=== PATIENT | female | born 1995 | race Caucasian/White ===

== ENCOUNTER 2025-01-20 12:05 | Outpatient (REF) | payer BC, SELFPAY ==
[2025-01-24 11:08] LABS: Age Gdln ACOG Testing Note (.); HPV Aptima Negative (Negative); IGP, Aptima HPV, rfx 16/18,45 Note (.)
== END 2025-01-20 12:06 | disposition home or self-care (01) ==
LOC: LAB 12:05
PROVIDERS: Visit Provider Physician Assistant
DX: Z01.419 Encounter for gynecological examination (general) (routine) without abnormal findings (principal)
CPT/HCPCS: 87624; 88175

== ENCOUNTER 2025-04-05 16:43 | Outpatient (OUT) | payer BC, SELFPAY ==
--- OUTSIDE RECORDS SUMMARY | 2025-01-21 11:10 | XMS_ITS | Continuity of Care Document ---
Author Organization [facility] Address [address] [place] [address] Phone Care Team Providers Care Hat Model Name Role Phone Miguel Rios Unavailable Unavailable [...] Diagnoses Date Provider Providers Copied on Encounter [facility], [address] [place] [address], [id number] , [place] tel: [phone] [facility] No Information 5 Visci DO Rivera. [address] [place] [address], [id number] , [place]. tel: [phone] [facility], [address] [place] [address], [id number] , [place] tel: [phone] [facility] Encounter for screening for respiratory tuberculosis 5 Visci DO Miguel. [address] [place] [address], [id number] , [place]. tel:+ [phone] [facility], [address] [place] [address], [id number] , [place] tel: [phone] [facility] No Information 4 Visci DO Miguel. [address] [place] [address], [id number] , [place]. tel: [phone] [facility], [address] [place] [address], [id number] , [place] tel:+ [phone] [facility] Lab Draw (chief complaint) Other specified disorders of pancreatic internal secretionSubclinical iodine-deficiency hypothyroidismEncount er for screening for other viral diseasesEncounter for screening for other infectious disease 4 Cynthia White. [address] [place], [place], [id number] , [place]. tel: [phone] [facility], [address] [place] [address], [place], [id number] , [place] tel: [phone] [facility] lab draw (chief complaint) Encounter for screening for other viral diseases 4 Cynthia White. [address] [place], [place], [id number] , [place]. tel: [phone] [facility], [address] [place] [address], [place], [id number] , [place] tel: [phone] [facility] No Information 4 Cynthia White. [address] [place] [address], [place], [id number] , [place]. tel: [phone] [facility], [address] [place] [address], [place], [id number] , [place] tel: [phone] [facility] Encounter for screening for respiratory tuberculosis 4 Cynthia White. [address] [place], [place], [id number] , [place]. tel: [phone] [facility], [address] [place] [address], [place], [id number] , [place] tel: [phone] [facility] Lab draw (chief complaint) Blood test prior to procedure 4 Cynthia White. [address] [place], [place], [id number] , [place]. tel: [phone] Referring Provider: Tenisha Leon [place]. [facility], [address] [place] [address], [place], [id number] , [place] tel: [phone] [facility] No Information 3 Cynthia White. [address] [place] [address], [place], [id number] , [place]. tel: [phone] [facility], [address] [place] [address], [place], [id number] , [place] tel: [phone] [facility] COVID Test (chief complaint) Encounter for screening for COVID-19 3 Cynthia White. [address] [place], [place], [id number] , [place]. tel: [phone] [facility], [address] [place] [address], [place], [id number] , [place] tel: [phone] [facility] Lab Draw (chief complaint) Encounter for antibody response examination 3 Cynthia White. [address] [place] [address], [place], [id number] , [place]. tel: [phone] [facility], [address] [place] [address], [id number] , [place] tel: [phone] [facility] lab (chief complaint) Other specified disorders of pancreatic internal secretion 3 Cynthia White. [address] [place], [place], [id number] , [place]. tel: [phone] [facility], [address] [place] [address], [id number] , [place] tel: [phone] [facility] Lab draw (chief complaint) Blood test prior to procedure 3 Cynthia White. [address] [place], [place], [id number] , [place]. tel: [phone] [facility], [address] [place] [address], [id number] , [place] tel: [phone] [facility] lab draw (chief complaint) Endocrine disorder 3 Cynthia White. [address] [place], [place], [id number] , [place]. tel: [phone] [facility], [address] [place] [address], [id number] , [place] tel: [phone] [facility] Encounter for screening for COVID-19 3 Visci DO Miguel. [address] [place] [address], [place], [id number] , [place]. tel: [phone] [facility], [address] [place] [address], [place], [id number] , [place] tel: [phone] [facility] Lab draw (chief complaint) Blood test prior to procedureEncounter for screening for COVID-19 3 Visci DO Miguel. [address] [place], [place], [id number] , [place]. tel: [phone] [facility], [address] [place] [address], [place], [id number] , [place] tel: [phone] [facility] No Information 3 Visci DO Miguel. [address] [place], [place], [id number] , [place]. tel: [phone] [facility], [address] [place] [address], [place], [id number] , [place] tel: [phone] [facility] No Information 3 Visci DO Miguel. [address] [place], [place], [id number] , [place]. tel: [phone] [facility], [address] [place] [address], [place], [id number] , [place] tel: [phone] [facility] No Information 2 Visci DO Miguel. [address] [place], [place], [id number] , [place]. tel: [phone] [facility], [address] [place], [place], [id number] , [place] tel: [phone] [facility] No Information 2 Visci DO Miguel. [address] [place], [place], [id number] , [place]. tel: [phone] [facility], [address] [place] [address], [place], [id number] , [place] tel: [phone] [facility] No Information 2 Visci DO Miguel. [address] [place], [place], [id number] , [place]. tel: [phone] [facility], [address] [place] [address], [place], 185153230 , [place] tel: [phone] [facility] Encounter for screening for respiratory tuberculosis 2 Visci DO Miguel. [address] [place], [place], [id number] , [place]. tel: [phone] [facility], [address] [place] [address], [place], 238808845 , [place] tel: [phone] [facility] Encounter for screening for respiratory tuberculosis 2 Visci DO Miguel. [address] [place], [place], 727342417 , [place]. tel: [phone] [facility], [address] [place] [address], [place], 349008380 , [place] tel: [phone] [facility] Encounter for screening for respiratory tuberculosis 2 Visci DO Miguel. [address] [place], [place], [id number] , [place]. tel: [phone] [facility], [address] [place], [place], 442322803 , [place] tel: [phone] [facility] No Information 1 Visci DO Miguel. [address] [place], [place], [id number] , [place]. tel: [phone] [facility], [address] [place] [address], [place], 323661321 , [place] tel: [phone] [facility] No Information 1 Visci DO Miguel. [address] [place], [place], [id number] , [place]. tel: [phone] [facility], [address] [place], [place], 245593058 , [place] tel: [phone] [facility] No Information 1 Visci DO Miguel. [address] [place], [place], [id number] , [place]. tel:[phone] Family History Family Member Type Diagnosis Age [...] Record Payers Payer name Insurance type Covered republican ID Authoriza tion(s) [place] [employer] [id number] [place] [employer] [id number] [place] [employer] [id number] [place] [employer] [id number] [place] [employer] [id number] [place] [employer] [id number] [place] [employer] [id number] Social History Type Description Quantity Date Captured [...] on due Goal PRAPARE ASSESSMENT. Due on J due Goal Tdap due Goal Hepatitis C [...] 2031 due Goal Influenza vaccine. Due on Ne due Goal Hepatitis C screening. Due o [...] PRAPARE ASSESSMENT. Due on N due Goal Depression screening. Due on due Goal Tdap due Goal Influenza vaccine. Due on Se due Goal Hep A. Due on du e Goal RLP. Due on due Goal Tdap Vaccine. Due on 2031 due Goal PRAPARE ASSESSMENT. Due on S due Goal PRAPARE ASSESSMENT. Due on S [...] du e Goal Tdap due Goal Tdap Vaccine. Due [...] Goal Tdap due Goal Tdap due Goal PAP. Due on due Goal PRAPARE ASSESSMENT. Due on due Goal Depression screening. Due on due Goal Hep A. Due on du e Goal Influenza vaccine. Due on Ne y due Goal RLP. Due on due [...] on du e Goal Tdap due Goal PRAPARE ASSESSMENT. Due on due Goal PAP. Due on due Goal Influenza vaccine. Due on Ne due Goal RLP. Due on due Goal PAP. Due on due Goal Tdap due Goal Depression screening. Due on due Goal Influenza vaccine. Due on [place] due Goal RLP. Due on due Goal [...]
--- OUTSIDE RECORDS SUMMARY | 2025-01-21 11:10 | XMS_ITS | Continuity of Care Document ---
Author Organization [facility] Address [address] [place] [address] Phone Care Team Providers Care Diversity Intern Name Role Phone Miguel Rios Unavailable Unavailable [...] Diagnoses Date Provider Providers Copied on Encounter [facility], [address] [place] [address], [id number] , [place] tel: [phone] [facility] No Information 5 Visci DO Rivera. [address] [place] [address], [id number] , [place]. tel: [phone] [facility], [address] [place] [address], [id number] , [place] tel: [phone] [facility] Encounter for screening for respiratory tuberculosis 5 Visci DO Miguel. [address] [place] [address], [id number] , [place]. tel:[phone] [facility], [address] [place] [address], [id number] , [place] tel: [phone] [facility] No Information 4 Visci DO Miguel. [address] [place] [address], [id number] , [place]. tel: [phone] [facility], [address] [place] [address], [id number] , [place] tel:[phone] [facility] Lab Draw (chief complaint) Other specified disorders of pancreatic internal secretionSubclinical iodine-deficiency hypothyroidismEncount er for screening for other viral diseasesEncounter for screening for other infectious disease 4 Cynthia White. [address] [place], [place], 924344060 , [place]. tel: [phone] [facility], [address] [place], [place], 496862772 , [place] tel: [phone] [facility] lab draw (chief complaint) Encounter for screening for other viral diseases 4 Cynthia White. [address] [place], [place], 793173382 , [place]. tel: [phone] [facility], [address] [place], [place], 531591823 , [place] tel: [phone] [facility] No Information 4 Cynthia White. [address] [place], [place], 725586852 , [place]. tel: [phone] [facility], [address] [place], 895804866 , [place] tel: [phone] [facility] Encounter for screening for respiratory tuberculosis 4 Cynthia White. [address] [place], [place], 718688754 , [place]. tel: [phone] [facility], [address] [place], [place], 466957578 , [place] tel: [phone] [facility] Lab draw (chief complaint) Blood test prior to procedure 4 Cynthia White. [address] [place], [place], 612717811 , [place]. tel: [phone] Referring Provider: Tenisha Leon SC. [facility], [address] [place], [place], 211239906 , [place] tel: [phone] [facility] No Information 3 Cynthia White. [address] [place], [place], 061649008 , [place]. tel: [phone] [facility], [address] [place], [place], 210802641 , [place] tel: [phone] [facility] COVID Test (chief complaint) Encounter for screening for COVID-19 3 Cynthia White. [address] [place], [place], 406197976 , [place]. tel: [phone] [facility], [address] [place], [place], 633390523 , [place] tel: [phone] [facility] Lab Draw (chief complaint) Encounter for antibody response examination 3 Cynthia White. [address] [place], [place], 216314383 , [place]. tel: [phone] [facility], [address] [place] [address], [id number] , [place] tel: [phone] [facility] lab (chief complaint) Other specified disorders of pancreatic internal secretion 3 Cynthia White. [address] [place], [place], 576709539 , [place]. tel: [phone] [facility], [address] [place] [address], [id number] , [place] tel: [phone] [facility] Lab draw (chief complaint) Blood test prior to procedure 3 Cynthia White. [address] [place], [place], 192727730 , [place]. tel: [phone] [facility], [address] [place] [address], [id number] , [place] tel: [phone] [facility] lab draw (chief complaint) Endocrine disorder 3 Cynthia White. [address] [place], [place], 209146482 , [place]. tel: [phone] [facility], [address] [place] [address], [id number] , [place] tel: [phone] [facility] Encounter for screening for COVID-19 3 Visci DO Miguel. [address] [place], [place], 679160281 , [place]. tel: [phone] [facility], [address] [place], [place], 722112866 , [place] tel: [phone] [facility] Lab draw (chief complaint) Blood test prior to procedureEncounter for screening for COVID-19 3 Visci DO Miguel. [address] [place], [place], 843816647 , [place]. tel: [phone] [facility], [address] [place], 774334966 , [place] tel: [phone] [facility] No Information 3 Visci DO Miguel. [address] [place], [place], 697328475 , [place]. tel: [phone] [facility], [address] [place], [place], 286540499 , [place] tel: [phone] [facility] No Information 3 Visci DO Miguel. [address] [place], [place], 011240886 , [place]. tel: [phone] [facility], [address] [place], [place], 368686486 , [place] tel: [phone] [facility] No Information 2 Visci DO Miguel. [address] [place], 935662333 , [place]. tel: [phone] [facility], [address] [place], [place], 018784270 , [place] tel: [phone] [facility] No Information 2 Visci DO Miguel. [address] [place], [place], 388967455 , [place]. tel: [phone] [facility], [address] [place], [place], 142141561 , [place] tel: [phone] [facility] No Information 2 Visci DO Miguel. [address] [place], [place], 679092795 , [place]. tel: [phone] [facility], [address] [place], [place], 763792522 , [place] tel: [phone] [facility] Encounter for screening for respiratory tuberculosis 2 Visci DO Miguel. [address] [place], [place], 709813526 , [place]. tel: [phone] [facility], [address] [place], [place], 020613532 , [place] tel: [phone] [facility] Encounter for screening for respiratory tuberculosis 2 Visci DO Miguel. [address] [place], [place], 941817310 , [place]. tel: [phone] [facility], [address] [place], [place], 066222551 , [place] tel: [phone] [facility] Encounter for screening for respiratory tuberculosis 2 Visci DO Miguel. [address] [place], [place], 535855559 , [place]. tel: [phone] [facility], [address] [place], [place], 127124955 , [place] tel: [phone] [facility] No Information 1 Visci DO Miguel. [address] [place], [place], 251539379 , [place]. tel: [phone] [facility], [address] [place], 770178493 , [place] tel: [phone] [facility] No Information 1 Visci DO Miguel. [address] [place], [place], 040298884 , [place]. tel: [phone] [facility], [address] [place], [place], 924961258 , [place] tel: [phone] [facility] No Information 1 Visci DO Miguel. [address] [place], [place], 115794375 , [place]. tel:[phone] Family History Family Member Type Diagnosis Age [...] Record Payers Payer name Insurance type Covered constitution party ID Authoriza tion(s) [place] [id number] [place] [employer] [id number] [place] [employer] [id number] [place] [employer] [id number] [place] [id number] [place] [id number] [place] [employer] [id number] Social History Type Description Quantity Date Captured [...] du e Goal Influenza vaccine. Due on [place] due Goal Unhealthy drug use screening . [...] du e Goal Influenza vaccine. Due on Id y due Goal RLP. Due on due Goal Tdap Vaccine. Due on 2031 due Goal PAP. Due on due Goal Influenza vaccine. Due on Id r due Goal Depression screening. Due on due Goal Tdap due Goal PRAPARE ASSESSMENT. Due on due Goal Hep A. Due on du e Goal RLP. Due on due Goal Tdap Vaccine. Due on 2031 due Goal Influenza vaccine. Due on Id due Goal Tdap due Goal PRAPARE ASSESSMENT. [...] on due Goal Influenza vaccine. Due on Md due Goal RLP. Due on due Goal [...]
--- OUTSIDE RECORDS SUMMARY | 2025-01-21 11:10 | XMS_ITS | Continuity of Care Document ---
Author Organization [facility] Address [address] [place] [address] Phone Care Team Providers Care Flooring Salesperson Name Role Phone Miguel Rios Unavailable Unavailable [...] Diagnoses Date Provider Providers Copied on Encounter [facility], [address] [place] [address], [id number] , [place] tel: [phone] [facility] No Information 5 Visci DO Rivera. [address] [place] [address], [id number] , [place]. tel: [phone] [facility], [address] [place] [address], [id number] , [place] tel: [phone] [facility] Encounter for screening for respiratory tuberculosis 5 Visci DO Miguel. [address] [place] [address], [id number] , [place]. tel:[phone] [facility], [address] [place] [address], [id number] , [place] tel: [phone] [facility] No Information 4 Visci DO Miguel. [address] [place] [address], [id number] , [place]. tel: [phone] [facility], [address] [place] [address], [id number] , [place] tel:+ [phone] [facility] Lab Draw (chief complaint) Other specified disorders of pancreatic internal secretionSubclinical iodine-deficiency hypothyroidismEncount er for screening for other viral diseasesEncounter for screening for other infectious disease 4 Cynthia White. [address] [place], [place], 605362631 , [place]. tel: [phone] [facility], [address] [place], [place], 331331946 , [place] tel: [phone] [facility] lab draw (chief complaint) Encounter for screening for other viral diseases 4 Cynthia White. [address] [place], [place], 600143237 , [place]. tel: [phone] [facility], [address] [place], [place], 628941169 , [place] tel: [phone] [facility] No Information 4 Cynthia White. [address] [place], [place], 757389497 , [place]. tel: [phone] [facility], [address] [place], [place], 531535189 , [place] tel: [phone] [facility] Encounter for screening for respiratory tuberculosis 4 Cynthia White. [address] [place], [place], 065528589 , [place]. tel: [phone] [facility], [address] [place], [place], [id number] , [place] tel: [phone] [facility] Lab draw (chief complaint) Blood test prior to procedure 4 Cynthia White. [address] [place], [place], [id number] , [place]. tel: [phone] Referring Provider: Tenisha Leon PA. [facility], [address] [place], [place], [id number] , [place] tel: [phone] [facility] No Information 3 Cynthia White. [address] [place], [place], [id number] , [place]. tel: [phone] [facility], [address] [place], [place], 869146491 , [place] tel: [phone] [facility] COVID Test (chief complaint) Encounter for screening for COVID-19 3 Cynthia White. [address] [place], [place], 772092238 , [place]. tel: [phone] [facility], [address] [place], [place], [id number] , [place] tel: [phone] [facility] Lab Draw (chief complaint) Encounter for antibody response examination 3 Cynthia White. [address] [place], [place], [id number] , [place]. tel: [phone] [facility], [address] [place] [address], [id number] , [place] tel: [phone] [facility] lab (chief complaint) Other specified disorders of pancreatic internal secretion 3 Cynthia White. [address] [place], [place], [id number] , [place]. tel: [phone] [facility], [address] [place] [address], [id number] , [place] tel: [phone] [facility] Lab draw (chief complaint) Blood test prior to procedure 3 Cynthia White. [address] [place], [place], 616832752 , [place]. tel: [phone] [facility], [address] [place] [address], [id number] , [place] tel: [phone] [facility] lab draw (chief complaint) Endocrine disorder 3 Cynthia White. [address] [place], [place], 763333203 , [place]. tel: [phone] [facility], [address] [place] [address], [id number] , [place] tel: [phone] [facility] Encounter for screening for COVID-19 3 Visci DO Miguel. [address] [place], [place], [id number] , [place]. tel: [phone] [facility], [address] [place], [place], 798827490 , [place] tel: [phone] [facility] Lab draw (chief complaint) Blood test prior to procedureEncounter for screening for COVID-19 3 Visci DO Miguel. [address] [place], [place], 737995926 , [place]. tel: [phone] [facility], [address] [place], [place], [id number] , [place] tel: [phone] [facility] No Information 3 Visci DO Miguel. [address] [place], [place], 219332205 , [place]. tel: [phone] [facility], [address] [place], [place], 000224806 , [place] tel: [phone] [facility] No Information 3 Visci DO Miguel. [address] [place], [place], 492338505 , [place]. tel: [phone] [facility], [address], [place], 838425815 , [place] tel: [phone] [facility] No Information 2 Visci DO Miguel. [address] [place], [place], [id number] , [place]. tel: [phone] [facility], [address] [place], [place], 913302540 , [place] tel: [phone] [facility] No Information 2 Visci DO Miguel. [address] [place], [place], 418948639 , [place]. tel: [phone] [facility], [address] [place], [place], 732525772 , [place] tel: [phone] [facility] No Information 2 Visci DO Miguel. [address] [place], [place], [id number] , [place]. tel: [phone] [facility], [address] [place], [place], 463305119 , [place] tel: [phone] [facility] Encounter for screening for respiratory tuberculosis 2 Visci DO Miguel. [address] [place], [place], [id number] , [place]. tel: [phone] [facility], [address] [place], [place], 782687248 , [place] tel: [phone] [facility] Encounter for screening for respiratory tuberculosis 2 Visci DO Miguel. [address] [place], [place], [id number] , [place]. tel: [phone] [facility], [address] [place], [place], 168484157 , [place] tel: [phone] [facility] Encounter for screening for respiratory tuberculosis 2 Visci DO Miguel. [address] [place], [place], [id number] , [place]. tel: [phone] [facility], [address] [place], [place], 995971917 , [place] tel: [phone] [facility] No Information 1 Visci DO Miguel. [address] [place], [place], [id number] , [place]. tel: [phone] [facility], [address] [place], [place], 354074558 , [place] tel: [phone] [facility] No Information 1 Visci DO Miguel. [address] [place], [place], 623405442 , [place]. tel: [phone] [facility], [address] [place], [place], 940042754 , [place] tel: [phone] [facility] No Information 1 Visci DO Miguel. [address] [place], [place], [id number] , [place]. tel:[phone] Family History Family Member Type Diagnosis Age [...] Insurance type Covered libertarian ID Authoriza tion(s) Mila Doce BL [id number] Mila Doce BL [id number] Mila Doce BL [id number] Mila Doce BL [id number] Mila Doce BL [id number] Mila Doce BL [id number] Mila Doce BL [id number] Social History Type Description Quantity Date Captured [...] du e Goal Influenza vaccine. Due on Mt due Goal Unhealthy drug use screening . [...] du e Goal Influenza vaccine. Due on Mt y due Goal RLP. Due on due Goal Tdap Vaccine. Due on 2031 due Goal PAP. Due on due Goal Influenza vaccine. Due on Mt r due Goal Depression screening. Due on due Goal Tdap due Goal PRAPARE ASSESSMENT. Due on due Goal Hep A. Due on du e Goal RLP. Due on due Goal Tdap Vaccine. Due on 2031 due Goal Influenza vaccine. Due on Mt due Goal Tdap due Goal PRAPARE ASSESSMENT. [...]
--- OUTSIDE RECORDS SUMMARY | 2025-03-30 08:50 | XMS_ITS | Encounter Summary ---
Author Organization [facility] Address [address] [facility] [place] [address] Care Team Providers Care Intelligence Director Name Role Phone Unavailable Primary Care Provider Unavailabl e Reason for Visit * Reason Comments Routine Visit Encounter Details Date Type Department Care Team (Latest Contact Info) Description 03/30/2025 8:50 AM EDT Routine [facility] [address] [facility] [place] [phone] Christy Schwartz PA [address] [facility] [address] [place], [place] [address] Second trimester ; 27 weeks gestation of [...] this encounter Progress Notes * Belgica Scherer INTERNET MARKETING SPECIALIST - 03/30/2025 8:50 AM EDT Reason for Appointment: Patient ID: Kevin Conley is a 29 y.o. female who presents for Routine Visit Patient presents today for Return OB appointment. MEDICATIONS Current Outpatient Medications Medication Instructions Alcohol Swabs (Alcohol Prep Pad) 70 % pads 1 Pad, Topical, Daily, Use four times daily to check FSBS. Blood Glucose Monitoring Suppl ([employer] Glucometer) w/Device kit 1 kit, Does not [...] EDT Routine [facility] [address] [place] [address] Cain Donaldson, DO [address] [place] [address] Scheduled Orders Name Type Priority Associated Diagnoses [...]
--- OUTSIDE RECORDS SUMMARY | 2025-03-30 13:30 | XMS_ITS | Encounter Summary ---
Author Organization [facility] [employer] [facility] Address [id number] [address] [place] [address] Care Team Providers Care Theater Projectionist Name Role Phone Unavailable Primary Care Provider Unavailabl e Reason for Referral * Medication Prior Authorization - Closed Specialty Diagnoses / Procedures Referred By Contgonzalez t Referred To Contact Diagnoses Insulin controlled gestational diabetes mellitus (GDM) in second trimester Prediabetes in mother during Sintia Martinez APRN-CNP [address] [place] [address] Phone: tel: fax: Referral ID Status Reason Start Date Expiration Date Visits Re quested Visits Authorized [id number] Closed 1 1 Encounter Details Date Type Department Care Team (Late st Contact Info) Description 03/30/2025 1:30 PM EDT Telemedicine Maternal- Medicine at [facility] [address] [place] [address] Sintia Martinez APRN-CNP [address] [place] [address] Insulin controlled gestational diabetes mellitus (GDM) in [...] this encounter Progress Notes * Sintia Martinez, UMM-GLAZE MIXER - 03/30/2025 1:30 PM EDT REASON FOR OFFICE VISIT: Video Visit via Real-time Synchronous Audiovisual Provider Location: [facility]- MEDICINE AT [address] [phone] Patient Location: Patient's home Video Visit Consent [...] that there are some limitations compared to tpxs-qi-kpab evaluations. The patient consented to the presence [...] each meal., Disp: , Rfl: blood-glucose meter [facility], 4 (four) times a day. Use to [...] route., Disp: , Rfl: lancets (LANCETS,ULTRA THIN) [facility], Use to check blood sugar 4 times daily. Fasting in the morning, and 1 hour after each meal., Disp: , Rfl: PNV no.153/FA/om3/dha/epa/fish ( GUMMIES ORAL), Take 2 tablets by mouth in the morning., Disp: , Rfl: LABS: Lab Results Component Value Date CREATININE 0.73 01/06/2016 Lab Results Component Value Date TSH 3.31 11/24/2020 No results found for: [id number] Lab Results Component Value Date CREATININE 0.73 [...] [email or web address] or by fax to: [phone] TIME OF CONSULTATION: 15 minutes with the patient, >50% in discussion and counseling, coordination of care which was [id number], review of records and communication back to referring provider. HOWARD Whitman 03/30/25 1344 documented in this encounter Plan of Treatment Upcoming Encounters Date Type Department Care Team (Late st Contact Info) Description 04/14/2025 8:00 AM EDT Appointment Maternal Medicine [place] [address] [facility] 4 [place] [address] 04/25/2025 11:30 AM EDT Telemedicine Maternal- Medicine at [facility] [place] [address] [place] [address] Devika Pulido PA-C [address] [address] documented as of this encounter Visit Diagnoses Diagnosis Insulin controlled gestational diabetes mellitus (GDM) in second trimester- Primary Recurrent major depressive disorder, in partial remission Prediabetes in mother during documented in this encounter Additional Health Concerns Assessment Noted Time PHQ-9 Depression Total Score: 2 07/03/20 16 9:00 AM EDT documented as of this encounter
--- OUTSIDE RECORDS SUMMARY | 2025-04-05 16:49 | XMS_ITS | Encounter Summary ---
Author Organization [employer] [facility] tem Address [id number] [address] [place] [address] Care Team Providers Care Field Sales Trainer Name Role Phone Unavailable Primary Care Provider Unavailabl e Encounter Details Date Type Department Care Team (Latest Contact Info) Description 03/30/2025 Travel Social History Tobacco Use Types Packs/Day Years [...] on file documented as of this encounter Plan of Treatment Upcoming Encounters Date Type Department Care Team (Late st Contact Info) Description 04/14/2025 8:00 AM EDT Appointment Maternal Medicine [place] [address] [facility] [address] [place] [address] 04/25/2025 11:30 AM EDT Telemedicine Maternal- Medicine at [facility] [address] [place] [phone] Devika Pulido, JASON [address] [address] documented as of this encounter Visit Diagnoses Not on filedocumented in this encounter Additional Health Concerns Assessment Noted Time PHQ-9 Depression Total Score: 2 07/03/20 16 9:00 AM EDT documented as of this encounter
--- OUTSIDE RECORDS SUMMARY | 2025-04-05 16:49 | XMS_ITS | Encounter Summary ---
Author Organization [facility] Address [address] [place] [address] Care Team Providers Care Molding Machine Setter Name Role Phone Unavailable Primary Care Provider Unavailabl e Encounter Details Date Type Department Care Team (Late st Contact Info) Description 11/12/2024 Abstract [facility] [address] [facility] [place] [phone] Cain Donaldson DO [address] [place] [address] Karin rPieto, [facility]11 Social History Tobacco Use Types Packs/Day Years Used Date Smoking Tobacco: Never Assessed Comments Unknown Sex and Gender Information Value Date Recorded Sex Assigned at Female 11/24/2024 3:01 PM EST Legal Sex Female 10:22 AM EST Gender Identity Female 11/24/2024 3:01 PM EST Sexual Orientation Not on file documented as of this encounter Plan of Treatment Upcoming Encounters Date Type Department Care Team (Late st Contact Info) Description 04/18/2025 10:10 AM EDT Routine [facility] [address] [facility] [place] [phone] Cain Donaldson, [address] [place] [address] documented as of this encounter Visit Diagnoses Not on filedocumented in this encounter
--- OUTSIDE RECORDS SUMMARY | 2025-04-05 16:49 | XMS_ITS | Encounter Summary ---
Author Organization [facility] Address [address] [facility] [place] [address] Care Team Providers Care Senior Electronics Design Engineer Name Role Phone Unavailable Primary Care Provider Unavailabl e Encounter Details Date Type Department Care Team (Late Contact Info) Description 03/30/2025 Bamboo flowsheet [facility] [address] [place] [address] [place] [phone] Christy Schwartz PA [address] [place] [address] Dr [place], [facility] Social History Tobacco Use Types Packs/Day Years [...] Encounters Date Type Department Care Team (Late Contact Info) Description 04/18/2025 10:10 AM EDT Routine [facility] [address] [facility] [address] Cain Donaldson DO [address] [place] [address] Dr [place], [place] [id number] documented as of this encounter Goals Goal Patient Goal Type Associated Problems Recent Progress Patient-Stated? Author Reminders Care Plan OB Reminders No Open Scheduling, Background documented as of this encounter Visit Diagnoses Not on filedocumented in this encounter Additional Health Concerns Active Problems Noted Date Diagnosed Date OB Reminders 11/26/2024 documented as of this encounter
--- OUTSIDE RECORDS SUMMARY | 2025-04-05 16:49 | XMS_ITS | Encounter Summary ---
Author Organization [facility] Address [address] [place] [address] Care Team Providers Care Copy Lathe Tender Name Role Phone Unavailable Primary Care Provider Unavailabl e Encounter Details Date Type Department Care Team (Late Contact Info) Description 01/10/2025 Abstract [facility] [address] [facility] [place] [phone] Cain Donaldson DO [address] [place] [address] Karin [place], [place] [id number] Social History Tobacco Use Types Packs/Day Years [...] AM EDT Routine [facility] [address] [facility] [place] [phone] Cain Donaldson DO [facility] [address] [place], [place] [id number] documented as of this encounter Goals Goal Patient Goal Type Associated Problems Recent Progress Patient-Stated? Author Reminders Care Plan OB Reminders No Open Scheduling, Background documented as of this encounter Visit Diagnoses Not on filedocumented in this encounter Additional Health Concerns Active Problems Noted Date Diagnosed Date OB Reminders 11/26/2024 documented as of this encounter
--- OUTSIDE RECORDS SUMMARY | 2025-04-05 16:49 | XMS_ITS | Clinical Summary ---
Author Organization [facility] Address [address] [place] [address] Care Team Providers Care Kickboxing Instructor Name Role Phone Unavailable Primary Care Provider Unavailabl e Encounters Date Type Department Care Team Description 02/08/2025 6:04 PM EDT - 02/08/2025 11:59 PM EDT Hospital Encounter [facility] [address] [place] [address] Discharge Disposition: Home or Self Care from Last 3 Months Social History Tobacco Use Types Packs/Day Years Used Date Smoking Tobacco: Never Assessed Comments Unknown Sex and Gender Information Value Date Recorded Sex Assigned at Not on file Legal Sex Female 6:18 PM EST Gender Identity Not on file Sexual Orientation Not on file Plan of Treatment Health Maintenance Due Date Last Done Comments Depression Screen 2005 Varicella vaccine (1 of 2 - 13+ 2-dose series) 2006 DTaP/Tdap/Td vaccine (1 - Tdap) 2012 Hepatitis B vaccine (1 of 3 - 19+ 3-dose series) 2012 Pap smear 2014 Cervical cancer screen 2023 HPV (without or with Pap) 2023 COVID-19 Vaccine ( - 2023-2 5 season) 2024 Flu vaccine (Season Ended) 2025 09/08/2023 HIV screen Completed 12/23/2024, 01/11/2021 Hepatitis C screen Completed 12/23/2024, 01/11/2021 HPV vaccine Aged Out No longer eligi ble based on patient's age to complete this topic Hepatitis A vaccine Aged Out No longe r eligible based on patient's age to complete this topic Hib vaccine Aged Out No longer eligi ble based on patient's age to complete this topic Meningococcal (ACWY) vaccine Aged Out No longer eligible based on patient's age to complete this topic Meningococcal B vaccine Aged Out No l onger eligible based on patient's age to complete this topic Pneumococcal 0-49 years Vaccine Aged Out No longer eligible b ased on patient's age to complete this topic Polio vaccine Aged Out No longer elig ible based on patient's age to complete this topic Procedures Procedure Name Priority Date/Time Associated Diagnosis Comments ALPHA FETOPROTEIN, MATERNAL Routine 02/08/2025 6:07 PM EDT HIV SCREEN Routine 12/23/2024 6:10 PM EST HEPATITIS C ANTIBODY Routine 12/23/2024 6:10 PM EST from Last 3 Months or Most Recently Relevant to Health Maintenance Results * Alpha Fetoprotein, Maternal (02/08/2025 6:07 PM EDT) Due Date SEE NOTE 02/08/2025 6:07 PM EDT [facility] Comment: Results for Estimated Due Date: 06 24 25 Determined by Other 02/08/2025 6:07 PM EDT [facility] AFP (Alpha Fetoprotein) 41 ng/mL 02/08/2025 6:07 PM EDT [facility] AFP Mom 0.85 02/08/2025 6:07 PM EDT [facility] AFP Interp Screen Neg 02/08/2025 6:07 PM EDT [facility] Comment: (NOTE) INTERPRETATION: SCREEN NEGATIVE for open spina bifida Neural Tube Defects (NTD) Negative Pre-Test Post-Test Cutoff Neural Tube Defects Risks 1:1030 < 1:24442 1:250 Comments: The risk of an open neural tube defect is less than the screening cut-off. This test was developed and its performance characteristics determined by [facility]. It has not been cleared or approved by the [place] Food and Drug Administration. This test was performed in a CLIA certified laboratory and is intended for clinical purposes. [age] 02/08/2025 6:07 PM EDT [facility] Patient Weight 231.0 lbs. 02/08/2025 6:07 PM EDT [facility] Gestational Age 20 wks, 4 days 02/08/2025 6:07 PM EDT [facility] Number of Fetuses Hernandes 025 6:07 PM EDT [facility] Race Nonblack 02/08/2025 6:07 PM EDT [facility] Insulin Req Diabetes No 02/08/2025 6:07 PM EDT [facility] Smoking No 02/08/2025 6:07 PM EDT [facility] History No 02/08/2025 6:07 PM EDT [facility] AFP Specimen See Note 02/08/2025 6:07 PM EDT [facility] Comment: (NOTE) Initial sample Performed By: [facility] [address] [place] [address] Letter Of Credit Document Examiner: Jose Joseph MD, PhD CLIA Number: [id number] 02/08/2025 6:07 PM EDT 02/08/2025 6:09 PM EDT Christy Schwartz PA-C CHEMISTRY ORDERABLES Final Resu lt [facility] [address] [place], [place] [id number] [place] [address] [facility] [address] [phone] * Hepatitis C Antibody (12/23/2024 6:10 PM EST) Hepatitis C Ab NONREACTIVE NONREACTIVE 12/23/19 6:10 PM EST [facility] Comment: The hepatitis C procedure used in our laboratory is a Chemiluminescent test specific for three recombinant HCV antigens. A negative anti-HCV result indicates that the antibodies to hepatitis C virus are not present at this time. Individuals with reactive anti-HCV should be considered infected and infectious until proven otherwise. Confirmation of all equivocal or reactive results is recommended by ordering HCV RNA by PCR. 12/23/2024 6:10 PM EST 12/23/2024 6:12 PM EST Cain Donaldson MD IMMUNOLOGY ORDERABLES Fin al Result Performing Organization Address City/[facility]/ZIP Co de Phone Number [facility] [address] [place] [address], [facility] [phone] [employer] [address] [place] [address], [facility] [phone] * HIV Screen (12/23/2024 6:10 PM EST) HIV Ag/Ab NONREACTIVE NONREACTIVE 12/23/2024 6:10 PM EST [employer] Comment: No laboratory evidence of HIV infection. If acute HIV infection is suspected, consider testing for HIV-1 RNA. 12/23/2024 6:10 PM EST 12/23/2024 6:12 PM EST Cain Donaldson MD IMMUNOLOGY ORDERABLES Fin al Result Performing Organization Address [facility] Co de Phone Number [facility] [address] [place] [address], [facility] [phone] [employer] [address] [place] [address], [facility] [phone] from Last 3 Months or Most Recently Relevant to Health Maintenance Insurance
--- OUTSIDE RECORDS SUMMARY | 2025-04-05 16:49 | XMS_ITS | Encounter Summary ---
Author Organization [facility] Address [address] [place] [address] Care Team Providers Care Arboreal Scientist Name Role Phone Unavailable Primary Care Provider [...] AM EDT Routine [facility] [address] [facility] [place] [phone] Cain Donaldson, DO [address] [facility] [place] [address] documented as of this encounter Goals Goal Patient Goal Type Associated Problems Recent Progress Patient-Stated? Author Reminders Care Plan OB Reminders No Open Scheduling, Background documented as of this encounter Visit Diagnoses Not on filedocumented in this encounter Additional Health Concerns Active Problems Noted Date Diagnosed Date OB Reminders 11/26/2024 documented as of this encounter
--- OUTSIDE RECORDS SUMMARY | 2025-04-05 16:49 | XMS_ITS | Encounter Summary ---
Author Organization [facility] Address [address] [place] [address] Care Team Providers Care Metal Washing Machine Operator Name Role Phone Unavailable Primary Care Provider Unavailabl e Encounter Details Date Type Department Care Team (Late Contact Info) Description 01/27/2025 Orders Only [facility] [address] [place] [phone] Damaris Lopez LPN [address] [employer] [facility] [place] [address] Social History Tobacco Use Types Packs/Day Years [...] AM EDT Routine [facility] [address] [place] [place] [phone] Cain Donaldson DO [address] [facility] [address] [place], [place] [phone] documented as of this encounter Goals Goal Patient Goal Type Associated Problems Recent Progress Patient-Stated? Author Reminders Care Plan OB Reminders No Open Scheduling, Background documented as of this encounter Procedures Procedure Name Priority Date/Time Associated Diagnosis Comments PAP SMEAR Routine 01/20/2025 12:00 AM EDT documented in this encounter Results * Pap Smear (01/20/2025 12:00 AM EDT) Swab Cervical swab / Unknown us [facility] Nurse LAB CYTOLOGY ORDERABLES Final Result [facility] documented in this encounter Visit Diagnoses Not on filedocumented in this encounter Additional Health Concerns Active Problems Noted Date Diagnosed Date OB Reminders 11/26/2024 documented as of this encounter
--- OUTSIDE RECORDS SUMMARY | 2025-04-05 16:49 | XMS_ITS | Encounter Summary ---
Author Organization [facility] tem Address [id number] [address] [place] [address] Care Team Providers Care Channeling Machine Runner Name Role Phone Unavailable Primary Care Provider Unavailabl e Encounter Details Date Type Department Care Team (Late st Contact Info) Description 02/17/2025 Orders Only Maternal- Medicine at [facility] [address] [place] [phone] Christy Prado LPN Insulin controlled gestational diabetes mellitus (GDM) in second trimester; Prediabetes in mother during ; 20 weeks gestation of ; Choroid plexus cyst of fetus affecting care of mother, antepartum, single or unspecified fetus; Heterozygous factor V Leiden affecting in second trimester, antepartum; Severe obesity due to excess calories affecting , antepartum ([facility]); Bipolar disorder, in full remission, most recent episode depressed Social History Tobacco Use Types Packs/Day Years [...] 04/14/2025 8:00 AM EDT Appointment Maternal Medicine [place] [address] [facility] [address] [place] [phone] 04/25/2025 11:30 AM EDT Telemedicine Maternal- Medicine at [facility] [address] [place] [phone] Devika Pulido PA-C [address] [address] documented as of this encounter Procedures Procedure Name Priority Date/Time Associated Diagnosis Comments UNLISTED LAB TEST Routine 02/08/2025 Insulin controlled gestational diabetes mellitus (GDM) in second trimester Prediabetes in mother during 20 weeks gestation of Choroid plexus cyst of fetus affecting care of mother, antepartum, single or unspecified fetus Heterozygous factor V Leiden affecting in second trimester, antepartum Severe obesity due to excess calories affecting , antepartum ([facility]) Bipolar disorder, in full remission, most recent episode depressed documented in this encounter Results * Unlisted Lab Test (02/08/2025) 02/08/2025 us Gricelda Chadwick MD LAB BLOOD ORDERABLES Final Resul t [facility] documented in this encounter Visit Diagnoses Diagnosis Insulin controlled gestational diabetes mellitus (GDM) in second trimester Prediabetes in mother during 20 weeks gestation of Choroid plexus cyst of fetus affecting care of mother, antepartum, single or unspecified fetus Heterozygous factor V Leiden affecting in second trimester, antepartum Severe obesity due to excess calories affecting , antepartum ([facility]) Bipolar disorder, in full remission, most recent episode depressed documented in this encounter Additional Health Concerns Assessment Noted Time PHQ-9 Depression Total Score: 2 07/03/20 16 9:00 AM EDT documented as of this encounter
--- OUTSIDE RECORDS SUMMARY | 2025-04-05 16:49 | XMS_ITS | Encounter Summary ---
Author Organization [facility] tem Address [id number] [address] [place] [address] Care Team Providers Care Systems Trainer Name Role Phone Unavailable Primary Care Provider Unavailabl e Encounter Details Date Type Department Care Team (Late Contact Info) Description 12/30/2024 Orders Only Maternal- Medicine at [facility] [address] [place] [address] Ref Prov, [place] [address] Social History Tobacco Use Types Packs/Day Years Used Date Smoking Tobacco: Former Cigarettes Smokeless Tobacco: Never Alcohol Use Standard Drinks/Week Comments Not Currently 0 (1 standard drink = 0.6 oz pur e alcohol) Socially Childcare Answer Date Recorded Childcare Unknown 04/13/2019 Employment Answer Date Recorded Employment Unknown 04/13/2019 Purpose - Life Answer Date Recorded Purpose [...] 04/14/2025 8:00 AM EDT Appointment Maternal Medicine [place] [address] [facility] [address] [place] [phone] 04/25/2025 11:30 AM EDT Telemedicine Maternal- Medicine at [facility] [address] [place] [phone] Devika Pulido, JASON [address] [address] documented as of this encounter Visit Diagnoses Not on filedocumented in this encounter Additional Health Concerns Assessment Noted Time PHQ-9 Depression Total Score: 2 07/03/20 16 9:00 AM EDT documented as of this encounter
--- OUTSIDE RECORDS SUMMARY | 2025-04-05 16:49 | XMS_ITS | Encounter Summary ---
Author Organization [facility] Address [address] [place] [address] Care Team Providers Care American Indian Policy Specialist Name Role Phone Unavailable Primary Care Provider Unavailabl e Encounter Details Date Type Department Care Team (Late st Contact Info) Description 03/18/2025 Abstract [facility] OB [address] [facility] [place] [phone] Yue Dumont MA Social History Tobacco Use Types Packs/Day Years [...] Description 04/18/2025 10:10 AM EDT Routine [facility] OB [address] [place] [address] [place] [phone] Cain Donaldson DO [address] [facility] [place] [address] documented as of this encounter Goals Goal Patient Goal Type Associated Problems Recent Progress Patient-Stated? Author Reminders Care Plan OB Reminders No Open Scheduling, Background documented as of this encounter Visit Diagnoses Not on filedocumented in this encounter Additional Health Concerns Active Problems Noted Date Diagnosed Date OB Reminders 11/26/2024 documented as of this encounter
--- OUTSIDE RECORDS SUMMARY | 2025-04-05 16:49 | XMS_ITS | Encounter Summary ---
Author Organization [facility] tem Address [id number] [address] [place] [address] Care Team Providers Care Finance Controller Name Role Phone Unavailable Primary Care Provider Unavailabl e Encounter Details Date Type Department Care Team (Late st Contact Info) Description 01/27/2025 Orders Only Maternal- Medicine at [facility] [address] [place] [phone] Sintia Martinez, CURAM DEVELOPER-ORNAMENT STITCHER [address] [place] [address] Social History Tobacco Use Types Packs/Day Years [...] got money to buy more. Never True 01/26/2025 Within the past 12 months th e food we bought just didn't last and we didn't have money to get more. Never True 01/26/2025 Purpose - Life Answer Date Recorded Purpose [...] 04/14/2025 8:00 AM EDT Appointment Maternal Medicine [place] [address] [facility] [address] [place] [address] 04/25/2025 11:30 AM EDT Telemedicine Maternal- Medicine at [facility] [address] [place] [address] Devika Pulido, PA-C [address] [address] documented as of this encounter Visit Diagnoses Not on filedocumented in this encounter Additional Health Concerns Assessment Noted Time PHQ-9 Depression Total Score: 2 07/03/20 16 9:00 AM EDT documented as of this encounter
--- OUTSIDE RECORDS SUMMARY | 2025-04-05 16:49 | XMS_ITS | Encounter Summary ---
Author Organization [facility] Address [address] [place] [address] Care Team Providers Care Grab Jack Worker Name Role Phone Unavailable Primary Care Provider Unavailabl e Encounter Details Date Type Department Care Team (Late Contact Info) Description 11/26/2024 Abstract [facility] [address] [facility] [place] [phone] Cain Donaldson DO [address] [place] [address] [place], [place] [phone] Social History Tobacco Use Types Packs/Day Years [...] AM EDT Routine [facility] [address] [facility] [place] [phone] Cain Donaldson DO [facility] [address], [place] [phone] documented as of this encounter Goals Goal Patient Goal Type Associated Problems Recent Progress Patient-Stated? Author Reminders Care Plan OB Reminders No Open Scheduling, Background documented as of this encounter Visit Diagnoses Not on filedocumented in this encounter Additional Health Concerns Active Problems Noted Date Diagnosed Date OB Reminders 11/26/2024 documented as of this encounter
--- OUTSIDE RECORDS SUMMARY | 2025-04-05 16:49 | XMS_ITS | Encounter Summary ---
Author Organization [facility] Address [address] [place] [address] Care Team Providers Care Service And Repair Supervisor Name Role Phone Unavailable Primary Care Provider Unavailabl e Encounter Details Date Type Department Care Team (Late Contact Info) Description 12/24/2024 Abstract [facility] [address] [facility] [place] [phone] Cain Donaldson DO [address] [place] [address] [place], [place] [phone] Social History Tobacco Use Types Packs/Day Years [...] EDT Routine [facility] [address] [facility] [place] [phone] Cain Donaldson DO [facility] [address] [place], [place] [phone] documented as of this encounter Goals Goal Patient Goal Type Associated Problems Recent Progress Patient-Stated? Author Reminders Care Plan OB Reminders No Open Scheduling, Background documented as of this encounter Visit Diagnoses Not on filedocumented in this encounter Additional Health Concerns Active Problems Noted Date Diagnosed Date OB Reminders 11/26/2024 documented as of this encounter
--- OUTSIDE RECORDS SUMMARY | 2025-04-05 16:49 | XMS_ITS | Encounter Summary ---
Author Organization [facility] tem Address [facility]-[id number] [address] [place] [address] Care Team Providers Care Sales Office Assistant Name Role Phone Unavailable Primary Care Provider Unavailabl e Encounter Details Date Type Department Care Team (Late st Contact Info) Description 03/22/2025 Telephone Maternal- Medicine at [facility] [address] [place] [phone] Sonya Lomax, RN Social History Tobacco Use Types Packs/Day Years [...] on file documented as of this encounter Miscellaneous Notes * Telephone Encounter - Sonya Lomax RN - 03/22/2025 5:45 PM EDT Called pt and left a message with her that we reviewed her blood sugars and although she had some elevations there was no pattern to her elevations and some may have been food related. No changes forthis week and she is to stay on her current insulin dosage for this week and send in new blood sugars next week. documented in this encounter Plan of Treatment Upcoming Encounters Date Type Department Care Team (Late st Contact Info) Description 04/14/2025 8:00 AM EDT Appointment Maternal Medicine [place] [address] [facility] [address] [place] [address] 04/25/2025 11:30 AM EDT Telemedicine Maternal- Medicine at [facility] [address] [place] [address] Devika Pulido PA-C [address] [address] documented as of this encounter Visit Diagnoses Not on filedocumented in this encounter Additional Health Concerns Assessment Noted Time PHQ-9 Depression Total Score: 2 07/03/20 16 9:00 AM EDT documented as of this encounter
--- OUTSIDE RECORDS SUMMARY | 2025-04-05 16:49 | XMS_ITS | Clinical Summary ---
Author Organization [facility] Address [address] [place] [address] Care Team Providers Care Automotive Engineer Name Role Phone Unavailable Primary Care Provider Unavailabl e Allergies No known active allergies Medications Alcohol Swabs (Alcohol Prep Pad) 70 % padsIndications :Elevated glucose tolerance test, resulting from in vitro fertilization, antepartum Apply 1 Pad topically Daily Use four times daily to check FSBS. 150 each 3 5 Active Blood Glucose Monitoring Suppl (D-Care Glucometer) w/Device kitIndications: Elevated glucose tolerance test, resulting from in vitro fertilization, antepartum 1 kit Daily Use four times daily to check FSBS. In the morning prior to breakfast & 1 hour after each meal for a total of 4times daily. 1 kit 5 12/23/19 26 Active insulin syringe 29G X 1/2 0.5 mL miscIndications :Gestational diabetes mellitus (GDM), antepartum, gestational diabetes method of control unspecified Use 2 syringes in the morning for insulin dosage and 2 syringes in the Evening for insulin dosage. Total of 4 syringes daily needed. 120 each 5 5 Active insulin glargine (Lantus SoloStar) 100 UNIT/ML pen Inject under the skin Active Lantus SoloStar 100 UNIT/ML pen Inject 17 Units under the skin at bedtime 5 03/30/20 25 Discontinu ed(Other) Encounters Date Type Department Care Team Description 03/30/2025 8:50 AM EDT Routine [facility] [address] [place] [address] [place] [address] Christy Schwartz PA Second trimester ; 27 weeks gestation of ; Gestational diabetes mellitus (GDM), antepartum, gestational diabetes method of control unspecified; Factor 5 Leiden mutation, heterozygous (CMS/HCC); Conceived by in vitro fertilization 03/30/2025 Bamboo flowsheet [facility] [address] [place] [address] Christy Schwartz PA 03/30/2025 Travel 03/18/2025 Abstract [facility] [address] [place] [address] Yue Dumont MA 03/03/2025 8:40 AM EDT Routine [facility] [address] [place] [address] [place] [address] Alfredo Donaldson, 23 weeks gestation of ; Second trimester ; induced hypertension, antepartum; Insulin controlled gestational diabetes mellitus (GDM) during , antepartum 03/03/2025 Bamboo flowsheet [facility] [address] [place] [address] Alfredo Donaldson, 03/02/2025 Travel 01/27/2025 Orders Only [facility] [address] [place] [address] Damaris Lopez LPN 01/20/2025 8:30 AM EDT Routine [facility] [address] [place] [address] Christy Schwartz PA Well woman exam with routine gynecological exam; 17 weeks gestation of ; Second trimester ; Exposure to STD; Vaginal discharge 01/20/2025 Clinisync Result Encounter [facility] External Department Unsolicited Christy Schwartz PA 01/20/2025 External Result Encounter [facility] External Department Unsolicited Christy Schwartz PA 01/20/2025 Bamboo flowsheet [facility] [address] [place] [address] Christy Schwartz PA 01/19/2025 Travel 01/10/[address] [address] [place] [phone] Alfredo Donaldson DO 01/07/[address] [address] [place] [phone] Bee Parkinson LPN from Last 3 Months Social History Tobacco Use Types Packs/Day Years Used Date Smoking Tobacco: Never Assessed Estimated Date of Delivery Comme nts Yes 06/24/2025 Based on Ultraso und Sex and Gender Information Value Date Recorded Sex Assigned at Female 11/24/2024 3:01 PM EST Legal Sex Female 10:22 AM EST Gender Identity Female 11/24/2024 3:01 PM EST Sexual Orientation Not on file Last Filed Vital Signs Vital Sign Reading Time Taken Comments Blood Pressure 122/80 03/30/2025 9:26 AM EDT Pulse - - Temperature - - Respiratory Rate - - Oxygen Saturation - - Inhaled Oxygen Concentration - - Weight 104 kg (229 lb) 03/30/2025 9:26 AM EDT Height - - Body Mass Index - - Plan of Treatment Upcoming Encounters Date Type Department Care Team (Late st Contact Info) Description 04/18/2025 10:10 AM EDT Routine [facility] [address] [place] [phone] Alfredo Donaldson, [address] [place] [address] Health Maintenance Due Date Last Done Comments HPV/Cotest 2023 Cervical Cancer Screening 01/21/2028 Pap Smear 01/21/2028 01/20/2025 Influenza Vaccine Completed 08/03/2024, 09/08/2023, 10/07/2022 Goals Goal Patient Goal Type Associated Problems Recent Progress Patient-Stated? Author Reminders Care Plan OB Reminders No Open Scheduling, Background Procedures Procedure Name Priority Date/Time Associated Diagnosis Comments POCT URINALYSIS DIPSTICK Routine 03/03/2025 9:08 AM EDT 23 weeks gestation of Second trimester US OB 14+ WEEKS ANATOMY SCAN 02/09/2025 4:57 PM EDT RECURRENT VAGINITIS (HTRX) Routine 01/20/2025 9:56 AM EDT POCT URINALYSIS DIPSTICK Routine 01/20/2025 8:47 AM EDT 17 weeks gestation of Second trimester IGP,APTIMA HPV,AGE GDLN Routine 01/20/2025 8:29 AM EDT PAP SMEAR Routine 01/20/2025 12:00 AM EDT from Last 3 Months Results * (ABNORMAL) POCT urinalysis dipstick manually resulted (03/03/2025 9:08 AM EDT) Only the most recent of2 resultswithin the time period is included. Color, UA Yellow Clarity, UA Clear Glucose, UA Negative Negative - 2000(110) ++++ mg/dL Bilirubin, UA Negative Negative - 4(70) +++ mg/dL Ketones, UA Negative Negative - 160(16) ++++ mg/dL Spec Grav, UA 1.015 1 - 1.03 Blood, UA Negative Negative - 50 Warren/mcL pH, UA 7.0 5 - 9 Protein, UA Negative Negative - 2000(20) ++++ mg/dL Urobilinogen, UA 0.2 0.2 - 12 mg/dL Leukocytes, UA Trace Negative - 500+++ Malick/mcL Nitrite, UA Negative Negative - Positive Urine 03/03/2025 9:08 AM EDT us Alfredo Mendoza DO POINT OF CARE TEST ENTER/EDIT OR DERABLES Final Result * US OB 14+ weeks anatomy scan (02/09/2025 4:57 PM EDT) Anatomical Region Laterality Modality Body Ultrasound 02/09/2025 4:57 PM EDT Narrative 02/09/2025 4:57 PM EDT THIS EXAM WAS PERFORMED AT [facility] NAME: KEVINCINDY ANGUS : 1995 SEX: F Accession Number: [id number] ORDERING PHYSICIAN: JAIDA RITTER REFERRING PHYSICIAN: ALFREDO DONALDSON Coding ----- --------- Procedures [id number]: Ultrasound, uterus, real time with image documentation, and maternal evaluation plus detailed anatomic examination, transabdominal approach;single or first gestation [id number]: Transvaginal Ultrasound (OB) 57996: Echocardiography, , cardiovascular system, real time with image documentation (2D), with or without M-mode recording Indication ----- --------- Screening for Anatomic Survey, Screening for cervical length, Screening for congenital cardiac abnormality, resulting from assisted reproductive technology, Gestational diabetes, Obesity in , Depression, Supervision of high risk (LT Choroid plexus cyst) History ----- --------- OB History 2. Para 0 [id number] Maternal Assessment ----- --------- Physical Exam Height 157 cm, 5 ft 2 in. Weight 105 kg, 231 lb. Initial weight 107 kg, 235 lb. BMI 42.25 kg/m???. Initial BMI 42.98 kg/m???. Weight gain -2 kg, -4 lb Method ----- --------- Transabdominal and transvaginal ultrasound examination. View: Suboptimal view: limited by maternal body habitus. Suboptimal view: limited by position ----- --------- Hernandes . Number of fetuses: 1 Dating ----- --------- Conception: IVF Embryo transfer on: 10/07/2024 IVF / ET 5 d GA by IVF / ET 20 w + 3 d JANIYA by IVF / ET: 06/25/2025 Previous Ultrasound on: 11/10/2024 Type of prior assessment: GA GA at prior assessment date 7 w + 5 d GA by previous U/S 20 w + 4 d JANIYA by previous Ultrasound: 06/24/2025 Ultrasound examination on: 02/08/2025 GA by U/S based upon: AC, BPD, Femur, HC GA by U/S 20 w + 4 d JANIYA by U/S: 06/24/2025 Assigned: based on the IVF / ET date, selected on 02/08/2025 Assigned GA 20 w + 3 d Assigned JANIYA: 06/25/2025 General Evaluation ----- --------- Cardiac activity Present. FHR 137 bpm. Presentation: breech Placenta: Placental site: posterior, away from cervical os Umbilical cord: Cord vessels: 3 vessel cord. Insertion site: normal insertion Amniotic fluid: Amount of AF: normal amount Biometry ----- --------- BPD 45.1 mm 19w 4d 19% Hadlock OFD 65.6 mm 22w 1d 95% Padmini HC 177.5 mm 20w 2d 32% Hadlock Cerebellum tr 21.1 mm 20w 0d 56% Hill Nuchal fold 4.1 mm AC 169.5 mm 22w 0d 87% Hadlock Femur 33.4 mm 20w 3d 43% Hadlock Humerus 36.2 mm 22w 4d 98% Padmini HC / AC 1.05 3% Hadlock Weight Calculation: EFW 399 g 79% Hadlock EFW (lb,oz) 0 lb 14 oz EFW by Hadlock ([id number]) Head / Face / Neck Biometry: Cephalic index 0.69 <1% Nicolaides Well Reactivator Operator 6.4 mm CM 6.2 mm 82% Nicolaides Inner IOD 14.0 mm Outer IOD 32.7 mm Nasal bone 5.2 mm Extremities / Bony Struc Biometry: FL / BPD 0.74 78% Hadlock FL / HC 0.19 55% Hadlock FL / AC 0.20 4% Hadlock Tibia 27.9 mm 20w 1d 44% Padmini Anatomy ----- --------- The following structures appear abnormal: Head/Neck: Left choroid plexus: cyst. The following structures appear normal: Head / Neck Cranium. Lateral ventricles. Right choroid plexus. Midline falx. Cavum septi pellucidi. Cerebellum. Cisterna magna. Parenchyma. Vermis. Neck. Nuchal fold. Face: Lips. Profile. Nose. Nasal bone. Maxilla. Mandible. Orbits. Heart/Thorax: 3-vessel view. Right lung. Left lung. Abdomen: Abdom. wall. Stomach. Kidneys. Bladder. Small bowel. Large bowel. Right renal artery. Left renal artery. Genitals. Extremities/Skeleton: Right upper arm. Right forearm. Right hand. Left upper arm. Left forearm. Right upper leg. Right lower leg. Left upper leg. Left lower leg. Left foot. The following structures could not be adequately visualized: Heart / Thorax 4-chamber view. RVOT view. LVOT view. 3-dtudyf-cgoaxyf view. Diaphragm. Abdomen Cord insertion. Spine: Cervical spine. Thoracic spine. Lumbar spine. Sacral spine. Extremities / Left hand. Skeleton The following structures could not be examined: Heart / Thorax Great vessels. Extremities / Right foot. Skeleton Echocardiogram ----- --------- Situs situs solitus (normal) Cardiac position normal Cardiac axis normal Cardiac size normal (approx. 1/3 of thoracic area) Cardiac rhythm regular (normal) 4-chamber view suboptimal LVOT view suboptimal RVOT view suboptimal 3-vessel view normal 9-iihcnf-rkrgsxz view suboptimal Aortic arch view normal Ductal arch view suboptimal Bicaval view not examined Interventricular septum not examined Venous-atrial connections not examined AV connections suboptimal VA connections not examined Pulmonary veins not examined Right atrium suboptimal Left atrium suboptimal Atrial septum suboptimal Foramen ovale not examined Right ventricle suboptimal Left ventricle suboptimal Ventricular septum suboptimal Cross-over gr. arteries not examined Main PA suboptimal Pulmonary arteries suboptimal Maternal Structures ----- --------- Uterus Visualized Cervix Visualized Approach - Transvaginal: Cervical length 4.97 cm Right Ovary Visualized Size 31 mm x 22 mm x 17 mm. Vol 5.9 cm??? Left Ovary Visualized Size 30 mm x 24 mm x 18 mm. Vol 6.9 cm??? Cul de Sac Visualized. No free fluid visualized Impression ----- --------- Single viable intrauterine consistent with 20w 3d with an JANIYA of 06/25/2025. Transvaginal cervical length measures 4.97 cm. Left choroid plexus cyst is identified on today's exam. Recommendations ----- --------- Please see [facility] documentation from today. The patient is scheduled in four week(s) to complete anatomic survey and echocardiogram. Subsequent follow up or other follow up as clinically determined by primary OB provider unless otherwise specified by [facility]. Results forwarded to ordering provider so they can follow up with the patient as necessary. The copy-to physician of this order is ALFREDO Palacios The ordering physician of this order is JAIDA Vicente Procedure Note Radiology, Radiologist, MD - 02/09/2025 THIS EXAM WAS PERFORMED AT [facility] NAME: CINDY GRECO : 1995 SEX: F Accession Number: [id number] ORDERING PHYSICIAN: JAIDA RITTER REFERRING PHYSICIAN: ALFREDO DONALDSON Coding ----- --------- Procedures [id number]: Ultrasound, uterus, real time with imagedocumentation, and maternal evaluation plus detailed anatomic examination, transabdominalapproach;single or first gestation [id number]: Transvaginal Ultrasound (OB) 55637: Echocardiography, , cardiovascular system, real timewith image documentation (2D), with or without M-mode recording Indication ----- --------- Screening for Anatomic Survey, Screening for cervical length, Screeningfor congenital cardiac abnormality, resulting from assisted reproductive technology, Gestational diabetes, Obesity inpregnancy, Depression, Supervision of high risk (LT Choroid plexus cyst) History ----- --------- OB History 2. Para 0 [id number] Maternal Assessment ----- --------- Physical Exam Height 157 cm, 5 ft 2 in. Weight 105 kg, 231 lb. Initialweight 107 kg, 235 lb. BMI 42.25 kg/m???. Initial BMI 42.98 kg/m???. Weight gain -2 kg, -4 lb Method ----- --------- Transabdominal and transvaginal ultrasound examination. View: Suboptimalview: limited by maternal body habitus. Suboptimal view: limited by position ----- --------- Hernandes . Number of fetuses: 1 Dating ----- --------- Conception: IVF Embryo transfer on: 10/07/2024 IVF / ET 5 d GA by IVF / ET 20 w + 3 d JANIYA by IVF / ET: 06/25/2025 Previous Ultrasound on: 11/10/2024 Type of prior assessment: GA GA at prior assessment date 7 w + 5 d GA by previous U/S 20 w + 4 d JANIYA by previous Ultrasound: 06/24/2025 Ultrasound examination on: 02/08/2025 GA by U/S based upon: AC, BPD, Femur, HC GA by U/S 20 w + 4 d JANIYA by U/S: 06/24/2025 Assigned: based on the IVF / ET date, selected on 02/08/2025 Assigned GA 20 w + 3 d Assigned JANIYA: 06/25/2025 General Evaluation ----- --------- Cardiac activity Present. FHR 137 bpm. Presentation: breech Placenta: Placental site: posterior, away from cervical os Umbilical cord: Cord vessels: 3 vessel cord. Insertion site: normalinsertion Amniotic fluid: Amount of AF: normal amount Biometry ----- --------- BPD 45.1 mm 19w 4d 19% Hadlock OFD 65.6 mm 22w 1d 95% Padmini HC 177.5 mm 20w 2d 32% Hadlock Cerebellum tr 21.1 mm 20w 0d 56% Hill Nuchal fold 4.1 mm AC 169.5 mm 22w 0d 87% Hadlock Femur 33.4 mm 20w 3d 43% Hadlock Humerus 36.2 mm 22w 4d 98% Padmini HC / AC 1.05 3% Hadlock Weight Calculation: EFW 399 g 79% Hadlock EFW (lb,oz) 0 lb 14 oz EFW by Hadlock ([id number]) Head / Face / Neck Biometry: Cephalic index 0.69 <1% Nicolaides Well Reactivator Operator 6.4 mm CM 6.2 mm 82% Nicolaides Inner IOD 14.0 mm Outer IOD 32.7 mm Nasal bone 5.2 mm Extremities / Bony Struc Biometry: FL / BPD 0.74 78% Hadlock FL / HC 0.19 55% Hadlock FL / AC 0.20 4% Hadlock Tibia 27.9 mm 20w 1d 44% Padmini Anatomy ----- --------- The following structures appear abnormal: Head/Neck: Left choroid plexus: cyst. The following structures appear normal: Head / Neck Cranium. Lateral ventricles. Right choroid plexus. Midlinefalx. Cavum septi pellucidi. Cerebellum. Cisterna magna. Parenchyma. Vermis. Neck. Nuchal fold. Face: Lips. Profile. Nose. Nasal bone. Maxilla. Mandible. Orbits. Heart/Thorax: 3-vessel view. Right lung. Left lung. Abdomen: Abdom. wall. Stomach. Kidneys. Bladder. Small bowel. Large bowel.Right renal artery. Left renal artery. Genitals. Extremities/Skeleton: Right upper arm. Right forearm. Right hand. Leftupper arm. Left forearm. Right upper leg. Right lower leg. Left upper leg. Left lower leg. Left foot. The following structures could not be adequately visualized: Heart / Thorax 4-chamber view. RVOT view. LVOT view. 8-enlaax-eerndxswozy. Diaphragm. Abdomen Cord insertion. Spine: Cervical spine. Thoracic spine. Lumbar spine. Sacral spine. Extremities / Left hand. Skeleton The following structures could not be examined: Heart / Thorax Great vessels. Extremities / Right foot. Skeleton Echocardiogram ----- --------- Situs situs solitus (normal) Cardiac position normal Cardiac axis normal Cardiac size normal (approx. 1/3 of thoracic area) Cardiac rhythm regular (normal) 4-chamber view suboptimal LVOT view suboptimal RVOT view suboptimal 3-vessel view normal 3-qvucro-oozdbsn view suboptimal Aortic arch view normal Ductal arch view suboptimal Bicaval view not examined Interventricular septum not examined Venous-atrial connections not examined AV connections suboptimal VA connections not examined Pulmonary veins not examined Right atrium suboptimal Left atrium suboptimal Atrial septum suboptimal Foramen ovale not examined Right ventricle suboptimal Left ventricle suboptimal Ventricular septum suboptimal Cross-over gr. arteries not examined Main PA suboptimal Pulmonary arteries suboptimal Maternal Structures ----- --------- Uterus Visualized Cervix Visualized Approach - Transvaginal: Cervical length 4.97 cm Right Ovary Visualized Size 31 mm x 22 mm x 17 mm. Vol 5.9 cm??? Left Ovary Visualized Size 30 mm x 24 mm x 18 mm. Vol 6.9 cm??? Cul de Sac Visualized. No free fluid visualized Impression ----- --------- Single viable intrauterine consistent with 20w 3d with an JANIYA of06/25/2025. Transvaginal cervical length measures 4.97 cm. Left choroid plexus cyst is identified on today's exam. Recommendations ----- --------- Please see [facility] documentation from today. The patient is scheduled in four week(s) to complete anatomic survey andfetal echocardiogram. Subsequent follow up or other follow up as clinically determined byprimary OB provider unless otherwise specified by M. Results forwarded to ordering provider so they can follow up with thepatient as necessary. The copy-to physician of this order is ALFREDO Palacios The ordering physician of this order is JAIDA Vicente us Alfredo Donaldson DO IMG OB US PROCEDURES Final Resul t * RECURRENT VAGINITIS (HTRX) (01/20/2025 9:56 AM EDT) [facility] ATOPOBIUM VAGINAE 0.000 19.961 - 24.689 ppm 01/21/2025 6:29 AM EDT [facility] ATOPOBIUM VAGINAE Not Detected 19.961 - 24.689 ppm 01/21/2025 6:29 AM EDT [facility] BVAB 2,3 (BACTERIAL VAGINOSIS ASSOCIATED BACTERIA 2, 3); MOBILUNCUS SPP 0.000 19.961 - 24.689 ppm 01/21/2025 6:29 AM EDT [facility] BVAB 2,3 (BACTERIAL VAGINOSIS ASSOCIATED BACTERIA 2, 3); MOBILUNCUS SPP Not Detected 19.961 - 24.689 ppm 01/21/2025 6:29 AM EDT [facility] DEAN ALBICANS, PARAPSILOSIS, TROPICALIS 0.000 19.961 - 30.770 ppm 01/21/2025 6:29 AM EDT [facility] DEAN ALBICANS, PARAPSILOSIS, TROPICALIS Not Detected 19.961 - 30.770 ppm 01/21/2025 6:29 AM EDT [facility] DEAN GLABRATA 0.000 23.000 - 32.138 ppm 01/21/2025 6:29 AM EDT [facility] DEAN GLABRATA Not Detected 23.000 - 32.138 ppm 01/21/2025 6:29 AM EDT [facility] DEAN KRUSEI 0.000 23.000 - 32.271 ppm 01/21/2025 6:29 AM EDT [facility] DEAN KRUSEI Not Detected 23.000 - 32.271 ppm 01/21/2025 6:29 AM EDT [facility] CHLAMYDIA TRACHOMATIS 0.000 23.000 - 31.467 ppm 01/21/2025 6:29 AM EDT [facility] CHLAMYDIA TRACHOMATIS Not Detected 23.000 - 31.467 ppm 01/21/2025 6:29 AM EDT [facility] GARDNERELLA VAGINALIS 0.000 19.961 - 24.689 ppm 01/21/2025 6:29 AM EDT [facility] GARDNERELLA VAGINALIS Not Detected 19.961 - 24.689 ppm 01/21/2025 6:29 AM EDT [facility] MEGASPHAERA (TYPES 1, 2) 0.000 19.961 - 24.689 ppm 01/21/2025 6:29 AM EDT [facility] MEGASPHAERA (TYPES 1, 2) Not Detected 19.961 - 24.689 ppm 01/21/2025 6:29 AM EDT [facility] NEISSERIA GONORRHOEAE 0.000 23.000 - 32.117 ppm 01/21/2025 6:29 AM EDT [facility] NEISSERIA GONORRHOEAE Not Detected 23.000 - 32.117 ppm 01/21/2025 6:29 AM EDT [facility] TRICHOMONAS VAGINALIS 0.000 23.000 - 32.119 ppm 01/21/2025 6:29 AM EDT [facility] TRICHOMONAS VAGINALIS Not Detected 23.000 - 32.119 ppm 01/21/2025 6:29 AM EDT [facility] MYCOPLASMA GENITALIUM 0.000 19.961 - 24.689 ppm 01/21/2025 6:29 AM EDT [facility] MYCOPLASMA GENITALIUM Not Detected 19.961 - 24.689 ppm 01/21/2025 6:29 AM EDT [facility] Tissue 01/20/2025 9:56 AM EDT 01/21/2025 1:43 AM EDT us Christy CMKOY LAB BLOOD ORDERABLES Final Resul t [facility] [address] [place] [address] * IGP,APTIMA HPV,AGE GDLN (01/20/2025 8:29 AM EDT) Pathologist [facility] AGE [address] AC TESTING Note . [facility] Comment: TESTS RESULT FLAG UNITS REF RANGE LAB Clinician Provided Cytology Information Source.............Cervix Other.............. No. of containers..01 ThinPrep Vial Age [facility] Joann... FLAG LEGEND: L-Low Normal,H-High Normal,LL-Alert Low,HH-Alert High <-Panic Low,>-Panic High,A-Abnormal,AA-Critical Abnormal Performed at: 01 =G [address] [address] Tessy Corea MD, IGP, APTIMA HPV, RFX 16/18,45 Note . [facility] Comment: TESTS RESULT FLAG UNITS REF RANGE LAB DIAGNOSIS: 02 NEGATIVE FOR INTRAEPITHELIAL LESION OR MALIGNANCY. Specimen adequacy: 02 Satisfactory for evaluation. No endocervical component is identified. Performed by: 02 Hannah Ambrose [employer] Central Office (ASCP) . 02 Note: Note 02 The Pap smear is a screening test designed to aid in the detection of premalignant and malignant conditions of the uterine cervix. It is not a diagnostic procedure and should not be used as the sole means of detecting cervical cancer. Both false-positive and false-negative reports do occur. Test Methodology: Note 02 This liquid based ThinPrep(R) pap test was screened with the use of an image guided system. HPV Genotype Reflex Note 02 Criteria not met, HPV Genotype not performed. FLAG LEGEND: L-Low Normal,H-High Normal,LL-Alert Low,HH-Alert High <-Panic Low,>-Panic High,A-Abnormal,AA-Critical Abnormal Performed at: [address] [address] Tessy Corea MD, HPV APTIMA Negative Negative [facility] Comment: This nucleic acid amplification test detects fourteen high- risk HPV types (16,18,31,33,35,39,45,51,52,56,58,59,66,68) without differentiation. Performed at: =[address] [id number] Electric Meter Tester: Tessy Corea MD, Phone: [phone] Performed at: [address] [id number] Electric Meter Tester: Tessy Corea MD, Phone: [phone] 01/20/2025 8:29 AM EDT 01/20/2025 12:46 PM EDT Narrative [facility] - 01/24/2025 11:08 AM EDT SPATULA-ALONE CERVIX us Christy MCKOY LAB BLOOD ORDERABLES Final Resul t [facility] * Pap Smear (01/20/2025 12:00 AM EDT) Swab Cervical swab / Unknown us [facility] Nurse LAB CYTOLOGY ORDERABLES Final Result EXTERNAL LAB from Last 3 Months Additional Health Concerns Active Problems Noted Date Diagnosed Date OB Reminders 11/26/2024 Insurance [facility]
--- OUTSIDE RECORDS SUMMARY | 2025-04-05 16:49 | XMS_ITS | Encounter Summary ---
Author Organization [facility] Address [address] [place] [address] Care Team Providers Care Bulk Plant Supervisor Name Role Phone Unavailable Primary Care Provider Unavailabl e Encounter Details Date Type Department Care Team (Late Contact Info) Description 12/27/2024 Abstract [facility] [address] [place] [id number] Cain Donaldson DO [address] [place] [address] [place], [place] [id number] Social History Tobacco Use Types Packs/Day Years [...] AM EDT Routine [facility] [address] [place] [phone] Cain Donaldson DO [facility] [place], [place] [id number] documented as of this encounter Goals Goal Patient Goal Type Associated Problems Recent Progress Patient-Stated? Author Reminders Care Plan OB Reminders No Open Scheduling, Background documented as of this encounter Visit Diagnoses Not on filedocumented in this encounter Additional Health Concerns Active Problems Noted Date Diagnosed Date OB Reminders 11/26/2024 documented as of this encounter
--- OUTSIDE RECORDS SUMMARY | 2025-04-05 17:02 | XMS_ITS | Clinical Summary ---
Author Organization [employer] tem Address [id number] [address] [place] [address] Care Team Providers Care Aircraft Cleaner Name Role Phone Unavailable Primary Care Provider Unavailabl e Allergies No known active allergies Medications alcohol swabs (ALCOHOL PREP PADS) pads, medicated Apply 1 Pad topically as needed (Use to check blood sugar). Active blood-glucose meter misc 4 (four) times a day. Use to check blood sugar 4 times daily. Fasting in the morning, and 1 hour after each meal. Active blood sugar diagnostic (glucose blood) strip 1 strip as needed. Use to check blood sugar 4 times daily. Fasting in the morning, and 1 hour after each meal. Active lancets (LANCETS,ULTRA THIN) misc Use to check blood sugar 4 times daily. Fasting in the morning, and 1 hour after each meal. Active insulin syringe-needle U-100 (INSULIN SYRINGE) 0.5 mL 29 gauge x 1/2 syringe by miscellaneous route. Active PNV no.153/FA/om3/ dha/epa/fish ( GUMMIES ORAL) Take 2 tablets by mouth in the morning. Active cholecalcifero l 1,000 units tablet Take 1 tablet (1,000 Units total) by mouth in the morning. Active aspirin 81 mg chewable tablet Chew 1 tablet (81 mg total) and swallow in the morning. Active insulin glargine (LANTUS SOLOSTAR U-100 INSULIN) 100 unit/mL (3 mL) insulin penIndications :Insulin controlled gestational diabetes mellitus (GDM) in second trimester,Pred iabetes in mother during Inject 22 units subcutaneously in abdomen every evening 15 mL 3 025 Active insulin glargine (LANTUS SOLOSTAR U-100 INSULIN) 100 unit/mL (3 mL) insulin penIndications :Insulin controlled gestational diabetes mellitus (GDM) in second trimester,Pred iabetes in mother during Inject 17 units subcutaneously in abdomen every evening 15 mL 3 025 2024 Discontinued insulin glargine (LANTUS SOLOSTAR U-100 INSULIN) 100 unit/mL (3 mL) insulin penIndications :Insulin controlled gestational diabetes mellitus (GDM) in second trimester,Pred iabetes in mother during Inject 19 units subcutaneously in abdomen every evening 15 mL 3 025 2024 Discontinued(R eomax) Active Problems Problem Noted Date Diagnosed Date Insulin controlled gestation al diabetes mellitus (GDM) in second trimester 01/13/2025 Viral upper respiratory illness 09/25/2016 Bipolar 1 disorder 07/03/2016 Non morbid obesity 07/03/2016 Major depressive disorder 05/29/2016 Estimated Date of Delivery Comme nts Yes 06/25/2025 Based on Other B asis, 5 day Embryo, transfer date 10/07/24, due date should be 06/25/25 Encounters Date Type Department Care Team Description 03/30/2025 1:30 PM EDT Telemedicine Maternal- Medicine at [facility] [address] [place] [phone] Sintia Martinez, PROTECTIVE SIGNAL INSTALLER-COAL SAMPLE TESTER Insulin controlled gestational diabetes mellitus (GDM) in second trimester (Primary Dx); Recurrent major depressive disorder, in partial remission; Prediabetes in mother during 03/30/2025 Travel 03/22/2025 Telephone Maternal- Medicine at [facility] [address] [place] [phone] Sonya Lomax, NARESH 03/16/2025 7:48 AM EDT - 03/16/2025 11:59 PM EDT Hospital Encounter [facility] - [facility] US Imaging [address] [place] [phone] Insulin controlled gestational diabetes mellitus (GDM) in second trimester; Choroid plexus cyst of fetus affecting care of mother, antepartum, single or unspecified fetus; Heterozygous factor V Leiden affecting in second trimester, antepartum; Severe obesity due to excess calories affecting , antepartum ([facility]) Discharge Disposition: Home 03/16/2025 Telephone Maternal- Medicine at [facility] [address] [place] [address] Sonya Lomax, NARESH 03/15/2025 Travel 03/11/2025 Telephone Maternal- Medicine at [facility] [address] [place] [address] Naomy Thompson RN 03/07/2025 Telephone Maternal- Medicine at [facility] [address] [place] [address] Sonya Lomax, NARESH 03/07/2025 Orders Only Maternal- Medicine at [facility] [address] [place] [address] Cole Wade MD Insulin controlled gestational diabetes mellitus (GDM) in second trimester; Prediabetes in mother during 03/01/2025 Telephone Maternal- Medicine at [facility] [address] [place] [address] Valerie Le RN 02/28/2025 Orders Only Maternal- Medicine at [facility] [address] [place] [address] Devika Pulido PA-C Insulin controlled gestational diabetes mellitus (GDM) in second trimester; Prediabetes in mother during 02/24/2025 1:00 PM EDT Telemedicine Maternal- Medicine at [facility] [address] [place] [address] Sintia Martinez, UMM-RHONDA Insulin controlled gestational diabetes mellitus (GDM) in second trimester (Primary Dx); Recurrent major depressive disorder, in partial remission; Bipolar 1 disorder ([facility]); Prediabetes in mother during 02/24/2025 Travel 02/23/2025 Travel 02/17/2025 Orders Only Maternal- Medicine at [facility] [address] [place] [address] Christy Prado LPN Insulin controlled gestational diabetes mellitus (GDM) in second trimester; Prediabetes in mother during ; 20 weeks gestation of ; Choroid plexus cyst of fetus affecting care of mother, antepartum, single or unspecified fetus; Heterozygous factor V Leiden affecting in second trimester, antepartum; Severe obesity due to excess calories affecting , antepartum ([facility]); Bipolar disorder, in full remission, most recent episode depressed 02/17/2025 Telephone Maternal- Medicine at [facility] [address] [place] [address] Christy Prado LPN 02/15/2025 Telephone Maternal- Medicine at [facility] [address] [place] [address] Valerie Le RN 02/08/2025 10:00 AM EDT Office Visit Maternal- Medicine at [facility] [address] [place] [phone] Jaida Chadwick MD Insulin controlled gestational diabetes mellitus (GDM) in second trimester (Primary Dx); Prediabetes in mother during ; 20 weeks gestation of ; Choroid plexus cyst of fetus affecting care of mother, antepartum, single or unspecified fetus; Heterozygous factor V Leiden affecting in second trimester, antepartum; Severe obesity due to excess calories affecting , antepartum ([facility]); Bipolar disorder, in full remission, most recent episode depressed 02/08/2025 8:35 AM EDT - 02/08/2025 11:59 PM EDT Hospital Encounter [facility] - [facility] US Imaging [address] [place] [address] Encounter for anatomic survey; Screening, , for anatomic survey Discharge Disposition: Home 02/08/2025 Orders Only Maternal- Medicine at [facility] [address] [place] [address] Christy Prado LPN Insulin controlled gestational diabetes mellitus (GDM) in second trimester (Primary Dx); Choroid plexus cyst of fetus affecting care of mother, antepartum, single or unspecified fetus; Heterozygous factor V Leiden affecting in second trimester, antepartum; Severe obesity due to excess calories affecting , antepartum ([facility]) 02/08/2025 Travel 02/03/2025 Telephone Maternal- Medicine at [facility] [address] [place] [address] Christy Prado LPN 02/03/2025 Telephone Maternal- Medicine at [facility] [address] [place] [address] Christy Prado LPN 01/27/2025 Orders Only Maternal- Medicine at [facility] [place] [address] [place] [address] Sintia Martinez, PROTECTIVE SIGNAL INSTALLER-COAL SAMPLE TESTER 01/27/2025 Orders Only Maternal- Medicine at [facility] [address] [place] [address] Sintia Martinez, PROTECTIVE SIGNAL INSTALLER-COAL SAMPLE TESTER 01/26/2025 3:30 PM EDT Office Visit Maternal- Medicine at [facility] [address] [place] [address] Sintia Martinez, PROTECTIVE SIGNAL INSTALLER-COAL SAMPLE TESTER Insulin controlled gestational diabetes mellitus (GDM) in second trimester (Primary Dx) 01/26/2025 1:30 PM EDT Support Visit Maternal- Medicine at [facility] [address] [place] [address] Insulin controlled gestational diabetes mellitus (GDM) in second trimester 01/26/2025 Refill Maternal- Medicine at [facility] [address] [place] [address] AmistadSintia APRN-CNP 01/26/2025 Travel 01/13/2025 Abstract Maternal- Medicine at [facility] [address] [place] [address] External, Scanning Provider from Last 3 Months Family History Medical History Relation Name Comments Hearing loss Maternal Grandmother Depression Mother Autism Neg Hx Bleeding Disorder Neg Hx Developmental delay Neg Hx Down syndrome Neg Hx Heart defect Neg Hx Sudden Neg Hx Relation Name Status Comments Maternal Grandmother Mother Social History Tobacco Use Types Packs/Day Years Used Date Smoking Tobacco: Former Cigarettes 2 - 2010 Smokeless Tobacco: Never Tobacco Cessation:Counseling Given: Not Answered Alcohol Use Standard Drinks/Week Comments Not Currently [...] on file Sexual Orientation Not on file Last Filed Vital Signs Vital Sign Reading Time Taken Comments Blood Pressure 125/80 02/08/2025 9:34 AM EDT Pulse 95 02/08/2025 9:34 AM EDT Temperature 36.6 C (97.9 F) 11/24/2020 8:09 AM EST Respiratory Rate 20 11/26/2016 7:08 PM EST Oxygen Saturation 100% 11/26/2016 7:08 PM EST Inhaled Oxygen Concentration - - Weight 104.8 kg (231 lb) 02/08/2025 9:34 AM EDT Height 157.5 cm (5' 2.01 ) 02/08/2025 9:34 AM ED T Body Mass Index 42.24 02/08/2025 9:34 AM EDT Plan of Treatment Upcoming Encounters Date Type Department Care Team (Late st Contact Info) Description 04/14/2025 8:00 AM EDT Appointment Maternal Medicine [facility] [address] [place] [address] 04/25/2025 11:30 AM EDT Telemedicine Maternal- Medicine at [facility] [address] [place] [address] Devika Pulido PA-C [address] [facility] [address] [place] [address] Health Maintenance Due Date Last Done Comments Depression Screening 2005 Adult BMI Follow Up Plan 2011 Influenza Vaccine 07/04/2025 08/03/2024, , 10/07/2022 Adult BMI Screening 02/08/2026 02/08/2025 Tobacco Screening 02/08/2026 02/08/2025 Pap Smear 01/21/2028 01/20/2025, 11/24/2020 DTaP,Tdap and Td Vaccines (2 - Td or Tdap) 05/16/2032 05/16/2022 COVID-19 Vaccine Completed 08/03/2024, 04/2023, 10/31/2021, Additional history exists Medical Devices Not on file Procedures Procedure Name Priority Date/Time Associated Diagnosis Comments [facility] OB FOLLOW-UP, 1 FETUS Routine 03/16/2025 9:20 AM EDT Insulin controlled gestational diabetes mellitus (GDM) in second trimester Choroid plexus cyst of fetus affecting care of mother, antepartum, single or unspecified fetus Heterozygous factor V Leiden affecting in second trimester, antepartum Severe obesity due to excess calories affecting , antepartum ([facility]) [facility] COMPREHENSIVE ANATOMIC SURVEY Routine 02/08/2025 11:16 AM EDT Screening, , for anatomic survey UNLISTED LAB TEST Routine 02/08/2025 Insulin controlled gestational diabetes mellitus (GDM) in second trimester Prediabetes in mother during 20 weeks gestation of Choroid plexus cyst of fetus affecting care of mother, antepartum, single or unspecified fetus Heterozygous factor V Leiden affecting in second trimester, antepartum Severe obesity due to excess calories affecting , antepartum ([facility]) Bipolar disorder, in full remission, most recent episode depressed PAP SMEAR Routine 11/24/2020 6:26 AM EST Encounter for gynecological examination without abnormal finding from Last 3 Months or Most Recently Relevant to Health Maintenance Results * US [facility] OB FOLLOW-UP, 1 FETUS (03/16/2025 9:20 AM EDT) Only the most recent of2 resultswithin the time period is included. Anatomical Region Laterality Modality OB-MATERIAL CONTROL SUPERVISOR Ultrasound 03/16/2025 8:03 AM EDT Narrative 03/16/2025 4:59 PM EDT NAME: CINDY GRECO : 1995 SEX: F Accession Number: [id number] ORDERING PHYSICIAN: JAIDA CHADWICK REFERRING PHYSICIAN: ALFREDO PROCTOR Coding ----- --------- Procedures [id number]: Follow-up Ultrasound, per fetus [address]: Echocardiography, , cardiovascular system, real time with image documentation (2D), with or without M-mode recording; follow-up or repeat study Indication ----- --------- Screening for follow-up survey, Screening for congenital cardiac abnormality, resulting from assisted reproductive technology, Gestational diabetes, Obesity in , Depression, Supervision of high risk (LT Choroid plexus cyst) History ----- --------- OB History 2. Para 0 [id number] Maternal Assessment ----- --------- Physical Exam Height 157 cm, 5 ft 2 in. Weight 105 kg, 231 lb. Initial weight 107 kg, 235 lb. BMI 42.25 kg/m . Initial BMI 42.98 kg/m . Weight gain -2 kg, -4 lb Method ----- --------- Transabdominal ultrasound examination. View: Suboptimal view: limited by maternal body habitus. Suboptimal view: limited by position ----- --------- Hernandes . Number of fetuses: 1 Dating ----- --------- Conception: IVF Embryo transfer on: 10/07/2024 IVF / ET 5 d GA by IVF / ET 25 w + 4 d JANIYA by IVF / ET: 06/25/2025 Previous Ultrasound on: 11/10/2024 Type of prior assessment: GA GA at prior assessment date 7 w + 5 d GA by previous U/S 25 w + 5 d JANIYA by previous Ultrasound: 06/24/2025 Ultrasound examination on: 03/16/2025 GA by U/S based upon: AC, BPD, Femur, HC GA by U/S 25 w + 4 d JANIYA by U/S: 06/25/2025 Assigned: based on the IVF / ET date, selected on 02/08/2025 Assigned GA 25 w + 4 d Assigned JANIYA: 06/25/2025 General Evaluation ----- --------- Cardiac activity Present. FHR 134 bpm. Presentation: jf breech Placenta: Placental site: posterior, away from cervical os Umbilical cord: Cord vessels: 3 vessel cord. Insertion site: documented previously Amniotic fluid: Amount of AF: normal amount. MVP 4.1 cm Biometry ----- --------- Standard BPD 60.4 mm 24w 4d 13% Hadlock OFD 90.4 mm 29w 1d >99% Padmini HC 243.1 mm 26w 3d 56% Hadlock Cerebellum tr 30.2 mm 26w 1d 70% Hill AC 210.6 mm 25w 4d 42% Hadlock Femur 46.3 mm 25w 3d 30% Hadlock Humerus 41.7 mm 25w 1d 28% Padmini HC / AC 1.15 EFW 822 g 38% Hadlock EFW (lb) 1 lb EFW (oz) 13 oz EFW by: Hadlock ([id number]) Extended Tibia 40.4 mm 25w 3d 40% Padmini Aircraft Cleaner 3.5 mm CM 9.2 mm 98% Nicolaides Head / Face / Neck Cephalic index 0.67 <1% Nicolaides Nasal bone: documented previously Extremities / Bony Struc FL / BPD 0.77 FL / HC 0.19 FL / AC 0.22 Other Structures FHR 134 bpm Anatomy ----- --------- The following structures appear normal: Head/Neck: Cranium. Lateral ventricles. Choroid plexus. Cavum septi pellucidi. Cerebellum. Cisterna magna. Parenchyma. Heart/Thorax: RVOT view. LVOT view. 5-uusrlc-xdqujdg view. Abdomen: Abdom. wall. Stomach. Kidneys. Bladder. Small bowel. Large bowel. Spine: Cervical spine. Thoracic spine. Lumbar spine. Sacral spine. Extremities/Skeleton: Right foot. Skeleton The following structures could not be adequately visualized: Heart / Thorax 4-chamber view. Great vessels. Diaphragm. Abdomen Cord insertion. Extremities / Left hand. Skeleton The following structures were documented previously: Head / Neck Midline falx. Vermis. Neck. Face: Lips. Profile. Nose. Nasal bone. Maxilla. Mandible. Orbits. Heart / Thorax 3-vessel view. Right lung. Left lung. Abdomen Right renal artery. Left renal artery. Genitals. Extremities / Right upper arm. Right forearm. Right hand. Left upper arm. Left forearm. Right upper leg. Right lower leg. Left upper leg. Left lower leg. Left foot. Echocardiogram ----- --------- Situs situs solitus (normal) Cardiac position normal Cardiac axis normal Cardiac size normal (approx. 1/3 of thoracic area) Cardiac rhythm regular (normal) 4-chamber view suboptimal LVOT view normal RVOT view normal 3-vessel view documented previously 0-hyihni-citikjq view normal Aortic arch view documented previously Ductal arch view normal Bicaval view normal Interventricular septum suboptimal Venous-atrial connections normal AV connections normal VA connections normal Pulmonary veins normal Right atrium suboptimal Left atrium suboptimal Atrial septum suboptimal Foramen ovale suboptimal Right ventricle suboptimal Left ventricle suboptimal Ventricular septum suboptimal Cross-over gr. arteries suboptimal Main PA the main pulmonary artery can be seen bifurcating into the ductus arteriosus and the right pulmonary artery Pulmonary arteries normal Maternal Structures ----- --------- Uterus Visualized Cervix Not visualized Approach - Transabdominal Right Ovary Not visualized Left Ovary Not visualized Cul de Sac Suboptimal Impression ----- --------- Single viable intrauterine with appropriate interval growth. EFW measures at the 38%, AC measures at the 42%. Amniotic fluid MVP measures 4.1 cm. Previously identified left choroid plexus cyst appears to be resolved on today's exam. Recommendations ----- --------- The patient is scheduled in four week(s) to complete anatomic survey and echocardiogram. Subsequent follow up or other follow up as clinically determined by primary OB provider unless otherwise specified by M. Results forwarded to ordering provider so they can follow up with the patient as necessary. Procedure Note Cole Wade MD - 03/16/2025 NAME: CINDY GRECO : 1995 SEX: F Accession Number: [id number] ORDERING PHYSICIAN: JAIDA CHADWICK REFERRING PHYSICIAN: ALFREDO PROCTOR Coding ----- --------- Procedures [id number]: Follow-up Ultrasound, per fetus [address]: Echocardiography, , cardiovascular system, real timewith image documentation (2D), with or without M-mode recording; follow-up or repeat study Indication ----- --------- Screening for follow-up survey, Screening for congenital cardiacabnormality, resulting from assisted reproductive technology, Gestational diabetes, Obesity in , Depression,Supervision of high risk (LT Choroid plexus cyst) History ----- --------- OB History 2. Para 0 [id number] Maternal Assessment ----- --------- Physical Exam Height 157 cm, 5 ft 2 in. Weight 105 kg, 231 lb. Initialweight 107 kg, 235 lb. BMI 42.25 kg/m . Initial BMI 42.98 kg/m . Weight gain -2 kg, -4 lb Method ----- --------- Transabdominal ultrasound examination. View: Suboptimal view: limited bymaternal body habitus. Suboptimal view: limited by position ----- --------- Hernandes . Number of fetuses: 1 Dating ----- --------- Conception: IVF Embryo transfer on: 10/07/2024 IVF / ET 5 d GA by IVF / ET 25 w + 4 d JANIYA by IVF / ET: 06/25/2025 Previous Ultrasound on: 11/10/2024 Type of prior assessment: GA GA at prior assessment date 7 w + 5 d GA by previous U/S 25 w + 5 d JANIYA by previous Ultrasound: 06/24/2025 Ultrasound examination on: 03/16/2025 GA by U/S based upon: AC, BPD, Femur, HC GA by U/S 25 w + 4 d JANIYA by U/S: 06/25/2025 Assigned: based on the IVF / ET date, selected on 02/08/2025 Assigned GA 25 w + 4 d Assigned JANIYA: 06/25/2025 General Evaluation ----- --------- Cardiac activity Present. FHR 134 bpm. Presentation: jf breech Placenta: Placental site: posterior, away from cervical os Umbilical cord: Cord vessels: 3 vessel cord. Insertion site: documentedpreviously Amniotic fluid: Amount of AF: normal amount. MVP 4.1 cm Biometry ----- --------- Standard BPD 60.4 mm 24w 4d 13% Hadlock OFD 90.4 mm 29w 1d >99% Padmini HC 243.1 mm 26w 3d 56% Hadlock Cerebellum tr 30.2 mm 26w 1d 70% Hill AC 210.6 mm 25w 4d 42% Hadlock Femur 46.3 mm 25w 3d 30% Hadlock Humerus 41.7 mm 25w 1d 28% Padmini HC / AC 1.15 EFW 822 g 38% Hadlock EFW (lb) 1 lb EFW (oz) 13 oz EFW by: Hadlock ([id number]) Extended Tibia 40.4 mm 25w 3d 40% Padmini Aircraft Cleaner 3.5 mm CM 9.2 mm 98% Nicolaides Head / Face / Neck Cephalic index 0.67 <1% Nicolaides Nasal bone: documented previously Extremities / Bony Struc FL / BPD 0.77 FL / HC 0.19 FL / AC 0.22 Other Structures FHR 134 bpm Anatomy ----- --------- The following structures appear normal: Head/Neck: Cranium. Lateral ventricles. Choroid plexus. Cavum septipellucidi. Cerebellum. Cisterna magna. Parenchyma. Heart/Thorax: RVOT view. LVOT view. 1-pigwkt-vtsqkyd view. Abdomen: Abdom. wall. Stomach. Kidneys. Bladder. Small bowel. Largebowel. Spine: Cervical spine. Thoracic spine. Lumbar spine. Sacral spine. Extremities/Skeleton: Right foot. Skeleton The following structures could not be adequately visualized: Heart / Thorax 4-chamber view. Great vessels. Diaphragm. Abdomen Cord insertion. Extremities / Left hand. Skeleton The following structures were documented previously: Head / Neck Midline falx. Vermis. Neck. Face: Lips. Profile. Nose. Nasal bone. Maxilla. Mandible. Orbits. Heart / Thorax 3-vessel view. Right lung. Left lung. Abdomen Right renal artery. Left renal artery. Genitals. Extremities / Right upper arm. Right forearm. Right hand. Left upper arm.Left forearm. Right upper leg. Right lower leg. Left upper leg. Left lower leg. Left foot. Echocardiogram ----- --------- Situs situs solitus (normal) Cardiac position normal Cardiac axis normal Cardiac size normal (approx. 1/3 of thoracic area) Cardiac rhythm regular (normal) 4-chamber view suboptimal LVOT view normal RVOT view normal 3-vessel view documented previously 5-ggmtls-xyalwdm view normal Aortic arch view documented previously Ductal arch view normal Bicaval view normal Interventricular septum suboptimal Venous-atrial connections normal AV connections normal VA connections normal Pulmonary veins normal Right atrium suboptimal Left atrium suboptimal Atrial septum suboptimal Foramen ovale suboptimal Right ventricle suboptimal Left ventricle suboptimal Ventricular septum suboptimal Cross-over gr. arteries suboptimal Main PA the main pulmonary artery can be seen bifurcatinginto the ductus arteriosus and the right pulmonary artery Pulmonary arteries normal Maternal Structures ----- --------- Uterus Visualized Cervix Not visualized Approach - Transabdominal Right Ovary Not visualized Left Ovary Not visualized Cul de Sac Suboptimal Impression ----- --------- Single viable intrauterine with appropriate interval growth. EFWmeasures at the 38%, AC measures at the 42%. Amniotic fluid MVP measures 4.1 cm. Previously identified left choroid plexus cyst appears to be resolved ontoday's exam. Recommendations ----- --------- The patient is scheduled in four week(s) to complete anatomic survey andfetal echocardiogram. Subsequent follow up or other follow up as clinically determined byprimary OB provider unless otherwise specified by [facility]. Results forwarded to ordering provider so they can follow up with thepatient as necessary. Jaida Chadwick MD [facility] [place] ORDERABLES Final Result * Unlisted Lab Test (02/08/2025) 02/08/2025 us Jaida Chadwick MD LAB BLOOD ORDERABLES Final Resul t SUNQUEST * Pap Smear (11/24/2020 6:26 AM EST) 11/24/2020 6:26 AM EST 11/24/2020 6:35 AM EST Narrative COPATH - 11/28/2020 11:50 AM EST [facility] in Laboratory Medicine [address] [place] [address] Gynecologic Cytology Consultation Patient Name: KEVIN MOORE : 1995 (Age: 25) Gender: F Taken: 11/24/2020 Reported: 11/28/2020 Physician(s): Al Orr M.D. ( ) Copy To: [facility]. Rec. #: [id number] Acct: # [id number] Final Cytologic Interpretation ThinPrep Pap Test (Cervical): Satisfactory for evaluation. A transformation zone component was not noted. NEGATIVE FOR INTRAEPITHELIAL LESION OR MALIGNANCY. [facility] [place] Interpretation performed at [facility], [address] [place] [address], License number: [id number]. Electronically Signed Out By PAUL Lopez(ASCP) Date of Last Menstrual Period: 09/12/2020 Other Clinical Conditions: Z01.419 Custom Dressmaker exam wo/abn findings Source of Specimen ThinPrep Pap Test (Cervical) Thin Prep Pap (MATERIAL CONTROL SUPERVISOR) Fee Code(s): G0145 The Pap test is a screening test with an inherent, but low, probability of error. The Pap test is primarily effective for the diagnosis and prevention of squamous cell carcinoma. Regular screening is critical for prevention. ThinPrep liquid-based slides, which meet the Email Deployment Specialist criteria for automated screening, have been screened by the [employer] (as of 07/20/07) along with an additional manual rescreening by a blending line attendant and, if indicated, by a pathologist. Al Orr MD PATHOLOGY/CYTOLOGY ORDERABLE S Final Result COPATH from Last 3 Months or Most Recently Relevant to Health Maintenance Insurance ANTHEM ANTHEM
--- OUTSIDE RECORDS SUMMARY | 2025-04-05 17:26 | XMS_ITS | CCD ---
Author Organization [facility] Care Team Providers Care Commodity Management Specialist Name Role Phone Unavailable Primary Care Provider Unavailabl e NO FAMILY, PHYSICIAN Primary Care Provider Unava LINDSYA Duckworth Attending Provider Renita Fu Attending Unavailable Renita Fu Admitting Unavailable NO FAMILY, PHYSICIAN Primary Care Unavailable Unavailable Primary Care Provider Unavailabl e Unavailable Primary Care Provider Unavailabl e Unavailable Primary Care Provider Unavailabl e Unavailable Primary Care Provider Unavailabl e ZOLJOSE FALLON Referring Unavailable ZOLTON, JOSE Peterson Referring Unavailable MENDOZA, CAIN DAVE Referring Unavailable LEXCHRISTY Referring Unavailable MENDOZA, CAIN Attending Unavailable LEX, CHRISTY Attending Unavailable MENDOZA, CAIN Attending Unavailable LEX, CHRISTY Attending Unavailable KENZIE RHODES Attending Unavailable MENDOZA, CAIN R Referring Unavailable MICHELLE, APOLLO Attending Unavailable MENDOZA, CAIN R Referring Unavailable MENDOZA, CAIN R Referring Unavailable JAIDA CHADWICK Attending Unavailable MENDOZA, CAIN R Referring Unavailable MICHELLE, APOLLO Attending Unavailable MENDOZA, CAIN R Referring Unavailable MENDOZA, CAIN R Referring Unavailable MICHELLE, APOLLO Attending Unavailable MENDOZA, CAIN R Referring Unavailable Medications Current Medications Medication Drug Class(es) Dates Sig (Normalized) Sig (Original) aspirin 81 mg chewable tablet (13 sources) Platelet Aggregation Inhibitor, Nonsteroidal Anti-inflammatory Drug aspirin 81 mg chewable tablet Chew 1 tablet (81 mg total) and swallow in the morning. Active Blood Glucose Monitoring Suppl (D-Care Glucometer) w/Device kit (12 sources) Start: 12-23-2024 End: 12-23-2025 Blood Glucose Monitoring Suppl (D-Care Glucometer) w/Device kit Indications: Elevated glucose tolerance test , resulting from in vitro fertilization, antepartum 1 kit Daily Use four times daily to check FSBS. In the morning prior to breakfast & 1 hour after each meal for a total of 4times daily. 1 kit 12/23/2024 12/23/2025 Active blood-glucose meter misc (20 sources) blood-glucose me ter misc 4 (four) times a day. Use to check blood sugar 4 times daily. Fasting in the morning, and 1 hour after each meal. Active cholecalciferol 0.025 mg oral tablet (18 sources) Vitamin D take 1 tablet by mouth in the morning cholecalciferol 1,000 units tablet Take 1 tablet (1,000 Units total) by mouth in the morning. Active 3 ml insulin glargine 100 unt/ml pen injector (20 sources) Insulin Analog Start: 03-30-2025 insulin glargine (LANTUS SOLOSTAR U-100 INSULIN) 100 unit/mL (3 mL) insulin pen Indications: Insulin controlled gestational diabetes mellitus (GDM) in second trimester , Prediabetes in mother during Inject 22 units subcutaneously in abdomen every evening 15 mL 3 03/30/2025 Active Start: 03-07-2025 End: 03-30-2025 insulin glargine (LANTUS CHUY OSTAR U-100 INSULIN) 100 unit/mL (3 mL) insulin pen Indications: Insulin controlled gestational diabetes mellitus (GDM) in second trimester , Prediabetes in mother during Inject 19 units subcutaneously in abdomen every evening 15 mL 3 03/07/2025 03/30/2025 Discontinued (Reorder) Start: 02-28-2025 End: 03-07-2025 insulin glargine (LANTUS CHUY OSTAR U-100 INSULIN) 100 unit/mL (3 mL) insulin pen Indications: Insulin controlled gestational diabetes mellitus (GDM) in second trimester , Prediabetes in mother during Inject 17 units subcutaneously in abdomen every evening 15 mL 3 02/28/2025 03/07/2025 Discontinued Start: 02-24-2025 End: 02-28-2025 insulin glargine (LANTUS CHUY OSTAR U-100 INSULIN) 100 unit/mL (3 mL) insulin pen Indications: Insulin controlled gestational diabetes mellitus (GDM) in second trimester , Prediabetes in mother during Inject 14 units subcutaneously in abdomen every evening 15 mL 3 02/24/2025 02/28/2025 Discontinued Start: 02-10-2025 End: 03-30-2025 Lantus SoloStar 100 UNIT/ML pen Inject 17 Units under the skin at bedtime 02/10/2025 03/30/2025 Discontinued (Other) Start: 02-08-2025 End: 02-24-2025 inject 10 [IU] by subcutaneous injection once daily in the evening insulin glargine (LANTUS SOLOSTAR U-100 INSULIN) 100 unit/mL (3 mL) insulin pen Indications: Insulin controlled gestational diabetes mellitus (GDM) in second trimester , Prediabetes in mother during Inject 10 units subcutaneously in abdomen every evening 15 mL 3 02/08/2025 02/24/2025 Discontinued (Reorder) insulin glargine (Lantus SoloStar) 100 UNIT/ML pen Inject under the skin Active insulin, regular, human 100 unt/ml injectable solution (6 sources) Insulin Start: 01-07-2025 End: 01-07-2026 inject 0.05 mL by subcutaneous injection in the morning insulin regular (NovoLIN R) 100 UNIT/ML injection Indications: Gestational diabetes mellitus (GDM), antepartum, gestational diabetes method of control unspecified Inject 0.05 mL (5 Units) under the skin in the morning and 0.05 mL (5 Units) before bedtime. 30 mL 3 01/07/2025 03/03/2025 Discontinued isopropyl alcohol 0.7 ml/ml medicated pad (20 sources) Start: 12-23-2024 Alcohol Swabs (Alcohol Prep Pad) 70 % pads Indications: Elevated glucose tolerance test , resulting from in vitro fertilization, antepartum Apply 1 Pad topically Daily Use four times daily to check FSBS. 150 each 3 12/23/2024 Active 24 hr metFORMIN hydrochloride 500 mg extended release oral tablet (15 sources) Biguanide Start: 12-20-2024 End: 03-03-2025 metFORMIN XR (Glucophage-XR) 500 MG 24 hr tablet 12/20/2024 03/03/2025 Discontinued Start: 04-06-2024 take 500 mg by mouth twice daily at mealtime Metformin Active 500 MG PO Twice daily with meals April 06, 2024 12:00am End: 01-26-2025 take 1 tablet by mouth once daily at breakfast metFORMIN (FORTAMET) 500 MG (OSM) 24 hr tablet Take 1 tablet (500 mg total) by mouth daily with breakfast. 01/26/2025 Discontinued (Alternate therapy) metFORMIN (Glucophage) 250 MG split tablet (2 sources) End: 12-23-2024 metFORMIN (Glucophage) 250 MG split tablet 12/23/2024 Discontinued PNV no.153/FA/om3/dha/epa/fi sh ( GUMMIES ORAL) (18 sources) take 2 tablets by mouth in the morning PNV no.153/FA/om3/dha/epa/f josh ( GUMMIES ORAL) Take 2 tablets by mouth in the morning. Active Completed/Discontinued Medications Medication Drug Class(es) Dates Sig (Normalized) Sig (Original) insulin isophane, human 100 unt/ml injectable suspension (16 sources) Start: 01-27-2025 End: 02-08-2025 insulin NPH (NovoLIN N NPH U-100 Insulin) 100 unit/mL injection Inject 5 units in the am and 5 units in the pm 10 mL 6 01/27/2025 02/08/2025 Discontinued Start: 01-26-2025 End: 01-27-2025 inject 0.05 mL by subcutaneous injection at bedtime insulin NPH (HumuLIN N,NovoLIN N) 100 unit/mL injection Inject 0.05 mL (5 Units total) under the skin in the morning and at bedtime. Take 5 units in the morning and 5 units in the evening 10 mL 3 01/26/2025 01/27/2025 Discontinued Start: 01-07-2025 End: 01-07-2026 inject 5 [IU] by subcutaneous injection in the morning insulin NPH, Isophane, (NovoLIN N) 100 UNIT/ML injection Indications: Gestational diabetes mellitus (GDM), antepartum, gestational diabetes method of control unspecified Inject 5 Units under the skin in the morning and 5 Units before bedtime. 30 mL 3 01/07/2025 03/03/2025 Discontinued insulin NPH (Hum uLIN N,NovoLIN N) 100 unit/mL injection Inject under the skin. Active Problems Active Problems Problem Classification Problem Date Documented Date Episodic/Chronic Coagulation and hemorrhagic disorders (5 sources) Heterozygous Factor V Leiden mutation; Translations: [Activated protein C resistance] Onset: 02-08-2025 02-08-2025 Chronic Diabetes mellitus without complication (2 sources) Abnormal glucose tolerance test; Translations: [Other abnormal glucose] 12-23-2024 Episodic Diabetes or abnormal glucose tolerance complicating ; childbirth; or the puerperium (20 sources) Gestational diabetes mellitus; Translations: [Gestational diabetes mellitus in , unspecified control] Onset: 01-13-2025 12-23-2024 Episodic Hypertension complicating ; childbirth and the puerperium (2 sources) -induced hypertension; Translations: [Gestational [-induced] hypertension without significant proteinuria, unspecified trimester] 03-03-2025 Episodic Immunizations and screening for infectious disease (2 sources) Exposure to sexually transmissible disorder; Translations: [Contact with and (suspected) exposure to infections with a predominantly sexual mode of transmission] 01-20-2025 Episodic Menstrual disorders (3 sources) Missed period; Translations: [Irregular menstruation, unspecified] Onset: 12-23-2024 11-25-2024 Chronic Mood disorders (20 sources) Major depressive disorder; Translations: [Major depressive disorder, single episode, unspecified] Onset: 05-29-2016 05-29-2016 Chronic Other complications of ; puerperium affecting management of mother (3 sources) Central nervous system malformation in fetus affecting obstetrical care; Translations: [Choroid plexus cyst of fetus affecting care of mother, antepartum, single or unspecified fetus] 02-08-2025 Episodic Other complications of (3 sources) Maternal obesity complicating , childbirth and the puerperium, antepartum; Translations: [Obesity complicating , unspecified trimester] 02-08-2025 Chronic Other complications of (1 source) Obesity complicating , unspecified trimester; Translations: [Obesity complicating , unspecified trimester] Onset: 02-08-2025 Chronic Other complications of (2 sources) Decreased fertility; Translations: [Supervision of resulting from assisted reproductive technology, unspecified trimester] 12-23-2024 Episodic Other complications of (2 sources) Heterozygous Factor V Leiden mutation; Translations: [Other diseases of the blood and blood-forming organs and certain disorders involving the immune mechanism complicating , second trimester] 02-08-2025 Episodic Other complications of (1 source) Other diseases of the blood and blood-forming organs and certain disorders involving the immune mechanism complicating , second trimester; Translations: [Other diseases of the blood and blood-forming organs and certain disorders involving the immune mechanism complicating , second trimester] Onset: 02-08-2025 Episodic Other female genital disorders (2 sources) Vaginal discharge; Translations: [Other specified noninflammatory disorders of vagina] 01-20-2025 Episodic Other nutritional; endocrine; and metabolic disorders (20 sources) Obesity; Translations: [Obesity, unspecified] Onset: 07-03-2016 07-03-2016 Chronic Other nutritional; endocrine; and metabolic disorders (1 source) Morbid (severe) obesity due to excess calories; Translations: [Morbid (severe) obesity due to excess calories] Onset: 02-08-2025 Chronic Other and delivery including normal (18 sources) ; Translations: [Encounter for supervision of normal , unspecified, unspecified trimester] Onset: 10-20-2024 11-25-2024 Episodic Other screening for suspected conditions (not mental disorders or infectious disease) (3 sources) Encounter for test, result unknown; Translations: [Encounter for other specified screening] Onset: 10-18-2024 Episodic Residual codes; unclassified (1 source) Gestation period, 9 weeks; Translations: [9 weeks gestation of ] 11-25-2024 Episodic Residual codes; unclassified (2 sources) Gestation period, 13 weeks; Translations: [13 weeks gestation of ] 12-23-2024 Episodic Residual codes; unclassified (2 sources) Gestation period, 17 weeks; Translations: [17 weeks gestation of ] 01-20-2025 Episodic Residual codes; unclassified (1 source) Gestation period, 20 weeks; Translations: [20 weeks gestation of ] 02-08-2025 Episodic Residual codes; unclassified (2 sources) Gestation period, 23 weeks; Translations: [23 weeks gestation of ] 03-03-2025 Episodic Residual codes; unclassified (2 sources) Gestation period, 27 weeks; Translations: [27 weeks gestation of ] 03-30-2025 Episodic Residual codes; unclassified (2 sources) Conceived by in vitro fertilization; Translations: [Other specified health status] 03-30-2025 Episodic Residual codes; unclassified (1 source) 20 weeks gestation of ; Translations: [20 weeks gestation of ] Onset: 02-08-2025 Episodic Superficial injury; contusion (1 source) Contusion of right knee, initial encounter; Translations: [Contusion of right knee, initial encounter] Onset: 04-06-2024 Episodic Unclassified (13 sources) OB Reminders Onset: 11-26-2024 11-26-2024 Unclassified (1 source) Maternal care for (suspected) central nervous system malformation or damage in fetus, choroid plexus cysts, not applicable or unspecified; Translations: [Maternal care for (suspected) central nervous system malformation or damage in fetus, choroid plexus cysts, not applicable or unspecified] Onset: 02-08-2025 Unclassified (1 source) GDMA2 Onset: 02-08-2025 Unclassified (1 source) Fertility Preservation Onset: 02-08-2025 Unclassified (1 source) Gestational Diabetes Onset: 01-26-2025 Past or Other Problems Problem Classification Problem Date Documented Da te Episodic/Chronic Mood disorders (20 sources) Mood disorders Onset: 07-03-2016 07-03-2016 Other upper respiratory infections (20 sources) Viral upper respiratory tract infection; Translations: [Acute upper respiratory infection, unspecified] Onset: 09-25-2016 09-25-2016 Episodic Unclassified (1 source) Prediabetes in mother during 03-30-2025 Results Test Name Value Interpretation Reference Range Facil ity Urinalysis macro (dipstick) panel (U)on 03-03-2025 Bilirubin, UA Negative Negative - 4(70) +++ mg/dL [facility] Blood, UA Negative Negative - 50 Warren/mcL [facility] Clarity, UA Clear [facility] Color, UA Yellow [facility] Glucose, UA Negative Negative - 2000(110) ++++ mg/dL [facility] Interpretation and review of laboratory results Abnormal [facility] Ketones, UA Negative Negative - 160(16) ++++ mg/dL [facility] Leukocytes, UA Trace Negative - 500+++ Malick/mcL [facility] Nitrite, UA Negative Negative - Positive [facility] pH, UA 7 5 - 9 [facility] Protein, UA Negative Negative - 2000(20) ++++ mg/dL [facility] Spec Grav, UA 1.015 1 - 1.03 [facility] Urobilinogen, UA 0.2 0.2 - 12 mg/dL [facility] AFP, Maternalon 02-11-2025 Determined by Other [facility] Comment on above: Performed By: #### A AFPM #### [facility] [address] [place] [address] Case Supervisor: Kenneth Krishna MD Due Date SEE NOTE [facility] Comment on above: Result Comment: Resu lts for Estimated Due Date: 06 24 25 Performed By: #### A AFPM #### [facility] [address] [place] [address] Case Supervisor: Kenneth Krishna MD Family History No [facility] Comment on above: Performed By: #### A AFPM #### [facility] [address] [place] [address] Case Supervisor: Kenneth Krishna MD Gestat Age (exact) 20 wks, 4 days Normal [facility] Comment on above: Performed By: #### A AFPM #### [facility] [address] [place] [address] Case Supervisor: Kenneth Krishna MD Ins Req Matern Diab No [facility] Comment on above: Performed By: #### A AFPM #### [facility] [address] [place] [address] Case Supervisor: Kenneth Krishna MD Interpretation Screen Neg [facility] Comment on above: Result Comment: (NOT E) INTERPRETATION: SCREEN NEGATIVE for open spina bifida Neural Tube Defects (NTD) Negative Pre-Test Post-Test Cutoff Neural Tube Defects Risks 1:1030 < 1:06235 1:250 Comments: The risk of an open neural tube defect is less than the screening cut-off. This test was developed and its performance characteristics determined by [facility]. It has not been cleared or approved by the [place] Food and Drug Administration. This test was performed in a CLIA certified laboratory and is intended for clinical purposes. Performed By: #### A AFPM #### [facility] [address] [place] [address] Case Supervisor: Kenneth Krishna MD [age] [facility] Comment on above: Performed By: #### A AFPM #### [facility] [address] [place], [place] [id number] Case Supervisor: Kenneth Krishna MD Maternal Race Nonblack [facility] Comment on above: Performed By: #### A AFPM #### [facility] [address] [place], [place] [id number] Case Supervisor: Kenneth Krishna MD Maternal Weight 231.0 lbs. [facility] Comment on above: Performed By: #### A AFPM #### [facility] [address] [place], [place] [id number] Case Supervisor: Kenneth Krishna MD MoM for AFP 0.85 [facility] Comment on above: Performed By: #### A AFPM #### [facility] [address] [place], [place] [id number] Case Supervisor: Kenneth Krishna MD Number of Fetuses [facility] Comment on above: Performed By: #### A AFPM #### [facility] [address] [place], [place] [id number] Case Supervisor: Kenneth Krishna MD Patient's AFP 41 ng/mL [facility] Comment on above: Performed By: #### A AFPM #### [facility] [address] [place], [place] [id number] Case Supervisor: Kenneth Krishna MD Smoking No [facility] Comment on above: Performed By: #### A AFPM #### [facility] [address] [place], [place] [id number] Case Supervisor: Kenneth Krishna MD Specimen See Note [facility] Comment on above: Result Comment: (NOT E) Initial sample Performed By: [facility] [address] [facility] [place] [address] Manager Retention: Jose Joseph MD, PhD CLIA Number: [id number] Performed By: #### A AFPM #### [facility] [address] [place] [address] Case Supervisor: Kenneth Krishna MD Urinalysis macro (dipstick) panel (U)on 01-20-2025 Bilirubin, UA Negative Negative - 4(70) +++ mg/dL [facility] Blood, UA Negative Negative - 50 Warren/mcL [facility] Comment on above: trace Clarity, UA Clear [facility] Color, UA Renita [facility] Glucose, UA Negative Negative - 2000(110) ++++ mg/dL [facility] Interpretation and review of laboratory results Abnormal [facility] Ketones, UA Positive Negative - 160(16) ++++ mg/dL [facility] Leukocytes, UA Trace Negative - 500+++ Malick/mcL [facility] Nitrite, UA Negative Negative - Positive [facility] pH, UA 7 5 - 9 [facility] Protein, UA Trace Negative - 2000(20) ++++ mg/dL [facility] Spec Grav, UA 1.02 1 - 1.03 [facility] Urobilinogen, UA 1.0 0.2 - 12 mg/dL [facility],Urineon 12-24-2024 Cult,Urine Specimen Description .URINE Culture NO GROWTH Report Status FINAL 12/24/2024 Normal [facility] Comment on above: Performed By: #### U RC #### [facility] [address] [place] [id number] Case Supervisor: Jason Rodriguez MD [facility] [address] [place] [address] Case Supervisor: Sherwin Elam MD HIV Ag/Abon 12-24-2024 HIV Ag/Ab Non-Reactive Normal NR [facility] Comment on above: Result Comment: No l aboratory evidence of HIV infection. If acute HIV infection is suspected, consider testing for HIV-1 RNA. Performed By: #### R UBI, HBS, TREP, AHCV, HIVCMB, GLYHGB #### [facility] [place] [address] Case Supervisor: Jason Rodriguez MD #### CDP, SIDNEY #### [facility] [address] [place], [place] [phone] Case Supervisor: Sherwin Elam MD Hemoglobin A1Con 12-24-2024 Glucose [Mass/Vol] 94 mg/dL Normal [facility] Comment on above: Result Comment: The ADA and AACC recommend providing the estimated average glucose result to permit better patient understanding of their HBA1c result. Performed By: #### R UBI, HBS, TREP, AHCV, HIVCMB, GLYHGB #### [address] [id number] Case Supervisor: Jason Rodriguez MD #### KARRI, SIDNEY #### [facility] [address] [place], [place] [id number] Case Supervisor: Sherwin Elam MD HbA1c (Bld) [Mass fraction] 4.9 % Normal 4.0-6.0 [facility] Comment on above: Performed By: #### R UBI, HBS, TREP, AHCV, HIVCMB, GLYHGB #### [address] [id number] Case Supervisor: Jason Rodriguez MD #### KARRI, SIDNEY #### [facility] [address] [place], [place] [id number] Case Supervisor: Sherwin Elam MD Hep B Surf Agon 12-24-2024 Hep B Surf Ag Non-Reactive Normal NR [facility] Comment on above: Performed By: #### R UBI, HBS, TREP, AHCV, HIVCMB, GLYHGB #### [address] [id number] Case Supervisor: Jason Rodriguez MD #### KARRI, SIDNEY #### [facility] [address] [place], [place] [id number] Case Supervisor: Sherwin Elam MD Hep C Abon 12-24-2024 Hep C Ab Non-Reactive Normal NR [facility] Comment on above: Result Comment: The hepatitis C procedure used in [...] recommended by ordering HCV RNA by PCR. Performed By: #### R UBI, HBS, TREP, AHCV, HIVCMB, GLYHGB #### [address] [id number] Case Supervisor: Jason Rodriguez MD #### MARICHUY ZENGU #### [facility] [address] [place] [address] Case Supervisor: Sherwin Elam MD Rubella Ab, IgGon 12-24-2024 Rubella Ab, IgG 78.0 IU/mL Normal [facility] Comment on above: Result Comment: <10 NON REACTIVE Negative for Anti-Rubella IgG >=10 REACTIVE Positive for Anti Rubella IgG The presence of IgG antibody to Rubella virus is an indication of previous exposure either by prior infection or vaccination. Performed By: #### R UBI, HBS, TREP, AHCV, HIVCMB, GLYHGB #### [address] [id number] Case Supervisor: Jason Rodriguez MD #### KARRI, SIDNEY #### [facility] [address] [place] [address] Case Supervisor: Sherwin Elam MD T.pallidum Ab Screenon 12-24 T.pallidum Ab Screen Non-Reactive Normal [facility] Comment on above: Result Comment: T. pallidum antibodies are not detected. There is no serological evidence of infection with T. pallidum (early primary syphilis cannot be excluded). Retest in 2-4 weeks if syphilis is clinically suspect. Performed By: #### R UBI, HBS, TREP, AHCV, HIVCMB, GLYHGB #### [address] [place] [address] Case Supervisor: Jason Rodriguez MD #### CDPSIDNEY #### [facility] [address] [place] [address] Case Supervisor: Sherwin Elam MD CBC with Auto Differentialon 12-23-2024 Basophils (Bld) [#/Vol] 0.02 10*3/uL [facility] Basophils/100 WBC (Bld) 0 % 0 - 2 % [facility] Eosinophils (Bld) [#/Vol] 0.13 10*3/uL [facility] Eosinophils/100 WBC (Bld) 2 % 0 - 5 % [facility] Erythrocyte distribution width (RBC) [Ratio] 12.5 % 12.1 - 15.2 % [facility] Hematocrit (Bld) [Volume fraction] 35.9 % Low 36.0 - 46.0 % [facility] Hemoglobin (Bld) [Mass/Vol] 12.5 g/dL 12.0 - 16.0 g/dL [facility] Immature granulocytes (Bld) [#/Vol] 0.02 10*3/uL [facility] Immature granulocytes/100 WBC (Bld) 0 % 0 - 5 % [facility] Interpretation and review of laboratory results Abnormal [facility] Lymphocytes/100 WBC (Bld) 21 % 15 - 40 % [facility] Lymphocytes/100 WBC (Bld) 1.55 % [facility] MCH (RBC) [Entitic mass] 29.6 pg 26.0 - 34.0 pg [facility] MCHC (RBC) [Mass/Vol] 34.8 g/dL 31.0 - 37.0 g/dL [facility] [facility] M[facility] (RBC) [Entitic vol] 84.9 fL 80.0 - 100.0 fL [facility] Monocytes/100 WBC (Bld) 9 % High 4 - 8 % [facility] Monocytes/100 WBC (Bld) 0.65 % [facility] Neutrophils/100 WBC (Bld) 68 % 47 - 75 % [facility] Platelet mean volume (Bld) [Entitic vol] 9.9 fL 6.0 - 12.0 fL [facility] Platelets (Bld) [#/Vol] 238 10*3/uL [facility] RBC (Bld) [#/Vol] 4.23 10*6/uL 4.00 - 5.2 0 m/uL [facility] Segmented neutrophils/100 WBC (Bld) 4.87 % [facility] WBC other (Bld) [#/Vol] 7.[address] [facility] CBC with Diffon 12-23-2024 Abs. Basophil 0.02 k/uL Normal 0.00-0.20 [facility] Comment on above: Performed By: #### R UBI, HBS, TREP, AHCV, HIVCMB, GLYHGB #### [place] [id number] Case Supervisor: Jason Rodriguez MD #### SIDNEY ZENG #### [facility] [address] [place] [address] Case Supervisor: Sherwin Elam MD Abs.Imm.Granulocyte 0.02 k/uL Normal 0.00-0.30 [facility] Comment on above: Performed By: #### R UBI, HBS, TREP, AHCV, HIVCMB, GLYHGB #### [place] [id number] Case Supervisor: Jason Rodriguez MD #### SIDNEY ZENG #### [facility] [address] [place] [phone] Case Supervisor: Sherwin Elam MD Abs.Neutrophil (Seg) 4.87 k/uL Normal 2.5-7.0 [facility] Comment on above: Performed By: #### R UBI, HBS, TREP, AHCV, HIVCMB, GLYHGB #### [place] [id number] Case Supervisor: Jason Rodriguez MD #### CDP, SIDNEY #### [facility] [address] [place] [address] Case Supervisor: Sherwin Elam MD Basophils/100 WBC (Bld) 0 % Normal 0-2 [facility] Comment on above: Performed By: #### R UBI, HBS, TREP, AHCV, HIVCMB, GLYHGB #### [address] [phone] Case Supervisor: Jason Rodriguez MD #### CDP, SIDNEY #### [facility] [address] [place] [address] Case Supervisor: Sherwin Elam MD Eosinophils (Bld) [#/Vol] 0.13 10*3/uL Normal 0.00-0.40 [facility] Comment on above: Performed By: #### R UBI, HBS, TREP, AHCV, HIVCMB, GLYHGB #### [address] [phone] Case Supervisor: Jason Rodriguez MD #### KARRI, SIDNEY #### [facility] [address] [place] [address] Case Supervisor: Sherwin Elam MD Eosinophils/100 WBC (Bld) 2 % Normal 0-5 [facility] Comment on above: Performed By: #### R UBI, HBS, TREP, AHCV, HIVCMB, GLYHGB #### [address] [phone] Case Supervisor: Jason Rodriguez MD #### CDP, SIDNEY #### [facility] [address] [place] [address] Case Supervisor: Sherwin Elam MD Erythrocyte distribution width (RBC) [Ratio] 12.5 % Normal 12.1-15.2 [facility] Comment on above: Performed By: #### R UBI, HBS, TREP, AHCV, HIVCMB, GLYHGB #### [address] [phone] Case Supervisor: Jason Rodriguez MD #### KARRI, SIDNEY #### [facility] [address] [place], [place] [phone] Case Supervisor: Sherwin Elam MD Hematocrit (Bld) [Volume fraction] 35.9 % Low 36.0-46.0 [facility] Comment on above: Performed By: #### R UBI, HBS, TREP, AHCV, HIVCMB, GLYHGB #### [address] [phone] Case Supervisor: Jason Rodriguez MD #### KARRI, SIDNEY #### [facility] [address] [place] [address] Case Supervisor: Sherwin Elam MD Hemoglobin (Bld) [Mass/Vol] 12.5 g/dL Normal 12.0-16.0 [facility] Comment on above: Performed By: #### R UBI, HBS, TREP, AHCV, HIVCMB, GLYHGB #### [address] [phone] Case Supervisor: Jason Rodriguez MD #### KARRI, SIDNEY #### [facility] [address] [place], [place] [phone] Case Supervisor: Sherwin Elam MD Immature granulocytes/100 WBC (Bld) 0 % Normal 0-5 [facility] Comment on above: Performed By: #### R UBI, HBS, TREP, AHCV, HIVCMB, GLYHGB #### [address] [phone] Case Supervisor: Jason Rodriguez MD #### CDP, SIDNEY #### [facility] [address] [place] [address] Case Supervisor: Sherwin Elam MD Lymphocytes (Bld) [#/Vol] 1.55 10*3/uL Normal 1.00-4.80 [facility] Comment on above: Performed By: #### R UBI, HBS, TREP, AHCV, HIVCMB, GLYHGB #### [address] [phone] Case Supervisor: Jason Rodriguez MD #### CDP, SIDNEY #### [facility] [address] [place] [address] Case Supervisor: Sherwin Elam MD Lymphocytes/100 WBC (Bld) 21 % Normal 15-40 [facility] Comment on above: Performed By: #### R UBI, HBS, TREP, AHCV, HIVCMB, GLYHGB #### [address] [phone] Case Supervisor: Jason Rodriguez MD #### KARRI, SIDNEY #### [facility] [address] [place] [address] Case Supervisor: Sherwin Elam MD MCH (RBC) [Entitic mass] 29.6 pg Normal 26.0-34.0 [facility] Comment on above: Performed By: #### R UBI, HBS, TREP, AHCV, HIVCMB, GLYHGB #### [address] [phone] Case Supervisor: Jason Rodriguez MD #### CDP, SIDNEY #### [facility] [address] [place] [address] Case Supervisor: Sherwin Elam MD MCHC (RBC) [Mass/Vol] 34.8 g/dL Normal 31.0-37.0 [facility] Comment on above: Performed By: #### R UBI, HBS, TREP, AHCV, HIVCMB, GLYHGB #### [address] [place] [phone] Case Supervisor: Jason Rodriguez MD #### CDP, SIDNEY #### [facility] [address] [place], [place] [phone] Case Supervisor: Sherwin Elam MD MCV (RBC) [Entitic vol] 84.9 fL Normal 80.0-100.0 [facility] Comment on above: Performed By: #### R UBI, HBS, TREP, AHCV, HIVCMB, GLYHGB #### [address] [phone] Case Supervisor: Jason Rodriguez MD #### CDP, SIDNEY #### [facility] [address] [place], [place] [phone] Case Supervisor: Sherwin Elam MD Monocytes (Bld) [#/Vol] 0.65 10*3/uL Normal 0.00-1.00 [facility] Comment on above: Performed By: #### R UBI, HBS, TREP, AHCV, HIVCMB, GLYHGB #### [address] [phone] Case Supervisor: Jason Rodriguez MD #### CDP, SIDNEY #### [facility] [address] [place], [place] [phone] Case Supervisor: Sherwin Elam MD Monocytes/100 WBC (Bld) 9 % High 4-8 [facility] Comment on above: Performed By: #### R UBI, HBS, TREP, AHCV, HIVCMB, GLYHGB #### [address] [phone] Case Supervisor: Jason Rodriguez MD #### CDP, SIDNEY #### [facility] [address] [place], [place] [phone] Case Supervisor: Sherwin Elam MD Neutrophil (Seg) 68 % Normal 47-75 [facility] Comment on above: Performed By: #### R UBI, HBS, TREP, AHCV, HIVCMB, GLYHGB #### [address] [phone] Case Supervisor: Jason Rodriguez MD #### CDP, SDINEY #### [facility] [address] [place] [address] Case Supervisor: Sherwin Elam MD Platelet mean volume (Bld) [Entitic vol] 9.9 fL Normal 6.0-12.0 [facility] Comment on above: Performed By: #### R UBI, HBS, TREP, AHCV, HIVCMB, GLYHGB #### [address] [phone] Case Supervisor: Jason Rodriguez MD #### KARRI, SIDNEY #### [facility] [address] [place] [phone] ( Case Supervisor: Sherwin Elam MD Platelets (Bld) [#/Vol] 238 10*3/uL Normal 140-450 [facility] Comment on above: Performed By: #### R UBI, HBS, TREP, AHCV, HIVCMB, GLYHGB #### [address] [phone] Case Supervisor: Jason Rodriguez MD #### CDP, SIDNEY #### [facility] [address] [place] [phone] ( Case Supervisor: Sherwin Elam MD RBC (Bld) [#/Vol] 4.23 10*6/uL Normal 4.00-5.20 [facility] Comment on above: Performed By: #### R UBI, HBS, TREP, AHCV, HIVCMB, GLYHGB #### [address] [phone] Case Supervisor: Jason Rodriguez MD #### CDP, SIDNEY #### [facility] [address] [place], [place] [phone] Case Supervisor: Sherwin Elam MD WBC (Bld) [#/Vol] 7.2 10*3/uL Normal 3.5-11.0 [facility] Comment on above: Performed By: #### R UBI, HBS, TREP, AHCV, HIVCMB, GLYHGB #### [address] [phone] Case Supervisor: Jason Rodriguez MD #### CDP, SIDNEY #### [facility] [address] [place], [place] [phone] Case Supervisor: Sherwin Elam MD Drug Scr, Abuse, Uron 2024 Amphetamine(s),Ur Negative Normal NEG [facility] Comment on above: Result Comment: Cuto ff: 1000 ng/mL Performed By: #### R UBI, HBS, TREP, AHCV, HIVCMB, GLYHGB #### [address] [address] Case Supervisor: Jason Rodriguez MD #### CDP, SIDNEY #### [facility] [address] [place], [place] [phone] Case Supervisor: Sherwin Elam MD Barbiturate(s),Ur Negative Normal NEG [facility] Comment on above: Result Comment: Cuto ff: 200 ng/ml Performed By: #### R UBI, HBS, TREP, AHCV, HIVCMB, GLYHGB #### [facility] [address] [place], [place] [phone] Case Supervisor: Jason Rodriguez MD #### CDP, SIDNEY #### [facility] [address] [place], [place] [phone] Case Supervisor: Sherwin Elam MD Benzodiazepine(s) Negative Normal NEG [facility] Comment on above: Result Comment: Cuto ff: 200 ng/ml Performed By: #### R UBI, HBS, TREP, AHCV, HIVCMB, GLYHGB #### [address] [address] Case Supervisor: Jason Rodriguez MD #### CDP, SIDNEY #### [facility] [address] [place], [place] [phone] Case Supervisor: Sherwin Elam MD Cannabinoid(s),Ur Negative Normal NEG [facility] Comment on above: Result Comment: Cuto ff: 50 ng/ml Performed By: #### R UBI, HBS, TREP, AHCV, HIVCMB, GLYHGB #### [address] [phone] Case Supervisor: Jason Rodriguez MD #### CDP, SIDNEY #### [facility] [address] [place], [place] [phone] Case Supervisor: Sherwin Elam MD Fentanyl, Urine Negative Normal NEG [facility] Comment on above: Result Comment: Cuto ff: 5 ng/ml Performed By: #### R UBI, HBS, TREP, AHCV, HIVCMB, GLYHGB #### [address] [address] Case Supervisor: Jason Rodriguez MD #### CDP, SIDNEY #### [facility] [address] [place] [address] Case Supervisor: Sherwin Elam MD Methadone Ql (U) Negative Normal NEG [facility] Comment on above: Result Comment: Cuto ff: 300 ng/ml Performed By: #### R UBI, HBS, TREP, AHCV, HIVCMB, GLYHGB #### [address] [address] Case Supervisor: Jason Rodriguez MD #### CDP, SIDNEY #### [facility] [address] [place], [place] [phone] Case Supervisor: Sherwin Elam MD Opiate(s), Ur Negative Normal NEG [facility] Comment on above: Result Comment: Cuto ff: 300 ng/ml Performed By: #### R UBI, HBS, TREP, AHCV, HIVCMB, GLYHGB #### [address] [phone] Case Supervisor: Jason Rodriguez MD #### CDP, SIDNEY #### [facility] [address] [place], [place] [phone] Case Supervisor: Sherwin Elam MD Oxycodone, Urine Negative Normal NEG [facility] Comment on above: Result Comment: Cuto ff: 100 ng/ml Performed By: #### R UBI, HBS, TREP, AHCV, HIVCMB, GLYHGB #### [address] [address] Case Supervisor: Jason Rodriguez MD #### CDP, SIDNEY #### [facility] [address] [place], [place] [phone] Case Supervisor: Sherwin Elam MD Phencyclidine, Ur Negative Normal NEG [facility] Comment on above: Result Comment: Cuto ff: 25 ng/ml Performed By: #### R UBI, HBS, TREP, AHCV, HIVCMB, GLYHGB #### [address] [address] Case Supervisor: Jason Rodriguez MD #### CDP, SIDNEY #### [facility] [address] [place], [place] [phone] Case Supervisor: Sherwin Elam MD Interpretive Info This method is a screening test to detect only these drug classes as part of a Normal [facility] Comment on above: Result Comment: medi luis workup. Confirmatory testing by another method should be ordered if clinically indicated. Performed By: #### R UBI, HBS, TREP, AHCV, HIVCMB, GLYHGB #### [facility] [address] [place], [place] [phone] Case Supervisor: Jason Rodriguez MD #### CDP, SIDNEY #### [facility] [address] [place], [place] [phone] Case Supervisor: Sherwin Elam MD Drug Scr, Abuse, UrOrdered B y: Janay Vázquez on 12-23-2024 Cocaine Metabolite Negative Normal NEG [facility] Comment on above: Result Comment: Cuto ff: 300 ng/ml Performed By: #### R UBI, HBS, TREP, AHCV, HIVCMB, GLYHGB #### [facility] [address] [place], [place] [phone] Case Supervisor: Jason Rodriguez MD #### CDP, SIDNEY #### [facility] [address] [place] [address] Case Supervisor: Sherwin Elam MD Drug Screen, UrineOrdered By : Janay Vázquez on 12-23-2024 Amphetamine/Methamph etamine Negative [facility] Barbiturates Negative [facility] Benzodiazepines Negative [facility] Ecstasy Negative [facility] Methadone Negative [facility] Opiates Negative [facility] Oxycodone Negative [facility] Phencyclidine Negative [facility] Thc Marijuana, Urine Negative [facility] HIV 1&2 AB/AG Screen (P24 AG )on 12-23-2024 HIV 1&2 AB/AG Non-Reactive [facility] Hemoglobin A1con 12-23-2024 HbA1c (Bld) [Mass fraction] 4.9 % 4.0 - 6.0 % [facility] Hepatitis B surface antigeno n 12-23-2024 Hepatitis B Surface Antigen Non-Reactive [facility] Hepatitis C(HCV) Ab w/ Refle x to PCRon 12-23-2024 HCV Ab Ql (S) Non-Reactive [facility] MHPT CBC WITH DIFFon 02-20-2 025 Basophils/100 WBC (Bld) 0 % 0 - 2 % [facility] Eosinophils/100 WBC (Bld) 2 % 0 - 5 % [facility] Erythrocyte distribution width (RBC) [Ratio] 12.5 % 12.1 - 15.2 % [facility] Hematocrit (Bld) [Volume fraction] 35.9 % Low 36.0 - 46.0 % [facility] Hemoglobin (Bld) [Mass/Vol] 12.5 g/dL 12.0 - 16.0 g/dL [facility] Immature granulocytes/100 WBC (Bld) 0 % 0 - 5 % [facility] Interpretation and review of laboratory results Abnormal [facility] Lymphocytes/100 WBC (Bld) 21 % 15 - 40 % [facility] MCH (RBC) [Entitic mass] 29.6 pg 26.0 - 34.0 pg [facility] MCHC (RBC) [Mass/Vol] 34.8 g/dL 31.0 - 37.0 g/dL [facility] MCV (RBC) [Entitic vol] 84.9 fL 80.0 - 100.[address] [facility] [address]IL [facility].[address] [facility] [address] [facility]. EOSINOPHIL 0.[address] [facility] ABS. LYMPH 1.[address] [facility] ABS. MONOCYTE 0.[address] [facility] ABS.IMM.GRANULOCYTE 0.[address] [facility] ABS.NEUTROPHIL (SEG) 4.[address] [facility] PLATELET COUNT [address] [facility] WBC COUNT 7.2 [facility] Monocytes/100 WBC (Bld) 9 % High 4 - 8 % [facility] Platelet mean volume (Bld) [Entitic vol] 9.9 fL 6.0 - 12.0 fL [facility] RBC (Bld) [#/Vol] 4.23 10*6/uL 4.00 - 5.2 0 m/uL [facility] Segmented neutrophils/100 WBC (Bld) 68 % 47 - 75 % [facility] Original Ordering Provider: CAIN LIPSCOMBISYVANESSA [facility], ABUSE, URon 0 12-23-2024 PT AMPHETAMINE(S),UR Negative NEG [facility] Comment on above: Cutoff: 1000 ng/mL [facility] BARBITURATE(S),UR Negative NEG [facility] Comment on above: Cutoff: 200 ng/ml [facility] BENZODIAZEPINE(S) Negative NEG [facility] Comment on above: Cutoff: 200 ng/ml [facility] CANNABINOID(S),UR Negative NEG [facility] Comment on above: Cutoff: 50 ng/ml [facility] COCAINE METABOLITE Negative NEG [facility] Comment on above: Cutoff: 300 ng/ml [facility] FENTANYL, URINE Negative NEG [facility] Comment on above: Cutoff: 5 ng/ml [facility] INTERPRETIVE INFO This method is a screening test to detect only these drug classes as part of a [facility] Comment on above: medical workup. Conf irmatory testing by another method should be ordered if clinically indicated. [facility] METHADONE Negative NEG [facility] Comment on above: Cutoff: 300 ng/ml [facility] OPIATE(S), UR Negative NEG [facility] Comment on above: Cutoff: 300 ng/ml [facility] OXYCODONE, URINE Negative NEG [facility] Comment on above: Cutoff: 100 ng/ml [facility] PHENCYCLIDINE, UR Negative NEG [facility] Comment on above: Cutoff: 25 ng/ml Original Ordering Provider: CAIN ADAN [facility] No Panel Informationon 12-23 [facility] TYPE AND SCREENon 0 12-23-2024 ABO and Rh group Nom (Bld) Blood group B Rh(D) positive [facility] Blood group antibodies identified Nom Negative [facility] Type + Scrnon 12-23 Type + Scrn Negative Normal [facility] Comment on above: Performed By: #### R UBI, HBS, TREP, AHCV, HIVCMB, GLYHGB #### [facility] [address] [place] [address] Case Supervisor: Jason Rodriguez MD #### CDP, SIDNEY #### [facility] [address] [place] [address] Case Supervisor: Sherwin Elam MD Type and screenon 12-23-2024 Abo/Rh(D) Positive [facility] Urinalysis macro (dipstick) panel (U)on 12-23-2024 Bilirubin, UA Negative Negative - 4(70) +++ mg/dL [facility] Blood, UA Negative Negative - 50 Warren/mcL [facility] Clarity, UA Clear [facility] Color, UA Yellow [facility] Glucose, UA Negative Negative - 1999(110) ++++ mg/dL [facility] Interpretation and review of laboratory results Normal [facility] Ketones, UA Negative Negative - 160(16) ++++ mg/dL [facility] Leukocytes, UA Negative Negative - 500+++ Malick/mcL [facility] Nitrite, UA Negative Negative - Positive [facility] pH, UA 7 5 - 9 [facility] Protein, UA Negative Negative - 1999(20) ++++ mg/dL [facility] Spec Grav, UA 1.02 1 - 1.03 [facility] Urobilinogen, UA 1.0 0.2 - 12 mg/dL [facility] Urine Drug Screenon 12-23-19 25 Amphetamines Ql (U) Negative NEGATIVE [facility] Comment on above: Cutoff: 1000 ng/mL Barbiturates Screen Ql (U) Negative NEGATIVE [facility] Comment on above: Cutoff: 200 ng/ml Benzodiazepines Ql (U) Negative NEGATIVE [facility] Comment on above: Cutoff: 200 ng/ml Cannabinoids Screen Ql (U) Negative NEGATIVE [facility] Comment on above: Cutoff: 50 ng/ml Cocaine Ql (U) Negative NEGATIVE [employer] [facility] Comment on above: Cutoff: 300 ng/ml fentaNYL Ql (U) Negative NEGATIVE [facility] Comment on above: Cutoff: 5 ng/ml Methadone Ql (U) Negative NEGATIVE [facility] Comment on above: Cutoff: 300 ng/ml Opiates Screen Ql (U) Negative NEGATIVE [facility] Comment on above: Cutoff: 300 ng/ml oxyCODONE Ql (U) Negative NEGATIVE [facility] Comment on above: Cutoff: 100 ng/ml Phencyclidine Ql (U) Negative NEGATIVE [facility] Comment on above: Cutoff: 25 ng/ml Test Information This method is a screening test to detect only these drug classes as part of a medical workup. Confirmatory testing by another method should be ordered if clinically indicated. [facility]ver HCG ( test) Ql (U)o n 11-25-2024 Interpretation and review of laboratory results Abnormal [facility] Preg Test, Ur Positive Negative [facility] US OB TRANSVAGINALon 025 US OB TRANSVAGINAL TITLE OF EXAM: OB Ultrasound: REASON FOR EXAM: Dating COMPARISON: None TECHNIQUE: Grayscale and M-mode Doppler imaging is performed. FINDINGS: Measurements: heart rate: 174 bpm Sac: 4.6 cm CRL: 3.2 cm GA for sonogram: 10.1 wk (09.3-10.9) Cervix Length: 4.6 cm JANIYA: 06/22/2025 Anatomy Observed: Gestational Sac: Visualized Yolk Sac: Visualized Pole: Visualized Cardiac Activity: Visualized 174 bpm Uterus: Normal Uterine Position: Anteverted, anteflexed Right Ovary: 3.2 x 2.8 x 2.3 cm Volume: 10.6 cc Left Ovary: Not visualized Cervical Length: 4.6 cm IMPRESSION: Single viable intrauterine gestation with an estimated ultrasound age of 10 weeks 0 days. Dictated and transcribed 11/26/24/dpd This report has been electronically signed and approved by the interpreting radiologist. Normal Not Available Comment on above: Order Comment: US OB TRANSVAGINAL No LMP recorded. Urinalysis macro (dipstick) panel (U)on 11-25-2024 Bilirubin, UA Negative Negative - 4(70) +++ mg/dL [facility] Blood, UA Negative Negative - 50 Warren/mcL [facility] Clarity, UA Clear [facility] Color, UA Yellow [facility] Glucose, UA Negative Negative - 1999(110) ++++ mg/dL [facility] Interpretation and review of laboratory results Normal [facility] Ketones, UA Negative Negative - 160(16) ++++ mg/dL [facility] Leukocytes, UA Negative Negative - 500+++ Malick/mcL [facility] Nitrite, UA Negative Negative - Positive [facility] pH, UA 6 5 - 9 [facility] Protein, UA Negative Negative - 2000(20) ++++ mg/dL [facility] Spec Grav, UA 1.02 1 - 1.03 [facility] Urobilinogen, UA 0.2 0.2 - 12 mg/dL [facility] HCG, Quanton 10-20-2024 HCG, Quant 812.4 mIU/mL High <5 [facility] Comment on above: Result Comment: Non-preg premeno <=5 Postmeno <=8 Male <=3 If HCG results do not concur with clinical observations, additional testing to confirm results is recommended. Performed By: #### R UBI, HBS, TREP, AHCV, HIVCMB, GLYHGB #### [facility] [address] [place], [place] [phone] Case Supervisor: Jason Rodriguez MD #### KARRI, SIDNEY #### [facility] [address] [place] [address] Case Supervisor: Sherwin Elam MD HCG, Quantitative, on 10-20-2024 HCG.beta subunit Qn 812.4 m[IU]/mL High NINF B on [facility] Comment on above: Non-preg premeno <=5 Postmeno <=8 Male <=3 If HCG results do not concur with clinical observations, additional testing to confirm results is recommended. Interpretation and review of laboratory results Abnormal [facility] HCG, Quanton 10-18-2024 HCG, Quant 293.1 mIU/mL High <5 [facility] Comment on above: Result Comment: Non-preg premeno <=5 Postmeno <=8 Male <=3 If HCG results do not concur with clinical observations, additional testing to confirm results is recommended. Performed By: #### R UBI, HBS, TREP, AHCV, HIVCMB, GLYHGB #### [place] [id number] [place], [place] [phone] Case Supervisor: Jason Rodriguez MD #### KARRI, SIDNEY #### [facility] [address] [place] [address] Case Supervisor: Sherwin Elam MD HCG, Quantitative, on 10-18-2024 HCG.beta subunit Qn 293.1 m[IU]/mL High NINF B on [facility] Comment on above: Non-preg premeno <=5 Postmeno <=8 Male <=3 If HCG results do not concur with clinical observations, additional testing to confirm results is recommended. Interpretation and review of laboratory results Abnormal [facility] XR knee RT 4V*on 04-06-2024 XR knee RT 4V* [facility] [place] [address] [place] [address] XRay Report Signed Patient: Kevin Mckeon MR#: [id number] : 1995 Acct:[id number] Age/Sex: 28 / F ADM Date: 04/06/24 Loc: [id number] Room: Type: [facility] Attending Dr: Renita MONTOYA Copies to: UMM Soliz FNP-BC Ordering Provider: Renita Fu APRN Date of Service: 04/06/24 XR/XR knee RT 4V*: [id number] - Injury, unspecified, initial encounter RIGHT KNEE - 4 views COMPARISON: None CLINICAL DATA: Patient tripped this morning and landed on right knee. Anterior and medial pain. AP, lateral and both oblique views were obtained. No acute fracture or dislocation is identified. There is no significant knee effusion or focal soft tissue swelling. XR/XR knee RT 4V* IMPRESSION: NO ACUTE BONY INJURY. Impression dictated by: Justina Munson M.D.04/06/2024 12:42 PM Dictation Location: [place] [address] Transcribed By: [facility] 04/06/24 1242 Dictated By: Justina Munson MD 04/06/24 1240 Signed By: 04/06/24 1242 Normal [facility] Estradiolon 04-15-2022 Estradiol 257.1 pg/mL 27 - 314 pg/mL [employer] Comment on above: FEMALES: Normally menstruating Luteal phase 33-298 Follicular phase 27-156 Midcycle phase 48-314 Postmenopausal (untreated) 5-50 Fulvestrant treatment will show an increased estradiol concentration with this methodology. Alternate methodologies are available upon request. No Panel Informationon 04-15 [employer] Progesteroneon 04-15-2022 Progesterone 39.8 ng/mL [employer] Comment on above: FEMALE (healthy): Follicular phase 0.06-0.89 Ovulation phase 0.12-12.00 Luteal phase 1.83-23.90 Postmenopausal <0.13 HCG, Quantitative, on 02-08-2022 hCG Quant <1 <5 mIU/mL [employer] Comment on above: Non-preg premeno <=5 Postmeno <=8 Male <=3 If HCG results do not concur with clinical observations, additional testing to confirm results is recommended. Elevated results not associated with may be found in patients with other diseases such as tumors of the germ cells (testis, ovaries, etc.), bladder, pancreas, stomach, lungs, and liver. [employer] TSHon 02-08-2022 TSH Qn 1.05 m[IU]/L [facility] [employer] [facility] [employer] Estradiolon 01-14-2022 Estradiol 326 pg/mL High 27 - 314 pg/mL [facility] Comment on above: FEMALES: Normally menstruating Luteal phase 33-298 Follicular phase 27-156 Midcycle phase 48-314 Postmenopausal (untreated) 5-50 Fulvestrant treatment will show an increased estradiol concentration with this methodology. Alternate methodologies are available upon request. Interpretation and review of laboratory results Abnormal [employer] HCG, Quantitative, on 01-14-2022 hCG Quant <1 <5 IU/L [employer] Comment on above: Non-preg premeno <=5 Postmeno <=8 Male <=3 If HCG results do not concur with clinical observations, additional testing to confirm results is recommended. Elevated results not associated with may be found in patients with other diseases such as tumors of the germ cells (testis, ovaries, etc.), bladder, pancreas, stomach, lungs, and liver. [employer] No Panel Informationon 01-14 [employer] Progesteroneon 01-14-2022 Progesterone 47.49 ng/mL [facility] Comment on above: FEMALE (healthy): Follicular phase 0.06-0.89 Ovulation phase 0.12-12.00 Luteal phase 1.83-23.90 Postmenopausal <0.13 Estradiolon 01-08-2022 Estradiol 251 pg/mL 27 - 314 pg/mL [facility] Comment on above: FEMALES: Normally menstruating Luteal phase 33-298 Follicular phase 27-156 Midcycle phase 48-314 Postmenopausal (untreated) 5-50 Fulvestrant treatment will show an increased estradiol concentration with this methodology. Alternate methodologies are available upon request. No Panel Informationon 01-08 [employer] Progesteroneon 01-08-2022 Progesterone 50.58 ng/mL [facility] Comment on above: FEMALE (healthy): Follicular phase 0.06-0.89 Ovulation phase 0.12-12.00 Luteal phase 1.83-23.90 Postmenopausal <0.13 HCG, Quantitative, on 12-10-2021 hCG Quant <1 <5 IU/L [employer] Comment on above: Non-preg premeno <=5 Postmeno <=8 Male <=3 If HCG results do not concur with clinical observations, additional testing to confirm results is recommended. Elevated results not associated with may be found in patients with other diseases such as tumors of the germ cells (testis, ovaries, etc.), bladder, pancreas, stomach, lungs, and liver. [employer] Estradiolon 09-26-2021 Estradiol 434 pg/mL High 27 - 314 pg/mL [facility] Comment on above: FEMALES: Normally menstruating Luteal phase 33-298 Follicular phase 27-156 Midcycle phase 48-314 Postmenopausal (untreated) 5-50 Fulvestrant treatment will show an increased estradiol concentration with this methodology. Alternate methodologies are available upon request. Interpretation and review of laboratory results Abnormal [facility] HCG, Quantitative, on 09-26-2021 hCG Quant 652 High <5 IU/L [employer] Comment on above: Non-preg premeno <=5 Postmeno <=8 Male <=3 If HCG results do not concur with clinical observations, additional testing to confirm results is recommended. Elevated results not associated with may be found in patients with other diseases such as tumors of the germ cells (testis, ovaries, etc.), bladder, pancreas, stomach, lungs, and liver. Interpretation and review of laboratory results Abnormal [email or web address] No Panel Informationon 09-26 [place] Progesteroneon 09-26-2021 Progesterone 45.63 ng/mL [facility] Comment on above: FEMALE (healthy): Follicular phase 0.06-0.89 Ovulation phase 0.12-12.00 Luteal phase 1.83-23.90 Postmenopausal <0.13 Estradiolon 09-17-2021 Estradiol 389 pg/mL High 27 - 314 pg/mL [facility] Comment on above: FEMALES: Normally menstruating Luteal phase 33-298 Follicular phase 27-156 Midcycle phase 48-314 Postmenopausal (untreated) 5-50 Fulvestrant treatment will show an increased estradiol concentration with this methodology. Alternate methodologies are available upon request. Interpretation and review of laboratory results Abnormal [place] No Panel Informationon 09-17 [place] Progesteroneon 09-17-2021 Progesterone 15.02 ng/mL [employer] Comment on above: FEMALE (healthy): Follicular phase 0.06-0.89 Ovulation phase 0.12-12.00 Luteal phase 1.83-23.90 Postmenopausal <0.13 TSH without ReflexOrdered By : Pedro Luis Dorantes on 06-25-2021 TSH Qn 1.08 m[IU]/L [employer] Phone: [employer] Phone: HCG, Quantitative, on 02-15-2021 hCG Quant <1 <5 IU/L [employer] Phone: Comment on above: Non-preg premeno <=5 Postmeno <=8 Male <=3 If HCG results do not concur with clinical observations, additional testing to confirm results is recommended. Elevated results not associated with may be found in patients with other diseases such as tumors of the germ cells (testis, ovaries, etc.), bladder, pancreas, stomach, lungs, and liver. Estradiolon 01-12-2021 Estradiol 66 pg/mL 27 - 314 pg/mL [employer] Phone: Comment on above: FEMALES: Normally menstruating Luteal phase 33-298 Follicular phase 27-156 Midcycle phase 48-314 Postmenopausal (untreated) 5-50 Fulvestrant treatment will show an increased estradiol concentration with this methodology. Alternate methodologies are available upon request. Follicle Stimulating Hormone on 01-12-2021 FSH 5.3 U/L 1.7 - 21.5 U/L [employer] Phone: Comment on above: Reference Range: Male: 1.5-12.4 Ovulating Female: Follicular Phase 3.5-12.5 Ovulation Phase 4.7-21.5 Luteal Phase 1.7-7.7 Postmenopausal Female: 25.8-134.8 HIV Screenon 01-12-2021 HIV Ag/Ab NONREACTIVE NONREACTIVE [employer] Work Phone: Comment on above: No laboratory eviden ce of HIV infection. If acute HIV infection is suspected, consider testing for HIV-1 RNA. Hepatitis B Core Antibody, T otalon 01-12-2021 Hep B Core Total Ab NONREACTIVE NONREACTIVE [facility] [employer] Work Phone: Hepatitis B Surface Antigeno n 01-12-2021 Hepatitis B Surface Ag NONREACTIVE NONREACTIVE [employer] Work Phone: Hepatitis C Antibodyon 01-12 Hepatitis C Ab NONREACTIVE NONREACTIVE [facility] Work Phone: Comment on above: The hepatitis C procedure used in our [...] recommended by ordering HCV RNA by PCR. Luteinizing Hormoneon 2020 LH 10.8 U/L 1.0 - 95.6 U/L [employer] Work Phone: Comment on above: Reference Range: Male: 1.7-8.6 Ovulating Female: Follicular Phase 2.4-12.6 Ovulation Phase 14.0-95.6 Luteal Phase 1.0-11.4 Postmenopausal Female: 7.7-58.5 Progesteroneon 01-12-2021 Progesterone 0.13 ng/mL [employer] Phone: Comment on above: FEMALE (healthy): Follicular phase 0.06-0.89 Ovulation phase 0.12-12.00 Luteal phase 1.83-23.90 Postmenopausal <0.13 Prolactinon 01-12-2021 Prolactin 7.58 ug/L 4.79 - 23.30 ug/L [employer] Phone: Comment on above: The presence of macr oprolactin may cause interference in female patients with various endocrinological diseases or during . Rubella antibody, IgGon 01-01 Rubella virus IgG Ql (S) 52.4 IU/mL [employer] Phone: Comment on above: REFERENCE RANGE: <5.0 NON-REACTIVE (non-immune) 5.0 TO 9.9 EQUIVOCAL >=10.0 REACTIVE (immune) HCG, Quantitative, on 01-11-2021 hCG Quant <1 <5 IU/L [employer] Phone: Comment on above: Non-preg premeno <=5 Postmeno <=8 Male <=3 If HCG results do not concur with clinical observations, additional testing to confirm results is recommended. Elevated results not associated with may be found in patients with other diseases such as tumors of the germ cells (testis, ovaries, etc.), bladder, pancreas, stomach, lungs, and liver. TSH without Reflexon 021 TSH Qn 1.08 m[IU]/L [employer] Phone: TYPE AND SCREENon 01-11-2021 ABO/Rh Positive [employer] Phone: Arm Band Number NOT REPORTED [employer] Work Phone: Expiration Date 01/14/2021,2359 [employer] Phone: Vital Signs Date Time Vital Sign Value Performing Clinician Facility 03-30-2025 09:26-0400 Body weight 103.87 kg Christy MCKOY Work Phone: [facility] 03-30-2025 09:26-0400 Diastolic blood pressure 80 mm[Hg] Christy MCKOY Work Phone: [facility] 03-30-2025 09:26-0400 Systolic blood pressure 122 mm[Hg] Christy MCKOY Work Phone: [facility] 03-03-2025 09:00-0400 Body weight 105.14 kg [employer] Work Phone: [facility] [employer] 03-03-2025 09:00-0400 Diastolic blood pressure 80 mm[Hg] Cain Mendoza [employer] Work Phone: [facility] 03-03-2025 09:00-0400 Systolic blood pressure 120 mm[Hg] Cain Donaldson DO Work Phone: [facility] 02-08-2025 09:34-0400 Body height 157.5 cm Jaida Chadwick MD Work Phone: [facility] 02-08-2025 09:34-0400 Body mass index (BMI) [Ratio] 42.24 kg/m2 Jaida Chadwick MD Work Phone: [facility] 02-08-2025 09:34-0400 Body weight 104.78 kg Jaida Chadwick MD Work Phone: [facility] 02-08-2025 09:34-0400 Diastolic blood pressure 80 mm[Hg] Jaida Chadwick MD Work Phone: [facility] 02-08-2025 09:34-0400 Heart rate 95 /min Jaida Chadwick MD Work Phone: [facility] 02-08-2025 09:34-0400 Systolic blood pressure 125 mm[Hg] Jaida Chadwick MD Work Phone: [facility] 01-26-2025 14:44-0400 Body height 157.5 cm Apollo Sandoval [employer] ASSISTANT MANAGER-GROUND SUPPORT EQUIPMENT ASSEMBLER Work Phone: [facility] 01-26-2025 14:44-0400 Body mass index (BMI) [Ratio] 41.88 kg/m2 Apollo Sandoval CASINO ASSISTANT MANAGER-GROUND SUPPORT EQUIPMENT ASSEMBLER Work Phone: [facility] 01-26-2025 14:44-0400 Body weight 103.87 kg Apollo Sandoval CASINO ASSISTANT MANAGER-GROUND SUPPORT EQUIPMENT ASSEMBLER Work Phone: [facility] 01-26-2025 14:44-0400 Diastolic blood pressure 60 mm[Hg] Apollo Sandoval CASINO ASSISTANT MANAGER-GROUND SUPPORT EQUIPMENT ASSEMBLER Work Phone: [facility] 01-26-2025 14:44-0400 Heart rate 87 /min Apollo Sandoval CASINO ASSISTANT MANAGER-GROUND SUPPORT EQUIPMENT ASSEMBLER Work Phone: [facility] 01-26-2025 14:44-0400 Systolic blood pressure 115 mm[Hg] Apollo Michelle GIRALDOGROUND SUPPORT EQUIPMENT ASSEMBLER Work Phone: [facility] 01-26-2025 14:25-0400 Body mass index (BMI) [Ratio] 41.87 kg/m2 [facility] 01-26-2025 14:25-0400 Body weight 103.87 kg [facility] 01-20-2025 08:42-0400 Body weight 103.87 kg Christy MCKOY Work Phone: [facility] 01-20-2025 08:42-0400 Diastolic blood pressure 70 mm[Hg] Christy MCKOY Work Phone: [facility] 01-20-2025 08:42-0400 Systolic blood pressure 120 mm[Hg] Christy MCKOY Work Phone: [facility] 12-30-2024 10:57-0500 Body height 157.5 cm Jaida Chadwcik MD Work Phone: [facility] 11-25-2024 15:25-0500 Body weight 105.23 kg Noms Nurse [facility] 11-25-2024 15:25-0500 Diastolic blood pressure 72 mm[Hg] Noms Nurse [facility] 11-25-2024 15:25-0500 Systolic blood pressure 124 mm[Hg] Noms Nurse [facility] 04-06-2024 12:06-0400 Body height 157.48 cm PHYSICIAN NO [facility] 04-06-2024 12:06-0400 Body mass index (BMI) [Ratio] 42 kg/m2 PHYSICIAN NO [facility] 04-06-2024 12:06-0400 Body weight 104.32 kg PHYSICIAN NO [facility] 04-06-2024 12:06-0400 Diastolic blood pressure 80 mm[Hg] PHYSICIAN NO [facility] 04-06-2024 12:06-0400 Heart rate 80 /min PHYSICIAN NO [facility] 04-06-2024 12:06-0400 Respiratory rate 20 /min PHYSICIAN NO [facility] 04-06-2024 12:06-0400 SaO2% (BldA) [Mass fraction] 99 % PHYSICIAN NO [facility] 04-06-2024 12:06-0400 Systolic blood pressure 124 mm[Hg] PHYSICIAN NO [facility] Encounters Encounter Date Encounter Type Care Provider Facility Start: 03-30-2025 End: 03-30-2025 Bamboo flowsheet Christy MCKOY Work Phone: [facility] Start: 03-30-2025 End: 03-30-2025 Bamboo flowsheet Christy MCKOY Work Phone: [facility] Start: 03-30-2025 End: 03-30-2025 Office outpatient visit 25 minutes [facility] Phone: [facility] Comment on above: Insulin controlled g estational diabetes mellitus (GDM) in second trimester (Primary Dx); Recurrent major depressive disorder, in partial remission; Prediabetes in mother during Start: 03-30-2025 End: 03-30-2025 ambulatory [facility] Start: 03-30-2025 End: 03-30-2025 flow sheet Christy MCKOY Work Phone: [facility] Comment on above: Second trimester pre gnancy; 27 weeks gestation of ; Gestational diabetes mellitus (GDM), antepartum, gestational diabetes method of control unspecified; Factor 5 Leiden mutation, heterozygous (CMS/HCC); Conceived by in vitro fertilization Start: 03-30-2025 End: 03-30-2025 ambulatory CHRISTY BURNETT Not Available Start: 03-22-2025 End: 03-22-2025 Telephone encounter Sonya Lomax RN [facility] Start: 03-16-2025 End: 03-16-2025 Telephone encounter Sonya Lomax RN [facility] Start: 03-16-2025 End: 03-16-2025 ambulatory CAIN DONALDSON [facility] Start: 03-11-2025 End: 03-11-2025 Telephone encounter Naomy Thompson RN Work Phone: [facility] Start: 03-07-2025 End: 03-07-2025 Orders Only Cole Wade MD Work Phone: [facility] Comment on above: Insulin controlled g estational diabetes mellitus (GDM) in second trimester; Prediabetes in mother during Start: 03-03-2025 End: 03-03-2025 Bamboo flowsheet Cain Mendoza DO Work Phone: [facility] Start: 03-03-2025 End: 03-03-2025 Bamboo flowsheet Cain Mendoza DO Work Phone: [facility] Start: 03-03-2025 End: 03-03-2025 flow sheet Cain Mendoza DO Work Phone: [facility] Comment on above: 23 weeks gestation o f ; Second trimester ; induced hypertension, antepartum; Insulin controlled gestational diabetes mellitus (GDM) during , antepartum Start: 03-03-2025 End: 03-03-2025 ambulatory CAIN MENDOZA Not Available Start: 03-01-2025 End: 03-01-2025 Telephone encounter Valerie Le RN [facility] Start: 02-28-2025 End: 02-28-2025 Orders Only Devika Pulido PA-C Work Phone: [facility] Comment on above: Insulin controlled g estational diabetes mellitus (GDM) in second trimester; Prediabetes in mother during Start: 02-24-2025 End: 02-24-2025 Office outpatient visit 25 minutes Apollo LAWRENCE Work Phone: [facility] Comment on above: Insulin controlled g estational diabetes mellitus (GDM) in second trimester (Primary Dx); Recurrent major depressive disorder, in partial remission; Bipolar 1 disorder (CMS-HCC); Prediabetes in mother during Start: 02-24-2025 End: 02-24-2025 ambulatory APOLLO SANDOVAL [facility] Start: 02-17-2025 End: 02-17-2025 Telephone encounter Christy Prado LPN [facility] Start: 02-15-2025 End: 02-15-2025 Telephone encounter Valerie Le RN [facility] Start: 02-08-2025 End: 02-08-2025 Office consultation new/estab patient 60 min Jaida Chadwick MD Work Phone: [facility] Comment on above: Insulin controlled g estational diabetes mellitus (GDM) in second trimester (Primary Dx); Prediabetes in mother during ; 20 weeks gestation of ; Choroid plexus cyst of fetus affecting care of mother, antepartum, single or unspecified fetus; Heterozygous factor V Leiden affecting in second trimester, antepartum; Severe obesity due to excess calories affecting , antepartum ([facility]-HCC); Bipolar disorder, in full remission, most recent episode depressed Start: 02-08-2025 End: 02-08-2025 Orders Only Christy Prado LPN [facility] Comment on above: Insulin controlled g estational diabetes mellitus (GDM) in second trimester (Primary Dx); Choroid plexus cyst of fetus affecting care of mother, antepartum, single or unspecified fetus; Heterozygous factor V Leiden affecting in second trimester, antepartum; Severe obesity due to excess calories affecting , antepartum ([facility]-HCC) Start: 02-03-2025 End: 02-03-2025 Telephone encounter Christy Prado LPN [facility] Start: 01-27-2025 End: 01-27-2025 Orders Only Apollo LAWRENCE Work Phone: [facility] Start: 01-26-2025 End: 01-26-2025 Office outpatient new 45 minutes Apollo LAWRENCE Work Phone: [facility] Comment on above: Insulin controlled g estational diabetes mellitus (GDM) in second trimester (Primary Dx) Start: 01-26-2025 End: 01-27-2025 Refill Apollo Guptaleatha LAWRENCE Work Phone: [facility] Start: 01-26-2025 End: 01-26-[address] Work Phone: [facility] Comment on above: Insulin controlled g estational diabetes mellitus (GDM) in second trimester Start: 01-20-2025 End: 01-20-2025 Bamboo flowsheet Christy MCKOY Work Phone: [facility] Start: 01-20-2025 End: 01-20-2025 Bamboo flowsheet Christy MCKOY Work Phone: [facility] Start: 01-20-2025 End: 01-20-2025 Patient encounter procedure Christy MCKOY Work Phone: [facility] Work Phone: Start: 01-20-2025 End: 01-20-2025 flow sheet Christy MCKOY Work Phone: [facility] Comment on above: Well woman exam with routine gynecological exam; 17 weeks gestation of ; Second trimester ; Exposure to STD; Vaginal discharge Start: 01-20-2025 End: 01-20-2025 ambulatory CHRISTY BURNETT Not Available Start: 01-13-2025 End: 01-13-2025 Chart abstracting Scanning Provider External [facility] Start: 12-30-2024 End: 12-30-2024 Chart abstracting Jaida Chadwick MD Work Phone: [facility] Start: 12-29-2024 End: 12-29-2024 Telephone encounter Claudine Hawthorne [facility] Start: 12-23-2024 End: 12-23-2024 [facility] Start: 12-23-2024 End: 12-23-2024 Subsequent hospital visit by physician [facility] Start: 12-23-2024 End: 12-23-2024 Bamboo flowsheet Cain Mendoza DO Work Phone: [facility] Start: 12-23-2024 End: 12-24-2024 Bamboo flowsheet Cain Mendoza DO Work Phone: [facility] Start: 12-23-2024 End: 12-24-2024 Clinisync Result Encounter Cain Mendoza DO Work Phone: [facility] External Department Unsolicited Start: 12-23-2024 End: 12-23-2024 flow sheet Cain Mendoza DO Work Phone: [facility] Comment on above: Second trimester pre gnancy; 13 weeks gestation of ; Gestational diabetes mellitus (GDM), antepartum, gestational diabetes method of control unspecified; Elevated glucose tolerance test; resulting from in vitro fertilization, antepartum Start: 12-23-2024 End: 12-23-2024 ambulatory CAIN MENDOZA Not Available Start: 11-25-2024 End: 11-25-2024 ambulatory [facility] Mendoza Nurse [facility] Comment on above: GA: 9w6d Start: 10-20-2024 End: 10-20-2024 ambulatory [facility] Start: 10-20-2024 End: 10-20-2024 Subsequent hospital visit by physician [facility] Start: 10-18-2024 End: 10-18-2024 ambulatory [facility] Start: 10-18-2024 End: 10-18-2024 Subsequent hospital visit by physician [facility] Start: 04-06-2024 End: 04-06-2024 ambulatory PHYSICIAN TWIN Nunez [facility] Work Phone: Start: 04-06-2024 End: 04-06-2024 Patient encounter procedure PHYSICIAN TWIN [facility] [place] Work Phone: Start: 04-15-2022 End: 04-15-2022 Subsequent hospital visit by physician [facility] Start: 02-08-2022 End: 02-08-2022 Subsequent hospital visit by physician [facility] Start: 01-14-2022 End: 01-14-2022 Subsequent hospital visit by physician [facility] Start: 01-07-2022 End: 01-07-2022 Subsequent hospital visit by physician [facility] Start: 12-10-2021 End: 12-10-2021 Subsequent hospital visit by physician [facility] Start: 09-26-2021 End: 09-26-2021 Subsequent hospital visit by physician [facility] Start: 09-17-2021 End: 09-17-2021 Subsequent hospital visit by physician [facility] Start: 06-25-2021 End: 06-25-2021 Subsequent hospital visit by physician [facility] Start: 02-15-2021 End: 02-15-2021 Subsequent hospital visit by physician [facility] Covid19 Pat Screening Schedule [facility] Comment on above: Arrived Start: 01-11-2021 End: 01-11-2021 Subsequent hospital visit by physician [facility] Procedures Date Procedure Procedure Detail Performing Clinician Start: 03-03-2025 Urnls dip stick/tabl et rgnt non-auto w/o micrscp Cain Donaldson DO Work Phone: Start: 01-20-2025 Urnls dip stick/tabl et rgnt non-auto w/o micrscp Christy MCKOY Work Phone: Start: 01-20-2025 Microscopic observat ion [Identifier] in Cervix by Cyto stain Jaida Chadwick MD Work Phone: Start: 12-23-2024 End: 12-23-2024 Blood count complete auto&auto difrntl wbc Cain Donaldson MD Work Phone: Start: 12-23-2024 End: 12-23-2024 Drug tst prsmv instrmnt chem analyzers pr date Cain Donaldson MD Work Phone: Start: 12-23-2024 MHPT CBC WITH DIFF Shakira Donaldson DO Work Phone: Start: 12-23-2024 MHPT DRUG SCR, ABUSE, UR Cain Mendoza DO Work Phone: Start: 12-23-2024 Antibody screen Jaida quintana MD Work Phone: Start: 12-23-2024 Drug scrn 1+ class nonchromo Not In System Ref Prov Start: 12-23-2024 HIV 1&2 AB/AG SCREEN (P24 AG) Not In System Ref Prov Start: 12-23-2024 Iaad ia hepatitis b surface antigen Not In System Ref Prov Start: 12-23-2024 TYPE AND SCREEN Not In System Ref Prov Start: 12-23-2024 Urnls dip stick/tabl et rgnt non-auto w/o micrscp Cain Mendoza DO Work Phone: Start: 11-25-2024 Urnls dip stick/tabl et rgnt non-auto w/o micrscp Cain Mendoza DO Work Phone: Start: 10-20-2024 Gonadotropin chorion ic quantitative Unknown Provider Result Start: 10-18-2024 Gonadotropin chorion ic quantitative Unknown Provider Result Start: 04-06-2024 X-ray of right knee PHY SICIAN NO FAMILY Start: 04-15-2022 Assay of estradiol Summer Dorantes MD Work Phone: Start: 02-08-2022 Assay of thyroid stimulating hormone tsh Pedro Luis Dorantes MD Work Phone: Start: 01-14-2022 Gonadotropin chorion ic quantitative Pedro Luis Dorantes MD Work Phone: Start: 01-07-2022 Assay of estradiol Summer Dorantes MD Work Phone: Start: 12-10-2021 Gonadotropin chorion ic quantitative Pedro Luis Dorantes MD Work Phone: Start: 09-26-2021 Gonadotropin chorion ic quantitative Pedro Luis Dorantes MD Work Phone: Start: 09-17-2021 Assay of estradiol Summer Dorantes MD Work Phone: Start: 06-25-2021 Assay of thyroid stimulating hormone tsh Pedro Luis Chanjuan GORE Work Phone: Start: 02-15-2021 Gonadotropin chorion ic quantitative Pedro Luis Dorantes Work Phone: Start: 01-11-2021 Antibody screen Start: 01-11-2021 Antibody hiv-1&hiv-2 single result Pedro Luis Dorantes Work Phone: Start: 01-11-2021 Antibody rubella Pedro Luis Dorantes Work Phone: Start: 01-11-2021 Assay of estradiol Summer Dorantes Work Phone: Start: 01-11-2021 Assay of progesterone Jovana Dorantes Work Phone: Start: 01-11-2021 Assay of prolactin Summer Dorantes Work Phone: Start: 01-11-2021 Assay of thyroid stimulating hormone tsh Pedro Luis Dorantes Work Phone: Start: 01-11-2021 Blood typing serologic abo Pedr oLuis Dorantes Work Phone: Start: 01-11-2021 Gonadotropin chorion ic quantitative Pedro Luis Dorantes Work Phone: Start: 01-11-2021 Gonadotropin follicl e stimulating hormone Pedro Luis Dorantes Work Phone: Start: 01-11-2021 Gonadotropin luteini zing hormone Pedro Luis Dorantes Work Phone: Start: 01-11-2021 Hepatitis b core ant ibody hbcab total Pedro Luis Dorantes Work Phone: Start: 01-11-2021 Hepatitis c antibody Jeevan Dorantes Work Phone: Start: 01-11-2021 Iaad ia hepatitis b surface antigen Pedro Luis Dorantes Work Phone: Start: 11-24-2020 Microscopic observat ion [Identifier] in Cervix by Cyto stain Jaida Chadwick MD Work Phone: Plan of Treatment Date Care Activity Detail Author Start: 05-16-2032 DTaP,Tdap and Td Vac cines (2 - Td or Tdap) DTaP,Tdap and Td Vaccines (2 - Td or Tdap) [facility] Start: 01-21-2028 Screening for malign ant neoplasm of cervix [facility] Start: 02-08-2026 Adult BMI Screening Adult BMI Screen ing [facility] Start: 02-08-2026 Tobacco Screening Tobacco Screening [facility] Start: 01-26-2026 Adult BMI Screening Adult BMI Screen ing [facility] Start: 01-26-2026 Tobacco Screening Tobacco Screening [facility] Start: 07-04-2025 Influenza vaccination Influenza Vacc ine [facility] Start: 06-03-2025 Influenza vaccination Flu vacc ine (Season Ended) [facility] Start: 04-25-2025 End: 04-25-2025 Telemedicine consultation with patient 04/25/2025 11:30 AM EDT Telemedicine [facility]- [facility] at [facility] [address] [place] [address] Devika Pulido, PAMoniqueC [address] [address] [facility] Start: 04-18-2025 End: 04-18-2025 Patient encounter procedure 04/18/2025 10:10 AM EDT Routine [facility] [address] [place] [id number] Cain Donaldson DO [address] [place] [address] [facility] Start: 04-14-2025 End: 04-14-2025 Patient encounter procedure 04/14/2025 8:00 AM EDT Appointment [facility] [address] [place] [address] [facility] Start: 03-30-2025 End: 09-30-2025 US biophysical profile w non stress test US biophysical profile w non stress test Imaging Routine Gestational diabetes mellitus (GDM), antepartum, gestational diabetes method of control unspecified Factor 5 Leiden mutation, heterozygous (CMS/HCC) Conceived by in vitro fertilization Expected: 03/30/2025 (Approximate), Expires: 09/30/2025 [facility] Comment on above: Expected: 03/30/2025 (Approximate), Expires: 09/30/2025 Start: 03-30-2025 End: 07-31-2025 US for US OB follow up transabdominal approach Imaging Routine Gestational diabetes mellitus (GDM), antepartum, gestational diabetes method of control unspecified Factor 5 Leiden mutation, heterozygous (CMS/HCC) Conceived by in vitro fertilization Expected: 03/30/2025, Expires: 07/31/2025 [facility] Work Phone: Comment on above: Expected: 03/30/2025 , Expires: 07/31/2025 Start: 03-30-2025 End: 03-30-2025 Telemedicine consultation with patient 03/30/2025 1:30 PM EDT Telemedicine [facility] at [facility] [address] [place] [phone] Apollo Sandoval, CASINO ASSISTANT MANAGER-GROUND SUPPORT EQUIPMENT ASSEMBLER [address] [place] [address] [facility] Start: 03-30-2025 End: 03-30-2025 Patient encounter procedure [facility] Comment on above: Arrived Start: 03-16-2025 End: 03-16-2025 Patient encounter procedure 03/16/2025 8:00 AM EDT Appointment [facility] [address] [place] [phone] [facility] Start: 03-03-2025 End: 03-03-2026 Alanine aminotransferase [Enzymatic activity/volume] in Serum or Plasma ALT Lab Routine 23 weeks gestation of induced hypertension, antepartum Expected: 03/03/2025 (Approximate), Expires: 03/03/2026 [facility] Comment on above: Expected: 03/03/2025 (Approximate), Expires: 03/03/2026 Start: 03-03-2025 End: 03-03-2026 Aspartate aminotransferase [Enzymatic activity/volume] in Serum or Plasma AST Lab Routine 23 weeks gestation of induced hypertension, antepartum Expected: 03/03/2025 (Approximate), Expires: 03/03/2026 [facility] Comment on above: Expected: 03/03/2025 (Approximate), Expires: 03/03/2026 Start: 03-03-2025 End: 03-03-2026 CBC W Auto Differential panel - Blood CBC and differential Lab Routine 23 weeks gestation of induced hypertension, antepartum Expected: 03/03/2025 (Approximate), Expires: 03/03/2026 [facility] Comment on above: Expected: 03/03/2025 (Approximate), Expires: 03/03/2026 Start: 03-03-2025 End: 03-03-2026 Creatinine [Mass/volume] in Serum or Plasma Creatinine Lab Routine 23 weeks gestation of induced hypertension, antepartum Expected: 03/03/2025 (Approximate), Expires: 03/03/2026 [facility] Work Phone: Comment on above: Expected: 03/03/2025 (Approximate), Expires: 03/03/2026 Start: 03-03-2025 End: 03-03-2026 Lactate dehydrogenase [Enzymatic activity/volume] in Serum or Plasma by Lactate to pyruvate reaction Lactate dehydrogenase Lab Routine 23 weeks gestation of induced hypertension, antepartum Expected: 03/03/2025, Expires: 03/03/2026 [facility] Comment on above: Expected: 03/03/2025 , Expires: 03/03/2026 Start: 03-03-2025 End: 03-03-2026 Protein, urine, 24 hour Protein, urine, 24 hour Lab Routine 23 weeks gestation of induced hypertension, antepartum Expected: 03/03/2025 (Approximate), Expires: 03/03/2026 [facility] Comment on above: Expected: 03/03/2025 (Approximate), Expires: 03/03/2026 Start: 03-03-2025 End: 03-03-2026 Pt and ptt Pt and ptt Lab Routine 23 weeks gestation of induced hypertension, antepartum Expected: 03/03/2025, Expires: 03/03/2026 [facility] Comment on above: Expected: 03/03/2025 , Expires: 03/03/2026 Start: 03-03-2025 End: 03-03-2026 Urate [Mass/volume] in Serum or Plasma Uric acid Lab Routine 23 weeks gestation of induced hypertension, antepartum Expected: 03/03/2025 (Approximate), Expires: 03/03/2026 [facility] Comment on above: Expected: 03/03/2025 (Approximate), Expires: 03/03/2026 Start: 03-03-2025 End: 03-03-2026 Urea nitrogen [Mass/volume] in Serum or Plasma BUN Lab Routine 23 weeks gestation of induced hypertension, antepartum Expected: 03/03/2025, Expires: 03/03/2026 [facility] Comment on above: Expected: 03/03/2025 , Expires: 03/03/2026 Start: 03-03-2025 End: 03-03-2025 Patient encounter procedure 03/03/2025 8:40 AM EDT Routine [facility] [address] [facility] [place] [address] Cain Donaldson DO [address] [place] [address] Arrived [facility] Comment on above: Arrived Start: 02-24-2025 End: 02-24-2025 Patient encounter procedure 02/24/2025 1:00 PM EDT Office Visit [facility]- Medicine at [facility] [address] [place] [phone] Apollo Sandoval, CASINO ASSISTANT MANAGER-GROUND SUPPORT EQUIPMENT ASSEMBLER [address] [facility] [place] [address] [facility] Start: 02-08-2025 End: 02-08-2026 US MFM with or without consult US MFM with or without consult Imaging Routine Insulin controlled gestational diabetes mellitus (GDM) in second trimester Choroid plexus cyst of fetus affecting care of mother, antepartum, single or unspecified fetus Heterozygous factor V Leiden affecting in second trimester, antepartum Severe obesity due to excess calories affecting , antepartum ([facility]) Expected: 02/08/2025, Expires: 02/08/2026 [employer] Work Phone: Comment on above: Expected: 02/08/2025 , Expires: 02/08/2026 Start: 02-08-2025 End: 02-08-2025 Patient encounter procedure [facility] - [facility] Start: 01-26-2025 End: 01-26-2025 Patient encounter procedure 01/26/2025 3:30 PM EDT Office Visit [facility]- [facility] at [facility] [address] [place] [phone] Apollo Sandoval, UMM-GROUND SUPPORT EQUIPMENT ASSEMBLER [address] [place] [address] [facility] Start: 01-26-2025 End: 01-26-2025 ambulatory 01/26/2025 1:30 PM EDT Support Visit [facility]- [facility] at [facility] [address] [place] [address] Kenzie Rhodes, RD [address], [address] [place] [address] [facility] Start: 01-20-2025 End: 02-20-2025 Alpha fetoprotein, maternal Alpha fetoprotein, maternal Lab Routine Second trimester Expected: 01/20/2025 (Approximate), Expires: 02/20/2025 [facility] Work Phone: Comment on above: Expected: 01/20/2025 (Approximate), Expires: 02/20/2025 Start: 01-20-2025 End: 01-20-2025 Patient encounter procedure [facility] Comment on above: Arrived Start: 12-23-2024 End: 12-23-2024 Patient encounter procedure [facility] Comment on above: Arrived Start: 11-25-2024 End: 11-25-2025 ABO/Rh ABO/Rh Lab Routine Missed menses , unspecified gestational age Expected: 11/25/2024 (Approximate), Expires: 11/25/2025 [facility] Comment on above: Expected: 11/25/2024 (Approximate), Expires: 11/25/2025 Start: 11-25-2024 End: 11-25-2025 Blood type and Indirect antibody screen panel - Blood Type and screen Lab Routine Missed menses , unspecified gestational age Expected: 11/25/2024 (Approximate), Expires: 11/25/2025 [facility] Work Phone: Comment on above: Expected: 11/25/2024 (Approximate), Expires: 11/25/2025 Start: 11-25-2024 End: 11-25-2025 Drugs of abuse panel - Urine by Screen method Rapid drug screen, urine Lab Routine , unspecified gestational age Encounter for supervision of normal first in first trimester Expected: 11/25/2024 (Approximate), Expires: 11/25/2025 [facility] Comment on above: Expected: 11/25/2024 (Approximate), Expires: 11/25/2025 Start: 07-04-2024 COVID-19 Vaccine ( season) COVID-19 Vaccine ( season) [facility] Start: 07-04-2024 COVID-19 Vaccine ( season) COVID-19 Vaccine ( season) [facility] Start: 07-04-2024 Influenza vaccination Influenza Vacc [facility] Start: 06-03-2024 Influenza vaccination Flu vaccine (# 1) [facility] Start: 11-24-2023 Screening for malign ant neoplasm of cervix Pap Smear [facility] Start: 2023 Screening for malign ant neoplasm of cervix [facility] Start: 07-04-2022 Influenza vaccination Flu vacc ine (Season Ended) [facility] Start: 07-04-2021 Influenza vaccination [facility] Start: 07-04-2020 Influenza vaccination Flu vaccine (# 1) [facility] Work Phone: Start: 07-03-2015 DTaP,Tdap and Td Vac cines (2 - Tdap) DTaP,Tdap and Td Vaccines (2 - Tdap) [facility] Start: 2014 Screening for malign ant neoplasm of cervix [facility] Start: 2012 DTaP/Tdap/Td vaccine (1 - Tdap) DTaP/Tdap/Td vaccine (1 - Tdap) [facility] Start: 2012 Hepatitis B vaccine (1 of 3 - 19+ 3-dose series) Hepatitis B vaccine (1 of 3 - 19+ 3-dose series) [facility] Start: 2011 Adult BMI Follow Up Plan Adult BMI Follow Up Plan [facility] Start: 2011 Adult BMI Screening Adult BMI Screen ing [facility] Start: 2009 COVID-19 Vaccine (1) COVID-19 Vaccin e (1) [facility] [employer] Phone: Start: 2006 Varicella vaccine (1 of 2 - 13+ 2-dose series) Varicella vaccine (1 of 2 - 13+ 2-dose series) [facility] Start: 2005 COVID-19 Vaccine (1) COVID-19 Vaccin e (1) [facility] Start: 2005 Depression Screen Depression Screen [facility] Start: 2005 Depression Screening Depression Scre ening [facility] Start: 2005 Tobacco Screening Tobacco Screening [facility] Start: 1998 COVID-19 Vaccine (1) COVID-19 Vaccin e (1) [facility] Start: 1994 Varicella vaccine (1 of 2 - 2-dose childhood series) Varicella vaccine (1 of 2 - 2-dose childhood series) [employer] End: 02-08-2025 Alpha Fetoprotein, Maternal [facility] [employer] Phone: Comment on above: Once for 1 Occurrenc es starting 02/08/2025 until 02/08/2025 End: 01-11-2021 Anti Mullerian Hormone Anti Mullerian Hormone Lab Routine Once for 1 Occurrences starting 01/11/2021 until 01/11/2021 [employer] Phone: Comment on above: Once for 1 Occurrenc es starting 01/11/2021 until 01/11/2021 Anti Mullerian Hormone Anti Keeley erian Hormone Lab Routine 01/11/2021 1:58 PM [employer] Phone: Bacteria identified in Urine by Culture Urine culture Microbiology Routine Missed menses [facility]: [facility] Comment on above: Ordered: 11/25/2024 End: 01-11-2021 C.trachomatis N.gonorrhoeae DNA, Urine C.trachomatis N.gonorrhoeae DNA, Urine Microbiology Routine Once for 1 Occurrences starting 01/11/2021 until 01/11/2021 [employer] Phone: Comment on above: Once for 1 Occurrenc es starting 01/11/2021 until 01/11/2021 C.trachomatis N.gonorrhoeae DNA, Urine C.trachomatis N.gonorrhoeae DNA, Urine Microbiology Routine 01/11/2021 2:29 PM [employer] Phone: CBC W Auto Different ial panel - Blood CBC and differential Lab Routine Missed menses , unspecified gestational age Ordered: 11/25/2024 [facility] [employer] Comment on above: Ordered: 11/25/2024 CHLAMYDIA TRACHOMATI S (GENITO/STI) CHLAMYDIA TRACHOMATIS (GENITO/STI) Lab Routine Exposure to STD Ordered: 01/20/2025 [facility] Comment on above: Ordered: 01/20/2025 End: 02-15-2021 COVID-19 COVID-19 Lab Routine Once for 1 Occurrences starting 02/15/2021 until 02/15/2021 [facility] Phone: Comment on above: Once for 1 Occurrenc es starting 02/15/2021 until 02/15/2021 COVID-19 COVID-19 Lab Rou linda 02/15/2021 3:10 PM EDT [facility] Phone: End: 12-23-2024 Culture, Urine [facility] [employer] Comment on above: Once for 1 Occurrenc es starting 12/23/2024 until 12/23/2024 Cytology Cervical or vaginal smear or scraping study Pap Smear Pathology and Cytology Routine Well woman exam with routine gynecological exam Ordered: 01/20/2025 [facility] [employer] Comment on above: Ordered: 01/20/2025 End: 01-11-2021 Factor 5 Leiden Factor 5 Leiden Lab Routine Once for 1 Occurrences starting 01/11/2021 until 01/11/2021 [employer] Phone: Comment on above: Once for 1 Occurrenc es starting 01/11/2021 until 01/11/2021 Factor 5 Leiden Factor 5 Leiden Lab Routine 01/11/2021 1:58 PM [employer] Phone: End: 01-11-2021 HbA1c (Bld) [Mass fraction] Hemoglobin A1C Lab Routine Once for 1 Occurrences starting 01/11/2021 until 01/11/2021 [facility] Phone: Comment on above: Once for 1 Occurrenc es starting 01/11/2021 until 01/11/2021 HbA1c (Bld) [Mass fraction] Hemoglobin A1C Lab Routine 01/11/2021 1:58 PM [employer] Phone: Hemoglobin A1c/Hemoglobin.total in Blood Hemoglobin A1c Lab Routine Missed menses , unspecified gestational age Ordered: 11/25/2024 [facility] [employer] Comment on above: Ordered: 11/25/2024 End: 12-23-2024 Hemoglobin A1c/Hemoglobin.total in Blood [employer] Comment on above: Once for 1 Occurrenc es starting 12/23/2024 until 12/23/2024 End: 12-23-2024 Hepatitis B Surface Antigen [employer] Comment on above: Once for 1 Occurrenc es starting 12/23/2024 until 12/23/2024 Hepatitis B virus urbano rface Ag [Presence] in Serum or Plasma by Immunoassay Hepatitis B surface antigen Lab Routine Missed menses , unspecified gestational age Ordered: 11/25/2024 [facility] Comment on above: Ordered: 11/25/2024 End: 12-23-2024 Hepatitis C Antibody [facility] [employer] Phone: Comment on above: Once for 1 Occurrenc es starting 12/23/2024 until 12/23/2024 Hepatitis C virus Ab [Presence] in Serum or Plasma by Immunoassay Hepatitis C antibody Lab Routine Missed menses , unspecified gestational age Ordered: 11/25/2024 [facility] Comment on above: Ordered: 11/25/2024 End: 12-23-2024 HIV Screen [facility] [employer] Comment on above: Once for 1 Occurrenc es starting 12/23/2024 until 12/23/2024 HIV-1/HIV-2 antigen/antibody combination immunoassay HIV-1 and HIV-2 antibodies Lab Routine Missed menses , unspecified gestational age Ordered: 11/25/2024 [facility] Comment on above: Ordered: 11/25/2024 Human papilloma viru s DNA [Presence] in Unspecified specimen by Probe with amplification HPV DNA probe, amplified Microbiology Routine Well woman exam with routine gynecological exam Ordered: 01/20/2025 [facility] Comment on above: Ordered: 01/20/2025 Neisseria gonorrhoea e DNA [Presence] in Unspecified specimen by JOSELYN with probe detection Neisseria gonorrhea DNA probe, direct Lab Routine Exposure to STD Ordered: 01/20/2025 [facility] Comment on above: Ordered: 01/20/2025 End: 01-11-2021 Prothrombin Gene Mutation Prothrombin Gene Mutation Lab Routine Once for 1 Occurrences starting 01/11/2021 until 01/11/2021 [employer] Phone: Comment on above: Once for 1 Occurrenc es starting 01/11/2021 until 01/11/2021 Prothrombin Gene Mutation Prothr ombin Gene Mutation Lab Routine 01/11/2021 1:58 PM EST [employer] Phone: Reagin Ab [Presence] in Serum by RPR RPR Lab Routine Missed menses , unspecified gestational age Ordered: 11/25/2024 [facility] Comment on above: Ordered: 11/25/2024 Rubella antibody, IgG Rubella an tibody, IgG Lab Routine Missed menses , unspecified gestational age Ordered: 11/25/2024 [facility] Comment on above: Ordered: 11/25/2024 End: 12-23-2024 Rubella antibody, IgG [facility] [employer] Comment on above: Once for 1 Occurrenc es starting 12/23/2024 until 12/23/2024 SURESWAB(R) ADVANCED VAGINITIS PLUS, TMA SURESWAB(R) ADVANCED VAGINITIS PLUS, TMA Pathology and Cytology Routine Vaginal discharge Ordered: 01/20/2025 [facility] Comment on above: Ordered: 01/20/2025 End: 01-11-2021 T. pallidum Ab T. pallidum Ab Lab Routine Once for 1 Occurrences starting 01/11/2021 until 01/11/2021 [employer] Phone: Comment on above: Once for 1 Occurrenc es starting 01/11/2021 until 01/11/2021 T. pallidum Ab T. pallidum Ab L ab Routine 01/11/2021 1:58 PM EST [employer] Phone: End: 12-23-2024 T. pallidum Ab [facility] [employer] Comment on above: Once for 1 Occurrenc es starting 12/23/2024 until 12/23/2024 End: 02-08-2026 Unlisted Lab Test Unlisted Lab Test Lab Routine Insulin controlled gestational diabetes mellitus (GDM) in second trimester Prediabetes in mother during 20 weeks gestation of Choroid plexus cyst of fetus affecting care of mother, antepartum, single or unspecified fetus Heterozygous factor V Leiden affecting in second trimester, antepartum Severe obesity due to excess calories affecting , antepartum ([facility]) Bipolar disorder, in full remission, most recent episode depressed 1 Occurrences starting 02/08/2025 until 02/08/2026 [employer] Work Phone: Comment on above: 1 Occurrences starti ng 02/08/2025 until 02/08/2026 End: 01-11-2021 Varicella Zoster Antibody, IgG Varicella Zoster Antibody, IgG Lab Routine Once for 1 Occurrences starting 01/11/2021 until 01/11/2021 [employer] Phone: Comment on above: Once for 1 Occurrenc es starting 01/11/2021 until 01/11/2021 Varicella Zoster Ant ibody, IgG Varicella Zoster Antibody, IgG Lab Routine 01/11/2021 1:58 PM EST [employer] Work Phone: End: 01-11-2021 Vitamin D 25 Hydroxy Vitamin D 25 Hydroxy Lab Routine Once for 1 Occurrences starting 01/11/2021 until 01/11/2021 [employer] Phone: Comment on above: Once for 1 Occurrenc es starting 01/11/2021 until 01/11/2021 Vitamin D 25 Hydroxy [facility] Work Phone: End: 06-25-2021 Vitamin D 25 Hydroxy Vitamin D 25 Hydroxy Lab Routine Once for 1 Occurrences starting 06/25/2021 until 06/25/2021 [employer] Phone: Comment on above: Once for 1 Occurrenc es starting 06/25/2021 until 06/25/2021 Immunizations Immunization Date Immunization Notes Care Provider Fa [facility] 08-03-2024 influenza virus vaccine, unspecified formulation Christy Prado LPN [employer] 09-08-2023 influenza virus vaccine, unspecified formulation Jaida Chadwick MD Work Phone: [employer] Payers Date Payer Category Payer [facility] [id number] 2024 Self-pay 2020 [employer] - Other [id number] 2014 Unknown [id number]. [id number] 1993 Unknown [id number] 2.16.840.1.969075.3.579. 2.174 1993 Unknown [id number] 2.16.840.1.554648.3.579. 2.174 1993 Unknown [id number] 2.16.840.1.012657.3.579. 2.174 1993 Unknown [id number] 2.16.840.1.156772.3.579. 2.174 1993 Unknown [id number] 2.16.840.1.713552.3.579. 2.9 1993 Unknown [id number] 2.16.840.1.125315.3.579. 2.1258 1993 Unknown [id number] 2.16.840.1.415938.3.579. 2.9 1993 Unknown [id number] 2.16.840.1.361398.3.579. 2.9 1993 Unknown [id number] 2.16.840.1.684864.3.579. 2.9 1993 Unknown [id number] 2.16.840.1.436633.3.579. 2.9 1993 Unknown [id number] 2.16.840.1.314997.3.579. 2.1286 1993 Unknown [id number] 2.16.840.1.478717.3.579. 2.1286 1993 Unknown [id number] 2.16.840.1.076613.3.579. 2.1286 1993 Unknown [id number] 2.16.840.1.539028.3.579. 2.1286 1993 Unknown [id number] 2.16.840.1.297363.3.579. 2.1286 1993 Unknown [id number] 2.16.840.1.711700.3.579. 2.1286 1993 Unknown [id number] 2.16.840.1.759543.3.579. 2.1286 Unknown [id number] 2.16.840.1.030246.3.579. 2.531 Social History Date Type Detail Facility Tobacco smoking stat [facility] Unknown if ever smoked [employer] Phone: Start: 1993 Sex Assigned At Not on file [employer] Phone: Tobacco smoking stat [facility] Tobacco smoking consumption unknown [facility] Start: 1993 Sex Assigned At Female F [facility] Start: 02-20-2013 End: 11-15-2020 History of Social function [employer] Start: 02-20-2013 End: 11-15-2020 [facility] Start: 10-01-2024 [facility] Start: 11-24-2024 Gender identity Identifies as female gender (finding) [facility] Start: 06-06-2015 End: 12-29-2024 Sex Female (finding) [facility] Start: 11-24-2020 End: 02-08-2025 Tobacco smoking status [facility] Ex-smoker [facility] Start: 11-03-2020 End: 11-03-2010 History of tobacco use Current smoker [facility] Start: 11-03-2020 End: 11-03-2010 History of tobacco use Cigarette Smoker [facility] Start: 11-24-2020 End: 02-08-2025 Tobacco use and exposure Smokeless tobacco non-user [facility] Start: 12-30-2024 End: 02-08-2025 Alcoholic beverage intake Ex-drinker (finding) [facility] Childcare Unknown [facility] Medical Equipment Procedure Code Equipment Code Equipment Origin al Text Equipment Identifier Dates [id number] Start: 12-23-2024 End: 01-22-2025 1 each by In Vit ro route Daily Use to check FSBS four times daily [id number] Start: 12-23-2024 End: 01-22-2025 Use 2 syringes i n the morning for insulin dosage and 2 syringes in the Evening for insulin dosage. Total of 4 syringes daily needed. [id number] Start: 01-07-2025 Goals Date Patient Goal Desired Activity /State Personal health goal Clinical Notes 11-25-2024 to 03-30-2025 Apollo Sandoval APRN-RHONDA - 03/30/2025 1:30 PM EDTBelgica Scherer NP - 03/30/2025 8:50 AM EDTTelephone Encounter - Soyna Lomax RN - 03/22/2025 5:45 PM Diego Parkinson LPN - 03/03/2025 8:40 AM EDT Note Date & Type Note Facility 03-30-2025 History of Present illness Narrative REASON FOR OFFICE VISIT: Video Visit via Real-time Synchronous Audiovisual Provider Location: [facility] AT [address] [phone] Patient Location: Patient's home Video Visit Consent Statement: I discussed risks, benefits, and alternatives of a real-time synchronous audiovisual consultation with the patient (and any accompanying persons) including the risks that the patient's personal health details and medical records will be discussed over real-time, synchronous, interactive video/audio/telecommunication technology, the visit will not be recorded without the express consent of both the provider and the patient, and that there are some limitations compared to [id number] evaluations. The patient consented to the presence [...] before transfer HISTORY OF PRESENT ILLNESS: Kevin White is a pleasant 29 y.o. at 27w4d due on Estimated Date of Delivery: 06/25/25. Currently the patient has no complaints. The patient denies MATA, nausea, vomiting, abdominal pain, vaginal bleeding, contractions, leaking fluid or chest pain. +FM. She is being followed at [facility] due to GDMA2. States she [...] meal., Disp: , Rfl: blood-glucose meter [facility], 4 (four) times a day. Use to [...] Disp: , Rfl: lancets (LANCETS,ULTRA THIN) [facility], Use to check blood sugar 4 times daily. Fasting in the morning, and 1 hour after each meal., Disp: , Rfl: PNV no.153/FA/om3/dha/epa/fish ( GUMMIES ORAL), Take 2 tablets by mouth in the morning., Disp: , Rfl: LABS: Lab Results Component Value Date CREATININE 0.73 01/06/2016 Lab Results Component Value Date TSH 3.31 11/24/2020 No results found for: [id number] Lab Results Component Value Date CREATININE 0.73 [...] values to us weekly by e-mail to: [email or web address] or by fax to: [phone] TIME OF CONSULTATION: 15 minutes with the patient, >50% in discussion and counseling, coordination of care which was [id number], review of records and communication back to referring provider. HOWARD Whitman 03/30/25 1344 documented in this encounter [facility]T 03-30-2025 History of Present illness Narrative Reason for Appointment: Patient ID: Kevin White is a 29 y.o. female who presents for Routine Visit Patient presents today for Return OB appointment. MEDICATIONS Current Outpatient Medications Medication Instructions Alcohol Swabs (Alcohol Prep Pad) 70 % pads 1 Pad, Topical, Daily, Use four times daily to check FSBS. Blood Glucose Monitoring Suppl (D-Care Glucometer) w/Device kit 1 kit, Does not [...] appointment. Patient continues to follow closely with [facility] and has telehealth visit today to review glucose logs. She continues on Lantus and doing well. No complaints today. Given orders for NST/BPP and has scheduled growth ultrasound with [facility]. Will obtain Hgb / hematocrit and platelets today. Documented by Belgica Scherer NP on behalf of: Belgica Scherer NP documented in this encounter [facility] 03-22-2025 Miscellaneous Notes Called pt and left a message with her that we reviewed her blood sugars and although she had some elevations there was no pattern to her elevations and some may have been food related. No changes for this week and she is to stay on her current insulin dosage for this week and send in new blood sugars next week. documented in this encounter [facility] 03-22-2025 Telephone encounter Note Called pt and left a message with her that we reviewed her blood sugars and although she had some elevations there was no pattern to her elevations and some may have been food related. No changes for this week and she is to stay on her current insulin dosage for this week and send in new blood sugars next week. [facility] 03-16-2025 Miscellaneous Notes Received BG results and all but 4 are in target range. No pattern noted. Called and left message of praise for all efforts and to call if questions. To send next week again. No changes. Continue your current insulin dose for this week. documented in this encounter [facility] 03-16-2025 Telephone encounter Note Received BG results and all but 4 are in target range. No pattern noted. Called and left message of praise for all efforts and to call if questions. To send next week again. No changes. Continue your current insulin dose for this week. [facility] 03-11-2025 Miscellaneous Notes Summary: [facility] Blood Glucose Log & Insulin Dose Change Called and spoke with Merna who did receive message from early this week about BG log reviewed and increased Lantus evening dose to 19 Units daily. Apologized for not returning call noting life has been busy, hectic with foster infant placement. Denied any questions. documented in this encounter [facility] 03-11-2025 Telephone encounter Note Summary: [facility] Blood Glucose Log & Insulin Dose Change Called and spoke with Merna who did receive message from early this week about BG log reviewed and increased Lantus evening dose to 19 Units daily. Apologized for not returning call noting life has been busy, hectic with foster infant placement. Denied any questions. [facility] Phone: 03-07-2025 Miscellaneous Notes Called pt to discuss her insulin change for this week and received voicemail. Left her a message that Dr Wade reviewed her blood sugars and would like her to increase her lantus in the evening to 19 units. Asked her to please call back to verify she got this new insulin change for this week. documented in this encounter [facility] 03-07-2025 Telephone encounter Note Called pt to discuss her insulin change for this week and received voicemail. Left her a message that Dr Wade reviewed her blood sugars and would like her to increase her lantus in the evening to 19 units. Asked her to please call back to verify she got this new insulin change for this week. [facility]-03[facility] History of Present illness Narrative Reason for Appointment: Patient ID: Kevin White is a 29 y.o. female who presents for Routine Visit Patient presents today for Return OB appointment. MEDICATIONS Current Outpatient Medications Medication Instructions Alcohol Swabs (Alcohol Prep Pad) 70 % pads 1 Pad, Topical, Daily, Use four times daily to check FSBS. Blood Glucose Monitoring Suppl (D-Care Glucometer) w/Device kit 1 kit, Does not apply, Daily, Use four times daily to check FSBS. In the morning prior to breakfast & 1 hour after each meal for a total of 4times daily. insulin syringe 29G X 1/2 0.5 mL misc Use 2 syringes in the morning for insulin dosage and 2 syringes in the Evening for insulin dosage. Total of 4 syringes daily needed. Lantus SoloStar 17 Units, Nightly ALLERGIES No Known Allergies PROBLEMS Active Ambulatory Problems Diagnosis Date Noted No Active Ambulatory Problems Resolved Ambulatory Problems Diagnosis Date Noted No Resolved Ambulatory Problems No Additional Past Medical History HISTORY PAST MEDICAL HISTORY SOCIAL HISTORY History reviewed. No pertinent past medical history. Social History Tobacco Use Smoking status: Not on file Smokeless tobacco: Not on file Substance Use Topics Alcohol use: Not on file Drug use: Not on file FAMILY HISTORY No family history on file. SURGICAL HISTORY History reviewed. No pertinent surgical history. REVIEW OF SYSTEMS Review of Systems: Review of Systems Constitutional: Negative. HENT: Negative. Eyes: Negative. Respiratory: Negative. Cardiovascular: Negative. Gastrointestinal: Negative. Genitourinary: Negative. Musculoskeletal: Negative. Skin: Negative. Neurological: Negative. All other systems reviewed and are negative. Hematological: Negative. Endocrine: Negative. Allergic/Immunologic: Negative. OBJECTIVE Objective: OBGyn Exam Vitals: There is no height or weight on file to calculate BMI. BP: 120/80 No LMP recorded. Patient is . ASSESSMENT & PLAN ICD-10-CM 1. 23 weeks gestation of Z3A.23 POCT urinalysis dipstick manually resulted 2. Second trimester Z34.92 POCT urinalysis dipstick manually resulted 3. Diabetes mellitus screening Z13.1 CBC Glucose tolerance, 1 hour CBC Glucose tolerance, 1 hour Patient presents today for a routine obstetrics appointment. Patient is currently 23w6d with a Estimated Date of Delivery: 06/24/25. Patient given PIH workup along with baseline 24 hour urine order. Patient is currently also seeing [facility], which are also managing Gestational Diabetes. Patient voiced that insulin was just increased to 17 units at HS yesterday. Patient to return to clinic 4 weeks for routine OB. Documented by Bee Parkinson LPN on behalf of: Cain Donaldson DO documented in this encounter [facility] 03-01-2025 Miscellaneous Notes Called and notified patient that Pat MCKOY reviewed her blood sugar log and would like her to increase her Lantus to 17 units in the evening. Encouraged patient to write down what she is eating when having elevations greater than 140. Patient verbalized understanding. documented in this encounter [facility] 03-01-2025 Telephone encounter Note Called and notified patient that Pat MCKOY reviewed her blood sugar log and would like her to increase her Lantus to 17 units in the evening. Encouraged patient to write down what she is eating when having elevations greater than 140. Patient verbalized understanding. [facility] 02-24-2025 History of Present illness Narrative REASON FOR OFFICE VISIT: Video Visit via Real-time Synchronous Audiovisual Provider Location: [facility] AT [address] [phone] Patient Location: Patient's home Video Visit Consent Statement: I discussed risks, benefits, and alternatives of a real-time synchronous audiovisual consultation with the patient (and any accompanying persons) including the risks that the patient's personal health details and medical records will be discussed over real-time, synchronous, interactive video/audio/telecommunication technology, the visit will not be recorded without the express consent of both the provider and the patient, and that there are some limitations compared to [id number]-cv-hveu evaluations. The patient consented to the presence of additional virtual and/or in-person participants. We elected to proceed. 1. GDMA2; A1c 5.9% in 06/2024, random 115, hg A1c 4.9 2. PCOS - was on metformin 3. Factor V leiden 4. Hx of MDD, Bipolar - stable without medication for 10 years 5. BMI 42.24 6. IVF donor sperm (s/o female eggs) - genetically tested before transfer HISTORY OF PRESENT ILLNESS: Kevin White is a pleasant 29 y.o. at 22w5d due on Estimated Date of Delivery: 06/25/25. Currently the patient has no complaints. The patient denies MATA, nausea, vomiting, abdominal pain, vaginal bleeding, contractions, leaking fluid or chest pain. She is being followed at [facility] due to GDMA2. States she is following meal plan as much as possible and eating evening snack. FBS - 83-105 1 HR Postprandial - 98-179 Past Medical History PAST OBSTETRICAL HISTORY: OB [...] meal., Disp: , Rfl: blood-glucose meter [facility], 4 (four) times a day. Use to check blood sugar 4 times daily. Fasting in the morning, and 1 hour after each meal., Disp: , Rfl: cholecalciferol 1,000 units tablet, Take 1 tablet (1,000 Units total) by mouth in the morning., Disp: , Rfl: insulin glargine (LANTUS SOLOSTAR U-100 INSULIN) 100 unit/mL (3 mL) insulin pen, Inject 10 units subcutaneously in abdomen every evening, Disp: 15 mL, Rfl: 3 insulin syringe-needle U-100 (INSULIN SYRINGE) 0.5 mL 29 gauge x 1/2 syringe, by miscellaneous route., Disp: , Rfl: lancets (LANCETS,ULTRA THIN) [facility], Use to check blood sugar 4 times daily. Fasting in the morning, and 1 hour after each meal., Disp: , Rfl: PNV no.153/FA/om3/dha/epa/fish ( GUMMIES ORAL), Take 2 tablets by mouth in the morning., Disp: , Rfl: LABS: Lab Results Component Value Date CREATININE 0.73 01/06/2016 Lab Results Component Value Date TSH 3.31 11/24/2020 No results found for: [id number] Lab Results Component Value Date CREATININE 0.73 [...] were no vitals taken for this visit. Gravid abdomen, Alert & Oriented. Respirations not labored. DISCUSSION: Long acting insulin increased as she is having some PP elevations and 1 fasting elevation after switching from NPH to Long acting Lantus nightly Lantus increased today as seen below Insulin-dependent diabetes mellitus and its effect on was reviewed. This means there is an insulin deficiency requiring exogenous insulin to keep a euglycemic state. causes hyperglycemia in various ways. Placental hormones: human placental lactogen and TNF alpha can eventually hasten insulin resistance and hyperglycemia. Achieving a euglycemic state is the best preventative strategy. This can be done through close contact with M diabetic: via weekly glucose review either by Logs or CGM. Baseline urine protein creatinine ratio along with preeclampsia labs are recommended in early in (ideally 1st trimester) to help detect a diagnosis of pre-eclampsia. Pre-existing diabetic patients are at increased risk for developing hypertensive disorders of including preeclampsia. testing is also initiated around 32 wks due to the increased risk of still . Generally after 39 weeks gestation, we prefer to have a planned delivery in view of increased risk of demise. Earlier delivery may be necessitated due to a diagnosis of maternal preeclampsia, for which the risk of which is elevated in diabetic pregnancies. Also, if the infant is large, which can still happen despite good glycemic control, there is an increased risk of maternal and trauma. This is defined as EFW greater than 4500 gm. An elective delivery can be offered when the EFW is > 4500 gm at term to reduce the risk of shoulder dystocia. Long-term risk to offspring from poor maternal glycemic control include: obesity, cardiovascular disease, impaired glucose tolerance and Type 2 diabetes were reviewed. Recommended carbohydrate allocation ranges: 30-45 g for breakfast, 45-60 g for lunch and dinner, and 15-g snacks roughly 2-3 hours after each meal. A1c less than 6% has the lowest risk for LGA infant SUMMARY/RECOMMENDATION: The following is a summary of our recommendations: 1. Blood work: reminded of baseline lab work A1c baseline reviewed CMP, CBC, urine protein creatine ratio baselines through primary OB office 2. Medication: Lantus increased to 14 units subcutaneous at bedtime Other medications as above 3. testing: F/u 20 wk anatomy scan with anatomy scan in 2 weeks Twice weekly NST w/ weekly DVP at 32 weeks growth ultrasounds every 4 weeks starting at 28 weeks 4. Delivery timing: Consider planned delivery btw 39/0 - 39/6 weeks or before if indicated Use 1/2 dose of insulin the night before her planned delivery. GDMA2:may monitor patient's BG every 4hrs during latent labor, every 1 hr during active labor with goal BG to be less than 140mg/dl. Can use insulin sliding scale prn hyperglycemia. No anticipated need for insulin use the day of her delivery With concern for pre-gestational diabetes post glucose measuring (fasting and 1 hr PP after each meal) is recommended for 2 weeks with f/u to PCP- less than 180 ideal goal for wound healing 5. Post : Please obtain a 2-hour GTT directly while still hospitalized after delivery or 4-12 weeks out patient and then A1c yearly as the patient has a 20% risk of having or developing diabetes later on. 6. Follow-up appointment: In 4 weeks to Maternal- Medicine. I asked her to keep sending values to us weekly by e-mail to: or by fax to: [phone] TIME OF CONSULTATION: 25 minutes with the patient, >50% in discussion and counseling, coordination of care which was [id number], review of records and communication back to referring provider. HOWARD [facility] 02/24/25 1333 documented in this encounter [facility] 02-17-2025 Miscellaneous Notes Notified patient by phone of low risk CFDNA results. My direct phone number was given in case any questions arise. documented in this encounter [facility] 02-17-2025 Telephone encounter Note Notified patient by phone of low risk CFDNA results. My direct phone number was given in case any questions arise. [facility] 02-15-2025 Miscellaneous Notes Called and spoke with patient regarding blood sugar log. Noted 6 elevations after insulin change to Lantus last week- 3 fastings and 3 PP (1 was 140). Patient reports last 2 days fasting was 85 and 93. Continues to try dietary changes. Encouraged patient to send in another log next week. documented in this encounter [facility] 02-15-2025 Telephone encounter Note Called and spoke with patient regarding blood sugar log. Noted 6 elevations after insulin change to Lantus last week- 3 fastings and 3 PP (1 was 140). Patient reports last 2 days fasting was 85 and 93. Continues to try dietary changes. Encouraged patient to send in another log next week. [facility] 02-08-2025 History of Present illness Narrative Headache/epigastric pain/blurry vision/swelling? No Cramping/contractions? No Abnormal vaginal discharge? No Spotting/vaginal bleeding? No Loss or gush of fluid like your water may have broken? No Do you have cats at home? Yes Do you change the litter box (reason: risk of toxoplasmosis)? N/A Genetic testing done this here or other office? Yes, through IVF clinic Have you been seen here at [facility] in a previous ? No Recent ER visits or hospitalizations? No Bring blood sugar log or meter with you today? (Please bring them with you for every visit at [facility]) N/A Flu vaccine (Sep-January)? Any concerns that you would like me to mention to the provider today? Does not want to know gender REASON FOR CONSULTATION: GDM A2, IVF factor 5 heterozygote HISTORY OF PRESENT ILLNESS: Kevin White is a pleasant 29 y.o. at 20w4d due on Estimated Date of Delivery: 06/24/25. complicated by: IVF with partner egg and donor sperm, dated by 5day embryo transfer on 10/07/2024, JANIYA 06/25/2025. [employer] , no genetic testing Prediabetes (A1c 5.9% 06/2024), complicated by early onset GDMA2, early onset. Repeat A1c 4.9% 12/23/24. Factor V Leiden Heterozygous. No family history of VTE. No personal history of VTE. Prothrombin gene mutation negative. Obesity affecting , prepregnancy BMI 43 Bipolar disorder type 1 with history of MDD Today, the patient is doing well. She denies contractions, vaginal bleeding, leaking of fluid. She reports good movement. Review of blood glucose logs with intermittent fasting hyperglycemia. Currently patient was in NPH 5 units in the morning and 5 units in the evening. Aneuploidy screening: no genetic testing during this other than embryo testing prior to transfer Carrier screening: Gender is a surprise I have reviewed the pertinent available patient records including but not limited to notes, labs and images. PAST OBSTETRICAL HISTORY: OB History Para Term AB Living 2 0 0 0 1 0 SAB IAB Ectopic Multiple Live Births 1 0 0 0 0 # Outcome Date GA Lbr Marvin/2nd Weight Sex Type Anes PTL Lv 2 Current 1 SAB 10/2021 6w0d SAB Comments: via IVF MEDICAL HISTORY: Past Medical History: Diagnosis Date Depression Gestational diabetes product of in vitro fertilization (IVF) 2024 Su[facility] attempt ([facility] SURGICAL HISTORY: Past Surgical History: Procedure Laterality Date WISDOM TOOTH EXTRACTION FAMILY/GENETIC HISTORY: Family History Problem Relation Age of Onset Hearing loss Maternal Grandmother Depression Mother Autism Neg Hx Developmental delay Neg Hx Down syndrome Neg Hx Bleeding Disorder Neg Hx Heart defect Neg Hx Sudden Neg Hx SOCIAL HISTORY: Social History Tobacco Use Smoking status: Former Types: Cigarettes Start date: 2020 Quit date: 2010 Years since quittin.2 Smokeless tobacco: Never Vaping Use Vaping status: Never Used Substance Use Topics Alcohol use: Not Currently Comment: Socially Drug use: No ALLERGIES: No Known Allergies CURRENT MEDICATIONS: Current [...] meal., Disp: , Rfl: blood-glucose meter [facility], 4 (four) times a day. Use to check blood sugar 4 times daily. Fasting in the morning, and 1 hour after each meal., Disp: , Rfl: cholecalciferol 1,000 units tablet, Take 1 tablet (1,000 Units total) by mouth in the morning., Disp: , Rfl: insulin NPH (NovoLIN N NPH U-100 Insulin) 100 unit/mL injection, Inject 5 units in the am and 5 units in the pm, Disp: 10 mL, Rfl: 6 insulin syringe-needle U-100 (INSULIN SYRINGE) 0.5 mL 29 gauge x 1/2 syringe, by miscellaneous route., Disp: , Rfl: lancets (LANCETS,ULTRA THIN) [facility], Use to check blood sugar 4 times daily. Fasting in the morning, and 1 hour after each meal., Disp: , Rfl: PNV no.153/FA/om3/dha/epa/fish ( GUMMIES ORAL), Take 2 tablets by mouth in the morning., Disp: , Rfl: RECENT HOSPITALIZATION: None HABITS: Patient activity no restrictions, diet no restrictions REVIEW OF SYSTEMS: Head and Neck: Negative for any dizziness and headaches. Cardiovascular and Respiratory System: Denies any chest pain, shortness of breath, and coughing. Abdominal and System: Denies any abdominal pain, nausea, vomiting, vaginal bleeding, and vaginal discharge REVIEW OF TESTS AND ULTRASOUND REPORTS: Referral records and [facility] chart were reviewed Pertinent Ultrasound findings are see formal ultrasound report. PHYSICAL EXAMINATION: BP 125/80 (BP Site: Right Arm, BP Postition: Sitting) Pulse 95 Ht 157.5 cm (5' 2.01 ) Wt 104.8 kg (231 lb) BMI 42.24 kg/m Well-appearing in no distress. Respirations not labored, speaking comfortably in full sentences Gravid abdomen OVERALL ASSESSMENT -Kevin White is a pleasant 29 y.o. at 20w4d -IVF -choroid plexus cyst -GDM A2 with prediabetes prior to -factor 5 Leiden heterozygous -Obesity in COUNSELING IVF In a systematic review, pregnancies achieved with IVF or ICSI are associated with higher rates of total congenital heart disease that in those pregnancies occurring naturally (1.3% vs 0.7%). [facility] suggest that echocardiogram be offered to patients with pregnancies achieved with either IVF or ICSI. In addition, assessment of growth should be performed in the 3rd trimester for pregnancies with IVF. Low-dose aspirin for patients with pregnancies with IVF for attempted preeclampsia prophylaxis is not recommended unless there are additional risk factors. Choroid Plexus Cyst In general, the patient was counseled about the limitations of ultrasound, with up to two-thirds of all anomalies failed to be identified using this modality. Today's US is reassuring overall, although a single choroid plexus cyst (POWERHOUSE ENGINEER) is visualized. We discussed this finding. CPCs are seen in approximately 1-2% of mid second trimester ultrasounds performed in otherwise healthy fetuses. This is not considered to be a structural defect and is not associated with intellectual disability, autism, cancer or any other neurocognitive processes. The number, size, bilaterality and persistent nature of CPCs does not impart any clinical significance. There is, however, an association with aneuploidy, particularly trisomy 18, and CPCs. Per [facility], CPCs are considered to be a normal variant in the setting of reassuring cfDNA screening. Options for further testing were discussed in detail during today's visit including expectant management, aneuploidy screening via cell free DNA and definitive screening with amniocentesis. Although cell-free DNA is not a diagnostic test , it has high sensitivity and specificity for the most common aneuploidies. A negative cell free DNA does not ensure an unaffected . A patient with a positive screen should be referred for genetic counseling and offered invasive diagnosis for confirmation of screen results. Limitations of cell free DNA screening were reviewed with the patient. Cell free DNA does not replace the accuracy and diagnostic precision of amniocentesis which remains an option for all women. Patient interested in cell free DNA screening, declined amniocentesis. GDMA2 Prediabetes prior to We reviewed the implications and risks of diabetes in . Diabetes in is associated with poorer outcomes if blood glucose levels are not well controlled. Potential effects of uncontrolled diabetes , or hyperglycemia, include: maternal risks (abnormal labors, prolonged labors, delivery, hemorrhage), risks (LGA profile, shoulder dystocia, stillbirth, delayed lung maturation) and subsequent risks ( hypoglycemia, polycythemia, hyperbilirubinemia with jaundice, seizures) In addition, women with diabetes in are at increased risk of developing hypertension diseases in ,such as gestational hypertension, or preeclampsia. Patient was explained that the high risk of shoulder dystocia in fetuses with EFW 4500 gm or higher. Long-term risk to offspring from poor maternal glycemic control include: obesity, cardiovascular disease, impaired glucose tolerance and Type 2 diabetes. Glucose goals in : Fasting 60 - 95: Mean fasting glucose values are important in managing diabetes in women because they provide overall glycemic estimate, and are predictive of increased fat mass in the women s offspring. Increased fat mass has been shown to be associated with the development of childhood obesity, and diabetes. One hour postprandial 90 - 140: Postprandial measurements are important in management of diabetes in because they are associated with incidence of large for gestational age infants, and lower rates of delivery for cephalopelvic disproportion when well controlled. Discussed monitoring for hypogylcemia, and treatment of hypoglycemia. Discussed her current diet and her awareness of grams of carbohydrate per meal. Encouraged her to be aware of carbohydrate intake and note which foods causing values above goal. Encouraged her on diet modifications. Factor 5 Leiden, heterozygous Inherited thrombophilias are associated with an increased risk of venous thromboembolism and have been linked to adverse outcomes in . Women who are or in the period have a fourfold to fivefold increased risk of thromboembolism compared with non women. Inherited thrombophilias, which are associated independently with increased risk of VTE, can thus further exacerbate the increased risk of VTE in in the period. Regarding anticoagulation therapy, in low risk thrombophilias without a previous VTE, such as factor 5 Leiden heterozygote, anticoagulation is not recommended during antepartum. Regarding the period, recommendation is to monitor without anticoagulation or or to initiate anticoagulation if there is additional risk factors, such as first-degree relative with a history of a thrombotic episode or personal thrombotic risk factors like obesity, prolonged immobility, or delivery. SUMMARY/RECOMMENDATION: Cell free DNA ordered, declined amniocentesis Continue baby aspirin for attempted preeclampsia prevention Discontinue NPH and transitioned to Lantus 10 units q.h.s. Continue to monitoring blood glucose 4 times daily and send in blood glucose logs weekly to [facility] Recommend baseline HELLP labs including CBC, CMP, urine protein creatinine ratio, through primary OB Incomplete level 2 anatomy ultrasound echocardiogram, attempt completion in 4 weeks with [facility] Recommend growth ultrasounds every 4 weeks following completion of level 2 anatomy ultrasound, through primary OB Recommend twice weekly testing starting at 32 weeks gestation, through primary OB Delivery recommendations : Recommend delivery at [id number] Discuss delivery if estimated weight is >4500g Use 1/2 dose of insulin the night before her planned delivery. Will discuss at later gestation Monitor patient's BG every 4hrs during latent labor, every 1 hr during active labor with goal BG to be less than 140mg/dl. Can use insulin sliding scale prn hyperglycemia. Once delivered, check blood glucose fasting and 1hr post prandial, with goal of 100-130mg/dl for fasting and <180mg/dl for random or post prandial blood glucose levels Recommend anticoagulation starting during hospitalization with Lovenox 40 mg daily, to be continued for 6 weeks Please monitor fingersticks during hospitalization as patient likely has prediabetes and is at increased risk of poor wound healing if FSBG >180 Obtain a 2-hour GTT 6-8 weeks . Also recommend yearly evaluation of blood glucose as patient is at an increased risk of developing diabetes later on. Monitor for depression [facility] office follow up already scheduled in 3 weeks DISPOSITION: At this point the patient is in complete care of her dry boss. Patient does have ultrasound and office visit scheduled with us. Thank you for allowing me to participate in the care of Kevin White. If there any questions please do not hesitate to contact us. Total time spent was 42 minutes: Preparing to see the patient (e.g., review of tests) Obtaining and/or reviewing separately obtained history Performing a medically appropriate examination and/or evaluation Counseling and educating the patient/family/caregiver Ordering medications, tests, or procedures Referring and communicating with other health home care physical therapist (not separately reported) Documenting clinical information in the electronic or other health record Jaida Chadwick MD Maternal- Medicine [facility] [address] [place] [address] [facility], the CDC, and other organizations representing maternal and public health professionals recommend that , , and lactating people and those considering receive the COVID-19 vaccination. Vaccination is the best method to reduce maternal and complications of SARS-CoV-2 infection. This document was created with [employer] technology. Though I make every effort to review the dictation as it is transcribed, on occasion the spoken word can be misinterpreted by the technology leading to inappropriate words, phrases, or sentences. This note is addressed to the requesting provider as a consultation for clinical guidance. Specific medical abbreviations are occasionally used and those are generally approved by the [place]?Board of?Obstetrics and?Gynecology?as well as?Shaji s abbreviations. The above plan of care was based solely on the diagnoses for which a consultation was requested. ?More frequent testing may be indicated based on her other medical/obstetrical conditions. The management of other or medical conditions is beyond the scope of requested consultation and will continue to be followed by the primary dry boss or primary care provider. Note to patient: The Century Cures Act makes medical notes like these available to patients in the interest of transparency. However, be advised this is a medical document. It is intended as peer to peer communication. It is written in medical language and may contain abbreviations or verbiage that are unfamiliar. It may appear blunt or direct. Medical documents are intended to carry relevant information, facts as evident, and the clinical opinion of the practitioner. Blood drawn for cell-free DNA testing. Patient tolerated well. documented in this encounter [facility] 02-03-2025 Miscellaneous Notes Received call from Nurse at Dr Donaldson's office who states they do not have any records of genetic testing. Waiter/Waitress Formal places call to Dr Pena's office at [facility] to inquire if they have any records of genetic testing for this - they also do not have any record of genetic testing. documented in this encounter [facility] 02-03-2025 Telephone encounter Note Received call from Nurse at Dr Donaldson's office who states they do not have any records of genetic testing. Waiter/Waitress Formal places call to Dr Pena's office at [facility] to inquire if they have any records of genetic testing for this - they also do not have any record of genetic testing. [facility] 02-03-2025 Miscellaneous Notes Left voicemail for BELA Gamboa at Dr Donaldson's office requesting genetic testing that was completed prior to IVF be faxed over to my attention. documented in this encounter [facility] 02-03-2025 Telephone encounter Note Left voicemail for BELA Gamboa at Dr Donaldson's office requesting genetic testing that was completed prior to IVF be faxed over to my attention. [facility] 01-26-2025 History of Present illness Narrative Headache/epigastric pain/blurry vision/swelling? NO Cramping/contractions? NO Abnormal vaginal discharge? NO Spotting/vaginal bleeding? NO Loss or gush of fluid like your water may have broken? NO Do you have cats at home? YES Do you change the litter box (reason: risk of toxoplasmosis)? DOES NOT CHANGE LITTER BOX. Genetic testing done this here or other office? YES Have you been seen here at [facility] in a previous ? NO Recent ER visits or hospitalizations? NO Bring blood sugar log or meter with you today? (Please bring them with you for every visit at [facility]) YES, SEE LOGS. Flu vaccine (Sep-January)? YES Any concerns that you would like me to mention to the provider today? NO REASON FOR OFFICE VISIT: New consult 1. GDMA2; A1c 5.9% in 06/2024, random 115, hg A1c 4.9 today 2. PCOS - was on metformin - stopped today 3. + MTHFR heterozygous 4. Hx of MDD, Bipolar - stable without medication for 10 years 5. BMI 41.88 6. IVF donor sperm (s/o female eggs) - genetically tested before transfer HISTORY OF PRESENT ILLNESS: Kevin White is a pleasant 29 y.o. at 18w5d due on Estimated Date of Delivery: 06/24/25. Currently the patient has no complaints. The patient denies MATA, nausea, vomiting, abdominal pain, vaginal bleeding, contractions, leaking fluid or chest pain. +FM. She is being followed at [facility] due to GDMA2. States she is following meal plan as much as possible and eating evening snack. FBS - 97-159 1 HR Postprandial - 90-144 Past Medical History PAST OBSTETRICAL HISTORY: OB History 1 Para 0 Term 0 0 AB 0 Living 0 SAB 0 IAB 0 Ectopic 0 Multiple 0 Live Births 0 SURGICAL HISTORY: Past Surgical History: Procedure Laterality Date WISDOM TOOTH EXTRACTION ALLERGIES: No Known Allergies CURRENT MEDICATIONS: Current Outpatient Medications: alcohol swabs (ALCOHOL PREP PADS) pads, medicated, Apply 1 Pad topically as needed (Use to check blood sugar)., Disp: , Rfl: blood sugar diagnostic (glucose blood) strip, 1 strip as needed. Use to check blood sugar 4 times daily. Fasting in the morning, and 1 hour after each meal., Disp: , Rfl: blood-glucose meter [facility], 4 (four) times a day. Use to check blood sugar 4 times daily. Fasting in the morning, and 1 hour after each meal., Disp: , Rfl: insulin NPH (HumuLIN N,NovoLIN N) 100 unit/mL injection, Inject 0.05 mL (5 Units total) under the skin. Take 5 units in the morning and 5 units in the evening, Disp: , Rfl: insulin syringe-needle U-100 (INSULIN SYRINGE) 0.5 mL 29 gauge x 1/2 syringe, by miscellaneous route., Disp: , Rfl: lancets (LANCETS,ULTRA THIN) mis, Use to check blood sugar 4 times daily. Fasting in the morning, and 1 hour after each meal., Disp: , Rfl: metFORMIN (FORTAMET) 500 MG (OSM) 24 hr tablet, Take 1 tablet (500 mg total) by mouth daily with breakfast., Disp: , Rfl: PNV no.153/FA/om3/dha/epa/fish ( GUMMIES ORAL), Take 2 tablets by mouth in the morning., Disp: , Rfl: LABS: Lab Results Component Value Date CREATININE 0.73 01/06/2016 Lab Results Component Value Date TSH 3.31 11/24/2020 No results found for: [id number] Lab Results Component Value Date CREATININE 0.73 [...] vaginal bleeding, and vaginal discharge PHYSICAL EXAMINATION: BP 115/60 (BP Site: Left Arm, BP Postition: Sitting, BP CUFF SIZE: L (13-17 inches)) Pulse 87 Ht 157.5 cm (5' 2 ) Wt 103.9 kg (229 lb) BMI 41.88 kg/m and heart rate present. Gravid abdomen, Alert & Oriented. Respirations not labored. DISCUSSION: Hyperglycemia Importance of good blood sugar control was emphasized. The potential effects of uncontrolled diabetes before and during on herself were discussed including: preeclampsia, induced hypertension, labor, , and polyhydramnios. Potential effects on baby were explained: stillbirth, miscarriage, macrosomia, jaundice, trauma, hypoglycemia, respiratory distress and hypocalcemia. Medication initiation Initiation of medication: When diet and exercise fail to maintain normal blood glucose level, medication therapy is indicated. Medication is initiated when > 20% of the blood glucose values in one week are out of range, or BG values are repeatedly elevated a specific time of day; and meal plan or activity cannot be modified to correct elevated blood glucose. Oral vs. SQ treatment Discussed oral hyperglycemic agent Metformin. Explained this medication does cross the placenta and reach the baby. Little research has been done on consultant intern effects of Metformin exposure to the fetus. We do use in with every effort to minimize exposure. Also discussed possible GI side effects from this medication. Discussed insulin which does not cross the placenta, nor have the GI side effects like Metformin. Insulin is the recommended first line of treatment for diabetes in . Insulin administration Patient was instructed on: action of prescribed insulin, when to take prescribed doses in relation to daily schedule/meals, use of an insulin pen, how to given an injection into the sub-Q tissues with recommendation on use of abdomen, rotation of injections within designated site, proper disposal of sharps, and hypoglycemia. Recommended carbohydrate allocation ranges: 30-45 g for breakfast, 45-60 g for lunch and dinner, and 15-g snacks roughly 2-3 hours after each meal. A1c less than 6% has the lowest risk for LGA infant ACOG ASA 81 mg PO daily recommendation reviewed for pre-eclampsia prevention Metformin plans to be stopped. SUMMARY/RECOMMENDATION: The following is a summary of our recommendations: 1. Blood work: Not at time for baseline 2. Medication: ASA 81 mg po daily Stop Metformin NPH 5 units in am and 5 units in pm Other medications as above 3. testin wk anatomy scan scheduled 02/08 NST/DVP weekly at 32 weeks Twice weekly NST w/ weekly DVP at 36 weeks growth ultrasounds every 4 weeks starting at 28 weeks 4. Delivery timing: Consider planned delivery btw 39/0-39/6 weeks or before if indicated GDMA2:may monitor patient's BG every 4hrs during latent labor, every 1 hr during active labor with goal BG to be less than 140mg/dl. Can use insulin sliding scale prn hyperglycemia. No need for insulin use the day of her delivery 5. Post : As she has only [...] values to us weekly by e-mail to: [email or web address] or by fax to: [phone] TIME OF CONSULTATION: 35 minutes with the patient, >50% in discussion and counseling, coordination of care which was [id number], review of records and communication back to referring provider. HOWARD Wihtman 01/26/25 1606 documented in this encounter [facility] 01-26-2025 History of Present illness Narrative Nutritional Assessment Form Date: 01/26/2025 JANIYA: Estimated Date of Delivery: 06/24/25 EGA: 18w5d Past Medical History: Diagnosis Date Depression [place] product of in vitro fertilization (IVF) 2024 Suicide attempt ([facility]) OB History 1 Para 0 Term 0 0 AB 0 Living 0 SAB 0 IAB 0 Ectopic 0 Multiple 0 Live Births 0 Current Outpatient Medications Medication Sig Dispense Refill alcohol swabs (ALCOHOL PREP PADS) pads, medicated Apply 1 Pad topically as needed (Use to check blood sugar). blood sugar diagnostic (glucose blood) strip 1 strip as needed. Use to check blood sugar 4 times daily. Fasting in the morning, and 1 hour after each meal. blood-glucose meter misc 4 (four) times a day. Use to check blood sugar 4 times daily. Fasting in the morning, and 1 hour after each meal. insulin NPH (HumuLIN N,NovoLIN N) 100 unit/mL injection Inject 0.05 mL (5 Units total) under the skin. Take 5 units in the morning and 5 units in the evening insulin syringe-needle U-100 (INSULIN SYRINGE) 0.5 mL 29 gauge x 1/2 syringe by miscellaneous route. lancets (LANCETS,ULTRA THIN) misc Use to check blood sugar 4 times daily. Fasting in the morning, and 1 hour after each meal. metFORMIN (FORTAMET) 500 MG (OSM) 24 hr tablet Take 1 tablet (500 mg total) by mouth daily with breakfast. No current facility-administered medications for this visit. Present MNT Therapy: regular Insulin Therapy: NPH Date started: Anthropometric Data: Height: Ht Readings from Last 1 Encounters: 12/30/24 157.5 cm (5' 2.01 ) Pre- Wt: 106.6 kg (235 lb) Pre- BMI: 42.97 Current BMI: Body mass index is 41.87 kg/m . Pre Wt. Category: obese Current Weight: Wt Readings from Last 1 Encounters: 01/26/25 103.9 kg (229 lb) Weight Gain Goals: 11-20# Lab Data: BP BP Readings from Last 1 Encounters: 11/24/20 128/90 Hgb Hct OGCT OGTT HgA1C SMBG: Frequency : Testing Times: Glucose meter: Records Kept? 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 Current Exercise program walking Who prepares the meal pt Who purchase food at your home? pt Equipment use for cooking/food storage has all Food Assistance(Ex.WIC, Food [place]) knows about Dining out Yes 1-2 times per month Appetite/Appetite changes slightly increasing Weight History stable Do you have cats at home? Feeding Plans Breast Feeding If you have cats, who cleans the litter box? Cravings/Aversions/Pica none Nutrition Assessment Worksheet: Week/Weekend Food Recall Breakfast Oat milk Cereal Banana Snack Lunch Chicken Rice Beans cheese Snack Dinner Jamey Fried rice Chicken Snack Snack Time Kevin White presents for diet instruction per doctor order secondary to diagnosis of gestational diabetes. Food recall suggests patient typically consumes a diet of mainly healthy choices. Pt has lost 6# to date. Based on patient's stated pre- weight, weight gain goal is 11-20#. Nutrition diagnosis: inconsistent and excessive carbohydrate intake related to lack of nutrition knowledge as evidenced by patient's food recall. Instructed patient in 2000 kcal meal plan of 3 meals and 3 snacks, carbohydrate counting, label reading, dining out, and portion control. Discussed foods rich in iron and calcium. Encouraged patient to limit dining out and measure food for 2 days. Reviewed exercise guidelines with patient given provider approval. Pt expressed understanding with counting carbohydrates and agreed to send RD a 2 day food log. Please refer to health habits for other goals. Patient understands that we will follow up weekly with a phone call to review progress. Face to face time 35 minutes. DIABETES AND ASSESSMENT Type of diabetes: GDM Age at onset: current Duration: current Still : OB History Para Term AB Living 1 0 0 0 0 0 SAB IAB Ectopic Multiple Live Births 0 0 0 0 0 No LMP recorded. Patient is . Estimated Date of Delivery: 06/24/25 No of wks at 1st visit:18w5d Results of glucose testing: Date of one hour testing: Results did not do a 1 hour or 3 hour did testing. Date of 3 hour Testing: Results A1C results and date: HGBA1C was 4.9 12/23/24 Pre- BMI: Could not be calculated Calorie Prescription: Assessed Barriers to Education and Self Care [] Financial [] Anger [] Low Literacy [] Transportation [] Anxiety [] Cogenitive deficit [] Lack of support [] Denial [x] Other Other comments:noneAssessment DIABETES AND ASSESSMENT Mother of fetus Father of fetus Occupation and work hours Healthcare providers that care for you: OB Provider Family Doctor Minister Assistant Name: Mendoza Name: No primary care provider on file. Name: City: City: City: Last time seen: Last time seen: Last time seen: Eye Doctor Dentist Other Doctors Name: Name: Name: City: City: City: Last time seen: Last time seen: Last time seen: OB History Para Term AB Living 1 0 0 0 0 0 SAB IAB Ectopic Multiple Live Births 0 0 0 0 0 # Outcome Date GA Lbr Marvin/2nd Weight Sex Type Anes PTL Lv 1 Current No Known Allergies Current Outpatient Medications Medication Sig Dispense Refill alcohol swabs (ALCOHOL PREP PADS) pads, medicated Apply 1 Pad topically as needed (Use to check blood sugar). blood sugar diagnostic (glucose blood) strip 1 strip as needed. Use to check blood sugar 4 times daily. Fasting in the morning, and 1 hour after each meal. blood-glucose meter misc 4 (four) times a day. Use to check blood sugar 4 times daily. Fasting in the morning, and 1 hour after each meal. insulin NPH (HumuLIN N,NovoLIN N) 100 unit/mL injection Inject 0.05 mL (5 Units total) under the skin. Take 5 units in the morning and 5 units in the evening insulin syringe-needle U-100 (INSULIN SYRINGE) 0.5 mL 29 gauge x 1/2 syringe by miscellaneous route. lancets (LANCETS,ULTRA THIN) misc Use to check blood sugar 4 times daily. Fasting in the morning, and 1 hour after each meal. metFORMIN (FORTAMET) 500 MG (OSM) 24 hr tablet Take 1 tablet (500 mg total) by mouth daily with breakfast. No current facility-administered medications for this visit. Previous Hospitalizations none Past Surgical History: Procedure Laterality Date WISDOM TOOTH EXTRACTION Personal diabetes history: Gestational Diabetes Unanswered Diabetes mellitus Unanswered Family History of diabetes: pertinent family history is not on file. ROS: Constitutional: No problems Head and Neck: Wears glasses or contact lens Lungs and breathing: No problems Heart:: No problems Blood disorders and other conditions: MTHFR hetero Mental health: Depression/anxiety Kidney, Bladder, and Sexual History: Fertility issues PCOS Circulation and Nerves: No problems Endocrine and Diabetes Conditions: Pre-diabetes, Insulin resistance, and Polycystic ovarian syndrome (PCOS) Stomach and Intestines: No problems, Nausea/vomiting, GERD (heartburn), and Constipation Educational Level: 4 years college Preferred Methods for Learning: Listening/Verbal directions, Reading, Watching someome do it first, and Hands on demonstration Is there anything about your culture, mormonism, or personal beliefs we need to know about to care for you: none Primary Language spoken: Luxembourger [22] Primary Language for learning: Luxembourger Are you currently in a relationship where you are physically hurt, threatened or made to fee afraid? 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 [] Yes [x] No Marital status/Living arrangements [x] [] Single [] Partner [] Father of baby [] Friend [] Parent(s) [x] Other family member [] Self Social History Social History Socioeconomic History Marital status: Spouse name: Not on file Number of children: Not on file Years of education: Not on file Highest education level: Not on file Occupational History Not on file Tobacco Use Smoking status: Former Types: Cigarettes Smokeless tobacco: Never Substance and Sexual Activity Alcohol use: Not Currently Comment: Socially Drug use: No Sexual activity: Yes Partners: Female, Male Other Topics Concern Not on file Social History Narrative Not on file Social Drivers of Health Financial Resource Strain: Not on file Food Insecurity: Not on file Transportation Needs: Not on file Physical Activity: Not on file Stress: Not on file Social Connections: Not on file Interpersonal Safety: Not on file Housing Instability: Not on file Everyday Stress Level Stress Scale [] 1 Low [x] 2 [] 3 [] 4 [] 5 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 [] Yes [x]No If yes, where: On thge following scale, chinik the number, which describes your current level of pain. [x] 0 [] 1 [] 2 [] 3 [] 4 [] 5 [] 6 [] 7 [] 8 [] 9 [] 10 No Pain Worst Pain Possible How long does the pain last?: What do you do to help the pain go away? PLEASE COMPLETE THE FOLLOWING QUESTIONS - IF YOU HAVE DIABETES NOW OR HAVE HAD WITH A PREVIOUS HAVE YOU HAD ANY OF THE FOLLOWING SYMPTOMS OF LOW BLOOD SUGARS Shaky [] Yes [x] No Irritability [] Yes [x] No Heart Palpitations [] Yes [x] No Nervousness [] Yes [x] No Cold sweats [] Yes [x] No Headache [] Yes [x] No Passed out [] Yes [x] No Dizzy [] Yes [x] No Confusion [] Yes [x] No Seizures [] Yes [x] No What do you use to treat your low blood sugars? Xuan Jade was seen today and diabetes education was provided. She was given a meal and snack schedule and a meter to monitor BGs. She was advised to monitor BGs FBS and 1 hr after meals and show to you and send to CDE weekly for review. Pt did the 2 weeks of testing anf she had fastings in the 97-159 range. She was placed on insulin 01/09 per her OB. She was placed on NPH 5 units in the morning and 5 units in the evening. She is also taking metformin 500 mg but she is taking it in the evening. She has a hx of PCOS and infertility, also to a female. She did IVF with a doner sperm, and she stated she does have frozen embryos in storage. She had a hgba1c in June of 5.9 and she had a repeat hgba1c 12/23/24 and it was 4.9. random today was 115. She brought her mother with her today. We discussed complications of diabetes on Mom and baby. She is doing her insulin injections in her abd. She is disposing of her needles appropriately. She will send in her blood sugars on Mondays. She had an appt with Apollo Sandoval today, see her letter for details on her appt with Apollo and any medication changes and or lab work she may have ordered. Her blood sugars look really good since she started the insulin. only1-2 above target. Face to face time was 60min. . documented in this encounter [facility] 01-26-2025 Instructions Sonya Lomax RN - 01/26/2025 1:30 PM EDT Daily Schedule - Diet [] GET UP 6am [] Check sugar and record 6am [] EAT BREAKFAST 7-8am [] Check sugar 1 hour after start of meal and record 8-9am [] Eat morning snack 10am [] EAT LUNCH 1130am-1230pm [] Check sugar 1 hour after start of meal and record 1230-130pm [] Eat afternoon snack 3pm [] EAT DINNER 6-630pm [] Check sugar 1 hour after start of meal and record 7-730pm [] Eat bedtime snack (HS) 930-10pm BLOOD SUGAR GOALS: Before breakfast: 60-95 1 hours after meals 60-130 PLEASE REPORT BLOOD SUGARS: Over 100 before breakfast Over 130 after meals REMEMBER: EAT EVERY 3- 4 HOURS WHILE AWAKE documented in this encounter [facility] 01-20-2025 History of Present illness Narrative Reason for Appointment: Patient ID: Kevin White is a 29 y.o. female who presents for Routine Visit Patient presents today for Return OB appointment. MEDICATIONS Current Outpatient Medications Medication Instructions Alcohol Swabs (Alcohol Prep Pad) 70 % pads 1 Pad, Topical, Daily, Use four times daily to check FSBS. Blood Glucose Monitoring Suppl (AdiCyte Glucometer) w/Device kit 1 kit, Does not apply, Daily, Use four times daily to check FSBS. In the morning prior to breakfast & 1 hour after each meal for a total of 4times daily. Glucose Blood (Blood Glucose Test) strip 1 strip, In Vitro, Daily, Use in the morning prior to breakfast, 1 hour after each meal for a total of 4times daily. insulin syringe 29G X 1/2 0.5 mL misc Use 2 syringes in the morning for insulin dosage and 2 syringes in the Evening for insulin dosage. Total of 4 syringes daily needed. Lancets Ultra Thin misc 1 each, In Vitro, Daily, Use to check FSBS four times daily metFORMIN XR (Glucophage-XR) 500 MG 24 hr tablet NovoLIN N 5 Units, Subcutaneous, 2 times daily NovoLIN R 5 Units, Subcutaneous, 2 times daily ALLERGIES No Known Allergies PROBLEMS Active Ambulatory Problems Diagnosis Date Noted No Active Ambulatory Problems Resolved Ambulatory Problems Diagnosis Date Noted No Resolved Ambulatory Problems No Additional Past Medical History HISTORY PAST MEDICAL HISTORY SOCIAL HISTORY History reviewed. No pertinent past medical history. Social History Tobacco Use Smoking status: Not on file Smokeless tobacco: Not on file Substance Use Topics Alcohol use: Not on file Drug use: Not on file FAMILY HISTORY No family history on file. SURGICAL HISTORY History reviewed. No pertinent surgical history. REVIEW OF SYSTEMS Review of Systems: Review of Systems Constitutional: Negative. HENT: Negative. Eyes: Negative. Respiratory: Negative. Cardiovascular: Negative. Gastrointestinal: Negative. Genitourinary: Negative. Musculoskeletal: Negative. Skin: Negative. Neurological: Negative. All other systems reviewed and are negative. Hematological: Negative. Endocrine: Negative. Allergic/Immunologic: Negative. OBJECTIVE Objective: Physical Exam Constitutional: Appearance: Normal appearance. Genitourinary: Right Adnexa: not tender and no mass present. Left Adnexa: not tender and no mass present. No cervical discharge. Breasts: Breasts are soft. Right: Normal. Left: Normal. HENT: Head: Normocephalic. Nose: Nose normal. Mouth/Throat: Mouth: Mucous membranes are moist. Cardiovascular: Rate and Rhythm: Normal rate. Pulmonary: Effort: Pulmonary effort is normal. Abdominal: General: Bowel sounds are normal. Palpations: Abdomen is soft. Musculoskeletal: General: Normal range of motion. Cervical back: Normal range of motion. Neurological: General: No focal deficit present. Mental Status: She is alert. Skin: General: Skin is warm and dry. Psychiatric: Mood and Affect: Mood normal. Vitals and nursing note reviewed. Exam conducted with a laminator preforms present. Vitals: There is no height or weight on file to calculate BMI. BP: 120/70 No LMP recorded. Patient is . ASSESSMENT & PLAN ICD-10-CM 1. Well woman exam with routine gynecological exam Z01.419 Pap Smear HPV DNA probe, amplified 2. 17 weeks gestation of Z3A.17 POCT urinalysis dipstick manually resulted 3. Second trimester Z34.92 POCT urinalysis dipstick manually resulted Alpha fetoprotein, maternal Alpha fetoprotein, maternal 4. Exposure to STD Z20.2 CHLAMYDIA TRACHOMATIS (GENITO/STI) Neisseria gonorrhea DNA probe, direct 5. Vaginal discharge N89.8 SURESWAB(R) ADVANCED VAGINITIS PLUS, TMA Return OB: Patient presents today for a routine obstetrics appointment. Patient is currently 17w6d . Patient states she is doing well but has complaints of being tired due to current . Patient has verbalizes frequent movement. Orders Placed This Encounter Procedures HPV DNA probe, amplified Alpha fetoprotein, maternal CHLAMYDIA TRACHOMATIS (GENITO/STI) Neisseria gonorrhea DNA probe, direct POCT urinalysis dipstick manually resulted Follow Up: Patient is to return to office in 4 week for routine OB appointment. Documented by LEELEE Keita on behalf of: LEELEE Keita documented in this encounter [facility] 12-29-2024 Miscellaneous Notes I left a message for pt to call to schedule her us/ and consult, I will call her again documented in this encounter [facility] 12-29-2024 Telephone encounter Note I left a message for pt to call to schedule her us/ and consult, I will call her again [facility] [employer] 12-23-2024 History of Present illness Narrative Reason for Appointment: Patient ID: Kevin White is a 29 y.o. female who presents for Routine Visit Patient presents today for Return OB appointment. MEDICATIONS Current Outpatient Medications Medication Instructions metFORMIN (Glucophage) 250 MG split tablet metFORMIN XR (Glucophage-XR) 500 MG 24 hr tablet ALLERGIES No Known Allergies PROBLEMS Active Ambulatory [...] SYSTEMS Review of Systems: Review of Systems All other systems reviewed and are negative. OBJECTIVE Objective: Physical Exam Constitutional: Appearance: Normal appearance. She is well-developed. Cardiovascular: Rate and Rhythm: Normal rate and regular rhythm. Pulmonary: Effort: Pulmonary effort is normal. Breath sounds: Normal breath sounds. Abdominal: General: Bowel sounds are normal. There is no distension. Palpations: Abdomen is soft. Tenderness: There is no abdominal tenderness. There is no guarding or rebound. Musculoskeletal: General: No swelling. Normal range of motion. Right lower leg: No edema. Left lower leg: No edema. Neurological: Mental Status: She is alert and oriented to person, place, and time. Skin: General: Skin is warm and dry. Psychiatric: Mood and Affect: Mood normal. Behavior: Behavior normal. Vitals and nursing note reviewed. Exam conducted with a laminator preforms present. Vitals: There is no height or weight on file to calculate BMI. BP: No LMP recorded. Patient is . ASSESSMENT & PLAN ICD-10-CM 1. Second trimester Z34.92 POCT urinalysis dipstick manually resulted 2. 13 weeks gestation of Z3A.13 New OB: Patient presents today for 1st time obstetrics appointment with provider. Patient is currently 13w6d . Patients history has been reviewed in great detail including any potential risks. Patient stated she currently has no complaints. Expectations throughout regarding labs, ultrasounds, and appointments have been discussed with the patient in detail. It was reiterated that the patient is to drink 6-8 glasses of water a day, eat 6 small meals a day, do not consume raw or undercooked meat, and stay away from [facility]. Patient has been consulted regarding any further do's and don'ts of . Patient voiced understanding and all questions and concerns were answered. Patient has done 4 rounds of invitro to conceive this . 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 Patient will be referred to [facility] and can discuss medication at that time with High Risk providers. Patient to obtain Level II ultrasound with Maternal Medicine as well. Recommended Early 1hr gtt at 16 weeks gestation. Patient is currently taking Metformin & discussed possibly checking FSBS for 2 weeks then defer 1 hour gtt until routine check throughout . Genetic testing was done through [facility] prior to IVF. Orders Placed This Encounter Procedures POCT urinalysis dipstick manually resulted Follow Up: Patient is to return in 4 weeks for routine OB appointment. Documented by Bee Parkinson LPN on behalf of: Cain Donaldson DO documented in this encounter [facility] 11-25-2024 History of Present illness Narrative Reason for Appointment: Patient ID: Kevin White is a 29 y.o. female who presents for Amenorrhea Patient presents today for a Nurse OB Intake appointment. Patient is 9w6d with a Estimated Date of Delivery: 06/24/25 OB History Para Term AB Living 1 SAB IAB Ectopic Multiple Live Births # Outcome Date GA Lbr Marvin/2nd Weight Sex Type Anes PTL Lv 1 Current Current Medications: currently has no medications in their medication list. Medical History: Active Ambulatory Problems Diagnosis Date Noted No Active Ambulatory Problems Resolved Ambulatory Problems Diagnosis Date Noted No Resolved Ambulatory Problems No Additional Past Medical History No family history on file. Social History Tobacco Use Smoking status: Not on file Smokeless tobacco: Not on file Substance Use Topics Alcohol use: Not on file Drug use: Not on file History reviewed. No pertinent surgical history. No Known Allergies Vitals: There is no height or weight on file to calculate BMI. BP: No LMP recorded. Patient is . Assessment/Plan Diagnoses and all orders for this visit: Missed menses - Type and screen; Future - ABO/Rh; Future - CBC and differential - Hemoglobin A1c - RPR - Rubella antibody, IgG - Hepatitis B surface antigen - Hepatitis C antibody - HIV-1 and HIV-2 antibodies - Urine culture - POCT , urine manually resulted - POCT urinalysis dipstick manually resulted 9 weeks gestation of , unspecified gestational age - Type and screen; Future - ABO/Rh; Future - CBC and differential - Hemoglobin A1c - RPR - Rubella antibody, IgG - Hepatitis B surface antigen - Hepatitis C antibody - HIV-1 and HIV-2 antibodies - Rapid drug screen, urine; Future Encounter for supervision of normal first in first trimester - Rapid drug screen, urine; Future Nurse Note: OB Intake: Patient presents today for first OB visit. Patients history has been reviewed in great detail including any potential risks. Patient signed consent forms and patient desires testing in both trimesters. Patient currently has no complaints and has been advised to drink 6-8 glasses of water a day, eat no raw or undercooked meat, and stay away from [facility]. Patient has also been advised to not change litter boxes and eat 6 small meals a day. Patient has been consulted regarding the do's and don'ts of . Patient was given labs and all questions and concerns were answered. Pt declined the [employer] gender/genetics form. Pt did state she is Factor V. Follow Up: Patient is to return in 4 weeks for routine OB appointment. Follow Up: Patient is to have labs drawn at directed and return to office for initial OB appointment with provider. Patient may call office as needed with any concerns or questions. Nurse Visit Completed by: Colette Zamarripa MA documented in this encounter [facility] Evaluation note No assessment inform ation available [facility] Work Phone: Evaluation note Diagnosis Missed menses 9 weeks gestation of , unspecified gestational age Encounter for supervision of normal first in first trimester documented in [facility] encounter [facility]* Diagnosis Second trimester state, incidental 13 weeks gestation of Gestational diabetes mellitus (GDM), antepartum, gestational diabetes method of control unspecified Elevated glucose tolerance test Impaired glucose tolerance test resulting from in vitro fertilization, antepartum documented in this encounter [facility]* Diagnosis Well woman exam with routine gynecological exam Routine gynecological examination 17 weeks gestation of Second trimester state, incidental Exposure to STD Vaginal discharge Leukorrhea, not specified as infective documented in this encounter [facility] note* Diagnosis Insulin controlled gestational diabetes mellitus (GDM) in second trimester- Primary [facility] Diagnosis Insulin controlled gestational diabetes mellitus (GDM) in second trimester documented [facility]* Diagnosis Insulin controlled gestational diabetes mellitus (GDM) in second trimester- Primary Prediabetes in mother during 20 weeks gestation of Choroid plexus cyst of fetus affecting care of mother, antepartum, single or unspecified fetus Heterozygous factor V Leiden affecting in second trimester, antepartum Severe obesity due to excess calories affecting , antepartum (CMS-HCC) Bipolar disorder, in full remission, most recent episode depressed documented [facility]* Diagnosis Insulin controlled gestational diabetes mellitus (GDM) in second trimester- Primary Choroid plexus cyst of fetus affecting care of mother, antepartum, single or unspecified fetus Heterozygous factor V Leiden affecting in second trimester, antepartum Severe obesity due to excess calories affecting , antepartum (CMS-HCC) documented [facility]* Diagnosis Insulin controlled gestational diabetes mellitus (GDM) in second trimester- Primary Recurrent major depressive disorder, in partial remission Bipolar 1 disorder (CMS-HCC) Prediabetes in mother during documented [facility]* Diagnosis Insulin controlled gestational diabetes mellitus (GDM) in second trimester Prediabetes in mother during documented [facility]* Diagnosis 23 weeks gestation of Second trimester state, incidental induced hypertension, antepartum Transient hypertension of , antepartum Insulin controlled gestational diabetes mellitus (GDM) during , antepartum documented in this encounter [facility]* Diagnosis Second trimester state, incidental 27 weeks gestation of Gestational diabetes mellitus (GDM), antepartum, gestational diabetes method of control unspecified Factor 5 Leiden mutation, heterozygous (CMS/HCC) Conceived by in vitro fertilization documented [facility]* Diagnosis Insulin controlled gestational diabetes mellitus (GDM) in second trimester- Primary Recurrent major depressive disorder, in partial remission Prediabetes in mother during [facility] filedocumented in [facility] filedocumented in [facility] filedocument[facility] in [facility] filedocumented in [facility] filedocumented in [facility] on filedocumented in this [facility] on filedocumented in [facility] filedocumented in [facility] filedocumented in [facility] filedocumented in this [facility] Chief Complaint and Reason for Visit Chief Complaint right knee injury Advance Directives No Advanced Directives Records Found Advance Directive Response Recorded Date/ Time Advance Directives No April 06 12:03pm Summary Purpose Family History No Family History Records FoundNo Family History Records FoundNo Family History Records FoundNo Family History Records Found Additional Source Comments Care Teams (unrecognized sec tion and content) Team Status: Active Member Role Status Dates PHYSICIAN NO FAMILY Primary Care Provider Active Team Status: Inactive Member Role Status Dates PHYSICIAN NO FAMILY Primary Care Provider Active Start: April 06, 2024 End: April 06, 2024 Renita Fu APRN Attending Provider Active Start: April 06, 2024 End: April 06, 2024 Team Status: Active Member Role Status Dates PHYSICIAN NO FAMILY Primary Care Provider Active Start: April 06, 2024 LINDSAY Soliz Attending Provider Active Start: April 06, 2024 Team Status: Inactive Member Role Status Dates PHYSICIAN NO FAMILY Primary Care Provider Active Start: April 06, 2024 End: April 06, 2024 LINDSAY Soliz Attending Provider Active Start: April 06, 2024 End: April 06, 2024 Goals (unrecognized section and content) Goals may be documented in a n alternate sectionGoals may be documented in an alternate sectionNot on filedocumented as of this encounterNot on filedocumented as of this encounterNot on filedocumented as of this encounterNot on filedocumented as of this encounterNot on filedocumented as of this encounterNot on filedocumented as of this encounterNot on filedocumented as of this encounterNot on filedocumented as of this encounterNot on filedocumented as of this encounterNot on filedocumented as of this encounterNot on filedocumented as of this encounterNot on filedocumented as of this encounterNot on filedocumented as of this encounterNot on filedocumented as of this encounterNot on filedocumented as of this encounterNot on filedocumented as of this encounterNot on filedocumented as of this encounterNot on filedocumented as of this encounterNot on filedocumented as of this encounterNot on filedocumented as of this encounterNot on filedocumented as of this encounterNot on filedocumented as of this encounter INFORMATION SOURCE (unrecogn ized section and content) DATE CREATED AUTHOR 04/18/2024 [facility] DATE CREATED AUTHOR AUTHOR'S ORGANIZ ATION 03/11/2025 [facility] DATE CREATED AUTHOR AUTHOR'S ORGANIZ ATION 04/02/2025 [facility] DATE CREATED AUTHOR AUTHOR'S ORGANIZ ATION 04/02/2025 [facility] Reason for Visit (unrecogniz ed section and content) Reason Comments Amenorrhea Reason Comments Routine Visit Reason Comments Gestational Diabetes Specialty Diagnoses / Procedures Referred By Otis may Referred To Contact Maternal and Medicine Diagnoses Insulin controlled gestational diabetes mellitus (GDM) in second trimester Cain Donaldson DO Phone: tel: fax: Maternal- Medicine at [facility] [address] [place] [address] Phone: tel: fax: Referral ID Status Reason Start Date Expiration Date Visits Requested Visits Authorized [id number] Pending Review Specialty Services Required 01/11/2025 01/11/2026 1 1 Reason Comments Med Change Request Reason Comments GDMA2 Fertility Preservation Factor V Leiden Mutation FOR RECORDS PERTAINING TO PATIENTS WHO ARE OR HAVE BEEN ENROLLED IN A CHEMICAL DEPENDENCY/SUBSTANCEABUSE PROGRAM, SOME INFORMATION MAY BE OMITTED. This clinical summary was aggregated from multiple sources. Caution should be exercised in using it in the provision of clinical care. This summary normalizes information from multiple sources, and as a consequence, information in this document may materially change the coding, format and clinical context of patient data. In addition, data may be omitted in some cases. CLINICAL DECISIONS SHOULD BE BASED ON THE PRIMARY CLINICAL RECORDS. [facility]. provides no warranty or guarantee of the accuracy or completeness of information in this document.
--- NOTE | 2025-04-05 17:27 | US_ITS ---
[place] [id number] Patient Name: FANNIE WHITE MRN: [id number] date: 1995 Sex: F Assigned Patient Location: [facility] Current Patient Location: [facility] Accession/Order Number: [id number] Exam Date: 04/05/2025 17:57 Report Date: 04/05/2025 17:58 At the request of: ALFREDO PROCTOR DO Procedure: US OB BPP w non-stress Ultrasound biophysical profile HISTORY: Gestational diabetes Adequate breathing movement, gross body movement, tone and amniotic fluid volume for total score of 8 out of 8. The amniotic fluid index is 13.7cm within normal limits. The heart rate 125 bpm. US/US OB BPP w non-stress IMPRESSION: Adequate ultrasound biophysical profile Impression dictated by: Zion Steen M.D. 04/05/2025 5:58 PM Dictation [facility] Electronically authenticated by: [id number] Y Date: 04/05/2025 17:58
[2025-04-05 17:50] VITALS: BP 115/57; PULSE 85
== END 2025-04-05 18:16 | disposition home or self-care (01) ==
LOC: US 16:50 → FBCO 17:00 → FBC 17:06
PROVIDERS: PCP Obstetrics & Gynecology; Visit Provider Nurse Practitioner Family
DX: O24.419 Gestational diabetes mellitus in pregnancy, unspecified control (principal); D68.51 Activated protein C resistance; Z78.9 Other specified health status
CPT/HCPCS: 76818

== ENCOUNTER 2025-04-08 17:07 | Outpatient (OUT) | payer BC, SELFPAY ==
--- OUTSIDE RECORDS SUMMARY | 2025-01-21 11:10 | XMS_ITS | Continuity of Care Document ---
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 [address] [place] [address], [id number] , [place]. tel: [phone] [facility], [address] [place] [address], [id number] , [place] tel: [phone] [facility] Encounter for screening for respiratory tuberculosis 5 Visci DO Miguel. [address] [place] [address], [id number] , [place]. tel:[phone] [facility], [address] [place] [address], [id number] , [place] tel: [phone] [facility] No Information 4 Visci DO Miguel. [address] [place] [address], [id number] , [place]. tel: [phone] [facility], [address] [place] [address], [id number] , [place] tel:+ [phone] [facility] Lab Draw (chief complaint) Other specified disorders of pancreatic internal secretionSubclinical iodine-deficiency hypothyroidismEncount er for screening for other viral diseasesEncounter for screening for other infectious disease 4 Cynthia White. [address] [place], [place], 873359882 , [place]. tel: [phone] [facility], [address] [place], [place], 308711990 , [place] tel: [phone] [facility] lab draw (chief complaint) Encounter for screening for other viral diseases 4 Cynthia White. [address] [place], [place], 842541094 , [place]. tel: [phone] [facility], [address] [place], [place], 081146056 , [place] tel: [phone] [facility] No Information 4 Cynthia White. [address] [place], [place], 540980696 , [place]. tel: [phone] [facility], [address] [place], [place], 912493298 , [place] tel: [phone] [facility] Encounter for screening for respiratory tuberculosis 4 Cynthia White. [address] [place], [place], 696698682 , [place]. tel: [phone] [facility], [address] [place], [place], 092499152 , [place] tel: [phone] [facility] Lab draw (chief complaint) Blood test prior to procedure 4 Cynthia White. [address] [place], [place], 706645734 , [place]. tel: [phone] Referring Provider: Tenisha Leon IA. [facility], [address] [place], [place], 632438865 , [place] tel: [phone] [facility] No Information 3 Cynthia White. [address] [place], [place], 124969280 , [place]. tel: [phone] [facility], [address] [place], [place], 213045123 , [place] tel: [phone] [facility] COVID Test (chief complaint) Encounter for screening for COVID-19 3 Cynthia White. [address] [place], [place], 329891275 , [place]. tel: [phone] [facility], [address] [place], [place], 291540036 , [place] tel: [phone] [facility] Lab Draw (chief complaint) Encounter for antibody response examination 3 Cynthia White. [address] [place], [place], 516777001 , [place]. tel: [phone] [facility], [address] [place] [address], [id number] , [place] tel: [phone] [facility] lab (chief complaint) Other specified disorders of pancreatic internal secretion 3 Cynthia White. [address] [place], [place], 260954297 , [place]. tel: [phone] [facility], [address] [place] [address], 466973294 , [place] tel: [phone] [facility] Lab draw (chief complaint) Blood test prior to procedure 3 Cynthia White. [address] [place], [place], 279385525 , [place]. tel: [phone] [facility], [address] [place] [address], 285012759 , [place] tel: [phone] [facility] lab draw (chief complaint) Endocrine disorder 3 Cynthia White. [address] [place], [place], 503948607 , [place]. tel: [phone] [facility], [address] [place] [address], 837561531 , [place] tel: [phone] [facility] Encounter for screening for COVID-19 3 Visci DO Miguel. [address] [place], [place], 465719908 , [place]. tel: [phone] [facility], [address] [place], [place], 480214401 , [place] tel: [phone] [facility] Lab draw (chief complaint) Blood test prior to procedureEncounter for screening for COVID-19 3 Visci DO Miguel. [address] [place], [place], 308688955 , [place]. tel: [phone] [facility], [address] [place], [place], 902955342 , [place] tel: [phone] [facility] No Information 3 Visci DO Miguel. [address] [place], [place], 555387720 , [place]. tel: [phone] [facility], [address] [place], [place], 809670354 , [place] tel: [phone] [facility] No Information 3 Visci DO Miguel. [address] [place], [place], 664090477 , [place]. tel: [phone] [facility], [address] [place], [place], 022956601 , [place] tel: [phone] [facility] No Information 2 Visci DO Miguel. [address] [place], [place], 536229003 , [place]. tel: [phone] [facility], [address] [place], [place], 566931178 , [place] tel: [phone] [facility] No Information 2 Visci DO Miguel. [address] [place], [place], 586060937 , [place]. tel: [phone] [facility], [address] [place], [place], 205247699 , [place] tel: [phone] [facility] No Information 2 Visci DO Miguel. [address] [place], [place], 089072846 , [place]. tel: [phone] [facility], [address] [place], [place], 242332536 , [place] tel: [phone] [facility] Encounter for screening for respiratory tuberculosis 2 Visci DO Miguel. [address] [place], [place], 053036719 , [place]. tel: [phone] [facility], [address] [place], [place], 544628573 , [place] tel: [phone] [facility] Encounter for screening for respiratory tuberculosis 2 Visci DO Miguel. [address] [place], [place], 607976498 , [place]. tel: [phone] [facility], [address] [place], [place], 532117880 , [place] tel: [phone] [facility] Encounter for screening for respiratory tuberculosis 2 Visci DO Miguel. [address] [place], [place], 088532343 , [place]. tel: [phone] [facility], [address] [place], [place], 080886513 , [place] tel: [phone] [facility] No Information 1 Visci DO Miguel. [address] [place], [place], 871809143 , [place]. tel: [phone] [facility], [address] [place], [place], 828894383 , [place] tel: [phone] [facility] No Information 1 Visci DO Miguel. [address] [place], [place], 536268872 , [place]. tel: [phone] [facility], [address] [place], [place], 040181386 , [place] tel: [phone] [facility] No Information 1 Visci DO Miguel. [address] [place], [place], 599229402 , [place]. tel:[phone] Family History Family Member Type Diagnosis Age [...] type Covered green party ID Authoriza tion(s) [employer] BL [id number] [employer] BL [id number] [employer] BL [id number] [employer] BL [id number] [employer] BL [id number] [employer] BL [id number] [employer] BL [id number] Social History Type Description Quantity Date Captured [...] 2031 due Goal Influenza vaccine. Due on Nd due Goal Hepatitis C screening. Due o n due Goal Tdap due Goal RLP. Due on due Goal Hep A. Due on du e Goal Influenza vaccine. Due on Nd due Goal Unhealthy drug use screening . [...] on due Goal Influenza vaccine. Due on Nd due Goal PRAPARE ASSESSMENT. Due on due [...] Goal Influenza vaccine. Due on due Goal Influenza vaccine. Due on due Goal RLP. Due on due Goal Tdap Vaccine. Due on 2031 due Goal Tdap due Goal PAP. Due on due Goal PRAPARE ASSESSMENT. Due on M due Goal Depression screening. Due on due Goal Hep A. Due on du e Goal PAP. Due on due Goal Influenza [...] Goal PRAPARE ASSESSMENT. Due on due Goal Tdap. Due on [...]
--- OUTSIDE RECORDS SUMMARY | 2025-03-30 08:50 | XMS_ITS | Encounter Summary ---
Author Organization [facility] Address [address] [facility] [place] [address] Care Team Providers Care Post Commander Name Role Phone Unavailable Primary Care Provider Unavailabl e Reason for Visit * Reason Comments Routine Visit Encounter Details Date Type Department Care Team (Latest Contact Info) Description 03/30/2025 8:50 AM EDT Routine [facility] [address] [place] [phone] Christy Schwartz PA [address] [facility] [address] [place], [place] [address] Second trimester ; 27 weeks gestation of [...] this encounter Progress Notes * Belgica Scherer AMBULANCE OFFICER - 03/30/2025 8:50 AM EDT Reason for Appointment: Patient ID: Kevin Conley is a 29 y.o. female who presents for Routine Visit Patient presents today for Return OB appointment. MEDICATIONS Current Outpatient Medications Medication Instructions Alcohol Swabs (Alcohol Prep Pad) 70 % pads 1 Pad, Topical, Daily, Use four times daily to check FSBS. Blood Glucose Monitoring Suppl ([employer] Glucometer) w/Device kit 1 kit, Does not [...] EDT Routine [facility] [address] [place] [address] Cain Donaldson, DO [address] [place] [address] Scheduled Orders Name Type Priority Associated Diagnoses [...]
--- OUTSIDE RECORDS SUMMARY | 2025-03-30 13:30 | XMS_ITS | Encounter Summary ---
Author Organization [facility], [place] [facility] Address [id number] [address] [place] [address] Care Team Providers Care Package Dye Stand Loader Name Role Phone Unavailable Primary Care Provider Unavailabl e Reason for Referral * Medication Prior Authorization - Closed Specialty Diagnoses / Procedures Referred By Contgonzalez t Referred To Contact Diagnoses Insulin controlled gestational diabetes mellitus (GDM) in second trimester Prediabetes in mother during Sintia Martinez APRN-CNP [address] [place] [address] Phone: tel: fax: Referral ID Status Reason Start Date Expiration Date Visits Re quested Visits Authorized [id number] Closed 1 1 Encounter Details Date Type Department Care Team (Late st Contact Info) Description 03/30/2025 1:30 PM EDT Telemedicine Maternal- Medicine at [facility] [address] [place] [address] Sintia Martinez APRN-CNP [address] [place] [address] Insulin controlled gestational diabetes mellitus (GDM) in second trimester (Primary Dx); Recurrent major depressive disorder, in partial remission; Prediabetes in mother during Social History Tobacco Use Types Packs/Day Years Used Date Smoking Tobacco: Former Cigarettes 2010 Smokeless Tobacco: Never Alcohol Use Standard Drinks/Week Comments Not Currently 0 (1 standard drink = 0.6 oz pur e alcohol) Socially Childcare Answer Date Recorded Childcare Unknown 04/13/2019 Employment Answer Date Recorded Employment Unknown 04/13/2019 Hunger Screening Answer Date Recorded Within the past 12 months we worried whether our food would run out before we got money to buy more. Never True 02/08/2025 Within the past 12 months th e food we bought just didn't last and we didn't have money to get more. Never True 02/08/2025 Purpose - Life Answer Date Recorded Purpose and direction in life Unknown Estimated Date of Delivery Comme nts Yes 06/25/2025 Based on Other B asis, 5 day Embryo, transfer date 10/07/24, due date should be 06/25/25 Sex and Gender Information Value Date Recorded Sex Assigned at Not on file Legal Sex Female 5:30 PM EDT Gender Identity Not on file Sexual Orientation Not on file documented as of this encounter Progress Notes * Sintia Martinez, UMM-TANKAGE GRINDER - 03/30/2025 1:30 PM EDT REASON FOR OFFICE VISIT: Video Visit via Real-time Synchronous Audiovisual Provider Location: [facility]- MEDICINE AT [address] [phone] Patient Location: Patient's home Video Visit Consent Statement: I discussed risks, benefits, and alternatives of a real-time synchronous audiovisual consultation with the patient (and any accompanying persons) including the risks that the patient's personal health details and medical records will be discussed over real-time, synchronous, interactive video/audio/telecommunication technology, the visit will not be recorded withoutthe express consent of both the provider and the patient, and that there are some limitations compared to zptz-pd-heur evaluations. The patient consented to the presence of additional virtual and/or in-person participants. We elected to proceed. 1. GDMA2; A1c 5.9% in 06/2024, random 115, hg A1c 4.9 2. PCOS - was on metformin 3. Factor V leiden 4. Hx of MDD, Bipolar - stable without SI/HI 5. BMI 42.24 6. IVF donor sperm (s/o female eggs) - genetically tested before transfer HISTORY OF PRESENT ILLNESS: Kevin Conley is a pleasant 29 y.o. at 27w4d due on Estimated Date of Delivery: 06/25/25. Currently the patient has no complaints. The patient denies MATA, nausea, vomiting, abdominal pain, vaginal bleeding, contractions, leaking fluid or chest pain. +FM. She is being followed at [facility] due to GDMA2. States she is following meal plan as much as possible and eating evening snack. FBS - 77-95 1 HR Postprandial - 86 -148 Past Medical History PAST OBSTETRICAL HISTORY: OB History 2 Para 0 Term 0 0 AB 1 Living 0 SAB 1 IAB 0 Ectopic 0 Multiple 0 Live Births 0 SURGICAL HISTORY: Past Surgical History: Procedure Laterality Date WISDOM TOOTH EXTRACTION ALLERGIES: No Known Allergies CURRENT MEDICATIONS: Current Outpatient Medications: alcohol swabs (ALCOHOL PREP PADS) pads, medicated, Apply 1 Pad topically as needed (Use to check blood sugar)., Disp: , Rfl: aspirin 81 mg chewable tablet, Chew 1 tablet (81 mg total) and swallow in the morning., Disp: , Rfl: blood sugar diagnostic (glucose blood) strip, 1 strip as needed. Use to check blood sugar 4 times daily. Fasting in the morning, and 1 hour after each meal., Disp: , Rfl: blood-glucose meter [facility] [place], 4 (four) times a day. Use to check blood sugar 4 times daily. Fasting in the morning, and 1 hour after each meal., Disp: , Rfl: cholecalciferol 1,000 units tablet, Take 1 tablet (1,000 Units total) by mouth in the morning., Disp: , Rfl: insulin glargine (LANTUS SOLOSTAR U-100 INSULIN) 100 unit/mL (3 mL) insulin pen, Inject 19 units subcutaneously in abdomen every evening, Disp: 15 mL, Rfl: 3 insulin syringe-needle U-100 (INSULIN SYRINGE) 0.5 mL 29 gauge x 1/2 syringe, by miscellaneous route., Disp: , Rfl: lancets (LANCETS,ULTRA THIN) [facility], Use to check blood sugar 4 times daily. Fasting in the morning, and 1 hour after each meal., Disp: , Rfl: PNV no.153/FA/om3/dha/epa/fish ( GUMMIES ORAL), Take 2 tablets by mouth in the morning., Disp: , Rfl: LABS: Lab Results Component Value Date CREATININE 0.73 01/06/2016 Lab Results Component Value Date TSH 3.31 11/24/2020 No results found for: [id number] Lab Results Component Value Date CREATININE 0.73 01/06/2016 BUN 12 01/06/2016 K 3.5 01/06/2016 CL 102 01/06/2016 CO2 28 01/06/2016 Lab Results Component Value Date ALT 19 11/12/2012 AST 17 11/12/2012 ALKPHOS 43 11/12/2012 Lab Results Component Value Date HGBA1C 4.9 12/23/2024 REVIEW OF SYSTEMS: Head and Neck: Negative for any dizziness and headaches. Cardiovascular and Respiratory System: Denies any chest pain, shortness of breath, and coughing. Abdominal and System: Denies any abdominal pain, nausea, vomiting, vaginal bleeding, and vaginal discharge PHYSICAL EXAMINATION: There were no vitals taken for this visit. and heart rate present. Gravid abdomen, Alert & Oriented. Respirations not labored. DISCUSSION: Fasting levels slightly elevated Has a 1 month old at home through kinship care - baby does sleep through the night some nights but undergoing more stress at home. Recommended carbohydrate allocation ranges: 30-45 g for breakfast, 45-60 g for lunch and dinner, and 15-g snacks roughly 2-3 hours after each meal. A1c less than 6% has the lowest risk for LGA SUMMARY/RECOMMENDATION: The following is a summary of our recommendations: 1. Blood work: Per primary Ob provider in the presence of concerning s/s 2. Medication: Lantus increased to 22 units each evening Other medications as above 3. testing: Twice weekly NSTw/ weekly DVP at 32 weeks growth ultrasounds every 4 weeks starting at 28 weeks 4. Delivery timing: Consider planned delivery btw 39/0-39/6 weeks or before if indicated Use 1/2 dose of insulin the night before her planned delivery - to be determined closer to delivery. GDMA2:may monitor patient's BG every 4hrs during latent labor, every 1 hr during active labor with goal BG to be less than 140mg/dl. Can use insulin sliding scale prn hyperglycemia. 5. Post : As she has only gestational diabetes, there is no need for glucose testing or medication after her delivery. Please obtain a 2-hour GTT directly while still hospitalized after delivery or 4-12 weeks out patient and then A1c yearly as the patient has a 20% risk of having or developing diabetes later on. 6. Follow-up appointment: In 4 weeks to Maternal- Medicine. I asked her to keep sending values to us weekly by e-mail to: [email or web address] or by fax to: [phone] TIME OF CONSULTATION: 15 minutes with the patient, >50% in discussion and counseling, coordination of care which was [id number], review of records and communication back to referring provider. HOWARD Whitman 03/30/25 1344 documented in this encounter Plan of Treatment Upcoming Encounters Date Type Department Care Team (Late st Contact Info) Description 04/14/2025 8:00 AM EDT Appointment Maternal Medicine [place] [address] [facility] [address] [place] [address] 04/25/2025 11:30 AM EDT Telemedicine Maternal- Medicine at [facility] [address] [place] [address] Devika Pulido PA-C [address] [address] documented as of this encounter Visit Diagnoses Diagnosis Insulin controlled gestational diabetes mellitus (GDM) in second trimester- Primary Recurrent major depressive disorder, in partial remission Prediabetes in mother during documented in this encounter Additional Health Concerns Assessment Noted Time PHQ-9 Depression Total Score: 2 07/03/20 16 9:00 AM EDT documented as of this encounter
--- OUTSIDE RECORDS SUMMARY | 2025-04-08 17:09 | XMS_ITS | Clinical Summary ---
Author Organization [facility] Address [address] [place] [address] Care Team Providers Care Medical Consultant Name Role Phone Unavailable Primary Care Provider Unavailabl e Encounters Date Type Department Care Team Description 02/08/2025 6:04 PM EDT - 02/08/2025 11:59 PM EDT Hospital Encounter [facility] [address] [place] [address] Discharge Disposition: Home or Self Care from [...] Cutoff Neural Tube Defects Risks 1:1030 < 1:28557 1:250 Comments: The risk of an open neural tube defect is less than the screening cut-off. This test was developed and its performance characteristics determined by [facility]. It has not been cleared or approved [...] LABORATORY Comment: (NOTE) Initial sample Performed By: [facility] [address] [place] [address] Front Office Help: Jose Joseph MD, PhD CLIA Number: [id number] 02/08/2025 6:07 PM EDT 02/08/2025 6:09 PM EDT Christy Schwartz PA-C CHEMISTRY ORDERABLES Final Resu lt [facility] [address] [place], [place] [address] [place] [address] [facility] [address] [phone] * Hepatitis C Antibody (12/23/2024 6:10 PM EST) Hepatitis C Ab NONREACTIVE NONREACTIVE 12/23/19 6:10 PM EST [facility] Comment: The hepatitis C procedure used in [...] ORDERABLES Fin al Result Performing Organization Address City/[facility]/ZIP Co de Phone Number [facility] [address] [place] [address], [facility] [phone] [facility] [address] [place] [address], [facility] [phone] * HIV Screen (12/23/2024 6:10 PM EST) HIV Ag/Ab NONREACTIVE NONREACTIVE 12/23/2024 6:10 PM EST [facility] Comment: No laboratory evidence of HIV infection. If acute HIV infection is suspected, consider testing for HIV-1 RNA. 12/23/2024 6:10 PM EST 12/23/2024 6:12 PM EST Cain Donaldson MD IMMUNOLOGY ORDERABLES Fin al Result Performing Organization Address [facility] Co de Phone Number [facility] [address] [place] [address], [facility] [phone] [facility] [address] [place] [address], [facility] [phone] from Last 3 Months or Most Recently Relevant to Health Maintenance Insurance
--- OUTSIDE RECORDS SUMMARY | 2025-04-08 17:10 | XMS_ITS | Encounter Summary ---
Author Organization [facility] Address [address] [place] [address] Care Team Providers Care Transit Mixer Operator Name Role Phone Unavailable Primary Care Provider Unavailabl e Encounter Details Date Type Department Care Team (Late Contact Info) Description 03/30/2025 Bamboo flowsheet [facility] [address] [place] [address] [place] [phone] Christy Schwartz PA [address] [place] [address] Dr [place], [id number] Social History Tobacco Use Types Packs/Day Years [...] AM EDT Routine [facility] [address] [facility] [place] [address] Cain Donaldson DO [address] [place] [address] [address] [place], [place] [phone] documented as of this encounter Goals Goal Patient Goal Type Associated Problems Recent Progress Patient-Stated? Author Reminders Care Plan OB Reminders No Open Scheduling, Background documented as of this encounter Visit Diagnoses Not on filedocumented in this encounter Additional Health Concerns Active Problems Noted Date Diagnosed Date OB Reminders 11/26/2024 documented as of this encounter
--- OUTSIDE RECORDS SUMMARY | 2025-04-08 17:10 | XMS_ITS | Encounter Summary ---
Author Organization [facility] Address [address] [place] [address] Care Team Providers Care Skidder Lever Operator Name Role Phone Unavailable Primary Care Provider Unavailabl e Encounter Details Date Type Department Care Team (Late Contact Info) Description 04/05/2025 Clinisync Result Encounter [facility] External Department Unsolicited Alfredo Donaldson, DO [address] [place] [address] Social History Tobacco Use Types Packs/Day Years [...] Routine [facility] [address] [place] [phone] Alfredo Donaldson DO [address] [place] [address] documented as of this encounter Goals Goal Patient Goal Type Associated Problems Recent Progress Patient-Stated? Author Reminders Care Plan OB Reminders No Open Scheduling, Background documented as of this encounter Procedures Procedure Name Priority Date/Time Associated Diagnosis Comments US OB BPP W NON-STRESS 04/05/2025 5:58 PM EDT documented in this encounter Results * US OB BPP W NON-STRESS (04/05/2025 5:58 PM EDT) Anatomical Region Laterality Modality Other 04/05/2025 5:58 PM EDT Narrative 04/05/2025 6:01 [place] [address] Ultrasound Report Signed Patient: FANNIE WHITE MR#: [id number] : 1995 Acct:[id number] Age/Sex: 29 / F ADM Date: 04/05/25 Loc: [facility] [address]: Belgica Scherer Ordering Physician: Alfredo Donaldson D.O. Date of Service: 04/05/25 Procedure(s): US OB BPP w non-stress Accession Number(s): [id number] cc: Alfredo Donaldson D.O. [place] [address] Patient Name: FANNIE WHITE MRN: [id number] date: 1995 Sex: F Assigned Patient Location: [facility] Current Patient Location: [facility] Accession/Order Number: [id number] Exam Date: 04/05/2025 17:57 Report Date: 04/05/2025 17:58 At the request of: ALFREDO DONALDSON DO Procedure: US OB BPP w non-stress Ultrasound biophysical profile HISTORY: Gestational diabetes Adequate breathing movement, gross body movement, tone and amniotic fluid volume for total score of 8 out of 8. The amniotic fluid index is 13.7cm within normal limits. The heart rate 125 bpm. US/US OB BPP w non-stress IMPRESSION: Adequate ultrasound biophysical profile Impression dictated by: Zion Steen M.D. 04/05/2025 5:58 PM Dictation Location: [place] [address] Electronically authenticated by: [id number] Y Date: 04/05/2025 17:58 Dictated By: Zion Steen D.O. Signed By: 04/05/251800 DD/ 57 TD/TT: Sas Programmer Remote: Procedure Note Radiology, Radiologist, - 04/05/2025 [place] [address] Ultrasound Report Signed Patient: FANNIE WHITEMR#: [id number] : 1995Acct:[id number] Age/Sex: 29 / FADM Date: 04/05/25 Loc: [facility] 250-[address]: Belgica Scherer Ordering Physician: Alfredo Donaldson D.O. Date of Service: 04/05/25 Procedure(s): US OB BPP w non-stress Accession Number(s): [id number] cc: Alfredo Donaldson D.O. The [place] [address] Patient Name: FANNIE WHITE MRN: [facility]:[id number] date: 1995 Sex: F Assigned Patient Location: [facility] Current Patient Location: [facility] Accession/Order Number: [id number] Exam Date: 04/05/2025 17:57 Report Date: 04/05/2025 17:58 At the request of: ALFREDO DONALDSON DO Procedure: US OB BPP w non-stress Ultrasound biophysical profile HISTORY: Gestational diabetes Adequate breathing movement, gross body movement, tone and amniotic fluid volume for total score of 8 out of 8. The amniotic fluidindex is 13.7cm within normal limits. The heart rate 125 bpm. US/US OB BPP w non-stress IMPRESSION: Adequate ultrasound biophysical profile Impression dictated by: Zion Steen M.D. 04/05/2025 5:58 PM Dictation Location[facility] Electronically authenticated by: [id number] Y Date: 7:58 Dictated By: Zion Steen D.O. Signed By:04/05/251800 DD/ 57 TD/TT: Sas Programmer Remote: us Alfredo Mendoza DO [facility] Final Result documented in this encounter Visit Diagnoses Not on filedocumented in this encounter Additional Health Concerns Active Problems Noted Date Diagnosed Date OB Reminders 11/26/2024 documented as of this encounter
--- OUTSIDE RECORDS SUMMARY | 2025-04-08 17:10 | XMS_ITS | Encounter Summary ---
Author Organization [facility] Address [address] [place] [address] Care Team Providers Care Mechanical Inspector Name Role Phone Unavailable Primary Care Provider Unavailabl e Encounter Details Date Type Department Care Team (Late Contact Info) Description 01/10/2025 Abstract [facility] [address] [facility] [place] [phone] Cain Donaldson DO [address] [place] [address] [address] [place], [place] [phone] Social History Tobacco Use Types Packs/Day Years [...] AM EDT Routine [facility] [address] [facility] [place] [phone] Cain Donaldson DO [facility] [address] [place], [place] [address] documented as of this encounter Goals Goal Patient Goal Type Associated Problems Recent Progress Patient-Stated? Author Reminders Care Plan OB Reminders No Open Scheduling, Background documented as of this encounter Visit Diagnoses Not on filedocumented in this encounter Additional Health Concerns Active Problems Noted Date Diagnosed Date OB Reminders 11/26/2024 documented as of this encounter
--- OUTSIDE RECORDS SUMMARY | 2025-04-08 17:10 | XMS_ITS | Encounter Summary ---
Author Organization [facility] Address [address] [place] [address] Care Team Providers Care Clinical Project Manager Name Role Phone Unavailable Primary Care Provider Unavailabl e Encounter Details Date Type Department Care Team (Late Contact Info) Description 12/27/2024 Abstract [facility] [address] [facility] [place] [phone] Cain Donaldson DO [address] [place] [address] Kar[place], [place] [phone] Social History Tobacco Use Types Packs/Day Years [...] AM EDT Routine [facility] OB [address] [facility] [place] [phone] Cain Donaldson DO [facility] [address] [place], [place] [phone] documented as of this encounter Goals Goal Patient Goal Type Associated Problems Recent Progress Patient-Stated? Author Reminders Care Plan OB Reminders No Open Scheduling, Background documented as of this encounter Visit Diagnoses Not on filedocumented in this encounter Additional Health Concerns Active Problems Noted Date Diagnosed Date OB Reminders 11/26/2024 documented as of this encounter
--- OUTSIDE RECORDS SUMMARY | 2025-04-08 17:10 | XMS_ITS | Encounter Summary ---
Author Organization [facility] Address [address] [place] [address] Care Team Providers Care Office Clin Asst Name Role Phone Unavailable Primary Care Provider Unavailabl e Encounter Details Date Type Department Care Team (Late st Contact Info) Description 03/18/[address] [facility] [address] [place] [phone] Yue Dumont MA Social History Tobacco Use [...] Description 04/18/2025 10:10 AM EDT [facility] OB [address] [place] [address] [place] [phone] Cain Donaldson DO [address] [facility] [place] [address] documented as of this encounter Goals Goal Patient Goal Type Associated Problems Recent Progress Patient-Stated? Author Reminders Care Plan OB Reminders No Open Scheduling, Background documented as of this encounter Visit Diagnoses Not on filedocumented in this encounter Additional Health Concerns Active Problems Noted Date Diagnosed Date OB Reminders 11/26/2024 documented as of this encounter
--- OUTSIDE RECORDS SUMMARY | 2025-04-08 17:10 | XMS_ITS | Encounter Summary ---
Author Organization [facility] tem Address [id number] [address] [place] [address] Care Team Providers Care Tax Advisor Name Role Phone Unavailable Primary Care Provider [...] 04/14/2025 8:00 AM EDT Appointment Maternal Medicine [place] [address] [facility] [address] [place] [address] 04/25/2025 11:30 AM EDT Telemedicine Maternal- Medicine at [facility] [address] [place] [phone] Devika Pulido, JASON [address] [address] documented as of this encounter Visit Diagnoses Not on filedocumented in this encounter Additional Health Concerns Assessment Noted Time PHQ-9 Depression Total Score: 2 07/03/20 16 9:00 AM EDT documented as of this encounter
--- OUTSIDE RECORDS SUMMARY | 2025-04-08 17:10 | XMS_ITS | Encounter Summary ---
Author Organization [facility] tem Address [id number] [address] [place] [address] Care Team Providers Care Cheese Production Supervisor Name Role Phone Unavailable Primary Care Provider Unavailabl e Encounter Details Date Type Department Care Team (Late Contact Info) Description 12/30/2024 Orders Only Maternal- Medicine at [facility] [address] [place] [address] Ref Prov, [place] [address] Social History Tobacco Use Types Packs/Day Years [...] 04/14/2025 8:00 AM EDT Appointment Maternal Medicine [place] [address] [facility] 4 [place] [phone] 04/25/2025 11:30 AM EDT Telemedicine Maternal- Medicine at [facility] [address] [place] [phone] Devika Pulido, JASON [address] [address] documented as of this encounter Visit Diagnoses Not on filedocumented in this encounter Additional Health Concerns Assessment Noted Time PHQ-9 Depression Total Score: 2 07/03/20 16 9:00 AM EDT documented as of this encounter
--- OUTSIDE RECORDS SUMMARY | 2025-04-08 17:10 | XMS_ITS | Encounter Summary ---
Author Organization [facility] Address [address] [place] [address] Care Team Providers Care Still Operator Name Role Phone Unavailable Primary Care Provider Unavailabl e Encounter Details Date Type Department Care Team (Late Contact Info) Description 11/26/2024 Abstract [facility] [address] [facility] [place] [phone] Cain Donaldson DO [address] [place] [address] [place], [place] [phone] Social History Tobacco Use Types Packs/Day Years [...] Routine [facility] B[facility] OB [address] [facility] [place] [phone] Cain Donaldson DO [facility] [address] [place], [place] [phone] documented as of this encounter Goals Goal Patient Goal Type Associated Problems Recent Progress Patient-Stated? Author Reminders Care Plan OB Reminders No Open Scheduling, Background documented as of this encounter Visit Diagnoses Not on filedocumented in this encounter Additional Health Concerns Active Problems Noted Date Diagnosed Date OB Reminders 11/26/2024 documented as of this encounter
--- OUTSIDE RECORDS SUMMARY | 2025-04-08 17:10 | XMS_ITS | Encounter Summary ---
Author Organization [facility] tem Address [facility][id number] [address] [place] [address] Care Team Providers Care International Guest Coordinator Name Role Phone Unavailable Primary Care Provider Unavailabl e Encounter Details Date Type Department Care Team (Late st Contact Info) Description 01/27/2025 Orders Only [facility] [address] [place] [phone] Sintia Martinez, SURVEILLANCE INSPECTOR-COMPUTER ARCHITECT [address] [place] [address] Social History Tobacco Use Types Packs/Day Years [...] 04/14/2025 8:00 AM EDT Appointment Maternal Medicine [place] [address] [facility] [address] [place] [address] 04/25/2025 11:30 AM EDT Telemedicine Maternal- [facility] at [facility] [address] [place] [address] Devika Pulido, PA-C [address] [address] documented as of this encounter Visit Diagnoses Not on filedocumented in this encounter Additional Health Concerns Assessment Noted Time PHQ-9 Depression Total Score: 2 07/03/20 16 9:00 AM EDT documented as of this encounter
--- OUTSIDE RECORDS SUMMARY | 2025-04-08 17:10 | XMS_ITS | Encounter Summary ---
Author Organization [facility] Address [address] [place] [address] Care Team Providers Care Financial Planning Analyst Name Role Phone Unavailable Primary Care Provider Unavailabl e Encounter Details Date Type Department Care Team (Late Contact Info) Description 01/27/2025 Orders Only [facility] [address] [facility] [place] [place] [phone] Damaris Lopez LPN [address] [facility] [place] [address] Social History Tobacco Use Types Packs/Day Years [...] AM EDT Routine [facility] OB [address] [place] [phone] Cain Donaldson DO [address] [facility] [address] [place], [place] [phone] documented as of this encounter Goals Goal [...]
--- OUTSIDE RECORDS SUMMARY | 2025-04-08 17:10 | XMS_ITS | Encounter Summary ---
Author Organization [facility] Address [address] [place] [address] Care Team Providers Care Space Operations Name Role Phone Unavailable Primary Care Provider [...] AM EDT Routine [facility] OB [address] [facility] [place] [phone] Cain Donaldson, DO [address] [facility] [place] [address] documented as of this encounter Goals Goal Patient Goal Type Associated Problems Recent Progress Patient-Stated? Author Reminders Care Plan OB Reminders No Open Scheduling, Background documented as of this encounter Visit Diagnoses Not on filedocumented in this encounter Additional Health Concerns Active Problems Noted Date Diagnosed Date OB Reminders 11/26/2024 documented as of this encounter
--- OUTSIDE RECORDS SUMMARY | 2025-04-08 17:10 | XMS_ITS | Clinical Summary ---
Author Organization [facility] Address [address] [place] [place] [address] Care Team Providers Care Supply Chain Director Name Role Phone Unavailable Primary Care [...] Encounters Date Type Department Care Team Description 04/05/2025 Clinisync Result Encounter N[facility] External Department Unsolicited Alfredo Donaldson DO 03/30/2025 8:50 AM EDT Routine [facility] [address] [facility] [place] [address] Christy Schwartz PA Second trimester ; 27 weeks gestation of ; Gestational diabetes mellitus (GDM), antepartum, gestational diabetes method of control unspecified; Factor 5 Leiden mutation, heterozygous (CMS/HCC); Conceived by in vitro fertilization 03/30/2025 Bamboo flowsheet [facility] [address] [facility] [facility] [place] [address] Christy Schwartz PA 03/30/2025 Travel 03/18/2025 Abstract [facility] [address] [facility] [facility] [place] [address] Yue Dumont MA 03/03/2025 8:40 AM EDT Routine [facility] [address] [facility] [facility] [place] [address] Alfredo Donaldson DO 23 weeks gestation of ; Second trimester ; induced hypertension, antepartum; Insulin controlled gestational diabetes mellitus (GDM) during , antepartum 03/03/2025 Bamboo flowsheet [facility] [address] [place] [address] [place] [address] Alfredo Donaldson DO 03/02/2025 Travel 01/27/2025 Orders Only [facility] [address] [facility] [place] [address] Damaris Lopez LPN 01/20/2025 8:30 AM EDT Routine [facility] [address] [facility] [facility] [place] [address] Christy Schwartz PA Well woman exam with routine gynecological exam; 17 weeks gestation of ; Second trimester ; Exposure to STD; Vaginal discharge 01/20/2025 Clinisync Result Encounter [facility] External Department Unsolicited Christy Schwartz PA 01/20/2025 External Result Encounter NOMS External Department Unsolicited Christy Schwartz PA 01/20/2025 Bamboo flowsheet [facility] [address] [place] [phone] Christy Schwartz PA 01/19/2025 Travel 01/10/2025 Abstract [facility] [address] [place] [address] Alfredo Donaldson DO 01/07/2025 Telephone [facility] [address] [place] [address] Bee Parkinson LPN from Last 3 Months [...] Description 04/18/2025 10:10 AM EDT Routine [facility] [address] [place] [phone] Alfredo Donaldson, [address] [place], [place] [id number] Health Maintenance Due Date Last Done Comments HPV/Cotest 2023 Cervical Cancer Screening 01/21/2028 Pap Smear 01/21/2028 01/20/2025 Influenza Vaccine Completed 08/03/2024, 09/08/2023, 10/07/2022 Goals Goal Patient Goal Type Associated Problems Recent Progress Patient-Stated? Author Reminders Care Plan OB Reminders No Open Scheduling, Background Procedures Procedure Name Priority Date/Time Associated Diagnosis Comments US OB BPP W NON-STRESS 04/05/2025 5:58 PM EDT POCT URINALYSIS DIPSTICK Routine 03/03/2025 9:08 AM [...] EDT from Last 3 Months Results * US OB BPP W NON-STRESS (04/05/2025 5:58 PM EDT) Anatomical Region Laterality Modality Other 04/05/2025 5:58 PM EDT Narrative 04/05/2025 6:01 [place] [address] Ultrasound Report Signed Patient: KEVIN WHITE MR#: [id number] : 1995 Acct:[id number] Age/Sex: 29 / F ADM Date: 04/05/25 Loc: [place] [address]- Attending Dr: Belgica Scherer Ordering Physician: Alfredo Donaldson D.O. Date of Service: 04/05/25 Procedure(s): US OB BPP w non-stress Accession Number(s): [id number] cc: Alfredo Donaldson D.O. [address] [address] Patient Name: KEVIN WHITE MRN: [id number] date: 1995 Sex: F Assigned Patient Location: [facility] Current Patient Location: [facility] Accession/Order Number: [id number] Exam Date: 04/05/2025 17:57 Report Date: 04/05/2025 [...] Steen M.D. 04/05/2025 5:58 PM [facility] Electron[facility] authenticated by: [id number] Y Date: 04/05/2025 17:58 Dictated By: Zion Steen D.O. Signed By: 04/05/25 180 DD/ 1758 TD/TT: Shipping Assistant: Procedure Note Radiology, Radiologist, MD - 04/05/2025 [place] [address] Ultrasound Report Signed Patient: KEVIN WHITEMR#: [id number] : 1995Acct:[id number] Age/Sex: Date: 04/05/25 Loc: [place] [address]: Belgica Scherer Ordering Physician: Alfredo Donaldson D.O. Date of Service: 04/05/25 Procedure(s): US OB BPP w non-stress Accession Number(s): [id number] cc: Alfredo Donaldson D.O. [place] [address] Patient Name: KEVIN WHITE MRN: [id number] date: 1995 Sex: F Assigned Patient Location: [facility] Current Patient Location: [facility] Accession/Order Number: [id number] Exam Date: 04/05/2025 17:57 Report Date: 04/05/2025 [...] Steen M.D. 04/05/2025 5:58 PM Dictation Location: [facility] Electronically authenticated by: [id number] Y Date: 7:58 Dictated By: Zion Steen D.O. Signed By:04/05/25 1809 DD/ 175 TD/TT: Shipping Assistant: us Alferdo Mendoza DO [facility] Final Result * (ABNORMAL) POCT urinalysis dipstick manually resulted [...] PM EDT THIS EXAM WAS PERFORMED AT [facility] NAME: CINDY GRECO : 1995 SEX: F Accession Number: [id number] ORDERING PHYSICIAN: JAIAD RITTER REFERRING PHYSICIAN: ALFREDO DONALDSON Coding ----- --------- Procedures 73500: Ultrasound, uterus, real time with image documentation, and maternal evaluation plus detailed anatomic examination, transabdominal approach;single or first gestation 92558: Transvaginal Ultrasound (OB) 11221: Echocardiography, , cardiovascular system, real time with image documentation (2D), with or without M-mode recording Indication ----- --------- Screening for Anatomic Survey, Screening for cervical length, Screening for congenital cardiac abnormality, resulting from assisted reproductive technology, Gestational diabetes, Obesity in , Depression, Supervision of high risk (LT Choroid plexus cyst) History ----- --------- OB History 2. Para 0 [id number] Maternal Assessment ----- --------- Physical Exam Height [...] 0 lb 14 oz EFW by Hadlock ([id number]) Head / Face / Neck Biometry: Cephalic index 0.69 <1% Nicolaides Fisher Eel Spear 6.4 mm CM 6.2 mm 82% Nicolaides [...] Thorax 4-chamber view. RVOT view. LVOT view. 6-vplffg-mwbcvnv view. Diaphragm. Abdomen Cord insertion. Spine: Cervical [...] suboptimal RVOT view suboptimal 3-vessel view normal 4-umqspk-zpieimd view suboptimal Aortic arch view normal Ductal [...] today's exam. Recommendations ----- --------- Please see [facility] documentation from today. The patient is scheduled [...] - 02/09/2025 THIS EXAM WAS PERFORMED AT [facility] NAME: CINDY GRECO : 1995 SEX: F Accession Number: [id number] ORDERING PHYSICIAN: JAIDA RITTER REFERRING PHYSICIAN: ALFREDO DONALDSON Coding ----- --------- Procedures 51484: Ultrasound, uterus, real time with imagedocumentation, and maternal evaluation plus detailed anatomic examination, transabdominalapproach;single or first gestation 46537: Transvaginal Ultrasound (OB) 06486: Echocardiography, , cardiovascular system, real timewith image documentation (2D), with or without M-mode recording Indication ----- --------- Screening for Anatomic Survey, Screening for cervical length, Screeningfor congenital cardiac abnormality, resulting from assisted reproductive technology, Gestational diabetes, Obesity inpregnancy, Depression, Supervision of high risk (LT Choroid plexus cyst) History ----- --------- OB History 2. Para 0 [id number] Maternal Assessment ----- --------- Physical Exam Height [...] 0 lb 14 oz EFW by Hadlock ([id number]) Head / Face / Neck Biometry: Cephalic index 0.69 <1% Nicolaides Fisher Eel Spear 6.4 mm CM 6.2 mm 82% Nicolaides [...] Thorax 4-chamber view. RVOT view. LVOT view. 0-wcylrw-orcwhdbmcfg. Diaphragm. Abdomen Cord insertion. Spine: Cervical spine. [...] suboptimal RVOT view suboptimal 3-vessel view normal 8-hjxheg-dopjonl view suboptimal Aortic arch view normal Ductal [...] today's exam. Recommendations ----- --------- Please see [facility] documentation from today. The patient is scheduled in four week(s) to complete anatomic survey andfetal echocardiogram. Subsequent follow up or other follow up as clinically determined byprimary OB provider unless otherwise specified by [facility]. Results forwarded to ordering provider so they can follow up with thepatient as necessary. The copy-to physician of this order is ALFREDO Palacios The ordering physician of this order is JAIDA Vicente us Alfredo Donaldson DO IMG OB US PROCEDURES Final Resul t * RECURRENT VAGINITIS (HTRX) (01/20/2025 9:56 AM EDT) [facility] ATOPOBIUM VAGINAE 0.000 19.961 - 24.689 ppm 01/21/2025 6:29 AM EDT [facility] ATOPOBIUM VAGINAE Not Detected 19.961 - 24.689 ppm 01/21/2025 6:29 AM EDT [facility] BVAB 2,3 (BACTERIAL VAGINOSIS ASSOCIATED BACTERIA 2, 3); MOBILUNCUS SPP 0.000 19.961 - 24.689 ppm 01/21/2025 6:29 AM EDT [facility] BVAB 2,3 (BACTERIAL VAGINOSIS ASSOCIATED BACTERIA 2, 3); MOBILUNCUS SPP Not Detected 19.961 - 24.689 ppm 01/21/2025 6:29 AM EDT [facility] DEAN ALBICANS, PARAPSILOSIS, TROPICALIS 0.000 19.961 - 30.770 ppm 01/21/2025 6:29 AM EDT [facility] DEAN ALBICANS, PARAPSILOSIS, TROPICALIS Not Detected 19.961 - 30.770 ppm 01/21/2025 6:29 AM EDT [facility] DEAN GLABRATA 0.000 23.000 - 32.138 ppm 01/21/2025 6:29 AM EDT [facility] [place] DEAN GLABRATA Not Detected 23.000 - 32.138 ppm 01/21/2025 6:29 AM EDT [facility] DEAN KRUSEI 0.000 23.000 - 32.271 ppm 01/21/2025 6:29 AM EDT [facility] DEAN KRUSEI Not Detected 23.000 - 32.271 ppm 01/21/2025 6:29 AM EDT [facility] CHLAMYDIA TRACHOMATIS 0.000 23.000 - 31.467 ppm 01/21/2025 6:29 AM EDT [facility] [place] [facility] CHLAMYDIA TRACHOMATIS Not Detected 23.000 - 31.467 ppm 01/21/2025 6:29 AM EDT [facility] GARDNERELLA VAGINALIS 0.000 19.961 - 24.689 ppm 01/21/2025 6:29 AM EDT [facility] [place] [facility] GARDNERELLA VAGINALIS Not Detected 19.961 - 24.689 ppm 01/21/2025 6:29 AM EDT [facility] MEGASPHAERA (TYPES 1, 2) 0.000 19.961 - 24.689 ppm 01/21/2025 6:29 AM EDT [facility] MEGASPHAERA (TYPES 1, 2) Not Detected 19.961 - 24.689 ppm 01/21/2025 6:29 AM EDT [facility] NEISSERIA GONORRHOEAE 0.000 23.000 - 32.117 ppm 01/21/2025 6:29 AM EDT [facility] NEISSERIA GONORRHOEAE Not Detected 23.000 - 32.117 ppm 01/21/2025 6:29 AM EDT [facility] TRICHOMONAS VAGINALIS 0.000 23.000 - 32.119 ppm 01/21/2025 6:29 AM EDT [facility] TRICHOMONAS VAGINALIS Not Detected 23.000 - 32.119 ppm 01/21/2025 6:29 AM EDT [facility] MYCOPLASMA GENITALIUM 0.000 19.961 - 24.689 ppm 01/21/2025 6:29 AM EDT [facility] MYCOPLASMA GENITALIUM Not Detected 19.961 - 24.689 ppm 01/21/2025 6:29 AM EDT [facility] Tissue 01/20/2025 9:56 AM EDT 01/21/2025 1:43 AM EDT us Christy Crescent PA LAB BLOOD ORDERABLES Final Resul t [facility] [employer] [facility] [address] [place] [place] [address] * IGP,APTIMA HPV,AGE GDLN (01/20/2025 8:29 AM EDT) AGE GDLN ACOG TESTING Note . [facility] Comment: TESTS RESULT FLAG UNITS REF RANGE LAB Clinician Provided Cytology Information Source.............Cervix Other.............. No. of containers..01 ThinPrep Vial Age Algo ACOG Joann... 30-65 01 FLAG LEGEND: L-Low Normal,H-High Normal,LL-Alert Low,HH-Alert High <-Panic Low,>-Panic High,A-Abnormal,AA-Critical Abnormal Performed at: 01 [address] [facility] [place] [address] Tessy Corea MD, IGP, APTIMA HPV, RFX 16/18,45 Note . [facility] Comment: TESTS RESULT FLAG UNITS REF RANGE LAB DIAGNOSIS: 02 NEGATIVE FOR INTRAEPITHELIAL LESION OR MALIGNANCY. Specimen adequacy: 02 Satisfactory for evaluation. No endocervical component is identified. Performed by: 02 Hannah Ambrose Gericare Aide Teacher ([facility]) . 02 Note: Note 02 The Pap [...] High <-Panic Low,>-Panic High,A-Abnormal,AA-Critical Abnormal Performed at: [address] [place] [address], [place] [address] Tessy Corea MD, HPV APTIMA Negative Negative [facility] Comment: This nucleic acid amplification test detects fourteen high- risk HPV types (16,18,31,33,35,39,45,51,52,56,58,59,66,68) without differentiation. Performed at: =[address], [place] [id number] Survey Researcher: Tessy Corea MD, Phone: [phone] Performed at: [address] [id number] Survey Researcher: Tessy Corea MD, Phone: [phone] 01/20/2025 8:29 AM EDT 01/20/2025 12:46 PM EDT Narrative [facility] - 01/24/2025 11:08 AM EDT SPATULA-ALONE CERVIX us Christy Schwartz PA LAB BLOOD ORDERABLES Final Resul t [facility] * Pap Smear (01/20/2025 12:00 AM EDT) Swab Cervical swab / Unknown us [facility] Mendoza Nurse LAB CYTOLOGY ORDERABLES Final Result EXTERNAL LAB from Last 3 Months Additional Health Concerns Active Problems Noted Date Diagnosed Date OB Reminders 11/26/2024 Insurance [facility]
--- OUTSIDE RECORDS SUMMARY | 2025-04-08 17:10 | XMS_ITS | Encounter Summary ---
Author Organization [facility] Address [address] [place] [place] [address] Care Team Providers Care Senior Net Application Developer Name Role Phone Unavailable Primary Care Provider Unavailabl e Encounter Details Date Type Department Care Team (Late Contact Info) Description 12/24/2024 Abstract [facility] [address] [facility] [place] [address] Cain Donaldson DO [address] [place] [address] [place], [place] [id number] Social History Tobacco Use Types Packs/Day Years [...] Routine [facility] [address] [facility] [place] [address] Cain Donaldson DO [facility] [address] [place], [place] [phone] documented as of this encounter Goals Goal Patient Goal Type Associated Problems Recent Progress Patient-Stated? Author Reminders Care Plan OB Reminders No Open Scheduling, Background documented as of this encounter Visit Diagnoses Not on filedocumented in this encounter Additional Health Concerns Active Problems Noted Date Diagnosed Date OB Reminders 11/26/2024 documented as of this encounter
--- OUTSIDE RECORDS SUMMARY | 2025-04-08 17:10 | XMS_ITS | Encounter Summary ---
Author Organization [facility] tem Address [id number] [address] [place] [address] Care Team Providers Care Financial Administrator Name Role Phone Unavailable Primary Care Provider Unavailabl e Encounter Details Date Type Department Care Team (Late st Contact Info) Description 02/17/2025 Orders Only Maternal- Medicine at [facility] [address] [place] [phone] Christy Prado LPN Insulin controlled gestational diabetes mellitus (GDM) in second trimester; Prediabetes in mother during ; 20 weeks gestation of ; Choroid plexus cyst of fetus affecting care of mother, antepartum, single or unspecified fetus; Heterozygous factor V Leiden affecting in second trimester, antepartum; Severe obesity due to excess calories affecting , antepartum ([facility]); Bipolar disorder, in full remission, most recent [...] 04/14/2025 8:00 AM EDT Appointment Maternal Medicine [place] [address] [facility] [address] [place] [phone] 04/25/2025 11:30 AM EDT Telemedicine Maternal- Medicine at [facility] [address] [place] [phone] Devika Pulido PA-C [address] [address] documented as of this encounter Procedures Procedure [...] due to excess calories affecting , antepartum ([facility]) Bipolar disorder, in full remission, most [...] due to excess calories affecting , antepartum ([facility]) Bipolar disorder, in full remission, most recent episode depressed documented in this encounter Additional Health Concerns Assessment Noted Time PHQ-9 Depression Total Score: 2 07/03/20 16 9:00 AM EDT documented as of this encounter
--- OUTSIDE RECORDS SUMMARY | 2025-04-08 17:10 | XMS_ITS | Encounter Summary ---
Author Organization [facility] Address [address] [place] [address] Care Team Providers Care Advanced Manufacturing Vice President Name Role Phone Unavailable Primary Care Provider Unavailabl e Encounter Details Date Type Department Care Team (Late st Contact Info) Description 11/12/2024 Abstract [facility] OB [address] [facility] [phone] Cain Donaldson DO [address] [place] [address] Karin [place], [facility] Social History Tobacco Use Types Packs/Day [...] AM EDT Routine [facility] [address] [facility] [place] [phone] Cain Donaldson, [facility] [place] [address] documented as of this encounter Visit Diagnoses Not on filedocumented in this encounter
--- OUTSIDE RECORDS SUMMARY | 2025-04-08 17:16 | XMS_ITS | CCD ---
Author Organization [facility] Care Team Providers Care Propeller Inspector Name Role Phone Unavailable Primary Care Provider Unavailabl e NO FAMILY, PHYSICIAN Primary Care Provider Unava LINDSAY Duckworth Attending Provider Renita Fu Attending Unavailable Renita Fu Admitting Unavailable NO FAMILY, PHYSICIAN Primary Care Unavailable Unavailable Primary Care Provider Unavailabl e Unavailable Primary Care Provider Unavailabl e Unavailable Primary Care Provider Unavailabl e Unavailable Primary Care Provider Unavailabl e JOSE PENA Referring Unavailable ZOLTON, JOSE Peterson Referring Unavailable [...] UA Negative Negative - 4(70) +++ mg/dL [facility] Blood, UA Negative Negative - 50 Warren/mcL [facility] Clarity, UA Clear [facility] Color, UA Yellow [facility] Glucose, UA Negative Negative - 2000(110) ++++ mg/dL [facility] Interpretation and review of laboratory results Abnormal [facility] Ketones, UA Negative Negative - 160(16) ++++ mg/dL [facility] Leukocytes, UA Trace Negative - 500+++ Malick/mcL [facility] Nitrite, UA Negative Negative - Positive [facility] pH, UA 7 5 - 9 [facility] Protein, UA Negative Negative - 2000(20) ++++ mg/dL [facility] Spec Grav, UA 1.015 1 - 1.03 [facility] Urobilinogen, UA 0.2 0.2 - 12 mg/dL [facility] AFP, Maternalon 02-11-2025 Determined by Other [facility] Comment on above: Performed By: #### A AFPM #### [facility] [address] [place] [address] Life Coach: Kenneth Krishna MD Due Date SEE NOTE [facility] Comment on above: Result Comment: Resu lts for Estimated Due Date: 06 24 25 Performed By: #### A AFPM #### [facility] [address] [place] [address] Life Coach: Kneneth Krishna MD Family History No [facility] Comment on above: Performed By: #### A AFPM #### [facility] [address] [place] [address] Life Coach: Kenneth Krishna MD Gestat Age (exact) 20 wks, 4 days Normal [facility] Comment on above: Performed By: #### A AFPM #### [facility] [address] [place] [address] Life Coach: Kenneth Krishna MD Ins Req Matern Diab No [facility] Comment on above: Performed By: #### A AFPM #### [facility] [address] [place] [address] Life Coach: Kenneth Krishna MD Interpretation Screen Neg [facility] Comment on above: Result Comment: (NOT E) INTERPRETATION: SCREEN NEGATIVE for open spina bifida Neural Tube Defects (NTD) Negative Pre-Test Post-Test Cutoff Neural Tube Defects Risks 1:1030 < 1:02668 1:250 Comments: The risk of an open neural tube defect is less than the screening cut-off. This test was developed and its performance characteristics determined by [facility]. It has not been cleared or approved by the [place] Food and Drug Administration. This test was performed in a CLIA certified laboratory and is intended for clinical purposes. Performed By: #### A AFPM #### [facility] [address] [place] [address] Life Coach: Kenneth Krishna MD [age] [facility] Comment on above: Performed By: #### A AFPM #### [facility] [address] [place], [place] [id number] Life Coach: Kenneth Krishna MD Maternal Race Nonblack [facility] Comment on above: Performed By: #### A AFPM #### [facility] [address] [place], [place] [id number] Life Coach: Kenneth Krishna MD Maternal Weight 231.0 lbs. [facility] Comment on above: Performed By: #### A AFPM #### [facility] [address] [place], [place] [id number] Life Coach: Kenneth Krishna MD MoM for AFP 0.85 [facility] Comment on above: Performed By: #### A AFPM #### [facility] [address] [place], [place] [id number] Life Coach: Kenneth Krishna MD Number of Fetuses [place] [facility] Comment on above: Performed By: #### A AFPM #### [facility] [address] [place], [place] [id number] Life Coach: Kenneth Krishna MD Patient's AFP 41 ng/mL [facility] Comment on above: Performed By: #### A AFPM #### [facility] [address] [place], [place] [id number] Life Coach: Kenneth Krishna MD Smoking No [facility] Comment on above: Performed By: #### A AFPM #### [facility] [address] [place], [place] [id number] Life Coach: Kenneth Krishna MD Specimen See Note [facility] Comment on above: Result Comment: (NOT E) Initial sample Performed By: [facility] [address] [place] [address] School Lunch Monitor: Jose Joseph MD, PhD CLIA Number: [id number] Performed By: #### A AFPM #### [facility] [address] [place] [address] Life Coach: Kenneth Krishna MD Urinalysis macro (dipstick) panel (U)on 01-20-2025 Bilirubin, UA Negative Negative - 4(70) +++ mg/dL [facility] Blood, UA Negative Negative - 50 Warren/mcL [facility] Comment on above: trace Clarity, UA Clear [facility] Color, UA Renita [facility] Glucose, UA Negative Negative - 2000(110) ++++ mg/dL [facility] Interpretation and review of laboratory results Abnormal [facility] Ketones, UA Positive Negative - 160(16) ++++ mg/dL [facility] Leukocytes, UA Trace Negative - 500+++ Malick/mcL [facility] Nitrite, UA Negative Negative - Positive [facility] pH, UA 7 5 - 9 [facility] Protein, UA Trace Negative - 2000(20) ++++ mg/dL [facility] Spec Grav, UA 1.02 1 - 1.03 [facility] Urobilinogen, UA 1.0 0.2 - 12 mg/dL [facility] Cult,Urineon 12-24-2024 Cult,Urine Specimen Description .URINE Culture NO GROWTH Report Status FINAL 12/24/2024 Normal [facility] Comment on above: Performed By: #### U RC #### [facility] [address] [place] [address] [id number] Life Coach: Jason Rodriguez MD [facility] [address] [place] [address] Life Coach: Sherwin Elam MD HIV Ag/Abon 12-24-2024 HIV Ag/Ab Non-Reactive Normal NR [facility] Comment on above: Result Comment: No l aboratory evidence of HIV infection. If acute HIV infection is suspected, consider testing for HIV-1 RNA. Performed By: #### R UBI, HBS, TREP, AHCV, HIVCMB, GLYHGB #### [facility] [place] [address] Life Coach: Jason Rodriguez MD #### CDP, SIDNEY #### [facility] [address] [place], [place] [id number] Life Coach: Sherwin Elam MD Hemoglobin A1Con 12-24-2024 Glucose [Mass/Vol] 94 mg/dL Normal [facility] Comment on above: Result Comment: The ADA and AACC recommend providing the estimated average glucose result to permit better patient understanding of their HBA1c result. Performed By: #### R UBI, HBS, TREP, AHCV, HIVCMB, GLYHGB #### [address] [id number] Life Coach: Jason Rodriguez MD #### KARRI, SIDNEY #### [facility] [address] [place], [place] [id number] Life Coach: Sherwin Elam MD HbA1c (Bld) [Mass fraction] 4.9 % Normal 4.0-6.0 [facility] Comment on above: Performed By: #### R UBI, HBS, TREP, AHCV, HIVCMB, GLYHGB #### [address] [id number] Life Coach: Jason Rodriguez MD #### KARRI, SIDNEY #### [facility] [address] [place], [place] [id number] Life Coach: Sherwin Elam MD Hep B Surf Agon 12-24-2024 Hep B Surf Ag Non-Reactive Normal NR [facility] Comment on above: Performed By: #### R UBI, HBS, TREP, AHCV, HIVCMB, GLYHGB #### [address] [id number] Life Coach: Jason Rodriguez MD #### KARRI, SIDNEY #### [facility] [address] [place], [place] [id number] Life Coach: Sherwin Elam MD Hep C Abon 12-24-2024 Hep C Ab Non-Reactive Normal NR [facility] Comment on above: Result Comment: The hepatitis [...] UBI, HBS, TREP, AHCV, HIVCMB, GLYHGB #### [address] [id number] Life Coach: Jason Rodriguez MD #### MARICHUY ZENGU #### [facility] [address] [place] [address] Life Coach: Sherwin Elam MD Rubella Ab, IgGon 12-24-2024 Rubella Ab, IgG 78.0 IU/mL Normal [facility] Comment on above: Result Comment: <10 NON REACTIVE Negative for Anti-Rubella IgG >=10 REACTIVE Positive for Anti Rubella IgG The presence of IgG antibody to Rubella virus is an indication of previous exposure either by prior infection or vaccination. Performed By: #### R UBI, HBS, TREP, AHCV, HIVCMB, GLYHGB #### [address] [id number] Life Coach: Jason Rodriguez MD #### KARRI, SIDNEY #### [facility] [address] [place] [address] Life Coach: Sherwin Elam MD T.pallidum Ab Screenon 12-24 T.pallidum Ab Screen Non-Reactive Normal [facility] Comment on above: Result Comment: T. pallidum antibodies are not detected. There is no serological evidence of infection with T. pallidum (early primary syphilis cannot be excluded). Retest in 2-4 weeks if syphilis is clinically suspect. Performed By: #### R UBI, HBS, TREP, AHCV, HIVCMB, GLYHGB #### [address] [place] [address] Life Coach: Jason Rodriguez MD #### CDPSIDNEY #### [facility] [address] [place] [address] Life Coach: Sherwin Elam MD CBC with Auto Differentialon 12-23-2024 Basophils (Bld) [#/Vol] 0.02 10*3/uL [facility] Basophils/100 WBC (Bld) 0 % 0 - 2 % [facility] Eosinophils (Bld) [#/Vol] 0.13 10*3/uL [facility] Eosinophils/100 WBC (Bld) 2 % 0 - 5 % [facility] Erythrocyte distribution width (RBC) [Ratio] 12.5 % 12.1 - 15.2 % [facility] Hematocrit (Bld) [Volume fraction] 35.9 % Low 36.0 - 46.0 % [facility] Hemoglobin (Bld) [Mass/Vol] 12.5 g/dL 12.0 - 16.0 g/dL [facility] Immature granulocytes (Bld) [#/Vol] 0.02 10*3/uL [facility] Immature granulocytes/100 WBC (Bld) 0 % 0 - 5 % [facility] Interpretation and review of laboratory results Abnormal [facility] Lymphocytes/100 WBC (Bld) 21 % 15 - 40 % [facility] Lymphocytes/100 WBC (Bld) 1.55 % [facility] MCH (RBC) [Entitic mass] 29.6 pg 26.0 - 34.0 pg [facility] MCHC (RBC) [Mass/Vol] 34.8 g/dL 31.0 - 37.0 g/dL [facility] MCV (RBC) [Entitic vol] 84.9 fL 80.0 - 100.0 fL [facility] Monocytes/100 WBC (Bld) 9 % High 4 - 8 % [facility] Monocytes/100 WBC (Bld) 0.65 % [facility] Neutrophils/100 WBC (Bld) 68 % 47 - 75 % [facility] Platelet mean volume (Bld) [Entitic vol] 9.9 fL 6.0 - 12.0 fL [facility] Platelets (Bld) [#/Vol] 238 10*3/uL [facility] RBC (Bld) [#/Vol] 4.23 10*6/uL 4.00 - 5.2 0 m/uL [facility] Segmented neutrophils/100 WBC (Bld) 4.87 % [facility] WBC other (Bld) [#/Vol] 7.2 [facility] CBC with Diffon 12-23-2024 Abs. Basophil 0.02 k/uL Normal 0.00-0.20 [facility] Comment on above: Performed By: #### R UBI, HBS, TREP, AHCV, HIVCMB, GLYHGB #### [place] [id number] Life Coach: Jason Rodriguez MD #### SIDNEY ZENG #### [facility] [address] [place] [address] Life Coach: Sherwin Elam MD Abs.Imm.Granulocyte 0.02 k/uL Normal 0.00-0.30 [facility] Comment on above: Performed By: #### R UBI, HBS, TREP, AHCV, HIVCMB, GLYHGB #### [place] [id number] Life Coach: Jason Rodriguez MD #### SIDNEY ZENG #### [facility] [address] [place] [id number] Life Coach: Sherwin Elam MD Abs.Neutrophil (Seg) 4.87 k/uL Normal 2.5-7.0 [facility] Comment on above: Performed By: #### R UBI, HBS, TREP, AHCV, HIVCMB, GLYHGB #### [place] [id number] Life Coach: Jason Rodriguez MD #### CDP, SIDNEY #### [facility] [address] [place] [address] Life Coach: Sherwin Elam MD Basophils/100 WBC (Bld) 0 % Normal 0-2 [facility] Comment on above: Performed By: #### R UBI, HBS, TREP, AHCV, HIVCMB, GLYHGB #### [address] [id number] Life Coach: Jason Rodriguez MD #### CDP, SIDNEY #### [facility] [address] [place] [address] Life Coach: Sherwin Elam MD Eosinophils (Bld) [#/Vol] 0.13 10*3/uL Normal 0.00-0.40 [facility] Comment on above: Performed By: #### R UBI, HBS, TREP, AHCV, HIVCMB, GLYHGB #### [address] [id number] Life Coach: Jason Rodriguez MD #### KARRI, SIDNEY #### [facility] [address] [place] [address] Life Coach: Sherwin Elam MD Eosinophils/100 WBC (Bld) 2 % Normal 0-5 [facility] Comment on above: Performed By: #### R UBI, HBS, TREP, AHCV, HIVCMB, GLYHGB #### [address] [id number] Life Coach: Jason Rodriguez MD #### CDP, SIDNEY #### [facility] [address] [place] [address] Life Coach: Sherwin Elam MD Erythrocyte distribution width (RBC) [Ratio] 12.5 % Normal 12.1-15.2 [facility] Comment on above: Performed By: #### R UBI, HBS, TREP, AHCV, HIVCMB, GLYHGB #### [address] [id number] Life Coach: Jason Rodriguez MD #### KARRI, SIDNEY #### [facility] [address] [place], [place] [id number] Life Coach: Sherwin Elam MD Hematocrit (Bld) [Volume fraction] 35.9 % Low 36.0-46.0 [facility] Comment on above: Performed By: #### R UBI, HBS, TREP, AHCV, HIVCMB, GLYHGB #### [address] [id number] Life Coach: Jason Rodriguez MD #### KARRI, SIDNEY #### [facility] [address] [place] [address] Life Coach: Shrewin Elam MD Hemoglobin (Bld) [Mass/Vol] 12.5 g/dL Normal 12.0-16.0 [facility] Comment on above: Performed By: #### R UBI, HBS, TREP, AHCV, HIVCMB, GLYHGB #### [address] [id number] Life Coach: Jason Rodriguez MD #### KARRI, SIDNEY #### [facility] [address] [place], [place] [id number] Life Coach: Sherwin Elam MD Immature granulocytes/100 WBC (Bld) 0 % Normal 0-5 [facility] Comment on above: Performed By: #### R UBI, HBS, TREP, AHCV, HIVCMB, GLYHGB #### [address] [id number] Life Coach: Jason Rodriguez MD #### CDP, SIDNEY #### [facility] [address] [place] [address] Life Coach: Sherwin Elam MD Lymphocytes (Bld) [#/Vol] 1.55 10*3/uL Normal 1.00-4.80 [facility] Comment on above: Performed By: #### R UBI, HBS, TREP, AHCV, HIVCMB, GLYHGB #### [address] [id number] Life Coach: Jason Rodriguez MD #### CDP, SIDNEY #### [facility] [address] [place] [address] Life Coach: Sherwin Elam MD Lymphocytes/100 WBC (Bld) 21 % Normal 15-40 [facility] Comment on above: Performed By: #### R UBI, HBS, TREP, AHCV, HIVCMB, GLYHGB #### [address] [id number] Life Coach: Jason Rodriguez MD #### KARRI, SIDNEY #### [facility] [address] [place] [address] Life Coach: Sherwin Elam MD MCH (RBC) [Entitic mass] 29.6 pg Normal 26.0-34.0 [facility] Comment on above: Performed By: #### R UBI, HBS, TREP, AHCV, HIVCMB, GLYHGB #### [address] [id number] Life Coach: Jason Rodriguez MD #### CDP, SIDNEY #### [facility] [address] [place] [address] Life Coach: Sherwin Elam MD MCHC (RBC) [Mass/Vol] 34.8 g/dL Normal 31.0-37.0 [facility] Comment on above: Performed By: #### R UBI, HBS, TREP, AHCV, HIVCMB, GLYHGB #### [address] [place] [id number] Life Coach: Jason Rodriguez MD #### CDP, SIDNEY #### [facility] [address] [place], [place] [id number] Life Coach: Sherwin Elam MD MCV (RBC) [Entitic vol] 84.9 fL Normal 80.0-100.0 [facility] Comment on above: Performed By: #### R UBI, HBS, TREP, AHCV, HIVCMB, GLYHGB #### [address] [id number] Life Coach: Jason Rodriguez MD #### CDP, SIDNEY #### [facility] [address] [place], [place] [id number] Life Coach: Sherwin Elam MD Monocytes (Bld) [#/Vol] 0.65 10*3/uL Normal 0.00-1.00 [facility] Comment on above: Performed By: #### R UBI, HBS, TREP, AHCV, HIVCMB, GLYHGB #### [address] [id number] Life Coach: Jason Rodriguez MD #### CDP, SDINEY #### [facility] [address] [place], [place] [id number] Life Coach: Sherwin Elam MD Monocytes/100 WBC (Bld) 9 % High 4-8 [facility] Comment on above: Performed By: #### R UBI, HBS, TREP, AHCV, HIVCMB, GLYHGB #### [address] [id number] Life Coach: Jason Rodriguez MD #### CDP, SIDNEY #### [facility] [address] [place], [place] [id number] Life Coach: Sherwin Elam MD Neutrophil (Seg) 68 % Normal 47-75 [facility] Comment on above: Performed By: #### R UBI, HBS, TREP, AHCV, HIVCMB, GLYHGB #### [address] [id number] Life Coach: Jason Rodriguez MD #### CDP, SIDNEY #### [facility] [address] [place] [address] Life Coach: Sherwin Elam MD Platelet mean volume (Bld) [Entitic vol] 9.9 fL Normal 6.0-12.0 [facility] Comment on above: Performed By: #### R UBI, HBS, TREP, AHCV, HIVCMB, GLYHGB #### [address] [id number] Life Coach: Jason Rodriguez MD #### KARRI, SIDNEY #### [facility] [address] [place] [id number] ( Life Coach: Sherwin Elam MD Platelets (Bld) [#/Vol] 238 10*3/uL Normal 140-450 [facility] Comment on above: Performed By: #### R UBI, HBS, TREP, AHCV, HIVCMB, GLYHGB #### [address] [id number] Life Coach: Jason Rodriguez MD #### CDP, SIDNEY #### [facility] [address] [place] [id number] ( Life Coach: Sherwin Elam MD RBC (Bld) [#/Vol] 4.23 10*6/uL Normal 4.00-5.20 [facility] Comment on above: Performed By: #### R UBI, HBS, TREP, AHCV, HIVCMB, GLYHGB #### [address] [id number] Life Coach: Jason Rodriguez MD #### CDP, SIDNEY #### [facility] [address] [place], [place] [id number] Life Coach: Sherwin Elam MD WBC (Bld) [#/Vol] 7.2 10*3/uL Normal 3.5-11.0 [facility] Comment on above: Performed By: #### R UBI, HBS, TREP, AHCV, HIVCMB, GLYHGB #### [address] [id number] Life Coach: Jason Rodriguez MD #### CDP, SIDNEY #### [facility] [address] [place], [place] [id number] Life Coach: Sherwin Elam MD Drug Scr, Abuse, Uron 2024 Amphetamine(s),Ur Negative Normal NEG [facility] Comment on above: Result Comment: Cuto ff: 1000 ng/mL Performed By: #### R UBI, HBS, TREP, AHCV, HIVCMB, GLYHGB #### [address] [id number] Life Coach: Jason Rodriguez MD #### CDP, SIDNEY #### [facility] [address] [place], [place] [id number] Life Coach: Sherwin Elam MD Barbiturate(s),Ur Negative Normal NEG [facility] Comment on above: Result Comment: Cuto ff: 200 ng/ml Performed By: #### R UBI, HBS, TREP, AHCV, HIVCMB, GLYHGB #### [facility] [address] [place], [place] [id number] Life Coach: Jason Rodriguez MD #### CDP, SIDNEY #### [facility] [address] [place], [place] [id number] Life Coach: Sherwin Elam MD Benzodiazepine(s) Negative Normal NEG [facility] Comment on above: Result Comment: Cuto ff: 200 ng/ml Performed By: #### R UBI, HBS, TREP, AHCV, HIVCMB, GLYHGB #### [address] [address] Life Coach: Jason Rodriguez MD #### CDP, SIDNEY #### [facility] [address] [place], [place] [id number] Life Coach: Sherwin Elam MD Cannabinoid(s),Ur Negative Normal NEG [facility] Comment on above: Result Comment: Cuto ff: 50 ng/ml Performed By: #### R UBI, HBS, TREP, AHCV, HIVCMB, GLYHGB #### [address] [address] Life Coach: Jason Rodriguez MD #### CDP, SIDNEY #### [facility] [address] [place], [place] [id number] Life Coach: Sherwin Elam MD Fentanyl, Urine Negative Normal NEG [facility] Comment on above: Result Comment: Cuto ff: 5 ng/ml Performed By: #### R UBI, HBS, TREP, AHCV, HIVCMB, GLYHGB #### [address] [address] Life Coach: Jason Rodriguez MD #### CDP, SIDNEY #### [facility] [address] [place] [address] Life Coach: Sherwin Elam MD Methadone Ql (U) Negative Normal NEG [facility] Comment on above: Result Comment: Cuto ff: 300 ng/ml Performed By: #### R UBI, HBS, TREP, AHCV, HIVCMB, GLYHGB #### [address] [address] Life Coach: Jason Rodriguez MD #### CDP, SIDNEY #### [facility] [address] [place], [place] [id number] Life Coach: Sherwin Elam MD Opiate(s), Ur Negative Normal NEG [facility] Comment on above: Result Comment: Cuto ff: 300 ng/ml Performed By: #### R UBI, HBS, TREP, AHCV, HIVCMB, GLYHGB #### [address] [id number] Life Coach: Jason Rodriguez MD #### CDP, SIDNEY #### [facility] [address] [place], [place] [id number] Life Coach: Sherwin Elam MD Oxycodone, Urine Negative Normal NEG [facility] Comment on above: Result Comment: Cuto ff: 100 ng/ml Performed By: #### R UBI, HBS, TREP, AHCV, HIVCMB, GLYHGB #### [address] [address] Life Coach: Jason Rodriguez MD #### CDP, SIDNEY #### [facility] [address] [place], [place] [id number] Life Coach: Sherwin Elam MD Phencyclidine, Ur Negative Normal NEG [facility] Comment on above: Result Comment: Cuto ff: 25 ng/ml Performed By: #### R UBI, HBS, TREP, AHCV, HIVCMB, GLYHGB #### [address] [address] Life Coach: Jason Rodriguez MD #### CDP, SIDNEY #### [facility] [address] [place], [place] [id number] Life Coach: Sherwin Elam MD Interpretive Info This method is a screening test to detect only these drug classes as part of a Normal [facility] Comment on above: Result Comment: medi luis workup. Confirmatory testing by another method should be ordered if clinically indicated. Performed By: #### R UBI, HBS, TREP, AHCV, HIVCMB, GLYHGB #### [facility] [address] [place], [place] [id number] Life Coach: Jason Rodriguez MD #### CDP, SIDNEY #### [facility] [address] [place], [place] [id number] Life Coach: Sherwin Elam MD Drug Scr, Abuse, UrOrdered B y: Janay Vázquez on 12-23-2024 Cocaine Metabolite Negative Normal NEG [facility] Comment on above: Result Comment: Cuto ff: 300 ng/ml Performed By: #### R UBI, HBS, TREP, AHCV, HIVCMB, GLYHGB #### [facility] [address] [place], [place] [id number] Life Coach: Jason Rodriguez MD #### CDP, SIDNEY #### [facility] [address] [place] [address] Life Coach: Sherwin Elam MD Drug Screen, UrineOrdered By : Janay Vázquez on 12-23-2024 Amphetamine/Methamph etamine Negative [facility] Barbiturates Negative [facility] Benzodiazepines Negative [facility] Ecstasy Negative [facility] Methadone Negative [facility] Opiates Negative [facility] Oxycodone Negative [facility] Phencyclidine Negative [facility] Thc Marijuana, Urine Negative [facility] HIV 1&2 AB/AG Screen (P24 AG )on 12-23-2024 HIV 1&2 AB/AG Non-Reactive [facility] Hemoglobin A1con 12-23-2024 HbA1c (Bld) [Mass fraction] 4.9 % 4.0 - 6.0 % [facility] Hepatitis B surface antigeno n 12-23-2024 Hepatitis B Surface Antigen Non-Reactive [facility] Hepatitis C(HCV) Ab w/ Refle x to PCRon 12-23-2024 HCV Ab Ql (S) Non-Reactive [facility] MHPT CBC WITH DIFFon 02-20-2 025 Basophils/100 WBC (Bld) 0 % 0 - 2 % [facility] Eosinophils/100 WBC (Bld) 2 % 0 - 5 % [facility] Erythrocyte distribution width (RBC) [Ratio] 12.5 % 12.1 - 15.2 % [facility] Hematocrit (Bld) [Volume fraction] 35.9 % Low 36.0 - 46.0 % [facility] Hemoglobin (Bld) [Mass/Vol] 12.5 g/dL 12.0 - 16.0 g/dL [facility] Immature granulocytes/100 WBC (Bld) 0 % 0 - 5 % [facility] Interpretation and review of laboratory results Abnormal [facility] Lymphocytes/100 WBC (Bld) 21 % 15 - 40 % [facility] MCH (RBC) [Entitic mass] 29.6 pg 26.0 - 34.0 pg [facility] MCHC (RBC) [Mass/Vol] 34.8 g/dL 31.0 - 37.0 g/dL [facility] MCV (RBC) [Entitic vol] 84.9 fL 80.0 - 100.0 [facility] 0.02 [facility] EOSINOPHIL 0.13 [facility] LYMPH 1.55 [facility] MONOCYTE 0.65 [facility].IMM.GRANULOCYTE 0.02 [facility].NEUTROPHIL (SEG) 4.87 [facility] [facility] Monocytes/100 WBC (Bld) 9 % High 4 - 8 % [facility] Platelet mean volume (Bld) [Entitic vol] 9.9 fL 6.0 - 12.0 fL [facility] RBC (Bld) [#/Vol] 4.23 10*6/uL 4.00 - 5.2 0 m/uL [facility] Segmented neutrophils/100 WBC (Bld) 68 % 47 - 75 % [facility] Original Ordering Provider: CAIN LIPSCOMBISYVANESSA [facility], [facility] URon 0 12-23-2024 PT AMPHETAMINE(S),UR Negative NEG [facility] Comment on above: Cutoff: 1000 ng/mL [facility]PT BARBITURATE(S),UR Negative NEG [facility] Comment on above: Cutoff: 200 ng/ml MHPT BENZODIAZEPINE(S) Negative NEG [facility] Comment on above: Cutoff: 200 ng/ml [facility] CANNABINOID(S),UR Negative NEG [facility] Comment on above: Cutoff: 50 ng/ml [facility] COCAINE METABOLITE Negative NEG [facility] Comment on above: Cutoff: 300 ng/ml [facility] FENTANYL, URINE Negative NEG [facility] Comment on above: Cutoff: 5 ng/ml [facility] INTERPRETIVE INFO This method is a screening test to detect only these drug classes as part of a [facility] Healthcare Comment on above: medical workup. Conf irmatory testing by another method should be ordered if clinically indicated. [facility] METHADONE Negative NEG [facility] Comment on above: Cutoff: 300 ng/ml [facility]PT OPIATE(S), UR Negative NEG [facility] Comment on above: Cutoff: 300 ng/ml [facility] OXYCODONE, URINE Negative NEG [facility] Healthcare Comment on above: Cutoff: 100 ng/ml [facility]PT PHENCYCLIDINE, UR Negative NEG [facility] Comment on above: Cutoff: 25 ng/ml Original Ordering Provider: CAIN ADAN [facility] No Panel Informationon 12-23 [facility] TYPE AND SCREENon 0 12-23-2024 ABO and Rh group Nom (Bld) Blood group B Rh(D) positive [facility] Blood group antibodies identified Nom Negative [facility] Type + Scrnon 12-23 Type + Scrn Negative [facility] Comment on above: Performed By: #### R UBI, HBS, TREP, AHCV, HIVCMB, GLYHGB #### [facility] [employer] [address] [place] [address] Life Coach: Jason Rodriguez MD #### CDP, SIDNEY #### [facility] [address] [place] [address] Life Coach: Sherwin Elam MD Type and screenon 12-23-2024 Abo/Rh(D) Positive [facility] Urinalysis macro (dipstick) panel (U)on 12-23-2024 Bilirubin, UA Negative Negative - 4(70) +++ mg/dL [facility] Blood, UA Negative Negative - 50 Warren/mcL [facility] Clarity, UA Clear [facility] Color, UA Yellow [facility] Glucose, UA Negative Negative - 1999(110) ++++ mg/dL [facility] Interpretation and review of laboratory results Normal [facility] Ketones, UA Negative Negative - 160(16) ++++ mg/dL [facility] Leukocytes, UA Negative Negative - 500+++ Malick/mcL [facility] Nitrite, UA Negative Negative - Positive [facility] pH, UA 7 5 - 9 [facility] Protein, UA Negative Negative - 1999(20) ++++ mg/dL [facility] Spec Grav, UA 1.02 1 - 1.03 [facility] Urobilinogen, UA 1.0 0.2 - 12 mg/dL [facility] Urine Drug Screenon 12-23-19 25 Amphetamines Ql (U) Negative NEGATIVE [employer] [facility] Comment on above: Cutoff: 1000 ng/mL Barbiturates Screen Ql (U) Negative NEGATIVE [employer] [facility] Comment on above: Cutoff: 200 ng/ml Benzodiazepines Ql (U) Negative NEGATIVE [employer] [facility] Comment on above: Cutoff: 200 ng/ml Cannabinoids Screen Ql (U) Negative NEGATIVE [employer] [facility] Comment on above: Cutoff: 50 ng/ml Cocaine Ql (U) Negative NEGATIVE [facility] Comment on above: Cutoff: 300 ng/ml fentaNYL Ql (U) Negative NEGATIVE [facility] Comment on above: Cutoff: 5 ng/ml Methadone Ql (U) Negative NEGATIVE [facility] Comment on above: Cutoff: 300 ng/ml Opiates Screen Ql (U) Negative NEGATIVE [facility] Comment on above: Cutoff: 300 ng/ml oxyCODONE Ql (U) Negative NEGATIVE [employer] [facility] Comment on above: Cutoff: 100 ng/ml Phencyclidine Ql (U) Negative NEGATIVE [facility] Comment on above: Cutoff: 25 ng/ml Test Information This method is a screening test to detect only these drug classes as part of a medical workup. Confirmatory testing by another method should be ordered if clinically indicated. WO [employer] HCG ( test) Ql (U)o n 11-25-2024 Interpretation and review of laboratory results Abnormal [facility] Preg Test, Ur Positive Negative [facility] US OB TRANSVAGINALon 025 US OB TRANSVAGINAL [...] UA Negative Negative - 4(70) +++ mg/dL [facility] Blood, UA Negative Negative - 50 Warren/mcL [facility] Clarity, UA Clear [facility] Color, UA Yellow [facility] Glucose, UA Negative Negative - 1999(110) ++++ mg/dL [facility] Interpretation and review of laboratory results Normal [facility] Ketones, UA Negative Negative - 160(16) ++++ mg/dL [facility] Leukocytes, UA Negative Negative - 500+++ Malick/mcL [facility] Nitrite, UA Negative Negative - Positive [facility] pH, UA 6 5 - 9 [facility] Protein, UA Negative Negative - 2000(20) ++++ mg/dL [facility] Spec Grav, UA 1.02 1 - 1.03 [facility] Urobilinogen, UA 0.2 0.2 - 12 mg/dL [facility] HCG, Quanton 10-20-2024 HCG, Quant 812.4 mIU/mL High <5 [facility] Comment on above: Result Comment: Non-preg premeno <=5 Postmeno <=8 Male <=3 If HCG results do not concur with clinical observations, additional testing to confirm results is recommended. Performed By: #### R UBI, HBS, TREP, AHCV, HIVCMB, GLYHGB #### [facility] [employer] [address], [place] [id number] Life Coach: Jason Rodriguez MD #### KARRI, SIDNEY #### [facility] [address] [place] [address] Life Coach: Sherwin Elam MD HCG, Quantitative, on 10-20-2024 HCG.beta subunit Qn 812.4 m[IU]/mL High NINF B on [facility] Comment on above: Non-preg premeno <=5 Postmeno <=8 Male <=3 If HCG results do not concur with clinical observations, additional testing to confirm results is recommended. Interpretation and review of laboratory results Abnormal [facility] HCG, Quanton 10-18-2024 HCG, Quant 293.1 mIU/mL High <5 [facility] Comment on above: Result Comment: Non-preg premeno <=5 Postmeno <=8 Male <=3 If HCG results do not concur with clinical observations, additional testing to confirm results is recommended. Performed By: #### R UBI, HBS, TREP, AHCV, HIVCMB, GLYHGB #### [place] [id number] [place], [place] [id number] Life Coach: Jason Rodriguez MD #### KARRI, SIDNEY #### [facility] [address] [place] [address] Life Coach: Sherwin Elam MD HCG, Quantitative, on 10-18-2024 HCG.beta subunit Qn 293.1 m[IU]/mL High NINF B on [facility] Comment on above: Non-preg premeno <=5 Postmeno <=8 Male <=3 If HCG results do not concur with clinical observations, additional testing to confirm results is recommended. Interpretation and review of laboratory results Abnormal [facility] XR knee RT 4V*on 04-06-2024 XR knee RT 4V* [facility] [place] [address] [place] [address] XRay Report Signed Patient: Kevin Mckeon MR#: [id number] : 1995 Acct:[id number] Age/Sex: 28 / F ADM Date: 04/06/24 Loc: [id number] Room: Type: [facility] Attending Dr: Renita MONTOYA Copies to: UMM [...] Justina Munson M.D.04/06/2024 12:42 PM Dictation Location: [place] [address] Transcribed By: [facility] 04/06/24 1242 Dictated By: Justina Munson MD 04/06/24 1240 Signed By: 04/06/24 1242 Normal [facility] Estradiolon 04-15-2022 Estradiol 257.1 pg/mL 27 - 314 pg/mL [employer] Comment on above: FEMALES: Normally menstruating Luteal phase 33-298 Follicular phase 27-156 Midcycle phase 48-314 Postmenopausal (untreated) 5-50 Fulvestrant treatment will show an increased estradiol concentration with this methodology. Alternate methodologies are available upon request. No Panel Informationon 04-15 [facility] Progesteroneon 04-15-2022 Progesterone 39.8 ng/mL [facility] Comment on above: FEMALE (healthy): Follicular phase 0.06-0.89 Ovulation phase 0.12-12.00 Luteal phase 1.83-23.90 Postmenopausal <0.13 HCG, Quantitative, on 02-08-2022 hCG Quant <1 <5 mIU/mL [facility] Comment on above: Non-preg premeno <=5 Postmeno <=8 Male <=3 If HCG results do not concur with clinical observations, additional testing to confirm results is recommended. Elevated results not associated with may be found in patients with other diseases such as tumors of the germ cells (testis, ovaries, etc.), bladder, pancreas, stomach, lungs, and liver. [facility] TSHon 02-08-2022 TSH Qn 1.05 m[IU]/L [facility] Patient [employer] [facility] [employer] Estradiolon 01-14-2022 Estradiol 326 pg/mL High 27 - 314 pg/mL [facility] Comment on above: FEMALES: Normally menstruating Luteal phase 33-298 Follicular phase 27-156 Midcycle phase 48-314 Postmenopausal (untreated) 5-50 Fulvestrant treatment will show an increased estradiol concentration with this methodology. Alternate methodologies are available upon request. Interpretation and review of laboratory results Abnormal [facility] HCG, Quantitative, on 01-14-2022 hCG Quant <1 <5 IU/L [employer] Comment on above: Non-preg premeno <=5 Postmeno <=8 Male <=3 If HCG results do not concur with clinical observations, additional testing to confirm results is recommended. Elevated results not associated with may be found in patients with other diseases such as tumors of the germ cells (testis, ovaries, etc.), bladder, pancreas, stomach, lungs, and liver. [facility] No Panel Informationon 01-14 [facility] Progesteroneon 01-14-2022 Progesterone 47.49 ng/mL [facility] Comment on above: FEMALE (healthy): Follicular phase 0.06-0.89 Ovulation phase 0.12-12.00 Luteal phase 1.83-23.90 Postmenopausal <0.13 Estradiolon 01-08-2022 Estradiol 251 pg/mL 27 - 314 pg/mL [facility] Comment on above: FEMALES: Normally menstruating Luteal phase 33-298 Follicular phase 27-156 Midcycle phase 48-314 Postmenopausal (untreated) 5-50 Fulvestrant treatment will show an increased estradiol concentration with this methodology. Alternate methodologies are available upon request. No Panel Informationon 01-08 [facility] Progesteroneon 01-08-2022 Progesterone 50.58 ng/mL [facility] Comment on above: FEMALE (healthy): Follicular phase 0.06-0.89 Ovulation phase 0.12-12.00 Luteal phase 1.83-23.90 Postmenopausal <0.13 HCG, Quantitative, on 12-10-2021 hCG Quant <1 <5 IU/L [facility] Comment on above: Non-preg premeno <=5 Postmeno <=8 Male <=3 If HCG results do not concur with clinical observations, additional testing to confirm results is recommended. Elevated results not associated with may be found in patients with other diseases such as tumors of the germ cells (testis, ovaries, etc.), bladder, pancreas, stomach, lungs, and liver. [employer] Estradiolon 09-26-2021 Estradiol 434 pg/mL High 27 - 314 pg/mL [facility] Comment on above: FEMALES: Normally menstruating Luteal phase 33-298 Follicular phase 27-156 Midcycle phase 48-314 Postmenopausal (untreated) 5-50 Fulvestrant treatment will show an increased estradiol concentration with this methodology. Alternate methodologies are available upon request. Interpretation and review of laboratory results Abnormal [employer] HCG, Quantitative, on 09-26-2021 hCG Quant 652 High <5 IU/L [employer] Comment on above: Non-preg premeno <=5 Postmeno <=8 Male <=3 If HCG results do not concur with clinical observations, additional testing to confirm results is recommended. Elevated results not associated with may be found in patients with other diseases such as tumors of the germ cells (testis, ovaries, etc.), bladder, pancreas, stomach, lungs, and liver. Interpretation and review of laboratory results Abnormal [employer] No Panel Informationon 09-26 [facility] Progesteroneon 09-26-2021 Progesterone 45.63 ng/mL [facility] Comment on above: FEMALE (healthy): Follicular phase 0.06-0.89 Ovulation phase 0.12-12.00 Luteal phase 1.83-23.90 Postmenopausal <0.13 Estradiolon 09-17-2021 Estradiol 389 pg/mL High 27 - 314 pg/mL [facility] Comment on above: FEMALES: Normally menstruating Luteal phase 33-298 Follicular phase 27-156 Midcycle phase 48-314 Postmenopausal (untreated) 5-50 Fulvestrant treatment will show an increased estradiol concentration with this methodology. Alternate methodologies are available upon request. Interpretation and review of laboratory results Abnormal [employer] No Panel Informationon 09-17 [facility] Progesteroneon 09-17-2021 Progesterone 15.02 ng/mL [employer] Comment on above: FEMALE (healthy): Follicular phase 0.06-0.89 Ovulation phase 0.12-12.00 Luteal phase 1.83-23.90 Postmenopausal <0.13 TSH without ReflexOrdered By : Pedro Luis Dorantes on 06-25-2021 TSH Qn 1.08 m[IU]/L [employer] Phone: [employer] Phone: HCG, Quantitative, on 02-15-2021 hCG Quant <1 <5 IU/L [employer] Phone: Comment on above: Non-preg premeno <=5 [...] Estradiol 66 pg/mL 27 - 314 pg/mL [employer] Phone: Comment on above: FEMALES: Normally menstruating Luteal phase 33-298 Follicular phase 27-156 Midcycle phase 48-314 Postmenopausal (untreated) 5-50 Fulvestrant treatment will show an increased estradiol concentration with this methodology. Alternate methodologies are available upon request. Follicle Stimulating Hormone on 01-12-2021 FSH 5.3 U/L 1.7 - 21.5 U/L [employer] Phone: Comment on above: Reference Range: Male: 1.5-12.4 Ovulating Female: Follicular Phase 3.5-12.5 Ovulation Phase 4.7-21.5 Luteal Phase 1.7-7.7 Postmenopausal Female: 25.8-134.8 HIV Screenon 01-12-2021 HIV Ag/Ab NONREACTIVE NONREACTIVE [employer] Work Phone: Comment on above: No laboratory eviden ce of HIV infection. If acute HIV infection is suspected, consider testing for HIV-1 RNA. Hepatitis B Core Antibody, T otalon 01-12-2021 Hep B Core Total Ab NONREACTIVE NONREACTIVE [facility] [employer] Work Phone: Hepatitis B Surface Antigeno n 01-12-2021 Hepatitis B Surface Ag NONREACTIVE NONREACTIVE [employer] Work Phone: Hepatitis C Antibodyon 01-12 Hepatitis C Ab NONREACTIVE NONREACTIVE [facility] Work Phone: Comment on above: The hepatitis [...] LH 10.8 U/L 1.0 - 95.6 U/L Amanda Huff DBA [employer] Work Phone: Comment on above: Reference Range: Male: 1.7-8.6 Ovulating Female: Follicular Phase 2.4-12.6 Ovulation Phase 14.0-95.6 Luteal Phase 1.0-11.4 Postmenopausal Female: 7.7-58.5 Progesteroneon 01-12-2021 Progesterone 0.13 ng/mL [employer] Phone: Comment on above: FEMALE (healthy): Follicular phase 0.06-0.89 Ovulation phase 0.12-12.00 Luteal phase 1.83-23.90 Postmenopausal <0.13 Prolactinon 01-12-2021 Prolactin 7.58 ug/L 4.79 - 23.30 ug/L [employer] Phone: Comment on above: The presence of macr oprolactin may cause interference in female patients with various endocrinological diseases or during . Rubella antibody, IgGon 01-01 Rubella virus IgG Ql (S) 52.4 IU/mL [employer] Phone: Comment on above: REFERENCE RANGE: <5.0 NON-REACTIVE (non-immune) 5.0 TO 9.9 EQUIVOCAL >=10.0 REACTIVE (immune) HCG, Quantitative, on 01-11-2021 hCG Quant <1 <5 IU/L [employer] Phone: Comment on above: Non-preg premeno <=5 [...] without Reflexon 021 TSH Qn 1.08 m[IU]/L [employer] Phone: TYPE AND SCREENon 01-11-2021 ABO/Rh Positive [facility] Phone: Arm Band Number NOT REPORTED [employer] Work Phone: Expiration Date 01/14/2021,2359 [employer] Phone: Vital Signs Date Time Vital Sign Value Performing Clinician Facility 03-30-2025 09:26-0400 Body weight 103.87 kg Christy MCKOY Work Phone: [facility] 03-30-2025 09:26-0400 Diastolic blood pressure 80 mm[Hg] Christy MCKOY Work Phone: [facility] 03-30-2025 09:26-0400 Systolic blood pressure 122 mm[Hg] Christy MCKOY Work Phone: [facility] 03-03-2025 09:00-0400 Body weight 105.14 kg [employer] Work Phone: [facility] [employer] 03-03-2025 09:00-0400 Diastolic blood pressure 80 mm[Hg] Cain Mendoza [employer] Work Phone: [facility] 03-03-2025 09:00-0400 Systolic blood pressure 120 mm[Hg] Cain Donaldson DO Work Phone: [facility] 02-08-2025 09:34-0400 Body height 157.5 cm Jaida Chadwick MD Work Phone: [facility] 02-08-2025 09:34-0400 Body mass index (BMI) [Ratio] 42.24 kg/m2 Jaida Chadwick MD Work Phone: [facility] 02-08-2025 09:34-0400 Body weight 104.78 kg Jaida Chadwick MD Work Phone: [facility] 02-08-2025 09:34-0400 Diastolic blood pressure 80 mm[Hg] Jaida Chadwick MD Work Phone: [facility] 02-08-2025 09:34-0400 Heart rate 95 /min Jaida Chadwick MD Work Phone: [facility] 02-08-2025 09:34-0400 Systolic blood pressure 125 mm[Hg] Jaida Chadwick MD Work Phone: [facility] 01-26-2025 14:44-0400 Body height 157.5 cm Apollo Sandoval MANAGER LOCAL-MAINTENANCE AIDE Work Phone: [facility] 01-26-2025 14:44-0400 Body mass index (BMI) [Ratio] 41.88 kg/m2 Apollo Sandoval MANAGER LOCAL-MAINTENANCE AIDE Work Phone: [facility] 01-26-2025 14:44-0400 Body weight 103.87 kg Apollo Sandoval MANAGER LOCAL-MAINTENANCE AIDE Work Phone: [facility] 01-26-2025 14:44-0400 Diastolic blood pressure 60 mm[Hg] Apollo Sandoval MANAGER LOCAL-MAINTENANCE AIDE Work Phone: [facility] 01-26-2025 14:44-0400 Heart rate 87 /min Apollo Sandoval MANAGER LOCAL-MAINTENANCE AIDE Work Phone: [facility] 01-26-2025 14:44-0400 Systolic blood pressure 115 mm[Hg] Apollo Michelle GIRALDOMAINTENANCE AIDE Work Phone: [facility] 01-26-2025 14:25-0400 Body mass index (BMI) [Ratio] 41.87 kg/m2 [facility] 01-26-2025 14:25-0400 Body weight 103.87 kg [facility] 01-20-2025 08:42-0400 Body weight 103.87 kg Christy MCKOY Work Phone: [facility] 01-20-2025 08:42-0400 Diastolic blood pressure 70 mm[Hg] Christy MCKOY Work Phone: [facility] 01-20-2025 08:42-0400 Systolic blood pressure 120 mm[Hg] Christy MCKOY Work Phone: [facility] 12-30-2024 10:57-0500 Body height 157.5 cm Jaida Chadwick MD Work Phone: [facility] 11-25-2024 15:25-0500 Body weight 105.23 kg Noms Nurse [facility] 11-25-2024 15:25-0500 Diastolic blood pressure 72 mm[Hg] Noms Nurse [facility] 11-25-2024 15:25-0500 Systolic blood pressure 124 mm[Hg] Noms Nurse [facility] 04-06-2024 12:06-0400 Body height 157.48 cm PHYSICIAN NO [facility] 04-06-2024 12:06-0400 Body mass index (BMI) [Ratio] 42 kg/m2 PHYSICIAN NO [facility] 04-06-2024 12:06-0400 Body weight 104.32 kg PHYSICIAN NO [facility] 04-06-2024 12:06-0400 Diastolic blood pressure 80 mm[Hg] PHYSICIAN NO [facility] 04-06-2024 12:06-0400 Heart rate 80 /min PHYSICIAN NO [facility] 04-06-2024 12:06-0400 Respiratory rate 20 /min PHYSICIAN NO [facility] 04-06-2024 12:06-0400 SaO2% (BldA) [Mass fraction] 99 % PHYSICIAN NO [facility] 04-06-2024 12:06-0400 Systolic blood pressure 124 mm[Hg] PHYSICIAN NO [facility] Encounters Encounter Date Encounter Type Care Provider Facility Start: 03-30-2025 End: 03-30-2025 Bamboo flowsheet Christy MCKOY Work Phone: [facility] Start: 03-30-2025 End: 03-30-2025 Bamboo flowsheet Christy MCKOY Work Phone: [facility] Start: 03-30-2025 End: 03-30-2025 Office outpatient visit 25 minutes [facility]: [facility] Comment on above: Insulin controlled g estational diabetes mellitus (GDM) in second trimester (Primary Dx); Recurrent major depressive disorder, in partial remission; Prediabetes in mother during Start: 03-30-2025 End: 03-30-2025 ambulatory [facility] Start: 03-30-2025 End: 03-30-2025 flow sheet Christy MCKOY Work Phone: [facility] Comment on above: Second trimester pre gnancy; 27 weeks gestation of ; Gestational diabetes mellitus (GDM), antepartum, gestational diabetes method of control unspecified; Factor 5 Leiden mutation, heterozygous (CMS/HCC); Conceived by in vitro fertilization Start: 03-30-2025 End: 03-30-2025 ambulatory CHRISTY BURNETT Not Available Start: 03-22-2025 End: 03-22-2025 Telephone encounter Sonya Lomax RN [facility] Start: 03-16-2025 End: 03-16-2025 Telephone encounter Sonya Lomax RN [facility] Start: 03-16-2025 End: 03-16-2025 ambulatory CAIN DONALDSON [facility] Start: 03-11-2025 End: 03-11-2025 Telephone encounter Naomy Thompson RN Work Phone: [facility] Start: 03-07-2025 End: 03-07-2025 Orders Only Cole Wade MD Work Phone: [facility] Comment on above: Insulin controlled g estational [...] encounter Valerie Le RN [facility] Start: 02-28-2025 End: 02-28-2025 Orders Only Devika Pulido PA-C Work Phone: [facility] Comment on above: Insulin controlled g estational diabetes mellitus (GDM) in second trimester; Prediabetes in mother during Start: 02-24-2025 End: 02-24-2025 Office outpatient visit 25 minutes Apollo LAWRENCE Work Phone: [facility] Comment on above: Insulin controlled g estational diabetes mellitus (GDM) in second trimester (Primary Dx); Recurrent major depressive disorder, in partial remission; Bipolar 1 disorder (CMS-HCC); Prediabetes in mother during Start: 02-24-2025 End: 02-24-2025 ambulatory APOLLO SANDOVAL [facility] Start: 02-17-2025 End: 02-17-2025 Telephone encounter Christy Prado LPN [facility] Start: 02-15-2025 End: 02-15-2025 Telephone encounter Valerie Le RN [facility] Start: 02-08-2025 End: 02-08-2025 Office consultation new/estab patient 60 min Jaida Chadwick MD Work Phone: [facility] Comment on above: Insulin controlled g estational diabetes mellitus (GDM) in second trimester (Primary Dx); Prediabetes in mother during ; 20 weeks gestation of ; Choroid plexus cyst of fetus affecting care of mother, antepartum, single or unspecified fetus; Heterozygous factor V Leiden affecting in second trimester, antepartum; Severe obesity due to excess calories affecting , antepartum ([facility]-HCC); Bipolar disorder, in full remission, most recent episode depressed Start: 02-08-2025 End: 02-08-2025 Orders Only Christy Prado LPN [facility] Comment on above: Insulin controlled g estational diabetes mellitus (GDM) in second trimester (Primary Dx); Choroid plexus cyst of fetus affecting care of mother, antepartum, single or unspecified fetus; Heterozygous factor V Leiden affecting in second trimester, antepartum; Severe obesity due to excess calories affecting , antepartum ([facility]) Start: 02-03-2025 End: 02-03-2025 Telephone encounter Christy Prado LPN [facility] Start: 01-27-2025 End: 01-27-2025 Orders Only Apollo LAWRENCE Work Phone: [facility] Start: 01-26-2025 End: 01-26-2025 Office outpatient new 45 minutes Apollo LAWRENCE Work Phone: [facility] Comment on above: Insulin controlled g estational diabetes mellitus (GDM) in second trimester (Primary Dx) Start: 01-26-2025 End: 01-27-2025 Refill Apollo Guptaleatha LAWRENCE Work Phone: [facility] Start: 01-26-2025 End: 01-26-[address] Work Phone: [facility] Comment on above: Insulin controlled g estational [...] abstracting Scanning Provider External [facility] Start: 12-30-2024 End: 12-30-2024 Chart abstracting Jaida Chadwick MD Work Phone: [facility] Start: 12-29-2024 End: 12-29-2024 Telephone encounter Claudine Hawthorne [facility] Start: 12-23-2024 End: 12-23-2024 [facility] Start: 12-23-2024 End: 12-23-2024 Subsequent hospital [...] 04-06-2024 End: 04-06-2024 ambulatory PHYSICIAN TWIN Nune[facility] Work Phone: Start: 04-06-2024 End: 04-06-2024 Patient encounter procedure PHYSICIAN TWIN [facility] [place] Work Phone: Start: 04-15-2022 End: 04-15-2022 Subsequent hospital visit by physician [facility] Start: 02-08-2022 End: 02-08-2022 Subsequent hospital visit by physician [facility] Start: 01-14-2022 End: 01-14-2022 Subsequent hospital visit by physician [facility] Start: 01-07-2022 End: 01-07-2022 Subsequent hospital visit by physician [facility] Start: 12-10-2021 End: 12-10-2021 Subsequent hospital visit by physician [facility] Start: 09-26-2021 End: 09-26-2021 Subsequent hospital visit by physician [facility] Start: 09-17-2021 End: 09-17-2021 Subsequent hospital visit by physician [facility] Start: 06-25-2021 End: 06-25-2021 Subsequent hospital visit by physician [facility] Start: 02-15-2021 End: 02-15-2021 Subsequent hospital visit by physician [facility] Covid19 Pat Screening Schedule [facility] Comment on above: Arrived Start: 01-11-2021 End: 01-11-2021 Subsequent hospital visit by physician [facility] Procedures Date Procedure Procedure Detail [...] Phone: Start: 01-11-2021 Blood typing serologic abo Pedro Luis Dorantes Work Phone: Start: 01-11-2021 Gonadotropin chorion [...] Td Vaccines (2 - Td or Tdap) [facility] Start: 01-21-2028 Screening for malign ant neoplasm of cervix [facility] Start: 02-08-2026 Adult BMI Screening Adult BMI Screen ing [facility] Start: 02-08-2026 Tobacco Screening Tobacco Screening [facility] Start: 01-26-2026 Adult BMI Screening Adult BMI Screen ing [facility] Start: 01-26-2026 Tobacco Screening Tobacco Screening [facility] Start: 07-04-2025 Influenza vaccination Influenza Vacc ine [facility] Start: 06-03-2025 Influenza vaccination Flu vacc ine (Season Ended) [facility] Start: 04-25-2025 End: 04-25-2025 Telemedicine consultation with patient 04/25/2025 11:30 AM EDT Telemedicine [facility] [address] [place] [address] Devika Pulido, PAMoniqueC [address] [address] [facility] Start: 04-18-2025 End: 04-18-2025 Patient encounter procedure 04/18/2025 10:10 AM EDT Routine [facility] [address] [place] [phone] Cain Donaldson DO [address] [place] [address] [facility] Start: 04-14-2025 End: 04-14-2025 Patient encounter procedure 04/14/2025 8:00 AM EDT Appointment [facility] [place] [address] [place] [address] [facility] [place] Start: 03-30-2025 End: 09-30-2025 US biophysical profile w non stress test US biophysical profile w non stress test Imaging Routine Gestational diabetes mellitus (GDM), antepartum, gestational diabetes method of control unspecified Factor 5 Leiden mutation, heterozygous (CMS/HCC) Conceived by in vitro fertilization Expected: 03/30/2025 (Approximate), Expires: 09/30/2025 [facility] Comment on above: Expected: 03/30/2025 (Approximate), Expires: 09/30/2025 Start: 03-30-2025 End: 07-31-2025 US for US OB follow up transabdominal approach Imaging Routine Gestational diabetes mellitus (GDM), antepartum, gestational diabetes method of control unspecified Factor 5 Leiden mutation, heterozygous (CMS/HCC) Conceived by in vitro fertilization Expected: 03/30/2025, Expires: 07/31/2025 [facility] Work Phone: Comment on above: Expected: 03/30/2025 , Expires: 07/31/2025 Start: 03-30-2025 End: 03-30-2025 Telemedicine consultation with patient 03/30/2025 1:30 PM EDT Telemedicine [facility] [address] [place] [phone] Apollo Sandoval, MANAGER LOCAL-MAINTENANCE AIDE [address] [place] [address] [facility] Start: 03-30-2025 End: 03-30-2025 Patient encounter procedure [facility] Comment on above: Arrived Start: 03-16-2025 End: 03-16-2025 Patient encounter procedure 03/16/2025 8:00 AM EDT Appointment [facility] [address] [place] [phone] [facility] Start: 03-03-2025 End: 03-03-2026 Alanine aminotransferase [Enzymatic activity/volume] in Serum or Plasma ALT Lab Routine 23 weeks gestation of induced hypertension, antepartum Expected: 03/03/2025 (Approximate), Expires: 03/03/2026 [facility] Comment on above: Expected: 03/03/2025 (Approximate), Expires: 03/03/2026 Start: 03-03-2025 End: 03-03-2026 Aspartate aminotransferase [Enzymatic activity/volume] in Serum or Plasma AST Lab Routine 23 weeks gestation of induced hypertension, antepartum Expected: 03/03/2025 (Approximate), Expires: 03/03/2026 [facility] Comment on above: Expected: 03/03/2025 (Approximate), Expires: 03/03/2026 Start: 03-03-2025 End: 03-03-2026 CBC W Auto Differential panel - Blood CBC and differential Lab Routine 23 weeks gestation of induced hypertension, antepartum Expected: 03/03/2025 (Approximate), Expires: 03/03/2026 [facility] Comment on above: Expected: 03/03/2025 (Approximate), Expires: 03/03/2026 Start: 03-03-2025 End: 03-03-2026 Creatinine [Mass/volume] in Serum or Plasma Creatinine Lab Routine 23 weeks gestation of induced hypertension, antepartum Expected: 03/03/2025 (Approximate), Expires: 03/03/2026 [facility] Work Phone: Comment on above: Expected: 03/03/2025 (Approximate), Expires: 03/03/2026 Start: 03-03-2025 End: 03-03-2026 Lactate dehydrogenase [Enzymatic activity/volume] in Serum or Plasma by Lactate to pyruvate reaction Lactate dehydrogenase Lab Routine 23 weeks gestation of induced hypertension, antepartum Expected: 03/03/2025, Expires: 03/03/2026 [facility] Comment on above: Expected: 03/03/2025 , Expires: [...] Routine [facility] [address] [place] [address] Cain Donaldson DO [address] [facility] [place] [address] Arrived [facility] Comment on above: Arrived Start: 02-24-2025 End: 02-24-2025 Patient encounter procedure 02/24/2025 1:00 PM EDT Office Visit [facility] at [facility] [address] [place] [phone] Apollo Sandoval, MANAGER LOCAL-MAINTENANCE AIDE [address] [place] [address] [facility] Start: 02-08-2025 End: 02-08-2026 US MFM with or without consult US MFM with or without consult Imaging Routine Insulin controlled gestational diabetes mellitus (GDM) in second trimester Choroid plexus cyst of fetus affecting care of mother, antepartum, single or unspecified fetus Heterozygous factor V Leiden affecting in second trimester, antepartum Severe obesity due to excess calories affecting , antepartum ([facility]) Expected: 02/08/2025, Expires: 02/08/2026 [employer] Work Phone: Comment on above: Expected: 02/08/2025 , Expires: 02/08/2026 Start: 02-08-2025 End: 02-08-2025 Patient encounter procedure [facility] Start: 01-26-2025 End: 01-26-2025 Patient encounter procedure 01/26/2025 3:30 PM EDT Office Visit [facility] [address] [place] [phone] Apollo Sandoval, UMM-MAINTENANCE AIDE [address] [place] [address] [facility] Start: 01-26-2025 End: 01-26-2025 ambulatory 01/26/2025 1:30 PM EDT Support Visit [facility] at [facility] [address] [place] [address] Kenzie Rhodes, RD [address], [address] [place] [id number] [facility] Start: 01-20-2025 End: 02-20-2025 Alpha fetoprotein, maternal [...] first trimester Expected: 11/25/2024 (Approximate), Expires: 11/25/2025 [facility] Comment on above: Expected: 11/25/2024 (Approximate), Expires: 11/25/2025 Start: 07-04-2024 COVID-19 Vaccine ( season) COVID-19 Vaccine ( season) [facility] Start: 07-04-2024 COVID-19 Vaccine ( season) COVID-19 Vaccine ( season) [facility] Start: 07-04-2024 Influenza vaccination Influenza Vacc [facility] Start: 06-03-2024 Influenza vaccination Flu vaccine (# 1) [facility] Start: 11-24-2023 Screening for malign ant neoplasm of cervix Pap Smear [facility] Start: 2023 Screening for malign ant neoplasm of cervix [facility] Start: 07-04-2022 Influenza vaccination Flu vacc ine (Season Ended) [facility] Start: 07-04-2021 Influenza vaccination [facility] Start: 07-04-2020 Influenza vaccination Flu vaccine (# 1) [facility] Work Phone: Start: 07-03-2015 DTaP,Tdap and Td Vac cines (2 - Tdap) DTaP,Tdap and Td Vaccines (2 - Tdap) [facility] Start: 2014 Screening for malign ant neoplasm of cervix [facility] Start: 2012 DTaP/Tdap/Td vaccine (1 - Tdap) DTaP/Tdap/Td vaccine (1 - Tdap) [facility] Start: 2012 Hepatitis B vaccine (1 of 3 - 19+ 3-dose series) Hepatitis B vaccine (1 of 3 - 19+ 3-dose series) [facility] Start: 2011 Adult BMI Follow Up Plan Adult BMI Follow Up Plan [facility] Start: 2011 Adult BMI Screening Adult BMI Screen ing [facility] Start: 2009 COVID-19 Vaccine (1) COVID-19 Vaccin e (1) [facility] [employer] Phone: Start: 2006 Varicella vaccine (1 of 2 - 13+ 2-dose series) Varicella vaccine (1 of 2 - 13+ 2-dose series) [facility] Start: 2005 COVID-19 Vaccine (1) COVID-19 Vaccin e (1) [facility] Start: 2005 Depression Screen Depression Screen [facility] Start: 2005 Depression Screening Depression Scre ening [facility] Start: 2005 Tobacco Screening Tobacco Screening [facility] Start: 1998 COVID-19 Vaccine (1) COVID-19 Vaccin e (1) [facility] Start: 1994 Varicella vaccine (1 of 2 - 2-dose childhood series) Varicella vaccine (1 of 2 - 2-dose childhood series) [employer] End: 02-08-2025 Alpha Fetoprotein, Maternal [facility] [employer] Phone: Comment on above: Once for 1 Occurrenc es starting 02/08/2025 until 02/08/2025 End: 01-11-2021 Anti Mullerian Hormone Anti Mullerian Hormone Lab Routine Once for 1 Occurrences starting 01/11/2021 until 01/11/2021 [employer] Phone: Comment on above: Once for 1 Occurrenc es starting 01/11/2021 until 01/11/2021 Anti Mullerian Hormone Anti Keeley erian Hormone Lab Routine 01/11/2021 1:58 PM [employer] Phone: Bacteria identified in Urine by Culture Urine culture Microbiology Routine Missed menses [facility]2024 [facility] above: Ordered: 11/25/2024 End: 01-11-2021 C.trachomatis N.gonorrhoeae DNA, Urine C.trachomatis N.gonorrhoeae DNA, Urine Microbiology Routine Once for 1 Occurrences starting 01/11/2021 until 01/11/2021 [employer] Phone: Comment on above: Once for 1 Occurrenc es starting 01/11/2021 until 01/11/2021 C.trachomatis N.gonorrhoeae DNA, Urine C.trachomatis N.gonorrhoeae DNA, Urine Microbiology Routine 01/11/2021 2:29 PM [employer] Phone: CBC W Auto Different ial panel - Blood CBC and differential Lab Routine Missed menses , unspecified gestational age Ordered: 11/25/2024 [facility] [employer] Comment on above: Ordered: 11/25/2024 CHLAMYDIA TRACHOMATI S (GENITO/STI) CHLAMYDIA TRACHOMATIS (GENITO/STI) Lab Routine Exposure to STD Ordered: 01/20/2025 [facility] on above: Ordered: 01/20/2025 End: 02-15-2021 COVID-19 COVID-19 Lab Routine Once for 1 Occurrences starting 02/15/2021 until 02/15/2021 [employer] Phone: Comment on above: Once for 1 Occurrenc es starting 02/15/2021 until 02/15/2021 COVID-19 COVID-19 Lab Rou linda 02/15/2021 3:10 PM EDT Entrec Phone: End: 12-23-2024 Culture, Urine Bon [employer] Comment on above: Once for 1 Occurrenc es starting 12/23/2024 until 12/23/2024 Cytology Cervical or vaginal smear or scraping study Pap Smear Pathology and Cytology Routine Well woman exam with routine gynecological exam Ordered: 01/20/2025 [facility] [employer] Comment on above: Ordered: 01/20/2025 End: 01-11-2021 Factor 5 Leiden Factor 5 Leiden Lab Routine Once for 1 Occurrences starting 01/11/2021 until 01/11/2021 [employer] Phone: Comment on above: Once for 1 Occurrenc es starting 01/11/2021 until 01/11/2021 Factor 5 Leiden Factor 5 Leiden Lab Routine 01/11/2021 1:58 PM [employer] Phone: End: 01-11-2021 HbA1c (Bld) [Mass fraction] Hemoglobin A1C Lab Routine Once for 1 Occurrences starting 01/11/2021 until 01/11/2021 [employer] Phone: Comment on above: Once for 1 Occurrenc es starting 01/11/2021 until 01/11/2021 HbA1c (Bld) [Mass fraction] Hemoglobin A1C Lab Routine 01/11/2021 1:58 PM [employer] Phone: Hemoglobin A1c/Hemoglobin.total in Blood Hemoglobin A1c Lab Routine Missed menses , unspecified gestational age Ordered: 11/25/2024 [facility] [employer] Comment on above: Ordered: 11/25/2024 End: 12-23-2024 Hemoglobin A1c/Hemoglobin.total in Blood [employer] Comment on above: Once for 1 Occurrenc es starting 12/23/2024 until 12/23/2024 End: 12-23-2024 Hepatitis B Surface Antigen [employer] Comment on above: Once for 1 Occurrenc es starting 12/23/2024 until 12/23/2024 Hepatitis B virus urbano rface Ag [Presence] in Serum or Plasma by Immunoassay Hepatitis B surface antigen Lab Routine Missed menses , unspecified gestational age Ordered: 11/25/2024 [facility] Comment on above: Ordered: 11/25/2024 End: 12-23-2024 Hepatitis C Antibody [facility] [employer] Phone: Comment on above: Once for 1 Occurrenc es starting 12/23/2024 until 12/23/2024 Hepatitis C virus Ab [Presence] in Serum or Plasma by Immunoassay Hepatitis C antibody Lab Routine Missed menses , unspecified gestational age Ordered: 11/25/2024 [facility] Comment on above: Ordered: 11/25/2024 End: 12-23-2024 HIV Screen [facility] [employer] Comment on above: Once for 1 Occurrenc es starting 12/23/2024 until 12/23/2024 HIV-1/HIV-2 antigen/antibody combination immunoassay HIV-1 and HIV-2 antibodies Lab Routine Missed menses , unspecified gestational age Ordered: 11/25/2024 [facility] Comment on above: Ordered: 11/25/2024 Human papilloma viru s DNA [Presence] in Unspecified specimen by Probe with amplification HPV DNA probe, amplified Microbiology Routine Well woman exam with routine gynecological exam Ordered: 01/20/2025 [facility] Comment on above: Ordered: 01/20/2025 Neisseria gonorrhoea e DNA [Presence] in Unspecified specimen by JOSELYN with probe detection Neisseria gonorrhea DNA probe, direct Lab Routine Exposure to STD Ordered: 01/20/2025 [facility] Comment on above: Ordered: 01/20/2025 End: 01-11-2021 Prothrombin Gene Mutation Prothrombin Gene Mutation Lab Routine Once for 1 Occurrences starting 01/11/2021 until 01/11/2021 [employer] Phone: Comment on above: Once for 1 Occurrenc es starting 01/11/2021 until 01/11/2021 Prothrombin Gene Mutation Prothr ombin Gene Mutation Lab Routine 01/11/2021 1:58 PM EST [employer] Phone: Reagin Ab [Presence] in Serum by RPR RPR Lab Routine Missed menses , unspecified gestational age Ordered: 11/25/2024 [facility] Comment on above: Ordered: 11/25/2024 Rubella antibody, IgG Rubella an tibody, IgG Lab Routine Missed menses , unspecified gestational age Ordered: 11/25/2024 [facility] Comment on above: Ordered: 11/25/2024 End: 12-23-2024 Rubella antibody, IgG [facility] [employer] Comment on above: Once for 1 Occurrenc es starting 12/23/2024 until 12/23/2024 SURESWAB(R) ADVANCED VAGINITIS PLUS, TMA SURESWAB(R) ADVANCED VAGINITIS PLUS, TMA Pathology and Cytology Routine Vaginal discharge Ordered: 01/20/2025 [facility] Comment on above: Ordered: 01/20/2025 End: 01-11-2021 T. pallidum Ab T. pallidum Ab Lab Routine Once for 1 Occurrences starting 01/11/2021 until 01/11/2021 [employer] Phone: Comment on above: Once for 1 Occurrenc es starting 01/11/2021 until 01/11/2021 T. pallidum Ab T. pallidum Ab L ab Routine 01/11/2021 1:58 PM EST [employer] Phone: End: 12-23-2024 T. pallidum Ab [facility] [employer] Comment on above: Once for 1 Occurrenc [...] due to excess calories affecting , antepartum ([facility]) Bipolar disorder, in full remission, most recent episode depressed 1 Occurrences starting 02/08/2025 until 02/08/2026 [employer] Work Phone: Comment on above: 1 Occurrences starti ng 02/08/2025 until 02/08/2026 End: 01-11-2021 Varicella Zoster Antibody, IgG Varicella Zoster Antibody, IgG Lab Routine Once for 1 Occurrences starting 01/11/2021 until 01/11/2021 [employer] Phone: Comment on above: Once for 1 Occurrenc es starting 01/11/2021 until 01/11/2021 Varicella Zoster Ant ibody, IgG Varicella Zoster Antibody, IgG Lab Routine 01/11/2021 1:58 PM EST [employer] Work Phone: End: 01-11-2021 Vitamin D 25 Hydroxy Vitamin D 25 Hydroxy Lab Routine Once for 1 Occurrences starting 01/11/2021 until 01/11/2021 [employer] Phone: Comment on above: Once for 1 Occurrenc es starting 01/11/2021 until 01/11/2021 [facility] D 25 [facility]xy [facility] Work Phone: End: 06-25-2021 Vitamin D 25 Hydroxy Vitamin D 25 Hydroxy Lab Routine Once for 1 Occurrences starting 06/25/2021 until 06/25/2021 [employer] Phone: Comment on above: Once for 1 Occurrenc es starting 06/25/2021 until 06/25/2021 Immunizations Immunization Date Immunization Notes Care Provider Fa [facility] 08-03-2024 influenza virus vaccine, unspecified formulation Christy Prado LPN 2d2c 09-08-2023 influenza virus vaccine, unspecified formulation Jaida Chadwick MD Work Phone: 2d2c Payers Date Payer Category Payer [facility] [id number] 2024 Self-pay 2020 [employer] - Other [id number] 2014 Unknown [id number] 1993 Unknown [id number] 2.16.840.1.007895.3.579. 2.174 1993 Unknown [id number] 2.16.840.1.288426.3.579. 2.174 1993 Unknown [id number] 2.16.840.1.243965.3.579. 2.174 1993 Unknown [id number] 2.16.840.1.915480.3.579. 2.174 1993 Unknown [id number] 2.16.840.1.481993.3.579. 2.9 1993 Unknown [id number] 2.16.840.1.583070.3.579. 2.1258 1993 Unknown [id number] 2.16.840.1.952449.3.579. 2.9 1993 Unknown [id number] 2.16.840.1.667738.3.579. 2.9 1993 Unknown [id number] 2.16.840.1.320164.3.579. 2.9 1993 Unknown [id number] 2.16.840.1.513743.3.579. 2.9 1993 Unknown [id number] 2.16.840.1.092468.3.579. 2.1286 1993 Unknown [id number] 2.16.840.1.204976.3.579. 2.1286 1993 Unknown [id number] 2.16.840.1.335978.3.579. 2.1286 1993 Unknown [id number] 2.16.840.1.059890.3.579. 2.1286 1993 Unknown [id number] 2.16.840.1.074764.3.579. 2.1286 1993 Unknown [id number] 2.16.840.1.294577.3.579. 2.1286 1993 Unknown [id number] 2.16.840.1.479144.3.579. 2.1286 Unknown [id number] 2.16.840.1.837408.3.579. 2.531 Social History Date Type Detail Facility Tobacco smoking stat [facility] Unknown if ever smoked [employer] Phone: Start: 1995 Sex Assigned At Not on file M [employer] Phone: Tobacco smoking stat [facility] Tobacco smoking consumption unknown [facility] Start: 1993 Sex Assigned At Female F [facility] Start: 02-20-2013 End: 11-15-2020 History of Social function [employer] Start: 02-20-2013 End: 11-15-2020 [email or web address] Start: 10-01-2024 [facility] Start: 11-24-2024 Gender identity Identifies as female gender (finding) [facility] Start: 06-06-2015 End: 12-29-2024 Sex Female (finding) [facility] Start: 11-24-2020 End: 02-08-2025 Tobacco smoking status NHIS Ex-smoker [facility] Start: 11-03-2020 End: 11-03-2010 History of tobacco use Current smoker [facility] Start: 11-03-2020 End: 11-03-2010 History of tobacco use Cigarette Smoker [facility] Start: 11-24-2020 End: 02-08-2025 Tobacco use and exposure Smokeless tobacco non-user [facility] Start: 12-30-2024 End: 02-08-2025 Alcoholic beverage intake Ex-drinker (finding) [facility] Childcare Unknown [facility] Medical Equipment Procedure Code Equipment Code Equipment Origin al Text Equipment Identifier Dates [id number] Start: 12-23-2024 End: 01-22-2025 1 each by In Vit ro route Daily Use to check FSBS four times daily [id number] Start: 12-23-2024 End: 01-22-2025 Use 2 syringes i n the morning for insulin dosage and 2 syringes in the Evening for insulin dosage. Total of 4 syringes daily needed. [id number] Start: 01-07-2025 Goals Date Patient Goal Desired Activity /State Personal health goal Clinical Notes 11-25-2024 to 03-30-2025 Apollo Sandoval APRN-RHONDA - 03/30/2025 1:30 PM EDTBelgica Scherer NP - 03/30/2025 8:50 AM EDTTelephone Encounter - Sonya Lomax RN - 03/22/2025 5:45 PM Diego Parkinson LPN - 03/03/2025 8:40 AM EDT Note Date & Type Note Facility 03-30-2025 History of Present illness Narrative REASON FOR OFFICE VISIT: Video Visit via Real-time Synchronous Audiovisual Provider Location: [facility] AT [address] [id number] Patient Location: Patient's home Video Visit Consent [...] that there are some limitations compared to ypmg-ex-azwi evaluations. The patient consented to the presence [...] pain. +FM. She is being followed at [facility] due to GDMA2. States she is [...] each meal., Disp: , Rfl: blood-glucose meter [facility], 4 (four) times a day. Use to [...] route., Disp: , Rfl: lancets (LANCETS,ULTRA THIN) [facility], Use to check blood sugar 4 times daily. Fasting in the morning, and 1 hour after each meal., Disp: , Rfl: PNV no.153/FA/om3/dha/epa/fish ( GUMMIES ORAL), Take 2 tablets by mouth in the morning., Disp: , Rfl: LABS: Lab Results Component Value Date CREATININE 0.73 01/06/2016 Lab Results Component Value Date TSH 3.31 11/24/2020 No results found for: [id number] Lab Results Component Value Date CREATININE 0.73 [...] values to us weekly by e-mail to: .[employer] or by fax to: [phone] TIME OF CONSULTATION: 15 minutes with the patient, >50% in discussion and counseling, coordination of care which was [id number], review of records and communication back to referring provider. HOWARD Whitman 03/30/25 1344 documented in this encounter [facility] [employer] 03-30-2025 History of Present illness Narrative Reason [...] appointment. Patient continues to follow closely with [facility] and has telehealth visit today to review glucose logs. She continues on Lantus and doing well. No complaints today. Given orders for NST/BPP and has scheduled growth ultrasound with [facility]. Will obtain Hgb / hematocrit and platelets today. Documented by Belgica Scherer NP on behalf of: Belgica Scherer NP documented in this encounter [facility] 03-22-2025 Miscellaneous Notes Called pt and left [...] sugars next week. documented in this encounter [facility] 03-22-2025 Telephone encounter Note Called pt [...] send in new blood sugars next week. [facility] 03-16-2025 Miscellaneous Notes Received BG results and all but 4 are in target range. No pattern noted. Called and left message of praise for all efforts and to call if questions. To send next week again. No changes. Continue your current insulin dose for this week. documented in this encounter [facility] 03-16-2025 Telephone encounter Note Received BG results and all but 4 are in target range. No pattern noted. Called and left message of praise for all efforts and to call if questions. To send next week again. No changes. Continue your current insulin dose for this week. [facility] 03-11-2025 Miscellaneous Notes Summary: [facility] Blood Glucose Log & Insulin Dose Change Called and spoke with Merna who did receive message from early this week about BG log reviewed and increased Lantus evening dose to 19 Units daily. Apologized for not returning call noting life has been busy, hectic with foster infant placement. Denied any questions. documented in this encounter [facility] 03-11-2025 Telephone encounter Note Summary: [facility] Blood Glucose Log & Insulin Dose Change Called and spoke with Merna who did receive message from early this week about BG log reviewed and increased Lantus evening dose to 19 Units daily. Apologized for not returning call noting life has been busy, hectic with foster infant placement. Denied any questions. [email or web address] Phone: 03-07-2025 Miscellaneous Notes Called pt [...] for this week. documented in this encounter [facility] 03-07-2025 Telephone encounter Note Called pt to discuss her insulin change for this week and received voicemail. Left her a message that Dr Wade reviewed her blood sugars and would like her to increase her lantus in the evening to 19 units. Asked her to please call back to verify she got this new insulin change for this week. [facility] 03-03-2025 History of Present illness Narrative Reason [...] Cain Donaldson DO documented in this encounter [facility] 03-01-2025 Miscellaneous Notes Called and notified patient that Pat MCKOY reviewed her blood sugar log and would like her to increase her Lantus to 17 units in the evening. Encouraged patient to write down what she is eating when having elevations greater than 140. Patient verbalized understanding. documented in this encounter [facility] 03-01-2025 Telephone encounter Note Called and notified patient that Pat MCKOY reviewed her blood sugar log and would like her to increase her Lantus to 17 units in the evening. Encouraged patient to write down what she is eating when having elevations greater than 140. Patient verbalized understanding. [facility] 02-24-2025 History of Present illness Narrative REASON FOR OFFICE VISIT: Video Visit via Real-time Synchronous Audiov[employer]ual Provider Location: [facility]- MEDICINE AT [address] [address] Patient Location: Patient's home Video [...] that there are some limitations compared to [id number] evaluations. The patient consented to the presence [...] chest pain. She is being followed at [facility] due to GDMA2. States she is [...] each meal., Disp: , Rfl: blood-glucose meter [facility], 4 (four) times a day. Use to [...] route., Disp: , Rfl: lancets (LANCETS,ULTRA THIN) [facility], Use to check blood sugar 4 times daily. Fasting in the morning, and 1 hour after each meal., Disp: , Rfl: PNV no.153/FA/om3/dha/epa/fish ( GUMMIES ORAL), Take 2 tablets by mouth in the morning., Disp: , Rfl: LABS: Lab Results Component Value Date CREATININE 0.73 01/06/2016 Lab Results Component Value Date TSH 3.31 11/24/2020 No results found for: [id number] Lab Results Component Value Date CREATININE 0.73 [...] by e-mail to: or by fax to: [phone] TIME OF CONSULTATION: 25 minutes with the patient, >50% in discussion and counseling, coordination of care which was [id number], review of records and communication back to referring provider. HOWARD Whitman 02/24/25 1333 documented in this encounter [facility] 02-17-2025 Miscellaneous Notes Notified patient by phone of low risk CFDNA results. My direct phone number was given in case any questions arise. documented in this encounter [facility] 02-17-2025 Telephone encounter Note Notified patient by phone of low risk CFDNA results. My direct phone number was given in case any questions arise. [facility] 02-15-2025 Miscellaneous Notes Called and spoke with patient regarding blood sugar log. Noted 6 elevations after insulin change to Lantus last week- 3 fastings and 3 PP (1 was 140). Patient reports last 2 days fasting was 85 and 93. Continues to try dietary changes. Encouraged patient to send in another log next week. documented in this encounter [facility] 02-15-2025 Telephone encounter Note Called and spoke with patient regarding blood sugar log. Noted 6 elevations after insulin change to Lantus last week- 3 fastings and 3 PP (1 was 140). Patient reports last 2 days fasting was 85 and 93. Continues to try dietary changes. Encouraged patient to send in another log next week. [facility] 02-08-2025 History of Present illness Narrative [...] clinic Have you been seen here at [facility] in a previous ? No Recent ER visits or hospitalizations? No Bring blood sugar log or meter with you today? (Please bring them with you for every visit at [facility]) N/A Flu vaccine (Sep-January)? Any concerns that [...] 5day embryo transfer on 10/07/2024, JANIYA 06/25/2025. 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 Use to [...] route., Disp: , Rfl: lancets (LANCETS,ULTRA THIN) [facility], Use to check blood sugar 4 times [...] TESTS AND ULTRASOUND REPORTS: Referral records and 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 We discussed this finding. CPCs [...] send in blood glucose logs weekly to [facility] Recommend baseline HELLP labs including CBC, CMP, urine protein creatinine ratio, through primary OB Incomplete level 2 anatomy ultrasound echocardiogram, attempt completion in 4 weeks with [facility] Recommend growth ultrasounds every 4 weeks following completion of level 2 anatomy ultrasound, through primary OB Recommend twice weekly testing starting at 32 weeks gestation, through primary OB Delivery recommendations : Recommend delivery at [id number] Discuss delivery if estimated weight is >4500g [...] developing diabetes later on. 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 Patient does have ultrasound and office visit [...] procedures Referring and communicating with other health managed care director (not separately reported) Documenting clinical information in the electronic or other health record Jaida Chadwick MD Maternal- Medicine [facility] [address] [place] [address] [facility], the CDC, and other organizations representing maternal and public health professionals recommend that , , and lactating people and those considering receive the COVID-19 vaccination. Vaccination is the best method to reduce maternal and complications of SARS-CoV-2 infection. This document was created with Photos to Photos technology. Though I make every effort to review the dictation as it is transcribed, on occasion the spoken word can be misinterpreted by the technology leading to inappropriate words, phrases, or sentences. This note is addressed to the requesting provider as a consultation for clinical guidance. Specific medical abbreviations are occasionally used and those are generally approved by the [place]?Board of?Obstetrics and?Gynecology?as well as?Shaji s abbreviations. The above plan of care was based solely on the diagnoses for which a consultation was requested. ?More frequent testing may be indicated based on her other medical/obstetrical conditions. The management of other or medical conditions is beyond the scope of requested consultation and will continue to be followed by the primary legal writing professor or primary care provider. Note to patient: [...] Patient tolerated well. documented in this encounter [facility] 02-03-2025 Miscellaneous Notes Received call from Nurse at Dr Donaldson's office who states they do not have any records of genetic testing. Teacher Dancing places call to Dr Pena's office at [facility] to inquire if they have any records of genetic testing for this - they also do not have any record of genetic testing. documented in this encounter [facility] 02-03-2025 Telephone encounter Note Received call from Nurse at Dr Donaldson's office who states they do not have any records of genetic testing. Teacher Dancing places call to Dr Pena's office at [facility] to inquire if they have any records of genetic testing for this - they also do not have any record of genetic testing. [facility] 02-03-2025 Miscellaneous Notes Left voicemail for BELA Gamboa at Dr Donaldson's office requesting genetic testing that was completed prior to IVF be faxed over to my attention. documented in this encounter [facility] 02-03-2025 Telephone encounter Note Left voicemail for BELA Gamboa at Dr Donaldson's office requesting genetic testing that was completed prior to IVF be faxed over to my attention. [facility] 01-26-2025 History of Present illness Narrative [...] YES Have you been seen here at [facility] in a previous ? NO Recent ER visits or hospitalizations? NO Bring blood sugar log or meter with you today? (Please bring them with you for every visit at [facility]) YES, SEE LOGS. Flu vaccine (Sep-January)? YES [...] pain. +FM. She is being followed at [facility] due to GDMA2. States she is [...] each meal., Disp: , Rfl: blood-glucose meter [facility], 4 (four) times a day. Use to [...] TSH 3.31 11/24/2020 No results found for: [id number] Lab Results Component Value Date CREATININE 0.73 [...] baby. 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 [...] values to us weekly by e-mail to: [email or web address] or by fax to: [phone] TIME OF CONSULTATION: 35 minutes with the patient, >50% in discussion and counseling, coordination of care which was [id number], review of records and communication back to referring provider. HOWARD Whitman 01/26/25 1606 documented in this encounter [facility] 01-26-2025 History of Present illness Narrative Nutritional Assessment Form Date: 01/26/2025 JANIYA: Estimated Date of Delivery: 06/24/25 EGA: 18w5d Past Medical History: Diagnosis Date Depression [place] product of in vitro fertilization (IVF) 2024 Suicide attempt (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 Current Exercise program walking Who prepares the meal pt Who purchase food at your home? pt Equipment use for cooking/food storage has all Food Assistance(Ex.WIC, Food [place]) knows about Dining out Yes 1-2 times [...] care for you: OB Provider Family Doctor Deckhand Maintenance Name: Mendoza Name: No primary care provider [...] demonstration Is there anything about your culture, buddhism, or personal beliefs we need to know about to care for you: none Primary Language spoken: Malaysian [22] Primary Language for learning: Malaysian Are you currently in a relationship where you are physically hurt, threatened or made to fee afraid? [] Yes [x] No Sports Announcer needed? [] Yes [x] No Marital status/Living [...] If yes, where: On thge following scale, chickaloon the number, which describes your current level [...] was 60min. . documented in this encounter [facility] 01-26-2025 Instructions Sonya Lomax RN - [...] HOURS WHILE AWAKE documented in this encounter [facility] 01-20-2025 History of Present illness Narrative Reason for Appointment: Patient ID: Kevin White is a 29 y.o. female who presents for Routine Visit Patient presents today for Return OB appointment. MEDICATIONS Current Outpatient Medications Medication Instructions Alcohol Swabs (Alcohol Prep Pad) 70 % pads 1 Pad, Topical, Daily, Use four times daily to check FSBS. Blood Glucose Monitoring Suppl (Biologics Modular Glucometer) w/Device kit 1 kit, Does not [...] nursing note reviewed. Exam conducted with a subsea engineer present. Vitals: There is no height or [...] of: LEELEE Keita documented in this encounter [facility] 12-29-2024 Miscellaneous Notes I left a message for pt to call to schedule her us/ and consult, I will call her again documented in this encounter [facility] 12-29-2024 Telephone encounter Note I left a message for pt to call to schedule her us/ and consult, I will call her again [facility] 12-23-2024 History of Present illness Narrative Reason [...] nursing note reviewed. Exam conducted with a subsea engineer present. Vitals: There is no height or [...] or undercooked meat, and [facility] Patient has been consulted regarding any further do's and don'ts of . Patient voiced understanding and all questions and concerns were answered. Patient has done 4 rounds of invitro to conceive this . 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 Patient will be referred to [facility] and can discuss medication at that time [...] Cain Donaldson DO documented in this encounter [facility] 11-25-2024 History of Present illness Narrative Reason [...] or undercooked meat, and [facility] away [facility]. Patient has also been advised to not change litter boxes and eat 6 small meals a day. Patient has been consulted regarding the do's and don'ts of . Patient was given labs and all questions and concerns were answered. Pt declined the [employer] gender/genetics form. Pt did state she is [...] Colette Zamarripa MA documented in this encounter [facility] Evaluation note No assessment inform ation available [facility] Work Phone: Evaluation note Diagnosis Missed menses [...] vitro fertilization, antepartum documented in this encounter [facility] HealthcareEvaluation note* Diagnosis Well woman exam with routine gynecological exam Routine gynecological examination 17 weeks gestation of Second trimester state, incidental Exposure to STD Vaginal discharge Leukorrhea, not specified as infective documented in this encounter [facility] HealthcareEvaluation note* Diagnosis Insulin controlled gestational diabetes mellitus (GDM) in second trimester- Primary documented [facility] Diagnosis Insulin controlled gestational diabetes mellitus (GDM) in second trimester documented in this encounter [facility]* Diagnosis Insulin controlled gestational diabetes [...] recent episode depressed documented in this encounter [facility]* Diagnosis Insulin controlled gestational diabetes mellitus (GDM) in second trimester- Primary Choroid plexus cyst of fetus affecting care of mother, antepartum, single or unspecified fetus Heterozygous factor V Leiden affecting in second trimester, antepartum Severe obesity due to excess calories affecting , antepartum (CMS-HCC) documented in this encounter [facility]* Diagnosis Insulin controlled gestational diabetes mellitus (GDM) in second trimester- Primary Recurrent major depressive disorder, in partial remission Bipolar 1 disorder (CMS-HCC) Prediabetes in mother during documented in this encounter [facility]* Diagnosis Insulin controlled gestational diabetes mellitus (GDM) in second trimester Prediabetes in mother during documented in this encounter [facility]* Diagnosis 23 weeks gestation of Second trimester state, incidental induced hypertension, antepartum Transient hypertension of , antepartum Insulin controlled gestational diabetes mellitus (GDM) during , antepartum documented in this encounter [facility] HealthcareEvaluation note* Diagnosis Second trimester state, incidental [...] and content) DATE CREATED AUTHOR 04/18/2024 [facility] DATE CREATED AUTHOR AUTHOR'S ORGANIZ ATION 03/11/2025 [facility] Garrido [facility] DATE CREATED AUTHOR AUTHOR'S ORGANIZ ATION 04/02/2025 [facility] EPIC DATE CREATED AUTHOR AUTHOR'S ORGANIZ ATION 04/02/2025 [facility] Reason for Visit (unrecogniz ed section and content) Reason Comments Amenorrhea Reason Comments Routine Visit Reason Comments Gestational Diabetes Specialty Diagnoses / Procedures Referred By Otis may Referred To Contact Maternal and Medicine Diagnoses Insulin controlled gestational diabetes mellitus (GDM) in second trimester Cain Donaldson DO Phone: tel: fax: Maternal- Medicine at [facility] [address] [place] [address] Phone: tel: fax: Referral ID Status Reason Start Date Expiration Date Visits Requested Visits Authorized [id number] Pending Review Specialty Services Required 01/11/2025 01/11/2026 [...] BE BASED ON THE PRIMARY CLINICAL RECORDS. [facility]. provides no warranty or guarantee of the accuracy or completeness of information in this document.
[2025-04-08 17:17] VITALS: BP 131/70; PULSE 82
== END 2025-04-08 17:52 | disposition home or self-care (01) ==
LOC: FBCO 17:08 → FBC 17:11
PROVIDERS: PCP Obstetrics & Gynecology; Visit Provider Obstetrics & Gynecology
DX: O24.419 Gestational diabetes mellitus in pregnancy, unspecified control (principal); Z3A.29 29 weeks gestation of pregnancy
CPT/HCPCS: 59025

== ENCOUNTER 2025-04-11 16:41 | Outpatient (OUT) | payer BC, SELFPAY ==
--- OUTSIDE RECORDS SUMMARY | 2025-01-21 11:10 | XMS_ITS | Continuity of Care Document ---
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 [address] [place] [address], [id number] , [place]. tel: [phone] [facility], [address] [place] [address], [id number] , [place] tel: [phone] [facility] Encounter for screening for respiratory tuberculosis 5 Visci DO Miguel. [address] [place] [address], [id number] , [place]. tel:[phone] [facility], [address] [place] [address], [id number] , [place] tel: [phone] [facility] No Information 4 Visci DO Miguel. [address] [place] [address], [id number] , [place]. tel: [phone] [facility], [address] [place] [address], [id number] , [place] tel:+ [phone] [facility] Lab Draw (chief complaint) Other specified disorders of pancreatic internal secretionSubclinical iodine-deficiency hypothyroidismEncount er for screening for other viral diseasesEncounter for screening for other infectious disease 4 Cynthia White. [address] [place], [place], 729957148 , [place]. tel: [phone] [facility], [address], [place], 686041546 , [place] tel: [phone] [facility] lab draw (chief complaint) Encounter for screening for other viral diseases 4 Cynthia White. [address], [place], 313767933 , [place]. tel: [phone] [facility], [address], [place], 774326373 , [place] tel: [phone] [facility] No Information 4 Cynthia White. [address], [place], 456612118 , [place]. tel: [phone] [facility], [address], 571776571 , [place] tel: [phone] [facility] Encounter for screening for respiratory tuberculosis 4 Cynthia White. [address], [place], 370593727 , [place]. tel: [phone] [facility], [address], [place], 487001321 , [place] tel: [phone] [facility] Lab draw (chief complaint) Blood test prior to procedure 4 Cynthia White. [address], [place], 933329931 , [place]. tel: [phone] Referring Provider: Tenisha Leon AL. [facility], [address], [place], 547027199 , [place] tel: [phone] [facility] No Information 3 Cynthia White. [address], [place], 344859072 , [place]. tel: [phone] [facility], [address], [place], 600875368 , [place] tel: [phone] [facility] COVID Test (chief complaint) Encounter for screening for COVID-19 3 Cynthia White. [address], [place], 054746924 , [place]. tel: [phone] [facility], [address], [place], 674463053 , [place] tel: [phone] [facility] Lab Draw (chief complaint) Encounter for antibody response examination 3 Cynthia White. [address], [place], 490690578 , [place]. tel: [phone] [facility], [address] [place] [address], [id number] , [place] tel: [phone] [facility] lab (chief complaint) Other specified disorders of pancreatic internal secretion 3 Cynthia White. [address], [place], 830747553 , [place]. tel: [phone] [facility], [address] [place] [address], [id number] , [place] tel: [phone] [facility] Lab draw (chief complaint) Blood test prior to procedure 3 Cynthia White. [address], [place], 482823993 , [place]. tel: [phone] [facility], [address] [place] [address], [id number] , [place] tel: [phone] [facility] lab draw (chief complaint) Endocrine disorder 3 Cynthia White. [address], [place], 807412494 , [place]. tel: [phone] [facility], [address] [place] [address], [id number] , [place] tel: [phone] [facility] Encounter for screening for COVID-19 3 Visci DO Miguel. [address], [place], 607021209 , [place]. tel: [phone] [facility], [address], 911957080 , [place] tel: [phone] [facility] Lab draw (chief complaint) Blood test prior to procedureEncounter for screening for COVID-19 3 Visci DO Miguel. [address], 863468199 , [place]. tel: [phone] [facility], [address], 571450032 , [place] tel: [phone] [facility] No Information 3 Visci DO Miguel. [address], [place], 038381680 , [place]. tel: [phone] [facility], [address], [place], 506431702 , [place] tel: [phone] [facility] No Information 3 Visci DO Miguel. [address], [place], 715497813 , [place]. tel: [phone] [facility], [address], [place], 378256819 , [place] tel: [phone] [facility] No Information 2 Visci DO Miguel. [address], [place], 110474830 , [place]. tel: [phone] [facility], [address], [place], 339430130 , [place] tel: [phone] [facility] No Information 2 Visci DO Miguel. [address], [place], 725244471 , [place]. tel: [phone] [facility], [address], 783717972 , [place] tel: [phone] [facility] No Information 2 Visci DO Miguel. [address], [place], 604543073 , [place]. tel: [phone] [facility], [address], [place], 360318137 , [place] tel: [phone] [facility] Encounter for screening for respiratory tuberculosis 2 Visci DO Miguel. [address], [place], 340753351 , [place]. tel: [phone] [facility], [address], 548773642 , [place] tel: [phone] [facility] Encounter for screening for respiratory tuberculosis 2 Visci DO Miguel. [address], [place], 429071315 , [place]. tel: [phone] [facility], [address], 544514042 , [place] tel: [phone] [facility] Encounter for screening for respiratory tuberculosis 2 Visci DO Miguel. [address], [place], 722692067 , [place]. tel: [phone] [facility], [address], [place], 411533574 , [place] tel: [phone] [facility] No Information 1 Visci DO Miguel. [address], [place], 307358077 , [place]. tel: [phone] [facility], [address], [place], 406179527 , [place] tel: [phone] [facility] No Information 1 Visci DO Miguel. [address], [place], 068755338 , [place]. tel: [phone] [facility], [address], [place], 149714007 , [place] tel: [phone] [facility] No Information 1 Visci DO Miguel. [address], [place], 621443439 , [place]. tel:[phone] Family History Family Member Type Diagnosis Age [...] type Covered green party ID Authoriza tion(s) [place] [id number] [place] [id number] [place] [id number] [place] [id number] [place] [id number] [place] [id number] [place] [id number] Social History Type Description Quantity Date Captured [...] PRAPARE ASSESSMENT. Due on O due Goal HPV. Due on due Goal Influenza vaccine. Due on Oc [...] Hep A. Due on du e Goal Hepatitis C screening. Due o n [...] 2031 due Goal Influenza vaccine. Due on Wi due Goal Unhealthy drug use screening . Due on due Goal Hep A. Due on du e Goal RLP. Due on due Goal Hep A. Due on du e Goal Influenza vaccine. Due on Wi due Goal Unhealthy drug use screening . Due on due Goal Depression screening. Due on due Goal PRAPARE ASSESSMENT. Due on due Goal Tdap Vaccine. Due on 2031 due Goal HPV. Due on due Goal Hepatitis C screening. Due o n due Goal Tdap due Goal Hep A. Due on du e Goal Depression screening. Due on due Goal Tdap due Goal Unhealthy drug use screening . Due on due Goal Influenza vaccine. Due on Wi due Goal PRAPARE ASSESSMENT. Due on due [...] due Goal HPV. Due on due Goal Depression [...] PRAPARE ASSESSMENT. Due on S due Goal Tdap Vaccine. Due on 2031 [...] Hep A. Due on du e Goal PAP. Due on due Goal Depression [...] due Goal Depression screening. Due on due History Of Present Illness [...]
--- OUTSIDE RECORDS SUMMARY | 2025-03-30 08:50 | XMS_ITS | Encounter Summary ---
Author Organization [facility] Address [address] [facility] [place] [address] Care Team Providers Care Senior Bi Architect Name Role Phone Unavailable Primary Care Provider Unavailabl e Reason for Visit * Reason Comments Routine Visit Encounter Details Date Type Department Care Team (Latest Contact Info) Description 03/30/2025 8:50 AM EDT Routine [facility] [address] [facility] [place] [id number] Christy Schwartz PA [address] [facility] [address] [place], [place] [address] Second trimester ; 27 weeks gestation of ; Gestational diabetes mellitus (GDM), antepartum, gestational diabetes method of control unspecified; Factor 5 Leiden mutation, heterozygous (CMS/HCC); Conceived by in vitro fertilization Social History Tobacco Use Types Packs/Day Years Used Date Smoking Tobacco: Never Assessed Estimated Date of Delivery Comme nts Yes 06/24/2025 Based on Ultraso und Sex and Gender Information Value Date Recorded Sex Assigned at Female 11/24/2024 3:01 PM EST Legal Sex Female 10:22 AM EST Gender Identity Female 11/24/2024 3:01 PM EST Sexual Orientation Not on file documented as of this encounter Last Filed Vital Signs Vital Sign Reading Time Taken Comments Blood Pressure 122/80 03/30/2025 9:26 AM EDT Pulse - - Temperature - - Respiratory Rate - - Oxygen Saturation - - Inhaled Oxygen Concentration - - Weight 104 kg (229 lb) 03/30/2025 9:26 AM EDT Height - - Body Mass Index - - documented in this encounter Progress Notes * Belgica Scherer BOX LINING MACHINE OPERATOR - 03/30/2025 8:50 AM EDT Reason for Appointment: Patient ID: Kevin Conley is a 29 y.o. female who presents for Routine Visit Patient presents today for Return OB appointment. MEDICATIONS Current Outpatient Medications Medication Instructions Alcohol Swabs (Alcohol Prep Pad) 70 % pads 1 Pad, Topical, Daily, Use four times daily to check FSBS. Blood Glucose Monitoring Suppl ([employer] Glucometer) w/Device kit 1 kit, Does not apply, Daily, Use four times daily to check FSBS. In the morning prior to breakfast & 1 hour after each meal for a total of 4times daily. insulin glargine (Lantus SoloStar) 100 UNIT/ML pen Subcutaneous insulin syringe 29G X 1/2 0.5 mL misc Use 2 syringes in the morning for insulin dosage and 2 syringes in the Evening for insulin dosage. Total of 4 syringes daily needed. ALLERGIES No Known Allergies PROBLEMS Active Ambulatory Problems Diagnosis Date Noted No Active Ambulatory Problems Resolved Ambulatory Problems Diagnosis Date Noted No Resolved Ambulatory Problems No Additional Past Medical History HISTORY PAST MEDICAL HISTORY SOCIAL HISTORY No past medical history on file. Social History Tobacco Use Smoking status: Not on file Smokeless tobacco: Not on file Substance Use Topics Alcohol use: Not on file Drug use: Not on file FAMILY HISTORY No family history on file. SURGICAL HISTORY No past surgical history on file. REVIEW OF SYSTEMS Review of Systems: Review of Systems OBJECTIVE Objective: OBGyn Exam Vitals: There is no height or weight on file to calculate BMI. BP: 122/80 No LMP recorded. Patient is . ASSESSMENT & PLAN ICD-10-CM 1. Second trimester Z34.92 2. 27 weeks gestation of Z3A.27 3. Gestational diabetes mellitus (GDM), antepartum, gestational diabetes method of control unspecified O24.419 US OB follow up transabdominal approach US biophysical profile w non stress test 4. Factor 5 Leiden mutation, heterozygous (CMS/HCC) D68.51 US OB follow up transabdominal approach US biophysical profile w non stress test 5. Conceived by in vitro fertilization Z78.9 US OB follow up transabdominal approach US biophysical profile w non stress test Return OB: Patient presents today for a routine obstetrics appointment. Patient is currently 27w5d . Patient states she is doing well but has complaints of being tired due to current . Patient has verbalizes frequent movement. labor precautions was discussed/given and patient was instructed to perform kick counts three times a day. Orders Placed This Encounter Procedures US OB follow up transabdominal approach US biophysical profile w non stress test Follow Up: Patient is to return to office in 2 week for routine OB appointment. Patient continues to follow closely with MFM and has telehealth visit today to review glucose logs. She continues on Lantus and doing well. No complaints today. Given orders for NST/BPP and has scheduled growth ultrasound with MFM. Will obtain Hgb / hematocrit and platelets today. Documented by Belgica Scherer NP on behalf of: Belgica Scherer NP documented in this encounter Plan of Treatment Upcoming Encounters Date Type Department Care Team (Late st Contact Info) Description 04/18/2025 10:10 AM EDT Routine [facility] [address] [place] [address] Cain Donaldson, DO [address] [place] [address] Scheduled Orders Name Type Priority Associated Diagnoses Orde r Schedule US OB follow up transabdominal approach Imaging Routine Gestational diabetes mellitus (GDM), antepartum, gestational diabetes method of control unspecified Factor 5 Leiden mutation, heterozygous (CMS/HCC) Conceived by in vitro fertilization Expected: 03/30/2025, Expires: 07/31/2025 US biophysical profile w non stress test Imaging Routine Gestational diabetes mellitus (GDM), antepartum, gestational diabetes method of control unspecified Factor 5 Leiden mutation, heterozygous (CMS/HCC) Conceived by in vitro fertilization Expected: 03/30/2025 (Approximate), Expires: 09/30/2025 documented as of this encounter Goals Goal Patient Goal Type Associated Problems Recent Progress Patient-Stated? Author Reminders Care Plan OB Reminders No Open Scheduling, Background documented as of this encounter Visit Diagnoses Diagnosis Second trimester state, incidental 27 weeks gestation of Gestational diabetes mellitus (GDM), antepartum, gestational diabetes method of control unspecified Factor 5 Leiden mutation, heterozygous (CMS/HCC) Conceived by in vitro fertilization documented in this encounter Additional Health Concerns Active Problems Noted Date Diagnosed Date OB Reminders 11/26/2024 documented as of this encounter
--- OUTSIDE RECORDS SUMMARY | 2025-03-30 13:30 | XMS_ITS | Encounter Summary ---
Author Organization [facility] Address [id number] [address] [place] [address] Care Team Providers Care Rhia Name Role Phone Unavailable Primary Care Provider Unavailabl e Encounter Details Date Type Department Care Team (Late st Contact Info) Description 03/30/2025 1:30 PM EDT Telemedicine Maternal- Medicine at [facility] [address] [place] [phone] Sintia Martinez, MANAGER INCOME TAX-AUDIO EXPERIENCE EXPERT [address] [place] [address] Insulin controlled gestational diabetes mellitus (GDM) in [...] of this encounter Progress Notes * Sintia Michelle, MANAGER INCOME TAX-AUDIO EXPERIENCE EXPERT - 03/30/2025 1:30 PM EDT REASON FOR OFFICE VISIT: Video Visit via Real-time Synchronous Audiovisual Provider Location: [facility]- MEDICINE AT [address] [address] Patient Location: Patient's home Video Visit Consent [...] that there are some limitations compared to vlzr-za-vdds evaluations. The patient consented to the presence [...] pain. +FM. She is being followed at [facility] due to GDMA2. States she is following [...] each meal., Disp: , Rfl: blood-glucose meter misc, 4 (four) times a day. Use to [...] route., Disp: , Rfl: lancets (LANCETS,ULTRA THIN) misc, Use to check blood sugar 4 times daily. Fasting in the morning, and 1 hour after each meal., Disp: , Rfl: PNV no.153/FA/om3/dha/epa/fish ( GUMMIES ORAL), Take 2 tablets by mouth in the morning., Disp: , Rfl: LABS: Lab Results Component Value Date CREATININE 0.73 01/06/2016 Lab Results Component Value Date TSH 3.31 11/24/2020 No results found for: [id number] Lab Results Component Value Date CREATININE 0.73 [...] 6% has the lowest risk for LGA infant SUMMARY/RECOMMENDATION: The following is a summary of [...] values to us weekly by e-mail to: or by fax to: [phone] TIME OF CONSULTATION: 15 minutes with the patient, >50% in discussion and counseling, coordination of care which was [id number], review of records and communication back to referring provider. HOWARD Whitman 03/30/25 1344 documented in this encounter Plan of Treatment Upcoming Encounters Date Type Department Care Team (Late st Contact Info) Description 04/14/2025 8:00 AM EDT Appointment Maternal Medicine [place] [address] [facility] 4 [place] [address] 04/25/2025 11:30 AM EDT Telemedicine Maternal- Medicine at [facility] [address] [place] [address] Devika Pulido, PAGian [address] [address] documented as of this encounter Visit Diagnoses Diagnosis Insulin controlled gestational diabetes mellitus (GDM) in second trimester- Primary Recurrent major depressive disorder, in partial remission Prediabetes in mother during documented in this encounter Additional Health Concerns Assessment Noted Time PHQ-9 Depression Total Score: 2 07/03/20 16 9:00 AM EDT documented as of this encounter
--- OUTSIDE RECORDS SUMMARY | 2025-04-11 16:44 | XMS_ITS | Encounter Summary ---
Author Organization [employer] [facility] tem Address [id number] [address] [place] [address] Care Team Providers Care Barker Operator Name Role Phone Unavailable Primary Care [...] 04/14/2025 8:00 AM EDT Appointment Maternal Medicine [place] [address] [place] [address] 04/25/2025 11:30 AM EDT Telemedicine Maternal- Medicine at [facility] [address] [place] [id number] Devika Pulido, JASON [address] [address] documented as of this encounter Visit Diagnoses Not on filedocumented in this encounter Additional Health Concerns Assessment Noted Time PHQ-9 Depression Total Score: 2 07/03/20 16 9:00 AM EDT documented as of this encounter
--- OUTSIDE RECORDS SUMMARY | 2025-04-11 16:44 | XMS_ITS | Clinical Summary ---
Author Organization [facility] Address [address] [place] [address] Care Team Providers Care Offal Roller Name Role Phone Unavailable Primary Care Provider Unavailabl e Encounters Date Type Department Care Team Description 02/08/2025 6:04 PM EDT - 02/08/2025 11:59 PM EDT Hospital Encounter [facility] [address] [place] [address] Discharge Disposition: Home or Self Care from [...] Cutoff Neural Tube Defects Risks 1:1030 < 1:04114 1:250 Comments: The risk of an open neural tube defect is less than the screening cut-off. This test was developed and its performance characteristics determined by [facility]. It has not been cleared or approved [...] LABORATORY Comment: (NOTE) Initial sample Performed By: [facility] [address] [place] [address] Probation Manager: Jose Joseph MD, PhD CLIA Number: [id number] 02/08/2025 6:07 PM EDT 02/08/2025 6:09 PM EDT Christy Schwartz PA-C CHEMISTRY ORDERABLES Final Resu lt [facility] [address] [place], [place] [id number] [place] [address] [facility] [address] [phone] * Hepatitis C Antibody (12/23/2024 6:10 PM EST) Hepatitis C Ab NONREACTIVE NONREACTIVE 12/23/19 6:10 PM EST [facility] Comment: The hepatitis C procedure used in [...] ORDERABLES Fin al Result Performing Organization Address City/[facility]/ZIP Co de Phone Number [facility] [address] [place] [address], [facility] [phone] [employer] [address] [place] [address], [facility] [phone] * HIV Screen (12/23/2024 6:10 PM EST) HIV Ag/Ab NONREACTIVE NONREACTIVE 12/23/2024 6:10 PM EST [employer] Comment: No laboratory evidence of HIV infection. If acute HIV infection is suspected, consider testing for HIV-1 RNA. 12/23/2024 6:10 PM EST 12/23/2024 6:12 PM EST Cain Donaldson MD IMMUNOLOGY ORDERABLES Fin al Result Performing Organization Address [facility] Co de Phone Number [facility] [address] [place] [address], [facility] [phone] [employer] [address] [place] [address], [facility] [phone] from Last 3 Months or Most Recently Relevant to Health Maintenance Insurance
--- OUTSIDE RECORDS SUMMARY | 2025-04-11 16:44 | XMS_ITS | Encounter Summary ---
Author Organization [facility] Address [address] [place] [address] Care Team Providers Care Gallery Or Museum Guide Name Role Phone Unavailable Primary Care Provider Unavailabl e Encounter Details Date Type Department Care Team (Late Contact Info) Description 11/26/2024 Abstract [facility] OB [address] [place] [place] [phone] Cain Donaldson DO [address] [place] [address] Karin [place], [place] [phone] Social History Tobacco Use Types Packs/Day Years [...] AM EDT Routine [facility] OB [address] [place] [place] [address] Cain Donaldson DO [facility] In[place], [place] [phone] documented as of this encounter Goals Goal Patient Goal Type Associated Problems Recent Progress Patient-Stated? Author Reminders Care Plan OB Reminders No Open Scheduling, Background documented as of this encounter Visit Diagnoses Not on filedocumented in this encounter Additional Health Concerns Active Problems Noted Date Diagnosed Date OB Reminders 11/26/2024 documented as of this encounter
--- OUTSIDE RECORDS SUMMARY | 2025-04-11 16:44 | XMS_ITS | Encounter Summary ---
Author Organization [facility] Address [address] [place] [address] Care Team Providers Care Anchor Operator Name Role Phone Unavailable Primary Care Provider Unavailabl e Encounter Details Date Type Department Care Team (Late Contact Info) Description 12/27/2024 Abstract [facility] BCP OB [address] [facility] [phone] Cain Donaldson DO [address] [place] [address] Karin [place], [place] [phone] Social History Tobacco Use Types Packs/Day Years [...] AM EDT Routine [facility] BCP OB [address] [facility] [address] Cain Donaldson DO [facility] In[place], [place] [phone] documented as of this encounter Goals Goal Patient Goal Type Associated Problems Recent Progress Patient-Stated? Author Reminders Care Plan OB Reminders No Open Scheduling, Background documented as of this encounter Visit Diagnoses Not on filedocumented in this encounter Additional Health Concerns Active Problems Noted Date Diagnosed Date OB Reminders 11/26/2024 documented as of this encounter
--- OUTSIDE RECORDS SUMMARY | 2025-04-11 16:44 | XMS_ITS | Encounter Summary ---
Author Organization [facility] Address [address] [place] [address] Care Team Providers Care Accounting Machine Servicer Name Role Phone Unavailable Primary Care Provider Unavailabl e Encounter Details Date Type Department Care Team (Late st Contact Info) Description 11/12/2024 Abstract [facility] OB [address] [facility] [place] [phone] Cain Donaldson DO [address] [place] [address] Karin [place], [facility] Social History Tobacco Use Types [...] AM EDT Routine [facility] BCP OB [address] [facility] [place] [address] Cain Donaldson, [facility] [place] [address] documented as of this encounter Visit Diagnoses Not on filedocumented in this encounter
--- OUTSIDE RECORDS SUMMARY | 2025-04-11 16:44 | XMS_ITS | Encounter Summary ---
Author Organization [facility] tem Address [id number] [address] [place] [address] Care Team Providers Care Single Resource Boss Name Role Phone Unavailable Primary Care Provider Unavailabl e Encounter Details Date Type Department Care Team (Late st Contact Info) Description 02/17/2025 Orders Only Maternal- Medicine at [facility] [address] [place] [phone] Christy Prado LPN Insulin controlled gestational diabetes mellitus (GDM) in second trimester; Prediabetes in mother during ; 20 weeks gestation of ; Choroid plexus cyst of fetus affecting care of mother, antepartum, single or unspecified fetus; Heterozygous factor V Leiden affecting in second trimester, antepartum; Severe obesity due to excess calories affecting , antepartum ([facility]); Bipolar disorder, in full remission, most recent [...] 04/14/2025 8:00 AM EDT Appointment Maternal Medicine [place] [address] [facility] [address] [place] [phone] 04/25/2025 11:30 AM EDT Telemedicine Maternal- Medicine at [facility] [address] [place] [address] Devika Pulido PA-C [address] [address] documented as of this encounter Procedures Procedure [...] due to excess calories affecting , antepartum ([facility]) Bipolar disorder, in full remission, most recent [...] due to excess calories affecting , antepartum ([facility]) Bipolar disorder, in full remission, most recent episode depressed documented in this encounter Additional Health Concerns Assessment Noted Time PHQ-9 Depression Total Score: 2 07/03/20 16 9:00 AM EDT documented as of this encounter
--- OUTSIDE RECORDS SUMMARY | 2025-04-11 16:45 | XMS_ITS | Clinical Summary ---
Author Organization [facility] Address [address] [place] [address] Care Team Providers Care Firer Powerhouse Name Role Phone Unavailable Primary Care Provider [...] AM EDT Routine [facility] BCP OB [address] [facility] [place] [address] Christy Schwartz PA Second trimester ; 27 weeks gestation of ; Gestational diabetes mellitus (GDM), antepartum, gestational diabetes method of control unspecified; Factor 5 Leiden mutation, heterozygous (CMS/HCC); Conceived by in vitro fertilization 03/30/2025 Bamboo flowsheet [facility] OB [address] [facility] [place] [address] Christy Schwartz PA 03/30/2025 Travel 03/18/2025 Abstract [facility] OB [address] [facility] [place] [address] Yue Dumont MA 03/03/2025 8:40 AM EDT Routine [facility] OB [address] [facility] [place] [address] Alfredo Donaldson DO 23 weeks gestation of ; Second trimester ; induced hypertension, antepartum; Insulin controlled gestational diabetes mellitus (GDM) during , antepartum 03/03/2025 Bamboo flowsheet [facility] OB [address] [place] [address] [place] [address] Alfredo Donaldson DO 03/02/2025 Travel 01/27/2025 Orders Only [facility] OB [address] [facility] [place] [address] Damaris Lopez LPN 01/20/2025 8:30 AM EDT Routine [facility] OB [address] [facility] [place] [address] Christy Schwartz PA Well woman exam with routine gynecological exam; 17 weeks gestation of ; Second trimester ; Exposure to STD; Vaginal discharge 01/20/2025 Clinisync Result Encounter NOMS External Department Unsolicited Christy Schwartz PA 01/20/2025 External Result Encounter NOMS External Department Unsolicited Christy Schwartz PA 01/20/2025 Bamboo flowsheet [facility] OB [address] [place] [address] Christy Schwartz PA 01/19/2025 Travel 01/10/2025 Abstract [facility] B[facility] OB [address] [facility] [place] [address] Alfredo Donaldson DO from Last 3 Months Social History Tobacco [...] 10:10 AM EDT Routine [facility] BCP OB [address] [place], [place] [address] [place] [phone] Alfredo Donaldson DO [address] [place] [address] [place] [address] Health Maintenance Due Date Last Done Comments [...] PM EDT Narrative 04/05/2025 6:01 [place] [address] Ultrasound Report Signed Patient: KEVIN WHITE MR#: [id number] : 1995 Acct:[id number] Age/Sex: 29 / F ADM Date: 04/05/25 Loc: [place] [address]: Belgica Scherer Ordering Physician: Alfredo Donaldson D.O. Date of Service: 04/05/25 Procedure(s): US OB BPP w non-stress Accession Number(s): [id number] cc: Alfredo Donaldson D.O. [place] [address] Patient Name: KEVIN WHITE MRN: [id number] date: 1995 Sex: F Assigned Patient Location: [facility] Current Patient Location: [facility] Accession/Order Number: [id number] Exam Date: 04/05/2025 17:57 Report Date: 04/05/2025 [...] Steen M.D. 04/05/2025 5:58 PM Dictation Location: [place] [address] Electronically authenticated by: [id number] Y Date: 04/05/2025 17:58 Dictated By: Zion Steen D.O. Signed By: 04/05/25 1804 DD/ 1750 TD/TT: Helper Coordinator: Procedure Note Radiology, Radiologist, - 04/05/2025 [place] [address] Ultrasound Report Signed Patient: KEVIN WHITEMR#: [id number] : 1995Acct:[id number] Age/Sex: 29 / FADM Date: 04/05/25 Loc: [facility] 250-[address]: Belgica Scherer Ordering Physician: Alfredo Donaldson D.O. Date of Service: 04/05/25 Procedure(s): US OB BPP w non-stress Accession Number(s): [id number] cc: Alfredo Donaldson D.O. [place] [address] Patient Name: KEVIN WHITE MRN: [id number] date: 1995 Sex: F Assigned Patient Location: [facility] Current Patient Location: [facility] Accession/Order Number: [id number] Exam Date: 04/05/2025 17:57 Report Date: 04/05/2025 [...] Steen M.D. 04/05/2025 5:58 PM Dictation Location: [place] [address] Electronically authenticated by: [id number] Y Date: 7:58 Dictated By: Zion Steen D.O. Signed By:04/05/25 180 DD/ 57 TD/TT: Helper Coordinator: us Alfredo Mendoza DO [facility] Final Result * [...] PM EDT THIS EXAM WAS PERFORMED AT [facility] NAME: CINDY GRECO : 1995 SEX: F Accession Number: [id number] ORDERING PHYSICIAN: JAIDA RITTER REFERRING PHYSICIAN: ALFREDO DONALDSON Coding ----- --------- Procedures 34459: Ultrasound, uterus, real time with image documentation, and maternal evaluation plus detailed anatomic examination, transabdominal approach;single or first gestation 21916: Transvaginal Ultrasound (OB) 84462: Echocardiography, , cardiovascular system, real time with image documentation (2D), with or without M-mode recording Indication ----- --------- Screening for Anatomic Survey, Screening for cervical length, Screening for congenital cardiac abnormality, resulting from assisted reproductive technology, Gestational diabetes, Obesity in , Depression, Supervision of high risk (LT Choroid plexus cyst) History ----- --------- OB History 2. Para 0 [id number] Maternal Assessment ----- --------- Physical Exam Height [...] 0 lb 14 oz EFW by Hadlock ([id number]) Head / Face / Neck Biometry: Cephalic index 0.69 <1% Nicolaides Allied Health Instructor 6.4 mm CM 6.2 mm 82% Nicolaides [...] Thorax 4-chamber view. RVOT view. LVOT view. 9-yliakt-odrvlsb view. Diaphragm. Abdomen Cord insertion. Spine: Cervical [...] suboptimal RVOT view suboptimal 3-vessel view normal 4-pzrfvo-mklriux view suboptimal Aortic arch view normal Ductal [...] today's exam. Recommendations ----- --------- Please see [facility] documentation from today. The patient is scheduled in four week(s) to complete anatomic survey and echocardiogram. Subsequent follow up or other follow up as clinically determined by primary OB provider unless otherwise specified by [facility]. Results forwarded to ordering provider so they can follow up with the patient as necessary. The copy-to physician of this order is ALFREDO Palacios The ordering physician of this order is JAIDA Vicente Procedure Note Radiology, Radiologist, MD - 02/09/2025 THIS EXAM WAS PERFORMED AT [facility] NAME: CINDY GRECO : 1995 SEX: F Accession Number: [id number] ORDERING PHYSICIAN: JAIDA RITTER REFERRING PHYSICIAN: ALFREDO DONALDSON Coding ----- --------- Procedures 04189: Ultrasound, uterus, real time with imagedocumentation, and maternal evaluation plus detailed anatomic examination, transabdominalapproach;single or first gestation 24922: Transvaginal Ultrasound (OB) 94773: Echocardiography, , cardiovascular system, real timewith image documentation (2D), with or without M-mode recording Indication ----- --------- Screening for Anatomic Survey, Screening for cervical length, Screeningfor congenital cardiac abnormality, resulting from assisted reproductive technology, Gestational diabetes, Obesity inpregnancy, Depression, Supervision of high risk (LT Choroid plexus cyst) History ----- --------- OB History 2. Para 0 [id number] Maternal Assessment ----- --------- Physical Exam Height [...] 0 lb 14 oz EFW by Hadlock ([id number]) Head / Face / Neck Biometry: Cephalic index 0.69 <1% Nicolaides Allied Health Instructor 6.4 mm CM 6.2 mm 82% Nicolaides [...] Thorax 4-chamber view. RVOT view. LVOT view. 5-jioyux-siwxtxyuvby. Diaphragm. Abdomen Cord insertion. Spine: Cervical spine. [...] suboptimal RVOT view suboptimal 3-vessel view normal 2-xqreqa-ybfoiuf view suboptimal Aortic arch view normal Ductal [...] today's exam. Recommendations ----- --------- Please see [facility] documentation from today. The patient is scheduled in four week(s) to complete anatomic survey andfetal echocardiogram. Subsequent follow up or other follow up as clinically determined byprimary OB provider unless otherwise specified by M. Results forwarded to ordering provider so they can follow up with thepatient as necessary. The copy-to physician of this order is Dr. MENDOZA,ALFREDO R The ordering physician of this order is JAIDA Vicente us Alfredo Donaldson DO IMG OB US PROCEDURES Final Resul t * RECURRENT VAGINITIS (HTRX) (01/20/2025 9:56 AM EDT) [facility] ATOPOBIUM VAGINAE 0.000 19.961 - 24.689 ppm 01/21/2025 6:29 AM EDT [facility] ATOPOBIUM VAGINAE Not Detected 19.961 - 24.689 ppm 01/21/2025 6:29 AM EDT [facility] BVAB 2,3 (BACTERIAL VAGINOSIS ASSOCIATED BACTERIA 2, 3); MOBILUNCUS SPP 0.000 19.961 - 24.689 ppm 01/21/2025 6:29 AM EDT [facility] BVAB 2,3 (BACTERIAL VAGINOSIS ASSOCIATED BACTERIA 2, 3); MOBILUNCUS SPP Not Detected 19.961 - 24.689 ppm 01/21/2025 6:29 AM EDT [facility] DEAN ALBICANS, PARAPSILOSIS, TROPICALIS 0.000 19.961 - 30.770 ppm 01/21/2025 6:29 AM EDT [facility] DEAN ALBICANS, PARAPSILOSIS, TROPICALIS Not Detected 19.961 - 30.770 ppm 01/21/2025 6:29 AM EDT [facility] DEAN GLABRATA 0.000 23.000 - 32.138 ppm 01/21/2025 6:29 AM EDT [facility] DEAN GLABRATA Not Detected 23.000 - 32.138 ppm 01/21/2025 6:29 AM EDT [facility] DEAN KRUSEI 0.000 23.000 - 32.271 ppm 01/21/2025 6:29 AM EDT [facility] DEAN KRUSEI Not Detected 23.000 - 32.271 ppm 01/21/2025 6:29 AM EDT [facility] CHLAMYDIA TRACHOMATIS 0.000 23.000 - 31.467 ppm 01/21/2025 6:29 AM EDT [facility] CHLAMYDIA TRACHOMATIS Not Detected 23.000 - 31.467 ppm 01/21/2025 6:29 AM EDT [facility] GARDNERELLA VAGINALIS 0.000 19.961 - 24.689 ppm 01/21/2025 6:29 AM EDT [facility] GARDNERELLA VAGINALIS Not Detected 19.961 - 24.689 ppm 01/21/2025 6:29 AM EDT [facility] MEGASPHAERA (TYPES 1, 2) 0.000 19.961 - 24.689 ppm 01/21/2025 6:29 AM EDT [facility] MEGASPHAERA (TYPES 1, 2) Not Detected 19.961 - 24.689 ppm 01/21/2025 6:29 AM EDT [facility] NEISSERIA GONORRHOEAE 0.000 23.000 - 32.117 ppm 01/21/2025 6:29 AM EDT [facility] NEISSERIA GONORRHOEAE Not Detected 23.000 - 32.117 ppm 01/21/2025 6:29 AM EDT [facility] TRICHOMONAS VAGINALIS 0.000 23.000 - 32.119 ppm 01/21/2025 6:29 AM EDT [facility] TRICHOMONAS VAGINALIS Not Detected 23.000 - 32.119 ppm 01/21/2025 6:29 AM EDT [facility] MYCOPLASMA GENITALIUM 0.000 19.961 - 24.689 ppm 01/21/2025 6:29 AM EDT [facility] MYCOPLASMA GENITALIUM Not Detected 19.961 - 24.689 ppm 01/21/2025 6:29 AM EDT [facility] Tissue 01/20/2025 9:56 AM EDT 01/21/2025 1:43 AM EDT us Christy MCKOY LAB BLOOD ORDERABLES Final Resul t [facility] [address] [place] [address] * IGP,APTIMA HPV,AGE GDLN (01/20/2025 8:29 AM EDT) Pathologist [facility] AGE GDLN AC TESTING Note . [facility] Comment: TESTS RESULT FLAG UNITS REF RANGE LAB Clinician Provided Cytology Information Source.............Cervix Other.............. No. of containers..01 ThinPrep Vial Age Algo AC Joann... 30 FLAG LEGEND: L-Low Normal,H-High Normal,LL-Alert Low,HH-Alert High <-Panic Low,>-Panic High,A-Abnormal,AA-Critical Abnormal Performed at: 01 =G [address] [address] Tessy Corea MD, IGP, APTIMA HPV, RFX 16/18,45 Note . [facility] Comment: TESTS RESULT FLAG UNITS REF RANGE LAB DIAGNOSIS: 02 NEGATIVE FOR INTRAEPITHELIAL LESION OR MALIGNANCY. Specimen adequacy: 02 Satisfactory for evaluation. No endocervical component is identified. Performed by: 02 Hannah Ambrose End Finder Twisting Department (ASCP) . 02 Note: Note 02 The [...] <-Panic Low,>-Panic High,A-Abnormal,AA-Critical Abnormal Performed at: [address] [address] Tessy Corea MD, HPV APTIMA Negative Negative [facility] Comment: This nucleic acid amplification test detects fourteen high- risk HPV types (16,18,31,33,35,39,45,51,52,56,58,59,66,68) without differentiation. Performed at: =[address] [id number] Business Performance Analyst: Tessy Corea MD, Phone: [phone] Performed at: [address] [id number] Business Performance Analyst: Tessy Corea MD, Phone: [phone] 01/20/2025 8:29 AM EDT 01/20/2025 12:46 PM [...] Date Diagnosed Date OB Reminders 11/26/2024 Insurance [facility]
--- OUTSIDE RECORDS SUMMARY | 2025-04-11 16:45 | XMS_ITS | Encounter Summary ---
Author Organization [facility] Address [address] [place] [address] Care Team Providers Care Senior Product Consultant Name Role Phone Unavailable Primary Care Provider Unavailabl e Encounter Details Date Type Department Care Team (Late Contact Info) Description 01/27/2025 Orders Only [facility] BCP OB [address] [place] [address] Damaris Lopez LPN [address] [facility] [place] [address] Social History Tobacco Use Types Packs/Day Years [...] AM EDT Routine [facility] BCP OB [address] [place] [address] Cain Donaldson DO [address] [facility] [address] [place], [place] [address] documented as of this encounter Goals Goal [...]
--- OUTSIDE RECORDS SUMMARY | 2025-04-11 16:45 | XMS_ITS | Encounter Summary ---
Author Organization [facility] Address [address] [place] [address] Care Team Providers Care Aviation Medicine Specialist Name Role Phone Unavailable Primary Care Provider Unavailabl e Encounter Details Date Type Department Care Team (Late st Contact Info) Description 03/18/2025 Abstract N[facility] OB [address] [facility] [place] [phone] Yue Dumont MA Social History Tobacco Use [...] Description 04/18/2025 10:10 AM EDT Routine NOMS [facility] OB [address] [place] [address] [place] [phone] Cain Donaldson DO [address] [facility] [place] [address] documented as of this encounter Goals Goal Patient Goal Type Associated Problems Recent Progress Patient-Stated? Author Reminders Care Plan OB Reminders No Open Scheduling, Background documented as of this encounter Visit Diagnoses Not on filedocumented in this encounter Additional Health Concerns Active Problems Noted Date Diagnosed Date OB Reminders 11/26/2024 documented as of this encounter
--- OUTSIDE RECORDS SUMMARY | 2025-04-11 16:45 | XMS_ITS | Encounter Summary ---
Author Organization [facility] tem Address [id number] [address] [place] [address] Care Team Providers Care Differential Specialist Name Role Phone Unavailable Primary Care Provider Unavailabl e Encounter Details Date Type Department Care Team (Late Contact Info) Description 12/30/2024 Orders Only Maternal- Medicine at [facility] [address] [place] [address] Ref Prov, [place] [address] Social History Tobacco Use Types Packs/Day Years [...] 04/14/2025 8:00 AM EDT Appointment Maternal Medicine [place] [address] [facility] [address] [place] [phone] 04/25/2025 11:30 AM EDT Telemedicine Maternal- Medicine at [facility] [address] [place] [address] Devika Pulido, JASON [address] [address] documented as of this encounter Visit Diagnoses Not on filedocumented in this encounter Additional Health Concerns Assessment Noted Time PHQ-9 Depression Total Score: 2 07/03/20 16 9:00 AM EDT documented as of this encounter
--- OUTSIDE RECORDS SUMMARY | 2025-04-11 16:45 | XMS_ITS | Encounter Summary ---
Author Organization [facility] tem Address [id number] [address] [place] [address] Care Team Providers Care Certified Legal Investigator Name Role Phone Unavailable Primary Care Provider Unavailabl e Encounter Details Date Type Department Care Team (Late st Contact Info) Description 01/27/2025 Orders Only Maternal- Medicine at [facility] [address] [place] [phone] Sintia Martinez, WOODWORKING MACHINE OPERATOR-BILLING CLERK [address] [place] [address] Social History Tobacco Use Types Packs/Day Years [...] 04/14/2025 8:00 AM EDT Appointment Maternal Medicine [place] [address] [facility] [address] [place] [address] 04/25/2025 11:30 AM EDT Telemedicine Maternal- Medicine at [facility] [address] [place] [address] Devika Pulido, PA-C [address] [address] documented as of this encounter Visit Diagnoses Not on filedocumented in this encounter Additional Health Concerns Assessment Noted Time PHQ-9 Depression Total Score: 2 07/03/20 16 9:00 AM EDT documented as of this encounter
--- OUTSIDE RECORDS SUMMARY | 2025-04-11 16:45 | XMS_ITS | Encounter Summary ---
Author Organization [facility] Address [address] [place] [address] Care Team Providers Care Cattle Brander Name Role Phone Unavailable Primary Care Provider Unavailabl e Encounter Details Date Type Department Care Team (Late Contact Info) Description 01/10/2025 Abstract [facility] BCP OB [address] [facility] [place] [phone] Cain Donaldson DO [address] [place] [address] Karin [place], [place] [phone] Social History Tobacco Use Types Packs/Day Years [...] AM EDT Routine NOMS BCP OB [address] [facility] [place] [phone] Cain Donaldson DO [facility] In[place], [place] [address] documented as of this encounter Goals Goal Patient Goal Type Associated Problems Recent Progress Patient-Stated? Author Reminders Care Plan OB Reminders No Open Scheduling, Background documented as of this encounter Visit Diagnoses Not on filedocumented in this encounter Additional Health Concerns Active Problems Noted Date Diagnosed Date OB Reminders 11/26/2024 documented as of this encounter
--- OUTSIDE RECORDS SUMMARY | 2025-04-11 16:45 | XMS_ITS | Encounter Summary ---
Author Organization [facility] Address [address] [place] [address] Care Team Providers Care Road Monkey Name Role Phone Unavailable Primary Care Provider [...] [address] [facility] [place] [phone] Cain Donaldson, DO [address] [facility] [place] [address] documented as of this encounter Goals Goal Patient Goal Type Associated Problems Recent Progress Patient-Stated? Author Reminders Care Plan OB Reminders No Open Scheduling, Background documented as of this encounter Visit Diagnoses Not on filedocumented in this encounter Additional Health Concerns Active Problems Noted Date Diagnosed Date OB Reminders 11/26/2024 documented as of this encounter
--- OUTSIDE RECORDS SUMMARY | 2025-04-11 16:45 | XMS_ITS | Encounter Summary ---
Author Organization [facility] Address [address] [facility] [address] [place] [address] Care Team Providers Care Truck Sales Representative Name Role Phone Unavailable Primary Care Provider Unavailabl e Encounter Details Date Type Department Care Team (Late Contact Info) Description 03/30/2025 Bamboo flowsheet [facility] B[facility] OB [address] [place] [address] [place] [phone] Christy Schwartz PA [address] [place] [address] Dr [place], [facility]11 Social History Tobacco Use Types [...] AM EDT Routine [facility] BCP OB [address] [facility] [place] [address] Cain Donaldson DO [address] [place] [address] Dr [place], [place] [phone] documented as of this encounter Goals Goal Patient Goal Type Associated Problems Recent Progress Patient-Stated? Author Reminders Care Plan OB Reminders No Open Scheduling, Background documented as of this encounter Visit Diagnoses Not on filedocumented in this encounter Additional Health Concerns Active Problems Noted Date Diagnosed Date OB Reminders 11/26/2024 documented as of this encounter
--- OUTSIDE RECORDS SUMMARY | 2025-04-11 16:45 | XMS_ITS | Encounter Summary ---
Author Organization [facility] tem Address [id number] [address] [place] [address] Care Team Providers Care Design Eng Name Role Phone Unavailable Primary Care Provider Unavailabl e Encounter Details Date Type Department Care Team (Late st Contact Info) Description 04/11/2025 Orders Only Maternal- Medicine at [facility] [address] [place] [phone] Devika Pulido PA-C [address] [address] Social History Tobacco Use Types Packs/Day Years [...] 04/14/2025 8:00 AM EDT Appointment Maternal Medicine [place] [address] [facility] 4 [place] [address] 04/25/2025 11:30 AM EDT Telemedicine Maternal- Medicine at [facility] [address] [place] [phone] Devika Pulido, PAMoniqueC [address] [address] documented as of this encounter Visit Diagnoses Not on filedocumented in this encounter Additional Health Concerns Assessment Noted Time PHQ-9 Depression Total Score: 2 07/03/20 16 9:00 AM EDT documented as of this encounter
--- OUTSIDE RECORDS SUMMARY | 2025-04-11 16:45 | XMS_ITS | Encounter Summary ---
Author Organization [facility] [employer] [facility] Address [facility] [id number] [address] [place] [address] Care Team Providers Care Client Resolution Specialist Name Role Phone Unavailable Primary Care Provider Unavailabl e Reason for Referral * Medication Prior Authorization - Closed Specialty Diagnoses / Procedures Referred By Contgonzalez t Referred To Contact Diagnoses Insulin controlled gestational diabetes mellitus (GDM) in second trimester Prediabetes in mother during Devika Pulido PA-C [address] [email or web address] [address] [address] Phone: tel: fax: Referral ID Status Reason Start Date Expiration Date Visits Re quested Visits Authorized [id number] Closed 1 1 Encounter Details Date Type Department Care Team (Latest Contact Info) Description 04/11/2025 Remote Patient Monitoring Maternal- Medicine at [facility] [address] [place] [phone] Devika Pulido PA-C [address] [phone] Insulin controlled gestational diabetes mellitus (GDM) in second trimester; Prediabetes in mother during Social History Tobacco [...] as of this encounter Progress Notes * Devika Pulido PA-C - 04/11/2025 12:33 PM EDT BG levels evaluated - insulin adjusted Devika Pulido PA-C 04/11/25 1234 documented in this encounter Plan of Treatment Upcoming Encounters Date Type Department Care Team (Late st Contact Info) Description 04/14/2025 8:00 AM EDT Appointment Maternal Medicine [place] [address] [facility] 4 [place] [address] 04/25/2025 11:30 AM EDT Telemedicine Maternal- Medicine at [facility] [address] [place] [address] Devika Pulido PA-C [address] [address] documented as of this encounter Visit Diagnoses Diagnosis Insulin controlled gestational diabetes mellitus (GDM) in second trimester Prediabetes in mother during documented in this encounter Additional Health Concerns Assessment Noted Time PHQ-9 Depression Total Score: 2 07/03/20 16 9:00 AM EDT documented as of this encounter
--- OUTSIDE RECORDS SUMMARY | 2025-04-11 16:45 | XMS_ITS | Encounter Summary ---
Author Organization [facility] Address [address] [place] [address] Care Team Providers Care Laboratory Animal Caretaker Name Role Phone Unavailable Primary Care Provider Unavailabl e Encounter Details Date Type Department Care Team (Late Contact Info) Description 04/05/2025 Clinisync Result Encounter NOMS External Department Unsolicited Alfredo Donaldson, DO [address] [place] [address] Social History Tobacco Use Types Packs/Day Years [...] Routine [facility] BCP OB [address] [place] [phone] Alfredo Donaldson DO [address] [place] [address] documented as of this encounter Goals Goal [...] PM EDT Narrative 04/05/2025 6:01 [place] [address] Ultrasound Report Signed Patient: FANNIE WHITE MR#: [id number] : 1995 Acct:[id number] Age/Sex: 29 / F ADM Date: 04/05/25 Loc: [facility] [address]: Belgica Scherer Ordering Physician: Alfredo Donaldson D.O. Date of Service: 04/05/25 Procedure(s): US OB BPP w non-stress Accession Number(s): [id number] cc: Alfredo Donaldson D.O. [place] [address] Patient Name: FANNIE WHITE MRN: [id number] date: 1995 Sex: F Assigned Patient Location: [facility] Current Patient Location: [facility] Accession/Order Number: [id number] Exam Date: 04/05/2025 17:57 Report Date: 04/05/2025 [...] Steen M.D. 04/05/2025 5:58 PM Dictation Location: [place] [address] Electronically authenticated by: [id number] Y Date: 04/05/2025 17:58 Dictated By: Zion Steen D.O. Signed By: 04/05/251800 DD/ 57 TD/TT: Firestopper Installer: Procedure Note Radiology, Radiologist, - 04/05/2025 [place] [address] Ultrasound Report Signed Patient: FANNIE WHITEMR#: [id number] : 1995Acct:[id number] Age/Sex: 29 / FADM Date: 04/05/25 Loc: [facility] 250-[address]: Belgica Scherer Ordering Physician: Alfredo Donaldson D.O. Date of Service: 04/05/25 Procedure(s): US OB BPP w non-stress Accession Number(s): [id number] cc: Alfredo Donaldson D.O. [place] [address] Patient Name: FANNIE WHITE MRN: [facility]:[id number] date: 1995 Sex: F Assigned Patient Location: [facility] Current Patient Location: [facility] Accession/Order Number: [id number] Exam Date: 04/05/2025 17:57 Report Date: 04/05/2025 [...] Steen M.D. 04/05/2025 5:58 PM Dictation [facility] Electronically authenticated by: [id number] Y Date: 7:58 Dictated By: Zion Steen D.O. Signed By:04/05/251800 DD/ 57 TD/TT: Firestopper Installer: us Alfredo Mendoza DO [facility] Final Result documented in this encounter Visit Diagnoses Not on filedocumented in this encounter Additional Health Concerns Active Problems Noted Date Diagnosed Date OB Reminders 11/26/2024 documented as of this encounter
--- OUTSIDE RECORDS SUMMARY | 2025-04-11 16:45 | XMS_ITS | Encounter Summary ---
Author Organization [facility] Address [address] [place] [address] Care Team Providers Care Dry Ice Machine Operator Name Role Phone Unavailable Primary Care Provider Unavailabl e Encounter Details Date Type Department Care Team (Late Contact Info) Description 12/24/2024 Abstract [facility] BCP OB [address] [place] [phone] Cain Donaldson DO [address] [place] [address] Karin [place], [place] [phone] Social History Tobacco Use Types Packs/Day Years [...] AM EDT Routine [facility] BCP OB [address] [place] [phone] Cain Donaldson DO [facility] [place] [place], [place] [address] documented as of this encounter Goals Goal Patient Goal Type Associated Problems Recent Progress Patient-Stated? Author Reminders Care Plan OB Reminders No Open Scheduling, Background documented as of this encounter Visit Diagnoses Not on filedocumented in this encounter Additional Health Concerns Active Problems Noted Date Diagnosed Date OB Reminders 11/26/2024 documented as of this encounter
[2025-04-11 17:35] LABS: Basophils Percent Auto 0.3 % (0.2-2.0); Eosinophils Absolute Auto 0.1 10^3/uL (0.0-0.7); Eosinophils Percent Auto 1.5 % (0.9-7.0); Hematocrit 31.7 % (36.0-48.0); Immature Granulocytes Abs Auto 0.06 10^3/uL (0.00-0.03); Immature Granulocytes Pct Auto 0.8 % (0.0-0.5); Lymphocytes Absolute Auto 1.5 10^3/uL (1.2-3.8); Lymphocytes Percent Auto 20.5 % (20.5-60.0); Mean Corpuscular HGB Conc 34.7 g/dL (29.9-35.2); Mean Corpuscular Hemoglobin 30.2 pg (26.7-34.0); Mean Corpuscular Volume 87.1 fL (81.0-99.0); Mean Platelet Volume 10.6 fL (9.5-13.5); Monocytes Absolute Auto 0.6 10^3/uL (0.3-0.8); Monocytes Percent Auto 7.8 % (1.7-12.0); Neutrophils Absolute Auto 5.1 10^3/uL (1.4-6.5); Neutrophils Percent Auto 69.1 % (43.0-75.0); Platelet Count 193 10^3/uL (150-450); Red Blood Count 3.64 10^6/uL (4.20-5.40); Red Cell Distribution Width 13.4 % (11.0-15.0); White Blood Count 7.3 10^3/uL (4.0-11.0)
[2025-04-11 17:48] LABS: Aspartate Amino Transferase 11 U/L (15-37); Estimated GFR (African America >60 (>=60 mL/min/1.73m^2); Estimated GFR (Non-African Ame >60 (>=60 mL/min/1.73m^2); Lactate Dehydrogenase 153 U/L (81-234); Uric Acid 2.8 mg/dL (2.6-6.0)
[2025-04-11 17:52] LABS: INR 0.93; Partial Thromboplastin Time 27.3 sec (22.3-36.2); Prothrombin Time 9.9 sec (9.0-11.6)
== END 2025-04-11 16:42 | disposition home or self-care (01) ==
LOC: LAB 16:42
PROVIDERS: PCP Obstetrics & Gynecology; Visit Provider Obstetrics & Gynecology
DX: Z13.1 Encounter for screening for diabetes mellitus (principal); O13.2 Gestational [pregnancy-induced] hypertension without significant proteinuria, second trimester; Z3A.23 23 weeks gestation of pregnancy
CPT/HCPCS: 36415; 82565; 83615; 84450; 84520; 84550; 85025; 85610; 85730

== ENCOUNTER 2025-04-11 17:02 | Outpatient (OUT) | payer BC, SELFPAY ==
[2025-04-11 17:23] VITALS: BP 129/72; PULSE 78
--- NOTE | 2025-04-11 17:27 | US_ITS ---
[place] [id number] Patient Name: FANNIE WHITE MRN: [id number] date: 1995 Sex: F Assigned Patient Location: [facility] Current Patient Location: Accession/Order Number: [id number] Exam Date: 04/11/2025 19:33 Report Date: 04/11/2025 19:34 At the request of: ALFREDO PROCTOR DO Procedure: US OB BPP w non-stress Ultrasound biophysical profile HISTORY: Gestational diabetes Adequate breathing movement, gross body movement, tone and amniotic fluid volume for total score of 8 out of 8. The amniotic fluid index is 10.5cm within normal limits. The heart rate 150 bpm. US/US OB BPP w non-stress IMPRESSION: Adequate ultrasound biophysical profile Impression dictated by: Zion Steen M.D. 04/11/2025 7:34 PM Dictation [facility] Electronically authenticated by: [id number] Y Date: 04/11/2025 19:34
== END 2025-04-11 18:15 | disposition home or self-care (01) ==
LOC: US 17:02 → FBC 17:04
PROVIDERS: PCP Obstetrics & Gynecology; Visit Provider Nurse Practitioner Family
DX: Z13.1 Encounter for screening for diabetes mellitus (principal); O13.2 Gestational [pregnancy-induced] hypertension without significant proteinuria, second trimester; Z3A.23 23 weeks gestation of pregnancy; O24.419 Gestational diabetes mellitus in pregnancy, unspecified control
CPT/HCPCS: 36415; 76818; 82565; 83615; 84450; 84520; 84550; 85025; 85610; 85730

== ENCOUNTER 2025-04-14 16:54 | Outpatient (OUT) | payer BC, SELFPAY ==
--- OUTSIDE RECORDS SUMMARY | 2025-01-21 11:10 | XMS_ITS | Continuity of Care Document ---
Author Organization [facility] Address [address] [place] [address] Phone Care Team Providers Care Stave Cutting Supervisor Name Role Phone Miguel Rios Unavailable Unavailable [...] Diagnoses Date Provider Providers Copied on Encounter [facility], [address] [place] [address], [id number] , [place] tel: [phone] [facility] No Information 5 Visci DO Rivera. [address] [place] [address], [id number] , [place]. tel: [phone] [facility], [address] [place] [address], [id number] , [place] tel: [phone] [facility] Encounter for screening for respiratory tuberculosis 5 Visci DO Imguel. [address] [place] [address], [id number] , [place]. tel:[phone] [facility], [address] [place] [address], [id number] , [place] tel: [phone] [facility] No Information 4 Visci DO Miguel. [address] [place] [address], [id number] , [place]. tel: [phone] [facility], [address] [place] [address], [id number] , [place] tel:[phone] [facility] Lab Draw (chief complaint) Other specified disorders of pancreatic internal secretionSubclinical iodine-deficiency hypothyroidismEncount er for screening for other viral diseasesEncounter for screening for other infectious disease 4 Cynthia White. [address], [place], [id number] , [place]. tel: [phone] [facility], [address], [place], [id number] , [place] tel: [phone] [facility] lab draw (chief complaint) Encounter for screening for other viral diseases 4 Cynthia White. [address], [place], 280753291 , [place]. tel: [phone] [facility], [address], [place], [id number] , [place] tel: [phone] [facility] No Information 4 Cynthia White. [address], [place], 514043401 , [place]. tel: [phone] [facility], [address], [place], 261894519 , [place] tel: [phone] [facility] Encounter for screening for respiratory tuberculosis 4 Cynthia White. [address], [place], 877683113 , [place]. tel: [phone] [facility], [address], [place], 661569512 , [place] tel: [phone] [facility] Lab draw (chief complaint) Blood test prior to procedure 4 Cynthia White. [address], [place], [id number] , [place]. tel: [phone] Referring Provider: Tenisha Leon [place]. [facility], [address], [place], [id number] , [place] tel: [phone] [facility] No Information 3 Cynthia White. [address], [place], [id number] , [place]. tel: [phone] [facility], [address], [place], 945161377 , [place] tel: [phone] [facility] COVID Test (chief complaint) Encounter for screening for COVID-19 3 Cynthia White. [address], [place], [id number] , [place]. tel: [phone] [facility], [address], [place], 459634555 , [place] tel: [phone] [facility] Lab Draw (chief complaint) Encounter for antibody response examination 3 Cynthia White. [address], [place], [id number] , [place]. tel: [phone] [facility], [address] [place] [address], [id number] , [place] tel: [phone] [facility] lab (chief complaint) Other specified disorders of pancreatic internal secretion 3 Cynthia White. [address], [place], 864446079 , [place]. tel: [phone] [facility], [address] [place] [address], [id number] , [place] tel: [phone] [facility] Lab draw (chief complaint) Blood test prior to procedure 3 Cynthia White. [address], [place], 045943368 , [place]. tel: [phone] [facility], [address] [place] [address], [id number] , [place] tel: [phone] [facility] lab draw (chief complaint) Endocrine disorder 3 Cynthia White. [address], [place], 704525806 , [place]. tel: [phone] [facility], [address] [place] [address], [id number] , [place] tel: [phone] [facility] Encounter for screening for COVID-19 3 Visci DO Miguel. [address], [place], 219725758 , [place]. tel: [phone] [facility], [address], [place], 963709150 , [place] tel: [phone] [facility] Lab draw (chief complaint) Blood test prior to procedureEncounter for screening for COVID-19 3 Visci DO Miguel. [address], [place], 652155082 , [place]. tel: [phone] [facility], [address], [place], 158265641 , [place] tel: [phone] [facility] No Information 3 Visci DO Miguel. [address], [place], [id number] , [place]. tel: [phone] [facility], [address], [place], 946896341 , [place] tel: [phone] [facility] No Information 3 Visci DO Miguel. [address], [place], 074187577 , [place]. tel: [phone] [facility], [address], [place], 173549450 , [place] tel: [phone] [facility] No Information 2 Visci DO Miguel. [address], [place], [id number] , [place]. tel: [phone] [facility], [address], [place], 729429065 , [place] tel: [phone] [facility] No Information 2 Visci DO Miguel. [address], [place], 576597817 , [place]. tel: [phone] [facility], [address], [place], 106211806 , [place] tel: [phone] [facility] No Information 2 Visci DO Miguel. [address], [place], 651350594 , [place]. tel: [phone] [facility], [address], [place], 995395587 , [place] tel: [phone] [facility] Encounter for screening for respiratory tuberculosis 2 Visci DO Miguel. [address], [place], 802427066 , [place]. tel: [phone] [facility], [address], [place], 481852437 , [place] tel: [phone] [facility] Encounter for screening for respiratory tuberculosis 2 Visci DO Miguel. [address], [place], 858004323 , [place]. tel: [phone] [facility], [address], [place], 838807750 , [place] tel: [phone] [facility] Encounter for screening for respiratory tuberculosis 2 Visci DO Miguel. [address], [place], 594295048 , [place]. tel: [phone] [facility], [address], [place], 996873248 , [place] tel: [phone] [facility] No Information 1 Visci DO Miguel. [address], [place], 366066660 , [place]. tel: [phone] [facility], [address], [place], 346634884 , [place] tel: [phone] [facility] No Information 1 Visci DO Miguel. [address], [place], 602786774 , [place]. tel: [phone] [facility], [address], [place], 011403208 , [place] tel: [phone] [facility] No Information 1 Visci DO Miguel. [address], [place], 926992730 , [place]. tel:[phone] Family History Family Member Type Diagnosis Age At Onset No Information Immunizations Vaccine Date Status Comments Influenza, injectable, trivalent, split virus, 0.5 mL dosage, preservative free, Afluria Triv administered Source: New Immun ization Record Spikevax y+ administered Source: New Im munization Record Flulaval/ [...] Record Payers Payer name Insurance type Covered libertarian ID Authoriza tion(s) [place] [employer] [id number] [employer] [place] [employer] [id number] [employer] [place] [employer] [id number] [place] [employer] [id number] [employer] [place] [employer] [id number] [place] [employer] [id number] [place] [employer] [id number] Social History Type Description Quantity Date Captured Comments Alcohol Use Details Unknown Caffeine Use Details Unknown Tobacco Use Status No Information Smoking Status No Information Sex Female Sexual Orientation Lesbian, lopez or homosexual Gender Identity Female Chief Complaint And Reason For Visit No Information Reason For Referral Reason For Referral No Information Plan Of Treatment Date Type Action Status Goal Unhealthy drug use screening . Due on due Goal RLP. Due on due Goal Tdap Vaccine. Due on 2031 due Goal Hep A. Due on du e Goal Depression screening. Due on due Goal Hepatitis C screening. Due o n due Goal Influenza vaccine. Due on Oc [...] PRAPARE ASSESSMENT. Due on N due Goal Tdap due Goal Influenza vaccine. Due on Se due Goal Hep A. Due on du e Goal RLP. Due on due Goal Tdap Vaccine. Due on 2031 due Goal PRAPARE ASSESSMENT. Due on S ep due Goal Depression screening. Due on due [...] Influenza vaccine. Due on Au due Goal Tdap due Goal PRAPARE ASSESSMENT. [...] on du e Goal Tdap due Goal Hep A. Due on du e Goal Influenza vaccine. Due on due Goal RLP. Due on due Goal Tdap Vaccine. Due on 2031 due Goal PAP. Due on due Goal PRAPARE ASSESSMENT. Due on M due Goal Depression screening. Due on due Goal PAP. Due on due Goal Influenza vaccine. Due on Hi due Goal Depression screening. Due on due [...] Goal Depression screening. Due on due Goal Tdap. Due on due Goal Depression screening. Due on due Goal Influenza vaccine. Due on due Goal RLP. Due on due Goal PAP. Due on due History Of Present Illness [...]
--- OUTSIDE RECORDS SUMMARY | 2025-04-14 16:56 | XMS_ITS | Encounter Summary ---
Author Organization [facility] tem Address [facility][id number] [address] [place] [address] Care Team Providers Care Deckhand Fishing Vessel Name Role Phone Unavailable Primary Care Provider Unavailabl e Encounter Details Date Type Department Care Team (Late st Contact Info) Description 01/27/2025 Orders Only Maternal- Medicine at [facility] [address] [place] [phone] Sintia Martinez, TRAFFIC REPORTER-SUPERVISOR [employer] [address] [place] [address] Social History Tobacco Use Types Packs/Day Years [...] Care Team (Late st Contact Info) Description 04/25/2025 11:30 AM EDT Telemedicine Maternal- Medicine at [facility] [address] [place] [address] Devika Pulido, PAMoniqueC [address] [address] 05/12/2025 8:00 AM EDT Appointment Maternal Medicine [place] [address] [facility] [address] [place] [phone] documented as of this encounter Visit Diagnoses Not on filedocumented in this encounter Additional Health Concerns Assessment Noted Time PHQ-9 Depression Total Score: 2 07/03/20 16 9:00 AM EDT documented as of this encounter
--- OUTSIDE RECORDS SUMMARY | 2025-04-14 16:56 | XMS_ITS | Encounter Summary ---
Author Organization [facility] Address [address] [place] [address] Care Team Providers Care Inspector Conveyor Line Name Role Phone Unavailable Primary Care Provider Unavailabl e Encounter Details Date Type Department Care Team (Late Contact Info) Description 11/26/2024 Abstract [facility] BCP OB [address] [facility] [place] [phone] Cain Donaldson DO [address] [place] [address] [place]in [place], [place] [phone] Social History Tobacco Use Types Packs/Day Years [...] AM EDT Routine [facility] BCP OB [address] [facility] [place] [phone] Cain Donaldson DO [facility] [address] [place], [place] [phone] documented as of this encounter Goals Goal Patient Goal Type Associated Problems Recent Progress Patient-Stated? Author Reminders Care Plan OB Reminders No Open Scheduling, Background documented as of this encounter Visit Diagnoses Not on filedocumented in this encounter Additional Health Concerns Active Problems Noted Date Diagnosed Date OB Reminders 11/26/2024 documented as of this encounter
--- OUTSIDE RECORDS SUMMARY | 2025-04-14 16:56 | XMS_ITS | Encounter Summary ---
Author Organization [facility] tem Address [facility]-[id number] [address] [place] [address] Care Team Providers Care Professional Tutor Name Role Phone Unavailable Primary Care Provider Unavailabl e Encounter Details Date Type Department Care Team (Latest Contact Info) Description 04/14/2025 Travel Social History Tobacco Use Types Packs/Day [...] 11:30 AM EDT Telemedicine Maternal- Medicine at [facility] [address] [facility] [place] [address] Devika Pulido, JASON [address] [address] 05/12/2025 8:00 AM EDT Appointment Maternal Medicine [place] [address] [facility] 4 [place] [address] documented as of this encounter Visit Diagnoses Not on filedocumented in this encounter Additional Health Concerns Assessment Noted Time PHQ-9 Depression Total Score: 2 07/03/20 16 9:00 AM EDT documented as of this encounter
--- OUTSIDE RECORDS SUMMARY | 2025-04-14 16:56 | XMS_ITS | Clinical Summary ---
Author Organization [facility] Address [address] [place] [address] Care Team Providers Care Dispute Resolution Analyst Name Role Phone Unavailable Primary Care Provider Unavailabl e Encounters Date Type Department Care Team Description 02/08/2025 6:04 PM EDT - 02/08/2025 11:59 PM EDT Hospital Encounter [facility] [address] [place] [address] Discharge Disposition: Home or Self Care from [...] Cutoff Neural Tube Defects Risks 1:1030 < 1:79247 1:250 Comments: The risk of an open neural tube defect is less than the screening cut-off. This test was developed and its performance characteristics determined by [facility]. It has not been cleared or approved [...] LABORATORY Comment: (NOTE) Initial sample Performed By: [facility] [address] [place] [address] Sql Dba: Jose Joseph MD, PhD CLIA Number: [id number] 02/08/2025 6:07 PM EDT 02/08/2025 6:09 PM EDT Christy Schwartz PA-C CHEMISTRY ORDERABLES Final Resu lt [facility] [address] [place], [place] [address] [place] [address] [facility] [address] [phone] * Hepatitis C Antibody (12/23/2024 6:10 PM EST) Hepatitis C Ab NONREACTIVE NONREACTIVE 12/23/19 6:10 PM EST [facility] Comment: The hepatitis C procedure used in [...] ORDERABLES Fin al Result Performing Organization Address City/[facility]/ZIP Co de Phone Number [facility] [address] [place] [address], [facility] [phone] [facility] [address] [place] [address], [facility] [phone] * HIV Screen (12/23/2024 6:10 PM EST) HIV Ag/Ab NONREACTIVE NONREACTIVE 12/23/2024 6:10 PM EST [facility] Comment: No laboratory evidence of HIV infection. If acute HIV infection is suspected, consider testing for HIV-1 RNA. 12/23/2024 6:10 PM EST 12/23/2024 6:12 PM EST Cain Donaldson MD IMMUNOLOGY ORDERABLES Fin al Result Performing Organization Address [facility] Co de Phone Number [facility] [address] [place] [address], [facility] [phone] [facility] [address] [place] [address], [facility] [phone] from Last 3 Months or Most Recently Relevant to Health Maintenance Insurance
--- OUTSIDE RECORDS SUMMARY | 2025-04-14 16:56 | XMS_ITS | Encounter Summary ---
Author Organization [facility] Address [facility][id number] [address] [place] [address] Care Team Providers Care Product Safety Officer Name Role Phone Unavailable Primary Care Provider Unavailabl e Encounter Details Date Type Department Care Team (Late Contact Info) Description 12/30/2024 Orders Only Maternal- Medicine at [address] [phone] Ref Prov, [place] [address] Social History Tobacco Use Types Packs/Day Years [...] Department Care Team (Late Contact Info) Description 04/25/2025 11:30 AM EDT Telemedicine Maternal- Medicine at [facility] 2 [place] [phone] Devika Pulido, PAMoniqueC [address] [address] 05/12/2025 8:00 AM EDT Appointment Maternal Medicine [place] [address] [facility] 4 [place] [address] documented as of this encounter Visit Diagnoses Not on filedocumented in this encounter Additional Health Concerns Assessment Noted Time PHQ-9 Depression Total Score: 2 07/03/20 16 9:00 AM EDT documented as of this encounter
--- OUTSIDE RECORDS SUMMARY | 2025-04-14 16:56 | XMS_ITS | Encounter Summary ---
Author Organization [facility] tem Address [facility] [id number] [address] [place] [address] Care Team Providers Care Conditioner Tumbler Operator Name Role Phone Unavailable Primary Care Provider Unavailabl e Encounter Details Date Type Department Care Team (Late st Contact Info) Description 04/12/2025 Telephone Maternal- Medicine at [facility] [address] [place] [phone] Sonya Lomax, RN Social History Tobacco Use [...] Telephone Encounter - Sonya Lomax RN - 04/12/2025 4:16 PM EDT Called pt to discuss her insulin change. Devika Pulido reviewed her blood sugars and would like herto increase her lantus in the evening to 25 units. Pt verbalized understanding and will start tonight. She will send in new blood sugars next week. documented in this encounter Plan of Treatment Upcoming Encounters Date Type Department Care Team (Late st Contact Info) Description 04/25/2025 11:30 AM EDT Telemedicine Maternal- Medicine at [facility] [address] [place] [phone] Devika Pulido, JASON [address] [address] 05/12/2025 8:00 AM EDT Appointment Maternal Medicine [place] [address] [facility] [address] 4 [place] [address] documented as of this encounter Visit Diagnoses Not on filedocumented in this encounter Additional Health Concerns Assessment Noted Time PHQ-9 Depression Total Score: 2 07/03/20 16 9:00 AM EDT documented as of this encounter
--- OUTSIDE RECORDS SUMMARY | 2025-04-14 16:56 | XMS_ITS | Encounter Summary ---
Author Organization [facility] Address [address] [place] [address] Care Team Providers Care Proposal Director Name Role Phone Unavailable Primary Care Provider Unavailabl e Encounter Details Date Type Department Care Team (Late Contact Info) Description 01/10/2025 Abstract [facility] BCP OB [address] [facility] [place] [phone] Cain Donaldson DO [address] [place] [address] [place]in [place], [place] [phone] Social History Tobacco Use Types Packs/Day Years [...] AM EDT Routine [facility] BCP OB [address] [facility] [place] [phone] Cain Donaldson DO [facility] [address] [place], [place] [phone] documented as of this encounter Goals Goal Patient Goal Type Associated Problems Recent Progress Patient-Stated? Author Reminders Care Plan OB Reminders No Open Scheduling, Background documented as of this encounter Visit Diagnoses Not on filedocumented in this encounter Additional Health Concerns Active Problems Noted Date Diagnosed Date OB Reminders 11/26/2024 documented as of this encounter
--- OUTSIDE RECORDS SUMMARY | 2025-04-14 16:56 | XMS_ITS | Encounter Summary ---
Author Organization [facility] Address [address] [place] [address] Care Team Providers Care Senior Network Security Architect Name Role Phone Unavailable Primary Care Provider Unavailabl e Encounter Details Date Type Department Care Team (Late Contact Info) Description 01/27/2025 Orders Only [facility] BCP OB [address] [facility] [facility] [place] [phone] Damaris Lopez LPN [address] [facility] [place] [address] Social History Tobacco Use Types Packs/Day Years [...] AM EDT Routine [facility]OM[facility] BCP OB [address] [facility] [place] [phone] Cain Donaldson DO [address] [facility] [address] [place], [place] [phone] documented as of this encounter Goals Goal [...]
--- OUTSIDE RECORDS SUMMARY | 2025-04-14 16:56 | XMS_ITS | Encounter Summary ---
Author Organization [facility] Address [address] [place] [address] Care Team Providers Care Routing Clerk Name Role Phone Unavailable Primary Care Provider Unavailabl e Encounter Details Date Type Department Care Team (Late st Contact Info) Description 03/18/2025 Abstract [facility] OB [address] [facility] [place] [phone] Yue Dumont [place] Social History Tobacco Use [...] Description 04/18/2025 10:10 AM EDT Routine [facility] OB [address] [place] [address] [place] [phone] Cain Donaldson DO [address] [facility] [place] [address] documented as of this encounter Goals Goal Patient Goal Type Associated Problems Recent Progress Patient-Stated? Author Reminders Care Plan OB Reminders No Open Scheduling, Background documented as of this encounter Visit Diagnoses Not on filedocumented in this encounter Additional Health Concerns Active Problems Noted Date Diagnosed Date OB Reminders 11/26/2024 documented as of this encounter
--- OUTSIDE RECORDS SUMMARY | 2025-04-14 16:56 | XMS_ITS | Encounter Summary ---
Author Organization [facility] tem Address [facility]-[id number] [address] 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, antepartum; Severe obesity due to excess calories affecting , antepartum ([facility]); Bipolar disorder, in full remission, most recent [...] 11:30 AM EDT Telemedicine Maternal- Medicine at [facility] [address] [place] [phone] Devika Pulido PA-C [address] [address] 05/12/2025 8:00 AM EDT Appointment Maternal Medicine [place] [address] [facility] 4 [place] [address] documented as of this encounter Procedures Procedure [...] due to excess calories affecting , antepartum ([facility]) Bipolar disorder, in full remission, most recent [...] due to excess calories affecting , antepartum ([facility]) Bipolar disorder, in full remission, most recent episode depressed documented in this encounter Additional Health Concerns Assessment Noted Time PHQ-9 Depression Total Score: 2 07/03/20 16 9:00 AM EDT documented as of this encounter
--- OUTSIDE RECORDS SUMMARY | 2025-04-14 16:56 | XMS_ITS | Encounter Summary ---
Author Organization [facility] Address [address] [place] [place] [address] Care Team Providers Care Core Maker Helper Name Role Phone Unavailable Primary Care Provider Unavailabl e Encounter Details Date Type Department Care Team (Late Contact Info) Description 04/05/2025 Clinisync Result Encounter [facility] External Department Unsolicited Alfredo Donaldson, DO [address] [place] [address] Social History Tobacco Use Types Packs/Day Years [...] Routine [facility] BCP OB [address] [place] [phone] Alfredo Donaldson DO [address] [place] [address] documented as of this encounter Goals Goal [...] PM EDT Narrative 04/05/2025 6:01 [place] [address] Ultrasound Report Signed Patient: FANNIE WHITE MR#: [id number] : 1995 Acct:[id number] Age/Sex: 29 / F ADM Date: 04/05/25 Loc: [facility] [address]: Belgica Scherer Ordering Physician: Alfredo Donaldson D.O. Date of Service: 04/05/25 Procedure(s): US OB BPP w non-stress Accession Number(s): [id number] cc: Alfredo Donaldson D.O. [place] [address] Patient Name: FANNIE WHITE MRN: [id number] date: 1995 Sex: F Assigned Patient Location: [facility] Current Patient Location: [facility] Accession/Order Number: [id number] Exam Date: 04/05/2025 17:57 Report Date: 04/05/2025 [...] Steen M.D. 04/05/2025 5:58 PM Dictation Location: [place] [address] Electronically authenticated by: [id number] Y Date: 04/05/2025 17:58 Dictated By: Zion Steen D.O. Signed By: 04/05/251800 DD/ 57 TD/TT: High Density Press Laborer: Procedure Note Radiology, Radiologist, - 04/05/2025 [place] [address] Ultrasound Report Signed Patient: FANNIE WHITEMR#: [id number] : 1995Acct:[id number] Age/Sex: 29 / FADM Date: 04/05/25 Loc: [facility] 250-[address]: Belgica Scherer Ordering Physician: Alfredo Donaldson D.O. Date of Service: 04/05/25 Procedure(s): US OB BPP w non-stress Accession Number(s): [id number] cc: Alfredo Donaldson D.O. [place] [address] Patient Name: FANNIE WHITE MRN: [facility]:[id number] date: 1995 Sex: F Assigned Patient Location: [facility] Current Patient Location: [facility] Accession/Order Number: [id number] Exam Date: 04/05/2025 17:57 Report Date: 04/05/2025 [...] Steen M.D. 04/05/2025 5:58 PM Dictation [facility] Electronically authenticated by: [id number] Y Date: 7:58 Dictated By: Zion Steen D.O. Signed By:04/05/251800 DD/ 57 TD/TT: High Density Press Laborer: us Alfredo Mendoza DO [facility] Final Result documented in this encounter Visit Diagnoses Not on filedocumented in this encounter Additional Health Concerns Active Problems Noted Date Diagnosed Date OB Reminders 11/26/2024 documented as of this encounter
--- OUTSIDE RECORDS SUMMARY | 2025-04-14 16:56 | XMS_ITS | Encounter Summary ---
Author Organization [facility] Address [address] [place] [address] Care Team Providers Care Business Services Sales Agent Name Role Phone Unavailable Primary Care Provider Unavailabl e Encounter Details Date Type Department Care Team (Late Contact Info) Description 12/24/2024 Abstract [facility] BCP OB [address] [facility] [place] [phone] Cain Donaldson DO [address] [place] [address] Karin [place], [place] [phone] Social History Tobacco Use Types Packs/Day Years [...] AM EDT Routine [facility] BCP OB [address] [facility] [place] [phone] aCin Donaldson DO [facility] [address] [place], [place] [phone] documented as of this encounter Goals Goal Patient Goal Type Associated Problems Recent Progress Patient-Stated? Author Reminders Care Plan OB Reminders No Open Scheduling, Background documented as of this encounter Visit Diagnoses Not on filedocumented in this encounter Additional Health Concerns Active Problems Noted Date Diagnosed Date OB Reminders 11/26/2024 documented as of this encounter
--- OUTSIDE RECORDS SUMMARY | 2025-04-14 16:56 | XMS_ITS | Clinical Summary ---
Author Organization [facility] Address [address] [place] [address] Care Team Providers Care Glass Ribbon Machine Operator Name Role Phone Unavailable Primary Care Provider Unavailabl e Allergies No known active allergies Medications Alcohol Swabs (Alcohol Prep Pad) 70 % padsIndications :Elevated glucose tolerance test, resulting from in vitro fertilization, antepartum ([facility]) Apply 1 Pad topically Daily Use four times daily to check FSBS. 150 each 3 5 Active Blood Glucose Monitoring Suppl (D-Care Glucometer) w/Device kitIndications: Elevated glucose tolerance test, resulting from in vitro fertilization, antepartum ([facility]) 1 kit Daily Use four times daily to check FSBS. In the morning prior to breakfast & 1 hour after each meal for a total of 4times daily. 1 kit 5 12/23/19 26 Active insulin syringe 29G X 1/2 0.5 mL miscIndications :Gestational diabetes mellitus (GDM), antepartum, gestational diabetes method of control unspecified ([facility]) Use 2 syringes in the morning for [...] Encounters Date Type Department Care Team Description 04/14/2025 Abstract [facility] OB [address] [place] [address] [place] [address] Yue Dumont MA 04/11/2025 Clinisync Result Encounter [facility] External Department Unsolicited Alfredo Donaldson, DO 04/11/2025 Clinisync Result Encounter [facility] External Department Unsolicited Alfredo Donaldson, DO 04/05/2025 Clinisync Result Encounter [facility] External Department Unsolicited Alfredo Donaldson, DO 03/30/2025 8:50 AM EDT Routine NOM[facility] [address] [place] [address] Christy Schwartz PA Second trimester ([facility]); 27 weeks gestation of ([facility]); Gestational diabetes mellitus (GDM), antepartum, gestational diabetes method of control unspecified ([facility]); Factor 5 Leiden mutation, heterozygous ([facility]); Conceived by in vitro fertilization 03/30/2025 Bamboo flowsheet NOM[facility] [address] [place] [address] Christy Schwartz PA 03/30/2025 Travel 03/18/2025 Abstract [facility] [address] [place] [address] Yue Dumont MA 03/03/2025 8:40 AM EDT Routine [facility] [address] [place] [address] Alfredo Donaldson, DO 23 weeks gestation of ([facility]); Second trimester ([facility]); induced hypertension, antepartum ([facility]); Insulin controlled gestational diabetes mellitus (GDM) during , antepartum ([facility]) 03/03/2025 Bamboo flowsheet [facility] [address] [place] [address] Alfredo Donaldson, 03/02/2025 Travel 01/27/2025 Orders Only [facility]OM[facility] [address] [place] [address] Damaris Lopez LPN 01/20/2025 8:30 AM EDT Routine [facility] BCP OB [address] [facility] [address] Christy Schwartz PA Well woman exam with routine gynecological exam; 17 weeks gestation of ([facility]); Second trimester ([facility]); Exposure to STD; Vaginal discharge 01/20/2025 Clinisync Result Encounter [facility] External Department Unsolicited Christy Schwartz PA 01/20/2025 External Result Encounter [facility] External Department Unsolicited Christy Schwartz PA 01/20/2025 Bamboo flowsheet [facility] BCP OB [address] [facility] [address] Christy Schwartz PA 01/19/2025 Travel from Last 3 Months Social History Tobacco [...] AM EDT Routine [facility] [address] [facility] [place] [phone] Alfredo Donaldson, DO [address] [place] [address] Dr [address] [place], [place] [phone] Health Maintenance Due Date Last Done Comments HPV/Cotest 2023 Cervical Cancer Screening 01/21/2028 Pap Smear 01/21/2028 01/20/2025 Influenza Vaccine Completed 08/03/2024, 09/08/2023, 10/07/2022 Goals Goal Patient Goal Type Associated Problems Recent Progress Patient-Stated? Author Reminders Care Plan OB Reminders No Open Scheduling, Background Procedures Procedure Name Priority Date/Time Associated Diagnosis Comments US OB BPP W NON-STRESS 04/11/2025 7:34 PM EDT [facility] APTT Routine 04/11/2025 4:52 PM EDT [facility] PROTHROMBIN TIME INR W/O COUM Routine 04/11/2025 4:52 PM EDT ALL CBC WITH AUTO DIFF Routine 04/11/2025 4:52 PM EDT ALL LDH Routine 04/11/2025 4:52 PM EDT CCF AST Routine 04/11/2025 4:52 PM EDT ALL URIC ACID Routine 04/11/2025 4:52 PM EDT TBH CREATININE Routine 04/11/2025 4:52 PM EDT ALL BUN Routine 04/11/2025 4:52 PM EDT US OB BPP W NON-STRESS 04/05/2025 5:58 PM EDT POCT URINALYSIS DIPSTICK Routine 03/03/2025 9:08 AM EDT 23 weeks gestation of ([facility]) Second trimester ([facility]) US OB 14+ WEEKS ANATOMY SCAN 02/09/2025 4:57 PM EDT RECURRENT VAGINITIS (HTRX) Routine 01/20/2025 9:56 AM EDT POCT URINALYSIS DIPSTICK Routine 01/20/2025 8:47 AM EDT 17 weeks gestation of ([facility]) Second trimester ([facility]) IGP,APTIMA HPV,AGE GDLN Routine 01/20/2025 8:29 AM EDT PAP SMEAR Routine 01/20/2025 12:00 AM EDT from Last 3 Months Results * US OB BPP W NON-STRESS (04/11/2025 7:34 PM EDT) Only the most recent of2 resultswithin the time period is included. Anatomical Region Laterality Modality Other 04/11/2025 7:34 PM EDT Narrative 04/11/2025 7:36 [place] [address] Ultrasound Report Signed Patient: KEVIN WHITE MR#: [id number] : 1995 Acct:[id number] Age/Sex: 29 / F ADM Date: 04/11/25 Loc: US Attending Dr: Belgica Scherer Ordering Physician: Alfredo Donaldson D.O. Date of Service: 04/11/25 Procedure(s): US OB BPP w non-stress Accession Number(s): [id number] cc: Alfredo Donaldson D.O. [place] [id number] Patient Name: KEVIN WHITE MRN: [id number] date: 1995 Sex: F Assigned Patient Location: [facility] Current Patient Location: Accession/Order Number: [id number] Exam Date: 04/11/2025 19:33 Report Date: 04/11/2025 19:34 At the request of: ALFREDO DONALDSON DO Procedure: US OB BPP w non-stress Ultrasound biophysical profile HISTORY: Gestational diabetes Adequate breathing movement, gross body movement, tone and amniotic fluid volume for total score of 8 out of 8. The amniotic fluid index is 10.5cm within normal limits. The heart rate 150 bpm. US/US OB BPP w non-stress IMPRESSION: Adequate ultrasound biophysical profile Impression dictated by: Zion Steen M.D. 04/11/2025 7:34 PM Dictation Location: [employer] Electronically authenticated by: [id number] Y Date: 04/11/2025 19:34 Dictated By: Zion Steen D.O. Signed By: 04/11/251935 DD/ 33 TD/TT: Soil Scientist: Procedure Note Radiology, Radiologist, MD - 04/11/2025 [place] [address] Ultrasound Report Signed Patient: KEVIN WHITEMR#: [id number] : 1995Acct:[id number] Age/Sex: 29 FADM Date: 04/11/25 Loc: US Attending Dr: Belgica Scherer Ordering Physician: Alfredo Donaldson D.O. Date of Service: 04/11/25 Procedure(s): US OB BPP w non-stress Accession Number(s): [id number] cc: Alfredo Donaldson D.O. [place] [address] Patient Name: KEVIN WHITE MRN: [id number] date: 1995 Sex: F Assigned Patient Location: [facility] Current Patient Location: Accession/Order Number: [id number] Exam Date: 04/11/2025 19:33 Report Date: 04/11/2025 19:34 At the request of: ALFREDO DONALDSON DO Procedure: US OB BPP w non-stress Ultrasound biophysical profile HISTORY: Gestational diabetes Adequate breathing movement, gross body movement, tone and amniotic fluid volume for total score of 8 out of 8. The amniotic fluidindex is 10.5cm within normal limits. The heart rate 150 bpm. US/US OB BPP w non-stress IMPRESSION: Adequate ultrasound biophysical profile Impression dictated by: Zion Steen M.D. 04/11/2025 7:34 PM Dictation Location: [employer] Electronically authenticated by: [id number] Y Date: 9:34 Dictated By: Zion Steen D.O. Signed By:04/11/251935 DD/ 33 TD/TT: Soil Scientist: [facility] Final Result * (ABNORMAL) TBH CREATININE (04/11/2025 4:52 PM EDT) CREATININE 0.36(L) 0.55 - 1.02 mg/dL TBH TBH EGFR-AF [place] >60 >=60 mL/min/1.7 3m 2 TBH TBH EGFR-NON AF [place] >60 >=60 mL/min/1.7 3m 2 TBH 04/11/2025 4:52 PM EDT 04/11/2025 4:56 PM EDT Narrative [facility] - 04/11/2025 5:52 PM EDT [facility] Final Result Performing Organization Address City/[facility]/ZIP Co de Phone Number [facility] * [facility] PROTHROMBIN TIME INR W/O COUM (04/11/2025 4:52 PM EDT) PROTHROMBIN TIME 9.9 9.0 - 11.6 sec TBH TBH INR 0.93 TBH Comment: DESIRED INR: 2.0-3.0 CONDITIONS NOT LISTED BELOW 2.5-3.5 FOR PROSTHETIC HEART VALVE REPLACEMENT 2.5-3.5 RECURRENT THROMBOSIS 04/11/2025 4:52 PM EDT 04/11/2025 4:56 PM EDT Narrative [facility] - 04/11/2025 5:57 PM EDT [facility] Final Result [facility] * (ABNORMAL) [facility]CF AST (04/11/2025 4:52 PM EDT) ASPARTATE AMINO TRANSFERASE 11(L) 15 - 37 U/L TBH 04/11/2025 4:52 PM EDT 04/11/2025 4:56 PM EDT Narrative [facility] - 04/11/2025 5:52 PM EDT Alfredo Mendoza DO [facility] Final Result [facility] * CCF APTT (04/11/2025 4:52 PM EDT) PARTIAL THROMBOPLASTIN TIME 27.3 22.3 - 36.2 sec TB 04/11/2025 4:52 PM EDT 04/11/2025 4:56 PM EDT Narrative [facility] - 04/11/2025 5:57 PM EDT Alfredo Mendoza DO [facility] Final Result Performing Organization Address [facility] Co de Phone Number [facility] TB * ALL URIC ACID (04/11/2025 4:52 PM EDT) URIC ACID 2.8 2.6 - 6.0 mg/dL TB 04/11/2025 4:52 PM EDT 04/11/2025 4:56 PM EDT Narrative [facility] - 04/11/2025 5:52 PM EDT Alfredo Mendoza DO [facility] Final Result Performing Organization Address [facility]/ZIP Co de Phone Number [facility] TB * ALL LDH (04/11/2025 4:52 PM EDT) LACTATE DEHYDROGENASE 153 81 - 234 U/L TB 04/11/2025 4:52 PM EDT 04/11/2025 4:56 PM EDT Narrative [facility] - 04/11/2025 5:52 PM EDT Alfredo Mendoza DO [facility] Final Result [facility] TB * (ABNORMAL) ALL CBC WITH AUTO DIFF (04/11/2025 4:52 PM EDT) [facility] TB WBC 7.3 4.0 - 11.0 10 3/uL TBH TBH RBC 3.64(L) 4.20 - 5.40 10 6/uL TBH TBH HGB 11.0(L) 12.0 - 16.0 g/dL TBH TBH HCT 31.7(L) 36.0 - 48.0 % TBH TBH MCV 87.1 81.0 - 99.0 fL TBH TBH MCH 30.2 26.7 - 34.0 pg TBH TBH MCHC 34.7 29.9 - 35.2 g/dL TBH TBH RDW 13.4 11.0 - 15.0 % TBH TBH PLT 193 150 - 450 10 3/uL TBH TBH MPV 10.6 9.5 - 13.5 fL TBH NEUTROPHILS PERCENT AUTO 69.1 43.0 - 75.0 % TBH LYMPHOCYTES PERCENT AUTO 20.5 20.5 - 60.0 % TBH MONOCYTES PERCENT AUTO 7.8 1.7 - 12.0 % TBH TBH EO % 1.5 0.9 - 7.0 % TBH BASOPHILS PERCENT AUTO 0.3 0.2 - 2.0 % TBH IMMATURE GRANULOCYTES PCT AUTO 0.8(H) 0.0 - 0.5 % TBH NEUTROPHILS ABSOLUTE AUTO 5.1 1.4 - 6.5 10 3/uL TBH LYMPHOCYTES ABSOLUTE AUTO 1.5 1.2 - 3.8 10 3/uL TBH MONOCYTES ABSOLUTE AUTO 0.6 0.3 - 0.8 10 3/uL TBH TBH EO # 0.1 0.0 - 0.7 10 3/uL TBH BASOPHILS ABSOLUTE AUTO 0.0 0.0 - 0.1 10 3/uL TBH IMMATURE GRANULOCYTES ABS AUTO 0.06(H) 0.00 - 0.03 10 3/uL TBH 04/11/2025 4:52 PM EDT 04/11/2025 4:56 PM EDT Narrative [facility] - 04/11/2025 5:53 PM EDT us Alfredo Donaldson DO [facility] * ALL BUN (04/11/2025 4:52 PM EDT) BLOOD UREA NITROGEN 11.0 7.0 - 18.0 mg/dL [facility] 04/11/2025 4:52 PM EDT 04/11/2025 4:56 PM EDT Narrative [facility] - 04/11/2025 5:52 PM EDT us Alfredo Mendoza DO [facility] Final Result Performing Organization Address City/[facility]/ZIP Co de Phone Number [facility] TB * (ABNORMAL) POCT urinalysis dipstick manually resulted [...] EDT THIS EXAM WAS PERFORMED AT [facility] ([place], [place]) NAME: DARLEENCINDY ORTEGA ANGUS : 1995 SEX: F Accession Number: [id number] ORDERING PHYSICIAN: JAIDA RITTER REFERRING PHYSICIAN: ALFREDO DONALDSON Coding ----- --------- Procedures 57131: Ultrasound, uterus, real time with image documentation, and maternal evaluation plus detailed anatomic examination, transabdominal approach;single or first gestation 87457: Transvaginal Ultrasound (OB) 02886: Echocardiography, , cardiovascular system, real time with image documentation (2D), with or without M-mode recording Indication ----- --------- Screening for Anatomic Survey, Screening for cervical length, Screening for congenital cardiac abnormality, resulting from assisted reproductive technology, Gestational diabetes, Obesity in , Depression, Supervision of high risk (LT Choroid plexus cyst) History ----- --------- OB History 2. Para 0 [id number] Maternal Assessment ----- --------- Physical Exam Height [...] 0 lb 14 oz EFW by Hadlock (AQV-NN-BL-FL) Head / Face / Neck Biometry: Cephalic index 0.69 <1% Nicolaides Dog Daycare Provider 6.4 mm CM 6.2 mm 82% Nicolaides [...] Thorax 4-chamber view. RVOT view. LVOT view. 2-rplbzo-ndodtuz view. Diaphragm. Abdomen Cord insertion. Spine: Cervical [...] suboptimal RVOT view suboptimal 3-vessel view normal 2-tqaxmk-mvnirus view suboptimal Aortic arch view normal Ductal [...] today's exam. Recommendations ----- --------- Please see [facility] documentation from today. The patient is scheduled in four week(s) to complete anatomic survey and echocardiogram. Subsequent follow up or other follow up as clinically determined by primary OB provider unless otherwise specified by [facility]. Results forwarded to ordering provider so they can follow up with the patient as necessary. The copy-to physician of this order is ALFREDO Palacios The ordering physician of this order is JAIDA Vicente Procedure Note Radiology, Radiologist, MD - 02/09/2025 THIS EXAM WAS PERFORMED AT [facility] ([place], [place]) NAME: CINDY GRECO : 1995 SEX: F Accession Number: [id number] ORDERING PHYSICIAN: JAIDA RITTER REFERRING PHYSICIAN: ALFREDO DONALDSON Coding ----- --------- Procedures 75152: Ultrasound, uterus, real time with imagedocumentation, and maternal evaluation plus detailed anatomic examination, transabdominalapproach;single or first gestation 03469: Transvaginal Ultrasound (OB) 89755: Echocardiography, , cardiovascular system, real timewith image documentation (2D), with or without M-mode recording Indication ----- --------- Screening for Anatomic Survey, Screening for cervical length, Screeningfor congenital cardiac abnormality, resulting from assisted reproductive technology, Gestational diabetes, Obesity inpregnancy, Depression, Supervision of high risk (LT Choroid plexus cyst) History ----- --------- OB History 2. Para 0 [id number] Maternal Assessment ----- --------- Physical Exam Height [...] 0 lb 14 oz EFW by Hadlock (EIS-AM-CL-FL) Head / Face / Neck Biometry: Cephalic index 0.69 <1% Nicolaides Dog Daycare Provider 6.4 mm CM 6.2 mm 82% Nicolaides [...] Thorax 4-chamber view. RVOT view. LVOT view. 6-gfgqbu-ogmsugmsjnu. Diaphragm. Abdomen Cord insertion. Spine: Cervical spine. [...] suboptimal RVOT view suboptimal 3-vessel view normal 6-mnkpqh-zzqnmmr view suboptimal Aortic arch view normal Ductal [...] today's exam. Recommendations ----- --------- Please see M documentation from today. The patient is scheduled [...] RECURRENT VAGINITIS (HTRX) (01/20/2025 9:56 AM EDT) [facility] ATOPOBIUM VAGINAE 0.000 19.961 - 24.689 ppm 01/21/2025 6:29 AM EDT [facility] ATOPOBIUM VAGINAE Not Detected 19.961 - 24.689 ppm 01/21/2025 6:29 AM EDT [facility] BVAB 2,3 (BACTERIAL VAGINOSIS ASSOCIATED BACTERIA 2, 3); MOBILUNCUS SPP 0.000 19.961 - 24.689 ppm 01/21/2025 6:29 AM EDT [facility] BVAB 2,3 (BACTERIAL VAGINOSIS ASSOCIATED BACTERIA 2, 3); MOBILUNCUS SPP Not Detected 19.961 - 24.689 ppm 01/21/2025 6:29 AM EDT [facility] DEAN ALBICANS, PARAPSILOSIS, TROPICALIS 0.000 19.961 - 30.770 ppm 01/21/2025 6:29 AM EDT [facility] DEAN ALBICANS, PARAPSILOSIS, TROPICALIS Not Detected 19.961 - 30.770 ppm 01/21/2025 6:29 AM EDT [facility] DEAN GLABRATA 0.000 23.000 - 32.138 ppm 01/21/2025 6:29 AM EDT [facility] DEAN GLABRATA Not Detected 23.000 - 32.138 ppm 01/21/2025 6:29 AM EDT [facility] DEAN KRUSEI 0.000 23.000 - 32.271 ppm 01/21/2025 6:29 AM EDT [facility] DEAN KRUSEI Not Detected 23.000 - 32.271 ppm 01/21/2025 6:29 AM EDT [facility] CHLAMYDIA TRACHOMATIS 0.000 23.000 - 31.467 ppm 01/21/2025 6:29 AM EDT [facility] CHLAMYDIA TRACHOMATIS Not Detected 23.000 - 31.467 ppm 01/21/2025 6:29 AM EDT [facility] GARDNERELLA VAGINALIS 0.000 19.961 - 24.689 ppm 01/21/2025 6:29 AM EDT [facility] GARDNERELLA VAGINALIS Not Detected 19.961 - 24.689 ppm 01/21/2025 6:29 AM EDT [facility] MEGASPHAERA (TYPES 1, 2) 0.000 19.961 - 24.689 ppm 01/21/2025 6:29 AM EDT [facility] MEGASPHAERA (TYPES 1, 2) Not Detected 19.961 - 24.689 ppm 01/21/2025 6:29 AM EDT [facility] NEISSERIA GONORRHOEAE 0.000 23.000 - 32.117 ppm 01/21/2025 6:29 AM EDT [facility] NEISSERIA GONORRHOEAE Not Detected 23.000 - 32.117 ppm 01/21/2025 6:29 AM EDT [facility] TRICHOMONAS VAGINALIS 0.000 23.000 - 32.119 ppm 01/21/2025 6:29 AM EDT [facility] TRICHOMONAS VAGINALIS Not Detected 23.000 - 32.119 ppm 01/21/2025 6:29 AM EDT [facility] MYCOPLASMA GENITALIUM 0.000 19.961 - 24.689 ppm 01/21/2025 6:29 AM EDT [facility] MYCOPLASMA GENITALIUM Not Detected 19.961 - 24.689 ppm 01/21/2025 6:29 AM EDT [facility] Tissue 01/20/2025 9:56 AM EDT 01/21/2025 1:43 AM EDT us Christy MCKOY LAB BLOOD ORDERABLES Final Resul t [facility] [address] [place] [address] * IGP,APTIMA HPV,AGE GDLN (01/20/2025 8:29 AM EDT) AGE GDLN ACOG TESTING Note . [facility] Comment: TESTS RESULT FLAG UNITS REF RANGE LAB Clinician Provided Cytology Information Source.............Cervix Other.............. No. of containers..01 ThinPrep Vial Age Algo ACOG Joann... 30 FLAG LEGEND: L-Low Normal,H-High Normal,LL-Alert Low,HH-Alert High <-Panic Low,>-Panic High,A-Abnormal,AA-Critical Abnormal Performed at: 01 =[facility] [address] [place] [address] Tessy Corea MD, IGP, APTIMA HPV, RFX 16/18,45 Note . [facility] Comment: TESTS RESULT FLAG UNITS REF RANGE LAB DIAGNOSIS: 02 NEGATIVE FOR INTRAEPITHELIAL LESION OR MALIGNANCY. Specimen adequacy: 02 Satisfactory for evaluation. No endocervical component is identified. Performed by: 02 Hnanah Ambrose Sales And Retail Management Recruiter (ASCP) . 02 Note: Note 02 The [...] <-Panic Low,>-Panic High,A-Abnormal,AA-Critical Abnormal Performed at: [address] [address] Tessy Corea MD, HPV APTIMA Negative Negative TB Comment: This nucleic acid amplification test detects fourteen high- risk HPV types (16,18,31,33,35,39,45,51,52,56,58,59,66,68) without differentiation. Performed at: =[address] [id number] Radio Dispatcher: Tessy Corea MD, Phone: [phone] Performed at: [address] [id number] Radio Dispatcher: Tessy Corea MD, Phone: [phone] 01/20/2025 8:29 AM EDT 01/20/2025 12:46 PM [...]
--- OUTSIDE RECORDS SUMMARY | 2025-04-14 16:56 | XMS_ITS | Encounter Summary ---
Author Organization [facility] Address [address] [place] [address] Care Team Providers Care Community Nurse Name Role Phone Unavailable Primary Care Provider Unavailabl e Encounter Details Date Type Department Care Team (Late st Contact Info) Description 04/14/2025 Abstract [facility] OB [address] [phone] Yue Dumont MA Social History Tobacco Use [...] Description 04/18/2025 10:10 AM EDT Routine [facility] OB [address] [place] [address] [place] [phone] Cain Donaldson DO [address] [facility] [place] [address] documented as of this encounter Goals Goal Patient Goal Type Associated Problems Recent Progress Patient-Stated? Author Reminders Care Plan OB Reminders No Open Scheduling, Background documented as of this encounter Visit Diagnoses Not on filedocumented in this encounter Additional Health Concerns Active Problems Noted Date Diagnosed Date OB Reminders 11/26/2024 documented as of this encounter
--- OUTSIDE RECORDS SUMMARY | 2025-04-14 16:56 | XMS_ITS | Encounter Summary ---
Author Organization [facility] Address [address] [place] [address] Care Team Providers Care Insurance Claims Assistant Name Role Phone Unavailable Primary Care Provider Unavailabl e Encounter Details Date Type Department Care Team (Late Contact Info) Description 12/27/2024 Abstract [facility] [address] [facility] [place] [phone] Cain Donaldson DO [address] [place] [address] [place]in [place], [place] [id number] Social History Tobacco Use Types Packs/Day Years [...] AM EDT Routine [facility] [address] [facility] [place] [phone] Cain Donaldson DO [facility] [place], [place] [phone] documented as of this encounter Goals Goal Patient Goal Type Associated Problems Recent Progress Patient-Stated? Author Reminders Care Plan OB Reminders No Open Scheduling, Background documented as of this encounter Visit Diagnoses Not on filedocumented in this encounter Additional Health Concerns Active Problems Noted Date Diagnosed Date OB Reminders 11/26/2024 documented as of this encounter
--- OUTSIDE RECORDS SUMMARY | 2025-04-14 16:56 | XMS_ITS | Encounter Summary ---
Author Organization [facility] Address [address] [place] [address] Care Team Providers Care Wage And Salary Specialist Name Role Phone Unavailable Primary Care Provider Unavailabl e Encounter Details Date Type Department Care Team (Late Contact Info) Description 04/11/2025 Clinisync Result Encounter [facility] External Department Unsolicited Cain Donaldson, DO [address] [place] [address] Social History Tobacco Use Types Packs/Day Years [...] Routine [facility] OB [address] [place] [phone] Cain Donaldson DO [address] [place] [address] documented as of this encounter Goals Goal Patient Goal Type Associated Problems Recent Progress Patient-Stated? Author Reminders Care Plan OB Reminders No Open Scheduling, Background documented as of this encounter Procedures Procedure Name Priority Date/Time Associated Diagnosis Comments TBH CREATININE Routine 04/11/2025 4:52 PM EDT SRM[facility] PROTHROMBIN TIME INR W/O COUM Routine 04/11/2025 4:52 PM EDT [facility] AST Routine 04/11/2025 4:52 PM EDT [facility] APTT Routine 04/11/2025 4:52 PM EDT ALL URIC ACID Routine 04/11/2025 4:52 PM EDT ALL LDH Routine 04/11/2025 4:52 PM EDT ALL CBC WITH AUTO DIFF Routine 04/11/2025 4:52 PM EDT ALL BUN Routine 04/11/2025 4:52 PM EDT documented in this encounter Results * [facility] APTT (04/11/2025 4:52 PM EDT) PARTIAL THROMBOPLASTIN TIME 27.3 22.3 - 36.2 sec TBH 04/11/2025 4:52 PM EDT 04/11/2025 4:56 PM EDT Narrative CLINISYNC - 04/11/2025 5:57 PM EDT us Cain Veeo DO CLINISYNC Final Result CLINISYNC TB * SRMCOH PROTHROMBIN TIME INR W/O COUM (04/11/2025 4:52 PM EDT) PROTHROMBIN TIME 9.9 9.0 - 11.6 sec TBH TBH INR 0.93 TBH Comment: DESIRED INR: 2.0-3.0 CONDITIONS NOT LISTED BELOW 2.5-3.5 FOR PROSTHETIC HEART VALVE REPLACEMENT 2.5-3.5 RECURRENT THROMBOSIS 04/11/2025 4:52 PM EDT 04/11/2025 4:56 PM EDT Narrative CLINISYNC - 04/11/2025 5:57 PM EDT Cain Veeo DO CLINISYNC Final Result CLINISYVANESSA TB * (ABNORMAL) ALL CBC WITH AUTO DIFF (04/11/2025 4:52 PM EDT) TB WBC 7.3 4.0 - 11.0 10 [...] CLINISYNC - 04/11/2025 5:53 PM EDT us Cain Mendoza DO CLINISYNC Final Result CLINISYNC TBH * ALL LDH (04/11/2025 4:52 PM EDT) LACTATE DEHYDROGENASE 153 81 - 234 U/L TBH 04/11/2025 4:52 PM EDT 04/11/2025 4:56 PM EDT Narrative CLINISYNC - 04/11/2025 5:52 PM EDT us Cain Mendoza DO CLINISYNC Final Result Performing Organization Address [facility]/ZIP Co de Phone Number CLINISYNC TBH * (ABNORMAL) [facility]CF AST (04/11/2025 4:52 PM EDT) ASPARTATE AMINO TRANSFERASE 11(L) 15 - 37 U/L TBH 04/11/2025 4:52 PM EDT 04/11/2025 4:56 PM EDT Narrative CLINISYNC - 04/11/2025 5:52 PM EDT us Cain Mendoza DO CLINISYNC Final Result CLINISYNC TBH * ALL URIC ACID (04/11/2025 4:52 PM EDT) URIC ACID 2.8 2.6 - 6.0 mg/dL TBH 04/11/2025 4:52 PM EDT 04/11/2025 4:56 PM EDT Narrative CLINISYNC - 04/11/2025 5:52 PM EDT us Cain Mendoza DO CLINISYNC Final Result CLINISYNC TBH * (ABNORMAL) TBH CREATININE (04/11/2025 4:52 PM EDT) CREATININE 0.36(L) 0.55 - 1.02 mg/dL TBH TBH EGFR-AF YEMENI >60 >=60 mL/min/1.7 3m 2 TBH TBH EGFR-NON AF YEMENI >60 >=60 mL/min/1.7 3m 2 TBH 04/11/2025 4:52 PM EDT 04/11/2025 4:56 PM EDT Narrative CLINISYNC - 04/11/2025 5:52 PM EDT us Cain Mendoza DO CLINISYNC Final Result CLINISYNC TB * ALL BUN (04/11/2025 4:52 PM EDT) BLOOD UREA NITROGEN 11.0 7.0 - 18.0 mg/dL TB 04/11/2025 4:52 PM EDT 04/11/2025 4:56 PM EDT Narrative CLINISYNC - 04/11/2025 5:52 PM EDT Cain Mendoza DO CLINISYNC Final Result CLINISYNC TB documented in this encounter Visit Diagnoses Not on filedocumented in this encounter Additional Health Concerns Active Problems Noted Date Diagnosed Date OB Reminders 11/26/2024 documented as of this encounter
--- OUTSIDE RECORDS SUMMARY | 2025-04-14 16:56 | XMS_ITS | Encounter Summary ---
Author Organization [facility] Address [address] [place] [address] Care Team Providers Care Metal Mockup Maker Name Role Phone Unavailable Primary Care Provider Unavailabl e Encounter Details Date Type Department Care Team (Late st Contact Info) Description 11/12/[address] [facility] OB [address] [facility] [place] [phone] Cain Donaldson DO [address] [place] [address] Karin [place], [facility] Social History Tobacco Use Types Packs/Day [...] AM EDT Routine [facility] [address] [facility] [place] [phone] Cain Donaldson, [facility] [place] [address] documented as of this encounter Visit Diagnoses Not on filedocumented in this encounter
--- OUTSIDE RECORDS SUMMARY | 2025-04-14 16:56 | XMS_ITS | Encounter Summary ---
Author Organization [facility] Address [address] [place] [address] Care Team Providers Care Insurance Administrative Assistant Name Role Phone Unavailable Primary Care Provider Unavailabl e Encounter Details Date Type Department Care Team (Late Contact Info) Description 04/11/2025 Clinisync Result Encounter NOMS External Department Unsolicited Alfredo Donaldson, DO [address] [place] [address] Social History Tobacco Use Types Packs/Day Years [...] Routine [facility] B[facility] OB [address] [place] [phone] Alfredo Donaldson DO [address] [place] [address] documented as of this encounter Goals Goal Patient Goal Type Associated Problems Recent Progress Patient-Stated? Author Reminders Care Plan OB Reminders No Open Scheduling, Background documented as of this encounter Procedures Procedure Name Priority Date/Time Associated Diagnosis Comments US OB BPP W NON-STRESS 04/11/2025 7:34 PM EDT documented in this encounter Results * US OB BPP W NON-STRESS (04/11/2025 7:34 PM EDT) Anatomical Region Laterality Modality Other 04/11/2025 7:34 PM EDT Narrative 04/11/2025 7:36 [place] [address] Ultrasound Report Signed Patient: FANNIE WHITE MR#: [id number] : 1995 Acct:[id number] Age/Sex: 29 / F ADM Date: 04/11/25 Loc: US Attending Dr: Belgica Scherer Ordering Physician: Alfredo Donaldson D.O. Date of Service: 04/11/25 Procedure(s): US OB BPP w non-stress Accession Number(s): [id number] cc: Alfredo Donaldson D.O. [place] [address] Patient Name: FANNIE WHITE MRN: [id number] date: 1995 Sex: F Assigned Patient Location: [facility] Current Patient Location: Accession/Order Number: [id number] Exam Date: 04/11/2025 19:33 Report Date: 04/11/2025 [...] Steen M.D. 04/11/2025 7:34 PM Dictation Location: [place] [address] Electronically authenticated by: [id number] Y Date: 04/11/2025 19:34 Dictated By: Zion Steen D.O. Signed By: 04/11/251935 DD/ 33 TD/TT: Packer Operator Automatic: Procedure Note Radiology, Radiologist, - 04/11/2025 [place] [id number] Ultrasound Report Signed Patient: FANNIE WHITEMR#: [id number] : 1995Acct:[id number] Age/Sex: 29 / FADM Date: 04/11/25 Loc: US Attending Dr: Belgica Scherer Ordering Physician: Alfredo Donaldson D.O. Date of Service: 04/11/25 Procedure(s): US OB BPP w non-stress Accession Number(s): [id number] cc: Alfredo Donaldson D.O. [place] [id number] Patient Name: FANNIE WHITE MRN: [id number] date: 1995 Sex: F Assigned Patient Location: [facility] Current Patient Location: Accession/Order Number: [id number] Exam Date: 04/11/2025 19:33 Report Date: 04/11/2025 [...] Steen M.D. 04/11/2025 7:34 PM Dictation Location: [place] [address] Electronically authenticated by: [id number] Y Date: 9:34 Dictated By: Zion Steen D.O. Signed By:04/11/251935 DD/ 33 TD/TT: Packer Operator Automatic: us Alfredo Donaldson DO [facility] IMAGING Final Result documented in this encounter Visit Diagnoses Not on filedocumented in this encounter Additional Health Concerns Active Problems Noted Date Diagnosed Date OB Reminders 11/26/2024 documented as of this encounter
--- OUTSIDE RECORDS SUMMARY | 2025-04-14 16:57 | XMS_ITS | Encounter Summary ---
Author Organization [facility] Address [id number] [address] [place] [address] Care Team Providers Care Air Defence Officer Name Role Phone Unavailable Primary Care Provider Unavailabl e Reason for Referral * Medication Prior Authorization - Closed Specialty Diagnoses / Procedures Referred By Contgonzalez t Referred To Contact Diagnoses Insulin controlled gestational diabetes mellitus (GDM) in second trimester Prediabetes in mother during Devika Pulido PA-C [address] [facility] [address] [address] Phone: tel: fax: Referral ID Status Reason Start Date Expiration Date Visits Re quested Visits Authorized [id number] Closed 1 1 Encounter Details Date Type Department Care Team (Latest Contact Info) Description 04/11/2025 Remote Patient Monitoring Maternal- Medicine at [facility] [address] [place] [phone] Devika Pulido PA-C [address] [id number] Insulin controlled gestational diabetes mellitus (GDM) in [...] 11:30 AM EDT Telemedicine Maternal- Medicine at [facility] [address] [place] [phone] Devika Pulido PA-C [address] [address] 05/12/2025 8:00 AM EDT Appointment Maternal Medicine [place] [address] [facility] [address] [place] [address] documented as of this encounter Visit Diagnoses Diagnosis Insulin controlled gestational diabetes mellitus (GDM) in second trimester Prediabetes in mother during documented in this encounter Additional Health Concerns Assessment Noted Time PHQ-9 Depression Total Score: 2 07/03/20 16 9:00 AM EDT documented as of this encounter
--- OUTSIDE RECORDS SUMMARY | 2025-04-14 16:57 | XMS_ITS | Encounter Summary ---
Author Organization [facility] tem Address [id number] [address] [place] [address] Care Team Providers Care Medical File Clerk Name Role Phone Unavailable Primary Care Provider Unavailabl e Encounter Details Date Type Department Care Team (Late st Contact Info) Description 04/11/2025 Orders Only Maternal- Medicine at [facility] [address] [place] [phone] Devika Pulido PA-C [address] [address] Social History Tobacco Use Types Packs/Day Years [...] 11:30 AM EDT Telemedicine Maternal- Medicine at [facility] [address] [place] [address] Devika Pulido, PAMoniqueC [address] [address] 05/12/2025 8:00 AM EDT Appointment Maternal Medicine [place] [address] [facility] [address] [place] [phone] documented as of this encounter Visit Diagnoses Not on filedocumented in this encounter Additional Health Concerns Assessment Noted Time PHQ-9 Depression Total Score: 2 07/03/20 16 9:00 AM EDT documented as of this encounter
[2025-04-14 17:00] VITALS: BP 124/65; PULSE 77
== END 2025-04-14 17:30 | disposition home or self-care (01) ==
LOC: FBCO 16:54 → FBC 16:56
PROVIDERS: PCP Obstetrics & Gynecology; Visit Provider Obstetrics & Gynecology
DX: O24.419 Gestational diabetes mellitus in pregnancy, unspecified control (principal); Z3A.29 29 weeks gestation of pregnancy
CPT/HCPCS: 59025

== ENCOUNTER 2025-04-17 10:30 | Outpatient (REF) | payer BC, SELFPAY ==
--- OUTSIDE RECORDS SUMMARY | 2025-01-21 11:10 | XMS_ITS | Continuity of Care Document ---
Author Organization [facility] Address [address] [place] [address] Phone Care Team Providers Care Bowling Or Skating Front Desk Clerk Name Role Phone Miguel Rios Unavailable Unavailable [...] Diagnoses Date Provider Providers Copied on Encounter [facility], [address] [place] [address], [id number] , [place] tel: [phone] [facility] No Information 5 Visci DO Rivera. [address] [place] [address], [id number] , [place]. tel: [phone] [facility], [address] [place] [address], [id number] , [place] tel: [phone] [facility] Encounter for screening for respiratory tuberculosis 5 Visci DO Miguel. [address] [place] [address], [id number] , [place]. tel:[phone] [facility], [address] [place] [address], [id number] , [place] tel: [phone] [facility] No Information 4 Visci DO Miguel. [address] [place] [address], [id number] , [place]. tel: [phone] [facility], [address] [place] [address], [id number] , [place] tel:+ [phone] [facility] Lab Draw (chief complaint) Other specified disorders of pancreatic internal secretionSubclinical iodine-deficiency hypothyroidismEncount er for screening for other viral diseasesEncounter for screening for other infectious disease 4 Cynthia White. [address], [place], 4450632[address] , [place]. tel: [phone] [facility], [address], [place], [id number] , [place] tel: [phone] [facility] lab draw (chief complaint) Encounter for screening for other viral diseases 4 Cynthia White. [address], [place], 846396636 , [place]. tel: [phone] [facility], [address], [place], 858909890 , [place] tel: [phone] [facility] No Information 4 Cynthia White. [address], [place], [id number] , [place]. tel: [phone] [facility], [address], [place], 586948345 , [place] tel: [phone] [facility] Encounter for screening for respiratory tuberculosis 4 Cynthia White. [address], [place], [id number] , [place]. tel: [phone] [facility], [address], [place], [id number] , [place] tel: [phone] [facility] Lab draw (chief complaint) Blood test prior to procedure 4 Cynthia White. [address], [place], [id number] , [place]. tel: [phone] Referring Provider: Tenisha Leon [place]. [facility], [address], [place], [id number] , [place] tel: [phone] [facility] No Information 3 Cynthia White. [address], [place], 510432553 , [place]. tel: [phone] [facility], [address], [place], [id number] , [place] tel: [phone] [facility] COVID Test (chief complaint) Encounter for screening for COVID-19 3 Cynthia White. [address], [place], 044271096 , [place]. tel: [phone] [facility], [address], [place], 678422383 , [place] tel: [phone] [facility] Lab Draw (chief complaint) Encounter for antibody response examination 3 Cynthia White. [address], [place], 286239956 , [place]. tel: [phone] [facility], [address] [place] [address], [id number] , [place] tel: [phone] [facility] lab (chief complaint) Other specified disorders of pancreatic internal secretion 3 Cynthia White. [address], [place], 651934949 , [place]. tel: [phone] [facility], [address] [place] [address], [id number] , [place] tel: [phone] [facility] Lab draw (chief complaint) Blood test prior to procedure 3 Cynthia White. [address], [place], 525655412 , [place]. tel: [phone] [facility], [address] [place] [address], [id number] , [place] tel: [phone] [facility] lab draw (chief complaint) Endocrine disorder 3 Cynthia White. [address], [place], 395375311 , [place]. tel: [phone] [facility], [address] [place] [address], [id number] , [place] tel: [phone] [facility] Encounter for screening for COVID-19 3 Visci DO Miguel. [address], [place], 085924445 , [place]. tel: [phone] [facility], [address], [place], 659854120 , [place] tel: [phone] [facility] Lab draw (chief complaint) Blood test prior to procedureEncounter for screening for COVID-19 3 Visci DO Miguel. [address], [place], 171992882 , [place]. tel: [phone] [facility], [address], [place], [id number] , [place] tel: [phone] [facility] No Information 3 Visci DO Miguel. [address], [place], [id number] , [place]. tel: [phone] [facility], [address], [place], 353984788 , [place] tel: [phone] [facility] No Information 3 Visci DO Miguel. [address], [place], [id number] , [place]. tel: [phone] [facility], [address], [place], 646158174 , [place] tel: [phone] [facility] No Information 2 Visci DO Miguel. [address], [place], [id number] , [place]. tel: [phone] [facility], [address], [place], 917042936 , [place] tel: [phone] [facility] No Information 2 Visci DO Miguel. [address], [place], 477441188 , [place]. tel: [phone] [facility], [address], [place], 823461122 , [place] tel: [phone] [facility] No Information 2 Visci DO Miguel. [address], [place], 480773042 , [place]. tel: [phone] [facility], [address], [place], 548218079 , [place] tel: [phone] [facility] Encounter for screening for respiratory tuberculosis 2 Visci DO Miguel. [address], [place], 876269247 , [place]. tel: [phone] [facility], [address], [place], 753874176 , [place] tel: [phone] [facility] Encounter for screening for respiratory tuberculosis 2 Visci DO Miguel. [address], [place], 437805884 , [place]. tel: [phone] [facility], [address], [place], 842221835 , [place] tel: [phone] [facility] Encounter for screening for respiratory tuberculosis 2 Visci DO Miguel. [address], [place], 168811631 , [place]. tel: [phone] [facility], [address], [place], 710881287 , [place] tel: [phone] [facility] No Information 1 Visci DO Miguel. [address], [place], 453759129 , [place]. tel: [phone] [facility], [address], [place], 094080729 , [place] tel: [phone] [facility] No Information 1 Visci DO Miguel. [address], [place], [id number] , [place]. tel: [phone] [facility], [address], [place], 170207120 , [place] tel: [phone] [facility] No Information 1 Visci DO Miguel. [address], [place], 156558810 , [place]. tel:[phone] Family History Family Member Type Diagnosis Age [...] Record Payers Payer name Insurance type Covered democrat ID Authoriza tion(s) [place] [employer] [id number] [place] [employer] [id number] [place] [employer] [id number] [place] [employer] [id number] [place] [employer] [id number] [place] [employer] [id number] [place] [employer] [id number] Social History Type Description Quantity Date Captured [...] use screening . Due on due Goal HPV. Due on due Goal PRAPARE ASSESSMENT. Due on M due Goal Tdap Vaccine. Due on 2031 due Goal Influenza vaccine. Due on due Goal Hep A. Due on du e Goal Unhealthy drug use screening . Due on due Goal Depression screening. Due on due Goal RLP. Due on due Goal Tdap due Goal Hepatitis C screening. Due o n due Goal Tdap due Goal Tdap Vaccine. [...] Due on due Goal Tdap due Goal Tdap Vaccine. [...] n due Goal PRAPARE ASSESSMENT. Due on N due Goal Hepatitis C screening. Due o n due Goal Tdap due Goal HPV. Due on due Goal Hep A. Due on du e Goal Depression screening. Due on due Goal RLP. Due on due Goal Unhealthy drug use screening . Due on due Goal Influenza vaccine. Due on due Goal Tdap Vaccine. Due on 2031 due Goal Depression screening. Due on due Goal Tdap Vaccine. Due on 2031 due Goal Tdap due Goal Hep A. Due on du e Goal PRAPARE ASSESSMENT. Due on S due Goal Influenza vaccine. Due on due Goal RLP. Due on due Goal Influenza vaccine. Due on due Goal Tdap due Goal Depression screening. Due on due Goal PRAPARE ASSESSMENT. Due on due Goal Tdap Vaccine. Due on 2031 due Goal PAP. Due on due Goal RLP. Due on due Goal Hep A. Due on du e Goal Depression screening. Due on due Goal Tdap due Goal PAP. Due on due Goal Tdap Vaccine. Due on 2031 due Goal RLP. Due on due Goal Influenza vaccine. Due on Au due Goal PRAPARE ASSESSMENT. Due on A due Goal PRAPARE ASSESSMENT. Due on due Goal Tdap due Goal RLP. Due on due Goal Depression screening. Due on due Goal PAP. Due on due Goal Influenza vaccine. Due on due Goal Tdap Vaccine. Due on 2031 due Goal Hep A. Due on du e Goal Influenza vaccine. Due on due Goal Depression screening. Due on due Goal PRAPARE ASSESSMENT. Due on due Goal PAP. Due on due Goal Tdap due Goal RLP. Due on due Goal Tdap Vaccine. Due on 2031 due Goal PAP. Due on due Goal Tdap Vaccine. Due on 2031 due Goal Tdap due Goal Influenza vaccine. Due on due Goal PRAPARE ASSESSMENT. Due on M due Goal RLP. Due on due Goal Hep A. Due on du e Goal Depression screening. Due on due Goal Influenza vaccine. Due on due Goal RLP. Due on due Goal PAP. Due on due Goal PRAPARE ASSESSMENT. Due on M due Goal Hep A. Due on du e Goal Depression screening. Due on due Goal Tdap due Goal Tdap Vaccine. Due on 2031 due Goal Tdap due Goal PAP. Due on due Goal PRAPARE ASSESSMENT. Due on M due Goal Depression screening. Due on due Goal Hep A. Due on du e Goal Influenza vaccine. Due on due Goal RLP. Due on due Goal Tdap Vaccine. Due on 2031 due Goal PAP. Due on due Goal Depression screening. Due on due Goal Influenza vaccine. Due on Or due Goal PRAPARE ASSESSMENT. Due on M due Goal Hep A. Due on du e Goal Tdap due Goal RLP. Due on due Goal Tdap Vaccine. Due on 2031 due Goal Hep A. Due on du e Goal Influenza vaccine. Due on due Goal PRAPARE ASSESSMENT. Due on due Goal Tdap due Goal PAP. Due on due Dec-05-2022 Goal RLP. Due on due Goal Depression [...]
--- OUTSIDE RECORDS SUMMARY | 2025-01-21 11:10 | XMS_ITS | Continuity of Care Document ---
Author Organization [facility] Address [address] [place] [address] Phone Care Team Providers Care Treasury Assistant Name Role Phone Miguel Rios Unavailable Unavailable [...] Date Provider Providers Copied on Encounter [facility], [address] [place] [address], [id number] , [place] tel: [phone] [facility] No Information 5 Visci DO Rivera. [address] [place] [address], [id number] , [place]. tel: [phone] [facility], [address] [place] [address], [id number] , [place] tel: [phone] [facility] Encounter for screening for respiratory tuberculosis 5 Visci DO Miguel. [address] [place] [address], [id number] , [place]. tel:[phone] [facility], [address] [place] [address], [id number] , [place] tel: [phone] [facility] No Information 4 Visci DO Miguel. [address] [place] [address], [id number] , [place]. tel: [phone] [facility], [address] [place] [address], [id number] , [place] tel:[phone] [facility] Lab Draw (chief complaint) Other specified disorders of pancreatic internal secretionSubclinical iodine-deficiency hypothyroidismEncount er for screening for other viral diseasesEncounter for screening for other infectious disease 4 Cynthia White. [address], [place], 909940786 , [place]. tel: [phone] [facility], [address], [place], 461166803 , [place] tel: [phone] [facility] lab draw (chief complaint) Encounter for screening for other viral diseases 4 Cynthia White. [address], [place], 514019000 , [place]. tel: [phone] [facility], [address], [place], 219108663 , [place] tel: [phone] [facility] No Information 4 Cynthia White. [address], [place], 576501307 , [place]. tel: [phone] [facility], [address], [place], 591530153 , [place] tel: [phone] [facility] Encounter for screening for respiratory tuberculosis 4 Cynthia White. [address], [place], 721103273 , [place]. tel: [phone] [facility], [address], [place], 160724834 , [place] tel: [phone] [facility] Lab draw (chief complaint) Blood test prior to procedure 4 Cynthia White. [address], [place], [id number] , [place]. tel: [phone] Referring Provider: Tenisha Leon [place]. [facility], [address], [place], [id number] , [place] tel: [phone] [facility] No Information 3 Cynthia White. [address], [place], 168735802 , [place]. tel: [phone] [facility], [address], [place], 606532358 , [place] tel: [phone] [facility] COVID Test (chief complaint) Encounter for screening for COVID-19 3 Cynthia White. [address], [place], 481526182 , [place]. tel: [phone] [facility], [address], [place], 467672929 , [place] tel: [phone] [facility] Lab Draw (chief complaint) Encounter for antibody response examination 3 Cynthia White. [address], [place], 762670184 , [place]. tel: [phone] [facility], [address] [place] [address], [id number] , [place] tel: [phone] [facility] lab (chief complaint) Other specified disorders of pancreatic internal secretion 3 Cynthia White. [address], [place], 255683486 , [place]. tel: [phone] [facility], [address] [place] [address], [id number] , [place] tel: [phone] [facility] Lab draw (chief complaint) Blood test prior to procedure 3 Cynthia White. [address], [place], 806706194 , [place]. tel: [phone] [facility], [address] [place] [address], [id number] , [place] tel: [phone] [facility] lab draw (chief complaint) Endocrine disorder 3 Cynthia White. [address], [place], 663117812 , [place]. tel: [phone] [facility], [address] [place] [address], [id number] , [place] tel: [phone] [facility] Encounter for screening for COVID-19 3 Visci DO Miguel. [address], [place], 983467912 , [place]. tel: [phone] [facility], [address], [place], 592131037 , [place] tel: [phone] [facility] Lab draw (chief complaint) Blood test prior to procedureEncounter for screening for COVID-19 3 Visci DO Miguel. [address], [place], 119858256 , [place]. tel: [phone] [facility], [address], [place], 614519452 , [place] tel: [phone] [facility] No Information 3 Visci DO Miguel. [address], [place], 803207655 , [place]. tel: [phone] [facility], [address], [place], 375948927 , [place] tel: [phone] [facility] No Information 3 Visci DO Miguel. [address], [place], 990340966 , [place]. tel: [phone] [facility], [address], [place], 461072988 , [place] tel: [phone] [facility] No Information 2 Visci DO Miguel. [address], [place], 691741591 , [place]. tel: [phone] [facility], [address], [place], 714032508 , [place] tel: [phone] [facility] No Information 2 Visci DO Miguel. [address], [place], 635937355 , [place]. tel: [phone] [facility], [address], [place], 082062364 , [place] tel: [phone] [facility] No Information 2 Visci DO Miguel. [address], [place], 157830008 , [place]. tel: [phone] [facility], [address], [place], 794987403 , [place] tel: [phone] [facility] Encounter for screening for respiratory tuberculosis 2 Visci DO Miguel. [address], [place], 136626813 , [place]. tel: [phone] [facility], [address], [place], 350787746 , [place] tel: [phone] [facility] Encounter for screening for respiratory tuberculosis 2 Visci DO Miguel. [address], [place], 455330501 , [place]. tel: [phone] [facility], [address], [place], 246799080 , [place] tel: [phone] [facility] Encounter for screening for respiratory tuberculosis 2 Visci DO Miguel. [address], [place], 966834257 , [place]. tel: [phone] [facility], [address], [place], 447701684 , [place] tel: [phone] [facility] No Information 1 Visci DO Miguel. [address], [place], 978509920 , [place]. tel: [phone] [facility], [address], [place], 060191150 , [place] tel: [phone] [facility] No Information 1 Visci DO Miguel. [address], [place], 383034319 , [place]. tel: [phone] [facility], [address], [place], 040863100 , [place] tel: [phone] [facility] No Information 1 Visci DO Miguel. [address], [place], 212574539 , [place]. tel:[phone] Family History Family Member Type Diagnosis Age [...] Insurance type Covered democrat ID Authoriza tion(s) [place] [employer] [id number] [employer] [id number] [employer] [id number] [employer] [id number] [employer] [id number] [employer] [id number] [place] [employer] [id number] Social History Type Description Quantity Date Captured [...] on 2031 due Goal Tdap due Goal Tdap due Goal Tdap Vaccine. Due on 2031 due Goal Hepatitis C screening. Due o n due Goal PRAPARE ASSESSMENT. Due on A due Goal Hep A. Due on du e Goal RLP. Due on due Goal Influenza [...] du e Goal Influenza vaccine. Due on [place] due Goal Unhealthy drug use screening . [...] on due Goal Influenza vaccine. Due on [place] due Goal PRAPARE ASSESSMENT. Due on due [...]
--- OUTSIDE RECORDS SUMMARY | 2025-04-18 10:27 | XMS_ITS | Encounter Summary ---
Author Organization [facility] Address [address] [place] [address] Care Team Providers Care Biology Laboratory Assistant Name Role Phone Unavailable Primary Care Provider Unavailabl e Encounter Details Date Type Department Care Team (Late st Contact Info) Description 01/10/2025 Abstract [facility] BCP OB [address] [place] [phone] Cain Donaldson, DO [address] [facility] [place] [address] Social History Tobacco Use Types Packs/Day Years [...] as of this encounter Plan of Treatment Not on file documented as of this encounter Goals Goal Patient Goal Type Associated Problems Recent Progress Patient-Stated? Author Reminders Care Plan OB Reminders No Open Scheduling, Background documented as of this encounter Visit Diagnoses Not on filedocumented in this encounter Additional Health Concerns Active Problems Noted Date Diagnosed Date OB Reminders 11/26/2024 documented as of this encounter
--- OUTSIDE RECORDS SUMMARY | 2025-04-18 10:27 | XMS_ITS | Encounter Summary ---
Author Organization [facility] Address [address] [place] [address] Care Team Providers Care Beam Dyer Operator Name Role Phone Unavailable Primary Care Provider Unavailabl e Encounter Details Date Type Department Care Team (Late st Contact Info) Description 01/27/2025 Orders Only [facility] [address] [place] [phone] Damaris Lopez LPN [address] [place] [address] Social History Tobacco Use Types Packs/Day Years [...]
--- OUTSIDE RECORDS SUMMARY | 2025-04-18 10:27 | XMS_ITS | Encounter Summary ---
Author Organization [facility] tem Address [facility]-[id number] [address] [place] [address] Care Team Providers Care Peanut Grader Name Role Phone Unavailable Primary Care Provider Unavailabl e Encounter Details Date Type Department Care Team (Late st Contact Info) Description 04/12/2025 Telephone Maternal- Medicine at [facility] [address] [place] [phone] Sonya Lomax, RN Social History Tobacco Use [...] Telemedicine Maternal- Medicine at [facility] [address] [place] [phone] Devika Pulido, JASON [address] [address] 05/12/2025 8:00 AM EDT Appointment Maternal Medicine [place] [address] [facility] [address] [place] [address] documented as of this encounter Visit Diagnoses Not on filedocumented in this encounter Additional Health Concerns Assessment Noted Time PHQ-9 Depression Total Score: 2 07/03/20 16 9:00 AM EDT documented as of this encounter
--- OUTSIDE RECORDS SUMMARY | 2025-04-18 10:27 | XMS_ITS | Clinical Summary ---
Author Organization [facility] Address [address] [place] [address] Care Team Providers Care Dialysis Nurse Name Role Phone Unavailable Primary Care Provider Unavailabl e Encounters Date Type Department Care Team Description 02/08/2025 6:04 PM EDT - 02/08/2025 11:59 PM EDT Hospital Encounter [facility] [address] [place] [address] Discharge Disposition: Home or Self Care from [...] Cutoff Neural Tube Defects Risks 1:1030 < 1:52707 1:250 Comments: The risk of an open neural tube defect is less than the screening cut-off. This test was developed and its performance characteristics determined by [facility]. It has not been cleared or approved [...] LABORATORY Comment: (NOTE) Initial sample Performed By: [facility] [address] [place] [address] Calender Inspector: Jose Joseph MD, PhD CLIA Number: [id number] 02/08/2025 6:07 PM EDT 02/08/2025 6:09 PM EDT Christy Schwartz PA-C CHEMISTRY ORDERABLES Final Resu lt [facility] [address] [place], [place] [id number] [place] [address] [facility] [address] [phone] * Hepatitis C Antibody (12/23/2024 6:10 PM EST) Hepatitis C Ab NONREACTIVE NONREACTIVE 12/23/19 6:10 PM EST [facility] Comment: The hepatitis C procedure used in [...] ORDERABLES Fin al Result Performing Organization Address City/[facility]/ZIP Co de Phone Number [facility] [address] [place] [address], [facility] [phone] [facility] [address] [place] [address], [facility] [phone] * HIV Screen (12/23/2024 6:10 PM EST) HIV Ag/Ab NONREACTIVE NONREACTIVE 12/23/2024 6:10 PM EST [facility] Comment: No laboratory evidence of HIV infection. If acute HIV infection is suspected, consider testing for HIV-1 RNA. 12/23/2024 6:10 PM EST 12/23/2024 6:12 PM EST Cain Donaldson MD IMMUNOLOGY ORDERABLES Fin al Result Performing Organization Address [facility] Co de Phone Number [facility] [address] [place] [place] [address], [facility] [phone] [facility] [address] [place] [address], [facility] [phone] from Last 3 Months or Most Recently Relevant to Health Maintenance Insurance
--- OUTSIDE RECORDS SUMMARY | 2025-04-18 10:27 | XMS_ITS | Encounter Summary ---
Author Organization [facility] Address [address] [place] [address] Care Team Providers Care Banking Analyst Name Role Phone Unavailable Primary Care Provider Unavailabl e Encounter Details Date Type Department Care Team (Late st Contact Info) Description 11/26/2024 Abstract [facility] [address] [facility] [place] [address] Cain Donaldson, DO [address] [facility] [place] [address] Social History Tobacco Use Types Packs/Day Years [...]
--- OUTSIDE RECORDS SUMMARY | 2025-04-18 10:27 | XMS_ITS | Encounter Summary ---
Author Organization [facility] Address [address] [facility] [place] [address] Care Team Providers Care Telemetry Rn Name Role Phone Unavailable Primary Care Provider Unavailabl e Encounter Details Date Type Department Care Team (Late st Contact Info) Description 11/12/2024 Abstract [facility] [address] [facility] [place] [phone] Cain Donaldson, DO [address] [facility] [place] [address] Social History Tobacco Use Types Packs/Day Years [...] on file documented as of this encounter Visit Diagnoses Not on filedocumented in this encounter
--- OUTSIDE RECORDS SUMMARY | 2025-04-18 10:27 | XMS_ITS | Encounter Summary ---
Author Organization [facility] tem Address [id number] [address] 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, antepartum; Severe obesity due to excess calories affecting , antepartum ([facility]); Bipolar disorder, in full remission, most [...] 11:30 AM EDT Telemedicine Maternal- Medicine at [facility] [address] [place] [phone] Devika Pulido PA-C [address] [address] 05/12/2025 8:00 AM EDT Appointment Maternal Medicine Organ [address] [facility] [address] [place] [address] documented as of this encounter [...] due to excess calories affecting , antepartum ([facility]) Bipolar disorder, in full remission, most recent [...] due to excess calories affecting , antepartum ([facility]) Bipolar disorder, in full remission, most recent episode depressed documented in this encounter Additional Health Concerns Assessment Noted Time PHQ-9 Depression Total Score: 2 07/03/20 16 9:00 AM EDT documented as of this encounter
--- OUTSIDE RECORDS SUMMARY | 2025-04-18 10:27 | XMS_ITS | Encounter Summary ---
[facility] Address [id number] [address] [place] [address] Care Team Providers Care Hat Presser Name Role Phone Unavailable Primary Care Provider Unavailabl e Encounter Details Date Type Department Care Team (Late Contact Info) Description 12/30/2024 Orders Only Maternal- Medicine at [address] [phone] Ref Prov, [place] [address] Social History Tobacco Use Types Packs/Day Years [...] Medicine at [facility] [address] [place] [phone] Devika Pulido, PAMoniqueC [address] [address] 05/12/2025 8:00 AM EDT Appointment Maternal Medicine [place] [address] [facility] [address] [place] [address] documented as of this encounter Visit Diagnoses Not on filedocumented in this encounter Additional Health Concerns Assessment Noted Time PHQ-9 Depression Total Score: 2 07/03/20 16 9:00 AM EDT documented as of this encounter
--- OUTSIDE RECORDS SUMMARY | 2025-04-18 10:27 | XMS_ITS | Encounter Summary ---
Author Organization [facility] Address [address] [place] [address] Care Team Providers Care Flue Lining Dipper Name Role Phone Unavailable Primary Care Provider Unavailabl e Encounter Details Date Type Department Care Team (Late st Contact Info) Description 12/24/2024 Abstract [facility] [address] [facility] [place] [phone] Cain Donaldson, DO [address] [facility] [place] [address] Social History Tobacco Use Types Packs/Day Years [...]
--- OUTSIDE RECORDS SUMMARY | 2025-04-18 10:27 | XMS_ITS | Encounter Summary ---
Author Organization [facility] tem Address [facility][id number] [address] [place] [address] Care Team Providers Care Hand Hide Stretcher Name Role Phone Unavailable Primary Care Provider [...] 11:30 AM EDT Telemedicine Maternal- Medicine at [facility] [address] [facility] [place] [address] Devika Pulido, JASON [address] [address] 05/12/2025 8:00 AM EDT Appointment Maternal Medicine [place] [address] [facility] [address] [place] [address] documented as of this encounter Visit Diagnoses Not on filedocumented in this encounter Additional Health Concerns Assessment Noted Time PHQ-9 Depression Total Score: 2 07/03/20 16 9:00 AM EDT documented as of this encounter
--- OUTSIDE RECORDS SUMMARY | 2025-04-18 10:27 | XMS_ITS | Encounter Summary ---
Author Organization [facility] Address [address] [place] [address] Care Team Providers Care Sharepoint Manager Name Role Phone Unavailable Primary Care Provider Unavailabl e Encounter Details Date Type Department Care Team (Late st Contact Info) Description 12/27/2024 Abstract [facility] OB [address] [facility] [place] [phone] Cain Donaldson, DO [address] [facility] [place] [address] Social History Tobacco Use Types Packs/Day Years [...]
--- OUTSIDE RECORDS SUMMARY | 2025-04-18 10:27 | XMS_ITS | Clinical Summary ---
Author Organization [employer] tem Address [id number] [address] [place] [address] Care Team Providers Care Gage Maker Name Role Phone Unavailable Primary Care [...] second trimester,Pred iabetes in mother during Inject 25 units subcutaneously in abdomen every evening 15 mL 3 025 Active insulin glargine (LANTUS SOLOSTAR U-100 INSULIN) 100 unit/mL (3 mL) insulin penIndications :Insulin controlled gestational diabetes mellitus (GDM) in second trimester,Pred iabetes in mother during Inject 19 units subcutaneously in abdomen every evening 15 mL 3 025 2024 Discontinued(R eorder) insulin glargine (LANTUS SOLOSTAR U-100 INSULIN) 100 unit/mL (3 mL) insulin penIndications :Insulin controlled gestational diabetes mellitus (GDM) in second trimester,Pred iabetes in mother during Inject 22 units subcutaneously in abdomen every evening 15 mL 3 025 2024 Discontinued Active Problems Problem Noted Date Diagnosed Date [...] Date Type Department Care Team Description 04/14/2025 Travel 04/12/2025 Telephone Maternal- Medicine at [facility] [address] [place] [address] Sonya Lomax RN 04/11/2025 Orders Only Maternal- Medicine at [facility] [address] [place] [address] Devika Pulido PA-C 04/11/2025 Remote Patient Monitoring Maternal- Medicine at [facility] [address] [place] [address] Devika Pulido, PA-C Insulin controlled gestational diabetes mellitus (GDM) in second trimester; Prediabetes in mother during 03/30/2025 1:30 PM EDT Telemedicine Maternal- Medicine at [facility] [address] [place] [address] Sintia Martinez, 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-[employer] ATTENDANT Insulin controlled gestational diabetes mellitus (GDM) in second trimester (Primary Dx); Recurrent major depressive disorder, in partial remission; Prediabetes in mother during 03/30/2025 Travel 03/22/2025 Telephone Maternal- Medicine at [facility] [address] [facility] [place] [address] Sonya Lomax RN 03/16/2025 7:48 AM EDT - 03/16/2025 11:59 PM EDT Hospital Encounter [facility] - [facility] US Imaging [address] [place] [address] Insulin controlled gestational diabetes mellitus (GDM) in second trimester; Choroid plexus cyst of fetus affecting care of mother, antepartum, single or unspecified fetus; Heterozygous factor V Leiden affecting in second trimester, antepartum; Severe obesity due to excess calories affecting , antepartum ([facility]) Discharge Disposition: Home 03/16/2025 Telephone Maternal- Medicine at [facility] [address] [place] [address] Sonya Lomax, NARESH 03/15/2025 Travel 03/11/2025 Telephone Maternal- Medicine at [facility] [address] [place] [address] Naomy Thompson RN 03/07/2025 Telephone Maternal- Medicine at [facility] [address] [place] [address] Sonya Lomax RN 03/07/2025 Orders Only Maternal- Medicine at [facility] [address] [place] [address] Cole Wade MD Insulin controlled gestational diabetes mellitus (GDM) in second trimester; Prediabetes in mother during 03/01/2025 Telephone Maternal- Medicine at [facility] [address] [place] [address] Valerie Le, NARESH 02/28/2025 Orders Only Maternal- Medicine at [facility] [address] [place] [address] Devika Pulido PA-C Insulin controlled gestational diabetes mellitus (GDM) in second trimester; Prediabetes in mother during 02/24/2025 1:00 PM EDT Telemedicine Maternal- Medicine at [facility] [address] [place] [address] Sintia Martinez, UMM-RHONDA Insulin controlled gestational diabetes mellitus (GDM) in second trimester (Primary Dx); Recurrent major depressive disorder, in partial remission; Bipolar 1 disorder ([facility]); Prediabetes in mother during 02/24/2025 Travel 02/23/2025 Travel 02/17/2025 Orders Only Maternal- Medicine at [facility] [address] [place] [address] Christy Prado LPN Insulin controlled gestational diabetes mellitus (GDM) in second trimester; Prediabetes in mother during ; 20 weeks gestation of ; Choroid plexus cyst of fetus affecting care of mother, antepartum, single or unspecified fetus; Heterozygous factor V Leiden affecting in second trimester, antepartum; Severe obesity due to excess calories affecting , antepartum ([facility]); Bipolar disorder, in full remission, most recent episode depressed 02/17/2025 Telephone Maternal- Medicine at [facility] [address] [place] [address] Christy Prado LPN 02/15/2025 Telephone Maternal- Medicine at [facility] [address] [place] [address] Valerie Le, NARESH 02/08/2025 10:00 AM EDT Office Visit Maternal- Medicine at [facility] [address] [place] [address] Jaida Chadwick MD Insulin controlled gestational diabetes mellitus (GDM) in second trimester (Primary Dx); Prediabetes in mother during ; 20 weeks gestation of ; Choroid plexus cyst of fetus affecting care of mother, antepartum, single or unspecified fetus; Heterozygous factor V Leiden affecting in second trimester, antepartum; Severe obesity due to excess calories affecting , antepartum ([facility]); Bipolar disorder, in full remission, most recent episode depressed 02/08/2025 8:35 AM EDT - 02/08/2025 11:59 PM EDT Hospital Encounter [facility] US Imaging [address] [place] [address] Encounter for anatomic survey; Screening, , for anatomic survey Discharge Disposition: Home 02/08/2025 Orders Only Maternal- Medicine at [facility] [address] [place] [address] Christy Prado LPN Insulin controlled gestational diabetes mellitus (GDM) in second trimester (Primary Dx); Choroid plexus cyst of fetus affecting care of mother, antepartum, single or unspecified fetus; Heterozygous factor V Leiden affecting in second trimester, antepartum; Severe obesity due to excess calories affecting , antepartum ([facility]) 02/08/2025 Travel 02/03/2025 Telephone Maternal- Medicine at [facility] [address] [place] [address] Christy Prado LPN 02/03/2025 Telephone Maternal- Medicine at [facility] [address] [place] [address] Christy Prado LPN 01/27/2025 Orders Only Maternal- Medicine at [facility] [address] [place] [address] Sintia Martinez APRN-CNP 01/27/2025 Orders Only Maternal- Medicine at [facility] [address] [place] [address] Sintia Martinez APRN-CNP 01/26/2025 3:30 PM EDT Office Visit Maternal- Medicine at [facility] [address] [place] [address] Sintia Martinez APRN-CNP Insulin controlled gestational diabetes mellitus (GDM) in second trimester (Primary Dx) 01/26/2025 1:30 PM EDT Support Visit Maternal- Medicine at [facility] [address] [place] [address] Insulin controlled gestational diabetes mellitus (GDM) in second trimester 01/26/2025 Refill Maternal- Medicine at [facility] [address] [place] [address] Sintia Martinez APRN-CNP 01/26/2025 Travel from Last 3 Months Family History Medical [...] AM EDT Telemedicine Maternal- Medicine at [facility] [address] [place] [address] Devika Pulido, PA-C [address] [address] 05/12/2025 8:00 AM EDT Appointment Maternal Medicine [place] [address] [facility] [address] [place] [address] Health Maintenance Due Date Last Done Comments [...] Name Priority Date/Time Associated Diagnosis Comments US MFM OB FOLLOW-UP, 1 FETUS Routine 04/14/2025 9:05 AM EDT Encounter for other screening follow-up US [facility] OB FOLLOW-UP, 1 FETUS Routine 03/16/2025 9:20 AM EDT Insulin controlled gestational diabetes mellitus (GDM) in second trimester Choroid plexus cyst of fetus affecting care of mother, antepartum, single or unspecified fetus Heterozygous factor V Leiden affecting in second trimester, antepartum Severe obesity due to excess calories affecting , antepartum ([facility]) [facility] COMPREHENSIVE ANATOMIC SURVEY Routine 02/08/2025 11:16 AM [...] due to excess calories affecting , antepartum ([facility]) Bipolar disorder, in full remission, most recent episode depressed PAP SMEAR Routine 11/24/2020 6:26 AM EST Encounter for gynecological examination without abnormal finding from Last 3 Months or Most Recently Relevant to Health Maintenance Results * [facility] OB FOLLOW-UP, 1 FETUS (04/14/2025 9:05 AM EDT) Only the most recent of3 resultswithin the time period is included. Anatomical Region Laterality Modality OB-LECTURER OF PORTUGUESE Ultrasound 04/14/2025 8:07 AM EDT Narrative 04/14/2025 1:39 PM EDT NAME: CINDY GRECO : 1995 SEX: F Accession Number: [id number] ORDERING PHYSICIAN: JAIDA CHADWICK REFERRING PHYSICIAN: ALFREDO PROCTOR Coding ----- --------- Procedures 01849: Follow-up Ultrasound, per fetus Indication ----- --------- Screening for follow-up survey, Screening for congenital cardiac abnormality, resulting from assisted reproductive technology, Gestational diabetes, Obesity in , Depression, Supervision of high risk (LT Choroid plexus cyst)-resolved History ----- --------- OB History 2. Para 0 [id number] Maternal Assessment ----- --------- Physical Exam Height 157 cm, 5 ft 2 in. Weight 105 kg, 232 lb. Initial weight 107 kg, 235 lb. BMI 42.43 kg/m . Initial BMI 42.98 kg/m . Weight gain -1 kg, -3 lb Method ----- --------- Transabdominal ultrasound examination. View: Suboptimal view: limited by position ----- --------- Hernandes . Number of fetuses: 1 Dating ----- --------- Conception: IVF Embryo transfer on: 10/07/2024 IVF / ET 5 d GA by IVF / ET 29 w + 5 d JANIYA by IVF / ET: 06/25/2025 Previous Ultrasound on: 11/10/2024 Type of prior assessment: GA GA at prior assessment date 7 w + 5 d GA by previous U/S 29 w + 6 d JANIYA by previous Ultrasound: 06/24/2025 Ultrasound examination on: 04/14/2025 GA by U/S based upon: AC, BPD, Femur, HC GA by U/S 30 w + 5 d JANIYA by U/S: 06/18/2025 Assigned: based on the IVF / ET date, selected on 02/08/2025 Assigned GA 29 w + 5 d Assigned JANIYA: 06/25/2025 General Evaluation ----- --------- Cardiac activity Present. FHR 125 bpm. Presentation: cephalic Placenta: Placental site: posterior, away from cervical os Umbilical cord: Cord vessels: 3 vessel cord. Insertion site: documented previously Amniotic fluid: Amount of AF: normal amount. MVP 6.5 cm Biometry ----- --------- Standard BPD 78.1 mm 31w 2d 85% Hadlock OFD 104.8 mm 34w 3d >99% Padmini HC 293.5 mm 32w 3d 88% Hadlock Cerebellum tr 36.1 mm 29w 6d 49% Hill AC 264.0 mm 30w 4d 69% Hadlock Femur 54.3 mm 28w 5d 12% Hadlock Humerus 49.8 mm 29w 1d 35% Padmini HC / AC 1.11 EFW 1,528 g 54% Hadlock EFW (lb) 3 lb EFW (oz) 6 oz EFW by: Hadlock ([id number]) Extended Tibia 47.6 mm 28w 6d 23% Padmini Wildlife Ecologist 3.1 mm CM 10.2 mm 99% Nicolaides Head / Face / Neck Cephalic index 0.75 9% Nicolaides Nasal bone: documented previously Extremities / Bony Struc FL / BPD 0.70 FL / HC 0.19 FL / AC 0.21 Other Structures FHR 125 bpm Anatomy ----- --------- The following structures appear normal: Head/Neck: Cranium. Lateral ventricles. Cavum septi pellucidi. Cerebellum. Cisterna magna. Parenchyma. Abdomen: Stomach. Kidneys. Bladder. Small bowel. Large bowel. Spine: Thoracic spine. The following structures could not be adequately visualized: Heart/Thorax: 4-chamber view. Great vessels. The following structures could not be examined: Heart / Thorax Diaphragm. Abdomen Abdom. wall. Cord insertion. Extremities/Skeleton: Left hand. Skeleton The following structures were documented previously: Head / Neck Choroid plexus. Midline falx. Vermis. Neck. Nuchal fold. Face: Lips. Profile. Nose. Nasal bone. Maxilla. Mandible. Orbits. Heart / Thorax RVOT view. LVOT view. 3-vessel view. 1-wdslma-riiuywe view. Right lung. Left lung. Abdomen Right renal artery. Left renal artery. Genitals. Spine Cervical spine. Lumbar spine. Sacral spine. Extremities / Right upper arm. Right forearm. Right hand. Left upper arm. Left forearm. Right upper leg. Right lower leg. Right foot. Left upper leg. Left lower leg. Left foot. Echocardiogram ----- --------- Situs situs solitus (normal) Cardiac position normal Cardiac axis normal Cardiac size normal (approx. 1/3 of thoracic area) Cardiac rhythm regular (normal) 4-chamber view suboptimal LVOT view documented previously RVOT view documented previously 3-vessel view documented previously 0-bqffqg-kmosyos view documented previously Aortic arch view documented previously Ductal arch view documented previously Bicaval view documented previously Interventricular septum suboptimal Venous-atrial connections normal AV connections normal VA connections normal Pulmonary veins documented previously Right atrium suboptimal Left atrium suboptimal Atrial septum suboptimal Foramen ovale suboptimal Right ventricle suboptimal Left ventricle suboptimal Ventricular septum suboptimal Cross-over gr. arteries not examined Main PA not examined Pulmonary arteries not examined Linear insertion of AV valves no Pericardial effusion no Maternal Structures ----- --------- Uterus Visualized Cervix Not visualized Approach - Transabdominal Right Ovary Visualized Size 17 mm x 19 mm x 30 mm. Vol 5.2 cm Left Ovary Visualized Size 32 mm x 31 mm x 17 mm. Vol 8.9 cm Cul de Sac Suboptimal Impression ----- --------- Single viable intrauterine with normal growth. EFW measures at the 54%, AC measures at the 69%. Amniotic fluid MVP measures 6.5 cm. Recommendations ----- --------- Please see [facility] recommendations from prior clinical and/or ultrasound report documentation. The patient is scheduled in four weeks to complete anatomic survey and echocardiogram. Continue testing as previously recommended. Subsequent follow up or other follow up as clinically determined by primary OB provider unless otherwise specified by [facility]. Results forwarded to ordering provider so they can follow up with the patient as necessary. Procedure Note Jaida Chadwick MD - 04/14/2025 NAME: CINDY GRECO : 1995 SEX: F Accession Number: [id number] ORDERING PHYSICIAN: JAIDA CHADWICK REFERRING PHYSICIAN: ALFREDO PROCTOR Coding ----- --------- Procedures [id number]: Follow-up Ultrasound, per fetus Indication ----- --------- Screening for follow-up survey, Screening for congenital cardiacabnormality, resulting from assisted reproductive technology, Gestational diabetes, Obesity in , Depression,Supervision of high risk (LT Choroid plexus cyst)-resolved History ----- --------- OB History 2. Para 0 [id number] Maternal Assessment ----- --------- Physical Exam Height 157 cm, 5 ft 2 in. Weight 105 kg, 232 lb. Initialweight 107 kg, 235 lb. BMI 42.43 kg/m . Initial BMI 42.98 kg/m . Weight gain -1 kg, -3 lb Method ----- --------- Transabdominal ultrasound examination. View: Suboptimal view: limited byfetal position ----- --------- Hernandes . Number of fetuses: 1 Dating ----- --------- Conception: IVF Embryo transfer on: 10/07/2024 IVF / ET 5 d GA by IVF / ET 29 w + 5 d JANIYA by IVF / ET: 06/25/2025 Previous Ultrasound on: 11/10/2024 Type of prior assessment: GA GA at prior assessment date 7 w + 5 d GA by previous U/S 29 w + 6 d JANIYA by previous Ultrasound: 06/24/2025 Ultrasound examination on: 04/14/2025 GA by U/S based upon: AC, BPD, Femur, HC GA by U/S 30 w + 5 d JANIYA by U/S: 06/18/2025 Assigned: based on the IVF / ET date, selected on 02/08/2025 Assigned GA 29 w + 5 d Assigned JANIYA: 06/25/2025 General Evaluation ----- --------- Cardiac activity Present. FHR 125 bpm. Presentation: cephalic Placenta: Placental site: posterior, away from cervical os Umbilical cord: Cord vessels: 3 vessel cord. Insertion site: documentedpreviously Amniotic fluid: Amount of AF: normal amount. MVP 6.5 cm Biometry ----- --------- Standard BPD 78.1 mm 31w 2d 85% Hadlock OFD 104.8 mm 34w 3d >99% Padmini HC 293.5 mm 32w 3d 88% Hadlock Cerebellum tr 36.1 mm 29w 6d 49% Hill AC 264.0 mm 30w 4d 69% Hadlock Femur 54.3 mm 28w 5d 12% Hadlock Humerus 49.8 mm 29w 1d 35% Padmini HC / AC 1.11 EFW 1,528 g 54% Hadlock EFW (lb) 3 lb EFW (oz) 6 oz EFW by: Hadlock ([id number]) Extended Tibia 47.6 mm 28w 6d 23% Padmini Wildlife Ecologist 3.1 mm CM 10.2 mm 99% Nicolaides Head / Face / Neck Cephalic index 0.75 9% Nicolaides Nasal bone: documented previously Extremities / Bony Struc FL / BPD 0.70 FL / HC 0.19 FL / AC 0.21 Other Structures FHR 125 bpm Anatomy ----- --------- The following structures appear normal: Head/Neck: Cranium. Lateral ventricles. Cavum septi pellucidi. Cerebellum.Cisterna magna. Parenchyma. Abdomen: Stomach. Kidneys. Bladder. Small bowel. Large bowel. Spine: Thoracic spine. The following structures could not be adequately visualized: Heart/Thorax: 4-chamber view. Great vessels. The following structures could not be examined: Heart / Thorax Diaphragm. Abdomen Abdom. wall. Cord insertion. Extremities/Skeleton: Left hand. Skeleton The following structures were documented previously: Head / Neck Choroid plexus. Midline falx. Vermis. Neck. Nuchal fold. Face: Lips. Profile. Nose. Nasal bone. Maxilla. Mandible. Orbits. Heart / Thorax RVOT view. LVOT view. 3-vessel view. 3-imwzbp-ezjlhznagdn. Right lung. Left lung. Abdomen Right renal artery. Left renal artery. Genitals. Spine Cervical spine. Lumbar spine. Sacral spine. Extremities / Right upper arm. Right forearm. Right hand. Left upper arm.Left forearm. Right upper leg. Right lower leg. Right foot. Left upper leg. Left lower leg. Left foot. Echocardiogram ----- --------- Situs situs solitus (normal) Cardiac position normal Cardiac axis normal Cardiac size normal (approx. 1/3 of thoracic area) Cardiac rhythm regular (normal) 4-chamber view suboptimal LVOT view documented previously RVOT view documented previously 3-vessel view documented previously 9-rrguqd-ubisokp view documented previously Aortic arch view documented previously Ductal arch view documented previously Bicaval view documented previously Interventricular septum suboptimal Venous-atrial connections normal AV connections normal VA connections normal Pulmonary veins documented previously Right atrium suboptimal Left atrium suboptimal Atrial septum suboptimal Foramen ovale suboptimal Right ventricle suboptimal Left ventricle suboptimal Ventricular septum suboptimal Cross-over gr. arteries not examined Main PA not examined Pulmonary arteries not examined Linear insertion of AV valves no Pericardial effusion no Maternal Structures ----- --------- Uterus Visualized Cervix Not visualized Approach - Transabdominal Right Ovary Visualized Size 17 mm x 19 mm x 30 mm. Vol 5.2 cm Left Ovary Visualized Size 32 mm x 31 mm x 17 mm. Vol 8.9 cm Cul de Sac Suboptimal Impression ----- --------- Single viable intrauterine with normal growth. EFWmeasures at the 54%, AC measures at the 69%. Amniotic fluid MVP measures 6.5 cm. Recommendations ----- --------- Please see MFM recommendations from prior clinical and/or ultrasoundreport documentation. The patient is scheduled in four weeks to complete anatomic survey andfetal echocardiogram. Continue testing as previously recommended. Subsequent follow up or other follow up as clinically determined byprimary OB provider unless otherwise specified by MFM. Results forwarded to ordering provider so they can follow up with thepatient as necessary. Jaida Chadwick MD [facility] ORDERABLES Final Result * Unlisted Lab Test (02/08/2025) 02/08/2025 Jaida Chadwick MD LAB BLOOD ORDERABLES Final Resul t SUNQUEST * Pap Smear (11/24/2020 6:26 AM EST) 11/24/2020 6:26 AM EST 11/24/2020 6:35 AM EST Narrative COPATH - 11/28/2020 11:[address] [facility] [address] [place] [address] Gynecologic Cytology Consultation Patient Name: KEVIN MOORE : 1995 (Age: 25) Gender: F Taken: 11/24/2020 Reported: 11/28/2020 Physician(s): Al Orr M.D. ( ) Copy To: Med. Rec. #: [id number] Acct: # [id number] Final Cytologic Interpretation ThinPrep Pap Test (Cervical): Satisfactory for evaluation. A transformation zone component was not noted. NEGATIVE FOR INTRAEPITHELIAL LESION OR MALIGNANCY. [facility]/11/28/2020 Interpret[place] [address], License number: [id number]. Electronically Signed Out By PAUL Lopez(ASCP) Date of Last Menstrual Period: 09/12/2020 Other Clinical Conditions: Z01.419 Barrel Coater exam wo/abn findings Source of Specimen ThinPrep Pap Test (Cervical) Thin Prep Pap ([employer]UR[employer] PORTUGUESE) Fee Code(s): G0145 The Pap test is a screening test with an inherent, but low, probability of error. The Pap test is primarily effective for the diagnosis and prevention of squamous cell carcinoma. Regular screening is critical for prevention. ThinPrep liquid-based slides, which meet the Direct Care Counselor criteria for automated screening, have been screened by the ThinPrep Imaging System (as of 07/20/07) along with an additional manual rescreening by a curb hop and, if indicated, by a pathologist. Al Orr MD PATHOLOGY/CYTOLOGY ORDERABLE S Final Result COPATH from Last 3 Months or Most Recently Relevant to Health Maintenance Insurance ANTHEM ANTHEM
--- OUTSIDE RECORDS SUMMARY | 2025-04-18 10:27 | XMS_ITS | Encounter Summary ---
Author Organization [facility] Address [address] [place] [address] Care Team Providers Care Gold Leaf Printer Name Role Phone Unavailable Primary Care Provider Unavailabl e Encounter Details Date Type Department Care Team (Late st Contact Info) Description 03/18/2025 Abstract [facility] [address] [place] [id number] Yue Dumont [place] Social History Tobacco Use [...]
--- OUTSIDE RECORDS SUMMARY | 2025-04-18 10:28 | XMS_ITS | Encounter Summary ---
Author Organization [facility] Address [address] [place] [address] Care Team Providers Care Corporate Compliance Director Name Role Phone Unavailable Primary Care Provider Unavailabl e Encounter Details Date Type Department Care Team (Late st Contact Info) Description 04/05/2025 Clinisync Result Encounter [facility] External Department Unsolicited Alfredo Donaldson, DO [address] [facility] [address] [place] [address] Social History Tobacco Use Types Packs/Day Years [...] PM EDT Narrative 04/05/2025 6:01 PM EDT [facility] [place] [id number] Ultrasound Report Signed Patient: KEVIN WHITE MR#: [id number] : 1995 Acct:[id number] Age/Sex: 29 / F ADM Date: 04/05/25 Loc: [facility] 250-[address]: Belgica Scherer Ordering Physician: Alfredo Donaldson D.O. Date of Service: 04/05/25 Procedure(s): US OB BPP w non-stress Accession Number(s): [id number] cc: Alfredo Donaldson D.O. [facility] [place] [address] Patient Name: KEVIN WHITE MRN: [id number] date: 1995 Sex: F Assigned Patient Location: [facility] Current Patient Location: [facility] Accession/Order Number: [id number] Exam Date: 04/05/2025 17:57 Report Date: 04/05/2025 [...] Steen M.D. 04/05/2025 5:58 PM Dictation Location: [place] [address] Electronically authenticated by: [id number] Y Date: 04/05/2025 17:58 Dictated By: Zion Steen D.O. Signed By: 04/05/25 180 DD/ 175 TD/TT: Diesel Engine Erector: Procedure Note Radiology, Radiologist, MD - 04/05/2025 [facility] [place] [id number] Ultrasound Report Signed Patient: KEVIN WHITEMR#: [id number] : 1995Acct:[id number] Age/Sex: 29 / FADM Date: 04/05/25 Loc: [facility] 250-[address]: Belgica Scherer Ordering Physician: Alfredo Donaldson D.O. Date of Service: 04/05/25 Procedure(s): US OB BPP w non-stress Accession Number(s): [id number] cc: Alfredo Donaldson D.O. [place] [address] Patient Name: KEVIN WHITE MRN: [id number] date: 1995 Sex: F Assigned Patient Location: [facility] Current Patient Location: [facility] Accession/Order Number: [id number] Exam Date: 04/05/2025 17:57 Report Date: 04/05/2025 [...] Steen M.D. 04/05/2025 5:58 PM Dictation Location: [place] [address] Electronically authenticated by: [id number] Y Date: 7:58 Dictated By: Zion Steen D.O. Signed By:04/05/25 1801 DD/ 1758 TD/TT: Diesel Engine Erector: us Alfredo Donaldson DO [facility] Final Result documented in this encounter Visit Diagnoses Not on filedocumented in this encounter Additional Health Concerns Active Problems Noted Date Diagnosed Date OB Reminders 11/26/2024 documented as of this encounter
--- OUTSIDE RECORDS SUMMARY | 2025-04-18 10:28 | XMS_ITS | Encounter Summary ---
Author Organization [facility] tem Address [id number] [address] [place] [address] Care Team Providers Care Janitorial Cleaner Name Role Phone Unavailable Primary Care Provider Unavailabl e Encounter Details Date Type Department Care Team (Late st Contact Info) Description 01/27/2025 Orders Only Maternal- Medicine at [facility] [address] [place] [phone] Sintia Martinez, SENIOR CONSULTING MANAGER-STAFF COMMAND AND CONTROL OFFICER [address] [place] [address] Social History Tobacco Use Types Packs/Day Years [...] Medicine at [facility] [address] [place] [address] Devika Pulido, PAMoniqueC [address] [address] 05/12/2025 8:00 AM EDT Appointment Maternal Medicine [place] [address] [facility] [address] [place] [phone] documented as of this encounter Visit Diagnoses Not on filedocumented in this encounter Additional Health Concerns Assessment Noted Time PHQ-9 Depression Total Score: 2 07/03/20 16 9:00 AM EDT documented as of this encounter
--- OUTSIDE RECORDS SUMMARY | 2025-04-18 10:28 | XMS_ITS | Encounter Summary ---
Author Organization [facility] Address [address] [place] [address] Care Team Providers Care Glue Jointer Operator Name Role Phone Unavailable Primary Care Provider Unavailabl e Encounter Details Date Type Department Care Team (Late st Contact Info) Description 04/18/2025 Bamboo flowsheet [facility] [address] [place] [address] Cain Donaldson DO [address] [place] [address] Social History Tobacco Use Types Packs/Day Years [...]
--- OUTSIDE RECORDS SUMMARY | 2025-04-18 10:28 | XMS_ITS | Encounter Summary ---
Author Organization [facility] Address [address] [place] [address] Care Team Providers Care Heater Planer Operator Name Role Phone Unavailable Primary Care Provider Unavailabl e Encounter Details Date Type Department Care Team (Late st Contact Info) Description 04/11/2025 Clinisync Result Encounter [facility] External Department Unsolicited Cain Donaldson, DO [address] [facility] [place] [address] Social History Tobacco Use Types Packs/Day Years [...] Narrative [facility] - 04/11/2025 5:57 PM EDT Anokion SA Mendoza DO [facility] Final Result [facility] * SRMCOH PROTHROMBIN TIME INR W/O COUM (04/11/2025 4:52 PM EDT) PROTHROMBIN TIME 9.9 9.0 - 11.6 sec TBH TBH INR 0.93 TBH Comment: DESIRED INR: 2.0-3.0 CONDITIONS NOT LISTED BELOW 2.5-3.5 FOR PROSTHETIC HEART VALVE REPLACEMENT 2.5-3.5 RECURRENT THROMBOSIS 04/11/2025 4:52 PM EDT 04/11/2025 4:56 PM EDT Narrative [facility] - 04/11/2025 5:57 PM EDT Cain Mendoza DO [facility] Final Result [facility] * (ABNORMAL) ALL CBC WITH AUTO DIFF (04/11/2025 4:52 PM EDT) TBH WBC 7.3 4.0 - 11.0 10 3/uL [...] us Cain Mendoza DO [facility] LDH (04/11/2025 4:52 PM EDT) LACTATE DEHYDROGENASE 153 81 - 234 U/L TBH 04/11/2025 4:52 PM EDT 04/11/2025 4:56 PM EDT Narrative [facility] - 04/11/2025 5:52 PM EDT Cain Mendoza DO [facility] Final Result [facility] TB * (ABNORMAL) [facility] AST (04/11/2025 4:52 PM EDT) ASPARTATE AMINO TRANSFERASE 11(L) 15 - 37 U/L TBH 04/11/2025 4:52 PM EDT 04/11/2025 4:56 PM EDT Narrative [facility] - 04/11/2025 5:52 PM EDT Cain Mendoza DO [facility] Final Result Performing Organization Address [facility]/ZIP Co de Phone Number [facility] TB * ALL URIC ACID (04/11/2025 4:52 PM EDT) URIC ACID 2.8 2.6 - 6.0 mg/dL TB 04/11/2025 4:52 PM EDT 04/11/2025 4:56 PM EDT Narrative [facility] - 04/11/2025 5:52 PM EDT [facility] Mendoza DO [facility] Final Result [facility] TB * (ABNORMAL) TBH CREATININE (04/11/2025 4:52 PM EDT) CREATININE 0.36(L) 0.55 - 1.02 mg/dL TBH TBH EGFR-AF CAMEROONIAN >60 >=60 mL/min/1.7 3m 2 TBH TBH EGFR-NON AF CAMEROONIAN >60 >=60 mL/min/1.7 3m 2 TBH 04/11/2025 4:52 PM EDT 04/11/2025 4:56 PM EDT Narrative [facility] - 04/11/2025 5:52 PM EDT us Cain Mendoza DO [facility] Final Result [facility] TBH * ALL BUN (04/11/2025 4:52 PM EDT) BLOOD UREA NITROGEN 11.0 7.0 - 18.0 mg/dL TBH 04/11/2025 4:52 PM EDT 04/11/2025 4:56 PM EDT Narrative [facility] - 04/11/2025 5:52 PM EDT us Cain Mendoza DO [facility] Final Result [facility] TB documented in this encounter Visit Diagnoses Not on filedocumented in this encounter Additional Health Concerns Active Problems Noted Date Diagnosed Date OB Reminders 11/26/2024 documented as of this encounter
--- OUTSIDE RECORDS SUMMARY | 2025-04-18 10:28 | XMS_ITS | Encounter Summary ---
Author Organization [facility] Address [address] [place] [address] Care Team Providers Care Campus Recruiter Name Role Phone Unavailable Primary Care Provider Unavailabl e Encounter Details Date Type Department Care Team (Late st Contact Info) Description 04/14/2025 Abstract [facility] [address] [facility] [place] [phone] Yue Dumont MA Social History Tobacco Use [...]
--- OUTSIDE RECORDS SUMMARY | 2025-04-18 10:28 | XMS_ITS | Encounter Summary ---
Author Organization [facility] Address [facility]-[id number] [address] [place] [address] Care Team Providers Care Specialty Finishing Utility Person Name Role Phone Unavailable Primary Care Provider Unavailabl e Reason for Referral * Medication Prior Authorization - Closed Specialty Diagnoses / Procedures Referred By Contgonzalez t Referred To Contact Diagnoses Insulin controlled gestational diabetes mellitus (GDM) in second trimester Prediabetes in mother during Devika Pulido PA-C [address] [facility] [address] [address] Phone: tel: fax: Referral ID Status Reason Start Date Expiration Date Visits Re quested Visits Authorized [id number] Closed 1 1 Encounter Details Date Type Department Care Team (Latest Contact Info) Description 04/11/2025 Remote Patient Monitoring Maternal- Medicine at [facility] [address] [place] [phone] Devika Pulido PA-C [address] [phone] Insulin controlled gestational diabetes mellitus (GDM) in [...] 11:30 AM EDT Telemedicine Maternal- Medicine at [facility] [address] [place] [phone] Devika Pulido PA-C [address] [address] 05/12/2025 8:00 AM EDT Appointment Maternal Medicine [place] [address] [facility] [address] [place] [address] documented as of this encounter Visit Diagnoses Diagnosis Insulin controlled gestational diabetes mellitus (GDM) in second trimester Prediabetes in mother during documented in this encounter Additional Health Concerns Assessment Noted Time PHQ-9 Depression Total Score: 2 07/03/20 16 9:00 AM EDT documented as of this encounter
--- OUTSIDE RECORDS SUMMARY | 2025-04-18 10:28 | XMS_ITS | Encounter Summary ---
Author Organization [facility] tem Address [id number] [address] [place] [address] Care Team Providers Care Nut Blanker Operator Name Role Phone Unavailable Primary Care Provider Unavailabl e Encounter Details Date Type Department Care Team (Late st Contact Info) Description 04/11/2025 Orders Only Maternal- Medicine at [facility] [address] [place] [phone] Devika Pulido PA-C [address] [address] Social History Tobacco Use Types Packs/Day Years [...] AM EDT Telemedicine Maternal- Medicine at [facility] [address] [place] [address] Devika Pulido, PAMoniqueC [address] [address] 05/12/2025 8:00 AM EDT Appointment Maternal Medicine [place] [address] [facility] [address] [place] [phone] documented as of this encounter Visit Diagnoses Not on filedocumented in this encounter Additional Health Concerns Assessment Noted Time PHQ-9 Depression Total Score: 2 07/03/20 16 9:00 AM EDT documented as of this encounter
--- OUTSIDE RECORDS SUMMARY | 2025-04-18 10:28 | XMS_ITS | Clinical Summary ---
Author Organization [facility] Address [address] [place] [address] Care Team Providers Care Underwriter Solicitation Director Name Role Phone Unavailable Primary Care Provider Unavailabl e Allergies No known active allergies Medications Alcohol Swabs (Alcohol Prep Pad) 70 % padsIndications :Elevated glucose tolerance test, resulting from in vitro fertilization, antepartum ([facility]) Apply 1 Pad topically Daily Use four times daily to check FSBS. 150 each 3 5 Active Blood Glucose Monitoring Suppl (D-Care Glucometer) w/Device kitIndications: Elevated glucose tolerance test, resulting from in vitro fertilization, antepartum ([facility]) 1 kit Daily Use four times daily to check FSBS. In the morning prior to breakfast & 1 hour after each meal for a total of 4times daily. 1 kit 5 12/23/19 26 Active insulin syringe 29G X 1/2 0.5 mL miscIndications :Gestational diabetes mellitus (GDM), antepartum, gestational diabetes method of control unspecified ([facility]) Use 2 syringes in the morning [...] Encounters Date Type Department Care Team Description 04/18/2025 Bamboo flowsheet [facility] [address] [place] [address] Alfredo Donaldson, DO 04/14/20[address] Abstract [address] [address] [place] [address] Yue [place], [place] 04/11/2025 Clinisync Result Encounter [facility]OMS External Department Unsolicited Alfredo Donaldson, DO 04/11/2025 Clinisync Result Encounter [facility]OM[facility] External Department Unsolicited Alfredo Donaldson, DO 04/05/2025 Clinisync Result Encounter NOMS External Department Unsolicited Alfredo Donaldson, DO 03/30/2025 8:50 AM EDT Routine [facility] [address] [place] [address] Christy Schwartz PA Second trimester ([facility]); 27 weeks gestation of ([facility]); Gestational diabetes mellitus (GDM), antepartum, gestational diabetes method of control unspecified ([facility]); Factor 5 Leiden mutation, heterozygous ([facility]); Conceived by in vitro fertilization 03/30/2025 Bamboo flowsheet [facility]OM[facility] [address] [place] [address] Christy Schwartz PA 03/30/2025 Travel 03/18/20[address] Abstract [address] [address] [place] [address] Yue [place], [place] 03/03/2025 8:40 AM EDT Routine [facility] OB [address] [place] [address] [place] [address] Alfredo Donaldson, DO 23 weeks gestation of ([facility]); Second trimester ([facility]); induced hypertension, antepartum ([facility]); Insulin controlled gestational diabetes mellitus (GDM) during , antepartum ([facility]) 03/03/2025 Bamboo flowsheet [facility] OB [address] [place] [address] Alfredo Donaldson, DO 03/02/2025 Travel 01/27/2025 Orders Only [facility] [address] [place] [address] Damaris Lopez LPN 01/20/2025 8:30 AM EDT Routine [facility]OM[facility] [address] [place] [address] Christy Schwartz PA Well woman exam with routine gynecological exam; 17 weeks gestation of ([facility]); Second trimester ([facility]); Exposure to STD; Vaginal discharge 01/20/2025 Clinisync Result Encounter NOMS External Department Unsolicited Christy Schwartz PA 01/20/2025 External Result Encounter NOMS External Department Unsolicited Christy Schwartz PA 01/20/2025 Bamboo flowsheet [facility] [address] [place] [address] Christy Schwartz PA 01/19/2025 Travel from Last [...] Mass Index - - Plan of Treatment Health Maintenance Due Date [...] 9:08 AM EDT 23 weeks gestation of ([facility]) Second trimester ([facility]) US OB 14+ WEEKS ANATOMY SCAN 02/09/2025 4:57 PM EDT RECURRENT VAGINITIS (HTRX) Routine 01/20/2025 9:56 AM EDT POCT URINALYSIS DIPSTICK Routine 01/20/2025 8:47 AM EDT 17 weeks gestation of ([facility]) Second trimester ([facility]) IGP,APTIMA HPV,AGE GDLN Routine 01/20/2025 8:29 AM EDT PAP SMEAR Routine 01/20/2025 12:00 AM EDT from Last 3 Months Results * US OB BPP W NON-STRESS (04/11/2025 7:34 PM EDT) Only the most recent of2 resultswithin the time period is included. Anatomical Region Laterality Modality Other 04/11/2025 7:34 PM EDT Narrative 04/11/2025 7:36 [place] [address] Ultrasound Report Signed Patient: KEVIN WHITE MR#: [id number] : 1995 Acct:[id number] Age/Sex: 29 / F ADM Date: 04/11/25 Loc: US Attending Dr: Belgica Scherer Ordering Physician: Alfredo Donaldson D.O. Date of Service: 04/11/25 Procedure(s): US OB BPP w non-stress Accession Number(s): [id number] cc: Alfredo Donaldson D.O. [place] [address] Patient Name: KEVIN WHITE MRN: [id number] date: 1995 Sex: F Assigned Patient Location: [facility] Current Patient Location: Accession/Order Number: [id number] Exam Date: 04/11/2025 19:33 Report Date: 04/11/2025 [...] Steen M.D. 04/11/2025 7:34 PM Dictation Location: [place] [address] Electronically authenticated by: [id number] Y Date: 04/11/2025 19:34 Dictated By: Zion Steen D.O. Signed By: 04/11/251935 DD/ 33 TD/TT: Project Management Professor: Procedure Note Radiology, Radiologist, - 04/11/2025 [place] [address] Ultrasound Report Signed Patient: KEVIN WHITEMR#: [id number] : 1995Acct:[id number] Age/Sex: 29 / FADM Date: 04/11/25 Loc: US Attending Dr: Belgica Scherer Ordering Physician: Alfredo Donaldson D.O. Date of Service: 04/11/25 Procedure(s): US OB BPP w non-stress Accession Number(s): [id number] cc: Alfredo Donaldson D.O. The [place] [id number] Patient Name: KEVIN WHITE MRN: [id number] date: 1995 Sex: F Assigned Patient Location: [facility] Current Patient Location: Accession/Order Number: [id number] Exam Date: 04/11/2025 19:33 Report Date: 04/11/2025 [...] Steen M.D. 04/11/2025 7:34 PM Dictation Location: [place] [address] Electronically authenticated by: [id number] Y Date: 9:34 Dictated By: Zion Steen D.O. Signed By:04/11/251935 DD/ 33 TD/TT: Project Management Professor: us Alfredo Donaldson DO [facility] Final Result * (ABNORMAL) TB CREATININE (04/11/2025 4:52 PM EDT) CREATININE 0.36(L) 0.55 - 1.02 mg/dL TBH TBH EGFR-AF VENEZUELAN >60 >=60 mL/min/1.7 3m 2 TBH TBH EGFR-NON AF VENEZUELAN >60 >=60 mL/min/1.7 3m 2 TBH 04/11/2025 4:52 PM EDT 04/11/2025 4:56 PM EDT Narrative [facility] - 04/11/2025 5:52 PM EDT Alfredo Mendoza DO [facility] Final Result Performing Organization Address [facility] Co de Phone Number [facility] * SRMCOH PROTHROMBIN TIME INR W/O COUM (04/11/2025 4:52 PM EDT) PROTHROMBIN TIME 9.9 9.0 - 11.6 sec TB TB INR 0.93 TB Comment: DESIRED INR: 2.0-3.0 CONDITIONS NOT LISTED BELOW 2.5-3.5 FOR PROSTHETIC HEART VALVE REPLACEMENT 2.5-3.5 RECURRENT THROMBOSIS 04/11/2025 4:52 PM EDT 04/11/2025 4:56 PM EDT Narrative [facility] - 04/11/2025 5:57 PM EDT Alfredo Mendoza DO [facility] Final Result [facility] * (ABNORMAL) [facility] AST (04/11/2025 4:52 PM EDT) ASPARTATE AMINO TRANSFERASE 11(L) 15 - 37 U/L TB 04/11/2025 4:52 PM EDT 04/11/2025 4:56 PM EDT Narrative [facility] - 04/11/2025 5:52 PM EDT Alfredo Mendoza DO [facility] Final Result [facility] * [facility] APTT (04/11/2025 4:52 PM EDT) Pathologist [facility] PARTIAL THROMBOPLASTIN TIME 27.3 22.3 - 36.2 sec [facility] 04/11/2025 4:52 PM EDT 04/11/2025 4:56 PM EDT Narrative [facility] - 04/11/2025 5:57 PM EDT us Alfredo Mendoza DO [facility] Final Result [facility] * ALL URIC ACID (04/11/2025 4:52 PM EDT) [facility] URIC ACID 2.8 2.6 - 6.0 mg/dL [facility] 04/11/2025 4:52 PM EDT 04/11/2025 4:56 PM EDT Narrative [facility] - 04/11/2025 5:52 PM EDT Alfredo Mendoza DO CLIN[facility] Final Result Performing Organization Address [facility]/ZIP Co de Phone Number [facility] * ALL LDH (04/11/2025 4:52 PM EDT) [facility] LACTATE DEHYDROGENASE [phone] U/L [facility] 04/11/2025 4:52 PM EDT 04/11/2025 4:56 PM EDT Narrative [facility] - 04/11/2025 5:52 PM EDT Alfredo Mendoza DO [facility] Final Result [facility] * (ABNORMAL) ALL CBC WITH AUTO DIFF (04/11/2025 4:52 PM EDT) Pathologist [facility] WBC 7.3 4.0 - 11.0 10 3/uL TB TB RBC 3.64(L) 4.20 - 5.40 10 6/uL [...] us Alfredo Donaldson DO [facility] Final Result [facility] * ALL BUN (04/11/2025 4:52 PM EDT) BLOOD UREA NITROGEN 11.0 7.0 - 18.0 mg/dL TBH 04/11/2025 4:52 PM EDT 04/11/2025 4:56 PM EDT Narrative [facility] - 04/11/2025 5:52 PM EDT us Alfredo Donaldson DO [facility] Final Result [facility] * (ABNORMAL) POCT urinalysis dipstick manually resulted [...] Urine 03/03/2025 9:08 AM EDT us Alfredo Donaldson DO POINT OF CARE TEST ENTER/EDIT OR DERABLES Final Result * US OB 14+ weeks anatomy scan (02/09/2025 4:57 PM EDT) Anatomical Region Laterality Modality Body Ultrasound 02/09/2025 4:57 PM EDT Narrative 02/09/2025 4:57 PM EDT THIS EXAM WAS PERFORMED AT [facility] NAME: CINDY GRECO : 1995 SEX: F Accession Number: [id number] ORDERING PHYSICIAN: JAIDA RITTER REFERRING PHYSICIAN: ALFREDO DONALDSON Coding ----- --------- Procedures 49388: Ultrasound, uterus, real time with image documentation, and maternal evaluation plus detailed anatomic examination, transabdominal approach;single or first gestation 82344: Transvaginal Ultrasound (OB) 72523: Echocardiography, , cardiovascular system, real time with image documentation (2D), with or without M-mode recording Indication ----- --------- Screening for Anatomic Survey, Screening for cervical length, Screening for congenital cardiac abnormality, resulting from assisted reproductive technology, Gestational diabetes, Obesity in , Depression, Supervision of high risk (LT Choroid plexus cyst) History ----- --------- OB History 2. Para 0 [id number] Maternal Assessment ----- --------- Physical Exam Height [...] 0 lb 14 oz EFW by Hadlock ([id number]) Head / Face / Neck Biometry: Cephalic index 0.69 <1% Nicolaides Medical Record Coder 6.4 mm CM 6.2 mm 82% Nicolaides [...] Thorax 4-chamber view. RVOT view. LVOT view. 4-kpfpuz-eamtwqb view. Diaphragm. Abdomen Cord insertion. Spine: Cervical [...] suboptimal RVOT view suboptimal 3-vessel view normal 4-wzfety-rgycbtk view suboptimal Aortic arch view normal Ductal [...] today's exam. Recommendations ----- --------- Please see [facility] documentation from today. The patient is scheduled in four week(s) to complete anatomic survey and echocardiogram. Subsequent follow up or other follow up as clinically determined by primary OB provider unless otherwise specified by [facility]. Results forwarded to ordering provider so they can follow up with the patient as necessary. The copy-to physician of this order is ALFREDO Palacios The ordering physician of this order is JAIDA Vicente Procedure Note Radiology, Radiologist, MD - 02/09/2025 THIS EXAM WAS PERFORMED AT [facility] NAME: CINDY GRECO : 1995 SEX: F Accession Number: [id number] ORDERING PHYSICIAN: JAIDA RITTER REFERRING PHYSICIAN: ALFREDO DONALDSON Coding ----- --------- Procedures 55752: Ultrasound, uterus, real time with imagedocumentation, and maternal evaluation plus detailed anatomic examination, transabdominalapproach;single or first gestation 93082: Transvaginal Ultrasound (OB) 03168: Echocardiography, , cardiovascular system, real timewith image documentation (2D), with or without M-mode recording Indication ----- --------- Screening for Anatomic Survey, Screening for cervical length, Screeningfor congenital cardiac abnormality, resulting from assisted reproductive technology, Gestational diabetes, Obesity inpregnancy, Depression, Supervision of high risk (LT Choroid plexus cyst) History ----- --------- OB History 2. Para 0 [id number] Maternal Assessment ----- --------- Physical Exam Height [...] 0 lb 14 oz EFW by Hadlock ([id number]-FL) Head / Face / Neck Biometry: Cephalic index 0.69 <1% Nicolaides Medical Record Coder 6.4 mm CM 6.2 mm 82% Nicolaides [...] Thorax 4-chamber view. RVOT view. LVOT view. 9-wbflyx-qahhxqxodob. Diaphragm. Abdomen Cord insertion. Spine: Cervical spine. [...] suboptimal RVOT view suboptimal 3-vessel view normal 8-yoihey-pxjuasv view suboptimal Aortic arch view normal Ductal [...] today's exam. Recommendations ----- --------- Please see [facility] documentation from today. The patient is scheduled in four week(s) to complete anatomic survey andfetal echocardiogram. Subsequent follow up or other follow up as clinically determined byprimary OB provider unless otherwise specified by [facility]. Results forwarded to ordering provider so they can follow up with thepatient as necessary. The copy-to physician of this order is ALFREDO Palacios The ordering physician of this order is JAIDA Vicente us Alfredo Donaldson DO IMG OB US PROCEDURES Final Resul t * RECURRENT VAGINITIS (HTRX) (01/20/2025 9:56 AM EDT) [facility] ATOPOBIUM VAGINAE 0.000 19.961 - 24.689 ppm 01/21/2025 6:29 AM EDT [facility] ATOPOBIUM VAGINAE Not Detected 19.961 - 24.689 ppm 01/21/2025 6:29 AM EDT [facility] BVAB 2,3 (BACTERIAL VAGINOSIS ASSOCIATED BACTERIA 2, 3); MOBILUNCUS SPP 0.000 19.961 - 24.689 ppm 01/21/2025 6:29 AM EDT [facility] BVAB 2,3 (BACTERIAL VAGINOSIS ASSOCIATED BACTERIA 2, 3); MOBILUNCUS SPP Not Detected 19.961 - 24.689 ppm 01/21/2025 6:29 AM EDT [facility] DEAN ALBICANS, PARAPSILOSIS, TROPICALIS 0.000 19.961 - 30.770 ppm 01/21/2025 6:29 AM EDT [facility] DEAN ALBICANS, PARAPSILOSIS, TROPICALIS Not Detected 19.961 - 30.770 ppm 01/21/2025 6:29 AM EDT [facility] DEAN GLABRATA 0.000 23.000 - 32.138 ppm 01/21/2025 6:29 AM EDT [facility] DEAN GLABRATA Not Detected 23.000 - 32.138 ppm 01/21/2025 6:29 AM EDT [facility] DEAN KRUSEI 0.000 23.000 - 32.271 ppm 01/21/2025 6:29 AM EDT [facility] DEAN KRUSEI Not Detected 23.000 - 32.271 ppm 01/21/2025 6:29 AM EDT [facility] CHLAMYDIA TRACHOMATIS 0.000 23.000 - 31.467 ppm 01/21/2025 6:29 AM EDT [facility] CHLAMYDIA TRACHOMATIS Not Detected 23.000 - 31.467 ppm 01/21/2025 6:29 AM EDT [facility] GARDNERELLA VAGINALIS 0.000 19.961 - 24.689 ppm 01/21/2025 6:29 AM EDT [facility] GARDNERELLA VAGINALIS Not Detected 19.961 - 24.689 ppm 01/21/2025 6:29 AM EDT [facility] MEGASPHAERA (TYPES 1, 2) 0.000 19.961 - 24.689 ppm 01/21/2025 6:29 AM EDT [facility] MEGASPHAERA (TYPES 1, 2) Not Detected 19.961 - 24.689 ppm 01/21/2025 6:29 AM EDT [facility] NEISSERIA GONORRHOEAE 0.000 23.000 - 32.117 ppm 01/21/2025 6:29 AM EDT [facility] NEISSERIA GONORRHOEAE Not Detected 23.000 - 32.117 ppm 01/21/2025 6:29 AM EDT [facility] TRICHOMONAS VAGINALIS 0.000 23.000 - 32.119 ppm 01/21/2025 6:29 AM EDT [facility] TRICHOMONAS VAGINALIS Not Detected 23.000 - 32.119 ppm 01/21/2025 6:29 AM EDT [facility] MYCOPLASMA GENITALIUM 0.000 19.961 - 24.689 ppm 01/21/2025 6:29 AM EDT [facility] MYCOPLASMA GENITALIUM Not Detected 19.961 - 24.689 ppm 01/21/2025 6:29 AM EDT [facility] Tissue 01/20/2025 9:56 AM EDT 01/21/2025 1:43 AM EDT us Christy MCKOY LAB BLOOD ORDERABLES Final Resul t [facility] [address] [place] [place] [address] * IGP,APTIMA HPV,AGE GDLN (01/20/2025 8:29 AM EDT) AGE GDLN AC TESTING Note . [facility] Comment: TESTS RESULT FLAG UNITS REF RANGE LAB Clinician Provided Cytology Information Source.............Cervix Other.............. No. of containers..01 ThinPrep Vial Age Algo AC Joann... 30 01 FLAG LEGEND: L-Low Normal,H-High Normal,LL-Alert Low,HH-Alert High <-Panic Low,>-Panic High,A-Abnormal,AA-Critical Abnormal Performed at: 01 =[facility] [address] Tessy Corea MD, IGP, APTIMA HPV, RFX 16/18,45 Note . [facility] Comment: TESTS RESULT FLAG UNITS REF RANGE LAB DIAGNOSIS: 02 NEGATIVE FOR INTRAEPITHELIAL LESION OR MALIGNANCY. Specimen adequacy: 02 Satisfactory for evaluation. No endocervical component is identified. Performed by: 02 Hannah Ambrose Hedis Specialist (ASCP) . 02 Note: Note 02 The [...] <-Panic Low,>-Panic High,A-Abnormal,AA-Critical Abnormal Performed at: [address] [address] Tessy Corea MD, HPV APTIMA Negative Negative [facility] Comment: This nucleic acid amplification test detects fourteen high- risk HPV types (16,18,31,33,35,39,45,51,52,56,58,59,66,68) without differentiation. Performed at: [facility] [id number] It Security Analyst: Tessy Corea MD, Phone: [phone] Performed at: [address] [id number] It Security Analyst: Tessy Corea MD, Phone: [phone] 01/20/2025 8:29 AM EDT 01/20/2025 12:46 PM EDT Narrative [facility] - 01/24/2025 11:08 AM EDT SPATULA-ALONE CERVIX Christy MCKOY LAB BLOOD ORDERABLES Final Resul t [facility] * Pap Smear (01/20/2025 12:00 AM EDT) Swab Cervical swab / Unknown us [facility] Mendoza Nurse LAB CYTOLOGY ORDERABLES Final Result EXTERNAL LAB from Last 3 Months Additional Health Concerns Active Problems Noted Date Diagnosed Date OB Reminders 11/26/2024 Insurance [facility]
--- OUTSIDE RECORDS SUMMARY | 2025-04-18 10:28 | XMS_ITS | Encounter Summary ---
Author Organization [facility] Address [address] [place] [address] Care Team Providers Care Communications Equipment Installer Name Role Phone Unavailable Primary Care Provider Unavailabl e Encounter Details Date Type Department Care Team (Late st Contact Info) Description 04/11/2025 Clinisync Result Encounter [facility] External Department Unsolicited Alfredo Donaldson, DO [address] [place] [address] Social History Tobacco Use Types Packs/Day Years [...] PM EDT Narrative 04/11/2025 7:36 PM EDT [facility] [place] [id number] Ultrasound Report Signed Patient: KEVIN WHITE MR#: [id number] : 1995 Acct:[id number] Age/Sex: 29 / F ADM Date: 04/11/25 Loc: US Attending Dr: Belgica Scherer Ordering Physician: Alfredo Donaldson D.O. Date of Service: 04/11/25 Procedure(s): US OB BPP w non-stress Accession Number(s): [id number] cc: Alfredo Donaldson D.O. The [place] [address] Patient Name: KEVIN WHITE MRN: [id number] date: 1995 Sex: F Assigned Patient Location: [facility] Current Patient Location: Accession/Order Number: [id number] Exam Date: 04/11/2025 19:33 Report Date: 04/11/2025 [...] Steen M.D. 04/11/2025 7:34 PM Dictation Location: [place] [address] Electronically authenticated by: [id number] Y Date: 04/11/2025 19:34 Dictated By: Zion Steen D.O. Signed By: 04/11/251935 DD/ 33 TD/TT: Nursing Informatics Specialist: Procedure Note Radiology, Radiologist, MD - 04/11/2025 [facility] [place] [id number] Ultrasound Report Signed Patient: KEVIN WHITEMR#: [id number] : 1995Acct:[id number] Age/Sex: 29 / FADM Date: 04/11/25 Loc: US Attending Dr: Belgica Scherer Ordering Physician: Alfredo Donaldson D.O. Date of Service: 04/11/25 Procedure(s): US OB BPP w non-stress Accession Number(s): [id number] cc: Alfredo Donaldson D.O. [place] [address] Patient Name: KEVIN WHITE MRN: [facility]:[id number] date: 1995 Sex: F Assigned Patient Location: [facility] Current Patient Location: Accession/Order Number: [id number] Exam Date: 04/11/2025 19:33 Report Date: 04/11/2025 [...] Steen M.D. 04/11/2025 7:34 PM Dictation Location: [place] [address] Electronically authenticated by: [id number] Y Date: 9:34 Dictated By: Zion Steen D.O. Signed By:04/11/251935 DD/ 33 TD/TT: Nursing Informatics Specialist: us Alfredo Donaldson DO [facility] Final Result documented in this encounter Visit Diagnoses Not on filedocumented in this encounter Additional Health Concerns Active Problems Noted Date Diagnosed Date OB Reminders 11/26/2024 documented as of this encounter
[2025-04-18 10:44] LABS: Total Protein Urine Random 9.5 mg/dL (<=11.9)
[2025-04-18 10:45] LABS: Total Volume 24 Hour Urine 3000 mL/24hr
== END 2025-04-17 10:31 | disposition home or self-care (01) ==
LOC: LAB 10:30
PROVIDERS: PCP Obstetrics & Gynecology; Visit Provider Obstetrics & Gynecology
DX: O13.2 Gestational [pregnancy-induced] hypertension without significant proteinuria, second trimester (principal); Z3A.23 23 weeks gestation of pregnancy
CPT/HCPCS: 84156

== ENCOUNTER 2025-04-18 20:59 | Observation (INO) | payer BC, SELFPAY ==
--- OUTSIDE RECORDS SUMMARY | 2025-01-21 11:10 | XMS_ITS | Continuity of Care Document ---
Author Organization [facility] Address [address] [place] [address] Phone Care Team Providers Care Time Signal Wirer Name Role Phone Miguel Rios Unavailable Unavailable Procedures Procedure Date TB Read TB INTRADERMAL TEST IMMUNIZATION ADMIN FLU VACCINE NO PRESERV 3 & > Covid-19 Vaccine Administration 024 Covid-19 Vaccine, 50 Mcg Moderna 12y Plu s ROUTINE VENIPUNCTURE ROUTINE VENIPUNCTURE ROUTINE VENIPUNCTURE ROUTINE VENIPUNCTURE TB Read TB INTRADERMAL TEST ROUTINE VENIPUNCTURE IMMUNIZATION ADMIN, EACH ADD FLU VAC NO PRSV 4 DOUG 3 YRS+ Covid-19 Vaccine Administration 023 Covid-19 Vaccine, 50 Mcg Moderna 12y Plu s COVID-19 Antigen Test COVID-19 Antigen Test ROUTINE VENIPUNCTURE ROUTINE VENIPUNCTURE ROUTINE VENIPUNCTURE ROUTINE VENIPUNCTURE COVID-19 Antigen Test COVID-19 Antigen Test ROUTINE VENIPUNCTURE COVID-19 Antigen Test TB Read TB INTRADERMAL TEST IMMUNIZATION ADMIN FLU VAC NO PRSV 4 DOUG 3 YRS+ IMMUNIZATION ADMIN TDAP VACCINE >7 IM TB Read TB INTRADERMAL TEST TB Read TB INTRADERMAL TEST Moderna Booster Moderna Booster Pfizer COVID Vaccine Admin Dose 2 COVID-19 Pfizer Pfizer COVID Vaccine Admin Dose 1 COVID-19 Pfizer Advance Directives Directive Yes / No Effective Date File Name No Information Encounters Encounter Description Practice Location Reason(s) For Visit Diagnoses Date Provider Providers Copied on Encounter [facility], [address] [place] [address], [id number] , [place] tel: [phone] [facility] No Information 5 Visci DO Rivera. [address] [place] [address], [id number] , [place]. tel: [phone] [facility], [address] [place] [address], [id number] , [place] tel: [phone] [facility] Encounter for screening for respiratory tuberculosis 5 Visci DO Miguel. [address] [place] [address], [id number] , [place]. tel:[phone] [facility], [address] [place] [address], [id number] , [place] tel: [phone] [facility] No Information 4 Visci DO Miguel. [address] [place] [address], [id number] , [place]. tel: [phone] [facility], [address] [place] [address], [id number] , [place] tel:[phone] [facility] Lab Draw (chief complaint) Other specified disorders of pancreatic internal secretionSubclinical iodine-deficiency hypothyroidismEncount er for screening for other viral diseasesEncounter for screening for other infectious disease 4 Cynthia White. [address], [place], [id number] , [place]. tel: [phone] [facility], [address], [place], [id number] , [place] tel: [phone] [facility] lab draw (chief complaint) Encounter for screening for other viral diseases 4 Cynthia White. [address], [place], [id number] , [place]. tel: [phone] [facility], [address], [place], [id number] , [place] tel: [phone] [facility] No Information 4 Cynthia White. [address], [place], [id number] , [place]. tel: [phone] [facility], [address], [place], [id number] , [place] tel: [phone] [facility] Encounter for screening for respiratory tuberculosis 4 Cynthia White. [address], [place], [id number] , [place]. tel: [phone] [facility], [address], [place], [id number] , [place] tel: [phone] [facility] Lab draw (chief complaint) Blood test prior to procedure 4 Cynthia White. [address], [place], [id number] , [place]. tel: [phone] Referring Provider: Tenisha Leon LA. [facility], [address], [place], [id number] , [place] tel: [phone] [facility] No Information 3 Cynthia White. [address], [place], [id number] , [place]. tel: [phone] [facility], [address], [place], [id number] , [place] tel: [phone] [facility] COVID Test (chief complaint) Encounter for screening for COVID-19 3 Cynthia White. [address], [place], [id number] , [place]. tel: [phone] [facility], [address], [place], [id number] , [place] tel: [phone] [facility] Lab Draw (chief complaint) Encounter for antibody response examination 3 Cynthia White. [address], [place], [id number] , [place]. tel: [phone] [facility], [address] [place] [address], [id number] , [place] tel: [phone] [facility] lab (chief complaint) Other specified disorders of pancreatic internal secretion 3 Cynthia White. [address], [place], [id number] , [place]. tel: [phone] [facility], [address] [place] [address], [id number] , [place] tel: [phone] [facility] Lab draw (chief complaint) Blood test prior to procedure 3 Cynthia White. [address], [place], [id number] , [place]. tel: [phone] [facility], [address] [place] [address], [id number] , [place] tel: [phone] [facility] lab draw (chief complaint) Endocrine disorder 3 Cynthia White. [address], [place], [id number] , [place]. tel: [phone] [facility], [address] [place] [address], [id number] , [place] tel: [phone] [facility] Encounter for screening for COVID-19 3 Visci DO Miguel. [address], [place], [id number] , [place]. tel: [phone] [facility], [address], [place], [id number] , [place] tel: [phone] [facility] Lab draw (chief complaint) Blood test prior to procedureEncounter for screening for COVID-19 3 Visci DO Miguel. [address], [place], [id number] , [place]. tel: [phone] [facility], [address], [place], [id number] , [place] tel: [phone] [facility] No Information 3 Visci DO Miguel. [address], [place], [id number] , [place]. tel: [phone] [facility], [address], [place], [id number] , [place] tel: [phone] [facility] No Information 3 Visci DO Miguel. [address], [place], [id number] , [place]. tel: [phone] [facility], [address], [place], [id number] , [place] tel: [phone] [facility] No Information 2 Visci DO Miguel. [address], [place], [id number] , [place]. tel: [phone] [facility], [address], [place], [id number] , [place] tel: [phone] [facility] No Information 2 Visci DO Miguel. [address], [place], [id number] , [place]. tel: [phone] [facility], [address], [place], [id number] , [place] tel: [phone] [facility] No Information 2 Visci DO Miguel. [address], [place], [id number] , [place]. tel: [phone] [facility], [address], [place], [id number] , [place] tel: [phone] [facility] Encounter for screening for respiratory tuberculosis 2 Visci DO Miguel. [address], [place], [address] , [place]. tel: [phone] [facility], [address], [place], [id number] , [place] tel: [phone] [facility] Encounter for screening for respiratory tuberculosis 2 Visci DO Miguel. [address], [place], [id number] , [place]. tel: [phone] [facility], [address], [place], [address] , [place] tel: [phone] [facility] Encounter for screening for respiratory tuberculosis 2 Visci DO Miguel. [address], [place], [id number] , [place]. tel: [phone] [facility], [address], [place], 1559[address] , [place] tel: [phone] [facility] No Information 1 Visci DO Miguel. [address], [place], [id number] , [place]. tel: [phone] [facility], [address], [place], [id number] , [place] tel: [phone] [facility] No Information 1 Visci DO Miguel. [address], [place], [id number] , [place]. tel: [phone] [facility], [address], [place], [id number] , [place] tel: [phone] [facility] No Information 1 Visci DO Miguel. [address], [place], [id number] , [place]. tel:[phone] Family History Family Member Type Diagnosis Age At Onset No Information Immunizations Vaccine Date Status Comments Influenza, injectable, trivalent, split virus, 0.5 mL dosage, preservative free, Afluria Triv administered Source: New Immun ization Record Spikevax 12y+ administered Source: New Im munization Record Flulaval/ Fluarix administered Source: Ne w Immunization Record Spikevax 12y+ administered Source: New Im munization Record Flulaval/ Fluarix administered Source: Ne w Immunization Record Tdap (Boostrix) administered Source: New Immunization Record Moderna Booster administered Source: New Immunization Record Pfizer COVID administered Source: New Imm unization Record Pfizer COVID administered Source: New Imm unization Record Payers Payer name Insurance type Covered alliance party ID Authoriza tion(s) Sebastian BL [id number] Sebastian BL [id number] Sebastian BL [id number] Sebastian BL [id number] Sebastian BL [id number] Sebastian BL [id number] Sebastian BL [id number] Social History Type Description Quantity Date Captured Comments Alcohol Use Details Unknown Caffeine Use Details Unknown Tobacco Use Status No Information Smoking Status No Information Sex Female Sexual Orientation Lesbian, lopez or homosexual Gender Identity Female Chief Complaint And Reason For Visit No Information Reason For Referral Reason For Referral No Information Plan Of Treatment Date Type Action Status Goal HPV. Due on due Goal PRAPARE ASSESSMENT. Due on M due Goal Tdap due Goal Influenza vaccine. Due on Oc due Goal Hepatitis C screening. Due o n due Goal Depression screening. Due on due Goal Hep A. Due on du e Goal Tdap Vaccine. Due on 2031 due Goal RLP. Due on due Goal Unhealthy drug use screening . Due on due Goal Tdap Vaccine. Due on 2031 due Goal Influenza vaccine. Due on Oc due Goal Hep A. Due on du e Goal Unhealthy drug use screening . Due on due Goal Depression screening. Due on due Goal RLP. Due on due Goal Tdap due Goal Hepatitis C screening. Due o n due Goal HPV. Due on due Goal PRAPARE ASSESSMENT. Due on M due Goal Tdap due Goal Tdap Vaccine. Due on 2031 due Goal Hep A. Due on du e Goal Influenza vaccine. Due on Oc due Goal HPV. Due on due Goal PRAPARE ASSESSMENT. Due on O due Goal RLP. Due on due Goal Unhealthy drug use screening . Due on due Goal Depression screening. Due on due Goal Hepatitis C screening. Due o n due Goal RLP. Due on due Goal Influenza vaccine. Due on due Goal HPV. Due on due Goal Unhealthy drug use screening . Due on due Goal Depression screening. Due on due Goal Tdap Vaccine. Due on 2031 due Goal Hepatitis C screening. Due o n due Goal PRAPARE ASSESSMENT. Due on A due Goal Hep A. Due on du e Goal Tdap due Goal Depression screening. Due on due Goal Tdap Vaccine. Due on 2031 due Goal RLP. Due on due Goal Tdap due Goal Hepatitis C screening. Due o n due Goal Hep A. Due on du e Goal Influenza vaccine. Due on due Goal HPV. Due on due Goal Unhealthy drug use screening . Due on due Goal PRAPARE ASSESSMENT. Due on due Goal Depression screening. Due on due Goal Tdap due Goal HPV. Due on due Goal RLP. Due on due Goal Tdap Vaccine. Due on 2031 due Goal Influenza vaccine. Due on due Goal Unhealthy drug use screening . Due on due Goal Hep A. Due on du e Goal PRAPARE ASSESSMENT. Due on M due Goal Hepatitis C screening. Due o n due Goal Tdap due Goal RLP. Due on due Goal Hep A. Due on du e Goal Influenza vaccine. Due on Hi due Goal Unhealthy drug use screening . Due on due Goal Depression screening. Due on due Goal PRAPARE ASSESSMENT. Due on M due Goal Tdap Vaccine. Due on 2031 due Goal HPV. Due on due Goal Hepatitis C screening. Due o n due Goal Hep A. Due on du e Goal HPV. Due on due Goal Tdap Vaccine. Due on 2031 due Goal RLP. Due on due Goal Depression screening. Due on due Goal Tdap due Goal Unhealthy drug use screening . Due on due Goal Influenza vaccine. Due on due Goal PRAPARE ASSESSMENT. Due on M due Goal Hepatitis C screening. Due o n due Goal Hepatitis C screening. Due o n due Goal Tdap due Goal HPV. Due on due Goal Hep A. Due on du e Goal Depression screening. Due on due Goal RLP. Due on due Goal Unhealthy drug use screening . Due on due Goal Influenza vaccine. Due on No due Goal Tdap Vaccine. Due on 2031 due Goal PRAPARE ASSESSMENT. Due on N due Goal Hep A. Due on du e Goal RLP. Due on due Goal Tdap Vaccine. Due on 2031 due Goal PRAPARE ASSESSMENT. Due on S due Goal Depression screening. Due on due Goal Tdap due Goal Influenza vaccine. Due on Se due Goal PRAPARE ASSESSMENT. Due on S due Goal Influenza vaccine. Due on Se due Goal RLP. Due on due Goal Tdap Vaccine. Due on 2031 due Goal Depression screening. Due on due Goal PAP. Due on due Goal Tdap due Goal Hep A. Due on du e Goal Tdap Vaccine. Due on 2031 due Goal Influenza vaccine. Due on Au due Goal RLP. Due on due Goal Tdap due Goal PRAPARE ASSESSMENT. Due on A due Goal PAP. Due on due Goal Depression screening. Due on due Goal Tdap Vaccine. Due on 2031 due Goal RLP. Due on due Goal PAP. Due on due Goal Tdap due Goal PRAPARE ASSESSMENT. Due on due Goal Depression screening. Due on due Goal Influenza vaccine. Due on due Goal PAP. Due on due Goal Tdap Vaccine. Due on 2031 due Goal Tdap due Goal Hep A. Due on du e Goal Depression screening. Due on due Goal Influenza vaccine. Due on due Goal PRAPARE ASSESSMENT. Due on due Goal RLP. Due on due Goal Tdap due Goal Depression screening. Due on due Goal Tdap Vaccine. Due on 2031 due Goal Hep A. Due on du e Goal PRAPARE ASSESSMENT. Due on due Goal PAP. Due on due Goal RLP. Due on due Goal Influenza vaccine. Due on due Goal Tdap due Goal PAP. Due on due Goal PRAPARE ASSESSMENT. Due on due Goal Depression screening. Due on due Goal Hep A. Due on du e Goal Influenza vaccine. Due on Hi y due Goal RLP. Due on due Goal Tdap Vaccine. Due on 2031 due Goal PAP. Due on due Goal Influenza vaccine. Due on Hi r due Goal Depression screening. Due on due Goal Tdap due Goal PRAPARE ASSESSMENT. Due on due Goal Hep A. Due on du e Goal RLP. Due on due Goal Tdap Vaccine. Due on 2031 due Goal Influenza vaccine. Due on Hi due Goal Tdap due Goal PRAPARE ASSESSMENT. Due on due Goal PAP. Due on due Goal RLP. Due on due Goal Depression screening. Due on due Goal Hep A. Due on du e Goal Hep A. Due on du e Goal Tdap Vaccine. Due on 2031 due Goal PAP. Due on due Goal Tdap due Goal Depression screening. Due on due Goal Influenza vaccine. Due on Ak due Goal RLP. Due on due Goal PRAPARE ASSESSMENT. Due on due Goal PAP. Due on due Goal Tdap. Due on due Goal Depression screening. Due on due Goal Influenza vaccine. Due on due Goal RLP. Due on due History Of Present Illness Encounter Date Complaint History Of Prese nt Illness Lab Draw lab draw Patient here for lab draw. Labs obtained from right anticub after one attempt.Radha Garcia. Lab draw Labs obtained RA C x1 attempt. 2x2 and bandage applied. Patient tolerated well.//NARESH Aburto COVID Test Bilateral nares swabbed for rapid COVID-19 antigen test. Aneta Mendieta RN Lab Draw Labs obtained urbano ccessfully x1 attempt from right AC. Pt tolerated well. Pressure dressing applied. [facility] First draw of 2- hr glucose tolerance test series. Lab draw obtained successfully from right AC. Pt tolerated well.second draw for 2-hr glucose test series completed. Pt tolerated well. final draw for 2-hr glucose test series completed. Pt tolerated well. NARESH Frye Lab draw Labs drawn succe ssfully //NARESH Kwan lab draw Pt here for lab draw. Venipuncture successful on first attempt in R AC, pt tolerated well. NARESH Huffman Lab draw Pt here for lab draw and covid swab for presurgical clearance. Labs drawn x1 RAC. 2x2 and bandage applied. //NARESH Kwan Functional Status Date Functional Assessmen t No Information Instructions Date Instruction Additional Infor mation No Information Assessments Type Assessment Date No Information Patient Care Teams Name Effective Dates (start - stop) Status Members No Information
--- OUTSIDE RECORDS SUMMARY | 2025-04-18 10:10 | XMS_ITS | Encounter Summary ---
Author Organization [facility] Address [address] [place] [address] Care Team Providers Care Alining Inspector Name Role Phone Unavailable Primary Care Provider Unavailabl e Reason for Visit * Reason Comments Routine Visit Encounter Details Date Type Department Care Team (Late st Contact Info) Description 04/18/2025 10:10 AM EDT Routine [facility] OB [address] [place] [address] Cain Donaldson, DO [address] [facility] [place] [address] Third trimester ([facility]); 30 weeks gestation of ([facility]) Social History Tobacco Use Types Packs/Day Years [...] to check FSBS. Blood Glucose Monitoring Suppl ([employer] Glucometer) w/Device kit 1 kit, Does not [...] Medical History: Diagnosis Date SAB (spontaneous ) ([facility]) 10/2021 HISTORY PAST MEDICAL HISTORY SOCIAL HISTORY Past Medical History: Diagnosis Date SAB (spontaneous ) ([facility]) 10/2021 Social History Tobacco Use Smoking status: [...] nursing note reviewed. Exam conducted with a spa manager/esthetician present. Vitals: There is no height or weight on file to calculate BMI. BP: No LMP recorded. Patient is . ASSESSMENT & PLAN ICD-10-CM 1. Third trimester ([facility]) Z34.93 2. 30 weeks gestation of ([facility]) Z3A.30 Return OB: Patient presents today for [...] AM EDT Routine [facility] OB [address] [place] [address] Christy Schwartz PA [address] [place] [address] [place] [address] documented as of this encounter Goals Goal Patient Goal Type Associated Problems Recent Progress Patient-Stated? Author Reminders Care Plan OB Reminders No Open Scheduling, Background documented as of this encounter Procedures Procedure Name Priority Date/Time Associated Diagnosis Comments POCT URINALYSIS DIPSTICK Routine 04/18/2025 10:40 AM EDT Third trimester ([facility]) documented in this encounter Results * POCT [...] Urine 04/18/2025 10:4 0 AM EDT Cain Donaldson DO POINT OF CARE TEST ENTER/EDIT OR DERABLES Final Result documented in this encounter Visit Diagnoses Diagnosis Third trimester ([facility]) state, incidental 30 weeks gestation of ([facility]) documented in this encounter Additional Health Concerns Active Problems Noted Date Diagnosed Date OB Reminders 11/26/2024 documented as of this encounter
--- OUTSIDE RECORDS SUMMARY | 2025-04-18 21:02 | XMS_ITS | Encounter Summary ---
Author Organization [facility] tem Address [id number] [address] [place] [address] Care Team Providers Care Hand Or Machine Paster Name Role Phone Unavailable Primary Care Provider Unavailabl e Encounter Details Date Type Department Care Team (Late st Contact Info) Description 01/27/2025 Orders Only Maternal- Medicine at [facility] [address] [place] [phone] Sintia Martinez, TYRE BUILDER-WAREHOUSE COORDINATOR [address] [place] [address] Social History Tobacco Use Types Packs/Day Years [...] at [facility] [address] [place] [address] Devika Pulido, PAMoniqueC [address] [address] 05/12/2025 8:00 AM EDT Appointment Maternal Medicine [place] [address] [facility] [address] [place] [phone] documented as of this encounter Visit Diagnoses Not on filedocumented in this encounter Additional Health Concerns Assessment Noted Time PHQ-9 Depression Total Score: 2 07/03/20 16 9:00 AM EDT documented as of this encounter
--- OUTSIDE RECORDS SUMMARY | 2025-04-18 21:02 | XMS_ITS | Encounter Summary ---
Author Organization [facility] tem Address [id number] [address] [place] [address] Care Team Providers Care Natural Developer Name Role Phone Unavailable Primary Care Provider Unavailabl e Encounter Details Date Type Department Care Team (Late st Contact Info) Description 02/17/2025 Orders Only Maternal- Medicine at [facility] [address] [place] [phone] Christy Prado LPN Insulin controlled gestational diabetes mellitus (GDM) in second trimester; Prediabetes in mother during ; 20 weeks gestation of ; Choroid plexus cyst of fetus affecting care of mother, antepartum, single or unspecified fetus; Heterozygous factor V Leiden affecting in second trimester, antepartum; Severe obesity due to excess calories affecting , antepartum ([facility]); Bipolar disorder, in full remission, most recent [...] EDT Telemedicine Maternal- Medicine at [facility] [address] [place] [address] Devika Pulido PA-C [address] [address] 05/12/2025 8:00 AM EDT Appointment Maternal Medicine [place] [address] [facility] [address] [place] [address] documented as of this encounter [...] due to excess calories affecting , antepartum ([facility]) Bipolar disorder, in full remission, most recent [...] due to excess calories affecting , antepartum ([facility]) Bipolar disorder, in full remission, most recent episode depressed documented in this encounter Additional Health Concerns Assessment Noted Time PHQ-9 Depression Total Score: 2 07/03/20 16 9:00 AM EDT documented as of this encounter
--- OUTSIDE RECORDS SUMMARY | 2025-04-18 21:02 | XMS_ITS | Encounter Summary ---
Author Organization [facility] Address [address] [facility] [place] [address] Care Team Providers Care Manager Sales And Marketing Name Role Phone Unavailable Primary Care Provider Unavailabl e Encounter Details Date Type Department Care Team (Late Contact Info) Description 04/18/2025 Bamboo flowsheet [facility] [address] [facility] [place] [address] Cain Donaldson DO [address] [place] [address] Dr Kelsey Prieto, [place] [address] Social History Tobacco Use Types Packs/Day Years [...] Department Care Team (Late Contact Info) Description 05/03/2025 8:50 AM EDT Routine [facility] [address] [facility] [place] [address] Christy Schwartz PA [address] [facility] [address] [place], [place] [phone] documented as of this encounter Goals Goal Patient Goal Type Associated Problems Recent Progress Patient-Stated? Author Reminders Care Plan OB Reminders No Open Scheduling, Background documented as of this encounter Visit Diagnoses Not on filedocumented in this encounter Additional Health Concerns Active Problems Noted Date Diagnosed Date OB Reminders 11/26/2024 documented as of this encounter
--- OUTSIDE RECORDS SUMMARY | 2025-04-18 21:02 | XMS_ITS | Encounter Summary ---
Author Organization [facility] Address [address] [facility] [place] [address] Care Team Providers Care Senior Data Warehouse Architect Name Role Phone Unavailable Primary Care Provider Unavailabl e Encounter Details Date Type Department Care Team (Late st Contact Info) Description 04/14/2025 Abstract [facility] OB [address] [facility] [place] [phone] Yue Dumont MA Social History Tobacco Use [...] Description 05/03/2025 8:50 AM EDT Routine [facility] OB [address] [place] [address] [place] [phone] Christy Schwartz PA [address] [place] [address] [place] [address] documented as of this encounter Goals Goal Patient Goal Type Associated Problems Recent Progress Patient-Stated? Author Reminders Care Plan OB Reminders No Open Scheduling, Background documented as of this encounter Visit Diagnoses Not on filedocumented in this encounter Additional Health Concerns Active Problems Noted Date Diagnosed Date OB Reminders 11/26/2024 documented as of this encounter
--- OUTSIDE RECORDS SUMMARY | 2025-04-18 21:02 | XMS_ITS | Encounter Summary ---
Author Organization [facility] Address [address] [facility] [place] [address] Care Team Providers Care Water Quality Assistant Name Role Phone Unavailable Primary Care Provider Unavailabl e Encounter Details Date Type Department Care Team (Late st Contact Info) Description 03/18/2025 Abstract [facility] OB [address] [facility] [place] [phone] Yue Dumont MA Social History Tobacco Use [...] Description 05/03/2025 8:50 AM EDT Routine [facility] OB [address] [place] [address] [place] [phone] Christy Schwartz PA [address] [place] [address] [place] [address] documented as of this encounter Goals Goal Patient Goal Type Associated Problems Recent Progress Patient-Stated? Author Reminders Care Plan OB Reminders No Open Scheduling, Background documented as of this encounter Visit Diagnoses Not on filedocumented in this encounter Additional Health Concerns Active Problems Noted Date Diagnosed Date OB Reminders 11/26/2024 documented as of this encounter
--- OUTSIDE RECORDS SUMMARY | 2025-04-18 21:02 | XMS_ITS | Clinical Summary ---
Author Organization [facility] Address [address] [place] [address] Care Team Providers Care Fisheries Director Name Role Phone Unavailable Primary Care Provider Unavailabl e Allergies No known active allergies Medications Alcohol Swabs (Alcohol Prep Pad) 70 % padsIndications :Elevated glucose tolerance test, resulting from in vitro fertilization, antepartum ([facility]) Apply 1 Pad topically Daily Use four times daily to check FSBS. 150 each 3 5 Active Blood Glucose Monitoring Suppl (D-Care Glucometer) w/Device kitIndications: Elevated glucose tolerance test, resulting from in vitro fertilization, antepartum ([facility]) 1 kit Daily Use four times daily to check FSBS. In the morning prior to breakfast & 1 hour after each meal for a total of 4times daily. 1 kit 5 12/23/19 26 Active insulin syringe 29G X 1/2 0.5 mL miscIndications :Gestational diabetes mellitus (GDM), antepartum, gestational diabetes method of control unspecified ([facility]) Use 2 syringes in the morning for [...] Date Type Department Care Team Description 04/18/2025 10:10 AM EDT Routine [facility] OB [address] [place] [address] Alfredo Donaldson, DO Third trimester ([facility]); 30 weeks gestation of ([facility]) 04/18/[address] [facility] OB [address] [facility] [place] [place] [address] Alfredo Donaldson, DO 04/17/2025 Clinisync Result Encounter NOMS External Department Unsolicited Alfredo Donaldson, DO 04/14/[address] [facility] OB [address] [place] [address] [place] [address] Yue Dumont MA 04/11/2025 Clinisync Result Encounter NOMS External Department Unsolicited Alfredo Donaldson, DO 04/11/2025 Clinisync Result Encounter NOMS External Department Unsolicited Alfredo Donaldson, DO 04/05/2025 Clinisync Result Encounter NOMS External Department Unsolicited Alfredo Donaldson, DO 03/30/2025 8:50 AM EDT [facility]ine [facility] OB [address] [facility] [place] [address] Christy Schwartz PA Second trimester ([facility]); 27 weeks gestation of ([facility]); Gestational diabetes mellitus (GDM), antepartum, gestational diabetes method of control unspecified ([facility]); Factor 5 Leiden mutation, heterozygous ([facility]); Conceived by in vitro fertilization 03/30/[address] [facility] OB [address] [place] [address] [place] [address] Christy Schwartz PA 03/30/2025 Travel 03/18/[address] [facility] OB [address] [place] [address] Yue Dumont MA 03/03/2025 8:40 AM EDT [facility] OB [address] [place] [address] Alfredo Donaldson, 23 weeks gestation of ([facility]); Second trimester ([facility]); induced hypertension, antepartum ([facility]); Insulin controlled gestational diabetes mellitus (GDM) during , antepartum ([facility]) 03/03/2025 Bamboo flowsheet NOM[facility] [address] [place] [address] Alfredo Donaldson, 03/02/2025 Travel 01/27/2025 Orders Only NOM[facility] [address] [place] [phone] Damaris Lopez LPN 01/20/2025 8:30 AM EDT Routine NOM[facility] [address] [place] [phone] Christy Schwartz PA Well woman exam with routine gynecological exam; 17 weeks gestation of ([facility]); Second trimester ([facility]); Exposure to STD; Vaginal discharge 01/20/2025 Clinisync Result Encounter NOMS External Department Unsolicited Christy Schwartz PA 01/20/2025 External Result Encounter NOMS External Department Unsolicited Christy Schwartz PA 01/20/2025 Bamboo flowsheet NOM[facility] [address] [place] [phone] Christy Schwartz PA 01/19/2025 Travel from Last [...] Mass Index 43.16 04/18/2025 10:34 AM EDT Plan of Treatment Upcoming Encounters Date Type Department Care Team (Late st Contact Info) Description 05/03/2025 8:50 AM EDT Routine [facility] OB [address] [facility] [address] Christy Schwartz PA [address] [place] [address] Health Maintenance Due Date Last Done Comments HPV/Cotest 2023 Cervical Cancer Screening 01/21/2028 Pap Smear 01/21/2028 01/20/2025 Influenza Vaccine Completed 08/03/2024, 09/08/2023, 10/07/2022 Goals Goal Patient Goal Type Associated Problems Recent Progress Patient-Stated? Author Reminders Care Plan OB Reminders No Open Scheduling, Background Procedures Procedure Name Priority Date/Time Associated Diagnosis Comments POCT URINALYSIS DIPSTICK Routine 04/18/2025 10:40 AM EDT Third trimester ([facility]) TBH TOTAL PROTEIN 24 HOUR URINE Routine 04/17/2025 10:30 AM EDT US OB BPP W NON-STRESS 04/11/2025 7:34 [...] 9:08 AM EDT 23 weeks gestation of ([facility]) Second trimester ([facility]) US OB 14+ WEEKS ANATOMY SCAN 02/09/2025 4:57 PM EDT RECURRENT VAGINITIS (HTRX) Routine 01/20/2025 9:56 AM EDT POCT URINALYSIS DIPSTICK Routine 01/20/2025 8:47 AM EDT 17 weeks gestation of ([facility]) Second trimester ([facility]) IGP,APTIMA HPV,AGE GDLN Routine 01/20/2025 8:29 AM EDT PAP SMEAR Routine 01/20/2025 12:00 AM EDT from Last 3 Months Results * POCT urinalysis dipstick manually resulted (04/18/2025 10:40 AM EDT) Only the most recent of3 resultswithin the time period is included. Color, UA Yellow Clarity, UA Clear Glucose, UA Negative Negative - 1999(110) ++++ mg/dL Bilirubin, UA Negative Negative - 4(70) +++ mg/dL Ketones, UA Negative Negative - 160(16) ++++ mg/dL Spec Grav, UA 1.010 1 - 1.03 Blood, UA Negative Negative - 50 Warren/mcL pH, UA 7.0 5 - 9 Protein, UA Negative Negative - 1999(20) ++++ mg/dL Urobilinogen, UA 0.2 0.2 - 12 mg/dL Leukocytes, UA Positive Negative - 500+++ Malick/mcL Comment:small Nitrite, UA Negative Negative - Positive Urine 04/18/2025 10:4 0 AM EDT Alfredo Donaldson DO POINT OF CARE TEST ENTER/EDIT OR DERABLES Final Result * (ABNORMAL) TBH TOTAL PROTEIN 24 HOUR URINE (04/17/2025 10:30 AM EDT) TOTAL PROTEIN URINE RANDOM 9.5 <=11.9 mg/dL TBH TOTAL VOLUME 24 HOUR URINE 3,000 mL/24hr TBH TBH TOTAL PROTEIN 24 HOUR URINE 285.0(H) <=149.1 mg/24hr TBH 04/17/2025 10:3 0 AM EDT 04/18/2025 10:26 AM EDT Narrative CLINISYNC - 04/18/2025 10:45 AM EDT Alfredo Donaldson DO CLINIS[facility]NC Final Result [facility] US OB BPP W NON-STRESS (04/11/2025 7:34 PM EDT) Only the most recent of2 resultswithin the time period is included. Anatomical Region Laterality Modality Other 04/11/2025 7:34 PM EDT Narrative 04/11/2025 7:36 PM EDT [address] [address] Ultrasound Report Signed Patient: KEVIN WHITE MR#: [id number] : 1995 Acct:[id number] Age/Sex: 29 / F ADM Date: 04/11/25 Loc: US Attending Dr: Belgica Scherer Ordering Physician: Alfredo Donaldson D.O. Date of Service: 04/11/25 Procedure(s): US OB BPP w non-stress Accession Number(s): [id number] cc: Alfredo Donaldson D.O. [address] [address] Patient Name: KEVIN WHITE MRN: [id number] date: 1995 Sex: F Assigned Patient Location: [facility] Current Patient Location: Accession/Order Number: [id number] Exam Date: 04/11/2025 19:33 Report Date: 04/11/2025 [...] Steen M.D. 04/11/2025 7:34 PM Dictation Location: [place] [address] Electronically authenticated by: [id number] Y Date: 04/11/2025 19:34 Dictated By: Zion Steen D.O. Signed By: 04/11/251935 DD/ 33 TD/TT: Bog Worker: Procedure Note Radiology, Radiologist, MD - 04/11/[address] [address] Ultrasound Report Signed Patient: KEVIN WHITEMR#: [id number] : 1995Acct:[id number] Age/Sex: 29 / FADM Date: 04/11/25 Loc: US Attending Dr: Belgica Scherer Ordering Physician: Alfredo Donaldson D.O. Date of Service: 04/11/25 Procedure(s): US OB BPP w non-stress Accession Number(s): [id number] cc: Alfredo Donaldson D.O. The [address] [address] Patient Name: KEVIN WHITE MRN: [id number] date: 1995 Sex: F Assigned Patient Location: [facility] Current Patient Location: Accession/Order Number: [id number] Exam Date: 04/11/2025 19:33 Report Date: 04/11/2025 [...] Steen M.D. 04/11/2025 7:34 PM Dictation Location: [place] Electronically authenticated by: [id number] Y Date: 9:34 Dictated By: Zion Steen D.O. Signed By:04/11/251935 DD/ 33 TD/TT: Bog Worker: Alfredo Donaldson DO CLINISYNC IMAGING Final Result * (ABNORMAL) TBH CREATININE (04/11/2025 4:52 PM EDT) CREATININE 0.36(L) 0.55 - 1.02 mg/dL TBH TBH EGFR-AF EGYPTIAN >60 >=60 mL/min/1.7 3m 2 TBH TBH EGFR-NON AF EGYPTIAN >60 >=60 mL/min/1.7 3m 2 TBH 04/11/2025 4:52 PM EDT 04/11/2025 4:56 PM EDT Narrative CLINISYNC - 04/11/2025 5:52 PM EDT [facility] M[place]za DO [facility]IS[facility] Final Result [facility] * SRMCOH PROTHROMBIN TIME INR W/O COUM [...] DO CLINISYNC Final Result Performing Organization Address [facility]/ZIP Co de Phone Number [facility] * (ABNORMAL) [facility] AST (04/11/2025 4:52 PM EDT) ASPARTATE AMINO TRANSFERASE 11(L) 15 - 37 U/L TB 04/11/2025 4:52 PM EDT 04/11/2025 4:56 PM EDT Narrative CLINISYNC - 04/11/2025 5:52 PM EDT Alfredo Mendoza DO CLINISYNC Final Result Performing Organization Address [facility] Co de Phone Number [facility] * [facility] APTT (04/11/2025 4:52 PM EDT) PARTIAL THROMBOPLASTIN TIME 27.3 22.3 - 36.2 sec [facility] 04/11/2025 4:52 PM EDT 04/11/2025 4:56 PM EDT Narrative CLINISYNC - 04/11/2025 5:57 PM EDT [facility] [place] Final Result Performing Organization Address [facility] Co de Phone Number [facility] * ALL URIC ACID (04/11/2025 4:52 PM EDT) URIC ACID 2.8 2.6 - 6.0 mg/dL TB 04/11/2025 4:52 PM EDT 04/11/2025 4:56 PM EDT Narrative CLINISYNC - 04/11/2025 5:52 PM EDT Alfredo Mendoza DO CLINISYNC Final Result CLINISYNC TB * ALL LDH (04/11/2025 4:52 PM EDT) Pathologist [facility] LACTATE DEHYDROGENASE 153 81 - 234 U/L TBH 04/11/2025 4:52 PM EDT 04/11/2025 4:56 PM EDT Narrative CLINISYNC - 04/11/2025 5:52 PM EDT Alfredo Mendoza DO CLINISYNC Final Result CLINISYNC TB * (ABNORMAL) ALL CBC WITH AUTO DIFF (04/11/2025 4:52 PM EDT) Pathologist [facility] TB WBC 7.3 4.0 - 11.0 10 3/uL TBH TBH RBC 3.64(L) 4.20 - 5.40 10 6/uL TBH TBH HGB 11.0(L) 12.0 - 16.0 g/dL TB TB HCT 31.7(L) 36.0 - 48.0 % TBH TBH MCV 87.1 81.0 - 99.0 fL TBH TBH MCH 30.2 26.7 - 34.0 pg TBH TBH MCHC 34.7 29.9 - 35.2 g/dL TB TBH RDW 13.4 11.0 - 15.0 % [...] - 04/11/2025 5:53 PM EDT us Alfredo Mendoza DO CLINISYNC Final Result [facility] * ALL BUN (04/11/2025 4:52 PM EDT) Pathologist [facility] BLOOD UREA NITROGEN 11.0 7.0 - 18.0 mg/dL TBH 04/11/2025 4:52 PM EDT 04/11/2025 4:56 PM EDT Narrative CLINISYNC - 04/11/2025 5:52 PM EDT us Alfredo Mendoza DO CLINISYNC Final Result [facility] * US OB 14+ weeks anatomy scan (02/09/2025 4:57 PM EDT) Anatomical Region Laterality Modality Body Ultrasound 02/09/2025 4:57 PM EDT Narrative 02/09/2025 4:57 PM EDT THIS EXAM WAS PERFORMED AT [facility] NAME: CINDY GRECO : 1995 SEX: F Accession Number: [id number] ORDERING PHYSICIAN: JAIDA RITTER REFERRING PHYSICIAN: ALFREDO DONALDSON Coding ----- --------- Procedures 39397: Ultrasound, uterus, real time with image documentation, and maternal evaluation plus detailed anatomic examination, transabdominal approach;single or first gestation 75784: Transvaginal Ultrasound (OB) 47894: Echocardiography, , cardiovascular system, real time with image documentation (2D), with or without M-mode recording Indication ----- --------- Screening for Anatomic Survey, Screening for cervical length, Screening for congenital cardiac abnormality, resulting from assisted reproductive technology, Gestational diabetes, Obesity in , Depression, Supervision of high risk (LT Choroid plexus cyst) History ----- --------- OB History 2. Para 0 [id number] Maternal Assessment ----- --------- Physical Exam Height [...] 0 lb 14 oz EFW by Hadlock ([id number]) Head / Face / Neck Biometry: Cephalic index 0.69 <1% Nicolaides Excellence Manager 6.4 mm CM 6.2 mm 82% Nicolaides [...] Thorax 4-chamber view. RVOT view. LVOT view. 3-hupsjf-pwfcaeo view. Diaphragm. Abdomen Cord insertion. Spine: Cervical [...] suboptimal RVOT view suboptimal 3-vessel view normal 7-rggyvf-jknxwcr view suboptimal Aortic arch view normal Ductal [...] today's exam. Recommendations ----- --------- Please see [facility] documentation from today. The patient is [...] - 02/09/2025 THIS EXAM WAS PERFORMED AT [facility] NAME: CINDY GRECO : 1995 SEX: F Accession Number: [id number] ORDERING PHYSICIAN: JAIDA RITTER REFERRING PHYSICIAN: ALFREDO DONALDSON Coding ----- --------- Procedures [id number]: Ultrasound, uterus, real time with imagedocumentation, and maternal evaluation plus detailed anatomic examination, transabdominalapproach;single or first gestation 43909: Transvaginal Ultrasound (OB) 84334: Echocardiography, , cardiovascular system, real timewith image documentation (2D), with or without M-mode recording Indication ----- --------- Screening for Anatomic Survey, Screening for cervical length, Screeningfor congenital cardiac abnormality, resulting from assisted reproductive technology, Gestational diabetes, Obesity inpregnancy, Depression, Supervision of high risk (LT Choroid plexus cyst) History ----- --------- OB History 2. Para 0 [id number] Maternal Assessment ----- --------- Physical Exam Height [...] 0 lb 14 oz EFW by Hadlock ([id number]) Head / Face / Neck Biometry: Cephalic index 0.69 <1% Nicolaides Excellence Manager 6.4 mm CM 6.2 mm 82% Nicolaides [...] Thorax 4-chamber view. RVOT view. LVOT view. 2-xbpfsf-pefodnrjswg. Diaphragm. Abdomen Cord insertion. Spine: Cervical spine. [...] suboptimal RVOT view suboptimal 3-vessel view normal 5-nsukvi-nhrxwie view suboptimal Aortic arch view normal Ductal [...] today's exam. Recommendations ----- --------- Please see [facility] documentation from today. The patient is scheduled in four week(s) to complete anatomic survey andfetal echocardiogram. Subsequent follow up or other follow up as clinically determined byprimary OB provider unless otherwise specified by [facility]. Results forwarded to ordering provider so they can follow up with thepatient as necessary. The copy-to physician of this order is ALFREDO Palacios The ordering physician of this order is JAIDA Vicente us Alfredo Donaldson DO IMG OB US PROCEDURES Final Resul t * RECURRENT VAGINITIS (HTRX) (01/20/2025 9:56 AM EDT) [facility] ATOPOBIUM VAGINAE 0.000 19.961 - 24.689 ppm 01/21/2025 6:29 AM EDT [facility] [place] ATOPOBIUM VAGINAE Not Detected 19.961 - 24.689 ppm 01/21/2025 6:29 AM EDT [facility] [place] BVAB 2,3 (BACTERIAL VAGINOSIS ASSOCIATED BACTERIA 2, 3); MOBILUNCUS SPP 0.000 19.961 - 24.689 ppm 01/21/2025 6:29 AM EDT [facility] [place] BVAB 2,3 (BACTERIAL VAGINOSIS ASSOCIATED BACTERIA 2, 3); MOBILUNCUS SPP Not Detected 19.961 - 24.689 ppm 01/21/2025 6:29 AM EDT [facility] DEAN ALBICANS, PARAPSILOSIS, TROPICALIS 0.000 19.961 - 30.770 ppm 01/21/2025 6:29 AM EDT [facility] DEAN ALBICANS, PARAPSILOSIS, TROPICALIS Not Detected 19.961 - 30.770 ppm 01/21/2025 6:29 AM EDT [facility] DEAN GLABRATA 0.000 23.000 - 32.138 ppm 01/21/2025 6:29 AM EDT [facility] DEAN GLABRATA Not Detected 23.000 - 32.138 ppm 01/21/2025 6:29 AM EDT [facility] DEAN KRUSEI 0.000 23.000 - 32.271 ppm 01/21/2025 6:29 AM EDT [facility] DEAN KRUSEI Not Detected 23.000 - 32.271 ppm 01/21/2025 6:29 AM EDT [facility] CHLAMYDIA TRACHOMATIS 0.000 23.000 - 31.467 ppm 01/21/2025 6:29 AM EDT [facility] CHLAMYDIA TRACHOMATIS Not Detected 23.000 - 31.467 ppm 01/21/2025 6:29 AM EDT [facility] GARDNERELLA VAGINALIS 0.000 19.961 - 24.689 ppm 01/21/2025 6:29 AM EDT [facility] GARDNERELLA VAGINALIS Not Detected 19.961 - 24.689 ppm 01/21/2025 6:29 AM EDT [facility] [place] MEGASPHAERA (TYPES 1, 2) 0.000 19.961 - 24.689 ppm 01/21/2025 6:29 AM EDT [facility] MEGASPHAERA (TYPES 1, 2) Not Detected 19.961 - 24.689 ppm 01/21/2025 6:29 AM EDT [facility] NEISSERIA GONORRHOEAE 0.000 23.000 - 32.117 ppm 01/21/2025 6:29 AM EDT [facility] [place] NEISSERIA GONORRHOEAE Not Detected 23.000 - 32.117 ppm 01/21/2025 6:29 AM EDT [facility] TRICHOMONAS VAGINALIS 0.000 23.000 - 32.119 ppm 01/21/2025 6:29 AM EDT [facility] TRICHOMONAS VAGINALIS Not Detected 23.000 - 32.119 ppm 01/21/2025 6:29 AM EDT [facility] [place] MYCOPLASMA GENITALIUM 0.000 19.961 - 24.689 ppm 01/21/2025 6:29 AM EDT [facility] [place] [facility] MYCOPLASMA GENITALIUM Not Detected 19.961 - 24.689 ppm 01/21/2025 6:29 AM EDT [facility] Tissue 01/20/2025 9:56 AM EDT 01/21/2025 1:43 AM EDT us Christy MCKOY LAB BLOOD ORDERABLES Final Resul t [facility] [address] [place] [address] * IGP,APTIMA HPV,AGE GDLN (01/20/2025 8:29 AM EDT) AGE GDLN ACOG TESTING Note . [facility] Comment: TESTS RESULT FLAG UNITS REF RANGE LAB Clinician Provided Cytology Information Source.............Cervix Other.............. No. of containers..01 ThinPrep Vial Age Algo ACOG Joann... 28 FLAG LEGEND: L-Low Normal,H-High Normal,LL-Alert Low,HH-Alert High <-Panic Low,>-Panic High,A-Abnormal,AA-Critical Abnormal Performed at: 01 =[address] [address] Tessy Corea MD, IGP, APTIMA HPV, RFX 16/18,45 Note . [facility] Comment: TESTS RESULT FLAG UNITS REF RANGE LAB DIAGNOSIS: 02 NEGATIVE FOR INTRAEPITHELIAL LESION OR MALIGNANCY. Specimen adequacy: 02 Satisfactory for evaluation. No endocervical component is identified. Performed by: Bailey Ambrose Servicer [employer] Trailers (ASCP) . 02 Note: Note 02 The [...] <-Panic Low,>-Panic High,A-Abnormal,AA-Critical Abnormal Performed at: [address] [address] Tessy Corea MD, HPV APTIMA Negative Negative [facility] Comment: This nucleic acid amplification test detects fourteen high- risk HPV types (16,18,31,33,35,39,45,51,52,56,58,59,66,68) without differentiation. Performed at: =[address] [id number] Glass Blower Helper: Tessy Corea MD, Phone: [phone] Performed at: [address] [id number] Glass Blower Helper: Tessy Corea MD, Phone: [phone] 01/20/2025 8:29 AM EDT 01/20/2025 12:46 PM EDT Narrative DELVINISYNC - 01/24/2025 11:08 AM EDT SPATULA-ALONE CERVIX us Christy MCKOY LAB BLOOD ORDERABLES Final Resul t [facility] * Pap Smear (01/20/2025 12:00 AM EDT) Swab Cervical swab / Unknown us [facility] Mendoza Nurse LAB CYTOLOGY ORDERABLES Final Result EXTERNAL LAB from Last 3 Months Additional Health Concerns Active Problems Noted Date Diagnosed Date OB Reminders 11/26/2024 Insurance [facility] Member Subscriber Plan / Payer (Ef fective 2024-Present) Name:Kevin White Relation to Subscriber:Spouse Name:CRISTINA WHITE Date of :1990 Address: [address] [place] [address] Payer ID:Not on file Type:Not on file Address: [facility] [id number] [place] [address]
--- OUTSIDE RECORDS SUMMARY | 2025-04-18 21:02 | XMS_ITS | Encounter Summary ---
Author Organization [facility] tem Address [facility]-[id number] [address] [place] [address] Care Team Providers Care Elementary Art Teacher Name Role Phone Unavailable Primary Care Provider Unavailabl e Encounter Details Date Type Department Care Team (Late st Contact Info) Description 04/12/2025 Telephone Maternal- Medicine at [facility] [address] [place] [phone] Sonya Lomax, RN Social History Tobacco Use [...] 11:30 AM EDT Telemedicine Maternal- Medicine at [facility] [address] [place] [phone] Devika Pulido, JASON [address] [address] 05/12/2025 8:00 AM EDT Appointment Maternal Medicine [place] [address] [facility] [address] [place] [address] documented as of this encounter Visit Diagnoses Not on filedocumented in this encounter Additional Health Concerns Assessment Noted Time PHQ-9 Depression Total Score: 2 07/03/20 16 9:00 AM EDT documented as of this encounter
--- OUTSIDE RECORDS SUMMARY | 2025-04-18 21:02 | XMS_ITS | Encounter Summary ---
Author Organization [facility] Address [address] [place] [address] Care Team Providers Care Head Cleaning Porter Name Role Phone Unavailable Primary Care Provider Unavailabl e Encounter Details Date Type Department Care Team (Late Contact Info) Description 04/11/2025 Clinisync Result Encounter NOMS External Department Unsolicited Cain Donaldson, DO [address] [facility] [address] Kelsey Prieto, [facility]11 Social History Tobacco Use Types Packs/Day Years [...] AM EDT Routine [facility]S BCP OB [address] [facility] [place] [phone] Christy Schwartz PA [address] [facility] [address] [place], [place] [phone] documented as of this encounter Goals Goal [...] - 04/11/2025 5:57 PM EDT us Cain Mendoza DO [facility] Final Result [facility] * SRMCOH PROTHROMBIN TIME INR [...] us Cain Veeo DO CL[facility] Final Result [facility] * (ABNORMAL) ALL CBC WITH AUTO DIFF [...] DO CLINISYNC Final Result Performing Organization Address [facility]/ZIP Co de Phone Number CLINISYNC [facility] [...] 0.55 - 1.02 mg/dL TBH [facility] EGFR-AF MAURITANIAN >60 >=60 mL/min/1.7 3m 2 TBH [facility] EGFR-NON AF MAURITANIAN >60 >=60 mL/min/1.7 3m 2 TBH 04/11/2025 [...]
--- OUTSIDE RECORDS SUMMARY | 2025-04-18 21:02 | XMS_ITS | Encounter Summary ---
Author Organization [facility] Address [address] [place] [address] Care Team Providers Care Microelectronics Technician Name Role Phone Unavailable Primary Care Provider Unavailabl e Encounter Details Date Type Department Care Team (Late st Contact Info) Description 11/12/2024 Abstract N[facility] OB [address] [facility] [place] [phone] Cain Donaldson DO [address] [facility] [address] Kelsey Prieto, [facility]11 Social History Tobacco Use Types Packs/Day [...] AM EDT Routine NOMS BCP OB [address] [facility] [place] [phone] Christy Schwartz PA [address] [facility] [address] [place], [place] [phone] documented as of this encounter Visit Diagnoses Not on filedocumented in this encounter
--- OUTSIDE RECORDS SUMMARY | 2025-04-18 21:02 | XMS_ITS | Encounter Summary ---
Author Organization [facility] Address [address] [place] [address] Care Team Providers Care Hospital Liaison Name Role Phone Unavailable Primary Care Provider Unavailabl e Encounter Details Date Type Department Care Team (Late Contact Info) Description 04/17/2025 Clinisync Result Encounter NOMS External Department Unsolicited Cain Donaldson, DO [address] [facility] [address] Kelsey Prieto, [facility]11 Social History Tobacco Use Types Packs/Day [...] [address] [facility] [place] [address] Christy Schwartz PA [address] [facility] [address] [place], [place] [phone] documented as of this encounter Goals Goal Patient Goal Type Associated Problems Recent Progress Patient-Stated? Author Reminders Care Plan OB Reminders No Open Scheduling, Background documented as of this encounter Procedures Procedure Name Priority Date/Time Associated Diagnosis Comments TBH TOTAL PROTEIN 24 HOUR URINE Routine 04/17/2025 10:30 AM EDT documented in this encounter Results * (ABNORMAL) TBH TOTAL PROTEIN 24 HOUR URINE (04/17/2025 10:30 AM EDT) TOTAL PROTEIN URINE RANDOM 9.5 <=11.9 mg/dL TBH TOTAL VOLUME 24 HOUR URINE 3,000 mL/24hr TBH TBH TOTAL PROTEIN 24 HOUR URINE 285.0(H) <=149.1 mg/24hr TBH 04/17/2025 10:3 0 AM EDT 04/18/2025 10:26 AM EDT Narrative CLINISYNC - 04/18/2025 10:45 AM EDT us Cain Mendoza DO [facility] documented in this encounter Visit Diagnoses Not on filedocumented in this encounter Additional Health Concerns Active Problems Noted Date Diagnosed Date OB Reminders 11/26/2024 documented as of this encounter
--- OUTSIDE RECORDS SUMMARY | 2025-04-18 21:02 | XMS_ITS | Encounter Summary ---
Author Organization [facility] Address [address] [place] [address] Care Team Providers Care Superannuation Funds Manager Name Role Phone Unavailable Primary Care Provider Unavailabl e Encounter Details Date Type Department Care Team (Late Contact Info) Description 12/27/2024 Abstract [facility] BCP OB [address] [facility] [place] [phone] Cain Donaldson DO [address] [place] [address] Dr Kelsey Prieto, [facility]11 Social History Tobacco Use Types Packs/Day [...] EDT Routine NOMS BCP OB [address] [facility] [place] [address] Christy Schwartz PA [address] [facility] [address] [place], [place] [phone] documented as of this encounter Goals Goal Patient Goal Type Associated Problems Recent Progress Patient-Stated? Author Reminders Care Plan OB Reminders No Open Scheduling, Background documented as of this encounter Visit Diagnoses Not on filedocumented in this encounter Additional Health Concerns Active Problems Noted Date Diagnosed Date OB Reminders 11/26/2024 documented as of this encounter
--- OUTSIDE RECORDS SUMMARY | 2025-04-18 21:02 | XMS_ITS | Encounter Summary ---
Author Organization [facility] Address [address] [place] [address] Care Team Providers Care Senior Pharmacy Technician Name Role Phone Unavailable Primary Care Provider Unavailabl e Encounter Details Date Type Department Care Team (Late Contact Info) Description 12/24/2024 Abstract [facility] BCP OB [address] [facility] [place] [phone] Cain Donaldson DO [address] [place] [address] Dr Kelsey Prieto, [facility]11 Social History Tobacco Use Types Packs/Day Years [...] AM EDT Routine NOMS BCP OB [address] [facility] [place] [address] Christy Schwartz PA [address] [facility] [address] [place], [place] [phone] documented as of this encounter Goals Goal Patient Goal Type Associated Problems Recent Progress Patient-Stated? Author Reminders Care Plan OB Reminders No Open Scheduling, Background documented as of this encounter Visit Diagnoses Not on filedocumented in this encounter Additional Health Concerns Active Problems Noted Date Diagnosed Date OB Reminders 11/26/2024 documented as of this encounter
--- OUTSIDE RECORDS SUMMARY | 2025-04-18 21:02 | XMS_ITS | Encounter Summary ---
Author Organization [facility] Address [address] [place] [address] Care Team Providers Care Jewelry Coater Name Role Phone Unavailable Primary Care Provider Unavailabl e Encounter Details Date Type Department Care Team (Late Contact Info) Description 04/11/2025 Clinisync Result Encounter NOMS External Department Unsolicited Alfredo Donaldson, DO [address] [facility] [address] Kelsey Prieto, [place] [address] Social History Tobacco Use Types Packs/Day Years [...] [address] [facility] [place] [address] Christy Schwartz PA [address] [facility] [address] [place], [place] [phone] documented as of this encounter Goals Goal [...] PM EDT Narrative 04/11/2025 7:36 [place] [address] Ultrasound Report Signed Patient: KEVIN WHITE MR#: [id number] : 1995 Acct:[id number] Age/Sex: 29 / F ADM Date: 04/11/25 Loc: US Attending Dr: Belgica Scherer Ordering Physician: Alfredo Donaldson D.O. Date of Service: 04/11/25 Procedure(s): US OB BPP w non-stress Accession Number(s): [id number] cc: Alfredo Donaldson D.O. [place] [address] Patient Name: KEVIN WHITE MRN: [id number] date: 1995 Sex: F Assigned Patient Location: [facility] Current Patient Location: Accession/Order Number: [id number] Exam Date: 04/11/2025 19:33 Report Date: 04/11/2025 [...] Steen M.D. 04/11/2025 7:34 PM Dictation Location: [place] [address] Electronically authenticated by: [id number] Y Date: 04/11/2025 19:34 Dictated By: Zion Steen D.O. Signed By: 04/11/251935 DD/ 33 TD/TT: Fruit And Vegetable Parer: Procedure Note Radiology, Radiologist, - 04/11/2025 The [place] [id number] Ultrasound Report Signed Patient: KEVIN WHITEMR#: [id number] : 1995Acct:[id number] Age/Sex: 29 / FADM Date: 04/11/25 Loc: US Attending Dr: Belgica Scherer Ordering Physician: Alfredo Donaldson D.O. Date of Service: 04/11/25 Procedure(s): US OB BPP w non-stress Accession Number(s): [id number] cc: Alfredo Donaldson D.O. The [place] [id number] Patient Name: KEVIN WHITE MRN: [id number] date: 1995 Sex: F Assigned Patient Location: [facility] Current Patient Location: Accession/Order Number: [id number] Exam Date: 04/11/2025 19:33 Report Date: 04/11/2025 [...] Steen M.D. 04/11/2025 7:34 PM Dictation [facility] Electronically authenticated by: [id number] Y Date: 9:34 Dictated By: Zion Steen D.O. Signed By:04/11/251935 DD/ 33 TD/TT: Fruit And Vegetable Parer: us Alfredo Donaldson DO [facility] Final Result documented in this encounter Visit Diagnoses Not on filedocumented in this encounter Additional Health Concerns Active Problems Noted Date Diagnosed Date OB Reminders 11/26/2024 documented as of this encounter
--- OUTSIDE RECORDS SUMMARY | 2025-04-18 21:02 | XMS_ITS | Encounter Summary ---
Author Organization [facility] Address [id number] [address] [place] [address] Care Team Providers Care Hospital Admissions Officer Name Role Phone Unavailable Primary Care Provider Unavailabl e Encounter Details Date Type Department Care Team (Late Contact Info) Description 12/30/2024 Orders Only Maternal- Medicine at [address] [phone] Ref Prov, [place] [address] Social History Tobacco Use Types Packs/Day Years [...] 11:30 AM EDT Telemedicine Maternal- Medicine at [facility] 2 [place] [phone] Devika Pulido, PAMoniqueC [address] [address] 05/12/2025 8:00 AM EDT Appointment Maternal Medicine [place] [address] [facility] 4 [place] [address] documented as of this encounter Visit Diagnoses Not on filedocumented in this encounter Additional Health Concerns Assessment Noted Time PHQ-9 Depression Total Score: 2 07/03/20 16 9:00 AM EDT documented as of this encounter
--- OUTSIDE RECORDS SUMMARY | 2025-04-18 21:02 | XMS_ITS | Encounter Summary ---
Author Organization [facility] Address [address] [place] [address] Care Team Providers Care Ethologist Name Role Phone Unavailable Primary Care Provider Unavailabl e Encounter Details Date Type Department Care Team (Late Contact Info) Description 11/26/2024 Abstract [facility] BCP OB [address] [facility] [phone] Cain Donaldson DO [address] [place] [address] Dr Kelsey Prieto, [facility]11 Social History Tobacco Use Types [...] AM EDT Routine NOMS BCP OB [address] [facility] [place] [address] Christy Schwartz PA [address] [facility] [address] [place], [place] [phone] documented as of this encounter Goals Goal Patient Goal Type Associated Problems Recent Progress Patient-Stated? Author Reminders Care Plan OB Reminders No Open Scheduling, Background documented as of this encounter Visit Diagnoses Not on filedocumented in this encounter Additional Health Concerns Active Problems Noted Date Diagnosed Date OB Reminders 11/26/2024 documented as of this encounter
--- OUTSIDE RECORDS SUMMARY | 2025-04-18 21:03 | XMS_ITS | Encounter Summary ---
Author Organization [facility] tem Address [facility]-[id number] [address] [place] [address] Care Team Providers Care Finishing Range Supervisor Name Role Phone Unavailable Primary Care Provider Unavailabl e Encounter Details Date Type Department Care Team (Late st Contact Info) Description 04/11/2025 Orders Only Maternal- Medicine at [facility] [address] [place] [phone] Devika Pulido PA-C [address] [address] Social History Tobacco Use Types Packs/Day Years [...] 11:30 AM EDT Telemedicine Maternal- Medicine at [facility] [address] [place] [address] Devika Pulido, PAMoniqueC [address] [address] 05/12/2025 8:00 AM EDT Appointment Maternal Medicine [place] [address] [facility] [address] [place] [phone] documented as of this encounter Visit Diagnoses Not on filedocumented in this encounter Additional Health Concerns Assessment Noted Time PHQ-9 Depression Total Score: 2 07/03/20 16 9:00 AM EDT documented as of this encounter
--- OUTSIDE RECORDS SUMMARY | 2025-04-18 21:03 | XMS_ITS | Encounter Summary ---
Author Organization [facility] [employer] [facility] Address [facility]-[id number] [address] [place] [address] Care Team Providers Care Test Engineer Name Role Phone Unavailable Primary Care Provider Unavailabl e Reason for Referral * Medication Prior Authorization - Closed Specialty Diagnoses / Procedures Referred By Contgonzalez t Referred To Contact Diagnoses Insulin controlled gestational diabetes mellitus (GDM) in second trimester Prediabetes in mother during Devika Pulido PA-C [address] [facility] [address] [address] Phone: tel: fax: Referral ID Status Reason Start Date Expiration Date Visits Re quested Visits Authorized [id number] Closed 1 1 Encounter Details Date Type Department Care Team (Latest Contact Info) Description 04/11/2025 Remote Patient Monitoring Maternal- Medicine at [facility] [address] [place] [phone] Devika Pulido PA-C [address] [id number] Insulin controlled gestational diabetes mellitus (GDM) in [...] AM EDT Telemedicine Maternal- Medicine at [facility] [address] [place] [phone] Devika Pulido PA-C [address] [address] 05/12/2025 8:00 AM EDT Appointment Maternal Medicine [place] [address] [facility] 4 [place] [address] documented as of this encounter Visit Diagnoses Diagnosis Insulin controlled gestational diabetes mellitus (GDM) in second trimester Prediabetes in mother during documented in this encounter Additional Health Concerns Assessment Noted Time PHQ-9 Depression Total Score: 2 07/03/20 16 9:00 AM EDT documented as of this encounter
--- OUTSIDE RECORDS SUMMARY | 2025-04-18 21:03 | XMS_ITS | Encounter Summary ---
Author Organization [facility] Address [address] [place] [address] Care Team Providers Care Cartography Professor Name Role Phone Unavailable Primary Care Provider Unavailabl e Encounter Details Date Type Department Care Team (Late Contact Info) Description 04/05/2025 Clinisync Result Encounter NOMS External Department Unsolicited Alfredo Donaldson, DO [address] [facility] [address] Kelsey Prieto, [place] [address] Social History Tobacco Use Types Packs/Day Years [...] OB [address] [facility] [address] Christy Schwartz PA [address] [facility] [address] [place], [place] [phone] documented as of this encounter Goals Goal [...] PM EDT Narrative 04/05/2025 6:01 [place] [address] Ultrasound Report Signed Patient: KEVIN WHITE MR#: [id number] : 1995 Acct:[id number] Age/Sex: 29 / F ADM Date: 04/05/25 Loc: [facility] 250-[address]: Belgica Scherer Ordering Physician: Alfredo Donaldson D.O. Date of Service: 04/05/25 Procedure(s): US OB BPP w non-stress Accession Number(s): [id number] cc: Alfredo Donaldson D.O. [place] [address] Patient Name: KEVIN WHITE MRN: [id number] date: 1995 Sex: F Assigned Patient Location: [facility] Current Patient Location: [facility] Accession/Order Number: [id number] Exam Date: 04/05/2025 17:57 Report Date: 04/05/2025 [...] Steen M.D. 04/05/2025 5:58 PM Dictation Location: [place] [address] Electronically authenticated by: [id number] Y Date: 04/05/2025 17:58 Dictated By: Zion Steen D.O. Signed By: 04/05/251800 DD/ 57 TD/TT: Lei Maker: Procedure Note Radiology, Radiologist, - 04/05/2025 [place] [address] Ultrasound Report Signed Patient: KEVIN WHITEMR#: [id number] : 1995Acct:[id number] Age/Sex: 29 / FADM Date: 04/05/25 Loc: [facility] 250-[address]: Belgica Scherer Ordering Physician: Alfredo Donaldson D.O. Date of Service: 04/05/25 Procedure(s): US OB BPP w non-stress Accession Number(s): [id number] cc: Alfredo Donaldson D.O. [place] [address] Patient Name: KEVIN WHITE MRN: [facility]:[id number] date: 1995 Sex: F Assigned Patient Location: [facility] Current Patient Location: [facility] Accession/Order Number: [id number] Exam Date: 04/05/2025 17:57 Report Date: 04/05/2025 [...] Steen M.D. 04/05/2025 5:58 PM Dictation Location: [place] [address] Electronically authenticated by: [id number] Y Date: 7:58 Dictated By: Zion Steen D.O. Signed By:04/05/251800 DD/ 57 TD/TT: Lei Maker: us Alfredo Mendoza DO [facility] Final Result documented in this encounter Visit Diagnoses Not on filedocumented in this encounter Additional Health Concerns Active Problems Noted Date Diagnosed Date OB Reminders 11/26/2024 documented as of this encounter
--- OUTSIDE RECORDS SUMMARY | 2025-04-18 21:03 | XMS_ITS | Encounter Summary ---
Author Organization [facility] Address [address] [facility] [place] [address] Care Team Providers Care Lumber Straightener Name Role Phone Unavailable Primary Care Provider Unavailabl e Encounter Details Date Type Department Care Team (Late Contact Info) Description 01/27/2025 Orders Only NOMS BCP OB [address] [facility] [phone] Damaris Lopez LPN [address] [facility] [address] [place] [phone] Social History Tobacco Use Types Packs/Day Years [...] AM EDT Routine NOMS BCP OB [address] [facility] [address] Christy Schwartz PA [address] [facility] [address] [place], [place] [address] documented as of this encounter Goals Goal [...]
--- OUTSIDE RECORDS SUMMARY | 2025-04-18 21:03 | XMS_ITS | Encounter Summary ---
Author Organization [facility] Address [address] [place] [address] Care Team Providers Care Merchant Seaman Name Role Phone Unavailable Primary Care Provider Unavailabl e Encounter Details Date Type Department Care Team (Late Contact Info) Description 01/10/2025 Abstract [facility] BCP OB [address] [facility] [place] [phone] Cain Donaldson DO [address] [place] [address] Dr Kelsey Prieto, [facility]11 Social History Tobacco Use Types Packs/Day Years [...] [facility] [place] [address] Christy Schwartz PA [address] [facility] [address] [place], [place] [address] documented as of this encounter Goals Goal Patient Goal Type Associated Problems Recent Progress Patient-Stated? Author Reminders Care Plan OB Reminders No Open Scheduling, Background documented as of this encounter Visit Diagnoses Not on filedocumented in this encounter Additional Health Concerns Active Problems Noted Date Diagnosed Date OB Reminders 11/26/2024 documented as of this encounter
--- OUTSIDE RECORDS SUMMARY | 2025-04-18 21:03 | XMS_ITS | Encounter Summary ---
Author Organization [facility] [employer] [facility] tem Address [id number] [address] [place] [address] Care Team Providers Care Valve Maker Name Role Phone Unavailable Primary Care [...] AM EDT Telemedicine Maternal- Medicine at [facility] [address] [facility] [place] [address] Devika Pulido, JASON [address] [address] 05/12/2025 8:00 AM EDT Appointment Maternal Medicine [place] [address] [facility] 4 [place] [address] documented as of this encounter Visit Diagnoses Not on filedocumented in this encounter Additional Health Concerns Assessment Noted Time PHQ-9 Depression Total Score: 2 07/03/20 16 9:00 AM EDT documented as of this encounter
--- OUTSIDE RECORDS SUMMARY | 2025-04-18 21:09 | XMS_ITS | CCD ---
Author Organization [facility] Care Team Providers Care Balancer Scale Name Role Phone Unavailable Primary Care Provider Unavailabl e NO FAMILY, PHYSICIAN Primary Care Provider Unava LINDSAY Duckworth Attending Provider Renita Fu Attending Unavailable Renita Fu Admitting Unavailable NO FAMILY, PHYSICIAN Primary Care Unavailable Unavailable Primary Care Provider Unavailabl e Unavailable Primary Care Provider Unavailabl e Unavailable Primary Care Provider Unavailabl e Unavailable Primary Care Provider Unavailabl e ZOLTONTAYLORJOSE Nicholas Referring Unavailable ZOLTON, JOSE R Referring Unavailable MENDOZA, CAIN DAVE Referring Unavailable [...] Referring Unavailable MENDOZA, CAIN R Referring Unavailable Medications Current Medications Medication Drug Class(es) Dates Sig (Normalized) Sig (Original) aspirin 81 mg chewable tablet (16 sources) Platelet Aggregation Inhibitor, Nonsteroidal Anti-inflammatory Drug aspirin 81 mg chewable tablet Chew 1 tablet (81 mg total) and swallow in the morning. Active Blood Glucose Monitoring Suppl (D-Care Glucometer) w/Device kit (18 sources) Start: 12-23-2024 End: 12-23-2025 Blood Glucose Monitoring Suppl (D-Care Glucometer) w/Device kit Indications: Elevated glucose tolerance test , resulting from in vitro fertilization, antepartum ([facility]) 1 kit Daily Use four times daily to check FSBS. In the morning prior to breakfast & 1 hour after each meal for a total of 4times daily. 1 kit 12/23/2024 12/23/2025 Active Start: 12-23-2024 End: 12-23-[address] Monitoring [address] (D-Care Glucometer) w/Device kit Indications: Elevated glucose [...] meal. Active cholecalciferol 0.025 mg oral tablet (20 sources) Vitamin D take 1 tablet by mouth in the morning cholecalciferol 1,000 units tablet Take 1 tablet (1,000 Units total) by mouth in the morning. Active 3 ml insulin glargine 100 unt/ml pen injector (20 sources) Insulin Analog Start: 04-11-20 insulin glargine (LANTUS SOLOSTAR U-100 INSULIN) 100 unit/mL (3 mL) insulin pen Indications: Insulin controlled gestational diabetes mellitus (GDM) in second trimester , Prediabetes in mother during Inject 25 units subcutaneously in abdomen every evening 15 mL 3 04/11/2025 Active Start: 03-30-2025 End: 04-11-2025 insulin glargine (LANTUS CHUY OSTAR U-100 INSULIN) 100 unit/mL (3 mL) insulin pen Indications: Insulin controlled gestational diabetes mellitus (GDM) in second trimester , Prediabetes in mother during Inject 22 units subcutaneously in abdomen every evening 15 mL 3 03/30/2025 04/11/2025 Discontinued Start: 03-07-2025 End: 03-30-2025 insulin glargine (LANTUS [...] , resulting from in vitro fertilization, antepartum ([facility]) Apply 1 Pad topically Daily Use [...] Discontinued PNV no.153/FA/om3/dha/epa/fi sh ( GUMMIES ORAL) (20 sources) take 2 tablets by mouth in [...] 02-08-2025 Chronic Other and delivery including normal (20 sources) ; Translations: [Encounter for supervision of normal , unspecified, unspecified trimester] Onset: 10-20-2024 11-25-2024 Episodic Other screening for suspected conditions (not mental disorders or infectious disease) (4 sources) Encounter for test, result unknown; Translations: [...] weeks gestation of ] Onset: 02-08-2025 Episodic Residual codes; unclassified (2 sources) Gestation period, 30 weeks; Translations: [30 weeks gestation of ] 04-18-2025 Episodic Superficial injury; contusion (1 source) Contusion of right knee, initial encounter; Translations: [Contusion of right knee, initial encounter] Onset: 04-06-2024 Episodic Unclassified (19 sources) OB Reminders Onset: 11-26-2024 11-26-2024 Unclassified [...] infection, unspecified] Onset: 09-25-2016 09-25-2016 Episodic Unclassified (2 sources) Prediabetes in mother during 03-30-2025 Results Test Name Value Interpretation Reference Range Facil ity [facility] TOTAL PROTEIN 24 HOUR UR INEon 04-18-2025 Interpretation and review of laboratory results Abnormal [facility] Protein (U) [Mass/Vol] 9.5 mg/dL NINF - 11.9 mg/dL [facility] TOTAL PROTEIN 24 HOUR URINE 285 High [facility] TOTAL VOLUME 24 HOUR URINE 3000 mL/24hr [facility] Urinalysis macro (dipstick) panel (U)on 04-18-2025 Bilirubin, UA Negative Negative - 4(70) +++ mg/dL [facility] Blood, UA Negative Negative - 50 Warren/mcL [facility] Clarity, UA Clear [facility] Color, UA Yellow [facility] Glucose, UA Negative Negative - 1999(110) ++++ mg/dL [facility] Interpretation and review of laboratory results Normal [facility] Ketones, UA Negative Negative - 160(16) ++++ mg/dL [facility] Leukocytes, UA Positive Negative - 500+++ Malick/mcL [facility] Comment on above: small Nitrite, UA Negative Negative - Positive [facility] pH, UA 7 5 - 9 [facility] Protein, UA Negative Negative - 1999(20) ++++ mg/dL [facility] Spec Grav, UA 1.01 1 - 1.03 [facility] Urobilinogen, UA 0.2 0.2 - 12 mg/dL [facility] ALL BUNon 04-11-2025 Urea nitrogen [Mass/Vol] 11 mg/dL 7.0 - 18.0 mg/dL [facility] ALL CBC WITH AUTO DIFFon BASOPHILS ABSOLUTE AUTO 0 [facility] Basophils/100 WBC (Bld) 0.3 % 0.2 - 2.0 % [facility] Eosinophils/100 WBC (Bld) 1.5 % 0.9 - 7.0 % [facility] Erythrocyte distribution width (RBC) [Ratio] 13.4 % 11.0 - 15.0 % [facility] Hematocrit (Bld) [Volume fraction] 31.7 % Low 36.0 - 48.0 % [facility] Hemoglobin (Bld) [Mass/Vol] 11 g/dL Low 12.0 - 16.0 g/dL [facility] IMMATURE GRANULOCYTES ABS AUTO 0.06 High [facility] Immature granulocytes/100 WBC (Bld) 0.8 % High 0.0 - 0.5 % [facility] Interpretation and review of laboratory results Abnormal [facility] LYMPHOCYTES ABSOLUTE AUTO 1.5 [facility] Lymphocytes/100 WBC (Bld) 20.5 % 20.5 - 60.0 % [facility] MCH (RBC) [Entitic mass] 30.2 pg 26.7 - 34.0 pg [facility] MCHC (RBC) [Mass/Vol] 34.7 g/dL 29.9 - 35.2 g/dL [facility] MCV (RBC) [Entitic vol] 87.1 fL 81.0 - 99.0 fL [facility] MONOCYTES ABSOLUTE AUTO 0.6 [facility] Monocytes/100 WBC (Bld) 7.8 % 1.7 - 12.0 % [facility] NEUTROPHILS ABSOLUTE AUTO 5.1 [facility] Neutrophils/100 WBC (Bld) 69.1 % 43.0 - 75.0 % [facility] Platelet mean volume (Bld) [Entitic vol] 10.6 fL 9.5 - 13.5 fL [facility] EO # 0.1 [facility] PLT 193 [facility] RBC 3.64 Low [facility] WBC 7.3 [facility] ALL LDHon 04-11-2025 LDH [Catalytic activity/Vol] 153 U/L 81 - 234 U/L [facility] ALL URIC ACIDon 04-11-2025 Urate [Mass/Vol] 2.8 mg/dL 2.6 - 6.0 mg/dL [facility] 04-11-2025 AST [Catalytic activity/Vol] 11 U/L Low 15 - 37 U/L [facility] No Panel Informationon 04-11 Interpretation and review of laboratory results Abnormal [facility] CREATININEon 04-11-2025 Creatinine [Mass/Vol] 0.36 mg/dL Low 0.55 - 1.02 mg/dL [facility] GFR/1.73 sq M.predicted CKD-EPI (S/P/Bld) [Vol rate/Area] >60 >=60 mL/min/1.73m 2 [facility] EGFR-NON AF WELSH >60 >=60 mL/min/1.73m 2 [facility] US OB BPP W NON-STRESS on 04-11-2025 [facility] [place] [id number] Ultrasound Report Signed Patient: FANNIE WHITE MR#: [id number] : 1995 Acct:[id number] Age/Sex: 29 / F ADM Date: 04/11/25 Loc: US Attending Dr: Belgica Scherer Ordering Physician: Cain Donaldson D.O. Date of Service: 04/11/25 Procedure(s): US OB BPP w non-stress Accession Number(s): [id number] cc: Cain Donaldson D.O. [facility] [place] [id number] Patient Name: FANNIE WHITE MRN: [facility]:[id number] date: 1995 Sex: F Assigned Patient Location: [facility] Current Patient Location: Accession/Order Number: [id number] Exam Date: 04/11/2025 19:33 Report Date: 04/11/2025 19:34 At the request of: CAIN DONALDSON DO Procedure: US OB BPP w [...] Steen M.D. 04/11/2025 7:34 PM Dictation Location: [place] [address] Electronically authenticated by: [id number] Y Date: 04/11/2025 19:34 Dictated By: Zion Steen D.O. Signed By: 04/11/251935 DD/ 33 TD/TT: Finishing [employer] Operator: [facility] Radiology, Radiologist, MD - 04/11/2025 [facility] [place] [id number] Ultrasound Report Signed Patient: FANNIE WHITE MR#: [id number] : 1995 Acct:[id number] Age/Sex: 29 / F ADM Date: 04/11/25 Loc: US Attending Dr: Belgica Scherer Ordering Physician: Cain Donaldson D.O. Date of Service: 04/11/25 Procedure(s): US OB BPP w non-stress Accession Number(s): [id number] cc: Cain Donaldson D.O. [place] [address] Patient Name: FANNIE WHITE MRN: [id number] date: 1995 Sex: F Assigned Patient Location: [facility] Current Patient Location: Accession/Order Number: [id number] Exam Date: 04/11/2025 19:33 Report Date: 04/11/2025 19:34 At the request of: CAIN DONALDSON DO Procedure: US OB BPP w [...] Steen M.D. 04/11/2025 7:34 PM Dictation Location: [place] [address] Electronically authenticated by: [id number] Y Date: 04/11/2025 19:34 Dictated By: Zion Steen D.O. Signed By: 04/11/251935 DD/ 33 TD/TT: [employer]ishing [employer] Operator: [facility] Radiology Study observation (narrative) [facility] US OB BPP W NON-STRESS Ordered By: Radiologist Radiology on 04-11-2025 [facility] Work Phone: Urinalysis macro (dipstick) panel (U)on 03-03-2025 Bilirubin, UA Negative Negative - 4(70) +++ mg/dL [facility] Blood, UA Negative Negative - 50 Warren/mcL [facility] Clarity, UA Clear [facility] Color, UA Yellow [facility] Glucose, UA Negative Negative - 2000(110) ++++ mg/dL [facility] Interpretation and review of laboratory results Abnormal [facility] Ketones, UA Negative Negative - 160(16) ++++ mg/dL [facility] Leukocytes, UA Trace Negative - 500+++ Malick/mcL [facility] Nitrite, UA Negative Negative - Positive [facility] pH, UA 7 5 - 9 [facility] Protein, UA Negative Negative - 2000(20) ++++ mg/dL [facility] Spec Grav, UA 1.015 1 - 1.03 [facility] Urobilinogen, UA 0.2 0.2 - 12 mg/dL [facility] AFP, Maternalon 02-11-2025 Determined by Other [facility] Comment on above: Performed By: #### A AFPM #### [facility] [address] [place], [place] [id number] City Superintendent: Kenneth Krishna MD Due Date SEE NOTE [facility] Comment on above: Result Comment: Resu lts for Estimated Due Date: 06 24 25 Performed By: #### A AFPM #### [facility] [address] [place], [place] [id number] City Superintendent: Kenneth Krishna MD Family History No [facility] Comment on above: Performed By: #### A AFPM #### [facility] [address] [place], [place] [id number] City Superintendent: Kenneth Krishna MD Gestat Age (exact) 20 wks, [address] [facility] Comment on above: Performed By: #### A AFPM #### [facility] [address] [place], [place] [id number] City Superintendent: Kenneth Krishna MD Ins Req Matern Diab [facility] Comment on above: Performed By: #### A AFPM #### [facility] [address] [place], [place] [id number] City Superintendent: Kenneth Krishna MD Interpretation Screen Neg [facility] Comment on above: Result Comment: (NOT E) INTERPRETATION: SCREEN NEGATIVE for open spina bifida Neural Tube Defects (NTD) Negative Pre-Test Post-Test Cutoff Neural Tube Defects Risks 1:1030 < 1:70479 1:250 Comments: The risk of an open neural tube defect is less than the screening cut-off. This test was developed and its performance characteristics determined by [facility]. It has not been cleared or approved by the [place] Food and Drug Administration. This test was performed in a CLIA certified laboratory and is intended for clinical purposes. Performed By: #### A AFPM #### [facility] [address] [place], [place] [id number] City Superintendent: Kenneth Krishna MD [age] [facility] Comment on above: Performed By: #### A AFPM #### [facility] [address] [place], [place] [id number] City Superintendent: Kenneth Krishna MD Maternal Race Nonblack [facility] Comment on above: Performed By: #### A AFPM #### [facility] [address] [place] [address] City Superintendent: Kenneth Krishna MD Maternal Weight 231.0 lbs. [facility] Comment on above: Performed By: #### A AFPM #### [facility] [address] [place] [address] City Superintendent: Kenneth Krishna MD MoM for AFP 0.85 [facility] Comment on above: Performed By: #### A AFPM #### [facility] [address] [place] [address] City Superintendent: Kenneth Krishna MD Number of Fetuses [place] Comment on above: Performed By: #### A AFPM #### [facility] [address] [place], [place] [id number] City Superintendent: Kenneth Krishna MD Patient's AFP 41 ng/mL [facility] Comment on above: Performed By: #### A AFPM #### [facility] [address] [place] [address] City Superintendent: Kenneth Krishna MD Smoking No [facility] Comment on above: Performed By: #### A AFPM #### [facility] [address] [place] [address] City Superintendent: Kenneth Krishna MD Specimen See Note [facility] Comment on above: Result Comment: (NOT E) Initial sample Performed By: [facility] [address] [place] [address] Rn Nursery: Jose Joseph MD, PhD CLIA Number: [id number] Performed By: #### A AFPM #### [facility] [address] [place] [address] City Superintendent: Kenneth Krishna MD Urinalysis macro (dipstick) panel (U)on 01-20-2025 Bilirubin, UA Negative Negative - 4(70) +++ mg/dL [facility] Blood, UA Negative Negative - 50 Warren/mcL [facility] Comment on above: trace Clarity, UA Clear [facility] Color, UA Renita [facility] Glucose, UA Negative Negative - 2000(110) ++++ mg/dL [facility] Interpretation and review of laboratory results Abnormal [facility] Ketones, UA Positive Negative - 160(16) ++++ mg/dL [facility] Leukocytes, UA Trace Negative - 500+++ Malick/mcL [facility] Nitrite, UA Negative Negative - Positive [facility] pH, UA 7 5 - 9 [facility] Protein, UA Trace Negative - 2000(20) ++++ mg/dL [facility] Spec Grav, UA 1.02 1 - 1.03 [facility] Urobilinogen, UA 1.0 0.2 - 12 mg/dL [facility] Cult,Urineon 12-24-2024 Cult,Urine Specimen Description .URINE Culture NO GROWTH Report Status FINAL 12/24/2024 [facility] Comment on above: Performed By: #### U RC #### [place] [address] [place] [address] City Superintendent: Jason Rodriguez MD [facility] [address] [place], [place] [id number] City Superintendent: Sherwin Elam MD HIV Ag/Abon 12-24-2024 HIV Ag/Ab Non-Reactive Normal NR [facility] Comment on above: Result Comment: No l aboratory evidence of HIV infection. If acute HIV infection is suspected, consider testing for HIV-1 RNA. Performed By: #### R UBI, HBS, TREP, AHCV, HIVCMB, GLYHGB #### [facility] [address] [place] [id number] City Superintendent: Jason Rodriguez MD #### CDP, SIDNEY #### [facility] [address] [place], [place] [id number] City Superintendent: Sherwin Elam MD Hemoglobin A1Con 12-24-2024 Glucose [Mass/Vol] 94 mg/dL Normal [facility] Comment on above: Result Comment: The ADA and AACC recommend providing the estimated average glucose result to permit better patient understanding of their HBA1c result. Performed By: #### R UBI, HBS, TREP, AHCV, HIVCMB, GLYHGB #### [address] [address] City Superintendent: Jason Rodriguez MD #### CDP, SIDNEY #### [facility] [address] [place], [place] [id number] City Superintendent: Sherwin Elam MD HbA1c (Bld) [Mass fraction] 4.9 % Normal 4.0-6.0 [facility] Comment on above: Performed By: #### R UBI, HBS, TREP, AHCV, HIVCMB, GLYHGB #### [address] [id number] City Superintendent: Jason Rodriguez MD #### CDP, SIDNEY #### [facility] [address] [place], [place] [id number] City Superintendent: Sherwin Elam MD Hep B Surf Agon 12-24-2024 Hep B Surf Ag Non-Reactive Normal NR [facility] Comment on above: Performed By: #### R UBI, HBS, TREP, AHCV, HIVCMB, GLYHGB #### [address] [id number] City Superintendent: Jason Rodriguez MD #### KARRI, SIDNEY #### [facility] [address] [place] [address] City Superintendent: Sherwin Elam MD Hep C Abon 12-24-2024 Hep C Ab Non-Reactive Normal NR [facility] Comment on above: Result Comment: [...] UBI, HBS, TREP, AHCV, HIVCMB, GLYHGB #### [address] [id number] City Superintendent: Jason Rodriguez MD #### KARRI, SIDNEY #### [facility] [address] [place] [address] City Superintendent: Sherwin Elam MD Rubella Ab, IgGon 12-24-2024 Rubella Ab, IgG 78.0 IU/mL Normal [facility] Comment on above: Result Comment: <10 NON REACTIVE Negative for Anti-Rubella IgG >=10 REACTIVE Positive for Anti Rubella IgG The presence of IgG antibody to Rubella virus is an indication of previous exposure either by prior infection or vaccination. Performed By: #### R UBI, HBS, TREP, AHCV, HIVCMB, GLYHGB #### [address] [id number] City Superintendent: Jason Rodriguez MD #### CDP, SIDNEY #### [facility] [address] [place] [address] City Superintendent: Sherwin Elam MD T.pallidum Ab Screenon 12-24 T.pallidum Ab Screen Non-Reactive Normal NR [facility] Comment on above: Result Comment: T. pallidum antibodies are not detected. There is no serological evidence of infection with T. pallidum (early primary syphilis cannot be excluded). Retest in 2-4 weeks if syphilis is clinically suspect. Performed By: #### R UBI, HBS, TREP, AHCV, HIVCMB, GLYHGB #### [facility] [address] [place] [address] City Superintendent: Jason Rodriguez MD #### KARRI, SIDNEY #### [facility] [address] [place] [address] City Superintendent: Sherwin Elam MD CBC with Auto Differentialon 12-23-2024 Basophils (Bld) [#/Vol] 0.02 10*3/uL [facility] Basophils/100 WBC (Bld) 0 % 0 - 2 % [facility] Eosinophils (Bld) [#/Vol] 0.13 10*3/uL [facility] Eosinophils/100 WBC (Bld) 2 % 0 - 5 % [facility] Erythrocyte distribution width (RBC) [Ratio] 12.5 % 12.1 - 15.2 % [facility] Hematocrit (Bld) [Volume fraction] 35.9 % Low 36.0 - 46.0 % [facility] Hemoglobin (Bld) [Mass/Vol] 12.5 g/dL 12.0 - 16.0 g/dL [facility] Immature granulocytes (Bld) [#/Vol] 0.02 10*3/uL [facility] Immature granulocytes/100 WBC (Bld) 0 % 0 - 5 % [facility] Interpretation and review of laboratory results Abnormal [facility] Lymphocytes/100 WBC (Bld) 21 % 15 - 40 % [facility] Lymphocytes/100 WBC (Bld) 1.55 % [facility] MCH (RBC) [Entitic mass] 29.6 pg 26.0 - 34.0 pg [facility] MCHC (RBC) [Mass/Vol] 34.8 g/dL 31.0 - 37.0 g/dL [facility] MCV (RBC) [Entitic vol] 84.9 fL 80.0 - 100.0 fL [facility] Monocytes/100 WBC (Bld) 9 % High 4 - 8 % [facility] Monocytes/100 WBC (Bld) 0.65 % [facility] Neutrophils/100 WBC (Bld) 68 % 47 - 75 % [facility] Platelet mean volume (Bld) [Entitic vol] 9.9 fL 6.0 - 12.0 fL [facility] Platelets (Bld) [#/Vol] 238 10*3/uL [facility] RBC (Bld) [#/Vol] 4.23 10*6/uL 4.00 - 5.2 0 m/uL [facility] Segmented neutrophils/100 WBC (Bld) 4.87 % [facility] WBC other (Bld) [#/Vol] 7.2 [facility] CBC with Diffon 12-23-2024 Abs. Basophil 0.02 k/uL Normal 0.00-0.20 [facility] Comment on above: Performed By: #### R UBI, HBS, TREP, AHCV, HIVCMB, GLYHGB #### [facility] [address] [place] [address] City Superintendent: Jason Rodriguez MD #### SIDNEY ZENG #### [facility] [address] [place] [address] City Superintendent: Sherwin Elam MD Abs.Imm.Granulocyte 0.02 k/uL Normal 0.00-0.30 [facility] Comment on above: Performed By: #### R UBI, HBS, TREP, AHCV, HIVCMB, GLYHGB #### [address] [id number] City Superintendent: Jason Rodriguez MD #### CDP, SIDNEY #### [facility] [address] [place], [place] [id number] City Superintendent: Sherwin Elam MD Abs.Neutrophil (Seg) 4.87 k/uL Normal 2.5-7.[address] [facility] Comment on above: Performed By: #### R UBI, HBS, TREP, AHCV, HIVCMB, GLYHGB #### [address] [id number] City Superintendent: Jason Rodriguez MD #### CDP, SIDNEY #### [facility] [address] [place] [address] City Superintendent: Sherwin Elam MD Basophils/100 WBC (Bld) 0 % Normal 0-2 [facility] Comment on above: Performed By: #### R UBI, HBS, TREP, AHCV, HIVCMB, GLYHGB #### [address] [id number] City Superintendent: Jason Rodriguez MD #### CDP, SIDNEY #### [facility] [address] [place], [place] [id number] City Superintendent: Sherwin Elam MD Eosinophils (Bld) [#/Vol] 0.13 10*3/uL Normal 0.00-0.40 [facility] Comment on above: Performed By: #### R UBI, HBS, TREP, AHCV, HIVCMB, GLYHGB #### [address] [id number] City Superintendent: Jason Rodriguez MD #### CDP, SIDNEY #### [facility] [address] [place], [place] [phone] City Superintendent: Sherwin Elam MD Eosinophils/100 WBC (Bld) 2 % Normal 0-5 [facility] Comment on above: Performed By: #### R UBI, HBS, TREP, AHCV, HIVCMB, GLYHGB #### [address] [id number] City Superintendent: Jason Rodriguez MD #### CDP, SIDNEY #### [facility] [address] [place], [place] [phone] City Superintendent: Sherwin Elam MD Erythrocyte distribution width (RBC) [Ratio] 12.5 % Normal 12.1-15.2 [facility] Comment on above: Performed By: #### R UBI, HBS, TREP, AHCV, HIVCMB, GLYHGB #### [address] [id number] City Superintendent: Jason Rodriguez MD #### KARRI, SIDNEY #### [facility] [address] [place] [id number] City Superintendent: Sherwin Elam MD Hematocrit (Bld) [Volume fraction] 35.9 % Low 36.0-46.0 [facility] Comment on above: Performed By: #### R UBI, HBS, TREP, AHCV, HIVCMB, GLYHGB #### [address] [id number] City Superintendent: Jason Rodriguez MD #### KARRI, SIDNEY #### [facility] [address] [place], [place] [phone] City Superintendent: Sherwin Elam MD Hemoglobin (Bld) [Mass/Vol] 12.5 g/dL Normal 12.0-16.0 [facility] Comment on above: Performed By: #### R UBI, HBS, TREP, AHCV, HIVCMB, GLYHGB #### [address] [id number] City Superintendent: Jason Rodriguez MD #### CDP, SIDNEY #### [facility] [address] [place] [address] City Superintendent: Sherwin Elam MD Immature granulocytes/100 WBC (Bld) 0 % Normal 0-5 [facility] Comment on above: Performed By: #### R UBI, HBS, TREP, AHCV, HIVCMB, GLYHGB #### [address] [id number] City Superintendent: Jason Rodriguez MD #### CDP, SIDNEY #### [facility] [address] [place] [address] ( City Superintendent: Sherwin Elam MD Lymphocytes (Bld) [#/Vol] 1.55 10*3/uL Normal 1.00-4.80 [facility] Comment on above: Performed By: #### R UBI, HBS, TREP, AHCV, HIVCMB, GLYHGB #### [address] [phone] City Superintendent: Jason Rodriguez MD #### KARRI, SIDNEY #### [facility] [address] [place] [address] City Superintendent: Sherwin Elam MD Lymphocytes/100 WBC (Bld) 21 % Normal 15-40 [facility] Comment on above: Performed By: #### R UBI, HBS, TREP, AHCV, HIVCMB, GLYHGB #### [address] [id number] City Superintendent: Jason Rodriguez MD #### CDP, SIDNEY #### [facility] [address] [place] [address] City Superintendent: Sherwin Elam MD MCH (RBC) [Entitic mass] 29.6 pg Normal 26.0-34.0 [facility] Comment on above: Performed By: #### R UBI, HBS, TREP, AHCV, HIVCMB, GLYHGB #### [address] [id number] City Superintendent: Jason Rodriguez MD #### KARRI, SIDNEY #### [facility] [address] [place] [address] City Superintendent: Sherwin Elam MD MCHC (RBC) [Mass/Vol] 34.8 g/dL Normal 31.0-37.0 [facility] Comment on above: Performed By: #### R UBI, HBS, TREP, AHCV, HIVCMB, GLYHGB #### [place] [id number] City Superintendent: Jason Rodriguez MD #### KARRI, SIDNEY #### [facility] [address] [place] [phone] City Superintendent: Sherwin Elam MD MCV (RBC) [Entitic vol] 84.9 fL Normal 80.0-100.0 [facility] Comment on above: Performed By: #### R UBI, HBS, TREP, AHCV, HIVCMB, GLYHGB #### [place] [id number] City Superintendent: Jason Rodriguez MD #### KARRI, SIDNEY #### [facility] [address] [place] [phone] City Superintendent: Sherwin Elam MD Monocytes (Bld) [#/Vol] 0.65 10*3/uL Normal 0.00-1.00 [facility] Comment on above: Performed By: #### R UBI, HBS, TREP, AHCV, HIVCMB, GLYHGB #### [address] [phone] City Superintendent: Jason Rodriguez MD #### KARRI, SIDNEY #### [facility] [address] [place], [place] [id number] City Superintendent: Sherwin Elam MD Monocytes/100 WBC (Bld) 9 % High 4-8 [facility] Comment on above: Performed By: #### R UBI, HBS, TREP, AHCV, HIVCMB, GLYHGB #### [address] [address] City Superintendent: Jason Rodriguez MD #### KARRI, SIDNEY #### [facility] [address] [place], [place] [id number] City Superintendent: Sherwin Elam MD Neutrophil (Seg) 68 % Normal 47-75 [facility] Comment on above: Performed By: #### R UBI, HBS, TREP, AHCV, HIVCMB, GLYHGB #### [address] [phone] City Superintendent: Jason Rodriguez MD #### KARRI, SIDNEY #### [facility] [address] [place], [place] [phone] City Superintendent: Sherwin Elam MD Platelet mean volume (Bld) [Entitic vol] 9.9 fL Normal 6.0-12.0 [facility] Comment on above: Performed By: #### R UBI, HBS, TREP, AHCV, HIVCMB, GLYHGB #### [address] [address] City Superintendent: Jason Rodriguez MD #### KARRI, SIDNEY #### [facility] [address] [place], [place] [phone] City Superintendent: Sherwin Elam MD Platelets (Bld) [#/Vol] 238 10*3/uL Normal 140-450 [facility] Comment on above: Performed By: #### R UBI, HBS, TREP, AHCV, HIVCMB, GLYHGB #### [address] [phone] City Superintendent: Jason Rodriguez MD #### CDP, SIDNEY #### [facility] [address] [place], [place] [phone] City Superintendent: Sherwin Elam MD RBC (Bld) [#/Vol] 4.23 10*6/uL Normal 4.00-5.20 [facility] Comment on above: Performed By: #### R UBI, HBS, TREP, AHCV, HIVCMB, GLYHGB #### [address] [phone] City Superintendent: Jason Rodriguez MD #### CDP, SIDNEY #### [facility] [address] [place], [place] [phone] City Superintendent: Sherwin Elam MD WBC (Bld) [#/Vol] 7.2 10*3/uL Normal 3.5-11.0 [facility] Comment on above: Performed By: #### R UBI, HBS, TREP, AHCV, HIVCMB, GLYHGB #### [address] [phone] City Superintendent: Jason Rodriguez MD #### CDP, SIDNEY #### [facility] [address] [place], [place] [phone] City Superintendent: Sherwin Elam MD Drug Scr, Abuse, Uron 2024 Amphetamine(s),Ur Negative Normal NEG [facility] Comment on above: Result Comment: Cuto ff: 1000 ng/mL Performed By: #### R UBI, HBS, TREP, AHCV, HIVCMB, GLYHGB #### [address] [phone] City Superintendent: Jason Rodriguez MD #### CDP, SIDNEY #### [facility] [address] [place], [place] [phone] City Superintendent: Sherwin Elam MD Barbiturate(s),Ur Negative Normal NEG [facility] Comment on above: Result Comment: Cuto ff: 200 ng/ml Performed By: #### R UBI, HBS, TREP, AHCV, HIVCMB, GLYHGB #### [address] [address] City Superintendent: Jason Rodriguez MD #### CDP, SIDNEY #### [facility] [address] [place] [address] City Superintendent: Sherwin Elam MD Benzodiazepine(s) Negative Normal NEG [facility] Comment on above: Result Comment: Cuto ff: 200 ng/ml Performed By: #### R UBI, HBS, TREP, AHCV, HIVCMB, GLYHGB #### [address] [address] City Superintendent: Jason Rodriguez MD #### CDP, SIDNEY #### [facility] [address] [place] [address] City Superintendent: Sherwin Elam MD Cannabinoid(s),Ur Negative Normal NEG [facility] Comment on above: Result Comment: Cuto ff: 50 ng/ml Performed By: #### R UBI, HBS, TREP, AHCV, HIVCMB, GLYHGB #### [address] [address] City Superintendent: Jason Rodriguez MD #### CDP, SIDNEY #### [facility] [address] [place] [address] City Superintendent: Sherwin Elam MD Fentanyl, Urine Negative Normal NEG [facility] Comment on above: Result Comment: Cuto ff: 5 ng/ml Performed By: #### R UBI, HBS, TREP, AHCV, HIVCMB, GLYHGB #### [address] [address] City Superintendent: Jason Rodriguez MD #### CDP, SIDNEY #### [facility] [address] [place] [address] City Superintendent: Sherwin Elam MD Methadone Ql (U) Negative Normal NEG [facility] Comment on above: Result Comment: Cuto ff: 300 ng/ml Performed By: #### R UBI, HBS, TREP, AHCV, HIVCMB, GLYHGB #### [address] [address] City Superintendent: Jason Rodriguez MD #### CDP, SIDNEY #### [facility] [address] [place] [address] City Superintendent: Sherwin Elam MD Opiate(s), Ur Negative Normal NEG [facility] Comment on above: Result Comment: Cuto ff: 300 ng/ml Performed By: #### R UBI, HBS, TREP, AHCV, HIVCMB, GLYHGB #### [address] [address] City Superintendent: Jason Rodriguez MD #### CDP, SIDNEY #### [facility] [address] [place] [address] City Superintendent: Sherwin Elam MD Oxycodone, Urine Negative Normal NEG [facility] Comment on above: Result Comment: Cuto ff: 100 ng/ml Performed By: #### R UBI, HBS, TREP, AHCV, HIVCMB, GLYHGB #### [address] [address] City Superintendent: Jason Rodriguez MD #### CDP, SIDNEY #### [facility] [address] [place] [address] City Superintendent: Sherwin Elam MD Phencyclidine, Ur Negative Normal NEG [facility] Comment on above: Result Comment: Cuto ff: 25 ng/ml Performed By: #### R UBI, HBS, TREP, AHCV, HIVCMB, GLYHGB #### [address] [phone] City Superintendent: Jason Rodriguez MD #### CDP, SIDNEY #### [facility] [address] [place], [place] [phone] City Superintendent: Sherwin Elam MD Interpretive Info This method is a screening test to detect only these drug classes as part of a Normal [facility] Comment on above: Result Comment: medi luis workup. Confirmatory testing by another method should be ordered if clinically indicated. Performed By: #### R UBI, HBS, TREP, AHCV, HIVCMB, GLYHGB #### [address] [phone] City Superintendent: Jason Rodriguez MD #### CDP, SIDNEY #### [facility] [address] [place] [address] City Superintendent: Sherwin Elam MD Drug Scr, Abuse, UrOrdered B y: Janay Vázquez on 12-23-2024 Cocaine Metabolite Negative Normal NEG [facility] Comment on above: Result Comment: Cuto ff: 300 ng/ml Performed By: #### R UBI, HBS, TREP, AHCV, HIVCMB, GLYHGB #### [address] [phone] City Superintendent: Jason Rodriguez MD #### CDP, SIDNEY #### [facility] [address] [place] [address] City Superintendent: Sherwin Elam MD Drug Screen, UrineOrdered By : Janay Vázquez on 12-23-2024 Amphetamine/Methamph etamine Negative [facility] Barbiturates Negative [facility] Benzodiazepines Negative [facility] Ecstasy Negative [facility] Methadone Negative [facility] Opiates Negative [facility] Oxycodone Negative [facility] Phencyclidine Negative [facility] Thc Marijuana, Urine Negative [facility] HIV 1&2 AB/AG Screen (P24 AG )on 12-23-2024 HIV 1&2 AB/AG Non-Reactive [facility] Hemoglobin A1con 12-23-2024 HbA1c (Bld) [Mass fraction] 4.9 % 4.0 - 6.0 % [facility] Hepatitis B surface antigeno n 12-23-2024 Hepatitis B Surface Antigen Non-Reactive [facility] Hepatitis C(HCV) Ab w/ Refle x to PCRon 12-23-2024 HCV Ab Ql (S) Non-Reactive [facility] MHPT CBC WITH DIFFon 025 Basophils/100 WBC (Bld) 0 % 0 - 2 % [facility] Eosinophils/100 WBC (Bld) 2 % 0 - 5 % [facility] Erythrocyte distribution width (RBC) [Ratio] 12.5 % 12.1 - 15.2 % [facility] Hematocrit (Bld) [Volume fraction] 35.9 % Low 36.0 - 46.0 % [facility] Hemoglobin (Bld) [Mass/Vol] 12.5 g/dL 12.0 - 16.0 g/dL [facility] Immature granulocytes/100 WBC (Bld) 0 % 0 - 5 % [facility] Interpretation and review of laboratory results Abnormal [facility] Lymphocytes/100 WBC (Bld) 21 % 15 - 40 % [facility] MCH (RBC) [Entitic mass] 29.6 pg 26.0 - 34.0 pg [facility] MCHC (RBC) [Mass/Vol] 34.8 g/dL 31.0 - 37.0 g/dL [facility] MCV (RBC) [Entitic vol] 84.9 fL 80.0 - 100.0 [facility]L [facility]02 [facility] EOSINOPHIL 0.13 [facility] LYMPH 1.55 [facility] MONOCYTE 0.65 [facility].IMM.GRANULOCYTE 0.02 [facility].NEUTROPHIL (SEG) 4.87 [facility] 238 [facility] 7.2 [facility] Monocytes/100 WBC (Bld) 9 % High 4 - 8 % [facility] Platelet mean volume (Bld) [Entitic vol] 9.9 fL 6.0 - 12.0 fL [facility] RBC (Bld) [#/Vol] 4.23 10*6/uL 4.00 - 5.2 0 m/uL [facility] Segmented neutrophils/100 WBC (Bld) 68 % 47 - 75 % [facility] Original Ordering Provider: CAIN ACOSTA [facility] MHPT DRUG SCR, ABUSE, URon 0 12-23-2024 MHPT AMPHETAMINE(S),UR Negative NEG [facility] Comment on above: Cutoff: 1000 ng/mL MHPT BARBITURATE(S),UR Negative NEG [facility] Comment on above: Cutoff: 200 ng/ml MHPT BENZODIAZEPINE(S) Negative NEG [facility] Comment on above: Cutoff: 200 ng/ml MHPT CANNABINOID(S),UR Negative NEG [facility] Comment on above: Cutoff: 50 ng/ml MHPT COCAINE METABOLITE Negative NEG [facility] Comment on above: Cutoff: 300 ng/ml MHPT FENTANYL, URINE Negative NEG [facility] Comment on above: Cutoff: 5 ng/ml MHPT INTERPRETIVE INFO This method is a screening test to detect only these drug classes as part of a [facility] Comment on above: medical workup. Conf irmatory testing by another method should be ordered if clinically indicated. MHPT METHADONE Negative NEG [facility] Comment on above: Cutoff: 300 ng/ml MHPT OPIATE(S), UR Negative NEG [facility] Comment on above: Cutoff: 300 ng/ml MHPT OXYCODONE, URINE Negative NEG [facility] Healthcare Comment on above: Cutoff: 100 ng/ml MHPT PHENCYCLIDINE, UR Negative NEG [facility] Comment on above: Cutoff: 25 ng/ml Original Ordering Provider: CAIN ACOSTA [facility] No Panel Informationon 12-23 [facility] TYPE AND SCREENon 0 12-23-2024 ABO and Rh group Nom (Bld) Blood group B Rh(D) positive [facility] Blood group antibodies identified Nom Negative [facility] Type + Scrnon 12-23 Type + Scrn Negative [facility] Comment on above: Performed By: #### R UBI, HBS, TREP, AHCV, HIVCMB, GLYHGB #### [facility] [address] [place], [place] [phone] City Superintendent: Jason Rodriguez MD #### CDP, SIDNEY #### [facility] [address] [place] [address] City Superintendent: Sherwin Elam MD Type and screenon 12-23-2024 Abo/Rh(D) Positive [facility] Urinalysis macro (dipstick) panel (U)on 12-23-2024 Bilirubin, UA Negative Negative - 4(70) +++ mg/dL [facility] Blood, UA Negative Negative - 50 Warren/mcL [facility] Clarity, UA Clear [facility] Color, UA Yellow [facility] Glucose, UA Negative Negative - 2000(110) ++++ mg/dL [facility] Interpretation and review of laboratory results Normal [facility] Ketones, UA Negative Negative - 160(16) ++++ mg/dL [facility] Leukocytes, UA Negative Negative - 500+++ Malick/mcL [facility] Nitrite, UA Negative Negative - Positive [facility] pH, UA 7 5 - 9 [facility] Protein, UA Negative Negative - 2000(20) ++++ mg/dL [facility] Spec Grav, UA 1.02 1 - 1.03 [facility] Urobilinogen, UA 1.0 0.2 - 12 mg/dL [facility] Urine Drug Screenon 12-23-19 25 Amphetamines Ql (U) Negative NEGATIVE [facility] Comment on above: Cutoff: 1000 ng/mL Barbiturates Screen Ql (U) Negative NEGATIVE [facility] Comment on above: Cutoff: 200 ng/ml Benzodiazepines Ql (U) Negative NEGATIVE [facility] Comment on above: Cutoff: 200 ng/ml Cannabinoids Screen Ql (U) Negative NEGATIVE [facility] Comment on above: Cutoff: 50 ng/ml Cocaine Ql (U) Negative NEGATIVE [facility] Comment on above: Cutoff: 300 ng/ml fentaNYL Ql (U) Negative NEGATIVE [facility] Comment on above: Cutoff: 5 ng/ml Methadone Ql (U) Negative NEGATIVE [facility] Comment on above: Cutoff: 300 ng/ml Opiates Screen Ql (U) Negative [facility]GATIVE [facility] Comment on above: Cutoff: 300 ng/ml oxyCODONE Ql (U) Negative NEGATIVE [facility] Comment on above: Cutoff: 100 ng/ml Phencyclidine Ql (U) Negative NEGATIVE [facility] Comment on above: Cutoff: 25 ng/ml Test Information This method is a screening test to detect only these drug classes as part of a medical workup. Confirmatory testing by another method should be ordered if clinically indicated. [facility] ( test) Ql (U)o n 11-25-2024 Interpretation and review of laboratory results Abnormal [facility] Preg Test, Ur Positive Negative [facility] US OB TRANSVAGINALon 025 US OB TRANSVAGINAL [...] UA Negative Negative - 4(70) +++ mg/dL [facility] Blood, UA Negative Negative - 50 Warren/mcL [facility] Clarity, UA Clear [facility] Color, UA Yellow [facility] Glucose, UA Negative Negative - 2000(110) ++++ mg/dL [facility] Interpretation and review of laboratory results Normal [facility] Ketones, UA Negative Negative - 160(16) ++++ mg/dL [facility] Leukocytes, UA Negative Negative - 500+++ Malick/mcL [facility] Nitrite, UA Negative Negative - Positive [facility] pH, UA 6 5 - 9 [facility] Protein, UA Negative Negative - 2000(20) ++++ mg/dL [facility] Spec Grav, UA 1.02 1 - 1.03 [facility] Urobilinogen, UA 0.2 0.2 - 12 mg/dL [facility] HCG, Quanton 10-20-2024 HCG, Quant 812.4 mIU/mL High <5 [facility] Comment on above: Result Comment: Non-preg premeno <=5 Postmeno <=8 Male <=3 If HCG results do not concur with clinical observations, additional testing to confirm results is recommended. Performed By: #### R UBI, HBS, TREP, AHCV, HIVCMB, GLYHGB #### [facility] [address] [place] [address] City Superintendent: Jason Rodriguez MD #### KARRI, SIDNEY #### [facility] [address] [place] [address] City Superintendent: Sherwin Elam MD HCG, Quantitative, on 10-20-2024 HCG.beta subunit Qn 812.4 m[IU]/mL High NINF B on [facility] Comment on above: Non-preg premeno <=5 Postmeno <=8 Male <=3 If HCG results do not concur with clinical observations, additional testing to confirm results is recommended. Interpretation and review of laboratory results Abnormal Bon [facility] Bon [facility] HCG, Quanton 10-18-2024 HCG, Quant 293.1 mIU/mL High <5 [facility] Comment on above: Result Comment: Non-preg premeno <=5 Postmeno <=8 Male <=3 If HCG results do not concur with clinical observations, additional testing to confirm results is recommended. Performed By: #### R UBI, HBS, TREP, AHCV, HIVCMB, GLYHGB #### [employer] [address] [place] [address] City Superintendent: Jason Rodriguez MD #### CDP, SIDNEY #### [facility] [address] [place] [address] City Superintendent: Sherwin Elam MD HCG, Quantitative, on 10-18-2024 HCG.beta subunit Qn 293.1 m[IU]/mL High NINF B on [facility] Comment on above: Non-preg premeno <=5 Postmeno <=8 Male <=3 If HCG results do not concur with clinical observations, additional testing to confirm results is recommended. Interpretation and review of laboratory results Abnormal [facility] XR knee RT 4V*on 04-06-2024 XR knee RT 4V* [facility] [place] [address] [place] [address] XRay Report Signed Patient: Fannie Mckeon MR#: [id number] : 1995 Acct:[id number] Age/Sex: 28 / F ADM Date: 04/06/24 Loc: [id number] Room: Type: [facility] Attending Dr: Renita MONTOYA Copies to: [facility] [...] Justina Munson M.D.04/06/2024 12:42 PM Dictation Location: [place] [address] Transcribed By: [facility] 04/06/24 1242 Dictated By: Justina Munson MD 04/06/24 1240 Signed By: 04/06/24 1242 Normal [facility] Estradiolon 04-15-2022 Estradiol 257.1 pg/mL 27 - 314 pg/mL [facility] Comment on above: FEMALES: Normally menstruating Luteal phase 33-298 Follicular phase 27-156 Midcycle phase 48-314 Postmenopausal (untreated) 5-50 Fulvestrant treatment will show an increased estradiol concentration with this methodology. Alternate methodologies are available upon request. No Panel Informationon 04-15 [facility] [place] Progesteroneon 04-15-2022 Progesterone 39.8 ng/mL [facility] [place] Comment on above: FEMALE (healthy): Follicular phase 0.06-0.89 Ovulation phase 0.12-12.00 Luteal phase 1.83-23.90 Postmenopausal <0.13 HCG, Quantitative, on 02-08-2022 hCG Quant <1 <5 mIU/mL [facility] Comment on above: Non-preg premeno <=5 Postmeno <=8 Male <=3 If HCG results do not concur with clinical observations, additional testing to confirm results is recommended. Elevated results not associated with may be found in patients with other diseases such as tumors of the germ cells (testis, ovaries, etc.), bladder, pancreas, stomach, lungs, and liver. [facility] TSHon 02-08-2022 TSH Qn 1.05 m[IU]/L [facility] Estradiolon 01-14-2022 Estradiol 326 pg/mL High 27 - 314 pg/mL [facility] Comment on above: FEMALES: Normally menstruating Luteal phase 33-298 Follicular phase 27-156 Midcycle phase 48-314 Postmenopausal (untreated) 5-50 Fulvestrant treatment will show an increased estradiol concentration with this methodology. Alternate methodologies are available upon request. Interpretation and review of laboratory results Abnormal [facility] HCG, Quantitative, on 01-14-2022 hCG Quant <1 <5 IU/L [facility] Comment on above: Non-preg premeno <=5 Postmeno <=8 Male <=3 If HCG results do not concur with clinical observations, additional testing to confirm results is recommended. Elevated results not associated with may be found in patients with other diseases such as tumors of the germ cells (testis, ovaries, etc.), bladder, pancreas, stomach, lungs, and liver. [facility] No Panel Informationon 01-14 [facility] Progesteroneon 01-14-2022 Progesterone 47.49 ng/mL [facility] Comment on above: FEMALE (healthy): Follicular phase 0.06-0.89 Ovulation phase 0.12-12.00 Luteal phase 1.83-23.90 Postmenopausal <0.13 Estradiolon 01-08-2022 Estradiol 251 pg/mL 27 - 314 pg/mL [facility] Comment on above: FEMALES: Normally menstruating Luteal phase 33-298 Follicular phase 27-156 Midcycle phase 48-314 Postmenopausal (untreated) 5-50 Fulvestrant treatment will show an increased estradiol concentration with this methodology. Alternate methodologies are available upon request. No Panel Informationon 01-08 [facility] Progesterone[facility] 01-08-2022 Progesterone 50.58 ng/mL [facility] Comment on above: FEMALE (healthy): Follicular phase 0.06-0.89 Ovulation phase 0.12-12.00 Luteal phase 1.83-23.90 Postmenopausal <0.13 HCG, Quantitative, on 12-10-2021 hCG Quant <1 <5 IU/L [facility] Comment on above: Non-preg premeno <=5 Postmeno <=8 Male <=3 If HCG results do not concur with clinical observations, additional testing to confirm results is recommended. Elevated results not associated with may be found in patients with other diseases such as tumors of the germ cells (testis, ovaries, etc.), bladder, pancreas, stomach, lungs, and liver. [facility] Estradiolon 09-26-2021 Estradiol 434 pg/mL High 27 - 314 pg/mL [facility] Comment on above: FEMALES: Normally menstruating Luteal phase 33-298 Follicular phase 27-156 Midcycle phase 48-314 Postmenopausal (untreated) 5-50 Fulvestrant treatment will show an increased estradiol concentration with this methodology. Alternate methodologies are available upon request. Interpretation and review of laboratory results Abnormal [facility] HCG, Quantitative, on 09-26-2021 hCG Quant 652 High <5 IU/L [facility] Comment on above: Non-preg premeno <=5 Postmeno <=8 Male <=3 If HCG results do not concur with clinical observations, additional testing to confirm results is recommended. Elevated results not associated with may be found in patients with other diseases such as tumors of the germ cells (testis, ovaries, etc.), bladder, pancreas, stomach, lungs, and liver. Interpretation and review of laboratory results Abnormal [facility] No Panel Informationon 09-26 [facility] Progesteroneon 09-26-2021 Progesterone 45.63 ng/mL [facility] Comment on above: FEMALE (healthy): Follicular phase 0.06-0.89 Ovulation phase 0.12-12.00 Luteal phase 1.83-23.90 Postmenopausal <0.13 Estradiolon 09-17-2021 Estradiol 389 pg/mL High 27 - 314 pg/mL [facility] Comment on above: FEMALES: Normally menstruating Luteal phase 33-298 Follicular phase 27-156 Midcycle phase 48-314 Postmenopausal (untreated) 5-50 Fulvestrant treatment will show an increased estradiol concentration with this methodology. Alternate methodologies are available upon request. Interpretation and review of laboratory results Abnormal [facility] No Panel Informationon 09-17 [facility] Progesteroneon 09-17-2021 Progesterone 15.02 ng/mL [facility] Comment on above: FEMALE (healthy): Follicular phase 0.06-0.89 Ovulation phase 0.12-12.00 Luteal phase 1.83-23.90 Postmenopausal <0.13 TSH without ReflexOrdered By : Pedro Luis Dorantes on 06-25-2021 TSH Qn 1.08 m[IU]/L [employer] Phone: [employer] Phone: HCG, Quantitative, on 02-15-2021 hCG Quant <1 <5 IU/L [employer] Phone: Comment on above: Non-preg premeno <=5 [...] Estradiol 66 pg/mL 27 - 314 pg/mL [employer] Work Phone: Comment on above: FEMALES: Normally menstruating Luteal phase 33-298 Follicular phase 27-156 Midcycle phase 48-314 Postmenopausal (untreated) 5-50 Fulvestrant treatment will show an increased estradiol concentration with this methodology. Alternate methodologies are available upon request. Follicle Stimulating Hormone on 01-12-2021 FSH 5.3 U/L 1.7 - 21.5 U/L [employer] Work Phone: Comment on above: Reference Range: Male: 1.5-12.4 Ovulating Female: Follicular Phase 3.5-12.5 Ovulation Phase 4.7-21.5 Luteal Phase 1.7-7.7 Postmenopausal Female: 25.8-134.8 HIV Screenon 01-12-2021 HIV Ag/Ab NONREACTIVE NONREACTIVE [employer] Work Phone: Comment on above: No laboratory eviden ce of HIV infection. If acute HIV infection is suspected, consider testing for HIV-1 RNA. Hepatitis B Core Antibody, T otalon 01-12-2021 Hep B Core Total Ab NONREACTIVE NONREACTIVE [employer] Work Phone: Hepatitis B Surface Antigeno n 01-12-2021 Hepatitis B Surface Ag NONREACTIVE NONREACTIVE [employer] Work Phone: Hepatitis C Antibodyon 01-12 Hepatitis C Ab NONREACTIVE NONREACTIVE [employer] [facility] Work Phone: Comment on above: The hepatitis [...] LH 10.8 U/L 1.0 - 95.6 U/L [employer] Work Phone: Comment on above: Reference Range: Male: 1.7-8.6 Ovulating Female: Follicular Phase 2.4-12.6 Ovulation Phase 14.0-95.6 Luteal Phase 1.0-11.4 Postmenopausal Female: 7.7-58.5 Progesteroneon 01-12-2021 Progesterone 0.13 ng/mL [employer] Phone: Comment on above: FEMALE (healthy): Follicular phase 0.06-0.89 Ovulation phase 0.12-12.00 Luteal phase 1.83-23.90 Postmenopausal <0.13 Prolactinon 01-12-2021 Prolactin 7.58 ug/L 4.79 - 23.30 ug/L [employer] Phone: Comment on above: The presence of macr oprolactin may cause interference in female patients with various endocrinological diseases or during . Rubella antibody, IgGon 01-01 Rubella virus IgG Ql (S) 52.4 IU/mL [employer] Phone: Comment on above: REFERENCE RANGE: <5.0 NON-REACTIVE (non-immune) 5.0 TO 9.9 EQUIVOCAL >=10.0 REACTIVE (immune) HCG, Quantitative, on 01-11-2021 hCG Quant <1 <5 IU/L [employer] Phone: Comment on above: Non-preg premeno <=5 [...] without Reflexon 021 TSH Qn 1.08 m[IU]/L [employer] Phone: TYPE AND SCREENon 01-11-2021 ABO/Rh Positive [employer] Phone: Arm Band Number NOT REPORTED [employer] Work Phone: Expiration Date 01/14/2021,2359 [employer] Phone: Vital Signs Date Time Vital Sign Value Performing Clinician Facility 04-18-2025 10:40-0400 Body mass index (BMI) [Ratio] 43.16 kg/m2 Cain Mendoza DO Work Phone: [facility] 04-18-2025 10:40-0400 Body weight 107.05 kg Cain Mendoza DO Work Phone: [facility] 04-18-2025 10:40-0400 Diastolic blood pressure 72 mm[Hg] Cain Mendoza DO Work Phone: [facility] 04-18-2025 10:40-0400 Systolic blood pressure 120 mm[Hg] Cain Mendoza DO Work Phone: [facility] 04-18-2025 10:34-0400 Body height 157.5 cm Cain Mendoza DO Work Phone: [facility] 03-30-2025 09:26-0400 Body weight 103.87 kg Christy MCKOY Work Phone: [facility] 03-30-2025 09:26-0400 Diastolic blood pressure 80 mm[Hg] Christy MCKOY Work Phone: [facility] 03-30-2025 09:26-0400 Systolic blood pressure 122 mm[Hg] Christy MCKOY Work Phone: [facility] 03-03-2025 09:00-0400 Body weight 105.14 kg Cain Mendoza DO Work Phone: [facility] 03-03-2025 09:00-0400 Diastolic blood pressure 80 mm[Hg] Cain Mendoza DO Work Phone: [facility] 03-03-2025 09:00-0400 Systolic blood pressure 120 mm[Hg] Cain Mendoza DO Work Phone: [facility] 02-08-2025 09:34-0400 Body height 157.5 cm Jaida Chadwick MD Work Phone: [facility] 02-08-2025 09:34-0400 Body mass index (BMI) [Ratio] 42.24 kg/m2 Jaida Chadwick MD Work Phone: [facility] 02-08-2025 09:34-0400 Body weight 104.78 kg Jaida Chadwick MD Work Phone: [facility] 02-08-2025 09:34-0400 Diastolic blood pressure 80 mm[Hg] Jaida Chadwick MD Work Phone: [facility] 02-08-2025 09:34-0400 Heart rate 95 /min Jaida Chadwick MD Work Phone: [facility] 02-08-2025 09:34-0400 Systolic blood pressure 125 mm[Hg] Jaida Chadwick MD Work Phone: [facility] 01-26-2025 14:44-0400 Body height 157.5 cm Apollo Martinez [employer] Work Phone: [facility] 01-26-2025 14:44-0400 Body mass index (BMI) [Ratio] 41.88 kg/m2 Apollo Martinez [employer]ILY [employer] Work Phone: [facility] 01-26-2025 14:44-0400 Body weight 103.87 kg Apollo Martinez [employer]ILY [employer]BER [employer] Work Phone: [facility] 01-26-2025 14:44-0400 Diastolic blood pressure 60 mm[Hg] Apollo Martinez FAMILY [employer]BER [employer] Work Phone: [facility] 01-26-2025 14:44-0400 Heart rate 87 /min Apollo Martinez [employer]ILY [employer]BER [employer] Work Phone: [facility] 01-26-2025 14:44-0400 Systolic blood pressure 115 mm[Hg] Apollo Martinez FAMILY [employer]BER [employer] Work Phone: [facility] 01-26-2025 14:25-0400 Body mass index (BMI) [Ratio] 41.87 kg/m2 [facility] Ed [facility] 01-26-2025 14:25-0400 Body weight 103.87 kg [facility] 01-20-2025 08:42-0400 Body weight 103.87 kg Christy MCKOY Work Phone: [facility] 01-20-2025 08:42-0400 Diastolic blood pressure 70 mm[Hg] Christy MCKOY Work Phone: [facility] 01-20-2025 08:42-0400 Systolic blood pressure 120 mm[Hg] Christy MCKOY Work Phone: [facility] 12-30-2024 10:57-0500 Body height 157.5 cm Jaida Chadwick MD Work Phone: [facility] 11-25-2024 15:25-0500 Body weight 105.23 kg Noms Nurse [facility] 11-25-2024 15:25-0500 Diastolic blood pressure 72 mm[Hg] [facility] Nurse [facility] 11-25-2024 15:25-0500 Systolic blood pressure 124 mm[Hg] Nom Nurse [facility] 04-06-2024 12:06-0400 Body height 157.48 cm PHYSICIAN NO [facility] 04-06-2024 12:06-0400 Body mass index (BMI) [Ratio] 42 kg/m2 PHYSICIAN NO [facility] 04-06-2024 12:06-0400 Body weight 104.32 kg PHYSICIAN NO [facility] 04-06-2024 12:06-0400 Diastolic blood pressure 80 mm[Hg] PHYSICIAN NO [facility] 04-06-2024 12:06-0400 Heart rate 80 /min PHYSICIAN NO [facility] 04-06-2024 12:06-0400 Respiratory rate 20 /min PHYSICIAN NO [facility] 04-06-2024 12:06-0400 SaO2% (BldA) [Mass fraction] 99 % PHYSICIAN NO [facility] 04-06-2024 12:06-0400 Systolic blood pressure 124 mm[Hg] PHYSICIAN NO [facility] Encounters Encounter Date Encounter Type Care Provider Facility Start: 04-18-2025 End: 04-18-2025 Bamboo flowsheet Cain Donaldson DO Work Phone: [facility] Start: 04-18-2025 End: 04-18-2025 Bamboo flowsheet Cain Mendoza DO Work Phone: [facility] Start: 04-18-2025 End: 04-18-2025 flow sheet Cain Mendoza DO Work Phone: [facility] Comment on above: Third trimester preg selene ([facility]); 30 weeks gestation of ([facility]) Start: 04-17-2025 End: 04-18-2025 Clinisync Result Encounter Cain Mendoza DO Work Phone: [facility] Unsolicited Start: 04-17-2025 End: 04-18-2025 Clinisync Result Encounter Cain Mendoza DO Work Phone: [facility] Unsolicited Start: 04-14-2025 End: 04-14-2025 ambulatory [facility] Start: 04-12-2025 End: 04-12-2025 Telephone encounter Sonya Lomax RN [facility] Start: 04-11-2025 End: 04-11-2025 ambulatory Devika Pulido PA-C Work Phone: [facility] Comment on above: Insulin controlled g estational diabetes mellitus (GDM) in second trimester; Prediabetes in mother during Start: 04-11-2025 End: 04-11-2025 Clinisync Result Encounter Cain Mendoza DO Work Phone: [facility] Unsolicited Start: 04-11-2025 End: 04-11-2025 Clinisync Result Encounter Cain Mendoza DO Work Phone: [facility] Unsolicited Start: 04-11-2025 End: 04-11-2025 Orders Only Devika Pulido PA-C Work Phone: [facility] Start: 03-30-2025 End: 03-30-2025 Bamboo flowsheet Christy MCKOY Work Phone: [facility] Start: 03-30-2025 End: 03-30-2025 Bamboo flowsheet Christy MCKOY Work Phone: [facility] Start: 03-30-2025 End: 03-30-2025 Office outpatient visit 25 minutes Apollo Martinez FAMILY [employer]BER [employer] Work Phone: [facility] Comment on above: Insulin controlled g estational diabetes mellitus (GDM) in second trimester (Primary Dx); Recurrent major depressive disorder, in partial remission; Prediabetes in mother during Start: 03-30-2025 End: 03-30-2025 ambulatory APOLLO MICHELLE [facility] Start: 03-30-2025 End: 03-30-2025 flow sheet Christy MCKOY Work Phone: [facility] Comment on above: Second trimester pre gnancy; 27 weeks gestation of ; Gestational diabetes mellitus (GDM), antepartum, gestational diabetes method of control unspecified; Factor 5 Leiden mutation, heterozygous (CMS/HCC); Conceived by in vitro fertilization Start: 03-30-2025 End: 03-30-2025 ambulatory CHRISTY BURNETT Not Available Start: 03-22-2025 End: 03-22-2025 Telephone encounter Sonya Lomax RN [facility] Start: 03-16-2025 End: 03-16-2025 Telephone encounter Sonya Lomax RN [facility] Start: 03-16-2025 End: 03-16-2025 ambulatory CAIN Peterson MENDOZA [facility] Start: 03-11-2025 End: 03-11-2025 Telephone encounter Naomy Thompson RN Work Phone: [facility] Start: 03-07-2025 End: 03-07-2025 Orders Only Cole Wade MD Work Phone: [facility] Comment on above: Insulin controlled g estational [...] encounter Valerie Le RN [facility] Start: 02-28-2025 End: 02-28-2025 Orders Only Devika Pulido PA-C Work Phone: [facility] Comment on above: Insulin controlled g estational diabetes mellitus (GDM) in second trimester; Prediabetes in mother during Start: 02-24-2025 End: 02-24-2025 Office outpatient visit 25 minutes Apollo LAWRENCE Work Phone: [facility] Comment on above: Insulin controlled g estational diabetes mellitus (GDM) in second trimester (Primary Dx); Recurrent major depressive disorder, in partial remission; Bipolar 1 disorder ([facility]-HCC); Prediabetes in mother during Start: 02-24-2025 End: 02-24-2025 ambulatory APOLLO MICHELLE [facility] Start: 02-17-2025 End: 02-17-2025 Telephone encounter Christy Prado LPN [facility] Start: 02-15-2025 End: 02-15-2025 Telephone encounter Valerie Le RN [facility] Start: 02-08-2025 End: 02-08-2025 Office consultation new/estab patient 60 min Jaida Chadwick MD Work Phone: [facility] Comment on above: Insulin controlled g estational diabetes mellitus (GDM) in second trimester (Primary Dx); Prediabetes in mother during ; 20 weeks gestation of ; Choroid plexus cyst of fetus affecting care of mother, antepartum, single or unspecified fetus; Heterozygous factor V Leiden affecting in second trimester, antepartum; Severe obesity due to excess calories affecting , antepartum ([facility]-HCC); Bipolar disorder, in full remission, most recent episode depressed Start: 02-08-2025 End: 02-08-2025 Orders Only Christy Prado LPN [facility] Comment on above: Insulin controlled g estational diabetes mellitus (GDM) in second trimester (Primary Dx); Choroid plexus cyst of fetus affecting care of mother, antepartum, single or unspecified fetus; Heterozygous factor V Leiden affecting in second trimester, antepartum; Severe obesity due to excess calories affecting , antepartum ([facility]) Start: 02-03-2025 End: 02-03-2025 Telephone encounter Christy Prado LPN [facility] Start: 01-27-2025 End: 01-27-2025 Orders Only Apollo LAWRENCE Work Phone: [facility] Start: 01-26-2025 End: 01-26-2025 Office outpatient new 45 minutes Apollo LAWRENCE Work Phone: [facility] Comment on above: Insulin controlled g estational diabetes mellitus (GDM) in second trimester (Primary Dx) Start: 01-26-2025 End: 01-27-2025 Refill Apollo LAWRENCE Work Phone: [facility] Start: 01-26-2025 End: 01-26-[address] Work Phone: [facility] Comment on above: Insulin controlled g estational [...] abstracting Scanning Provider External [facility] Start: 12-30-2024 End: 12-30-2024 Chart abstracting Jaida Chadwick MD Work Phone: [facility] Start: 12-29-2024 End: 12-29-2024 Telephone encounter Claudine Hawthorne [facility] Start: 12-23-2024 End: 12-23-2024 ambulatory [facility] Start: 12-23-2024 End: 12-23-2024 Subsequent hospital visit by physician [facility] Start: 12-23-2024 End: 12-23-2024 Bamboo flowsheet Cain Donaldson DO Work Phone: [facility] Start: 12-23-2024 End: 12-24-2024 Bamboo flowsheet Cain Donaldson DO Work Phone: [facility] Start: 12-23-2024 End: 12-24-2024 Clinisync Result Encounter Cain Mendoza DO Work Phone: [facility] Unsolicited Start: 12-23-2024 End: 12-23-2024 flow sheet Cain Yateso DO Work Phone: [facility] Comment on above: Second trimester pre gnancy; 13 weeks gestation of ; Gestational diabetes mellitus (GDM), antepartum, gestational diabetes method of control unspecified; Elevated glucose tolerance test; resulting from in vitro fertilization, antepartum Start: 12-23-2024 End: 12-23-2024 ambulatory CAIN YATESO Not Available Start: 11-25-2024 End: 11-25-2024 ambulatory [facility] Mendoza Nurse [facility] Comment on above: GA: 9w6d Start: 10-20-2024 End: 10-20-2024 ambulatory [facility] Start: 10-20-2024 End: 10-20-2024 Subsequent hospital visit by physician [facility] Start: 10-18-2024 End: 10-18-2024 ambulatory [facility] PENA [facility] Start: 10-18-2024 End: 10-18-2024 Subsequent hospital visit by physician [facility] Start: 04-06-2024 End: 04-06-2024 ambulatory PHYSICIAN TWIN [facility] Work Phone: Start: 04-06-2024 End: 04-06-2024 Patient encounter procedure PHYSICIAN TWIN [facility] [place] Work Phone: Start: 04-15-2022 End: 04-15-2022 Subsequent hospital visit by physician [facility] Start: 02-08-2022 End: 02-08-2022 Subsequent hospital visit by physician [facility] Start: 01-14-2022 End: 01-14-2022 Subsequent hospital visit by physician [facility] Start: 01-07-2022 End: 01-07-2022 Subsequent hospital visit by physician [facility] Start: 12-10-2021 End: 12-10-2021 Subsequent hospital visit by physician [facility] Start: 09-26-2021 End: 09-26-2021 Subsequent hospital visit by physician [facility] Start: 09-17-2021 End: 09-17-2021 Subsequent hospital visit by physician [facility] Start: 06-25-2021 End: 06-25-2021 Subsequent hospital visit by physician [facility] Start: 02-15-2021 End: 02-15-2021 Subsequent hospital visit by physician [facility] Covid19 Pat Screening Schedule [facility] Comment on above: Arrived Start: 01-11-2021 End: 01-11-2021 Subsequent hospital visit by physician [facility] Procedures Date Procedure Procedure Detail Performing Clinician Start: 04-18-2025 Urnls dip stick/tabl et rgnt non-auto w/o micrscp Cain Mendoza DO Work Phone: Start: 04-17-2025 [facility] TOTAL PROTEIN 24 HOUR URINE Cain Mendoza DO Work Phone: Start: 04-11-2025 US OB BPP W NON-STRESS Cain Mendoza DO Work Phone: Start: 04-11-2025 ALL BUN Cain Fazi o DO Work Phone: Start: 04-11-2025 ALL CBC WITH AUTO DIFF Cain Mendoza DO Work Phone: Start: 04-11-2025 ALL LDH Cain Fazi o DO Work Phone: Start: 04-11-2025 ALL URIC ACID Cain Tere io DO Work Phone: Start: 04-11-2025 [facility] AST Cain Fazi o DO Work Phone: Start: 04-11-2025 [facility] CREATININE Cain Fa zio DO Work Phone: Start: 03-03-2025 Urnls dip stick/tabl et rgnt non-auto w/o micrscp Cain Mendoza DO Work Phone: Start: 01-20-2025 Urnls dip stick/tabl et rgnt non-auto w/o micrscp Christy Burnett PA Work Phone: Start: 03-20-2025 Microscopic observat ion [Identifier] in Cervix by Cyto stain Jaida Chadwick MD Work Phone: Start: 12-23-2024 End: 12-23-2024 Blood count complete auto&auto difrntl wbc Cain Donaldson MD Work Phone: Start: 12-23-2024 End: 12-23-2024 Drug tst prsmv instrmnt chem analyzers pr date Cain Donaldson MD Work Phone: Start: 12-23-2024 MHPT CBC WITH DIFF Core y Mendoza DO Work Phone: Start: 12-23-2024 [facility] DRUG [...] Pedro Luis Dorantes MD Work Phone: Start: 02-15-2021 Gonadotropin chorion ic quantitative Pedro Luis Dorantes Work Phone: Start: 01-11-2021 Antibody screen Start: 01-11-2021 Antibody hiv-1&hiv-2 single result Jeevannatacha Dorantes Work Phone: Start: 01-11-2021 Antibody rubella Jeevannatacha Dorantes Work Phone: Start: 01-11-2021 Assay of estradiol Summer rojas Cecilio Dorantes Work Phone: Start: 01-11-2021 Assay of progesterone F ayloren Cecilio Dorantes Work Phone: Start: 01-11-2021 Assay of prolactin Summer rojas Cecilio Jayna Work Phone: Start: 01-11-2021 Assay of thyroid stimulating hormone tsh Pedro Luis Dorantes Work Phone: Start: 01-11-2021 Blood typing serologic abo Summercrystal Dorantes Work Phone: Start: 01-11-2021 Gonadotropin chorion ic quantitative Pedro Luis Dorantes Work Phone: Start: 01-11-2021 Gonadotropin follicl e stimulating hormone Pedro Luis Dorantes Work Phone: Start: 01-11-2021 Gonadotropin luteini zing hormone Pedro Luis Dorantes Work Phone: Start: 01-11-2021 Hepatitis b core ant ibody hbcab total Pedro Luis Dorantes Work Phone: Start: 01-11-2021 Hepatitis c antibody Fa natacha Dorantes Work Phone: Start: 01-11-2021 Iaad ia hepatitis b surface antigen Pedro Luis Dorantes Work Phone: Start: 11-24-2020 Microscopic observat ion [Identifier] in Cervix by Cyto stain Jaida Chadwick MD Work Phone: Plan of Treatment Date Care Activity Detail Author Start: 05-16-2032 DTaP,Tdap and Td Vac cines (2 - Td or Tdap) DTaP,Tdap and Td Vaccines (2 - Td or Tdap) [facility] Start: 01-21-2028 Screening for malign ant neoplasm of cervix [facility] Start: 02-08-2026 Adult BMI Screening Adult BMI Screen ing [facility] Start: 02-08-2026 Tobacco Screening Tobacco Screening [facility] Start: 01-26-2026 Adult BMI Screening Adult BMI Screen ing [facility] Start: 01-26-2026 Tobacco Screening Tobacco Screening [facility] Start: 07-04-2025 Influenza vaccination Influenza Vacc ine [facility] Start: 06-03-2025 Influenza vaccination Flu vacc ine (Season Ended) [facility] Start: 05-03-2025 End: 05-03-2025 Patient encounter procedure 05/03/2025 8:50 AM EDT Routine [facility] [address] [place] [id number] Christy Burnett PA [address] [place] [address] [facility] Start: 04-25-2025 End: 04-25-2025 Telemedicine consultation with patient 04/25/2025 11:30 AM EDT Telemedicine [facility] [address] [place] [facility] [place] [address] Devika Pulido PA-C [address] [facility] [address] [place] [address] [facility] Start: 04-18-2025 End: 04-18-2025 Patient encounter procedure 04/18/2025 10:10 AM EDT Routine [facility] [address] [place] [id number] Cain Donaldson DO [address] [place] [address] [facility] Start: 04-14-2025 End: 04-14-2025 Patient encounter procedure 04/14/2025 8:00 AM EDT Appointment [facility] [address] [place] [phone] [facility] Start: 03-30-2025 End: 09-30-2025 US biophysical profile w non stress test US biophysical profile w non stress test Imaging Routine Gestational diabetes mellitus (GDM), antepartum, gestational diabetes method of control unspecified Factor 5 Leiden mutation, heterozygous (CMS/HCC) Conceived by in vitro fertilization Expected: 03/30/2025 (Approximate), Expires: 09/30/2025 [facility] Comment on above: Expected: 03/30/2025 (Approximate), Expires: 09/30/2025 Start: 03-30-2025 End: 07-31-2025 US for US OB follow up transabdominal approach Imaging Routine Gestational diabetes mellitus (GDM), antepartum, gestational diabetes method of control unspecified Factor 5 Leiden mutation, heterozygous (CMS/HCC) Conceived by in vitro fertilization Expected: 03/30/2025, Expires: 07/31/2025 [facility] Work Phone: Comment on above: Expected: 03/30/2025 , Expires: 07/31/2025 Start: 03-30-2025 End: 03-30-2025 Telemedicine consultation with patient 03/30/2025 1:30 PM EDT Telemedicine [facility] [address] [place] [phone] Apollo Martinez, FAMILY MEMBER [employer]INE [employer]CH[employer]IC [address] [place] [address] [facility] Start: 03-30-2025 End: 03-30-2025 Patient encounter procedure [facility] Comment on above: Arrived Start: 03-16-2025 End: 03-16-2025 Patient encounter procedure 03/16/2025 8:00 AM EDT Appointment [facility] [address] [place] [phone] [facility] Start: 03-03-2025 End: 03-03-2026 Alanine aminotransferase [Enzymatic activity/volume] in Serum or Plasma ALT Lab Routine 23 weeks gestation of induced hypertension, antepartum Expected: 03/03/2025 (Approximate), Expires: 03/03/2026 [facility] Comment on above: Expected: 03/03/2025 (Approximate), Expires: 03/03/2026 Start: 03-03-2025 End: 03-03-2026 Aspartate aminotransferase [Enzymatic activity/volume] in Serum or Plasma AST Lab Routine 23 weeks gestation of induced hypertension, antepartum Expected: 03/03/2025 (Approximate), Expires: 03/03/2026 [facility] Comment on above: Expected: 03/03/2025 (Approximate), Expires: 03/03/2026 Start: 03-03-2025 End: 03-03-2026 CBC W Auto Differential panel - Blood CBC and differential Lab Routine 23 weeks gestation of induced hypertension, antepartum Expected: 03/03/2025 (Approximate), Expires: 03/03/2026 [facility] Comment on above: Expected: 03/03/2025 (Approximate), Expires: 03/03/2026 Start: 03-03-2025 End: 03-03-2026 Creatinine [Mass/volume] in Serum or Plasma Creatinine Lab Routine 23 weeks gestation of induced hypertension, antepartum Expected: 03/03/2025 (Approximate), Expires: 03/03/2026 [facility] Work Phone: Comment on above: Expected: 03/03/2025 (Approximate), Expires: 03/03/2026 Start: 03-03-2025 End: 03-03-2026 Lactate dehydrogenase [Enzymatic activity/volume] in Serum or Plasma by Lactate to pyruvate reaction Lactate dehydrogenase Lab Routine 23 weeks gestation of induced hypertension, antepartum Expected: 03/03/2025, Expires: 03/03/2026 [facility] Comment on above: Expected: 03/03/2025 , Expires: 03/03/2026 Start: 03-03-2025 End: 03-03-2026 Protein, urine, 24 hour Protein, urine, 24 hour Lab Routine 23 weeks gestation of induced hypertension, antepartum Expected: 03/03/2025 (Approximate), Expires: 03/03/2026 [facility] Comment on above: Expected: 03/03/2025 (Approximate), Expires: 03/03/2026 Start: 03-03-2025 End: 03-03-2026 Pt and ptt Pt and ptt Lab Routine 23 weeks gestation of induced hypertension, antepartum Expected: 03/03/2025, Expires: 03/03/2026 [facility] Comment on above: Expected: 03/03/2025 , Expires: 03/03/2026 Start: 03-03-2025 End: 03-03-2026 Urate [Mass/volume] in Serum or Plasma Uric acid Lab Routine 23 weeks gestation of induced hypertension, antepartum Expected: 03/03/2025 (Approximate), Expires: 03/03/2026 [facility] Comment on above: Expected: 03/03/2025 (Approximate), Expires: 03/03/2026 Start: 03-03-2025 End: 03-03-2026 Urea nitrogen [Mass/volume] in Serum or Plasma BUN Lab Routine 23 weeks gestation of induced hypertension, antepartum Expected: 03/03/2025, Expires: 03/03/2026 [facility] Comment on above: Expected: 03/03/2025 , Expires: 03/03/2026 Start: 03-03-2025 End: 03-03-2025 Patient encounter procedure 03/03/2025 8:40 AM EDT Routine [facility] [address] [place] [address] Cain Donaldson DO [address] [place] [address] Arrived [facility] Comment on above: Arrived Start: 02-24-2025 End: 02-24-2025 Patient encounter procedure 02/24/2025 1:00 PM EDT Office Visit Maternal- Medicine at [facility] [address] [place] [address] Apollo Martinez, FAMILY MEMBER [employer] [address] [place] [address] Maternal- Medicine at [facility] Start: 02-08-2025 End: 02-08-2026 US MFM with or without consult US MFM with or without consult Imaging Routine Insulin controlled gestational diabetes mellitus (GDM) in second trimester Choroid plexus cyst of fetus affecting care of mother, antepartum, single or unspecified fetus Heterozygous factor V Leiden affecting in second trimester, antepartum Severe obesity due to excess calories affecting , antepartum ([facility] Expected: 02/08/2025, Expires: 02/08/2026 [facility] Work Phone: Comment on above: Expected: 02/08/2025 , Expires: 02/08/2026 Start: 02-08-2025 End: 02-08-2025 Patient encounter procedure [facility] - MFM US Imaging Start: 01-26-2025 End: 01-26-2025 Patient encounter procedure 01/26/2025 3:30 PM EDT Office Visit Maternal- Medicine at [facility] [address] [facility] [place] [address] Apollo Martinez, FAMILY MEMBER [employer]CH[employer] [address] [place] [facility] [place] [address] Maternal- Medicine at [facility] Start: 01-26-2025 End: 01-26-2025 ambulatory 01/26/2025 1:30 PM EDT Support Visit Maternal- Medicine at [facility] [address] [place] [id number] Kenzie Rhodes, RD [address] [facility] [address] [place] [address] Maternal- Medicine at [facility] Start: 01-20-2025 End: 02-20-2025 Alpha fetoprotein, maternal [...] gestational age Expected: 11/25/2024 (Approximate), Expires: 11/25/2025 [facility] Work Phone: Comment on above: Expected: 11/25/2024 (Approximate), Expires: 11/25/2025 Start: 11-25-2024 End: 11-25-2025 Drugs of abuse panel - Urine by Screen method Rapid drug screen, urine Lab Routine , unspecified gestational age Encounter for supervision of normal first in first trimester Expected: 11/25/2024 (Approximate), Expires: 11/25/2025 [facility] Comment on above: Expected: 11/25/2024 (Approximate), Expires: 11/25/2025 Start: 07-04-2024 COVID-19 Vaccine ( season) COVID-19 Vaccine ( season) [facility] Start: 07-04-2024 COVID-19 Vaccine ( season) COVID-19 Vaccine ( season) [facility] Start: 07-04-2024 Influenza vaccination Influenza Vacc ine [facility] Start: 06-03-2024 Influenza vaccination Flu vaccine (# 1) [facility] Start: 11-24-2023 Screening for malign ant neoplasm of cervix Pap Smear [facility] Start: 2023 Screening for malign ant neoplasm of cervix [facility] Start: 07-04-2022 Influenza vaccination Flu vacc ine (Season Ended) [facility] Start: 07-04-2021 Influenza vaccination [facility] Start: 07-04-2020 Influenza vaccination Flu vaccine (# 1) [facility] Work Phone: Start: 07-03-2015 DTaP,Tdap and Td Vac cines (2 - Tdap) DTaP,Tdap and Td Vaccines (2 - Tdap) [facility] Start: 2014 Screening for malign ant neoplasm of cervix [facility] Start: 2012 DTaP/Tdap/Td vaccine (1 - Tdap) DTaP/Tdap/Td vaccine (1 - Tdap) [facility] Start: 2012 Hepatitis B vaccine (1 of 3 - 19+ 3-dose series) Hepatitis B vaccine (1 of 3 - 19+ 3-dose series) [facility] Start: 2011 Adult BMI Follow Up Plan [facility] Start: 2011 Adult BMI Screening Adult BMI Screen ing [facility] Start: 2009 COVID-19 Vaccine (1) COVID-19 Vaccin e (1) [facility] Phone: Start: 2006 Varicella vaccine (1 of 2 - 13+ 2-dose series) Varicella vaccine (1 of 2 - 13+ 2-dose series) [facility] Start: 2005 COVID-19 Vaccine (1) COVID-19 Vaccin e (1) [facility] Start: 2005 Depression Screen [facility] Screen [facility] Start: 2005 Depression Screening Depression Scre ening [facility] Start: 2005 Tobacco Screening Tobacco Screening [facility] Start: 1998 COVID-19 Vaccine (1) COVID-19 Vaccin e (1) [facility] Start: 1994 Varicella vaccine (1 of 2 - 2-dose childhood series) Varicella vaccine (1 of 2 - 2-dose childhood series) [facility] End: 02-08-2025 Alpha Fetoprotein, [facility]aternal [facility] Phone: Comment on above: Once for 1 Occurrenc es starting 02/08/2025 until 02/08/2025 End: 01-11-2021 Anti Mullerian Hormone Anti Mullerian Hormone Lab Routine Once for 1 Occurrences starting 01/11/2021 until 01/11/2021 [facility] Phone: Comment on above: Once for 1 Occurrenc es starting 01/11/2021 until 01/11/2021 Anti Mullerian Hormone Anti Keeley erian Hormone Lab Routine 01/11/2021 1:58 PM EST [facility] Phone: Bacteria identified in Urine by Culture Urine culture Microbiology Routine Missed menses Ordered: 11/25/2024 [facility] Comment on above: Ordered: 11/25/2024 End: 01-11-2021 C.trachomatis N.gonorrhoeae DNA, Urine C.trachomatis N.gonorrhoeae DNA, Urine Microbiology Routine Once for 1 Occurrences starting 01/11/2021 until 01/11/2021 [facility] Phone: Comment on above: Once for 1 Occurrenc es starting 01/11/2021 until 01/11/2021 C.trachomatis N.gonorrhoeae DNA, Urine C.trachomatis N.gonorrhoeae DNA, Urine Microbiology Routine 01/11/2021 2:29 PM EST [facility] Phone: CBC W Auto Different ial panel - Blood CBC and differential Lab Routine Missed menses , unspecified gestational age Ordered: 11/25/2024 [facility] Comment on above: Ordered: 11/25/2024 CHLAMYDIA TRACHOMATI S (GENITO/STI) CHLAMYDIA TRACHOMATIS (GENITO/STI) Lab Routine Exposure to STD Ordered: 01/20/2025 [facility] Comment on above: Ordered: 01/20/2025 End: 02-15-2021 COVID-19 COVID-19 Lab Routine Once for 1 Occurrences starting 02/15/2021 until 02/15/2021 [facility] Phone: Comment on above: Once for 1 Occurrenc es starting 02/15/2021 until 02/15/2021 COVID-19 COVID-19 Lab Rou linda 02/15/2021 3:10 PM EDT [facility] Phone: End: 12-23-2024 Culture, Urine [facility] Comment on above: Once for 1 Occurrenc es starting 12/23/2024 until 12/23/2024 Cytology Cervical or vaginal smear or scraping study Pap Smear Pathology and Cytology Routine Well woman exam with routine gynecological exam Ordered: 01/20/2025 [facility] Comment on above: Ordered: 01/20/2025 End: 01-11-2021 Factor 5 Leiden Factor 5 Leiden Lab Routine Once for 1 Occurrences starting 01/11/2021 until 01/11/2021 [facility] Phone: Comment on above: Once for 1 Occurrenc es starting 01/11/2021 until 01/11/2021 Factor 5 Leiden Factor 5 Leiden Lab Routine 01/11/2021 1:58 PM [facility] Phone: End: 01-11-2021 HbA1c (Bld) [Mass fraction] Hemoglobin A1C Lab Routine Once for 1 Occurrences starting 01/11/2021 until 01/11/2021 [facility] Phone: Comment on above: Once for 1 Occurrenc es starting 01/11/2021 until 01/11/2021 HbA1c (Bld) [Mass fraction] Hemoglobin A1C Lab Routine 01/11/2021 1:58 PM [facility] Phone: Hemoglobin A1c/Hemoglobin.total in Blood Hemoglobin A1c Lab Routine Missed menses , unspecified gestational age Ordered: 11/25/2024 [facility] Comment on above: Ordered: 11/25/2024 End: 12-23-2024 Hemoglobin A1c/Hemoglobin.total in Blood [facility] Comment on above: Once for 1 Occurrenc es starting 12/23/2024 until 12/23/2024 End: 12-23-2024 Hepatitis B Surface Antigen [facility] Comment on above: Once for 1 Occurrenc es starting 12/23/2024 until 12/23/2024 Hepatitis B virus urbano rface Ag [Presence] in Serum or Plasma by Immunoassay Hepatitis B surface antigen Lab Routine Missed menses , unspecified gestational age Ordered: 11/25/2024 [facility] Comment on above: Ordered: 11/25/2024 End: 12-23-2024 Hepatitis C Antibody [facility] Work Phone: Comment on above: Once for 1 Occurrenc es starting 12/23/2024 until 12/23/2024 Hepatitis C virus Ab [Presence] in Serum or Plasma by Immunoassay Hepatitis C antibody Lab Routine Missed menses , unspecified gestational age Ordered: 11/25/2024 [facility] Comment on above: Ordered: 11/25/2024 End: 12-23-2024 HIV Screen [facility] Comment on above: Once for 1 Occurrenc es starting 12/23/2024 until 12/23/2024 HIV-1/HIV-2 antigen/antibody combination immunoassay HIV-1 and HIV-2 antibodies Lab Routine Missed menses , unspecified gestational age Ordered: 11/25/2024 [facility] Comment on above: Ordered: 11/25/2024 Human papilloma viru s DNA [Presence] in Unspecified specimen by Probe with amplification HPV DNA probe, amplified Microbiology Routine Well woman exam with routine gynecological exam Ordered: 01/20/2025 [facility] Comment on above: Ordered: 01/20/2025 Neisseria gonorrhoea e DNA [Presence] in Unspecified specimen by JOSELYN with probe detection Neisseria gonorrhea DNA probe, direct Lab Routine Exposure to STD Ordered: 01/20/2025 [facility] Comment on above: Ordered: 01/20/2025 End: 01-11-2021 Prothrombin Gene Mutation Prothrombin Gene Mutation Lab Routine Once for 1 Occurrences starting 01/11/2021 until 01/11/2021 [facility] Phone: Comment on above: Once for 1 Occurrenc es starting 01/11/2021 until 01/11/2021 Prothrombin Gene Mutation Prothr ombin Gene Mutation Lab Routine 01/11/2021 1:58 PM EST [facility] Phone: Reagin Ab [Presence] in Serum by RPR RPR Lab Routine Missed menses , unspecified gestational age Ordered: 11/25/2024 [facility] Comment on above: Ordered: 11/25/2024 Rubella antibody, IgG Rubella an tibody, IgG Lab Routine Missed menses , unspecified gestational age Ordered: 11/25/2024 [facility] Comment on above: Ordered: 11/25/2024 End: 12-23-2024 Rubella antibody, IgG [facility] Comment on above: Once for 1 Occurrenc es starting 12/23/2024 until 12/23/2024 SURESWAB(R) ADVANCED VAGINITIS PLUS, TMA SURESWAB(R) ADVANCED VAGINITIS PLUS, TMA Pathology and Cytology Routine Vaginal discharge Ordered: 01/20/2025 [facility] Comment on above: Ordered: 01/20/2025 End: 01-11-2021 T. pallidum Ab T. pallidum Ab Lab Routine Once for 1 Occurrences starting 01/11/2021 until 01/11/2021 [facility] Phone: Comment on above: Once for 1 Occurrenc es starting 01/11/2021 until 01/11/2021 T. pallidum Ab T. pallidum Ab L ab Routine 01/11/2021 1:58 PM [employer] Work Phone: End: 12-23-2024 T. pallidum Ab [facility] Comment on above: Once for 1 Occurrenc [...] due to excess calories affecting , antepartum ([facility]) Bipolar disorder, in full remission, most recent episode depressed 1 Occurrences starting 02/08/2025 until 02/08/2026 [facility] Work Phone: Comment on above: 1 Occurrences starti ng 02/08/2025 until 02/08/2026 End: 01-11-2021 Varicella Zoster Antibody, IgG Varicella Zoster Antibody, IgG Lab Routine Once for 1 Occurrences starting 01/11/2021 until 01/11/2021 [facility] Phone: Comment on above: Once for 1 Occurrenc es starting 01/11/2021 until 01/11/2021 Varicella Zoster Ant ibody, IgG Varicella Zoster Antibody, IgG Lab Routine 01/11/2021 1:58 PM [employer] Work Phone: End: 01-11-2021 Vitamin D 25 Hydroxy Vitamin D 25 Hydroxy Lab Routine Once for 1 Occurrences starting 01/11/2021 until 01/11/2021 [facility] Work Phone: Comment on above: Once for 1 Occurrenc es starting 01/11/2021 until 01/11/2021 Vitamin D 25 Hydroxy [facility] Work Phone: End: 06-25-2021 Vitamin D 25 Hydroxy Vitamin D 25 Hydroxy Lab Routine Once for 1 Occurrences starting 06/25/2021 until 06/25/2021 [facility] Work Phone: Comment on above: Once for 1 Occurrenc es starting 06/25/2021 until 06/25/2021 Immunizations Immunization Date Immunization Notes Care Provider Fa [facility] 08-03-2024 influenza virus vaccine, unspecified formulation Christy Prado LPN [id number] 09-08-2023 influenza virus vaccine, unspecified formulation Jaida Chadwick MD Work Phone: [id number] Payers Date Payer Category Payer [facility] [id number] 2024 Self-pay [address] [facility] Managed Care - Other [id number] 2014 Unknown [id number]. [id number] 1993 Unknown [id number] 2.16.840.1.034650.3.579. 2.174 1993 Unknown [id number] 2.16.840.1.791578.3.579. 2.174 1993 Unknown [id number] 2.16.840.1.289231.3.579. 2.174 1993 Unknown [id number] 2.16.840.1.256126.3.579. 2.174 1993 Unknown [id number] 2.16.840.1.376484.3.579. 2.9 1993 Unknown [id number] 2.16.840.1.543423.3.579. 2.1258 1993 Unknown [id number] 2.16.840.1.813148.3.579. 2.1258 1993 Unknown [id number] 2.16.840.1.271998.3.579. 2.1258 1993 Unknown [id number] 2.16.840.1.091276.3.579. 2.1258 1993 Unknown [id number] 2.16840.1.000406.3.579. 2.1258 1993 Unknown [id number] 2.16.840.1.695541.3.579. 2.1285 1993 Unknown [id number] 2.16.840.1.719102.3.579. 2.1285 1993 Unknown [id number] 2.16.840.1.413456.3.579. 2.1285 1993 Unknown [id number] 2.16840.1.592062.3.579. 2.1285 1993 Unknown [id number] 2.16.840.1.902567.3.579. 2.1285 1993 Unknown [id number] 2.16.840.1.807749.3.579. 2.1285 1993 Unknown [id number] 2.16.840.1.997431.3.579. 2.1285 1993 Unknown [id number] 2.16.840.1.640544.3.579. 2.128 Unknown [id number] 2.16.840.1.973181.3.579. 2.531 Social History Date Type Detail Facility Tobacco smoking stat [facility] Unknown if ever smoked [facility] Work Phone: Start: 1993 Sex Assigned At Not on file [facility] Work Phone: Tobacco smoking stat [facility] Tobacco smoking consumption unknown [facility] Start: 1993 Sex Assigned At Female F [facility] Start: 02-20-2013 End: 11-15-2020 [facility] of [facility] function [facility] Start: 02-20-2013 End: 11-15-2020 [facility] Start: 10-01-2024 [facility] Start: 11-24-2024 Gender identity Identifies as female gender (finding) [facility] Start: 06-06-2015 End: 12-29-2024 Sex Female (finding) [facility] Start: 11-24-2020 End: 02-08-2025 Tobacco smoking status NHIS Ex-smoker [facility] Start: 11-03-2020 End: 11-03-2010 History of tobacco use Current smoker [facility] Start: 11-03-2020 End: 11-03-2010 History of tobacco use Cigarette Smoker [facility] Start: 11-24-2020 End: 02-08-2025 Tobacco use and exposure Smokeless tobacco non-user [facility] Start: 12-30-2024 End: 02-08-2025 Alcoholic beverage intake Ex-drinker (finding) [facility] Childcare Unknown [facility] Medical Equipment Procedure Code Equipment Code Equipment Origin al Text Equipment Identifier Dates [id number] Start: 12-23-2024 End: 01-22-2025 1 each by In Vit ro route Daily Use to check FSBS four times daily [id number] Start: 12-23-2024 End: 01-22-2025 Use 2 syringes i n the morning for insulin dosage and 2 syringes in the Evening for insulin dosage. Total of 4 syringes daily needed. [id number] Start: 01-07-2025 Goals Date Patient Goal Desired Activity /State Personal health goal Clinical Notes 11-25-2024 to 04-18-2025 Colette Zamarripa MA - 04/18/2025 10:10 AM EDTTelephone Encounter - Sonya Lomax RN - 04/12/2025 4:16 PM EDTTelephone Encounter - Sonya Lomax RN - 04/12/2025 4:16 PM EDTPatient Instructions Note Date & Type Note Facility 04-18-2025 History of Present illness Narrative Reason for Appointment: Patient ID: Fannie White is a 29 y.o. female who presents for Routine Visit Patient presents today for Return OB appointment. MEDICATIONS Current Outpatient Medications Medication Instructions Alcohol Swabs (Alcohol Prep Pad) 70 % pads 1 Pad, Topical, Daily, Use four times daily to check FSBS. Blood Glucose Monitoring Suppl (Questetra Glucometer) w/Device kit 1 kit, Does not [...] Medical History: Diagnosis Date SAB (spontaneous ) ([facility]) 10/2021 HISTORY PAST MEDICAL HISTORY SOCIAL HISTORY Past Medical History: Diagnosis Date SAB (spontaneous ) ([facility]) 10/2021 Social History Tobacco Use Smoking status: [...] nursing note reviewed. Exam conducted with a imaging clerk present. Vitals: There is no height or weight on file to calculate BMI. BP: No LMP recorded. Patient is . ASSESSMENT & PLAN ICD-10-CM 1. Third trimester ([facility]) Z34.93 2. 30 weeks gestation of ([facility]) Z3A.30 Return OB: Patient presents today for [...] Cain Donaldson DO documented in this encounter [facility] 04-12-2025 Miscellaneous Notes Called pt to discuss her insulin change. Devika Pulido reviewed her blood sugars and would like her to increase her lantus in the evening to 25 units. Pt verbalized understanding and will start tonight. She will send in new blood sugars next week. [facility] Telephone encounter Note Called pt to discuss her insulin change. Devika Pulido reviewed her blood sugars and would like her to increase her lantus in the evening to 25 units. Pt verbalized understanding and will start tonight. She will send in new blood sugars next week. [facility] 04-11-2025 History of Present illness Narrative BG levels evaluated - insulin adjusted Devika Pulido PA-C 04/11/25 1234 documented in this encounter [facility] 03-30-2025 History of Present illness Narrative REASON FOR OFFICE VISIT: Video Visit via Real-time Synchronous Audiovisual Provider Location: [facility] AT [address] [id number] Patient Location: Patient's home Video Visit Consent [...] that there are some limitations compared to [id number] evaluations. The patient consented to the presence [...] tested before transfer HISTORY OF PRESENT ILLNESS: Fannie White is a pleasant 29 y.o. at 27w4d due on Estimated Date of Delivery: 06/25/25. Currently the patient has no complaints. The patient denies MATA, nausea, vomiting, abdominal pain, vaginal bleeding, contractions, leaking fluid or chest pain. +FM. She is being followed at [facility] due to GDMA2. States she is following [...] each meal., Disp: , Rfl: blood-glucose meter [facility], 4 (four) times a day. [...] route., Disp: , Rfl: lancets (LANCETS,ULTRA THIN) [facility], Use to check blood sugar 4 times daily. Fasting in the morning, and 1 hour after each meal., Disp: , Rfl: PNV no.153/FA/om3/dha/epa/fish ( [employer] ORAL), Take 2 tablets by mouth in the morning., Disp: , Rfl: LABS: Lab Results Component Value Date CREATININE 0.73 01/06/2016 Lab Results Component Value Date TSH 3.31 11/24/2020 No results found for: [id number] Lab Results Component Value Date CREATININE 0.73 [...] values to us weekly by e-mail to: [email or web address] or by fax to: [phone] TIME OF CONSULTATION: 15 minutes with the patient, >50% in discussion and counseling, coordination of care which was [id number], review of records and communication back to referring provider. HOWARD Whitman 03/30/25 1344 documented in this encounter [facility] 03-30-2025 History of Present illness Narrative Reason for Appointment: Patient ID: Fannie White is a 29 y.o. female who [...] appointment. Patient continues to follow closely with [facility] and has telehealth visit today to review glucose logs. She continues on Lantus and doing well. No complaints today. Given orders for NST/BPP and has scheduled growth ultrasound with [facility]. Will obtain Hgb / hematocrit and platelets today. Documented by Belgica Scherer NP on behalf of: Belgica Scherer NP documented in this encounter [facility] 03-22-2025 Miscellaneous Notes Called pt and left [...] sugars next week. [facility] Telephone encounter Note Called pt and [...] send in new blood sugars next week. [facility] 03-16-2025 Miscellaneous Notes Received BG results and all but 4 are in target range. No pattern noted. Called and left message of praise for all efforts and to call if questions. To send next week again. No changes. Continue your current insulin dose for this week. documented in this encounter [facility] 03-16-2025 Telephone encounter Note Received BG results and all but 4 are in target range. No pattern noted. Called and left message of praise for all efforts and to call if questions. To send next week again. No changes. Continue your current insulin dose for this week. [facility] 03-11-2025 Miscellaneous Notes Summary: MFM Blood Glucose Log & Insulin Dose Change Called and spoke with Merna who did receive message from early this week about BG log reviewed and increased Lantus evening dose to 19 Units daily. Apologized for not returning call noting life has been busy, hectic with foster placement. Denied any questions. documented in this encounter [facility] 03-11-2025 Telephone encounter Note Summary: MFM Blood Glucose Log & Insulin Dose Change Called and spoke with Merna who did receive message from early this week about BG log reviewed and increased Lantus evening dose to 19 Units daily. Apologized for not returning call noting life has been busy, hectic with foster placement. Denied any questions. [facility] Work Phone: 03-07-2025 Miscellaneous Notes Called pt [...] for this week. documented in this encounter [facility] 03-07-2025 Telephone encounter Note Called pt to discuss her insulin change for this week and received voicemail. Left her a message that Dr Wade reviewed her blood sugars and would like her to increase her lantus in the evening to 19 units. Asked her to please call back to verify she got this new insulin change for this week. [facility] 03-03-2025 History of Present illness Narrative Reason for Appointment: Patient ID: Fannie White is a 29 y.o. female who [...] urine order. Patient is currently also seeing [facility], which are also managing Gestational Diabetes. Patient voiced that insulin was just increased to 17 units at HS yesterday. Patient to return to clinic 4 weeks for routine OB. Documented by Bee Parkinson LPN on behalf of: Cain Donaldson DO documented in this encounter [facility] 03-01-2025 Miscellaneous Notes Called and notified patient that Pat MCKOY reviewed her blood sugar log and would like her to increase her Lantus to 17 units in the evening. Encouraged patient to write down what she is eating when having elevations greater than 140. Patient verbalized understanding. documented in this encounter [facility] 03-01-2025 Telephone encounter Note Called and notified patient that Pat MCKOY reviewed her blood sugar log and would like her to increase her Lantus to 17 units in the evening. Encouraged patient to write down what she is eating when having elevations greater than 140. Patient verbalized understanding. [facility] 02-24-2025 History of Present illness Narrative REASON FOR OFFICE VISIT: Video Visit via Real-time Synchronous Audiovisual Provider Location: [facility] AT [address] [id number] Patient Location: Patient's home Video Visit Consent [...] that there are some limitations compared to [id number]-[id number] evaluations. The patient consented to the presence [...] tested before transfer HISTORY OF PRESENT ILLNESS: Fannie White is a pleasant 29 y.o. at 22w5d due on Estimated Date of Delivery: 06/25/25. Currently the patient has no complaints. The patient denies MATA, nausea, vomiting, abdominal pain, vaginal bleeding, contractions, leaking fluid or chest pain. She is being followed at [facility] due to GDMA2. States she is following [...] each meal., Disp: , Rfl: blood-glucose meter [facility], 4 (four) times a day. [...] route., Disp: , Rfl: lancets (LANCETS,ULTRA THIN) [facility], Use to check blood sugar 4 times daily. Fasting in the morning, and 1 hour after each meal., Disp: , Rfl: PNV no.153/FA/om3/dha/epa/fish ( GUMMIES ORAL), Take 2 tablets by mouth in the morning., Disp: , Rfl: LABS: Lab Results Component Value Date CREATININE 0.73 01/06/2016 Lab Results Component Value Date TSH 3.31 11/24/2020 No results found for: [id number] Lab Results Component Value Date CREATININE 0.73 [...] can be done through close contact with MFM diabetic: via weekly glucose review either by [...] values to us weekly by e-mail to: [email or web address] or by fax to: [phone] TIME OF CONSULTATION: 25 minutes with the patient, >50% in discussion and counseling, coordination of care which was [id number], review of records and communication back to referring provider. HOWARD Whitman 02/24/25 1333 documented in this encounter [facility] 02-17-2025 Miscellaneous Notes Notified patient by phone of low risk CFDNA results. My direct phone number was given in case any questions arise. documented in this encounter [facility] 02-17-2025 Telephone encounter Note Notified patient by phone of low risk CFDNA results. My direct phone number was given in case any questions arise. [facility] 02-15-2025 Miscellaneous Notes Called and spoke with patient regarding blood sugar log. Noted 6 elevations after insulin change to Lantus last week- 3 fastings and 3 PP (1 was 140). Patient reports last 2 days fasting was 85 and 93. Continues to try dietary changes. Encouraged patient to send in another log next week. documented in this encounter [facility] 02-15-2025 Telephone encounter Note Called and spoke with patient regarding blood sugar log. Noted 6 elevations after insulin change to Lantus last week- 3 fastings and 3 PP (1 was 140). Patient reports last 2 days fasting was 85 and 93. Continues to try dietary changes. Encouraged patient to send in another log next week. [facility] 02-08-2025 History of Present illness Narrative Headache/epigastric [...] clinic Have you been seen here at [facility] in a previous ? No Recent ER visits or hospitalizations? No Bring blood sugar log or meter with you today? (Please bring them with you for every visit at [facility]) N/A Flu vaccine (Sep-January)? Any concerns that you would like me to mention to the provider today? Does not want to know gender REASON FOR CONSULTATION: GDM A2, IVF factor 5 heterozygote HISTORY OF PRESENT ILLNESS: Ashlynd Briana [place] is a pleasant 29 y.o. at 20w4d due on Estimated Date of Delivery: 06/24/25. complicated by: IVF with partner egg and donor sperm, dated by 5day embryo transfer on 10/07/2024, JANIYA 06/25/2025. BOTTOM CAGER , no genetic testing Prediabetes (A1c 5.9% [...] Medical History: Diagnosis Date Depression Gestational diabetes [place] product of in vitro fertilization (IVF) 2024 Suicide attempt ([facility]) SURGICAL HISTORY: Past Surgical History: Procedure Laterality [...] each meal., Disp: , Rfl: blood-glucose meter [facility], 4 (four) times a day. [...] route., Disp: , Rfl: lancets (LANCETS,ULTRA THIN) [facility], Use to check blood sugar [...] TESTS AND ULTRASOUND REPORTS: Referral records and epic chart were reviewed Pertinent Ultrasound findings are see formal ultrasound report. PHYSICAL EXAMINATION: BP 125/80 (BP Site: Right Arm, BP Postition: Sitting) Pulse 95 Ht 157.5 cm (5' 2.01 ) Wt 104.8 kg (231 lb) BMI 42.24 kg/m Well-appearing in no distress. Respirations not labored, speaking comfortably in full sentences Gravid abdomen OVERALL ASSESSMENT -Fannie White is a pleasant 29 y.o. at [...] overall, although a single choroid plexus cyst (BOTTOM CAGER) is visualized. We discussed this finding. CPCs [...] send in blood glucose logs weekly to MFM Recommend baseline HELLP labs including CBC, CMP, urine protein creatinine ratio, through primary OB Incomplete level 2 anatomy ultrasound echocardiogram, attempt completion in 4 weeks with MFM Recommend growth ultrasounds every 4 weeks following completion of level 2 anatomy ultrasound, through primary OB Recommend twice weekly testing starting at 32 weeks gestation, through primary OB Delivery recommendations : Recommend delivery at [id number] Discuss delivery if estimated weight is >4500g [...] developing diabetes later on. Monitor for depression [facility] office follow up already scheduled in 3 weeks DISPOSITION: At this point the patient is in complete care of her forestry consultant. Patient does have ultrasound and office visit scheduled with us. Thank you for allowing me to participate in the care of Fannie White. If there any questions please do not hesitate to contact us. Total time spent was 42 minutes: Preparing to see the patient (e.g., review of tests) Obtaining and/or reviewing separately obtained history Performing a medically appropriate examination and/or evaluation Counseling and educating the patient/family/caregiver Ordering medications, tests, or procedures Referring and communicating with other health healthcare or medical (not separately reported) Documenting clinical information in the electronic or other health record Jaida Chadwick MD Maternal- Medicine [facility] [address] [place] [address] [facility], the CDC, and other organizations representing maternal and public health professionals recommend that , , and lactating people and those considering receive the COVID-19 vaccination. Vaccination is the best method to reduce maternal and complications of SARS-CoV-2 infection. This document was created with [employer] technology. Though I make every effort to review the dictation as it is transcribed, on occasion the spoken word can be misinterpreted by the technology leading to inappropriate words, phrases, or sentences. This note is addressed to the requesting provider as a consultation for clinical guidance. Specific medical abbreviations are occasionally used and those are generally approved by the [place]?Board of?Obstetrics and?Gynecology?as well as?Shaji s abbreviations. The above plan of care was based solely on the diagnoses for which a consultation was requested. ?More frequent testing may be indicated based on her other medical/obstetrical conditions. The management of other or medical conditions is beyond the scope of requested consultation and will continue to be followed by the primary forestry consultant or primary care provider. Note to patient: [...] Patient tolerated well. documented in this encounter [facility] 02-03-2025 Miscellaneous Notes Received call from Nurse at Dr Donaldson's office who states they do not have any records of genetic testing. Afloat Cryptologic Manager places call to Dr Pena's office at [facility] to inquire if they have any records of genetic testing for this - they also do not have any record of genetic testing. documented in this encounter [facility] 02-03-2025 Telephone encounter Note Received call from Nurse at Dr Donaldson's office who states they do not have any records of genetic testing. Afloat Cryptologic Manager places call to Dr Pena's office at [facility] to inquire if they have any records of genetic testing for this - they also do not have any record of genetic testing. [facility] 02-03-2025 Miscellaneous Notes Left voicemail for BELA Gamboa at Dr Donaldson's office requesting genetic testing that was completed prior to IVF be faxed over to my attention. documented in this encounter [facility] 02-03-2025 Telephone encounter Note Left voicemail for BELA Gamboa at Dr Donaldson's office requesting genetic testing that was completed prior to IVF be faxed over to my attention. [facility] 01-26-2025 History of Present illness Narrative Headache/epigastric [...] YES Have you been seen here at [facility] in a previous ? NO Recent ER visits or hospitalizations? NO Bring blood sugar log or meter with you today? (Please bring them with you for every visit at [facility]) YES, SEE LOGS. Flu vaccine (Sep-January)? [...] tested before transfer HISTORY OF PRESENT ILLNESS: Fannie White is a pleasant 29 y.o. at 18w5d due on Estimated Date of Delivery: 06/24/25. Currently the patient has no complaints. The patient denies MATA, nausea, vomiting, abdominal pain, vaginal bleeding, contractions, leaking fluid or chest pain. +FM. She is being followed at [facility] due to GDMA2. States she [...] each meal., Disp: , Rfl: blood-glucose meter [facility], 4 (four) times a day. [...] route., Disp: , Rfl: lancets (LANCETS,ULTRA THIN) [facility], Use to check blood sugar [...] TSH 3.31 11/24/2020 No results found for: [id number] Lab Results Component Value Date CREATININE 0.73 [...] baby. 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 Current Exercise program walking Who prepares the meal pt Who purchase food at your home? pt Equipment use for cooking/food storage has all Food Assistance(Ex.WIC, Food [place]) knows about Dining out Yes 1-2 times per month Appetite/Appetite changes slightly increasing Weight History stable Do you have cats at home? Feeding Plans Breast Feeding If you have cats, who cleans the litter box? Cravings/Aversions/Pica none Nutrition Assessment Worksheet: Week/Weekend Food Recall Breakfast Oat milk Cereal Banana Snack Lunch Chicken Rice Beans cheese Snack Dinner Jamey Fried rice Chicken Snack Snack Time Fannie White presents for diet instruction per doctor [...] care for you: OB Provider Family Doctor Shoe Designer Name: Mendoza Name: No primary care provider [...] demonstration Is there anything about your culture, buddhist, or personal beliefs we need to know about to care for you: none Primary Language spoken: Kiswahili [22] Primary Language for learning: Kiswahili Are you currently in a relationship where you are physically hurt, threatened or made to fee afraid? [] Yes [x] No Software Engineer Sales needed? [] Yes [x] No Marital status/Living [...] If yes, where: On thge following scale, [place] the number, which describes your current level [...] Mondays. She had an appt with Apollo Michelle today, see her letter for details on her appt with Apollo and any medication changes and or lab work she may have ordered. Her blood sugars look really good since she started the insulin. only1-2 above target. Face to face time was 60min. . documented in this encounter [facility] 01-26-2025 Instructions Sonya Lomax RN - 01/26/2025 [...] HOURS WHILE AWAKE documented in this encounter [facility] 01-20-2025 History of Present illness Narrative Reason for Appointment: Patient ID: Fannie White is a 29 y.o. female who [...] nursing note reviewed. Exam conducted with a imaging clerk present. Vitals: There is no height or [...] of: LEELEE Keita documented in this encounter [facility] 12-29-2024 Miscellaneous Notes I left a message for pt to call to schedule her us/ and consult, I will call her again documented in this encounter [facility] 12-29-2024 Telephone encounter Note I left a message for pt to call to schedule her us/ and consult, I will call her again [facility] 12-23-2024 History of Present illness Narrative Reason for Appointment: Patient ID: Fannie White is a 29 y.o. female who [...] nursing note reviewed. Exam conducted with a imaging clerk present. Vitals: There is no height or [...] weeks gestation. Patient will be referred to M and can discuss medication at that time [...] Cain Donaldson DO documented in this encounter [facility] 11-25-2024 History of Present illness Narrative Reason for Appointment: Patient ID: Fannie White is a 29 y.o. female who [...] and concerns were answered. Pt declined the [employer] gender/genetics form. Pt did state she is [...] Colette Zamarripa MA documented in this encounter [facility] Evaluation note No assessment inform ation available [facility] Work Phone: Evaluation note Diagnosis Missed menses 9 weeks gestation of , unspecified gestational age Encounter for supervision of normal first in first trimester documented in this encounter [facility] HealthcareEvaluation note* Diagnosis Second trimester state, incidental 13 weeks gestation of Gestational diabetes mellitus (GDM), antepartum, gestational diabetes method of control unspecified Elevated glucose tolerance test Impaired glucose tolerance test resulting from in vitro fertilization, antepartum [facility]* Diagnosis Well woman exam with routine gynecological exam Routine gynecological examination 17 weeks gestation of Second trimester state, incidental Exposure to STD Vaginal discharge Leukorrhea, not specified as infective documented [facility] encounter [facility]* Diagnosis Insulin controlled gestational diabetes mellitus (GDM) in second trimester- Primary [facility]* Diagnosis Insulin controlled gestational diabetes mellitus (GDM) in second trimester documented [facility]* Diagnosis Insulin controlled gestational [...] recent episode depressed [facility]* Diagnosis Insulin controlled gestational diabetes mellitus (GDM) in second trimester- Primary Choroid plexus cyst of fetus affecting care of mother, antepartum, single or unspecified fetus Heterozygous factor V Leiden affecting in second trimester, antepartum Severe obesity due to excess calories affecting , antepartum (CMS-HCC) [facility]* Diagnosis Insulin controlled gestational diabetes mellitus (GDM) in second trimester- Primary Recurrent major depressive disorder, in partial remission Bipolar 1 disorder (CMS-HCC) Prediabetes in mother during documented [facility]* Diagnosis Insulin controlled gestational diabetes mellitus (GDM) in second trimester Prediabetes in mother during [facility]* Diagnosis 23 weeks gestation of Second trimester state, incidental induced hypertension, antepartum Transient hypertension of , antepartum Insulin controlled gestational diabetes mellitus (GDM) during , antepartum documented in this encounter [facility] HealthcareEvaluation note* Diagnosis Second trimester state, incidental 27 weeks gestation of Gestational diabetes mellitus (GDM), antepartum, gestational diabetes method of control unspecified Factor 5 Leiden mutation, heterozygous (CMS/HCC) Conceived by in vitro fertilization documented in this encounter [facility] HealthcareEvaluation note* Diagnosis Insulin controlled gestational diabetes mellitus (GDM) in second trimester- Primary Recurrent major depressive disorder, in partial remission Prediabetes in mother during documented [facility] encounter [facility]* Diagnosis Insulin controlled gestational diabetes mellitus (GDM) in second trimester Prediabetes in mother during documented [facility] encounter [facility]* Diagnosis Third trimester (HHS-HCC) state, incidental 30 weeks gestation of (HHS-HCC) documented in this encounter [facility] HealthcareInstructionsNot on filedocumented in this encounter[facility] SystemInstructionsNot on filedocumented in this encounterGood [facility] SystemInstructionsNot on filedocumented in this encounterGood [facility]itan [facility] SystemInstructionsNot on filedocumented in this encounterGood [facility]aritan [facility] InstructionsNot on filedocumented in this encounterGood [facility]aritan [facility] InstructionsNot on filedocumented in this encounterGood [facility]aritan [facility] InstructionsNot on filedocumented in this encounterGood [facility]aritan [facility] System InstructionsNot on filedocumented in this encounterGood [facility]aritan [facility] System InstructionsNot on filedocumented in this encounterGood [facility]aritan [facility] InstructionsNot on filedocumented in this encounterGood [facility]aritan [facility] InstructionsNot on filedocumented in this encounterGood [facility]aritan [facility] InstructionsNot on filedocumented in this encounterGood Samaritan Hospital System Chief Complaint and Reason for Visit Chief Complaint right knee injury Advance Directives Advance Directive Response Recorded Date/ Time Advance [...] and content) DATE CREATED AUTHOR 04/18/2024 [facility] DATE CREATED AUTHOR AUTHOR'S ORGANIZ ATION 03/11/2025 [facility] DATE CREATED AUTHOR AUTHOR'S ORGANIZ ATION 04/02/2025 [facility] EPIC DATE CREATED AUTHOR AUTHOR'S ORGANIZ ATION 04/02/2025 [facility] DATE CREATED AUTHOR AUTHOR'S ORGANIZ ATION 04/16/[address] [facility] Reason for Visit (unrecogniz ed section and content) Reason Comments Amenorrhea Reason Comments Routine Visit Reason Comments Gestational Diabetes Specialty Diagnoses / Procedures Referred By Otis t Referred To Contact Maternal and Medicine Diagnoses Insulin controlled gestational diabetes mellitus (GDM) in second trimester Cain Donaldson DO Phone: tel: fax: Maternal- Medicine at [facility] [address] [place] [address] Phone: tel: fax: Referral ID Status Reason Start Date Expiration Date Visits Requested Visits Authorized [id number] Pending Review Specialty Services Required 01/11/2025 01/11/2026 [...] BE BASED ON THE PRIMARY CLINICAL RECORDS. [facility]. provides no warranty or guarantee of the accuracy or completeness of information in this document.
[2025-04-18 21:20] VITALS: BP 130/71; PULSE 78
[2025-04-18 21:57] LABS: Bilirubin Urine NEGATIVE (NEGATIVE); Blood Urine MODERATE (NEGATIVE); Clarity Urine CLEAR (CLEAR); Color Urine LT. YELLOW (YELLOW); Glucose Urine UA NEGATIVE (NEGATIVE); Ketones Urine NEGATIVE (NEGATIVE); Leukocyte Esterase Urine SMALL (NEGATIVE); Nitrite Urine NEGATIVE (NEGATIVE); Protein Urine NEGATIVE (NEG/TRACE); Urobilinogen Urine 0.2 EU/dL (0.2-1.0)
[2025-04-18 22:02] LABS: Urine Microscopic Indicated YES
[2025-04-18 22:08] LABS: Bacteria Urine MODERATE #/HPF (NONE SEEN); Calcium Oxalate Crystals Urine FEW; Crystals Seen? Seen #/HPF (None Seen); Mucus Urine NONE SEEN (NONE SEEN); Squamous Epithelial Cell Urine FEW #/LPF (NONE/RARE)
[2025-04-18 22:09] LABS: Amorphous Sediment Urine MODERATE; Cast Seen? NONE SEEN #/LPF (NONE SEEN); Urine Culture Indicated YES-LC
[2025-04-18 22:50] LABS: Creatinine Urine Random 84.16 mg/dL (20.00-300.00)
[2025-04-18 23:55] LABS: Basophils Percent Auto 0.1 % (0.2-2.0); Eosinophils Absolute Auto 0.1 10^3/uL (0.0-0.7); Eosinophils Percent Auto 1.4 % (0.9-7.0); Hematocrit 31.1 % (36.0-48.0); Hemoglobin 10.8 g/dL (12.0-16.0); Immature Granulocytes Abs Auto 0.08 10^3/uL (0.00-0.03); Lymphocytes Absolute Auto 1.3 10^3/uL (1.2-3.8); Lymphocytes Percent Auto 15.7 % (20.5-60.0); Mean Corpuscular HGB Conc 34.7 g/dL (29.9-35.2); Mean Corpuscular Hemoglobin 29.9 pg (26.7-34.0); Mean Corpuscular Volume 86.1 fL (81.0-99.0); Mean Platelet Volume 10.4 fL (9.5-13.5); Monocytes Absolute Auto 0.7 10^3/uL (0.3-0.8); Monocytes Percent Auto 8.7 % (1.7-12.0); Neutrophils Absolute Auto 5.9 10^3/uL (1.4-6.5); Neutrophils Percent Auto 73.1 % (43.0-75.0); Platelet Count 178 10^3/uL (150-450); Red Blood Count 3.61 10^6/uL (4.20-5.40); Red Cell Distribution Width 13.3 % (11.0-15.0)
[2025-04-18] MEDS: 0.9 % SODIUM CHLORIDE 1,000 ML 999 ML IV (23:59)
[2025-04-19] MEDS: INSULIN GLARGINE 300 UNIT/3 ML INSULN.PEN 25 UNIT SQ (00:11)
[2025-04-19 00:13] LABS: Glucose 108 mg/dL (74-106)
[2025-04-19] MEDS: CEFAZOLIN SODIUM/DEXTROSE,ISO 2 GM/50 ML PIGGYBACK IV (00:15)
[2025-04-19 00:54] LABS: Estimated GFR (African America >60 (>=60 mL/min/1.73m^2); Estimated GFR (Non-African Ame >60 (>=60 mL/min/1.73m^2)
[2025-04-19 00:57] VITALS: BP 122/59; PULSE 73
[2025-04-19] MEDS: 0.9 % SODIUM CHLORIDE 1,000 ML 150 ML IV (03:55)
[2025-04-19 04:05] VITALS: BP 135/64; PULSE 77
--- NOTE | 2025-04-19 08:00 | US_ITS ---
The [place] [id number] Patient Name: FANNIE WHITE MRN: [id number] date: 1995 Sex: F Assigned Patient Location: LAB Current Patient Location: Accession/Order Number: [id number] Exam Date: 04/19/2025 09:00 Report Date: 04/19/2025 09:04 At the request of: ALFREDO PROCTOR DO Procedure: US OB BPP w non-stress BIOPHYSICAL PROFILE: CLINICAL INFORMATION: . Right flank pain and microscopic hematuria. COMPARISON: 04/11/2025 There is a single live intrauterine gestation in cephalic presentation. The reported gestational age is 30 weeks 4 days. The heart rate measures 127 beats per minute. FINDINGS: TONE: 1 or more episodes of activity extension and flexion of extremity or opening and closing of the hand [Y] 2/2 GROSS BODY MOVEMENTS: 3 or more discrete body or limb movements [Y] 2/2 BREATHING MOVEMENTS: 1 or more episodes of breathing lasting at least 30 seconds [Y] 2/2 ZITA: A single deepest vertical pocket of amniotic fluid greater than 2 cm [Y] 2/2 ZITA: 14.2 cm. This is normal. Total score: 8/8 US/US OB BPP w non-stress IMPRESSION: NORMAL BIOPHYSICAL PROFILE. Impression dictated by: Justina Munson M.D. 04/19/2025 9:04 AM Dictation Location: [place] [address] Electronically authenticated by: [id number] Y Date: 04/19/2025 09:04
--- NOTE | 2025-04-19 08:00 | US_ITS ---
The [address] [address] Patient Name: FANNIE WHITE MRN: [id number] date: 1995 Sex: F Assigned Patient Location: LAB Current Patient Location: Accession/Order Number: [id number] Exam Date: 04/19/2025 08:46 Report Date: 04/19/2025 08:49 At the request of: ALFREDO PROCTOR DO Procedure: US renal BI BILATERAL RENAL AND BLADDER ULTRASOUND CLINICAL HISTORY: patient with right flank pain and microscopic hematuria. COMPARISON: None Estimation of renal size is approximately 10.2 cm on the right and 13.3 cm on the left. There is an almost 1 cm echogenic focus at the inferior pole of the right kidney where a stone is suspected. There are also suspected stones on the left measuring up to 6 mm. No hydronephrosis is visualized on the left however there is minor pelviectasis on the right. No renal mass lesions were imaged. There is no perinephric fluid. The urinary bladder is partially distended with a volume of 780 ml. No contour or intraluminal abnormalities are seen. A gravid uterus is seen. US/US renal BI IMPRESSION: BILATERAL NEPHROLITHIASIS. MINOR RIGHT PELVIECTASIS. Impression dictated by: Justina Munson M.D. 04/19/2025 8:49 AM Dictation Location: [place] [address] Electronically authenticated by: [id number] Y Date: 04/19/2025 08:49
[2025-04-19 09:00] VITALS: TEMP 37.1
[2025-04-19] MEDS: CEFAZOLIN SODIUM/DEXTROSE,ISO 1 GM/50 ML PREMIX IV (09:07)
[2025-04-19 09:12] VITALS: BP 139/75; PULSE 86
--- NOTE | 2025-04-19 09:41 | PC.NURSE ---
US completed, showed 3 stones of various sizes, pt up to void states pain level is a 2 after voiding, 5 prior, no increase in pain to flank areas with palpation, Dr Donaldson calls in and report given and talks with pt regarding plan of care, FBS 90 and orders breakfast
== END 2025-04-19 10:50 | disposition home or self-care (01) ==
PROVIDERS: Admitting Provider Obstetrics & Gynecology; PCP Obstetrics & Gynecology; Visit Provider Obstetrics & Gynecology
DX: O99.891 Other specified diseases and conditions complicating pregnancy (principal); N20.0 Calculus of kidney; M54.9 Dorsalgia, unspecified; Z3A.30 30 weeks gestation of pregnancy
CPT/HCPCS: 36415; 59025; 76775; 76818; 81001; 82565; 82570; 82947; 84520; 85025; 87086; 96365; 96376; G0378; G0379; J0690

== ENCOUNTER 2025-04-26 17:13 | Outpatient (OUT) | payer BC, SELFPAY ==
--- OUTSIDE RECORDS SUMMARY | 2025-01-21 11:10 | XMS_ITS | Continuity of Care Document ---
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 [address] [place] [address], [id number] , [place]. tel: [phone] [facility], [address] [place] [address], [id number] , [place] tel: [phone] [facility] Encounter for screening for respiratory tuberculosis 5 Visci DO Miguel. [address] [place] [address], [id number] , [place]. tel:[phone] [facility], [address] [place] [address], [id number] , [place] tel: [phone] [facility] No Information 4 Visci DO Miguel. [address] [place] [address], [id number] , [place]. tel: [phone] [facility], [address] [place] [address], [id number] , [place] tel:+ [phone] [facility] Lab Draw (chief complaint) Other specified disorders of pancreatic internal secretionSubclinical iodine-deficiency hypothyroidismEncount er for screening for other viral diseasesEncounter for screening for other infectious disease 4 Cynthia White. [address] [place], [place], 646986199 , [place]. tel: [phone] [facility], [address] [place], [place], 222891654 , [place] tel: [phone] [facility] lab draw (chief complaint) Encounter for screening for other viral diseases 4 Cynthia White. [address] [place], [place], 640678654 , [place]. tel: [phone] [facility], [address] [place], [place], 424117491 , [place] tel: [phone] [facility] No Information 4 Cynthia White. [address] [place], [place], 945628090 , [place]. tel: [phone] [facility], [address] [place], [place], 885148618 , [place] tel: [phone] [facility] Encounter for screening for respiratory tuberculosis 4 Cynthia White. [address] [place], [place], 730331413 , [place]. tel: [phone] [facility], [address] [place], [place], 027506904 , [place] tel: [phone] [facility] Lab draw (chief complaint) Blood test prior to procedure 4 Cynthia White. [address] [place], [place], 406049433 , [place]. tel: [phone] Referring Provider: Tenisha Leon AL. [facility], [address] [place], [place], 321122511 , [place] tel: [phone] [facility] No Information 3 Cynthia White. [address] [place], [place], 468720081 , [place]. tel: [phone] [facility], [address] [place], 763483137 , [place] tel: [phone] [facility] COVID Test (chief complaint) Encounter for screening for COVID-19 3 Cynthia White. [address] [place], [place], 105482125 , [place]. tel: [phone] [facility], [address] [place], [place], 843531464 , [place] tel: [phone] [facility] Lab Draw (chief complaint) Encounter for antibody response examination 3 Cynthia White. [address] [place], [place], 637621945 , [place]. tel: [phone] [facility], [address] [place] [address], [id number] , [place] tel: [phone] [facility] lab (chief complaint) Other specified disorders of pancreatic internal secretion 3 Cynthia White. [address] [place], [place], 776701895 , [place]. tel: [phone] [facility], [address] [place] [address], [id number] , [place] tel: [phone] [facility] Lab draw (chief complaint) Blood test prior to procedure 3 Cynthia White. [address] [place], [place], 451719208 , [place]. tel: [phone] [facility], [address] [place] [address], [id number] , [place] tel: [phone] [facility] lab draw (chief complaint) Endocrine disorder 3 Cynthia White. [address] [place], [place], 301612198 , [place]. tel: [phone] [facility], [address] [place] [address], [id number] , [place] tel: [phone] [facility] Encounter for screening for COVID-19 3 Visci DO Miguel. [address] [place], [place], 101580797 , [place]. tel: [phone] [facility], [address] [place], [place], 909256734 , [place] tel: [phone] [facility] Lab draw (chief complaint) Blood test prior to procedureEncounter for screening for COVID-19 3 Visci DO Miguel. [address] [place], [place], 204518540 , [place]. tel: [phone] [facility], [address] [place], [place], 297192810 , [place] tel: [phone] [facility] No Information 3 Visci DO Miguel. [address] [place], [place], 323473726 , [place]. tel: [phone] [facility], [address] [place], [place], 334911737 , [place] tel: [phone] [facility] No Information 3 Visci DO Miguel. [address] [place], [place], 132323119 , [place]. tel: [phone] [facility], [address] [place], [place], 560335077 , [place] tel: [phone] [facility] No Information 2 Visci DO Miguel. [address] [place], [place], 608910788 , [place]. tel: [phone] [facility], [address] [place], [place], 904888838 , [place] tel: [phone] [facility] No Information 2 Visci DO Miguel. [address] [place], [place], 910365283 , [place]. tel: [phone] [facility], [address] [place], [place], 797507078 , [place] tel: [phone] [facility] No Information 2 Visci DO Miguel. [address] [place], [place], 611529202 , [place]. tel: [phone] [facility], [address] [place], [place], 793134465 , [place] tel: [phone] [facility] Encounter for screening for respiratory tuberculosis 2 Visci DO Miguel. [address] [place], [place], 716822087 , [place]. tel: [phone] [facility], [address] [place], [place], 156267591 , [place] tel: [phone] [facility] Encounter for screening for respiratory tuberculosis 2 Visci DO Miguel. [address] [place], [place], 274883625 , [place]. tel: [phone] [facility], [address] [place], [place], 749379181 , [place] tel: [phone] [facility] Encounter for screening for respiratory tuberculosis 2 Visci DO Miguel. [address] [place], [place], 438352446 , [place]. tel: [phone] [facility], [address] [place], [place], 755300425 , [place] tel: [phone] [facility] No Information 1 Visci DO Miguel. [address] [place], [place], 958875029 , [place]. tel: [phone] [facility], [address] [place], [place], 461449934 , [place] tel: [phone] [facility] No Information 1 Visci DO Miguel. [address] [place], [place], 453439687 , [place]. tel: [phone] [facility], [address] [place], 466788887 , [place] tel: [phone] [facility] No Information 1 Visci DO Miguel. [address] [place], [place], 571726525 , [place]. tel:[phone] Family History Family Member Type Diagnosis Age [...] Insurance type Covered democrat ID Authoriza tion(s) [employer] [id number] [employer] [id number] [employer] [id number] [employer] BL [id number] [employer] BL [id number] [employer] BL [id number] [employer] BL [id number] Social History Type Description Quantity Date Captured [...] du e Goal Influenza vaccine. Due on In due Goal Unhealthy drug use screening . [...] du e Goal Influenza vaccine. Due on In due Goal PAP. Due on due Goal Influenza vaccine. Due on In r due Goal Depression screening. Due on due Goal Tdap due Goal PRAPARE ASSESSMENT. Due on due Goal Hep A. Due on du e Goal RLP. Due on due Goal Tdap Vaccine. Due on 2031 due Goal Hep A. Due on du e Goal Tdap Vaccine. Due on 2031 due Goal Influenza vaccine. Due on In due Goal Tdap due Goal PRAPARE ASSESSMENT. Due on due Goal PAP. Due on due Goal RLP. Due on due Goal Depression screening. Due on due Goal Hep A. Due on du e Goal PAP. Due on due Goal Tdap due Goal Depression screening. Due on due Goal Influenza vaccine. Due on Ar due Goal RLP. Due on due Goal [...]
--- OUTSIDE RECORDS SUMMARY | 2025-04-18 10:10 | XMS_ITS | Encounter Summary ---
Author Organization [facility] Address [address] [place] [address] Care Team Providers Care Technical Proposal Writer Name Role Phone Unavailable Primary Care Provider Unavailabl e Reason for Visit * Reason Comments Routine Visit Encounter Details Date Type Department Care Team (Late st Contact Info) Description 04/18/2025 10:10 AM EDT Routine [facility] OB [address] [facility] [place] [phone] Cain Donaldson, DO [address] [facility] [place] [address] Third trimester ([facility]); 30 weeks gestation of ([facility]) Social History Tobacco Use Types Packs/Day Years [...] Sign Reading Time Taken Comments Blood Pressure 120/72 04/18/2025 10:40 AM EDT Pulse - - Temperature - - Respiratory Rate - - Oxygen Saturation - - Inhaled Oxygen Concentration - - Weight 107 kg (236 lb) 04/18/2025 10:40 AM EDT Height 157.5 cm (5' 2 ) 04/18/2025 10:34 AM EDT Body Mass Index 43.16 04/18/2025 10:34 AM EDT documented in this encounter Progress Notes * Colette Zamarripa MA - 04/18/2025 10:10 AM EDT Reason for Appointment: Patient ID: Kevin Conley is a 29 y.o. female who presents for Routine Visit Patient presents today for Return OB appointment. MEDICATIONS Current Outpatient Medications Medication Instructions Alcohol Swabs (Alcohol Prep Pad) 70 % pads 1 Pad, Topical, Daily, Use four times daily to check FSBS. Blood Glucose Monitoring Suppl ([employer] Glucometer) w/Device kit 1 kit, Does not [...] Diagnosis Date Noted No Resolved Ambulatory Problems Past Medical History: Diagnosis Date SAB (spontaneous ) ([facility]) 10/2021 HISTORY PAST MEDICAL HISTORY SOCIAL HISTORY Past Medical History: Diagnosis Date SAB (spontaneous ) ([facility]) 10/2021 Social History Tobacco Use Smoking status: Not [...] nursing note reviewed. Exam conducted with a goat herder present. Vitals: There is no height or weight on file to calculate BMI. BP: No LMP recorded. Patient is . ASSESSMENT & PLAN ICD-10-CM 1. Third trimester ([facility]) Z34.93 2. 30 weeks gestation of ([facility]) Z3A.30 Return OB: Patient presents today for a routine obstetrics appointment. Patient is currently 30w3d . Patient states she is doing well but has complaints of being tired due to current . Patient has verbalizes frequent movement. labor precautions was discussed/given and patient was instructed to perform kick counts three times a day. Continues with NST / BPP and feeling well. She has continued to call in her glucose to MFM and Lantus at 25 untis. No orders of the defined types were placed in this encounter. Follow Up: Patient is to return to office in 2 week for routine OB appointment. Documented by Colette Zamarripa MA on behalf of: Cain Donaldson DO documented in this encounter Plan of Treatment Upcoming Encounters Date Type Department Care Team (Late st Contact Info) Description 05/03/2025 8:50 AM EDT Routine [facility] OB [address] [facility] [address] Christy Schwartz PA [address] [place] [address] [place] [address] documented as of this encounter Goals Goal Patient Goal Type Associated Problems Recent Progress Patient-Stated? Author Reminders Care Plan OB Reminders No Open Scheduling, Background documented as of this encounter Procedures Procedure Name Priority Date/Time Associated Diagnosis Comments POCT URINALYSIS DIPSTICK Routine 04/18/2025 10:40 AM EDT Third trimester ([facility]) documented in this encounter Results * POCT urinalysis dipstick manually resulted (04/18/2025 10:40 AM EDT) Color, UA Yellow Clarity, UA Clear Glucose, UA Negative Negative - 2000(110) ++++ mg/dL Bilirubin, UA Negative Negative - 4(70) +++ mg/dL Ketones, UA Negative Negative - 160(16) ++++ mg/dL Spec Grav, UA 1.010 1 - 1.03 Blood, UA Negative Negative - 50 Warren/mcL pH, UA 7.0 5 - 9 Protein, UA Negative Negative - 2000(20) ++++ mg/dL Urobilinogen, UA 0.2 0.2 - 12 mg/dL Leukocytes, UA Positive Negative - 500+++ Malick/mcL Comment:small Nitrite, UA Negative Negative - Positive Urine 04/18/2025 10:4 0 AM EDT Cain Donladson DO POINT OF CARE TEST ENTER/EDIT OR DERABLES Final Result documented in this encounter Visit Diagnoses Diagnosis Third trimester ([facility]) state, incidental 30 weeks gestation of ([facility]) documented in this encounter Additional Health Concerns Active Problems Noted Date Diagnosed Date OB Reminders 11/26/2024 documented as of this encounter
--- OUTSIDE RECORDS SUMMARY | 2025-04-25 11:30 | XMS_ITS | Encounter Summary ---
Author Organization [facility] tem Address [facility] [place] [address] [place] [address] Care Team Providers Care Cable Installer Name Role Phone Unavailable Primary Care Provider Unavailabl e Encounter Details Date Type Department Care Team (Late st Contact Info) Description 04/25/2025 11:30 AM EDT Telemedicine Maternal- Medicine at [facility] [address] [place] [phone] Devika Pulido, PAMoniqueC [address] [address] Insulin controlled gestational diabetes mellitus (GDM) in [...] is present at home, provider present at [facility] HISTORY OF PRESENT ILLNESS: Kevin Conley [...] on right. She is following urology through [place]. Her pain and symptoms have improved, are [...] each meal., Disp: , Rfl: blood-glucose meter [facility], 4 (four) times a day. [...] route., Disp: , Rfl: lancets (LANCETS,ULTRA THIN) [facility], Use to check blood sugar [...] Delivery recommendations : - Recommend delivery at [id number] - Discuss delivery if estimated weight is [...] values to us weekly by e-mail to: [email or web address] or by fax to: [phone] Devika Pulido PA-C Maternal- Medicine Office phone: [phone] Devika Pulido PA-C 04/25/25 1145 documented in this encounter Plan of Treatment Upcoming Encounters Date Type Department Care Team (Late st Contact Info) Description 05/12/2025 8:00 AM EDT Appointment Maternal Medicine [place] [address] [facility] [address] [place] [address] 05/23/2025 1:30 PM EDT Telemedicine Maternal- Medicine at [facility] [address] [place] [address] Devika Pulido PA-C [address] [address] documented as of this encounter Visit Diagnoses Diagnosis Insulin controlled gestational diabetes mellitus (GDM) in third trimester- Primary documented in this encounter Additional Health Concerns Assessment Noted Time PHQ-9 Depression Total Score: 2 07/03/20 16 9:00 AM EDT documented as of this encounter
--- NOTE | 2025-04-26 17:17 | US_ITS ---
The [address] [address] Patient Name: FANNIE WHITE MRN: [facility]:[id number] date: 1995 Sex: F Assigned Patient Location: [facility] Current Patient Location: Accession/Order Number: [id number] Exam Date: 04/27/2025 08:06 Report Date: 04/27/2025 08:07 At the request of: GEORGE HALE Procedure: US OB BPP w non-stress BIOPHYSICAL PROFILE: CLINICAL INFORMATION: GESTATIONAL DIABETES MELLITUS O24.419 COMPARISON: 04/19/2025 There is a single live intrauterine gestation in cephalic presentation. The reported gestational age is 31 weeks 4 days. The heart rate measures 121 beats per minute. FINDINGS: TONE: 1 or more episodes of activity extension and flexion of extremity or opening and closing of the hand [Y] 2/2 GROSS BODY MOVEMENTS: 3 or more discrete body or limb movements [Y] 2/2 BREATHING MOVEMENTS: 1 or more episodes of breathing lasting at least 30 seconds [Y] 2/2 ZITA: A single deepest vertical pocket of amniotic fluid greater than 2 cm [Y] 2/2 ZITA: 12.3 cm. This is in low-normal range. Total score: 8/8 US/US OB BPP w non-stress IMPRESSION: NORMAL BIOPHYSICAL PROFILE. Impression dictated by: Justina Munson M.D. 04/27/2025 8:07 AM Dictation Location: [place] [address] Electronically authenticated by: [id number] Y Date: 04/27/2025 08:07
--- OUTSIDE RECORDS SUMMARY | 2025-04-26 17:17 | XMS_ITS | Clinical Summary ---
Author Organization [facility] Address [address] [place] [address] Care Team Providers Care Packing And Shipping Clerk Name Role Phone Unavailable Primary Care Provider Unavailabl e Encounters Date Type Department Care Team Description 02/08/2025 6:04 PM EDT - 02/08/2025 11:59 PM EDT Hospital Encounter [facility] [address] [place] [address] Discharge Disposition: Home or Self Care from [...] Cutoff Neural Tube Defects Risks 1:1030 < 1:73759 1:250 Comments: The risk of an open neural tube defect is less than the screening cut-off. This test was developed and its performance characteristics determined by [facility]. It has not been cleared or approved [...] LABORATORY Comment: (NOTE) Initial sample Performed By: [facility] [address] [place] [address] Human Resources Recruiter: Jose Joseph MD, PhD CLIA Number: [id number] 02/08/2025 6:07 PM EDT 02/08/2025 6:09 PM EDT Christy Schwartz PA-C CHEMISTRY ORDERABLES Final Resu lt [facility] [address] [place], [place] [id number] [place] [address] [facility] [address] [phone] * Hepatitis C Antibody (12/23/2024 6:10 PM EST) Hepatitis C Ab NONREACTIVE NONREACTIVE 12/23/19 6:10 PM EST [facility] Comment: The hepatitis C procedure used in [...] ORDERABLES Fin al Result Performing Organization Address City/[facility]/ZIP Co de Phone Number [facility] [address] [place] [address], [facility] [phone] [employer] [address] [place] [address], [facility] [phone] * HIV Screen (12/23/2024 6:10 PM EST) HIV Ag/Ab NONREACTIVE NONREACTIVE 12/23/2024 6:10 PM EST [employer] Comment: No laboratory evidence of HIV infection. If acute HIV infection is suspected, consider testing for HIV-1 RNA. 12/23/2024 6:10 PM EST 12/23/2024 6:12 PM EST Cain Donaldson MD IMMUNOLOGY ORDERABLES Fin al Result Performing Organization Address [facility] Co de Phone Number [facility] [address] [place] [address], [facility] [phone] [employer] [address] [place] [address], [facility] [phone] from Last 3 Months or Most Recently Relevant to Health Maintenance Insurance
--- OUTSIDE RECORDS SUMMARY | 2025-04-26 17:17 | XMS_ITS | Encounter Summary ---
Author Organization [facility] Address [address] [place] [address] Care Team Providers Care Hearing Aid Specialist Name Role Phone Unavailable Primary Care Provider Unavailabl e Encounter Details Date Type Department Care Team (Late st Contact Info) Description 04/19/2025 Results Follow-Up [facility] [address] [place] [address] Mary Thorpe LPN [address] [place] [address] Social History Tobacco Use Types Packs/Day Years [...] as of this encounter Miscellaneous Notes * Result Encounter Note - Mary Thorpe LPN - 04/21/2025 2:40 PM EDT Referral sent * Result Encounter Note - Mary Thorpe LPN - 04/20/2025 2:43 PM EDT Left another voicemail for pt to call office back * Result Encounter Note - Mary Thorpe LPN - 04/19/2025 2:19 PM EDT Left voicemail for pt to call office back documented in this encounter Plan of Treatment Upcoming Encounters Date Type Department Care Team (Late st Contact Info) Description 05/03/2025 8:50 AM EDT Routine [facility] [address] [place] [address] Christy Schwartz PA [address] [facility] [place], [place] [phone] documented as of this encounter Goals Goal Patient Goal Type Associated Problems Recent Progress Patient-Stated? Author Reminders Care Plan OB Reminders No Open Scheduling, Background documented as of this encounter Visit Diagnoses Not on filedocumented in this encounter Additional Health Concerns Active Problems Noted Date Diagnosed Date OB Reminders 11/26/2024 documented as of this encounter
--- OUTSIDE RECORDS SUMMARY | 2025-04-26 17:17 | XMS_ITS | Encounter Summary ---
Author Organization [facility] tem Address [facility] [id number] [address] [place] [address] Care Team Providers Care Maritime Guard Name Role Phone Unavailable Primary Care Provider Unavailabl e Encounter Details Date Type Department Care Team (Late Contact Info) Description 12/30/2024 Orders Only Maternal- Medicine at [facility] [address] [place] [address] Ref Prov, [place] [address] Social History Tobacco Use Types Packs/Day Years [...] 05/12/2025 8:00 AM EDT Appointment Maternal Medicine [place] [address] [facility] [address] [place] [address] 05/23/2025 1:30 PM EDT Telemedicine Maternal- Medicine at [facility] [address] [place] [address] Devika Pulido, JASON [address] [address] documented as of this encounter Visit Diagnoses Not on filedocumented in this encounter Additional Health Concerns Assessment Noted Time PHQ-9 Depression Total Score: 2 07/03/20 16 9:00 AM EDT documented as of this encounter
--- OUTSIDE RECORDS SUMMARY | 2025-04-26 17:17 | XMS_ITS | Encounter Summary ---
Author Organization [facility] Address [address] [place] [address] Care Team Providers Care Clinical Microbiologist Name Role Phone Unavailable Primary Care Provider Unavailabl e Encounter Details Date Type Department Care Team (Late Contact Info) Description 12/27/2024 Abstract [facility] [address] [facility] [phone] Cain Donaldson DO [address] [place] [address] Dr Kelsey Prieto, [id number] Social History Tobacco Use Types Packs/Day Years [...] OB [address] [facility] [address] Christy Schwartz PA [address] [facility] [address] [place], [place] [phone] documented as of this encounter Goals Goal Patient Goal Type Associated Problems Recent Progress Patient-Stated? Author Reminders Care Plan OB Reminders No Open Scheduling, Background documented as of this encounter Visit Diagnoses Not on filedocumented in this encounter Additional Health Concerns Active Problems Noted Date Diagnosed Date OB Reminders 11/26/2024 documented as of this encounter
--- OUTSIDE RECORDS SUMMARY | 2025-04-26 17:17 | XMS_ITS | Encounter Summary ---
Author Organization [facility] Address [address] [place] [address] Care Team Providers Care Packaging Associate Name Role Phone Unavailable Primary Care Provider Unavailabl e Encounter Details Date Type Department Care Team (Latest Contact Info) Description 04/26/2025 Travel Social History Tobacco Use Types Packs/Day [...] OB [address] [facility] [place] [phone] Christy Schwartz PA [address] [facility] [facility] [place] [address] documented as of this encounter Goals Goal Patient Goal Type Associated Problems Recent Progress Patient-Stated? Author Reminders Care Plan OB Reminders No Open Scheduling, Background documented as of this encounter Visit Diagnoses Not on filedocumented in this encounter Additional Health Concerns Active Problems Noted Date Diagnosed Date OB Reminders 11/26/2024 documented as of this encounter
--- OUTSIDE RECORDS SUMMARY | 2025-04-26 17:17 | XMS_ITS | Encounter Summary ---
Author Organization [facility] Address [address] [place] [address] Care Team Providers Care Director Clinical Operations Name Role Phone Unavailable Primary Care Provider Unavailabl e Encounter Details Date Type Department Care Team (Late Contact Info) Description 04/19/2025 Clinisync Result Encounter [facility] External Department Unsolicited Alfredo Donaldson, DO [address] Prieto, [place] [address] Social History Tobacco Use Types Packs/Day Years [...] [address] [facility] [place] [address] Christy Schwartz PA [address] [place], [place] [address] documented as of this encounter Goals Goal Patient Goal Type Associated Problems Recent Progress Patient-Stated? Author Reminders Care Plan OB Reminders No Open Scheduling, Background documented as of this encounter Procedures Procedure Name Priority Date/Time Associated Diagnosis Comments US OB BPP W NON-STRESS 04/19/2025 9:04 AM EDT documented in this encounter Results * US OB BPP W NON-STRESS (04/19/2025 9:04 AM EDT) Anatomical Region Laterality Modality Other 04/19/2025 9:04 AM EDT Narrative 04/19/2025 9:06 [place] [address] Ultrasound Report Signed Patient: KEVIN WHITE MR#: [id number] : 1995 Acct:[id number] Age/Sex: 29 / F ADM Date: Loc: [facility] 254-[address]: Alfredo Donaldson D.O. Ordering Physician: Alfredo Donaldson D.O. Date of Service: 04/19/25 Procedure(s): US OB BPP w non-stress Accession Number(s): [id number] cc: Alfredo Donaldson D.O. [place] [address] Patient Name: KEVIN WHITE MRN: [id number] date: 1995 Sex: F Assigned Patient Location: LAB Current Patient Location: Accession/Order Number: [id number] Exam Date: 04/19/2025 09:00 Report Date: 04/19/2025 09:04 At the request of: ALFREDO DONALDSON DO Procedure: US OB BPP w non-stress BIOPHYSICAL PROFILE: CLINICAL INFORMATION: . Right flank pain and microscopic hematuria. COMPARISON: 04/11/2025 There is a single live intrauterine gestation in cephalic presentation. The reported gestational age is 30 weeks 4 days. The heart rate measures 127 beats per minute. FINDINGS: TONE: 1 or more episodes of activity extension and flexion of extremity or opening and closing of the hand [Y] 2/2 GROSS BODY MOVEMENTS: 3 or more discrete body or limb movements [Y] 2/2 BREATHING MOVEMENTS: 1 or more episodes of breathing lasting at least 30 seconds [Y] 2/2 ZITA: A single deepest vertical pocket of amniotic fluid greater than 2 cm [Y] 2/2 ZITA: 14.2 cm. This is normal. Total score: 8/8 US/US OB BPP w non-stress IMPRESSION: NORMAL BIOPHYSICAL PROFILE. Impression dictated by: Justina Munson M.D. 04/19/2025 9:04 AM Dictation Location: [place] [address] Electronically authenticated by: [id number] Y Date: 04/19/2025 09:04 Dictated By: Justina Munson M.D. Signed By: 04/19/25905 DD/ 3 TD/TT: Chart Snatcher: Procedure Note Radiology, Radiologist, MD - 04/19/2025 [place] [address] Ultrasound Report Signed Patient: KEVIN WHITEMR#: [id number] : 1995Acct:[id number] Age/Sex: Date: Loc: [facility] 254- Attending Dr: Alfredo Donaldson D.O. Ordering Physician: Alfredo Donaldson D.O. Date of Service: 04/19/25 Procedure(s): US OB BPP w non-stress Accession Number(s): [id number] cc: Alfredo Donaldson D.O. The [place] [address] Patient Name: KEVIN WHITE MRN: [facility]:[id number] date: 1995 Sex: F Assigned Patient Location: LAB Current Patient Location: Accession/Order Number: [id number] Exam Date: 04/19/2025 09:00 Report Date: 04/19/2025 09:04 At the request of: ALFREDO DONALDSON DO Procedure: US OB BPP w non-stress BIOPHYSICAL PROFILE: CLINICAL INFORMATION: . Right flank pain and microscopichematuria. COMPARISON: 04/11/2025 There is a single live intrauterine gestation in cephalic presentation.The reported gestational age is 30 weeks 4 days. The heart ratemeasures 127 beats per minute. FINDINGS: TONE: 1 or more episodes of activity extension and flexion of extremity or opening and closing of the hand [Y] 2/2 GROSS BODY MOVEMENTS: 3 or more discrete body or limb movements [Y] 2/2 BREATHING MOVEMENTS: 1 or more episodes of breathing lastingat least 30 seconds [Y] 2/2 ZITA: A single deepest vertical pocket of amniotic fluid greater than 2 cm [Y] 2/2 ZITA: 14.2 cm. This is normal. Total score: 8/8 US/US OB BPP w non-stress IMPRESSION: NORMAL BIOPHYSICAL PROFILE. Impression dictated by: Justina Munson M.D. 04/19/2025 9:04 AM Dictation Location: [place] [address] Electronically authenticated by: [id number] Y Date: 509:04 Dictated By: Justina Munson M.D. Signed By:04/19/25905 DD/ 3 TD/TT: Chart Snatcher: us Alfredo Mendoza DO [facility] Final Result documented in this encounter Visit Diagnoses Not on filedocumented in this encounter Additional Health Concerns Active Problems Noted Date Diagnosed Date OB Reminders 11/26/2024 documented as of this encounter
--- OUTSIDE RECORDS SUMMARY | 2025-04-26 17:17 | XMS_ITS | Encounter Summary ---
Author Organization [facility] Address [address] [place] [address] Care Team Providers Care Patient Placement Coordinator Name Role Phone Unavailable Primary Care Provider Unavailabl e Encounter Details Date Type Department Care Team (Late Contact Info) Description 12/24/2024 Abstract [facility] [address] [facility] [place] [phone] Cain Donaldson DO [address] [place] [address] Dr Kelsey Prieto, [facility] Social History Tobacco Use Types Packs/Day [...] EDT Routine [facility] [address] [facility] [place] [address] Christy Schwartz PA [address] [facility] [address] [place], [place] [address] documented as of this encounter Goals Goal Patient Goal Type Associated Problems Recent Progress Patient-Stated? Author Reminders Care Plan OB Reminders No Open Scheduling, Background documented as of this encounter Visit Diagnoses Not on filedocumented in this encounter Additional Health Concerns Active Problems Noted Date Diagnosed Date OB Reminders 11/26/2024 documented as of this encounter
--- OUTSIDE RECORDS SUMMARY | 2025-04-26 17:17 | XMS_ITS | Encounter Summary ---
Author Organization [employer] [facility] tem Address [id number] [address] [place] [address] Care Team Providers Care Dispatcher Clerk Name Role Phone Unavailable Primary Care [...] 05/12/2025 8:00 AM EDT Appointment Maternal Medicine [place] [address] [facility] [address] [place] [address] 05/23/2025 1:30 PM EDT Telemedicine Maternal- Medicine at [facility] [address] [place] [phone] Devika Pulido, [place] [address] [address] documented as of this encounter Visit Diagnoses Not on filedocumented in this encounter Additional Health Concerns Assessment Noted Time PHQ-9 Depression Total Score: 2 07/03/20 16 9:00 AM EDT documented as of this encounter
--- OUTSIDE RECORDS SUMMARY | 2025-04-26 17:17 | XMS_ITS | Encounter Summary ---
Author Organization [facility] Address [address] [place] [address] Care Team Providers Care Classification Officer Name Role Phone Unavailable Primary Care Provider Unavailabl e Encounter Details Date Type Department Care Team (Late Contact Info) Description 04/17/2025 Clinisync Result Encounter [facility] External Department Unsolicited Cain Donaldson, DO [address] [facility] [address] Kelsey Prieto, [place] [address] Social History Tobacco Use Types Packs/Day Years [...] OB [address] [place] [phone] Christy Schwartz PA [address] [facility] [address] [place], [place] [phone] documented as of this encounter Goals Goal [...] us Cain Mendoza DO [facility]IN[facility] Final [facility] documented in this encounter Visit Diagnoses Not on filedocumented in this encounter Additional Health Concerns Active Problems Noted Date Diagnosed Date OB Reminders 11/26/2024 documented as of this encounter
--- OUTSIDE RECORDS SUMMARY | 2025-04-26 17:17 | XMS_ITS | Encounter Summary ---
Author Organization [facility] tem Address [id number] [address] [place] [address] Care Team Providers Care Leather Belt Loop Cutter Name Role Phone Unavailable Primary Care Provider Unavailabl e Encounter Details Date Type Department Care Team (Late st Contact Info) Description 04/12/2025 Telephone Maternal- Medicine at [facility] [address] [place] [phone] Sonya Lomax, RN Social History Tobacco Use [...] 05/12/2025 8:00 AM EDT Appointment Maternal Medicine [place] [address] [facility] 4 [place] [address] 05/23/2025 1:30 PM EDT Telemedicine Maternal- Medicine at [facility] [address] [place] [phone] Devika Pulido, PAMoniqueC [address] [address] documented as of this encounter Visit Diagnoses Not on filedocumented in this encounter Additional Health Concerns Assessment Noted Time PHQ-9 Depression Total Score: 2 07/03/20 16 9:00 AM EDT documented as of this encounter
--- OUTSIDE RECORDS SUMMARY | 2025-04-26 17:17 | XMS_ITS | Encounter Summary ---
Author Organization [facility] Address [address] [place] [address] Care Team Providers Care Office Professional Name Role Phone Unavailable Primary Care Provider Unavailabl e Encounter Details Date Type Department Care Team (Late st Contact Info) Description 11/12/2024 Abstract [facility] OB [address] [facility] [phone] Cain Donaldson DO [address] [facility] [address] Kelsey Prieto, [facility] Social History Tobacco Use Types Packs/Day Years [...] AM EDT Routine NOMS BCP OB [address] [facility] [phone] Christy Schwartz PA [address] [facility] [address] [place], [place] [phone] documented as of this encounter Visit Diagnoses Not on filedocumented in this encounter
--- OUTSIDE RECORDS SUMMARY | 2025-04-26 17:17 | XMS_ITS | Encounter Summary ---
Author Organization [facility] Address [address] [facility] [place] [address] Care Team Providers Care Channel Partners Name Role Phone Unavailable Primary Care Provider Unavailabl e Encounter Details Date Type Department Care Team (Late st Contact Info) Description 03/18/2025 Abstract [facility] OB [address] [facility] [place] [phone] Yue Dumont MA Social History Tobacco Use [...] Description 05/03/2025 8:50 AM EDT Routine [facility] OB [address] [place] [address] [place] [phone] Christy Schwartz PA [address] [place] [address] [place] [address] documented as of this encounter Goals Goal Patient Goal Type Associated Problems Recent Progress Patient-Stated? Author Reminders Care Plan OB Reminders No Open Scheduling, Background documented as of this encounter Visit Diagnoses Not on filedocumented in this encounter Additional Health Concerns Active Problems Noted Date Diagnosed Date OB Reminders 11/26/2024 documented as of this encounter
--- OUTSIDE RECORDS SUMMARY | 2025-04-26 17:17 | XMS_ITS | Encounter Summary ---
Author Organization [facility] Address [address] [place] [address] Care Team Providers Care Pharmacy Care Coordinator Name Role Phone Unavailable Primary Care Provider Unavailabl e Encounter Details Date Type Department Care Team (Late Contact Info) Description 01/10/2025 Abstract [facility] BCP OB [address] [facility] [place] [phone] Cain Donaldson DO [address] [place] [address] Dr Kelsey Prieto, [facility]11 Social History Tobacco Use Types [...] AM EDT Routine [facility] BCP OB [address] [facility] [place] [address] Christy Schwartz PA [address] [facility] [address] [place], [place] [phone] documented as of this encounter Goals Goal Patient Goal Type Associated Problems Recent Progress Patient-Stated? Author Reminders Care Plan OB Reminders No Open Scheduling, Background documented as of this encounter Visit Diagnoses Not on filedocumented in this encounter Additional Health Concerns Active Problems Noted Date Diagnosed Date OB Reminders 11/26/2024 documented as of this encounter
--- OUTSIDE RECORDS SUMMARY | 2025-04-26 17:17 | XMS_ITS | Encounter Summary ---
Author Organization [facility] Address [address] [place] [address] Care Team Providers Care Dye House Vat Worker Name Role Phone Unavailable Primary Care Provider Unavailabl e Encounter Details Date Type Department Care Team (Late Contact Info) Description 11/26/2024 Abstract [facility] BCP OB [address] [facility] [place] [phone] Cain Donaldson DO [address] [place] [address] Dr Kelsey Prieto, [facility] [address] [address] [address] Social History Tobacco Use Types Packs/Day Years [...] AM EDT Routine [facility] BCP OB [address] [facility] [place] [address] Christy Schwartz PA [address] [facility] [address] [place], [place] [phone] documented as of this encounter Goals Goal Patient Goal Type Associated Problems Recent Progress Patient-Stated? Author Reminders Care Plan OB Reminders No Open Scheduling, Background documented as of this encounter Visit Diagnoses Not on filedocumented in this encounter Additional Health Concerns Active Problems Noted Date Diagnosed Date OB Reminders 11/26/2024 documented as of this encounter
--- OUTSIDE RECORDS SUMMARY | 2025-04-26 17:17 | XMS_ITS | Encounter Summary ---
Author Organization [facility] Address [address] [facility] [place] [address] Care Team Providers Care Tire Center Manager Name Role Phone Unavailable Primary Care Provider Unavailabl e Encounter Details Date Type Department Care Team (Late Contact Info) Description 01/27/2025 Orders Only [facility] BCP OB [address] [facility] [place] [phone] Damaris Lopez LPN [address] [facility] [facility] [address] [place] [phone] Social History Tobacco Use Types Packs/Day Years [...] EDT Routine [facility]OM[facility] BCP OB [address] [facility] [place] [address] Christy Schwartz PA [address] [facility] [address] [place], [place] [phone] documented as of this encounter Goals Goal Patient Goal Type Associated Problems Recent Progress Patient-Stated? Author Reminders Care Plan OB Reminders No Open Scheduling, Background documented as of this encounter Procedures Procedure Name Priority Date/Time Associated Diagnosis Comments PAP SMEAR Routine 01/20/2025 12:00 AM EDT documented in this encounter Results * Pap Smear (01/20/2025 12:00 AM EDT) Swab Cervical swab / Unknown us Mendoza Nurse [facility] Bcp Ob LAB CYTOLOGY ORDERABLES Final Result EXTERNAL LAB documented in this encounter Visit Diagnoses Not on filedocumented in this encounter Additional Health Concerns Active Problems Noted Date Diagnosed Date OB Reminders 11/26/2024 documented as of this encounter
--- OUTSIDE RECORDS SUMMARY | 2025-04-26 17:17 | XMS_ITS | Encounter Summary ---
Author Organization [facility] Address [address] [place] [address] Care Team Providers Care Brush Trimming Machine Setter Name Role Phone Unavailable Primary Care Provider Unavailabl e Encounter Details Date Type Department Care Team (Late Contact Info) Description 04/18/2025 Clinisync Result Encounter NOMS External Department Unsolicited Cain Donaldson, DO [address] [facility] [address] Kelsey Prieto, [facility]11 Social History Tobacco Use Types Packs/Day [...] AM EDT Routine [facility] BCP OB [address] [facility] [phone] Christy Schwartz PA [address] [facility] [address] [place], [place] [phone] documented as of this encounter Goals Goal Patient Goal Type Associated Problems Recent Progress Patient-Stated? Author Reminders Care Plan OB Reminders No Open Scheduling, Background documented as of this encounter Procedures Procedure Name Priority Date/Time Associated Diagnosis Comments [facility] GLUCOSE BLOOD Routine 04/18/2025 11: 43 PM EDT TBH CREATININE Routine 04/18/2025 11:43 PM EDT ALL CBC WITH AUTO DIFF Routine 04/18/2025 11:43 PM EDT ALL BUN Routine 04/18/2025 11:43 PM EDT TBH URINE MICROSCOPIC ONLY Routine 04/18/2025 9:05 PM EDT TBH UA (CLEAN/CATCH) COMMUNITY MARKETING COORDINATOR/MICRO IF IND. Routine 04/18/2025 9:05 PM EDT TBH CREATININE URINE Routine 04/18/2025 9:05 PM EDT documented in this encounter Results * (ABNORMAL) TBH CREATININE (04/18/2025 11:43 PM EDT) CREATININE 0.44(L) 0.55 - 1.02 mg/dL TBH TBH EGFR-AF NIGERIAN >60 >=60 mL/min/1.7 3m 2 TBH TBH EGFR-NON AF NIGERIAN >60 >=60 mL/min/1.7 3m 2 TBH 04/18/2025 11:4 3 PM EDT 04/19/2025 12:48 AM EDT Narrative CLINISYNC - 04/19/2025 12:56 AM EDT us Cain Donaldson DO CLINISYNC Final Result CLINISYNC TB * (ABNORMAL) [facility] GLUCOSE BLOOD (04/18/2025 11:43 PM EDT) GLUCOSE 108(H) 74 - 106 mg/dL TBH 04/18/2025 11:4 3 PM EDT 04/19/2025 12:07 AM EDT Narrative CLINISYNC - 04/19/2025 12:15 AM EDT us Cain Mendoza DO CLINISYNC Final Result CLINISYNC TB * ALL BUN (04/18/2025 11:43 PM EDT) Pathologist [facility] BLOOD UREA NITROGEN 13.0 7.0 - 18.0 mg/dL TB 04/18/2025 11:4 3 PM EDT 04/18/2025 11:53 PM EDT Narrative CLINISYNC - 04/19/2025 12:04 AM EDT [facility] Mendoza DO CLINISYNC Final Result CLINISYNC [facility] * (ABNORMAL) ALL CBC WITH AUTO DIFF (04/18/2025 11:43 PM EDT) [facility] TB WBC 8.0 4.0 - 11.0 10 3/uL TBH TB RBC 3.61(L) 4.20 - 5.40 10 6/uL TBH TBH HGB 10.8(L) 12.0 - 16.0 g/dL TB TB HCT 31.1(L) 36.0 - 48.0 % TBH TB MCV 86.1 81.0 - 99.0 fL TBH TB MCH 29.9 26.7 - 34.0 pg TBH TB MCHC 34.7 29.9 - 35.2 g/dL TB TB RDW 13.3 11.0 - 15.0 % TBH TBH PLT 178 150 - 450 10 3/uL TBH TBH MPV 10.4 9.5 - 13.5 fL TBH NEUTROPHILS PERCENT AUTO 73.1 43.0 - 75.0 % TBH LYMPHOCYTES PERCENT AUTO 15.7(L) 20.5 - 60.0 % TBH MONOCYTES PERCENT AUTO 8.7 1.7 - 12.0 % TBH TBH EO % 1.4 0.9 - 7.0 % TBH BASOPHILS PERCENT AUTO 0.1(L) 0.2 - 2.0 % TBH IMMATURE GRANULOCYTES PCT AUTO 1.0(H) 0.0 - 0.5 % TBH NEUTROPHILS ABSOLUTE AUTO 5.9 1.4 - 6.5 10 3/uL TBH LYMPHOCYTES ABSOLUTE AUTO 1.3 1.2 - 3.8 10 3/uL TBH MONOCYTES ABSOLUTE AUTO 0.7 0.3 - 0.8 10 3/uL TBH TBH EO # 0.1 0.0 - 0.7 10 3/uL TBH BASOPHILS ABSOLUTE AUTO 0.0 0.0 - 0.1 10 3/uL TBH IMMATURE GRANULOCYTES ABS AUTO 0.08(H) 0.00 - 0.03 10 3/uL TBH 04/18/2025 11:4 3 PM EDT 04/18/2025 11:53 PM EDT Narrative CLINISYNC - 04/18/2025 11:57 PM EDT Cain Mendoza DO CLINISYNC Final Result CLINISYDC TB * TBH CREATININE URINE (04/18/2025 9:05 PM EDT) CREATININE URINE RANDOM 84.16 20.00 - 300.00 mg/dL TB 04/18/2025 9:05 PM EDT 04/18/2025 10:44 PM EDT Narrative CLINISYNC - 04/18/2025 10:51 PM EDT [facility] Mendoza DO CLINISYNC Final Result CLINISYDC TB * (ABNORMAL) TBH URINE MICROSCOPIC ONLY (04/18/2025 9:05 PM EDT) TBH WBC 5-10(A) NONE SEEN #/HPF TBH TBH RBC 5-10(A) 0 - 2 #/HPF TBH BACTERIA URINE MODERATE(A) NONE SEEN #/HPF TBH MUCUS URINE NONE SEEN NONE SEEN TBH SQUAMOUS EPITHELIAL CELL URINE FEW(A) NONE/RARE #/LPF TBH CRYSTALS SEEN? Seen(A) None Seen #/HPF TBH TBH CALCIUM OXALATE CRYSTALS URINE FEW TBH AMORPHOUS SEDIMENT URINE MODERATE TBH CAST SEEN? NONE SEEN NONE SEEN #/LPF TBH URINE CULTURE INDICATED YES-LC TBH 04/18/2025 9:05 PM EDT 04/18/2025 9:52 PM EDT Narrative CLINISYNC - 04/18/2025 10:09 PM EDT us Cain Mendoza DO CLINISYNC Final Result CLINISYNC TBH * (ABNORMAL) TBH UA (CLEAN/CATCH) COMMUNITY MARKETING COORDINATOR/MICRO IF IND. (04/18/2025 9:05 PM EDT) COLOR URINE LT. YELLOW YELLOW TBH CLARITY URINE CLEAR CLEAR TBH SPECIFIC GRAVITY URINE 1.020 1.005 - 1.025 TBH PH URINE 6.0 5.0 - 9.0 TBH PROTEIN URINE NEGATIVE NEG/TRACE mg/dL TBH GLUCOSE URINE UA NEGATIVE NEGATIVE mg/dL TBH BILIRUBIN URINE NEGATIVE NEGATIVE TBH KETONES URINE NEGATIVE NEGATIVE mg/dL TBH BLOOD URINE MODERATE(A) NEGATIVE TBH NITRITE URINE NEGATIVE NEGATIVE TBH UROBILINOGEN URINE 0.2 0.2 - 1.0 EU/dL TBH LEUKOCYTE ESTERASE URINE SMALL(A) NEGATIVE TBH URINE MICROSCOPIC INDICATED YES TBH 04/18/2025 9:05 PM EDT 04/18/2025 9:52 PM EDT Narrative CLINISYNC - 04/18/2025 10:09 PM EDT us Cain Mendoza DO CLINISYNC Final Result CLINISYNC TBH documented in this encounter Visit Diagnoses Not on filedocumented in this encounter Additional Health Concerns Active Problems Noted Date Diagnosed Date OB Reminders 11/26/2024 documented as of this encounter
--- OUTSIDE RECORDS SUMMARY | 2025-04-26 17:17 | XMS_ITS | Encounter Summary ---
Author Organization [facility] Address [address] [place] [address] Care Team Providers Care Retail Associate Manager Bilingual Name Role Phone Unavailable Primary Care Provider Unavailabl e Encounter Details Date Type Department Care Team (Late Contact Info) Description 04/22/2025 Abstract [facility] BCP OB [address] [facility] [place] [phone] Cain Donaldson DO [address] [place] [address] Dr Kelsey Prieto, [facility]11 Social History Tobacco Use Types [...] [address] [facility] [place] [address] Christy Schwartz PA [address] [facility] [address] [place], [place] [phone] documented as of this encounter Goals Goal Patient Goal Type Associated Problems Recent Progress Patient-Stated? Author Reminders Care Plan OB Reminders No Open Scheduling, Background documented as of this encounter Visit Diagnoses Not on filedocumented in this encounter Additional Health Concerns Active Problems Noted Date Diagnosed Date OB Reminders 11/26/2024 documented as of this encounter
--- OUTSIDE RECORDS SUMMARY | 2025-04-26 17:17 | XMS_ITS | Encounter Summary ---
Author Organization [facility] tem Address [facility] [address] [place] [address] Care Team Providers Care Office Auditor Name Role Phone Unavailable Primary Care Provider Unavailabl e Encounter Details Date Type Department Care Team (Late st Contact Info) Description 02/17/2025 Orders Only Maternal- Medicine at [facility] [address] [place] [phone] Christy Prado LPN Insulin controlled gestational diabetes mellitus (GDM) in second trimester; Prediabetes in mother during ; 20 weeks gestation of ; Choroid plexus cyst of fetus affecting care of mother, antepartum, single or unspecified fetus; Heterozygous factor V Leiden affecting in second trimester, antepartum; Severe obesity due to excess calories affecting , antepartum ([facility]); Bipolar disorder, in full remission, [...] 05/12/2025 8:00 AM EDT Appointment Maternal Medicine [place] [address] [facility] [address] [place] [phone] 05/23/2025 1:30 PM EDT Telemedicine Maternal- Medicine at [facility] [address] [place] [phone] Devika Pulido PA-C [address] [address] documented as of this encounter Procedures Procedure [...] due to excess calories affecting , antepartum ([facility]) Bipolar disorder, in full remission, [...] due to excess calories affecting , antepartum ([facility]) Bipolar disorder, in full remission, most recent episode depressed documented in this encounter Additional Health Concerns Assessment Noted Time PHQ-9 Depression Total Score: 2 07/03/20 16 9:00 AM EDT documented as of this encounter
--- OUTSIDE RECORDS SUMMARY | 2025-04-26 17:17 | XMS_ITS | Encounter Summary ---
Author Organization [facility] Address [address] [place] [address] Care Team Providers Care Building Pressure Washer Name Role Phone Unavailable Primary Care Provider Unavailabl e Encounter Details Date Type Department Care Team (Late Contact Info) Description 04/19/2025 Clinisync Result Encounter NOMS External Department Unsolicited Alfredo Donaldson, DO [address] [facility] [address] Kelsey Prieto, [place] [address] Social History Tobacco Use Types Packs/Day Years [...] AM EDT Routine [facility] BCP OB [address] [facility] [place] [phone] Christy Schwartz PA [address] [facility] [address] [place], [place] [phone] documented as of this encounter Goals Goal Patient Goal Type Associated Problems Recent Progress Patient-Stated? Author Reminders Care Plan OB Reminders No Open Scheduling, Background documented as of this encounter Procedures Procedure Name Priority Date/Time Associated Diagnosis Comments US RENAL BI 04/19/2025 8:49 AM EDT documented in this encounter Results * US RENAL BI (04/19/2025 8:49 AM EDT) Anatomical Region Laterality Modality Other 04/19/2025 8:49 AM EDT Narrative 04/19/2025 8:52 AM EDT [address] [address] Ultrasound Report Signed Patient: KEVIN WHITE MR#: [id number] : 1995 Acct:[id number] Age/Sex: 29 / F ADM Date: Loc: [facility] 254-[address]: Alfredo Donaldson D.O. Ordering Physician: Alfredo Donaldson D.O. Date of Service: 04/19/25 Procedure(s): US renal BI Accession Number(s): [id number] cc: Alfredo Donaldson D.O. [address] [address] Patient Name: KEVIN WHITE MRN: [id number] date: 1995 Sex: F Assigned Patient Location: LAB Current Patient Location: Accession/Order Number: [id number] Exam Date: 04/19/2025 08:46 Report Date: 04/19/2025 08:49 At the request of: ALFREDO DONALDSON DO Procedure: US renal BI BILATERAL RENAL AND BLADDER ULTRASOUND CLINICAL HISTORY: patient with right flank pain and microscopic hematuria. COMPARISON: None Estimation of renal size is approximately 10.2 cm on the right and 13.3 cm on the left. There is an almost 1 cm echogenic focus at the inferior pole of the right kidney where a stone is suspected. There are also suspected stones on the left measuring up to 6 mm. No hydronephrosis is visualized on the left however there is minor pelviectasis on the right. No renal mass lesions were imaged. There is no perinephric fluid. The urinary bladder is partially distended with a volume of 780 ml. No contour or intraluminal abnormalities are seen. A gravid uterus is seen. US/US renal BI IMPRESSION: BILATERAL NEPHROLITHIASIS. MINOR RIGHT PELVIECTASIS. Impression dictated by: Justina Munson M.D. 04/19/2025 8:49 AM Dictation Location: [place] [address] Electronically authenticated by: [id number] Y Date: 04/19/2025 08:49 Dictated By: Justina Munson M.D. Signed By: 04/19/25 0852 DD/ 0849 TD/TT: Electronic Tester: Procedure Note Radiology, Radiologist, MD - 04/19/2025 [place] [address] Ultrasound Report Signed Patient: KEVIN WHITEMR#: [id number] : 1995Acct:[id number] Age/Sex: Date: Loc: [facility] 254-[address]: Alfredo Dnoaldson D.O. Ordering Physician: Alfredo Donaldson D.O. Date of Service: 04/19/25 Procedure(s): US renal BI Accession Number(s): [id number] cc: Alfredo Donaldson D.O. [place] [address] Patient Name: KEVIN WHITE MRN: [id number] date: 1995 Sex: F Assigned Patient Location: LAB Current Patient Location: Accession/Order Number: [id number] Exam Date: 04/19/2025 08:46 Report Date: 04/19/2025 08:49 At the request of: ALFREDO DONALDSON DO Procedure: US renal BI BILATERAL RENAL AND BLADDER ULTRASOUND CLINICAL HISTORY: patient with right flank pain and microscopic hematuria. COMPARISON: None Estimation of renal size is approximately 10.2 cm on the right and 13.3cm on the left. There is an almost 1 cm echogenic focus at the inferior pole ofthe right kidney where a stone is suspected. There are also suspected stoneson the left measuring up to 6 mm. No hydronephrosis is visualized on theleft however there is minor pelviectasis on the right. No renal mass lesionswere imaged. There is no perinephric fluid. The urinary bladder is partially distended with a volume of 780 ml. No contour or intraluminal abnormalities are seen. A gravid uterus is seen. US/US renal BI IMPRESSION: BILATERAL NEPHROLITHIASIS. MINOR RIGHT PELVIECTASIS. Impression dictated by: Justina Munson M.D. 04/19/2025 8:49 AM Dictation Location: [place] [address] Electronically authenticated by: [id number] Y Date: 508:49 Dictated By: Justina Munson M.D. Signed By:04/19/25 0852 DD/ 0849 TD/TT: Electronic Tester: us Alfredo Mendoza DO [facility]IN[facility] IMAGING Final Result documented in this encounter Visit Diagnoses Not on filedocumented in this encounter Additional Health Concerns Active Problems Noted Date Diagnosed Date OB Reminders 11/26/2024 documented as of this encounter
--- OUTSIDE RECORDS SUMMARY | 2025-04-26 17:18 | XMS_ITS | Clinical Summary ---
Author Organization [facility] Address [address] [place] [address] Care Team Providers Care Medical Transcription Editor Name Role Phone Unavailable Primary Care Provider Unavailabl e Allergies No known active allergies Medications Alcohol Swabs (Alcohol Prep Pad) 70 % padsIndications :Elevated glucose tolerance test, resulting from in vitro fertilization, antepartum ([facility]) Apply 1 Pad topically Daily Use four times daily to check FSBS. 150 each 3 5 Active Blood Glucose Monitoring Suppl (D-Care Glucometer) w/Device kitIndications: Elevated glucose tolerance test, resulting from in vitro fertilization, antepartum ([facility]) 1 kit Daily Use four times daily to check FSBS. In the morning prior to breakfast & 1 hour after each meal for a total of 4times daily. 1 kit 5 12/23/19 26 Active insulin syringe 29G X 1/2 0.5 mL miscIndications :Gestational diabetes mellitus (GDM), antepartum, gestational diabetes method of control unspecified ([facility]) Use 2 syringes in the morning for [...] Encounters Date Type Department Care Team Description 04/26/2025 Travel 04/22/2025 Abstract [facility] [address] [place] [address] Alfredo Donaldson, DO 04/19/2025 Results Follow-Up [facility] OB [facility] [place] [address] Mary ThorpeBELA 04/19/2025 Clinisync Result Encounter NOMS External Department Unsolicited Mendoza, Alfredo, DO 04/19/2025 Clinisync Result Encounter NOMS External Department Unsolicited Mendoza, Alfredo, DO 04/18/2025 10:10 AM EDT Routine [facility] OB [facility] [place] [address] Alfredo Donaldson, DO Third trimester ([facility]); 30 weeks gestation of ([facility]) 04/18/2025 Clinisync Result Encounter NOMS External Department Unsolicited Mendoza, Alfredo, DO 04/18/2025 Bamboo flowsheet [facility] OB [facility] [place] [address] Alfredo Donaldson, DO 04/17/2025 Clinisync Result Encounter NOMS External Department Unsolicited Mendoza, Alfredo, DO 04/14/2025 Abstract [facility] OB [facility] [place] [address] Yue Dumont [place] 04/11/2025 Clinisync Result Encounter NOMS External Department Unsolicited Mendoza, Alfredo, DO 04/11/2025 Clinisync Result Encounter NOMS External Department Unsolicited Mendoza, Alfredo, DO 04/05/2025 Clinisync Result Encounter NOMS External Department Unsolicited Mendoza, Alfredo, DO 03/30/2025 8:50 AM EDT Routine [facility] OB [facility] [place] [address] Christy Schwartz PA Second trimester ([facility]); 27 weeks gestation of ([facility]); Gestational diabetes mellitus (GDM), antepartum, gestational diabetes method of control unspecified ([facility]); Factor 5 Leiden mutation, heterozygous ([facility]); Conceived by in vitro fertilization 03/30/2025 Bamboo flowsheet [facility] [address] [place] [address] Christy Schwartz PA 03/30/2025 Travel 03/18/2025 Abstract [facility] [address] [place] [address] Yue Dumont [place] 03/03/2025 8:40 AM EDT Routine [facility]OM[facility] [address] [place] [address] Alfredo Donaldson, DO 23 weeks gestation of ([facility]); Second trimester ([facility]); induced hypertension, antepartum ([facility]); Insulin controlled gestational diabetes mellitus (GDM) during , antepartum ([facility]) 03/03/2025 Bamboo flowsheet NOM[facility] [address] [place] [address] Alfredo Donaldson DO 03/02/2025 Travel 01/27/2025 Orders Only [facility] [address] [place] [address] Damaris Lopez LPN from Last 3 Months Social History [...] [address] [facility] [place] [address] Christy Schwartz PA [address] [facility] [place] [address] Health Maintenance Due Date Last Done Comments HPV/Cotest 2023 Cervical Cancer Screening 01/21/2028 Pap Smear 01/21/2028 01/20/2025 Influenza Vaccine Completed 08/03/2024, 09/08/2023, 10/07/2022 Goals Goal Patient Goal Type Associated Problems Recent Progress Patient-Stated? Author Reminders Care Plan OB Reminders No Open Scheduling, Background Procedures Procedure Name Priority Date/Time Associated Diagnosis Comments US OB BPP W NON-STRESS 04/19/2025 9:04 AM EDT US RENAL BI 04/19/2025 8:49 AM EDT TBH CREATININE Routine 04/18/2025 11:43 PM EDT TBH GLUCOSE BLOOD Routine 04/18/2025 11: 43 PM EDT ALL BUN Routine 04/18/2025 11:43 PM EDT ALL CBC WITH AUTO DIFF Routine 04/18/2025 11:43 PM EDT TBH CREATININE URINE Routine 04/18/2025 9:05 PM EDT TBH URINE MICROSCOPIC ONLY Routine 04/18/2025 9:05 PM EDT TBH UA (CLEAN/CATCH) ALARM FIELD TECHNICIAN/MICRO IF IND. Routine 04/18/2025 9:05 PM EDT POCT URINALYSIS DIPSTICK Routine 04/18/2025 10:40 AM EDT Third trimester ([facility]) TBH TOTAL PROTEIN 24 HOUR URINE Routine [...] 9:08 AM EDT 23 weeks gestation of ([facility]) Second trimester ([facility]) US OB 14+ WEEKS ANATOMY SCAN 02/09/2025 4:57 PM EDT PAP SMEAR Routine 01/20/2025 12:00 AM EDT from Last 3 Months or Most Recently Relevant to Health Maintenance Results * US OB BPP W NON-STRESS (04/19/2025 9:04 AM EDT) Only the most recent of3 resultswithin the time period is included. Anatomical Region Laterality Modality Other 04/19/2025 9:04 AM EDT Narrative 04/19/2025 9:06 AM EDT [address] [address] Ultrasound Report Signed Patient: KEVIN WHITE MR#: [id number] : 1995 Acct:[id number] Age/Sex: 29 / F ADM Date: Loc: [facility] 254-[address]: Alfredo Donaldson D.O. Ordering Physician: Alfredo Dnoaldson D.O. Date of Service: 04/19/25 Procedure(s): US OB BPP w non-stress Accession Number(s): [id number] cc: Alfredo Donaldson D.O. [address] [address] Patient Name: KEVIN WHITE MRN: [id number] date: 1995 Sex: F Assigned Patient Location: LAB Current Patient Location: Accession/Order Number: [id number] Exam Date: 04/19/2025 09:00 Report Date: 04/19/2025 [...] Munson M.D. 04/19/2025 9:04 AM Dictation Location: [place] [address] Electronically authenticated by: [id number] Y Date: 04/19/2025 09:04 Dictated By: Justina Munson M.D. Signed By: 04/19/25905 DD/ 3 TD/TT: Shipping Clerk/Admin: Procedure Note Radiology, Radiologist, MD - 04/19/2025 [place] [address] Ultrasound Report Signed Patient: KEVIN WHITEMR#: [id number] : 1995Acct:[id number] Age/Sex: Date: Loc: [facility] 254-[address]: Alfredo Donaldson D.O. Ordering Physician: Alfredo Donaldson D.O. Date of Service: 04/19/25 Procedure(s): US OB BPP w non-stress Accession Number(s): [id number] cc: Alfredo Donaldson D.O. The [place] [address] Patient Name: KEVIN WHITE MRN: [facility]:[id number] date: 1995 Sex: F Assigned Patient Location: LAB Current Patient Location: Accession/Order Number: [id number] Exam Date: 04/19/2025 09:00 Report Date: 04/19/2025 [...] Munson M.D. 04/19/2025 9:04 AM Dictation Location: [place] [address] Electronically authenticated by: [id number] Y Date: 9:04 Dictated By: Justina Munson M.D. Signed By:04/19/25905 DD/ 3 TD/TT: Shipping Clerk/Admin: us Alfredo Donaldson DO [facility]AG[facility] Final Result * US RENAL BI (04/19/2025 8:49 AM EDT) Anatomical Region Laterality Modality Other 04/19/2025 8:49 AM EDT Narrative 04/19/2025 8:52 [place] [address] Ultrasound Report Signed Patient: KEVIN WHITE MR#: [id number] : 1995 Acct:[id number] Age/Sex: 29 / F ADM Date: Loc: [facility] 254- Attending Dr: Alfredo Donaldson D.O. Ordering Physician: Alfredo Donaldson D.O. Date of Service: 04/19/25 Procedure(s): US renal BI Accession Number(s): [id number] cc: Alfredo Donaldson D.O. [address] [address] Patient Name: KEVIN WHITE MRN: [id number] date: 1995 Sex: F Assigned Patient Location: LAB Current Patient Location: Accession/Order Number: [id number] Exam Date: 04/19/2025 08:46 Report Date: 04/19/2025 [...] Munson M.D. 04/19/2025 8:49 AM Dictation Location: [place] [address] Electronically authenticated by: [id number] Y Date: 04/19/2025 08:49 Dictated By: Justina Munson M.D. Signed By: 04/19/25 0852 DD/ 0849 TD/TT: Shipping Clerk/Admin: Procedure Note Radiology, Radiologist, MD - 04/19/[address] [address] Ultrasound Report Signed Patient: KEVIN WHITEMR#: [id number] : 1995Acct:[id number] Age/Sex: Date: Loc: [facility] 254-[address]: Alfredo Donaldson D.O. Ordering Physician: Alfredo Donaldson D.O. Date of Service: 04/19/25 Procedure(s): US renal BI Accession Number(s): [id number] cc: Alfredo Donaldson D.O. The [address] [address] Patient Name: KEVIN WHITE MRN: [id number] date: 1995 Sex: F Assigned Patient Location: LAB Current Patient Location: Accession/Order Number: [id number] Exam Date: 04/19/2025 08:46 Report Date: 04/19/2025 [...] Munson M.D. 04/19/2025 8:49 AM Dictation Location: [place] [address] Electronically authenticated by: [id number] Y Date: 508:49 Dictated By: Justina Munson M.D. Signed By:04/19/25 0852 DD/ 0849 TD/TT: Shipping Clerk/Admin: Alfredo Donaldson [facility] Final Result * (ABNORMAL) TBH GLUCOSE BLOOD (04/18/2025 11:43 PM EDT) GLUCOSE 108(H) 74 - 106 mg/dL TBH 04/18/2025 11:4 3 PM EDT 04/19/2025 12:07 AM EDT Narrative CLINISYNC - 04/19/2025 12:15 AM EDT [facility] * (ABNORMAL) TBH CREATININE (04/18/2025 11:43 PM EDT) Only the most recent of2 resultswithin the time period is included. CREATININE 0.44(L) 0.55 - 1.02 mg/dL TBH TBH EGFR-AF NIGERIEN >60 >=60 mL/min/1.7 3m 2 TBH TB EGFR-NON AF NIGERIEN >60 >=60 mL/min/1.7 3m 2 TBH 04/18/2025 11:4 3 PM EDT 04/19/2025 12:48 AM EDT Narrative CLINISYNC - 04/19/2025 12:56 AM EDT us Alfredo Mendoza DO CLINIS[facility]NC Final Result [facility] * (ABNORMAL) ALL CBC WITH AUTO DIFF (04/18/2025 11:43 PM EDT) Only the most recent of2 resultswithin the time period is included. Pathologist [facility] TB WBC 8.0 4.0 - 11.0 10 3/uL TBH TB RBC 3.61(L) 4.20 - 5.40 10 6/uL TBH TB HGB 10.8(L) 12.0 - 16.0 g/dL TB TB HCT 31.1(L) 36.0 - 48.0 % TBH TB MCV 86.1 81.0 - 99.0 fL TBH TB MCH 29.9 26.7 - 34.0 pg TBH TB MCHC 34.7 29.9 - 35.2 g/dL TB TB RDW 13.3 11.0 - 15.0 % TBH TB PLT 178 150 - 450 10 3/uL TBH TB MPV 10.4 9.5 - 13.5 fL TBH [...] Narrative CLINISYNC - 04/18/2025 11:57 PM EDT Alfredo Mendoza DO CLINISYNC Final Result Performing Organization Address [facility]/ZIP Co de Phone Number [facility] * ALL BUN (04/18/2025 11:43 PM EDT) Only the most recent of2 resultswithin the time period is included. BLOOD UREA NITROGEN 13.0 7.0 - 18.0 mg/dL TBH 04/18/2025 11:4 3 PM EDT 04/18/2025 11:53 PM EDT Narrative CLINISYNC - 04/19/2025 12:04 AM EDT Alfredo Mendoza DO CLINISYNC Final Result [facility] TB * (ABNORMAL) TBH URINE MICROSCOPIC ONLY [...] CLINISYNC - 04/18/2025 10:09 PM EDT us Alfredo Mendoza DO CLINISYNC Final Result Performing Organization Address [facility]/ZIP Co de Phone Number [facility] * (ABNORMAL) TBH UA (CLEAN/CATCH) ALARM FIELD TECHNICIAN/MICRO IF IND. (04/18/2025 9:05 PM EDT) COLOR [...] CLINISYNC - 04/18/2025 10:09 PM EDT us Alfredo Mendoza DO CLINISYNC Final Result Performing Organization Address [facility]/ZIP Co de Phone Number [facility] * TBH CREATININE URINE (04/18/2025 9:05 PM EDT) CREATININE URINE RANDOM 84.16 20.00 - 300.00 mg/dL TBH 04/18/2025 9:05 PM EDT 04/18/2025 10:44 PM EDT Narrative CLINISYNC - 04/18/2025 10:51 PM EDT us Alfredo Mendoza DO CLINISYNC Final Result [facility]MN TB * POCT urinalysis dipstick manually resulted (04/18/2025 10:40 AM EDT) Only the most recent of2 [...] Urine 04/18/2025 10:4 0 AM EDT Alfredo Mendoza DO POINT OF CARE TEST [...] CLINISYNC - 04/18/2025 10:45 AM EDT us Alfredo Mendoza DO CLINISYNC Final Result [facility] TB * SRMCOH PROTHROMBIN TIME INR W/O COUM (04/11/2025 4:52 PM EDT) PROTHROMBIN TIME 9.9 9.0 - 11.6 sec TB TB INR 0.93 TBH Comment: DESIRED INR: 2.0-3.0 CONDITIONS NOT LISTED BELOW 2.5-3.5 FOR PROSTHETIC HEART VALVE REPLACEMENT 2.5-3.5 RECURRENT THROMBOSIS 04/11/2025 4:52 PM EDT 04/11/2025 4:56 PM EDT Narrative CLINISYNC - 04/11/2025 5:57 PM EDT WineSimple Mendoza DO CLINISYNC Final Result [facility] * (ABNORMAL) C[facility] AST (04/11/2025 4:52 PM EDT) ASPARTATE AMINO TRANSFERASE 11(L) 15 - 37 U/L TB 04/11/2025 4:52 PM EDT 04/11/2025 4:56 PM EDT Narrative CLINISYNC - 04/11/2025 5:52 PM EDT [employer] DO CLINISYNC Final Result Performing Organization Address [facility]/ZIP Co de Phone Number [facility] * CCF APTT (04/11/2025 4:52 PM EDT) PARTIAL THROMBOPLASTIN TIME 27.3 22.3 - 36.2 sec TB 04/11/2025 4:52 PM EDT 04/11/2025 4:56 PM EDT Narrative CLINISYNC - 04/11/2025 5:57 PM EDT Alfredo Mendoza DO CLINISYNC Final Result Performing Organization Address [facility] Co de Phone Number [facility] * ALL URIC ACID (04/11/2025 4:52 PM EDT) URIC ACID 2.8 2.6 - 6.0 mg/dL TB 04/11/2025 4:52 PM EDT 04/11/2025 4:56 PM EDT Narrative CLINISYNC - 04/11/2025 5:52 PM EDT us Alfredo Mendoza DO CLINISYNC Final Result [facility] * ALL LDH (04/11/2025 4:52 PM EDT) LACTATE DEHYDROGENASE 153 81 - 234 U/L TBH 04/11/2025 4:52 PM EDT 04/11/2025 4:56 PM EDT Narrative CLINISYNC - 04/11/2025 5:52 PM EDT us Alfredo Veeo DO CLINISYNC Final Result Performing Organization Address [facility] Co de Phone Number CLINISYMN TB * US OB 14+ weeks anatomy scan (02/09/2025 4:57 PM EDT) Anatomical Region Laterality Modality Body Ultrasound 02/09/2025 4:57 PM EDT Narrative 02/09/2025 4:57 PM EDT THIS EXAM WAS PERFORMED AT [facility] NAME: CINDY GRECO : 1995 SEX: F Accession Number: [id number] ORDERING PHYSICIAN: JAIDA RITTER REFERRING PHYSICIAN: ALFREDO DONALDSON Coding ----- --------- Procedures [id number]: Ultrasound, uterus, real time with image documentation, and maternal evaluation plus detailed anatomic examination, transabdominal approach;single or first gestation 42856: Transvaginal Ultrasound (OB) 65434: Echocardiography, , cardiovascular system, real time with image documentation (2D), with or without M-mode recording Indication ----- --------- Screening for Anatomic Survey, Screening for cervical length, Screening for congenital cardiac abnormality, resulting from assisted reproductive technology, Gestational diabetes, Obesity in , Depression, Supervision of high risk (LT Choroid plexus cyst) History ----- --------- OB History 2. Para 0 [id number] Maternal Assessment ----- --------- Physical Exam Height [...] 0 lb 14 oz EFW by [place] ([id number]) Head / Face / Neck Biometry: Cephalic index 0.69 <1% [employer]olaides Diesel Powerplant Supervisor 6.4 mm CM 6.2 mm 82% Nicolaides [...] Thorax 4-chamber view. RVOT view. LVOT view. 3-uouyhl-tseplad view. Diaphragm. Abdomen Cord insertion. Spine: Cervical [...] suboptimal RVOT view suboptimal 3-vessel view normal 1-xdwuwl-tdzgazu view suboptimal Aortic arch view normal Ductal [...] today's exam. Recommendations ----- --------- Please see [facility] documentation from today. The patient is [...] - 02/09/2025 THIS EXAM WAS PERFORMED AT [facility] NAME: CINDY GRECO : 1995 SEX: F Accession Number: [id number] ORDERING PHYSICIAN: JAIDA RITTER REFERRING PHYSICIAN: ALFREDO DONALDSON Coding ----- --------- Procedures 63358: Ultrasound, uterus, real time with imagedocumentation, and maternal evaluation plus detailed anatomic examination, transabdominalapproach;single or first gestation 12498: Transvaginal Ultrasound (OB) 99022: Echocardiography, , cardiovascular system, real timewith image documentation (2D), with or without M-mode recording Indication ----- --------- Screening for Anatomic Survey, Screening for cervical length, Screeningfor congenital cardiac abnormality, resulting from assisted reproductive technology, Gestational diabetes, Obesity inpregnancy, Depression, Supervision of high risk (LT Choroid plexus cyst) History ----- --------- OB History 2. Para 0 [id number] Maternal Assessment ----- --------- Physical Exam Height [...] 0 lb 14 oz EFW by [place] ([id number]) Head / Face / Neck Biometry: Cephalic index 0.69 <1% Nicolaides [employer] Powerplant Supervisor 6.4 mm CM 6.2 mm 82% Nicolaides [...] Thorax 4-chamber view. RVOT view. LVOT view. 9-mzlfpd-nnfvwvufuuv. Diaphragm. Abdomen Cord insertion. Spine: Cervical spine. [...] suboptimal RVOT view suboptimal 3-vessel view normal 6-xmmiua-kvohwnv view suboptimal Aortic arch view normal Ductal [...] byprimary OB provider unless otherwise specified by [facility]. Results forwarded to ordering provider so they can follow up with thepatient as necessary. The copy-to physician of this order is ALFREDO Palacios The ordering physician of this order is JAIDA Vicente us Alfredo Donaldson DO [facility] US PROCEDURES Final Resul t * Pap Smear (01/20/2025 12:00 AM EDT) Swab Cervical swab / Unknown us Mendoza Nurse [facility] LAB CYTOLOGY ORDERABLES Final Result EXTERNAL LAB from Last 3 Months or Most Recently Relevant to Health Maintenance Additional Health Concerns Active Problems Noted Date Diagnosed Date OB Reminders 11/26/2024 Insurance [facility]
--- OUTSIDE RECORDS SUMMARY | 2025-04-26 17:18 | XMS_ITS | Encounter Summary ---
Author Organization [facility] tem Address [facility]P43025 [address] [place] [address] Care Team Providers Care Spirits Model Name Role Phone Unavailable Primary Care Provider Unavailabl e Encounter Details Date Type Department Care Team (Late st Contact Info) Description 01/27/2025 Orders Only Maternal- Medicine at [facility] [address] [place] [phone] Sintia Martinez, GENERATOR WORKER-NEWBORN PHOTOGRAPHER [address] [place] [address] Social History Tobacco Use Types Packs/Day Years [...] 05/12/2025 8:00 AM EDT Appointment Maternal Medicine [place] [address] [facility] [address] [place] [address] 05/23/2025 1:30 PM EDT Telemedicine Maternal- Medicine at [facility] [address] [place] [address] Devika Pulido, PAMoniqueC [address] [address] documented as of this encounter Visit Diagnoses Not on filedocumented in this encounter Additional Health Concerns Assessment Noted Time PHQ-9 Depression Total Score: 2 07/03/20 16 9:00 AM EDT documented as of this encounter
--- OUTSIDE RECORDS SUMMARY | 2025-04-26 17:18 | XMS_ITS | Encounter Summary ---
Author Organization [facility] tem Address [id number] [address] [place] [address] Care Team Providers Care Ocean Import Representative Name Role Phone Unavailable Primary Care Provider Unavailabl e Encounter Details Date Type Department Care Team (Late st Contact Info) Description 04/20/2025 Telephone Maternal- Medicine at [facility] [address] [place] [phone] Aissatou Stoner, RN Social History Tobacco Use Types Packs/Day Years Used Date Smoking Tobacco: Former Cigarettes 2 - 2010 Smokeless Tobacco: Never Alcohol Use Standard [...] encounter Miscellaneous Notes * Telephone Encounter - Aissatou Stoner RN - 04/20/2025 3:03 PM EDT Left message for patient that M provider reviewed blood sugar logs and no changes are needed at this time. Call back number provided. documented in this encounter Plan of Treatment Upcoming Encounters Date Type Department Care Team (Late st Contact Info) Description 05/12/2025 8:00 AM EDT Appointment Maternal Medicine [place] [address] [facility] [address] [place] [phone] 05/23/2025 1:30 PM EDT Telemedicine Maternal- Medicine at [facility] [address] [place] [phone] Devika Pulido, PAMoniqueC [address] [address] documented as of this encounter Visit Diagnoses Not on filedocumented in this encounter Additional Health Concerns Assessment Noted Time PHQ-9 Depression Total Score: 2 07/03/20 16 9:00 AM EDT documented as of this encounter
--- OUTSIDE RECORDS SUMMARY | 2025-04-26 17:18 | XMS_ITS | Encounter Summary ---
Author Organization [facility] tem Address [facility][id number] [address] [place] [address] Care Team Providers Care Dewatering Filtering Supervisor Name Role Phone Unavailable Primary Care Provider Unavailabl e Encounter Details Date Type Department Care Team (Latest Contact Info) Description 04/25/2025 Travel Social History Tobacco Use Types Packs/Day [...] 05/12/2025 8:00 AM EDT Appointment Maternal Medicine [place] [address] [facility] [address] [place] [address] 05/23/2025 1:30 PM EDT Telemedicine Maternal- Medicine at [facility] [address] [place] [phone] Devika Pulido, JASON [address] [address] documented as of this encounter Visit Diagnoses Not on filedocumented in this encounter Additional Health Concerns Assessment Noted Time PHQ-9 Depression Total Score: 2 07/03/20 16 9:00 AM EDT documented as of this encounter
--- OUTSIDE RECORDS SUMMARY | 2025-04-26 17:18 | XMS_ITS | Encounter Summary ---
Author Organization [facility] Address [address] [facility] [place] [address] Care Team Providers Care Laundry Machine Mechanic Name Role Phone Unavailable Primary Care Provider Unavailabl e Encounter Details Date Type Department Care Team (Late Contact Info) Description 04/18/2025 Bamboo flowsheet [facility] [address] [facility] [place] [address] Cain Donaldson DO [address] [place] [address] Dr Kelsey Prieto, [place] [address] Social History Tobacco Use Types Packs/Day Years [...] [facility] OB [address] [facility] [place] [address] Christy Schwartz PA [address] [facility] [address] [place], [place] [phone] documented as of this encounter Goals Goal Patient Goal Type Associated Problems Recent Progress Patient-Stated? Author Reminders Care Plan OB Reminders No Open Scheduling, Background documented as of this encounter Visit Diagnoses Not on filedocumented in this encounter Additional Health Concerns Active Problems Noted Date Diagnosed Date OB Reminders 11/26/2024 documented as of this encounter
--- OUTSIDE RECORDS SUMMARY | 2025-04-26 17:18 | XMS_ITS | Encounter Summary ---
Author Organization [facility] Address [address] [facility] [place] [address] Care Team Providers Care Counter Former Name Role Phone Unavailable Primary Care Provider Unavailabl e Encounter Details Date Type Department Care Team (Late st Contact Info) Description 04/14/2025 Abstract [facility] OB [address] [facility] [phone] Yue Dumont MA Social History Tobacco Use [...] Description 05/03/2025 8:50 AM EDT Routine [facility] OB [address] [place] [address] [place] [phone] Christy Schwartz PA [address] [place] [address] [place] [address] documented as of this encounter Goals Goal Patient Goal Type Associated Problems Recent Progress Patient-Stated? Author Reminders Care Plan OB Reminders No Open Scheduling, Background documented as of this encounter Visit Diagnoses Not on filedocumented in this encounter Additional Health Concerns Active Problems Noted Date Diagnosed Date OB Reminders 11/26/2024 documented as of this encounter
--- OUTSIDE RECORDS SUMMARY | 2025-04-26 17:18 | XMS_ITS | Encounter Summary ---
Author Organization [facility] tem Address [id number] [address] [place] [address] Care Team Providers Care Stitcher Special Machine Name Role Phone Unavailable Primary Care Provider Unavailabl e Encounter Details Date Type Department Care Team (Late st Contact Info) Description 04/25/2025 Telephone Maternal- Medicine at [facility] [address] [place] [phone] Giselle Cheng, ERI Social History Tobacco Use Types Packs/Day Years [...] encounter Miscellaneous Notes * Telephone Encounter - Giselle Cheng CMA - 04/25/2025 8:35 AM EDT CONDENSER TUBE TENDER CALLED PATIENT. NO ANSWER. LEFT VM ASKING THE PATIENT TO EMAIL US HER BLOOD GLUCOSE LOGS FORHER UPCOMING APPOINTMENT WITH DEVIKA MARTINEZ. documented in this encounter Plan of Treatment Upcoming Encounters Date Type Department Care Team (Late st Contact Info) Description 05/12/2025 8:00 AM EDT Appointment Maternal Medicine [place] [address] [facility] 4 [place] [address] 05/23/2025 1:30 PM EDT Telemedicine Maternal- Medicine at [facility] [address] [place] [phone] Devika Pulido, PAMoniqueC [address] [address] documented as of this encounter Visit Diagnoses Not on filedocumented in this encounter Additional Health Concerns Assessment Noted Time PHQ-9 Depression Total Score: 2 07/03/20 16 9:00 AM EDT documented as of this encounter
[2025-04-26 17:50] VITALS: BP 123/73; PULSE 83
== END 2025-04-26 18:12 | disposition home or self-care (01) ==
LOC: US 17:14 → FBC 17:15
PROVIDERS: PCP Obstetrics & Gynecology; Visit Provider Nurse Practitioner Family
DX: O24.419 Gestational diabetes mellitus in pregnancy, unspecified control (principal); Z3A.31 31 weeks gestation of pregnancy
CPT/HCPCS: 76818

== ENCOUNTER 2025-04-29 17:05 | Outpatient (OUT) | payer BC, SELFPAY ==
--- OUTSIDE RECORDS SUMMARY | 2025-01-21 11:10 | XMS_ITS | Continuity of Care Document ---
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 [address] [place] [address], [id number] , [place]. tel: [phone] [facility], [address] [place] [address], [id number] , [place] tel: [phone] [facility] Encounter for screening for respiratory tuberculosis 5 Visci DO Miguel. [address] [place] [address], [id number] , [place]. tel:[phone] [facility], [address] [place] [address], [id number] , [place] tel: [phone] [facility] No Information 4 Visci DO Miguel. [address] [place] [address], [id number] , [place]. tel: [phone] [facility], [address] [place] [address], [id number] , [place] tel:[phone] [facility] Lab Draw (chief complaint) Other specified disorders of pancreatic internal secretionSubclinical iodine-deficiency hypothyroidismEncount er for screening for other viral diseasesEncounter for screening for other infectious disease 4 Cynthia White. [address] [place], [place], 772843268 , [place]. tel: [phone] [facility], [address] [place], [place], 987070490 , [place] tel: [phone] [facility] lab draw (chief complaint) Encounter for screening for other viral diseases 4 Cynthia White. [address] [place], [place], 227598073 , [place]. tel: [phone] [facility], [address] [place], [place], 966304423 , [place] tel: [phone] [facility] No Information 4 Cynthia White. [address] [place], [place], 332021506 , [place]. tel: [phone] [facility], [address] [place], [place], 024339745 , [place] tel: [phone] [facility] Encounter for screening for respiratory tuberculosis 4 Cynthia White. [address] [place], [place], 353807152 , [place]. tel: [phone] [facility], [address] [place], [place], 191120648 , [place] tel: [phone] [facility] Lab draw (chief complaint) Blood test prior to procedure 4 Cynthia White. [address] [place], [place], 396185865 , [place]. tel: [phone] Referring Provider: Tenisha Leon [place]. [facility], [address] [place], [place], 619005494 , [place] tel: [phone] [facility] No Information 3 Cynthia White. [address] [place], [place], 742205779 , [place]. tel: [phone] [facility], [address] [place], [place], 749623786 , [place] tel: [phone] [facility] COVID Test (chief complaint) Encounter for screening for COVID-19 3 Cynthia White. [address] [place], [place], 125685404 , [place]. tel: [phone] [facility], [address] [place], [place], 455794977 , [place] tel: [phone] [facility] Lab Draw (chief complaint) Encounter for antibody response examination 3 Cynthia White. [address] [place], [place], 870087807 , [place]. tel: [phone] [facility], [address] [place] [address], [id number] , [place] tel: [phone] [facility] lab (chief complaint) Other specified disorders of pancreatic internal secretion 3 Cynthia White. [address] [place], [place], 554810300 , [place]. tel: [phone] [facility], [address] [place] [address], [id number] , [place] tel: [phone] [facility] Lab draw (chief complaint) Blood test prior to procedure 3 Cynthia White. [address] [place], [place], 878033025 , [place]. tel: [phone] [facility], [address] [place] [address], [id number] , [place] tel: [phone] [facility] lab draw (chief complaint) Endocrine disorder 3 Cynthia White. [address] [place], [place], 954636832 , [place]. tel: [phone] [facility], [address] [place] [address], [id number] , [place] tel: [phone] [facility] Encounter for screening for COVID-19 3 Visci DO Miguel. [address] [place], [place], 590685632 , [place]. tel: [phone] [facility], [address] [place], [place], 394373172 , [place] tel: [phone] [facility] Lab draw (chief complaint) Blood test prior to procedureEncounter for screening for COVID-19 3 Visci DO Miguel. [address] [place], [place], 763010059 , [place]. tel: [phone] [facility], [address] [place], [place], 450107358 , [place] tel: [phone] [facility] No Information 3 Visci DO Miguel. [address] [place], [place], 025278919 , [place]. tel: [phone] [facility], [address] [place], 058795887 , [place] tel: [phone] [facility] No Information 3 Visci DO Miguel. [address] [place], [place], 852660681 , [place]. tel: [phone] [facility], [address] [place], [place], 574839132 , [place] tel: [phone] [facility] No Information 2 Visci DO Miguel. [address] [place], [place], 663958196 , [place]. tel: [phone] [facility], [address] [place], [place], 119750534 , [place] tel: [phone] [facility] No Information 2 Visci DO Miguel. [address] [place], [place], 491244603 , [place]. tel: [phone] [facility], [address] [place], [place], 425655444 , [place] tel: [phone] [facility] No Information 2 Visci DO Miguel. [address] [place], [place], 728634757 , [place]. tel: [phone] [facility], [address] [place], [place], 823261843 , [place] tel: [phone] [facility] Encounter for screening for respiratory tuberculosis 2 Visci DO Miguel. [address] [place], [place], 778917965 , [place]. tel: [phone] [facility], [address] [place], [place], 821521724 , [place] tel: [phone] [facility] Encounter for screening for respiratory tuberculosis 2 Visci DO Miguel. [address] [place], [place], 971176896 , [place]. tel: [phone] [facility], [address] [place], [place], 327060002 , [place] tel: [phone] [facility] Encounter for screening for respiratory tuberculosis 2 Visci DO Miguel. [address] [place], [place], 881367073 , [place]. tel: [phone] [facility], [address] [place], [place], 888432088 , [place] tel: [phone] [facility] No Information 1 Visci DO Miguel. [address] [place], [place], 578189349 , [place]. tel: [phone] [facility], [address] [place], [place], 228925404 , [place] tel: [phone] [facility] No Information 1 Visci DO Miguel. [address] [place], [place], 437103575 , [place]. tel: [phone] [facility], [address] [place], [place], 994874084 , [place] tel: [phone] [facility] No Information 1 Visci DO Miguel. [address] [place], [place], 590533071 , [place]. tel:[phone] Family History Family Member Type Diagnosis Age [...] Record Payers Payer name Insurance type Covered green party ID Authoriza tion(s) [place] [employer] [id number] [employer] [employer] [id number] [place] [employer] [id number] [place] [employer] [id number] [place] [employer] [id number] [place] [employer] [id number] [place] [employer] [id number] Social History Type Description Quantity Date Captured Comments Alcohol Use Details Unknown Caffeine Use Details Unknown Tobacco Use Status No Information Smoking Status No Information Sex Female Sexual Orientation Lesbian, lopez or homosexual Gender Identity Female Chief Complaint And Reason For Visit No Information Reason For Referral Reason For Referral No Information Plan Of Treatment Date Type Action Status Goal Influenza vaccine. Due on Oc due Goal Tdap due Goal PRAPARE ASSESSMENT. Due on M due Goal HPV. Due on due Goal Unhealthy drug use screening . Due on due Goal RLP. Due on due Goal Tdap Vaccine. Due on 2031 due Goal Hep A. Due on du e Goal Depression screening. Due on due Goal Hepatitis C screening. Due o n due Goal Depression screening. Due on due Goal RLP. Due on due Goal Tdap due Goal Hepatitis C screening. Due o n due Goal Unhealthy drug use screening . Due on due Goal Hep A. Due on du e Goal Influenza vaccine. Due on Oc due Goal Tdap Vaccine. Due on 2031 [...] Goal PRAPARE ASSESSMENT. Due on due Goal Unhealthy drug use screening . Due on due Goal Hep A. Due on du e Goal PRAPARE ASSESSMENT. Due on due Goal Hepatitis C screening. Due o n due Goal Influenza vaccine. Due on due Goal Depression screening. Due on due Goal Tdap due Goal HPV. Due on due Goal RLP. Due on due Goal Tdap Vaccine. Due on 2031 due Goal Tdap due Goal RLP. Due [...] 2031 due Goal PRAPARE ASSESSMENT. Due on due Goal Depression screening. Due on due Goal PRAPARE ASSESSMENT. Due on S due Goal Influenza vaccine. Due on due Goal RLP. Due on due Goal Tdap Vaccine. Due on 2031 due Goal Depression screening. Due on due Goal PAP. Due on due Goal Tdap due Goal Hep A. Due on du e Goal PRAPARE ASSESSMENT. Due on A due [...] Goal PRAPARE ASSESSMENT. Due on due Goal Influenza vaccine. Due on due Goal Depression screening. Due on due Goal Hep A. Due on du e Goal Tdap due Goal Tdap due Goal Depression screening. Due on due Goal Tdap Vaccine. Due on 2031 due Goal Hep A. Due on du e Goal PRAPARE ASSESSMENT. Due on due Goal PAP. Due on due Goal RLP. Due on due Goal Influenza vaccine. Due on due Goal Hep A. Due on du e Goal Influenza vaccine. Due on Ma due Goal RLP. Due on due Goal Tdap Vaccine. Due on 2031 due Goal Tdap due Goal PAP. Due on due Goal PRAPARE ASSESSMENT. Due on M due Goal Depression screening. Due on due Goal PAP. Due on due Goal Influenza vaccine. Due on due Goal Depression screening. Due on due Goal Tdap due Goal PRAPARE ASSESSMENT. Due on M due Goal Hep A. Due on du e Goal RLP. Due on due Goal Tdap Vaccine. Due on 2031 due Goal Influenza vaccine. Due on due Goal Tdap due Goal PRAPARE ASSESSMENT. Due on M due Goal PAP. Due on due Goal [...] on due Goal Tdap. Due on due History Of Present Illness [...]
--- OUTSIDE RECORDS SUMMARY | 2025-04-18 10:10 | XMS_ITS | Encounter Summary ---
Author Organization [facility] Address [address] [place] [address] Care Team Providers Care Real Estate Operations Manager Name Role Phone Unavailable Primary Care Provider Unavailabl e Reason for Visit * Reason Comments Routine Visit Encounter Details Date Type Department Care Team (Late st Contact Info) Description 04/18/2025 10:10 AM EDT Routine [facility] OB [address] [facility] [place] [address] Cain Donaldson, DO [address] [facility] [place] [address] Third trimester ([facility]); 30 weeks gestation of ([facility]) Social History Tobacco Use Types Packs/Day Years [...] to check FSBS. Blood Glucose Monitoring Suppl ([employer] Glucometer) w/Device kit 1 kit, Does not [...] Medical History: Diagnosis Date SAB (spontaneous ) ([facility]) 10/2021 HISTORY PAST MEDICAL HISTORY SOCIAL HISTORY Past Medical History: Diagnosis Date SAB (spontaneous ) ([facility]) 10/2021 Social History Tobacco Use Smoking status: [...] nursing note reviewed. Exam conducted with a charter boat operator present. Vitals: There is no height or weight on file to calculate BMI. BP: No LMP recorded. Patient is . ASSESSMENT & PLAN ICD-10-CM 1. Third trimester ([facility]) Z34.93 2. 30 weeks gestation of ([facility]) Z3A.30 Return OB: Patient presents today for [...] AM EDT Routine [facility] BCP OB [address] [facility] [place] [address] Christy Schwartz PA [address] [place] [address] [place] [address] documented as of this encounter Goals Goal Patient Goal Type Associated Problems Recent Progress Patient-Stated? Author Reminders Care Plan OB Reminders No Open Scheduling, Background documented as of this encounter Procedures Procedure Name Priority Date/Time Associated Diagnosis Comments POCT URINALYSIS DIPSTICK Routine 04/18/2025 10:40 AM EDT Third trimester ([facility]) documented in this encounter Results * POCT [...] this encounter Visit Diagnoses Diagnosis Third trimester ([facility]) state, incidental 30 weeks gestation of ([facility]) documented in this encounter Additional Health Concerns Active Problems Noted Date Diagnosed Date OB Reminders 11/26/2024 documented as of this encounter
--- OUTSIDE RECORDS SUMMARY | 2025-04-25 11:30 | XMS_ITS | Encounter Summary ---
Author Organization [facility] tem Address [id number] [address] [place] [address] Care Team Providers Care Medical Record Librarians Teacher Name Role Phone Unavailable Primary Care Provider Unavailabl e Encounter Details Date Type Department Care Team (Late st Contact Info) Description 04/25/2025 11:30 AM EDT Telemedicine Maternal- Medicine at [facility] [address] [place] [phone] Devika Pulido, PAMoniqueC [address] [address] Insulin controlled gestational diabetes mellitus (GDM) in third trimester (Primary Dx) Social History Tobacco Use Types Packs/Day Years Used Date Smoking Tobacco: Former Cigarettes 2 2010 Smokeless Tobacco: Never Alcohol Use Standard [...] Progress Notes * Devika Pulido PA-C - 04/25/2025 11:30 AM EDT Maternal- Medicine Consultation VIDEO Patient is present at home, provider present at [facility] HISTORY OF PRESENT ILLNESS: Kevin Conley is a 29 y.o. female at 31w2d due on Estimated Date of Delivery: 06/25/25 complicated by prediabetes with early onset GDM, PCOS, Heterozygous Factor V Leiden, h/o bipolar, IVF . Patient is feeling well today. She denies contractions, vaginal bleeding, leaking fluid. She appreciates movement. Patient denies headache, visual symptoms, right upper abdominal pain, increasein edema, SOB, chest pain. Last week had right lower back pain start - presented to hospital and found to have have #2 kidney stones on left, #1 on right. She is following urology through [place]. Her pain and symptoms have improved, are essentially resolved currently. BG log review: F: 71-103, #2 >95 All post prandials under 140 except #1 at 156 when had [employer] Hi[employer]c when was having kidney stone flare up Denies any values <60 day or night There were no vitals taken for this visit. PAST OBSTETRICAL HISTORY: OB History 2 Para [...] each meal., Disp: , Rfl: blood-glucose meter [facility], 4 (four) times a day. Use to check blood sugar 4 times daily. Fasting in the morning, and 1 hour after each meal., Disp: , Rfl: cholecalciferol 1,000 units tablet, Take 1 tablet (1,000 Units total) by mouth in the morning., Disp: , Rfl: insulin glargine (LANTUS SOLOSTAR U-100 INSULIN) 100 unit/mL (3 mL) insulin pen, Inject 25 units subcutaneously in abdomen every evening, Disp: 15 mL, Rfl: 3 insulin syringe-needle U-100 (INSULIN SYRINGE) 0.5 mL 29 gauge x 1/2 syringe, by miscellaneous route., Disp: , Rfl: lancets (LANCETS,ULTRA THIN) [facility], Use to check blood sugar 4 times daily. Fasting in the morning, and 1 hour after each meal., Disp: , Rfl: PNV no.153/FA/om3/dha/epa/fish ( GUMMIES ORAL), Take 2 tablets by mouth in the morning., Disp: , Rfl: LABS: Lab Results Component Value Date TSH 3.31 11/24/2020 No components found for: UPRC Lab Results Component Value Date CREATININE 0.73 01/06/2016 BUN 12 01/06/2016 K 3.5 01/06/2016 CL 102 01/06/2016 CO2 28 01/06/2016 Lab Results Component Value Date ALT 19 11/12/2012 AST 17 11/12/2012 ALKPHOS 43 11/12/2012 Lab Results Component Value Date HGBA1C 4.9 12/23/2024 No components found for: POCA1C REVIEW OF SYSTEMS: Head and Neck: Negative for any dizziness and headaches. Cardiovascular and Respiratory System: Denies any chest pain, shortness of breath, and coughing. Abdominal and System: Denies any abdominal pain, nausea, vomiting, vaginal bleeding, and vaginaldischarge PHYSICAL EXAMINATION: Gen: NAD DISCUSSION Glucose goals in : Fasting 60 - 95: Mean fasting glucose values are important in managing diabetes in women because they provide overall glycemic estimate, and are predictive of increased fat mass in the women???s offspring. Increased fat mass has been shown to be associated with the development of childhood obesity, and diabetes. One hour postprandial 90 - 140: Postprandial measurements are important in management of diabetes in because they are associated with incidence of large for gestational age infants, and lower rates of delivery for cephalopelvic disproportion when well controlled. Discussed monitoring for hypogylcemia, signs/symptoms of hypoglycemia, and examples of treatment ofhypoglycemia ( rule). Discussed her current diet and her awareness of grams of carbohydrate per meal. Reviewed recommendations - 30g carbohydrate for breakfast, 45-60g carbohydrate for lunch and dinner, 15g carbohydrate for snacks, incorporating sufficient protein with each meal and ideally having half of plate be fruits and vegetables (with awareness of which fruits typically spike blood glucose). Encouraged her to be aware of carbohydrate intake and note which foods causing values above goal. Encouraged her on diet modifications. PLAN - Current blood glucose control: well controlled - Medication: - Lantus 25 units qhs - continue - Continue aspirin 81mg once daily - Labs - A1c: 4.9 on 12/23/24 - Baseline preeclampsia labs: CMP, Plts, urine P/C ratio - Anatomy survey with MFM - views remain incomplete - growth ultrasounds every 4 weeks after 28 weeks - Last growth done 04/14: EFW 1,528 g 54% , AC 69th, cephalic, placent posterior, mvp 6.5 - Recommend the following for testing, which can be done with primary OB: - NST twice weekly and ZITA once weekly at 32 weeks - Delivery recommendations : - Recommend delivery at [id number] - Discuss delivery if estimated weight is >4500g - Use 1/2 dose of insulin the night before her planned delivery - discussed with patient - Given GDMA2, can monitor patient's BG every 4hrs during latent labor, every 1 hr during active labor with goal BG to be less than 140mg/dl. Can use insulin sliding scale prn hyperglycemia. Once delivered, checked blood glucose fasting and 1hr post prandial, with goal of 100-130mg/dl for fasting and <180mg/dl for random or post prandial blood glucose levels - Obtain a 2-hour GTT 6-8 weeks . Also recommend yearly evaluation of blood glucose as patient is at an increased risk of developing diabetes later on - discussed with patient , particularly given her h/o prediabetes and early onset GDM - Recommend anticoagulation starting during hospitalization with Lovenox 40 mg daily, davi continued for 6 weeks Labor symptoms, preeclampsia sign/symptoms, and movement precautions reviewed. Follow up in 4 weeks with Maternal- Medicine. I asked her to keep sending values to us weekly by e-mail to: [email or web address] or by fax to: [phone] Devika Pulido PA-C Maternal- Medicine Office phone: [phone] Devika Pulido PA-C 04/25/25 1145 documented in this encounter Plan of Treatment Upcoming Encounters Date Type Department Care Team (Late st Contact Info) Description 05/12/2025 8:00 AM EDT Appointment Maternal Medicine [place] [address] [facility] [address] [place] [address] 05/23/2025 1:30 PM EDT Telemedicine Maternal- Medicine at [facility] [address] [place] [address] Devika Pulido PA-C [address] [address] documented as of this encounter Visit Diagnoses Diagnosis Insulin controlled gestational diabetes mellitus (GDM) in third trimester- Primary documented in this encounter Additional Health Concerns Assessment Noted Time PHQ-9 Depression Total Score: 2 07/03/20 16 9:00 AM EDT documented as of this encounter
--- OUTSIDE RECORDS SUMMARY | 2025-04-29 17:07 | XMS_ITS | Clinical Summary ---
Author Organization [facility] Address [address] [place] [address] Care Team Providers Care Pulp Screen Operator Name Role Phone Unavailable Primary Care Provider Unavailabl e Encounters Date Type Department Care Team Description 02/08/2025 6:04 PM EDT - 02/08/2025 11:59 PM EDT Hospital Encounter [facility] [address] [place] [address] Discharge Disposition: Home or Self Care from [...] Cutoff Neural Tube Defects Risks 1:1030 < 1:71887 1:250 Comments: The risk of an open neural tube defect is less than the screening cut-off. This test was developed and its performance characteristics determined by [facility]. It has not been cleared or approved [...] LABORATORY Comment: (NOTE) Initial sample Performed By: [facility] [address] [place] [address] Cardiac Surgeon: Jose Joseph MD, PhD CLIA Number: [id number] 02/08/2025 6:07 PM EDT 02/08/2025 6:09 PM EDT Christy Schwartz PA-C CHEMISTRY ORDERABLES Final Resu lt [facility] [address] [place], [place] [address] [place] [address] [facility] [address] [phone] * Hepatitis C Antibody (12/23/2024 6:10 PM EST) Hepatitis C Ab NONREACTIVE NONREACTIVE 12/23/19 6:10 PM EST [facility] Comment: The hepatitis C procedure used in [...] ORDERABLES Fin al Result Performing Organization Address City/[facility]/ZIP Co de Phone Number [facility] [address] [place] [address], [facility] [phone] [employer] [address] [place] [address], [facility] [phone] * HIV Screen (12/23/2024 6:10 PM EST) HIV Ag/Ab NONREACTIVE NONREACTIVE 12/23/2024 6:10 PM EST [employer] Comment: No laboratory evidence of HIV infection. If acute HIV infection is suspected, consider testing for HIV-1 RNA. 12/23/2024 6:10 PM EST 12/23/2024 6:12 PM EST Cain Donaldson MD IMMUNOLOGY ORDERABLES Fin al Result Performing Organization Address [facility] Co de Phone Number [facility] [address] [place] [address], [facility] [phone] [employer] [address] [place] [address], [facility] [phone] from Last 3 Months or Most Recently Relevant to Health Maintenance Insurance
--- OUTSIDE RECORDS SUMMARY | 2025-04-29 17:07 | XMS_ITS | Encounter Summary ---
Author Organization [facility] Address [address] [place] [address] Care Team Providers Care Wood And Hardware Outfitter Name Role Phone Unavailable Primary Care Provider Unavailabl e Encounter Details Date Type Department Care Team (Late Contact Info) Description 04/19/2025 Clinisync Result Encounter [facility] External Department Unsolicited Alfredo Donaldson, DO [address] [facility] [address]eto, [place] [address] Social History Tobacco Use Types Packs/Day Years [...] AM EDT Routine [facility] BCP OB [address] [facility] [place] [phone] Christy Schwartz PA [address] [facility] [address] [place], [place] [address] documented as of this encounter Goals Goal [...] AM EDT Narrative 04/19/2025 9:06 [place] [address] Ultrasound Report Signed Patient: KEVIN WHITE MR#: [id number] : 1995 Acct:[id number] Age/Sex: 29 / F ADM Date: Loc: [facility] 254-[address]: Alfredo Donaldson D.O. Ordering Physician: Alfredo Donaldson D.O. Date of Service: 04/19/25 Procedure(s): US OB BPP w non-stress Accession Number(s): [id number] cc: Alfredo Donaldson D.O. [place] [address] Patient Name: KEVIN WHITE MRN: [id number] date: 1995 Sex: F Assigned Patient Location: LAB Current Patient Location: Accession/Order Number: [id number] Exam Date: 04/19/2025 09:00 Report Date: 04/19/2025 [...] Munson M.D. 04/19/2025 9:04 AM Dictation Location: [place] [address] Electronically authenticated by: [id number] Y Date: 04/19/2025 09:04 Dictated By: Justina Munson M.D. Signed By: 04/19/25905 DD/ 3 TD/TT: Supervisor Garage: Procedure Note Radiology, Radiologist, MD - 04/19/2025 [place] [address] Ultrasound Report Signed Patient: KEVIN WHITEMR#: [id number] : 1995Acct:[id number] Age/Sex: Date: Loc: [facility] 254- Attending Dr: Alfredo Donaldson D.O. Ordering Physician: Alfredo Donaldson D.O. Date of Service: 04/19/25 Procedure(s): US OB BPP w non-stress Accession Number(s): [id number] cc: Alfredo Donaldson D.O. [address] [place] [address] Patient Name: KEVIN WHITE MRN: [facility]:[id number] date: 1995 Sex: F Assigned Patient Location: LAB Current Patient Location: Accession/Order Number: [id number] Exam Date: 04/19/2025 09:00 Report Date: 04/19/2025 [...] Munson M.D. 04/19/2025 9:04 AM Dictation Location: [place] [address] Electronically authenticated by: [id number] Y Date: 509:04 Dictated By: Justina Munson M.D. Signed By:04/19/25905 DD/ 3 TD/TT: Supervisor Garage: us Alfredo Mendoza DO [facility] Final Result documented in this encounter Visit Diagnoses Not on filedocumented in this encounter Additional Health Concerns Active Problems Noted Date Diagnosed Date OB Reminders 11/26/2024 documented as of this encounter
--- OUTSIDE RECORDS SUMMARY | 2025-04-29 17:07 | XMS_ITS | Encounter Summary ---
Author Organization [facility] Address [address] [place] [address] Care Team Providers Care Laundry Superintendent Name Role Phone Unavailable Primary Care Provider Unavailabl e Encounter Details Date Type Department Care Team (Late st Contact Info) Description 04/19/2025 Results Follow-Up [facility] BCP OB [address] [facility] [place] [address] Mary Thorpe LPN [address] [place] [address] Social History Tobacco Use Types [...] OB [address] [facility] [address] Christy Schwartz PA [address] [facility] [address] [place], [place] [address] documented as of this encounter Goals Goal Patient Goal Type Associated Problems Recent Progress Patient-Stated? Author Reminders Care Plan OB Reminders No Open Scheduling, Background documented as of this encounter Visit Diagnoses Not on filedocumented in this encounter Additional Health Concerns Active Problems Noted Date Diagnosed Date OB Reminders 11/26/2024 documented as of this encounter
--- OUTSIDE RECORDS SUMMARY | 2025-04-29 17:07 | XMS_ITS | Encounter Summary ---
Author Organization [facility] Address [address] [place] [address] Care Team Providers Care Rubber Roller Grinder Name Role Phone Unavailable Primary Care Provider Unavailabl e Encounter Details Date Type Department Care Team (Late Contact Info) Description 04/19/2025 Clinisync Result Encounter NOMS External Department Unsolicited Alfredo Donaldson, DO [address] [facility] [address], [place] [address] Social History Tobacco Use Types Packs/Day Years [...] Routine [facility] BCP OB [address] [facility] [address] Christy Schwartz PA [address] [facility] [address] [place], [place] [address] documented as of this encounter Goals Goal [...] AM EDT Narrative 04/19/2025 8:52 AM EDT [address] [address] Ultrasound Report Signed Patient: KEVIN WHITE MR#: [id number] : 1995 Acct:[id number] Age/Sex: 29 / F ADM Date: Loc: [facility] 254-[address]: Alfredo Donaldson D.O. Ordering Physician: Alfredo Donaldson D.O. Date of Service: 04/19/25 Procedure(s): US renal BI Accession Number(s): [id number] cc: Alfredo Donaldson D.O. [address] [address] Patient Name: KEVIN WHITE MRN: [id number] date: 1995 Sex: F Assigned Patient Location: LAB Current Patient Location: Accession/Order Number: [id number] Exam Date: 04/19/2025 08:46 Report Date: 04/19/2025 [...] Munson M.D. 04/19/2025 8:49 AM Dictation Location: [place] [address] Electronically authenticated by: [id number] Y Date: 04/19/2025 08:49 Dictated By: Justina Munson M.D. Signed By: 04/19/25 0852 DD/ 0849 TD/TT: Vacuum Frame Operator: Procedure Note Radiology, Radiologist, MD - 04/19/2025 [place] [address] Ultrasound Report Signed Patient: KEVIN WHITEMR#: [id number] : 1995Acct:[id number] Age/Sex: Date: Loc: [facility] 254-[address]: Alfredo Donaldson D.O. Ordering Physician: Alfredo Donaldson D.O. Date of Service: 04/19/25 Procedure(s): US renal BI Accession Number(s): [id number] cc: Alfredo Donaldson D.O. The [place] [address] Patient Name: KEVIN WHITE MRN: [id number] date: 1995 Sex: F Assigned Patient Location: LAB Current Patient Location: Accession/Order Number: [id number] Exam Date: 04/19/2025 08:46 Report Date: 04/19/2025 [...] Munson M.D. 04/19/2025 8:49 AM Dictation Location: [place] [address] Electronically authenticated by: [id number] Y Date: 508:49 Dictated By: Justina Munson M.D. Signed By:04/19/25 0852 DD/ 0849 TD/TT: Vacuum Frame Operator: us Alfredo Mendoza DO [facility] Final Result documented in this encounter Visit Diagnoses Not on filedocumented in this encounter Additional Health Concerns Active Problems Noted Date Diagnosed Date OB Reminders 11/26/2024 documented as of this encounter
--- OUTSIDE RECORDS SUMMARY | 2025-04-29 17:07 | XMS_ITS | Encounter Summary ---
Author Organization [facility] Address [address] [place] [address] Care Team Providers Care Glue Bone Crusher Name Role Phone Unavailable Primary Care Provider [...] OB [address] [facility] [phone] Christy Schwartz PA [address] [facility] [place] [address] documented as of this encounter Goals Goal Patient Goal Type Associated Problems Recent Progress Patient-Stated? Author Reminders Care Plan OB Reminders No Open Scheduling, Background documented as of this encounter Visit Diagnoses Not on filedocumented in this encounter Additional Health Concerns Active Problems Noted Date Diagnosed Date OB Reminders 11/26/2024 documented as of this encounter
--- OUTSIDE RECORDS SUMMARY | 2025-04-29 17:07 | XMS_ITS | Encounter Summary ---
Author Organization [facility] Address [address] [place] [address] Care Team Providers Care C Unix Developer Name Role Phone Unavailable Primary Care Provider Unavailabl e Encounter Details Date Type Department Care Team (Late Contact Info) Description 04/22/2025 Abstract [facility] BCP OB [address] [facility] [place] [phone] Cain Donaldson DO [address] [place] [address] Dr [address] Prieto, [facility] [...] AM EDT Routine [facility] BCP OB [address] [facility] [place] [address] Christy Schwartz PA [address] [facility] [address] [place], [place] [address] documented as of this encounter Goals Goal Patient Goal Type Associated Problems Recent Progress Patient-Stated? Author Reminders Care Plan OB Reminders No Open Scheduling, Background documented as of this encounter Visit Diagnoses Not on filedocumented in this encounter Additional Health Concerns Active Problems Noted Date Diagnosed Date OB Reminders 11/26/2024 documented as of this encounter
--- OUTSIDE RECORDS SUMMARY | 2025-04-29 17:08 | XMS_ITS | Encounter Summary ---
Author Organization [facility] Address [address] [place] [address] Care Team Providers Care Creative Art Director Name Role Phone Unavailable Primary Care Provider Unavailabl e Encounter Details Date Type Department Care Team (Late Contact Info) Description 11/26/2024 Abstract [facility] BCP OB [address] [facility] [place] [phone] Cain Donaldson DO [address] [place] [address] Dr Kel[address] Prieto, [facility] Social History Tobacco Use Types Packs/Day [...] [facility] [place] [address] Christy Schwartz PA [address] [facility] [address] [place], [place] [address] documented as of this encounter Goals Goal Patient Goal Type Associated Problems Recent Progress Patient-Stated? Author Reminders Care Plan OB Reminders No Open Scheduling, Background documented as of this encounter Visit Diagnoses Not on filedocumented in this encounter Additional Health Concerns Active Problems Noted Date Diagnosed Date OB Reminders 11/26/2024 documented as of this encounter
--- OUTSIDE RECORDS SUMMARY | 2025-04-29 17:08 | XMS_ITS | Encounter Summary ---
Author Organization [facility] tem Address [id number] [address] [place] [address] Care Team Providers Care Spray Booth Operator Name Role Phone Unavailable Primary Care Provider Unavailabl e Encounter Details Date Type Department Care Team (Late st Contact Info) Description 01/27/2025 Orders Only Maternal- Medicine at [facility] [address] [place] [phone] Sintia Martinez, INSTALLATION COORDINATOR-SALES ORDER COORDINATOR [address] [place] [address] Social History Tobacco Use Types Packs/Day Years [...] 05/12/2025 8:00 AM EDT Appointment Maternal Medicine [place] [address] [facility] 4 [place] [address] 05/23/2025 1:30 PM EDT Telemedicine Maternal- Medicine at [facility] [address] [place] [address] Devika Pulido, PAMoniqueC [address] [address] documented as of this encounter Visit Diagnoses Not on filedocumented in this encounter Additional Health Concerns Assessment Noted Time PHQ-9 Depression Total Score: 2 07/03/20 16 9:00 AM EDT documented as of this encounter
--- OUTSIDE RECORDS SUMMARY | 2025-04-29 17:08 | XMS_ITS | Encounter Summary ---
Author Organization [facility] Address [address] [place] [address] Care Team Providers Care Golf Caddie Name Role Phone Unavailable Primary Care Provider Unavailabl e Encounter Details Date Type Department Care Team (Late Contact Info) Description 01/10/2025 Abstract [facility] BCP OB [address] [facility] [place] [address] Cain Donaldson DO [address] [place] [address] Dr Kelsey Prieto, [facility]11 Social History Tobacco Use Types Packs/Day Years [...] [address] [facility] [place] [address] Christy Schwartz PA [address] [facility] [address] [place], [place] [address] documented as of this encounter Goals Goal Patient Goal Type Associated Problems Recent Progress Patient-Stated? Author Reminders Care Plan OB Reminders No Open Scheduling, Background documented as of this encounter Visit Diagnoses Not on filedocumented in this encounter Additional Health Concerns Active Problems Noted Date Diagnosed Date OB Reminders 11/26/2024 documented as of this encounter
--- OUTSIDE RECORDS SUMMARY | 2025-04-29 17:08 | XMS_ITS | Encounter Summary ---
Author Organization [facility] Address [address] [place] [address] Care Team Providers Care Pharmacy Delivery Driver Name Role Phone Unavailable Primary Care Provider Unavailabl e Encounter Details Date Type Department Care Team (Late Contact Info) Description 12/24/2024 Abstract [facility] BCP OB [address] [facility] [place] [phone] Cain Donaldson DO [address] [place] [address] Dr Kel[address] Prieto, [facility]11 Social History Tobacco Use Types Packs/Day [...] AM EDT Routine [facility] BCP OB [address] [facility] [place] [address] Christy Schwartz PA [address] [facility] [address] [place], [place] [address] documented as of this encounter Goals Goal Patient Goal Type Associated Problems Recent Progress Patient-Stated? Author Reminders Care Plan OB Reminders No Open Scheduling, Background documented as of this encounter Visit Diagnoses Not on filedocumented in this encounter Additional Health Concerns Active Problems Noted Date Diagnosed Date OB Reminders 11/26/2024 documented as of this encounter
--- OUTSIDE RECORDS SUMMARY | 2025-04-29 17:08 | XMS_ITS | Encounter Summary ---
Author Organization [facility] tem Address [id number] [address] [place] [address] Care Team Providers Care Rn Pediatric Icu Name Role Phone Unavailable Primary Care Provider Unavailabl e Encounter Details Date Type Department Care Team (Late st Contact Info) Description 04/25/2025 Telephone Maternal- Medicine at [facility] [address] [place] [phone] Giselle Cheng, ERI Social History Tobacco Use [...] Cheng CMA - 04/25/2025 8:35 AM EDT PHONOGRAPH NEEDLE TIP MAKER CALLED PATIENT. NO ANSWER. LEFT VM ASKING THE PATIENT TO EMAIL US HER BLOOD GLUCOSE LOGS FORHER UPCOMING APPOINTMENT WITH DEVIKA MARTINEZ. documented in this encounter Plan of Treatment Upcoming Encounters Date Type Department Care Team (Late st Contact Info) Description 05/12/2025 8:00 AM EDT Appointment Maternal Medicine [place] [address] [facility] 4 [place] [address] 05/23/2025 1:30 PM EDT Telemedicine Maternal- Medicine at [facility] [address] [place] [phone] Devika Pulido, PAMoniqueC [address] [address] documented as of this encounter Visit Diagnoses Not on filedocumented in this encounter Additional Health Concerns Assessment Noted Time PHQ-9 Depression Total Score: 2 07/03/20 16 9:00 AM EDT documented as of this encounter
--- OUTSIDE RECORDS SUMMARY | 2025-04-29 17:08 | XMS_ITS | Encounter Summary ---
Author Organization [employer] [facility] tem Address [id number] [address] [place] [address] Care Team Providers Care Grill Attendant Name Role Phone Unavailable Primary Care Provider [...] 05/12/2025 8:00 AM EDT Appointment Maternal Medicine [place] [address] [facility] 4 [place] [address] 05/23/2025 1:30 PM EDT Telemedicine Maternal- Medicine at [facility] [address] [place] [phone] Devika Pulido, JASON [address] [address] documented as of this encounter Visit Diagnoses Not on filedocumented in this encounter Additional Health Concerns Assessment Noted Time PHQ-9 Depression Total Score: 2 07/03/20 16 9:00 AM EDT documented as of this encounter
--- OUTSIDE RECORDS SUMMARY | 2025-04-29 17:08 | XMS_ITS | Encounter Summary ---
Author Organization [facility] Address [address] [facility] [place] [address] Care Team Providers Care Business And Financial Counsel Name Role Phone Unavailable Primary Care Provider Unavailabl e Encounter Details Date Type Department Care Team (Late Contact Info) Description 04/18/2025 Bamboo flowsheet [facility] BCP OB [address] [facility] [place] [address] Cain Donaldson DO [address] [place] [address] Dr Kelsey Prieto, [place] [address] Social History Tobacco Use Types Packs/Day Years [...] [address] [facility] [place] [address] Christy Schwartz PA [address] [facility] [address] [place], [place] [address] documented as of this encounter Goals Goal Patient Goal Type Associated Problems Recent Progress Patient-Stated? Author Reminders Care Plan OB Reminders No Open Scheduling, Background documented as of this encounter Visit Diagnoses Not on filedocumented in this encounter Additional Health Concerns Active Problems Noted Date Diagnosed Date OB Reminders 11/26/2024 documented as of this encounter
--- OUTSIDE RECORDS SUMMARY | 2025-04-29 17:08 | XMS_ITS | Encounter Summary ---
Author Organization [facility] Address [address] [facility] [place] [address] Care Team Providers Care Branch Service Representative Name Role Phone Unavailable Primary Care Provider Unavailabl e Encounter Details Date Type Department Care Team (Late st Contact Info) Description 03/18/2025 Abstract N[facility] OB [address] [place] [phone] Yue Dumont MA Social History Tobacco Use [...] 8:50 AM EDT Routine NOMS [facility] OB [address] [place] [address] [place] [phone] Christy Schwartz PA [address] [place] [address] [place] [address] documented as of this encounter Goals Goal Patient Goal Type Associated Problems Recent Progress Patient-Stated? Author Reminders Care Plan OB Reminders No Open Scheduling, Background documented as of this encounter Visit Diagnoses Not on filedocumented in this encounter Additional Health Concerns Active Problems Noted Date Diagnosed Date OB Reminders 11/26/2024 documented as of this encounter
--- OUTSIDE RECORDS SUMMARY | 2025-04-29 17:08 | XMS_ITS | Encounter Summary ---
Author Organization [facility] Address [address] [place] [address] Care Team Providers Care Rolling Up Machine Operator Name Role Phone Unavailable Primary Care Provider Unavailabl e Encounter Details Date Type Department Care Team (Late Contact Info) Description 12/27/2024 Abstract [facility] BCP OB [address] [facility] [place] [phone] Cain Donaldson DO [address] [place] [address] Dr Kelsey Prieto, [facility] - [...] [address] [facility] [place] [address] Christy Schwartz PA [address] [facility] [address] [place], [place] [phone] documented as of this encounter Goals Goal Patient Goal Type Associated Problems Recent Progress Patient-Stated? Author Reminders Care Plan OB Reminders No Open Scheduling, Background documented as of this encounter Visit Diagnoses Not on filedocumented in this encounter Additional Health Concerns Active Problems Noted Date Diagnosed Date OB Reminders 11/26/2024 documented as of this encounter
--- OUTSIDE RECORDS SUMMARY | 2025-04-29 17:08 | XMS_ITS | Encounter Summary ---
Author Organization [facility] Address [address] [facility] [place] [address] Care Team Providers Care Customer Support Analyst Name Role Phone Unavailable Primary Care Provider Unavailabl e Encounter Details Date Type Department Care Team (Late st Contact Info) Description 04/14/2025 Abstract [facility] [address] [place] [phone] Yue Dumont MA Social History Tobacco Use [...] Description 05/03/2025 8:50 AM EDT Routine [facility] [address] [place] [address] [place] [phone] Christy Schwartz PA [address] [place] [address] [place] [address] documented as of this encounter Goals Goal Patient Goal Type Associated Problems Recent Progress Patient-Stated? Author Reminders Care Plan OB Reminders No Open Scheduling, Background documented as of this encounter Visit Diagnoses Not on filedocumented in this encounter Additional Health Concerns Active Problems Noted Date Diagnosed Date OB Reminders 11/26/2024 documented as of this encounter
--- OUTSIDE RECORDS SUMMARY | 2025-04-29 17:08 | XMS_ITS | Encounter Summary ---
Author Organization [facility] Address [address] [place] [place] [address] Care Team Providers Care Guide Delegate Name Role Phone Unavailable Primary Care Provider Unavailabl e Encounter Details Date Type Department Care Team (Late st Contact Info) Description 11/12/2024 Abstract [facility] [address] [facility] [place] [phone] Cain Donaldson DO [address] [facility] [address] Kelsey Prieto, [facility] Social History Tobacco Use Types Packs/Day [...] [facility] [phone] Christy Schwartz PA [address] [place], [place] [id number] documented as of this encounter Visit Diagnoses Not on filedocumented in this encounter
--- OUTSIDE RECORDS SUMMARY | 2025-04-29 17:08 | XMS_ITS | Encounter Summary ---
Author Organization [facility] Address [address] [place] [address] Care Team Providers Care Shank Skinner Name Role Phone Unavailable Primary Care Provider Unavailabl e Encounter Details Date Type Department Care Team (Late Contact Info) Description 04/18/2025 Clinisync Result Encounter [facility] External Department Unsolicited Cain Donaldson, DO [address] [facility] [address] Kelsey Prieto, [facility]11 Social History Tobacco Use Types [...] Routine [facility] [address] [place] [phone] Christy Schwartz PA [address] [facility] [address] [place], [place] [phone] documented as of this encounter Goals Goal Patient Goal Type Associated Problems Recent Progress Patient-Stated? Author Reminders Care Plan OB Reminders No Open Scheduling, Background documented as of this encounter Procedures Procedure Name Priority Date/Time Associated Diagnosis Comments [facility] GLUCOSE BLOOD Routine 04/18/2025 11: 43 PM EDT [facility] CREATININE Routine 04/18/2025 11:43 PM EDT ALL CBC WITH AUTO DIFF Routine 04/18/2025 11:43 PM EDT ALL BUN Routine 04/18/2025 11:43 PM EDT [facility] URINE MICROSCOPIC ONLY Routine 04/18/2025 9:05 PM EDT [facility] UA (CLEAN/CATCH) CASTABLES WORKER/MICRO IF IND. Routine 04/18/2025 9:05 PM EDT [facility] CREATININE URINE Routine 04/18/2025 9:05 PM EDT documented in this encounter Results * (ABNORMAL) [facility] CREATININE (04/18/2025 11:43 PM EDT) CREATININE 0.44(L) 0.55 - 1.02 mg/dL [facility]H EGFR-AF GAMBIAN >60 >=60 mL/min/1.7 3m 2 TBH TBH EGFR-NON AF GAMBIAN >60 >=60 mL/min/1.7 3m 2 [facility] 04/18/2025 [...] ALL BUN (04/18/2025 11:43 PM EDT) Pathologist [facility] BLOOD UREA NITROGEN 13.0 7.0 - 18.0 mg/dL TB 04/18/2025 11:4 3 PM EDT 04/18/2025 11:53 PM EDT Narrative [facility] - 04/19/2025 12:04 AM EDT [facility] Mendoza DO [facility] Final Result [facility] * (ABNORMAL) ALL CBC WITH AUTO DIFF (04/18/2025 11:43 PM EDT) [facility] TB WBC 8.0 4.0 - 11.0 10 [...] Narrative CLINISYNC - 04/18/2025 10:51 PM EDT [facility] Mendoza DO CLINISYNC Final Result [facility]DC TB [...] CLINISYNC [facility] * (ABNORMAL) [facility] UA (CLEAN/CATCH) CASTABLES WORKER/MICRO IF IND. (04/18/2025 9:05 PM EDT) COLOR [...]
--- OUTSIDE RECORDS SUMMARY | 2025-04-29 17:08 | XMS_ITS | Encounter Summary ---
Author Organization [facility] Address [address] [place] [address] Care Team Providers Care Over The Road Driver Name Role Phone Unavailable Primary Care Provider Unavailabl e Encounter Details Date Type Department Care Team (Late Contact Info) Description 04/17/2025 Clinisync Result Encounter [facility] External Department Unsolicited Cain Donaldson, DO [address] [facility] [address] Kelsey Prieto, [place] [address] Social History Tobacco Use Types Packs/Day Years [...] AM EDT Routine [facility] [address] [place] [phone] Christy Schwartz PA [address] [facility] [address] [place], [place] [phone] documented as of this encounter Goals Goal [...] us Cain Mendoza DO [facility] documented in this encounter Visit Diagnoses Not on filedocumented in this encounter Additional Health Concerns Active Problems Noted Date Diagnosed Date OB Reminders 11/26/2024 documented as of this encounter
--- OUTSIDE RECORDS SUMMARY | 2025-04-29 17:08 | XMS_ITS | Clinical Summary ---
Author Organization [facility] Address [address] [place] [address] Care Team Providers Care General Passenger Agent Name Role Phone Unavailable Primary Care Provider Unavailabl e Allergies No known active allergies Medications Alcohol Swabs (Alcohol Prep Pad) 70 % padsIndications: Elevated glucose tolerance test, resulting from in vitro fertilization, antepartum ([facility]) Apply 1 Pad topically Daily Use four times daily to check FSBS. 150 each 3 5 Active Blood Glucose Monitoring Suppl (D-Care Glucometer) w/Device kitIndications:E levated glucose tolerance test, resulting from in vitro fertilization, antepartum ([facility]) 1 kit Daily Use four times daily to check FSBS. In the morning prior to breakfast & 1 hour after each meal for a total of 4times daily. 1 kit 5 12/23/19 26 Active insulin syringe 29G X 1/2 0.5 mL miscIndications: Gestational diabetes mellitus (GDM), antepartum, gestational diabetes method of control unspecified ([facility]) Use 2 syringes in the morning for insulin dosage and 2 syringes in the Evening for insulin dosage. Total of 4 syringes daily needed. 120 each 5 5 Active insulin glargine (Lantus SoloStar) 100 UNIT/ML pen Inject under the skin Active Encounters Date Type Department Care Team Description 04/27/2025 Clinisync Result Encounter NOMS External Department Unsolicited Belgica Scherer NP 04/26/2025 Travel 04/22/2025 Abstract [facility] [address] [place] [address] Mendoza, Alfredo, DO 04/19/2025 Results Follow-Up [facility] OB [address] [place], [place] [address] [place] [place] [address] Maurilio MaryBELA 04/19/2025 Clinisync Result Encounter NOMS External Department Unsolicited Mendoza, Alfredo, DO 04/19/2025 Clinisync Result Encounter NOMS External Department Unsolicited Mendoza, Alfredo, DO 04/18/2025 10:10 AM EDT Routine [facility] [place] [facility] [place] [address] Mendoza, Alfredo, DO Third trimester ([facility]); 30 weeks gestation of ([facility]) 04/18/2025 Clinisync Result Encounter NOMS External Department Unsolicited Mendoza, Alfredo, DO 04/18/2025 Bamboo flowsheet [facility] [address] [place] [address] Mendoza, Alfredo, DO 04/17/2025 Clinisync Result Encounter NOMS External Department Unsolicited Mendoza, Alfredo, DO 04/14/2025 Abstract [facility] [address] [place] [address] Yue Dumont, SCOTTIE 04/11/2025 Clinisync Result Encounter NOMS External Department Unsolicited Mendoza, Alfredo, DO 04/11/2025 Clinisync Result Encounter NOMS External Department Unsolicited Mendoza, Alfredo, DO 04/05/2025 Clinisync Result Encounter NOMS External Department Unsolicited Mendoza, Alfredo, DO 03/30/2025 8:50 AM EDT Routine [facility] [address] [place] [address] Christy Schwartz PA Second trimester ([facility]); 27 weeks gestation of ([facility]); Gestational diabetes mellitus (GDM), antepartum, gestational diabetes method of control unspecified ([facility]); Factor 5 Leiden mutation, heterozygous ([facility]); Conceived by in vitro fertilization 03/30/2025 Bamboo flowsheet [facility] [address] [place] [address] Christy Schwartz PA 03/30/2025 Travel 03/18/2025 Abstract [facility] [address] [place] [address] Yue Dumont MA 03/03/2025 8:40 AM EDT Routine [facility] [address] [place] [address] Alfredo Donaldson, 23 weeks gestation of ([facility]); Second trimester ([facility]); induced hypertension, antepartum ([facility]); Insulin controlled gestational diabetes mellitus (GDM) during , antepartum ([facility]) 03/03/2025 Bamboo flowsheet [facility] [address] [place] [address] Alfredo Donaldson DO 03/02/2025 Travel 01/27/2025 Orders Only [facility] [address] [place] [address] Damaris Lopez LPN from Last 3 Months [...] Routine [facility] [address] [place] [address] Christy Schwartz PA [address] [address] Health Maintenance Due Date Last Done Comments HPV/Cotest 2023 Cervical Cancer Screening 01/21/2028 Pap Smear 01/21/2028 01/20/2025 Influenza Vaccine Completed 08/03/2024, 09/08/2023, 10/07/2022 Goals Goal Patient Goal Type Associated Problems Recent Progress Patient-Stated? Author Reminders Care Plan OB Reminders No Open Scheduling, Background Procedures Procedure Name Priority Date/Time Associated Diagnosis Comments US OB BPP W NON-STRESS 04/27/2025 8:07 AM EDT US OB BPP W NON-STRESS 04/19/2025 9:04 [...] 04/18/2025 9:05 PM EDT TBH UA (CLEAN/CATCH) CARBON SEQUESTRATION PLANT OPERATOR/MICRO IF IND. Routine 04/18/2025 9:05 PM EDT POCT URINALYSIS DIPSTICK Routine 04/18/2025 10:40 AM EDT Third trimester ([facility]) TBH TOTAL PROTEIN 24 HOUR URINE Routine [...] 9:08 AM EDT 23 weeks gestation of ([facility]) Second trimester ([facility]) US OB 14+ WEEKS ANATOMY SCAN 02/09/2025 4:57 PM EDT PAP SMEAR Routine 01/20/2025 12:00 AM EDT from Last 3 Months or Most Recently Relevant to Health Maintenance Results * US OB BPP W NON-STRESS (04/27/2025 8:07 AM EDT) Only the most recent of4 resultswithin the time period is included. Anatomical Region Laterality Modality Other 04/27/2025 8:07 AM EDT Narrative 04/27/2025 8:10 [place] [address] Ultrasound Report Signed Patient: KEVIN WHITE MR#: [id number] : 1995 Acct:[id number] Age/Sex: 29 / F ADM Date: 04/26/25 Loc: US Attending Dr: Belgica Scherer Ordering Physician: Belgica Scherer Date of Service: 04/26/25 Procedure(s): US OB BPP w non-stress Accession Number(s): [id number] cc: Belgica Scherer; Alfredo Donaldson D.O. [address] [address] Patient Name: KEVIN WHITE MRN: [id number] date: 1995 Sex: F Assigned Patient Location: [facility] Current Patient Location: Accession/Order Number: [id number] Exam Date: 04/27/2025 08:06 Report Date: 04/27/2025 08:07 At the request of: BELGICA SCHERER Procedure: US OB BPP w non-stress BIOPHYSICAL PROFILE: CLINICAL INFORMATION: GESTATIONAL DIABETES MELLITUS O24.419 COMPARISON: 04/19/2025 There is a single live intrauterine gestation in cephalic presentation. The reported gestational age is 31 weeks 4 days. The heart rate measures 121 beats per minute. FINDINGS: TONE: 1 or [...] greater than 2 cm [Y] 2/2 ZITA: 12.3 cm. This is in low-normal range. Total score: 8/8 US/US OB BPP w non-stress IMPRESSION: NORMAL BIOPHYSICAL PROFILE. Impression dictated by: Justina Munson M.D. 04/27/2025 8:07 AM Dictation Location: [place] [address] Electronically authenticated by: [id number] Y Date: 04/27/2025 08:07 Dictated By: Justina Munson M.D. Signed By: 04/27/25 0810 DD/ 08 TD/TT: Program Director [employer]: Procedure Note Radiology, Radiologist, MD - 04/27/2025 [place] [address] Ultrasound Report Signed Patient: KEVIN WHITEMR#: [id number] : 1995Acct:[id number] Age/Sex: 29 / FADM Date: 04/26/25 Loc: US Attending Dr: Belgica Scherer Ordering Physician: Belgica Scherer Date of Service: 04/26/25 Procedure(s): US OB BPP w non-stress Accession Number(s): [id number] cc: Belgica Scherer; Alfredo Donaldson D.O. The [address] [address] Patient Name: KEVIN WHITE MRN: [id number] date: 1995 Sex: F Assigned Patient Location: [facility] Current Patient Location: Accession/Order Number: [id number] Exam Date: 04/27/2025 08:06 Report Date: 04/27/2025 08:07 At the request of: BELGICA SCHERER Procedure: US OB BPP w non-stress BIOPHYSICAL PROFILE: CLINICAL INFORMATION: GESTATIONAL DIABETES MELLITUS O24.419 COMPARISON: 04/19/2025 There is a single live intrauterine gestation in cephalic presentation.The reported gestational age is 31 weeks 4 days. The heart ratemeasures 121 beats per minute. FINDINGS: TONE: 1 or [...] greater than 2 cm [Y] 2/2 ZITA: 12.3 cm. This is in low-normal range. Total score: 8/8 US/US OB BPP w non-stress IMPRESSION: NORMAL BIOPHYSICAL PROFILE. Impression dictated by: Justina Munson M.D. 04/27/2025 8:07 AM Dictation Location: [place] [address] Electronically authenticated by: [id number] Y Date: 508:07 Dictated By: Justina Munson M.D. Signed By:04/27/25809 DD/ 6 TD/TT: Program Director [employer]: us Belgica Scherer NP [facility] Final Resul t * US RENAL BI (04/19/2025 8:49 AM EDT) Anatomical Region Laterality Modality Other 04/19/2025 8:49 AM EDT Narrative 04/19/2025 8:52 AM EDT [address] [address] Ultrasound Report Signed Patient: KEVIN WHITE MR#: [id number] : 1995 Acct:[id number] Age/Sex: 29 / F ADM Date: Loc: [facility] [address]: Alfredo Donaldson D.O. Ordering Physician: Alfredo Donaldson D.O. Date of Service: 04/19/25 Procedure(s): US renal BI Accession Number(s): [id number] cc: Alfredo Donaldson D.O. [address] [address] Patient Name: KEVIN WHITE MRN: [id number] date: 1995 Sex: F Assigned Patient Location: LAB Current Patient Location: Accession/Order Number: [id number] Exam Date: 04/19/2025 08:46 Report Date: 04/19/2025 [...] Munson M.D. 04/19/2025 8:49 AM Dictation Location: [place] [address] Electronically authenticated by: [id number] Y Date: 04/19/2025 08:49 Dictated By: Justina Munson M.D. Signed By: 04/19/25 0852 DD/ 0849 TD/TT: Program Director [employer]: Procedure Note Radiology, Radiologist, - 04/19/2025 [place] [address] Ultrasound Report Signed Patient: KEVIN WHITEMR#: [id number] : 1995Acct:[id number] Age/Sex: Date: Loc: [facility] [address]: Alfredo Donaldson D.O. Ordering Physician: Alfredo Donaldson D.O. Date of Service: 04/19/25 Procedure(s): US renal BI Accession Number(s): [id number] cc: Alfredo Donaldson D.O. The [address] [address] Patient Name: KEVIN WHITE MRN: [facility]:[id number] date: 1995 Sex: F Assigned Patient Location: LAB Current Patient Location: Accession/Order Number: [id number] Exam Date: 04/19/2025 08:46 Report Date: 04/19/2025 [...] Munson M.D. 04/19/2025 8:49 AM Dictation Location: [place] [address] Electronically authenticated by: [id number] Y Date: 508:49 Dictated By: Justina Munson M.D. Signed By:04/19/25 0852 DD/ 0849 TD/TT: Program Director [employer]: us Alfredo Mendoza DO [facility] Final Result * (ABNORMAL) TBH GLUCOSE BLOOD (04/18/2025 11:43 PM EDT) GLUCOSE 108(H) 74 - 106 mg/dL TBH 04/18/2025 11:4 3 PM EDT 04/19/2025 12:07 AM EDT Narrative CLINISYNC - 04/19/2025 12:15 AM EDT us Alfredo Mendoza DO CLINIS[facility]NC Final Result [facility] TB * (ABNORMAL) TBH CREATININE (04/18/2025 11:43 PM EDT) Only the most recent of2 resultswithin the time period is included. Pathologist [facility] [place] CREATININE 0.44(L) 0.55 - 1.02 mg/dL TBH TB EGFR-AF [place] >60 >=60 mL/min/1.7 3m 2 TBH TB EGFR-NON AF [place] >60 >=60 mL/min/1.7 3m 2 TBH 04/18/2025 11:4 3 PM EDT 04/19/2025 12:48 AM EDT Narrative CLINISYNC - 04/19/2025 12:56 AM EDT us Alfredo Mendoza DO CLINIS[facility]NC Final Result [facility] * (ABNORMAL) ALL CBC WITH AUTO DIFF (04/18/2025 11:43 PM EDT) Only the most recent of2 resultswithin the time period is included. Pathologist [facility] [place] TB WBC 8.0 4.0 - 11.0 10 3/uL TBH TB RBC 3.61(L) 4.20 - 5.40 10 6/uL TBH TB HGB 10.8(L) 12.0 - 16.0 g/dL TB TB HCT 31.1(L) 36.0 - 48.0 % TB TB MCV 86.1 81.0 - 99.0 fL TB TB MCH 29.9 26.7 - 34.0 pg TBH TB MCHC 34.7 29.9 - 35.2 g/dL TB TB RDW 13.3 11.0 - 15.0 % TBH TBH PLT 178 150 - 450 10 3/uL TB TB MPV 10.4 9.5 - 13.5 fL [...] DO CLINISYNC Final Result Performing Organization Address City/[facility]/ZIP Co de Phone Number [facility] * ALL BUN (04/18/2025 11:43 PM EDT) Only the most recent of2 resultswithin the time period is included. Pathologist [facility] [place] BLOOD UREA NITROGEN 13.0 7.0 - 18.0 mg/dL TB 04/18/2025 11:4 3 PM EDT 04/18/2025 11:53 PM EDT Narrative CLINISYNC - 04/19/2025 12:04 AM EDT Alfredo Mendoza DO CLINIS[facility]NC Final Result [facility] * (ABNORMAL) TBH URINE MICROSCOPIC ONLY (04/18/2025 9:05 PM EDT) Pathologist [facility] [place] TB WBC 5-10(A) NONE SEEN #/HPF TBH TBH [...] us Alfredo Mendoza DO CLINISYNC Final Result [facility] TBH * (ABNORMAL) TBH UA (CLEAN/CATCH) CARBON SEQUESTRATION PLANT OPERATOR/MICRO IF IND. (04/18/2025 9:05 PM EDT) COLOR [...] Narrative CLINISYNC - 04/18/2025 10:09 PM EDT [employer] DO CLINISYNC Final Result [facility] TBH * TBH CREATININE URINE (04/18/2025 9:05 PM EDT) CREATININE URINE RANDOM 84.16 20.00 - 300.00 mg/dL TBH 04/18/2025 9:05 PM EDT 04/18/2025 10:44 PM EDT Narrative CLINISYNC - 04/18/2025 10:51 PM EDT [facility] DO CLINISYNC Final Result [facility] * POCT urinalysis dipstick manually resulted [...] Positive Urine 04/18/2025 10:4 0 AM EDT Alfredoreyes Donaldson DO POINT OF CARE TEST ENTER/EDIT [...] CLINISYNC - 04/18/2025 10:45 AM EDT Alfredo Mendoza DO CLINISYNC Final Result [facility] * SRMCOH PROTHROMBIN TIME INR W/O [...] Organization Address [facility]/ZIP Co de Phone Number [facility] * (ABNORMAL) [facility] AST (04/11/2025 4:52 PM EDT) ASPARTATE AMINO TRANSFERASE 11(L) 15 - 37 U/L TB 04/11/2025 4:52 PM EDT 04/11/2025 4:56 PM EDT Narrative CLINISYNC - 04/11/2025 5:52 PM EDT Alfredo Mendoza DO CLINISYNC Final Result Performing Organization Address City/[facility]/ZIP Co de Phone Number [facility] * [facility] APTT (04/11/2025 4:52 PM EDT) PARTIAL THROMBOPLASTIN TIME 27.3 22.3 - 36.2 sec TB 04/11/2025 4:52 PM EDT 04/11/2025 4:56 PM EDT Narrative CLINISYNC - 04/11/2025 5:57 PM EDT Alfredo Mendoza DO CLINISYNC Final Result [facility] * ALL URIC ACID (04/11/2025 4:52 PM EDT) URIC ACID 2.8 2.6 - 6.0 mg/dL TBH 04/11/2025 4:52 PM EDT 04/11/2025 4:56 PM EDT Narrative CLINISYNC - 04/11/2025 5:52 PM EDT us Alfredo Mendoza DO CLINISYNC Final Result CLINISYMD TB * ALL LDH (04/11/2025 4:52 PM EDT) LACTATE DEHYDROGENASE 153 81 - 234 U/L TBH 04/11/2025 4:52 PM EDT 04/11/2025 4:56 PM EDT Narrative CLINISYNC - 04/11/2025 5:52 PM EDT us Alfredo Donaldson DO BROCK Final Result Performing Organization Address [facility] Co de Phone Number [facility] * US OB 14+ weeks anatomy scan (02/09/2025 4:57 PM EDT) Anatomical Region Laterality Modality Body Ultrasound 02/09/2025 4:57 PM EDT Narrative 02/09/2025 4:57 PM EDT THIS EXAM WAS PERFORMED AT [facility] NAME: CINDY GRECO : 1995 SEX: F Accession Number: [id number] ORDERING PHYSICIAN: JAIDA RITTER REFERRING PHYSICIAN: ALFREDO DONALDSON Coding ----- --------- Procedures 48158: Ultrasound, uterus, real time with image documentation, and maternal evaluation plus detailed anatomic examination, transabdominal approach;single or first gestation 53157: Transvaginal Ultrasound (OB) 57397: Echocardiography, , cardiovascular system, real time with image documentation (2D), with or without M-mode recording Indication ----- --------- Screening for Anatomic Survey, Screening for cervical length, Screening for congenital cardiac abnormality, resulting from assisted reproductive technology, Gestational diabetes, Obesity in , Depression, Supervision of high risk (LT Choroid plexus cyst) History ----- --------- OB History 2. Para 0 [id number] Maternal Assessment ----- --------- Physical Exam Height [...] Hadlock OFD 65.6 mm 22w 1d 95% Padimni HC 177.5 mm 20w 2d 32% Hadlock Cerebellum tr 21.1 mm 20w 0d 56% Hill Nuchal fold 4.1 mm AC 169.5 mm 22w 0d 87% Hadlock Femur 33.4 mm 20w 3d 43% Hadlock Humerus 36.2 mm 22w 4d 98% Padmini HC / AC 1.05 3% Hadlock Weight Calculation: EFW 399 g 79% Hadlock EFW (lb,oz) 0 lb 14 oz EFW by Hadlock ([id number]) Head / Face / Neck Biometry: Cephalic index 0.69 <1% Nicolaides Production Engineer Track 6.4 mm CM 6.2 mm 82% Nicolaides [...] Thorax 4-chamber view. RVOT view. LVOT view. 7-vvootd-aypnpzw view. Diaphragm. Abdomen Cord insertion. Spine: Cervical [...] suboptimal RVOT view suboptimal 3-vessel view normal 4-abxidz-ncukgbv view suboptimal Aortic arch view normal Ductal [...] primary OB provider unless otherwise specified by MFM. Results forwarded to ordering provider so they can follow up with the patient as necessary. The copy-to physician of this order is ALFREDO Palacios The ordering physician of this order is JAIDA Vicente Procedure Note Radiology, Radiologist, MD - 02/09/2025 THIS EXAM WAS PERFORMED AT [facility] NAME: CINDY GRECO : 1995 SEX: F Accession Number: [id number] ORDERING PHYSICIAN: JAIDA RITTER REFERRING PHYSICIAN: ALFREDO DONALDSON Coding ----- --------- Procedures 92915: Ultrasound, uterus, real time with imagedocumentation, and maternal evaluation plus detailed anatomic examination, transabdominalapproach;single or first gestation 92478: Transvaginal Ultrasound (OB) 51299: Echocardiography, , cardiovascular system, real timewith image documentation (2D), with or without M-mode recording Indication ----- --------- Screening for Anatomic Survey, Screening for cervical length, Screeningfor congenital cardiac abnormality, resulting from assisted reproductive technology, Gestational diabetes, Obesity inpregnancy, Depression, Supervision of high risk (LT Choroid plexus cyst) History ----- --------- OB History 2. Para 0 [id number] Maternal Assessment ----- --------- Physical Exam Height [...] 0 lb 14 oz EFW by Hadlock ([id number]) Head / Face / Neck Biometry: Cephalic index 0.69 <1% Nicolaides Production Engineer Track 6.4 mm CM 6.2 mm 82% Nicolaides [...] Thorax 4-chamber view. RVOT view. LVOT view. 2-qwllxz-gsynkvdluey. Diaphragm. Abdomen Cord insertion. Spine: Cervical spine. [...] suboptimal RVOT view suboptimal 3-vessel view normal 8-zrxaxx-fteirxq view suboptimal Aortic arch view normal Ductal [...] today's exam. Recommendations ----- --------- Please see [facility] documentation from today. The patient is scheduled in four week(s) to complete anatomic survey andfetal echocardiogram. Subsequent follow up or other follow up as clinically determined byprimary OB provider unless otherwise specified by [facility]. Results forwarded to ordering provider so they [...] Date Diagnosed Date OB Reminders 11/26/2024 Insurance [facility]
--- OUTSIDE RECORDS SUMMARY | 2025-04-29 17:08 | XMS_ITS | Encounter Summary ---
Author Organization [facility] tem Address [id number] [address] [place] [address] Care Team Providers Care Innersole Fitter Name Role Phone Unavailable Primary Care Provider Unavailabl e Encounter Details Date Type Department Care Team (Late Contact Info) Description 12/30/2024 Orders Only Maternal- Medicine at [facility] [address] [place] [address] Ref Prov, [place] [address] Social History Tobacco Use Types Packs/Day Years [...] 05/12/2025 8:00 AM EDT Appointment Maternal Medicine [place] [address] [facility] [address] [place] [phone] 05/23/2025 1:30 PM EDT Telemedicine Maternal- Medicine at [facility] [address] [place] [address] Devika Pulido, JASON [address] [address] documented as of this encounter Visit Diagnoses Not on filedocumented in this encounter Additional Health Concerns Assessment Noted Time PHQ-9 Depression Total Score: 2 07/03/20 16 9:00 AM EDT documented as of this encounter
--- OUTSIDE RECORDS SUMMARY | 2025-04-29 17:08 | XMS_ITS | Encounter Summary ---
Author Organization [facility] tem Address [id number] [address] [place] [address] Care Team Providers Care Forestry Engineer Name Role Phone Unavailable Primary Care Provider Unavailabl e Encounter Details Date Type Department Care Team (Late st Contact Info) Description 02/17/2025 Orders Only Maternal- Medicine at [facility] [address] [place] [phone] Christy Prado LPN Insulin controlled gestational diabetes mellitus (GDM) in second trimester; Prediabetes in mother during ; 20 weeks gestation of ; Choroid plexus cyst of fetus affecting care of mother, antepartum, single or unspecified fetus; Heterozygous factor V Leiden affecting in second trimester, antepartum; Severe obesity due to excess calories affecting , antepartum ([facility]); Bipolar disorder, in full remission, most recent [...] 05/12/2025 8:00 AM EDT Appointment Maternal Medicine [place] [address] [facility] [address] [place] [phone] 05/23/2025 1:30 PM EDT Telemedicine Maternal- Medicine at [facility] [address] [place] [phone] Devika Pulido PA-C [address] [address] documented as of this encounter Procedures Procedure [...] due to excess calories affecting , antepartum ([facility]) Bipolar disorder, in full remission, most recent [...] due to excess calories affecting , antepartum ([facility]) Bipolar disorder, in full remission, most recent episode depressed documented in this encounter Additional Health Concerns Assessment Noted Time PHQ-9 Depression Total Score: 2 07/03/20 16 9:00 AM EDT documented as of this encounter
--- OUTSIDE RECORDS SUMMARY | 2025-04-29 17:08 | XMS_ITS | Encounter Summary ---
Author Organization [facility] Address [address] [place] [address] Care Team Providers Care Manuscripts Curator Name Role Phone Unavailable Primary Care Provider Unavailabl e Encounter Details Date Type Department Care Team (Late Contact Info) Description 01/27/2025 Orders Only [facility] BCP OB [address] [place] [phone] Damaris Lopez LPN [address] [place] [id number] Social History Tobacco Use Types Packs/Day Years [...] AM EDT Routine [facility] BCP OB [address] [place] [address] Christy Schwartz PA [address] [place], [place] [phone] documented as of this encounter Goals Goal [...]
--- OUTSIDE RECORDS SUMMARY | 2025-04-29 17:08 | XMS_ITS | Encounter Summary ---
Author Organization [facility] tem Address [id number] [address] [place] [address] Care Team Providers Care Pacs Specialist Name Role Phone Unavailable Primary Care Provider Unavailabl e Encounter Details Date Type Department Care Team (Late st Contact Info) Description 04/20/2025 Telephone Maternal- Medicine at [facility] [address] [place] [phone] Aissatou Stoner, RN Social History Tobacco Use [...] 05/12/2025 8:00 AM EDT Appointment Maternal Medicine [place] [address] [facility] [address] [place] [address] 05/23/2025 1:30 PM EDT Telemedicine Maternal- Medicine at [facility] [address] [place] [phone] Devika Pulido, PAMoniqueC [address] [address] documented as of this encounter Visit Diagnoses Not on filedocumented in this encounter Additional Health Concerns Assessment Noted Time PHQ-9 Depression Total Score: 2 07/03/20 16 9:00 AM EDT documented as of this encounter
--- OUTSIDE RECORDS SUMMARY | 2025-04-29 17:08 | XMS_ITS | Encounter Summary ---
Author Organization [facility] Address [address] [place] [address] Care Team Providers Care Beam Worker Name Role Phone Unavailable Primary Care Provider Unavailabl e Encounter Details Date Type Department Care Team (Late Contact Info) Description 04/27/2025 Clinisync Result Encounter [facility] External Department Unsolicited George Scherer, LEEANN [address] [place] [address] Social History Tobacco Use Types Packs/Day Years [...] OB [address] [place] [address] Christy Schwartz PA [address] [place] [address] Dr [place], [facility] documented as of this encounter Goals Goal Patient Goal Type Associated Problems Recent Progress Patient-Stated? Author Reminders Care Plan OB Reminders No Open Scheduling, Background documented as of this encounter Procedures Procedure Name Priority Date/Time Associated Diagnosis Comments US OB BPP W NON-STRESS 04/27/2025 8:07 AM EDT documented in this encounter Results * US OB BPP W NON-STRESS (04/27/2025 8:07 AM EDT) Anatomical Region Laterality Modality Other 04/27/2025 8:07 AM EDT Narrative 04/27/2025 8:10 [place] [address] Ultrasound Report Signed Patient: KEVIN WHITE MR#: [id number] : 1995 Acct:[id number] Age/Sex: 29 / F ADM Date: 04/26/25 Loc: US Attending Dr: George Scherer Ordering Physician: George Scherer Date of Service: 04/26/25 Procedure(s): US OB BPP w non-stress Accession Number(s): [id number] cc: George Scherer; Cain Donaldson D.O. The [place] [address] Patient Name: KEVIN WHITE MRN: [id number] date: 1995 Sex: F Assigned Patient Location: [facility] Current Patient Location: Accession/Order Number: [id number] Exam Date: 04/27/2025 08:06 Report Date: 04/27/2025 08:07 At the request of: GEORGE SCHERER Procedure: US OB BPP w non-stress [...] This is in low-normal range. Total score: 8 US/US OB BPP w non-stress IMPRESSION: NORMAL BIOPHYSICAL PROFILE. Impression dictated by: Justina Munson M.D. 04/27/2025 8:07 AM Dictation Location: [place] [address] Electronically authenticated by: [id number] Y Date: 04/27/2025 08:07 Dictated By: Justina Munson M.D. Signed By: 04/27/25 0810 DD/ 08 TD/TT: [place] Worker: Procedure Note Radiology, Radiologist, - 04/27/2025 [place] [address] Ultrasound Report Signed Patient: KEVIN WHITEMR#: [id number] : 1995Acct:[id number] Age/Sex: FADM Date: 04/26/25 Loc: US Attending Dr: George Scherer Ordering Physician: George Scherer Date of Service: 04/26/25 Procedure(s): US OB BPP w non-stress Accession Number(s): [id number] cc: George Scherer; Cain Donaldson D.O. The [address] [id number] Patient Name: KEVIN WHITE MRN: [facility]:[id number] date: 1995 Sex: F Assigned Patient Location: [facility] Current Patient Location: Accession/Order Number: [id number] Exam Date: 04/27/2025 08:06 Report Date: 04/27/2025 08:07 At the request of: GEORGE SCHERER Procedure: US OB BPP w non-stress [...] Munson M.D. 04/27/2025 8:07 AM Dictation Location: [place] [address] Electronically authenticated by: [id number] Y Date: 508:07 Dictated By: Justina Munson M.D. Signed By:04/27/25 0810 DD/ 0807 TD/TT: [place] Worker: us George Scherer [facility] Final Resul t documented in this encounter Visit Diagnoses Not on filedocumented in this encounter Additional Health Concerns Active Problems Noted Date Diagnosed Date OB Reminders 11/26/2024 documented as of this encounter
--- OUTSIDE RECORDS SUMMARY | 2025-04-29 17:19 | XMS_ITS | CCD ---
Author Organization [facility] Care Team Providers Care Clamshell Operator Name Role Phone Unavailable Primary Care Provider Unavailabl e NO FAMILY, PHYSICIAN Primary Care Provider Unava LINDSAY Duckworth Attending Provider Renita Fu Attending Unavailable Renita Fu Admitting Unavailable NO FAMILY, PHYSICIAN Primary Care Unavailable Unavailable Primary Care Provider Unavailabl e Unavailable Primary Care Provider Unavailabl e Unavailable Primary Care Provider Unavailabl e Unavailable Primary Care Provider Unavailabl e TAYLOR PENASSICA Nicholas Referring Unavailable ZOLTON JOSE R Referring Unavailable MENDOZA, CAIN DAVE Referring Unavailable LEXCHRISTY Referring Unavailable MENDOZA, CAIN R Referring Unavailable MENDOZA, CAIN Attending Unavailable CHRISTY BURNETT Attending Unavailable MENDOZA, CAIN Attending Unavailable LEXCHRISTY Attending Unavailable MENDOZA, CAIN Attending Unavailable KENZIE RHODES Attending Unavailable MENDOZA, CAIN R Referring Unavailable MICHELLEAPOLLO Attending Unavailable MENDOZA, CAIN R Referring Unavailable MENDOZA, CAIN R Referring Unavailable JAIDA CHADWICK Attending Unavailable MENDOZA, CAIN R Referring Unavailable MICHELLEAPOLLO Attending Unavailable MENDOZA, CAIN R Referring Unavailable MENDOZA, CAIN R Referring Unavailable MICHELLE, APOLLO Attending Unavailable MENDOZA, CAIN R Referring Unavailable DEVIKA PULIDO Attending Unavailable MENDOZA, CAIN R Referring Unavailable MENDOZA, Cain R Referring Unavailable MD MESSI MCKNIGHT Attending Unav ailable Medications Current Medications Medication Drug Class(es) Dates Sig (Normalized) Sig (Original) aspirin 81 mg chewable tablet (19 sources) Platelet Aggregation Inhibitor, Nonsteroidal Anti-inflammatory Drug aspirin 81 mg chewable tablet Chew 1 tablet (81 mg total) and swallow in the morning. Active Blood Glucose Monitoring Suppl (D-Care Glucometer) w/Device kit (20 sources) Start: 12-23-2024 End: 12-23-2025 Blood Glucose Monitoring Suppl (D-Care Glucometer) w/Device kit Indications: Elevated glucose tolerance test , resulting from in vitro fertilization, antepartum ([facility]) 1 kit Daily Use four times [...] injector (20 sources) Insulin Analog Start: 04-11-20 25 insulin glargine (LANTUS SOLOSTAR U-100 INSULIN) 100 [...] , resulting from in vitro fertilization, antepartum ([facility]) Apply 1 Pad topically Daily Use [...] test, result unknown; Translations: [Encounter for other screening follow-up] Onset: 10-18-2024 Episodic Residual codes; unclassified (1 [...] health status] 03-30-2025 Episodic Residual codes; unclassified (2 sources) Gestation period, 30 weeks; Translations: [30 weeks gestation of ] 04-18-2025 Episodic Residual codes; unclassified (1 source) 20 weeks gestation of ; Translations: [20 weeks gestation of ] Onset: 02-08-2025 Episodic Superficial injury; contusion (1 source) Contusion of right knee, initial encounter; Translations: [Contusion of right knee, initial encounter] Onset: 04-06-2024 Episodic Unclassified (20 sources) OB Reminders Onset: 11-26-2024 11-26-2024 Unclassified [...] Name Value Interpretation Reference Range Facil ity US OB BPP W NON-STRESS on 04-27-2025 [place] [address] Ultrasound Report Signed Patient: FANNIE WHITE MR#: [id number] : 1995 Acct:[id number] Age/Sex: 29 / F ADM Date: 04/26/25 Loc: US Attending Dr: George Scherer Ordering Physician: George Scherer Date of Service: 04/26/25 Procedure(s): US OB BPP w non-stress Accession Number(s): [id number] cc: George Scherer; Cain Donaldson D.O. [place] [id number] Patient Name: FANNIE WHITE MRN: [facility]:[id number] date: 1995 Sex: F Assigned Patient Location: [facility] Current Patient Location: Accession/Order Number: [id number] Exam Date: 04/27/2025 08:06 Report Date: 04/27/2025 [...] Munson M.D. 04/27/2025 8:07 AM Dictation Location: [place] [address] Electronically authenticated by: [id number] Y Date: 04/27/2025 08:07 Dictated By: Justina Munson M.D. Signed By: 04/27/25 0810 DD/ 08 TD/TT: Chemical Compounder: [facility] Radiology, Radiologist, MD - 04/27/2025 [place] [address] Ultrasound Report Signed Patient: FANNIE WHITE MR#: [id number] : 1995 Acct:[id number] Age/Sex: 29 / F ADM Date: 04/26/25 Loc: US Attending Dr: George Scherer Ordering Physician: George Scherer Date of Service: 04/26/25 Procedure(s): US OB BPP w non-stress Accession Number(s): [id number] cc: George Scherer; Cain Donaldson D.O. [place] [address] Patient Name: FANNIE WHITE MRN: [facility]:[id number] date: 1995 Sex: F Assigned Patient Location: [facility] Current Patient Location: Accession/Order Number: [id number] Exam Date: 04/27/2025 08:06 Report Date: 04/27/2025 [...] Munson M.D. 04/27/2025 8:07 AM Dictation Location: [place] [address] Electronically authenticated by: [id number] Y Date: 04/27/2025 08:07 Dictated By: Justina Munson M.D. Signed By: 04/27/2510 DD/ 6 TD/TT: Chemical Compounder: [facility] Radiology Study observation (narrative) [facility] US OB BPP W NON-STRESS Ordered By: Radiologist Radiology on 04-27-2025 [facility] Work Phone: US OB BPP W NON-STRESS on 04-19-2025 [place] [address] Ultrasound Report Signed Patient: FANNIE WHITE MR#: [id number] : 1995 Acct:[id number] Age/Sex: 29 / F ADM Date: Loc: [facility] 254- Attending Dr: Cain Donaldson D.O. Ordering Physician: Cain Donaldson D.O. Date of Service: 04/19/25 Procedure(s): US OB BPP w non-stress Accession Number(s): [id number] cc: Cain Donaldson D.O. [place] [id number] Patient Name: FANNEI WHITE MRN: [id number]:[id number] date: 1995 Sex: F Assigned Patient Location: LAB Current Patient Location: Accession/Order Number: [id number] Exam Date: 04/19/2025 09:00 Report Date: 04/19/2025 09:04 At the request of: CAIN DONALDSON DO [...] Munson M.D. 04/19/2025 9:04 AM Dictation Location: [place] [address] Electronically authenticated by: [id number] Y Date: 04/19/2025 09:04 Dictated By: Justina Munson M.D. Signed By: 04/19/25905 DD/ 3 TD/TT: Chemical Compounder: [facility] Radiology, Radiologist, - 04/19/2025 [place] [address] Ultrasound Report Signed Patient: FANNIE WHITE MR#: [id number] : 1995 Acct:[id number] Age/Sex: 29 / F ADM Date: Loc: [facility] 254-[address]: Cain Donaldson D.O. Ordering Physician: Cain Donaldson D.O. Date of Service: 04/19/25 Procedure(s): US OB BPP w non-stress Accession Number(s): [id number] cc: Cain Donaldson D.O. The [place] [address] Patient Name: FANNIE WHITE MRN: [facility]:[id number] date: 1995 Sex: F Assigned Patient Location: LAB Current Patient Location: Accession/Order Number: [id number] Exam Date: 04/19/2025 09:00 Report Date: 04/19/2025 09:04 At the request of: CAIN DONALDSON DO [...] NORMAL BIOPHYSICAL PROFILE. Impression dictated by: Justina Munosn M.D. 04/19/2025 9:04 AM Dictation Location: [place] [address] Electronically authenticated by: [id number] Y Date: 04/19/2025 09:04 Dictated By: Justina Munson M.D. Signed By: 04/19/25905 DD/ 3 TD/TT: Chemical Compounder: [facility] Radiology Study observation (narrative) [facility] US OB BPP W NON-STRESS Ordered By: Radiologist Radiology on 04-19-2025 [facility] Work Phone: US RENAL BIon 04-19-[address] [address] Ultrasound Report Signed Patient: FANNIE WHITE MR#: [id number] : 1995 Acct:[id number] Age/Sex: 29 / F ADM Date: Loc: [facility] 254-[address]: Cain Donaldson D.O. Ordering Physician: Cain Donaldson D.O. Date of Service: 04/19/25 Procedure(s): US renal BI Accession Number(s): [id number] cc: Cain Donaldson D.O. The [place] [id number] Patient Name: FANNIE WHITE MRN: [facility]:[id number] date: 1995 Sex: F Assigned Patient Location: LAB Current Patient Location: Accession/Order Number: [id number] Exam Date: 04/19/2025 08:46 Report Date: 04/19/2025 08:49 At the request of: CAIN DONALDSON DO Procedure: US renal BI BILATERAL [...] Munson M.D. 04/19/2025 8:49 AM Dictation Location: [place] [address] Electronically authenticated by: [id number] Y Date: 04/19/2025 08:49 Dictated By: Justina Munson M.D. Signed By: 04/19/25 0852 DD/ 0849 TD/TT: Chemical Compounder: [facility] Radiology, Radiologist, - 04/19/[address] [address] Ultrasound Report Signed Patient: FANNIE WHITE MR#: [id number] : 1995 Acct:[id number] Age/Sex: 29 / F ADM Date: Loc: [facility] 254-[address]: Cain Donaldson D.O. Ordering Physician: Cain Donaldson D.O. Date of Service: 04/19/25 Procedure(s): US renal BI Accession Number(s): [id number] cc: Cain Donaldson D.O. [place] [address] Patient Name: FANNIE HWITE MRN: [facility]:[id number] date: 1995 Sex: F Assigned Patient Location: LAB Current Patient Location: Accession/Order Number: [id number] Exam Date: 04/19/2025 08:46 Report Date: 04/19/2025 08:49 At the request of: CAIN DONALDSON DO Procedure: US renal BI BILATERAL [...] Munson M.D. 04/19/2025 8:49 AM Dictation Location: [place] [address] Electronically authenticated by: [id number] Y Date: 04/19/2025 08:49 Dictated By: Justina Munson M.D. Signed By: 04/19/25 0852 DD/ TD/TT: Chemical Compounder: [facility] Radiology Study observation (narrative) [facility] US RENAL BIOrdered By: Radio logist Radiology on 04-19-2025 [facility] Work Phone: TB TOTAL PROTEIN 24 HOUR UR INEon 04-18-2025 Interpretation and review of laboratory results Abnormal [facility] Protein (U) [Mass/Vol] 9.5 mg/dL NINF - 11.9 mg/dL [facility] TB TOTAL PROTEIN 24 HOUR URINE 285 High NINF [facility] TOTAL VOLUME 24 HOUR URINE 3000 mL/24hr [facility] TB UA (CLEAN/CATCH) EMBROIDERY SPECIALIST/BHAVIN RO IF IND.on 04-18-2025 BILIRUBIN URINE Negative NEGATIVE [facility] BLOOD URINE MODERATE Abnormal NEGATIVE [facility] Clarity (U) CLEAR CLEAR [facility] Color (U) LT. YELLOW YELLOW [facility] GLUCOSE URINE UA Negative NEGATIVE mg/dL [facility] Interpretation and review of laboratory results Abnormal [facility] Ketones Ql (U) Negative NEGATIVE mg/dL [facility] Leukocyte esterase Test strip Ql (U) SMALL Abnormal NEGATIVE [facility] NITRITE URINE Negative NEGATIVE [facility] pH (U) 6.0 [pH] 5.0 - 9.0 [facility] PROTEIN URINE Negative NEG/TRACE mg/dL [facility] SPECIFIC GRAVITY URINE 1.020 1.005 - 1.025 [facility] URINE MICROSCOPIC INDICATED YES [facility] UROBILINOGEN URINE 0.2 EU/dL 0.2 - 1.0 EU/dL N [facility] Urinalysis macro (dipstick) panel (U)on 04-18-2025 Bilirubin, UA Negative Negative - 4(70) +++ mg/dL [facility] Blood, UA Negative Negative - 50 Warren/mcL [facility] Clarity, UA Clear [facility] Color, UA Yellow [facility] Glucose, UA Negative Negative - 1999(110) ++++ mg/dL [facility] Interpretation and review of laboratory results Normal [facility] Ketones, UA Negative Negative - 160(16) ++++ mg/dL [facility] Leukocytes, UA Positive Negative - 500+++ Malick/mcL [facility] Comment on above: small Nitrite, UA Negative Negative - Positive [facility] pH, UA 7 5 - 9 [facility] Protein, UA Negative Negative - 1999(20) ++++ mg/dL [facility] Spec Grav, UA 1.01 1 - 1.03 [facility] Urobilinogen, UA 0.2 0.2 - 12 mg/dL [facility] ALL BUNon 04-11-2025 Urea nitrogen [Mass/Vol] 11 mg/dL 7.0 - 18.0 mg/dL [facility] ALL CBC WITH AUTO DIFFon BASOPHILS ABSOLUTE AUTO 0 [facility] Basophils/100 WBC (Bld) 0.3 % 0.2 - 2.0 % [facility] Eosinophils/100 WBC (Bld) 1.5 % 0.9 - 7.0 % [facility] Erythrocyte distribution width (RBC) [Ratio] 13.4 % 11.0 - 15.0 % [facility] Hematocrit (Bld) [Volume fraction] 31.7 % Low 36.0 - 48.0 % [facility] Hemoglobin (Bld) [Mass/Vol] 11 g/dL Low 12.0 - 16.0 g/dL [facility] IMMATURE GRANULOCYTES ABS AUTO 0.06 High [facility] Immature granulocytes/100 WBC (Bld) 0.8 % High 0.0 - 0.5 % [facility] Interpretation and review of laboratory results Abnormal [facility] LYMPHOCYTES ABSOLUTE AUTO 1.5 [facility] Lymphocytes/100 WBC (Bld) 20.5 % 20.5 - 60.0 % [facility] MCH (RBC) [Entitic mass] 30.2 pg 26.7 - 34.0 pg [facility] MCHC (RBC) [Mass/Vol] 34.7 g/dL 29.9 - 35.2 g/dL [facility] MCV (RBC) [Entitic vol] 87.1 fL 81.0 - 99.0 fL [facility] MONOCYTES ABSOLUTE AUTO 0.6 [facility] Monocytes/100 WBC (Bld) 7.8 % 1.7 - 12.0 % [facility] NEUTROPHILS ABSOLUTE AUTO 5.1 [facility] Neutrophils/100 WBC (Bld) 69.1 % 43.0 - 75.0 % [facility] Platelet mean volume (Bld) [Entitic vol] 10.6 fL 9.5 - 13.5 fL [facility] TBH EO # 0.1 [facility] TB PLT 193 [facility] RBC 3.64 Low [facility] WBC 7.3 [facility] 04-11-2025 LDH [Catalytic activity/Vol] 153 U/L 81 - 234 U/L [facility] ALL URIC ACIDon 04-11-2025 Urate [Mass/Vol] 2.8 mg/dL 2.6 - 6.0 mg/dL [facility] 04-11-2025 AST [Catalytic activity/Vol] 11 U/L Low 15 - 37 U/L [facility] No Panel Informationon 04-11 Interpretation and review of laboratory results Abnormal [facility] 04-11-2025 Creatinine [Mass/Vol] 0.36 mg/dL Low 0.55 - 1.02 mg/dL [facility] GFR/1.73 sq M.predicted CKD-EPI (S/P/Bld) [Vol rate/Area] >60 >=60 mL/min/1.73m 2 [facility] EGFR-NON AF ZAMBIAN >60 >=60 mL/min/1.73m 2 [facility] US OB BPP W NON-STRESS on 04-11-2025 [place] [address] Ultrasound Report Signed Patient: FANNIE WHITE MR#: [id number] : 1995 Acct:[id number] Age/Sex: 29 / F ADM Date: 04/11/25 Loc: Attending Dr: George Scherer Ordering Physician: Cain Donaldson D.O. Date of Service: 04/11/25 Procedure(s): US OB BPP w non-stress Accession Number(s): [id number] cc: Cain Donaldson D.O. The [address] [address] Patient Name: FANNIE WHITE MRN: [facility]:[id number] date: 1995 Sex: F Assigned Patient Location: [facility] Current Patient Location: Accession/Order Number: [id number] Exam Date: 04/11/2025 19:33 Report Date: 04/11/2025 [...] Steen M.D. 04/11/2025 7:34 PM Dictation Location: [place] Electronically authenticated by: [id number] Y Date: 04/11/2025 19:34 Dictated By: Zion Steen D.O. Signed By: 04/11/251935 DD/ 33 TD/TT: Chemical Compounder: [facility] Radiology, Radiologist, - 04/11/2025 [place] [address] Ultrasound Report Signed Patient: FANNIE WHITE MR#: [id number] : 1995 Acct:[id number] Age/Sex: 29 / F ADM Date: 04/11/25 Loc: US Attending Dr: George Scherer Ordering Physician: Cain Donaldson D.O. Date of Service: 04/11/25 Procedure(s): US OB BPP w non-stress Accession Number(s): [id number] cc: Cain Donaldson D.O. The [place] [id number] Patient Name: FANNIE WHITE MRN: [facility]:[id number] date: 1995 Sex: F Assigned Patient Location: [facility] Current Patient Location: Accession/Order Number: [id number] Exam Date: 04/11/2025 19:33 Report Date: 04/11/2025 [...] Steen M.D. 04/11/2025 7:34 PM [facility] Electronically authenticated by: [id number] Y Date: 04/11/2025 19:34 Dictated By: Zion Steen D.O. Signed By: 04/11/251935 DD/ 33 TD/TT: Chemical Compounder: [facility] Radiology Study observation (narrative) [facility] US OB BPP W NON-STRESS Ordered By: Radiologist Radiology on 04-11-2025 [facility] Work Phone: US OB BPP W NON-STRESS on 04-05-2025 [place] [address] Ultrasound Report Signed Patient: FANNIE WHITE MR#: [id number] : 1995 Acct:[id number] Age/Sex: 29 / F ADM Date: 04/05/25 Loc: [facility] 250- Attending Dr: George Scherer Ordering Physician: Cain Donaldson D.O. Date of Service: 04/05/25 Procedure(s): US OB BPP w non-stress Accession Number(s): [id number] cc: Cain Donaldson D.O. The [place] [address] Patient Name: FANNIE WHITE MRN: [facility]:[id number] date: 1995 Sex: F Assigned Patient Location: [facility] Current Patient Location: [facility] Accession/Order Number: [id number] Exam Date: 04/05/2025 17:57 Report Date: 04/05/2025 17:58 At the request of: CAIN DONALDSON DO [...] Steen M.D. 04/05/2025 5:58 PM Dictation Location: [place] [address] Electronically authenticated by: [id number] Y Date: 04/05/2025 17:58 Dictated By: Zion Steen D.O. Signed By: 04/05/25 180 DD/ 175 TD/TT: Chemical Compounder: [facility] Radiology, Radiologist, MD - 04/05/2025 [place] [address] Ultrasound Report Signed Patient: FANNIE WHITE MR#: [id number] : 1995 Acct:[id number] Age/Sex: 29 / F ADM Date: 04/05/25 Loc: [place] [address]: George Scherer Ordering Physician: Cain Donaldson D.O. Date of Service: 04/05/25 Procedure(s): US OB BPP w non-stress Accession Number(s): [id number] cc: Cain Donaldson D.O. The [place] [address] Patient Name: FANNIE WHITE MRN: [facility]:[id number] date: 1995 Sex: F Assigned Patient Location: [facility] Current Patient Location: [facility] Accession/Order Number: [id number] Exam Date: 04/05/2025 17:57 Report Date: 04/05/2025 17:58 At the request of: CAIN DONALDSON DO [...] Steen M.D. 04/05/2025 5:58 PM Dictation Location: [place] [address] Electronically authenticated by: [id number] Y Date: 04/05/2025 17:58 Dictated By: Zion Steen D.O. Signed By: 04/05/254 DD/ 57 TD/TT: Chemical Compounder: [facility] Radiology Study observation (narrative) [facility] US OB BPP W NON-STRESS Ordered By: Radiologist Radiology on 04-05-2025 [facility] Work Phone: Urinalysis macro (dipstick) panel (U)on 03-03-2025 Bilirubin, UA Negative Negative - 4(70) +++ mg/dL [facility] Blood, UA Negative Negative - 50 Warren/mcL [facility] Clarity, UA Clear [facility] Color, UA Yellow [facility] Glucose, UA Negative Negative - 2000(110) ++++ mg/dL [facility] Interpretation and review of laboratory results Abnormal [facility] Ketones, UA Negative Negative - 160(16) ++++ mg/dL [facility] Leukocytes, UA Trace Negative - 500+++ Malick/mcL [facility] Nitrite, UA Negative Negative - Positive [facility] pH, UA 7 5 - 9 [facility] Protein, UA Negative Negative - 2000(20) ++++ mg/dL [facility] Spec Grav, UA 1.015 1 - 1.03 [facility] Urobilinogen, UA 0.2 0.2 - 12 mg/dL [facility] AFP, Maternalon 02-11-2025 Determined by Other [facility] Comment on above: Performed By: #### A AFPM #### [facility] [address], [place] [id number] Saw Operator: Kenneth Krishna MD Due Date SEE NOTE [facility] Comment on above: Result Comment: Resu lts for Estimated Due Date: 06 24 25 Performed By: #### A AFPM #### [facility] [address] [place] [address] Saw Operator: Kenneth Krishna MD Family History No [facility] Comment on above: Performed By: #### A AFPM #### [facility] [address] [place] [address] Saw Operator: Kenneth Krishna MD Gestat Age (exact) 20 wks, 4 days Normal [facility] Comment on above: Performed By: #### A AFPM #### [facility] [address], [place] [id number] Saw Operator: Kenneth Krishna MD Ins Req Matern Diab No [facility] Comment on above: Performed By: #### A AFPM #### [facility] [address] [place] [address] Saw Operator: Kenneth Krishna MD Interpretation Screen Neg [facility] Comment on above: Result Comment: (NOT E) INTERPRETATION: SCREEN NEGATIVE for open spina bifida Neural Tube Defects (NTD) Negative Pre-Test Post-Test Cutoff Neural Tube Defects Risks 1:1030 < 1:37625 1:250 Comments: The risk of an open neural tube defect is less than the screening cut-off. This test was developed and its performance characteristics determined by [facility]. It has not been cleared or approved by the [place] Food and Drug Administration. This test was performed in a CLIA certified laboratory and is intended for clinical purposes. Performed By: #### A AFPM #### [facility] [address] [place] [address] Saw Operator: Kenneth Krishna MD [age] [facility] Comment on above: Performed By: #### A AFPM #### [facility] [address] [place] [address] Saw Operator: Kenneth Krishna MD Maternal Race Nonblack [facility] Comment on above: Performed By: #### A AFPM #### [facility] [address] [place] [address] Saw Operator: Kenneth Krishna MD Maternal Weight 231.0 lbs. [facility] Comment on above: Performed By: #### A AFPM #### [facility] [address] [place] [address] Saw Operator: Kenneth Krishna MD MoM for AFP 0.85 [facility] Comment on above: Performed By: #### A AFPM #### [facility] [address] [place] [address] Saw Operator: Kenneth Krishna MD Number of Fetuses [place] Normal [facility] Comment on above: Performed By: #### A AFPM #### [facility] [address] [place] [address] Saw Operator: Kenneth Krishna MD Patient's AFP 41 ng/mL [facility] Comment on above: Performed By: #### A AFPM #### [facility] [address] [place] [address] Saw Operator: Kenneth Krishna MD Smoking No [facility] Comment on above: Performed By: #### A AFPM #### [facility] [address] [place] [address] Saw Operator: Kenneth Krishna MD Specimen See Note [facility] Comment on above: Result Comment: (NOT E) Initial sample Performed By: [facility] [address] [place] [address] Mastic Sprayer: Jose Joseph MD, PhD CLIA Number: [id number] Performed By: #### A AFPM #### [facility] [address] [place] [address] Saw Operator: Kenneth Krishna MD Urinalysis macro (dipstick) panel (U)on 01-20-2025 Bilirubin, UA Negative Negative - 4(70) +++ mg/dL [facility] Blood, UA Negative Negative - 50 Warren/mcL [facility] Comment on above: trace Clarity, UA Clear [facility] Healthcare Color, UA Renita [facility] Glucose, UA Negative Negative - 2000(110) ++++ mg/dL [facility] Interpretation and review of laboratory results Abnormal [facility] Ketones, UA Positive Negative - 160(16) ++++ mg/dL [facility] Leukocytes, UA Trace Negative - 500+++ Malick/mcL [facility] Nitrite, UA Negative Negative - Positive [facility] pH, UA 7 5 - 9 [facility] Protein, UA Trace Negative - 2000(20) ++++ mg/dL [facility] Spec Grav, UA 1.02 1 - 1.03 [facility] Urobilinogen, UA 1.0 0.2 - 12 mg/dL [facility] Cult,Urineon 12-24-2024 Cult,Urine Specimen Description .URINE Culture NO GROWTH Report Status FINAL 12/24/[address] [facility] Comment on above: Performed By: #### U RC #### [address] [id number] Saw Operator: Jason Rodriguez MD [facility] [address] [place] [address] Saw Operator: Sherwin Elam MD HIV Ag/Abon 12-24-2024 HIV Ag/Ab Non-Reactive Normal NR [facility] Comment on above: Result Comment: No l aboratory evidence of HIV infection. If acute HIV infection is suspected, consider testing for HIV-1 RNA. Performed By: #### R UBI, HBS, TREP, AHCV, HIVCMB, GLYHGB #### [facility] [address] [place] [address] [phone] Saw Operator: Jason Rodriguez MD #### CDP, SIDNEY #### [facility] [address] [place] [address] Saw Operator: Sherwin Elam MD Hemoglobin A1Con 12-24-2024 Glucose [Mass/Vol] 94 mg/dL [facility] Comment on above: Result Comment: The ADA and AACC recommend providing the estimated average glucose result to permit better patient understanding of their HBA1c result. Performed By: #### R UBI, HBS, TREP, AHCV, HIVCMB, GLYHGB #### [address] [id number] Saw Operator: Jason Rodriguez MD #### CDP, SIDNEY #### [facility] [address] [place] [address] Saw Operator: Sherwin Elam MD HbA1c (Bld) [Mass fraction] 4.9 % Normal 4.0-6.[address] [facility] Comment on above: Performed By: #### R UBI, HBS, TREP, AHCV, HIVCMB, GLYHGB #### [id number] [place], [place] [phone] Saw Operator: Jason Rodriguez MD #### CDP, SIDNEY #### [facility] [address] [place] [address] Saw Operator: Sherwin Elam MD Hep B Surf Agon 12-242024 Hep B Surf Ag Non-Reactive Normal NR [facility] Comment on above: Performed By: #### R UBI, HBS, TREP, AHCV, HIVCMB, GLYHGB #### [address] [phone] Saw Operator: Jason Rodriguez MD #### CDP, SIDNEY #### [facility] [address] [place], [place] [phone] Saw Operator: Sherwin Elam MD Hep C Abon 12-24-2024 Hep C Ab Non-Reactive Normal NR [facility] Comment on above: Result Comment: The [...] UBI, HBS, TREP, AHCV, HIVCMB, GLYHGB #### [address] [address] Saw Operator: Jason Rodriguez MD #### KARRI, SIDNEY #### [facility] [address] [place] [address] Saw Operator: Sherwin Elam MD Rubella Ab, IgGon 12-24-2024 Rubella Ab, IgG 78.0 IU/mL Normal [facility] Comment on above: Result Comment: <10 NON REACTIVE Negative for Anti-Rubella IgG >=10 REACTIVE Positive for Anti Rubella IgG The presence of IgG antibody to Rubella virus is an indication of previous exposure either by prior infection or vaccination. Performed By: #### R UBI, HBS, TREP, AHCV, HIVCMB, GLYHGB #### [address] [address] Saw Operator: Jason Rodriguez MD #### KARRI, SIDNEY #### [facility] [address] [place] [address] ( Saw Operator: Sherwin Elam MD T.pallidum Ab Screenon 12-24 T.pallidum Ab Screen Non-Reactive Normal [facility] Comment on above: Result Comment: T. pallidum antibodies are not detected. There is no serological evidence of infection with T. pallidum (early primary syphilis cannot be excluded). Retest in 2-4 weeks if syphilis is clinically suspect. Performed By: #### R UBI, HBS, TREP, AHCV, HIVCMB, GLYHGB #### [address] [phone] Saw Operator: Jason Rodriguez MD #### KARRI, SIDNEY #### [facility] [address] [place] [address] Saw Operator: Sherwin Elam MD CBC with Auto Differentialon 12-23-2024 Basophils (Bld) [#/Vol] 0.02 10*3/uL [facility] Basophils/100 WBC (Bld) 0 % 0 - 2 % [facility] Eosinophils (Bld) [#/Vol] 0.13 10*3/uL [facility] Eosinophils/100 WBC (Bld) 2 % 0 - 5 % [facility] Erythrocyte distribution width (RBC) [Ratio] 12.5 % 12.1 - 15.2 % [facility] Hematocrit (Bld) [Volume fraction] 35.9 % Low 36.0 - 46.0 % [facility] Hemoglobin (Bld) [Mass/Vol] 12.5 g/dL 12.0 - 16.0 g/dL [facility] Immature granulocytes (Bld) [#/Vol] 0.02 10*3/uL [facility] Immature granulocytes/100 WBC (Bld) 0 % 0 - 5 % [facility] Interpretation and review of laboratory results Abnormal [facility] Lymphocytes/100 WBC (Bld) 21 % 15 - 40 % [facility] Lymphocytes/100 WBC (Bld) 1.55 % [facility] MCH (RBC) [Entitic mass] 29.6 pg 26.0 - 34.0 pg [facility] MCHC (RBC) [Mass/Vol] 34.8 g/dL 31.0 - 37.0 g/dL [facility] MCV (RBC) [Entitic vol] 84.9 fL 80.0 - 100.0 fL [facility] Monocytes/100 WBC (Bld) 9 % High 4 - 8 % [facility] Monocytes/100 WBC (Bld) 0.65 % [facility] Neutrophils/100 WBC (Bld) 68 % 47 - 75 % [facility] Platelet mean volume (Bld) [Entitic vol] 9.9 fL 6.0 - 12.0 fL [facility] Platelets (Bld) [#/Vol] 238 10*3/uL [facility] RBC (Bld) [#/Vol] 4.23 10*6/uL 4.00 - 5.2 0 m/uL [facility] Segmented neutrophils/100 WBC (Bld) 4.87 % [facility] WBC other (Bld) [#/Vol] 7.2 [facility] CBC with Diffon 12-23-2024 Abs. Basophil 0.02 k/uL Normal 0.00-0.20 [facility] Comment on above: Performed By: #### R UBI, HBS, TREP, AHCV, HIVCMB, GLYHGB #### [address] [phone] Saw Operator: Jason Rodriguez MD #### SIDNEY ZENG #### [facility] [address] [place] [phone] ( Saw Operator: Sherwin Elam MD Abs.Imm.Granulocyte 0.02 k/uL Normal 0.00-0.[address] [facility] Comment on above: Performed By: #### R UBI, HBS, TREP, AHCV, HIVCMB, GLYHGB #### [place] [address] Saw Operator: Jason Rodriguez MD #### SIDNEY ZENG #### [facility] [address] [place] [phone] ( Saw Operator: Sherwin Elam MD Abs.Neutrophil (Seg) 4.87 k/uL Normal 2.5-7.0 [facility] Comment on above: Performed By: #### R UBI, HBS, TREP, AHCV, HIVCMB, GLYHGB #### [place] [address] Saw Operator: Jason Rodriguez MD #### SIDNEY ZENG #### [facility] [address] [place] [phone] ( Saw Operator: Sherwin Elam MD Basophils/100 WBC (Bld) 0 % Normal 0-[address] [facility] Comment on above: Performed By: #### R UBI, HBS, TREP, AHCV, HIVCMB, GLYHGB #### [place] [id number] Saw Operator: Jason Rodriguez MD #### CDP, SIDNEY #### [facility] [address] [place] [address] Saw Operator: Sherwin Elam MD Eosinophils (Bld) [#/Vol] 0.13 10*3/uL Normal 0.00-0.[address] [facility] Comment on above: Performed By: #### R UBI, HBS, TREP, AHCV, HIVCMB, GLYHGB #### [address] [phone] Saw Operator: Jason Rodriguez MD #### CDP, SIDNEY #### [facility] [address] [place] [address] Saw Operator: Sherwin Elam MD Eosinophils/100 WBC (Bld) 2 % Normal 0-[address] [facility] Comment on above: Performed By: #### R UBI, HBS, TREP, AHCV, HIVCMB, GLYHGB #### [place] [address] Saw Operator: Jason Rodriguez MD #### KARRI, SIDNEY #### [facility] [address] [place] [address] Saw Operator: Sherwin Elam MD Erythrocyte distribution width (RBC) [Ratio] 12.5 % Normal 12.1-15.[address] [facility] Comment on above: Performed By: #### R UBI, HBS, TREP, AHCV, HIVCMB, GLYHGB #### [place] [id number] Saw Operator: Jason Rodriguez MD #### CDP, SIDNEY #### [facility] [address] [place] [address] Saw Operator: Sherwin Elam MD Hematocrit (Bld) [Volume fraction] 35.9 % Low 36.0-46.[address] [facility] Comment on above: Performed By: #### R UBI, HBS, TREP, AHCV, HIVCMB, GLYHGB #### [address] [id number] Saw Operator: Jason Rodriguez MD #### CDP, SIDNEY #### [facility] [address] [place], [place] [phone] Saw Operator: Sherwin Elam MD Hemoglobin (Bld) [Mass/Vol] 12.5 g/dL Normal 12.0-16.[address] [facility] Comment on above: Performed By: #### R UBI, HBS, TREP, AHCV, HIVCMB, GLYHGB #### [address] [address] Saw Operator: Jason Rodriguez MD #### KARRI, SIDNEY #### [facility] [address] [place] [address] Saw Operator: Sherwin Elam MD Immature granulocytes/100 WBC (Bld) 0 % Normal 0-[address] [facility] Comment on above: Performed By: #### R UBI, HBS, TREP, AHCV, HIVCMB, GLYHGB #### [address] [address] Saw Operator: Jason Rodriguez MD #### KARRI, SIDNEY #### [facility] [address] [place] [address] Saw Operator: Sherwin Elam MD Lymphocytes (Bld) [#/Vol] 1.55 10*3/uL Normal 1.00-4.[address] [facility] Comment on above: Performed By: #### R UBI, HBS, TREP, AHCV, HIVCMB, GLYHGB #### [address] [phone] Saw Operator: Jason Rodriguez MD #### CDP, SIDNEY #### [facility] [address] [place] [phone] Saw Operator: Sherwin Elam MD Lymphocytes/100 WBC (Bld) 21 % Normal 15-[address] [facility] Comment on above: Performed By: #### R UBI, HBS, TREP, AHCV, HIVCMB, GLYHGB #### [address] [phone] Saw Operator: Jason Rodriguez MD #### CDP, SIDNEY #### [facility] [address] [place] [address] Saw Operator: Sherwin Elam MD MCH (RBC) [Entitic mass] 29.6 pg Normal 26.0-34.[address] [facility] Comment on above: Performed By: #### R UBI, HBS, TREP, AHCV, HIVCMB, GLYHGB #### [address] [phone] Saw Operator: Jason Rodriguez MD #### CDP, SIDNEY #### [facility] [address] [place] [address] Saw Operator: Sherwin Elam MD MCHC (RBC) [Mass/Vol] 34.8 g/dL Normal 31.0-37.[address] [facility] Comment on above: Performed By: #### R UBI, HBS, TREP, AHCV, HIVCMB, GLYHGB #### [address] [phone] Saw Operator: Jason Rodriguez MD #### CDP, SIDNEY #### [facility] [address] [place] [address] Saw Operator: Sherwin Elam MD MCV (RBC) [Entitic vol] 84.9 fL Normal 80.0-100.[address] [facility] Comment on above: Performed By: #### R UBI, HBS, TREP, AHCV, HIVCMB, GLYHGB #### [address] [place] [phone] Saw Operator: Jason Rodriguez MD #### CDP, SIDNEY #### [facility] [address] [place], [place] [phone] Saw Operator: Sherwin Elam MD Monocytes (Bld) [#/Vol] 0.65 10*3/uL Normal 0.00-1.[address] [facility] Comment on above: Performed By: #### R UBI, HBS, TREP, AHCV, HIVCMB, GLYHGB #### [address] [address] Saw Operator: Jason Rodriguez MD #### KARRI, SIDNEY #### [facility] [address] [place], [place] [phone] Saw Operator: Sherwin Elam MD Monocytes/100 WBC (Bld) 9 % High 4-[address] [facility] Comment on above: Performed By: #### R UBI, HBS, TREP, AHCV, HIVCMB, GLYHGB #### [address] [phone] Saw Operator: Jason Rodriguez MD #### KARRI, SIDNEY #### [facility] [address] [place], [place] [phone] Saw Operator: Sherwin Elam MD Neutrophil (Seg) 68 % Normal 47-75 [facility] Comment on above: Performed By: #### R UBI, HBS, TREP, AHCV, HIVCMB, GLYHGB #### [address] [phone] Saw Operator: Jason Rodriguez MD #### CDP, SIDNEY #### [facility] [address] [place], [place] [phone] Saw Operator: Sherwin Elam MD Platelet mean volume (Bld) [Entitic vol] 9.9 fL Normal 6.0-12.0 [facility] Comment on above: Performed By: #### R UBI, HBS, TREP, AHCV, HIVCMB, GLYHGB #### [address] [address] Saw Operator: Jason Rodriguez MD #### KARRI, SIDNEY #### [facility] [address] [place], [place] [phone] Saw Operator: Sherwin Elam MD Platelets (Bld) [#/Vol] 238 10*3/uL Normal 140-[address] [facility] Comment on above: Performed By: #### R UBI, HBS, TREP, AHCV, HIVCMB, GLYHGB #### [address] [address] Saw Operator: Jason Rodriguez MD #### KARRI, SIDNEY #### [facility] [address] [place] [address] Saw Operator: Sherwin Elam MD RBC (Bld) [#/Vol] 4.23 10*6/uL Normal 4.00-5.[address] [facility] Comment on above: Performed By: #### R UBI, HBS, TREP, AHCV, HIVCMB, GLYHGB #### [address] [address] Saw Operator: Jason Rodriguez MD #### KARRI, SIDNEY #### [facility] [address] [place] [phone] ( Saw Operator: Sherwin Elam MD WBC (Bld) [#/Vol] 7.2 10*3/uL Normal 3.5-11.[address] [facility] Comment on above: Performed By: #### R UBI, HBS, TREP, AHCV, HIVCMB, GLYHGB #### [address] [address] Saw Operator: Jason Rodriguez MD #### CDP, SIDNEY #### [facility] [address] [place] [address] Saw Operator: Sherwin Elam MD Drug Scr, Abuse, Uron 2024 Amphetamine(s),Ur Negative Normal NEG [facility] Comment on above: Result Comment: Cuto ff: 1000 ng/mL Performed By: #### R UBI, HBS, TREP, AHCV, HIVCMB, GLYHGB #### [address] [address] Saw Operator: Jason Rodriguez MD #### CDP, SIDNEY #### [facility] [address] [place], [place] [phone] Saw Operator: Sherwin Elam MD Barbiturate(s),Ur Negative Normal NEG [facility] Comment on above: Result Comment: Cuto ff: 200 ng/ml Performed By: #### R UBI, HBS, TREP, AHCV, HIVCMB, GLYHGB #### [address] [address] Saw Operator: Jason Rodriguez MD #### CDP, SIDNEY #### [facility] [address] [place], [place] [phone] Saw Operator: Sherwin Elam MD Benzodiazepine(s) Negative Normal NEG [facility] Comment on above: Result Comment: Cuto ff: 200 ng/ml Performed By: #### R UBI, HBS, TREP, AHCV, HIVCMB, GLYHGB #### [address] [address] Saw Operator: Jason Rodriguez MD #### CDP, SIDNEY #### [facility] [address] [place], [place] [phone] Saw Operator: Sherwin Elam MD Cannabinoid(s),Ur Negative Normal NEG [facility] Comment on above: Result Comment: Cuto ff: 50 ng/ml Performed By: #### R UBI, HBS, TREP, AHCV, HIVCMB, GLYHGB #### [address] [address] Saw Operator: Jason Rodriguez MD #### CDP, SIDNEY #### [facility] [address] [place], [place] [phone] Saw Operator: Sherwin Elam MD Fentanyl, Urine Negative Normal NEG [facility] Comment on above: Result Comment: Cuto ff: 5 ng/ml Performed By: #### R UBI, HBS, TREP, AHCV, HIVCMB, GLYHGB #### [address] [address] Saw Operator: Jason Rodriguez MD #### CDP, SIDNEY #### [facility] [address] [place], [place] [phone] Saw Operator: Sherwin Elam MD Methadone Ql (U) Negative Normal NEG [facility] Comment on above: Result Comment: Cuto ff: 300 ng/ml Performed By: #### R UBI, HBS, TREP, AHCV, HIVCMB, GLYHGB #### [address] [address] Saw Operator: Jason Rodriguez MD #### CDP, SIDNEY #### [facility] [address] [place], [place] 1895690 Saw Operator: Sherwin Elam MD Opiate(s), Ur Negative Normal NEG [facility] Comment on above: Result Comment: Cuto ff: 300 ng/ml Performed By: #### R UBI, HBS, TREP, AHCV, HIVCMB, GLYHGB #### [address] [address] Saw Operator: Jason Rodriguez MD #### CDP, SIDNEY #### [facility] [address] [place] [address] Saw Operator: Sherwin Elam MD Oxycodone, Urine Negative Normal NEG [facility] Comment on above: Result Comment: Cuto ff: 100 ng/ml Performed By: #### R UBI, HBS, TREP, AHCV, HIVCMB, GLYHGB #### [address] [place] [address] Saw Operator: Jason Rodriguez MD #### CDP, SIDNEY #### [facility] [address] [place], [place] 0008990 Saw Operator: Sherwin Elam MD Phencyclidine, Ur Negative Normal NEG [facility] Comment on above: Result Comment: Cuto ff: 25 ng/ml Performed By: #### R UBI, HBS, TREP, AHCV, HIVCMB, GLYHGB #### [address] [address] Saw Operator: Jason Rodriguez MD #### CDP, SIDNEY #### [facility] [address] [place], [place] [phone] Saw Operator: Sherwin Elam MD Interpretive Info This method is a screening test to detect only these drug classes as part of a Normal [facility] Comment on above: Result Comment: medi luis workup. Confirmatory testing by another method should be ordered if clinically indicated. Performed By: #### R UBI, HBS, TREP, AHCV, HIVCMB, GLYHGB #### [facility] [address] [place] [address] Saw Operator: Jason Rodriguez MD #### CDP, SIDNEY #### [facility] [address] [place] [address] Saw Operator: Sherwin Elam MD Drug Scr, Abuse, UrOrdered B y: Janay Vázquez on 12-23-2024 Cocaine Metabolite Negative Normal NEG [facility] Comment on above: Result Comment: Cuto ff: 300 ng/ml Performed By: #### R UBI, HBS, TREP, AHCV, HIVCMB, GLYHGB #### [facility] [address] [place] [address] Saw Operator: Jason Rodriguez MD #### CDP, SIDNEY #### [facility] [address] [place] [address] Saw Operator: Sherwin Elam MD Drug Screen, UrineOrdered By : Janay Vázquez on 12-23-2024 Amphetamine/Methamph etamine Negative [facility] Barbiturates Negative [facility] Benzodiazepines Negative [facility] Ecstasy Negative [facility] Methadone Negative [facility] Opiates Negative [facility] Oxycodone Negative [facility] Phencyclidine Negative [facility] Thc Marijuana, Urine Negative [facility] HIV 1&2 AB/AG Screen (P24 AG )on 12-23-2024 HIV 1&2 AB/AG Non-Reactive [facility] Hemoglobin A1con 12-23-2024 HbA1c (Bld) [Mass fraction] 4.9 % 4.0 - 6.0 % [facility] Hepatitis B surface antigeno n 12-23-2024 Hepatitis B Surface Antigen Non-Reactive [facility] Hepatitis C(HCV) Ab w/ Refle x to PCRon 12-23-2024 HCV Ab Ql (S) Non-Reactive [facility] MHPT CBC WITH DIFFon 025 Basophils/100 WBC (Bld) 0 % 0 - 2 % [facility] Eosinophils/100 WBC (Bld) 2 % 0 - 5 % [facility] Erythrocyte distribution width (RBC) [Ratio] 12.5 % 12.1 - 15.2 % [facility] Hematocrit (Bld) [Volume fraction] 35.9 % Low 36.0 - 46.0 % [facility] Hemoglobin (Bld) [Mass/Vol] 12.5 g/dL 12.0 - 16.0 g/dL [facility] Immature granulocytes/100 WBC (Bld) 0 % 0 - 5 % [facility] Interpretation and review of laboratory results Abnormal [facility] Lymphocytes/100 WBC (Bld) 21 % 15 - 40 % [facility] MCH (RBC) [Entitic mass] 29.6 pg 26.0 - 34.0 pg [facility] MCHC (RBC) [Mass/Vol] 34.8 g/dL 31.0 - 37.0 g/dL [facility] MCV (RBC) [Entitic vol] 84.9 fL 80.0 - 100.0 fL [facility] ABS. [facility] 0.02 [facility] EOSIN[facility] 0.13 [facility] ABS. LYMPH 1.55 [facility] MONOCYTE 0.65 [facility] ABS.IMM.GRANULOCYTE 0.02 [facility].NEUTROPHIL (SEG) 4.87 [facility] MHPT PLATELET COUNT 238 [facility]PT WBC COUNT 7.2 [facility] Monocytes/100 WBC (Bld) 9 % High 4 - 8 % [facility] Platelet mean volume (Bld) [Entitic vol] 9.9 fL 6.0 - 12.0 fL [facility] RBC (Bld) [#/Vol] 4.23 10*6/uL 4.00 - 5.2 0 m/uL [facility] Segmented neutrophils/100 WBC (Bld) 68 % 47 - 75 % [facility] Original Ordering Provider: CAIN ADAN [facility], [facility]BUSE, URon 0 12-23-2024 PT AMPHETAMINE(S),UR Negative NEG [facility] Comment on above: Cutoff: 1000 ng/mL MHPT BARBITURATE(S),UR Negative NEG [facility] Comment on above: Cutoff: 200 ng/ml MHPT BENZODIAZEPINE(S) Negative NEG [facility] Comment on above: Cutoff: 200 ng/ml MH[facility] CANNABINOID(S),UR Negative NEG [facility] Comment on above: Cutoff: 50 ng/ml MH[facility] COCAINE METABOLITE Negative NEG [facility] Comment on above: Cutoff: 300 ng/ml MHPT FENTANYL, URINE Negative NEG [facility] Comment on above: Cutoff: 5 ng/ml MHPT INTERPRETIVE INFO This method is a screening test to detect only these drug classes as part of a [facility] Comment on above: medical workup. Conf irmatory testing by another method should be ordered if clinically indicated. MHPT METHADONE Negative NEG [facility] Comment on above: Cutoff: 300 ng/ml MHPT OPIATE(S), UR Negative NEG [facility] Comment on above: Cutoff: 300 ng/ml MHPT OXYCODONE, URINE Negative NEG [facility] Comment on above: Cutoff: 100 ng/ml MHPT PHENCYCLIDINE, UR Negative NEG [facility] Comment on above: Cutoff: 25 ng/ml Original Ordering Provider: CAIN ADAN [facility] No Panel Informationon 12-23 [facility] TYPE AND SCREENon 0 12-23-2024 ABO and Rh group Nom (Bld) Blood group B Rh(D) positive [facility] Blood group antibodies identified Nom Negative [facility] Type + Scrnon 12-23 Type + Scrn Negative Normal [facility] Comment on above: Performed By: #### R UBI, HBS, TREP, AHCV, HIVCMB, GLYHGB #### [facility] [address] [place] [address] Saw Operator: Jason Rodriguez MD #### CDP, SIDNEY #### [facility] [address] [place] [address] Saw Operator: Sherwin Elam MD Type and screenon 12-23-2024 Abo/Rh(D) Positive [facility] Urinalysis macro (dipstick) panel (U)on 12-23-2024 Bilirubin, UA Negative Negative - 4(70) +++ mg/dL [facility] Blood, UA Negative Negative - 50 Warren/mcL [facility] Clarity, UA Clear [facility] Color, UA Yellow [facility] Glucose, UA Negative Negative - 1999(110) ++++ mg/dL [facility] Interpretation and review of laboratory results Normal [facility] Ketones, UA Negative Negative - 160(16) ++++ mg/dL [facility] Leukocytes, UA Negative Negative - 500+++ Malick/mcL [facility] Nitrite, UA Negative Negative - Positive [facility] pH, UA 7 5 - 9 [facility] Protein, UA Negative Negative - 1999(20) ++++ mg/dL [facility] Spec Grav, UA 1.02 1 - 1.03 [facility] Urobilinogen, UA 1.0 0.2 - 12 mg/dL [facility] Urine Drug Screenon 12-23-19 25 Amphetamines Ql (U) Negative NEGATIVE [facility] [employer] Comment on above: Cutoff: 1000 ng/mL Barbiturates Screen Ql (U) Negative NEGATIVE [facility] Comment on above: Cutoff: 200 ng/ml Benzodiazepines Ql (U) Negative NEGATIVE [facility] Comment on above: Cutoff: 200 ng/ml Cannabinoids Screen Ql (U) Negative NEGATIVE [facility] Comment on above: Cutoff: 50 ng/ml Cocaine Ql (U) Negative NEGATIVE [facility] Comment on above: Cutoff: 300 ng/ml fentaNYL Ql (U) Negative NEGATIVE [facility] Comment on above: Cutoff: 5 ng/ml Methadone Ql (U) Negative NEGATIVE [facility] Comment on above: Cutoff: 300 ng/ml Opiates Screen Ql (U) Negative NEGATIVE [employer] [facility] [employer] Comment on above: Cutoff: 300 ng/ml oxyCODONE Ql (U) Negative NEGATIVE [facility] Comment on above: Cutoff: 100 ng/ml Phencyclidine Ql (U) Negative NEGATIVE [facility] Comment on above: Cutoff: 25 ng/ml Test Information This method is a screening test to detect only these drug classes as part of a medical workup. Confirmatory testing by another method should be ordered if clinically indicated. Musistic HCG ( test) Ql (U)o n 11-25-2024 Interpretation and review of laboratory results Abnormal [facility] Preg Test, Ur Positive Negative [facility] OB TRANSVAGINALon 025 OB TRANSVAGINAL TITLE OF EXAM: OB Ultrasound: [...] 10 weeks 0 days. Dictated and transcribed 11/26/24/dpandreina This report has been electronically signed and approved by the interpreting radiologist. Normal Not Available Comment on above: Order Comment: US OB TRANSVAGINAL No LMP recorded. Urinalysis macro (dipstick) panel (U)on 11-25-2024 Bilirubin, UA Negative Negative - 4(70) +++ mg/dL [facility] Blood, UA Negative Negative - 50 Warren/mcL [facility] Clarity, UA Clear [facility] Color, UA [facility] Glucose, UA Negative Negative - 2000(110) ++++ mg/dL [facility] Interpretation and review of laboratory results Normal [facility] Ketones, UA Negative Negative - 160(16) ++++ mg/dL [facility] Leukocytes, UA Negative Negative - 500+++ Malick/mcL [facility] Nitrite, UA Negative Negative - Positive [facility] pH, UA 6 5 - 9 [facility] Protein, UA Negative Negative - 2000(20) ++++ mg/dL [facility] Spec Grav, UA 1.02 1 - 1.03 [facility] Urobilinogen, UA 0.2 0.2 - 12 mg/dL [facility] HCG, Quanton 10-20-2024 HCG, Quant 812.4 mIU/mL High <5 [facility] Comment on above: Result Comment: Non-preg premeno <=5 Postmeno <=8 Male <=3 If HCG results do not concur with clinical observations, additional testing to confirm results is recommended. Performed By: #### R UBI, HBS, TREP, AHCV, HIVCMB, GLYHGB #### [employer] [address] [place] [address] Saw Operator: Jason Rodriguez MD #### CDP, SIDNEY #### [facility] [address] [place] [address] Saw Operator: Sherwin Elam MD HCG, Quantitative, on 10-20-2024 HCG.beta subunit Qn 812.4 m[IU]/mL High [facility] Comment on above: Non-preg premeno <=5 Postmeno <=8 Male <=3 If HCG results do not concur with clinical observations, additional testing to confirm results is recommended. Interpretation and review of laboratory results Abnormal [facility] HCG, Quanton 10-18-2024 HCG, Quant 293.1 mIU/mL High <5 [facility] Comment on above: Result Comment: Non-preg premeno <=5 Postmeno <=8 Male <=3 If HCG results do not concur with clinical observations, additional testing to confirm results is recommended. Performed By: #### R UBI, HBS, TREP, AHCV, HIVCMB, GLYHGB #### [facility] [address] [place], [place] [address] Saw Operator: Jason Rodriguez MD #### CDP, SIDNEY #### [facility] [address] [place] [address] Saw Operator: Sherwin Elam MD HCG, Quantitative, on 10-18-2024 HCG.beta subunit Qn 293.1 m[IU]/mL High NINF B on [facility] Comment on above: Non-preg premeno <=5 Postmeno <=8 Male <=3 If HCG results do not concur with clinical observations, additional testing to confirm results is recommended. Interpretation and review of laboratory results Abnormal [facility] XR knee RT 4V*on 04-06-2024 XR knee RT 4V* [facility] [address] [place] [id number] XRay Report Signed Patient: Fannie Mckeon MR#: [id number] : 1995 Acct:[id number] Age/Sex: 28 / F ADM Date: 04/06/24 Loc: [id number] Room: Type: [facility] Attending Dr: Renita MONTOYA Copies to: [facility] [...] Justina Munson M.D.04/06/2024 12:42 PM Dictation Location: [place] [address] Transcribed By: [facility] 04/06/24 1242 Dictated By: Justina Munson MD 04/06/24 1240 Signed By: 04/06/24 1242 Normal [facility] Estradiolon 04-15-2022 Estradiol 257.1 pg/mL 27 - 314 pg/mL [facility] Back[facility] Comment on above: FEMALES: Normally menstruating Luteal phase 33-298 Follicular phase 27-156 Midcycle phase 48-314 Postmenopausal (untreated) 5-50 Fulvestrant treatment will show an increased estradiol concentration with this methodology. Alternate methodologies are available upon request. No Panel Informationon 04-15 [facility] [employer] Progesteroneon 04-15-2022 Progesterone 39.8 ng/mL [facility] Comment on above: FEMALE (healthy): Follicular phase 0.06-0.89 Ovulation phase 0.12-12.00 Luteal phase 1.83-23.90 Postmenopausal <0.13 HCG, Quantitative, on 02-08-2022 hCG Quant <1 <5 mIU/mL [employer] Comment on above: Non-preg premeno <=5 Postmeno <=8 Male <=3 If HCG results do not concur with clinical observations, additional testing to confirm results is recommended. Elevated results not associated with may be found in patients with other diseases such as tumors of the germ cells (testis, ovaries, etc.), bladder, pancreas, stomach, lungs, and liver. [employer] TSHon 02-08-2022 TSH Qn 1.05 m[IU]/L [employer] Estradiolon 01-14-2022 Estradiol 326 pg/mL High 27 - 314 pg/mL [employer] [facility] Comment on above: FEMALES: Normally menstruating Luteal phase 33-298 Follicular phase 27-156 Midcycle phase 48-314 Postmenopausal (untreated) 5-50 Fulvestrant treatment will show an increased estradiol concentration with this methodology. Alternate methodologies are available upon request. Interpretation and review of laboratory results Abnormal [employer] HCG, Quantitative, on 01-14-2022 hCG Quant <1 <5 IU/L [employer] Comment on above: Non-preg premeno <=5 Postmeno <=8 Male <=3 If HCG results do not concur with clinical observations, additional testing to confirm results is recommended. Elevated results not associated with may be found in patients with other diseases such as tumors of the germ cells (testis, ovaries, etc.), bladder, pancreas, stomach, lungs, and liver. [employer] No Panel Informationon 01-14 [employer] Progesteroneon 01-14-2022 Progesterone 47.49 ng/mL [employer] [facility] Comment on above: FEMALE (healthy): Follicular phase 0.06-0.89 Ovulation phase 0.12-12.00 Luteal phase 1.83-23.90 Postmenopausal <0.13 Estradiolon 01-08-2022 Estradiol 251 pg/mL 27 - 314 pg/mL [employer] [facility] Comment on above: FEMALES: Normally menstruating Luteal phase 33-298 Follicular phase 27-156 Midcycle phase 48-314 Postmenopausal (untreated) 5-50 Fulvestrant treatment will show an increased estradiol concentration with this methodology. Alternate methodologies are available upon request. No Panel Informationon 01-08 [employer] Progesteroneon 01-08-2022 Progesterone 50.58 ng/mL [employer] [facility] Comment on above: FEMALE (healthy): Follicular phase 0.06-0.89 Ovulation phase 0.12-12.00 Luteal phase 1.83-23.90 Postmenopausal <0.13 HCG, Quantitative, on 12-10-2021 hCG Quant <1 <5 IU/L [employer] Comment on above: Non-preg premeno <=5 Postmeno <=8 Male <=3 If HCG results do not concur with clinical observations, additional testing to confirm results is recommended. Elevated results not associated with may be found in patients with other diseases such as tumors of the germ cells (testis, ovaries, etc.), bladder, pancreas, stomach, lungs, and liver. [employer] Estradiolon 09-26-2021 Estradiol 434 pg/mL High 27 - 314 pg/mL [facility] Comment on above: FEMALES: Normally menstruating Luteal phase 33-298 Follicular phase 27-156 Midcycle phase 48-314 Postmenopausal (untreated) 5-50 Fulvestrant treatment will show an increased estradiol concentration with this methodology. Alternate methodologies are available upon request. Interpretation and review of laboratory results Abnormal [employer] HCG, Quantitative, on 09-26-2021 hCG Quant 652 High <5 IU/L [employer] Comment on above: Non-preg premeno <=5 Postmeno <=8 Male <=3 If HCG results do not concur with clinical observations, additional testing to confirm results is recommended. Elevated results not associated with may be found in patients with other diseases such as tumors of the germ cells (testis, ovaries, etc.), bladder, pancreas, stomach, lungs, and liver. Interpretation and review of laboratory results Abnormal [employer] No Panel Informationon 09-26 [employer] Progesteroneon 09-26-2021 Progesterone 45.63 ng/mL [employer] [facility] Comment on above: FEMALE (healthy): Follicular phase 0.06-0.89 Ovulation phase 0.12-12.00 Luteal phase 1.83-23.90 Postmenopausal <0.13 Estradiolon 09-17-2021 Estradiol 389 pg/mL High 27 - 314 pg/mL [employer] [facility] Comment on above: FEMALES: Normally menstruating Luteal phase 33-298 Follicular phase 27-156 Midcycle phase 48-314 Postmenopausal (untreated) 5-50 Fulvestrant treatment will show an increased estradiol concentration with this methodology. Alternate methodologies are available upon request. Interpretation and review of laboratory results Abnormal [employer] No Panel Informationon 09-17 [employer] Progesteroneon 09-17-2021 Pro[facility] 15.02 ng/mL [facility] Comment on above: FEMALE (healthy): Follicular phase 0.06-0.89 Ovulation phase 0.12-12.00 Luteal phase 1.83-23.90 Postmenopausal <0.13 TSH without ReflexOrdered By : Pedro Luis Dorantes on 06-25-2021 TSH Qn 1.08 m[IU]/L [employer] Phone: [employer] Phone: HCG, Quantitative, on 02-15-2021 hCG Quant <1 <5 IU/L [employer] Phone: Comment on above: Non-preg premeno <=5 [...] Estradiol 66 pg/mL 27 - 314 pg/mL [employer] Phone: Comment on above: FEMALES: Normally menstruating Luteal phase 33-298 Follicular phase 27-156 Midcycle phase 48-314 Postmenopausal (untreated) 5-50 Fulvestrant treatment will show an increased estradiol concentration with this methodology. Alternate methodologies are available upon request. Follicle Stimulating Hormone on 01-12-2021 FSH 5.3 U/L 1.7 - 21.5 U/L [employer] Phone: Comment on above: Reference Range: Male: 1.5-12.4 Ovulating Female: Follicular Phase 3.5-12.5 Ovulation Phase 4.7-21.5 Luteal Phase 1.7-7.7 Postmenopausal Female: 25.8-134.8 HIV Screenon 01-12-2021 HIV Ag/Ab NONREACTIVE NONREACTIVE [employer] Phone: Comment on above: No laboratory eviden ce of HIV infection. If acute HIV infection is suspected, consider testing for HIV-1 RNA. Hepatitis B Core Antibody, T otalon 01-12-2021 Hep B Core Total Ab NONREACTIVE NONREACTIVE [employer] Phone: Hepatitis B Surface Antigeno n 01-12-2021 Hepatitis B Surface Ag NONREACTIVE NONREACTIVE [employer] Phone: Hepatitis C Antibodyon 01-12 Hepatitis C Ab NONREACTIVE NONREACTIVE [employer] [facility] [employer] Phone: Comment on above: The hepatitis C [...] LH 10.8 U/L 1.0 - 95.6 U/L [employer] Phone: Comment on above: Reference Range: Male: 1.7-8.6 Ovulating Female: Follicular Phase 2.4-12.6 Ovulation Phase 14.0-95.6 Luteal Phase 1.0-11.4 Postmenopausal Female: 7.7-58.5 Progesteroneon 01-12-2021 Progesterone 0.13 ng/mL [employer] Phone: Comment on above: FEMALE (healthy): Follicular phase 0.06-0.89 Ovulation phase 0.12-12.00 Luteal phase 1.83-23.90 Postmenopausal <0.13 Prolactinon 01-12-2021 Prolactin 7.58 ug/L 4.79 - 23.30 ug/L [employer] Phone: Comment on above: The presence of macr oprolactin may cause interference in female patients with various endocrinological diseases or during . Rubella antibody, IgGon 01-01 Rubella virus IgG Ql (S) 52.4 IU/mL [employer] Phone: Comment on above: REFERENCE RANGE: <5.0 NON-REACTIVE (non-immune) 5.0 TO 9.9 EQUIVOCAL >=10.0 REACTIVE (immune) HCG, Quantitative, on 01-11-2021 hCG Quant <1 <5 IU/L [employer] Phone: Comment on above: Non-preg premeno <=5 [...] without Reflexon 021 TSH Qn 1.08 m[IU]/L [employer] Work Phone: TYPE AND SCREENon 01-11-2021 ABO/Rh Positive [employer] Work Phone: Arm Band Number NOT REPORTED [employer] Work Phone: Expiration Date 01/14/2021,2359 [employer] Work Phone: Vital Signs Date Time Vital Sign Value Performing Clinician Facility 04-18-2025 10:40-0400 Body mass index (BMI) [Ratio] 43.16 kg/m2 [employer] Work Phone: [facility] 04-18-2025 10:40-0400 Body weight 107.05 kg [employer] Work Phone: [facility] 04-18-2025 10:40-0400 Diastolic blood pressure 72 mm[Hg] [employer] Work Phone: [facility] 04-18-2025 10:40-0400 Systolic blood pressure 120 mm[Hg] [employer] Work Phone: [facility] 04-18-2025 10:34-0400 Body height 157.5 cm [employer] Work Phone: [facility] 03-30-2025 09:26-0400 Body weight 103.87 kg Christy MCKOY Work Phone: [facility] 03-30-2025 09:26-0400 Diastolic blood pressure 80 mm[Hg] Christy MCKOY Work Phone: [facility] 03-30-2025 09:26-0400 Systolic blood pressure 122 mm[Hg] Christy MCKOY Work Phone: [facility] 03-03-2025 09:00-0400 Body weight 105.14 kg Cain Mendoza DO Work Phone: [facility] 03-03-2025 09:00-0400 Diastolic blood pressure 80 mm[Hg] Cain Mendoza DO Work Phone: [facility] 03-03-2025 09:00-0400 Systolic blood pressure 120 mm[Hg] Cain Mendoza DO Work Phone: [facility] 02-08-2025 09:34-0400 Body height 157.5 cm Jaida Chadwick MD Work Phone: [facility] 02-08-2025 09:34-0400 Body mass index (BMI) [Ratio] 42.24 kg/m2 Jaida Chadwick MD Work Phone: [facility] 02-08-2025 09:34-0400 Body weight 104.78 kg Jaida Chadwick MD Work Phone: [facility] 02-08-2025 09:34-0400 Diastolic blood pressure 80 mm[Hg] Jaida Chadwick MD Work Phone: [facility] 02-08-2025 09:34-0400 Heart rate 95 /min Jaida Chadwick MD Work Phone: [facility] 02-08-2025 09:34-0400 Systolic blood pressure 125 mm[Hg] Jaida Chadwick MD Work Phone: [facility] 01-26-2025 14:44-0400 Body height 157.5 cm Apollo Martinez APRN-EXPERIMENTAL PSYCHOLOGIST Work Phone: [facility] 01-26-2025 14:44-0400 Body mass index (BMI) [Ratio] 41.88 kg/m2 Apollo Martinez APRN-EXPERIMENTAL PSYCHOLOGIST Work Phone: [facility] 01-26-2025 14:44-0400 Body weight 103.87 kg Apollo Martinez BENEFITS TECHNICIAN-EXPERIMENTAL PSYCHOLOGIST Work Phone: [facility] 01-26-2025 14:44-0400 Diastolic blood pressure 60 mm[Hg] Apollo Martinez BENEFITS TECHNICIAN-EXPERIMENTAL PSYCHOLOGIST Work Phone: [facility] 01-26-2025 14:44-0400 Heart rate 87 /min Apollo Martinez BENEFITS TECHNICIAN-EXPERIMENTAL PSYCHOLOGIST Work Phone: [facility] 01-26-2025 14:44-0400 Systolic blood pressure 115 mm[Hg] Apollo Martinez BENEFITS TECHNICIAN-EXPERIMENTAL PSYCHOLOGIST Work Phone: [facility] 01-26-2025 14:25-0400 Body mass index (BMI) [Ratio] 41.87 kg/m2 [facility] 01-26-2025 14:25-0400 Body weight 103.87 kg [facility] 01-20-2025 08:42-0400 Body weight 103.87 kg Christy MCKOY Work Phone: [facility] 01-20-2025 08:42-0400 Diastolic blood pressure 70 mm[Hg] Christy MCKOY Work Phone: [facility] 01-20-2025 08:42-0400 Systolic blood pressure 120 mm[Hg] Christy MCKOY Work Phone: [facility] 12-30-2024 10:57-0500 Body height 157.5 cm Jaida Chadwick MD Work Phone: [facility] 11-25-2024 15:25-0500 Body weight 105.23 kg [facility] 11-25-2024 15:25-0500 Diastolic blood pressure 72 mm[Hg] [facility] 11-25-2024 15:25-0500 Systolic blood pressure 124 mm[Hg] [facility] 04-06-2024 12:06-0400 Body height 157.48 cm PHYSICIAN NO [facility] 04-06-2024 12:06-0400 Body mass index (BMI) [Ratio] 42 kg/m2 PHYSICIAN NO [facility] 04-06-2024 12:06-0400 Body weight 104.32 kg PHYSICIAN NO [facility] 04-06-2024 12:06-0400 Diastolic blood pressure 80 mm[Hg] PHYSICIAN NO [facility] 04-06-2024 12:06-0400 Heart rate 80 /min PHYSICIAN NO [facility] 04-06-2024 12:06-0400 Respiratory rate 20 /min PHYSICIAN NO [facility] 04-06-2024 12:06-0400 SaO2% (BldA) [Mass fraction] 99 % PHYSICIAN NO [facility] 04-06-2024 12:06-0400 Systolic blood pressure 124 mm[Hg] PHYSICIAN NO [facility] Encounters Encounter Date Encounter Type Care Provider Facility Start: 05-19-2025 ambulatory Cain R MENDOZA Facility: [facility] Start: 04-27-2025 ambulatory Cain MENDOZA Facility:[facility] Start: 04-27-2025 End: 04-27-2025 Clinisync Result Encounter George Scherer NP Work Phone: [facility] External [facility] Unsolicited Start: 04-27-2025 End: 04-27-2025 Clinisync Result Encounter George Scheerr NP Work Phone: [facility] External [facility] Unsolicited Start: 04-25-2025 End: 04-25-2025 Telephone encounter Giselle Cheng CMA [facility] Start: 04-25-2025 End: 04-25-2025 ambulatory [facility] Start: 04-25-2025 End: 04-25-2025 Office outpatient visit 25 minutes Devika Pulido PA-C Work Phone: [facility] Comment on above: Insulin controlled g estational diabetes mellitus (GDM) in third trimester (Primary Dx) Start: 04-20-2025 End: 04-20-2025 Telephone encounter Aissatou Stoner RN [facility] Start: 04-19-2025 End: 04-19-2025 Clinisync Result Encounter Cain Donaldson DO Work Phone: [facility] External [facility] Unsolicited Start: 04-19-2025 End: 04-19-2025 Clinisync Result Encounter Cain Mendoza DO Work Phone: [facility] External [facility] Unsolicited Start: 04-18-2025 End: 04-18-2025 Bamboo flowsheet Cain Mendoza DO Work Phone: [facility] Start: 04-18-2025 End: 04-18-2025 Bamboo flowsheet Cain Mendoza DO Work Phone: [facility] Start: 04-18-2025 End: 04-18-2025 Clinisync Result Encounter Cain Mendoza DO Work Phone: [facility] External [facility] Unsolicited Start: 04-18-2025 End: 04-18-2025 ambulatory CAIN MENDOZA Not Available Start: 04-18-2025 End: 04-18-2025 flow sheet Cain Mendoza DO Work Phone: [facility] Comment on above: Third trimester preg selene ([facility]); 30 weeks gestation of ([facility]) Start: 04-17-2025 End: 04-18-2025 Clinisync Result Encounter Cain Mendoza DO Work Phone: [facility] External [facility] Unsolicited Start: 04-17-2025 End: 04-18-2025 Clinisync Result Encounter Cain Mendoza DO Work Phone: [facility] External [facility] Unsolicited Start: 04-14-2025 End: 04-14-2025 ambulatory CAIN R [facility] Start: 04-12-2025 End: 04-12-2025 Telephone encounter Sonya Lomax RN [facility] Start: 04-11-2025 End: 04-11-2025 ambulatory Devika Pulido PA-C Work Phone: [facility] Comment on above: Insulin controlled g [...] Pulido PA-C Work Phone: [facility] Start: 04-05-2025 End: 04-05-2025 Clinisync Result Encounter Cain Mendoza DO Work Phone: [facility] External [facility] Unsolicited Start: 04-05-2025 End: 04-05-2025 Clinisync Result Encounter Cain Mendoza DO Work Phone: [facility] External [facility] Unsolicited Start: 03-30-2025 End: 03-30-2025 Bamboo flowsheet Christy MCKOY Work Phone: [facility] Start: 03-30-2025 End: 03-30-2025 Bamboo flowsheet Christy MCKOY Work Phone: [facility] Start: 03-30-2025 End: 03-30-2025 Office outpatient visit 25 minutes Apollo Martinez HOWARD Work Phone: [facility] Comment on above: Insulin controlled g estational diabetes mellitus (GDM) in second trimester (Primary Dx); Recurrent major depressive disorder, in partial remission; Prediabetes in mother during Start: 03-30-2025 End: 03-30-2025 ambulatory [facility] Start: 03-30-2025 End: 03-30-2025 flow sheet Christy MCKOY Work Phone: [facility] [...] encounter Sonya Lomax RN [facility] Start: 03-16-2025 End: 03-16-2025 Telephone encounter Sonya Lomax RN [facility] Start: 03-16-2025 End: 03-16-2025 ambulatory CAIN R MENDOZA [facility] Start: 03-11-2025 End: 03-11-2025 Telephone encounter Naomy Thompson RN Work Phone: [facility] Start: 03-07-2025 End: 03-07-2025 Orders Only Cole Wade MD Work Phone: [facility] Comment on above: Insulin controlled g [...] encounter Valerie Le RN [facility] Start: 02-28-2025 End: 02-28-2025 Orders Only Devika Pulido PA-C Work Phone: [facility] Comment on above: Insulin controlled g estational diabetes mellitus (GDM) in second trimester; Prediabetes in mother during Start: 02-24-2025 End: 02-24-2025 Office outpatient visit 25 minutes Apollo Michelle LAWRENCE Work Phone: [facility] Comment on above: Insulin controlled g estational diabetes mellitus (GDM) in second trimester (Primary Dx); Recurrent major depressive disorder, in partial remission; Bipolar 1 disorder ([facility]); Prediabetes in mother during Start: 02-24-2025 End: 02-24-2025 ambulatory APOLLO MICHELLE [facility] Start: 02-17-2025 End: 02-17-2025 Telephone encounter Christy Prado LPN [facility] Start: 02-15-2025 End: 02-15-2025 Telephone encounter Valerie Le RN [facility] Start: 02-08-2025 End: 02-08-2025 Office consultation new/estab patient 60 min Jaida Chadwick MD Work Phone: [facility] Comment on above: Insulin controlled g estational diabetes mellitus (GDM) in second trimester (Primary Dx); Prediabetes in mother during ; 20 weeks gestation of ; Choroid plexus cyst of fetus affecting care of mother, antepartum, single or unspecified fetus; Heterozygous factor V Leiden affecting in second trimester, antepartum; Severe obesity due to excess calories affecting , antepartum (CMS-HCC); Bipolar disorder, in full remission, most recent episode depressed Start: 02-08-2025 End: 02-08-2025 Orders Only Christy Prado LPN [facility] Comment on above: Insulin controlled g estational diabetes mellitus (GDM) in second trimester (Primary Dx); Choroid plexus cyst of fetus affecting care of mother, antepartum, single or unspecified fetus; Heterozygous factor V Leiden affecting in second trimester, antepartum; Severe obesity due to excess calories affecting , antepartum (CMS-HCC) Start: 02-03-2025 End: 02-03-2025 Telephone encounter Christy Prado LPN [facility] Start: 01-27-2025 End: 01-27-2025 Orders Only Apollo Michelle BENEFITS TECHNICIAN-EXPERIMENTAL PSYCHOLOGIST Work Phone: [facility] Start: 01-26-2025 End: 01-26-2025 Office outpatient new 45 minutes Apollo Martinez BENEFITS TECHNICIAN-EXPERIMENTAL PSYCHOLOGIST Work Phone: [facility] Comment on above: Insulin controlled g estational diabetes mellitus (GDM) in second trimester (Primary Dx) Start: 01-26-2025 End: 01-27-2025 Refill Apollo Martinez BENEFITS TECHNICIAN-EXPERIMENTAL PSYCHOLOGIST Work Phone: [facility] Start: 01-26-2025 End: 01-26-[address] Work Phone: [facility] Comment on above: Insulin controlled g [...] abstracting Scanning Provider External [facility] Start: 12-30-2024 End: 12-30-2024 Chart abstracting Jaida Chadwick MD Work Phone: [facility] Start: 12-29-2024 End: 12-29-2024 Telephone encounter Claudine Hawthorne [facility] Start: 12-23-2024 End: 12-23-2024 ambulatory [facility] Start: 12-23-2024 End: 12-23-2024 Subsequent hospital visit by physician [facility] Start: 12-23-2024 End: 12-23-2024 Bamboo flowsheet Cain Mendoza DO Work Phone: [facility] Start: 12-23-2024 End: 12-24-2024 Bamboo flowsheet Cain Mendoza DO Work Phone: [facility] Start: 12-23-2024 End: 12-24-2024 Clinisync Result Encounter Cain Yateso DO Work Phone: [facility] External Department Unsolicited [...] 9w6d Start: 10-20-2024 End: 10-20-2024 ambulatory [facility] Start: 10-20-2024 End: 10-20-2024 Subsequent hospital visit by physician [facility] Start: 10-18-2024 End: 10-18-2024 ambulatory [facility] Start: 10-18-2024 End: 10-18-2024 Subsequent hospital visit by physician [facility] Start: 04-06-2024 End: 04-06-2024 ambulatory PHYSICIAN TWIN [place] Work Phone: Start: 04-06-2024 End: 04-06-2024 Patient encounter procedure PHYSICIAN TWIN [facility] Work Phone: Start: 04-15-2022 End: 04-15-2022 Subsequent hospital visit by physician [facility] Start: 02-08-2022 End: 02-08-2022 Subsequent hospital visit by physician [facility] Start: 01-14-2022 End: 01-14-2022 Subsequent hospital visit by physician [facility] Start: 01-07-2022 End: 01-07-2022 Subsequent hospital visit by physician [facility] Start: 12-10-2021 End: 12-10-2021 Subsequent hospital visit by physician [facility] Start: 09-26-2021 End: 09-26-2021 Subsequent hospital visit by physician [facility] Start: 09-17-2021 End: 09-17-2021 Subsequent hospital visit by physician [facility] Start: 06-25-2021 End: 06-25-2021 Subsequent hospital visit by physician [facility] Start: 02-15-2021 End: 02-15-2021 Subsequent hospital visit by physician [facility] Covid19 Pat Screening Schedule [facility] Comment on above: Arrived Start: 01-11-2021 End: 01-11-2021 Subsequent hospital visit by physician [facility] Procedures Date Procedure Procedure Detail Performing Clinician Start: 04-27-2025 US OB BPP W NON-STRESS George Scherer [employer] Work Phone: Start: 04-19-2025 US OB BPP W NON-STRESS Cain Mendoza DO Work Phone: Start: 04-19-2025 US RENAL BI Cain Fazi o DO Work Phone: Start: 04-18-2025 [facility] UA (CLEAN/CATCH) EMBROIDERY SPECIALIST/MICRO IF IND. Cain Mendoza DO Work Phone: Start: 04-18-2025 Urnls dip stick/tabl et rgnt [...] Cain Fa zio DO Work Phone: Start: 04-05-2025 US OB BPP W NON-STRESS Cain Mendoza DO Work Phone: Start: 03-03-2025 Urnls dip [...] prsmv instrmnt chem analyzers pr date Cain Dave Donaldson MD Work Phone: Start: 12-23-2024 MHPT CBC WITH DIFF Shakira y Mendoza DO Work Phone: Start: 12-23-2024 [...] Phone: Start: 01-11-2021 Assay of estradiol Summer k Cecilio Dorantes Work Phone: Start: 01-11-2021 Assay of progesterone Jovana hickman Cecilio Dorantes Work Phone: Start: 01-11-2021 Assay of prolactin Summer rojas Cecilio Dorantes Work Phone: Start: 01-11-2021 Assay of thyroid stimulating hormone tsh Pedro Luis Dorantes Work Phone: Start: 01-11-2021 Blood typing serologic abo Pedro Luis Cecilio Dorantes Work Phone: Start: 01-11-2021 Gonadotropin chorion ic quantitative Pedro Luis Dorantes Work Phone: Start: 01-11-2021 Gonadotropin follicl e stimulating hormone Jeevannatacha Dorantes Work Phone: Start: 01-11-2021 Gonadotropin luteini zing hormone Jeevannatacha Dorantes Work Phone: Start: 01-11-2021 Hepatitis b [...] Td Vaccines (2 - Td or Tdap) [facility] Start: 01-21-2028 Screening for malign ant neoplasm of cervix [facility] Start: 02-08-2026 Adult BMI Screening Adult BMI Screen ing [facility] Start: 02-08-2026 Tobacco Screening Tobacco Screening [facility] Start: 01-26-2026 Adult BMI Screening Adult BMI Screen ing [facility] Start: 01-26-2026 Tobacco Screening Tobacco Screening [facility] Start: 07-04-2025 Influenza vaccination Influenza Vacc ine [facility] Start: 06-03-2025 Influenza vaccination Flu vacc ine (Season Ended) [facility] Start: 05-23-2025 End: 05-23-2025 Telemedicine consultation with patient 05/23/2025 1:30 PM EDT Telemedicine Maternal- Medicine at [facility] [address] [place] [phone] Devika Pulido, PA-C [address] [facility] [address] [address] Maternal- Medicine at [facility] Start: 05-12-2025 End: 05-12-2025 Patient encounter procedure 05/12/2025 8:00 AM EDT Appointment [facility] [address] [address] [facility] Start: 05-03-2025 End: 05-03-2025 Patient encounter procedure 05/03/2025 8:50 AM EDT Routine [facility] [address] [place] [address] Christy Burnett PA [address] [place] [address] [facility] Start: 04-25-2025 End: 04-25-2025 Telemedicine consultation with patient 04/25/2025 11:30 AM EDT Telemedicine Maternal- Medicine at [facility] [address] [facility] [place] [phone] Devika Pulido PA-C [address] [place] [address] Maternal- Medicine at [facility] Start: 04-18-2025 End: 04-18-2025 Patient encounter procedure 04/18/2025 10:10 AM EDT Routine [facility] [address] [place] [address] Cain Donaldson DO [address] [place] [address] [facility] Start: 04-14-2025 End: 04-14-2025 Patient encounter procedure 04/14/2025 8:00 AM EDT Appointment [facility] [place] [address] [facility] [address] [place] [address] [facility] [place] Start: 03-30-2025 End: 09-30-2025 US biophysical profile w non stress test US biophysical profile w non stress test Imaging Routine Gestational diabetes mellitus (GDM), antepartum, gestational diabetes method of control unspecified Factor 5 Leiden mutation, heterozygous (CMS/HCC) Conceived by in vitro fertilization Expected: 03/30/2025 (Approximate), Expires: 09/30/2025 [facility] Comment on above: Expected: 03/30/2025 (Approximate), Expires: 09/30/2025 Start: 03-30-2025 End: 07-31-2025 US for US OB follow up transabdominal approach Imaging Routine Gestational diabetes mellitus (GDM), antepartum, gestational diabetes method of control unspecified Factor 5 Leiden mutation, heterozygous (CMS/HCC) Conceived by in vitro fertilization Expected: 03/30/2025, Expires: 07/31/2025 [facility] Work Phone: Comment on above: Expected: 03/30/2025 , Expires: 07/31/2025 Start: 03-30-2025 End: 03-30-2025 Telemedicine consultation with patient 03/30/2025 1:30 PM EDT Telemedicine Maternal- Medicine at [facility] [address] [place] [phone] Apollo Martinez, BENEFITS TECHNICIAN-EXPERIMENTAL PSYCHOLOGIST [address] [place] [address] Maternal- Medicine at [facility] Start: 03-30-2025 End: 03-30-2025 Patient encounter procedure [facility] Comment on above: Arrived Start: 03-16-2025 End: 03-16-2025 Patient encounter procedure 03/16/2025 8:00 AM EDT Appointment [facility] Imaging [address] [place] [phone] [facility] Start: 03-03-2025 End: 03-03-2026 Alanine aminotransferase [Enzymatic activity/volume] in Serum or Plasma ALT Lab Routine 23 weeks gestation of induced hypertension, antepartum Expected: 03/03/2025 (Approximate), Expires: 03/03/2026 [facility] Comment on above: Expected: 03/03/2025 (Approximate), Expires: 03/03/2026 Start: 03-03-2025 End: 03-03-2026 Aspartate aminotransferase [Enzymatic activity/volume] in Serum or Plasma AST Lab Routine 23 weeks gestation of induced hypertension, antepartum Expected: 03/03/2025 (Approximate), Expires: 03/03/2026 [facility] Comment on above: Expected: 03/03/2025 (Approximate), Expires: 03/03/2026 Start: 03-03-2025 End: 03-03-2026 CBC W Auto Differential panel - Blood CBC and differential Lab Routine 23 weeks gestation of induced hypertension, antepartum Expected: 03/03/2025 (Approximate), Expires: 03/03/2026 [facility] Comment on above: Expected: 03/03/2025 (Approximate), Expires: 03/03/2026 Start: 03-03-2025 End: 03-03-2026 Creatinine [Mass/volume] in Serum or Plasma Creatinine Lab Routine 23 weeks gestation of induced hypertension, antepartum Expected: 03/03/2025 (Approximate), Expires: 03/03/2026 [facility] Work Phone: Comment on above: Expected: 03/03/2025 (Approximate), Expires: 03/03/2026 Start: 03-03-2025 End: 03-03-2026 Lactate dehydrogenase [Enzymatic activity/volume] in Serum or Plasma by Lactate to pyruvate reaction Lactate dehydrogenase Lab Routine 23 weeks gestation of induced hypertension, antepartum Expected: 03/03/2025, Expires: 03/03/2026 [facility] Comment on above: Expected: 03/03/2025 , Expires: 03/03/2026 Start: 03-03-2025 End: 03-03-2026 Protein, urine, 24 hour Protein, urine, 24 hour Lab Routine 23 weeks gestation of induced hypertension, antepartum Expected: 03/03/2025 (Approximate), Expires: 03/03/2026 [facility] Comment on above: Expected: 03/03/2025 (Approximate), Expires: 03/03/2026 Start: 03-03-2025 End: 03-03-2026 Pt and ptt Pt and ptt Lab Routine 23 weeks gestation of induced hypertension, antepartum Expected: 03/03/2025, Expires: 03/03/2026 [facility] Comment on above: Expected: 03/03/2025 , Expires: 03/03/2026 Start: 03-03-2025 End: 03-03-2026 Urate [Mass/volume] in Serum or Plasma Uric acid Lab Routine 23 weeks gestation of induced hypertension, antepartum Expected: 03/03/2025 (Approximate), Expires: 03/03/2026 [facility] Comment on above: Expected: 03/03/2025 (Approximate), Expires: 03/03/2026 Start: 03-03-2025 End: 03-03-2026 Urea nitrogen [Mass/volume] in Serum or Plasma BUN Lab Routine 23 weeks gestation of induced hypertension, antepartum Expected: 03/03/2025, Expires: 03/03/2026 [facility] Comment on above: Expected: 03/03/2025 , Expires: 03/03/2026 Start: 03-03-2025 End: 03-03-2025 Patient encounter procedure 03/03/2025 8:40 AM EDT Routine [facility] [address] [place] [address] Cain Donaldson DO [address] [facility] [place] [address] Arrived [facility] Comment on above: Arrived Start: 02-24-2025 End: 02-24-2025 Patient encounter procedure 02/24/2025 1:00 PM EDT Office Visit Maternal- Medicine at [facility] [address] [place] [phone] Apollo Martinez, BENEFITS TECHNICIAN-EXPERIMENTAL PSYCHOLOGIST [address] [place] [address] Maternal- Medicine at [facility] Start: 02-08-2025 End: 02-08-2026 US MFM with or without consult US MFM with or without consult Imaging Routine Insulin controlled gestational diabetes mellitus (GDM) in second trimester Choroid plexus cyst of fetus affecting care of mother, antepartum, single or unspecified fetus Heterozygous factor V Leiden affecting in second trimester, antepartum Severe obesity due to excess calories affecting , antepartum ([facility]) Expected: 02/08/2025, Expires: 02/08/2026 [facility] Work Phone: Comment on above: Expected: 02/08/2025 , Expires: 02/08/2026 Start: 02-08-2025 End: 02-08-2025 Patient encounter procedure [facility] US Imaging Start: 01-26-2025 End: 01-26-2025 Patient encounter procedure 01/26/2025 3:30 PM EDT Office Visit Maternal- Medicine at [facility] [address] [facility] [place] [address] Apollo Martinez, UMM-EXPERIMENTAL PSYCHOLOGIST [address] [facility] [place] [address] Maternal- Medicine at [facility] Start: 01-26-2025 End: 01-26-2025 ambulatory 01/26/2025 1:30 PM EDT Support Visit Maternal- Medicine at [facility] [address] [facility] [place] [address] Kenzie Rhodes, RD [address] [facility] [address] [place] [address] Maternal- Medicine at [facility] Start: 01-20-2025 End: 02-20-2025 Alpha fetoprotein, [...] gestational age Expected: 11/25/2024 (Approximate), Expires: 11/25/2025 [facility] Comment on above: Expected: 11/25/2024 (Approximate), Expires: 11/25/2025 Start: 11-25-2024 End: 11-25-2025 Blood type and Indirect antibody screen panel - Blood Type and screen Lab Routine Missed menses , unspecified gestational age Expected: 11/25/2024 (Approximate), Expires: 11/25/2025 [facility] Work Phone: Comment on above: Expected: 11/25/2024 (Approximate), Expires: 11/25/2025 Start: 11-25-2024 End: 11-25-2025 Drugs of abuse panel - Urine by Screen method Rapid drug screen, urine Lab Routine , unspecified gestational age Encounter for supervision of normal first in first trimester Expected: 11/25/2024 (Approximate), Expires: 11/25/2025 [facility] Comment on above: Expected: 11/25/2024 (Approximate), Expires: 11/25/2025 Start: 07-04-2024 COVID-19 Vaccine ( season) COVID-19 Vaccine ( season) [facility] Start: 07-04-2024 COVID-19 Vaccine ( season) COVID-19 Vaccine ( season) [facility] Start: 07-04-2024 Influenza vaccination Influenza Vacc ine [facility] Start: 06-03-2024 Influenza vaccination Flu vaccine (# 1) [facility] Start: 11-24-2023 Screening for malign ant neoplasm of cervix Pap Smear [facility] Start: 2023 Screening for malign ant neoplasm of cervix [facility] Start: 07-04-2022 Influenza vaccination Flu vacc ine (Season Ended) [facility] Start: 07-04-2021 Influenza vaccination [facility] Start: 07-04-2020 Influenza vaccination Flu vaccine (# 1) [facility] Work Phone: Start: 07-03-2015 DTaP,Tdap and Td Vac cines (2 - Tdap) DTaP,Tdap and Td Vaccines (2 - Tdap) [facility] [employer] [facility] Start: 2014 Screening for malign ant neoplasm of cervix [facility] [employer] Start: 2012 DTaP/Tdap/Td vaccine (1 - Tdap) DTaP/Tdap/Td vaccine (1 - Tdap) [facility] [employer] Start: 2012 Hepatitis B vaccine (1 of 3 - 19+ 3-dose series) Hepatitis B vaccine (1 of 3 - 19+ 3-dose series) [facility] Start: 2011 Adult BMI Follow Up Plan Adult BMI Follow Up Plan [facility] Start: 2011 Adult BMI Screening Adult BMI Screen ing [facility] Start: 2009 COVID-19 Vaccine (1) COVID-19 Vaccin e (1) [facility] Phone[facility] Start: 2006 Varicella vaccine (1 of 2 - 13+ 2-dose series) Varicella vaccine (1 of 2 - 13+ 2-dose series) [facility] [employer] Start: 2005 COVID-19 Vaccine (1) COVID-19 Vaccin e (1) [facility] [employer] Start: 2005 Depression Screen Depression Screen [facility] Start: 2005 Depression Screening Depression Scre ening [facility] Start: 2005 Tobacco Screening Tobacco Screening [facility] Start: 1998 COVID-19 Vaccine (1) COVID-19 Vaccin e (1) [facility] Start: 1994 Varicella vaccine (1 of 2 - 2-dose childhood series) Varicella vaccine (1 of 2 - 2-dose childhood series) [facility] [employer] End: 02-08-2025 Alpha Fetoprotein, Maternal [facility] [employer] Phone: Comment on above: Once for 1 Occurrenc es starting 02/08/2025 until 02/08/2025 End: 01-11-2021 Anti Mullerian Hormone Anti Mullerian Hormone Lab Routine Once for 1 Occurrences starting 01/11/2021 until 01/11/2021 [facility]: Comment on above: Once for 1 Occurrenc es starting 01/11/2021 until 01/11/2021 Anti Mullerian Hormone Anti Keeley erian Hormone Lab Routine 01/11/2021 1:58 PM [employer] Phone: Bacteria identified in Urine by Culture Urine culture Microbiology Routine Missed menses Ordered: 11/25/2024 [facility] Comment on above: Ordered: 11/25/2024 End: 01-11-2021 C.trachomatis N.gonorrhoeae DNA, Urine C.trachomatis N.gonorrhoeae DNA, Urine Microbiology Routine Once for 1 Occurrences starting 01/11/2021 until 01/11/2021 [employer] Phone: Comment on above: Once for 1 Occurrenc es starting 01/11/2021 until 01/11/2021 C.trachomatis N.gonorrhoeae DNA, Urine C.trachomatis N.gonorrhoeae DNA, Urine Microbiology Routine 01/11/2021 2:29 PM [employer] Phone: CBC W Auto Different ial panel - Blood CBC and differential Lab Routine Missed menses , unspecified gestational age Ordered: 11/25/2024 [facility] Comment on above: Ordered: 11/25/2024 CHLAMYDIA TRACHOMATI S (GENITO/STI) CHLAMYDIA TRACHOMATIS (GENITO/STI) Lab Routine Exposure to STD Ordered: 01/20/2025 [facility] Comment on above: Ordered: 01/20/2025 End: 02-15-2021 COVID-19 COVID-19 Lab Routine Once for 1 Occurrences starting 02/15/2021 until 02/15/2021 [employer] Phone: Comment on above: Once for 1 Occurrenc es starting 02/15/2021 until 02/15/2021 COVID-19 COVID-19 Lab Rou linda 02/15/2021 3:10 PM EDT [employer] Phone: End: 12-23-2024 Culture, Urine [facility] [employer] Comment on above: Once for 1 Occurrenc es starting 12/23/2024 until 12/23/2024 Cytology Cervical or vaginal smear or scraping study Pap Smear Pathology and Cytology Routine Well woman exam with routine gynecological exam Ordered: 01/20/2025 [facility] Comment on above: Ordered: 01/20/2025 End: 01-11-2021 Factor 5 Leiden Factor 5 Leiden Lab Routine Once for 1 Occurrences starting 01/11/2021 until 01/11/2021 [employer] Phone: Comment on above: Once for 1 Occurrenc es starting 01/11/2021 until 01/11/2021 Factor 5 Leiden Factor 5 Leiden Lab Routine 01/11/2021 1:58 PM [employer] Phone: End: 01-11-2021 HbA1c (Bld) [Mass fraction] Hemoglobin A1C Lab Routine Once for 1 Occurrences starting 01/11/2021 until 01/11/2021 [employer] Phone: Comment on above: Once for 1 Occurrenc es starting 01/11/2021 until 01/11/2021 HbA1c (Bld) [Mass fraction] Hemoglobin A1C Lab Routine 01/11/2021 1:58 PM [employer] Phone: Hemoglobin A1c/Hemoglobin.total in Blood Hemoglobin A1c Lab Routine Missed menses , unspecified gestational age Ordered: 11/25/2024 [facility] Comment on above: Ordered: 11/25/2024 End: 12-23-2024 Hemoglobin A1c/Hemoglobin.total in Blood [facility] Comment on above: Once for 1 Occurrenc es starting 12/23/2024 until 12/23/2024 End: 12-23-2024 Hepatitis B Surface Antigen [facility] Comment on above: Once for 1 Occurrenc es starting 12/23/2024 until 12/23/2024 Hepatitis B virus urbano rface Ag [Presence] in Serum or Plasma by Immunoassay Hepatitis B surface antigen Lab Routine Missed menses , unspecified gestational age Ordered: 11/25/2024 [facility] Comment on above: Ordered: 11/25/2024 End: 12-23-2024 Hepatitis C Antibody [facility] Work Phone: Comment on above: Once for 1 Occurrenc es starting 12/23/2024 until 12/23/2024 Hepatitis C virus Ab [Presence] in Serum or Plasma by Immunoassay Hepatitis C antibody Lab Routine Missed menses , unspecified gestational age Ordered: 11/25/2024 [facility] Comment on above: Ordered: 11/25/2024 End: 12-23-2024 HIV Screen [facility] Comment on above: Once for 1 Occurrenc es starting 12/23/2024 until 12/23/2024 HIV-1/HIV-2 antigen/antibody combination immunoassay HIV-1 and HIV-2 antibodies Lab Routine Missed menses , unspecified gestational age Ordered: 11/25/2024 [facility] Comment on above: Ordered: 11/25/2024 Human papilloma viru s DNA [Presence] in Unspecified specimen by Probe with amplification HPV DNA probe, amplified Microbiology Routine Well woman exam with routine gynecological exam Ordered: 01/20/2025 [facility] Comment on above: Ordered: 01/20/2025 Neisseria gonorrhoea e DNA [Presence] in Unspecified specimen by JOSELYN with probe detection Neisseria gonorrhea DNA probe, direct Lab Routine Exposure to STD Ordered: 01/20/2025 [facility] Comment on above: Ordered: 01/20/2025 End: 01-11-2021 Prothrombin Gene Mutation Prothrombin Gene Mutation Lab Routine Once for 1 Occurrences starting 01/11/2021 until 01/11/2021 [employer] Phone: Comment on above: Once for 1 Occurrenc es starting 01/11/2021 until 01/11/2021 Prothrombin Gene Mutation Prothr ombin Gene Mutation Lab Routine 01/11/2021 1:58 PM EST [employer] Phone: Reagin Ab [Presence] in Serum by RPR RPR Lab Routine Missed menses , unspecified gestational age Ordered: 11/25/2024 [facility] Comment on above: Ordered: 11/25/2024 Rubella antibody, IgG Rubella an tibody, IgG Lab Routine Missed menses , unspecified gestational age Ordered: 11/25/2024 [facility] Comment on above: Ordered: 11/25/2024 End: 12-23-2024 Rubella antibody, IgG [facility] [employer] Comment on above: Once for 1 Occurrenc es starting 12/23/2024 until 12/23/2024 SURESWAB(R) ADVANCED VAGINITIS PLUS, TMA SURESWAB(R) ADVANCED VAGINITIS PLUS, TMA Pathology and Cytology Routine Vaginal discharge Ordered: 01/20/2025 [facility] Comment on above: Ordered: 01/20/2025 End: 01-11-2021 T. pallidum Ab T. pallidum Ab Lab Routine Once for 1 Occurrences starting 01/11/2021 until 01/11/2021 [employer] Phone: Comment on above: Once for 1 Occurrenc es starting 01/11/2021 until 01/11/2021 T. pallidum Ab T. pallidum Ab L ab Routine 01/11/2021 1:58 PM [employer] Phone: End: 12-23-2024 T. pallidum Ab [facility] Comment on above: Once for 1 Occurrenc [...] due to excess calories affecting , antepartum ([facility]) Bipolar disorder, in full remission, most recent episode depressed 1 Occurrences starting 02/08/2025 until 02/08/2026 [facility] Work Phone: Comment on above: 1 Occurrences starti ng 02/08/2025 until 02/08/2026 End: 01-11-2021 Varicella Zoster Antibody, IgG Varicella Zoster Antibody, IgG Lab Routine Once for 1 Occurrences starting 01/11/2021 until 01/11/2021 [employer] Phone: Comment on above: Once for 1 Occurrenc es starting 01/11/2021 until 01/11/2021 Varicella Zoster Ant ibody, IgG Varicella Zoster Antibody, IgG Lab Routine 01/11/2021 1:58 PM [employer] Phone: End: 01-11-2021 Vitamin D 25 Hydroxy Vitamin D 25 Hydroxy Lab Routine Once for 1 Occurrences starting 01/11/2021 until 01/11/2021 [employer] Work Phone: Comment on above: Once for 1 Occurrenc es starting 01/11/2021 until 01/11/2021 Vitamin D 25 Hydroxy [facility] Work Phone: End: 06-25-2021 Vitamin D 25 Hydroxy Vitamin D 25 Hydroxy Lab Routine Once for 1 Occurrences starting 06/25/2021 until 06/25/2021 [employer] Work Phone: Comment on above: Once for 1 Occurrenc es starting 06/25/2021 until 06/25/2021 Immunizations Immunization Date Immunization Notes Care Provider Fa cili 08-03-2024 influenza virus vaccine, unspecified formulation [facility] Prado LPN [facility] 09-08-2023 influenza virus vaccine, unspecified formulation Jaida Chadwick MD Work Phone: [facility] Payers Date Payer Category Payer [facility] BCBS [id number] 2024 Self-pay 2020 [facility] Managed Care - Other [id number] 2014 Unknown [id number] 1993 Unknown [id number] 1993 Unknown [id number] 2.16.840.1.843498.3.579. 2.174 1993 Unknown [id number] 2.16.840.1.242561.3.579. 2.174 1993 Unknown [id number] 2.16.840.1.768628.3.579. 2.174 1993 Unknown [id number] 2.16.840.1.700051.3.579. 2.1285 1993 Unknown [id number] 2.16840.1.636709.3.579. 2.1258 1993 Unknown [id number] 2.16840.1.709769.3.579. 2.1258 1993 Unknown [id number] 2.16840.1.888732.3.579. 2.1258 1993 Unknown [id number] 2.16840.1.594235.3.579. 2.1258 1993 Unknown [id number] 2.16840.1.770784.3.579. 2.1258 1993 Unknown [id number] 2.16.840.1.803742.3.579. 2.1258 1993 Unknown [id number] 2.16.840.1.129066.3.579. 2.1258 1993 Unknown [id number] 2.16.840.1.234887.3.579. 2.1285 1993 Unknown [id number] 2.16.840.1.936080.3.579. 2.128 1993 Unknown [id number] 2.16.840.1.838784.3.579. 2.128 1993 Unknown [id number] 2.16.840.1.230829.3.579. 2.128 1993 Unknown [id number] 2.16.840.1.855802.3.579. 2.1285 1993 Unknown [id number] 2.16.840.1.377029.3.579. 2.1285 1993 Unknown [id number] 2.16.840.1.953185.3.579. 2.1285 1993 Unknown [id number] 2.16.840.1.736139.3.579. 2.1285 1993 Unknown [id number] 2.16.840.1.410888.3.579. 2.727 Unknown [id number] 2.16.840.1.815363.3.579. 2.531 Social History Date Type Detail Facility Tobacco smoking stat [facility] Unknown if ever smoked [facility] Phone: Start: 1993 Sex Assigned At Not on file M [facility] Phone: Tobacco smoking stat [facility] Tobacco smoking consumption unknown [facility] Start: 1993 Sex Assigned At Female F [facility] Start: 02-20-2013 End: 11-15-2020 History of Social function [facility] Start: 02-20-2013 End: 11-15-2020 Tobacco use panel [facility] Start: 10-01-2024 [facility] Start: 11-24-2024 Gender identity Identifies as female gender (finding) [facility] Start: 06-06-2015 End: 12-29-2024 Sex Female (finding) [facility] Start: 11-24-2020 End: 02-08-2025 Tobacco smoking status NHIS Ex-smoker [facility] Start: 11-03-2020 End: 11-03-2010 History of tobacco use Current smoker [facility] Start: 11-03-2020 End: 11-03-2010 History of tobacco use Cigarette Smoker [facility] Start: 11-24-2020 End: 02-08-2025 Tobacco use and exposure Smokeless tobacco non-user [facility] Start: 12-30-2024 End: 02-08-2025 Alcoholic beverage intake Ex-drinker (finding) [facility] Procedure Code Equipment Code Equipment Origin al Text Equipment Identifier Dates [id number] Start: 12-23-2024 End: 01-22-2025 1 each by In Vit ro route Daily Use to check FSBS four times daily [id number] Start: 12-23-2024 End: 01-22-2025 Use 2 syringes i n the morning for insulin dosage and 2 syringes in the Evening for insulin dosage. Total of 4 syringes daily needed. [id number] Start: 01-07-2025 Goals Date Patient Goal Desired Activity /State Personal health goal Clinical Notes 11-25-2024 to 04-25-2025 Devika Pulido PA-C - 04/25/2025 11:30 AM EDTTelephone Encounter - Giselle Cheng CMA - 04/25/2025 8:35 AM EDTTelephone Encounter - Giselle Cheng [facility] - 04/25/2025 8:35 AM EDTPatient Instructions Note Date & Type Note Facility 04-25-2025 History of Present illness Narrative Maternal- Medicine Consultation VIDEO Patient is present at home, provider present at [facility] HISTORY OF PRESENT ILLNESS: Fannie White is a 29 y.o. female at 31w2d due on Estimated Date of Delivery: 06/25/25 complicated by prediabetes with early onset GDM, PCOS, Heterozygous Factor V Leiden, h/o bipolar, IVF . Patient is feeling well today. She denies contractions, vaginal bleeding, leaking fluid. She appreciates movement. Patient denies headache, visual symptoms, right upper abdominal pain, increase in edema, SOB, chest pain. Last week had right lower back pain start - presented to hospital and found to have have #2 kidney stones on left, #1 on right. She is following urology through [facility]. Her pain and symptoms have improved, are [...] meal., Disp: , Rfl: blood-glucose meter [facility] [place], 4 (four) times a [...] Disp: , Rfl: lancets (LANCETS,ULTRA THIN) [facility] [place], Use to check blood sugar 4 times daily. Fasting in the morning, and 1 hour after each meal., Disp: , Rfl: PNV no.153/FA/om3/dha/epa/fish ( GUMMIES ORAL), Take 2 tablets by mouth in the morning., Disp: , Rfl: LABS: Lab Results Component Value Date TSH 3.31 11/24/2020 No components found for: [facility] Lab Results Component Value Date CREATININE 0.73 [...] vaginal bleeding, and vaginal discharge PHYSICAL EXAMINATION: Gen: NAD DISCUSSION Glucose goals [...] signs/symptoms of hypoglycemia, and examples of treatment of hypoglycemia (15/15 rule). Discussed her current diet and her [...] Delivery recommendations : - Recommend delivery at [id number] - Discuss delivery if estimated weight is [...] daily, to be continued for 6 weeks Labor symptoms, preeclampsia sign/symptoms, and movement precautions reviewed. Follow up in 4 weeks with Maternal- Medicine. I asked her to keep sending values to us weekly by e-mail to: [email or web address] or by fax to: [phone] Devika Pulido PA-C Maternal- Medicine Office phone: [phone] Devika Pulido PA-C 04/25/25 1145 documented in this encounter [facility] 04-25-2025 Miscellaneous Notes DOCUMENT RESTORER CALLED PATIENT. NO ANSWER. LEFT VM ASKING THE PATIENT TO EMAIL US HER BLOOD GLUCOSE LOGS FOR HER UPCOMING APPOINTMENT WITH DEVIKA MARTINEZ. documented in this encounter [facility] 04-25-2025 Telephone encounter Note DOCUMENT RESTORER CALLED PATIENT. NO ANSWER. LEFT VM ASKING THE PATIENT TO EMAIL US HER BLOOD GLUCOSE LOGS FOR HER UPCOMING APPOINTMENT WITH DEVIKA MARTINEZ. [facility] 04-20-2025 Miscellaneous Notes Left message for patient that M provider reviewed blood sugar logs and no changes are needed at this time. Call back number provided. documented in this encounter [facility] 04-20-2025 Telephone encounter Note Left message for patient that MFM provider reviewed blood sugar logs and no changes are needed at this time. Call back number provided. [facility] 04-18-2025 History of Present illness Narrative Reason for Appointment: Patient ID: Fannie Whtie is a 29 y.o. female who presents [...] Medical History: Diagnosis Date SAB (spontaneous ) ([facility]) 10/2021 HISTORY PAST MEDICAL HISTORY SOCIAL HISTORY Past Medical History: Diagnosis Date SAB (spontaneous ) ([facility]) 10/2021 Social History Tobacco Use Smoking [...] nursing note reviewed. Exam conducted with a chief cook present. Vitals: There is no height or weight on file to calculate BMI. BP: No LMP recorded. Patient is . ASSESSMENT & PLAN ICD-10-CM 1. Third trimester ([facility]) Z34.93 2. 30 weeks gestation of ([facility]) Z3A.30 Return OB: Patient presents today [...] Cain Donaldson DO documented in this encounter [facility] 04-12-2025 Miscellaneous Notes Called pt to discuss her insulin change. Devika Pulido reviewed her blood sugars and would like her to increase her lantus in the evening to 25 units. Pt verbalized understanding and will start tonight. She will send in new blood sugars next week. documented in this encounter [facility] 04-12-2025 Telephone encounter Note Called pt to discuss her insulin change. Devika Pulido reviewed her blood sugars and would like her to increase her lantus in the evening to 25 units. Pt verbalized understanding and will start tonight. She will send in new blood sugars next week. [facility] 04-11-2025 History of Present illness Narrative BG levels evaluated - insulin adjusted Devika Pulido PA-C 04/11/25 1234 documented in this encounter [facility] 03-30-2025 History of Present illness Narrative REASON FOR OFFICE VISIT: Video Visit via Real-time Synchronous Audiovisual Provider Location: [facility] AT [address] [address] Patient Location: Patient's home Video [...] that there are some limitations compared to igby-dh-yesy evaluations. The patient consented to the presence [...] pain. +FM. She is being followed at [facility] due to GDMA2. States [...] meal., Disp: , Rfl: blood-glucose meter [facility], 4 (four) times a [...] Disp: , Rfl: lancets (LANCETS,ULTRA THIN) [facility] [place], Use to check blood sugar 4 times daily. Fasting in the morning, and 1 hour after each meal., Disp: , Rfl: PNV no.153/FA/om3/dha/epa/fish ( GUMMIES ORAL), Take 2 tablets by mouth in the morning., Disp: , Rfl: LABS: Lab Results Component Value Date CREATININE 0.73 01/06/2016 Lab Results Component Value Date TSH 3.31 11/24/2020 No results found for: [id number] Lab Results Component Value Date CREATININE 0.73 [...] values to us weekly by e-mail to: [email or web address] or by fax to: [phone] TIME OF CONSULTATION: 15 minutes with the patient, >50% in discussion and counseling, coordination of care which was nilw-nf-twib, review of records and communication back to referring provider. HOWARD Whitman 03/30/25 1344 documented in this encounter [facility] 03-30-2025 History of Present illness Narrative Reason [...] appointment. Patient continues to follow closely with [facility] and has telehealth visit today to review glucose logs. She continues on Lantus and doing well. No complaints today. Given orders for NST/BPP and has scheduled growth ultrasound with [facility]. Will obtain Hgb / hematocrit and platelets today. Documented by George Scherer NP on behalf of: George Scherer NP documented in this encounter [facility] 03-22-2025 Miscellaneous Notes Called pt and [...] sugars next week. documented in this encounter [facility] 03-22-2025 Telephone encounter Note Called pt [...] send in new blood sugars next week. [facility] 03-16-2025 Miscellaneous Notes Received BG results and all but 4 are in target range. No pattern noted. Called and left message of praise for all efforts and to call if questions. To send next week again. No changes. Continue your current insulin dose for this week. documented in this encounter [facility] 03-16-2025 Telephone encounter Note Received BG results and all but 4 are in target range. No pattern noted. Called and left message of praise for all efforts and to call if questions. To send next week again. No changes. Continue your current insulin dose for this week. [facility] 03-11-2025 Miscellaneous Notes Summary: [facility] Blood Glucose Log & Insulin Dose Change Called and spoke with Merna who did receive message from early this week about BG log reviewed and increased Lantus evening dose to 19 Units daily. Apologized for not returning call noting life has been busy, hectic with foster infant placement. Denied any questions. documented in this encounter [facility] 03-11-2025 Telephone encounter Note Summary: [facility] Blood Glucose Log & Insulin Dose Change Called and spoke with Merna who did receive message from early this week about BG log reviewed and increased Lantus evening dose to 19 Units daily. Apologized for not returning call noting life has been busy, hectic with foster infant placement. Denied any questions. [facility] Work Phone: 03-07-2025 Miscellaneous Notes Called pt [...] for this week. documented in this encounter [facility] 03-07-2025 Telephone encounter Note Called pt to discuss her insulin change for this week and received voicemail. Left her a message that Dr Wade reviewed her blood sugars and would like her to increase her lantus in the evening to 19 units. Asked her to please call back to verify she got this new insulin change for this week. [facility] History of Present illness Narrative Reason [...] urine order. Patient is currently also seeing [facility], which are also managing Gestational Diabetes. Patient voiced that insulin was just increased to 17 units at HS yesterday. Patient to return to clinic 4 weeks for routine OB. Documented by Bee Parkinson LPN on behalf of: Cain Donaldson DO documented in this encounter [facility] 03-01-2025 Miscellaneous Notes Called and notified patient that Pat MCKOY reviewed her blood sugar log and would like her to increase her Lantus to 17 units in the evening. Encouraged patient to write down what she is eating when having elevations greater than 140. Patient verbalized understanding. documented in this encounter [facility] 03-01-2025 Telephone encounter Note Called and notified patient that Pat MCKOY reviewed her blood sugar log and would like her to increase her Lantus to 17 units in the evening. Encouraged patient to write down what she is eating when having elevations greater than 140. Patient verbalized understanding. [facility] 02-24-2025 History of Present illness Narrative REASON FOR OFFICE VISIT: Video Visit via Real-time Synchronous Audiovisual Provider Location: [facility] AT [address] [address] Patient Location: Patient's home Video [...] that there are some limitations compared to aocf-pf-nlfn evaluations. The patient consented to the presence [...] chest pain. She is being followed at [facility] due to GDMA2. States she is [...] meal., Disp: , Rfl: blood-glucose meter [facility] [place], 4 (four) times a [...] Disp: , Rfl: lancets (LANCETS,ULTRA THIN) [facility] [place], Use to check blood sugar 4 times daily. Fasting in the morning, and 1 hour after each meal., Disp: , Rfl: PNV no.153/FA/om3/dha/epa/fish ( GUMMIES ORAL), Take 2 tablets by mouth in the morning., Disp: , Rfl: LABS: Lab Results Component Value Date CREATININE 0.73 01/06/2016 Lab Results Component Value Date TSH 3.31 11/24/2020 No results found for: [id number] Lab Results Component Value Date CREATININE 0.73 [...] elevated in diabetic pregnancies. Also, if the is large, which can still happen despite [...] values to us weekly by e-mail to: [email or web address] or by fax to: [phone] TIME OF CONSULTATION: 25 minutes with the patient, >50% in discussion and counseling, coordination of care which was unml-ac-dyig, review of records and communication back to referring provider. HOWARD Whitman 02/24/25 0526 documented in this encounter [facility] [facility] 02-17-2025 Miscellaneous Notes Notified patient by phone of low risk CFDNA results. My direct phone number was given in case any questions arise. documented in this encounter [facility] 02-17-2025 Telephone encounter Note Notified patient by phone of low risk CFDNA results. My direct phone number was given in case any questions arise. [facility] 02-15-2025 Miscellaneous Notes Called and spoke with patient regarding blood sugar log. Noted 6 elevations after insulin change to Lantus last week- 3 fastings and 3 PP (1 was 140). Patient reports last 2 days fasting was 85 and 93. Continues to try dietary changes. Encouraged patient to send in another log next week. documented in this encounter [facility] 02-15-2025 Telephone encounter Note Called and spoke with patient regarding blood sugar log. Noted 6 elevations after insulin change to Lantus last week- 3 fastings and 3 PP (1 was 140). Patient reports last 2 days fasting was 85 and 93. Continues to try dietary changes. Encouraged patient to send in another log next week. [facility] 02-08-2025 History of Present illness Narrative [...] clinic Have you been seen here at [facility] in a previous ? No Recent ER visits or hospitalizations? No Bring blood sugar log or meter with you today? (Please bring them with you for every visit at [facility]) N/A Flu vaccine (Sep-January)? Any concerns that you would like me to mention to the provider today? Does not want to know gender REASON FOR CONSULTATION: GDM A2, IVF factor 5 heterozygote HISTORY OF PRESENT ILLNESS: Fannie White is a pleasant 29 y.o. at 20w4d due on Estimated Date of Delivery: 06/24/25. complicated by: IVF with partner egg and donor sperm, dated by 5day embryo transfer on 10/07/2024, JANIYA 06/25/2025. 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 We discussed this finding. CPCs [...] send in blood glucose logs weekly to [facility] Recommend baseline HELLP labs including CBC, CMP, urine protein creatinine ratio, through primary OB Incomplete level 2 anatomy ultrasound echocardiogram, attempt completion in 4 weeks with [facility] Recommend growth ultrasounds every 4 weeks following completion of level 2 anatomy ultrasound, through primary OB Recommend twice weekly testing starting at 32 weeks gestation, through primary OB Delivery recommendations : Recommend delivery at [id number] Discuss delivery if estimated weight is >4500g [...] developing diabetes later on. Monitor for depression [facility] office follow up already scheduled in 3 weeks DISPOSITION: At this point the patient is in complete care of her operations mgr. Patient does have ultrasound and office visit [...] procedures Referring and communicating with other health medicare sales executive (not separately reported) Documenting clinical information in the electronic or other health record Jaida Chadwick MD Maternal- Medicine [facility] [address] [facility] [address] [place] [address] [facility], the CDC, and other organizations representing maternal and public health professionals recommend that , , and lactating people and those considering receive the COVID-19 vaccination. Vaccination is the best method to reduce maternal and complications of SARS-CoV-2 infection. This document was created with [employer] technology. Though I make every effort to review the dictation as it is transcribed, on occasion the spoken word can be misinterpreted by the technology leading to inappropriate words, phrases, or sentences. This note is addressed to the requesting provider as a consultation for clinical guidance. Specific medical abbreviations are occasionally used and those are generally approved by the [place]?Board of?Obstetrics and?Gynecology?as well as?Shaji s abbreviations. The above plan of care was based solely on the diagnoses for which a consultation was requested. ?More frequent testing may be indicated based on her other medical/obstetrical conditions. The management of other or medical conditions is beyond the scope of requested consultation and will continue to be followed by the primary operations mgr or primary care provider. Note to patient: [...] Patient tolerated well. documented in this encounter [facility] 02-03-2025 Miscellaneous Notes Received call from Nurse at Dr Donaldson's office who states they do not have any records of genetic testing. [facility] [employer] [place] call to Dr Pena's office at [facility] to inquire if they have any records of genetic testing for this - they also do not have any record of genetic testing. documented in this encounter [facility] 02-03-2025 Telephone encounter Note Received call from Nurse at Dr Donaldson's office who states they do not have any records of genetic testing. [employer] call to Dr Pena's office at [facility] to inquire if they have any records of genetic testing for this - they also do not have any record of genetic testing. [facility] 02-03-2025 Miscellaneous Notes Left voicemail for BELA Gamboa at Dr Donaldson's office requesting genetic testing that was completed prior to IVF be faxed over to my attention. documented in this encounter [facility] 02-03-2025 Telephone encounter Note Left voicemail for BELA Gamboa at Dr Donaldson's office requesting genetic testing that was completed prior to IVF be faxed over to my attention. [facility] 01-26-2025 History of Present illness Narrative [...] YES Have you been seen here at [facility] in a previous ? NO Recent ER visits or hospitalizations? NO Bring blood sugar log or meter with you today? (Please bring them with you for every visit at [facility]) YES, SEE LOGS. Flu vaccine [...] pain. +FM. She is being followed at [facility] due to GDMA2. States [...] meal., Disp: , Rfl: blood-glucose meter [facility], 4 (four) times a [...] Disp: , Rfl: lancets (LANCETS,ULTRA THIN) [facility] [place], Use to check blood sugar 4 times daily. Fasting in the morning, and 1 hour after each meal., Disp: , Rfl: metFORMIN (FORTAMET) 500 MG (OSM) 24 hr tablet, Take 1 tablet (500 mg total) by mouth daily with breakfast., Disp: , Rfl: [facility] no.153/FA/om3/dha/epa/fish ( GUMMIES ORAL), Take 2 tablets by mouth in the morning., Disp: , Rfl: LABS: Lab Results Component Value Date CREATININE 0.73 01/06/2016 Lab Results Component Value Date TSH 3.31 11/24/2020 No results found for: [id number] Lab Results Component Value Date CREATININE 0.73 [...] baby. Little research has been done on detention effects of Metformin exposure to the fetus. [...] values to us weekly by e-mail to: [email or web address] or by fax to: [phone] TIME OF CONSULTATION: 35 minutes with the patient, >50% in discussion and counseling, coordination of care which was [id number], review of records and communication back to referring provider. 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 Current Exercise program walking Who prepares the meal pt Who purchase food at your home? pt Equipment use for cooking/food storage has all Food Assistance(Ex.WIC, Food [place]) knows about Dining out Yes 1-2 times per month Appetite/Appetite changes slightly increasing Weight History stable Do you have cats at home? Infant Feeding Plans Breast Feeding If you have [...] care for you: OB Provider Family Doctor Quality Assurance Supervisor Trim Name: Mendoza Name: No primary care provider [...] syringe by miscellaneous route. lancets (LANCETS,ULTRA THIN) mis Use to check blood sugar 4 times [...] demonstration Is there anything about your culture, spiritism, or personal beliefs we need to know about to care for you: none Primary Language spoken: Beninese [22] Primary Language for learning: Beninese Are you currently in a relationship where you are physically hurt, threatened or made to fee afraid? [] Yes [x] No Customer Service Sales Consultant needed? [] Yes [x] No Marital status/Living [...] If yes, where: On thge following scale, twin hills the number, which describes your current level [...] use to treat your low blood sugars? [facility] pam Whtie was seen today and diabetes education was [...] Mondays. She had an appt with Apollo Martinez today, see her letter for details on her appt with Apollo and any medication changes and or lab work she may have ordered. Her blood sugars look really good since she started the insulin. only1-2 above target. Face to face time was 60min. . [facility]25 Instructions Sonya Lomax RN - 01/26/2025 [...] HOURS WHILE AWAKE [facility] History of Present illness Narrative Reason for Appointment: Patient ID: Fannie White is a 29 y.o. female who presents for Routine Visit Patient presents today for Return OB appointment. MEDICATIONS Current Outpatient Medications Medication Instructions Alcohol Swabs (Alcohol Prep Pad) 70 % pads 1 Pad, Topical, Daily, Use four times daily to check FSBS. Blood Glucose Monitoring Suppl ([employer] Glucometer) w/Device kit 1 kit, Does not [...] nursing note reviewed. Exam conducted with a chief cook present. Vitals: There is no height or [...] of: LEELEE Keita documented in this encounter [facility] 12-29-2024 Miscellaneous Notes I left a message for pt to call to schedule her us/ and consult, I will call her again documented in this encounter [facility] 12-29-2024 Telephone encounter Note I left a message for pt to call to schedule her us/ and consult, I will call her again [facility] 12-23-2024 History of Present illness Narrative Reason [...] nursing note reviewed. Exam conducted with a chief cook present. Vitals: There is no height or [...] or undercooked meat, [facility] Patient has been consulted regarding any further do's and don'ts of . Patient voiced understanding and all questions and concerns were answered. Patient has done 4 rounds of invitro to conceive this . 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 Patient will be referred to [facility] and can discuss medication at [...] Cain Donaldson DO documented in this encounter [facility] 11-25-2024 History of Present illness Narrative [...] or undercooked meat, [facility] Patient has also been advised to not change litter boxes and eat 6 small meals a day. Patient has been consulted regarding the do's and don'ts of . Patient was given labs and all questions and concerns were answered. Pt declined the [employer] gender/genetics form. Pt did state she is [...] Colette Zamarripa MA documented in this encounter [facility] Evaluation note No assessment inform ation available [facility] Work Phone: Evaluation note Diagnosis Missed [...] vitro fertilization, antepartum documented in this encounter [facility] Healthcare[facility]* Diagnosis Well woman exam with routine gynecological exam Routine gynecological examination 17 weeks gestation of Second trimester state, incidental Exposure to STD Vaginal discharge Leukorrhea, not specified as infective documented in this encounter [facility] Healthcare[facility]* Diagnosis Insulin controlled gestational diabetes mellitus (GDM) in second trimester- Primary [facility] Diagnosis Insulin controlled gestational diabetes mellitus (GDM) in second trimester documented in this encounter [facility]* Diagnosis Insulin controlled gestational diabetes [...] recent episode depressed documented in this encounter [facility]* Diagnosis Insulin controlled gestational diabetes mellitus (GDM) in second trimester- Primary Choroid plexus cyst of fetus affecting care of mother, antepartum, single or unspecified fetus Heterozygous factor V Leiden affecting in second trimester, antepartum Severe obesity due to excess calories affecting , antepartum (CMS-HCC) documented in this encounter [facility]* Diagnosis Insulin controlled gestational diabetes mellitus (GDM) in second trimester- Primary Recurrent major depressive disorder, in partial remission Bipolar 1 disorder (CMS-HCC) Prediabetes in mother during documented in this encounter [facility]* Diagnosis Insulin controlled gestational diabetes mellitus (GDM) in second trimester Prediabetes in mother during documented in this encounter [facility]* Diagnosis 23 weeks gestation of Second trimester state, incidental induced hypertension, antepartum Transient hypertension of , antepartum Insulin controlled gestational diabetes mellitus (GDM) during , antepartum documented in this encounter [facility]* Diagnosis Second trimester state, incidental 27 weeks gestation of Gestational diabetes mellitus (GDM), antepartum, gestational diabetes method of control unspecified Factor 5 Leiden mutation, heterozygous (CMS/HCC) Conceived by in vitro fertilization documented in this encounter [facility] Healthcare[facility] note* Diagnosis Insulin controlled gestational diabetes mellitus (GDM) in second trimester- Primary Recurrent major depressive disorder, in partial remission Prediabetes in mother during [facility] Diagnosis Insulin controlled gestational diabetes mellitus (GDM) in second trimester Prediabetes in mother during [facility] Diagnosis Third trimester (HHS-HCC) state, incidental 30 weeks gestation of (HHS-HCC) [facility] Diagnosis Insulin controlled gestational diabetes mellitus (GDM) in third trimester- Primary [facility] [...] content) DATE CREATED AUTHOR 04/18/2024 [facility] DATE CREATED AUTHOR AUTHOR'S ORGANIZ ATION 03/11/2025 [facility] DATE CREATED AUTHOR AUTHOR'S ORGANIZ ATION 04/16/2025 [facility] DATE CREATED AUTHOR AUTHOR'S ORGANIZ ATION 04/20/2025 [facility] DATE CREATED AUTHOR AUTHOR'S ORGANIZ ATION 04/26/2025 [facility] DATE CREATED AUTHOR AUTHOR'S ORGANIZ ATION 04/28/2025 [facility] Reason for Visit (unrecogniz ed section and content) Reason Comments Amenorrhea Reason Comments Routine Visit Reason Comments Gestational Diabetes Specialty Diagnoses / Procedures Referred By Contac t Referred To Contact Maternal and Medicine Diagnoses Insulin controlled gestational diabetes mellitus (GDM) in second trimester Cain Doanldson DO Phone: tel: fax: Maternal- Medicine at [facility] [address] [place] [address] Phone: tel: fax: Referral ID Status Reason Start Date Expiration Date Visits Requested Visits Authorized [id number] Pending Review Specialty Services Required 01/11/2025 01/11/2026 [...] BE BASED ON THE PRIMARY CLINICAL RECORDS. [employer] provides no warranty or guarantee of the accuracy or completeness of information in this document.
[2025-04-29 17:26] VITALS: BP 130/72; PULSE 81
== END 2025-04-29 18:01 | disposition home or self-care (01) ==
LOC: FBCO 17:05 → FBC 17:15
PROVIDERS: PCP Obstetrics & Gynecology; Visit Provider Obstetrics & Gynecology
DX: O24.419 Gestational diabetes mellitus in pregnancy, unspecified control (principal); Z3A.32 32 weeks gestation of pregnancy
CPT/HCPCS: 59025

== ENCOUNTER 2025-05-03 17:07 | Outpatient (OUT) | payer BC, SELFPAY ==
--- NOTE | 2025-05-03 17:14 | US_ITS ---
The [address] [address] Patient Name: FANNIE WHITE MRN: [facility]:[id number] date: 1995 Sex: F Assigned Patient Location: Current Patient Location: Accession/Order Number: [id number] Exam Date: 05/04/2025 07:57 Report Date: 05/04/2025 07:58 At the request of: GEORGE HALE Procedure: US OB BPP w non-stress BIOPHYSICAL PROFILE: CLINICAL INFORMATION: GESTATIONAL DIABETES MELLITUS O24.419 COMPARISON: 04/26/2025 There is a single live intrauterine gestation in cephalic presentation. The reported gestational age is 32 weeks 4 days. The heart rate measures 123 beats per minute. FINDINGS: TONE: 1 or more episodes of activity extension and flexion of extremity or opening and closing of the hand [Y] 2/2 GROSS BODY MOVEMENTS: 3 or more discrete body or limb movements [Y] 2/2 BREATHING MOVEMENTS: 1 or more episodes of breathing lasting at least 30 seconds [Y] 2/2 ZITA: A single deepest vertical pocket of amniotic fluid greater than 2 cm [Y] 2/2 ZITA: 10.5 cm. This is in low-normal range. Total score: 8/8 US/ OB BPP w non-stress IMPRESSION: NORMAL BIOPHYSICAL PROFILE Impression dictated by: Justina Munson M.D. 05/04/2025 7:58 AM Dictation Location: [place] [address] Electronically authenticated by: [id number] Y Date: 05/04/2025 07:58
[2025-05-03 17:48] VITALS: BP 115/75; PULSE 79
== END 2025-05-03 18:18 | disposition home or self-care (01) ==
LOC: US 17:08 → FBC 17:17
PROVIDERS: PCP Obstetrics & Gynecology; Visit Provider Nurse Practitioner Family
DX: O24.419 Gestational diabetes mellitus in pregnancy, unspecified control (principal); Z3A.32 32 weeks gestation of pregnancy
CPT/HCPCS: 76818

== ENCOUNTER 2025-05-10 17:01 | Outpatient (OUT) | payer BC, SELFPAY ==
--- OUTSIDE RECORDS SUMMARY | 2025-05-10 07:58 | XMS_ITS ---
Author Name Auto Generated Organization [place] Support Name Relationship Address Phone CINDYBRANDEE Next of Kin [address] [place] [phone] + CINDY, BRANDEE Next of Kin [address] [place] [phone] + CINDY, BRANDEE Next of Kin [address] [place] [phone] + CINDY, BRANDEE Next of [address] [address] + CINDY, BRANDEE Next of Kin [address] [place] [address] + CINDY, BRANDEE Next of Kin [address] [place] [address] + CINDY, BRANDEE Next of Kin [address] [place] [address] + CINDY, BRANDEE Next of Kin [address] [place] [address] + CINDY, BRANDEE Next of Kin [address] [place] [address] + CINDY, BRANDEE Next of Kin [address] [place] [address] + CINDY, BRANDEE Next of Kin [address] [place] [address] + CINDY, BRANDEE Next of Kin [address] [place] [address] + CINDY, BRANDEE Next of Kin [address] [place] [address] + CINDY, BRANDEE Next of Kin [address] [place] [address] [place] [address] + CINDY, BRANDEE Next of [place] [address] [place] [address], [place] [address] + CINDY, BRANDEE Next of [place] [address] [place] [address], [place] [address] + CINDY, BRANDEE Next of Pacsual [address] [place] [address], [place] [address] + CINDY, BRANDEE Next of Pascual [address] [place] [address], [place] [address] + Care Team Providers Care Career Development Consultant Name Role Phone ALFREDO PROCTOR Attending Unavailable LEX, MARIE Attending Unavailable HITESH, ALFREDO Attending Unavailable LEX, MARIE Attending Unavailable HITESH, ALFREDO Attending Unavailable LEX, MARIE Attending Unavailable LEX, MARIE Referring Unavailable ZOLTON, JOSE R Referring Unavailable ZOLTON, JOSE R Referring Unavailable HITESH, ALFREDO ACOSTA Referring Unavailable LEX, MARIE L Referring Unavailable RUFINO DOTSON Attending Unavailable HITESH, ALFREDO R Referring Unavailable LORI, APOLLO Attending Unavailable HITESH, ALFREDO R Referring Unavailable HITESH, ALFREDO R Referring Unavailable JAIDA RITTER Attending Unavailable HITESH, ALFREDO R Referring Unavailable LORI, APOLLO Attending Unavailable HITESH, ALFREDO R Referring Unavailable HITESH, ALFREDO R Referring Unavailable LORI, APOLLO Attending Unavailable HITESH, ALFREDO R Referring Unavailable HITESH, ALFREDO R Referring Unavailable JESUSITA LUU Attending Unavailable HITESH, ALFREDO R Referring Unavailable PROBLEMS DATE TYPE CONDITION / CODE ATTENDING STATUS [facility] 04/25/2025 Unknown Gestational diabetes mellitus in , insulin controlled / O24.414(ICD-10) JESUSITA LUU [facility] 04/14/2025 Unknown Encounter for ot her screening follow-up / Z36.2(ICD-10) NA [facility] 07/03/2016 Unknown Bipolar disorder , unspecified / F31.9(ICD-10) APOLLO SANDOVAL [facility] 05/29/2016 Unknown Major depressive disorder, recurrent, in partial remission / F33.41(ICD-10) APOLLO SANDOVAL [facility] 02/08/2025 Admitting diagnosis Encounter for supervision of normal , unspecified, second trimester / Z34.92(ICD-10) NA Active [facility] 02/08/2025 Unknown Encounter for ot her specified screening / Z36.89(ICD-10) NA [facility] 02/08/2025 Unknown Abnormal glucose complicating / O99.810(ICD-10) [facility] 02/08/2025 Unknown 20 weeks gestati on of / Z3A.20(ICD-10) [facility] 02/08/2025 Unknown Maternal care fo r (suspected) central nervous system malformation or damage in fetus, choroid plexus cysts, not applicable or unspecified / O35.03X0(ICD-10) [facility] 02/08/2025 Unknown Other diseases o f the blood and blood-forming organs and certain disorders involving the immune mechanism complicating , second trimester / O99.112(ICD-10) [facility] 02/08/2025 Unknown 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) [facility] 02/08/2025 Unknown Obesity complicating , unspecified trimester / O99.210(ICD-10) [facility] 02/08/2025 Unknown Morbid (severe) obesity due to excess calories / E66.01(ICD-10) [facility] 02/08/2025 Unknown Bipolar disorder , in full remission, most recent episode depressed / F31.76(ICD-10) [facility] 02/08/2025 Unknown GDMA2 / UNK(Unknown) [facility] 02/08/2025 Unknown Fertility Preservation / FREETEXT(AOF) [facility] 02/08/2025 Unknown Factor V Leiden Mutation / FREETEXT(AOF) JAIDA RITTER [facility] 01/26/2025 Unknown Gestational Diabetes / FREETEXT(AOF) RUFINO DOTSON [facility] 12/23/2024 Admitting diagnosis Encounter for supervision of normal , unspecified, unspecified trimester / Z34.90(ICD-10) [facility] 12/23/2024 Admitting diagnosis Encounter for supervision of normal first , first trimester / Z34.01(ICD-10) [facility] 12/23/2024 Admitting diagnosis Irregular menstruation, unspecified / N92.6(ICD-10) [facility] 10/20/2024 Admitting diagnosis Encounter for test, result positive / Z32.01(ICD-10) [facility] 10/18/2024 Admitting diagnosis Encounter for test, result unknown / Z32.00(ICD-10) [facility] PROCEDURES No Procedure Records Found RESULTS US OB FOLLOW UP TRANSABDOMINAL APPROACH Observed: 05/10/2025 7:59 AM Status: F Source: [facility] EP[facility] Order Comment: US OB SCAN FO R GROWTH Estimated Date of Delivery: 06/24/25 Gestational Age as of 05/03/2025: 33w3d FINDINGS: A single, live intrauterine is present [...] is 2262 grams (5 pounds, 0 ounces). IMPRESSION: Single, live intrauterine , current sonographic age of 34 weeks and 2 days, with an estimated date of delivery of June 19, 2025. * Estimated Weight (g) by Percentile is based upon an accurate estimated age based on last menstrual period. TRANSCRIBED BY: ELECTRONICALLY SIGNED BY: Mike Lucero MD AFP, MATERNAL Collected: 02/08/2025 6:07 PM Status: F Source: [facility] TYPE CODE TESTS RESULT OUT OF RANGE REFERENCE UNITS LAB DUEDAT(LOINC) Due Date SEE NOTE Result Comment: Results for Estimated Due Date: 06 24 25 LAB DETBY([facility]) Determined by Other LAB PTAFP(LOINC) Patient's AFP 41 ng/mL LAB MOMAFP(LOINC) MoM for AFP 0.85 LAB AFPINT(LOINC) Interpretation Screen Neg Result Comment: (NOTE) INTERPRETATION: SCREEN NEGATIVE for open spina bifida Neural Tube Defects (NTD) Negative Pre-Test Post-Test Cutoff Neural Tube Defects Risks 1:1030 < 1:41213 1:250 Comments: The risk of an open neural tube defect is less than the screening cut-off. This test was developed and its performance characteristics determined by [employer]. It has not been cleared or approved by the US Food and Drug Administration. This test was performed in a CLIA certified laboratory and is intended for clinical purposes. LAB MAGE(LOINC) [age] LAB MTWGHT(INC) Maternal Weight 231.0 lbs. LAB NUNU(LOINC) Gestat Age (exact) 20 wks, 4 days LAB NUMFET([facility]) Number of Fetuses [place]and[place] LAB MTRACE(LOINC) Maternal Race Nonblack LAB MDIAB([facility]) Ins Req Matern Diab No LAB SMOKE(LOINC) Smoking No [facility] Family History No LAB AFPSPC([facility]) Specimen See Note Result Comment: (NOTE) Initial sample Performed By: [employer] [address] [place] [address] Builder'S Labourer: Jose Joseph MD, PhD CLIA Number: [id number] Performed By: #### AAFPM ### # [employer] [address] [place] [address] Electroplater: Kenneth Krishna MD CBC WITH DIFF Collected: 12/23/2024 6:10 PM Status: F Source: [facility] TYPE CODE TESTS RESULT OUT OF RANGE REFERENCE UNITS LAB WBC(LOINC) WBC Count 7.2 3.5-11.0 k/uL LAB RBC(LOINC) RBC Count 4.23 4.00-5.20 m/uL LAB HGB(LOINC) Hemoglobin 12.5 12.0-16.0 g/dL LAB HCT(LOINC) Hematocrit 35.9 Low 36.0-46.0 % LAB MCV(LOINC) MCV 84.9 80.0-100.0 fL LAB MCH(LOINC) MCH 29.6 26.0-34.0 pg LAB MCHC(LOINC) MCHC 34.8 31.0-37.0 g/dL LAB RDW(LOINC) RDW 12.5 12.1-15.2 % LAB PLT(LOINC) Platelet Count 238 140-450 k/uL LAB MPVX(LOINC) MPV 9.9 6.0-12.0 fL LAB SEG(LOINC) Neutrophil (Seg) 68 47-75 % LAB LYM(LOINC) Lymphocyte 21 15-40 % LAB MON(LOINC) Monocyte 9 High 4-8 % LAB EO(LOINC) Eosinophil 2 0-5 % LAB BASO(LOINC) Basophil 0 0-2 % LAB IGRAN(LOINC) Immature Granulocyte 0 0-5 % LAB ASEG(LOINC) Abs.Neutrophil (Seg) 4.87 2.5-7.0 k/uL LAB ALYM(LOINC) Abs. Lymph 1.55 1.00-4.80 k/uL LAB AMONO(LOINC) Abs. Monocyte 0.65 0.00-1.00 k/u L LAB AEO(LOINC) Abs. Eosinophil 0.13 0.00-0.40 k/u L LAB ABASO(LOINC) Abs. Basophil 0.02 0.00-0.20 k/u L LAB AIGRAN(LOINC) Abs.Imm.Granulo cyte 0.02 0.00-0.30 k/uL Performed By: #### HBS, AUGUSTINE , HIVCMB, TREP, GLYHGB, AHCV #### [facility] [place] [address] Electroplater: Jason Rodriguez MD #### KARRI, SIDNEY #### [facility] [address] [place] [address] Electroplater: Sherwin Elam MD DRUG SCR, ABUSE, UR Collected: 12/23/2024 6:[address] atus: F Source: [facility] TYPE CODE TESTS RESULT OUT OF RANGE REFERENCE UNITS LAB AMPH(LOINC) Amphetamine(s),U r NEGATIVE NEG Result Comment: Cutoff: 1000 ng/mL LAB ISABEL(LOINC) Barbiturate(s),U r NEGATIVE NEG Result Comment: Cutoff: 200 ng/ml LAB FRANCIS(LOINC) Benzodiazepine(s ) NEGATIVE NEG Result Comment: Cutoff: 200 ng/ml LAB BE(LOINC) Cocaine Metabolite NEGATIVE NEG Result Comment: Cutoff: 300 ng/ml LAB METH(LOINC) Methadone NEGATIVE NEG Result Comment: Cutoff: 300 ng/ml LAB OPIA(LOINC) Opiate(s), Ur NEGATIVE NEG Result Comment: Cutoff: 300 ng/ml LAB PCP(LOINC) Phencyclidine, Ur NEGATIVE NEG Result Comment: Cutoff: 25 n g/ml LAB THC(LOINC) Cannabinoid(s),U r NEGATIVE NEG Result Comment: Cutoff: 50 n g/ml LAB UOXY(LOINC) Oxycodone, Urine NEGATIVE NEG Result Comment: Cutoff: 100 ng/ml LAB UFENT(LOINC) Fentanyl, Urine NEGATIVE NEG Result Comment: Cutoff: 5 ng /ml LAB DAUII(LOINC) Interpretive Info This method is a screening test to detect only these drug classes as part of a Result Comment: medical work up. Confirmatory testing by another method should be ordered if clinically indicated. Performed By: #### HBS, AUGUSTINE , HIVCMB, TREP, GLYHGB, AHCV #### [facility] [place] [address] Electroplater: Jason Rodriguez MD #### CDP, SIDNEY #### [facility] [address] [place] [address] Electroplater: Sherwin Elam MD HEMOGLOBIN A1C Collected: 12/23/2024 6:10 PM Status: F Source: [facility] TYPE CODE TESTS RESULT OUT OF RANGE REFERENCE UNITS LAB PA1CM(LOINC) Hemoglobin A1C 4.9 4.0-6.0 % LAB EAG(LOINC) Estimated Ave Gluc 94 mg/dL Result Comment: The ADA and AACC recommend providing the estimated average glucose result to permit better patient understanding of their HBA1c result. Performed By: #### HBS, AUGUSTINE , HIVCMB, TREP, GLYHGB, AHCV #### [address] [id number] Electroplater: Jason Rodriguez MD #### CDP, SIDNEY #### [facility] [address] [place], [place] [id number] Electroplater: Sherwin Elam MD HEP C AB Collected: 5 6:10 PM Status: F Source: [facility] TYPE CODE TESTS RESULT OUT OF RANGE REFERENCE UNITS LAB AHCV(LOINC) Hep C Ab NONREACTIVE NR Result Comment: The hepatitis C procedure used [...] HCV RNA by PCR. Performed By: #### HBS, AUGUSTINE , HIVCMB, TREP, GLYHGB, AHCV #### [address] [id number] Electroplater: Jason Rodriguez MD #### CDP, SIDNEY #### [facility] [address] [place], [place] [id number] Electroplater: Sherwin Elam MD HEP B SURF AG Collected: 5 6:10 PM Status: F Source: [facility] TYPE CODE TESTS RESULT OUT OF RANGE REFERENCE UNITS LAB HBS(LOINC) Hep B Surf Ag NONREACTIVE NR Performed By: #### HBS, AUGUSTINE , HIVCMB, TREP, GLYHGB, AHCV #### [address] [id number] Electroplater: Jason Rodriguez MD #### CDP, SIDNEY #### [facility] [address] [place] [address] Electroplater: Sherwin Elam MD RUBELLA AB, IGG Collected: 5 6:10 PM Status: F Source: [facility] TYPE CODE TESTS RESULT OUT OF RANGE REFERENCE UNITS LAB AUGUSTINE(LOINC) Rubella Ab, IgG 78.0 IU/mL Result Comment: <10 NON REACTIVE Negative for Anti-Rubella IgG >=10 REACTIVE Positive for Anti Rubella IgG The presence of IgG antibody to Rubella virus is an indication of previous exposure either by prior infection or vaccination. Performed By: #### HBS, AUGUSTINE , HIVCMB, TREP, GLYHGB, AHCV #### [address] [address] Electroplater: Jason Rodriguez MD #### CDP, SIDNEY #### [facility] [address] [place] [address] Electroplater: Sherwin Elam MD HIV AG/AB Collected: 5 6:10 PM Status: F Source: [facility] TYPE [facility] TESTS RESULT OUT OF RANGE REFERENCE UNITS LAB CMBHIV(LOINC) HIV Ag/Ab NONREACTIVE NR Result Comment: No laborator y evidence of HIV infection. If acute HIV infection is suspected, consider testing for HIV-1 RNA. Performed By: #### HBS, AUGUSTINE , HIVCMB, TREP, GLYHGB, AHCV #### [facility] [employer] [address] [place] [address] [id number] Electroplater: Jason Rodriguez MD #### CDP, SIDNEY #### [facility] [address] [place] [address] Electroplater: Sherwin Elam MD T.PALLIDUM AB SCREEN Collected: 025 6:10 PM Status: F Source: [facility] TYPE CODE TESTS RESULT OUT OF RANGE REFERENCE UNITS LAB TREPG(LOINC) T.pallidum Ab Screen NONREACTIVE NR Result Comment: T. pallidum antibodies are not detected. There is no serological evidence of infection with T. pallidum (early primary syphilis cannot be excluded). Retest in 2-4 weeks if syphilis is clinically suspect. Performed By: #### HBS, AUGUSTINE , HIVCMB, TREP, GLYHGB, AHCV #### [facility] [address] [place], [place] [id number] Electroplater: Jason Rodriguez MD #### CDP, SIDNEY #### [facility] [address] [place] [address] Electroplater: Sherwin Elam MD CULT,URINE Observed: 12/23/2024 6:10 PM Status: F Source: [facility] Specimen Description .URINE Culture NO GROWTH Report Status FINAL 12/24/2024 Performed By: #### URC #### [address] [place], [place] [id number] Electroplater: Jason Rodriguez MD [facility] [address] [place] [address] Electroplater: Sherwin Elam MD TYPE + SCRN Observed: 6:10 PM Status: F Source: [facility] ABO/Rh(D) B POSITIVE Antibody Screen NEGATIVE Performed By: #### PRTYS ### # [facility] [address] [place] [address] Electroplater: Sherwin Elam MD US OB TRANSVAGINAL Observed: 11/25/2024 2:05 PM Status: F Source: [facility] EPIC Order Comment: US OB TRANSVA GINAL No LMP recorded. TITLE OF EXAM: OB Ultrasound : REASON FOR EXAM: Dating COMPARISON: None TECHNIQUE: [...] signed and approved by the interpreting radiologist. HCG, QUANT Collected: 4 7:17 AM Status: F Source: [facility] TYPE CODE TESTS RESULT OUT OF RANGE REFERENCE UNITS LAB BHCG(LOINC) HCG, Quant 812.4 High <5 mIU/mL Result Comment: Non-preg premeno <=5 Postmeno <=8 Male <=3 If HCG results do not concur with clinical observations, additional testing to confirm results is recommended. Performed By: #### BHCG #### [facility] [address] [place] [address] Electroplater: Sherwin Elam MD HCG, QUANT Collected: 4 10:35 AM Status: F Source: [facility] TYPE CODE TESTS RESULT OUT OF RANGE REFERENCE UNITS LAB BHCG(LOINC) HCG, Quant 293.1 High <5 mIU/mL Result Comment: Non-preg premeno <=5 Postmeno <=8 Male <=3 If HCG results do not concur with clinical observations, additional testing to confirm results is recommended. Performed By: #### BHCG #### [facility] [address] [place] [address] Electroplater: Sherwin Elam MD ALLERGIES DATE TYPE / CODE NAME / CODE REACTION SEVERITY SOURCE Drug Class/[id number](SNO MED CT) NO KNOWN ALLERGIES [facility] ENCOUNTERS ADMIT/DISCHARGE ACCOUNT NUMBER ADMITTING ENCOUNTER CLASS LOCATION SOURCE 05/10/2025/05/10/20 [id number] Ambulatory Building:[facility] OB [facility] 05/03/2025/05/03/20 [id number] Ambulatory Building:[facility] OB [facility] 04/27/2025 [id number] Ambulatory [facility] ing:[facility] 04/25/2025/04/25/20 25 [id number] Ambulatory Buildin 4 [facility] 04/18/2025/04/18/20 25 [id number] Ambulatory Building:NOM S [facility] 04/14/2025/04/14/20 25 [id number] Ambulatory Buildin 01 [facility] 03/30/2025/03/30/20 25 [id number] Ambulatory Buildin 4 [facility] 03/30/2025/03/30/20 25 [id number] Ambulatory Building:N[facility] S [facility] 03/16/2025/03/16/20 25 [id number] Ambulatory Building:[facility] 03/03/2025/03/03/20 25 [id number] Ambulatory Building:[facility] S [facility] 02/24/2025/02/25/20 25 [id number] Ambulatory Buildin 4 [facility] 02/08/2025/02/09/20 25 [id number] Ambulatory Building:[facility] 02/08/2025/02/09/20 25 [id number] Ambulatory Building:[facility] 02/08/2025/02/09/20 25 [id number] Ambulatory Buildin 4 [facility] 01/26/2025/01/27/20 25 [id number] Ambulatory Buildin 4 [facility] 01/26/2025/01/27/20 25 [id number] Ambulatory Buildin 4 [facility] 01/20/2025/01/21/20 25 [id number] Ambulatory Building:[facility] 12/23/2024/12/23/19 25 [id number] Ambulatory Building:[facility] 12/23/2024/12/23/19 25 [id number] Ambulatory Building:[facility] 11/25/2024/11/25/19 25 [id number] Ambulatory Building:[facility] 11/25/2024/11/25/19 25 [id number] Ambulatory Building:[facility] 10/20/2024/10/20/20 24 [id number] Ambulatory Building:[facility] 10/18/2024/10/18/20 24 [id number] Ambulatory Building:[facility] PAYERS ENCOUNTER GUARANTOR PAYER SUBSCRIBER SOURCE 05/10/2025 FANNIE WARRENB: [place], [place] [address]Lpx: () Primary Insurance:BCBSPolic y Number: [id number] ctive Date:2024-11-03 BRANDEEJACQUELINE WARRENB: [id number] [place] [address] [facility] EPIC 05/03/2025 FANNIE WARRENB: [place], [place] [address]Rjr: () Primary Insurance:BCBSPolic y Number: [id number] ctive Date:2024-11-03 BRANDEEJACQUELINE WARRENB: [id number] [place] [address] [facility] EP[facility] 04/25/2025 JOSE DANIELGAIL WARRENB: [place], [place] [address]Rca: () Primary Insurance:BCBS OUT OF STATE PPO/TRUSTPolicy Number: [id number] ctive Date:2020-11-03 BRANDEE KELVINB: [id number] [place] [address]Kct: (HP) () [facility] 04/18/2025 FANNIE WARRENB: [place], [place] [address]Hqt: () Primary Insurance:BCBSPolic y Number: [id number] ctive Date:2024-11-03 BRANDEE KELVINB: [id number] [place] [address] [facility] EPIC 04/14/2025 FANNIE GRECO KELVINB: [place], [place] [address]Pkx: () Primary Insurance:BCBS OUT OF STATE PPO/TRUSTPolicy Number: [id number] ctive Date:2020-11-03 BRANDEE KELVINB: [id number] [place], [place] [address]Vnw: () () [facility] 03/30/2025 FANNIE ANGUS WARRENB: [place], [place] [address]Uor: () Primary Insurance:BCBS OUT OF STATE PPO/TRUSTPolicy Number: [id number] ctive Date:2020-11-03 BRANDEE MONROYSHAQUILLEB: [id number] [place], [place] [address]Vjv: (HP) () [facility] 03/30/2025 DARLEENSHANNON WARRENB: [place], [place] [address]Enr: (HP) Primary Insurance:BCBSPolic y Number: [id number] ctive Date:2024-11-03 BRANDEE KELVINB: [id number] [place] [address] [facility] 03/16/2025 FANNIE GRECO KELVINB: [place], [place] [address]Wbl: () Primary Insurance:BCBS OUT OF STATE PPO/TRUSTPoly Number: [id number] ctive Date:2020-11-03 BRANDEE STEPHAN: [id number] [place], [place] [address]Nop: (HP) (WP) [facility] 03/03/2025 FANNIE WARRENB: [place], [place] [address]Ipl: (HP) Primary Insurance:BCBSPolic y Number: [id number] ctive Date:2024-11-03 BRANDEE WARRENB: [id number] [place] [address] [facility] 02/24/2025 FANNIE WARRENB: [place], [place] [address]Pzu: () Primary Insurance:BCBS OUT OF STATE PPO/TRUSTPoly Number: [id number] ctive Date:2020-11-03 BRANDEE WARRENB: [id number] [place], [place] [address]Hmf: (HP) (WP) [facility] 02/08/2025 FANNIE ROTHMAN: [place], [place] [address]Ruu: (HP) Primary Insurance:[place] BCBSPolicy Number: [id number] ctive Date:2020-11-03 BRANDEE ROTHMAN: [id number] [place], [place] [address]Lwe: (HP) (WP) [facility] 02/08/2025 FANNIE WARRENB: [place], [place] [address]Ydi: (HP) Primary Insurance:BCBS OUT OF STATE PPO/TRUSTPolicy Number: [id number] ctive Date:2020-11-03 BRANDEE WHITEB: [id number] [place], [place] [address]Jgo: (HP) (WP) [facility] 02/08/2025 [facility] [place], [place] [address]Fsd: (HP) Primary Insurance:BCBS OUT OF STATE PPO/TRUSTPolicy Number: [id number] ctive Date:2020-11-03 BRANDEE MONROYSHAQUILLEB: [id number] [place], [place] [address]Fap: (HP) (WP) [facility] 01/26/2025 [facility] [place] [address]Vxo: (HP) Primary Insurance:BCBS OUT OF STATE PPO/TRUSTPolicy Number: [id number] ctive Date:2020-11-03 BRANDEE MONROYSHAQUILLEB: [id number] [place], [place] [address]Dzo: (HP) (WP) [facility] 01/26/2025 FANNIE MONROYSHAQUILLEB: [place], [place] [address]Tjz: (HP) Primary Insurance:BCBS OUT OF STATE PPO/TRUSTPolicy Number: [id number] ctive Date:2020-11-03 BRANDEE MONROYSHAQUILLEB: [id number] [place], [place] [address]Gfi: (HP) () [facility] 01/20/2025 FANNIE WHITEDOB: [place], [place] [address]Gap: (HP) Primary Insurance:BCBSPol y Number: [id number] ctive Date:2024-11-03 BRANDEE WHITEDOB: [id number] [place] [address] [facility] 12/23/2024 SPRING LAKEGAIL WHITEDOB: [place], [place] [address]Abt: (HP) [place] BCBSPolicy Number: [id number] ctive Date:2020-11-03 BRANDEE Wicho WHITEDOB: [id number] [place], [place] [address]Sgp: (HP) () [facility] 12/23/2024 FANNIE WHITEDOB: [place], [place] [address]Mea: (HP) Primary Insurance:BCBSPolic y Number: [id number] ctive Date:2024-11-03 BRANDEE WHITEDOB: [id number] [place] [address] [facility] 11/25/2024 FANNIE WHITEDOB: [place], [place] [address]Yas: (HP) Primary Insurance:BCBSPolic y Number: [id number] ctive Date:2024-11-03 BRANDEE WARRENB: [id number] [place] [address] [facility] EPIC 11/25/2024 FANNIE WARRENB: [place], [place] [address]Acg: (HP) Primary Insurance:[facility] y Number: [id number] ctive Date:2024-11-03 BRANDEE KELVINB: [id number] [place] [address] [facility] 10/20/2024 DARLEENSHANNON Carlos KELVINB: [place], [place] [address]Vwt: (HP) [place] Insurance:[place] BCBSPolicy Number: [id number] ctive Date:2020-11-03 BRANDEE Wicho WARRENB: [id number] [place], [place] [address]Mck: (HP) () [facility] 10/18/2024 FANNIE WARRENB: [place], [place] [address]Omb: (HP) [place] BCBSPolicy Number: [id number] ctive Date:2020-11-03 [facility] [place]
--- NOTE | 2025-05-10 17:11 | US_ITS ---
[place] [id number] Patient Name: FANNIE WHITE MRN: [id number]:[id number] date: 1995 Sex: F Assigned Patient Location: [facility] Current Patient Location: Accession/Order Number: [id number] Exam Date: 05/10/2025 18:22 Report Date: 05/10/2025 18:23 At the request of: GEORGE HALE Procedure: US OB BPP w non-stress Biophysical profile INDICATION: Gestational diabetes COMPARISON: 05/03/2025 FINDINGS: Biophysical profile score 8 out of 8. heart rate 134 beats per minutes. Fetus is cephalic position. IZTA index 12.2 cm. US/US OB BPP w non-stress IMPRESSION: Unremarkable biophysical profile 8 out of 8. Impression dictated by: Larry Epperson M.D. 05/10/2025 6:23 PM Dictation Location: [place] [address] Electronically authenticated by: [id number] Y Date: 05/10/2025 18:23
[2025-05-10 17:36] VITALS: BP 134/70; PULSE 72
== END 2025-05-10 18:02 | disposition home or self-care (01) ==
LOC: US 17:01 → FBC 17:07
PROVIDERS: PCP Obstetrics & Gynecology; Visit Provider Nurse Practitioner Family
DX: O24.419 Gestational diabetes mellitus in pregnancy, unspecified control (principal)
CPT/HCPCS: 76818

== ENCOUNTER 2025-05-13 17:00 | Outpatient (OUT) | payer BC, SELFPAY ==
[2025-05-13 17:06] VITALS: BP 124/71; PULSE 85
== END 2025-05-13 17:40 | disposition home or self-care (01) ==
LOC: FBCO 17:01 → FBC 17:02
PROVIDERS: PCP Obstetrics & Gynecology; Visit Provider Obstetrics & Gynecology
DX: O99.283 Endocrine, nutritional and metabolic diseases complicating pregnancy, third trimester (principal); Z3A.34 34 weeks gestation of pregnancy
CPT/HCPCS: 59025

== ENCOUNTER 2025-05-16 17:03 | Outpatient (OUT) | payer BC, SELFPAY ==
--- OUTSIDE RECORDS SUMMARY | 2025-01-21 11:10 | XMS_ITS | Continuity of Care Document ---
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 [address] [place] [address], [id number] , [place]. tel: [phone] [facility], [address] [place] [address], [id number] , [place] tel: [phone] [facility] Encounter for screening for respiratory tuberculosis 5 Visci DO Miguel. [address] [place] [address], [id number] , [place]. tel:+ [phone] [facility], [address] [place] [address], [id number] , [place] tel: [phone] [facility] No Information 4 Visci DO Miguel. [address] [place] [address], [id number] , [place]. tel: [phone] [facility], [address] [place] [address], [id number] , [place] tel:+ [phone] [facility] Lab Draw (chief complaint) Other specified disorders of pancreatic internal secretionSubclinical iodine-deficiency hypothyroidismEncount er for screening for other viral diseasesEncounter for screening for other infectious disease 4 Cynthia White. [address] [place], [place], 769453637 , [place]. tel: [phone] [facility], [address], [place], 451640354 , [place] tel: [phone] [facility] lab draw (chief complaint) Encounter for screening for other viral diseases 4 Cynthia White. [address], [place], 954025776 , [place]. tel: [phone] [facility], [address], [place], 756016045 , [place] tel: [phone] [facility] No Information 4 Cynthia White. [address], [place], 045859739 , [place]. tel: [phone] [facility], [address], [place], 578729209 , [place] tel: [phone] [facility] Encounter for screening for respiratory tuberculosis 4 Cynthia White. [address], [place], 160211170 , [place]. tel: [phone] [facility], [address], [place], 592534713 , [place] tel: [phone] [facility] Lab draw (chief complaint) Blood test prior to procedure 4 Cynthia White. [address], [place], 639235638 , [place]. tel: [phone] Referring Provider: Tenisha Leon IA. [facility], [address], [place], [id number] , [place] tel: [phone] [facility] No Information 3 Cynthia White. [address], [place], 128105749 , [place]. tel: [phone] [facility], [address], [place], 438437029 , [place] tel: [phone] [facility] COVID Test (chief complaint) Encounter for screening for COVID-19 3 Cynthia White. [address], [place], 878092891 , [place]. tel: [phone] [facility], [address], [place], 207950719 , [place] tel: [phone] [facility] Lab Draw (chief complaint) Encounter for antibody response examination 3 Cynthia White. [address], [place], 528071814 , [place]. tel: [phone] [facility], [address] [place] [address], [id number] , [place] tel: [phone] [facility] lab (chief complaint) Other specified disorders of pancreatic internal secretion 3 Cynthia White. [address], [place], 632826932 , [place]. tel: [phone] [facility], [address] [place] [address], [id number] , [place] tel: [phone] [facility] Lab draw (chief complaint) Blood test prior to procedure 3 Cynthia White. [address], [place], 469333201 , [place]. tel: [phone] [facility], [address] [place] [address], [id number] , [place] tel: [phone] [facility] lab draw (chief complaint) Endocrine disorder 3 Cynthia White. [address], [place], 024689640 , [place]. tel: [phone] [facility], [address] [place] [address], [id number] , [place] tel: [phone] [facility] Encounter for screening for COVID-19 3 Visci DO Miguel. [address], [place], 475785868 , [place]. tel: [phone] [facility], [address], [place], 176449359 , [place] tel: [phone] [facility] Lab draw (chief complaint) Blood test prior to procedureEncounter for screening for COVID-19 3 Visci DO Miguel. [address], [place], 952133422 , [place]. tel: [phone] [facility], [address], [place], 117774793 , [place] tel: [phone] [facility] No Information 3 Visci DO Miguel. [address], [place], 856883427 , [place]. tel: [phone] [facility], [address], [place], 277551206 , [place] tel: [phone] [facility] No Information 3 Visci DO Miguel. [address], [place], 242855037 , [place]. tel: [phone] [facility], [address], [place], 056366411 , [place] tel: [phone] [facility] No Information 2 Visci DO Miguel. [address], [place], 859315264 , [place]. tel: [phone] [facility], [address], [place], 153080039 , [place] tel: [phone] [facility] No Information 2 Visci DO Miguel. [address], [place], 712074545 , [place]. tel: [phone] [facility], [address], [place], 246735694 , [place] tel: [phone] [facility] No Information 2 Visci DO Miguel. [address], [place], 101987280 , [place]. tel: [phone] [facility], [address], [place], 086967490 , [place] tel: [phone] [facility] Encounter for screening for respiratory tuberculosis 2 Visci DO Miguel. [address], [place], 210333427 , [place]. tel: [phone] [facility], [address], [place], 031869118 , [place] tel: [phone] [facility] Encounter for screening for respiratory tuberculosis 2 Visci DO Miguel. [address], 589741689 , [place]. tel: [phone] [facility], [address], [place], 527504256 , [place] tel: [phone] [facility] Encounter for screening for respiratory tuberculosis 2 Visci DO Miguel. [address], [place], 957954419 , [place]. tel: [phone] [facility], [address], [place], 285662119 , [place] tel: [phone] [facility] No Information 1 Visci DO Miguel. [address], [place], 635448460 , [place]. tel: [phone] [facility], [address], [place], 174320485 , [place] tel: [phone] [facility] No Information 1 Visci DO Miguel. [address], [place], 818656828 , [place]. tel: [phone] [facility], [address], [place], 837569419 , [place] tel: [phone] [facility] No Information 1 Visci DO Miguel. [address], [place], 284825744 , [place]. tel:[phone] Family History Family Member Type Diagnosis Age [...] type Covered alliance party ID Authoriza tion(s) Morse BL [id number] [employer] BL [id number] [employer] BL [id number] [employer] BL [id number] [employer] BL [id number] [employer] BL [id number] [employer] BL [id number] Social History Type Description Quantity Date Captured [...] 2031 due Goal Tdap due Goal Tdap Vaccine. [...] du e Goal Influenza vaccine. Due on Tn due Goal Unhealthy drug use screening . [...] on due Goal PRAPARE ASSESSMENT. Due on A due Goal Tdap Vaccine. Due on 2031 [...] on due Goal Influenza vaccine. Due on Tn due Goal PRAPARE ASSESSMENT. Due on M [...]
--- OUTSIDE RECORDS SUMMARY | 2025-05-03 08:50 | XMS_ITS | Encounter Summary ---
Author Organization [facility] Address [address] [facility] [place] [address] Care Team Providers Care Metalsmith Apprentice Name Role Phone Unavailable Primary Care Provider Unavailabl e Reason for Visit * Reason Comments Routine Visit Encounter Details Date Type Department Care Team (Latest Contact Info) Description 05/03/2025 8:50 AM EDT Routine [facility] [address] [place] [address] Christy Schwartz PA [address] [place], [place] [address] Gestational diabetes mellitus (GDM), antepartum, gestational diabetes method of control unspecified (HHS-HCC) (Primary Dx); Third trimester (HHS-HCC); 32 weeks gestation of (HHS-HCC); Conceived by in vitro fertilization; Factor 5 Leiden mutation, heterozygous (HHS-HCC); Insulin controlled gestational diabetes mellitus (GDM) during , antepartum (HHS-HCC); size inconsistent with dates ([facility]) Social History Tobacco Use Types Packs/Day Years [...] to check FSBS. Blood Glucose Monitoring Suppl ([employer] Glucometer) w/Device kit 1 kit, Does not [...] Medical History: Diagnosis Date SAB (spontaneous ) ([facility]) 10/2021 HISTORY PAST MEDICAL HISTORY SOCIAL HISTORY Past Medical History: Diagnosis Date SAB (spontaneous ) ([facility]) 10/2021 Social History Tobacco Use Smoking status: [...] Vitals: Estimated body mass index is 43.99 kg/m?? as calculated from the following: Height as of 04/18/25: 5' 2 . Weight as of this encounter: 240 lb 8 oz. BP: 130/86 No LMP recorded. Patient is . ASSESSMENT & PLAN ICD-10-CM 1. size inconsistent with dates ([facility]) O26.849 OB follow up transabdominal approach 2. Third trimester ([facility]) Z34.93 POCT urinalysis dipstick manually resulted 3. 32 weeks gestation of ([facility]) Z3A.32 4. Conceived by in vitro fertilization Z78.9 5. Factor 5 Leiden mutation, heterozygous ([facility]) D68.51 6. Insulin controlled gestational diabetes mellitus (GDM) during , antepartum ([facility]) O24.414 Return OB: Patient presents today for [...] AM EDT Routine [facility] [address] [place] [phone] Christy Schwartz, PA [address] [place] [address] [place] [address] 05/30/2025 8:30 AM EDT Routine [facility] [address] [place] [address] Cain Donaldson DO [address] [place], [place] [id number] 06/06/2025 8:40 AM EDT Routine [facility] [address] [place] [address] [place] [phone] Christy Schwartz, PA [address] [place] [address] [place] [address] 06/13/2025 8:30 AM EDT Routine [facility] OB [address] [place] [address] [place] [phone] Christy Schwartz, PA [address] [place] [address] [place], [place] [id number] Scheduled Orders Name Type Priority Associated Diagnoses Orde r Schedule US OB follow up transabdominal approach Imaging Routine Insulin controlled gestational diabetes mellitus (GDM) during , antepartum ([facility]) Gestational diabetes mellitus (GDM), antepartum, gestational diabetes method of control unspecified ([facility]) every 4 weeks for 4 Occurrences starting 05/09/2025 until 06/24/2025, 1 completed documented as of this encounter Goals Goal Patient Goal Type Associated Problems Recent Progress Patient-Stated? Author Reminders Care Plan OB Reminders No Open Scheduling, Background documented as of this encounter Procedures Procedure Name Priority Date/Time Associated Diagnosis Comments POCT URINALYSIS DIPSTICK Routine 05/03/2025 9:11 AM EDT Third trimester ([facility]) documented in this encounter Results * US [...] of control unspecified (HHS-HCC)- Primary Third trimester ([facility]) state, incidental 32 weeks gestation of ([facility]) Conceived by in vitro fertilization Factor 5 Leiden mutation, heterozygous ([facility]) Insulin controlled gestational diabetes mellitus (GDM) during , antepartum ([facility]) size inconsistent with dates ([facility]) Insulin controlled gestational diabetes mellitus (GDM) during , antepartum ([facility]) Gestational diabetes mellitus (GDM), antepartum, gestational diabetes method of control unspecified ([facility]) documented in this encounter Additional Health Concerns Active Problems Noted Date Diagnosed Date OB Reminders 11/26/2024 documented as of this encounter
--- OUTSIDE RECORDS SUMMARY | 2025-05-10 08:00 | XMS_ITS | Encounter Summary ---
Author Organization [facility] Address [address] [place] [address] Care Team Providers Care Glazier Supervisor Name Role Phone Unavailable Primary Care Provider Unavailabl e Encounter Details Date Type Department Care Team (Latest Contact Info) Description 05/10/2025 8:00 AM EDT Ancillary Procedure [facility] BCP OB [address] [place] [address] Insulin controlled gestational diabetes mellitus (GDM) during , antepartum ([facility]); Gestational diabetes mellitus (GDM), antepartum, gestational diabetes method of control unspecified ([facility]) Social History Tobacco Use Types Packs/Day Years [...] 8:50 AM EDT Routine [facility] BCP OB [facility] [place] [address] Christy Schwartz PA [address] [place] [address] 05/30/2025 8:30 AM EDT Routine [facility] BCP OB [address] [place] [address] Cain Donaldson DO [address] [place] [address] [place] [address] 06/06/2025 8:40 AM EDT Routine [facility] BCP OB [address] [place] [address] [place] [phone] Christy Schwartz PA [address] [place] [address] [place], [place] [id number] 06/13/2025 8:30 AM EDT Routine [facility] BCP OB [address] [place] [address] [place] [address] Christy Schwartz PA [address] [place] [address] [place], [place] [id number] documented as of this encounter Goals Goal Patient Goal Type Associated Problems Recent Progress Patient-Stated? Author Reminders Care Plan OB Reminders No Open Scheduling, Background documented as of this encounter Procedures Procedure Name Priority Date/Time Associated Diagnosis Comments US OB FOLLOW UP TRANSABDOMINAL APPROACH Routine 05/10/2025 8:32 AM EDT Insulin controlled gestational diabetes mellitus (GDM) during , antepartum ([facility]) Gestational diabetes mellitus (GDM), antepartum, gestational diabetes method of control unspecified ([facility]) documented in this encounter Results * US [...] BY: ELECTRONICALLY SIGNED BY: Mike Lucero MD us Christy MCKOY IMG OB US PROCEDURES Final Resul t documented in this encounter Visit Diagnoses Diagnosis Insulin controlled gestational diabetes mellitus (GDM) during , antepartum ([facility]) Gestational diabetes mellitus (GDM), antepartum, gestational diabetes method of control unspecified ([facility]) documented in this encounter Additional Health Concerns Active Problems Noted Date Diagnosed Date OB Reminders 11/26/2024 documented as of this encounter
--- OUTSIDE RECORDS SUMMARY | 2025-05-16 08:30 | XMS_ITS | Encounter Summary ---
Author Organization [facility] Address [address] [facility] [place] [address] Care Team Providers Care Video Camera Operator Name Role Phone Unavailable Primary Care Provider Unavailabl e Reason for Visit * Reason Comments Routine Visit Encounter Details Date Type Department Care Team (Latest Contact Info) Description 05/16/2025 8:30 AM EDT Routine [facility] [address] [facility] [place] [address] Cain Donaldson, DO [address] [facility] [address] [place], [facility] 34 weeks gestation of ([facility] Third trimester ([facility]); Conceived by in vitro fertilization; Factor 5 Leiden mutation, heterozygous ([facility]); Insulin controlled gestational diabetes mellitus (GDM) during , antepartum ([facility]); Non-recurrent acute serous otitis media of left [...] 10:34 AM EDT documented in this encounter Plan of Treatment Upcoming Encounters Date Type Department Care Team (Late st Contact Info) Description 05/26/2025 8:50 AM EDT Routine [facility] OB [address] [facility] [place] [phone] Christy Schwartz, PA [address] [place] [address] [place] [address] 05/30/2025 8:30 AM EDT Routine [facility] OB [address] [place] [address] [place] [address] Cain Donaldson DO [address] [facility] [place] [address] 06/06/2025 8:40 AM EDT Routine [facility] [address] [place] [address] [place] [phone] Christy Schwartz, PA [address] [facility] [place] [address] 06/13/2025 8:30 AM EDT Routine [facility] OB [address] [place] [address] [place] [phone] Christy Schwartz, PA [address] [facility] [place] [address] Scheduled Orders Name Type Priority Associated Diagnoses Orde r Schedule Urine culture Microbiology Routine 34 weeks gestation of ([facility]) Conceived by in vitro fertilization Ordered: 05/16/2025 documented as of this encounter Goals Goal Patient Goal Type Associated Problems Recent Progress Patient-Stated? Author Reminders Care Plan OB Reminders No Open Scheduling, Background documented as of this encounter Procedures Procedure Name Priority Date/Time Associated Diagnosis Comments POCT URINALYSIS DIPSTICK Routine 05/16/2025 8:43 AM EDT 34 weeks gestation of ([facility]) Third trimester ([facility]) documented in this encounter Results * (ABNORMAL) [...] weeks gestation of ([facility]) Third trimester ([facility]) state, incidental Conceived by in vitro fertilization Factor 5 Leiden mutation, heterozygous ([facility]) Insulin controlled gestational diabetes mellitus (GDM) during , antepartum ([facility]) Non-recurrent acute serous otitis media of left ear documented in this encounter Additional Health Concerns Active Problems Noted Date Diagnosed Date OB Reminders 11/26/2024 documented as of this encounter
--- OUTSIDE RECORDS SUMMARY | 2025-05-16 17:04 | XMS_ITS | Clinical Summary ---
Author Organization [employer] Address [id number] [address] [place] [address] Care Team Providers Care Motor Scooter Repairer Name Role Phone Unavailable Primary Care Provider [...] 1/2 syringe by miscellaneous route. Active PNV no.153/FA/om3/d jimenez/epa/fish ( GUMMIES ORAL) Take 2 tablets by mouth in the morning. Active cholecalciferol 1,000 units tablet Take 1 tablet (1,000 Units total) by mouth in the morning. Active aspirin 81 mg chewable tablet Chew 1 tablet (81 mg total) and swallow in the morning. Active insulin glargine (LANTUS SOLOSTAR U-100 INSULIN) 100 unit/mL (3 mL) insulin penIndications: Insulin controlled gestational diabetes mellitus (GDM) in second trimester,Predi abetes in mother during Inject 25 units subcutaneously in abdomen every evening 15 mL 3 04/11/20 25 Active Active Problems Problem Noted Date Diagnosed Date Insulin controlled gestation al diabetes mellitus (GDM) in third trimester 01/13/2025 Viral upper respiratory illness 09/25/2016 Bipolar 1 disorder 07/03/2016 Non morbid obesity 07/03/2016 Major depressive disorder 05/29/2016 Estimated Date of Delivery Comme nts Yes 06/25/2025 Based on Other B asis, 5 day Embryo, transfer date 10/07/24, due date should be 06/25/25 Encounters Date Type Department Care Team Description 05/11/2025 Telephone Maternal- Medicine at [facility] [address] [place] [address] Belen Fowler, ANNETTE 05/03/2025 Telephone Maternal- Medicine at [facility] [address] [place] [address] Shoshana Berger, ANNETTE 04/25/2025 11:30 AM EDT Telemedicine Maternal- Medicine at [facility] [address] [place] [address] Devika Pulido, JASON Insulin controlled gestational diabetes mellitus (GDM) in third trimester (Primary Dx) 04/25/2025 Travel 04/25/2025 Telephone Maternal- Medicine at [facility] [address] [place] [address] Giselle Cheng, ERI 04/20/2025 Telephone Maternal- Medicine at [facility] [address] [place] [address] Aissatou Stoner, NARESH 04/14/2025 Travel 04/12/2025 Telephone Maternal- Medicine at [facility] [address] [place] [address] Sonya Lomax, NARESH 04/11/2025 Orders Only Maternal- Medicine at [place] [address] [place] [address] Devika Pulido PA-C 04/11/2025 Remote Patient Monitoring Maternal- Medicine at [facility] [address] [place] [address] Devika Pulido PA-C Insulin controlled gestational diabetes mellitus (GDM) in second trimester; Prediabetes in mother during 03/30/2025 1:30 PM EDT Telemedicine Maternal- Medicine at [facility] [address] [place] [address] Sintia Martinez, HAND CANDLE MOLDER-CASUALTY UNDERWRITER Insulin controlled gestational diabetes mellitus (GDM) in second trimester (Primary Dx); Recurrent major depressive disorder, in partial remission; Prediabetes in mother during 03/30/2025 Travel 03/22/2025 Telephone Maternal- Medicine at [facility] [address] [place] [address] Sonya Lomax RN 03/16/2025 7:48 AM EDT - 03/16/2025 11:59 PM EDT Hospital Encounter [facility] [address] [place] [address] Insulin controlled gestational diabetes mellitus (GDM) in second trimester; Choroid plexus cyst of fetus affecting care of mother, antepartum, single or unspecified fetus; Heterozygous factor V Leiden affecting in second trimester, antepartum; Severe obesity due to excess calories affecting , antepartum ([facility]) Discharge Disposition: Home 03/16/2025 Telephone Maternal- Medicine at [facility] [address] [place] [address] Sonya Lomax, NARESH 03/15/2025 Travel 03/11/2025 Telephone Maternal- Medicine at [facility] [address] [place] [address] Naomy Thompson RN 03/07/2025 Telephone Maternal- Medicine at [facility] [address] [place] [address] Sonya Lomax, NARESH 03/07/2025 Orders Only Maternal- Medicine at [facility] [address] [place] [address] Cole Wade MD Insulin controlled gestational diabetes mellitus (GDM) in second trimester; Prediabetes in mother during 03/01/2025 Telephone Maternal- Medicine at [facility] [address] [place] [address] Valerie Le, NARESH 02/28/2025 Orders Only Maternal- Medicine at [facility] [address] [place] [address] Devika Pulido PA-C Insulin controlled gestational diabetes mellitus (GDM) in second trimester; Prediabetes in mother during 02/24/2025 1:00 PM EDT Telemedicine Maternal- Medicine at [facility] [address] [place] [address] Sintia Martinez, UMM-RHONDA Insulin controlled gestational diabetes mellitus (GDM) in second trimester (Primary Dx); Recurrent major depressive disorder, in partial remission; Bipolar 1 disorder ([facility]); Prediabetes in mother during 02/24/2025 Travel 02/23/2025 Travel 02/17/2025 Orders Only Maternal- Medicine at [facility] [address] [place] [address] Christy Prado LPN Insulin controlled gestational diabetes [...] episode depressed 02/17/2025 Telephone Maternal- Medicine at [facility] [address] [place] [address] Christy Prado LPN 02/15/2025 Telephone Maternal- Medicine at [facility] [address] [place] [address] Valerie Le, NARESH from Last 3 Months Family History Medical [...] Former Cigarettes 2 2010 Smokeless Tobacco: Never Tobacco Cessation:Counseling Given: [...] Care Team (Late st Contact Info) Description 05/23/2025 1:30 PM EDT Telemedicine Maternal- Medicine at [facility] [address] [place] [address] Devika Pulido, PAMoniqueC [address] [address] Health Maintenance Due Date Last Done Comments [...] Procedure Name Priority Date/Time Associated Diagnosis Comments [facility] OB FOLLOW-UP, 1 FETUS Routine 04/14/2025 9:05 AM EDT Encounter for other screening follow-up [facility] OB FOLLOW-UP, 1 FETUS Routine 03/16/2025 9:20 AM EDT Insulin controlled gestational diabetes mellitus (GDM) in second trimester Choroid plexus cyst of fetus affecting care of mother, antepartum, single or unspecified fetus Heterozygous factor V Leiden affecting in second trimester, antepartum Severe obesity due to excess calories affecting , antepartum ([facility]) PAP SMEAR Routine 11/24/2020 6:26 AM EST Encounter for gynecological examination without abnormal finding from Last 3 Months or Most Recently Relevant to Health Maintenance Results * US M[facility] OB FOLLOW-UP, 1 FETUS (04/14/2025 9:05 AM EDT) Only the most recent of2 resultswithin the time period is included. Anatomical Region Laterality Modality OB-BAND BOOKER Ultrasound 04/14/2025 8:07 AM EDT Narrative 04/14/2025 1:39 PM EDT NAME: CINDY GRECO : 1995 SEX: F Accession Number: [id number] ORDERING PHYSICIAN: JAIDA CHADWICK REFERRING PHYSICIAN: ALFREDO PROCTOR Coding ----- --------- Procedures 00495: Follow-up Ultrasound, per fetus Indication ----- --------- Screening for follow-up survey, Screening for congenital cardiac abnormality, resulting from assisted reproductive technology, Gestational diabetes, Obesity in , Depression, Supervision of high risk (LT Choroid plexus cyst)-resolved History ----- --------- OB History 2. Para 0 [id number] Maternal Assessment ----- --------- Physical Exam Height [...] EFW (oz) 6 oz EFW by: Hadlock (ORX-NH-IL-FL) Extended Tibia 47.6 mm 28w 6d 23% Padmini Animal Shelter Clerk 3.1 mm CM 10.2 mm 99% Nicolaides [...] Thorax RVOT view. LVOT view. 3-vessel view. 8-nojzmb-rwlpkhl view. Right lung. Left lung. Abdomen Right [...] view documented previously 3-vessel view documented previously 3-otjsga-hsqbkjn view documented previously Aortic arch view documented [...] 6.5 cm. Recommendations ----- --------- Please see [facility] recommendations from prior clinical and/or ultrasound report documentation. The patient is scheduled in four weeks to complete anatomic survey and echocardiogram. Continue testing as previously recommended. Subsequent follow up or other follow up as clinically determined by primary OB provider unless otherwise specified by [facility]. Results forwarded to ordering provider so they can follow up with the patient as necessary. Procedure Note Jaida Chadwick MD - 04/14/2025 NAME: CINDY GRECO : 1995 SEX: F Accession Number: [id number] ORDERING PHYSICIAN: JAIDA CHADWICK REFERRING PHYSICIAN: ALFREDO PROCTOR Coding ----- --------- Procedures 32298: Follow-up Ultrasound, per fetus Indication ----- --------- Screening for follow-up survey, Screening for congenital cardiacabnormality, resulting from assisted reproductive technology, Gestational diabetes, Obesity in , Depression,Supervision of high risk (LT Choroid plexus cyst)-resolved History ----- --------- OB History 2. Para 0 [id number] Maternal Assessment ----- --------- Physical Exam Height [...] EFW (oz) 6 oz EFW by: Hadlock (UOK-OW-EU-FL) Extended Tibia 47.6 mm 28w 6d 23% Padmini Animal Shelter Clerk 3.1 mm CM 10.2 mm 99% Nicolaides [...] Thorax RVOT view. LVOT view. 3-vessel view. 2-yzkdvr-agsqewrlxpb. Right lung. Left lung. Abdomen Right renal [...] view documented previously 3-vessel view documented previously 6-fkhlzm-tvfakdp view documented previously Aortic arch view documented [...] 6.5 cm. Recommendations ----- --------- Please see [facility] recommendations from prior clinical and/or ultrasoundreport documentation. The patient is scheduled in four weeks to complete anatomic survey andfetal echocardiogram. Continue testing as previously recommended. Subsequent follow up or other follow up as clinically determined byprimary OB provider unless otherwise specified by [facility]. Results forwarded to ordering provider so they can follow up with thepatient as necessary. us Jaida Chadwick MD [facility] ORDERABLES Final Result * Pap Smear (11/24/2020 6:26 AM EST) 11/24/2020 6:26 AM EST 11/24/2020 6:35 AM EST Narrative COPATH - 11/28/2020 11:50 AM EST [facility] [address] [place] [address] Gynecologic Cytology Consultation Patient Name: KEVIN MOORE : 1995 (Age: 25) Gender: F Taken: 11/24/2020 Reported: 11/28/2020 Physician(s): Al Orr M.D. ( ) Copy To: [facility] Rec. #: [id number] Acct: # [id number] Final Cytologic Interpretation ThinPrep Pap Test (Cervical): Satisfactory for evaluation. A transformation zone component was not noted. NEGATIVE FOR INTRAEPITHELIAL LESION OR MALIGNANCY. [facility]/11/28/2020 Interpretation performed at [facility], [address] [place] [address], License number: [id number]. Electronically Signed Out By PAUL Lopez(ASCP) Date of Last Menstrual Period: 09/12/2020 Other Clinical Conditions: Z01.419 Forestry Adviser exam wo/abn findings Source of Specimen ThinPrep Pap Test (Cervical) Thin Prep Pap (BAND BOOKER) Fee Code(s): G0145 The Pap test is a screening test with an inherent, but low, probability of error. The Pap test is primarily effective for the diagnosis and prevention of squamous cell carcinoma. Regular screening is critical for prevention. ThinPrep liquid-based slides, which meet the Production Gear Cutter criteria for automated screening, have been screened by the ThinPrep Imaging System (as of 07/20/07) along with an additional manual rescreening by a rechecker and, if indicated, by a pathologist. Al Orr MD PATHOLOGY/CYTOLOGY ORDERABLE S Final Result COPATH from Last 3 Months or Most Recently Relevant to Health Maintenance Insurance ANTHEM ANTHEM
--- OUTSIDE RECORDS SUMMARY | 2025-05-16 17:05 | XMS_ITS | Encounter Summary ---
Author Organization [facility] Address [address] [place] [address] Care Team Providers Care Boarding Kennel Or Cattery Operator Name Role Phone Unavailable Primary Care Provider Unavailabl e Encounter Details Date Type Department Care Team (Late st Contact Info) Description 11/12/2024 Abstract [facility] [address] [facility] [place] [phone] Cain Donaldson, [address] [place], [place] [address] Social History Tobacco Use Types Packs/Day Years [...] [facility] [place] [address] Christy Schwartz PA [address] [place], [place] [address]fam[address] [place], [place] [address] 05/30/2025 8:30 AM EDT Routine [facility] OB [address] [place] [address] [place] [address] Cain Donaldson, [address] [place], [facility] 06/06/2025 8:40 AM EDT Routine [facility] OB [address] [place] [address] [place] [address] Christy Schwartz PA [address] [place] [address] [place] [address] 06/13/2025 8:30 AM EDT Routine [facility] OB [address] [place] [address] [place] [phone] Christy Schwartz PA [address] [place] [address] [place] [address] documented as of this encounter Visit Diagnoses Not on filedocumented in this encounter
--- OUTSIDE RECORDS SUMMARY | 2025-05-16 17:05 | XMS_ITS | Encounter Summary ---
Author Organization [facility] Address [address] [place] [address] Care Team Providers Care Building Energy Consultant Name Role Phone Unavailable Primary Care Provider Unavailabl e Encounter Details Date Type Department Care Team (Late Contact Info) Description 12/24/2024 Abstract [facility] OB [address] [place] [address] Cain Donaldson DO [address] [place] [address] Dr [place]sey [place], [facility] Social History Tobacco Use Types Packs/Day [...] Department Care Team (Late Contact Info) Description 05/26/2025 8:50 AM EDT Routine [facility] OB [address] [place] [address] Christy Schwartz PA [address] [place] [place] [address] [place], [place] [id number] 05/30/2025 8:30 AM EDT Routine [facility] [address] [place] [address] Cain Donaldson DO [address] [facility] [place] [address] 06/06/2025 8:40 AM EDT Routine [facility] OB [address] [place] [address] [place] [phone] Christy Schwartz PA [address] [facility] [address] [place], [place] [id number] 06/13/2025 8:30 AM EDT Routine [facility] OB [address] [place] [address] [place] [address] Christy Schwartz PA [address] [facility] [address] [place], [place] [id number] documented as of this encounter Goals Goal Patient Goal Type Associated Problems Recent Progress Patient-Stated? Author Reminders Care Plan OB Reminders No Open Scheduling, Background documented as of this encounter Visit Diagnoses Not on filedocumented in this encounter Additional Health Concerns Active Problems Noted Date Diagnosed Date OB Reminders 11/26/2024 documented as of this encounter
--- OUTSIDE RECORDS SUMMARY | 2025-05-16 17:05 | XMS_ITS | Encounter Summary ---
Author Organization [facility] Address [address] [place] [address] Care Team Providers Care Director Vaccine Name Role Phone Unavailable Primary Care Provider Unavailabl e Encounter Details Date Type Department Care Team (Late Contact Info) Description 11/26/2024 Abstract [facility] B[facility] OB [address] [place] [address] Cain Donaldson DO [address] [place] [address] Dr Kelsey Prieto, [facility]11 Social History Tobacco Use Types Packs/Day [...] AM EDT Routine [facility] BCP OB [address] [place] [address] Christy Schwartz PA [address] [place] [address] [address] [place], [place] [id number] 05/30/2025 8:30 AM EDT Routine [facility] OB 102 [facility] [place] [address] Cain Donaldson DO [address] [facility] [place] [address] 06/06/2025 8:40 AM EDT Routine [facility] BCP OB [address] [place] [address] [place] [address] Christy Schwartz PA [address] [facility] [address] [place], [place] [address] 06/13/2025 8:30 AM EDT Routine [facility] BCP OB [address] [place] [address] [place] [address] Christy Schwartz PA [address] [facility] [address] [place], [place] [address] documented as of this encounter Goals Goal Patient Goal Type Associated Problems Recent Progress Patient-Stated? Author Reminders Care Plan OB Reminders No Open Scheduling, Background documented as of this encounter Visit Diagnoses Not on filedocumented in this encounter Additional Health Concerns Active Problems Noted Date Diagnosed Date OB Reminders 11/26/2024 documented as of this encounter
--- OUTSIDE RECORDS SUMMARY | 2025-05-16 17:05 | XMS_ITS | Encounter Summary ---
Author Organization [facility] Address [address] [place] [address] Care Team Providers Care Human Services Manager Name Role Phone Unavailable Primary Care Provider Unavailabl e Encounter Details Date Type Department Care Team (Late Contact Info) Description 12/27/2024 Abstract [facility] BCP OB 102 [facility] [address] Cain Donaldson DO [address] [place] [address] Dr Kelsey Prieto, [facility]11 Social History Tobacco Use Types Packs/Day [...] EDT Routine [facility] BCP OB 102 [place] [address] Christy Schwartz PA [address] [place] [address] Dr [place], [place] [id number] 05/30/2025 8:30 AM EDT Routine [facility] OB 102 [facility] [place] [address] Cain Donaldson DO 102 [facility] [place] [address] 06/06/2025 8:40 AM EDT Routine [facility] BCP OB [address] [place] [address] [place] [address] Christy Schwartz PA 102 [facility] [address] [place], [place] 8008[address] 06/13/2025 8:30 AM EDT Routine [facility] BCP OB [address] [place] [address] [place] [address] Christy Schwartz PA [address] [facility] [address] [place], [place] [id number] documented as of this encounter Goals Goal Patient Goal Type Associated Problems Recent Progress Patient-Stated? Author Reminders Care Plan OB Reminders No Open Scheduling, Background documented as of this encounter Visit Diagnoses Not on filedocumented in this encounter Additional Health Concerns Active Problems Noted Date Diagnosed Date OB Reminders 11/26/2024 documented as of this encounter
--- OUTSIDE RECORDS SUMMARY | 2025-05-16 17:05 | XMS_ITS | Encounter Summary ---
Author Organization [facility] Address [address] [place] [address] Care Team Providers Care Instructional Technology Director Name Role Phone Unavailable Primary Care Provider Unavailabl e Encounter Details Date Type Department Care Team (Late Contact Info) Description 05/10/2025 Clinisync Result Encounter NOMS External Department Unsolicited George Scherer, LEEANN [address] [facility] [place] [address] Social History Tobacco Use Types Packs/Day [...] AM EDT Routine [facility]CP OB 102 [facility] [place] [address] Christy Schwartz PA [address] [place], [facility]11 05/30/2025 8:30 AM EDT Routine [facility] BCP OB 102 [facility] [place] [address] Cain Donaldson DO [address] [place] [address] 06/06/2025 8:40 AM EDT Routine [facility] BCP OB [address] [place] [address] [place] [address] Christy Schwartz PA [address] [place] [address] [place] [address] 06/13/2025 8:30 AM EDT Routine [facility] BCP OB [address] [place] [address] [place] [address] Christy Schwartz PA [address] [facility] [address] [place], [place] 85[address] documented as of this encounter Goals Goal Patient Goal Type Associated Problems Recent Progress Patient-Stated? Author Reminders Care Plan OB Reminders No Open Scheduling, Background documented as of this encounter Procedures Procedure Name Priority Date/Time Associated Diagnosis Comments US OB BPP W NON-STRESS 05/10/2025 6:23 PM EDT documented in this encounter Results * US OB BPP W NON-STRESS (05/10/2025 6:23 PM EDT) Anatomical Region Laterality Modality Other 05/10/2025 6:23 PM EDT Narrative 05/10/2025 6:26 PM EDT The [place] [id number] Ultrasound Report Signed Patient: KEVIN WHITE MR#: [id number] : 1995 Acct:[id number] Age/Sex: 29 / F ADM Date: 05/10/25 Loc: US Attending Dr: George Scherer Ordering Physician: George Scherer Date of Service: 05/10/25 Procedure(s): US OB BPP w non-stress Accession Number(s): [id number] cc: George Scherer; Cain Donaldson D.O. The [address] [id number] Patient Name: KEVIN WHITE MRN: [id number] date: 1995 Sex: F Assigned Patient Location: [facility] Current Patient Location: Accession/Order Number: [id number] Exam Date: 05/10/2025 18:22 Report Date: 05/10/2025 18:23 At the request of: GEORGE SCHERER Procedure: US OB BPP w non-stress Biophysical profile INDICATION: Gestational diabetes COMPARISON: 05/03/2025 FINDINGS: Biophysical profile score 8 out of 8. heart rate 134 beats per minutes. Fetus is cephalic position. ZITA index 12.2 cm. US/US OB BPP w non-stress IMPRESSION: Unremarkable biophysical profile 8 out of 8. Impression dictated by: Larry Epperson M.D. 05/10/2025 6:23 PM Dictation Location: [place] [address] Electronically authenticated by: [id number] Y Date: 05/10/2025 18:23 Dictated By: Larry Epperson M.D. Signed By: 05/10/251825 DD/ 22 TD/TT: Coating And Embossing Unit Operator: Procedure Note Radiology, Radiologist, MD - 05/10/2025 [place] [address] Ultrasound Report Signed Patient: KEVIN WHITEMR#: [id number] : 1995Acct:[id number] Age/Sex: 29 / FADM Date: 05/10/25 Loc: US Attending Dr: George Scherer Ordering Physician: George Scherer Date of Service: 05/10/25 Procedure(s): US OB BPP w non-stress Accession Number(s): [id number] cc: George Scherer; Cain Donaldson D.O. The [address] [address] Patient Name: KEVIN WHTIE MRN: [id number] date: 1995 Sex: F Assigned Patient Location: [facility] Current Patient Location: Accession/Order Number: [id number] Exam Date: 05/10/2025 18:22 Report Date: 05/10/2025 18:23 At the request of: GEORGE SCHERER Procedure: US OB BPP w non-stress Biophysical profile INDICATION: Gestational diabetes COMPARISON: 05/03/2025 FINDINGS: Biophysical profile score 8 out of 8. heart rate 134beats per minutes. Fetus is cephalic position. ZITA index 12.2 cm. US/US OB BPP w non-stress IMPRESSION: Unremarkable biophysical profile 8 out of 8. Impression dictated by: Larry Epperson M.D. 05/10/2025 6:23 PM Dictation Location: [place] [address] Electronically authenticated by: [id number] Y Date: 8:23 Dictated By: Larry Epperson M.D. Signed By:05/10/25 1826 DD/ 22 TD/TT: Coating And Embossing Unit Operator: George Scherer NP [facility] Final Resul t documented in this encounter Visit Diagnoses Not on filedocumented in this encounter Additional Health Concerns Active Problems Noted Date Diagnosed Date OB Reminders 11/26/2024 documented as of this encounter
--- OUTSIDE RECORDS SUMMARY | 2025-05-16 17:05 | XMS_ITS | Encounter Summary ---
Author Organization [facility] Address [address] [place] [address] Care Team Providers Care Boat Finisher Name Role Phone Unavailable Primary Care Provider Unavailabl e Encounter Details Date Type Department Care Team (Late st Contact Info) Description 05/16/2025 Bamboo flowsheet [facility] BCP OB [address] [place] [address] [place] [address] Cain Donaldson, [address] [place] [address] Dr Kelsey Prieto, [facility]11 Social History Tobacco Use Types Packs/Day [...] 8:50 AM EDT Routine [facility] BCP OB [address] [place], [place] [address] [address] Christy Schwartz PA [address] [place] [address] [place], [place] [id number] 05/30/2025 8:30 AM EDT Routine [facility] BCP OB [address] [place], [place] [address] [address] Cain Donaldson DO 102 [facility] [address] [place], [place] 06198[address] 06/06/2025 8:40 AM EDT Routine [facility] BCP OB [address] [place] [address] [place] [address] Christy Schwartz PA [address] [facility] [address] [place], [place] 51439[address] 06/13/2025 8:30 AM EDT Routine [facility] BCP OB [address] [place] [address] [place] [address] Christy Schwartz PA [address] [facility] [address] [place], [place] 740[address] documented as of this encounter Goals Goal Patient Goal Type Associated Problems Recent Progress Patient-Stated? Author Reminders Care Plan OB Reminders No Open Scheduling, Background documented as of this encounter Visit Diagnoses Not on filedocumented in this encounter Additional Health Concerns Active Problems Noted Date Diagnosed Date OB Reminders 11/26/2024 documented as of this encounter
--- OUTSIDE RECORDS SUMMARY | 2025-05-16 17:05 | XMS_ITS | Encounter Summary ---
Author Organization [facility] Address [address] [place] [address] Care Team Providers Care Dough Mixer Helper Name Role Phone Unavailable Primary Care Provider Unavailabl e Encounter Details Date Type Department Care Team (Late Contact Info) Description 05/03/2025 Bamboo flowsheet [facility] BCP OB [address] [facility] [address] Christy Schwartz PA [address] [place] [address] [place], [place] [id number] Social History Tobacco Use Types Packs/Day Years [...] 8:50 AM EDT Routine [facility] BCP OB [address] [place] [address] [place] [address] Christy Schwartz PA [address] [place] [address] [place], [place] 3197611 05/30/2025 8:30 AM EDT Routine [facility] BCP OB [address] [place] [address] [place] [address] Cain Donaldson DO [address] [facility] [place] [address] 06/06/2025 8:40 AM EDT Routine [facility] BCP OB [address] [place] [address] [place] [address] Christy Schwartz PA [address] [facility] [address] [place], [place] 7463511 06/13/2025 8:30 AM EDT Routine [facility] BCP OB [address] [place] [address] [place] [address] Christy Schwartz, PA [address] [place] [address] Dr [place], [place] 1607711 documented as of this encounter Goals Goal Patient Goal Type Associated Problems Recent Progress Patient-Stated? Author Reminders Care Plan OB Reminders No Open Scheduling, Background documented as of this encounter Visit Diagnoses Not on filedocumented in this encounter Additional Health Concerns Active Problems Noted Date Diagnosed Date OB Reminders 11/26/2024 documented as of this encounter
--- OUTSIDE RECORDS SUMMARY | 2025-05-16 17:05 | XMS_ITS | Encounter Summary ---
Author Organization [facility] tem Address [id number] [address] 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); Bipolar disorder, in full remission, most recent [...] 1:30 PM EDT Telemedicine Maternal- Medicine at [facility] [address] [facility] [place] [phone] Devika Pulido PA-C [address] [address] documented as of this encounter Procedures Procedure [...] due to excess calories affecting , antepartum ([facility]) Bipolar disorder, in full remission, most recent [...]
--- OUTSIDE RECORDS SUMMARY | 2025-05-16 17:05 | XMS_ITS | Encounter Summary ---
Author Organization [facility] Address [address] [place] [address] Care Team Providers Care Reservations Agent Name Role Phone Unavailable Primary Care Provider Unavailabl e Encounter Details Date Type Department Care Team (Late st Contact Info) Description 03/18/2025 Abstract [facility] OB 102 [facility] [place] [address] Yue Dumont MA Social History Tobacco Use [...] AM EDT Routine [facility] BCP OB [address] [place] [address] Christy Schwartz PA [address] [facility] [address] [place], [facility]11 05/30/2025 8:30 AM EDT Routine [facility] OB [address] [facility] [place] [address] Cain Donaldson DO [address] [facility] [address] [place], [place] [id number] 06/06/2025 8:40 AM EDT Routine [facility] BCP OB [address] [place] [address] [place] [phone] Christy Schwartz PA [address] [place] [address] [place] [address] 06/13/2025 8:30 AM EDT Routine [facility] BCP OB [address] [place] [address] [place] [address] Christy Schwartz PA [address] [place] [address] Dr [place], [place] 7578711 documented as of this encounter Goals Goal Patient Goal Type Associated Problems Recent Progress Patient-Stated? Author Reminders Care Plan OB Reminders No Open Scheduling, Background documented as of this encounter Visit Diagnoses Not on filedocumented in this encounter Additional Health Concerns Active Problems Noted Date Diagnosed Date OB Reminders 11/26/2024 documented as of this encounter
--- OUTSIDE RECORDS SUMMARY | 2025-05-16 17:05 | XMS_ITS | Encounter Summary ---
Author Organization [facility] Address [address] [place] [address] Care Team Providers Care Human Resources District Manager Name Role Phone Unavailable Primary Care Provider Unavailabl e Encounter Details Date Type Department Care Team (Late st Contact Info) Description 04/19/2025 Results Follow-Up [facility] BCP OB [address] [facility] [place] [address] Mary Thorpe LPN [address] [place] [address] Social History Tobacco Use Types [...] AM EDT Routine [facility] BCP OB [address] [facility] [place] [address] Christy Schwartz, PA [address] [facility] [place] [address] 05/30/2025 8:30 AM EDT Routine [facility] BCP OB [address] [place] [address] Cain Donaldson DO [address] [facility] [place] [address] 06/06/2025 8:40 AM EDT Routine [facility] B[facility] OB [address] [place] [address] [place] [address] Christy Schwartz, PA [address] [facility] [place] [address] 06/13/2025 8:30 AM EDT Routine [facility] BCP OB [address] [place] [address] Christy Schwartz, PA [address] [facility] [place] [address] documented as of this encounter Goals Goal Patient Goal Type Associated Problems Recent Progress Patient-Stated? Author Reminders Care Plan OB Reminders No Open Scheduling, Background documented as of this encounter Visit Diagnoses Not on filedocumented in this encounter Additional Health Concerns Active Problems Noted Date Diagnosed Date OB Reminders 11/26/2024 documented as of this encounter
--- OUTSIDE RECORDS SUMMARY | 2025-05-16 17:05 | XMS_ITS | Encounter Summary ---
Author Organization [facility] Address [address] [place] [address] Care Team Providers Care Portable Sawmill Operator Name Role Phone Unavailable Primary Care Provider Unavailabl e Encounter Details Date Type Department Care Team (Latest Contact Info) Description 05/09/2025 Travel Social History Tobacco Use Types Packs/Day [...] [facility] BCP OB 102 [facility] [place] [address] Christy Schwartz PA [address] [place] [address] Dr [place], [facility]11 05/30/2025 8:30 AM EDT Routine [facility] BCP OB [address] [place] [address] [place] [address] Cain Donaldson, DO [address] [place] [address] Dr Kelsey [place], [facility]11 06/06/2025 8:40 AM EDT Routine [facility] BCP OB [address] [place] [address] [place] [address] Christy Schwartz PA [address] [place] [address] [place] [address] 06/13/2025 8:30 AM EDT Routine [facility] BCP OB [address] [place] [address] [place] [address] Christy Schwartz, PA [address] [facility] [address] [place], [place] 50798[address] documented as of this encounter Goals Goal Patient Goal Type Associated Problems Recent Progress Patient-Stated? Author Reminders Care Plan OB Reminders No Open Scheduling, Background documented as of this encounter Visit Diagnoses Not on filedocumented in this encounter Additional Health Concerns Active Problems Noted Date Diagnosed Date OB Reminders 11/26/2024 documented as of this encounter
--- OUTSIDE RECORDS SUMMARY | 2025-05-16 17:05 | XMS_ITS | Encounter Summary ---
Author Organization [facility] Address [address] [place] [place] [address] Care Team Providers Care Head Start Director Name Role Phone Unavailable Primary Care Provider Unavailabl e Encounter Details Date Type Department Care Team (Late Contact Info) Description 01/27/2025 Orders Only [facility] BCP OB [address] [facility] [place] [address] Damaris Lopez LPN [address] [facility] [address] [place] [facility] Social [...] [facility] [place] [address] Christy Schwartz PA [address] [facility] [address] [place], [place] [address] 05/30/2025 8:30 AM EDT Routine [facility] BCP OB [address] [facility] [place] [address] Cain Donaldson DO [address] [facility] [place] [address] 06/06/2025 8:40 AM EDT Routine [facility] BCP OB [address] [place] [address] [place] [address] Christy Schwartz PA [address] [facility] [address] [place], [place] 568[address] 06/13/2025 8:30 AM EDT Routine [facility] OB [address] [place] [address] [place] [address] Christy Schwartz PA [address] [facility] [address] [place], [place] 6[address] documented as of this encounter Goals Goal Patient Goal Type Associated Problems Recent Progress Patient-Stated? Author Reminders Care Plan OB Reminders No Open Scheduling, Background documented as of this encounter Procedures Procedure Name Priority Date/Time Associated Diagnosis Comments PAP SMEAR Routine 01/20/2025 12:00 AM EDT documented in this encounter Results * Pap Smear (01/20/2025 12:00 AM EDT) Swab Cervical swab / Unknown [facility] Nurse [facility] Bcp Ob LAB CYTOLOGY ORDERABLES Final Result EXTERNAL LAB documented in this encounter Visit Diagnoses Not on filedocumented in this encounter Additional Health Concerns Active Problems Noted Date Diagnosed Date OB Reminders 11/26/2024 documented as of this encounter
--- OUTSIDE RECORDS SUMMARY | 2025-05-16 17:05 | XMS_ITS | Encounter Summary ---
Author Organization [facility] Address [address] [place] [address] Care Team Providers Care Stapler Machine Name Role Phone Unavailable Primary Care Provider Unavailabl e Encounter Details Date Type Department Care Team (Late st Contact Info) Description 04/14/2025 Abstract N[facility]S [facility] OB [address] [facility] [place] [address] Yue Dumont MA Social History Tobacco [...] EDT Routine [facility] BCP OB [address] [facility] [place] [address] Christy Schwartz PA [address] [facility] [address] [place], [facility]11 05/30/2025 8:30 AM EDT Routine [facility] BCP OB 102 [facility] [place] [place] [address] Cain Donaldson DO [address] [place] [address] Dr [place], [place] [address] 06/06/2025 8:40 AM EDT Routine [facility] BCP OB [address] [place] [address] [place] [address] Christy Schwartz PA [address] [place] [address] [place] [address] 06/13/2025 8:30 AM EDT Routine [facility] BCP OB [address] [place] [address] [place] [address] Christy Schwartz PA [address] [place] [address] [place], [place] [address] documented as of this encounter Goals Goal Patient Goal Type Associated Problems Recent Progress Patient-Stated? Author Reminders Care Plan OB Reminders No Open Scheduling, Background documented as of this encounter Visit Diagnoses Not on filedocumented in this encounter Additional Health Concerns Active Problems Noted Date Diagnosed Date OB Reminders 11/26/2024 documented as of this encounter
--- OUTSIDE RECORDS SUMMARY | 2025-05-16 17:05 | XMS_ITS | Encounter Summary ---
Author Organization [facility] tem Address [id number] [address] [place] [address] Care Team Providers Care Cardiology Teacher Name Role Phone Unavailable Primary Care Provider Unavailabl e Encounter Details Date Type Department Care Team (Late st Contact Info) Description 05/11/2025 Telephone Maternal- Medicine at [facility] [address] [place] [address] Belen Fowler, ANNETTE Social History Tobacco Use Types Packs/Day Years [...] encounter Miscellaneous Notes * Telephone Encounter - ANNETTE Peter - 05/11/2025 12:17 PM EDT Left a voicemail regarding her blood sugar log from 05/02/25 to 05/08/25. Dr. Askew reviewed it, andthere are no medication changes this week. Continue 25 units of lantus in the evening. Patient to continue sending weekly BG logs. Will send MyChart as well. documented in this encounter Plan of Treatment Upcoming Encounters Date Type Department Care Team (Late st Contact Info) Description 05/23/2025 1:30 PM EDT Telemedicine Maternal- Medicine at [facility] [address] [place] [address] Devika Pulido, PA-C [address] [address] documented as of this encounter Visit Diagnoses Diagnosis Insulin controlled gestational diabetes mellitus (GDM) in second trimester- Primary documented in this encounter Additional Health Concerns Assessment Noted Time PHQ-9 Depression Total Score: 2 07/03/20 16 9:00 AM EDT documented as of this encounter
--- OUTSIDE RECORDS SUMMARY | 2025-05-16 17:05 | XMS_ITS | Encounter Summary ---
Author Organization [facility] tem Address [facility] [place] [id number] [address] [place] [address] Care Team Providers Care Fulfillment Specialist Name Role Phone Unavailable Primary Care Provider Unavailabl e Encounter Details Date Type Department Care Team (Late st Contact Info) Description 01/27/2025 Orders Only Maternal- Medicine at [facility] [address] [place] [phone] Sintia Martinez, QUALITY ANALYST/TECHNICAL WRITER-GLOBAL REGULATORY AFFAIRS MANAGER [address] [place] [address] Social History Tobacco Use Types Packs/Day Years [...] 1:30 PM EDT Telemedicine Maternal- Medicine at [facility] [address] [place] [address] Devika Pulido, HOLLYC [address] [address] documented as of this encounter Visit Diagnoses Not on filedocumented in this encounter Additional Health Concerns Assessment Noted Time PHQ-9 Depression Total Score: 2 07/03/20 16 9:00 AM EDT documented as of this encounter
--- OUTSIDE RECORDS SUMMARY | 2025-05-16 17:05 | XMS_ITS | Encounter Summary ---
Author Organization [facility] Address [address] [place] [address] Care Team Providers Care Hand I Cutter Name Role Phone Unavailable Primary Care Provider Unavailabl e Encounter Details Date Type Department Care Team (Late Contact Info) Description 01/10/2025 Abstract [facility] [address] [facility] [place] [address] Cain Donaldson DO [address] [place] [address] Dr Kelsey Pri[place], [facility]11 Social History Tobacco Use Types [...] [address] [facility] [place] [address] Christy Schwartz PA [address] [place] [address] [place], [place] [phone] 05/30/2025 8:30 AM EDT Routine [facility] [address] [facility] [place] [address] Cain Donaldson DO [address] [facility] [place] [address] 06/06/2025 8:40 AM EDT Routine [facility] OB [address] [place] [address] [place] [phone] Christy Schwartz PA [address] [facility] [address] [place], [place] [phone] 06/13/2025 8:30 AM EDT Routine [facility] OB [address] [place] [address] [place] [phone] Christy Schwartz PA [address] [facility] [address] [place], [place] [phone] documented as of this encounter Goals Goal Patient Goal Type Associated Problems Recent Progress Patient-Stated? Author Reminders Care Plan OB Reminders No Open Scheduling, Background documented as of this encounter Visit Diagnoses Not on filedocumented in this encounter Additional Health Concerns Active Problems Noted Date Diagnosed Date OB Reminders 11/26/2024 documented as of this encounter
--- OUTSIDE RECORDS SUMMARY | 2025-05-16 17:05 | XMS_ITS | Encounter Summary ---
Author Organization [facility] tem Address [id number] [address] [place] [address] Care Team Providers Care Clinical Application Consultant Name Role Phone Unavailable Primary Care Provider Unavailabl e Encounter Details Date Type Department Care Team (Late Contact Info) Description 12/30/2024 Orders Only Maternal- Medicine at [address] [phone] Ref Prov, [place] [address] Social History Tobacco Use Types Packs/Day Years [...] Department Care Team (Late Contact Info) Description 05/23/2025 1:30 PM EDT Telemedicine Maternal- Medicine at [facility] [address] [place] [phone] Devika Pulido, HOLLYC [address] [address] documented as of this encounter Visit Diagnoses Not on filedocumented in this encounter Additional Health Concerns Assessment Noted Time PHQ-9 Depression Total Score: 2 07/03/20 16 9:00 AM EDT documented as of this encounter
--- OUTSIDE RECORDS SUMMARY | 2025-05-16 17:05 | XMS_ITS | Clinical Summary ---
Author Organization [facility] Address [address] [place] [place] [address] Care Team Providers Care Interlocking Tower Operator Name Role Phone Unavailable Primary Care Provider Unavailabl e Allergies No known active allergies Medications Alcohol Swabs (Alcohol Prep Pad) 70 % padsIndications: Elevated glucose tolerance test, resulting from in vitro fertilization, antepartum ([facility]) Apply 1 Pad topically Daily Use four times daily to check FSBS. 150 each 3 5 Active Blood Glucose Monitoring Suppl (D-Care Glucometer) w/Device kitIndications:E levated glucose tolerance test, resulting from in vitro fertilization, antepartum ([facility]) 1 kit Daily Use four times daily to check FSBS. In the morning prior to breakfast & 1 hour after each meal for a total of 4times daily. 1 kit 5 12/23/19 26 Active insulin syringe 29G X 1/2 0.5 mL miscIndications: Gestational diabetes mellitus (GDM), antepartum, gestational diabetes method of control unspecified ([facility]) Use 2 syringes in the morning for insulin dosage and 2 syringes in the Evening for insulin dosage. Total of 4 syringes daily needed. 120 each 5 5 Active insulin glargine (Lantus SoloStar) 100 UNIT/ML pen Inject under the skin Active amoxicillin (Amoxil) 500 MG tabletIndication s:Non-recurrent acute serous otitis media of left ear Take 1 tablet (500 mg) by mouth in the morning and 1 tablet (500 mg) in the evening and 1 tablet (500 mg) before bedtime. Do all this for 7 days. 21 tablet 05/23/20 25 Active Encounters Date Type Department Care Team Description 05/16/2025 8:30 AM EDT Routine [facility] OB [address] [place] [address] [place] [address] Alfredo Donaldson, 34 weeks gestation of ([facility]); Third trimester ([facility]); Conceived by in vitro fertilization; Factor 5 Leiden mutation, heterozygous ([facility]); Insulin controlled gestational diabetes mellitus (GDM) during , antepartum ([facility]); Non-recurrent acute serous otitis media of left ear 05/16/2025 Bamboo flowsheet [facility] OB [address] [place], [place] [address] [address] Alfredo Donaldson DO 05/10/2025 8:00 AM EDT Ancillary Procedure [facility] OB [address] [place] [address] [place] [address] Insulin controlled gestational diabetes mellitus (GDM) during , antepartum ([facility]); Gestational diabetes mellitus (GDM), antepartum, gestational diabetes method of control unspecified ([facility]) 05/10/2025 Clinisync Result Encounter [facility]OMS External Department Unsolicited Belgica Scherer NP 05/09/2025 Travel 05/04/2025 Clinisync Result Encounter NOMS External Department Unsolicited Belgica Scherer NP 05/03/2025 8:50 AM EDT Routine NOM[facility] [address] [place] [phone] Christy Schwartz PA Gestational diabetes mellitus (GDM), antepartum, gestational diabetes method of control unspecified ([facility]-HCC) (Primary Dx); Third trimester ([facility]-HCC); 32 weeks gestation of ([facility]-HCC); Conceived by in vitro fertilization; Factor 5 Leiden mutation, heterozygous ([facility]-HCC); Insulin controlled gestational diabetes mellitus (GDM) during , antepartum ([facility]-HCC); size inconsistent with dates ([facility]-HCC) 05/03/2025 Bamboo flowsheet NOM[facility] [address] [place] [address] Christy Schwartz PA 04/27/2025 Clinisync Result Encounter NOMS External Department Unsolicited Belgica Scherer NP 04/26/2025 Travel 04/22/2025 Abstract [facility] OB [address] [place], [place] [address] [address] Alfredo Donaldson, DO 04/19/2025 Results Follow-Up [facility] OB [address] [place] [address] [place] [phone] Mary Thorpe LPN 04/19/2025 Clinisync Result Encounter NOMS External Department Unsolicited Alfredo Donaldson, DO 04/19/2025 Clinisync Result Encounter NOMS External Department Unsolicited Alfredo Donaldson, DO 04/18/2025 10:10 AM EDT Routine NOM[facility] [address] [place] [address] Alfredo Donaldson, DO Third trimester ([facility]); 30 weeks gestation of ([facility]) 04/18/2025 Clinisync Result Encounter NOMS External Department Unsolicited Alfredo Donaldson, DO 04/18/2025 Bamboo flowsheet [facility] [place] [address] Alfredo Donaldson, DO 04/17/2025 Clinisync Result Encounter NOMS External Department Unsolicited Alfredo Donaldson, DO 04/14/2025 Abstract [facility] OB [address] [place] [address] [place] [address] Yue Dumont MA 04/11/2025 Clinisync Result Encounter NOMS External Department Unsolicited Alfredo Donaldson, DO 04/11/2025 Clinisync Result Encounter NOMS External Department Unsolicited Alfredo Donaldson, DO 04/05/2025 Clinisync Result Encounter NOMS External Department Unsolicited Alfredo Donaldson, DO 03/30/2025 8:50 AM EDT Routine [facility] OB [place] [address] Christy Schwartz PA Second trimester ([facility]); 27 weeks gestation of ([facility]); Gestational diabetes mellitus (GDM), antepartum, gestational diabetes method of control unspecified ([facility]); Factor 5 Leiden mutation, heterozygous ([facility]); Conceived by in vitro fertilization 03/30/2025 Bamboo flowsheet NOM[facility] [address] [place] [address] Christy Schwartz PA 03/30/2025 Travel 03/18/2025 Abstract [facility] [address] [place] [address] Yue Dumont MA 03/03/2025 8:40 AM EDT Routine NOM[facility] [address] [place] [address] Alfredo Donaldson DO 23 weeks gestation of ([facility]); Second trimester ([facility]); induced hypertension, antepartum ([facility]); Insulin controlled gestational diabetes mellitus (GDM) during , antepartum ([facility]) 03/03/2025 Bamboo flowsheet NOM[facility] [address] [place] [address] Alfredo Donaldson DO 03/02/2025 Travel from Last 3 Months Social History [...] (239 lb) 05/16/2025 8:37 AM EDT Height 157.5 cm (5' 2 ) 04/18/2025 10:34 AM EDT Body Mass Index 43.71 04/18/2025 10:34 AM EDT Plan of Treatment Upcoming Encounters Date Type Department Care Team (Late st Contact Info) Description 05/26/2025 8:50 AM EDT Routine [facility] OB [address] [place] [place] [phone] Christy Schwartz, PA [address] [place] [address] [place], [place] [phone] 05/30/2025 8:30 AM EDT Routine [facility] OB [address] [place] [address] [place] [address] Alfredo Donaldson DO [address] [facility] [place] [address] 06/06/2025 8:40 AM EDT Routine [facility] B[facility] OB [address] [place] [address] [place] [phone] Christy Schwartz, PA [address] [facility] [place] [address] 06/13/2025 8:30 AM EDT Routine [facility] OB [address] [place] [address] [place] [phone] Christy Schwartz, PA [address] [facility] [address] [place], [place] [phone] Health Maintenance Due Date Last Done Comments HPV/Cotest 2023 Influenza Vaccine (#1) 2025 08/03/2024, 2022, 10/07/2022 Cervical Cancer Screening 01/21/2028 Pap Smear 01/21/2028 01/20/2025 Goals Goal Patient Goal Type Associated Problems Recent Progress Patient-Stated? Author Reminders Care Plan OB Reminders No Open Scheduling, Background Procedures Procedure Name Priority Date/Time Associated Diagnosis Comments POCT URINALYSIS DIPSTICK Routine 05/16/2025 8:43 AM EDT 34 weeks gestation of ([facility]) Third trimester ([facility]) US OB BPP W NON-STRESS 05/10/2025 6:23 PM EDT US OB FOLLOW UP TRANSABDOMINAL APPROACH Routine 05/10/2025 8:32 AM EDT Insulin controlled gestational diabetes mellitus (GDM) during , antepartum ([facility]) Gestational diabetes mellitus (GDM), antepartum, gestational diabetes method of control unspecified ([facility]) US OB BPP W NON-STRESS 05/04/2025 7:58 AM EDT POCT URINALYSIS DIPSTICK Routine 05/03/2025 9:11 AM EDT Third trimester ([facility]) US OB BPP W NON-STRESS 04/27/2025 8:07 AM EDT US OB BPP W NON-STRESS 04/19/2025 9:04 AM EDT US RENAL BI 04/19/2025 8:49 AM EDT TBH CREATININE Routine 04/18/2025 11:43 PM EDT TBH GLUCOSE BLOOD Routine 04/18/2025 11: 43 PM EDT ALL BUN Routine 04/18/2025 11:43 PM EDT ALL CBC WITH AUTO DIFF Routine 11:43 PM EDT TBH CREATININE URINE Routine 04/18/2025 9:05 PM EDT TBH URINE MICROSCOPIC ONLY Routine 04/18/2025 9:05 PM EDT TBH UA (CLEAN/CATCH) WASH HOUSE WORKER/MICRO IF IND. Routine 04/18/2025 9:05 PM EDT POCT URINALYSIS DIPSTICK Routine 04/18/2025 10:40 AM EDT Third trimester ([facility]) TBH TOTAL PROTEIN 24 HOUR URINE Routine 04/17/2025 10:30 AM EDT US OB BPP W NON-STRESS 04/11/2025 7:34 PM EDT CCF APTT Routine 04/11/2025 4:52 PM EDT SRMCOH PROTHROMBIN TIME INR W/O COUM Routine 04/11/2025 4:52 PM EDT ALL CBC WITH AUTO DIFF Routine 4:52 PM EDT ALL LDH Routine 04/11/2025 4:52 PM EDT CCF AST Routine 04/11/2025 4:52 PM EDT ALL URIC ACID Routine 04/11/2025 4:52 PM EDT TBH CREATININE Routine 04/11/2025 4:52 PM EDT ALL BUN Routine 04/11/2025 4:52 PM EDT US OB BPP W NON-STRESS 04/05/2025 5:58 PM EDT POCT URINALYSIS DIPSTICK Routine 03/03/2025 9:08 AM EDT 23 weeks gestation of ([facility]) Second trimester ([facility]) PAP SMEAR Routine 01/20/2025 12:00 AM EDT from Last 3 Months or Most Recently Relevant to Health Maintenance Results * (ABNORMAL) POCT urinalysis dipstick manually resulted (05/16/2025 8:43 AM EDT) Only the most recent of4 resultswithin the time period is included. Color, [...] Positive Urine 05/16/2025 8:43 AM EDT us Alfredo Donaldson DO POINT OF CARE TEST ENTER/EDIT OR DERABLES Final Result * US OB BPP W NON-STRESS (05/10/2025 6:23 PM EDT) Only the most recent of6 resultswithin the time period is included. Anatomical Region Laterality Modality Other 05/10/2025 6:23 PM EDT Narrative 05/10/2025 6:26 PM EDT [address] [address] Ultrasound Report Signed Patient: KEVIN WHITE MR#: [id number] : 1995 Acct:[id number] Age/Sex: 29 / F ADM Date: 05/10/25 Loc: US Attending Dr: Belgica Scherer Ordering Physician: Belgica Scherer Date of Service: 05/10/25 Procedure(s): US OB BPP w non-stress Accession Number(s): [id number] cc: Belgica Scherer; Alfredo Donaldson D.O. [address] [address] Patient Name: KEVIN WHITE MRN: [facility]:[id number] date: 1995 Sex: F Assigned Patient Location: [facility] Current Patient Location: Accession/Order Number: [id number] Exam Date: 05/10/2025 18:22 Report Date: 05/10/2025 18:23 At the request of: BELGICA SCHERER Procedure: [...] Epperson M.D. 05/10/2025 6:23 PM Dictation Location: [place] [address] Electronically authenticated by: [id number] Y Date: 05/10/2025 18:23 Dictated By: Larry Epperson M.D. Signed By: 05/10/251825 DD/ 22 TD/TT: Plant Puller: Procedure Note Radiology, Radiologist, MD - 05/10/2025 [place] [address] Ultrasound Report Signed Patient: KEVIN WHITEMR#: [id number] : 1995Acct:[id number] Age/Sex: 29 / FADM Date: 05/10/25 Loc: US Attending Dr: Belgica Scherer Ordering Physician: Belgica Scherer Date of Service: 05/10/25 Procedure(s): US OB BPP w non-stress Accession Number(s): [id number] cc: Belgica Scherer; Alfredo Donaldson D.O. The [place] [id number] Patient Name: KEVIN WHITE MRN: [id number] date: 1995 Sex: F Assigned Patient Location: [facility] Current Patient Location: Accession/Order Number: [id number] Exam Date: 05/10/2025 18:22 Report Date: 05/10/2025 18:23 At the request of: BELGICA SCHERER Procedure: [...] Epperson M.D. 05/10/2025 6:23 PM Dictation Location: [place] [facility] Electronically authenticated by: [id number] Y Date: 8:23 Dictated By: Larry Eppersno M.D. Signed By:05/10/251825 DD/ 22 TD/TT: Plant Puller: us Belgica Scherer [facility] Final Resul t * US OB follow up transabdominal approach [...] OB US PROCEDURES Final Resul t * US RENAL BI (04/19/2025 8:49 AM EDT) Anatomical Region Laterality Modality Other 04/19/2025 8:49 AM EDT Narrative 04/19/2025 8:52 AM EDT The [address] [address] Ultrasound Report Signed Patient: KEVIN WHITE MR#: [id number] : 1995 Acct:[id number] Age/Sex: 29 / F ADM Date: Loc: [facility] 920-[address]: Alfredo Donaldson D.O. Ordering Physician: Alfredo Donaldson D.O. Date of Service: 04/19/25 Procedure(s): US renal BI Accession Number(s): [id number] cc: Alfredo Donaldson D.O. The [place] [address] Patient Name: KEVIN WHITE MRN: [facility]:[id number] date: 1995 Sex: F Assigned Patient Location: LAB Current Patient Location: Accession/Order Number: [id number] Exam Date: 04/19/2025 08:46 Report Date: 04/19/2025 [...] Munson M.D. 04/19/2025 8:49 AM Dictation Location: [place] [address] Electronically authenticated by: [id number] Y Date: 04/19/2025 08:49 Dictated By: Justina Munson M.D. Signed By: 04/19/25 0852 DD/ 0849 TD/TT: Plant Puller: Procedure Note Radiology, Radiologist, - 04/19/2025 [place] [address] Ultrasound Report Signed Patient: KEVIN WHITEMR#: [id number] : 1995Acct:[id number] Age/Sex: 29 FADM Date: Loc: [facility] 254-[address]: Alfredo Donaldson D.O. Ordering Physician: Alfredo Donaldson D.O. Date of Service: 04/19/25 Procedure(s): US renal BI Accession Number(s): [id number] cc: Alfredo Donaldson D.O. [place] [address] Patient Name: KEVIN WHITE MRN: [id number] date: 1995 Sex: F Assigned Patient Location: LAB Current Patient Location: Accession/Order Number: [id number] Exam Date: 04/19/2025 08:46 Report Date: 04/19/2025 [...] Munson M.D. 04/19/2025 8:49 AM Dictation Location: [place] [address] Electronically authenticated by: [id number] Y Date: 508:49 Dictated By: Justina Munson M.D. Signed By:04/19/25 0852 DD/ 0849 TD/TT: Plant Puller: [facility] Final Result * (ABNORMAL) TBH GLUCOSE BLOOD (04/18/2025 11:43 PM EDT) GLUCOSE 108(H) 74 - 106 mg/dL TBH 04/18/2025 11:4 3 PM EDT 04/19/2025 12:07 AM EDT Narrative CLINISYNC - 04/19/2025 12:15 AM EDT [facility] Final Result Performing Organization Address City/[facility]/ZIP Co de Phone Number [facility] * (ABNORMAL) TBH CREATININE (04/18/2025 11:43 PM EDT) Only the most recent of2 resultswithin the time period is included. CREATININE 0.44(L) 0.55 - 1.02 mg/dL TBH TBH EGFR-AF [place] >60 >=60 mL/min/1.7 3m 2 TBH TBH EGFR-NON AF [place] >60 >=60 mL/min/1.7 3m 2 TBH 04/18/2025 11:4 3 PM EDT 04/19/2025 12:48 AM EDT [facility] CLINISYNC - 04/19/2025 12:56 AM EDT [facility] Final Result Performing Organization Address City/[facility]/ZIP Co de Phone Number [facility] * (ABNORMAL) ALL CBC WITH AUTO DIFF (04/18/2025 11:43 PM EDT) Only the most recent of2 resultswithin the time period is included. TBH WBC 8.0 4.0 - 11.0 10 3/uL TBH TBH RBC 3.61(L) 4.20 - 5.40 10 6/uL TBH TBH HGB 10.8(L) 12.0 - 16.0 g/dL TBH TBH HCT 31.1(L) 36.0 - 48.0 % TBH TBH MCV 86.1 81.0 - 99.0 fL TBH TBH MCH 29.9 26.7 - 34.0 pg TBH TBH MCHC 34.7 29.9 - 35.2 g/dL TBH TBH RDW 13.3 11.0 - 15.0 % TBH [...] Narrative CLINISYNC - 04/18/2025 11:57 PM EDT us Alfredo Mendoza DO [facility]IN[facility] Final Result [facility] * ALL BUN (04/18/2025 11:43 PM EDT) Only the most recent of2 resultswithin the time period is included. Pathologist [facility] BLOOD UREA NITROGEN 13.0 7.0 - 18.0 mg/dL TBH 04/18/2025 11:4 3 PM EDT 04/18/2025 11:53 PM EDT Narrative CLINISYNC - 04/19/2025 12:04 AM EDT [facility] Mendoza DO CLINISYNC Final Result Performing Organization Address [facility] Co de Phone Number CLINISYNC TBH * (ABNORMAL) TBH URINE MICROSCOPIC ONLY (04/18/2025 [...] Narrative CLINISYNC - 04/18/2025 10:[address] [facility] DO CLINISYNC Final Result Performing Organization Address [facility] de Phone Number CLINISYNC TBH * (ABNORMAL) TBH UA (CLEAN/CATCH) WASH HOUSE WORKER/MICRO IF IND. (04/18/2025 9:05 PM EDT) [...] Narrative CLINISYNC - 04/18/2025 10:09 PM EDT Alfredo Mendoza DO CLINISYNC Final Result CLINISYNC TB * TBH CREATININE URINE (04/18/2025 9:05 PM EDT) CREATININE URINE RANDOM 84.16 20.00 - 300.00 mg/dL TBH 04/18/2025 9:05 PM EDT 04/18/2025 10:44 PM EDT Narrative CLINISYNC - 04/18/2025 10:51 PM EDT Alfredoreyes Veeo DO CLINISYNC Final Result Performing Organization Address [facility] Co de Phone Number CLINISYNC TB * (ABNORMAL) TBH TOTAL PROTEIN 24 HOUR URINE (04/17/2025 10:30 AM EDT) TOTAL PROTEIN URINE RANDOM 9.5 <=11.9 mg/dL TBH TOTAL VOLUME 24 HOUR URINE 3,000 mL/24hr TBH TBH TOTAL PROTEIN 24 HOUR URINE 285.0(H) <=149.1 mg/24hr TBH 04/17/2025 10:3 0 AM EDT 04/18/2025 10:26 AM EDT Narrative CLINISYNC - 04/18/2025 10:45 AM EDT Alfredoreyes Veeo DO CLINISYNC Final Result CLINISYNC TB [...] us Alfredo Mendoza DO [facility] Final Result [facility] * (ABNORMAL) [facility] AST (04/11/2025 4:52 PM EDT) ASPARTATE AMINO TRANSFERASE 11(L) 15 - 37 U/L [facility] 04/11/2025 4:52 PM EDT 04/11/2025 4:56 PM EDT Narrative CLINISYNC - 04/11/2025 5:52 PM EDT us Alfredo Mendoza DO CLINISYNC Final Result Performing Organization Address [facility]/ZIP Co de Phone Number [facility] * [facility] APTT (04/11/2025 4:52 PM EDT) PARTIAL THROMBOPLASTIN TIME 27.3 22.3 - 36.2 sec [facility] 04/11/2025 4:52 PM EDT 04/11/2025 4:56 PM EDT Narrative CLINISYNC - 04/11/2025 5:57 PM EDT us Alfredo Mendoza DO CLINISYNC Final Result Performing Organization Address City/[facility]/ZIP Co de Phone Number [facility] * ALL URIC ACID (04/11/2025 4:52 [...] DO CLINISYNC Final Result [facility]IN[facility] TBH * Pap Smear (01/20/2025 12:00 AM EDT) Swab Cervical swab / Unknown Mendoza Nurse [facility] Ob LAB CYTOLOGY ORDERABLES Final Result EXTERNAL LAB from Last 3 Months or Most Recently Relevant to Health Maintenance Additional Health Concerns Active Problems Noted Date Diagnosed Date OB Reminders 11/26/2024 Insurance
--- OUTSIDE RECORDS SUMMARY | 2025-05-16 17:05 | XMS_ITS | Encounter Summary ---
Author Organization [facility] Address [address] [place] [address] Care Team Providers Care Forensic Chemist Name Role Phone Unavailable Primary Care Provider Unavailabl e Encounter Details Date Type Department Care Team (Late Contact Info) Description 05/04/2025 Clinisync Result Encounter [facility] External Department Unsolicited George Scherer, LEEANN [address] [facility] [place] [address] Social History Tobacco Use Types Packs/Day [...] AM EDT Routine [facility] [address] [facility] [place] [address] Christy Schwartz PA [address] [place], [facility] 05/30/2025 8:30 AM EDT Routine [facility] [address] [facility] [place] [place] [address] Cain Donaldson DO [address] [place] [address] 06/06/2025 8:40 AM EDT Routine [facility] OB [address] [place] [address] [place] [phone] Christy Schwartz PA [address] [place] [address] [place] [address] 06/13/2025 8:30 AM EDT Routine [facility] B[facility] OB [address] [place] [address] [place] [phone] Christy Schwartz PA [address] [facility] [address] [place], [place] [id number] documented as of this encounter Goals Goal Patient Goal Type Associated Problems Recent Progress Patient-Stated? Author Reminders Care Plan OB Reminders No Open Scheduling, Background documented as of this encounter Procedures Procedure Name Priority Date/Time Associated Diagnosis Comments US OB BPP W NON-STRESS 05/04/2025 7:58 AM EDT documented in this encounter Results * US OB BPP W NON-STRESS (05/04/2025 7:58 AM EDT) Anatomical Region Laterality Modality Other 05/04/2025 7:58 AM EDT Narrative 05/04/2025 9:46 AM EDT [facility] [place] [id number] Ultrasound Report Signed Patient: KEVIN WHITE MR#: [id number] : 1995 Acct:[id number] Age/Sex: 29 / F ADM Date: 05/03/25 Loc: US Attending Dr: George Scherer Ordering Physician: George Scherer Date of Service: 05/03/25 Procedure(s): US OB BPP w non-stress Accession Number(s): [id number] cc: George Scherer; Cain Donaldson D.O. The [address] [address] Patient Name: KEVIN WHITE MRN: [facility]:[id number] date: 1995 Sex: F Assigned Patient Location: Current Patient Location: Accession/Order Number: [id number] Exam Date: 05/04/2025 07:57 Report Date: 05/04/2025 07:58 At the request of: GEORGE SCHERER Procedure: US OB BPP w non-stress BIOPHYSICAL PROFILE: CLINICAL INFORMATION: GESTATIONAL DIABETES MELLITUS O24.419 COMPARISON: 04/26/2025 There is a single live intrauterine gestation in cephalic presentation. The reported gestational age is 32 weeks 4 days. The heart rate measures 123 beats per minute. FINDINGS: TONE: 1 or [...] greater than 2 cm [Y] 2/2 ZITA: 10.5 cm. This is in low-normal range. Total score: 8/8 US/US OB BPP w non-stress IMPRESSION: NORMAL BIOPHYSICAL PROFILE Impression dictated by: Justina Munson M.D. 05/04/2025 7:58 AM Dictation Location: [place] [address] Electronically authenticated by: [id number] Y Date: 05/04/2025 07:58 Dictated By: Justina Munson M.D. Signed By: 05/04/25 0946 DD/ 0758 TD/TT: Safety Sealer: Procedure Note Radiology, Radiologist, MD - 05/04/2025 [facility] [place] [id number] Ultrasound Report Signed Patient: KEVIN WHITEMR#: [id number] : 1995Acct:[id number] Age/Sex: 29 / FADM Date: 05/03/25 Loc: US Attending Dr: George Scherer Ordering Physician: George Scherer Date of Service: 05/03/25 Procedure(s): US OB BPP w non-stress Accession Number(s): [id number] cc: George Scherer; Cain Donaldson D.O. [place] [id number] Patient Name: KEVIN WHITE MRN: [facility]:[id number] date: 1995 Sex: F Assigned Patient Location: Current Patient Location: Accession/Order Number: [id number] Exam Date: 05/04/2025 07:57 Report Date: 05/04/2025 07:58 At the request of: GEORGE SCHERER Procedure: US OB BPP w non-stress BIOPHYSICAL PROFILE: CLINICAL INFORMATION: GESTATIONAL DIABETES MELLITUS O24.419 COMPARISON: 04/26/2025 There is a single live intrauterine gestation in cephalic presentation.The reported gestational age is 32 weeks 4 days. The heart ratemeasures 123 beats per minute. FINDINGS: TONE: 1 or [...] greater than 2 cm [Y] 2/2 ZITA: 10.5 cm. This is in low-normal range. Total score: 8/8 US/US OB BPP w non-stress IMPRESSION: NORMAL BIOPHYSICAL PROFILE Impression dictated by: Justina Munson M.D. 05/04/2025 7:58 AM Dictation Location: [place] [address] Electronically authenticated by: [id number] Y Date: 7:58 Dictated By: Justina Munson M.D. Signed By:05/04/25 0946 DD/ 0758 TD/TT: Safety Sealer: George Scherer [facility] Final Resul t documented in this encounter Visit Diagnoses Not on filedocumented in this encounter Additional Health Concerns Active Problems Noted Date Diagnosed Date OB Reminders 11/26/2024 documented as of this encounter
--- OUTSIDE RECORDS SUMMARY | 2025-05-16 17:05 | XMS_ITS | Encounter Summary ---
Author Organization [facility] tem Address [id number] [address] [place] [address] Care Team Providers Care Ophthalmologist Retina Specialist Name Role Phone Unavailable Primary Care Provider Unavailabl e Encounter Details Date Type Department Care Team (Late st Contact Info) Description 05/03/2025 Telephone Maternal- Medicine at [facility] [place] [address] [place] [phone] Shoshana Berger, LD [address] [place] [address] Social History Tobacco Use Types Packs/Day Years [...] Miscellaneous Notes * Telephone Encounter - ANNETTE Burton - 05/03/2025 11:27 AM EDT Called regarding blood sugar logs from 04/25/2025-05/01/2025, she had one elevated fasting blood sugar and two elevated blood sugars after lunch. Ashlynd could account for why her blood sugars were elevated after her meals. Provided encouragement. Continue to monitor carbohydrates and blood sugars. documented in this encounter Plan of Treatment Upcoming Encounters Date Type Department Care Team (Late st Contact Info) Description 05/23/2025 1:30 PM EDT Telemedicine Maternal- Medicine at [facility] [place] [address] [place] [address] Devika Pulido PA-C [address] [address] documented as of this encounter Visit Diagnoses Diagnosis Insulin controlled gestational diabetes mellitus (GDM) in second trimester- Primary documented in this encounter Additional Health Concerns Assessment Noted Time PHQ-9 Depression Total Score: 2 07/03/20 16 9:00 AM EDT documented as of this encounter
--- OUTSIDE RECORDS SUMMARY | 2025-05-16 17:05 | XMS_ITS | Encounter Summary ---
Author Organization [facility] Address [address] [place] [address] Care Team Providers Care Finishing Technician Name Role Phone Unavailable Primary Care Provider Unavailabl e Encounter Details Date Type Department Care Team (Late Contact Info) Description 04/22/2025 Abstract [facility] OB [address] [place] [address] Cain Donaldson DO [address] [place] [address] Dr [place], [facility]11 Social History Tobacco Use Types Packs/Day Years [...] OB [address] [place] [address] Christy Schwartz PA [address] [place] [address] [place], [place] [id number] 05/30/2025 8:30 AM EDT Routine [facility] B[facility] OB [address] [place] [address] Cain Donaldson DO [address] [facility] [place] [address] 06/06/2025 8:40 AM EDT Routine [facility] OB [address] [place] [address] [place] [phone] Christy Schwartz PA [address] [facility] [address] [place], [place] [address] 06/13/2025 8:30 AM EDT Routine [facility] B[facility] OB [address] [place] [address] [place] [phone] Christy Schwartz PA [address] [facility] [address] [place], [place] [id number] documented as of this encounter Goals Goal Patient Goal Type Associated Problems Recent Progress Patient-Stated? Author Reminders Care Plan OB Reminders No Open Scheduling, Background documented as of this encounter Visit Diagnoses Not on filedocumented in this encounter Additional Health Concerns Active Problems Noted Date Diagnosed Date OB Reminders 11/26/2024 documented as of this encounter
--- NOTE | 2025-05-16 17:06 | US_ITS ---
[facility] [place] [id number] Patient Name: FANNIE WHITE MRN: [facility]:[id number] date: 1995 Sex: F Assigned Patient Location: Current Patient Location: Accession/Order Number: [id number] Exam Date: 05/17/2025 08:06 Report Date: 05/17/2025 08:07 At the request of: GEORGE HALE Procedure: US OB BPP w non-stress BIOPHYSICAL PROFILE: CLINICAL INFORMATION: GDM COMPARISON: 05/10/2025 There is a single live intrauterine gestation in cephalic presentation. The reported gestational age is 34 weeks 3 days. The heart rate measures 134 beats per minute. FINDINGS: TONE: 1 or more episodes of activity extension and flexion of extremity or opening and closing of the hand [Y] 2/2 GROSS BODY MOVEMENTS: 3 or more discrete body or limb movements [Y] 2/2 BREATHING MOVEMENTS: 1 or more episodes of breathing lasting at least 30 seconds [Y] 2/2 ZITA: A single deepest vertical pocket of amniotic fluid greater than 2 cm [Y] 2/2 ZITA: 16.0 cm. This is in normal range. Total score: 06/10 US/US OB BPP w non-stress IMPRESSION: NORMAL BIOPHYSICAL PROFILE Impression dictated by: Justina Munson M.D. 05/17/2025 8:07 AM Dictation Location: [place] [address] Electronically authenticated by: [id number] Y Date: 05/17/2025 08:07
[2025-05-16 17:12] VITALS: BP 135/79; PULSE 74
== END 2025-05-16 17:52 | disposition home or self-care (01) ==
LOC: US 17:03 → FBC 17:05
PROVIDERS: PCP Obstetrics & Gynecology; Visit Provider Nurse Practitioner Family
DX: O24.419 Gestational diabetes mellitus in pregnancy, unspecified control (principal); Z3A.34 34 weeks gestation of pregnancy
CPT/HCPCS: 76818

== ENCOUNTER 2025-05-19 17:02 | Outpatient (OUT) | payer BC, SELFPAY ==
--- OUTSIDE RECORDS SUMMARY | 2025-01-21 11:10 | XMS_ITS | Continuity of Care Document ---
Author Organization [facility] Address [address] [place] [address] Phone Care Team Providers Care Clerical Administrator Name Role Phone Miguel Rios Unavailable Unavailable [...] Diagnoses Date Provider Providers Copied on Encounter [facility], [address] [place] [address], [id number] , [place] tel: [phone] [facility] No Information 5 Visci DO Rivera. [address] [place] [address], [id number] , [place]. tel: [phone] [facility], [address] [place] [address], [id number] , [place] tel: [phone] [facility] Encounter for screening for respiratory tuberculosis 5 Visci DO Miguel. [address] [place] [address], [id number] , [place]. tel:[phone] [facility], [address] [place] [address], [id number] , [place] tel: [phone] [facility] No Information 4 Visci DO Miguel. [address] [place] [address], [id number] , [place]. tel: [phone] [facility], [address] [place] [address], [id number] , [place] tel:[phone] [facility] Lab Draw (chief complaint) Other specified disorders of pancreatic internal secretionSubclinical iodine-deficiency hypothyroidismEncount er for screening for other viral diseasesEncounter for screening for other infectious disease 4 Cynthia White. [address] [place], [place], 207958056 , [place]. tel: [phone] [facility], [address] [place], [place], 915751755 , [place] tel: [phone] [facility] lab draw (chief complaint) Encounter for screening for other viral diseases 4 Cynthia White. [address] [place], [place], 881070376 , [place]. tel: [phone] [facility], [address], [place], 547591809 , [place] tel: [phone] [facility] No Information 4 Cynthia White. [address] [place], [place], 708442015 , [place]. tel: [phone] [facility], [address], [place], 347720540 , [place] tel: [phone] [facility] Encounter for screening for respiratory tuberculosis 4 Cynthia White. [address] [place], [place], 773883293 , [place]. tel: [phone] [facility], [address], [place], 080028942 , [place] tel: [phone] [facility] Lab draw (chief complaint) Blood test prior to procedure 4 Cynthia White. [address] [place], [place], 722153047 , [place]. tel: [phone] Referring Provider: Tenisha Leon [place]. [facility], [address], [place], 524056318 , [place] tel: [phone] [facility] No Information 3 Cynthia White. [address] [place], [place], 742988569 , [place]. tel: [phone] [facility], [address], [place], 841924902 , [place] tel: [phone] [facility] COVID Test (chief complaint) Encounter for screening for COVID-19 3 Cynthia White. [address] [place], [place], 479949357 , [place]. tel: [phone] [facility], [address], [place], 450455830 , [place] tel: [phone] [facility] Lab Draw (chief complaint) Encounter for antibody response examination 3 Cynthia White. [address] [place], [place], 386508916 , [place]. tel: [phone] [facility], [address] [place] [address], [id number] , [place] tel: [phone] [facility] lab (chief complaint) Other specified disorders of pancreatic internal secretion 3 Cynthia White. [address] [place], [place], 020178702 , [place]. tel: [phone] [facility], [address] [place] [address], [id number] , [place] tel: [phone] [facility] Lab draw (chief complaint) Blood test prior to procedure 3 Cynthia White. [address] [place], [place], 146049270 , [place]. tel: [phone] [facility], [address] [place] [address], 647153834 , [place] tel: [phone] [facility] lab draw (chief complaint) Endocrine disorder 3 Cynthia White. [address] [place], [place], 029157161 , [place]. tel: [phone] [facility], [address] [place] [address], [id number] , [place] tel: [phone] [facility] Encounter for screening for COVID-19 3 Visci DO Miguel. [address] [place], [place], 260603318 , [place]. tel: [phone] [facility], [address], [place], 512317475 , [place] tel: [phone] [facility] Lab draw (chief complaint) Blood test prior to procedureEncounter for screening for COVID-19 3 Visci DO Miguel. [address] [place], [place], 087510700 , [place]. tel: [phone] [facility], [address], [place], 631337592 , [place] tel: [phone] [facility] No Information 3 Visci DO Miguel. [address] [place], [place], 244066281 , [place]. tel: [phone] [facility], [address], [place], 549482555 , [place] tel: [phone] [facility] No Information 3 Visci DO Miguel. [address], [place], 872644118 , [place]. tel: [phone] [facility], [address], [place], 363685022 , [place] tel: [phone] [facility] No Information 2 Visci DO Miguel. [address], [place], 561263812 , [place]. tel: [phone] [facility], [address], [place], 219507760 , [place] tel: [phone] [facility] No Information 2 Visci DO Miguel. [address], [place], 426872060 , [place]. tel: [phone] [facility], [address], [place], 265390067 , [place] tel: [phone] [facility] No Information 2 Visci DO Miguel. [address] [place], [place], 048875217 , [place]. tel: [phone] [facility], [address], [place], 653176026 , [place] tel: [phone] [facility] Encounter for screening for respiratory tuberculosis 2 Visci DO Miguel. [address] [place], [place], 992590275 , [place]. tel: [phone] [facility], [address], [place], 203594255 , [place] tel: [phone] [facility] Encounter for screening for respiratory tuberculosis 2 Visci DO Miguel. [address] [place], [place], 831894849 , [place]. tel: [phone] [facility], [address], [place], 765519027 , [place] tel: [phone] [facility] Encounter for screening for respiratory tuberculosis 2 Visci DO Miguel. [address] [place], [place], 819054012 , [place]. tel: [phone] [facility], [address], [place], 387252340 , [place] tel: [phone] [facility] No Information 1 Visci DO Miguel. [address] [place], [place], 516382612 , [place]. tel: [phone] [facility], [address] [place], [place], 519340325 , [place] tel: [phone] [facility] No Information 1 Visci DO Miguel. [address] [place], [place], 258617330 , [place]. tel: [phone] [facility], [address], [place], 338356125 , [place] tel: [phone] [facility] No Information 1 Visci DO Miguel. [address] [place], [place], 165848839 , [place]. tel:[phone] Family History Family Member Type Diagnosis Age [...] Insurance type Covered democrat ID Authoriza tion(s) [place] [id number] [place] [id number] [place] [id number] [place] [id number] [place] [id number] [place] [id number] [place] [id number] Social History Type Description Quantity Date Captured [...] du e Goal Influenza vaccine. Due on Ne due Goal Unhealthy drug use screening . [...] on due Goal Influenza vaccine. Due on Ne due Goal PRAPARE ASSESSMENT. Due on due [...] du e Goal Influenza vaccine. Due on Dana y due Goal RLP. Due on due Goal Tdap Vaccine. Due on 2031 due Goal PAP. Due on due Goal Influenza vaccine. Due on Ne r due Goal Depression screening. Due on [...] on due Goal Influenza vaccine. Due on Ne due Goal Tdap due Goal PAP. Due [...]
--- OUTSIDE RECORDS SUMMARY | 2025-05-03 08:50 | XMS_ITS | Encounter Summary ---
Author Organization [facility] Address [address] [place] [address] Care Team Providers Care Kiln Furniture Saw Tender Name Role Phone Unavailable Primary Care Provider Unavailabl e Reason for Visit * Reason Comments Routine Visit Encounter Details Date Type Department Care Team (Latest Contact Info) Description 05/03/2025 8:50 AM EDT Routine [facility] [address] [address] Christy Schwartz PA [address] [place], [place] [address] Gestational diabetes mellitus (GDM), antepartum, gestational diabetes method of control unspecified (HHS-HCC) (Primary Dx); Third trimester (HHS-HCC); 32 weeks gestation of (HHS-HCC); Conceived by in vitro fertilization; Factor 5 Leiden mutation, heterozygous (HHS-HCC); Insulin controlled gestational diabetes mellitus (GDM) during , antepartum (HHS-HCC); size inconsistent with dates ([facility]) Social History Tobacco Use Types Packs/Day Years [...] Sign Reading Time Taken Comments Blood Pressure 130/86 05/03/2025 9:06 AM EDT Pulse - - Temperature - - Respiratory Rate - - Oxygen Saturation - - Inhaled Oxygen Concentration - - Weight 109 kg (240 lb 8 oz) 05/03/2025 9:06 AM E DT Height - - Body Mass Index 43.99 04/18/2025 10:34 AM EDT documented in this encounter Progress Notes * LEELEE Keita - 05/03/2025 8:50 AM EDT Reason for Appointment: Patient ID: Kevin Conley is a 29 y.o. female who presents for Routine Visit Patient presents today for Return OB appointment. MEDICATIONS Current Outpatient Medications Medication Instructions Alcohol Swabs (Alcohol Prep Pad) 70 % pads 1 Pad, Topical, Daily, Use four times daily to check FSBS. Blood Glucose Monitoring Suppl ([employer] Glucometer) w/Device kit 1 kit, Does not [...] Medical History: Diagnosis Date SAB (spontaneous ) ([facility]) 10/2021 HISTORY PAST MEDICAL HISTORY SOCIAL HISTORY Past Medical History: Diagnosis Date SAB (spontaneous ) ([facility]) 10/2021 Social History Tobacco Use Smoking status: [...] Exam Constitutional: Appearance: Normal appearance. She is normal weight. HENT: Head: Normocephalic. Cardiovascular: Rate and Rhythm: Normal rate. Pulses: Normal pulses. Pulmonary: Effort: Pulmonary effort is normal. Breath sounds: Normal breath sounds. Abdominal: Palpations: Abdomen is soft. Musculoskeletal: General: Normal range of motion. Neurological: General: No focal deficit present. Mental Status: She is alert and oriented to person, place, and time. Psychiatric: Mood and Affect: Mood normal. Behavior: Behavior normal. Thought Content: Thought content normal. Judgment: Judgment normal. Vitals and nursing note reviewed. Vitals: Estimated body mass index is 43.99 kg/m² as calculated from the following: Height as of 25: 5' 2 . Weight as of this encounter: 240 lb 8 oz. BP: 130/86 No LMP recorded. Patient is . ASSESSMENT & PLAN ICD-10-CM 1. size inconsistent with dates ([facility]) O26.849 OB follow up transabdominal approach 2. Third trimester ([facility]) Z34.93 POCT urinalysis dipstick manually resulted 3. 32 weeks gestation of ([facility]) Z3A.32 4. Conceived by in vitro fertilization Z78.9 5. Factor 5 Leiden mutation, heterozygous ([facility]) D68.51 6. Insulin controlled gestational diabetes mellitus (GDM) during , antepartum ([facility]) O24.414 Return OB: Patient presents today for a routine obstetrics appointment. Patient is currently 32w4d . Patient states she is doing well but has complaints of being tired due to current . Patient has verbalizes frequent movement. labor precautions was discussed/given and patient was instructed to perform kick counts three times a day. Orders Placed This Encounter Procedures US OB follow up transabdominal approach POCT urinalysis dipstick manually resulted Follow Up: Patient is to return to office in 2 week for routine OB appointment. Documented by LEELEE Keita on behalf of: LEELEE Keita documented in this encounter Miscellaneous Notes * Addendum Note - Christoph Benavides - 05/03/2025 8:50 AM EDTAddended by: CHRISTOPH BENAVIDES on: 05/09/2025 01:51 PM Modules accepted: Orders documented in this encounter Plan of Treatment Upcoming Encounters Date Type Department Care Team (Late st Contact Info) Description 05/26/2025 8:50 AM EDT Routine [facility] [address] [facility] [phone] Christy Schwartz, PA [address] [place] [address] [place], [place] [id number] 05/30/2025 8:30 AM EDT Routine [facility] [address] [place] [address] Cain Donaldson DO [address] [place], [place] [id number] 06/06/2025 8:40 AM EDT Routine [facility] [address] [place] [address] [place] [address] Christy Schwartz, PA [address] [place] [address] [place] [address] 06/13/2025 8:30 AM EDT Routine [facility] [address] [place] [address] [place] [phone] Christy Schwartz, PA [address] [place] [address] [place], [place] [id number] Scheduled Orders Name Type Priority Associated Diagnoses Orde r Schedule US OB follow up transabdominal approach Imaging Routine Insulin controlled gestational diabetes mellitus (GDM) during , antepartum (HHS-HCC) Gestational diabetes mellitus (GDM), antepartum, gestational diabetes method of control unspecified ([facility]) every 4 weeks for 4 Occurrences starting 05/09/2025 until 06/24/2025, 1 completed documented as of this encounter Goals Goal Patient Goal Type Associated Problems Recent Progress Patient-Stated? Author Reminders Care Plan OB Reminders No Open Scheduling, Background documented as of this encounter Procedures Procedure Name Priority Date/Time Associated Diagnosis Comments POCT URINALYSIS DIPSTICK Routine 05/03/2025 9:11 AM EDT Third trimester ([facility]) documented in this encounter Results * US OB follow up transabdominal approach (05/10/2025 8:32 AM EDT) Anatomical Region Laterality Modality Body Ultrasound 05/10/2025 1:23 PM EDT Impressions 05/10/2025 2:44 PM EDT Single, live intrauterine , current sonographic age of 34 weeks and 2 days, with an estimated date of delivery of June 19, 2025. * Estimated Weight (g) by Percentile is based upon an accurate estimated age based on last menstrual period. TRANSCRIBED BY: ELECTRONICALLY SIGNED BY: Mike Lucero MD Narrative 05/10/2025 2:44 PM EDT FINDINGS: A single, live intrauterine is present with normal cardiac rate of 131 beats per minute. Normal activity and amniotic fluid volume. Amniotic fluid index is 17.8 cm, largest fluid pocked 5.3 cm. Morphology is grossly normal. The cervix is obscured from cephalic positioning. The current sonographic age is 34 weeks and 2 days, based on the following measurements: BPD 8.6 cm (34 weeks, 5 days) Head Circumference 32.0 cm (36 weeks, 0 days) Abdominal Circumference 29.5 cm (33 weeks, 3 days) Femur Length 6.4 cm (33 weeks, 0 days) Presentation Cephalic Weight (g) by Percentile 46.9 % * These measurements result in an estimated date of delivery of June 19, 2025. The current estimated weight is 2262 grams (5 pounds, 0 ounces). Procedure Note Mike Lucero MD - 05/10/2025 FINDINGS: A single, live intrauterine is present with normal cardiacrate of 131 beats per minute. Normal activity and amniotic fluidvolume. Amniotic fluid index is 17.8 cm, largest fluid pocked 5.3 cm.Morphology is grossly normal. The cervix is obscured from cephalicpositioning. The current sonographic age is 34 weeks and 2 days, basedon the following measurements: BPD 8.6 cm (34 weeks, 5 days) Head Circumference 32.0 cm (36 weeks, 0 days) Abdominal Circumference 29.5 cm (33 weeks, 3 days) Femur Length 6.4 cm (33 weeks, 0 days) Presentation Cephalic Weight (g) by Percentile 46.9 % * These measurements result in an estimated date of delivery of June. The current estimated weight is 2262 grams (5 pounds, 0ounces). IMPRESSION: Single, live intrauterine , current sonographic age of 34 weeksand 2 days, with an estimated date of delivery of June 19, 2025. * Estimated Weight (g) by Percentile is based upon an accurateestimated age based on last menstrual period. TRANSCRIBED BY: ELECTRONICALLY SIGNED BY: Mike Lucero MD Christy MCKOY IMG OB US PROCEDURES Final Resul t * (ABNORMAL) POCT urinalysis dipstick manually resulted (05/03/2025 9:11 AM EDT) Color, UA Yellow Clarity, UA Clear Glucose, UA Negative Negative - 1999(110) ++++ mg/dL Bilirubin, UA Negative Negative - 4(70) +++ mg/dL Ketones, UA Negative Negative - 160(16) ++++ mg/dL Spec Grav, UA 1.015 1 - 1.03 Blood, UA Positive Negative - 50 Warren/mcL Comment:small pH, UA 7.0 5 - 9 Protein, UA Negative Negative - 2000(20) ++++ mg/dL Urobilinogen, UA 0.2 0.2 - 12 mg/dL Leukocytes, UA Positive Negative - 500+++ Malick/mcL Comment:small Nitrite, UA Negative Negative - Positive Urine 05/03/2025 9:11 AM EDT Christy MCKOY POINT OF CARE TEST ENTER/EDIT OR DERABLES Final Result documented in this encounter Visit Diagnoses Diagnosis Gestational diabetes mellitus (GDM), antepartum, gestational diabetes method of control unspecified (HHS-HCC)- Primary Third trimester ([facility]) state, incidental 32 weeks gestation of ([facility]) Conceived by in vitro fertilization Factor 5 Leiden mutation, heterozygous ([facility]) Insulin controlled gestational diabetes mellitus (GDM) during , antepartum ([facility]) size inconsistent with dates ([facility]) Insulin controlled gestational diabetes mellitus (GDM) during , antepartum ([facility]) Gestational diabetes mellitus (GDM), antepartum, gestational diabetes method of control unspecified ([facility]) documented in this encounter Additional Health Concerns Active Problems Noted Date Diagnosed Date OB Reminders 11/26/2024 documented as of this encounter
--- OUTSIDE RECORDS SUMMARY | 2025-05-10 08:00 | XMS_ITS | Encounter Summary ---
Author Organization [facility] Address [address] [place] [address] Care Team Providers Care Vocational School Teacher Name Role Phone Unavailable Primary Care Provider Unavailabl e Encounter Details Date Type Department Care Team (Latest Contact Info) Description 05/10/2025 8:00 AM EDT Ancillary Procedure [facility] BCP OB [address] [place] [address] Insulin controlled gestational diabetes mellitus (GDM) during , antepartum ([facility]); Gestational diabetes mellitus (GDM), antepartum, gestational diabetes method of control unspecified ([facility]) Social History Tobacco Use Types Packs/Day Years [...] 8:50 AM EDT Routine [facility]OM[facility] BCP OB [place] [address] Christy Schwartz PA [address] [place] [address] 05/30/2025 8:30 AM EDT Routine [facility] BCP OB [address] [place] [address] Cain Donaldson DO [address] [place] [address] [place] [address] 06/06/2025 8:40 AM EDT Routine [facility] BCP OB [address] [place] [address] [place] [phone] Christy Schwartz PA [address] [place] [address] [address] [place], [place] [id number] 06/13/2025 8:30 AM EDT Routine [facility] BCP OB [address] [place] [address] [place] [address] Christy Schwartz PA [address] [place] [address] [place], [place] [id number] documented as of this encounter Goals Goal [...] gestational diabetes mellitus (GDM) during , antepartum ([facility]) Gestational diabetes mellitus (GDM), antepartum, gestational diabetes method of control unspecified ([facility]) documented in this encounter Additional Health Concerns Active Problems Noted Date Diagnosed Date OB Reminders 11/26/2024 documented as of this encounter
--- OUTSIDE RECORDS SUMMARY | 2025-05-16 08:30 | XMS_ITS | Encounter Summary ---
Author Organization [facility] Address [address] [facility] [place] [address] Care Team Providers Care Accuracy Expert Name Role Phone Unavailable Primary Care Provider Unavailabl e Reason for Visit * Reason Comments Routine Visit Encounter Details Date Type Department Care Team (Latest Contact Info) Description 05/16/2025 8:30 AM EDT Routine [facility] BCP [address] [place] [address] Cain Donaldson, DO [address] [facility] [address]sey [place], [facility] 34 weeks gestation of ([facility]); Third trimester ([facility]); Conceived by in vitro fertilization; Factor 5 Leiden mutation, heterozygous ([facility]); Insulin controlled gestational diabetes mellitus (GDM) during , antepartum ([facility]); Non-recurrent acute serous otitis media of left [...] to check FSBS. Blood Glucose Monitoring Suppl ([employer] Glucometer) w/Device kit 1 kit, Does not [...] nursing note reviewed. Exam conducted with a user interface engineer present. Vitals: Estimated body mass index is 43.71 kg/m² as calculated from the following: Height as of 04/18/25: 5' 2 . Weight as of this encounter: 239 lb. BP: 120/70 No LMP recorded. Patient is . ASSESSMENT & PLAN ICD-10-CM 1. 34 weeks gestation of ([facility]) Z3A.34 POCT urinalysis dipstick manually resulted Urine culture 2. Third trimester ([facility]) Z34.93 POCT urinalysis dipstick manually resulted 3. Conceived by in vitro fertilization Z78.9 Urine culture 4. Factor 5 Leiden mutation, heterozygous ([facility]) D68.51 5. Insulin controlled gestational diabetes mellitus (GDM) during , antepartum ([facility]) O24.414 Patient presents today for a routine [...] Routine [facility] BCP OB [address] [place] [address] Christy Schwartz PA [address] [place], [place] [id number] 05/30/2025 8:30 AM EDT Routine [facility] BCP OB [address] [place] [address] [place] [address] Cain Donaldson DO [address] [facility] [address] [place], [place] [id number] 06/06/2025 8:40 AM EDT Routine [facility] BCP OB [address] [place] [address] [place] [address] Christy Schwartz, PA [address] [facility] [address] [place], [place] [id number] 06/13/2025 8:30 AM EDT Routine [facility] OB [address] [place] [address] [place] [address] Christy Schwartz, PA [address] [place] [address] Dr [place], [place] [id number] Scheduled Orders Name Type Priority Associated Diagnoses Orde r Schedule Urine culture Microbiology Routine 34 weeks gestation of ([facility]) Conceived by in vitro fertilization Ordered: 05/16/2025 documented as of this encounter Goals Goal Patient Goal Type Associated Problems Recent Progress Patient-Stated? Author Reminders Care Plan OB Reminders No Open Scheduling, Background documented as of this encounter Procedures Procedure Name Priority Date/Time Associated Diagnosis Comments POCT URINALYSIS DIPSTICK Routine 05/16/2025 8:43 AM EDT 34 weeks gestation of ([facility]) Third trimester ([facility]) documented in this encounter Results * (ABNORMAL) [...] - Positive Urine 05/16/2025 8:43 AM EDT us Cain Donaldson DO POINT OF CARE TEST ENTER/EDIT OR DERABLES Final Result documented in this encounter Visit Diagnoses Diagnosis 34 weeks gestation of ([facility]) Third trimester ([facility]) state, incidental Conceived by in vitro fertilization Factor 5 Leiden mutation, heterozygous ([facility]) Insulin controlled gestational diabetes mellitus (GDM) during , antepartum ([facility]) Non-recurrent acute serous otitis media of left ear documented in this encounter Additional Health Concerns Active Problems Noted Date Diagnosed Date OB Reminders 11/26/2024 documented as of this encounter
--- OUTSIDE RECORDS SUMMARY | 2025-05-19 17:05 | XMS_ITS | Clinical Summary ---
Author Organization [facility] Address [address] [place] [address] Care Team Providers Care Fountain Operator Name Role Phone Unavailable Primary Care Provider Unavailabl e Allergies No known active allergies Medications Alcohol Swabs (Alcohol Prep Pad) 70 % padsIndications: Elevated glucose tolerance test, resulting from in vitro fertilization, antepartum ([facility]) Apply 1 Pad topically Daily Use four times daily to check FSBS. 150 each 3 5 Active Blood Glucose Monitoring Suppl (D-Care Glucometer) w/Device kitIndications:E levated glucose tolerance test, resulting from in vitro fertilization, antepartum ([facility]) 1 kit Daily Use four times daily to check FSBS. In the morning prior to breakfast & 1 hour after each meal for a total of 4times daily. 1 kit 5 12/23/19 26 Active insulin syringe 29G X 1/2 0.5 mL miscIndications: Gestational diabetes mellitus (GDM), antepartum, gestational diabetes method of control unspecified ([facility]) Use 2 syringes in the [...] Encounters Date Type Department Care Team Description 05/17/2025 Clinisync Result Encounter [facility] External Department Unsolicited Belgica Scherer NP 05/16/2025 8:30 AM EDT Routine [facility] [address] [place] [address] Alfredo Donaldson, 34 weeks gestation of (HHS-HCC); Third trimester (HHS-HCC); Conceived by in vitro fertilization; Factor 5 Leiden mutation, heterozygous (HHS-HCC); Insulin controlled gestational diabetes mellitus (GDM) during , antepartum ([facility]); Non-recurrent acute serous otitis media of left ear 05/16/2025 Bamboo flowsheet [facility] [address] [place] [address] Alfreod Dnoaldson DO 05/10/2025 8:00 AM EDT Ancillary Procedure [facility] [address] [place] [address] Insulin controlled gestational diabetes mellitus (GDM) during , antepartum ([facility]); Gestational diabetes mellitus (GDM), antepartum, gestational diabetes method of control unspecified (HHS-HCC) 05/10/2025 Clinisync Result Encounter [facility] External Department Unsolicited Belgica Scherer NP 05/09/2025 Travel 05/04/2025 Clinisync Result Encounter NOMS External Department Unsolicited Belgica Scherer NP 05/03/2025 8:50 AM EDT Routine [facility] [address] [place] [address] Christy Schwartz PA Gestational diabetes mellitus (GDM), antepartum, gestational diabetes method of control unspecified (HHS-HCC) (Primary Dx); Third trimester (HHS-HCC); 32 weeks gestation of (HHS-HCC); Conceived by in vitro fertilization; Factor 5 Leiden mutation, heterozygous (HHS-HCC); Insulin controlled gestational diabetes mellitus (GDM) during , antepartum (HHS-HCC); size inconsistent with dates (HHS-HCC) 05/03/[address] [facility] [address] [place] [address] [place] [address] Christy Schwartz PA 04/27/2025 Clinisync Result Encounter [facility]OMS External Department Unsolicited Belgica Scherer NP 04/26/2025 Travel 04/22/[address] [facility] [address] [place] [address] [place] [address] Alfredo Donaldson, DO 04/19/2025 Results Follow-Up [facility] [address] [place] [address] Mary Thorpe LPN 04/19/2025 Clinisync Result Encounter NOMS External Department Unsolicited Alfredo Donaldson, DO 04/19/2025 Clinisync Result Encounter [facility]OMS External Department Unsolicited Alfredo Donaldson, DO 04/18/2025 10:10 AM EDT Routine [facility] [address] [place] [address] Alfredo Donaldson, DO Third trimester ([facility]); 30 weeks gestation of ([facility]) 04/18/2025 Clinisync Result Encounter [facility]OMS External Department Unsolicited Alfredo Donaldson, DO 04/18/2025 Bamboo flowsheet [facility] [address] [place] [address] Alfredo Donaldson, DO 04/17/2025 Clinisync Result Encounter [facility]OMS External Department Unsolicited Alfredo Donaldson, DO 04/14/[address] [facility] [address] [place] [address] [place] [address] Yue Dumont MA 04/11/2025 Clinisync Result Encounter [facility] External Department Unsolicited Alfredo Donaldson, DO 04/11/2025 Clinisync Result Encounter [facility] External Department Unsolicited Alfredo Donaldson, DO 04/05/2025 Clinisync Result Encounter NOMS External Department Unsolicited Alfredo Donaldson, DO 03/30/2025 8:50 AM EDT Routine [facility] [address] [place] [address] Christy Schwartz PA Second trimester ([facility]); 27 weeks gestation of ([facility]); Gestational diabetes mellitus (GDM), antepartum, gestational diabetes method of control unspecified ([facility]); Factor 5 Leiden mutation, heterozygous ([facility]); Conceived by in vitro fertilization 03/30/2025 Bamboo flowsheet [facility] [address] [place] [address] Christy Schwartz PA 03/30/2025 Travel 03/18/[address] Abstract [facility] [address] [place] [address] Yue Dumont [place] 03/03/2025 8:40 AM EDT Routine [facility] [address] [place] [address] Alfredo Donaldson DO 23 weeks gestation of ([facility]); Second trimester ([facility]); induced hypertension, antepartum ([facility]); Insulin controlled gestational diabetes mellitus (GDM) during , antepartum ([facility]) 03/03/2025 Bamboo flowsheet [facility] [address] [place] [address] Alfredo Donaldson DO 03/02/2025 Travel from Last [...] [facility] [place] [address] Christy Schwartz, PA [address] [place] [address] [place] [address] 05/30/2025 8:30 AM EDT Routine [facility] [address] [place] [phone] Alfredo Donaldson DO [address] [facility] [place] [address] 06/06/2025 8:40 AM EDT Routine [facility] [address] [facility] [place] [phone] Christy Schwartz, PA [address] [place] [address] [place] [address] 06/13/2025 8:30 AM EDT Routine [facility] [address] [place] [address] [place] [address] Christy Schwartz, PA [address] [place] [address] [place] [address] Health Maintenance Due Date Last Done Comments HPV/Cotest 2023 Influenza Vaccine (#1) 2025 08/03/2024, 2022, 10/07/2022 Cervical Cancer Screening 01/21/2028 Pap Smear 01/21/2028 01/20/2025 Goals Goal Patient Goal Type Associated Problems Recent Progress Patient-Stated? Author Reminders Care Plan OB Reminders No Open Scheduling, Background Procedures Procedure Name Priority Date/Time Associated Diagnosis Comments US OB BPP W NON-STRESS 05/17/2025 8:07 AM EDT URINARY TRACT INFECTION (HTRX) Routine 05/16/2025 9:46 AM EDT POCT URINALYSIS DIPSTICK Routine 05/16/2025 8:43 AM EDT 34 weeks gestation of ([facility]) Third trimester ([facility]) US OB BPP W NON-STRESS 05/10/2025 6:23 PM EDT US OB FOLLOW UP TRANSABDOMINAL APPROACH Routine 05/10/2025 8:32 AM EDT Insulin controlled gestational diabetes mellitus (GDM) during , antepartum ([facility]) Gestational diabetes mellitus (GDM), antepartum, gestational diabetes method of control unspecified ([facility]) US OB BPP W NON-STRESS 05/04/2025 7:58 AM EDT POCT URINALYSIS DIPSTICK Routine 05/03/2025 9:11 AM EDT Third trimester ([facility]) US OB BPP W NON-STRESS 04/27/2025 8:07 [...] 04/18/2025 9:05 PM EDT TBH UA (CLEAN/CATCH) SEAT JOINER/MICRO IF IND. Routine 04/18/2025 9:05 PM EDT POCT URINALYSIS DIPSTICK Routine 04/18/2025 10:40 AM EDT Third trimester ([facility]) TBH TOTAL PROTEIN 24 HOUR [...] 9:08 AM EDT 23 weeks gestation of ([facility]) Second trimester ([facility]) PAP SMEAR Routine 01/20/2025 12:00 AM EDT from Last 3 Months or Most Recently Relevant to Health Maintenance Results * US OB BPP W NON-STRESS (05/17/2025 8:07 AM EDT) Only the most recent of7 resultswithin the time period is included. Anatomical Region Laterality Modality Other 05/17/2025 8:07 AM EDT Narrative 05/17/2025 8:[place] [address] Ultrasound Report Signed Patient: KEVIN WHITE MR#: [id number] : 1995 Acct:[id number] Age/Sex: 29 / F ADM Date: 05/16/25 Loc: US Attending Dr: Belgica Scherer Ordering Physician: Belgica Scherer Date of Service: 05/16/25 Procedure(s): US OB BPP w non-stress Accession Number(s): [id number] cc: Belgica Scherer; Alfredo Donaldson D.O. [address] [address] Patient Name: KEVIN WHITE MRN: [id number] date: 1995 Sex: F Assigned Patient Location: US Current Patient Location: Accession/Order Number: [id number] Exam Date: 05/17/2025 08:06 Report Date: 05/17/2025 08:07 At the request of: BELGICA SCHERER Procedure: US OB BPP w non-stress BIOPHYSICAL PROFILE: CLINICAL INFORMATION: GDM COMPARISON: 05/10/2025 There is a single live intrauterine gestation in cephalic presentation. The reported gestational age is 34 weeks 3 days. The heart rate measures 134 beats per minute. FINDINGS: TONE: 1 or [...] greater than 2 cm [Y] 2/2 ZITA: 16.0 cm. This is in normal range. Total score: 06/10 US/US OB BPP w non-stress IMPRESSION: NORMAL BIOPHYSICAL PROFILE Impression dictated by: Justina Munson M.D. 05/17/2025 8:07 AM Dictation Location: [place] [address] Electronically authenticated by: [id number] Y Date: 05/17/2025 08:07 Dictated By: Justina Munson M.D. Signed By: 05/17/25808 DD/ 6 TD/TT: Train Driver: Procedure Note Radiology, Radiologist, - 05/17/2025 [place] [address] Ultrasound Report Signed Patient: KEVIN WHITEMR#: [id number] : 1995Acct:[id number] Age/Sex: 29 / FADM Date: 05/16/25 Loc: US Attending Dr: Belgica Scherer Ordering Physician: Belgica Scherer Date of Service: 05/16/25 Procedure(s): US OB BPP w non-stress Accession Number(s): [id number] cc: Belgica Scherer; Alfredo Donaldson D.O. [address] [place] [address] Patient Name: KEVIN WHITE MRN: [id number] date: 1995 Sex: F Assigned Patient Location: US Current Patient Location: Accession/Order Number: [id number] Exam Date: 05/17/2025 08:06 Report Date: 05/17/2025 08:07 At the request of: BELGICA SCHERER Procedure: US OB BPP w non-stress BIOPHYSICAL PROFILE: CLINICAL INFORMATION: GDM COMPARISON: 05/10/2025 There is a single live intrauterine gestation in cephalic presentation.The reported gestational age is 34 weeks 3 days. The heart ratemeasures 134 beats per minute. FINDINGS: TONE: 1 or [...] greater than 2 cm [Y] 2/2 ZITA: 16.0 cm. This is in normal range. Total score: 06/10 US/US OB BPP w non-stress IMPRESSION: NORMAL BIOPHYSICAL PROFILE Impression dictated by: Justina Munson M.D. 05/17/2025 8:07 AM Dictation Location: [place] [address] Electronically authenticated by: [id number] Y Date: 508:07 Dictated By: Justina Munson M.D. Signed By:05/17/25 0809 DD/ TD/TT: Train Driver: Belgica Scherer TEST ENG [facility] Final Resul t * URINARY TRACT INFECTION (HTRX) (05/16/2025 9:46 AM EDT) ACINETOBACTER BAUMANII 0 19.961 - 24.689 ppm 05/17/2025 7:54 AM EDT [facility] ACINETOBACTER BAUMANII Not Detected 19.961 - 24.689 ppm 05/17/2025 7:54 AM EDT [facility] CITROBACTER FREUNDII 0 23.000 - 32.015 ppm 05/17/2025 7:54 AM EDT [facility] CITROBACTER FREUNDII Not Detected 23.000 - 32.015 ppm 05/17/2025 7:54 AM EDT [facility] ENTEROBACTER AEROGENES, CLOACAE 0 23.000 - 32.290 ppm 05/17/2025 7:54 AM EDT [facility] ENTEROBACTER AEROGENES, CLOACAE Not Detected 23.000 - 32.290 ppm 05/17/2025 7:54 AM EDT [facility] ENTEROCOCCUS FAECALIS, FAECIUM 0 26.000 - 33.043 ppm 05/17/2025 7:54 AM EDT [facility] ENTEROCOCCUS FAECALIS, FAECIUM Not Detected 26.000 - 33.043 ppm 05/17/2025 7:54 AM EDT [facility] ESCHERICHIA COLI 0 23.000 - 28.500 ppm 05/17/2025 7:54 AM EDT [facility] ESCHERICHIA COLI Not Detected 23.000 - 28.500 ppm 05/17/2025 7:54 AM EDT [facility] KLEBSIELLA PNEUMONIAE, OXYTOCA 0 23.000 - 31.865 ppm 05/17/2025 7:54 AM EDT [facility] KLEBSIELLA PNEUMONIAE, OXYTOCA Not Detected 23.000 - 31.865 ppm 05/17/2025 7:54 AM EDT [facility] MORGANELLA MORGANII 0 19.961 - 24.689 ppm 05/17/2025 7:54 AM EDT [facility] MORGANELLA MORGANII Not Detected 19.961 - 24.689 ppm 05/17/2025 7:54 AM EDT [facility] PROTEUS MIRABILIS, VULGARIS 0 23.000 - 28.500 ppm 05/17/2025 7:54 AM EDT [facility] PROTEUS MIRABILIS, VULGARIS Not Detected 23.000 - 28.500 ppm 05/17/2025 7:54 AM EDT [facility] PSEUDOMONAS AERUGINOSA 0 23.000 - 31.801 ppm 05/17/2025 7:54 AM EDT [facility] PSEUDOMONAS AERUGINOSA Not Detected 23.000 - 31.801 ppm 05/17/2025 7:54 AM EDT [facility] STAPHYLOCOCCUS AUREUS 0 26.000 - 31.595 ppm 05/17/2025 7:54 AM EDT [facility] STAPHYLOCOCCUS AUREUS Not Detected 26.000 - 31.595 ppm 05/17/2025 7:54 AM EDT [facility] STREPTOCOCCUS AGALACTIAE (GROUP B STREP) 0 26.000 - 32.435 ppm 05/17/2025 7:54 AM EDT [facility] STREPTOCOCCUS AGALACTIAE (GROUP B STREP) Not Detected 26.000 - 32.435 ppm 05/17/2025 7:54 AM EDT [facility] DEAN ALBICANS, PARAPSILOSIS, TROPICALIS 0 23.000 - 30.347 ppm 05/17/2025 7:54 AM EDT [facility] DEAN ALBICANS, PARAPSILOSIS, TROPICALIS Not Detected 23.000 - 30.347 ppm 05/17/2025 7:54 AM EDT [facility] DEAN GLABRATA 0 23.000 - 31.618 ppm 05/17/2025 7:54 AM EDT [facility] DEAN GLABRATA Not Detected 23.000 - 31.618 ppm 05/17/2025 7:54 AM EDT [facility] DEAN KRUSEI 0 23.000 - 30.873 ppm 05/17/2025 7:54 AM EDT [facility] DEAN KRUSEI Not Detected 23.000 - 30.873 ppm 05/17/2025 7:54 AM EDT [facility] SERRATIA MARCESCENS 0 23.000 - 31.581 ppm 05/17/2025 7:54 AM EDT [facility] SERRATIA MARCESCENS Not Detected 23.000 - 31.581 ppm 05/17/2025 7:54 AM EDT [facility] STREPTOCOCCUS PYOGENES (GROUP A STREP) 0 19.961 - 24.689 ppm 05/17/2025 7:54 AM EDT [facility] STREPTOCOCCUS PYOGENES (GROUP A STREP) Not Detected 19.961 - 24.689 ppm 05/17/2025 7:54 AM EDT [facility] STAPHYLOCOCCUS EPIDERMIDIS, HAEMOLYTICUS, LUGDUNENSIS, SAPROPHYTICUS (URINA 0 19.961 - 24.689 ppm 05/17/2025 7:54 AM EDT [facility] STAPHYLOCOCCUS EPIDERMIDIS, HAEMOLYTICUS, LUGDUNENSIS, SAPROPHYTICUS (URINA Not Detected 19.961 - 24.689 ppm 05/17/2025 7:54 AM EDT [facility] STAPHYLOCOCCUS EPIDERMIDIS, HAEMOLYTICUS, LUGDUNENSIS, SAPROPHYTICUS (URINA 0 19.961 - 24.689 ppm 05/17/2025 7:54 AM EDT [facility] STAPHYLOCOCCUS EPIDERMIDIS, HAEMOLYTICUS, LUGDUNENSIS, SAPROPHYTICUS (URINA Not Detected 19.961 - 24.689 ppm 05/17/2025 7:54 AM EDT [facility] Urine 05/16/2025 9:46 AM EDT 05/17/2025 2:09 AM EDT Loudeyezio DO LAB BLOOD ORDERABLES Final Resul t [facility] [address] [place] [id number] * (ABNORMAL) POCT urinalysis dipstick manually resulted [...] - Positive Urine 05/16/2025 8:43 AM EDT Alfredo Mendoza DO POINT OF CARE TEST ENTER/EDIT OR DERABLES Final Result * US OB follow up transabdominal approach [...] BY: Mike Lucero MD us Christy MCKOY IMGeorgina OB US PROCEDURES Final Resul t * US RENAL BI (04/19/2025 8:49 AM EDT) Anatomical Region Laterality Modality Other 04/19/2025 8:49 AM EDT Narrative 04/19/2025 8:52 [place] [address] Ultrasound Report Signed Patient: KEVIN WHITE MR#: [id number] : 1995 Acct:[id number] Age/Sex: 29 / F ADM Date: Loc: [facility] 254- Attending Dr: Alfredo Donaldson D.O. Ordering Physician: Alfredo Donaldson D.O. Date of Service: 04/19/25 Procedure(s): US renal BI Accession Number(s): [id number] cc: Alfredo Donaldson D.O. [address] [address] Patient Name: KEVIN WHITE MRN: [id number] date: 1995 Sex: F Assigned Patient Location: LAB Current Patient Location: Accession/Order Number: [id number] Exam Date: 04/19/2025 08:46 Report Date: 04/19/2025 [...] Munson M.D. 04/19/2025 8:49 AM Dictation Location: [place] [address] Electronically authenticated by: [id number] Y Date: 04/19/2025 08:49 Dictated By: Justina Munson M.D. Signed By: 04/19/25 0852 DD/ 0849 TD/TT: Train Driver: Procedure Note Radiology, Radiologist, MD - 04/19/2025 [place] [address] Ultrasound Report Signed Patient: KEVIN WHITEMR#: [id number] : 1995Acct:[id number] Age/Sex: Date: Loc: [facility] 254-[address]: Alfredo Donaldson D.O. Ordering Physician: Alfredo Donaldson D.O. Date of Service: 04/19/25 Procedure(s): US renal BI Accession Number(s): [id number] cc: Alfredo Donaldson D.O. [address] [place] [id number] Patient Name: KEVIN WHITE MRN: [id number] date: 1995 Sex: F Assigned Patient Location: LAB Current Patient Location: Accession/Order Number: [id number] Exam Date: 04/19/2025 08:46 Report Date: 04/19/2025 [...] Munson M.D. 04/19/2025 8:49 AM Dictation Location: [place] [address] Electronically authenticated by: [id number] Y Date: 508:49 Dictated By: Justina Munson M.D. Signed By:04/19/25 0852 DD/ 0849 TD/TT: Train Driver: us Alfredo Mendoza DO [facility] Final Result * (ABNORMAL) [facility] GLUCOSE BLOOD (04/18/2025 11:43 PM EDT) GLUCOSE 108(H) 74 - 106 mg/dL TBH 04/18/2025 11:4 3 PM EDT 04/19/2025 12:07 AM EDT Narrative CLINISYNC - 04/19/2025 12:15 AM EDT us Alfredo Mendoza DO CLINISYNC Final Result [facility] * (ABNORMAL) TBH CREATININE (04/18/2025 11:43 PM EDT) Only the most recent of2 resultswithin the time period is included. CREATININE 0.44(L) 0.55 - 1.02 mg/dL TB TB EGFR-AF BOLIVIAN >60 >=60 mL/min/1.7 3m 2 TBH TBH EGFR-NON AF BOLIVIAN >60 >=60 mL/min/1.7 3m 2 TBH 04/18/2025 11:4 3 PM EDT 04/19/2025 12:48 AM EDT Narrative CLINISYNC - 04/19/2025 12:56 AM EDT Alfredo Mendoza DO CLINISYNC Final Result [facility] * (ABNORMAL) ALL CBC WITH AUTO [...] EDT Alfredo Mendoza DO CLINISYNC Final Result [facility] * ALL BUN (04/18/2025 11:43 PM EDT) Only the most recent of2 resultswithin the time period is included. BLOOD UREA NITROGEN 13.0 7.0 - 18.0 mg/dL TBH 04/18/2025 11:4 3 PM EDT 04/18/2025 11:53 PM EDT [facility] CLINISYNC - 04/19/2025 12:04 AM EDT Alfredo Mendoza DO CLINISYNC Final Result [facility] * (ABNORMAL) TBH URINE MICROSCOPIC ONLY [...] CLINISYNC [facility] * (ABNORMAL) TBH UA (CLEAN/CATCH) SEAT JOINER/MICRO IF IND. (04/18/2025 9:05 PM EDT) COLOR [...] DO CLINISYNC Final Result Performing Organization Address [facility]/ZIP Co de Phone Number [facility]NC [facility] * [facility] CREATININE URINE (04/18/2025 9:05 PM EDT) CREATININE URINE RANDOM 84.16 20.00 - 300.00 mg/dL [facility] 04/18/2025 9:05 PM EDT 04/18/2025 10:44 PM EDT Narrative CLINISYNC - 04/18/2025 10:51 PM EDT Alfredo Mendoza DO CLINISYNC Final Result [facility] * (ABNORMAL) TBH TOTAL PROTEIN 24 HOUR URINE (04/17/2025 10:30 AM EDT) TOTAL PROTEIN URINE RANDOM 9.5 <=11.9 mg/dL TBH TOTAL VOLUME 24 HOUR URINE 3,000 mL/24hr TBH TBH TOTAL PROTEIN 24 HOUR URINE 285.0(H) <=149.1 mg/24hr TBH 04/17/2025 10:3 0 AM EDT 04/18/2025 10:26 AM EDT Narrative CLINISYNC - 04/18/2025 10:45 AM EDT Loudeyezio DO CLINISYNC Final Result Performing Organization Address [facility] Co de Phone Number [facility] * SRMCOH PROTHROMBIN TIME INR W/O COUM (04/11/2025 4:52 PM EDT) PROTHROMBIN TIME 9.9 9.0 - 11.6 sec TB TB INR 0.93 TB Comment: DESIRED INR: 2.0-3.0 CONDITIONS NOT LISTED BELOW 2.5-3.5 FOR PROSTHETIC HEART VALVE REPLACEMENT 2.5-3.5 RECURRENT THROMBOSIS 04/11/2025 4:52 PM EDT 04/11/2025 4:56 PM EDT Narrative CLINISYNC - 04/11/2025 5:57 PM EDT Alfredoreyes Veeo DO CLINISYNC Final Result Performing Organization Address City/[facility]/ZIP Co de Phone Number [facility] * (ABNORMAL) [facility] AST (04/11/2025 4:52 PM EDT) ASPARTATE AMINO TRANSFERASE 11(L) 15 - 37 U/L TB 04/11/2025 4:52 PM EDT 04/11/2025 4:56 PM EDT Narrative CLINISYNC - 04/11/2025 5:52 PM EDT Alfredo Mendoza DO CLINISYNC Final Result Performing Organization Address City/[facility] Co de Phone Number [facility] * [facility] APTT (04/11/2025 4:52 PM EDT) PARTIAL THROMBOPLASTIN TIME 27.3 22.3 - 36.2 sec TB 04/11/2025 4:52 PM EDT 04/11/2025 4:56 PM EDT Narrative CLINISYNC - 04/11/2025 5:57 PM EDT us Alfredo Mendoza DO CLINISYNC Final Result Performing Organization Address [facility] de Phone Number [facility] * ALL URIC ACID (04/11/2025 4:52 PM EDT) URIC ACID 2.8 2.6 - 6.0 mg/dL TB 04/11/2025 4:52 PM EDT 04/11/2025 4:56 PM EDT Narrative CLINISYNC - 04/11/2025 5:52 PM EDT us Alfredo Mendoza DO CLINISYNC Final Result Performing Organization Address [facility] de Phone Number [facility] * ALL LDH (04/11/2025 4:52 PM EDT) LACTATE DEHYDROGENASE 153 81 - 234 U/L TB 04/11/2025 4:52 PM EDT 04/11/2025 4:56 PM EDT Narrative CLINISYNC - 04/11/2025 5:52 PM EDT us Alfredo Mendoza DO CLINISYNC Final Result Performing Organization Address [facility] Co de Phone Number [facility] * Pap Smear (01/20/2025 12:00 AM EDT) Swab Cervical swab / Unknown Mendoza Nurse [facility] LAB CYTOLOGY ORDERABLES Final Result Performing Organization Address [facility]/State/[facility] Co de Phone Number EXTERNAL LAB from Last 3 Months or Most Recently Relevant to Health Maintenance Additional Health Concerns Active Problems Noted Date Diagnosed Date OB Reminders 11/26/2024 Insurance [facility]
--- OUTSIDE RECORDS SUMMARY | 2025-05-19 17:05 | XMS_ITS | Encounter Summary ---
Author Organization [facility] Address [address] [place] [address] Care Team Providers Care Supervisor Beet End Name Role Phone Unavailable Primary Care Provider Unavailabl e Encounter Details Date Type Department Care Team (Late st Contact Info) Description 04/14/2025 Abstract [facility] OB [address] [facility] [place] [address] Yue Dumont MA Social History Tobacco [...] [address] [facility] [place] [address] Christy Schwartz PA [address] [facility] [address] [place], [facility]11 05/30/2025 8:30 AM EDT Routine [facility] OB [address] [facility] [place] [address] Cain Donaldson DO [address] [place] [address] Dr [place], [place] [id number] 06/06/2025 8:40 AM EDT Routine [facility] B[facility] OB [address] [place] [address] [place] [phone] Christy Schwartz PA [address] [place] [address] [place] [address] 06/13/2025 8:30 AM EDT Routine [facility] B[facility] OB [address] [place] [address] [place] [address] Christy Schwartz PA [address] [place] [address] [place], [place] [id number] documented as of this encounter Goals Goal Patient Goal Type Associated Problems Recent Progress Patient-Stated? Author Reminders Care Plan OB Reminders No Open Scheduling, Background documented as of this encounter Visit Diagnoses Not on filedocumented in this encounter Additional Health Concerns Active Problems Noted Date Diagnosed Date OB Reminders 11/26/2024 documented as of this encounter
--- OUTSIDE RECORDS SUMMARY | 2025-05-19 17:05 | XMS_ITS | Encounter Summary ---
Author Organization [facility] Address [address] [place] [address] Care Team Providers Care Software Team Leader Name Role Phone Unavailable Primary Care Provider [...] [address] [facility] [address] Christy Schwartz PA [address] [place] [address] Dr [place], [id number] 05/30/2025 8:30 AM EDT Routine [facility] BCP OB [address] [place] [address] [place] [address] Cain Donaldson, DO [address] [place] [address] Dr Kelsey [place], [facility]11 06/06/2025 8:40 AM EDT Routine [facility] BCP OB [address] [place] [address] [place] [address] Christy Schwartz PA [address] [place] [address] [place] [address] 06/13/2025 8:30 AM EDT Routine [facility] BCP OB [address] [place] [address] [place] [phone] Christy Schwartz, PA [address] [facility] [address] [place], [place] [address]11 documented as of this encounter Goals Goal Patient Goal Type Associated Problems Recent Progress Patient-Stated? Author Reminders Care Plan OB Reminders No Open Scheduling, Background documented as of this encounter Visit Diagnoses Not on filedocumented in this encounter Additional Health Concerns Active Problems Noted Date Diagnosed Date OB Reminders 11/26/2024 documented as of this encounter
--- OUTSIDE RECORDS SUMMARY | 2025-05-19 17:05 | XMS_ITS | Encounter Summary ---
Author Organization [facility] Address [address] [place] [address] Care Team Providers Care Manager Hiv Name Role Phone Unavailable Primary Care Provider Unavailabl e Encounter Details Date Type Department Care Team (Late st Contact Info) Description 04/19/2025 Results Follow-Up [facility] BCP OB [address] [facility] [address] Mary Thorpe LPN [address] [employer] [address] Social History Tobacco Use Types [...] AM EDT Routine [facility] B[facility] OB [address] [place] [place] [phone] Christy Schwartz, PA [address] [facility] [place] [address] 05/30/2025 8:30 AM EDT Routine [facility] BCP OB [address] [place] [phone] Cain Donaldson DO [address] [facility] [place] [address] 06/06/2025 8:40 AM EDT Routine [facility] BCP OB [address] [place] [address] [place] [address] Christy Schwartz, PA [address] [facility] [place] [address] 06/13/2025 8:30 AM EDT Routine [facility] BCP OB [address] [place] [address] Christy Schwartz, PA [address] [facility] [place] [address] documented as of this encounter Goals Goal Patient Goal Type Associated Problems Recent Progress Patient-Stated? Author Reminders Care Plan OB Reminders No Open Scheduling, Background documented as of this encounter Visit Diagnoses Not on filedocumented in this encounter Additional Health Concerns Active Problems Noted Date Diagnosed Date OB Reminders 11/26/2024 documented as of this encounter
--- OUTSIDE RECORDS SUMMARY | 2025-05-19 17:05 | XMS_ITS | Encounter Summary ---
Author Organization [facility] Address [address] [place] [address] Care Team Providers Care Deputy Sheriff Court Services Name Role Phone Unavailable Primary Care Provider Unavailabl e Encounter Details Date Type Department Care Team (Late st Contact Info) Description 03/18/2025 Abstract [facility] OB [address] [facility] [place] [address] Yue Dumont MA Social History Tobacco [...] AM EDT Routine [facility] BCP OB [address] [place] [address] Christy Schwartz PA [address] [facility] [address] [place], [facility]11 05/30/2025 8:30 AM EDT Routine [facility] OB [address] [facility] [address] Cain Donaldson DO [address] [facility] [address] [place], [place] [address] 06/06/2025 8:40 AM EDT Routine [facility] BCP OB [address] [place] [address] [place] [phone] Christy Schwartz PA [address] [place] [address] [place] [address] 06/13/2025 8:30 AM EDT Routine [facility] BCP OB [address] [place] [address] [place] [address] Christy Schwartz PA [address] [place] [address] Dr [place], [place] [id number] documented as of this encounter Goals Goal Patient Goal Type Associated Problems Recent Progress Patient-Stated? Author Reminders Care Plan OB Reminders No Open Scheduling, Background documented as of this encounter Visit Diagnoses Not on filedocumented in this encounter Additional Health Concerns Active Problems Noted Date Diagnosed Date OB Reminders 11/26/2024 documented as of this encounter
--- OUTSIDE RECORDS SUMMARY | 2025-05-19 17:05 | XMS_ITS | Clinical Summary ---
Author Organization [facility] Address [address] [facility], [address] [place] [address] Care Team Providers Care Major Account Representative Name Role Phone Unavailable Primary Care Provider Unavailabl e Social History Tobacco Use Types Packs/Day Years [...] (without or with Pap) 2023 COVID-19 Vaccine (2023-2 5 season) 2024 Flu vaccine (#1) 06/03/2025 09/08/2023 HIV screen Completed 12/23/2024, 01/11/2021 Hepatitis [...] Procedure Name Priority Date/Time Associated Diagnosis Comments HIV SCREEN Routine 12/23/2024 6:10 PM EST HEPATITIS C ANTIBODY Routine 12/23/2024 6:10 PM EST from Last 3 Months or Most Recently Relevant to Health Maintenance Results * Hepatitis C Antibody (12/23/2024 6:10 PM EST) Hepatitis C Ab NONREACTIVE NONREACTIVE 12/23/19 6:10 PM EST [employer] Comment: The hepatitis C procedure used in [...] 6:10 PM EST 12/23/2024 6:12 PM EST Result [facility] Cain Donaldson MD IMMUNOLOGY ORDERABLES Fin al Result [facility] [address] [place] [address], [facility] [phone] [place] [id number] [place] [address], [facility] [phone] * HIV Screen (12/23/2024 6:10 PM EST) HIV Ag/Ab NONREACTIVE NONREACTIVE 12/23/2024 6:10 PM EST [employer] Comment: No laboratory evidence of HIV infection. If acute HIV infection is suspected, consider testing for HIV-1 RNA. 12/23/2024 6:10 PM EST 12/23/2024 6:12 PM EST Cain Donaldson MD IMMUNOLOGY ORDERABLES Fin al Result [facility] [address] [place] [address], [facility] [phone] [facility] [address] [place] [address], [facility] [phone] from Last 3 Months or Most Recently Relevant to Health Maintenance Insurance [employer]
--- OUTSIDE RECORDS SUMMARY | 2025-05-19 17:05 | XMS_ITS | Encounter Summary ---
Author Organization [facility] Address [address] [place] [address] Care Team Providers Care Leading Firefighter Name Role Phone Unavailable Primary Care Provider Unavailabl e Encounter Details Date Type Department Care Team (Late Contact Info) Description 05/10/2025 Clinisync Result Encounter [facility] External Department Unsolicited George Scherer, LEEANN [address] [facility] [place] [address] Social History Tobacco Use Types Packs/Day [...] AM EDT Routine [facility] OB [address] [facility] [place] [address] Christy Schwartz PA [address] [place] [place], [facility]11 05/30/2025 8:30 AM EDT Routine [facility] BCP OB [address] [facility] [place] [place] [address] Cain Donaldson DO [address] [place] [address] 06/06/2025 8:40 AM EDT Routine [facility] BCP OB [address] [place] [address] [place] [address] Christy Schwartz PA [address] [place] [address] [place] [address] 06/13/2025 8:30 AM EDT Routine [facility] BCP OB [address] [place] [address] [place] [address] Christy Schwartz PA [address] [facility] [address] [place], [place] [id number] documented as of this encounter Goals Goal [...] EDT Narrative 05/10/2025 6:26 PM EDT The [place] [id number] Ultrasound Report Signed Patient: KEVIN WHITE MR#: [id number] : 1995 Acct:[id number] Age/Sex: 29 / F ADM Date: 05/10/25 Loc: US Attending Dr: George Scherer Ordering Physician: George Scherer Date of Service: 05/10/25 Procedure(s): US OB BPP w non-stress Accession Number(s): [id number] cc: George Scherer; Cain Donaldson D.O. The [address] [id number] Patient Name: KEVIN WHITE MRN: [id number] date: 1995 Sex: F Assigned Patient Location: [facility] Current Patient Location: Accession/Order Number: [id number] Exam Date: 05/10/2025 18:22 Report Date: 05/10/2025 [...] Epperson M.D. 05/10/2025 6:23 PM Dictation Location: [place] [address] Electronically authenticated by: [id number] Y Date: 05/10/2025 18:23 Dictated By: Larry Epperson M.D. Signed By: 05/10/251825 DD/ 22 TD/TT: Necktie Centralizing Machine Operator: Procedure Note Radiology, Radiologist, MD - 05/10/2025 [place] [address] Ultrasound Report Signed Patient: KEVIN WHITEMR#: [id number] : 1995Acct:[id number] Age/Sex: 29 / FADM Date: 05/10/25 Loc: US Attending Dr: George Scherer Ordering Physician: George Scherer Date of Service: 05/10/25 Procedure(s): US OB BPP w non-stress Accession Number(s): [id number] cc: George Scherer; Cain Donaldson D.O. The [address] [address] Patient Name: KEVIN WHITE MRN: [id number] date: 1995 Sex: F Assigned Patient Location: [facility] Current Patient Location: Accession/Order Number: [id number] Exam Date: 05/10/2025 18:22 Report Date: 05/10/2025 [...] Epperson M.D. 05/10/2025 6:23 PM Dictation Location: [place] [address] Electronically authenticated by: [id number] Y Date: 8:23 Dictated By: Larry Epperson M.D. Signed By:05/10/25 1826 DD/ 22 TD/TT: Necktie Centralizing Machine Operator: George Scherer NP [facility] Final Resul t documented in this encounter Visit Diagnoses Not on filedocumented in this encounter Additional Health Concerns Active Problems Noted Date Diagnosed Date OB Reminders 11/26/2024 documented as of this encounter
--- OUTSIDE RECORDS SUMMARY | 2025-05-19 17:05 | XMS_ITS | Encounter Summary ---
Author Organization [facility] Address [address] [place] [address] Care Team Providers Care Monogram Machine Operator Name Role Phone Unavailable Primary Care Provider Unavailabl e Encounter Details Date Type Department Care Team (Late st Contact Info) Description 05/16/2025 Bamboo flowsheet [facility] BCP OB [address] [place] [address] [place] [address] Cain Donaldson, [address] [place] [address] Dr Kelsey [place], [facility]11 Social History Tobacco Use Types Packs/Day [...] 8:50 AM EDT Routine [facility] BCP OB [address] [place], [place] [address] [address] Christy Schwartz PA [address] [place], [place] [address] 05/30/2025 8:30 AM EDT Routine [facility] BCP OB [address] [place], [place] [address] [address] Cain Donaldson DO [address] [facility] [address] [place], [place] 79[address] 06/06/2025 8:40 AM EDT Routine [facility] BCP OB [address] [place] [address] [place] [address] Christy Schwartz PA [address] [facility] [address] [place], [place] [address] 06/13/2025 8:30 AM EDT Routine [facility] BCP OB [address] [place] [address] [place] [address] Christy Schwartz PA [address] [facility] [address] [place], [place] 807[address] documented as of this encounter Goals Goal Patient Goal Type Associated Problems Recent Progress Patient-Stated? Author Reminders Care Plan OB Reminders No Open Scheduling, Background documented as of this encounter Visit Diagnoses Not on filedocumented in this encounter Additional Health Concerns Active Problems Noted Date Diagnosed Date OB Reminders 11/26/2024 documented as of this encounter
--- OUTSIDE RECORDS SUMMARY | 2025-05-19 17:06 | XMS_ITS | Encounter Summary ---
Author Organization [facility] Address [address] [place] [address] Care Team Providers Care Pit Crane Operator Name Role Phone Unavailable Primary Care Provider Unavailabl e Encounter Details Date Type Department Care Team (Late Contact Info) Description 01/10/2025 Abstract [facility] BCP OB 102 [facility] [place] [address] Cain Donaldson DO [address] [place] [address] Dr Kelsey [place], [facility]11 Social History Tobacco Use Types Packs/Day [...] [facility] [place] [address] Christy Schwartz PA [address] [place] [address] Dr [place], [place] [id number] 05/30/2025 8:30 AM EDT Routine [facility]CP OB 102 [facility] [place] [address] Cain Donaldson DO [address] [facility] [place] [address] 06/06/2025 8:40 AM EDT Routine [facility] BCP OB [address] [place] [address] [place] [address] Christy Schwartz PA [address] [facility] [address] [place], [place] 237[address]11 06/13/2025 8:30 AM EDT Routine [facility] BCP OB [address] [place] [address] [place] [address] Christy Schwartz PA [address] [facility] [address] [place], [place] 672[address]11 documented as of this encounter Goals Goal Patient Goal Type Associated Problems Recent Progress Patient-Stated? Author Reminders Care Plan OB Reminders No Open Scheduling, Background documented as of this encounter Visit Diagnoses Not on filedocumented in this encounter Additional Health Concerns Active Problems Noted Date Diagnosed Date OB Reminders 11/26/2024 documented as of this encounter
--- OUTSIDE RECORDS SUMMARY | 2025-05-19 17:06 | XMS_ITS | Encounter Summary ---
Author Organization [facility] Address [address] [place] [address] Care Team Providers Care Publicity Consultant Name Role Phone Unavailable Primary Care Provider Unavailabl e Encounter Details Date Type Department Care Team (Late Contact Info) Description 01/27/2025 Orders Only [facility] BCP OB [address] [facility] [place] [address] Damaris Lopez LPN [address] [facility] [address] [facility]11 Social History Tobacco Use Types [...] [address] [facility] [place] [address] Christy Schwartz PA [address] [facility] [address] [place], [place] [address] 05/30/2025 8:30 AM EDT Routine [facility] BCP OB [address] [facility] [place] [address] Cain Donaldson DO [address] [facility] [place] [address] 06/06/2025 8:40 AM EDT Routine [facility] BCP OB [address] [place] [address] [place] [address] Christy Schwartz PA [address] [facility] [address] [place], [place] 7589311 06/13/2025 8:30 AM EDT Routine [facility] OB [address] [place] [address] [place] [address] Christy Schwartz PA [address] [facility] [address] [place], [place] 19[address] documented as of this encounter Goals Goal [...]
--- OUTSIDE RECORDS SUMMARY | 2025-05-19 17:06 | XMS_ITS | Encounter Summary ---
Author Organization [facility] Address [address] [place] [address] Care Team Providers Care Delivery Driver Name Role Phone Unavailable Primary Care Provider Unavailabl e Encounter Details Date Type Department Care Team (Late Contact Info) Description 11/26/2024 Abstract [facility] BCP OB [address] [place] [address] Cain Donaldson DO [address] [place] [address] Dr Kelsey [place], [id number] Social History Tobacco Use Types Packs/Day Years [...] AM EDT Routine [facility] BCP OB [address] [place] [address] Christy Schwartz PA [address] [place], [place] [address] [place], [place] [id number] 05/30/2025 8:30 AM EDT Routine [facility] BCP OB [address] [facility] [place] [address] Cain Donaldson DO [address] [facility] [place] [address] 06/06/2025 8:40 AM EDT Routine [facility] BCP OB [address] [place] [address] [place] [address] Christy Schwartz PA [address] [facility] [address] [place], [place] [id number] 06/13/2025 8:30 AM EDT Routine [facility] BCP OB [address] [place] [address] [place] [address] Christy Schwartz PA [address] [facility] [address] [place], [place] [address] documented as of this encounter Goals Goal Patient Goal Type Associated Problems Recent Progress Patient-Stated? Author Reminders Care Plan OB Reminders No Open Scheduling, Background documented as of this encounter Visit Diagnoses Not on filedocumented in this encounter Additional Health Concerns Active Problems Noted Date Diagnosed Date OB Reminders 11/26/2024 documented as of this encounter
--- OUTSIDE RECORDS SUMMARY | 2025-05-19 17:06 | XMS_ITS | Encounter Summary ---
Author Organization [facility] Address [address] [place] [address] Care Team Providers Care Foot Orthopedist Name Role Phone Unavailable Primary Care Provider Unavailabl e Encounter Details Date Type Department Care Team (Late st Contact Info) Description 11/12/2024 Abstract [facility] BCP OB [address] [facility] [place] [address] Cain Donaldson, [address] Kelsey [place], [place] [address] Social History Tobacco Use Types Packs/Day Years [...] [address] [facility] [place] [address] Christy Schwartz PA [address] [place], [place] [address]familia [place], [place] 10[address] 05/30/2025 8:30 AM EDT Routine [facility] BCP OB [address] [place] [address] [place] [address] Cain Donaldson, [address] Kelsey [place], [facility]80 06/06/2025 8:40 AM EDT Routine [facility] BCP OB [address] [place] [address] [place] [address] Christy Schwartz PA [address] [place] [address] [place] [address] 06/13/2025 8:30 AM EDT Routine [facility] BCP OB [address] [place] [address] [place] [phone] Christy Schwartz PA [address] [place] [address] [place] [address] documented as of this encounter Visit Diagnoses Not on filedocumented in this encounter
--- OUTSIDE RECORDS SUMMARY | 2025-05-19 17:06 | XMS_ITS | Encounter Summary ---
Author Organization [facility] Address [address] [place] [address] Care Team Providers Care Head Of It Name Role Phone Unavailable Primary Care Provider Unavailabl e Encounter Details Date Type Department Care Team (Late Contact Info) Description 12/24/2024 Abstract [facility] BCP OB [address] [place] [address] Cain Donaldson DO [address] [place] [address] Dr Kelsey [place], [facility]11 Social History Tobacco Use Types Packs/Day [...] AM EDT Routine [facility] BCP OB [address] [place] [address] Christy Schwartz PA [address] [place] [address] Dr [place], [place] [id number] 05/30/2025 8:30 AM EDT Routine [facility] BCP OB 102 [facility] [place] [address] Cain Donaldson DO [address] [facility] [place] [address] 06/06/2025 8:40 AM EDT Routine [facility] BCP OB [address] [place] [address] [place] [address] Christy Schwartz PA [address] [facility] [address] [place], [place] [address] 06/13/2025 8:30 AM EDT Routine [facility] BCP OB [address] [place] [address] [place] [address] Christy Schwartz PA [address] [facility] [address] [place], [place] 279[address] documented as of this encounter Goals Goal Patient Goal Type Associated Problems Recent Progress Patient-Stated? Author Reminders Care Plan OB Reminders No Open Scheduling, Background documented as of this encounter Visit Diagnoses Not on filedocumented in this encounter Additional Health Concerns Active Problems Noted Date Diagnosed Date OB Reminders 11/26/2024 documented as of this encounter
--- OUTSIDE RECORDS SUMMARY | 2025-05-19 17:06 | XMS_ITS | Encounter Summary ---
Author Organization [facility] Address [address] [place] [address] Care Team Providers Care Human Projectile Name Role Phone Unavailable Primary Care Provider Unavailabl e Encounter Details Date Type Department Care Team (Late Contact Info) Description 05/17/2025 Clinisync Result Encounter [facility] External Department Unsolicited George Scherer, LEEANN [address] [facility] [place] [address] Social History Tobacco Use Types Packs/Day [...] AM EDT Routine [facility] [address] [facility] [place] [address] Christy Schwartz PA [address] [place], [facility]11 05/30/2025 8:30 AM EDT Routine [facility] [address] [facility] [place] [address] Cain Donaldson DO [address] [place] [address] 06/06/2025 8:40 AM EDT Routine [facility] OB [address] [place] [address] [place] [phone] Christy Schwartz PA [address] [facility] [place] [address] 06/13/2025 8:30 AM EDT Routine [facility] OB [address] [place] [address] [place] [phone] Christy Schwartz PA [address] [facility] [address] [place], [place] [id number] documented as of this encounter Goals Goal Patient Goal Type Associated Problems Recent Progress Patient-Stated? Author Reminders Care Plan OB Reminders No Open Scheduling, Background documented as of this encounter Procedures Procedure Name Priority Date/Time Associated Diagnosis Comments US OB BPP W NON-STRESS 05/17/2025 8:07 AM EDT documented in this encounter Results * US OB BPP W NON-STRESS (05/17/2025 8:07 AM EDT) Anatomical Region Laterality Modality Other 05/17/2025 8:07 AM EDT Narrative 05/17/2025 8:09 AM EDT [facility] [place] [id number] Ultrasound Report Signed Patient: KEVIN WHITE MR#: [id number] : 1995 Acct:[id number] Age/Sex: 29 / F ADM Date: 05/16/25 Loc: US Attending Dr: George Scherer Ordering Physician: George Scherer Date of Service: 05/16/25 Procedure(s): US OB BPP w non-stress Accession Number(s): [id number] cc: George Scherer; Cain Donaldson D.O. The [address] [address] Patient Name: KEVIN WHITE MRN: [id number] date: 1995 Sex: F Assigned Patient Location: US Current Patient Location: Accession/Order Number: [id number] Exam Date: 05/17/2025 08:06 Report Date: 05/17/2025 08:07 At the request of: GEORGE SCHERER [...] This is in normal range. Total score: 8/ US/US OB BPP w non-stress IMPRESSION: NORMAL BIOPHYSICAL PROFILE Impression dictated by: Justina Munson M.D. 05/17/2025 8:07 AM Dictation Location: [place] [address] Electronically authenticated by: [id number] Y Date: 05/17/2025 08:07 Dictated By: Justina Munson M.D. Signed By: 05/17/25 0809 DD/ 0807 TD/TT: Medical Librarian: Procedure Note Radiology, Radiologist, MD - 05/17/2025 [place] [address] Ultrasound Report Signed Patient: KEVIN WHITEMR#: [id number] : 1995Acct:[id number] Age/Sex: 29 / FADM Date: 05/16/25 Loc: US Attending Dr: George Scherer Ordering Physician: George Scherer Date of Service: 05/16/25 Procedure(s): US OB BPP w non-stress Accession Number(s): [id number] cc: George Scherer; Cain Donaldson D.O. The [place] [address] Patient Name: KEVIN WHITE MRN: [facility]:[id number] date: 1995 Sex: F Assigned Patient Location: US Current Patient Location: Accession/Order Number: [id number] Exam Date: 05/17/2025 08:06 Report Date: 05/17/2025 08:07 At the request of: GEORGE SCHERER [...] This is in normal range. Total score: 8/8 US/US OB BPP w non-stress IMPRESSION: NORMAL BIOPHYSICAL PROFILE Impression dictated by: Justina Munson M.D. 05/17/2025 8:07 AM Dictation Location: [place] [address] Electronically authenticated by: [id number] Y Date: 508:07 Dictated By: Justina Munson M.D. Signed By:05/17/2509 DD/ 6 TD/TT: Medical Librarian: George Scherer [facility]LED[employer] [facility] Final Resul t documented in this encounter Visit Diagnoses Not on filedocumented in this encounter Additional Health Concerns Active Problems Noted Date Diagnosed Date OB Reminders 11/26/2024 documented as of this encounter
--- OUTSIDE RECORDS SUMMARY | 2025-05-19 17:06 | XMS_ITS | Encounter Summary ---
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 Name Role Phone Unavailable Primary Care Provider Unavailabl e Encounter Details Date Type Department Care Team (Late Contact Info) Description 12/27/2024 Abstract [facility] [address] [facility] [place] [address] Cain Donaldson DO [address] [place] [address] Dr [place], [facility]11 Social History Tobacco Use Types Packs/Day [...] EDT Routine [facility] BCP OB [address] [place] [address] Christy Schwartz PA [address] [place] [address] [place], [place] [id number] 05/30/2025 8:30 AM EDT Routine [facility] [address] [facility] [place] [place] [address] Cain Donaldson DO [address] [facility] [place] [address] 06/06/2025 8:40 AM EDT Routine [facility] OB [address] [place] [address] [place] [phone] Christy Schwartz PA [address] [facility] [address] [place], [place] [id number] 06/13/2025 8:30 AM EDT Routine [facility] OB [address] [place] [address] [place] [phone] Christy Schwartz PA [address] [facility] [address] [place], [place] [id number] documented as of this encounter Goals Goal Patient Goal Type Associated Problems Recent Progress Patient-Stated? Author Reminders Care Plan OB Reminders No Open Scheduling, Background documented as of this encounter Visit Diagnoses Not on filedocumented in this encounter Additional Health Concerns Active Problems Noted Date Diagnosed Date OB Reminders 11/26/2024 documented as of this encounter
[2025-05-19 17:13] VITALS: TEMP 36.5
[2025-05-19 17:14] VITALS: BP 132/68; PULSE 73
--- OUTSIDE RECORDS SUMMARY | 2025-05-20 07:38 | XMS_ITS | CCD ---
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 Name Role Phone Unavailable Primary Care [...] Unavailabl e TAYLOR PENASSICA Nicholas Referring Unavailable JOSE PENA Referring Unavailable MENDOZA, CAIN DAVE Referring Unavailable CHRISTY BURNETT Referring Unavailable MENDOZA, CAIN R Referring Unavailable KENZIE RHODES Attending Unavailable MENDOZA, CAIN R Referring Unavailable LORIAPOLLO Attending Unavailable MENDOZA, CAIN R Referring Unavailable MENDOZA, CAIN R Referring Unavailable JAIDA CHADWICK Attending Unavailable MENDOZA, CAIN R Referring Unavailable LORIAPOLLO Attending Unavailable MENDOZA, CAIN R Referring Unavailable MENDOZA, CAIN R Referring Unavailable LORIAPOLLO Attending Unavailable MENDOZA, CAIN R Referring Unavailable DEVIKA PULIDO Attending Unavailable MENDOZA, CAIN R Referring Unavailable MENDOZA, CAIN Attending Unavailable LEX, CHRISTY Attending Unavailable MENDOZA, CAIN Attending Unavailable LEX, CHRISTY Attending Unavailable MENDOZA, CAIN Attending Unavailable LEX, CHRISTY Attending Unavailable LEX, CHRISTY Referring Unavailable MENDOZA, CAIN Attending Unavailable Aissatou Castillo Attending Unavailable MENDOZA, Cain R Referring Unavailable MENDOZA, Cain R Referring Unavailable MESSI MCKNIGHT Attending Unavail able Medications Current Medications Medication Drug Class(es) Dates Sig (Normalized) Sig (Original) amoxicillin 500 mg oral tablet (3 sources) Penicillin-class Antibacterial Start: 05-16-2025 End: 05-23-2025 take 1 tablet by mouth in the morning, then take 1 tablet by mouth in the evening, then take 1 tablet by mouth at bedtime amoxicillin (Amoxil) 500 MG tablet Indications: Non-recurrent acute serous otitis media of left ear Take 1 tablet (500 mg) by mouth in the morning and 1 tablet (500 mg) in the evening and 1 tablet (500 mg) before bedtime. Do all this for 7 days. 21 tablet 05/16/2025 05/23/2025 Active aspirin 81 mg chewable tablet (20 sources) Platelet Aggregation Inhibitor, Nonsteroidal Anti-inflammatory Drug aspirin 81 mg chewable tablet Chew 1 tablet (81 mg total) and swallow in the morning. Active Blood Glucose Monitoring Suppl (D-Care Glucometer) w/Device kit (20 sources) Start: 12-23-2024 End: 12-23-2025 Blood Glucose Monitoring Suppl (D-Care Glucometer) w/Device kit Indications: Elevated glucose tolerance test , resulting from in vitro fertilization, antepartum ([facility]) 1 kit Daily Use four times [...] , resulting from in vitro fertilization, antepartum ([facility]) Apply 1 Pad topically Daily Use [...] Documented Date Episodic/Chronic Coagulation and hemorrhagic disorders (9 sources) Heterozygous Factor V Leiden mutation; Translations: [...] , second trimester] Onset: 02-08-2025 Episodic Other complications of (2 sources) size does not accord with dates; Translations: [Uterine size-date discrepancy, unspecified trimester] 05-03-2025 Episodic Other female genital disorders (2 sources) [...] for other screening follow-up] Onset: 10-18-2024 Episodic Otitis media and related conditions (2 sources) Acute non-suppurative otitis media - serous; Translations: [Acute serous otitis media, left ear] 05-16-2025 Episodic Residual codes; unclassified (1 source) Gestation [...] of ] 03-30-2025 Episodic Residual codes; unclassified (6 sources) Conceived by in vitro fertilization; Translations: [Other specified health status] 03-30-2025 Episodic Residual codes; unclassified (2 sources) Gestation period, 30 weeks; Translations: [30 weeks gestation of ] 04-18-2025 Episodic Residual codes; unclassified (1 source) 20 weeks gestation of ; Translations: [20 weeks gestation of ] Onset: 02-08-2025 Episodic Residual codes; unclassified (2 sources) Gestation period, 32 weeks; Translations: [32 weeks gestation of ] 05-03-2025 Episodic Residual codes; unclassified (2 sources) Gestation period, 34 weeks; Translations: [34 weeks gestation of ] 05-16-2025 Episodic Superficial injury; contusion (1 source) Contusion [...] ity US OB BPP W NON-STRESS on 05-17-2025 [place] [address] Ultrasound Report Signed Patient: FANNIE WHITE MR#: [id number] : 1995 Acct:[id number] Age/Sex: 29 / F ADM Date: 05/16/25 Loc: US Attending Dr: George Scherer Ordering Physician: George Scherer Date of Service: 05/16/25 Procedure(s): US OB BPP w non-stress Accession Number(s): [id number] cc: George Scherer; Cain Donaldson D.O. The [place] [address] Patient Name: FANNIE WHITE MRN: [facility]:[id number] date: 1995 Sex: F Assigned Patient Location: US Current Patient Location: Accession/Order Number: [id number] Exam Date: 05/17/2025 08:06 Report Date: 05/17/2025 [...] Munson M.D. 05/17/2025 8:07 AM Dictation Location: [place] [address] Electronically authenticated by: [id number] Y Date: 05/17/2025 08:07 Dictated By: Justina Munson M.D. Signed By: 05/17/25808 DD/ 6 TD/TT: Farm Product Purchaser: [facility] Radiology, Radiologist, MD - 05/17/2025 [place] [address] Ultrasound Report Signed Patient: FANNIE WHITE MR#: [id number] : 1995 Acct:[id number] Age/Sex: 29 / F ADM Date: 05/16/25 Loc: US Attending Dr: George Scherer Ordering Physician: George Scherer Date of Service: 05/16/25 Procedure(s): US OB BPP w non-stress Accession Number(s): [id number] cc: George Scherer; Cain Donaldson D.O. [place] [id number] Patient Name: FANNIE WHITE MRN: [facility]:[id number] date: 1995 Sex: F Assigned Patient Location: Current Patient Location: Accession/Order Number: [id number] Exam Date: 05/17/2025 08:06 Report Date: 05/17/2025 [...] Munson M.D. 05/17/2025 8:07 AM Dictation Location: [place] [address] Electronically authenticated by: [id number] Y Date: 05/17/2025 08:07 Dictated By: Justina Munson M.D. Signed By: 05/17/25 0809 DD/ 6 TD/TT: Farm Product Purchaser: [facility] Radiology Study observation (narrative) [facility] US OB BPP W NON-STRESS Ordered By: Radiologist Radiology on 05-17-2025 [facility] Work Phone: Urinalysis macro (dipstick) panel (U)on 05-16-2025 Bilirubin, UA Negative Negative - 4(70) +++ mg/dL [facility] Blood, UA Positive Negative - 50 Warren/mcL [facility] Comment on above: trace-intact Clarity, UA Clear [facility] Color, UA Yellow [facility] Glucose, UA Negative Negative - 1999(110) ++++ mg/dL [facility] Interpretation and review of laboratory results Abnormal [facility] Ketones, UA Negative Negative - 160(16) ++++ mg/dL [facility] Leukocytes, UA Moderate Negative - 500+++ Malick/mcL [facility] Nitrite, UA Negative Negative - Positive [facility] pH, UA 7 5 - 9 [facility] Protein, UA Negative Negative - 1999(20) ++++ mg/dL [facility] Spec Grav, UA 1.02 1 - 1.03 [facility] Urobilinogen, UA 0.2 0.2 - 12 mg/dL [facility] US OB BPP W NON-STRESS on 05-10-2025 [place] [address] Ultrasound Report Signed Patient: FANNIE WHITE MR#: [id number] : 1995 Acct:[id number] Age/Sex: 29 / F ADM Date: 05/10/25 Loc: US Attending Dr: George Scherer Ordering Physician: George Scherer Date of Service: 05/10/25 Procedure(s): US OB BPP w non-stress Accession Number(s): [id number] cc: George Scherer; Cain Donaldson D.O. [address] [address] Patient Name: FANNIE WHITE MRN: [facility]:[id number] date: 1995 Sex: F Assigned Patient Location: [facility] Current Patient Location: Accession/Order Number: [id number] Exam Date: 05/10/2025 18:22 Report Date: 05/10/2025 [...] Epperson M.D. 05/10/2025 6:23 PM Dictation Location: [place] [address] Electronically authenticated by: [id number] Y Date: 05/10/2025 18:23 Dictated By: Larry Epperson M.D. Signed By: 05/10/251825 DD/ 22 TD/TT: Farm Product Purchaser: [facility] Radiology, Radiologist, MD - 05/10/2025 [place] [address] Ultrasound Report Signed Patient: FANNIE WHITE MR#: [id number] : 1995 Acct:[id number] Age/Sex: 29 / F ADM Date: 05/10/25 Loc: US Attending Dr: George Scherer Ordering Physician: George Scherer Date of Service: 05/10/25 Procedure(s): US OB BPP w non-stress Accession Number(s): [id number] cc: Elijah Scherer Corey D.O. The [address] [address] Patient Name: FANNIE WHITE MRN: [facility]:[id number] date: 1995 Sex: F Assigned Patient Location: [facility] Current Patient Location: Accession/Order Number: [id number] Exam Date: 05/10/2025 18:22 Report Date: 05/10/2025 18:23 At the request of: GEORGE GILMER Procedure: US OB BPP w non-stress Biophysical profile INDICATION: Gestational diabetes COMPARISON: 05/03/2025 FINDINGS: Biophysical profile score 8 out of 8. heart rate 134 beats per minutes. Fetus is cephalic position. ZITA index 12.2 cm. US/US OB BPP w non-stress IMPRESSION: Unremarkable biophysical profile 8 out of 8. Impression dictated by: Larry Epperson M.D. 05/10/2025 6:23 PM Dictation Location: [employer] Electronically authenticated by: [id number] Y Date: 05/10/2025 18:23 Dictated By: Larry Epperson M.D. Signed By: 05/10/251825 DD/ 22 TD/TT: Farm Product Purchaser: [facility] Radiology Study observation (narrative) [facility] US OB BPP W NON-STRESS Ordered By: Radiologist Radiology on 05-10-2025 [facility] Work Phone: OB FOLLOW UP TRANSABDOMIN AL APPROACHon 05-10-2025 US OB FOLLOW UP TRANSABDOMINAL APPROACH FINDINGS: A single, live intrauterine is present [...] BY: ELECTRONICALLY SIGNED BY: Mike Lucero MD Normal Not Available Comment on above: Order Comment: US OB SCAN FOR GROWTH Estimated Date of Delivery: 06/24/25 Gestational Age as of 05/03/2025: 33w3d US OB BPP W NON-STRESS on 05-04-2025 [place] [address] Ultrasound Report Signed Patient: FANNIE WHITE MR#: [id number] : 1995 Acct:[id number] Age/Sex: 29 / F ADM Date: 05/03/25 Loc: US Attending Dr: George Scherer Ordering Physician: George Scherer Date of Service: 05/03/25 Procedure(s): US OB BPP w non-stress Accession Number(s): [id number] cc: George Shcerer; Cain Donaldson D.O. [place] [id number] Patient Name: FANNIE WHITE MRN: [id number]:[id number] date: 1995 Sex: F Assigned Patient Location: Current Patient Location: Accession/Order Number: [id number] Exam Date: 05/04/2025 07:57 Report Date: 05/04/2025 [...] Munson M.D. 05/04/2025 7:58 AM Dictation Location: [place] [address] Electronically authenticated by: [id number] Y Date: 05/04/2025 07:58 Dictated By: Justina Munson M.D. Signed By: 05/04/25 0946 DD/ 0758 TD/TT: Farm Product Purchaser: [facility] Radiology, Radiologist, MD - 05/04/2025 [place] [address] Ultrasound Report Signed Patient: FANNIE WHITE MR#: [id number] : 1995 Acct:[id number] Age/Sex: 29 / F ADM Date: 05/03/25 Loc: US Attending Dr: George Scherer Ordering Physician: George Scherer Date of Service: 05/03/25 Procedure(s): US OB BPP w non-stress Accession Number(s): [id number] cc: George Scherer; Cain oDnaldson D.O. The [place] [id number] Patient Name: FANNIE WHITE MRN: [facility]:[id number] date: 1995 Sex: F Assigned Patient Location: US Current Patient Location: Accession/Order Number: [id number] Exam Date: 05/04/2025 07:57 Report Date: 05/04/2025 [...] Munson M.D. 05/04/2025 7:58 AM Dictation Location: [place] [address] Electronically authenticated by: [id number] Y Date: 05/04/2025 07:58 Dictated By: Justina Munson M.D. Signed By: 05/04/25 0946 DD/ 0758 TD/TT: Farm Product Purchaser: [facility] Radiology Study observation (narrative) [facility] US OB BPP W NON-STRESS Ordered By: Radiologist Radiology on 05-04-2025 [facility] Work Phone: Urinalysis macro (dipstick) panel (U)on 05-03-2025 Bilirubin, UA Negative Negative - 4(70) +++ mg/dL [facility] Blood, UA Positive Negative - 50 Warren/mcL [facility] Comment on above: small Clarity, UA Clear [facility] Color, UA Yellow [facility] Glucose, UA Negative Negative - 2000(110) ++++ mg/dL [facility] Interpretation and review of laboratory results Abnormal [facility] Ketones, UA Negative Negative - 160(16) ++++ mg/dL [facility] Leukocytes, UA Positive Negative - 500+++ Malick/mcL [facility] Comment on above: small Nitrite, UA Negative Negative - Positive [facility] pH, UA 7 5 - 9 [facility] Protein, UA Negative Negative - 2000(20) ++++ mg/dL [facility] Spec Grav, UA 1.015 1 - 1.03 [facility] Urobilinogen, UA 0.2 0.2 - 12 mg/dL [facility] US OB BPP W NON-STRESS on 04-27-[address] [address] Ultrasound Report Signed Patient: FANNIE WHITE MR#: [id number] : 1995 Acct:[id number] Age/Sex: 29 / F ADM Date: 04/26/25 Loc: US Attending Dr: George Scherer Ordering Physician: George Scherer Date of Service: 04/26/25 Procedure(s): US OB BPP w non-stress Accession Number(s): [id number] cc: George Scherer; Cain Donaldson D.O. [place] [address] Patient Name: FANNIE WHITE MRN: [id number]:[id number] date: 1995 Sex: F Assigned Patient Location: [facility] Current Patient Location: Accession/Order Number: [id number] Exam Date: 04/27/2025 08:06 Report Date: 04/27/2025 [...] This is in low-normal range. Total score: 8/ US/US OB BPP w non-stress IMPRESSION: NORMAL BIOPHYSICAL PROFILE. Impression dictated by: Justina Munson M.D. 04/27/2025 8:07 AM Dictation Location: [place] [address] Electronically authenticated by: [id number] Y Date: 04/27/2025 08:07 Dictated By: Justina Munson M.D. Signed By: 04/27/2510 DD/ 0807 TD/TT: Farm Product Purchaser: [facility] Radiology, Radiologist, MD - 04/27/2025 [place] [address] Ultrasound Report Signed Patient: FANNIE WHITE MR#: [id number] : 1995 Acct:[id number] Age/Sex: 29 / F ADM Date: 04/26/25 Loc: US Attending Dr: George Scherer Ordering Physician: George Scherer Date of Service: 04/26/25 Procedure(s): US OB BPP w non-stress Accession Number(s): [id number] cc: George Scherer; Cain Donaldson D.O. The [place] [address] Patient Name: FANNIE WHITE MRN: [facility]:[id number] date: 1995 Sex: F Assigned Patient Location: [facility] Current Patient Location: Accession/Order Number: [id number] Exam Date: 04/27/2025 08:06 Report Date: 04/27/2025 [...] NORMAL BIOPHYSICAL PROFILE. Impression dictated by: Justina uMnson M.D. 04/27/2025 8:07 AM Dictation Location: [place] [address] Electronically authenticated by: [id number] Y Date: 04/27/2025 08:07 Dictated By: Justina Munson M.D. Signed By: 04/27/25809 DD/ 6 TD/TT: Farm Product Purchaser: [facility] Radiology Study observation (narrative) [facility] US OB BPP W NON-STRESS Ordered By: Radiologist Radiology on 04-27-2025 [facility] Work Phone: US OB BPP W NON-STRESS on 04-19-2025 [place] [address] Ultrasound Report Signed Patient: FANNIE WHITE MR#: [id number] : 1995 Acct:[id number] Age/Sex: 29 / F ADM Date: Loc: [facility] 254- Attending Dr: Cain Donaldson D.O. Ordering Physician: Cain Donaldson D.O. Date of Service: 04/19/25 Procedure(s): US OB BPP w non-stress Accession Number(s): [id number] cc: Cain Donaldson D.O. [place] [address] Patient Name: FANNIE WHITE MRN: [facility]:[id number] date: 1995 Sex: F Assigned Patient Location: LAB Current Patient Location: Accession/Order Number: [id number] Exam Date: 04/19/2025 09:00 Report Date: 04/19/2025 [...] Munson M.D. 04/19/2025 9:04 AM Dictation Location: [place] [address] Electronically authenticated by: [id number] Y Date: 04/19/2025 09:04 Dictated By: Justina Munson M.D. Signed By: 04/19/25905 DD/ 3 TD/TT: Farm Product Purchaser: [facility] Radiology, Radiologist, - 04/19/2025 [place] [address] Ultrasound Report Signed Patient: FANNIE WHITE MR#: [id number] : 1995 Acct:[id number] Age/Sex: 29 / F ADM Date: Loc: [facility] 254-[address]: Cain Donaldson D.O. Ordering Physician: Cain Donaldson D.O. Date of Service: 04/19/25 Procedure(s): US OB BPP w non-stress Accession Number(s): [id number] cc: Cain Donaldson D.O. The [place] [id number] Patient Name: FANNIE WHITE MRN: [facility]:[id number] date: 1995 Sex: F Assigned Patient Location: LAB Current Patient Location: Accession/Order Number: [id number] Exam Date: 04/19/2025 09:00 Report Date: 04/19/2025 [...] Munson M.D. 04/19/2025 9:04 AM Dictation Location: [place] [address] Electronically authenticated by: [id number] Y Date: 04/19/2025 09:04 Dictated By: Justina Munson M.D. Signed By: 04/19/25905 DD/ 3 TD/TT: Farm Product Purchaser: [facility] Radiology Study observation (narrative) [facility] OB BPP W NON-STRESS Ordered By: Radiologist Radiology on 04-19-2025 [facility] Work Phone: US RENAL BIon 04-19-2025 [place] [address] Ultrasound Report Signed Patient: FANNIE WHITE MR#: [id number] : 1995 Acct:[id number] Age/Sex: 29 / F ADM Date: Loc: [facility] 254-[address]: Cain Donaldson D.O. Ordering Physician: Cain Donaldson D.O. Date of Service: 04/19/25 Procedure(s): US renal BI Accession Number(s): [id number] cc: Cain Donaldson D.O. [place] [id number] Patient Name: FANNIE WHITE MRN: [facility]:[id number] date: 1995 Sex: F Assigned Patient Location: LAB Current Patient Location: Accession/Order Number: [id number] Exam Date: 04/19/2025 08:46 Report Date: 04/19/2025 [...] Munson M.D. 04/19/2025 8:49 AM Dictation Location: [place] [address] Electronically authenticated by: [id number] Y Date: 04/19/2025 08:49 Dictated By: Justina Munson M.D. Signed By: 04/19/25 0852 DD/ 0849 TD/TT: Farm Product Purchaser: [facility] Radiology, Radiologist, MD - 04/19/2025 [place] [address] Ultrasound Report Signed Patient: FANNIE WHITE MR#: [id number] : 1995 Acct:[id number] Age/Sex: 29 / F ADM Date: Loc: [facility] 254- Attending Dr: Cain Donaldson D.O. Ordering Physician: Cain Donaldson D.O. Date of Service: 04/19/25 Procedure(s): US renal BI Accession Number(s): [id number] cc: Cain Donaldson D.O. The [place] [address] Patient Name: FANNIE WHITE MRN: [facility]:[id number] date: 1995 Sex: F Assigned Patient Location: LAB Current Patient Location: Accession/Order Number: [id number] Exam Date: 04/19/2025 08:46 Report Date: 04/19/2025 [...] Munson M.D. 04/19/2025 8:49 AM Dictation Location: [place] [address] Electronically authenticated by: [id number] Y Date: 04/19/2025 08:49 Dictated By: Justina Munson M.D. Signed By: 04/19/25 0852 DD/ 0849 TD/TT: Farm Product Purchaser: [facility] Radiology Study observation (narrative) [facility] RENAL BIOrdered By: [place] [facility] on 04-19-2025 [facility] Work Phone: TB TOTAL PROTEIN 24 HOUR UR INEon 04-18-2025 Interpretation and review of laboratory results Abnormal [facility] Protein (U) [Mass/Vol] 9.5 mg/dL NINF - 11.9 mg/dL [facility] TBH TOTAL PROTEIN 24 HOUR URINE 285 High NINF [facility] TOTAL VOLUME 24 HOUR URINE 3000 mL/24hr [facility] (CLEAN/CATCH) 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 YELLOW YELLOW [facility] GLUCOSE URINE UA Negative NEGATIVE mg/dL [facility] Interpretation and review of laboratory results Abnormal [facility] Ketones Ql (U) Negative NEGATIVE mg/dL [facility] Leukocyte esterase Test strip Ql (U) SMALL Abnormal NEGATIVE [facility] NITRITE URINE Negative NEGATIVE [facility] pH (U) 6.0 [pH] 5.0 - 9.0 [facility] PROTEIN URINE Negative NEG/TRACE mg/dL [facility] SPECIFIC GRAVITY URINE 1.020 1.005 - 1.025 [facility] URINE MICROSCOPIC INDICATED YES [facility] UROBILINOGEN URINE 0.2 EU/dL 0.2 - 1.0 EU/dL N [facility] Urinalysis macro (dipstick) panel (U)on 04-18-2025 Bilirubin, UA Negative Negative - 4(70) +++ mg/dL [facility] Blood, UA Negative Negative - 50 Warren/mcL [facility] Clarity, UA Clear [facility] Color, UA Yellow [facility] Glucose, UA Negative Negative - 1999(110) ++++ mg/dL [facility] Interpretation and review of laboratory results Normal [facility] Ketones, UA Negative Negative - 160(16) ++++ mg/dL [facility] Leukocytes, UA Positive Negative - 500+++ Malick/mcL [facility] Comment on above: small Nitrite, UA Negative Negative - Positive [facility] pH, UA 7 5 - 9 [facility] Protein, UA Negative Negative - 1999(20) ++++ mg/dL [facility] Spec Grav, UA 1.01 1 - 1.03 [facility] Urobilinogen, UA 0.2 0.2 - 12 mg/dL [facility] ALL BUNon 04-11-2025 Urea nitrogen [Mass/Vol] 11 mg/dL 7.0 - 18.0 mg/dL [facility] ALL CBC WITH AUTO DIFFon BASOPHILS ABSOLUTE AUTO 0 [facility] Basophils/100 WBC (Bld) 0.3 % 0.2 - 2.0 % [facility] Eosinophils/100 WBC (Bld) 1.5 % 0.9 - 7.0 % [facility] Erythrocyte distribution width (RBC) [Ratio] 13.4 % 11.0 - 15.0 % [facility] Hematocrit (Bld) [Volume fraction] 31.7 % Low 36.0 - 48.0 % [facility] Hemoglobin (Bld) [Mass/Vol] 11 g/dL Low 12.0 - 16.0 g/dL [facility] IMMATURE GRANULOCYTES ABS AUTO 0.06 High [facility] Immature granulocytes/100 WBC (Bld) 0.8 % High 0.0 - 0.5 % [facility] Interpretation and review of laboratory results Abnormal [facility] LYMPHOCYTES ABSOLUTE AUTO 1.5 [facility] Lymphocytes/100 WBC (Bld) 20.5 % 20.5 - 60.0 % [facility] MCH (RBC) [Entitic mass] 30.2 pg 26.7 - 34.0 pg [facility] MCHC (RBC) [Mass/Vol] 34.7 g/dL 29.9 - 35.2 g/dL [facility] MCV (RBC) [Entitic vol] 87.1 fL 81.0 - 99.0 fL [facility] MONOCYTES ABSOLUTE AUTO 0.6 [facility] Monocytes/100 WBC (Bld) 7.8 % 1.7 - 12.0 % [facility] NEUTROPHILS ABSOLUTE AUTO 5.1 [facility] Neutrophils/100 WBC (Bld) 69.1 % 43.0 - 75.0 % [facility] Platelet mean volume (Bld) [Entitic vol] 10.6 fL 9.5 - 13.5 fL [facility] TBH EO # 0.1 [facility] TB PLT 193 [facility] RBC 3.64 Low [facility] WBC 7.3 [facility] ALL LDHon 04-11-2025 LDH [Catalytic activity/Vol] 153 U/L 81 - 234 U/L [facility] ALL URIC ACIDon 04-11-2025 Urate [Mass/Vol] 2.8 mg/dL 2.6 - 6.0 mg/dL [facility] 04-11-2025 AST [Catalytic activity/Vol] 11 U/L Low 15 - 37 U/L [facility] No Panel Informationon 04-11 Interpretation and review of laboratory results Abnormal [facility] [place] [facility] CREATININEon 04-11-2025 Creatinine [Mass/Vol] 0.36 mg/dL Low 0.55 - 1.02 mg/dL [facility] GFR/1.73 sq M.predicted CKD-EPI (S/P/Bld) [Vol rate/Area] >60 >=60 mL/min/1.73m 2 [facility] EGFR-NON AF ZIMBABWEAN >60 >=60 mL/min/1.73m 2 [facility] US OB BPP W NON-STRESS on 04-11-2025 [place] [address] Ultrasound Report Signed Patient: FANNIE WHITE MR#: [id number] : 1995 Acct:[id number] Age/Sex: 29 / F ADM Date: 04/11/25 Loc: US Attending Dr: George Scherer Ordering Physician: Cain Donaldson D.O. Date of Service: 04/11/25 Procedure(s): US OB BPP w non-stress Accession Number(s): [id number] cc: Cain Donaldson D.O. [place] [address] Patient Name: FANNIE WHTIE MRN: [facility]:[id number] date: 1995 Sex: F Assigned Patient Location: [facility] Current Patient Location: Accession/Order Number: [id number] Exam Date: 04/11/2025 19:33 Report Date: 04/11/2025 [...] Steen M.D. 04/11/2025 7:34 PM Dictation Location: [facility]-20 Electronically authenticated by: [id number] Y Date: 04/11/2025 19:34 Dictated By: Zion Steen D.O. Signed By: 04/11/251935 DD/ 33 TD/TT: Farm Product Purchaser: [facility] Radiology, Radiologist, - 04/11/2025 [place] [address] Ultrasound Report Signed Patient: FANNIE WHITE MR#: [id number] : 1995 Acct:[id number] Age/Sex: 29 / F ADM Date: 04/11/25 Loc: US Attending Dr: George Scherer Ordering Physician: Cain Donaldson D.O. Date of Service: 04/11/25 Procedure(s): US OB BPP w non-stress Accession Number(s): [id number] cc: Cain Donaldson D.O. [place] [address] Patient Name: FANNIE WHITE MRN: [facility]:[id number] date: 1995 Sex: F Assigned Patient Location: [facility] Current Patient Location: Accession/Order Number: [id number] Exam Date: 04/11/2025 19:33 Report Date: 04/11/2025 [...] Steen M.D. 04/11/2025 7:34 PM Dictation Location: [place] Electronically authenticated by: [id number] Y Date: 04/11/2025 19:34 Dictated By: Zion Steen D.O. Signed By: 04/11/251935 DD/ 33 TD/TT: Farm Product Purchaser: [facility] Radiology Study observation (narrative) [facility] US OB BPP W NON-STRESS Ordered By: Radiologist Radiology on 04-11-2025 [facility] Work Phone: US OB BPP W NON-STRESS on 04-05-2025 [place] [address] Ultrasound Report Signed Patient: FANNIE WHITE MR#: [id number] : 1995 Acct:[id number] Age/Sex: 29 / F ADM Date: 04/05/25 Loc: [facility] 250-[address]: George Scherer Ordering Physician: Cain Donaldson D.O. Date of Service: 04/05/25 Procedure(s): US OB BPP w non-stress Accession Number(s): [id number] cc: Cain Donaldson D.O. [place] [address] Patient Name: FANNIE WHITE MRN: [id number] date: 1995 Sex: F Assigned Patient Location: [facility] Current Patient Location: [facility] Accession/Order Number: [id number] Exam Date: 04/05/2025 17:57 Report Date: 04/05/2025 [...] Steen M.D. 04/05/2025 5:58 PM Dictation Location: [employer] Electronically authenticated by: [id number] Y Date: 04/05/2025 17:58 Dictated By: Zion Steen D.O. 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 Date of Service: 04/05/25 Procedure(s): US OB BPP w non-stress Accession Number(s): [id number] cc: Cain Donaldson D.O. The [place] [address] Patient Name: FANNIE WHITE MRN: [facility]:[id number] date: 1995 Sex: F Assigned Patient Location: [facility] Current Patient Location: [facility] Accession/Order Number: [id number] Exam Date: 04/05/2025 17:57 Report Date: 04/05/2025 [...] Steen M.D. 04/05/2025 5:58 PM Dictation Location: [place] [address] Electronically authenticated by: [id number] Y Date: 04/05/2025 17:58 Dictated By: Zion Steen D.O. 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: [facility] Radiology Study observation (narrative) [facility] US OB BPP W NON-STRESS Ordered By: Radiologist Radiology on 04-05-2025 [facility] Work Phone: Urinalysis macro (dipstick) panel (U)on 03-03-2025 Bilirubin, UA Negative Negative - 4(70) +++ mg/dL [facility] Blood, UA Negative Negative - 50 Warren/mcL [facility] Clarity, UA Clear [facility] Color, UA Yellow [facility] Glucose, UA Negative Negative - 2000(110) ++++ mg/dL [facility] Interpretation and review of laboratory results Abnormal [facility] Ketones, UA Negative Negative - 160(16) ++++ mg/dL [facility] Leukocytes, UA Trace Negative - 500+++ Malick/mcL [facility] Nitrite, UA Negative Negative - Positive [facility] pH, UA 7 5 - 9 [facility] Protein, UA Negative Negative - 2000(20) ++++ mg/dL [facility] Spec Grav, UA 1.015 1 - 1.03 [facility] Urobilinogen, UA 0.2 0.2 - 12 mg/dL [facility] AFP, Maternalon 02-11-2025 Determined by Other Normal [facility] Comment on above: Performed By: #### A AFPM #### [facility] [address] [place] [address] Gas Engineer: Kenneth Krishna MD Due Date SEE NOTE Normal [facility] Comment on above: Result Comment: Resu lts for Estimated Due Date: 06 24 25 Performed By: #### A AFPM #### [facility] [address] [place] [address] Gas Engineer: Kenneth Krishna MD Family History No [facility] Comment on above: Performed By: #### A AFPM #### [facility] [address] [place] [address] Gas Engineer: Kenneth Krishna MD Gestat Age (exact) 20 wks, 4 days Normal [facility] Comment on above: Performed By: #### A AFPM #### [facility] [address] [place] [address] Gas Engineer: Kenneth Krishna MD Ins Req Matern Diab No [facility] Comment on above: Performed By: #### A AFPM #### [facility] [address] [place] [address] Gas Engineer: Kenneth Krishna MD Interpretation Screen Neg [facility] Comment on above: Result Comment: (NOT E) INTERPRETATION: SCREEN NEGATIVE for open spina bifida Neural Tube Defects (NTD) Negative Pre-Test Post-Test Cutoff Neural Tube Defects Risks 1:1030 < 1:93220 1:250 Comments: The risk of an open neural tube defect is less than the screening cut-off. This test was developed and its performance characteristics determined by [facility]. It has not been cleared or approved by the [place] Food and Drug Administration. This test was performed in a CLIA certified laboratory and is intended for clinical purposes. Performed By: #### A AFPM #### [facility] [address] [place] [address] Gas Engineer: Kenneth Krishna MD [age] [facility] Comment on above: Performed By: #### A AFPM #### [facility] [address] [place] [address] Gas Engineer: Kenneth Krishna MD Maternal Race Nonblack [facility] Comment on above: Performed By: #### A AFPM #### [facility] [address] [place] [address] Gas Engineer: Kenneth Krishna MD Maternal Weight 231.0 lbs. [facility] Comment on above: Performed By: #### A AFPM #### [facility] [address] [place] [address] Gas Engineer: Kenneth Krishna MD MoM for AFP 0.85 [facility] Comment on above: Performed By: #### A AFPM #### [facility] [address] [place] [address] Gas Engineer: Kenneth Krishna MD Number of Fetuses [place] Normal [facility] Comment on above: Performed By: #### A AFPM #### [facility] [address] [place] [address] Gas Engineer: Kenneth Krishna MD Patient's AFP 41 ng/mL [facility] Comment on above: Performed By: #### A AFPM #### [facility] [address] [place] [address] Gas Engineer: Kenneth Krishna MD Smoking No [facility] Comment on above: Performed By: #### A AFPM #### [facility] [address] [place] [address] Gas Engineer: Kenneth Krishna MD Specimen See Note [facility] Comment on above: Result Comment: (NOT E) Initial sample Performed By: [facility] [address] [place] [address] Rn Infusion: Jose Joseph MD, PhD CLIA Number: [id number] Performed By: #### A AFPM #### [facility] [address] [place] [address] Gas Engineer: Kenneth Krishna MD Urinalysis macro (dipstick) panel (U)on 01-20-2025 Bilirubin, UA Negative Negative - 4(70) +++ mg/dL [facility] Blood, UA Negative Negative - 50 Warren/mcL [facility] Comment on above: trace Clarity, UA Clear [facility] Color, UA Renita [facility] Glucose, UA Negative Negative - 2000(110) ++++ mg/dL [facility] Interpretation and review of laboratory results Abnormal [facility] Ketones, UA Positive Negative - 160(16) ++++ mg/dL [facility] Leukocytes, UA Trace Negative - 500+++ Malick/mcL [facility] Nitrite, UA Negative Negative - Positive [facility] pH, UA 7 5 - 9 [facility] Protein, UA Trace Negative - 2000(20) ++++ mg/dL [facility] Spec Grav, UA 1.02 1 - 1.03 [facility] Urobilinogen, UA 1.0 0.2 - 12 mg/dL [facility] Cult,Urineon 12-24-2024 Cult,Urine Specimen Description .URINE Culture NO GROWTH Report Status FINAL 12/24/2024 Normal [facility] Comment on above: Performed By: #### U RC #### [place] [address] [place] [address] Gas Engineer: Jason Rodriguez MD [facility] [address] [place], [place] [phone] Gas Engineer: Sherwin Elam MD HIV Ag/Abon 12-24-2024 HIV Ag/Ab Non-Reactive Normal NR [facility] Comment on above: Result Comment: No l aboratory evidence of HIV infection. If acute HIV infection is suspected, consider testing for HIV-1 RNA. Performed By: #### R UBI, HBS, TREP, AHCV, HIVCMB, GLYHGB #### [address] [address] Gas Engineer: Jason Rodriguez MD #### SIDNEY ZENG #### [facility] [address] [place] [address] Gas Engineer: Sherwin Elam MD Hemoglobin A1Con 12-24-2024 Glucose [Mass/Vol] 94 mg/dL Normal [facility] Comment on above: Result Comment: The ADA and AACC recommend providing the estimated average glucose result to permit better patient understanding of their HBA1c result. Performed By: #### R UBI, HBS, TREP, AHCV, HIVCMB, GLYHGB #### [place] [address] [place] [address] Gas Engineer: Jason Rodriguez MD #### CDP, SIDNEY #### [facility] [address] [place], [place] [id number] Gas Engineer: Sherwin Elam MD HbA1c (Bld) [Mass fraction] 4.9 % Normal 4.0-6.0 [facility] Comment on above: Performed By: #### R UBI, HBS, TREP, AHCV, HIVCMB, GLYHGB #### [place] [address] [place], [place] [id number] Gas Engineer: Jason Rodriguez MD #### CDP, SIDNEY #### [facility] [address] [place], [place] [phone] Gas Engineer: Sherwin Elam MD Hep B Surf Agon 12-24-2024 Hep B Surf Ag Non-Reactive Normal NR [facility] Comment on above: Performed By: #### R UBI, HBS, TREP, AHCV, HIVCMB, GLYHGB #### [place] [address] [place], [place] [id number] Gas Engineer: Jason Rodriguez MD #### CDP, SIDNEY #### [facility] [address] [place] [address] Gas Engineer: Sherwin Elam MD Hep C Abon 12-24-2024 Hep C Ab Non-Reactive Normal [facility] Comment on above: Result Comment: The hepatitis [...] UBI, HBS, TREP, AHCV, HIVCMB, GLYHGB #### [address] [id number] Gas Engineer: Jason Rodriguez MD #### CDP, SIDNEY #### [facility] [address] [place] [address] Gas Engineer: Sherwin Elam MD Rubella Ab, IgGon 12-24-2024 Rubella Ab, IgG 78.0 IU/mL Normal [facility] Comment on above: Result Comment: <10 NON REACTIVE Negative for Anti-Rubella IgG >=10 REACTIVE Positive for Anti Rubella IgG The presence of IgG antibody to Rubella virus is an indication of previous exposure either by prior infection or vaccination. Performed By: #### R UBI, HBS, TREP, AHCV, HIVCMB, GLYHGB #### [facility] [place], [place] [phone] Gas Engineer: Jason Rodriguez MD #### SIDNEY ZENG #### [facility] [address] [place] [address] Gas Engineer: Sherwin Elam MD T.pallidum Ab Screenon 12-24 T.pallidum Ab Screen Non-Reactive Normal NR [facility] Comment on above: Result Comment: T. pallidum antibodies are not detected. There is no serological evidence of infection with T. pallidum (early primary syphilis cannot be excluded). Retest in 2-4 weeks if syphilis is clinically suspect. Performed By: #### R UBI, HBS, TREP, AHCV, HIVCMB, GLYHGB #### [facility] [place], [place] [id number] Gas Engineer: Jason Rodriguez MD #### SIDNEY ZENG #### [facility] [address] [place] [address] Gas Engineer: Sherwin Elam MD CBC with Auto Differentialon 12-23-2024 Basophils (Bld) [#/Vol] 0.02 10*3/uL [facility] Basophils/100 WBC (Bld) 0 % 0 - 2 % [facility] Eosinophils (Bld) [#/Vol] 0.13 10*3/uL [facility] Eosinophils/100 WBC (Bld) 2 % 0 - 5 % [facility] Erythrocyte distribution width (RBC) [Ratio] 12.5 % 12.1 - 15.2 % [facility] Hematocrit (Bld) [Volume fraction] 35.9 % Low 36.0 - 46.0 % [facility] Hemoglobin (Bld) [Mass/Vol] 12.5 g/dL 12.0 - 16.0 g/dL [facility] Immature granulocytes (Bld) [#/Vol] 0.02 10*3/uL [facility] Immature granulocytes/100 WBC (Bld) 0 % 0 - 5 % [facility] Interpretation and review of laboratory results Abnormal [facility] Lymphocytes/100 WBC (Bld) 21 % 15 - 40 % [facility] Lymphocytes/100 WBC (Bld) 1.55 % [facility] MCH (RBC) [Entitic mass] 29.6 pg 26.0 - 34.0 pg [facility] MCHC (RBC) [Mass/Vol] 34.8 g/dL 31.0 - 37.0 g/dL [facility] MCV (RBC) [Entitic vol] 84.9 fL 80.0 - 100.0 fL [facility] Monocytes/100 WBC (Bld) 9 % High 4 - 8 % [facility] Monocytes/100 WBC (Bld) 0.65 % [facility] Neutrophils/100 WBC (Bld) 68 % 47 - 75 % [facility] Platelet mean volume (Bld) [Entitic vol] 9.9 fL 6.0 - 12.0 fL [facility] Platelets (Bld) [#/Vol] 238 10*3/uL [facility] RBC (Bld) [#/Vol] 4.23 10*6/uL 4.00 - 5.2 0 m/uL [facility] Segmented neutrophils/100 WBC (Bld) 4.87 % [facility] WBC other (Bld) [#/Vol] 7.2 [facility] CBC with Diffon 12-23-2024 Abs. Basophil 0.02 k/uL Normal 0.00-0.20 [facility] Comment on above: Performed By: #### R UBI, HBS, TREP, AHCV, HIVCMB, GLYHGB #### [facility] [address] [place], [place] [phone] Gas Engineer: Jason Rodriguez MD #### SIDNEY ZENG #### [facility] [address] [place] [phone] Gas Engineer: Sherwin Elam MD Abs.Imm.Granulocyte 0.02 k/uL Normal 0.00-0.30 [facility] Comment on above: Performed By: #### R UBI, HBS, TREP, AHCV, HIVCMB, GLYHGB #### [place] [id number] Gas Engineer: Jason Rodriguez MD #### CDP, SIDNEY #### [facility] [address] [place] [phone] Gas Engineer: Sherwin Elam MD Abs.Neutrophil (Seg) 4.87 k/uL Normal 2.5-7.0 [facility] Comment on above: Performed By: #### R UBI, HBS, TREP, AHCV, HIVCMB, GLYHGB #### [place] [id number] Gas Engineer: Jason Rodriguez MD #### CDP, SIDNEY #### [facility] [address] [place] [address] Gas Engineer: Sherwin Elam MD Basophils/100 WBC (Bld) 0 % Normal 0-2 [facility] Comment on above: Performed By: #### R UBI, HBS, TREP, AHCV, HIVCMB, GLYHGB #### [place] [id number] Gas Engineer: Jason Rodriguez MD #### CDP, SIDNEY #### [facility] [address] [place] [phone] Gas Engineer: Sherwin Elam MD Eosinophils (Bld) [#/Vol] 0.13 10*3/uL Normal 0.00-0.40 [facility] Comment on above: Performed By: #### R UBI, HBS, TREP, AHCV, HIVCMB, GLYHGB #### [place] [address] [place], [place] [address] Gas Engineer: Jason Rodriguez MD #### CDP, SIDNEY #### [facility] [address] [place], [place] [phone] Gas Engineer: Sherwin Elam MD Eosinophils/100 WBC (Bld) 2 % Normal 0-5 [facility] Comment on above: Performed By: #### R UBI, HBS, TREP, AHCV, HIVCMB, GLYHGB #### [address] [address] Gas Engineer: Jason Rodriguez MD #### KARRI, SIDNEY #### [facility] [address] [place] [phone] Gas Engineer: Sherwin Elam MD Erythrocyte distribution width (RBC) [Ratio] 12.5 % Normal 12.1-15.2 [facility] Comment on above: Performed By: #### R UBI, HBS, TREP, AHCV, HIVCMB, GLYHGB #### [address] [address] Gas Engineer: Jason Rodriguez MD #### CDP, SIDNEY #### [facility] [address] [place], [place] [address] Gas Engineer: Sherwin Elam MD Hematocrit (Bld) [Volume fraction] 35.9 % Low 36.0-46.0 [facility] Comment on above: Performed By: #### R UBI, HBS, TREP, AHCV, HIVCMB, GLYHGB #### [address] [address] Gas Engineer: Jason Rodriguez MD #### CDP, SIDNEY #### [facility] [address] [place], [place] [phone] Gas Engineer: Sherwin Elam MD Hemoglobin (Bld) [Mass/Vol] 12.5 g/dL Normal 12.0-16.0 [facility] Comment on above: Performed By: #### R UBI, HBS, TREP, AHCV, HIVCMB, GLYHGB #### [address] [phone] Gas Engineer: Jason Rodriguez MD #### KARRI, SIDNEY #### [facility] [address] [place], [place] [address] Gas Engineer: Sherwin Elam MD Immature granulocytes/100 WBC (Bld) 0 % Normal 0-5 [facility] Comment on above: Performed By: #### R UBI, HBS, TREP, AHCV, HIVCMB, GLYHGB #### [address] [phone] Gas Engineer: Jason Rodriguez MD #### KARRI, SIDNEY #### [facility] [address] [place], [place] [phone] Gas Engineer: Sherwin Elam MD Lymphocytes (Bld) [#/Vol] 1.55 10*3/uL Normal 1.00-4.80 [facility] Comment on above: Performed By: #### R UBI, HBS, TREP, AHCV, HIVCMB, GLYHGB #### [address] [id number] Gas Engineer: Jason Rodriguez MD #### KARRI, SIDNEY #### [facility] [address] [place], [place] [phone] Gas Engineer: Sherwin Elam MD Lymphocytes/100 WBC (Bld) 21 % Normal 15-40 [facility] Comment on above: Performed By: #### R UBI, HBS, TREP, AHCV, HIVCMB, GLYHGB #### [address] [phone] Gas Engineer: Jason Rodriguez MD #### CDP, SIDNEY #### [facility] [address] [place], [place] [phone] Gas Engineer: Sherwin Elam MD MCH (RBC) [Entitic mass] 29.6 pg Normal 26.0-34.0 [facility] Comment on above: Performed By: #### R UBI, HBS, TREP, AHCV, HIVCMB, GLYHGB #### [address] [phone] Gas Engineer: Jason Rodriguez MD #### KARRI, SIDNEY #### [facility] [address] [place] [address] Gas Engineer: Sherwin Elam MD MCHC (RBC) [Mass/Vol] 34.8 g/dL Normal 31.0-37.0 [facility] Comment on above: Performed By: #### R UBI, HBS, TREP, AHCV, HIVCMB, GLYHGB #### [address] [phone] Gas Engineer: Jason Rodriguez MD #### SIDNEY ZENG #### [facility] [address] [place] [address] Gas Engineer: Sherwin Elam MD MCV (RBC) [Entitic vol] 84.9 fL Normal 80.0-100.0 [facility] Comment on above: Performed By: #### R UBI, HBS, TREP, AHCV, HIVCMB, GLYHGB #### [address] [phone] Gas Engineer: Jason Rodriguez MD #### KARRI, SIDNEY #### [facility] [address] [place] [address] Gas Engineer: Sherwin Elam MD Monocytes (Bld) [#/Vol] 0.65 10*3/uL Normal 0.00-1.00 [facility] Comment on above: Performed By: #### R UBI, HBS, TREP, AHCV, HIVCMB, GLYHGB #### [address] [phone] Gas Engineer: Jason Rodriguez MD #### CDP, SIDNEY #### [facility] [address] [place], [place] [address] Gas Engineer: Sherwin Elam MD Monocytes/100 WBC (Bld) 9 % High 4-8 [facility] Comment on above: Performed By: #### R UBI, HBS, TREP, AHCV, HIVCMB, GLYHGB #### [place] [address] Gas Engineer: Jason Rodriguez MD #### KARRI, SIDNEY #### [facility] [address] [place] [address] Gas Engineer: Sherwin Elam MD Neutrophil (Seg) 68 % Normal 47-75 [facility] Comment on above: Performed By: #### R UBI, HBS, TREP, AHCV, HIVCMB, GLYHGB #### [place] [phone] Gas Engineer: Jason Rodriguez MD #### KARRI, SIDNEY #### [facility] [address] [place] [phone] Gas Engineer: Sherwin Elam MD Platelet mean volume (Bld) [Entitic vol] 9.9 fL Normal 6.0-12.0 [facility] Comment on above: Performed By: #### R UBI, HBS, TREP, AHCV, HIVCMB, GLYHGB #### [address] [id number] Gas Engineer: Jason Rodriguez MD #### CDP, SIDNEY #### [facility] [address] [place] [address] Gas Engineer: Sherwin Elam MD Platelets (Bld) [#/Vol] 238 10*3/uL Normal 140-450 [facility] Comment on above: Performed By: #### R UBI, HBS, TREP, AHCV, HIVCMB, GLYHGB #### [address] [address] Gas Engineer: Jason Rodriguez MD #### CDP, SIDNEY #### [facility] [address] [place] [address] Gas Engineer: Sherwin Elam MD RBC (Bld) [#/Vol] 4.23 10*6/uL Normal 4.00-5.20 [facility] Comment on above: Performed By: #### R UBI, HBS, TREP, AHCV, HIVCMB, GLYHGB #### [address] [address] Gas Engineer: Jason Rodriguez MD #### CDP, SIDNEY #### [facility] [address] [place] [address] Gas Engineer: Sherwin Elam MD WBC (Bld) [#/Vol] 7.2 10*3/uL Normal 3.5-11.0 [facility] Comment on above: Performed By: #### R UBI, HBS, TREP, AHCV, HIVCMB, GLYHGB #### [address] [address] Gas Engineer: Jason Rodriguez MD #### CDP, SIDNEY #### [facility] [address] [place] [address] Gas Engineer: Sherwin Elam MD Drug Scr, Abuse, Uron 2024 Amphetamine(s),Ur Negative Normal NEG [facility] Comment on above: Result Comment: Cuto ff: 1000 ng/mL Performed By: #### R UBI, HBS, TREP, AHCV, HIVCMB, GLYHGB #### [address] [address] Gas Engineer: Jason Rodriguez MD #### CDP, SIDNEY #### [facility] [address] [place] [address] Gas Engineer: Sherwin Elam MD Barbiturate(s),Ur Negative Normal NEG [facility] Comment on above: Result Comment: Cuto ff: 200 ng/ml Performed By: #### R UBI, HBS, TREP, AHCV, HIVCMB, GLYHGB #### [address] [address] Gas Engineer: Jason Rodriguez MD #### CDP, SIDNEY #### [facility] [address] [place], [place] [id number] Gas Engineer: Sherwin Elam MD Benzodiazepine(s) Negative Normal NEG [facility] Comment on above: Result Comment: Cuto ff: 200 ng/ml Performed By: #### R UBI, HBS, TREP, AHCV, HIVCMB, GLYHGB #### [address] [address] Gas Engineer: Jason Rodriguez MD #### CDP, SIDNEY #### [facility] [address] [place], [place] [phone] Gas Engineer: Sherwin Elam MD Cannabinoid(s),Ur Negative Normal NEG [facility] Comment on above: Result Comment: Cuto ff: 50 ng/ml Performed By: #### R UBI, HBS, TREP, AHCV, HIVCMB, GLYHGB #### [address] [address] Gas Engineer: Jason Rodriguez MD #### CDP, SIDNEY #### [facility] [address] [place], [place] [phone] Gas Engineer: Sherwin Elam MD Fentanyl, Urine Negative Normal NEG [facility] Comment on above: Result Comment: Cuto ff: 5 ng/ml Performed By: #### R UBI, HBS, TREP, AHCV, HIVCMB, GLYHGB #### [address] [address] [address] Gas Engineer: Jason Rodriguez MD #### CDP, SIDNEY #### [facility] [address] [place] [address] Gas Engineer: Sherwin Elam MD Methadone Ql (U) Negative Normal NEG [facility] Comment on above: Result Comment: Cuto ff: 300 ng/ml Performed By: #### R UBI, HBS, TREP, AHCV, HIVCMB, GLYHGB #### [address] [address] Gas Engineer: Jason Rodriguez MD #### CDP, SIDNEY #### [facility] [address] [place] [address] Gas Engineer: Sherwin Elam MD Opiate(s), Ur Negative Normal NEG [facility] Comment on above: Result Comment: Cuto ff: 300 ng/ml Performed By: #### R UBI, HBS, TREP, AHCV, HIVCMB, GLYHGB #### [address] [address] Gas Engineer: Jason Rodriguez MD #### CDP, SIDNEY #### [facility] [address] [place] [address] Gas Engineer: Sherwin Elam MD Oxycodone, Urine Negative Normal NEG [facility] Comment on above: Result Comment: Cuto ff: 100 ng/ml Performed By: #### R UBI, HBS, TREP, AHCV, HIVCMB, GLYHGB #### [address] [address] Gas Engineer: Jason Rodriguez MD #### CDP, SIDNEY #### [facility] [address] [place] [address] Gas Engineer: Sherwin Elam MD Phencyclidine, Ur Negative Normal NEG [facility] Comment on above: Result Comment: Cuto ff: 25 ng/ml Performed By: #### R UBI, HBS, TREP, AHCV, HIVCMB, GLYHGB #### [facility] [address] [place] [address] Gas Engineer: Jason Rodriguez MD #### CDP, SIDNEY #### [facility] [address] [place] [address] Gas Engineer: Sherwin Elam MD Interpretive Info This method is a screening test to detect only these drug classes as part of a Normal [facility] Comment on above: Result Comment: medi luis workup. Confirmatory testing by another method should be ordered if clinically indicated. Performed By: #### R UBI, HBS, TREP, AHCV, HIVCMB, GLYHGB #### [address] [address] Gas Engineer: Jason Rodriguez MD #### CDP, SIDNEY #### [facility] [address] [place] [address] Gas Engineer: Sherwin Elam MD Drug Scr, Abuse, UrOrdered B y: Janay Vázquez on 12-23-2024 Cocaine Metabolite Negative Normal NEG [facility] Comment on above: Result Comment: Cuto ff: 300 ng/ml Performed By: #### R UBI, HBS, TREP, AHCV, HIVCMB, GLYHGB #### [facility] [address] [place] [address] Gas Engineer: Jason Rodriguez MD #### CDP, SIDNEY #### [facility] [address] [place], [place] [id number] Gas Engineer: Sherwin Elam MD Drug Screen, UrineOrdered By : Janay Vázquez on 12-23-2024 Amphetamine/Methamph etamine Negative [facility] Barbiturates Negative [facility] Benzodiazepines Negative [facility] Ecstasy Negative [facility] Methadone Negative [facility] Opiates Negative [facility] Oxycodone Negative [facility] Phencyclidine Negative [facility] Thc Marijuana, Urine Negative [facility] HIV 1&2 AB/AG Screen (P24 AG )on 12-23-2024 HIV 1&2 AB/AG Non-Reactive [facility] Hemoglobin A1con 12-23-2024 HbA1c (Bld) [Mass fraction] 4.9 % 4.0 - 6.0 % [facility] Hepatitis B surface antigeno n 12-23-2024 Hepatitis B Surface Antigen Non-Reactive [facility] Hepatitis C(HCV) Ab w/ Refle x to PCRon 12-23-2024 HCV Ab Ql (S) Non-Reactive [facility] MHPT CBC WITH DIFFon 025 Basophils/100 WBC (Bld) 0 % 0 - 2 % [facility] Eosinophils/100 WBC (Bld) 2 % 0 - 5 % [facility] Erythrocyte distribution width (RBC) [Ratio] 12.5 % 12.1 - 15.2 % [facility] Hematocrit (Bld) [Volume fraction] 35.9 % Low 36.0 - 46.0 % [facility] Hemoglobin (Bld) [Mass/Vol] 12.5 g/dL 12.0 - 16.0 g/dL [facility] Immature granulocytes/100 WBC (Bld) 0 % 0 - 5 % [facility] Interpretation and review of laboratory results Abnormal [facility] Lymphocytes/100 WBC (Bld) 21 % 15 - 40 % [facility] MCH (RBC) [Entitic mass] 29.6 pg 26.0 - 34.0 pg [facility] MCHC (RBC) [Mass/Vol] 34.8 g/dL 31.0 - 37.0 g/dL [facility] MCV (RBC) [Entitic vol] 84.9 fL 80.0 - 100.0 fL [facility]. BASOPHIL 0.02 [facility] ABS. EOSINOPHIL 0.13 [facility] MHPT ABS. LYMPH 1.55 [facility] MHPT ABS. MONOCYTE 0.65 [facility] MHPT ABS.IMM.GRANULOCYTE 0.02 [facility] MHPT ABS.NEUTROPHIL (SEG) 4.87 [facility] MHPT PLATELET COUNT 238 [facility] MHPT WBC COUNT 7.2 [facility] Monocytes/100 WBC (Bld) 9 % High 4 - 8 % [facility] Platelet mean volume (Bld) [Entitic vol] 9.9 fL 6.0 - 12.0 fL [facility] RBC (Bld) [#/Vol] 4.23 10*6/uL 4.00 - 5.2 0 m/uL [facility] Segmented neutrophils/100 WBC (Bld) 68 % 47 - 75 % [facility] Original Ordering Provider: CAIN ACOSTA [facility], [facility], URon 0 12-23-2024 PT AMPHETAMINE(S),UR Negative NEG [facility] Comment on above: Cutoff: 1000 ng/mL MHPT BARBITURATE(S),UR Negative NEG [facility] Comment on above: Cutoff: 200 ng/ml MHPT BENZODIAZEPINE(S) Negative NEG [facility] Comment on above: Cutoff: 200 ng/ml MHPT CANNABINOID(S),UR Negative NEG [facility] Comment on above: Cutoff: 50 ng/ml MHPT COCAINE METABOLITE Negative NEG [facility] Comment on above: Cutoff: 300 ng/ml MHPT FENTANYL, URINE Negative NEG [facility] Comment on above: Cutoff: 5 ng/ml MHPT INTERPRETIVE INFO This method is a screening test to detect only these drug classes as part of a [facility] Comment on above: medical workup. Conf irmatory testing by another method should be ordered if clinically indicated. MHPT METHADONE Negative NEG [facility] Comment on above: Cutoff: 300 ng/ml PT OPIATE(S), UR Negative NEG [facility] Comment on above: Cutoff: 300 ng/ml MHPT OXYCODONE, URINE Negative NEG [facility] Comment on above: Cutoff: 100 ng/ml MHPT PHENCYCLIDINE, UR Negative NEG [facility] Comment on above: Cutoff: 25 ng/ml Original Ordering Provider: CAIN ACOSTA DO [facility] No Panel Informationon 12-23 [facility] TYPE AND SCREENon 0 12-23-2024 ABO and Rh group Nom (Bld) Blood group B Rh(D) positive [facility] Blood group antibodies identified Nom Negative [facility] Type + Scrnon 12-23 Type + Scrn Negative Normal [facility] Comment on above: Performed By: #### R UBI, HBS, TREP, AHCV, HIVCMB, GLYHGB #### [facility] [employer] [address] [place] [address] Gas Engineer: Jason Rodriguez MD #### CDP, SIDNEY #### [facility] [address] [place] [address] Gas Engineer: Sherwin Elam MD Type and screenon 12-23-2024 Abo/Rh(D) Positive [facility] Urinalysis macro (dipstick) panel (U)on 12-23-2024 Bilirubin, UA Negative Negative - 4(70) +++ mg/dL [facility] Blood, UA Negative Negative - 50 Warren/mcL [facility] Clarity, UA Clear [facility] Color, UA Yellow [facility] Glucose, UA Negative Negative - 2000(110) ++++ mg/dL [facility] Interpretation and review of laboratory results Normal [facility] Ketones, UA Negative Negative - 160(16) ++++ mg/dL [facility] Leukocytes, UA Negative Negative - 500+++ Malick/mcL [facility] Nitrite, UA Negative Negative - Positive [facility] pH, UA 7 5 - 9 [facility] Protein, UA Negative Negative - 2000(20) ++++ mg/dL [facility] Spec Grav, UA 1.02 1 - 1.03 [facility] Urobilinogen, UA 1.0 0.2 - 12 mg/dL [facility] Urine Drug Screenon 12-23-19 25 Amphetamines Ql (U) Negative NEGATIVE [facility] Comment on above: Cutoff: 1000 ng/mL Barbiturates Screen Ql (U) Negative NEGATIVE [facility] Comment on above: Cutoff: 200 ng/ml Benzodiazepines Ql (U) Negative NEGATIVE [facility] Comment on above: Cutoff: 200 ng/ml Cannabinoids Screen Ql (U) Negative NEGATIVE [employer] Comment on above: Cutoff: 50 ng/ml Cocaine Ql (U) Negative NEGATIVE [employer] Comment on above: Cutoff: 300 ng/ml fentaNYL Ql (U) Negative NEGATIVE [facility] [employer] Comment on above: Cutoff: 5 ng/ml Methadone Ql (U) Negative [facility]IVE [facility] [employer] Comment on above: Cutoff: 300 ng/ml Opiates Screen Ql (U) Negative NEGATIVE [employer] Comment on above: Cutoff: 300 ng/ml oxyCODONE Ql (U) Negative NEGATIVE [facility] [employer] Comment on above: Cutoff: 100 ng/ml Phencyclidine Ql (U) Negative NEGATIVE [employer] Comment on above: Cutoff: 25 ng/ml Test Information This method is a screening test to detect only these drug classes as part of a medical workup. Confirmatory testing by another method should be ordered if clinically indicated. [facility] HCG ( test) Ql (U)o n 11-25-2024 Interpretation and review of laboratory results Abnormal [facility] Preg Test, Ur Positive Negative [facility] OB TRANSVAGINALon 025 US OB TRANSVAGINAL TITLE [...] UA Negative Negative - 4(70) +++ mg/dL [facility] Blood, UA Negative Negative - 50 Warren/mcL [facility] Clarity, UA Clear [facility] Color, UA Yellow [facility] Glucose, UA Negative Negative - 1999(110) ++++ mg/dL [facility] Interpretation and review of laboratory results Normal [facility] Ketones, UA Negative Negative - 160(16) ++++ mg/dL [facility] Leukocytes, UA Negative Negative - 500+++ Malick/mcL [facility] Nitrite, UA Negative Negative - Positive [facility] pH, UA 6 5 - 9 [facility] Protein, UA Negative Negative - 1999(20) ++++ mg/dL [facility] Spec Grav, UA 1.02 1 - 1.03 [facility] Urobilinogen, UA 0.2 0.2 - 12 mg/dL [facility] HCG, Quanton 10-20-2024 HCG, Quant 812.4 mIU/mL High <5 [facility] Comment on above: Result Comment: Non-preg premeno <=5 Postmeno <=8 Male <=3 If HCG results do not concur with clinical observations, additional testing to confirm results is recommended. Performed By: #### R UBI, HBS, TREP, AHCV, HIVCMB, GLYHGB #### [facility] [address] [place] [address] Gas Engineer: Jason Rodriguez MD #### CDP, SIDNEY #### [facility] [address] [place] [address] Gas Engineer: Sherwin Elam MD HCG, Quantitative, on 10-20-2024 HCG.beta subunit Qn 812.4 m[IU]/mL High NINF B on [facility] Comment on above: Non-preg premeno <=5 Postmeno <=8 Male <=3 If HCG results do not concur with clinical observations, additional testing to confirm results is recommended. Interpretation and review of laboratory results Abnormal Bon [facility] Bon [facility] HCG, Quanton 10-18-2024 HCG, Quant 293.1 mIU/mL High <5 [facility] Comment on above: Result Comment: Non-preg premeno <=5 Postmeno <=8 Male <=3 If HCG results do not concur with clinical observations, additional testing to confirm results is recommended. Performed By: #### R UBI, HBS, TREP, AHCV, HIVCMB, GLYHGB #### [facility] [address] [place] [address] Gas Engineer: Jason Rodriguez MD #### CDP, SIDNEY #### [facility] [address] [place] [address] Gas Engineer: Sherwin Elam MD HCG, Quantitative, on 10-18-2024 HCG.beta subunit Qn 293.1 m[IU]/mL High NINF B on [facility] Comment on above: Non-preg premeno <=5 Postmeno <=8 Male <=3 If HCG results do not concur with clinical observations, additional testing to confirm results is recommended. Interpretation and review of laboratory results Abnormal [facility] XR knee RT 4V*on 04-06-2024 XR knee RT 4V* [facility] [place] [address] [place] [address] XRay Report Signed Patient: Fannie Mckeon MR#: [id number] : 1995 Acct:[id number] Age/Sex: 28 / F ADM Date: 04/06/24 Loc: [id number] Room: Type: [facility] Attending Dr: Renita MONTOYA Copies to: UMM [...] Justina Munson M.D.04/06/2024 12:42 PM Dictation Location: [place] [address] Transcribed By: [facility] 04/06/24 1242 Dictated By: Justina Munson MD 04/06/24 1240 Signed By: 04/06/24 1242 Normal [facility] Estradiolon 04-15-2022 Estradiol 257.1 pg/mL 27 - 314 pg/mL [email or web address] Comment on above: FEMALES: Normally menstruating Luteal phase 33-298 Follicular phase 27-156 Midcycle phase 48-314 Postmenopausal (untreated) 5-50 Fulvestrant treatment will show an increased estradiol concentration with this methodology. Alternate methodologies are available upon request. No Panel Informationon 04-15 [employer] Progesteroneon 04-15-2022 Progesterone 39.8 ng/mL [employer] Comment on above: FEMALE (healthy): Follicular phase 0.06-0.89 Ovulation phase 0.12-12.00 Luteal phase 1.83-23.90 Postmenopausal <0.13 HCG, Quantitative, on 02-08-2022 hCG Quant <1 <5 mIU/mL [employer] Comment on above: Non-preg premeno <=5 Postmeno <=8 Male <=3 If HCG results do not concur with clinical observations, additional testing to confirm results is recommended. Elevated results not associated with may be found in patients with other diseases such as tumors of the germ cells (testis, ovaries, etc.), bladder, pancreas, stomach, lungs, and liver. [employer] TSHon 02-08-2022 TSH Qn 1.05 m[IU]/L [employer] Estradiolon 01-14-2022 Estradiol 326 pg/mL High 27 - 314 pg/mL [employer] [facility] Comment on above: FEMALES: Normally menstruating Luteal phase 33-298 Follicular phase 27-156 Midcycle phase 48-314 Postmenopausal (untreated) 5-50 Fulvestrant treatment will show an increased estradiol concentration with this methodology. Alternate methodologies are available upon request. Interpretation and review of laboratory results Abnormal [employer] HCG, Quantitative, on 01-14-2022 hCG Quant <1 <5 IU/L [employer] Comment on above: Non-preg premeno <=5 Postmeno <=8 Male <=3 If HCG results do not concur with clinical observations, additional testing to confirm results is recommended. Elevated results not associated with may be found in patients with other diseases such as tumors of the germ cells (testis, ovaries, etc.), bladder, pancreas, stomach, lungs, and liver. [employer] No Panel Informationon 01-14 [employer] Progesteroneon 01-14-2022 Progesterone 47.49 ng/mL [employer] [facility] Comment on above: FEMALE (healthy): Follicular phase 0.06-0.89 Ovulation phase 0.12-12.00 Luteal phase 1.83-23.90 Postmenopausal <0.13 Estradiolon 01-08-2022 Estradiol 251 pg/mL 27 - 314 pg/mL [employer] [facility] Comment on above: FEMALES: Normally menstruating Luteal phase 33-298 Follicular phase 27-156 Midcycle phase 48-314 Postmenopausal (untreated) 5-50 Fulvestrant treatment will show an increased estradiol concentration with this methodology. Alternate methodologies are available upon request. No Panel Informationon 01-08 [employer] Progesteroneon 01-08-2022 Progesterone 50.58 ng/mL [employer] [facility] Comment on above: FEMALE (healthy): Follicular phase 0.06-0.89 Ovulation phase 0.12-12.00 Luteal phase 1.83-23.90 Postmenopausal <0.13 HCG, Quantitative, on 12-10-2021 hCG Quant <1 <5 IU/L [employer] Comment on above: Non-preg premeno <=5 Postmeno <=8 Male <=3 If HCG results do not concur with clinical observations, additional testing to confirm results is recommended. Elevated results not associated with may be found in patients with other diseases such as tumors of the germ cells (testis, ovaries, etc.), bladder, pancreas, stomach, lungs, and liver. [employer] Estradiolon 09-26-2021 Estradiol 434 pg/mL High 27 - 314 pg/mL [employer] [facility] Comment on above: FEMALES: Normally menstruating Luteal phase 33-298 Follicular phase 27-156 Midcycle phase 48-314 Postmenopausal (untreated) 5-50 Fulvestrant treatment will show an increased estradiol concentration with this methodology. Alternate methodologies are available upon request. Interpretation and review of laboratory results Abnormal [employer] HCG, Quantitative, on 09-26-2021 hCG Quant 652 High <5 IU/L [employer] Comment on above: Non-preg premeno <=5 Postmeno <=8 Male <=3 If HCG results do not concur with clinical observations, additional testing to confirm results is recommended. Elevated results not associated with may be found in patients with other diseases such as tumors of the germ cells (testis, ovaries, etc.), bladder, pancreas, stomach, lungs, and liver. Interpretation and review of laboratory results Abnormal [employer] No Panel Informationon 09-26 [employer] Progesteroneon 09-26-2021 Progesterone 45.63 ng/mL [employer] [facility] Comment on above: FEMALE (healthy): Follicular phase 0.06-0.89 Ovulation phase 0.12-12.00 Luteal phase 1.83-23.90 Postmenopausal <0.13 E[employer]iolon 09-17-2021 Estradiol 389 pg/mL High 27 - 314 pg/mL [employer] [facility] Comment on above: FEMALES: Normally menstruating Luteal phase 33-298 Follicular phase 27-156 Midcycle phase 48-314 Postmenopausal (untreated) 5-50 Fulvestrant treatment will show an increased estradiol concentration with this methodology. Alternate methodologies are available upon request. Interpretation and review of laboratory results Abnormal [employer] No Panel Informationon 09-17 [employer] Progesteroneon 09-17-2021 Progesterone 15.02 ng/mL [employer] [facility] Comment on above: FEMALE (healthy): Follicular phase 0.06-0.89 Ovulation phase 0.12-12.00 Luteal phase 1.83-23.90 Postmenopausal <0.13 TSH without ReflexOrdered By : Pedro Luis Dorantes on 06-25-2021 TSH Qn 1.08 m[IU]/L [employer] Work Phone: [employer] Work Phone: HCG, Quantitative, on 02-15-2021 hCG Quant <1 <5 IU/L [employer] Phone: Comment on above: Non-preg premeno <=5 [...] Estradiol 66 pg/mL 27 - 314 pg/mL [employer] Work Phone: Comment on above: FEMALES: Normally menstruating Luteal phase 33-298 Follicular phase 27-156 Midcycle phase 48-314 Postmenopausal (untreated) 5-50 Fulvestrant treatment will show an increased estradiol concentration with this methodology. Alternate methodologies are available upon request. Follicle Stimulating Hormone on 01-12-2021 FSH 5.3 U/L 1.7 - 21.5 U/L [employer] Work Phone: Comment on above: Reference Range: Male: 1.5-12.4 Ovulating Female: Follicular Phase 3.5-12.5 Ovulation Phase 4.7-21.5 Luteal Phase 1.7-7.7 Postmenopausal Female: 25.8-134.8 HIV Screenon 01-12-2021 HIV Ag/Ab NONREACTIVE NONREACTIVE [employer] Phone: Comment on above: No laboratory eviden ce of HIV infection. If acute HIV infection is suspected, consider testing for HIV-1 RNA. Hepatitis B Core Antibody, T otalon 01-12-2021 Hep B Core Total Ab NONREACTIVE NONREACTIVE [employer] Work Phone: Hepatitis B Surface Antigeno n 01-12-2021 Hepatitis B Surface Ag NONREACTIVE NONREACTIVE [employer] Work Phone: Hepatitis C Antibodyon 01-12 Hepatitis C Ab NONREACTIVE NONREACTIVE [employer] [facility] Work Phone: Comment on above: The hepatitis [...] LH 10.8 U/L 1.0 - 95.6 U/L [employer] Work Phone: Comment on above: Reference Range: Male: 1.7-8.6 Ovulating Female: Follicular Phase 2.4-12.6 Ovulation Phase 14.0-95.6 Luteal Phase 1.0-11.4 Postmenopausal Female: 7.7-58.5 Progesteroneon 01-12-2021 Progesterone 0.13 ng/mL [employer] Phone: Comment on above: FEMALE (healthy): Follicular phase 0.06-0.89 Ovulation phase 0.12-12.00 Luteal phase 1.83-23.90 Postmenopausal <0.13 Prolactinon 01-12-2021 Prolactin 7.58 ug/L 4.79 - 23.30 ug/L [employer] Phone: Comment on above: The presence of macr oprolactin may cause interference in female patients with various endocrinological diseases or during . Rubella antibody, IgGon 01-01 Rubella virus IgG Ql (S) 52.4 IU/mL [employer] Phone: Comment on above: REFERENCE RANGE: <5.0 NON-REACTIVE (non-immune) 5.0 TO 9.9 EQUIVOCAL >=10.0 REACTIVE (immune) HCG, Quantitative, on 01-11-2021 hCG Quant <1 <5 IU/L [employer] Phone: Comment on above: Non-preg premeno <=5 [...] without Reflexon 021 TSH Qn 1.08 m[IU]/L [employer] Phone: TYPE AND SCREENon 01-11-2021 ABO/Rh Positive [employer] Phone: Arm Band Number NOT REPORTED Latrice Fitch [employer]alt Work Phone: Expiration Date 01/14/2021,2359 [facility] reyes [facility] Work Phone: Vital Signs Date Time Vital Sign Value Performing Clinician Facility 05-16-2025 08:37-0400 Body mass index (BMI) [Ratio] 43.71 kg/m2 Cain Mendoza DO Work Phone: [facility] 05-16-2025 08:37-0400 Body weight 108.41 kg Cain Mendoza DO Work Phone: [facility] 05-16-2025 08:37-0400 Diastolic blood pressure 70 mm[Hg] Cain Mendoza DO Work Phone: [facility] 05-16-2025 08:37-0400 Systolic blood pressure 120 mm[Hg] Cain Mendoza DO Work Phone: [facility] 05-03-2025 09:06-0400 Body mass index (BMI) [Ratio] 43.99 kg/m2 Christy [place] Qu[place] PA Work Phone: [facility] 05-03-2025 09:06-0400 Body weight 109.09 kg Christy [place] PA Work Phone: [facility] 05-03-2025 09:06-0400 Diastolic blood pressure 86 mm[Hg] Christy [place] PA Work Phone: [facility] 05-03-2025 09:06-0400 Systolic blood pressure 130 mm[Hg] Christy [place] PA Work Phone: [facility] 04-18-2025 10:40-0400 Body mass index (BMI) [Ratio] 43.16 kg/m2 Cain Mendoza DO Work Phone: [facility] 04-18-2025 10:40-0400 Body weight 107.05 kg Cain Mendoza DO Work Phone: [facility] 04-18-2025 10:40-0400 Diastolic blood pressure 72 mm[Hg] Cain Mendoza DO Work Phone: [facility] 04-18-2025 10:40-0400 Systolic blood pressure 120 mm[Hg] Cain Mendoza DO Work Phone: [facility] 04-18-2025 10:34-0400 Body height 157.5 cm Cain Mendoza DO Work Phone: [facility] 03-30-2025 09:26-0400 Body weight 103.87 kg Christy MCKOY Work Phone: [facility] 03-30-2025 09:26-0400 Diastolic blood pressure 80 mm[Hg] Christy MCKOY Work Phone: [facility] 03-30-2025 09:26-0400 Systolic blood pressure 122 mm[Hg] Christy MCKOY Work Phone: [facility] 03-03-2025 09:00-0400 Body weight 105.14 kg Cain Mendoza DO Work Phone: [facility] 03-03-2025 09:00-0400 Diastolic blood pressure 80 mm[Hg] Cain Mendoza DO Work Phone: [facility] 03-03-2025 09:00-0400 Systolic blood pressure 120 mm[Hg] Cain Mendoza DO Work Phone: [facility] 02-08-2025 09:34-0400 Body height 157.5 cm Jaida Chadwick MD Work Phone: [facility] 02-08-2025 09:34-0400 Body mass index (BMI) [Ratio] 42.24 kg/m2 Jaida Chadwick MD Work Phone: [facility] 02-08-2025 09:34-0400 Body weight 104.78 kg Jaida Chadwick MD Work Phone: [facility] 02-08-2025 09:34-0400 Diastolic blood pressure 80 mm[Hg] Jaida Chadwick MD Work Phone: [facility] 02-08-2025 09:34-0400 Heart rate 95 /min Jaida Chadwick MD Work Phone: [facility] 02-08-2025 09:34-0400 Systolic blood pressure 125 mm[Hg] Jaida Chadwick MD Work Phone: [facility] 01-26-2025 14:44-0400 Body height 157.5 cm Apollo Martinez RESOLUTION MANAGER-FLOORMAN Work Phone: [facility] 01-26-2025 14:44-0400 Body mass index (BMI) [Ratio] 41.88 kg/m2 Apollo Martinez RESOLUTION MANAGER-FLOORMAN Work Phone: [facility] 01-26-2025 14:44-0400 Body weight 103.87 kg Apollo Martinez RESOLUTION MANAGER-FLOORMAN Work Phone: [facility] 01-26-2025 14:44-0400 Diastolic blood pressure 60 mm[Hg] Apollo Martinez RESOLUTION MANAGER-FLOORMAN Work Phone: [facility] 01-26-2025 14:44-0400 Heart rate 87 /min Apollo Martinez RESOLUTION MANAGER-FLOORMAN Work Phone: [facility] 01-26-2025 14:44-0400 Systolic blood pressure 115 mm[Hg] Apollo Martinez RESOLUTION MANAGER-FLOORMAN Work Phone: [facility] 01-26-2025 14:25-0400 Body mass index (BMI) [Ratio] 41.87 kg/m2 [facility] 01-26-2025 14:25-0400 Body weight 103.87 kg [facility] 01-20-2025 08:42-0400 Body weight 103.87 kg Christy MCKOY Work Phone: [facility] 01-20-2025 08:42-0400 Diastolic blood pressure 70 mm[Hg] Christy MCKOY Work Phone: [facility] 01-20-2025 08:42-0400 Systolic blood pressure 120 mm[Hg] Christy MCKOY Work Phone: [facility] 12-30-2024 10:57-0500 Body height 157.5 cm Jaida Chadwick MD Work Phone: [facility] 11-25-2024 15:25-0500 Body weight 105.23 kg Noms Nurse [facility] 11-25-2024 15:25-0500 Diastolic blood pressure 72 mm[Hg] [facility]oms Nurse [facility] 11-25-2024 15:25-0500 Systolic blood pressure 124 mm[Hg] Noms Nurse [facility] 04-06-2024 12:06-0400 Body height 157.48 cm PHYSICIAN NO [facility] 04-06-2024 12:06-0400 Body mass index (BMI) [Ratio] 42 kg/m2 PHYSICIAN NO [facility] 04-06-2024 12:06-0400 Body weight 104.32 kg PHYSICIAN NO [facility] 04-06-2024 12:06-0400 Diastolic blood pressure 80 mm[Hg] PHYSICIAN NO [facility] 04-06-2024 12:06-0400 Heart rate 80 /min PHYSICIAN NO [facility] 04-06-2024 12:06-0400 Respiratory rate 20 /min PHYSICIAN NO [facility] 04-06-2024 12:06-0400 SaO2% (BldA) [Mass fraction] 99 % PHYSICIAN NO [facility] 04-06-2024 12:06-0400 Systolic blood pressure 124 mm[Hg] PHYSICIAN NO [facility] Encounters Encounter Date Encounter Type Care Provider Facility Start: 05-27-2025 ambulatory Aissatou Castillo Facility:[facility] Start: 05-19-2025 ambulatory Cain R MENDOZA Facility: [facility] Start: 05-17-2025 End: 05-17-2025 Clinisync Result Encounter George Scherer NP Work Phone: [facility] Unsolicited Start: 05-17-2025 End: 05-17-2025 Clinisync Result Encounter George Scherer NP Work Phone: [facility] External [facility] Unsolicited Start: 05-17-2025 End: 05-17-2025 Telephone encounter Sonya Lomax RN [facility] at [facility] Start: 05-16-2025 End: 05-16-2025 Bamboo flowsheet Cain Mendoza DO Work Phone: [facility] Start: 05-16-2025 End: 05-16-2025 Bamboo flowsheet Cain Mendoza DO Work Phone: [facility] Start: 05-16-2025 End: 05-16-2025 ambulatory CAIN MENDOZA Not Available Start: 05-16-2025 End: 05-16-2025 flow sheet Cain Mendoza DO Work Phone: [facility] Comment on above: 34 weeks gestation o f ([facility]); Third trimester ([facility]); Conceived by in vitro fertilization; Factor 5 Leiden mutation, heterozygous ([facility]); Insulin controlled gestational diabetes mellitus (GDM) during , antepartum ([facility]); Non-recurrent acute serous otitis media of left ear Start: 05-11-2025 End: 05-11-2025 Telephone encounter Belen BRYANT [facility]- [facility] at [facility] Start: 05-10-2025 End: 05-10-2025 Clinisync Result Encounter George Scherer NP Work Phone: [facility] External [facility] Unsolicited Start: 05-10-2025 End: 05-10-2025 Clinisync Result Encounter George Scherer NP Work Phone: [facility] External [facility] Unsolicited Start: 05-10-2025 End: 05-10-2025 ambulatory CHRISTY GAINESEY Not Available Start: 05-04-2025 End: 05-04-2025 Clinisync Result Encounter George Scherer NP Work Phone: [facility] External [facility] Unsolicited Start: 05-04-2025 End: 05-04-2025 Clinisync Result Encounter George Scherer NP Work Phone: [facility] External [facility] Unsolicited Start: 05-03-2025 End: 05-03-2025 Bamboo flowsheet Christy MCKOY Work Phone: [facility] Start: 05-03-2025 End: 05-03-2025 Bamboo flowsheet Christy MCKOY Work Phone: [facility] Start: 05-03-2025 End: 05-03-2025 Telephone encounter Shoshana Orantestrace BRYANT Work Phone: [facility] at [facility] Start: 05-03-2025 End: 05-03-2025 flow sheet Christy MCKOY Work Phone: [facility] Comment on above: size inconsist ent with dates ([facility]) (Primary Dx); Third trimester ([facility]); 32 weeks gestation of ([facility]); Conceived by in vitro fertilization; Factor 5 Leiden mutation, heterozygous ([facility]); Insulin controlled gestational diabetes mellitus (GDM) during , antepartum ([facility]) Start: 05-03-2025 End: 05-03-2025 ambulatory CHRISTY BURNETT Not Available Start: 04-27-2025 ambulatory Aissatou Castillo Facility:[facility] Start: 04-27-2025 End: 04-27-2025 Clinisync Result Encounter George Scherer NP Work Phone: [facility] External Department Unsolicited Start: 04-27-2025 End: 04-27-2025 Clinisync Result Encounter George Scherer NP Work Phone: [facility] External Department Unsolicited Start: 04-25-2025 End: 04-25-2025 Telephone encounter Giselle Cheng CMA [facility] at [facility] Start: 04-25-2025 End: 04-25-2025 ambulatory DEVIKA PULIDO [facility] Start: 04-25-2025 End: 04-25-2025 Office outpatient visit 25 minutes Devika Pulido PA-C Work Phone: [facility] Comment on above: Insulin controlled g estational diabetes mellitus (GDM) in third trimester (Primary Dx) Start: 04-20-2025 End: 04-20-2025 Telephone encounter Aissatou Stoner RN [facility] at [facility] Start: 04-19-2025 End: 04-19-2025 Clinisync Result [...] Comment on above: Third trimester preg selene ([facility]); 30 weeks gestation of ([facility]) Start: 04-17-2025 End: 04-18-2025 Clinisync Result Encounter Cain Mendoza DO Work Phone: [facility] Unsolicited Start: 04-17-2025 End: 04-18-2025 Clinisync Result Encounter Cain Mendoza DO Work Phone: [facility] Unsolicited Start: 04-14-2025 End: 04-14-2025 ambulatory CAIN R [facility] Start: 04-12-2025 End: 04-12-2025 Telephone encounter Sonya Lomax RN [facility] at [facility] Start: 04-11-2025 End: 04-11-2025 ambulatory Devika Pulido PA-C Work Phone: [facility] Comment on above: Insulin controlled [...] Pulido PA-C Work Phone: [facility] Start: 04-05-2025 End: 04-05-2025 Clinisync Result Encounter Cain Mendoza DO Work Phone: [facility] Unsolicited Start: 04-05-2025 End: 04-05-2025 Clinisync Result Encounter Cain Mendoza DO Work Phone: [facility] Unsolicited Start: 03-30-2025 End: 03-30-2025 Bamboo flowsprabhu MCKOY Work Phone: [facility] Start: 03-30-2025 End: 03-30-2025 Bamboo flowsprabhu MCKOY Work Phone: [facility] Start: 03-30-2025 End: 03-30-2025 Office outpatient visit 25 minutes Apollo LAWRENCE Work Phone: [facility] Comment on above: Insulin controlled g estational diabetes mellitus (GDM) in second trimester (Primary Dx); Recurrent major depressive disorder, in partial remission; Prediabetes in mother during Start: 03-30-2025 End: 03-30-2025 ambulatory APOLLO LORI [facility] Start: 03-30-2025 End: 03-30-2025 flow [...] encounter Sonya Lomax RN [facility] Start: 03-16-2025 End: 03-16-2025 Telephone encounter Sonya Lomax RN [facility] Start: 03-16-2025 End: 03-16-2025 [facility] Start: 03-11-2025 End: 03-11-2025 Telephone encounter Naomy Thompson RN Work Phone: [facility] Start: 03-07-2025 End: 03-07-2025 Orders Only Cole Wade MD Work Phone: [facility] Comment on above: Insulin controlled [...] encounter Valerie Le RN [facility] Start: 02-28-2025 End: 02-28-2025 Orders Only Devika Pulido PA-C Work Phone: [facility] Comment on above: Insulin controlled g estational diabetes mellitus (GDM) in second trimester; Prediabetes in mother during Start: 02-24-2025 End: 02-24-2025 Office outpatient visit 25 minutes Apollo Semora UMMRHONDA Work Phone: [facility] at [facility] Comment on above: Insulin controlled g estational diabetes mellitus (GDM) in second trimester (Primary Dx); Recurrent major depressive disorder, in partial remission; Bipolar 1 disorder ([facility]); Prediabetes in mother during Start: 02-24-2025 End: 02-24-2025 ambulatory [facility] Start: 02-17-2025 End: 02-17-2025 Telephone encounter Christy Prado LPN [facility] Start: 02-15-2025 End: 02-15-2025 Telephone encounter Valerie Le RN [facility] Start: 02-08-2025 End: 02-08-2025 Office consultation new/estab patient 60 min Jaida Chadwick MD Work Phone: [facility] Comment on above: Insulin controlled [...] Only Christy Prado LPN [facility] Comment on above: Insulin controlled g estational diabetes mellitus (GDM) in second trimester (Primary Dx); Choroid plexus cyst of fetus affecting care of mother, antepartum, single or unspecified fetus; Heterozygous factor V Leiden affecting in second trimester, antepartum; Severe obesity due to excess calories affecting , antepartum ([facility]) Start: 02-03-2025 End: 02-03-2025 Telephone encounter Christy Prado LPN [facility] Start: 01-27-2025 End: 01-27-2025 Orders Only Apollo Martinez RESOLUTION MANAGERTSO3 Work Phone: [facility] Start: 01-26-2025 End: 01-26-2025 Office outpatient new 45 minutes Apollo Martinez RESOLUTION MANAGER-[employer] Work Phone: [facility] Comment on above: Insulin controlled g estational diabetes mellitus (GDM) in second trimester (Primary Dx) Start: 01-26-2025 End: 01-27-2025 Refill Apollo Martinez RESOLUTION MANAGERTSO3 Work Phone: [facility] Start: 01-26-2025 End: 01-26-[address] Work Phone: [facility] Comment on above: Insulin controlled [...] abstracting Scanning Provider External [facility] Start: 12-30-2024 End: 12-30-2024 Chart abstracting Jaida Chadwick MD Work Phone: [facility] Start: 12-29-2024 End: 12-29-2024 Telephone encounter Claudine Hawthorne [facility] at [facility] Start: 12-23-2024 End: 12-23-2024 ambulatory CAIN DONALDSON [facility] Start: 12-23-2024 End: 12-23-2024 Subsequent hospital visit by physician [facility] Start: 12-23-2024 End: 12-23-2024 Bamboo flowsheet Cain Mendoza DO Work Phone: [facility] Start: 12-23-2024 End: 12-24-2024 Bamboo flowsheet Cain Mendoza DO Work Phone: [facility] Start: 12-23-2024 End: 12-24-2024 Clinisync Result Encounter Cain Mendoza DO Work Phone: [facility] External Department Unsolicited Start: 12-23-2024 End: 12-23-2024 flow sheet Cain Mendoza DO Work Phone: [facility] Comment on above: Second trimester pre gnancy; 13 weeks gestation of ; Gestational diabetes mellitus (GDM), antepartum, gestational diabetes method of control unspecified; Elevated glucose tolerance test; resulting from in vitro fertilization, antepartum Start: 12-23-2024 End: 12-23-2024 ambulatory CAIN DONALDSON Not Available Start: 11-25-2024 End: 11-25-2024 ambulatory [facility] Mendoza Nurse [facility] Comment on above: GA: [id number] Start: 10-20-2024 End: 10-20-2024 ambulatory [facility] Start: 10-20-2024 End: 10-20-2024 Subsequent hospital visit by physician [facility] Start: 10-18-2024 End: 10-18-2024 ambulatory [facility] Start: 10-18-2024 End: 10-18-2024 Subsequent hospital visit by physician [facility] Start: 04-06-2024 End: 04-06-2024 ambulatory PHYSICIAN TWIN [facility] Work Phone: Start: 04-06-2024 End: 04-06-2024 Patient encounter procedure PHYSICIAN TWIN [facility] Work Phone: Start: 04-15-2022 End: 04-15-2022 Subsequent hospital visit by physician [facility] Start: 02-08-2022 End: 02-08-2022 Subsequent hospital visit by physician [facility] Start: 01-14-2022 End: 01-14-2022 Subsequent hospital visit by physician [facility] Start: 01-07-2022 End: 01-07-2022 Subsequent hospital visit by physician [facility] Start: 12-10-2021 End: 12-10-2021 Subsequent hospital visit by physician [facility] Start: 09-26-2021 End: 09-26-2021 Subsequent hospital visit by physician [facility] Start: 09-17-2021 End: 09-17-2021 Subsequent hospital visit by physician [facility] Start: 06-25-2021 End: 06-25-2021 Subsequent hospital visit by physician [facility] Start: 02-15-2021 End: 02-15-2021 Subsequent hospital visit by physician [facility] Covid19 Pat Screening Schedule [facility] Comment on above: Arrived Start: 01-11-2021 End: 01-11-2021 Subsequent hospital visit by physician [facility] Procedures Date Procedure Procedure Detail Performing Clinician Start: 05-17-2025 US OB BPP W NON-STRESS George Scherer DIRECTOR OF CONSUMER AFFAIRS Work Phone: Start: 05-16-2025 Urnls dip stick/tabl et rgnt non-auto w/o micrscp Cain Mendoza DO Work Phone: Start: 05-10-2025 US OB BPP W NON-STRESS Georgenkechi Lamerly DIRECTOR OF CONSUMER AFFAIRS Work Phone: Start: 05-04-2025 US OB BPP W NON-STRESS George Gilmer DIRECTOR OF CONSUMER AFFAIRS Work Phone: Start: 05-03-2025 Urnls dip stick/tabl et rgnt non-auto w/o micrscp Christy Burnett PA Work Phone: Start: 04-27-2025 US OB BPP W NON-STRESS George Gilmer DIRECTOR OF CONSUMER AFFAIRS Work Phone: Start: 04-19-2025 US OB BPP W NON-STRESS Cain Mendoza DO Work Phone: Start: 04-19-2025 US RENAL BI Cain Fazi o DO Work Phone: Start: 04-18-2025 [facility] UA (CLEAN/CATCH) BROADCAST SYSTEMS ENGINEER/MICRO IF IND. Cain Mendoza DO Work Phone: Start: 04-18-2025 Urnls dip stick/tabl et rgnt non-auto w/o micrscp Cain Mendoza DO Work Phone: Start: 04-17-2025 [facility] TOTAL PROTEIN 24 HOUR URINE Cain Mendoza DO Work Phone: Start: 04-11-2025 US OB BPP W NON-STRESS Cain Mendzoa DO Work Phone: Start: 04-11-2025 ALL BUN [...] Start: 12-23-2024 MHPT CBC WITH DIFF Shakira Veeo DO Work Phone: Start: 12-23-2024 MHPT DRUG SCR, ABUSE, UR Cain Chewzio DO Work Phone: Start: 12-23-2024 Antibody screen [...] Td Vaccines (2 - Td or Tdap) [facility] X BODY [facility] Start: 01-21-2028 Screening for malign ant neoplasm of cervix [facility] X BODY [facility] Start: 02-08-2026 Adult BMI Screening Adult BMI Screen ing [facility] Start: 02-08-2026 Tobacco Screening Tobacco Screening [facility] Start: 01-26-2026 Adult BMI Screening Adult BMI Screen ing [facility] Start: 01-26-2026 Tobacco Screening Tobacco Screening [facility] Start: 07-04-2025 Influenza vaccination P [facility] Start: 06-13-2025 End: 06-13-2025 Patient encounter procedure 06/13/2025 8:30 AM EDT Routine [facility] [address] [place] [id number] Christy Burnett, PA [address] [place] [address] [facility] Start: 06-06-2025 End: 06-06-2025 Patient encounter procedure 06/06/2025 8:40 AM EDT Routine [facility] [address] [place] [id number] Christy Burnett, PA [address] [place] [address] [facility] Start: 06-03-2025 Influenza vaccination Flu vacc ine (Season Ended) [facility] Start: 05-30-2025 End: 05-30-2025 Patient encounter procedure 05/30/2025 8:30 AM EDT Routine [facility] [address] [facility] [place] [phone] Cain Donaldson DO [address] [place] [address] [facility] Start: 05-26-2025 End: 05-26-2025 Patient encounter procedure 05/26/2025 8:50 AM EDT Routine [facility] [address] [facility] [facility] [place] [id number] Christy Burnett, PA [address] [place] [address] [facility] Start: 05-23-2025 End: 05-23-2025 Telemedicine consultation with patient 05/23/2025 1:30 PM EDT Telemedicine [facility] at [facility] [address] [facility] [place] [address] Devika Pulido PA-C [address] [facility] [address] [place] [address] [facility] Start: 05-16-2025 End: 05-16-2025 Patient encounter procedure 05/16/2025 8:30 AM EDT Routine [facility] [address] [place] [address] Cain Donaldson, DO [address] [place], [place] [id number] [facility] Start: 05-12-2025 End: 05-12-2025 Patient encounter procedure 05/12/2025 8:00 AM EDT Appointment [facility] [place] [address] [facility] [address] [place] [phone] [facility] [place] Start: 05-10-2025 End: 05-10-2025 Professional / ancillary services management 05/10/2025 8:00 AM EDT Ancillary Procedure [facility] [address] [place] [address] [facility] Start: 05-03-2025 End: 09-03-2025 US for US OB follow up transabdominal approach Imaging Routine size inconsistent with dates ([facility]) Expected: 05/03/2025, Expires: 09/03/2025 [facility] Work Phone: Comment on above: Expected: 05/03/2025 , Expires: 09/03/2025 Start: 05-03-2025 End: 05-03-2025 Patient encounter procedure [facility] Comment on above: Arrived Start: 04-25-2025 End: 04-25-2025 Telemedicine consultation with patient 04/25/2025 11:30 AM EDT Telemedicine [facility] at [facility] [address] [place] [address] Devika Pulido PA-C [address] [place] [address] [facility] Start: 04-18-2025 End: 04-18-2025 Patient encounter procedure 04/18/2025 10:10 AM EDT Routine [facility] [address] [place] [phone] Cain Donaldson DO [address] [place] [address] [facility] Start: 04-14-2025 End: 04-14-2025 Patient encounter procedure 04/14/2025 8:00 AM EDT Appointment [facility] [place] [address] [facility] [address] [place] [address] [facility] [place] Start: 03-30-2025 End: 09-30-2025 US biophysical profile w non stress test US biophysical profile w non stress test Imaging Routine Gestational diabetes mellitus (GDM), antepartum, gestational diabetes method of control unspecified Factor 5 Leiden mutation, heterozygous (CMS/HCC) Conceived by in vitro fertilization Expected: 03/30/2025 (Approximate), Expires: 09/30/2025 [facility] Comment on above: Expected: 03/30/2025 (Approximate), Expires: [...] 1:30 PM EDT Telemedicine [facility] at [facility] [address] [place] [phone] Apollo Martinez, RESOLUTION MANAGER-FLOORMAN [address] [place] [address] [facility] Start: 03-30-2025 End: 03-30-2025 Patient encounter procedure [facility] Comment on above: Arrived Start: 03-16-2025 End: 03-16-2025 Patient encounter procedure 03/16/2025 8:00 AM EDT Appointment [facility] US Imaging [address] [place] [phone] [facility] Imaging Start: 03-03-2025 End: 03-03-2026 Alanine aminotransferase [Enzymatic activity/volume] in Serum or Plasma ALT Lab Routine 23 weeks gestation of induced hypertension, antepartum Expected: 03/03/2025 (Approximate), Expires: 03/03/2026 [facility] Comment on above: Expected: 03/03/2025 (Approximate), Expires: 03/03/2026 Start: 03-03-2025 End: 03-03-2026 Aspartate aminotransferase [Enzymatic activity/volume] in Serum or Plasma AST Lab Routine 23 weeks gestation of induced hypertension, antepartum Expected: 03/03/2025 (Approximate), Expires: 03/03/2026 [facility] Comment on above: Expected: 03/03/2025 (Approximate), Expires: 03/03/2026 Start: 03-03-2025 End: 03-03-2026 CBC W Auto Differential panel - Blood CBC and differential Lab Routine 23 weeks gestation of induced hypertension, antepartum Expected: 03/03/2025 (Approximate), Expires: 03/03/2026 [facility] Comment on above: Expected: 03/03/2025 (Approximate), Expires: 03/03/2026 Start: 03-03-2025 End: 03-03-2026 Creatinine [Mass/volume] in Serum or Plasma Creatinine Lab Routine 23 weeks gestation of induced hypertension, antepartum Expected: 03/03/2025 (Approximate), Expires: 03/03/2026 [facility] Work Phone: Comment on above: Expected: 03/03/2025 (Approximate), Expires: 03/03/2026 Start: 03-03-2025 End: 03-03-2026 Lactate dehydrogenase [Enzymatic activity/volume] in Serum or Plasma by Lactate to pyruvate reaction Lactate dehydrogenase Lab Routine 23 weeks gestation of induced hypertension, antepartum Expected: 03/03/2025, Expires: 03/03/2026 [facility] Comment on above: Expected: 03/03/2025 , Expires: 03/03/2026 Start: 03-03-2025 End: 03-03-2026 Protein, urine, 24 hour Protein, urine, 24 hour Lab Routine 23 weeks gestation of induced hypertension, antepartum Expected: 03/03/2025 (Approximate), Expires: 03/03/2026 [facility] Comment on above: Expected: 03/03/2025 (Approximate), Expires: 03/03/2026 Start: 03-03-2025 End: 03-03-2026 Pt and ptt Pt and ptt Lab Routine 23 weeks gestation of induced hypertension, antepartum Expected: 03/03/2025, Expires: 03/03/2026 [facility] Comment on above: Expected: 03/03/2025 , Expires: 03/03/2026 Start: 03-03-2025 End: 03-03-2026 Urate [Mass/volume] in Serum or Plasma Uric acid Lab Routine 23 weeks gestation of induced hypertension, antepartum Expected: 03/03/2025 (Approximate), Expires: 03/03/2026 [facility] Comment on above: Expected: 03/03/2025 (Approximate), [...] BCP OB [address] [place] [address] Cain Donaldson DO [address] [facility] [place] [address] Arrived [facility] Comment on above: Arrived Start: 02-24-2025 End: 02-24-2025 Patient encounter procedure 02/24/2025 1:00 PM EDT Office Visit Maternal- Medicine at [facility] [address] [place] [address] Apollo Martinez, RESOLUTION MANAGER-FLOORMAN [address] [place] [address] Maternal- Medicine at [facility] Start: 02-08-2025 End: 02-08-2026 US MFM with or without consult US MFM with or without consult Imaging Routine Insulin controlled gestational diabetes mellitus (GDM) in second trimester Choroid plexus cyst of fetus affecting care of mother, antepartum, single or unspecified fetus Heterozygous factor V Leiden affecting in second trimester, antepartum Severe obesity due to excess calories affecting , antepartum ([facility]) Expected: 02/08/2025, Expires: 02/08/2026 [employer] Work Phone: Comment on above: Expected: 02/08/2025 , Expires: 02/08/2026 Start: 02-08-2025 End: 02-08-2025 Patient encounter procedure [facility] - MFM US Imaging Start: 01-26-2025 End: 01-26-2025 Patient encounter procedure 01/26/2025 3:30 PM EDT Office Visit Maternal- Medicine at [facility] [address] [facility] [place] [id number] Apollo Martinez, RESOLUTION MANAGER-FLOORMAN [address] [place] [address] Maternal- Medicine at [facility] Start: 01-26-2025 End: 01-26-2025 ambulatory 01/26/2025 1:30 PM EDT Support Visit Maternal- Medicine at [facility] [address] [place] [phone] Kenzie Rhodes, RD [address] [facility], [address] [place] [address] Maternal- Medicine at [facility] Start: 01-20-2025 End: 02-20-2025 Alpha [...] gestational age Expected: 11/25/2024 (Approximate), Expires: 11/25/2025 [facility] Work Phone: Comment on above: Expected: 11/25/2024 (Approximate), Expires: 11/25/2025 Start: 11-25-2024 End: 11-25-2025 Drugs of abuse panel - Urine by Screen method Rapid drug screen, urine Lab Routine , unspecified gestational age Encounter for supervision of normal first in first trimester Expected: 11/25/2024 (Approximate), Expires: 11/25/2025 [facility] Comment on above: Expected: 11/25/2024 (Approximate), Expires: 11/25/2025 Start: 07-04-2024 COVID-19 Vaccine ( season) COVID-19 Vaccine ( season) [facility] Start: 07-04-2024 COVID-19 Vaccine ( season) COVID-19 Vaccine ( season) [facility] Start: 07-04-2024 Influenza vaccination Influenza Vacc ine [facility] Start: 06-03-2024 Influenza vaccination Flu vaccine (# 1) [facility] Start: 11-24-2023 Screening for malign ant neoplasm of cervix Pap Smear [facility] Start: 2023 Screening for malign ant neoplasm of cervix [facility] Start: 07-04-2022 Influenza vaccination Flu vacc ine (Season Ended) [facility] Start: 07-04-2021 Influenza vaccination [facility] Start: 07-04-2020 Influenza vaccination Flu vaccine (# 1) [facility] Work Phone: Start: 07-03-2015 DTaP,Tdap and Td Vac cines (2 - Tdap) DTaP,Tdap and Td Vaccines (2 - Tdap) [facility] Start: 2014 Screening for malign ant neoplasm of cervix [facility] Start: 2012 DTaP/Tdap/Td vaccine (1 - Tdap) DTaP/Tdap/Td vaccine (1 - Tdap) [facility] Start: 2012 Hepatitis B vaccine (1 of 3 - 19+ 3-dose series) Hepatitis B vaccine (1 of 3 - 19+ 3-dose series) [facility] Start: 2011 Adult BMI Follow Up Plan Adult BMI Follow Up Plan [facility] [employer] Start: 2011 Adult BMI Screening Adult [facility] Screen [facility] Start: 2009 COVID-19 Vaccine (1) COVID-19 Vaccin e (1) [employer] Phone: Start: 2006 Varicella vaccine (1 of 2 - 13+ 2-dose series) Varicella vaccine (1 of 2 - 13+ 2-dose series) [facility] Start: 2005 COVID-19 Vaccine (1) COVID-19 Vaccin e (1) [employer] Start: 2005 [facility] Start: 2005 Depression Screening Depression Scre ening [facility] Start: 2005 Tobacco Screening Tobacco Screening [facility] [employer] Start: 1998 COVID-19 Vaccine (1) COVID-19 Vaccin e (1) [employer] Start: 1994 Varicella vaccine (1 of 2 - 2-dose childhood series) Varicella vaccine (1 of 2 - 2-dose childhood series) [facility] End: 02-08-2025 Alpha Fetoprotein, Maternal [facility] [employer] Phone: Comment on above: Once for 1 Occurrenc es starting 02/08/2025 until 02/08/2025 End: 01-11-2021 Anti Mullerian Hormone Anti Mullerian Hormone Lab Routine Once for 1 Occurrences starting 01/11/2021 until 01/11/2021 [employer] Phone: Comment on above: Once for 1 Occurrenc es starting 01/11/2021 until 01/11/2021 Anti Mullerian Hormone Anti Keeley erian Hormone Lab Routine 01/11/2021 1:58 PM EST [employer] Phone: Bacteria identified in Urine by Culture Urine culture Microbiology Routine Missed menses Ordered: 11/25/2024 [facility] Comment on above: Ordered: 11/25/2024 Bacteria identified in Urine by Culture Urine culture Microbiology Routine 34 weeks gestation of ([facility]) Conceived by in vitro fertilization Ordered: 05/16/2025 [employer] Work Phone: Comment on above: Ordered: 05/16/2025 End: 01-11-2021 C.trachomatis N.gonorrhoeae DNA, Urine C.trachomatis N.gonorrhoeae DNA, Urine Microbiology Routine Once for 1 Occurrences starting 01/11/2021 until 01/11/2021 [employer] Phone: Comment on above: Once for 1 Occurrenc es starting 01/11/2021 until 01/11/2021 C.trachomatis N.gonorrhoeae DNA, Urine C.trachomatis N.gonorrhoeae DNA, Urine Microbiology Routine 01/11/2021 2:29 PM EST [employer] Phone: CBC W Auto Different ial panel - Blood CBC and differential Lab Routine Missed menses , unspecified gestational age Ordered: 11/25/2024 [employer] Comment on above: Ordered: 11/25/2024 CHLAMYDIA TRACHOMATI S (GENITO/STI) CHLAMYDIA TRACHOMATIS (GENITO/STI) Lab Routine Exposure to STD Ordered: 01/20/2025 [employer] Comment on above: Ordered: 01/20/2025 End: 02-15-2021 COVID-19 COVID-19 Lab Routine Once for 1 Occurrences starting 02/15/2021 until 02/15/2021 [employer] Phone: Comment on above: Once for 1 Occurrenc es starting 02/15/2021 until 02/15/2021 COVID-19 COVID-19 Lab Rou linda 02/15/2021 3:10 PM EDT [employer] Phone: End: 12-23-2024 Culture, Urine [facility] [employer] Comment on above: Once for 1 Occurrenc es starting 12/23/2024 until 12/23/2024 Cytology Cervical or vaginal smear or scraping study Pap Smear Pathology and Cytology Routine Well woman exam with routine gynecological exam Ordered: 01/20/2025 [employer] Comment on above: Ordered: 01/20/2025 End: 03-11-2021 Factor 5 Leiden Factor 5 Leiden Lab Routine Once for 1 Occurrences starting 01/11/2021 until 01/11/2021 [employer] Phone: Comment on above: Once for 1 Occurrenc es starting 01/11/2021 until 01/11/2021 Factor 5 Leiden Factor 5 Leiden Lab Routine 01/11/2021 1:58 PM [employer] Phone: End: 01-11-2021 HbA1c (Bld) [Mass fraction] Hemoglobin A1C Lab Routine Once for 1 Occurrences starting 01/11/2021 until 01/11/2021 [employer] Phone: Comment on above: Once for 1 Occurrenc es starting 01/11/2021 until 01/11/2021 HbA1c (Bld) [Mass fraction] Hemoglobin A1C Lab Routine 01/11/2021 1:58 PM [employer] Phone: Hemoglobin A1c/Hemoglobin.total in Blood Hemoglobin A1c Lab Routine Missed menses , unspecified gestational age Ordered: 11/25/2024 [facility] [employer] Comment on above: Ordered: 11/25/2024 End: 12-23-2024 Hemoglobin A1c/Hemoglobin.total in Blood [employer] Comment on above: Once for 1 Occurrenc es starting 12/23/2024 until 12/23/2024 End: 12-23-2024 Hepatitis B Surface Antigen [employer] Comment on above: Once for 1 Occurrenc es starting 12/23/2024 until 12/23/2024 Hepatitis B virus urbano rface Ag [Presence] in Serum or Plasma by Immunoassay Hepatitis B surface antigen Lab Routine Missed menses , unspecified gestational age Ordered: 11/25/2024 [facility] [employer] Comment on above: Ordered: 11/25/2024 End: 12-23-2024 Hepatitis C Antibody [employer] Work Phone: Comment on above: Once for 1 Occurrenc es starting 12/23/2024 until 12/23/2024 Hepatitis C virus Ab [Presence] in Serum or Plasma by Immunoassay Hepatitis C antibody Lab Routine Missed menses , unspecified gestational age [facility] Comment on above: Ordered: 11/25/2024 End: 12-23-2024 HIV Screen [facility] Comment on above: Once for 1 Occurrenc es starting 12/23/2024 until 12/23/2024 HIV-1/HIV-2 antigen/antibody combination immunoassay HIV-1 and HIV-2 antibodies Lab Routine Missed menses , unspecified gestational age Ordered: 11/25/2024 [facility] Comment on above: Ordered: 11/25/2024 Human papilloma viru s DNA [Presence] in Unspecified specimen by Probe with amplification HPV DNA probe, amplified Microbiology Routine Well woman exam with routine gynecological exam Ordered: 01/20/2025 [facility] Comment on above: Ordered: 01/20/2025 Neisseria gonorrhoea e DNA [Presence] in Unspecified specimen by JOSELYN with probe detection Neisseria gonorrhea DNA probe, direct Lab Routine Exposure to STD Ordered: 01/20/2025 [facility] Comment on above: Ordered: 01/20/2025 End: 01-11-2021 Prothrombin Gene Mutation Prothrombin Gene Mutation Lab Routine Once for 1 Occurrences starting 01/11/2021 until 01/11/2021 [employer] Phone: Comment on above: Once for 1 Occurrenc es starting 01/11/2021 until 01/11/2021 Prothrombin Gene Mutation Prothr ombin Gene Mutation Lab Routine 01/11/2021 1:58 PM [facility] [employer] Phone: Reagin Ab [Presence] in Serum by RPR RPR Lab Routine Missed menses , unspecified gestational age Ordered: 11/25/2024 [facility] Comment on above: Ordered: 11/25/2024 Rubella antibody, IgG Rubella an tibody, IgG Lab Routine Missed menses , unspecified gestational age Ordered: 11/25/2024 [facility] Comment on above: Ordered: 11/25/2024 End: 12-23-2024 Rubella antibody, IgG [facility] Comment on above: Once for 1 Occurrenc es starting 12/23/2024 until 12/23/2024 SURESWAB(R) ADVANCED VAGINITIS PLUS, TMA SURESWAB(R) ADVANCED VAGINITIS PLUS, TMA Pathology and Cytology Routine Vaginal discharge Ordered: 01/20/2025 [facility] Comment on above: Ordered: 01/20/2025 End: 01-11-2021 T. pallidum Ab T. pallidum Ab Lab Routine Once for 1 Occurrences starting 01/11/2021 until 01/11/2021 [employer] Phone: Comment on above: Once for 1 Occurrenc es starting 01/11/2021 until 01/11/2021 T. pallidum Ab T. pallidum Ab L ab Routine 01/11/2021 1:58 PM [employer] Phone: End: 12-23-2024 T. pallidum Ab [facility] [employer] Comment on above: Once for 1 Occurrenc [...] due to excess calories affecting , antepartum ([facility]) Bipolar disorder, in full remission, most recent episode depressed 1 Occurrences starting 02/08/2025 until 02/08/2026 [employer] Work Phone: Comment on above: 1 Occurrences starti ng 02/08/2025 until 02/08/2026 End: 01-11-2021 Varicella Zoster Antibody, IgG Varicella Zoster Antibody, IgG Lab Routine Once for 1 Occurrences starting 01/11/2021 until 01/11/2021 [employer] Phone: Comment on above: Once for 1 Occurrenc es starting 01/11/2021 until 01/11/2021 Varicella Zoster Ant ibody, IgG Varicella Zoster Antibody, IgG Lab Routine 01/11/2021 1:58 PM [employer] Phone: End: 01-11-2021 Vitamin D 25 Hydroxy Vitamin D 25 Hydroxy Lab Routine Once for 1 Occurrences starting 01/11/2021 until 01/11/2021 [employer] Phone: Comment on above: Once for 1 Occurrenc es starting 01/11/2021 until 01/11/2021 Vitamin D 25 Hydroxy [facility] Work Phone: End: 06-25-2021 Vitamin D 25 Hydroxy Vitamin D 25 Hydroxy Lab Routine Once for 1 Occurrences starting 06/25/2021 until 06/25/2021 [facility] Work Phone: Comment on above: Once for 1 Occurrenc es starting 06/25/2021 until 06/25/2021 Immunizations Immunization Date Immunization Notes Care Provider Fa [facility] 08-03-2024 influenza virus vaccine, unspecified formulation [facility]y Prado LPN [facility] 09-08-2023 influenza virus vaccine, unspecified formulation Jaida Chadwick MD Work Phone: [facility] [employer] Payers Date Payer Category Payer [facility] BCBS [id number] 2024 Self-pay 2020 [facility] Managed Care - Other [id number] 2014 Unknown [id number]. [id number] 1993 Unknown [id number] 2.16.840.1.304250.3.579. 2.174 1993 Unknown [id number] 2.16.840.1.856501.3.579. 2.174 1993 Unknown [id number] 2.16.840.1.855390.3.579. 2.174 1993 Unknown [id number] 2.16.840.1.846464.3.579. 2.174 1993 Unknown [id number] 2.16.840.1.556180.3.579. 2.128 1993 Unknown [id number] 2.16.840.1.125998.3.579. 2.128 1993 Unknown [id number] 2.16.840.1.410485.3.579. 2.1285 1993 Unknown [id number] 2.16840.1.718989.3.579. 2.1285 1993 Unknown [id number] 2.16840.1.430225.3.579. 2.128 1993 Unknown [id number] 2.16.840.1.235841.3.579. 2.1285 1993 Unknown [id number] 2.16.840.1.040351.3.579. 2.128 1993 Unknown [id number] 2.16840.1.382943.3.579. 2.1285 1993 Unknown [id number] 2.16.840.1.308478.3.579. 2.128 1993 Unknown [id number] 2.16.840.1.710248.3.579. 2.1259 1993 Unknown [id number] 2.16.840.1.058985.3.579. 2.1259 1993 Unknown [id number] 2.16840.1.257650.3.579. 2.1259 1993 Unknown [id number] 2.16840.1.026463.3.579. 2.1259 1993 Unknown [id number] 2.16.840.1.531700.3.579. 2.9 1993 Unknown [id number] 2.16.840.1.030681.3.579. 2.9 1993 Unknown [id number] 2.16.840.1.847395.3.579. 2.1258 1993 Unknown [id number] 2.16.840.1.137171.3.579. 2.9 1993 Unknown [id number] 2.16.840.1.435739.3.579. 2.1258 1993 Unknown [id number] 2.16.840.1.850850.3.579. 2.9 1993 Unknown [id number] 2.16.840.1.771336.3.579. 2.727 1993 Unknown [id number] 2.16.840.1.789178.3.579. 2.727 Unknown [id number] 2.16.840.1.368043.3.579. 2.531 Social History Date Type Detail Facility Tobacco smoking stat [facility] Unknown if ever smoked [employer] Phone: Start: 1993 Sex Assigned At Not on file [facility] [employer] Phone: Tobacco smoking stat [facility] Tobacco smoking consumption unknown [facility] Start: 1993 Sex Assigned At Female F [facility] Start: 02-20-2013 End: 11-15-2020 History of Social function [employer] Start: 02-20-2013 End: 11-15-2020 Tobacco use panel [facility] Start: 10-01-2024 [facility] Start: 11-24-2024 Gender identity Identifies as female gender (finding) [facility] Start: 06-06-2015 End: 12-29-2024 Sex Female (finding) [facility] Start: 11-24-2020 End: 02-08-2025 Tobacco smoking status NHIS Ex-smoker [facility] Start: 11-03-2020 End: 11-03-2010 History of tobacco use Current smoker [facility] Start: 11-03-2020 End: 11-03-2010 History of tobacco use Cigarette Smoker [facility] Start: 11-24-2020 End: 02-08-2025 Tobacco use and exposure Smokeless tobacco non-user [facility] Start: 12-30-2024 End: 02-08-2025 Alcoholic beverage intake Ex-drinker (finding) [facility] Childcare Unknown [facility] [employer] Medical Equipment Procedure Code Equipment Code Equipment Origin al Text Equipment Identifier Dates [id number] Start: 12-23-2024 End: 01-22-2025 1 each by In Vit ro route Daily Use to check FSBS four times daily [id number] Start: 12-23-2024 End: 01-22-2025 Use 2 syringes i n the morning for insulin dosage and 2 syringes in the Evening for insulin dosage. Total of 4 syringes daily needed. [id number] Start: 01-07-2025 Goals Date Patient Goal Desired Activity /State Personal health goal Clinical Notes 11-25-2024 to 05-17-2025 Telephone Encounter - Sonya Lomax RN - 05/17/2025 7:37 PM EDTTelephone Encounter - Sonya Lomax RN - 05/17/2025 7:37 PM Diego Parkinson LPN - 05/16/2025 8:30 AM EDTPatient Instructions Note Date & Type Note Facility 05-17-2025 Miscellaneous Notes Called pt to let her know that Devika Tess reviewed her blood sugars and did not want to make any changes for this week there was not pattern to change. She will stay on her 25 units of lantus in the evening for this week. Pt to send in new blood sugars next week. documented in this encounter [facility] 05-17-2025 Telephone encounter Note Called pt to let her know that Devika Pulido reviewed her blood sugars and did not want to make any changes for this week there was not pattern to change. She will stay on her 25 units of lantus in the evening for this week. Pt to send in new blood sugars next week. [facility] 05-16-2025 History of Present illness Narrative Reason for Appointment: Patient ID: Fannie White is a 29 y.o. female who presents for Routine Visit Patient presents today for Return OB appointment. MEDICATIONS Current Outpatient Medications Medication Instructions Alcohol Swabs (Alcohol Prep Pad) 70 % pads 1 Pad, Topical, Daily, Use four times daily to check FSBS. Blood Glucose Monitoring Suppl (Attensity Glucometer) w/Device kit 1 kit, Does not [...] Medical History: Diagnosis Date SAB (spontaneous ) ([facility]) 10/2021 HISTORY PAST MEDICAL HISTORY SOCIAL HISTORY Past Medical History: Diagnosis Date SAB (spontaneous ) ([facility]) 10/2021 Social History Tobacco Use Smoking [...] nursing note reviewed. Exam conducted with a tetryl screen operator present. Vitals: Estimated body mass index is 43.71 kg/m as calculated from the following: Height as of 04/18/25: 5' 2 . Weight as of this encounter: 239 lb. BP: 120/70 No LMP recorded. Patient is . ASSESSMENT & PLAN ICD-10-CM 1. 34 weeks gestation of ([facility]) Z3A.34 POCT urinalysis dipstick manually resulted Urine culture 2. Third trimester ([facility]) Z34.93 POCT urinalysis dipstick manually resulted 3. Conceived by in vitro fertilization Z78.9 Urine culture 4. Factor 5 Leiden mutation, heterozygous ([facility]) D68.51 5. Insulin controlled gestational diabetes mellitus (GDM) during , antepartum ([facility]) O24.414 Patient presents today for a [...] Cain Donaldson DO documented in this encounter [facility] 05-11-2025 Miscellaneous Notes Left a voicemail regarding her blood sugar log from 05/02/25 to 05/08/25. Dr. Askew reviewed it, and there are no medication changes this week. Continue 25 units of lantus in the evening. Patient to continue sending weekly BG logs. Will send MyChart as well. documented in this encounter [facility] 05-11-2025 Telephone encounter Note Left a voicemail regarding her blood sugar log from 05/02/25 to 05/08/25. Dr. Askew reviewed it, and there are no medication changes this week. Continue 25 units of lantus in the evening. Patient to continue sending weekly BG logs. Will send MyChart as well. [facility] 05-03-2025 Miscellaneous Notes Called regarding blood sugar logs from 04/25/2025-05/01/2025, she had one elevated fasting blood sugar and two elevated blood sugars after lunch. Fannie could account for why her blood sugars were elevated after her meals. Provided encouragement. Continue to monitor carbohydrates and blood sugars. documented in this encounter [facility] 05-03-2025 Telephone encounter Note Called regarding blood sugar logs from 04/25/2025-05/01/2025, she had one elevated fasting blood sugar and two elevated blood sugars after lunch. Ashlynd could account for why her blood sugars were elevated after her meals. Provided encouragement. Continue to monitor carbohydrates and blood sugars. [facility] 05-03-2025 History of Present illness Narrative Reason for Appointment: Patient ID: Fannie White is a 29 y.o. female who presents for Routine Visit Patient presents today for Return OB appointment. MEDICATIONS Current Outpatient Medications Medication Instructions Alcohol Swabs (Alcohol Prep Pad) 70 % pads 1 Pad, Topical, Daily, Use four times daily to check FSBS. Blood Glucose Monitoring Suppl (Attensity Glucometer) w/Device kit 1 kit, Does not [...] Medical History: Diagnosis Date SAB (spontaneous ) ([facility]) 10/2021 HISTORY PAST MEDICAL HISTORY SOCIAL HISTORY Past Medical History: Diagnosis Date SAB (spontaneous ) ([facility]) 10/2021 Social History Tobacco Use Smoking [...] Vitals: Estimated body mass index is 43.99 kg/m as calculated from the following: Height as of 04/18/25: 5' 2 . Weight as of this encounter: 240 lb 8 oz. BP: 130/86 No LMP recorded. Patient is . ASSESSMENT & PLAN ICD-10-CM 1. size inconsistent with dates ([facility]) O26.849 US OB follow up transabdominal approach 2. Third trimester ([facility]) Z34.93 POCT urinalysis dipstick manually resulted 3. 32 weeks gestation of ([facility]) Z3A.32 4. Conceived by in vitro fertilization Z78.9 5. Factor 5 Leiden mutation, heterozygous ([facility]) D68.51 6. Insulin controlled gestational diabetes mellitus (GDM) during , antepartum ([facility]) O24.414 Return OB: Patient presents today for [...] of: LEELEE Keita documented in this encounter [facility] 04-25-2025 History of Present illness Narrative Maternal- Medicine Consultation VIDEO Patient is present at home, provider present at [facility] HISTORY OF PRESENT ILLNESS: Fannie White is [...] on right. She is following urology through [place]. Her pain and symptoms have improved, are [...] , Rfl: blood-glucose meter [facility], 4 (four) times a day. Use to [...] Rfl: lancets (LANCETS,ULTRA THIN) [facility], Use to check blood sugar 4 times daily. Fasting in the morning, and 1 hour after each meal., Disp: , Rfl: PNV no.153/FA/om3/dha/epa/fish ( [employer]), Take 2 tablets by mouth in the morning., Disp: , Rfl: LABS: Lab Results Component Value Date TSH 3.31 11/24/2020 No components found for: [facility] Lab Results Component Value Date CREATININE 0.73 [...] hypoglycemia, and examples of treatment of hypoglycemia ( rule). Discussed her current diet and [...] Delivery recommendations : - Recommend delivery at [id number] - Discuss delivery if estimated weight is [...] [email or web address] or by fax to: [phone] Devika Pulido PA-C Maternal- Medicine Office phone: [phone] Devika Pulido PA-C 04/25/25 1145 documented in this encounter [facility] 04-25-2025 Miscellaneous Notes EMERGENCY ROOM CLINICIAN CALLED PATIENT. NO ANSWER. LEFT VM ASKING THE PATIENT TO EMAIL US HER BLOOD GLUCOSE LOGS FOR HER UPCOMING APPOINTMENT WITH DEVIKA MARTINEZ. documented in this encounter [facility] 04-25-2025 Telephone encounter Note EMERGENCY ROOM CLINICIAN CALLED PATIENT. NO ANSWER. LEFT VM ASKING THE PATIENT TO EMAIL US HER BLOOD GLUCOSE LOGS FOR HER UPCOMING APPOINTMENT WITH DEVIKA TODAY. [facility] 04-20-2025 Miscellaneous Notes Left message for patient that [facility] provider reviewed blood sugar logs and no changes are needed at this time. Call back number provided. documented in this encounter [facility] 04-20-2025 Telephone encounter Note Left message for patient that [facility] provider reviewed blood sugar logs and no changes are needed at this time. Call back number provided. [facility] 04-18-2025 History of Present illness Narrative Reason [...] insulin syringe 29G X 1/2 0.5 mL [facility] Use 2 syringes in the morning for insulin dosage and 2 syringes in the Evening for insulin dosage. Total of 4 syringes daily needed. ALLERGIES No Known Allergies PROBLEMS Active Ambulatory Problems Diagnosis Date Noted No Active Ambulatory Problems Resolved Ambulatory Problems Diagnosis Date Noted No Resolved Ambulatory Problems Past Medical History: Diagnosis Date SAB (spontaneous ) ([facility]) 10/2021 HISTORY PAST MEDICAL HISTORY SOCIAL HISTORY Past Medical History: Diagnosis Date SAB (spontaneous ) ([facility]) 10/2021 Social History Tobacco Use Smoking [...] nursing note reviewed. Exam conducted with a tetryl screen operator present. Vitals: There is no height or weight on file to calculate BMI. BP: No LMP recorded. Patient is . ASSESSMENT & PLAN ICD-10-CM 1. Third trimester ([facility]) Z34.93 2. 30 weeks gestation of ([facility]) Z3A.30 Return OB: Patient presents today [...] Cain Donaldson DO documented in this encounter [facility] 04-12-2025 Miscellaneous Notes Called pt to discuss her insulin change. Devika Pulido reviewed her blood sugars and would like her to increase her lantus in the evening to 25 units. Pt verbalized understanding and will start tonight. She will send in new blood sugars next week. documented in this encounter [facility] 04-12-2025 Telephone encounter Note Called pt to discuss her insulin change. Devika Pulido reviewed her blood sugars and would like her to increase her lantus in the evening to 25 units. Pt verbalized understanding and will start tonight. She will send in new blood sugars next week. [facility] 04-11-2025 History of Present illness Narrative BG levels evaluated - insulin adjusted Devika Pulido PA-C 04/11/25 1234 documented in this encounter [facility] 03-30-2025 History of Present illness Narrative REASON FOR OFFICE VISIT: Video Visit via Real-time Synchronous Audiovisual Provider Location: [facility]- MEDICINE AT [address] [id number] Patient Location: Patient's home Video Visit Consent [...] that there are some limitations compared to vzoa-kf-[id number] evaluations. The patient consented to the presence [...] pain. +FM. She is being followed at [facility] due to GDMA2. States she is [...] , Rfl: blood-glucose meter [facility], 4 (four) times a day. Use to [...] TSH 3.31 11/24/2020 No results found for: [id number] Lab Results Component Value Date CREATININE 0.73 [...] values to us weekly by e-mail to: [email or web address] or by fax to: [phone] TIME OF CONSULTATION: 15 minutes with the patient, >50% in discussion and counseling, coordination of care which was [id number], review of records and communication back to referring provider. HOWARD Whitman 03/30/25 1344 documented in this encounter [employer] 03-30-2025 History of Present illness Narrative Reason [...] appointment. Patient continues to follow closely with [facility] and has telehealth visit today to review glucose logs. She continues on Lantus and doing well. No complaints today. Given orders for NST/BPP and has scheduled growth ultrasound with [facility]. Will obtain Hgb / hematocrit and platelets today. Documented by George Scherer NP on behalf of: George Scherer NP documented in this encounter [facility] 03-22-2025 Miscellaneous Notes Called pt and [...] sugars next week. documented in this encounter [facility] 03-22-2025 Telephone encounter Note Called pt and [...] send in new blood sugars next week. [facility] 03-16-2025 Miscellaneous Notes Received BG results and all but 4 are in target range. No pattern noted. Called and left message of praise for all efforts and to call if questions. To send next week again. No changes. Continue your current insulin dose for this week. documented in this encounter [facility] 03-16-2025 Telephone encounter Note Received BG results and all but 4 are in target range. No pattern noted. Called and left message of praise for all efforts and to call if questions. To send next week again. No changes. Continue your current insulin dose for this week. [facility] 03-11-2025 Miscellaneous Notes Summary: M Blood Glucose Log & Insulin Dose Change Called and spoke with Merna who did receive message from early this week about BG log reviewed and increased Lantus evening dose to 19 Units daily. Apologized for not returning call noting life has been busy, hectic with foster infant placement. Denied any questions. documented in this encounter [facility] 03-11-2025 Telephone encounter Note Summary: MFM Blood Glucose Log & Insulin Dose Change Called and spoke with Merna who did receive message from early this week about BG log reviewed and increased Lantus evening dose to 19 Units daily. Apologized for not returning call noting life has been busy, hectic with foster infant placement. Denied any questions. [facility]: 03-07-2025 Miscellaneous Notes Called pt [...] for this week. documented in this encounter [facility] 03-07-2025 Telephone encounter Note Called pt to discuss her insulin change for this week and received voicemail. Left her a message that Dr Wade reviewed her blood sugars and would like her to increase her lantus in the evening to 19 units. Asked her to please call back to verify she got this new insulin change for this week. [facility] 03-03-2025 History of Present illness Narrative [...] Cain Donaldson DO documented in this encounter [facility] 03-01-2025 Miscellaneous Notes Called and notified patient that Pat MCKOY reviewed her blood sugar log and would like her to increase her Lantus to 17 units in the evening. Encouraged patient to write down what she is eating when having elevations greater than 140. Patient verbalized understanding. documented in this encounter [facility] 03-01-2025 Telephone encounter Note Called and notified patient that Pat MCKOY reviewed her blood sugar log and would like her to increase her Lantus to 17 units in the evening. Encouraged patient to write down what she is eating when having elevations greater than 140. Patient verbalized understanding. [facility] 02-24-2025 History of Present illness Narrative REASON FOR OFFICE VISIT: Video Visit via Real-time Synchronous Audiovisual Provider Location: [facility]- MEDICINE AT [address] [phone] Patient Location: Patient's home Video [...] that there are some limitations compared to ypso-os-hkzu evaluations. The patient consented to the presence [...] chest pain. She is being followed at [facility] due to GDMA2. States she is [...] , Rfl: blood-glucose meter [facility], 4 (four) times a day. Use to [...] Rfl: lancets (LANCETS,ULTRA THIN) [facility], Use to check blood sugar 4 times daily. Fasting in the morning, and 1 hour after each meal., Disp: , Rfl: PNV no.153/FA/om3/dha/epa/fish ( GUMMIES ORAL), Take 2 tablets by mouth in the morning., Disp: , Rfl: LABS: Lab Results Component Value Date CREATININE 0.73 01/06/2016 Lab Results Component Value Date TSH 3.31 11/24/2020 No results found for: [id number] Lab Results Component Value Date CREATININE 0.73 [...] can be done through close contact with [facility] diabetic: via weekly glucose review either by [...] [email or web address] or by fax to: [phone] TIME OF CONSULTATION: 25 minutes with the patient, >50% in discussion and counseling, coordination of care which was [id number], review of records and communication back to referring provider. HOWARD Whitman 02/24/25 1333 documented in this encounter [facility] 02-17-2025 Miscellaneous Notes Notified patient by phone of low risk CFDNA results. My direct phone number was given in case any questions arise. documented in this encounter [facility] 02-17-2025 Telephone encounter Note Notified patient by phone of low risk CFDNA results. My direct phone number was given in case any questions arise. [facility] 02-15-2025 Miscellaneous Notes Called and spoke with patient regarding blood sugar log. Noted 6 elevations after insulin change to Lantus last week- 3 fastings and 3 PP (1 was 140). Patient reports last 2 days fasting was 85 and 93. Continues to try dietary changes. Encouraged patient to send in another log next week. documented in this encounter [facility] 02-15-2025 Telephone encounter Note Called and spoke with patient regarding blood sugar log. Noted 6 elevations after insulin change to Lantus last week- 3 fastings and 3 PP (1 was 140). Patient reports last 2 days fasting was 85 and 93. Continues to try dietary changes. Encouraged patient to send in another log next week. [facility] 02-08-2025 History of Present illness Narrative Headache/epigastric [...] clinic Have you been seen here at [facility] in a previous ? No Recent ER visits or hospitalizations? No Bring blood sugar log or meter with you today? (Please bring them with you for every visit at [facility]) N/A Flu vaccine (Sep-January)? Any concerns that [...] 5day embryo transfer on 10/07/2024, JANIYA 06/25/2025. PHOTOLITHOGRAPHIC STRIPPER , no genetic testing Prediabetes (A1c 5.9% [...] Medical History: Diagnosis Date Depression Gestational diabetes [place] product of in vitro fertilization (IVF) 2024 Suicide attempt ([facility]) SURGICAL HISTORY: Past Surgical History: Procedure Laterality [...] , Rfl: blood-glucose meter [facility], 4 (four) times a day. Use to [...] Rfl: lancets (LANCETS,ULTRA THIN) [facility], Use to check blood sugar 4 times [...] TESTS AND ULTRASOUND REPORTS: Referral records and [facility] chart were reviewed Pertinent Ultrasound findings are see formal ultrasound report. PHYSICAL EXAMINATION: BP 125/80 (BP Site: Right Arm, BP Postition: Sitting) Pulse 95 Ht 157.5 cm (5' 2.01 ) Wt 104.8 kg (231 lb) BMI 42.24 kg/m Well-appearing in no distress. Respirations not labored, speaking comfortably in full sentences Gravid abdomen OVERALL ASSESSMENT -Fannie Whtie is a pleasant 29 y.o. at 20w4d [...] overall, although a single choroid plexus cyst (PHOTOLITHOGRAPHIC STRIPPER) is visualized. We discussed this finding. CPCs [...] send in blood glucose logs weekly to [facility] Recommend baseline HELLP labs including CBC, CMP, urine protein creatinine ratio, through primary OB Incomplete level 2 anatomy ultrasound echocardiogram, attempt completion in 4 weeks with MFM Recommend growth ultrasounds every 4 weeks following completion of level 2 anatomy ultrasound, through primary OB Recommend twice weekly testing starting at 32 weeks gestation, through primary OB Delivery recommendations : Recommend delivery at [id number] Discuss delivery if estimated weight is >4500g [...] developing diabetes later on. Monitor for depression [facility] office follow up already scheduled in 3 weeks DISPOSITION: At this point the patient is in complete care of her retail specialist. Patient does have ultrasound and office visit [...] Referring and communicating with other health home health care coordinator (not separately reported) Documenting clinical information in the electronic or other health record Jaida Chadwick MD Maternal- Medicine [facility] [address] [place] [address] [facility], the CDC, and other organizations representing maternal and public health professionals recommend that , , and lactating people and those considering receive the COVID-19 vaccination. Vaccination is the best method to reduce maternal and complications of SARS-CoV-2 infection. This document was created with [employer] technology. Though I make every effort to review the dictation as it is transcribed, on occasion the spoken word can be misinterpreted by the technology leading to inappropriate words, phrases, or sentences. This note is addressed to the requesting provider as a consultation for clinical guidance. Specific medical abbreviations are occasionally used and those are generally approved by the [place]?Board of?Obstetrics and?Gynecology?as well as?Shaji s abbreviations. The above plan of care was based solely on the diagnoses for which a consultation was requested. ?More frequent testing may be indicated based on her other medical/obstetrical conditions. The management of other or medical conditions is beyond the scope of requested consultation and will continue to be followed by the primary retail specialist or primary care provider. Note to patient: [...] Patient tolerated well. documented in this encounter [facility] 02-03-2025 Miscellaneous Notes Received call from Nurse at Dr Donaldson's office who states they do not have any records of genetic testing. Watch Supervisor places call to Dr Pena's office at [facility] to inquire if they have any records of genetic testing for this - they also do not have any record of genetic testing. documented in this encounter [facility] 02-03-2025 Telephone encounter Note Received call from Nurse at Dr Donaldson's office who states they do not have any records of genetic testing. Watch Supervisor places call to Dr Pena's office at [facility] to inquire if they have any records of genetic testing for this - they also do not have any record of genetic testing. [facility] 02-03-2025 Miscellaneous Notes Left voicemail for BELA Gamboa at Dr Donaldson's office requesting genetic testing that was completed prior to IVF be faxed over to my attention. documented in this encounter [facility] 02-03-2025 Telephone encounter Note Left voicemail for BELA Gamboa at Dr Donaldson's office requesting genetic testing that was completed prior to IVF be faxed over to my attention. [facility] 01-26-2025 History of Present illness Narrative Headache/epigastric [...] YES Have you been seen here at [facility] in a previous ? NO Recent ER visits or hospitalizations? NO Bring blood sugar log or meter with you today? (Please bring them with you for every visit at [facility]) YES, SEE LOGS. Flu vaccine (Sep-January)? YES [...] pain. +FM. She is being followed at [facility] due to GDMA2. States she is [...] TSH 3.31 11/24/2020 No results found for: [id number] Lab Results Component Value Date CREATININE 0.73 [...] baby. Little research has been done on manager long term care effects of Metformin exposure to the fetus. [...] us weekly by e-mail to: [email or web address] or by fax to: [phone] TIME OF CONSULTATION: 35 minutes with the patient, >50% in discussion and counseling, coordination of care which was [id number], review of records and communication back to referring provider. 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 Current Exercise program walking Who prepares the meal pt Who purchase food at your home? pt Equipment use for cooking/food storage has all Food Assistance(Ex.WIC, Food [employer]) knows about Dining out Yes 1-2 times [...] care for you: OB Provider Family Doctor Supervisor Core Drilling Name: Mendoza Name: No primary care provider [...] syringe by miscellaneous route. lancets (LANCETS,ULTRA THIN) [facility] Use to check blood sugar 4 times [...] demonstration Is there anything about your culture, jehovah's witness, or personal beliefs we need to know about to care for you: none Primary Language spoken: Ethiopian [22] Primary Language for learning: Ethiopian Are you currently in a relationship where you are physically hurt, threatened or made to fee afraid? [] Yes [x] No Business Systems Developer needed? [] Yes [x] No Marital status/Living [...] If yes, where: On thge following scale, [place] the number, which describes your current level [...] was 60min. . documented in this encounter [facility] 01-26-2025 Instructions Sonya Lomax RN - 01/26/2025 [...] HOURS WHILE AWAKE documented in this encounter [facility] 01-20-2025 History of Present illness Narrative Reason for Appointment: Patient ID: Fannie White is a 29 y.o. female who presents for Routine Visit Patient presents today for Return OB appointment. MEDICATIONS Current Outpatient Medications Medication Instructions Alcohol Swabs (Alcohol Prep Pad) 70 % pads 1 Pad, Topical, Daily, Use four times daily to check FSBS. Blood Glucose Monitoring Suppl (Attensity Glucometer) w/Device kit 1 kit, Does not [...] nursing note reviewed. Exam conducted with a tetryl screen operator present. Vitals: There is no height [...] of: LEELEE Keita documented in this encounter [facility] 12-29-2024 Miscellaneous Notes I left a message for pt to call to schedule her us/ and consult, I will call her again documented in this encounter [facility] 12-29-2024 Telephone encounter Note I left a message for pt to call to schedule her us/ and consult, I will call her again [facility] [employer] 12-23-2024 History of Present illness Narrative Reason [...] nursing note reviewed. Exam conducted with a tetryl screen operator present. Vitals: There is no height [...] or undercooked meat, and stay away from [facility]. Patient has been consulted regarding any further do's and don'ts of . Patient voiced understanding and all questions and concerns were answered. Patient has done 4 rounds of invitro to conceive this . 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 Patient will be referred to [facility] and can discuss medication at that time [...] Cain Donaldson DO documented in this encounter [facility] 11-25-2024 History of Present illness Narrative [...] or undercooked meat, and stay away from [facility]. Patient has also been advised to not change litter boxes and eat 6 small meals a day. Patient has been consulted regarding the do's and don'ts of . Patient was given labs and all questions and concerns were answered. Pt declined the [employer] gender/genetics form. Pt did state she is [...] Evaluation note No assessment inform ation available [facility] Work Phone: Evaluation note Diagnosis Missed menses [...] fertilization, antepartum documented in this encounter [facility]* Diagnosis Well woman exam with routine gynecological exam Routine gynecological examination 17 weeks gestation of Second trimester state, incidental Exposure to STD Vaginal discharge Leukorrhea, not specified as infective documented in this encounter [facility]* Diagnosis Insulin controlled gestational diabetes mellitus (GDM) in second trimester- Primary documented in this encounter [facility]* Diagnosis Insulin controlled gestational diabetes mellitus (GDM) in second trimester documented in this encounter [facility]* Diagnosis Insulin controlled gestational diabetes [...] recent episode depressed documented in this encounter [facility]* Diagnosis Insulin controlled gestational diabetes mellitus (GDM) in second trimester- Primary Choroid plexus cyst of fetus affecting care of mother, antepartum, single or unspecified fetus Heterozygous factor V Leiden affecting in second trimester, antepartum Severe obesity due to excess calories affecting , antepartum (CMS-HCC) documented in this encounter [facility]* Diagnosis Insulin controlled gestational diabetes mellitus (GDM) in second trimester- Primary Recurrent major depressive disorder, in partial remission Bipolar 1 disorder (CMS-HCC) Prediabetes in mother during documented in this encounter [facility]* Diagnosis Insulin controlled gestational diabetes mellitus (GDM) in second trimester Prediabetes in mother during documented in this encounter [facility]* Diagnosis 23 weeks gestation of Second trimester state, incidental induced hypertension, antepartum Transient hypertension of , antepartum Insulin controlled gestational diabetes mellitus (GDM) during , antepartum documented in this encounter [facility]* Diagnosis Second trimester state, incidental 27 weeks gestation of Gestational diabetes mellitus (GDM), antepartum, gestational diabetes method of control unspecified Factor 5 Leiden mutation, heterozygous (CMS/HCC) Conceived by in vitro fertilization documented in this encounter [facility] Healthcare[facility]* Diagnosis Insulin controlled gestational diabetes mellitus (GDM) in second trimester- Primary Recurrent major depressive disorder, in partial remission Prediabetes in mother during documented in this encounter [facility] System[facility]* Diagnosis Insulin controlled gestational diabetes mellitus (GDM) in second trimester Prediabetes in mother during [facility] Diagnosis Third trimester (HHS-HCC) state, incidental 30 weeks gestation of (HHS-HCC) documented in this encounter [facility] Healthcare[facility]* Diagnosis Insulin controlled gestational diabetes mellitus (GDM) in third trimester- Primary [facility]* Diagnosis size inconsistent with dates (HHS-HCC)- Primary Third trimester (HHS-HCC) state, incidental 32 weeks gestation of (HHS-HCC) Conceived by in vitro fertilization Factor 5 Leiden mutation, heterozygous (HHS-HCC) Insulin controlled gestational diabetes mellitus (GDM) during , antepartum (HHS-HCC) documented in this encounter [facility]* Diagnosis Insulin controlled gestational diabetes mellitus (GDM) in second trimester- Primary documented in this encounter [facility] System[facility]* Diagnosis Insulin controlled gestational diabetes mellitus (GDM) in second trimester- Primary documented in this encounter [facility]* Diagnosis 34 weeks gestation of (HHS-HCC) Third trimester (HHS-HCC) state, incidental Conceived by in vitro fertilization Factor 5 Leiden mutation, heterozygous (HHS-HCC) Insulin controlled gestational diabetes mellitus (GDM) during , antepartum (HHS-HCC) Non-recurrent acute serous otitis media of left ear documented in this encounter [facility] HealthcareInstructionsNot on filedocumented in this [facility] System[facility]ructionsNot on filedocumented in this encounterPro[facility] SystemInstructionsNot on filedocumented in this encounterProMedica Health SystemInstructionsNot on filedocumented in this [facility] InstructionsNot on filedocumented in this [facility] InstructionsNot on filedocumented in this [facility] InstructionsNot on filedocumented in this [facility] InstructionsNot on filedocumented in this [facility] InstructionsNot on filedocumented in this [facility] InstructionsNot on filedocumented in this encounter[facility] InstructionsNot on filedocumented in this encounterSum[facility] InstructionsNot on filedocumented in this encounterSum[facility] InstructionsNot on filedocumented in this encounterSumma [facility] Chief Complaint and Reason for Visit Chief [...] and content) DATE CREATED AUTHOR 04/18/2024 [facility] DATE CREATED AUTHOR AUTHOR'S ORGANIZ ATION 03/11/2025 [facility] DATE CREATED AUTHOR AUTHOR'S ORGANIZ ATION 04/16/2025 [facility] DATE CREATED AUTHOR AUTHOR'S ORGANIZ ATION 04/26/2025 [facility] DATE CREATED AUTHOR AUTHOR'S ORGANIZ ATION 05/19/2025 [facility] EPIC DATE CREATED AUTHOR AUTHOR'S ORGANIZ ATION 05/20/2025 [facility] Reason for Visit (unrecogniz ed section and content) Reason Comments Amenorrhea Reason Comments Routine Visit Reason Comments Gestational Diabetes Specialty Diagnoses / Procedures Referred By Otis t Referred To Contact Maternal and Medicine Diagnoses Insulin controlled gestational diabetes mellitus (GDM) in second trimester Cain Donaldson DO Phone: tel: fax: Maternal- Medicine at [facility] [address] [facility] [place] [address] Phone: tel: fax: Referral ID Status Reason Start Date Expiration Date Visits Requested Visits Authorized [id number] Pending Review Specialty Services Required 01/11/2025 01/11/2026 [...] BE BASED ON THE PRIMARY CLINICAL RECORDS. [facility]. provides no warranty or guarantee of the accuracy or completeness of information in this document.
== END 2025-05-19 17:40 | disposition home or self-care (01) ==
LOC: FBC 17:42 → FBCO 05-20 07:35
PROVIDERS: PCP Obstetrics & Gynecology; Visit Provider Obstetrics & Gynecology
DX: O26.893 Other specified pregnancy related conditions, third trimester (principal); Z3A.34 34 weeks gestation of pregnancy
CPT/HCPCS: 59025

== ENCOUNTER 2025-05-24 17:01 | Outpatient (OUT) | payer BC, SELFPAY ==
--- OUTSIDE RECORDS SUMMARY | 2025-01-21 11:10 | XMS_ITS | Continuity of Care Document ---
Author Organization [facility] Address [address] [place] [address] Phone Care Team Providers Care Nfl Player Name Role Phone Miguel Rios Unavailable Unavailable [...] Diagnoses Date Provider Providers Copied on Encounter [facility], [address] [place] [address], [id number] , [place] tel: [phone] [facility] No Information 5 Visci DO Rivera. [address] [place] [address], [id number] , [place]. tel: [phone] [facility], [address] [place] [address], [id number] , [place] tel: [phone] [facility] Encounter for screening for respiratory tuberculosis 5 Visci DO Miguel. [address] [place] [address], [id number] , [place]. tel:[phone] [facility], [address] [place] [address], [id number] , [place] tel: [phone] [facility] No Information 4 Visci DO Miguel. [address] [place] [address], [id number] , [place]. tel: [phone] [facility], [address] [place] [address], [id number] , [place] tel:+ [phone] [facility] Lab Draw (chief complaint) Other specified disorders of pancreatic internal secretionSubclinical iodine-deficiency hypothyroidismEncount er for screening for other viral diseasesEncounter for screening for other infectious disease 4 Cynthia White. [address] [place], [place], [id number] , [place]. tel: [phone] [facility], [address] [place], [place], [id number] , [place] tel: [phone] [facility] lab draw (chief complaint) Encounter for screening for other viral diseases 4 Cynthia White. [address] [place], [place], 545269035 , [place]. tel: [phone] [facility], [address] [place], [place], [id number] , [place] tel: [phone] [facility] No Information 4 Cynthia White. [address] [place], [place], [id number] , [place]. tel: [phone] [facility], [address], [place], [id number] , [place] tel: [phone] [facility] Encounter for screening for respiratory tuberculosis 4 Cynthia White. [address] [place], [place], 540846814 , [place]. tel: [phone] [facility], [address], [place], 312304630 , [place] tel: [phone] [facility] Lab draw (chief complaint) Blood test prior to procedure 4 Cynthia White. [address], [place], 655709200 , [place]. tel: [phone] Referring Provider: Tenisha Leon AR. [facility], [address], [place], [id number] , [place] tel: [phone] [facility] No Information 3 Cynthia White. [address] [place], [place], [id number] , [place]. tel: [phone] [facility], [address], [place], 082988571 , [place] tel: [phone] [facility] COVID Test (chief complaint) Encounter for screening for COVID-19 3 Cynthia White. [address] [place], [place], 909335887 , [place]. tel: [phone] [facility], [address], [place], 233336568 , [place] tel: [phone] [facility] Lab Draw (chief complaint) Encounter for antibody response examination 3 Cynthia White. [address] [place], [place], 661838246 , [place]. tel: [phone] [facility], [address] [place] [address], [id number] , [place] tel: [phone] [facility] lab (chief complaint) Other specified disorders of pancreatic internal secretion 3 Cynthia White. [address] [place], [place], 688747527 , [place]. tel: [phone] [facility], [address] [place] [address], [id number] , [place] tel: [phone] [facility] Lab draw (chief complaint) Blood test prior to procedure 3 Cynthia White. [address] [place], [place], 633720693 , [place]. tel: [phone] [facility], [address] [place] [address], [id number] , [place] tel: [phone] [facility] lab draw (chief complaint) Endocrine disorder 3 Cynthia White. [address] [place], [place], 497082150 , [place]. tel: [phone] [facility], [address] [place] [address], [id number] , [place] tel: [phone] [facility] Encounter for screening for COVID-19 3 Visci DO Miguel. [address] [place], [place], 866489049 , [place]. tel: [phone] [facility], [address], [place], 316402708 , [place] tel: [phone] [facility] Lab draw (chief complaint) Blood test prior to procedureEncounter for screening for COVID-19 3 Visci DO Miguel. [address] [place], [place], 637200830 , [place]. tel: [phone] [facility], [address] [place], [place], 926843425 , [place] tel: [phone] [facility] No Information 3 Visci DO Miguel. [address] [place], [place], 287725306 , [place]. tel: [phone] [facility], [address] [place], [place], 329940451 , [place] tel: [phone] [facility] No Information 3 Visci DO Miguel. [address] [place], [place], 861517521 , [place]. tel: [phone] [facility], [address], [place], 276590389 , [place] tel: [phone] [facility] No Information 2 Visci DO Miguel. [address] [place], [place], [id number] , [place]. tel: [phone] [facility], [address], [place], 668708312 , [place] tel: [phone] [facility] No Information 2 Visci DO Miguel. [address] [place], [place], 945243803 , [place]. tel: [phone] [facility], [address], [place], 700002850 , [place] tel: [phone] [facility] No Information 2 Visci DO Miguel. [address] [place], [place], 481888863 , [place]. tel: [phone] [facility], [address] [place], [place], 579164847 , [place] tel: [phone] [facility] Encounter for screening for respiratory tuberculosis 2 Visci DO Miguel. [address] [place], [place], 931976812 , [place]. tel: [phone] [facility], [address], [place], 583672732 , [place] tel: [phone] [facility] Encounter for screening for respiratory tuberculosis 2 Visci DO Miguel. [address] [place], [place], 498569770 , [place]. tel: [phone] [facility], [address], [place], 186833285 , [place] tel: [phone] [facility] Encounter for screening for respiratory tuberculosis 2 Visci DO Miguel. [address] [place], [place], 962930787 , [place]. tel: [phone] [facility], [address], [place], 205169375 , [place] tel: [phone] [facility] No Information 1 Visci DO Miguel. [address] [place], [place], 142245098 , [place]. tel: [phone] [facility], [address], [place], 480897661 , [place] tel: [phone] [facility] No Information 1 Visci DO Miguel. [address] [place], [place], 150627827 , [place]. tel: [phone] [facility], [address], [place], 446491795 , [place] tel: [phone] [facility] No Information 1 Visci DO Miguel. [address] [place], [place], 868318545 , [place]. tel:[phone] Family History Family Member Type Diagnosis Age [...] Insurance type Covered democrat ID Authoriza tion(s) [place] [employer] [id number] [place] [employer] [id number] [place] [id number] [place] [id number] [place] [id number] [place] [id number] [place] [id number] Social History Type Description Quantity Date Captured [...] on M due Goal Tdap due Goal Depression screening. [...] Goal PRAPARE ASSESSMENT. Due on due Goal HPV. Due on [...] du e Goal Influenza vaccine. Due on Tx due Goal Unhealthy drug use screening . [...] Influenza vaccine. Due on Se due Goal Tdap due Goal Hep A. [...] on 2031 due Goal Tdap due Goal PRAPARE ASSESSMENT. [...] du e Goal Influenza vaccine. Due on Tx due Goal Tdap due Goal PAP. Due on due Goal PRAPARE ASSESSMENT. Due on M due Goal Depression screening. Due on due Goal RLP. Due on due Goal Tdap Vaccine. Due on 2031 due Goal PAP. Due on due Goal Influenza vaccine. Due on Tx due Goal Depression screening. Due on due Goal Tdap due Goal PRAPARE ASSESSMENT. Due on M due Goal Hep A. Due on du e Goal RLP. Due on due Goal Tdap Vaccine. Due on 2031 due Goal Depression screening. Due on due Goal Tdap Vaccine. Due on 2031 due Goal Hep A. Due on du e Goal Influenza vaccine. Due on Tx due Goal Tdap due Goal PRAPARE ASSESSMENT. [...]
--- OUTSIDE RECORDS SUMMARY | 2025-05-10 08:00 | XMS_ITS | Encounter Summary ---
Author Organization [facility] Address [address] [place] [address] Care Team Providers Care Legal Archivist Name Role Phone Unavailable Primary Care Provider Unavailabl e Encounter Details Date Type Department Care Team (Latest Contact Info) Description 05/10/2025 8:00 AM EDT Ancillary Procedure [facility] BCP OB [address] [place] [address] Insulin controlled gestational diabetes mellitus (GDM) during , antepartum ([facility]); Gestational diabetes mellitus (GDM), antepartum, gestational diabetes method of control unspecified ([facility]) Social History Tobacco Use Types Packs/Day Years [...] 8:50 AM EDT Routine [facility] BCP OB [facility] [place] [address] Christy Schwartz PA [address] [place] [address] 05/30/2025 8:30 AM EDT Routine [facility] BCP OB [address] [place] [address] Cain Donaldson DO [address] [place] [address] [place] [address] 06/06/2025 8:40 AM EDT Routine [facility] BCP OB [address] [place] [address] [place] [phone] Christy Schwartz PA [address] [place] [address] [place], [place] [id number] 06/13/2025 8:30 AM EDT Routine [facility] BCP OB [address] [place] [address] [place] [address] Christy Schwartz PA [address] [place] [address] [place], [place] [id number] documented as of this encounter Goals Goal [...] gestational diabetes mellitus (GDM) during , antepartum ([facility]) Gestational diabetes mellitus (GDM), antepartum, gestational diabetes method of control unspecified ([facility]) documented in this encounter Additional Health Concerns Active Problems Noted Date Diagnosed Date OB Reminders 11/26/2024 documented as of this encounter
--- OUTSIDE RECORDS SUMMARY | 2025-05-16 08:30 | XMS_ITS | Encounter Summary ---
Author Organization [facility] Address [address] [facility] [place] [address] Care Team Providers Care Criminal Justice Program Director Name Role Phone Unavailable Primary Care Provider Unavailabl e Reason for Visit * Reason Comments Routine Visit Encounter Details Date Type Department Care Team (Latest Contact Info) Description 05/16/2025 8:30 AM EDT Routine [facility] BCP [address] [facility] [place] [address] Cain Donaldson, DO [address] [facility] [address] Kelsey Prieto, [id number] 34 weeks gestation of ([facility]); Third trimester ([facility]); Conceived by in vitro fertilization; Factor 5 Leiden mutation, heterozygous ([facility]); Insulin controlled gestational diabetes mellitus (GDM) during , antepartum ([facility]); Non-recurrent acute serous otitis media of left [...] to check FSBS. Blood Glucose Monitoring Suppl ([employer] Glucometer) w/Device kit 1 kit, Does not [...] Medical History: Diagnosis Date SAB (spontaneous ) ([facility]) 10/2021 HISTORY PAST MEDICAL HISTORY SOCIAL HISTORY Past Medical History: Diagnosis Date SAB (spontaneous ) ([facility]) 10/2021 Social History Tobacco Use Smoking status: [...] nursing note reviewed. Exam conducted with a electric motor and generator assembler present. Vitals: Estimated body mass index is 43.71 kg/m?? as calculated from the following: Height as of 04/18/25: 5' 2 . Weight as of this encounter: 239 lb. BP: 120/70 No LMP recorded. Patient is . ASSESSMENT & PLAN ICD-10-CM 1. 34 weeks gestation of ([facility]) Z3A.34 POCT urinalysis dipstick manually resulted Urine culture 2. Third trimester ([facility]) Z34.93 POCT urinalysis dipstick manually resulted 3. Conceived by in vitro fertilization Z78.9 Urine culture 4. Factor 5 Leiden mutation, heterozygous ([facility]) D68.51 5. Insulin controlled gestational diabetes mellitus (GDM) during , antepartum ([facility]) O24.414 Patient presents today for a routine [...] Routine [facility] BCP OB [address] [place] [phone] Christy Schwartz PA [address] [place], [place] [id number] 05/30/2025 8:30 AM EDT Routine [facility] BCP OB [address] [place] [address] [place] [phone] Cain Donaldson DO [address] [facility] [address] [place], [place] [id number] 06/06/2025 8:40 AM EDT Routine [facility] BCP OB [address] [place] [address] [place] [address] Christy Schwartz PA [address] [facility] [address] [place], [place] [id number] 06/13/2025 8:30 AM EDT Routine [facility] BCP OB [address] [place] [address] [place] [address] Christy Schwartz PA [address] [place] [address] Dr [place], [place] [id number] Scheduled Orders Name Type Priority Associated Diagnoses Orde r Schedule Urine culture Microbiology Routine 34 weeks gestation of ([facility]) Conceived by in vitro fertilization Ordered: 05/16/2025 documented as of this encounter Goals Goal Patient Goal Type Associated Problems Recent Progress Patient-Stated? Author Reminders Care Plan OB Reminders No Open Scheduling, Background documented as of this encounter Procedures Procedure Name Priority Date/Time Associated Diagnosis Comments POCT URINALYSIS DIPSTICK Routine 05/16/2025 8:43 AM EDT 34 weeks gestation of ([facility]) Third trimester ([facility]) documented in this encounter Results * (ABNORMAL) [...] Visit Diagnoses Diagnosis 34 weeks gestation of ([facility]) Third trimester ([facility]) state, incidental Conceived by in vitro fertilization Factor 5 Leiden mutation, heterozygous ([facility]) Insulin controlled gestational diabetes mellitus (GDM) during , antepartum ([facility]) Non-recurrent acute serous otitis media of left ear documented in this encounter Additional Health Concerns Active Problems Noted Date Diagnosed Date OB Reminders 11/26/2024 documented as of this encounter
--- OUTSIDE RECORDS SUMMARY | 2025-05-23 13:30 | XMS_ITS | Encounter Summary ---
Author Organization [facility] tem Address [id number] [address] [place] [address] Care Team Providers Care Derrick Engineer Name Role Phone Unavailable Primary Care Provider Unavailabl e Encounter Details Date Type Department Care Team (Late st Contact Info) Description 05/23/2025 1:30 PM EDT Telemedicine Maternal- Medicine at [facility] [address] [place] [phone] Devika Pulido, PAMoniqueC [address] [address] Insulin controlled gestational diabetes mellitus (GDM) in [...] Progress Notes * Devika Pulido PA-C - 05/23/2025 1:30 PM EDT Maternal- Medicine Consultation VIDEO Patient is present at home, provider present at [facility] HISTORY OF PRESENT ILLNESS: Kevin Conley is a 29 y.o. female at 35w2d due on Estimated Date of Delivery: 06/25/25 complicated by prediabetes with early onset GDM, PCOS, Heterozygous Factor V Leiden, h/o bipolar, IVF . Patient is feeling well today. She denies contractions, vaginal bleeding, leaking fluid. She appreciates movement. Patient denies headache, visual symptoms, right upper abdominal pain, increasein edema, SOB, chest pain. BG log review: F: 66-98, #1 >95 All post prandials under 140 except #1 at 143, had noodles, chicken, zuccini Denies any values <60 day or night [...] route., Disp: , Rfl: lancets (LANCETS,ULTRA THIN) [facility], Use to check blood sugar 4 times [...] after 28 weeks - Last growth done with primary team 05/10: 46-50th%ile per patient - Recommend the following for testing, which can be done with primary OB: - NST twice weekly and ZITA once weekly at 32 weeks, increase to twice weekly NST, once weekly ZITA at 36 weeks - Delivery recommendations : - Recommend delivery at [id number] - Discuss delivery if estimated weight is [...] symptoms, preeclampsia sign/symptoms, and movement precautions reviewed. No further follow up with Maternal- Medicine indicated. I asked her to keep sending values to us weekly by e-mail to: or by fax to: [phone] Devika Pulido PA-C Maternal- Medicine Office phone: [phone] Devika Pulido PA-C 05/23/25 1608 documented in this encounter Plan of Treatment Not on file documented as of this encounter Visit Diagnoses Diagnosis Insulin controlled gestational diabetes mellitus (GDM) in third trimester- Primary documented in this encounter Additional Health Concerns Assessment Noted Time PHQ-9 Depression Total Score: 2 07/03/20 16 9:00 AM EDT documented as of this encounter
--- OUTSIDE RECORDS SUMMARY | 2025-05-24 17:03 | XMS_ITS | Encounter Summary ---
Author Organization [facility] Address [address] [place] [address] Care Team Providers Care Mailhouse Operator Name Role Phone Unavailable Primary Care Provider Unavailabl e Encounter Details Date Type Department Care Team (Late Contact Info) Description 01/10/2025 Abstract [facility] [address] [place] [address] Cain Donaldson DO [address] [place] [address] Dr Kelsey Prieto, [facility] Social [...] [address] [place] [address] Christy Schwartz PA [address] [place] [address] [place], [place] [id number] 05/30/2025 8:30 AM EDT Routine [facility] [address] [facility] [place] [address] Cain Donaldson DO [address] [place] [address] 06/06/2025 8:40 AM EDT Routine [facility] [address] [place] [address] [place] [phone] Christy Schwartz PA [address] [place], [place] [id number] 06/13/2025 8:30 AM EDT Routine [facility] [address] [place] [address] [place] [phone] Christy Schwartz PA [address] [place], [place] [id number] documented as of this encounter Goals Goal Patient Goal Type Associated Problems Recent Progress Patient-Stated? Author Reminders Care Plan OB Reminders No Open Scheduling, Background documented as of this encounter Visit Diagnoses Not on filedocumented in this encounter Additional Health Concerns Active Problems Noted Date Diagnosed Date OB Reminders 11/26/2024 documented as of this encounter
--- OUTSIDE RECORDS SUMMARY | 2025-05-24 17:03 | XMS_ITS | Clinical Summary ---
Author Organization [employer] tem Address [facility]-[id number] [address] [place] [address] Care Team Providers Care Etcher Electrolytic Name Role Phone Unavailable Primary Care Provider [...] Encounters Date Type Department Care Team Description 05/23/2025 1:30 PM EDT Telemedicine Maternal- Medicine at [facility] [address] [place] [address] Devika Pulido, PA-Pat Insulin controlled gestational diabetes mellitus (GDM) in third trimester (Primary Dx) 05/23/2025 Travel 05/17/2025 Telephone Maternal- Medicine at [facility] [address] [place] [address] Sonya Lomax, NARESH 05/11/2025 Telephone Maternal- Medicine at [facility] [address] [place] [address] Belen Fowler, ANNETTE 05/03/2025 Telephone Maternal- Medicine at [facility] [address] [place] [address] Shoshana Berger, ANNETTE 04/25/2025 11:30 AM EDT Telemedicine Maternal- Medicine at [facility] [address] [place] [address] Devika Pulido PA-Pat Insulin controlled gestational diabetes mellitus (GDM) in third trimester (Primary Dx) 04/25/2025 Travel 04/25/2025 Telephone Maternal- Medicine at [facility] [address] [place] [address] Giselle Cheng CMA 04/20/2025 Telephone Maternal- Medicine at [facility] [address] [place] [address] Aissatou Stoner RN 04/14/2025 Travel 04/12/2025 Telephone Maternal- Medicine at [facility] [address] [place] [address] Sonya Lomax, NARESH 04/11/2025 Orders Only Maternal- Medicine at [facility] [address] [place] [address] Devika Pulido, PA-C 04/11/2025 Remote Patient Monitoring Maternal- Medicine at [place] [address] [place] [address] Devika Pulido, PA-C Insulin controlled gestational diabetes mellitus (GDM) in second trimester; Prediabetes in mother during 03/30/2025 1:30 PM EDT Telemedicine Maternal- Medicine at [facility] [address] [place] [address] Sintia Martinez, BOOK PUBLISHER-PROJECT LEADER Insulin controlled gestational diabetes mellitus (GDM) in second trimester (Primary Dx); Recurrent major depressive disorder, in partial remission; Prediabetes in mother during 03/30/2025 Travel 03/22/2025 Telephone Maternal- Medicine at [facility] [address] [place] [address] Sonya Lomax, NARESH 03/16/2025 7:48 AM EDT - 03/16/2025 11:59 PM EDT Hospital Encounter [facility] [address] [place] [address] Insulin controlled gestational diabetes mellitus (GDM) in second trimester; Choroid plexus cyst of fetus affecting care of mother, antepartum, single or unspecified fetus; Heterozygous factor V Leiden affecting in second trimester, antepartum; Severe obesity due to excess calories affecting , antepartum ([facility] Discharge Disposition: Home 03/16/2025 Telephone Maternal- Medicine at [facility] [address] [place] [address] Sonya Lomax, NARESH 03/15/2025 Travel 03/11/2025 Telephone Maternal- Medicine at [facility] [address] [place] [address] Naomy Thompson RN 03/07/2025 Telephone Maternal- Medicine at [facility] [address] [place] [address] Sonya Lomax, NARESH 03/07/2025 Orders Only Maternal- Medicine at [facility] [address] [place] [address] Cole Wade MD Insulin controlled gestational diabetes mellitus (GDM) in second trimester; Prediabetes in mother during 03/01/2025 Telephone Maternal- Medicine at [facility] [address] [place] [address] Valerie Le, NARSEH 02/28/2025 Orders Only Maternal- Medicine at [facility] [address] [place] [address] Devika Pulido, HOLLYC Insulin controlled gestational diabetes mellitus (GDM) in second trimester; Prediabetes in mother during 02/24/2025 1:00 PM EDT Telemedicine Maternal- Medicine at [facility] [address] [place] [address] Sintia Martinez, BOOK PUBLISHER-RHONDA Insulin controlled gestational diabetes mellitus (GDM) in second trimester (Primary Dx); Recurrent major depressive disorder, in partial remission; Bipolar 1 disorder ([facility]); Prediabetes in mother during 02/24/2025 Travel 02/23/2025 Travel from Last 3 Months Family History [...] 02/08/2025 9:34 AM EDT Plan of Treatment Health Maintenance Due Date [...] EDT Encounter for other screening follow-up US MFM OB FOLLOW-UP, 1 FETUS Routine 03/16/2025 9:20 AM EDT Insulin controlled gestational diabetes mellitus (GDM) in second trimester Choroid plexus cyst of fetus affecting care of mother, antepartum, single or unspecified fetus Heterozygous factor V Leiden affecting in second trimester, antepartum Severe obesity due to excess calories affecting , antepartum ([facility]) PAP SMEAR Routine 11/24/2020 6:26 AM EST Encounter for gynecological examination without abnormal finding from Last 3 Months or Most Recently Relevant to Health Maintenance Results * US MFM OB FOLLOW-UP, 1 FETUS (04/14/2025 9:05 AM EDT) Only the most recent of2 resultswithin the time period is included. Anatomical Region Laterality Modality OB-REGIONAL BUSINESS MANAGER Ultrasound 04/14/2025 8:07 AM EDT Narrative 04/14/2025 1:39 PM EDT NAME: CINDY GRECO : 1995 SEX: F Accession Number: [id number] ORDERING PHYSICIAN: JAIDA CHADWICK REFERRING PHYSICIAN: ALFREDO PROCTOR Coding ----- --------- Procedures 98998: Follow-up Ultrasound, per fetus Indication ----- --------- Screening for follow-up survey, Screening for congenital cardiac abnormality, resulting from assisted reproductive technology, Gestational diabetes, Obesity in , Depression, Supervision of high risk (LT Choroid plexus cyst)-resolved History ----- --------- OB History 2. Para 0 [id number] Maternal Assessment ----- --------- Physical Exam Height [...] EFW (oz) 6 oz EFW by: Hadlock ([id number]-RB-[id number]-FL) Extended Tibia 47.6 mm 28w 6d 23% Padmini Assistant Manager Retail 3.1 mm CM 10.2 mm 99% Nicolaides [...] Thorax RVOT view. LVOT view. 3-vessel view. 7-lnjohs-joghytc view. Right lung. Left lung. Abdomen Right [...] view documented previously 3-vessel view documented previously 4-cqusnd-mjntovw view documented previously Aortic arch view documented [...] 6.5 cm. Recommendations ----- --------- Please see [facility] recommendations from prior clinical and/or ultrasound report documentation. The patient is scheduled in four weeks to complete anatomic survey and echocardiogram. Continue testing as previously recommended. Subsequent follow up or other follow up as clinically determined by primary OB provider unless otherwise specified by [facility]. Results forwarded to ordering provider so they can follow up with the patient as necessary. Procedure Note Jaida Chadwick MD - 04/14/2025 NAME: CINDY GRECO : 1995 SEX: F Accession Number: [id number] ORDERING PHYSICIAN: JAIDA CHADWICK REFERRING PHYSICIAN: ALFREDO PROCTOR Coding ----- --------- Procedures [id number]: Follow-up Ultrasound, per fetus Indication ----- --------- Screening for follow-up survey, Screening for congenital cardiacabnormality, resulting from assisted reproductive technology, Gestational diabetes, Obesity in , Depression,Supervision of high risk (LT Choroid plexus cyst)-resolved History ----- --------- OB History 2. Para 0 [id number] Maternal Assessment ----- --------- Physical Exam Height [...] EFW (oz) 6 oz EFW by: Hadlock (VVM-FN-GF-FL) Extended Tibia 47.6 mm 28w 6d 23% Padmini Assistant Manager Retail 3.1 mm CM 10.2 mm 99% Nicolaides [...] Thorax RVOT view. LVOT view. 3-vessel view. 7-orjpfr-dsjdogubnxr. Right lung. Left lung. Abdomen Right renal [...] view documented previously 3-vessel view documented previously 1-hyourl-rrzxycy view documented previously Aortic arch view documented [...] thepatient as necessary. us Jaida Chadwick MD [facility] US ORDERABLES Final Result * Pap Smear (11/24/2020 6:26 AM EST) 11/24/2020 6:26 AM EST 11/24/2020 6:35 AM EST Narrative COPATH - 11/28/2020 11:50 AM EST [facility] [address] [place] [address] Gynecologic Cytology Consultation Patient Name: KEVIN MOORE : 1995 (Age: 25) Gender: F Taken: 11/24/2020 Reported: 11/28/2020 Physician(s): Al Orr M.D. ( ) Copy To: [facility]. #: [id number] Acct: # [id number] Final Cytologic Interpretation ThinPrep Pap Test (Cervical): Satisfactory for evaluation. A transformation zone component was not noted. NEGATIVE FOR INTRAEPITHELIAL LESION OR MALIGNANCY. [facility]/11/28/2020 Interpretation performed at [facility], [address] [place] [address], License number: [id number]. Electronically Signed Out By PAUL Lopez(ASCP) Date of Last Menstrual Period: 09/12/2020 Other Clinical Conditions: Z01.419 Spd Tech exam wo/abn findings Source of Specimen ThinPrep Pap Test (Cervical) Thin Prep Pap (REGIONAL BUSINESS MANAGER) Fee Code(s): G0145 The Pap test is a screening test with an inherent, but low, probability of error. The Pap test is primarily effective for the diagnosis and prevention of squamous cell carcinoma. Regular screening is critical for prevention. ThinPrep liquid-based slides, which meet the Jordan Man criteria for automated screening, have been screened by the ThinPrep Imaging System (as of 07/20/07) along with an additional manual rescreening by a soa integration architect and, if indicated, by a pathologist. Al Orr MD PATHOLOGY/CYTOLOGY ORDERABLE S Final Result COPATH from Last 3 Months or Most Recently Relevant to Health Maintenance Insurance ANTHEM ANTHEM
--- OUTSIDE RECORDS SUMMARY | 2025-05-24 17:03 | XMS_ITS | Encounter Summary ---
Author Organization [facility] Address [address] [place] [address] Care Team Providers Care Child Care Aide Name Role Phone Unavailable Primary Care Provider Unavailabl e Encounter Details Date Type Department Care Team (Late st Contact Info) Description 04/14/2025 Abstract [facility] OB [address] [place] [address] Yue Dumont MA Social History Tobacco [...] [address] [place] [address] Christy Schwartz PA [address] [facility] [address] [facility] [address] [place], [facility] 05/30/2025 8:30 AM EDT Routine [facility] [address] [facility] [address] Cain Donaldson DO [address] [place] [address] Dr [place], [place] [id number] 06/06/2025 8:40 AM EDT Routine [facility] OB [address] [place] [address] [place] [phone] Christy Schwartz PA [address] [place] [address] [place] [address] 06/13/2025 8:30 AM EDT Routine [facility] [address] [place] [address] [place] [address] Christy Schwartz PA [address] [place] [address] [place], [place] [id number] documented as of this encounter Goals Goal Patient Goal Type Associated Problems Recent Progress Patient-Stated? Author Reminders Care Plan OB Reminders No Open Scheduling, Background documented as of this encounter Visit Diagnoses Not on filedocumented in this encounter Additional Health Concerns Active Problems Noted Date Diagnosed Date OB Reminders 11/26/2024 documented as of this encounter
--- OUTSIDE RECORDS SUMMARY | 2025-05-24 17:03 | XMS_ITS | Encounter Summary ---
Author Organization [facility] Address [address] [place] [address] Care Team Providers Care Automatic Pinsetter Mechanic Name Role Phone Unavailable Primary Care Provider Unavailabl e Encounter Details Date Type Department Care Team (Late st Contact Info) Description 04/19/2025 Results Follow-Up [facility] [address] [facility] [place] [address] Mary Thorpe LPN [address] [place] [address] Social History Tobacco Use Types [...] [address] [facility] [place] [address] Christy Schwartz, PA [address] [place] [address] 05/30/2025 8:30 AM EDT Routine [facility] OB [address] [place] [address] Cain Donaldson DO [address] [place] [address] 06/06/2025 8:40 AM EDT Routine [facility] OB [address] [place] [address] [place] [phone] Christy Schwartz, PA [address] [place] [address] 06/13/2025 8:30 AM EDT Routine [facility] OB [address] [place] [address] Christy Schwartz, PA [address] [place] [address] documented as of this encounter Goals Goal Patient Goal Type Associated Problems Recent Progress Patient-Stated? Author Reminders Care Plan OB Reminders No Open Scheduling, Background documented as of this encounter Visit Diagnoses Not on filedocumented in this encounter Additional Health Concerns Active Problems Noted Date Diagnosed Date OB Reminders 11/26/2024 documented as of this encounter
--- OUTSIDE RECORDS SUMMARY | 2025-05-24 17:03 | XMS_ITS | Encounter Summary ---
Author Organization [facility] Address [address] [place] [address] Care Team Providers Care Inspector Wreath Name Role Phone Unavailable Primary Care Provider Unavailabl e Encounter Details Date Type Department Care Team (Late Contact Info) Description 04/22/2025 Abstract [facility] OB [address] [facility] [address] Cain Donaldson DO [address] [place] [address] Dr [place], [facility]11 Social History Tobacco Use Types [...] AM EDT Routine [facility] OB [address] [facility] [address] Christy Schwartz PA [address] [place] [address] [place], [place] [id number] 05/30/2025 8:30 AM EDT Routine [facility] [address] [facility] [place] [address] Cain Donaldson DO [address] [facility] [place] [address] 06/06/2025 8:40 AM EDT Routine [facility] OB [address] [place] [address] [place] [phone] Christy Schwartz PA [address] [facility] [address] [place], [place] [id number] 06/13/2025 8:30 AM EDT Routine [facility] OB [address] [place] [address] [place] [phone] Christy Schwartz PA [address] [facility] [address] [place], [place] [id number] documented as of this encounter Goals Goal Patient Goal Type Associated Problems Recent Progress Patient-Stated? Author Reminders Care Plan OB Reminders No Open Scheduling, Background documented as of this encounter Visit Diagnoses Not on filedocumented in this encounter Additional Health Concerns Active Problems Noted Date Diagnosed Date OB Reminders 11/26/2024 documented as of this encounter
--- OUTSIDE RECORDS SUMMARY | 2025-05-24 17:03 | XMS_ITS | Encounter Summary ---
Author Organization [facility] Address [address] [place] [address] Care Team Providers Care Printing Estimator Name Role Phone Unavailable Primary Care Provider Unavailabl e Encounter Details Date Type Department Care Team (Late st Contact Info) Description 03/18/2025 Abstract [facility] OB [address] [facility] [place] [address] Yue Dumont MA Social History Tobacco [...] AM EDT Routine [facility] OB [address] [place] [address] Christy Schwartz PA [address] [place], [id number] 05/30/2025 8:30 AM EDT Routine [facility] OB [address] [place] [address] Cain Donaldson DO [address] [place], [place] [id number] 06/06/2025 8:40 AM EDT Routine [facility] OB [address] [place] [address] [place] [phone] Christy Schwartz PA [address] [place] [address] [place] [address] 06/13/2025 8:30 AM EDT Routine [facility] OB [address] [place] [address] [place] [phone] Christy Schwartz PA [address] [place] [address] [place], [place] [id number] documented as of this encounter Goals Goal Patient Goal Type Associated Problems Recent Progress Patient-Stated? Author Reminders Care Plan OB Reminders No Open Scheduling, Background documented as of this encounter Visit Diagnoses Not on filedocumented in this encounter Additional Health Concerns Active Problems Noted Date Diagnosed Date OB Reminders 11/26/2024 documented as of this encounter
--- OUTSIDE RECORDS SUMMARY | 2025-05-24 17:03 | XMS_ITS | Encounter Summary ---
Author Organization [facility] Address [address] [place] [address] Care Team Providers Care Cryogenic Transport Driver Name Role Phone Unavailable Primary Care Provider Unavailabl e Encounter Details Date Type Department Care Team (Late Contact Info) Description 12/27/2024 Abstract [facility] OB [address] [facility] [place] [address] Cain Donaldson DO [address] [place] [address] Dr [place], [facility] Social History Tobacco Use Types Packs/Day Years [...] AM EDT Routine [facility] OB [address] [place] [address] Christy Schwartz PA [address] [place] [address] [place], [place] [id number] 05/30/2025 8:30 AM EDT Routine [facility] [address] [facility] [place] [address] Cain Donaldson DO [address] [facility] [place] [address] 06/06/2025 8:40 AM EDT Routine [facility] OB [address] [place] [address] [place] [address] Christy Schwartz PA [address] [facility] [address] [place], [place] [id number] 06/13/2025 8:30 AM EDT Routine [facility] OB [address] [place] [address] [place] [phone] Christy Schwartz PA [address] [facility] [address] [place], [place] [id number] documented as of this encounter Goals Goal Patient Goal Type Associated Problems Recent Progress Patient-Stated? Author Reminders Care Plan OB Reminders No Open Scheduling, Background documented as of this encounter Visit Diagnoses Not on filedocumented in this encounter Additional Health Concerns Active Problems Noted Date Diagnosed Date OB Reminders 11/26/2024 documented as of this encounter
--- OUTSIDE RECORDS SUMMARY | 2025-05-24 17:03 | XMS_ITS | Clinical Summary ---
Author Organization [facility] Address [address] [facility], [address] [place] [address] Care Team Providers Care Spinner Fixer Name Role Phone Unavailable Primary Care Provider [...] Ab NONREACTIVE NONREACTIVE 12/23/19 6:10 PM EST [employer] Comment: The hepatitis C procedure used in [...] PM EST 12/23/2024 6:12 PM EST Result [facility] Cain Donaldson MD IMMUNOLOGY ORDERABLES Fin al Result [facility] [address] [place] [address], [facility] [phone] [place] [address] [place] [address], [facility] [phone] * HIV Screen (12/23/2024 6:10 PM EST) HIV Ag/Ab NONREACTIVE NONREACTIVE 12/23/2024 6:10 PM EST [employer] Comment: No laboratory evidence of HIV infection. If acute HIV infection is suspected, consider testing for HIV-1 RNA. 12/23/2024 6:10 PM EST 12/23/2024 6:12 PM EST Cain Donaldson MD IMMUNOLOGY ORDERABLES Fin al Result [facility] [address] [place] [address], [facility] [phone] [facility] [employer] [address] [place] [address], [facility] [phone] from Last 3 Months or Most Recently Relevant to Health Maintenance Insurance [employer]
--- OUTSIDE RECORDS SUMMARY | 2025-05-24 17:03 | XMS_ITS | Encounter Summary ---
Author Organization [facility] Address [address] [place] [address] Care Team Providers Care Assistant Engineer Name Role Phone Unavailable Primary Care Provider Unavailabl e Encounter Details Date Type Department Care Team (Late Contact Info) Description 05/10/2025 Clinisync Result Encounter [facility] External Department Unsolicited George Scherer, LEEANN [address] [facility] [place] [address] Social History Tobacco Use Types Packs/Day [...] Routine [facility] [address] [facility] [place] [address] Christy Schwartz PA [address] [place], [facility]11 05/30/2025 8:30 AM EDT Routine [facility] OB [address] [facility] [place] [address] Cain Donaldson DO [address] [place] [address] 06/06/2025 8:40 AM EDT Routine [facility] OB [address] [place] [address] [place] [phone] Christy Schwartz PA [address] [place] [address] [place] [address] 06/13/2025 8:30 AM EDT Routine [facility] OB [address] [place] [address] [place] [phone] Christy Schwartz PA [address] [facility] [address] [place], [place] [address] documented as of this encounter Goals Goal [...] EDT Narrative 05/10/2025 6:26 PM EDT [facility] [place] [id number] Ultrasound Report Signed Patient: KEVIN WHITE MR#: [id number] : 1995 Acct:[id number] Age/Sex: 29 / F ADM Date: 05/10/25 Loc: US Attending Dr: George Scherer Ordering Physician: George Scherer Date of Service: 05/10/25 Procedure(s): US OB BPP w non-stress Accession Number(s): [id number] cc: George Scherer; Cain Donaldson D.O. The [address] [id number] Patient Name: KEVIN WHITE MRN: [id number] date: 1995 Sex: F Assigned Patient Location: [facility] Current Patient Location: Accession/Order Number: [id number] Exam Date: 05/10/2025 18:22 Report Date: 05/10/2025 [...] Epperson M.D. 05/10/2025 6:23 PM Dictation Location: [place] [address] Electronically authenticated by: [id number] Y Date: 05/10/2025 18:23 Dictated By: Larry Epperson M.D. Signed By: 05/10/251825 DD/ 22 TD/TT: Operational Risk Consultant: Procedure Note Radiology, Radiologist, MD - 05/10/2025 [place] [address] Ultrasound Report Signed Patient: KEVIN WHITEMR#: [id number] : 1995Acct:[id number] Age/Sex: 29 / FADM Date: 05/10/25 Loc: US Attending Dr: George Scherer Ordering Physician: George Scherer Date of Service: 05/10/25 Procedure(s): US OB BPP w non-stress Accession Number(s): [id number] cc: George Scherer; Cain Donaldson D.O. The [address] [address] Patient Name: KEVIN WHITE MRN: [id number] date: 1995 Sex: F Assigned Patient Location: [facility] Current Patient Location: Accession/Order Number: [id number] Exam Date: 05/10/2025 18:22 Report Date: 05/10/2025 [...] Epperson M.D. 05/10/2025 6:23 PM Dictation Location: [place] [address] Electronically authenticated by: [id number] Y Date: 8:23 Dictated By: Larry Epperson M.D. Signed By:05/10/25 1826 DD/ 22 TD/TT: Operational Risk Consultant: George Scherer NP [facility] Final Resul t documented in this encounter Visit Diagnoses Not on filedocumented in this encounter Additional Health Concerns Active Problems Noted Date Diagnosed Date OB Reminders 11/26/2024 documented as of this encounter
--- OUTSIDE RECORDS SUMMARY | 2025-05-24 17:03 | XMS_ITS | Clinical Summary ---
Author Organization [facility] Address [address] [place] [address] Care Team Providers Care Wooden Barrel Mechanic Name Role Phone Unavailable Primary Care Provider Unavailabl e Allergies No known active allergies Medications Alcohol Swabs (Alcohol Prep Pad) 70 % padsIndications: Elevated glucose tolerance test, resulting from in vitro fertilization, antepartum ([facility]) Apply 1 Pad topically Daily Use four times daily to check FSBS. 150 each 3 5 Active Blood Glucose Monitoring Suppl (D-Care Glucometer) w/Device kitIndications:E levated glucose tolerance test, resulting from in vitro fertilization, antepartum ([facility]) 1 kit Daily Use four times daily to check FSBS. In the morning prior to breakfast & 1 hour after each meal for a total of 4times daily. 1 kit 5 12/23/19 26 Active insulin syringe 29G X 1/2 0.5 mL miscIndications: Gestational diabetes mellitus (GDM), antepartum, gestational diabetes method of control unspecified ([facility]) Use 2 syringes in the morning [...] for 7 days. 21 tablet 05/23/20 25 Encounters Date Type Department Care Team Description 05/17/2025 Clinisync Result Encounter [facility] External Department Unsolicited Belgica Scherer NP 05/16/2025 8:30 AM EDT Routine [facility] [address] [place] [address] Alfredo Donaldson, 34 weeks gestation of ([facility]); Third trimester ([facility]); Conceived by in vitro fertilization; Factor 5 Leiden mutation, heterozygous ([facility]); Insulin controlled gestational diabetes mellitus (GDM) during , antepartum ([facility]); Non-recurrent acute serous otitis media of left ear 05/16/2025 Bamboo flowsheet [facility] [address] [place] [address] Alfredo Donaldson DO 05/10/2025 8:00 AM EDT Ancillary Procedure [facility] [address] [place] [address] Insulin controlled gestational diabetes mellitus (GDM) during , antepartum ([facility]); Gestational diabetes mellitus (GDM), antepartum, gestational diabetes method of control unspecified ([facility]) 05/10/2025 Clinisync Result Encounter [facility] External Department Unsolicited Belgica Scherer NP 05/09/2025 Travel 05/04/2025 Clinisync Result Encounter [facility]OMS External Department Unsolicited Belgica Scherer NP 05/03/2025 8:50 AM EDT Routine [facility] [address] [place] [address] Christy Schwartz PA Gestational diabetes mellitus (GDM), antepartum, gestational diabetes method of control unspecified ([facility]) (Primary Dx); Third trimester ([facility]); 32 weeks gestation of ([facility]CC); Conceived by in vitro fertilization; Factor 5 Leiden mutation, heterozygous ([facility]HCC); Insulin controlled gestational diabetes mellitus (GDM) during , antepartum ([facility]); size inconsistent with dates ([facility]) 05/03/2025 Bamboo flowsheet [facility] [address] [place] [address] [place] [address] Christy Schwartz PA 04/27/2025 Clinisync Result Encounter NOMS External Department Unsolicited Belgica Scherer NP 04/26/2025 Travel 04/22/2025 Abstract [facility] [address] [place] [address] [place] [address] Alfredo Donaldson, DO 04/19/2025 Results Follow-Up [facility] [address] [place] [address] [place] [address] Mary Thorpe LPN 04/19/2025 Clinisync Result Encounter NOMS External Department Unsolicited Alfredo Donaldson, DO 04/19/2025 Clinisync Result Encounter NOMS External Department Unsolicited Alfredo Donaldson, DO 04/18/2025 10:10 AM EDT Routine [facility] [address] [place] [address] Alfredo Donaldson, DO Third trimester ([facility]); 30 weeks gestation of ([facility]) 04/18/2025 Clinisync Result Encounter [facility]OMS External Department Unsolicited Alfredo Donaldson, DO 04/18/2025 Bamboo flowsheet [facility] [address] [place] [address] [place] [address] Alfredo Donaldson, DO 04/17/2025 Clinisync Result Encounter NOMS External Department Unsolicited Alfredo Donaldson, DO 04/14/2025 Abstract [facility] [address] [place] [address] [place] [address] Yue Dumont MA 04/11/2025 Clinisync Result Encounter [facility]S External Department Unsolicited Alfredo Donaldson, DO 04/11/2025 Clinisync Result Encounter [facility] External Department Unsolicited Alfredo Donaldson, DO 04/05/2025 Clinisync Result Encounter [facility]S External Department Unsolicited Alfredo Donaldson, DO 03/30/2025 8:50 AM EDT Routine [facility] [address] [place] [address] Christy Schwartz PA Second trimester ([facility]); 27 weeks gestation of ([facility]); Gestational diabetes mellitus (GDM), antepartum, gestational diabetes method of control unspecified ([facility]); Factor 5 Leiden mutation, heterozygous ([facility]); Conceived by in vitro fertilization 03/30/2025 Bamboo flowsheet [facility] [address] [place] [address] Christy Schwartz PA 03/30/2025 Travel 03/18/2025 Abstract [facility] [address] [place] [address] Yue Dumont ID 03/03/2025 8:40 AM EDT Routine [facility] [address] [place] [address] Alfredo Donaldson DO 23 weeks gestation of ([facility]); Second trimester ([facility]); induced hypertension, antepartum ([facility]); Insulin controlled gestational diabetes mellitus (GDM) during , antepartum ([facility]) 03/03/2025 Bamboo flowsheet [facility] [address] [place] [address] Alfredo Donaldson DO 03/02/2025 Travel from Last [...] AM EDT Routine [facility] [address] [facility] [place] [address] Christy Schwartz, PA [address] [place] [address] [place] [address] 05/30/2025 8:30 AM EDT Routine [facility] [address] [facility] [place] [address] Alfredo Donaldson DO [address] [facility] [place] [address] 06/06/2025 8:40 AM EDT Routine [facility] [address] [place] [address] [place] [phone] Christy Schwartz, PA [address] [place] [address] [place], [place] [phone] 06/13/2025 8:30 AM EDT Routine [facility] [address] [place] [address] [place] [address] Christy Schwartz, PA [address] [place] [address] [place] [address] Health Maintenance Due Date Last Done Comments [...] 8:43 AM EDT 34 weeks gestation of ([facility]) Third trimester ([facility]) US OB BPP W NON-STRESS 05/10/2025 6:23 PM EDT US OB FOLLOW UP TRANSABDOMINAL APPROACH Routine 05/10/2025 8:32 AM EDT Insulin controlled gestational diabetes mellitus (GDM) during , antepartum ([facility]) Gestational diabetes mellitus (GDM), antepartum, gestational diabetes method of control unspecified ([facility]) US OB BPP W NON-STRESS 05/04/2025 7:58 AM EDT POCT URINALYSIS DIPSTICK Routine 05/03/2025 9:11 AM EDT Third trimester ([facility]) US OB BPP W NON-STRESS 04/27/2025 [...] 04/18/2025 9:05 PM EDT TBH UA (CLEAN/CATCH) NURSE'S COMPANION/MICRO IF IND. Routine 04/18/2025 9:05 PM EDT POCT URINALYSIS DIPSTICK Routine 04/18/2025 10:40 AM EDT Third trimester ([facility]) TBH TOTAL PROTEIN 24 HOUR URINE Routine [...] 9:08 AM EDT 23 weeks gestation of ([facility]) Second trimester ([facility]) PAP SMEAR Routine 01/20/2025 12:00 AM EDT from Last 3 Months or Most Recently Relevant to Health Maintenance Results * US OB BPP W NON-STRESS (05/17/2025 8:07 AM EDT) Only the most recent of7 resultswithin the time period is included. Anatomical Region Laterality Modality Other 05/17/2025 8:07 AM EDT Narrative 05/17/2025 8:09 [place] [address] Ultrasound Report Signed Patient: KEVIN WHITE MR#: [id number] : 1995 Acct:[id number] Age/Sex: 29 / F ADM Date: 05/16/25 Loc: US Attending Dr: Belgica Scherer Ordering Physician: Belgica Scherer Date of Service: 05/16/25 Procedure(s): US OB BPP w non-stress Accession Number(s): [id number] cc: Belgica Scherer; Alfredo Donaldson D.O. [address] [address] Patient Name: KEVIN WHITE MRN: [id number] date: 1995 Sex: F Assigned Patient Location: US Current Patient Location: Accession/Order Number: [id number] Exam Date: 05/17/2025 08:06 Report Date: 05/17/2025 [...] Munson M.D. 05/17/2025 8:07 AM Dictation Location: [place] [address] Electronically authenticated by: [id number] Y Date: 05/17/2025 08:07 Dictated By: Justina Munson M.D. Signed By: 05/17/25808 DD/ 6 TD/TT: Steward/Stewardess Third: Procedure Note Radiology, Radiologist, MD - 05/17/2025 [place] [address] Ultrasound Report Signed Patient: KEVIN WHITEMR#: [id number] : 1995Acct:[id number] Age/Sex: 29 / FADM Date: 05/16/25 Loc: US Attending Dr: Belgica Scherer Ordering Physician: Belgica Scherer Date of Service: 05/16/25 Procedure(s): US OB BPP w non-stress Accession Number(s): [id number] cc: Belgica Scherer; Alfredo Donaldson D.O. The [place] [address] Patient Name: KEVIN WHITE MRN: [id number] date: 1995 Sex: F Assigned Patient Location: US Current Patient Location: Accession/Order Number: [id number] Exam Date: 05/17/2025 08:06 Report Date: 05/17/2025 [...] This is in normal range. Total score: 88 US/US OB BPP w non-stress IMPRESSION: NORMAL BIOPHYSICAL PROFILE Impression dictated by: Justina Munson M.D. 05/17/2025 8:07 AM Dictation Location: [place] [address] Electronically authenticated by: [id number] Y Date: 508:07 Dictated By: Justina Munson M.D. Signed By:05/17/25 0809 DD/ TD/TT: Steward/Stewardess Third: Belgica Scherer EMBROIDERY MACHINE OPERATOR [facility] Final Resul t * URINARY [...] ppm 05/17/2025 7:54 AM EDT [facility] ENTEROCOCCUS FAECALIS, FAECIUM 0 26.000 - 33.043 ppm 05/17/2025 7:54 AM EDT [facility] ENTEROCOCCUS FAECALIS, FAECIUM Not Detected 26.000 - 33.043 ppm 05/17/2025 7:54 AM EDT [facility] ESCHERICHIA COLI 0 23.000 - 28.500 ppm 05/17/2025 7:54 AM EDT [facility] ESCHERICHIA COLI Not Detected 23.000 - 28.500 ppm 05/17/2025 7:54 AM EDT [facility] KLEBSIELLA PNEUMONIAE, OXYTOCA 0 23.000 - 31.865 ppm 05/17/2025 7:54 AM EDT [facility] KLEBSIELLA PNEUMONIAE, OXYTOCA Not Detected 23.000 - 31.865 ppm 05/17/2025 7:54 AM EDT [facility] MORGANELLA MORGANII 0 19.961 - 24.689 ppm 05/17/2025 7:54 AM EDT [facility] MORGANELLA MORGANII Not Detected 19.961 - 24.689 ppm 05/17/2025 7:54 AM EDT [facility] PROTEUS MIRABILIS, VULGARIS 0 23.000 - 28.500 ppm 05/17/2025 7:54 AM EDT [facility] PROTEUS MIRABILIS, VULGARIS Not Detected 23.000 - 28.500 ppm 05/17/2025 7:54 AM EDT [facility] PSEUDOMONAS AERUGINOSA 0 23.000 - 31.801 ppm 05/17/2025 7:54 AM EDT [facility] PSEUDOMONAS AERUGINOSA Not Detected 23.000 - 31.801 ppm 05/17/2025 7:54 AM EDT [facility] STAPHYLOCOCCUS AUREUS 0 26.000 - 31.595 ppm 05/17/2025 7:54 AM EDT [facility] STAPHYLOCOCCUS AUREUS Not Detected 26.000 - 31.595 ppm 05/17/2025 7:54 AM EDT [facility] STREPTOCOCCUS AGALACTIAE (GROUP B STREP) 0 26.000 - 32.435 ppm 05/17/2025 7:54 AM EDT [facility] STREPTOCOCCUS AGALACTIAE (GROUP B STREP) Not Detected 26.000 - 32.435 ppm 05/17/2025 7:54 AM EDT [facility] DEAN ALBICANS, PARAPSILOSIS, TROPICALIS 0 23.000 - 30.347 ppm 05/17/2025 7:54 AM EDT [facility] DEAN ALBICANS, PARAPSILOSIS, TROPICALIS Not Detected 23.000 - 30.347 ppm 05/17/2025 7:54 AM EDT [facility] DEAN GLABRATA 0 23.000 - 31.618 ppm 05/17/2025 7:54 AM EDT [facility] DEAN GLABRATA Not Detected 23.000 - 31.618 ppm 05/17/2025 7:54 AM EDT [facility] DEAN KRUSEI 0 23.000 - 30.873 ppm 05/17/2025 7:54 AM EDT [facility] DEAN KRUSEI Not Detected 23.000 - 30.873 ppm 05/17/2025 7:54 AM EDT [facility] SERRATIA MARCESCENS 0 23.000 - 31.581 ppm 05/17/2025 7:54 AM EDT [facility] SERRATIA MARCESCENS Not Detected 23.000 - 31.581 ppm 05/17/2025 7:54 AM EDT [facility] STREPTOCOCCUS PYOGENES (GROUP A STREP) 0 19.961 - 24.689 ppm 05/17/2025 7:54 AM EDT [facility] STREPTOCOCCUS PYOGENES (GROUP A STREP) Not Detected 19.961 - 24.689 ppm 05/17/2025 7:54 AM EDT [facility] STAPHYLOCOCCUS EPIDERMIDIS, HAEMOLYTICUS, LUGDUNENSIS, SAPROPHYTICUS (URINA 0 19.961 - 24.689 ppm 05/17/2025 7:54 AM EDT [facility] STAPHYLOCOCCUS EPIDERMIDIS, HAEMOLYTICUS, LUGDUNENSIS, SAPROPHYTICUS (URINA Not Detected 19.961 - 24.689 ppm 05/17/2025 7:54 AM EDT [facility] STAPHYLOCOCCUS EPIDERMIDIS, HAEMOLYTICUS, LUGDUNENSIS, SAPROPHYTICUS (URINA 0 19.961 - 24.689 ppm 05/17/2025 7:54 AM EDT [facility] STAPHYLOCOCCUS EPIDERMIDIS, HAEMOLYTICUS, LUGDUNENSIS, SAPROPHYTICUS (URINA Not Detected 19.961 - 24.689 ppm 05/17/2025 7:54 AM EDT [facility] Urine 05/16/2025 9:46 AM EDT 05/17/2025 2:09 AM EDT Alfredo Mendoza DO LAB BLOOD ORDERABLES Final Resul t [facility] [address] [place] [id number] * (ABNORMAL) POCT urinalysis dipstick manually resulted [...] AM EDT Narrative 04/19/2025 8:52 [place] [address] Ultrasound Report Signed Patient: KEVIN WHITE MR#: [id number] : 1995 Acct:[id number] Age/Sex: 29 / F ADM Date: Loc: [facility] 254- Attending Dr: Alfredo Donalsdon D.O. Ordering Physician: Alfredo Donaldson D.O. Date of Service: 04/19/25 Procedure(s): US renal BI Accession Number(s): [id number] cc: Alfredo Donaldson D.O. The [address] [address] Patient Name: KEVIN WHITE MRN: [id number] date: 1995 Sex: F Assigned Patient Location: LAB Current Patient Location: Accession/Order Number: [id number] Exam Date: 04/19/2025 08:46 Report Date: 04/19/2025 [...] Munson M.D. 04/19/2025 8:49 AM Dictation Location: [place] [address] Electronically authenticated by: [id number] Y Date: 04/19/2025 08:49 Dictated By: Justina Munson M.D. Signed By: 04/19/25 0852 DD/ 0849 TD/TT: Steward/Stewardess Third: Procedure Note Radiology, Radiologist, MD - 04/19/2025 [place] [address] Ultrasound Report Signed Patient: KEVIN WHITEMR#: [id number] : 1995Acct:[id number] Age/Sex: Date: Loc: [facility] 254-[address]: Alfredo Donaldson D.O. Ordering Physician: Alfredo Donaldson D.O. Date of Service: 04/19/25 Procedure(s): US renal BI Accession Number(s): [id number] cc: Alfredo Donaldson D.O. The [place] [id number] Patient Name: KEVIN WHITE MRN: [id number] date: 1995 Sex: F Assigned Patient Location: LAB Current Patient Location: Accession/Order Number: [id number] Exam Date: 04/19/2025 08:46 Report Date: 04/19/2025 [...] Munson M.D. 04/19/2025 8:49 AM Dictation Location: [place] [address] Electronically authenticated by: [id number] Y Date: 508:49 Dictated By: Justina Munson M.D. Signed By:04/19/25 0852 DD/ 0849 TD/TT: Steward/Stewardess Third: us Alfredo Mendoza DO [facility] Final Result * (ABNORMAL) TBH GLUCOSE BLOOD (04/18/2025 11:43 PM EDT) GLUCOSE 108(H) 74 - 106 mg/dL TB 04/18/2025 11:4 3 PM EDT 04/19/2025 12:07 AM EDT Narrative [facility]IN[facility] - 04/19/2025 12:15 AM EDT us Alfredo Mendoza DO [facility] * (ABNORMAL) TBH CREATININE (04/18/2025 11:43 PM EDT) Only the most recent of2 resultswithin the time period is included. CREATININE 0.44(L) 0.55 - 1.02 mg/dL TB TBH EGFR-AF LITHUANIAN >60 >=60 mL/min/1.7 3m 2 TBH TBH EGFR-NON AF LITHUANIAN >60 >=60 mL/min/1.7 3m 2 TBH 04/18/2025 11:4 3 PM EDT 04/19/2025 12:48 AM EDT Narrative [facility] - 04/19/2025 12:56 AM EDT us Alfredo Mendoza DO [facility] Final Result [facility] * (ABNORMAL) ALL CBC WITH AUTO DIFF [...] EDT Alfredo Mendoza DO [facility] Final Result [facility] * ALL BUN (04/18/2025 11:43 PM EDT) Only the most recent of2 resultswithin the time period is included. BLOOD UREA NITROGEN 13.0 7.0 - 18.0 mg/dL TBH 04/18/2025 11:4 3 PM EDT 04/18/2025 11:53 PM EDT Narrative [facility] - 04/19/2025 12:04 AM EDT Alfredo Mendoza DO [facility] * (ABNORMAL) [facility] URINE MICROSCOPIC ONLY (04/18/2025 [...] DO CLINISYNC Final Result Performing Organization Address [facility]/ZIP Co de Phone Number [facility] * (ABNORMAL) TBH UA (CLEAN/CATCH) NURSE'S COMPANION/MICRO IF IND. (04/18/2025 9:05 PM EDT) COLOR [...] DO [facility]IN[facility] Final Result Performing Organization Address [facility]/ZIP Co de Phone Number [facility] * [...] DO [facility]IN[facility] Final Result Performing Organization Address [facility]/ZIP Co de Phone Number [facility] * SRMCOH PROTHROMBIN TIME INR W/O COUM (04/11/2025 4:52 PM EDT) PROTHROMBIN TIME 9.9 9.0 - 11.6 sec TB TB INR 0.93 TB Comment: DESIRED INR: 2.0-3.0 CONDITIONS NOT LISTED BELOW 2.5-3.5 FOR PROSTHETIC HEART VALVE REPLACEMENT 2.5-3.5 RECURRENT THROMBOSIS 04/11/2025 4:52 PM EDT 04/11/2025 4:56 PM EDT Narrative [facility] - 04/11/2025 5:57 PM EDT Alfredoreyes Veeo DO [facility] Final Result [facility] * (ABNORMAL) [facility] AST (04/11/2025 4:52 PM EDT) ASPARTATE AMINO TRANSFERASE 11(L) 15 - 37 U/L TB 04/11/2025 4:52 PM EDT 04/11/2025 4:56 PM EDT Narrative CLINISYNC - 04/11/2025 5:52 PM EDT Alfredo Mendoza DO CLINIS[facility] Final Result Performing Organization Address City/[facility] Co de Phone Number [facility] * [facility] APTT (04/11/2025 4:52 PM EDT) PARTIAL THROMBOPLASTIN TIME 27.3 22.3 - 36.2 sec TB 04/11/2025 4:52 PM EDT 04/11/2025 4:56 PM EDT Narrative [facility]INIS[facility]NC - 04/11/2025 5:57 PM EDT us Alfredo Mendoza DO CLIN[facility] Final Result Performing Organization Address [facility] Co de Phone Number [facility] * ALL URIC ACID (04/11/2025 4:52 PM EDT) URIC ACID 2.8 2.6 - 6.0 mg/dL TB 04/11/2025 4:52 PM EDT 04/11/2025 4:56 PM EDT Narrative CLINIS[facility]NC - 04/11/2025 5:52 PM EDT us Alfredo Mendoza DO CLIN[facility] Final Result Performing Organization Address [facility] de Phone Number [facility] * ALL LDH (04/11/2025 4:52 PM EDT) LACTATE DEHYDROGENASE 153 81 - 234 U/L TB 04/11/2025 4:52 PM EDT 04/11/2025 4:56 PM EDT Narrative [facility] - 04/11/2025 5:52 PM EDT us Alfredo Mendoza DO [facility] Final Result Performing Organization Address [facility] Co de Phone Number [facility] * Pap Smear (01/20/2025 12:00 AM EDT) Swab Cervical swab / Unknown Mendoza Nurse [facility] Ob LAB CYTOLOGY ORDERABLES Final Result Performing Organization Address [facility]/State/ZIP Co de Phone Number EXTERNAL LAB from Last 3 Months or Most Recently Relevant to Health Maintenance Additional Health Concerns Active Problems Noted Date Diagnosed Date OB Reminders 11/26/[address] [facility]
--- OUTSIDE RECORDS SUMMARY | 2025-05-24 17:03 | XMS_ITS | Encounter Summary ---
Author Organization [facility] Address [address] [place] [address] Care Team Providers Care Optician Manager Name Role Phone Unavailable Primary Care Provider Unavailabl e Encounter Details Date Type Department Care Team (Late Contact Info) Description 01/27/2025 Orders Only [facility] [address] [place] [address] Damaris Lopez LPN [address] [facility] Social History Tobacco Use Types Packs/Day [...] EDT Routine [facility] [address] [place] [address] Christy Schwartz PA [address] [place], [place] [id number] 05/30/2025 8:30 AM EDT Routine [facility] [address] [place] [address] Cain Donaldson DO [address] [place] [address] 06/06/2025 8:40 AM EDT Routine [facility] [address] [place] [address] [place] [address] Christy Schwartz PA [address] [place], [place] [id number] 06/13/2025 8:30 AM EDT Routine [facility] OB [address] [place] [address] [place] [address] Christy Schwartz PA [address] [place], [place] [phone] documented as of this encounter Goals Goal [...]
--- OUTSIDE RECORDS SUMMARY | 2025-05-24 17:03 | XMS_ITS | Encounter Summary ---
Author Organization [facility] tem Address [id number] [address] [place] [address] Care Team Providers Care Pastoral Assistant Name Role Phone Unavailable Primary Care Provider Unavailabl e Encounter Details Date Type Department Care Team (Late st Contact Info) Description 05/17/2025 Telephone Maternal- Medicine at [facility] [address] [place] [phone] Sonya Lomax, RN Social History Tobacco Use [...] Sonya Lomax RN - 05/17/2025 7:37 PM EDT Called pt to let her know that Devika Pulido reviewed her blood sugars and did not want to make anychanges for this week there was not pattern [...]
--- OUTSIDE RECORDS SUMMARY | 2025-05-24 17:03 | XMS_ITS | Encounter Summary ---
Author Organization [facility] tem Address [id number] [address] [place] [address] Care Team Providers Care Soda Jerker Name Role Phone Unavailable Primary Care Provider Unavailabl e Encounter Details Date Type Department Care Team (Latest Contact Info) Description 05/23/2025 Travel Social History Tobacco Use Types Packs/Day [...]
--- OUTSIDE RECORDS SUMMARY | 2025-05-24 17:03 | XMS_ITS | Encounter Summary ---
Author Organization [facility] Address [address] [place] [address] Care Team Providers Care Sterile Instrument Technician Name Role Phone Unavailable Primary Care Provider Unavailabl e Encounter Details Date Type Department Care Team (Late Contact Info) Description 12/24/2024 Abstract [facility] OB [address] [place] [address] Cain Donaldson DO [address] [place] [address] Dr Kelsey Prieto, [facility]11 Social History Tobacco Use Types [...] AM EDT Routine [facility] OB [address] [place] [address] Christy Schwartz PA [address] [place] [address] [place], [place] [id number] 05/30/2025 8:30 AM EDT Routine [facility] [address] [facility] [place] [address] Cain Donaldson DO [address] [facility] [place] [address] 06/06/2025 8:40 AM EDT Routine [facility] B[facility] OB [address] [place] [address] [place] [address] Christy Schwartz PA [address] [facility] [address] [place], [place] [address] 06/13/2025 8:30 AM EDT Routine [facility] B[facility] OB [address] [place] [address] [place] [address] Christy Schwartz PA [address] [facility] [address] [place], [place] [id number] documented as of this encounter Goals Goal Patient Goal Type Associated Problems Recent Progress Patient-Stated? Author Reminders Care Plan OB Reminders No Open Scheduling, Background documented as of this encounter Visit Diagnoses Not on filedocumented in this encounter Additional Health Concerns Active Problems Noted Date Diagnosed Date OB Reminders 11/26/2024 documented as of this encounter
--- OUTSIDE RECORDS SUMMARY | 2025-05-24 17:03 | XMS_ITS | Encounter Summary ---
Author Organization [facility] Address [address] [place] [address] Care Team Providers Care Vacuum Filter Operator Name Role Phone Unavailable Primary Care Provider Unavailabl e Encounter Details Date Type Department Care Team (Late st Contact Info) Description 11/12/2024 Abstract [facility] B[facility] OB 102 [facility] [place] [phone] Cain Donaldson, [address] Kelsey Prieto, [place] [address] Social History Tobacco Use Types Packs/Day Years [...] [facility] [place] [phone] Christy Schwartz PA [address] [place], [place] [address]familia [place], [place] [id number] 05/30/2025 8:30 AM EDT Routine [facility] BCP OB [address] [place] [address] [place] [address] Cain Donaldson, [address] Kelsey Prieto, [facility] 06/06/2025 8:40 AM EDT Routine [facility] B[facility] OB [address] [place] [address] [place] [phone] Christy Schwartz PA [address] [place] [address] [place] [address] 06/13/2025 8:30 AM EDT Routine [facility] OB [address] [place] [address] [place] [phone] Christy Schwartz PA [address] [place] [address] [place] [address] documented as of this encounter Visit Diagnoses Not on filedocumented in this encounter
--- OUTSIDE RECORDS SUMMARY | 2025-05-24 17:03 | XMS_ITS | Encounter Summary ---
Author Organization [facility] Address [address] [place] [address] Care Team Providers Care Cargo Bracer Name Role Phone Unavailable Primary Care Provider Unavailabl e Encounter Details Date Type Department Care Team (Late Contact Info) Description 11/26/2024 Abstract [facility] BCP OB [address] [place] [address] Cain Donaldson DO [address] [place] [address] Dr Kelsey Prieto, [facility]11 Social History Tobacco Use Types Packs/Day Years [...] AM EDT Routine [facility] BCP OB [address] [place] [address] Christy Schwartz PA [address] [place], [place] [address] [place] [address] [place], [place] [id number] 05/30/2025 8:30 AM EDT Routine [facility] OB 102 [facility] [place] [place] [address] Cain Donaldson DO [address] [facility] [place] [address] 06/06/2025 8:40 AM EDT Routine [facility] BCP OB [address] [place] [address] [place] [address] Christy Schwartz PA [address] [facility] [address] [place], [place] [id number] 06/13/2025 8:30 AM EDT Routine [facility] BCP OB [address] [place] [address] [place] [address] Christy Schwartz PA [address] [facility] [address] [place], [place] [id number] documented as of this encounter Goals Goal Patient Goal Type Associated Problems Recent Progress Patient-Stated? Author Reminders Care Plan OB Reminders No Open Scheduling, Background documented as of this encounter Visit Diagnoses Not on filedocumented in this encounter Additional Health Concerns Active Problems Noted Date Diagnosed Date OB Reminders 11/26/2024 documented as of this encounter
--- OUTSIDE RECORDS SUMMARY | 2025-05-24 17:03 | XMS_ITS | Encounter Summary ---
Author Organization [facility] Address [address] [place] [address] Care Team Providers Care Customer Engagement Representative Name Role Phone Unavailable Primary Care Provider Unavailabl e Encounter Details Date Type Department Care Team (Late st Contact Info) Description 05/16/2025 Bamboo flowsheet [facility] BCP OB [address] [place] [address] [place] [address] Cain Donaldson, [address] [place] [address] Dr Kelsey Prieto, [facility]11 Social History Tobacco Use Types Packs/Day [...] 8:50 AM EDT Routine [facility] BCP OB [address] [place], [place] [address]J[place] [address] Christy Schwartz PA [address] [place], [place] [id number] 05/30/2025 8:30 AM EDT Routine [facility] B[facility] OB [address] [place], [place] [address] [address] Cain Donaldson DO [address] [facility] [address] [place], [place] [id number] 06/06/2025 8:40 AM EDT Routine [facility] BCP OB [address] [place] [address] [place] [address] Christy Schwartz PA [address] [facility] [address] [place], [place] [id number] 06/13/2025 8:30 AM EDT Routine [facility] BCP OB [address] [place] [address] [place] [address] Christy Schwartz PA [address] [facility] [address] [place], [place] [address]33[address] documented as of this encounter Goals Goal Patient Goal Type Associated Problems Recent Progress Patient-Stated? Author Reminders Care Plan OB Reminders No Open Scheduling, Background documented as of this encounter Visit Diagnoses Not on filedocumented in this encounter Additional Health Concerns Active Problems Noted Date Diagnosed Date OB Reminders 11/26/2024 documented as of this encounter
--- OUTSIDE RECORDS SUMMARY | 2025-05-24 17:03 | XMS_ITS | Encounter Summary ---
Author Organization [facility] tem Address [facility]-[id number] [address] [place] [address] Care Team Providers Care Maintenance Shop Technician Name Role Phone Unavailable Primary Care Provider Unavailabl e Encounter Details Date Type Department Care Team (Late st Contact Info) Description 05/11/2025 Telephone Maternal- Medicine at [facility] [address] [place] [address] Belen Fowler, ANNETTE Social History Tobacco Use [...]
--- NOTE | 2025-05-24 17:04 | US_ITS ---
[place] [id number] Patient Name: FANNIE WHITE MRN: [id number] date: 1995 Sex: F Assigned Patient Location: [facility] Current Patient Location: Accession/Order Number: [id number] Exam Date: 05/24/2025 21:54 Report Date: 05/24/2025 21:55 At the request of: GEORGE HALE Procedure: US OB BPP w non-stress Ultrasound biophysical profile HISTORY: Gestational diabetes Adequate breathing movement, gross body movement, tone and amniotic fluid volume for total score of 8 out of 8. The amniotic fluid index is 17.4cm within normal limits. The heart rate 153 bpm. US/US OB BPP w non-stress IMPRESSION: Adequate ultrasound biophysical profile Impression dictated by: Zion Steen M.D. 05/24/2025 9:55 PM Dictation Location: [place] [address] Electronically authenticated by: [id number] Y Date: 05/24/2025 21:55
--- OUTSIDE RECORDS SUMMARY | 2025-05-24 17:04 | XMS_ITS | Encounter Summary ---
Author Organization [facility] Address [address] [place] [address] Care Team Providers Care Load Haul Dump Operator Name Role Phone Unavailable Primary Care Provider Unavailabl e Encounter Details Date Type Department Care Team (Late Contact Info) Description 05/17/2025 Clinisync Result Encounter NOMS External Department Unsolicited George Scherer, LEEANN [address] [facility] [place] [address] Social History Tobacco Use Types Packs/Day [...] AM EDT Routine [facility] BCP OB 102 [facility] [place] [address] Christy Schwartz PA [address] [place] [place], [facility]11 05/30/2025 8:30 AM EDT Routine [facility] BCP OB [address] [facility] [place] [address] Cain Donaldson DO [address] [place] [address] 06/06/2025 8:40 AM EDT Routine [facility] BCP OB [address] [place] [address] [place] [address] Christy Schwartz PA [address] [facility] [place] [address] 06/13/2025 8:30 AM EDT Routine [facility] BCP OB [address] [place] [address] [place] [phone] Christy Schwartz PA [address] [facility] [address] [place], [place] [phone] documented as of this encounter Goals Goal [...] EDT Narrative 05/17/2025 8:09 AM EDT The [place] [id number] Ultrasound Report Signed Patient: KEVIN WHITE MR#: [id number] : 1995 Acct:[id number] Age/Sex: 29 / F ADM Date: 05/16/25 Loc: US Attending Dr: George Scherer Ordering Physician: George Scherer Date of Service: 05/16/25 Procedure(s): US OB BPP w non-stress Accession Number(s): [id number] cc: George Scherer; Cain Donaldson D.O. The [address] [address] Patient Name: KEVIN WHITE MRN: [id number] date: 1995 Sex: F Assigned Patient Location: US Current Patient Location: Accession/Order Number: [id number] Exam Date: 05/17/2025 08:06 Report Date: 05/17/2025 [...] Munson M.D. 05/17/2025 8:07 AM Dictation Location: [place] [address] Electronically authenticated by: [id number] Y Date: 05/17/2025 08:07 Dictated By: Justina Munson M.D. Signed By: 05/17/25 0809 DD/ 0807 TD/TT: Tombstone Erector Helper: Procedure Note Radiology, Radiologist, MD - 05/17/2025 [place] [address] Ultrasound Report Signed Patient: KEVIN WHITEMR#: [id number] : 1995Acct:[id number] Age/Sex: 29 / FADM Date: 05/16/25 Loc: US Attending Dr: George Scherer Ordering Physician: George Scherer Date of Service: 05/16/25 Procedure(s): US OB BPP w non-stress Accession Number(s): [id number] cc: George Scherer; Cain Donaldson D.O. The [place] [address] Patient Name: KEVIN WHITE MRN: [facility]:[id number] date: 1995 Sex: F Assigned Patient Location: US Current Patient Location: Accession/Order Number: [id number] Exam Date: 05/17/2025 08:06 Report Date: 05/17/2025 [...] Munson M.D. 05/17/2025 8:07 AM Dictation Location: [place] [address] Electronically authenticated by: [id number] Y Date: 508:07 Dictated By: Justina Munson M.D. Signed By:05/17/2509 DD/ 6 TD/TT: [place]stone Erector Helper: George Scherer HEATING AND COOLING TECHNICIAN [facility] Final Resul t documented in this encounter Visit Diagnoses Not on filedocumented in this encounter Additional Health Concerns Active Problems Noted Date Diagnosed Date OB Reminders 11/26/2024 documented as of this encounter
--- OUTSIDE RECORDS SUMMARY | 2025-05-24 17:04 | XMS_ITS | Encounter Summary ---
Author Organization [facility] tem Address [facility]-[id number] [address] [place] [address] Care Team Providers Care Antique Furniture Reproducer Name Role Phone Unavailable Primary Care Provider Unavailabl e Encounter Details Date Type Department Care Team (Late st Contact Info) Description 01/27/2025 Orders Only Maternal- Medicine at [facility] [address] [place] [phone] Sintia Martinez, PRODUCTION MACHINE SHOP SUPERVISOR-CEMENT CAR DUMPER [address] [place] [address] Social History Tobacco Use Types Packs/Day Years [...]
--- OUTSIDE RECORDS SUMMARY | 2025-05-24 17:04 | XMS_ITS | Encounter Summary ---
Author Organization [facility] tem Address [facility]-[id number] [address] [place] [address] Care Team Providers Care Windows Security Analyst Name Role Phone Unavailable Primary Care Provider Unavailabl e Encounter Details Date Type Department Care Team (Late st Contact Info) Description 12/30/2024 Orders Only Maternal- Medicine at [facility] [address] [place] [address] Ref Prov, [place] [address] Social History Tobacco Use Types Packs/Day Years [...]
--- OUTSIDE RECORDS SUMMARY | 2025-05-24 17:04 | XMS_ITS | Encounter Summary ---
Author Organization [facility] tem Address [id number] [address] [place] [address] Care Team Providers Care Senior Research Engineer Name Role Phone Unavailable Primary Care Provider Unavailabl e Encounter Details Date Type Department Care Team (Late st Contact Info) Description 02/17/2025 Orders Only Maternal- Medicine at [facility] [address] [place] [phone] Christy Prado LPN Insulin controlled gestational diabetes mellitus (GDM) in second trimester; Prediabetes in mother during ; 20 weeks gestation of ; Choroid plexus cyst of fetus affecting care of mother, antepartum, single or unspecified fetus; Heterozygous factor V Leiden affecting in second trimester, antepartum; Severe obesity due to excess calories affecting , antepartum ([facility]); Bipolar disorder, in full remission, most [...] on file documented as of this encounter Procedures Procedure [...] due to excess calories affecting , antepartum ([facility]) Bipolar disorder, in full remission, most recent episode depressed documented in this encounter Results * Unlisted Lab Test (02/08/2025) 02/08/2025 us Gricelda Chadwick MD LAB BLOOD ORDERABLES Final Resul t [employer] documented in this encounter Visit Diagnoses Diagnosis Insulin controlled gestational diabetes mellitus (GDM) in second trimester Prediabetes in mother during 20 weeks gestation of Choroid plexus cyst of fetus affecting care of mother, antepartum, single or unspecified fetus Heterozygous factor V Leiden affecting in second trimester, antepartum Severe obesity due to excess calories affecting , antepartum ([facility]) Bipolar disorder, in full remission, most recent episode depressed documented in this encounter Additional Health Concerns Assessment Noted Time PHQ-9 Depression Total Score: 2 07/03/20 16 9:00 AM EDT documented as of this encounter
[2025-05-24 17:31] VITALS: BP 128/70; PULSE 81
== END 2025-05-24 17:56 | disposition home or self-care (01) ==
LOC: US 17:02 → FBC 17:03
PROVIDERS: PCP Obstetrics & Gynecology; Visit Provider Nurse Practitioner Family
DX: O24.419 Gestational diabetes mellitus in pregnancy, unspecified control (principal); Z3A.35 35 weeks gestation of pregnancy
CPT/HCPCS: 76818

== ENCOUNTER 2025-05-26 15:29 | Outpatient (REF) | payer BC, SELFPAY ==
--- OUTSIDE RECORDS SUMMARY | 2025-01-21 11:10 | XMS_ITS | Continuity of Care Document ---
Author Organization [facility] Address [address] [place] [address] Phone Care Team Providers Care Investment Executive Name Role Phone Miguel Rios Unavailable Unavailable [...] Diagnoses Date Provider Providers Copied on Encounter [facility], [address] [place] [address], [id number] , [place] tel: [phone] [facility] No Information 5 Visci DO Rivera. [address] [place] [address], [id number] , [place]. tel: [phone] [facility], [address] [place] [address], [id number] , [place] tel: [phone] [facility] Encounter for screening for respiratory tuberculosis 5 Visci DO Miguel. [address] [place] [address], [id number] , [place]. tel:[phone] [facility], [address] [place] [address], [id number] , [place] tel: [phone] [facility] No Information 4 Visci DO Miguel. [address] [place] [address], [id number] , [place]. tel: [phone] [facility], [address] [place] [address], [id number] , [place] tel:+ [phone] [facility] Lab Draw (chief complaint) Other specified disorders of pancreatic internal secretionSubclinical iodine-deficiency hypothyroidismEncount er for screening for other viral diseasesEncounter for screening for other infectious disease 4 Cynthia White. [address] [place], [place], [id number] , [place]. tel: [phone] [facility], [address] [place], [place], [id number] , [place] tel: [phone] [facility] lab draw (chief complaint) Encounter for screening for other viral diseases 4 Cynthia White. [address] [place], [place], [id number] , [place]. tel: [phone] [facility], [address], [place], [id number] , [place] tel: [phone] [facility] No Information 4 Cynthia White. [address], [place], [id number] , [place]. tel: [phone] [facility], [address], [place], [id number] , [place] tel: [phone] [facility] Encounter for screening for respiratory tuberculosis 4 Cynthia White. [address] [place], [place], [id number] , [place]. tel: [phone] [facility], [address], [place], [id number] , [place] tel: [phone] [facility] Lab draw (chief complaint) Blood test prior to procedure 4 Cynthia White. [address], [place], [id number] , [place]. tel: [phone] Referring Provider: Tenisha Leon [place]. [facility], [address], [place], [id number] , [place] tel: [phone] [facility] No Information 3 Cynthia White. [address], [place], [id number] , [place]. tel: [phone] [facility], [address], [place], [id number] , [place] tel: [phone] [facility] COVID Test (chief complaint) Encounter for screening for COVID-19 3 Cynthia White. [address], [place], [id number] , [place]. tel: [phone] [facility], [address], [place], [id number] , [place] tel: [phone] [facility] Lab Draw (chief complaint) Encounter for antibody response examination 3 Cynthia White. [address], [place], 764630982 , [place]. tel: [phone] [facility], [address] [place] [address], [id number] , [place] tel: [phone] [facility] lab (chief complaint) Other specified disorders of pancreatic internal secretion 3 Cynthia White. [address] [place], [place], 303569238 , [place]. tel: [phone] [facility], [address] [place] [address], [id number] , [place] tel: [phone] [facility] Lab draw (chief complaint) Blood test prior to procedure 3 Cynthia White. [address], [place], [id number] , [place]. tel: [phone] [facility], [address] [place] [address], [id number] , [place] tel: [phone] [facility] lab draw (chief complaint) Endocrine disorder 3 Cynthia White. [address], [place], [id number] , [place]. tel: [phone] [facility], [address] [place] [address], [id number] , [place] tel: [phone] [facility] Encounter for screening for COVID-19 3 Visci DO Miguel. [address] [place], [place], [id number] , [place]. tel: [phone] [facility], [address], [place], [id number] , [place] tel: [phone] [facility] Lab draw (chief complaint) Blood test prior to procedureEncounter for screening for COVID-19 3 Visci DO Miguel. [address] [place], [place], [id number] , [place]. tel: [phone] [facility], [address], [place], [id number] , [place] tel: [phone] [facility] No Information 3 Visci DO Miguel. [address], [place], [id number] , [place]. tel: [phone] [facility], [address], [place], [id number] , [place] tel: [phone] [facility] No Information 3 Visci DO Miguel. [address], [place], [id number] , [place]. tel: [phone] [facility], [address], [place], [id number] , [place] tel: [phone] [facility] No Information 2 Visci DO Miguel. [address], [place], [id number] , [place]. tel: [phone] [facility], [address], [place], 929730758 , [place] tel: [phone] [facility] No Information 2 Visci DO Miguel. [address], [place], [id number] , [place]. tel: [phone] [facility], [address], [place], [id number] , [place] tel: [phone] [facility] No Information 2 Visci DO Miguel. [address], [place], [id number] , [place]. tel: [phone] [facility], [address], [place], [id number] , [place] tel: [phone] [facility] Encounter for screening for respiratory tuberculosis 2 Visci DO Miguel. [address], [place], [id number] , [place]. tel: [phone] [facility], [address], [place], [id number] , [place] tel: [phone] [facility] Encounter for screening for respiratory tuberculosis 2 Visci DO Miguel. [address], [place], [id number] , [place]. tel: [phone] [facility], [address], [place], 572710124 , [place] tel: [phone] [facility] Encounter for screening for respiratory tuberculosis 2 Visci DO Miguel. [address], [place], 991042485 , [place]. tel: [phone] [facility], [address], [place], 917112459 , [place] tel: [phone] [facility] No Information 1 Visci DO Miguel. [address], [place], [id number] , [place]. tel: [phone] [facility], [address], [place], 786183295 , [place] tel: [phone] [facility] No Information 1 Visci DO Miguel. [address], [place], [id number] , [place]. tel: [phone] [facility], [address], [place], 519382600 , [place] tel: [phone] [facility] No Information 1 Visci DO Miguel. [address], [place], [id number] , [place]. tel:[phone] Family History Family Member Type Diagnosis Age [...] Insurance type Covered republican ID Authoriza tion(s) [place] BL [id number] [employer] [employer] [id number] [place] BL [id number] [employer] [employer] [id number] [employer] BL [id number] [employer] [employer] [id number] [employer] [employer] [id number] Social History Type Description Quantity Date Captured [...] du e Goal Influenza vaccine. Due on Co due Goal Unhealthy drug use screening . [...] on due Goal Influenza vaccine. Due on Co due Goal PRAPARE ASSESSMENT. Due on due [...] on due Goal PRAPARE ASSESSMENT. Due on D due Goal PAP. Due on due Goal [...]
--- OUTSIDE RECORDS SUMMARY | 2025-05-16 08:30 | XMS_ITS | Encounter Summary ---
Author Organization [facility] Address [address] [facility] [place] [address] Care Team Providers Care Manager Documentation Name Role Phone Unavailable Primary Care Provider Unavailabl e Reason for Visit * Reason Comments Routine Visit Encounter Details Date Type Department Care Team (Latest Contact Info) Description 05/16/2025 8:30 AM EDT Routine [facility] BCP [address] [facility] [place] [address] Cain Donaldson, DO [address] [facility] [address]sey [place], [id number] 34 weeks gestation of ([facility]); Third trimester ([facility]); Conceived by in vitro fertilization; Factor 5 Leiden mutation, heterozygous ([facility]); Insulin controlled gestational diabetes mellitus (GDM) during , antepartum ([facility]); Non-recurrent acute serous otitis media of left ear Social History Tobacco Use Types Packs/Day Years [...] Sign Reading Time Taken Comments Blood Pressure 120/70 05/16/2025 8:37 AM EDT Pulse - - Temperature - - Respiratory Rate - - Oxygen Saturation - - Inhaled Oxygen Concentration - - Weight 108 kg (239 lb) 05/16/2025 8:37 AM EDT Height - - Body Mass Index 43.71 04/18/2025 10:34 AM EDT documented in this encounter Progress Notes * Bee Parkinson LPN - 05/16/2025 8:30 AM EDT Reason for Appointment: Patient ID: Kevin Conley is a 29 y.o. female who presents for Routine Visit Patient presents today for Return OB appointment. MEDICATIONS Current Outpatient Medications Medication Instructions Alcohol Swabs (Alcohol Prep Pad) 70 % pads 1 Pad, Topical, Daily, Use four times daily to check FSBS. Blood Glucose Monitoring Suppl ([employer] Glucometer) w/Device kit 1 kit, Does not apply, Daily, Use four times daily to check FSBS. In the morning prior to breakfast & 1 hour after each meal for a total of 4times daily. insulin glargine (Lantus SoloStar) 100 UNIT/ML pen Inject under the skin insulin syringe 29G X 1/2 0.5 mL [...] Medical History: Diagnosis Date SAB (spontaneous ) ([facility]) 10/2021 HISTORY PAST MEDICAL HISTORY SOCIAL HISTORY Past Medical History: Diagnosis Date SAB (spontaneous ) ([facility]) 10/2021 Social History Tobacco Use Smoking [...] nursing note reviewed. Exam conducted with a boat person present. Vitals: Estimated body mass index is 43.71 kg/m?? as calculated from the following: Height as of 04/18/25: 5' 2 . Weight as of this encounter: 239 lb. BP: 120/70 No LMP recorded. Patient is . ASSESSMENT & PLAN ICD-10-CM 1. 34 weeks gestation of ([facility]) Z3A.34 POCT urinalysis dipstick manually resulted Urine culture 2. Third trimester ([facility]) Z34.93 POCT urinalysis dipstick manually resulted 3. Conceived by in vitro fertilization Z78.9 Urine culture 4. Factor 5 Leiden mutation, heterozygous ([facility]) D68.51 5. Insulin controlled gestational diabetes mellitus (GDM) during , antepartum ([facility]) O24.414 Patient presents today for a routine obstetrics appointment. Patient is currently 34w3d with a Estimated Date of Delivery: 06/24/25. Patient complaints of possible ear infection Left Ear. LE swelling noted as well. Medication sent to pharmacy for patient. There is a week that patient will not be able to attend NST/BPP on May 31, due to prior engagement with court for custody for another child. Patient to return to clinic in 1 week. Documented by Bee Parkinson LPN on behalf of: Cain Donaldson DO documented in this encounter Plan of Treatment Upcoming Encounters Date Type Department Care Team (Late st Contact Info) Description 05/30/2025 8:30 AM EDT Routine [facility] BCP OB [address] [place] [address] Cain Donaldson DO [address] [place], [place] [id number] 06/06/2025 8:40 AM EDT Routine [facility] BCP OB [address] [place] [address] [place] [address] Christy Schwartz PA [address] [place] [address] [place] [address] 06/13/2025 8:30 AM EDT Routine [facility] BCP OB [address] [place] [address] [place] [address] Christy Schwartz PA [address] [place] [address] [place] [address] Scheduled Orders Name Type Priority Associated Diagnoses Orde r Schedule Urine culture Microbiology Routine 34 weeks gestation of ([facility]) Conceived by in vitro fertilization Ordered: 05/16/2025 documented as of this encounter Goals Goal Patient Goal Type Associated Problems Recent Progress Patient-Stated? Author Reminders Care Plan OB Reminders No Open Scheduling, Background documented as of this encounter Procedures Procedure Name Priority Date/Time Associated Diagnosis Comments POCT URINALYSIS DIPSTICK Routine 05/16/2025 8:43 AM EDT 34 weeks gestation of ([facility]) Third trimester ([facility]) documented in this encounter Results * (ABNORMAL) POCT urinalysis dipstick manually resulted (05/16/2025 8:43 AM EDT) Color, UA Yellow Clarity, UA Clear Glucose, UA Negative Negative - 2000(110) ++++ mg/dL Bilirubin, UA Negative Negative - 4(70) +++ mg/dL Ketones, UA Negative Negative - 160(16) ++++ mg/dL Spec Grav, UA 1.020 1 - 1.03 Blood, UA Positive Negative - 50 Warren/mcL Comment:trace-intact pH, UA 7.0 5 - 9 Protein, UA Negative Negative - 2000(20) ++++ mg/dL Urobilinogen, UA 0.2 0.2 - 12 mg/dL Leukocytes, UA Moderate Negative - 500+++ Malick/mcL Nitrite, UA Negative Negative - Positive Urine 05/16/2025 8:43 AM EDT Cain Donaldson DO POINT OF CARE TEST ENTER/EDIT OR DERABLES Final Result documented in this encounter Visit Diagnoses Diagnosis 34 weeks gestation of ([facility]) Third trimester ([facility]) state, incidental Conceived by in vitro fertilization Factor 5 Leiden mutation, heterozygous ([facility]) Insulin controlled gestational diabetes mellitus (GDM) during , antepartum ([facility]) Non-recurrent acute serous otitis media of left ear documented in this encounter Additional Health Concerns Active Problems Noted Date Diagnosed Date OB Reminders 11/26/2024 documented as of this encounter
--- OUTSIDE RECORDS SUMMARY | 2025-05-23 13:30 | XMS_ITS | Encounter Summary ---
Author Organization [facility] tem Address [id number] [address] [place] [address] Care Team Providers Care Presser Hand Name Role Phone Unavailable Primary Care Provider Unavailabl e Encounter Details Date Type Department Care Team (Late st Contact Info) Description 05/23/2025 1:30 PM EDT Telemedicine Maternal- Medicine at [facility] [address] [place] [phone] Devika Pulido, PAMoniqueC [address] [address] Insulin controlled gestational diabetes mellitus (GDM) in [...] is present at home, provider present at [facility] HISTORY OF PRESENT ILLNESS: Kevin Conley is [...] route., Disp: , Rfl: lancets (LANCETS,ULTRA THIN) [facility], Use to check blood sugar 4 times [...] Delivery recommendations : - Recommend delivery at [id number] - Discuss delivery if estimated weight is [...] by e-mail to: or by fax to: [phone] Devika Pulido PA-C Maternal- Medicine Office phone: [phone] Devika Pulido PA-C 05/23/25 1608 documented in [...]
--- OUTSIDE RECORDS SUMMARY | 2025-05-26 08:50 | XMS_ITS | Encounter Summary ---
Author Organization [facility] Address [address] [facility] [place] [address] Care Team Providers Care Disbursing Officer Name Role Phone Unavailable Primary Care Provider Unavailabl e Reason for Visit * Reason Comments Routine Visit Encounter Details Date Type Department Care Team (Late st Contact Info) Description 05/26/2025 8:50 AM EDT Routine [facility] BCP OB [address] [facility] [place] [address] Christy Schwartz PA [address] [facility] [address] [place], [facility]11 Third trimester ([facility]); 36 weeks gestation of ([facility]) Social History Tobacco Use Types Packs/Day Years [...] Sign Reading Time Taken Comments Blood Pressure 130/84 05/26/2025 8:55 AM EDT Pulse - - Temperature - - Respiratory Rate - - Oxygen Saturation - - Inhaled Oxygen Concentration - - Weight 107 kg (235 lb 8 oz) 05/26/2025 8:55 AM E DT Height - - Body Mass Index 43.07 04/18/2025 10:34 AM EDT documented in this encounter Progress Notes * LEELEE Keita - 05/26/2025 8:50 AM EDT Reason for Appointment: Patient ID: Kevin Conley is a 29 y.o. female who presents for Routine Visit Patient presents today for Return OB appointment. MEDICATIONS Current Outpatient Medications Medication Instructions Alcohol Swabs (Alcohol Prep Pad) 70 % pads 1 Pad, Topical, Daily, Use four times daily to check FSBS. Blood Glucose Monitoring Suppl ([employer] Glucometer) w/Device kit 1 kit, Does not [...] (spontaneous ) ([facility]) 10/2021 HISTORY PAST MEDICAL HISTORY SOCIAL HISTORY Past Medical History: Diagnosis Date SAB (spontaneous ) ([facility]) 10/2021 Social History Tobacco Use Smoking status: [...] reviewed. Vitals: Estimated body mass index is 43.07 kg/m?? as calculated from the following: Height as of 04/18/25: 5' 2 . Weight as of this encounter: 235 lb 8 oz. BP: 130/84 No LMP recorded. Patient is . ASSESSMENT & PLAN ICD-10-CM 1. Third trimester ([facility]) Z34.93 CULTURE, GROUP B STREP WITH SUSCEPTIBLITY CULTURE, GROUP B STREP WITH SUSCEPTIBLITY POCT urinalysis dipstick manually resulted 2. 36 weeks gestation of ([facility]) Z3A.36 Return OB: Patient presents today for a routine obstetrics appointment. Patient is currently 35w6d . Patient states she is doing well but has complaints of being tired due to current . Patient has verbalizes frequent movement. labor precautions was discussed/given and patient was instructed to perform kick counts three times a day. Orders Placed This Encounter Procedures CULTURE, GROUP B STREP WITH SUSCEPTIBLITY POCT urinalysis dipstick manually resulted Patient is doing well but has complaints of being tired and having maternal discomfort due to . Patient verbalized frequent movement and was instructed to perform kick counts three times per day. labor precautions were given, LARC consent was signed/declined, and GBS was obtained. Orders Placed This Encounter Procedures CULTURE, GROUP B STREP WITH SUSCEPTIBLITY POCT urinalysis dipstick manually resulted Follow Up: Patient is to return to office in 1 week for routine OB appointment Follow Up: Patient is to return to office in 1 week for routine OB appointment. documented in this encounter Plan of Treatment Upcoming Encounters Date Type Department Care Team (Late st Contact Info) Description 05/30/2025 8:30 AM EDT Routine [facility] [address] [facility] [place] [phone] Cain Donaldson, [address] [place] [address] 06/06/2025 8:40 AM EDT Routine [facility] BCP OB [address] [place] [address] [place] [address] Christy Schwartz PA [address] [place] [address] [place], [place] [address] 06/13/2025 8:30 AM EDT Routine [facility] OB [address] [place] [address] [place] [address] Christy Schwartz PA [address] [place] [address] [place] [address] Scheduled Orders Name Type Priority Associated Diagnoses Orde r Schedule CULTURE, GROUP B STREP WITH SUSCEPTIBLITY Lab Routine Third trimester ([facility]) Expected: 05/26/2025, Expires: 05/26/2026 documented as of this encounter Goals Goal Patient Goal Type Associated Problems Recent Progress Patient-Stated? Author Reminders Care Plan OB Reminders No Open Scheduling, Background documented as of this encounter Procedures Procedure Name Priority Date/Time Associated Diagnosis Comments POCT URINALYSIS DIPSTICK Routine 05/26/2025 8:59 AM EDT Third trimester ([facility]) documented in this encounter Results * (ABNORMAL) POCT urinalysis dipstick manually resulted (05/26/2025 8:59 AM EDT) Color, UA Yellow Clarity, UA Clear Glucose, UA Negative Negative - 1999(110) ++++ mg/dL Bilirubin, UA Negative Negative - 4(70) +++ mg/dL Ketones, UA Negative Negative - 160(16) ++++ mg/dL Spec Grav, UA 1.010 1 - 1.03 Blood, UA Positive Negative - 50 Warren/mcL Comment:Small pH, UA 6.5 5 - 9 Protein, UA Negative Negative - 1999(20) ++++ mg/dL Urobilinogen, UA 0.2 0.2 - 12 mg/dL Leukocytes, UA Positive Negative - 500+++ Malick/mcL Comment:small Nitrite, UA Negative Negative - Positive Urine 05/26/2025 8:59 AM EDT Christy MCKOY POINT OF CARE TEST ENTER/EDIT OR DERABLES Final Result documented in this encounter Visit Diagnoses Diagnosis Third trimester ([facility]) state, incidental 36 weeks gestation of ([facility]) documented in this encounter Additional Health Concerns Active Problems Noted Date Diagnosed Date OB Reminders 11/26/2024 documented as of this encounter
--- OUTSIDE RECORDS SUMMARY | 2025-05-26 15:33 | XMS_ITS | Encounter Summary ---
Author Organization [facility] Address [address] [place] [address] Care Team Providers Care Referral Management Liaison Name Role Phone Unavailable Primary Care Provider Unavailabl e Encounter Details Date Type Department Care Team (Late Contact Info) Description 04/22/2025 Abstract [facility] [address] [place] [phone] Cain Donaldson DO [address] [place] [address] Dr Kelsey Prieto, [facility]11 Social History Tobacco Use Types Packs/Day Years [...] Department Care Team (Late Contact Info) Description 05/30/2025 8:30 AM EDT Routine [facility] [address] [place] [address] Cain Donaldson DO [facility] Inocencia Prieto, [place] [id number] 06/06/2025 8:40 AM EDT Routine [facility] OB [address] [place] [address] Christy Schwartz PA [address] [place] [address] [place] [address] 06/13/2025 8:30 AM EDT Routine [facility] OB [address] [place] [address] [place] [phone] Christy Schwartz PA [address] [facility] [place] [address] documented as of this encounter Goals Goal Patient Goal Type Associated Problems Recent Progress Patient-Stated? Author Reminders Care Plan OB Reminders No Open Scheduling, Background documented as of this encounter Visit Diagnoses Not on filedocumented in this encounter Additional Health Concerns Active Problems Noted Date Diagnosed Date OB Reminders 11/26/2024 documented as of this encounter
--- OUTSIDE RECORDS SUMMARY | 2025-05-26 15:33 | XMS_ITS | Encounter Summary ---
Author Organization [facility] Address [address] [place] [address] Care Team Providers Care Personal Carer Name Role Phone Unavailable Primary Care Provider Unavailabl e Encounter Details Date Type Department Care Team (Late st Contact Info) Description 04/19/2025 Results Follow-Up [facility] [address] [facility] [place] [address] Mary Thorpe LPN [address] [place] [address] Social History Tobacco Use Types [...] [address] [facility] [place] [phone] Cain Donaldson DO 102 [facility] [place] [address] 06/06/2025 8:40 AM EDT Routine [facility] OB [address] [place] [address] [place] [phone] Christy Schwartz, PA [address] [facility] [address] 06/13/2025 8:30 AM EDT Routine [facility] OB [address] [place] [address] [place] [phone] Christy Schwartz, PA [address] [facility] [address] documented as of this encounter Goals Goal Patient Goal Type Associated Problems Recent Progress Patient-Stated? Author Reminders Care Plan OB Reminders No Open Scheduling, Background documented as of this encounter Visit Diagnoses Not on filedocumented in this encounter Additional Health Concerns Active Problems Noted Date Diagnosed Date OB Reminders 11/26/2024 documented as of this encounter
--- OUTSIDE RECORDS SUMMARY | 2025-05-26 15:33 | XMS_ITS | Encounter Summary ---
Author Organization [facility] Address [address] [place] [address] Care Team Providers Care Forestry Workers Name Role Phone Unavailable Primary Care Provider Unavailabl e Encounter Details Date Type Department Care Team (Late Contact Info) Description 05/26/2025 Bamboo flowsheet [facility] [address] [facility] [place] [address] Christy Schwartz PA [address] [place] [address] Dr [place], [id number] Social History Tobacco Use Types Packs/Day Years [...] 8:30 AM EDT Routine [facility] OB [address] [place], [place] [address] [address] Cain Donaldson DO [address] [place] [address] Dr Kelsey [place]eto, [place] [id number] 06/06/2025 8:40 AM EDT Routine [facility] OB [address] [place] [address] [place] [address] Christy Schwartz, PA [address] [place] [address] [place] [address] 06/13/2025 8:30 AM EDT Routine [facility] OB [address] [place] [address] [place] [phone] Christy Schwartz PA [address] [facility] [place] [address] documented as of this encounter Goals Goal Patient Goal Type Associated Problems Recent Progress Patient-Stated? Author Reminders Care Plan OB Reminders No Open Scheduling, Background documented as of this encounter Visit Diagnoses Not on filedocumented in this encounter Additional Health Concerns Active Problems Noted Date Diagnosed Date OB Reminders 11/26/2024 documented as of this encounter
--- OUTSIDE RECORDS SUMMARY | 2025-05-26 15:33 | XMS_ITS | Clinical Summary ---
Author Organization [facility] Address [address], [address] [place] [address] Care Team Providers Care Squeezer Operator Name Role Phone Unavailable Primary Care [...] Ab NONREACTIVE NONREACTIVE 12/23/19 6:10 PM EST [employer] Comment: The hepatitis C procedure used in [...] PM EST 12/23/2024 6:12 PM EST Result [facility] Cain Donaldson MD IMMUNOLOGY ORDERABLES Fin al Result [facility] [address] [place] [address], [facility] [phone] [id number] [place] [address], [facility] [phone] * HIV Screen (12/23/2024 6:10 PM EST) HIV Ag/Ab NONREACTIVE NONREACTIVE 12/23/2024 6:10 PM EST [employer] Comment: No laboratory evidence of HIV infection. If acute HIV infection is suspected, consider testing for HIV-1 RNA. 12/23/2024 6:10 PM EST 12/23/2024 6:12 PM EST Cain Donaldson MD IMMUNOLOGY ORDERABLES Fin al Result [facility] [address] [place] [address], [facility] [phone] [facility] [employer] [address] [place] [address], [facility] [phone] from Last 3 Months or Most Recently Relevant to Health Maintenance Insurance [employer]
--- OUTSIDE RECORDS SUMMARY | 2025-05-26 15:34 | XMS_ITS | Encounter Summary ---
Author Organization [facility] Address [address] [place] [address] Care Team Providers Care Miller Head Wet Process Name Role Phone Unavailable Primary Care Provider Unavailabl e Encounter Details Date Type Department Care Team (Late Contact Info) Description 12/24/2024 Abstract [facility] [address] [facility] [phone] Cain Donaldson DO [address] [place] [address] Karin Prieto, [facility]11 Social History Tobacco Use Types Packs/Day Years [...] Routine [facility] OB [address] [place] [address] Cain Donaldson DO [facility] Inocencia [place], [place] [id number] 06/06/2025 8:40 AM EDT Routine [facility] OB [address] [place] [address] Christy Schawrtz PA [address] [place] [address] [place] [address] 06/13/2025 8:30 AM EDT Routine [facility] OB [address] [place] [address] [place] [phone] Christy Schwartz PA 102 [facility] [place] [address] documented as of this encounter Goals Goal Patient Goal Type Associated Problems Recent Progress Patient-Stated? Author Reminders Care Plan OB Reminders No Open Scheduling, Background documented as of this encounter Visit Diagnoses Not on filedocumented in this encounter Additional Health Concerns Active Problems Noted Date Diagnosed Date OB Reminders 11/26/2024 documented as of this encounter
--- OUTSIDE RECORDS SUMMARY | 2025-05-26 15:34 | XMS_ITS | Encounter Summary ---
Author Organization [facility] Address [address] [place] [address] Care Team Providers Care Home Performance Laborer Name Role Phone Unavailable Primary Care Provider Unavailabl e Encounter Details Date Type Department Care Team (Late Contact Info) Description 01/10/2025 Abstract [facility] 102 [facility] [place] [phone] Cain Donaldson DO [address] [place] [address] Dr Kelsey Prieto, [facility]11 Social History Tobacco Use Types Packs/Day Years [...] AM EDT Routine [facility] [address] [facility] [place] [address] Cain Donaldson DO [facility] Inocencia [place], [place] [id number] 06/06/2025 8:40 AM EDT Routine [facility] OB [address] [place] [address] Christy Schwartz PA [address] [place] [address] [place] [address] 06/13/2025 8:30 AM EDT Routine [facility] OB [address] [place] [address] [place] [address] Christy Schwartz PA [address] [facility] [place] [address] documented as of this encounter Goals Goal Patient Goal Type Associated Problems Recent Progress Patient-Stated? Author Reminders Care Plan OB Reminders No Open Scheduling, Background documented as of this encounter Visit Diagnoses Not on filedocumented in this encounter Additional Health Concerns Active Problems Noted Date Diagnosed Date OB Reminders 11/26/2024 documented as of this encounter
--- OUTSIDE RECORDS SUMMARY | 2025-05-26 15:34 | XMS_ITS | Clinical Summary ---
Author Organization [facility] Address [address] [place] [address] Care Team Providers Care Crime Prevention Worker Name Role Phone Unavailable Primary Care Provider Unavailabl e Allergies No known active allergies Medications Alcohol Swabs (Alcohol Prep Pad) 70 % padsIndications: Elevated glucose tolerance test, resulting from in vitro fertilization, antepartum ([facility]) Apply 1 Pad topically Daily Use four times daily to check FSBS. 150 each 3 5 Active Blood Glucose Monitoring Suppl (D-Care Glucometer) w/Device kitIndications:E levated glucose tolerance test, resulting from in vitro fertilization, antepartum ([facility]) 1 kit Daily Use four times daily to check FSBS. In the morning prior to breakfast & 1 hour after each meal for a total of 4times daily. 1 kit 5 12/23/19 26 Active insulin syringe 29G X 1/2 0.5 mL miscIndications: Gestational diabetes mellitus (GDM), antepartum, gestational diabetes method of control unspecified ([facility]) Use 2 syringes in the morning [...] Encounters Date Type Department Care Team Description 05/26/2025 8:50 AM EDT Routine [facility] [address] [place] [address] Christy Schwartz PA Third trimester ([facility]); 36 weeks gestation of ([facility]) 05/26/2025 Bamboo flowsheet [facility] [address] [place] [address] Christy Schwartz PA 05/26/2025 Travel 05/24/2025 Clinisync Result Encounter [facility] External Department Unsolicited Belgica Scherer NP 05/17/2025 Clinisync Result Encounter [facility]OMS External Department Unsolicited Belgica Scherer NP 05/16/2025 8:30 AM EDT Routine [facility] [address] [place] [address] Alfredo Donaldson DO 34 weeks gestation of ([facility]); Third trimester ([facility]); Conceived by in vitro fertilization; Factor 5 Leiden mutation, heterozygous ([facility]); Insulin controlled gestational diabetes mellitus (GDM) during , antepartum ([facility]); Non-recurrent acute serous otitis media of left ear 05/16/2025 Bamboo flowsheet [facility] [address] [place] [address] [place] [address] Alfredo Donaldson DO 05/10/2025 8:00 AM EDT Ancillary Procedure [facility] [address] [place] [address] Insulin controlled gestational diabetes mellitus (GDM) during , antepartum ([facility]); Gestational diabetes mellitus (GDM), antepartum, gestational diabetes method of control unspecified ([facility]) 05/10/2025 Clinisync Result Encounter [facility] External Department Unsolicited Belgica Scherer NP 05/09/2025 Travel 05/04/2025 Clinisync Result Encounter [facility] External Department Unsolicited Belgica Scherer NP 05/03/2025 8:50 AM EDT Routine [facility] [address] [place] [address] Christy Schwartz PA Gestational diabetes mellitus (GDM), antepartum, gestational diabetes method of control unspecified ([facility]) (Primary Dx); Third trimester ([facility]); 32 weeks gestation of ([facility]); Conceived by in vitro fertilization; Factor 5 Leiden mutation, heterozygous ([facility]); Insulin controlled gestational diabetes mellitus (GDM) during , antepartum ([facility]); size inconsistent with dates ([facility]) 05/03/2025 Bamboo flowsheet [facility] [address] [place] [address] Christy Schwartz PA 04/27/2025 Clinisync Result Encounter [facility] External Department Unsolicited Belgica Scherer NP 04/26/2025 Travel 04/22/2025 Abstract [facility] [address] [place] [address] Alfredo Donaldson, DO 04/19/2025 Results Follow-Up [facility] [address] [place] [address] Mary Thorpe LPN 04/19/2025 Clinisync Result Encounter [facility] External Department Unsolicited Alfredo Donaldson, DO 04/19/2025 Clinisync Result Encounter [facility] External Department Unsolicited Alfredo Donaldson, DO 04/18/2025 10:10 AM EDT Routine [facility] [address] [place] [address] Alfredo Donaldson, DO Third trimester ([facility]); 30 weeks gestation of ([facility]) 04/18/2025 Clinisync Result Encounter [facility] External Department Unsolicited Alfredo Donaldson, DO 04/18/2025 Bamboo flowsheet [facility] [address] [place] [address] Alfredo Donaldson, DO 04/17/2025 Clinisync Result Encounter [facility]OMS External Department Unsolicited MendozaAlfredo wong, DO 04/14/2025 Abstract [facility] [address] [place] [address] Yue Dumont, [place] 04/11/2025 Clinisync Result Encounter [facility]OM[facility] External Department Unsolicited Mendoza, Alfredo, DO 04/11/2025 Clinisync Result Encounter [facility] External Department Unsolicited MendozaShakiray, DO 04/05/2025 Clinisync Result Encounter [facility] External Department Unsolicited Mendoza, Alfredo, DO 03/30/2025 8:50 AM EDT Routine [facility] [address] [place] [address] Christy Schwartz PA Second trimester ([facility]); 27 weeks gestation of ([facility]); Gestational diabetes mellitus (GDM), antepartum, gestational diabetes method of control unspecified ([facility]); Factor 5 Leiden mutation, heterozygous ([facility]); Conceived by in vitro fertilization 03/30/2025 Bamboo flowsheet [facility] [address] [place] [address] Christy Schwartz PA 03/30/2025 Travel 03/18/2025 Abstract [facility] [address] [place] [address] Yue Dumont, [place] 03/03/2025 8:40 AM EDT Routine [facility] [address] [place] [address] Alfredo Donaldson, DO 23 weeks gestation of ([facility]); Second trimester ([facility]); induced hypertension, antepartum ([facility]); Insulin controlled gestational diabetes mellitus (GDM) during , antepartum ([facility]) 03/03/2025 Bamboo flowsheet [facility] [address] [place] [address] Alfredo Donaldson, 03/02/2025 Travel from Last 3 Months Social [...] oz) 05/26/2025 8:55 AM E DT Height 157.5 cm (5' 2 ) 04/18/2025 10:34 AM EDT Body Mass Index 43.07 04/18/2025 10:34 AM EDT Plan of Treatment Upcoming Encounters Date Type Department Care Team (Late st Contact Info) Description 05/30/2025 8:30 AM EDT Routine [facility] [address] [place] [phone] Alfredo Donaldson DO [address] [facility] [place] [address] 06/06/2025 8:40 AM EDT Routine [facility] [address] [place] [phone] Christy Schwartz PA [address] [place] [address] [place] [address] 06/13/2025 8:30 AM EDT Routine [facility] [address] [place] [address] [place] [phone] Christy Schwartz PA [address] [place] [address] [place], [place] [id number] Health Maintenance Due Date Last Done Comments HPV/Cotest 2023 Influenza Vaccine (#1) 2025 08/03/2024, 2022, 10/07/2022 Cervical Cancer Screening 01/21/2028 Pap Smear 01/21/2028 01/20/2025 Goals Goal Patient Goal Type Associated Problems Recent Progress Patient-Stated? Author Reminders Care Plan OB Reminders No Open Scheduling, Background Procedures Procedure Name Priority Date/Time Associated Diagnosis Comments POCT URINALYSIS DIPSTICK Routine 05/26/2025 8:59 AM EDT Third trimester ([facility]) US OB BPP W NON-STRESS 05/24/2025 9:55 PM EDT US OB BPP W NON-STRESS 05/17/2025 8:07 AM EDT URINARY TRACT INFECTION (HTRX) Routine 05/16/2025 9:46 AM EDT POCT URINALYSIS DIPSTICK Routine 05/16/2025 8:43 AM EDT 34 weeks gestation of ([facility]) Third trimester ([facility]) US OB BPP W NON-STRESS 05/10/2025 6:23 PM EDT US OB FOLLOW UP TRANSABDOMINAL APPROACH Routine 05/10/2025 8:32 AM EDT Insulin controlled gestational diabetes mellitus (GDM) during , antepartum ([facility]) Gestational diabetes mellitus (GDM), antepartum, gestational diabetes method of control unspecified ([facility]) US OB BPP W NON-STRESS 05/04/2025 7:58 AM EDT POCT URINALYSIS DIPSTICK Routine 05/03/2025 9:11 AM EDT Third trimester ([facility]) US OB BPP W NON-STRESS 04/27/2025 [...] 04/18/2025 9:05 PM EDT TBH UA (CLEAN/CATCH) GRAZING AIDE/MICRO IF IND. Routine 04/18/2025 9:05 PM EDT POCT URINALYSIS DIPSTICK Routine 04/18/2025 10:40 AM EDT Third trimester ([facility]) TBH TOTAL PROTEIN 24 HOUR URINE Routine [...] 9:08 AM EDT 23 weeks gestation of ([facility]) Second trimester ([facility]) PAP SMEAR Routine 01/20/2025 12:00 AM EDT from Last 3 Months or Most Recently Relevant to Health Maintenance Results * (ABNORMAL) POCT urinalysis dipstick manually resulted (05/26/2025 8:59 AM EDT) Only the most recent of5 resultswithin the time period is included. Color, [...] Result * US OB BPP W NON-STRESS (05/24/2025 9:55 PM EDT) Only the most recent of8 resultswithin the time period is included. Anatomical Region Laterality Modality Other 05/24/2025 9:55 PM EDT Narrative 05/24/2025 9:57 PM EDT [address] [address] Ultrasound Report Signed Patient: KEVIN WHITE MR#: [id number] : 1995 Acct:[id number] Age/Sex: 29 / F ADM Date: 05/24/25 Loc: US Attending Dr: Belgica Scherer Ordering Physician: Belgica Scherer Date of Service: 05/24/25 Procedure(s): US OB BPP w non-stress Accession Number(s): [id number] cc: Belgica Scherer; Alfredo Donaldson D.O. [address] [address] Patient Name: KEVIN WHITE MRN: [facility]:[id number] date: 1995 Sex: F Assigned Patient Location: [facility] Current Patient Location: Accession/Order Number: [id number] Exam Date: 05/24/2025 21:54 Report Date: 05/24/2025 21:55 At the request of: BELGICA SCHERER Procedure: US OB BPP w non-stress Ultrasound biophysical profile HISTORY: Gestational diabetes Adequate breathing movement, gross body movement, tone and amniotic fluid volume for total score of 8 out of 8. The amniotic fluid index is 17.4cm within normal limits. The heart rate 153 bpm. US/US OB BPP w non-stress IMPRESSION: Adequate ultrasound biophysical profile Impression dictated by: Zion Steen M.D. 05/24/2025 9:55 PM Dictation Location: [place] [address] Electronically authenticated by: [id number] Y Date: 05/24/2025 21:55 Dictated By: Zion Steen D.O. Signed By: 05/24/252156 DD/ 54 TD/TT: Senior Software Test Engineer: Procedure Note Radiology, Radiologist, - 05/24/[address] [address] Ultrasound Report Signed Patient: KEVIN WHITE TMR#: [id number] : 1995Acct:[id number] Age/Sex: 29 / FADM Date: 05/24/25 Loc: US Attending Dr: Belgica Scherer Ordering Physician: Belgica Scherer Date of Service: 05/24/25 Procedure(s): US OB BPP w non-stress Accession Number(s): [id number] cc: Belgica Scherer; Alfredo Donaldson D.O. The [place] [id number] Patient Name: KEVIN WHITE MRN: [id number] date: 1995 Sex: F Assigned Patient Location: [facility] Current Patient Location: Accession/Order Number: [id number] Exam Date: 05/24/2025 21:54 Report Date: 05/24/2025 21:55 At the request of: BELGICA SCHERER Procedure: US OB BPP w non-stress Ultrasound biophysical profile HISTORY: Gestational diabetes Adequate breathing movement, gross body movement, tone and amniotic fluid volume for total score of 8 out of 8. The amniotic fluidindex is 17.4cm within normal limits. The heart rate 153 bpm. US/US OB BPP w non-stress IMPRESSION: Adequate ultrasound biophysical profile Impression dictated by: Zion Steen M.D. 05/24/2025 9:55 PM Dictation Location: [place] [address] Electronically authenticated by: [id number] Y Date: 1:55 Dictated By: Zion Steen D.O. Signed By:05/24/252156 DD/ 54 TD/TT: Senior Software Test Engineer: us Belgica Scherer GEOSPATIAL SCIENTIST [facility] Final Resul t * URINARY TRACT INFECTION (HTRX) (05/16/2025 9:46 AM EDT) ACINETOBACTER MARIO 0 19.961 - 24.689 ppm 05/17/2025 7:54 AM EDT [facility] ACINETOBACTER BAUMANII Not Detected 19.961 - 24.689 ppm 05/17/2025 7:54 AM EDT [facility] CITROBACTER FREUNDII 0 23.000 - 32.015 ppm 05/17/2025 7:54 AM EDT [facility] CITROBACTER FREUNDII Not Detected 23.000 - 32.015 ppm 05/17/2025 7:54 AM EDT [facility] ENTEROBACTER AEROGENES, CLOACAE 0 23.000 - 32.290 ppm 05/17/2025 7:54 AM EDT [facility] ENTEROBACTER AEROGENES, CLOACAE Not Detected 23.000 - 32.290 ppm 05/17/2025 7:54 AM EDT [facility] ENTEROCOCCUS FAECALIS, FAECIUM 0 26.000 - 33.043 ppm 05/17/2025 7:54 AM EDT [facility] ENTEROCOCCUS FAECALIS, FAECIUM Not Detected 26.000 - 33.043 ppm 05/17/2025 7:54 AM EDT [facility] ESCHERICHIA COLI 0 23.000 - 28.500 ppm 05/17/2025 7:54 AM EDT [facility] ESCHERICHIA COLI Not Detected 23.000 - 28.500 ppm 05/17/2025 7:54 AM EDT [facility] KLEBSIELLA PNEUMONIAE, OXYTOCA 0 23.000 - 31.865 ppm 05/17/2025 7:54 AM EDT [facility] KLEBSIELLA PNEUMONIAE, OXYTOCA Not Detected 23.000 - 31.865 ppm 05/17/2025 7:54 AM EDT [facility] MORGANELLA MORGANII 0 19.961 - 24.689 ppm 05/17/2025 7:54 AM EDT [facility] MORGANELLA MORGANII Not Detected 19.961 - 24.689 ppm 05/17/2025 7:54 AM EDT [facility] PROTEUS MIRABILIS, VULGARIS 0 23.000 - 28.500 ppm 05/17/2025 7:54 AM EDT [facility] PROTEUS MIRABILIS, VULGARIS Not Detected 23.000 - 28.500 ppm 05/17/2025 7:54 AM EDT [facility] PSEUDOMONAS AERUGINOSA 0 23.000 - 31.801 ppm 05/17/2025 7:54 AM EDT [facility] PSEUDOMONAS AERUGINOSA Not Detected 23.000 - 31.801 ppm 05/17/2025 7:54 AM EDT [facility] STAPHYLOCOCCUS AUREUS 0 26.000 - 31.595 ppm 05/17/2025 7:54 AM EDT [facility] STAPHYLOCOCCUS AUREUS Not Detected 26.000 - 31.595 ppm 05/17/2025 7:54 AM EDT [facility] STREPTOCOCCUS AGALACTIAE (GROUP B STREP) 0 26.000 - 32.435 ppm 05/17/2025 7:54 AM EDT [facility] STREPTOCOCCUS AGALACTIAE (GROUP B STREP) Not Detected 26.000 - 32.435 ppm 05/17/2025 7:54 AM EDT [facility] DEAN ALBICANS, PARAPSILOSIS, TROPICALIS 0 23.000 - 30.347 ppm 05/17/2025 7:54 AM EDT [facility] DEAN ALBICANS, PARAPSILOSIS, TROPICALIS Not Detected 23.000 - 30.347 ppm 05/17/2025 7:54 AM EDT [facility] DEAN GLABRATA 0 23.000 - 31.618 ppm 05/17/2025 7:54 AM EDT [facility] DEAN GLABRATA Not Detected 23.000 - 31.618 ppm 05/17/2025 7:54 AM EDT [facility] DEAN KRUSEI 0 23.000 - 30.873 ppm 05/17/2025 7:54 AM EDT [facility] DEAN KRUSEI Not Detected 23.000 - 30.873 ppm 05/17/2025 7:54 AM EDT [facility] SERRATIA MARCESCENS 0 23.000 - 31.581 ppm 05/17/2025 7:54 AM EDT [facility] SERRATIA MARCESCENS Not Detected 23.000 - 31.581 ppm 05/17/2025 7:54 AM EDT [facility] STREPTOCOCCUS PYOGENES (GROUP A STREP) 0 19.961 - 24.689 ppm 05/17/2025 7:54 AM EDT [facility] STREPTOCOCCUS PYOGENES (GROUP A STREP) Not Detected 19.961 - 24.689 ppm 05/17/2025 7:54 AM EDT [facility] STAPHYLOCOCCUS EPIDERMIDIS, HAEMOLYTICUS, LUGDUNENSIS, SAPROPHYTICUS (URINA 0 19.961 - 24.689 ppm 05/17/2025 7:54 AM EDT [facility] STAPHYLOCOCCUS EPIDERMIDIS, HAEMOLYTICUS, LUGDUNENSIS, SAPROPHYTICUS (URINA Not Detected 19.961 - 24.689 ppm 05/17/2025 7:54 AM EDT [facility] STAPHYLOCOCCUS EPIDERMIDIS, HAEMOLYTICUS, LUGDUNENSIS, SAPROPHYTICUS (URINA 0 19.961 - 24.689 ppm 05/17/2025 7:54 AM EDT [facility] STAPHYLOCOCCUS EPIDERMIDIS, HAEMOLYTICUS, LUGDUNENSIS, SAPROPHYTICUS (URINA Not Detected 19.961 - 24.689 ppm 05/17/2025 7:54 AM EDT [facility] Urine 05/16/2025 9:46 AM EDT 05/17/2025 2:09 AM EDT us Alfredo Donaldson DO LAB BLOOD ORDERABLES Final Resul t [facility] [address] [address] * US OB follow up transabdominal approach [...] AM EDT Narrative 04/19/2025 8:52 [place] [address] Ultrasound Report Signed Patient: KEVIN WHITE MR#: [id number] : 1995 Acct:[id number] Age/Sex: 29 / F ADM Date: Loc: [facility] 254-[address]: Alfredo Donaldson D.O. Ordering Physician: Alfredo Donaldson D.O. Date of Service: 04/19/25 Procedure(s): US renal BI Accession Number(s): [id number] cc: Alfredo Donaldson D.O. [place] [address] Patient Name: KEVIN WHITE MRN: [id number] date: 1995 Sex: F Assigned Patient Location: LAB Current Patient Location: Accession/Order Number: [id number] Exam Date: 04/19/2025 08:46 Report Date: 04/19/2025 [...] Munson M.D. 04/19/2025 8:49 AM Dictation Location: [place] [address] Electronically authenticated by: [id number] Y Date: 04/19/2025 08:49 Dictated By: Justina Munson M.D. Signed By: 04/19/25 0852 DD/ 0849 TD/TT: Senior Software Test Engineer: Procedure Note Radiology, Radiologist, MD - 04/19/2025 [place] [address] Ultrasound Report Signed Patient: KEVIN WHITEMR#: [id number] : 1995Acct:[id number] Age/Sex: Date: Loc: [facility] 254-[address]: Alfredo Donaldson D.O. Ordering Physician: Alfredo Donaldson D.O. Date of Service: 04/19/25 Procedure(s): US renal BI Accession Number(s): [id number] cc: Alfredo Donaldson D.O. The [place] [address] Patient Name: KEVIN WHITE MRN: [facility]:[id number] date: 1995 Sex: F Assigned Patient Location: LAB Current Patient Location: Accession/Order Number: [id number] Exam Date: 04/19/2025 08:46 Report Date: 04/19/2025 [...] Munson M.D. 04/19/2025 8:49 AM Dictation Location: [place] [address] Electronically authenticated by: [id number] Y Date: 508:49 Dictated By: Justina Munson M.D. Signed By:04/19/25 0852 DD/ TD/TT: Senior Software Test Engineer: us Alfredo Mendoza DO [facility] Final Result * (ABNORMAL) [facility] GLUCOSE BLOOD (04/18/2025 11:43 PM EDT) GLUCOSE 108(H) 74 - 106 mg/dL [facility] 04/18/2025 11:4 3 PM EDT 04/19/2025 12:07 AM EDT Narrative [facility] - 04/19/2025 12:15 AM EDT us Alfredo Mendoza DO [facility] Final Result [facility] * (ABNORMAL) [facility]H CREATININE (04/18/2025 11:43 PM EDT) Only the most recent of2 resultswithin the time period is included. CREATININE 0.44(L) 0.55 - 1.02 mg/dL TBH TBH EGFR-AF [place] >60 >=60 mL/min/1.7 3m 2 TBH TBH EGFR-NON AF [place] >60 >=60 mL/min/1.7 3m 2 [facility] 04/18/2025 11:4 3 PM EDT 04/19/2025 12:48 AM EDT Narrative [facility] - 04/19/2025 12:56 AM EDT us Alfredo Chewzio DO [facility] Final Result [facility] * (ABNORMAL) ALL CBC WITH AUTO DIFF (04/18/2025 11:43 PM EDT) Only the most recent of2 resultswithin the time period is included. TB WBC 8.0 4.0 - 11.0 10 [...] Final Result [facility] * ALL BUN (04/18/2025 11:43 PM EDT) Only the most recent of2 resultswithin the time period is included. BLOOD UREA NITROGEN 13.0 7.0 - 18.0 mg/dL [facility] 04/18/2025 11:4 3 PM EDT 04/18/2025 11:53 PM EDT Narrative [facility] - 04/19/2025 12:04 AM EDT us Alfredo Mendoza DO [facility] Final Result Performing Organization Address [facility] Co de Phone Number [facility] * [...] DO [facility] Final Result Performing Organization Address [facility]/ZIP Co de Phone Number [facility] * (ABNORMAL) [facility] UA (CLEAN/CATCH) GRAZING AIDE/MICRO IF IND. (04/18/2025 9:05 PM EDT) COLOR [...] DO [facility] Final Result Performing Organization Address [facility]/ZIP Co de Phone Number [facility] * [facility] CREATININE URINE (04/18/2025 9:05 PM EDT) CREATININE URINE RANDOM 84.16 20.00 - 300.00 mg/dL [facility] 04/18/2025 9:05 PM EDT 04/18/2025 10:44 PM EDT Narrative [facility] - 04/18/2025 10:51 PM EDT [employer] DO [facility] Final Result [facility] * (ABNORMAL) [facility] TOTAL PROTEIN 24 HOUR URINE (04/17/2025 10:30 AM EDT) TOTAL PROTEIN URINE RANDOM 9.5 <=11.9 mg/dL [facility] TOTAL VOLUME 24 HOUR URINE 3,000 mL/24hr TBH TBH TOTAL PROTEIN 24 HOUR URINE 285.0(H) <=149.1 mg/24hr [facility] 04/17/2025 10:3 0 AM EDT 04/18/2025 10:26 AM EDT Narrative [facility] - 04/18/2025 10:45 AM EDT Alfredo Mendoza DO [facility] Final Result [facility] * SRMCOH PROTHROMBIN TIME INR W/O COUM [...] DO CL[facility] Final Result Performing Organization Address City/[facility]/ZIP Co de Phone Number [facility] * (ABNORMAL) [facility] AST (04/11/2025 4:52 PM EDT) ASPARTATE AMINO TRANSFERASE 11(L) 15 - 37 U/L TB 04/11/2025 4:52 PM EDT 04/11/2025 4:56 PM EDT Narrative [facility] - 04/11/2025 5:52 PM EDT Alfredo Mendoza DO [facility] Final Result Performing Organization Address City/[facility]/ZIP Co de Phone Number [facility] * [facility] APTT (04/11/2025 4:52 PM EDT) PARTIAL THROMBOPLASTIN TIME 27.3 22.3 - 36.2 sec TB 04/11/2025 4:52 PM EDT 04/11/2025 4:56 PM EDT Narrative [facility] - 04/11/2025 5:57 PM EDT us Alfredo Mendzoa DO [facility] Final Result Performing Organization Address [facility]/State/ZIP Co de Phone Number [facility] * ALL URIC ACID (04/11/2025 4:52 PM EDT) URIC ACID 2.8 2.6 - 6.0 mg/dL TB 04/11/2025 4:52 PM EDT 04/11/2025 4:56 PM EDT Narrative [facility] - 04/11/2025 5:52 PM EDT Alfredo Mendoza DO [facility] Final Result Performing Organization Address City/[facility]/ZIP Co de Phone Number [facility] * ALL LDH (04/11/2025 4:52 PM EDT) LACTATE DEHYDROGENASE 153 81 - 234 U/L [facility] 04/11/2025 4:52 PM EDT 04/11/2025 4:56 PM EDT Narrative [facility] - 04/11/2025 5:52 PM EDT Alfredo Mendoza DO [facility] Final Result [facility] * Pap Smear (01/20/2025 12:00 AM EDT) Swab Cervical swab / Unknown [facility] LAB CYTOLOGY ORDERABLES Final Result EXTERNAL LAB from Last 3 Months or Most Recently Relevant to Health Maintenance Additional Health Concerns Active Problems Noted Date Diagnosed Date OB Reminders 11/26/2024 Insurance [facility]
--- OUTSIDE RECORDS SUMMARY | 2025-05-26 15:34 | XMS_ITS | Encounter Summary ---
Author Organization [facility] Address [address] [place] [address] Care Team Providers Care Blockman Name Role Phone Unavailable Primary Care Provider Unavailabl e Encounter Details Date Type Department Care Team (Late Contact Info) Description 12/27/2024 Abstract [facility] B[facility] OB [address] [place] [address] Cain Donaldson DO [address] [place] [address] Karin [place], [facility]11 Social History Tobacco Use Types Packs/Day Years [...] [place] [address] Cain Donaldson DO [facility] In[place]encia [place], [place] 100[address]11 06/06/2025 8:40 AM EDT Routine [facility] BCP OB [address] [place] [address] Christy Schwartz PA [address] [place] [address] [place] [address] 06/13/2025 8:30 AM EDT Routine [facility] BCP OB [address] [place] [address] [place] [address] Christy Schwartz PA [address] [facility] [place] [address] documented as of this encounter Goals Goal Patient Goal Type Associated Problems Recent Progress Patient-Stated? Author Reminders Care Plan OB Reminders No Open Scheduling, Background documented as of this encounter Visit Diagnoses Not on filedocumented in this encounter Additional Health Concerns Active Problems Noted Date Diagnosed Date OB Reminders 11/26/2024 documented as of this encounter
--- OUTSIDE RECORDS SUMMARY | 2025-05-26 15:34 | XMS_ITS | Encounter Summary ---
Author Organization [facility] Address [address] [place] [address] Care Team Providers Care Texture Artist Name Role Phone Unavailable Primary Care Provider Unavailabl e Encounter Details Date Type Department Care Team (Late Contact Info) Description 05/24/2025 Clinisync Result Encounter NOMS External Department Unsolicited George Scherer NP [address] [facility] [place] [address] Social [...] AM EDT Routine [facility] 102 [facility] [place] [address] Cain Donaldson DO [address] [place] [address] 06/06/2025 8:40 AM EDT Routine [facility]OM[facility] BCP OB [address] [place], [place] [address] [address] Christy Schwartz PA [address] [place] [address] 06/13/2025 8:30 AM EDT Routine [facility] BCP OB [address] [facility] [place] [address] Christy Schwartz PA [address] [facility] [place] [address] documented as of this encounter Goals Goal Patient Goal Type Associated Problems Recent Progress Patient-Stated? Author Reminders Care Plan OB Reminders No Open Scheduling, Background documented as of this encounter Procedures Procedure Name Priority Date/Time Associated Diagnosis Comments US OB BPP W NON-STRESS 05/24/2025 9:55 PM EDT documented in this encounter Results * US OB BPP W NON-STRESS (05/24/2025 9:55 PM EDT) Anatomical Region Laterality Modality Other 05/24/2025 9:55 PM EDT Narrative 05/24/2025 9:57 PM EDT [address] [address] Ultrasound Report Signed Patient: KEVIN WHITE MR#: [id number] : 1995 Acct:[id number] Age/Sex: 29 / F ADM Date: 05/24/25 Loc: US Attending Dr: George Scherer Ordering Physician: George Scherer Date of Service: 05/24/25 Procedure(s): US OB BPP w non-stress Accession Number(s): [id number] cc: George Scherer; Cain Donaldson D.O. The [address] [address] Patient Name: KEVIN WHITE MRN: [id number] date: 1995 Sex: F Assigned Patient Location: [facility] Current Patient Location: Accession/Order Number: [id number] Exam Date: 05/24/2025 21:54 Report Date: 05/24/2025 21:55 At the request of: GEORGE SCHERER Procedure: [...] Steen M.D. 05/24/2025 9:55 PM Dictation Location: clipsync Electronically authenticated by: [id number] Y Date: 05/24/2025 21:55 Dictated By: Zion Steen D.O. Signed By: 05/24/252156 DD/ 54 TD/TT: Carpet Repairer: Procedure Note Radiology, Radiologist, MD - 05/24/2025 [place] [address] Ultrasound Report Signed Patient: KEVIN WHITE TMR#: [id number] : 1995Acct:[id number] Age/Sex: M Date: 05/24/25 Loc: US Attending Dr: George Scherer Ordering Physician: George Scherer Date of Service: 05/24/25 Procedure(s): US OB BPP w non-stress Accession Number(s): [id number] cc: George Scherer; Cain Donaldson D.O. The [place] [address] Patient Name: KEVIN WHITE MRN: [id number] date: 1995 Sex: F Assigned Patient Location: [facility] Current Patient Location: Accession/Order Number: [id number] Exam Date: 05/24/2025 21:54 Report Date: 05/24/2025 21:55 At the request of: GEORGE SCHERER Procedure: [...] Steen M.D. 05/24/2025 9:55 PM Dictation Location: clipsync Electronically authenticated by: [id number] Y Date: 1:55 Dictated By: Zion Steen D.O. Signed By:05/24/252156 DD/ 54 TD/TT: Carpet Repairer: us George Scherer NP [facility] Final Resul t documented in this encounter Visit Diagnoses Not on filedocumented in this encounter Additional Health Concerns Active Problems Noted Date Diagnosed Date OB Reminders 11/26/2024 documented as of this encounter
--- OUTSIDE RECORDS SUMMARY | 2025-05-26 15:34 | XMS_ITS | Encounter Summary ---
Author Organization [facility] Address [address] [place] [address] Care Team Providers Care Medication Specialist Name Role Phone Unavailable Primary Care Provider Unavailabl e Encounter Details Date Type Department Care Team (Late Contact Info) Description 01/27/2025 Orders Only [facility] BCP OB [address] [place] [address] Damaris Lopez LPN 102 [facility] [place] [id number] Social History Tobacco Use Types Packs/Day Years [...] OB [address] [place] [address] Cain Donaldson DO 102 [facility] [address] [place], [place] [id number] 06/06/2025 8:40 AM EDT Routine [facility] BCP OB [address] [place] [address] Christy Schwartz PA [address] [facility] [place] [address] 06/13/2025 8:30 AM EDT Routine [facility] BCP OB [address] [place] [phone] Christy Schwartz PA [address] [facility] [place] [address] documented as of this encounter Goals Goal [...] Cervical swab / Unknown [facility] Nurse [facility] Ob LAB CYTOLOGY ORDERABLES Final Result EXTERNAL LAB documented in this encounter Visit Diagnoses Not on filedocumented in this encounter Additional Health Concerns Active Problems Noted Date Diagnosed Date OB Reminders 11/26/2024 documented as of this encounter
--- OUTSIDE RECORDS SUMMARY | 2025-05-26 15:34 | XMS_ITS | Encounter Summary ---
Author Organization [facility] Address [address] [place] [address] Care Team Providers Care Automobile Repossessor Name Role Phone Unavailable Primary Care Provider Unavailabl e Encounter Details Date Type Department Care Team (Late Contact Info) Description 11/26/2024 Abstract [facility] BCP OB 102 [facility] [place] [address] Cain Donaldson DO [address] [place] [address] Karin Prieto, [facility]11 Social History Tobacco Use Types Packs/Day [...] Routine [facility]OMS BCP OB [address] [place] [address] Cain Donaldson DO [facility] [place], [place] 1327811 06/06/2025 8:40 AM EDT Routine [facility] BCP OB [address] [place] [address] Christy Schwartz PA [address] [place] [address] [place] [address] 06/13/2025 8:30 AM EDT Routine [facility] BCP OB [address] [place] [address] [place] [address] Christy Schwartz PA [address] [facility] [place] [address] documented as of this encounter Goals Goal Patient Goal Type Associated Problems Recent Progress Patient-Stated? Author Reminders Care Plan OB Reminders No Open Scheduling, Background documented as of this encounter Visit Diagnoses Not on filedocumented in this encounter Additional Health Concerns Active Problems Noted Date Diagnosed Date OB Reminders 11/26/2024 documented as of this encounter
--- OUTSIDE RECORDS SUMMARY | 2025-05-26 15:34 | XMS_ITS | Encounter Summary ---
Author Organization [facility] Address [address] [place] [address] Care Team Providers Care Boxer Operator Name Role Phone Unavailable Primary Care Provider Unavailabl e Encounter Details Date Type Department Care Team (Late st Contact Info) Description 11/12/2024 Abstract [facility] BCP OB [address] [facility] [place] [address] Cain Donaldson DO [address] [place] [address] Dr [place] Prieto, [facility]11 Social History Tobacco Use Types Packs/Day [...] OB [address] [facility] [place] [address] Cain Donaldson, [address] [place] [address] Dr [place], [place] 599[address] 06/06/2025 8:40 AM EDT Routine [facility] BCP OB [address] [place] [address] [place] [address] Christy Schwartz PA [address] [place] [address] [place], [place] 154[address] 06/13/2025 8:30 AM EDT Routine [facility] BCP OB [address] [facility] [place] [address] Christy Schwartz PA [address] [facility] [address] [place], [place] [address] documented as of this encounter Visit Diagnoses Not on filedocumented in this encounter
--- OUTSIDE RECORDS SUMMARY | 2025-05-26 15:34 | XMS_ITS | Encounter Summary ---
Author Organization [facility] Address [address] [place] [address] Care Team Providers Care Six Horse Hitch Driver Name Role Phone Unavailable Primary Care Provider Unavailabl e Encounter Details Date Type Department Care Team (Latest Contact Info) Description 05/26/2025 Travel Social History Tobacco Use Types Packs/Day [...] 8:30 AM EDT Routine [facility] BCP OB [address] [place] [address] [place] [address] Cain Donaldson, [address] [place] [address] [place] [address] 06/06/2025 8:40 AM EDT Routine [facility] BCP OB [address] [place] [address] [place] [address] Christy Schwartz PA [address] [place] [address] [place] [address] 06/13/2025 8:30 AM EDT Routine [facility] BCP OB [address] [place] [address] [place] [address] Christy Schwartz PA [address] [place] [address] [place] [address] documented as of this encounter Goals Goal Patient Goal Type Associated Problems Recent Progress Patient-Stated? Author Reminders Care Plan OB Reminders No Open Scheduling, Background documented as of this encounter Visit Diagnoses Not on filedocumented in this encounter Additional Health Concerns Active Problems Noted Date Diagnosed Date OB Reminders 11/26/2024 documented as of this encounter
--- OUTSIDE RECORDS SUMMARY | 2025-05-26 15:34 | XMS_ITS | Encounter Summary ---
Author Organization [facility] Address [address] [place] [address] Care Team Providers Care Cylinder Inspector Name Role Phone Unavailable Primary Care Provider Unavailabl e Encounter Details Date Type Department Care Team (Late st Contact Info) Description 04/14/2025 Abstract [facility] OB [address] [facility] [place] [address] Yue Dumont MA Social History Tobacco [...] AM EDT Routine [facility] BCP OB [address] [place] [address] Cain Donaldson DO [address] [place] [address] [place] [address] 06/06/2025 8:40 AM EDT Routine [facility] BCP OB [address] [place] [address] [place] [address] Christy Schwartz PA [address] [place] [address] [place] [address] 06/13/2025 8:30 AM EDT Routine [facility] BCP OB [address] [facility] [place] [phone] Christy Schwartz PA 102 [facility] [place] [address] documented as of this encounter Goals Goal Patient Goal Type Associated Problems Recent Progress Patient-Stated? Author Reminders Care Plan OB Reminders No Open Scheduling, Background documented as of this encounter Visit Diagnoses Not on filedocumented in this encounter Additional Health Concerns Active Problems Noted Date Diagnosed Date OB Reminders 11/26/2024 documented as of this encounter
--- OUTSIDE RECORDS SUMMARY | 2025-05-26 15:34 | XMS_ITS | Encounter Summary ---
Author Organization [facility] Address [address] [place] [address] Care Team Providers Care Vacuum Tank Tender Name Role Phone Unavailable Primary Care Provider Unavailabl e Encounter Details Date Type Department Care Team (Late st Contact Info) Description 03/18/2025 Abstract [facility] OB [address] [place] [place] [address] Yue Dumont MA Social History Tobacco [...] AM EDT Routine [facility] BCP OB [address] [place] [address] Cain Donaldson DO [address] [place] [address] [place] [address] 06/06/2025 8:40 AM EDT Routine [facility] BCP OB [address] [place], [place] [address] [address] Christy Schwartz PA [address] [place] [address] [place] [address] 06/13/2025 8:30 AM EDT Routine [facility] BCP OB [address] [place] [phone] Christy Schwartz PA 102 [facility] [place] [address] documented as of this encounter Goals Goal Patient Goal Type Associated Problems Recent Progress Patient-Stated? Author Reminders Care Plan OB Reminders No Open Scheduling, Background documented as of this encounter Visit Diagnoses Not on filedocumented in this encounter Additional Health Concerns Active Problems Noted Date Diagnosed Date OB Reminders 11/26/2024 documented as of this encounter
--- OUTSIDE RECORDS SUMMARY | 2025-05-26 15:34 | XMS_ITS | Encounter Summary ---
Author Organization [facility] Address [address] [place] [address] Care Team Providers Care Bench Mover Name Role Phone Unavailable Primary Care Provider Unavailabl e Encounter Details Date Type Department Care Team (Late Contact Info) Description 05/17/2025 Clinisync Result Encounter NOMS External Department Unsolicited George Scherer, LEEANN [address] [facility] [place] [address] Social History [...] AM EDT Routine [facility] BCP OB 102 [facility] [place] [place] [address] Cain Donaldson DO [address] [place] [address] 06/06/2025 8:40 AM EDT Routine [facility] BCP OB [address] [place], [place] [address] [address] Christy Schwartz PA [address] [place] [address] 06/13/2025 8:30 AM EDT Routine [facility] BCP OB [address] [facility] [place] [address] Christy Schwartz PA [address] [facility] [place] [address] documented as of this encounter Goals Goal [...] AM EDT Narrative 05/17/2025 8:09 AM EDT [address] [address] Ultrasound Report Signed Patient: KEVIN WHITE MR#: [id number] : 1995 Acct:[id number] Age/Sex: 29 / F ADM Date: 05/16/25 Loc: US Attending Dr: George Scherer Ordering Physician: George Scherer Date of Service: 05/16/25 Procedure(s): US OB BPP w non-stress Accession Number(s): [id number] cc: George Scherer; Cain Donaldson D.O. The [address] [address] Patient Name: KEVIN WHITE MRN: [id number] date: 1995 Sex: F Assigned Patient Location: US Current Patient Location: Accession/Order Number: [id number] Exam Date: 05/17/2025 08:06 Report Date: 05/17/2025 [...] Munson M.D. 05/17/2025 8:07 AM Dictation Location: [place] [address] Electronically authenticated by: [id number] Y Date: 05/17/2025 08:07 Dictated By: Justina Munson M.D. Signed By: 05/17/25808 DD/ 6 TD/TT: Roundhouse Supervisor: Procedure Note Radiology, Radiologist, - 05/17/2025 [place] [address] Ultrasound Report Signed Patient: KEVIN WHITEMR#: [id number] : 1995Acct:[id number] Age/Sex: 29 FADM Date: 05/16/25 Loc: US Attending Dr: George Scherre Ordering Physician: George Scherer Date of Service: 05/16/25 Procedure(s): US OB BPP w non-stress Accession Number(s): [id number] cc: George Scherer; Cain Donaldson D.O. The [place] [id number] Patient Name: KEVIN WHITE MRN: [id number] date: 1995 Sex: F Assigned Patient Location: Current Patient Location: Accession/Order Number: [id number] Exam Date: 05/17/2025 08:06 Report Date: 05/17/2025 [...] Munson M.D. 05/17/2025 8:07 AM Dictation Location: [place] [address] Electronically authenticated by: [id number] Y Date: 508:07 Dictated By: Justina Munson M.D. Signed By:05/17/25 0809 DD/ 0807 TD/TT: Roundhouse Supervisor: George Scherer [facility] DIRECT[facility] Final Resul t documented in this encounter Visit Diagnoses Not on filedocumented in this encounter Additional Health Concerns Active Problems Noted Date Diagnosed Date OB Reminders 11/26/2024 documented as of this encounter
--- OUTSIDE RECORDS SUMMARY | 2025-05-26 15:34 | XMS_ITS | Encounter Summary ---
Author Organization [facility] tem Address [id number] [address] 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, antepartum; Severe obesity due to excess calories affecting , antepartum ([facility]); Bipolar disorder, in full remission, most [...] due to excess calories affecting , antepartum ([facility]) Bipolar disorder, in full remission, most recent episode depressed documented in this encounter Results * Unlisted Lab Test (02/08/2025) 02/08/2025 us Gricelda Chadwick MD LAB BLOOD ORDERABLES Final Resul t [employer] documented in this encounter Visit Diagnoses Diagnosis Insulin controlled gestational diabetes mellitus (GDM) in second trimester Prediabetes in mother during 20 weeks gestation of Choroid plexus cyst of fetus affecting care of mother, antepartum, single or unspecified fetus Heterozygous factor V Leiden affecting in second trimester, antepartum Severe obesity due to excess calories affecting , antepartum ([facility]) Bipolar disorder, in full remission, most recent episode depressed documented in this encounter Additional Health Concerns Assessment Noted Time PHQ-9 Depression Total Score: 2 07/03/20 16 9:00 AM EDT documented as of this encounter
--- OUTSIDE RECORDS SUMMARY | 2025-05-26 15:34 | XMS_ITS | Encounter Summary ---
Author Organization [facility] tem Address [id number] [address] [place] [address] Care Team Providers Care Advertising Sales Consultant Name Role Phone Unavailable Primary Care Provider Unavailabl e Encounter Details Date Type Department Care Team (Late st Contact Info) Description 12/30/2024 Orders Only Maternal- Medicine at [facility] [address] [place] [address] Ref Prov, [place] [address] Social History Tobacco Use Types Packs/Day Years [...]
--- OUTSIDE RECORDS SUMMARY | 2025-05-26 15:34 | XMS_ITS | Encounter Summary ---
Author Organization [facility] tem Address [id number] [address] [place] [address] Care Team Providers Care Front End Software Engineer Name Role Phone Unavailable Primary Care Provider Unavailabl e Encounter Details Date Type Department Care Team (Late st Contact Info) Description 01/27/2025 Orders Only Maternal- Medicine at [facility] [address] [place] [phone] Sintia Martinez, ACCOUNT STRATEGIST-APRON TRIMMER [address] [place] [address] Social History Tobacco Use Types Packs/Day Years [...]
--- OUTSIDE RECORDS SUMMARY | 2025-05-26 15:34 | XMS_ITS | Encounter Summary ---
Author Organization [facility] Address [address] [place] [address] Care Team Providers Care Seed Collector Name Role Phone Unavailable Primary Care Provider Unavailabl e Encounter Details Date Type Department Care Team (Late st Contact Info) Description 05/16/2025 Bamboo flowsheet [facility] BCP OB [address] [place] [address] Cain Donaldson [employer] [place] Christo [place], [facility] Social History Tobacco Use Types Packs/Day [...] Routine [facility] BCP OB [address] [place] [address] Cain Donaldson DO [facility] In[place], [place] [id number] 06/06/2025 8:40 AM EDT Routine [facility] BCP OB [address] [place] [address] Christy Schwartz PA [address] [place] [address] [place] [address] 06/13/2025 8:30 AM EDT Routine [facility] BCP OB [address] [place] [address] [place] [address] Christy Schwartz PA [address] [facility] [address] [place], [place] [address] documented as of this encounter Goals Goal Patient Goal Type Associated Problems Recent Progress Patient-Stated? Author Reminders Care Plan OB Reminders No Open Scheduling, Background documented as of this encounter Visit Diagnoses Not on filedocumented in this encounter Additional Health Concerns Active Problems Noted Date Diagnosed Date OB Reminders 11/26/2024 documented as of this encounter
--- OUTSIDE RECORDS SUMMARY | 2025-05-26 15:34 | XMS_ITS | Encounter Summary ---
Author Organization [facility] tem Address [id number] [address] [place] [address] Care Team Providers Care Rail Detector Car Operator Name Role Phone Unavailable Primary Care [...]
--- OUTSIDE RECORDS SUMMARY | 2025-05-26 15:34 | XMS_ITS | Encounter Summary ---
Author Organization [facility] tem Address [id number] [address] [place] [address] Care Team Providers Care Jewelry Enameler Name Role Phone Unavailable Primary Care Provider Unavailabl e Encounter Details Date Type Department Care Team (Late st Contact Info) Description 05/17/2025 Telephone Maternal- Medicine at [facility] [address] [place] [address] Sonya Lomax, RN Social History Tobacco Use [...]
--- OUTSIDE RECORDS SUMMARY | 2025-05-26 15:34 | XMS_ITS | Clinical Summary ---
Author Organization Textic tem Address [id number] [address] [place] [address] Care Team Providers Care Brake Repairer Railroad Name Role Phone Unavailable Primary Care Provider [...] 1:30 PM EDT Telemedicine Maternal- Medicine at [facility] [address] [place] [address] Devika Pulido, PA-Pat Insulin controlled gestational diabetes mellitus (GDM) in third trimester (Primary Dx) 05/23/2025 Travel 05/17/2025 Telephone Maternal- Medicine at [facility] [address] [place] [address] Sonya Lomax, NARESH 05/11/2025 Telephone Maternal- Medicine at [facility] [address] [place] [address] Belen Fowler, ANNETTE 05/03/2025 Telephone Maternal- Medicine at [facility] [address] [place] [address] Shoshana Berger, ANNETTE 04/25/2025 11:30 AM EDT Telemedicine Maternal- Medicine at [facility] [address] [place] [address] Devika Pulido PA-Pat Insulin controlled gestational diabetes mellitus (GDM) in third trimester (Primary Dx) 04/25/2025 Travel 04/25/2025 Telephone Maternal- Medicine at [facility] [address] [place] [address] Giselle Cheng CMA 04/20/2025 Telephone Maternal- Medicine at [facility] [address] [place] [address] Aissatou Stoner RN 04/14/2025 Travel 04/12/2025 Telephone Maternal- Medicine at [facility] [address] [place] [address] Sonya Lomax, NARESH 04/11/2025 Orders Only Maternal- Medicine at [facility] [address] [place] [address] Devika Pulido, PA-C 04/11/2025 Remote Patient Monitoring Maternal- Medicine at [place] [address] [place] [address] Devika Pulido, PA-C Insulin controlled gestational diabetes mellitus (GDM) in second trimester; Prediabetes in mother during 03/30/2025 1:30 PM EDT Telemedicine Maternal- Medicine at [facility] [address] [place] [address] Sintia Martinez, CLINICAL EDUCATION MANAGER-BASKET WEAVER Insulin controlled gestational diabetes mellitus (GDM) in second trimester (Primary Dx); Recurrent major depressive disorder, in partial remission; Prediabetes in mother during 03/30/2025 Travel 03/22/2025 Telephone Maternal- Medicine at [facility] [address] [place] [address] Sonya Lomax, NARESH 03/16/2025 7:48 AM EDT - 03/16/2025 11:59 PM EDT Hospital Encounter [facility] [address] [place] [address] Insulin controlled gestational diabetes mellitus (GDM) in second trimester; Choroid plexus cyst of fetus affecting care of mother, antepartum, single or unspecified fetus; Heterozygous factor V Leiden affecting in second trimester, antepartum; Severe obesity due to excess calories affecting , antepartum ([facility]) Discharge Disposition: Home 03/16/2025 Telephone Maternal- Medicine at [facility] [address] [place] [address] Sonya Lomax, NARESH 03/15/2025 Travel 03/11/2025 Telephone Maternal- Medicine at [facility] [address] [place] [address] Naomy Thompson RN 03/07/2025 Telephone Maternal- Medicine at [facility] [address] [place] [address] Sonya Lomax, NARESH 03/07/2025 Orders Only Maternal- Medicine at [facility] [address] [place] [address] Cole Wade MD Insulin controlled gestational diabetes mellitus (GDM) in second trimester; Prediabetes in mother during 03/01/2025 Telephone Maternal- Medicine at [facility] [address] [place] [address] Valerie Le RN 02/28/2025 Orders Only Maternal- Medicine at [facility] [address] [place] [address] Devika Pulido, PAMoniqueC Insulin controlled gestational diabetes mellitus (GDM) in second trimester; Prediabetes in mother during 02/24/2025 1:00 PM EDT Telemedicine Maternal- Medicine at [facility] [address] [place] [address] Sintia Martinez, CLINICAL EDUCATION MANAGER-BASKET WEAVER Insulin controlled gestational diabetes mellitus (GDM) in second trimester (Primary Dx); Recurrent major depressive disorder, in partial remission; Bipolar 1 disorder ([facility]); Prediabetes in mother during 02/24/2025 Travel from Last 3 Months Family History [...] due to excess calories affecting , antepartum ([facility]) PAP SMEAR Routine 11/24/2020 6:26 AM EST Encounter for gynecological examination without abnormal finding from Last 3 Months or Most Recently Relevant to Health Maintenance Results * US MFM OB FOLLOW-UP, 1 FETUS (04/14/2025 9:05 AM EDT) Only the most recent of2 resultswithin the time period is included. Anatomical Region Laterality Modality OB-ASSEMBLER INSULATOR Ultrasound 04/14/2025 8:07 AM EDT Narrative 04/14/2025 1:39 PM EDT NAME: CINDY GRECO : 1995 SEX: F Accession Number: [id number] ORDERING PHYSICIAN: JAIDA CHADWICK REFERRING PHYSICIAN: ALFREDO PROCTOR Coding ----- --------- Procedures 78820: Follow-up Ultrasound, per fetus Indication ----- --------- Screening for follow-up survey, Screening for congenital cardiac abnormality, resulting from assisted reproductive technology, Gestational diabetes, Obesity in , Depression, Supervision of high risk (LT Choroid plexus cyst)-resolved History ----- --------- OB History 2. Para 0 [id number] Maternal Assessment ----- --------- Physical Exam Height [...] EFW (oz) 6 oz EFW by: Hadlock (JYQ-[id number]-SR-FL) Extended Tibia 47.6 mm 28w 6d 23% Padmini Loss Prevention Leader 3.1 mm CM 10.2 mm 99% Nicolaides [...] Thorax RVOT view. LVOT view. 3-vessel view. 7-uwjpzb-dlchyrv view. Right lung. Left lung. Abdomen Right [...] view documented previously 3-vessel view documented previously 2-xgviey-ngkfrhs view documented previously Aortic arch view documented [...] 6.5 cm. Recommendations ----- --------- Please see [facility] recommendations from prior clinical and/or ultrasound report documentation. The patient is scheduled in four weeks to complete anatomic survey and echocardiogram. Continue testing as previously recommended. Subsequent follow up or other follow up as clinically determined by primary OB provider unless otherwise specified by [facility]. Results forwarded to ordering provider so they can follow up with the patient as necessary. Procedure Note Jaida Chadwick MD - 04/14/2025 NAME: CINDY GRECO : 1995 SEX: F Accession Number: [id number] ORDERING PHYSICIAN: JAIDA CHADWICK REFERRING PHYSICIAN: ALFREDO PROCTOR Coding ----- --------- Procedures 08668: Follow-up Ultrasound, per fetus Indication ----- --------- Screening for follow-up survey, Screening for congenital cardiacabnormality, resulting from assisted reproductive technology, Gestational diabetes, Obesity in , Depression,Supervision of high risk (LT Choroid plexus cyst)-resolved History ----- --------- OB History 2. Para 0 [id number] Maternal Assessment ----- --------- Physical Exam Height [...] EFW (oz) 6 oz EFW by: Hadlock (KWO-TF-BY-FL) Extended Tibia 47.6 mm 28w 6d 23% Padmini Loss Prevention Leader 3.1 mm CM 10.2 mm 99% Nicolaides [...] Thorax RVOT view. LVOT view. 3-vessel view. 6-hgxfcv-twxvnhgtgut. Right lung. Left lung. Abdomen Right renal [...] view documented previously 3-vessel view documented previously 1-evhrgn-iirwpmc view documented previously Aortic arch view documented [...] 6.5 cm. Recommendations ----- --------- Please see [facility] recommendations from prior clinical and/or ultrasoundreport documentation. The patient is scheduled in four weeks to complete anatomic survey andfetal echocardiogram. Continue testing as previously recommended. Subsequent follow up or other follow up as clinically determined byprimary OB provider unless otherwise specified by M. Results forwarded to ordering provider so they can follow up with thepatient as necessary. us Jaida Chadwick MD [facility] ORDERABLES Final Result * Pap Smear (11/24/2020 6:26 AM EST) 11/24/2020 6:26 AM EST 11/24/2020 6:35 AM EST Narrative COPATH - 11/28/2020 11:50 AM EST [facility] [address] [place] [address] Gynecologic Cytology Consultation Patient Name: KEVIN MOORE : 1995 (Age: 25) Gender: F Taken: 11/24/2020 Reported: 11/28/2020 Physician(s): Al Orr M.D. ( ) Copy To: [facility]. Rec. #: [id number] Acct: # [id number] Final Cytologic Interpretation ThinPrep Pap Test (Cervical): Satisfactory for evaluation. A transformation zone component was not noted. NEGATIVE FOR INTRAEPITHELIAL LESION OR MALIGNANCY. [facility]/11/28/2020 [place] [address], License number: [id number]. Electronically Signed Out By PAUL Lopez(ASCP) Date of Last Menstrual Period: 09/12/2020 Other Clinical Conditions: Z01.419 It Software Engineer exam wo/abn findings Source of Specimen ThinPrep Pap Test (Cervical) Thin Prep Pap (ASSEMBLER INSULATOR) Fee Code(s): G0145 The Pap test is a screening test with an inherent, but low, probability of error. The Pap test is primarily effective for the diagnosis and prevention of squamous cell carcinoma. Regular screening is critical for prevention. ThinPrep liquid-based slides, which meet the Diesel Service Technician criteria for automated screening, have been screened by the ThinPrep Imaging System (as of 07/20/07) along with an additional manual rescreening by a communications administrator and, if indicated, by a pathologist. Al Orr MD PATHOLOGY/CYTOLOGY ORDERABLE S Final Result COPATH from Last 3 Months or Most Recently Relevant to Health Maintenance Insurance ANTHEM ANTHEM
== END 2025-05-26 15:30 | disposition home or self-care (01) ==
LOC: LAB 15:29
PROVIDERS: PCP Obstetrics & Gynecology; Visit Provider Physician Assistant
DX: Z34.93 Encounter for supervision of normal pregnancy, unspecified, third trimester (principal); Z3A.35 35 weeks gestation of pregnancy
CPT/HCPCS: 87081

== ENCOUNTER 2025-05-27 17:00 | Outpatient (OUT) | payer BC, SELFPAY ==
--- OUTSIDE RECORDS SUMMARY | 2025-01-21 11:10 | XMS_ITS | Continuity of Care Document ---
Author Organization [facility] Address [address] [place] [address] Phone Care Team Providers Care Golf Club Maker Name Role Phone Miguel Rios Unavailable Unavailable [...] Diagnoses Date Provider Providers Copied on Encounter [facility], [address] [place] [address], [id number] , [place] tel: [phone] [facility] No Information 5 Visci DO Rivera. [address] [place] [address], [id number] , [place]. tel: [phone] [facility], [address] [place] [address], [id number] , [place] tel: [phone] [facility] Encounter for screening for respiratory tuberculosis 5 Visci DO Miguel. [address] [place] [address], [id number] , [place]. tel:[phone] [facility], [address] [place] [address], [id number] , [place] tel: [phone] [facility] No Information 4 Visci DO Miguel. [address] [place] [address], [id number] , [place]. tel: [phone] [facility], [address] [place] [address], [id number] , [place] tel:+ [phone] [facility] Lab Draw (chief complaint) Other specified disorders of pancreatic internal secretionSubclinical iodine-deficiency hypothyroidismEncount er for screening for other viral diseasesEncounter for screening for other infectious disease 4 Cynthia White. [address] [place], [place], [id number] , [place]. tel: [phone] [facility], [address], [place], [id number] , [place] tel: [phone] [facility] lab draw (chief complaint) Encounter for screening for other viral diseases 4 Cynthia White. [address] [place], [place], [id number] , [place]. tel: [phone] [facility], [address], [place], 285355460 , [place] tel: [phone] [facility] No Information 4 Cynthia White. [address] [place], [place], [id number] , [place]. tel: [phone] [facility], [address], [place], [id number] , [place] tel: [phone] [facility] Encounter for screening for respiratory tuberculosis 4 Cynthia White. [address], [place], [id number] , [place]. tel: [phone] [facility], [address], [place], [id number] , [place] tel: [phone] [facility] Lab draw (chief complaint) Blood test prior to procedure 4 Cynthia White. [address] [place], [place], [id number] , [place]. tel: [phone] Referring Provider: Tenisha Leon [place]. [facility], [address], [place], [id number] , [place] tel: [phone] [facility] No Information 3 Cynthia White. [address] [place], [place], [id number] , [place]. tel: [phone] [facility], [address], [place], [id number] , [place] tel: [phone] [facility] COVID Test (chief complaint) Encounter for screening for COVID-19 3 Cynthia White. [address] [place], [place], [id number] , [place]. tel: [phone] [facility], [address], [place], 746261281 , [place] tel: [phone] [facility] Lab Draw (chief complaint) Encounter for antibody response examination 3 Cynthia White. [address] [place], [place], [id number] , [place]. tel: [phone] [facility], [address] [place] [address], [id number] , [place] tel: [phone] [facility] lab (chief complaint) Other specified disorders of pancreatic internal secretion 3 Cynthia White. [address] [place], [place], [id number] , [place]. tel: [phone] [facility], [address] [place] [address], [id number] , [place] tel: [phone] [facility] Lab draw (chief complaint) Blood test prior to procedure 3 Cynthia White. [address] [place], [place], [id number] , [place]. tel: [phone] [facility], [address] [place] [address], [id number] , [place] tel: [phone] [facility] lab draw (chief complaint) Endocrine disorder 3 Cynthia White. [address] [place], [place], [id number] , [place]. tel: [phone] [facility], [address] [place] [address], [id number] , [place] tel: [phone] [facility] Encounter for screening for COVID-19 3 Visci DO Miguel. [address] [place], [place], [id number] , [place]. tel: [phone] [facility], [address], [place], [id number] , [place] tel: [phone] [facility] Lab draw (chief complaint) Blood test prior to procedureEncounter for screening for COVID-19 3 Visci DO Miguel. [address], [place], [id number] , [place]. tel: [phone] [facility], [address], [place], [id number] , [place] tel: [phone] [facility] No Information 3 Visci DO Miguel. [address], [place], [id number] , [place]. tel: [phone] [facility], [address], [place], [id number] , [place] tel: [phone] [facility] No Information 3 Visci DO Miguel. [address], [place], [id number] , [place]. tel: [phone] [facility], [address], [place], [id number] , [place] tel: [phone] [facility] No Information 2 Visci DO Miguel. [address], [place], [id number] , [place]. tel: [phone] [facility], [address], [place], [id number] , [place] tel: [phone] [facility] No Information 2 Visci DO Miguel. [address], [place], [id number] , [place]. tel: [phone] [facility], [address], [place], [id number] , [place] tel: [phone] [facility] No Information 2 Visci DO Miguel. [address], [place], [id number] , [place]. tel: [phone] [facility], [address], [place], [id number] , [place] tel: [phone] [facility] Encounter for screening for respiratory tuberculosis 2 Visci DO Miguel. [address], [place], [id number] , [place]. tel: [phone] [facility], [address], [place], [id number] , [place] tel: [phone] [facility] Encounter for screening for respiratory tuberculosis 2 Visci DO Miguel. [address], [place], [id number] , [place]. tel: [phone] [facility], [address], [place], [id number] , [place] tel: [phone] [facility] Encounter for screening for respiratory tuberculosis 2 Visci DO Miguel. [address], [place], [id number] , [place]. tel: [phone] [facility], [address], [place], 673995976 , [place] tel: [phone] [facility] No Information 1 Visci DO Miguel. [address], [place], [id number] , [place]. tel: [phone] [facility], [address], [place], [id number] , [place] tel: [phone] [facility] No Information 1 Visci DO Miguel. [address], [place], [id number] , [place]. tel: [phone] [facility], [address], [place], [id number] , [place] tel: [phone] [facility] No Information 1 Visci DO Miguel. [address], [place], [id number] , [place]. tel:[phone] Family History Family Member Type Diagnosis Age [...] Insurance type Covered democrat ID Authoriza tion(s) [place] [id number] [place] [id number] [place] [id number] [place] [employer] [id number] [place] [employer] [id number] [place] [employer] [id number] [place] [employer] [id number] Social History Type Description Quantity Date Captured [...] Goal Depression screening. Due on due Goal Depression screening. Due [...] du e Goal Influenza vaccine. Due on Nc due Goal Unhealthy drug use screening . [...] on due Goal Influenza vaccine. Due on Nc due Goal PRAPARE ASSESSMENT. Due on due [...] PRAPARE ASSESSMENT. Due on A due Goal RLP. Due on due Goal [...] Vaccine. Due on 2031 due Goal Tdap Vaccine. Due on 2031 [...] on due Goal Influenza vaccine. Due on Nc due Goal PRAPARE ASSESSMENT. Due on M [...]
--- OUTSIDE RECORDS SUMMARY | 2025-05-16 08:30 | XMS_ITS | Encounter Summary ---
Author Organization [facility] Address [address] [place] [address] Care Team Providers Care Public Health Social Worker Name Role Phone Unavailable Primary Care Provider Unavailabl e Reason for Visit * Reason Comments Routine Visit Encounter Details Date Type Department Care Team (Latest Contact Info) Description 05/16/2025 8:30 AM EDT Routine [facility] [address] [facility] [place] [address] Cain Donaldson DO [address] [facility] [place] [address] 34 weeks gestation of ([facility]); Third trimester ([facility]); Conceived by in vitro fertilization; Factor 5 Leiden mutation, heterozygous ([facility]); Insulin controlled gestational diabetes mellitus (GDM) during , antepartum ([facility]); Non-recurrent acute serous otitis media of [...] check FSBS. Blood Glucose Monitoring Suppl ([employer]-Feedjit Glucometer) w/Device kit 1 kit, Does not [...] Medical History: Diagnosis Date SAB (spontaneous ) ([facility]) 10/2021 HISTORY PAST MEDICAL HISTORY SOCIAL HISTORY Past Medical History: Diagnosis Date SAB (spontaneous ) ([facility]) 10/2021 Social History Tobacco Use Smoking status: [...] nursing note reviewed. Exam conducted with a transport analyst present. Vitals: Estimated body mass index is 43.71 kg/m?? as calculated from the following: Height as of 04/18/25: 5' 2 . Weight as of this encounter: 239 lb. BP: 120/70 No LMP recorded. Patient is . ASSESSMENT & PLAN ICD-10-CM 1. 34 weeks gestation of ([facility]) Z3A.34 POCT urinalysis dipstick manually resulted Urine culture 2. Third trimester ([facility]) Z34.93 POCT urinalysis dipstick manually resulted 3. Conceived by in vitro fertilization Z78.9 Urine culture 4. Factor 5 Leiden mutation, heterozygous ([facility]) D68.51 5. Insulin controlled gestational diabetes mellitus (GDM) during , antepartum ([facility]) O24.414 Patient presents today for a routine [...] Description 05/30/2025 8:30 AM EDT Routine [facility] [address] [place] [address] [place] [address] Cain Donaldson DO [address] [facility] [address] [place], [place] [id number] 06/06/2025 8:40 AM EDT Routine [facility] [address] [place] [address] [place] [address] Christy Schwartz PA [address] [facility] [address] [place], [place] [id number] 06/13/2025 8:30 AM EDT Routine [facility] [address] [place] [address] [place] [address] Christy Schwartz PA [address] [facility] [address] [place], [facility] Scheduled Orders Name Type Priority Associated Diagnoses Orde r Schedule Urine culture Microbiology Routine 34 weeks gestation of ([facility]) Conceived by in vitro fertilization Ordered: 05/16/2025 documented as of this encounter Goals Goal Patient Goal Type Associated Problems Recent Progress Patient-Stated? Author Reminders Care Plan OB Reminders No Open Scheduling, Background documented as of this encounter Procedures Procedure Name Priority Date/Time Associated Diagnosis Comments POCT URINALYSIS DIPSTICK Routine 05/16/2025 8:43 AM EDT 34 weeks gestation of ([facility]) Third trimester ([facility]) documented in this encounter Results * (ABNORMAL) [...] Visit Diagnoses Diagnosis 34 weeks gestation of ([facility]) Third trimester ([facility]) state, incidental Conceived by in vitro fertilization Factor 5 Leiden mutation, heterozygous ([facility]) Insulin controlled gestational diabetes mellitus (GDM) during , antepartum ([facility]) Non-recurrent acute serous otitis media of left ear documented in this encounter Additional Health Concerns Active Problems Noted Date Diagnosed Date OB Reminders 11/26/2024 documented as of this encounter
--- OUTSIDE RECORDS SUMMARY | 2025-05-23 13:30 | XMS_ITS | Encounter Summary ---
Author Organization [facility] tem Address [id number] [address] [place] [address] Care Team Providers Care Post Tronic Machine Operator Name Role Phone Unavailable Primary Care Provider Unavailabl e Encounter Details Date Type Department Care Team (Late st Contact Info) Description 05/23/2025 1:30 PM EDT Telemedicine Maternal- Medicine at [facility] [address] [place] [phone] Devika Pulido, PAMoniqueC [address] [address] Insulin controlled gestational diabetes mellitus (GDM) in [...] is present at home, provider present at [facility] HISTORY OF PRESENT ILLNESS: Kevin Conley [...] route., Disp: , Rfl: lancets (LANCETS,ULTRA THIN) [facility] [place] [place], Use to check blood sugar 4 times [...] Delivery recommendations : - Recommend delivery at [id number]-[id number] - Discuss delivery if estimated weight is [...] by e-mail to: or by fax to: [phone] Devika Pulido PA-C Maternal- Medicine Office phone: [phone] Devika Pulido PA-C 05/23/25 1608 documented in [...]
--- OUTSIDE RECORDS SUMMARY | 2025-05-26 08:50 | XMS_ITS | Encounter Summary ---
Author Organization [facility] Address [address] [facility] [place] [address] Care Team Providers Care Corporate Sales Trainer Name Role Phone Unavailable Primary Care Provider Unavailabl e Reason for Visit * Reason Comments Routine Visit Encounter Details Date Type Department Care Team (Late st Contact Info) Description 05/26/2025 8:50 AM EDT Routine [facility] [address] [facility] [place] [address] Christy Schwartz PA [address] [facility] [address] [place] [id number] Third trimester ([facility]); 36 weeks gestation of ([facility]) Social History Tobacco Use Types Packs/Day [...] to check FSBS. Blood Glucose Monitoring Suppl ([employer] Glucometer) w/Device kit 1 kit, Does not [...] Medical History: Diagnosis Date SAB (spontaneous ) ([facility]) 10/2021 HISTORY PAST MEDICAL HISTORY SOCIAL HISTORY Past Medical History: Diagnosis Date SAB (spontaneous ) ([facility]) 10/2021 Social History Tobacco Use Smoking [...] ASSESSMENT & PLAN ICD-10-CM 1. Third trimester ([facility]) Z34.93 CULTURE, GROUP B STREP WITH SUSCEPTIBLITY CULTURE, GROUP B STREP WITH SUSCEPTIBLITY POCT urinalysis dipstick manually resulted 2. 36 weeks gestation of ([facility]) Z3A.36 Return OB: Patient presents today for [...] 05/30/2025 8:30 AM EDT Routine [facility] [address] [place] [address] Cain Donaldson DO [address] [place] [address] 06/06/2025 8:40 AM EDT Routine [facility] [address] [place] [address] Christy Schwartz PA [address] [facility] [place] [address] 06/13/2025 8:30 AM EDT Routine [facility] [address] [place] [address] Christy Schwartz PA [address] [place] [address] Scheduled Orders Name Type Priority Associated Diagnoses Orde r Schedule CULTURE, GROUP B STREP WITH SUSCEPTIBLITY Lab Routine Third trimester ([facility]) Expected: 05/26/2025, Expires: 05/26/2026 documented as of this encounter Goals Goal Patient Goal Type Associated Problems Recent Progress Patient-Stated? Author Reminders Care Plan OB Reminders No Open Scheduling, Background documented as of this encounter Procedures Procedure Name Priority Date/Time Associated Diagnosis Comments POCT URINALYSIS DIPSTICK Routine 05/26/2025 8:59 AM EDT Third trimester ([facility]) documented in this encounter Results * [...] this encounter Visit Diagnoses Diagnosis Third trimester ([facility]) state, incidental 36 weeks gestation of ([facility]) documented in this encounter Additional Health Concerns Active Problems Noted Date Diagnosed Date OB Reminders 11/26/2024 documented as of this encounter
--- OUTSIDE RECORDS SUMMARY | 2025-05-27 17:02 | XMS_ITS | Encounter Summary ---
Author Organization [facility] tem Address [id number] [address] [place] [address] Care Team Providers Care Sdet Name Role Phone Unavailable Primary Care Provider [...]
--- OUTSIDE RECORDS SUMMARY | 2025-05-27 17:02 | XMS_ITS | Encounter Summary ---
Author Organization [facility] tem Address [id number] [address] [place] [address] Care Team Providers Care Metal Products Viewer Name Role Phone Unavailable Primary Care Provider Unavailabl e Encounter Details Date Type Department Care Team (Late st Contact Info) Description 05/17/2025 Telephone Maternal- Medicine at [facility] [address] [place] [address] Sonya Lomax, RN Social History Tobacco Use [...]
--- OUTSIDE RECORDS SUMMARY | 2025-05-27 17:02 | XMS_ITS | Encounter Summary ---
Author Organization [facility] Address [address] [place] [address] Care Team Providers Care Oracle Forms Developer Name Role Phone Unavailable Primary Care Provider Unavailabl e Encounter Details Date Type Department Care Team (Late st Contact Info) Description 04/19/2025 Results Follow-Up [facility] [email or web address] [place] [address] Mary Thorpe LPN [address] [place] [id number] Social History Tobacco Use Types Packs/Day Years [...] Description 05/30/2025 8:30 AM EDT Routine [facility] [place] [facility] [address] [facility] [address] [place] [address] Cain Donaldson DO [address] [facility] [place] [address] 06/06/2025 8:40 AM EDT Routine [facility] [address] [place] [address] [place] [address] Christy Schwartz, PA [address] [facility] [place] [address] 06/13/2025 8:30 AM EDT Routine [facility] [address] [place] [address] [place] [address] Christy Schwartz, PA [address] [facility] [place] [address] documented as of this encounter Goals Goal Patient Goal Type Associated Problems Recent Progress Patient-Stated? Author Reminders Care Plan OB Reminders No Open Scheduling, Background documented as of this encounter Visit Diagnoses Not on filedocumented in this encounter Additional Health Concerns Active Problems Noted Date Diagnosed Date OB Reminders 11/26/2024 documented as of this encounter
--- OUTSIDE RECORDS SUMMARY | 2025-05-27 17:02 | XMS_ITS | Encounter Summary ---
Author Organization [facility] Address [address] [place] [address] Care Team Providers Care Tank Farm Attendant Name Role Phone Unavailable Primary Care Provider Unavailabl e Encounter Details Date Type Department Care Team (Late Contact Info) Description 05/24/2025 Clinisync Result Encounter [facility] External Department Unsolicited George Scherer NP [address] [facility] [place] [address] Social History Tobacco Use Types Packs/Day [...] 05/30/2025 8:30 AM EDT Routine [facility] [address] [facility] [place] [address] Cain Donaldson DO [address] [facility] [address] [place], [place] [id number] 06/06/2025 8:40 AM EDT Routine [facility] [address] [facility] [place] [address] Christy Schwartz PA [address] [facility] [place] [address] 06/13/2025 8:30 AM EDT Routine [facility] [address] [facility] [place] [address] Christy Schwartz PA [address] [facility] [place] [address] documented as of this encounter Goals Goal [...] PM EDT Narrative 05/24/2025 9:57 PM EDT [address] [address] Ultrasound Report Signed Patient: KEVIN WHITE MR#: [id number] : 1995 Acct:[id number] Age/Sex: 29 / F ADM Date: 05/24/25 Loc: US Attending Dr: George Scherer Ordering Physician: Goerge Scherer Date of Service: 05/24/25 Procedure(s): US OB BPP w non-stress Accession Number(s): [id number] cc: George Scherer; Cain Donaldson D.O. The [address] [address] Patient Name: KEVIN WHITE MRN: [id number] date: 1995 Sex: F Assigned Patient Location: [facility] Current Patient Location: Accession/Order Number: [id number] Exam Date: 05/24/2025 21:54 Report Date: 05/24/2025 [...] Steen M.D. 05/24/2025 9:55 PM Dictation Location: [place] [address] Electronically authenticated by: [id number] Y Date: 05/24/2025 21:55 Dictated By: Zion Steen D.O. Signed By: 05/24/252156 DD/ 54 TD/TT: Automatic Mounter: Procedure Note Radiology, Radiologist, MD - 05/24/2025 [place] [address] Ultrasound Report Signed Patient: KEVIN WHITE TMR#: [id number] : 1995Acct:[id number] Age/Sex: 29 FADM Date: 05/24/25 Loc: US Attending Dr: George Scherer Ordering Physician: George Scherer Date of Service: 05/24/25 Procedure(s): US OB BPP w non-stress Accession Number(s): [id number] cc: George Scherer; Cain Donaldson D.O. The [place] [id number] Patient Name: KEVIN WHITE MRN: [id number] date: 1995 Sex: F Assigned Patient Location: [facility] Current Patient Location: Accession/Order Number: [id number] Exam Date: 05/24/2025 21:54 Report Date: 05/24/2025 [...] Steen M.D. 05/24/2025 9:55 PM Dictation Location: [employer] Electronically authenticated by: [id number] Y Date: 1:55 Dictated By: Zion Steen D.O. Signed By:05/24/252156 DD/ 54 TD/TT: Automatic Mounter: us George Scherer [facility] Final Resul t documented in this encounter Visit Diagnoses Not on filedocumented in this encounter Additional Health Concerns Active Problems Noted Date Diagnosed Date OB Reminders 11/26/2024 documented as of this encounter
--- OUTSIDE RECORDS SUMMARY | 2025-05-27 17:02 | XMS_ITS | Encounter Summary ---
Author Organization [facility] Address [address] [place] [address] Care Team Providers Care Assistant Plant Manager Name Role Phone Unavailable Primary Care Provider Unavailabl e Encounter Details Date Type Department Care Team (Late st Contact Info) Description 12/24/2024 Abstract [facility] [address] [place] [address] [place] [address] Cain Donaldson DO [address] [place] [address] Christo [place], [facility]11 Social History Tobacco Use Types [...] Info) Description 05/30/2025 8:30 AM EDT Routine [facility] [address] [place] [address] Cain Donaldson DO [facility] [place], [facility]11 06/06/2025 8:40 AM EDT Routine [facility] [place] [address] Christy Schwartz PA [address] [facility] [place] [address] 06/13/2025 8:30 AM EDT Routine [facility] [address] [facility] [place] [address] Christy Schwartz PA [address] [facility] [address] [place], [place] [address] documented as of this encounter Goals Goal Patient Goal Type Associated Problems Recent Progress Patient-Stated? Author Reminders Care Plan OB Reminders No Open Scheduling, Background documented as of this encounter Visit Diagnoses Not on filedocumented in this encounter Additional Health Concerns Active Problems Noted Date Diagnosed Date OB Reminders 11/26/2024 documented as of this encounter
--- OUTSIDE RECORDS SUMMARY | 2025-05-27 17:02 | XMS_ITS | Encounter Summary ---
Author Organization [facility] Address [address] [place] [address] Care Team Providers Care Housesmith Name Role Phone Unavailable Primary Care Provider Unavailabl e Encounter Details Date Type Department Care Team (Late Contact Info) Description 05/26/2025 Bamboo flowsheet [facility] [address] [facility] [address] Christy Schwartz PA [address] [facility] [address] [place], [place] [address] Social History Tobacco Use Types Packs/Day Years [...] AM EDT Routine [facility] [address] [facility] [address] Cain Donaldson DO [address] [facility] [address] [place], [id number] 06/06/2025 8:40 AM EDT Routine [facility] [address] [place] [address] [place] [address] Christy Schwartz PA [address] [facility] [place] [address] 06/13/2025 8:30 AM EDT Routine [facility] [address] [facility] [place] [address] Christy Schwartz PA [address] [facility] [address] [place], [place] [address] documented as of this encounter Goals Goal Patient Goal Type Associated Problems Recent Progress Patient-Stated? Author Reminders Care Plan OB Reminders No Open Scheduling, Background documented as of this encounter Visit Diagnoses Not on filedocumented in this encounter Additional Health Concerns Active Problems Noted Date Diagnosed Date OB Reminders 11/26/2024 documented as of this encounter
--- OUTSIDE RECORDS SUMMARY | 2025-05-27 17:02 | XMS_ITS | Encounter Summary ---
Author Organization [facility] Address [address] [place] [place] [address] Care Team Providers Care Zipper Measurer Name Role Phone Unavailable Primary Care Provider Unavailabl e Encounter Details Date Type Department Care Team (Late st Contact Info) Description 11/12/2024 Abstract [facility] [address] [place] [address] [place] [address] Cain Donaldson DO [address] [place] [address] [address] [place], [place] [phone] Social History Tobacco Use Types Packs/Day Years [...] Info) Description 05/30/2025 8:30 AM EDT Routine [facility] [address] [place] [address] [place] [address] Cain Donaldsno DO [address] [place] [address] [address] [place], [place] [id number] 06/06/2025 8:40 AM EDT Routine [facility] [address] [place] [address] [place] [address] Christy Schwartz PA [address] [facility] [address] 06/13/2025 8:30 AM EDT Routine [facility] [address] [facility] [place] [address] Christy Schwartz PA [address] [facility] [address] [place], [place] [address] documented as of this encounter Visit Diagnoses Not on filedocumented in this encounter
--- OUTSIDE RECORDS SUMMARY | 2025-05-27 17:02 | XMS_ITS | Encounter Summary ---
Author Organization [facility] Address [address] [place] [place] [address] Care Team Providers Care Pin Sticker Name Role Phone Unavailable Primary Care Provider Unavailabl e Encounter Details Date Type Department Care Team (Late st Contact Info) Description 11/26/2024 Abstract [facility] [address] [place] [address] [place] [address] Cain Donaldson DO [facility] [place] Christo [place], [facility]11 Social History Tobacco Use Types Packs/Day [...] 8:30 AM EDT Routine [facility] [address] [facility] [place] [address] Cain Donaldson DO [facility] [place], [facility]11 06/06/2025 8:40 AM EDT Routine [facility] [place] [address] Christy Schwartz PA [address] [facility] [place] [address] 06/13/2025 8:30 AM EDT Routine [facility] [address] [facility] [address] Christy Schwartz PA [address] [facility] [address] [place], [place] [address] documented as of this encounter Goals Goal Patient Goal Type Associated Problems Recent Progress Patient-Stated? Author Reminders Care Plan OB Reminders No Open Scheduling, Background documented as of this encounter Visit Diagnoses Not on filedocumented in this encounter Additional Health Concerns Active Problems Noted Date Diagnosed Date OB Reminders 11/26/2024 documented as of this encounter
--- OUTSIDE RECORDS SUMMARY | 2025-05-27 17:02 | XMS_ITS | Encounter Summary ---
Author Organization [facility] Address [address] [place] [address] Care Team Providers Care Missile Facilities Repairer Name Role Phone Unavailable Primary Care Provider Unavailabl e Encounter Details Date Type Department Care Team (Late st Contact Info) Description 12/27/2024 Abstract [facility] [address] [place] [address] [place] [address] Cain Donaldson DO [address] [place] [address] Christo [place], [facility]11 Social History Tobacco Use Types Packs/Day [...] 8:30 AM EDT Routine [facility] [address] [facility] [place] [address] Cain Donaldson DO [facility] Inoc[place], [facility]11 06/06/2025 8:40 AM EDT Routine [facility] [place] [address] Christy Schwartz PA [address] [facility] [place] [address] 06/13/2025 8:30 AM EDT Routine [facility] [address] [facility] [place] [address] Christy Schwartz PA [address] [facility] [address] [place], [place] [address] documented as of this encounter Goals Goal Patient Goal Type Associated Problems Recent Progress Patient-Stated? Author Reminders Care Plan OB Reminders No Open Scheduling, Background documented as of this encounter Visit Diagnoses Not on filedocumented in this encounter Additional Health Concerns Active Problems Noted Date Diagnosed Date OB Reminders 11/26/2024 documented as of this encounter
--- OUTSIDE RECORDS SUMMARY | 2025-05-27 17:02 | XMS_ITS | Encounter Summary ---
Author Organization [facility] Address [address] [place] [address] Care Team Providers Care Tunneller Name Role Phone Unavailable Primary Care Provider Unavailabl e Encounter Details Date Type Department Care Team (Late Contact Info) Description 05/16/2025 Bamboo flowsheet [facility] Con[facility] BARRETT [address] [place] [address] [place] [address] Cain Donaldson DO [address] [place] [address] Christo Prieto, [place] [address] Social History Tobacco Use Types Packs/Day Years [...] 8:30 AM EDT Routine [facility] Con[facility] BARRETT [address] [place], [place] [address] [address] Cain Donaldson DO [address] [place] [address] [place] [address] 06/06/2025 8:40 AM EDT Routine NOMJ[facility] BARRETT [facility] [place] [address] Christy Schwartz PA [address] [facility] [place] [address] 06/13/2025 8:30 AM EDT Routine [facility] Conner RICOGYN [address] [facility] [place] [address] Christy Schwartz PA [address] [facility] [address] [facility] [address] [place], [place] [phone] documented as of this encounter Goals Goal Patient Goal Type Associated Problems Recent Progress Patient-Stated? Author Reminders Care Plan OB Reminders No Open Scheduling, Background documented as of this encounter Visit Diagnoses Not on filedocumented in this encounter Additional Health Concerns Active Problems Noted Date Diagnosed Date OB Reminders 11/26/2024 documented as of this encounter
--- OUTSIDE RECORDS SUMMARY | 2025-05-27 17:02 | XMS_ITS | Clinical Summary ---
Author Organization [facility] tem Address [id number] [address] [place] [address] Care Team Providers Care Welt Sewer Name Role Phone Unavailable Primary Care Provider [...] EDT Telemedicine Maternal- Medicine at [facility] [address] [place] [address] Devika Pulido, PA-Pat Insulin controlled gestational diabetes mellitus (GDM) in third trimester (Primary Dx) 05/23/2025 Travel 05/17/2025 Telephone Maternal- Medicine at [facility] [address] [place] [address] Sonya Lomax, NARESH 05/11/2025 Telephone Maternal- Medicine at [facility] [address] [place] [address] Belen Fowler, ANNETTE 05/03/2025 Telephone Maternal- Medicine at [facility] [address] [place] [address] Shoshana Berger, ANNETTE 04/25/2025 11:30 AM EDT Telemedicine Maternal- Medicine at [facility] [address] [place] [address] Devika Pulido PA-Pat Insulin controlled gestational diabetes mellitus (GDM) in third trimester (Primary Dx) 04/25/2025 Travel 04/25/2025 Telephone Maternal- Medicine at [facility] [address] [place] [address] Giselle Cheng CMA 04/20/2025 Telephone Maternal- Medicine at [facility] [address] [place] [address] Aissatou Stoner RN 04/14/2025 Travel 04/12/2025 Telephone Maternal- Medicine at [facility] [address] [place] [address] Sonya Lomax, NARESH 04/11/2025 Orders Only Maternal- Medicine at [facility] [address] [place] [address] Devika Pulido, PA-C 04/11/2025 Remote Patient Monitoring Maternal- Medicine at [place] [address] [place] [address] Devika Pulido, PA-C Insulin controlled gestational diabetes mellitus (GDM) in second trimester; Prediabetes in mother during 03/30/2025 1:30 PM EDT Telemedicine Maternal- Medicine at [facility] [address] [place] [address] Sintia Martinez, ASSIGNMENT OFFICER-ASSOCIATE PROFESSOR OF FORESTRY Insulin controlled gestational diabetes mellitus (GDM) in second trimester (Primary Dx); Recurrent major depressive disorder, in partial remission; Prediabetes in mother during 03/30/2025 Travel 03/22/2025 Telephone Maternal- Medicine at [facility] [address] [place] [address] Soyna Lomax, NARESH 03/16/2025 7:48 AM EDT - 03/16/2025 11:59 PM EDT Hospital Encounter [facility] - [facility] US Imaging [address] [place] [address] Insulin controlled gestational diabetes mellitus (GDM) in second trimester; Choroid plexus cyst of fetus affecting care of mother, antepartum, single or unspecified fetus; Heterozygous factor V Leiden affecting in second trimester, antepartum; Severe obesity due to excess calories affecting , antepartum ([facility]) Discharge Disposition: Home 03/16/2025 Telephone Maternal- Medicine at [facility] [address] [place] [address] Sonya Lomax, NARESH 03/15/2025 Travel 03/11/2025 Telephone Maternal- Medicine at [facility] [address] [place] [address] Naomy Thompson RN 03/07/2025 Telephone Maternal- Medicine at [facility] [address] [place] [address] Sonya Lomax, NARESH 03/07/2025 Orders Only Maternal- Medicine at [facility] [address] [place] [address] Cole Wade MD Insulin controlled gestational diabetes mellitus (GDM) in second trimester; Prediabetes in mother during 03/01/2025 Telephone Maternal- Medicine at [facility] [address] [place] [address] Valerie Le RN 02/28/2025 Orders Only Maternal- Medicine at [facility] [address] [place] [address] Devika Pulido PA-C Insulin controlled gestational diabetes mellitus (GDM) in second trimester; Prediabetes in mother during from Last 3 Months Family History Medical [...] due to excess calories affecting , antepartum ([facility]) PAP SMEAR Routine 11/24/2020 6:26 AM EST Encounter for gynecological examination without abnormal finding from Last 3 Months or Most Recently Relevant to Health Maintenance Results * US MFM OB FOLLOW-UP, 1 FETUS (04/14/2025 9:05 AM EDT) Only the most recent of2 resultswithin the time period is included. Anatomical Region Laterality Modality OB-OPERATOR VACUUM Ultrasound 04/14/2025 8:07 AM EDT Narrative 04/14/2025 1:39 PM EDT NAME: CINDY GRECO : 1995 SEX: F Accession Number: [id number] ORDERING PHYSICIAN: JAIDA CHADWICK REFERRING PHYSICIAN: ALFREDO PROCTOR Coding ----- --------- Procedures 30354: Follow-up Ultrasound, per fetus Indication ----- --------- Screening for follow-up survey, Screening for congenital cardiac abnormality, resulting from assisted reproductive technology, Gestational diabetes, Obesity in , Depression, Supervision of high risk (LT Choroid plexus cyst)-resolved History ----- --------- OB History 2. Para 0 [id number] Maternal Assessment ----- --------- Physical Exam Height [...] EFW (oz) 6 oz EFW by: Hadlock (FHT-XT-AO-FL) Extended Tibia 47.6 mm 28w 6d 23% Padmini Viticulture Teacher 3.1 mm CM 10.2 mm 99% Nicolaides [...] Thorax RVOT view. LVOT view. 3-vessel view. 4-jmwhkg-kejugkk view. Right lung. Left lung. Abdomen Right [...] view documented previously 3-vessel view documented previously 3-cvvqhb-mtkcnef view documented previously Aortic arch view documented [...] 6.5 cm. Recommendations ----- --------- Please see [facility] recommendations from prior clinical and/or ultrasound report documentation. The patient is scheduled in four weeks to complete anatomic survey and echocardiogram. Continue testing as previously recommended. Subsequent follow up or other follow up as clinically determined by primary OB provider unless otherwise specified by [facility]. Results forwarded to ordering provider so they can follow up with the patient as necessary. Procedure Note Jaida Chadwick MD - 04/14/2025 NAME: CINDY GRECO : 1995 SEX: F Accession Number: [id number] ORDERING PHYSICIAN: JAIDA CHADWICK REFERRING PHYSICIAN: ALFREDO PROCTOR Coding ----- --------- Procedures 25050: Follow-up Ultrasound, per fetus Indication ----- --------- Screening for follow-up survey, Screening for congenital cardiacabnormality, resulting from assisted reproductive technology, Gestational diabetes, Obesity in , Depression,Supervision of high risk (LT Choroid plexus cyst)-resolved History ----- --------- OB History 2. Para 0 [id number] Maternal Assessment ----- --------- Physical Exam Height [...] EFW (oz) 6 oz EFW by: Hadlock (AOL-GA-YQ-FL) Extended Tibia 47.6 mm 28w 6d 23% Padmini Viticulture Teacher 3.1 mm CM 10.2 mm 99% Nicolaides [...] Thorax RVOT view. LVOT view. 3-vessel view. 7-kiiyxc-pgzkcfumhip. Right lung. Left lung. Abdomen Right renal [...] view documented previously 3-vessel view documented previously 7-qivzmn-bmdvrcv view documented previously Aortic arch view documented [...] 6.5 cm. Recommendations ----- --------- Please see [facility] recommendations from prior clinical and/or ultrasoundreport documentation. The patient is scheduled in four weeks to complete anatomic survey andfetal echocardiogram. Continue testing as previously recommended. Subsequent follow up or other follow up as clinically determined byprimary OB provider unless otherwise specified by M. Results forwarded to ordering provider so they can follow up with thepatient as necessary. us Jaida Chadwick MD [facility] US ORDERABLES Final Result * Pap Smear (11/24/2020 6:26 AM EST) 11/24/2020 6:26 AM EST 11/24/2020 6:35 AM EST Narrative COPATH - 11/28/2020 11:50 AM EST [facility] [address] [place] [address] Gynecologic Cytology Consultation Patient Name: KEVIN MOORE : 1995 (Age: 25) Gender: F Taken: 11/24/2020 Reported: 11/28/2020 Physician(s): Al Orr M.D. ( ) Copy To: [facility]. Rec. #: [id number] Acct: # [id number] Final Cytologic Interpretation ThinPrep Pap Test (Cervical): Satisfactory for evaluation. A transformation zone component was not noted. NEGATIVE FOR INTRAEPITHELIAL LESION OR MALIGNANCY. [facility]/11/28/2020 Interpretation performed at [facility], [address] [place] [address], License number: [id number]. Electronically Signed Out By PAUL Lopez(ASCP) Date of Last Menstrual Period: 09/12/2020 Other Clinical Conditions: Z01.419 Director Video exam wo/abn findings Source of Specimen ThinPrep Pap Test (Cervical) Thin Prep Pap (OPERATOR VACUUM) Fee Code(s): G0145 The Pap test is a screening test with an inherent, but low, probability of error. The Pap test is primarily effective for the diagnosis and prevention of squamous cell carcinoma. Regular screening is critical for prevention. ThinPrep liquid-based slides, which meet the Digital Marketing Intern criteria for automated screening, have been screened by the CinemaNowPrep Imaging System (as of 07/20/07) along with an additional manual rescreening by a telephone order clerk room service and, if indicated, by a pathologist. Al Orr MD PATHOLOGY/CYTOLOGY ORDERABLE S Final Result COPATH from Last 3 Months or Most Recently Relevant to Health Maintenance Insurance ANTHEM ANTHEM
--- OUTSIDE RECORDS SUMMARY | 2025-05-27 17:02 | XMS_ITS | Encounter Summary ---
Author Organization [facility] Address [address] [place] [address] Care Team Providers Care Autism Motor Specialist Name Role Phone Unavailable Primary Care [...] 8:30 AM EDT Routine [facility] Conner BARRETT [address] [place] [address] [place] [address] Cain Donaldson DO [address] [facility] [address] [place], [place] [id number] 06/06/2025 8:40 AM EDT Routine [facility] Conner BARRETT [address] [place] [address] Christy Schwartz PA [address] [facility] [address] [place], [place] [address] 06/13/2025 8:30 AM EDT Routine [facility]OM[facility] Conner OBGYBrian [address] [place] [address] Christy Schwartz PA [address] [facility] [place] [address] documented as of this encounter Goals Goal Patient Goal Type Associated Problems Recent Progress Patient-Stated? Author Reminders Care Plan OB Reminders No Open Scheduling, Background documented as of this encounter Visit Diagnoses Not on filedocumented in this encounter Additional Health Concerns Active Problems Noted Date Diagnosed Date OB Reminders 11/26/2024 documented as of this encounter
--- OUTSIDE RECORDS SUMMARY | 2025-05-27 17:03 | XMS_ITS | Encounter Summary ---
Author Organization [facility] Address [address] [place] [address] Care Team Providers Care Clinical Documentation Nurse Name Role Phone Unavailable Primary Care Provider Unavailabl e Encounter Details Date Type Department Care Team (Late st Contact Info) Description 01/27/2025 Orders Only [facility] Conner BARRETT [address] [facility] [place] [address] Damaris Lopez LPN [address] [facility] [place] [address] Social History Tobacco Use Types Packs/Day Years [...] AM EDT Routine [facility] Conner BARRETT [address] [facility] [place] [address] Cain Donaldson DO [address] [facility] [address] [place] 06/06/2025 8:40 AM EDT Routine [facility] Conner BARRETT [address] [facility] [place] [address] Christy Schwartz PA [address] [facility] [place] [address] 06/13/2025 8:30 AM EDT Routine [facility] Conner OBGYN [address] [facility] [place] [address] Christy Schwartz PA [address] [facility] [address] [place], [place] [id number] documented as of this encounter Goals Goal [...]
--- OUTSIDE RECORDS SUMMARY | 2025-05-27 17:03 | XMS_ITS | Encounter Summary ---
Author Organization [facility] Address [address] [place] [address] Care Team Providers Care Film Developing Machine Operator Name Role Phone Unavailable Primary Care Provider Unavailabl e Encounter Details Date Type Department Care Team (Late Contact Info) Description 05/17/2025 Clinisync Result Encounter NOMS External Department Unsolicited George Scherer NP [address] [facility] [place] [address] Social History Tobacco Use Types Packs/Day [...] AM EDT Routine [facility] Conner BARRETT [address] [facility] [address] Cain Donaldson DO [address] [facility] [address] [place], [place] [id number] 06/06/2025 8:40 AM EDT Routine [facility] Conner BARRETT [address] [facility] [place] [address] Christy Schwartz PA [address] [facility] [place] [address] 06/13/2025 8:30 AM EDT Routine NOMS Conner TRISHAGYN [address] [facility] [address] Christy cShwartz PA [address] [facility] [place] [address] documented as of this encounter Goals Goal [...] AM EDT Narrative 05/17/2025 8:09 AM EDT [address] [address] Ultrasound Report Signed Patient: KEVIN WHITE MR#: [id number] : 1995 Acct:[id number] Age/Sex: 29 / F ADM Date: 05/16/25 Loc: US Attending Dr: George Scherer Ordering Physician: George Scherer Date of Service: 05/16/25 Procedure(s): US OB BPP w non-stress Accession Number(s): [id number] cc: George Scherer; Cain Donaldson D.O. The [address] [address] Patient Name: KEVIN WHITE MRN: [id number] date: 1995 Sex: F Assigned Patient Location: US Current Patient Location: Accession/Order Number: [id number] Exam Date: 05/17/2025 08:06 Report Date: 05/17/2025 [...] Munson M.D. 05/17/2025 8:07 AM Dictation Location: [place] [address] Electronically authenticated by: [id number] Y Date: 05/17/2025 08:07 Dictated By: Justina Munson M.D. Signed By: 05/17/25808 DD/ 6 TD/TT: Elementary [employer] Professional: Procedure Note Radiology, Radiologist, - 05/17/2025 [place] [address] Ultrasound Report Signed Patient: KASH WHITE#: [id number] : 1995Acct:[id number] Age/Sex: 29 / FADM Date: 05/16/25 Loc: US Attending Dr: George Scherer Ordering Physician: George Scherer Date of Service: 05/16/25 Procedure(s): US OB BPP w non-stress Accession Number(s): [id number] cc: George Scherer; Cain Donaldson D.O. The [place] [address] Patient Name: KEVIN WHITE MRN: [id number] date: 1995 Sex: F Assigned Patient Location: Current Patient Location: Accession/Order Number: [id number] Exam Date: 05/17/2025 08:06 Report Date: 05/17/2025 [...] Munson M.D. 05/17/2025 8:07 AM Dictation Location: [place] [address] Electronically authenticated by: [id number] Y Date: 508:07 Dictated By: Justina Munson M.D. Signed By:05/17/25 0809 DD/ 0807 TD/TT: Elementary [employer] Professional: George Scherer LAPPING MACHINE OPERATOR [facility] Final Resul t documented in this encounter Visit Diagnoses Not on filedocumented in this encounter Additional Health Concerns Active Problems Noted Date Diagnosed Date OB Reminders 11/26/2024 documented as of this encounter
--- OUTSIDE RECORDS SUMMARY | 2025-05-27 17:03 | XMS_ITS | Encounter Summary ---
Author Organization [facility] Address [address] [facility] [place] [address] Care Team Providers Care Delivery Representative Name Role Phone Unavailable Primary Care Provider Unavailabl e Encounter Details Date Type Department Care Team (Late st Contact Info) Description 04/14/2025 Abstract BROOKS BARRETT [address] [place] [address] [place] [address] Yue Dumont MA Social History Tobacco [...] 05/30/2025 8:30 AM EDT Routine NOMJasper BARRETT [address] [place] [address] [place] [address] Cain Donaldson DO [address] [facility] [place] [address] 06/06/2025 8:40 AM EDT Routine NOMJasper BARRETT [address] [place] [address] [place] [address] Christy Schwartz PA [address] [facility] [place] [address] 06/13/2025 8:30 AM EDT Routine NOMS Conner BARRETT [address] [facility] [address] Christy Schwartz PA [address] [facility] [place] [address] documented as of this encounter Goals Goal Patient Goal Type Associated Problems Recent Progress Patient-Stated? Author Reminders Care Plan OB Reminders No Open Scheduling, Background documented as of this encounter Visit Diagnoses Not on filedocumented in this encounter Additional Health Concerns Active Problems Noted Date Diagnosed Date OB Reminders 11/26/2024 documented as of this encounter
--- OUTSIDE RECORDS SUMMARY | 2025-05-27 17:03 | XMS_ITS | Encounter Summary ---
Author Organization [facility] tem Address [id number] [address] [place] [address] Care Team Providers Care Insurance Defense Paralegal Name Role Phone Unavailable Primary Care Provider Unavailabl e Encounter Details Date Type Department Care Team (Late st Contact Info) Description 01/27/2025 Orders Only Maternal- Medicine at [facility] [address] [place] [address] Sintia Martinez, PLAYROOM ATTENDANT-HOT METAL CHARGER [address] [place] [address] Social History Tobacco Use Types Packs/Day Years [...]
--- OUTSIDE RECORDS SUMMARY | 2025-05-27 17:03 | XMS_ITS | Encounter Summary ---
Author Organization [facility] tem Address [facility][id number] [address] [place] [address] Care Team Providers Care Cold Working Supervisor Name Role Phone Unavailable Primary Care Provider Unavailabl e Encounter Details Date Type Department Care Team (Late st Contact Info) Description 02/17/2025 Orders Only Maternal- Medicine at [facility] [address] [place] [address] Christy Prado LPN Insulin controlled gestational diabetes mellitus (GDM) in second trimester; Prediabetes in mother during ; 20 weeks gestation of ; Choroid plexus cyst of fetus affecting care of mother, antepartum, single or unspecified fetus; Heterozygous factor V Leiden affecting in second trimester, antepartum; Severe obesity due to excess calories affecting , antepartum ([facility]); Bipolar disorder, in full remission, [...] to excess calories affecting , antepartum ([facility]) Bipolar disorder, in full remission, most recent episode depressed documented in this encounter Results * Unlisted Lab Test (02/08/2025) 02/08/2025 us Gricelda Chadwick MD LAB BLOOD ORDERABLES Final Resul t [facility] documented in this encounter Visit Diagnoses Diagnosis Insulin controlled gestational diabetes mellitus (GDM) in second trimester Prediabetes in mother during 20 weeks gestation of Choroid plexus cyst of fetus affecting care of mother, antepartum, single or unspecified fetus Heterozygous factor V Leiden affecting in second trimester, antepartum Severe obesity due to excess calories affecting , antepartum ([facility]) Bipolar disorder, in full remission, most recent episode depressed documented in this encounter Additional Health Concerns Assessment Noted Time PHQ-9 Depression Total Score: 2 07/03/20 16 9:00 AM EDT documented as of this encounter
--- OUTSIDE RECORDS SUMMARY | 2025-05-27 17:03 | XMS_ITS | Encounter Summary ---
Author Organization [facility] Address [address] [facility] [place] [address] Care Team Providers Care Policy Change Clerk Name Role Phone Unavailable Primary Care Provider Unavailabl e Encounter Details Date Type Department Care Team (Late st Contact Info) Description 03/18/2025 Abstract BROOKS BARRETT [address] [place] [address] [place] [address] Yue Dmuont MA Social History Tobacco Use Types Packs/Day [...] 05/30/2025 8:30 AM EDT Routine NOMJasper BARRETT [address] [place] [address] [place] [address] Cain Donaldson DO [address] [facility] [place] [address] 06/06/2025 8:40 AM EDT Routine NOMJasper BARRETT [address] [place] [address] [place] [address] Christy Schwartz PA [address] [facility] [place] [address] 06/13/2025 8:30 AM EDT Routine [facility] Conner BARRETT [address] [facility] [place] [address] Christy Schwartz PA [address] [facility] [place] [address] documented as of this encounter Goals Goal Patient Goal Type Associated Problems Recent Progress Patient-Stated? Author Reminders Care Plan OB Reminders No Open Scheduling, Background documented as of this encounter Visit Diagnoses Not on filedocumented in this encounter Additional Health Concerns Active Problems Noted Date Diagnosed Date OB Reminders 11/26/2024 documented as of this encounter
--- OUTSIDE RECORDS SUMMARY | 2025-05-27 17:03 | XMS_ITS | Encounter Summary ---
Author Organization [facility] tem Address [id number] [address] [place] [address] Care Team Providers Care Histology Tech Name Role Phone Unavailable Primary Care Provider Unavailabl e Encounter Details Date Type Department Care Team (Late st Contact Info) Description 12/30/2024 Orders Only Maternal- Medicine at [facility] [address] [place] [address] Ref Prov, [place] [address] Social History Tobacco Use Types Packs/Day Years [...]
--- OUTSIDE RECORDS SUMMARY | 2025-05-27 17:03 | XMS_ITS | Clinical Summary ---
Author Organization [facility] Address [address] [place] [address] Care Team Providers Care Auto Rental Clerk Name Role Phone Unavailable Primary Care Provider Unavailabl e Allergies No known active allergies Medications Alcohol Swabs (Alcohol Prep Pad) 70 % padsIndications: Elevated glucose tolerance test, resulting from in vitro fertilization, antepartum ([facility]) Apply 1 Pad topically Daily Use four times daily to check FSBS. 150 each 3 5 Active Blood Glucose Monitoring Suppl (D-Care Glucometer) w/Device kitIndications:E levated glucose tolerance test, resulting from in vitro fertilization, antepartum ([facility]) 1 kit Daily Use four times daily to check FSBS. In the morning prior to breakfast & 1 hour after each meal for a total of 4times daily. 1 kit 5 12/23/19 26 Active insulin syringe 29G X 1/2 0.5 mL miscIndications: Gestational diabetes mellitus (GDM), antepartum, gestational diabetes method of control unspecified ([facility]) Use 2 syringes in the morning for [...] 05/26/2025 8:50 AM [place] [address] Christy Schwartz PA Third trimester ([facility]); 36 weeks gestation of ([facility]) 05/26/2025 Bamboo flowsheet [facility] [place] [address] Christy Schwartz PA 05/26/2025 Travel 05/24/2025 Clinisync Result Encounter NOMS External Department Unsolicited Belgica Scherer NP 05/17/2025 Clinisync Result Encounter NOMS External Department Unsolicited Belgica Scherer NP 05/16/2025 8:30 AM EDT Routine [facility] [place] [address] Alfredo Donaldson DO 34 weeks gestation of ([facility]); Third trimester ([facility]); Conceived by in vitro fertilization; Factor 5 Leiden mutation, heterozygous ([facility]); Insulin controlled gestational diabetes mellitus (GDM) during , antepartum ([facility]); Non-recurrent acute serous otitis media of left ear 05/16/2025 [place] [address] Alfredo Donaldson DO 05/10/2025 8:00 AM EDT Ancillary Procedure [facility] [place] [address] Insulin controlled gestational diabetes mellitus (GDM) during , antepartum ([facility]); Gestational diabetes mellitus (GDM), antepartum, gestational diabetes method of control unspecified ([facility]) 05/10/2025 Clinisync Result Encounter NOMS External Department Unsolicited Belgica Scherer NP 05/09/2025 Travel 05/04/2025 Clinisync Result Encounter NOMS External Department Unsolicited Belgica Scherer NP 05/03/2025 8:50 [place] [address] Christy Schwartz PA Gestational diabetes mellitus (GDM), antepartum, gestational diabetes method of control unspecified ([facility]) (Primary Dx); Third trimester ([facility]); 32 weeks gestation of ([facility]); Conceived by in vitro fertilization; Factor 5 Leiden mutation, heterozygous ([facility]); Insulin controlled gestational diabetes mellitus (GDM) during , antepartum ([facility]); size inconsistent with dates ([facility]) 05/03/2025 [place] [address] Christy Schwartz PA 04/27/2025 Clinisync Result Encounter NOMS External Department Unsolicited Belgica Scherer NP 04/26/2025 Travel 04/22/2025 [place] [address] Alfredo Donaldson, DO 04/19/2025 Results [place] [address] Mary Thorpe LPN 04/19/2025 Clinisync Result Encounter NOMS External Department Unsolicited Alfredo Donaldson, DO 04/19/2025 Clinisync Result Encounter NOMS External Department Unsolicited Alfredo Donaldson, DO 04/18/2025 10:10 AM [place] [address] Alfredo Donaldson, DO Third trimester ([facility]); 30 weeks gestation of ([facility]) 04/18/2025 Clinisync Result Encounter NOMS External Department Unsolicited Alfredo Donaldson, DO 04/18/2025 Bamboo flowsheet [facility]ICOG[facility] [address] [place] [address] Alfredo Donaldson, DO 04/17/2025 Clinisync Result Encounter NOMS External Department Unsolicited MendozaAlfredo, DO 04/14/2025 Abstract [facility] Painting [facility] [place] [address] [place] 04/11/2025 Clinisync Result Encounter NOMS External Department Unsolicited MendozaAlfredo, DO 04/11/2025 Clinisync Result Encounter NOMS External Department Unsolicited MendozaAlfredo wong, DO 04/05/2025 Clinisync Result Encounter NOMS External Department Unsolicited Alfredo Donaldson, DO 03/30/2025 8:50 AM EDT Routine [facility] Painting [facility] [place] [address] Christy Schwartz PA Second trimester ([facility]); 27 weeks gestation of ([facility]); Gestational diabetes mellitus (GDM), antepartum, gestational diabetes method of control unspecified ([facility]); Factor 5 Leiden mutation, heterozygous ([facility]); Conceived by in vitro fertilization 03/30/2025 Bamboo flowsheet [facility] [address] [place] [address] Christy Schwartz PA 03/30/2025 Travel 03/18/2025 Abstract NOMDebbie BARRETT [address] [place] [address] Yue Dumont [place] 03/03/2025 8:40 [place] [address] Alfredo Donaldson, DO 23 weeks gestation of ([facility]); Second trimester ([facility]); induced hypertension, antepartum ([facility]); Insulin controlled gestational diabetes mellitus (GDM) during , antepartum ([facility]) 03/03/2025 Bamboo flowsheet NOMDebbie BARRETT [address] [place] [address] [place] [address] Alfredo Donaldson DO 03/02/2025 Travel from Last [...] 05/30/2025 8:30 AM EDT Routine NOMDebbie BARRETT [address] [place] [address] [place] [address] Alfredo Donaldson, [address] [place] [address] Dr Kelsey [place], [place] [phone] 06/06/2025 8:40 AM EDT Routine NOMDebbie BARRETT [address] [place] [address] [place] [address] Christy Schwartz PA [address] [place] [address] [place], [place] [phone] 06/13/2025 8:30 AM EDT Routine NOMDebbie BARRETT [address] [place] [address] [place] [address] Christy Schwartz PA [address] [place] [address] [place] [address] Health Maintenance Due Date Last Done Comments HPV/Cotest 2023 Influenza Vaccine (#1) 2025 08/03/2024, 2022, 10/07/2022 Cervical Cancer Screening 01/21/2028 Pap Smear 01/21/2028 01/20/2025 Goals Goal Patient Goal Type Associated Problems Recent Progress Patient-Stated? Author Reminders Care Plan OB Reminders No Open Scheduling, Background Procedures Procedure Name Priority Date/Time Associated Diagnosis Comments POCT URINALYSIS DIPSTICK Routine 05/26/2025 8:59 AM EDT Third trimester ([facility]) US OB BPP W NON-STRESS 05/24/2025 9:55 PM EDT US OB BPP W NON-STRESS 05/17/2025 8:07 AM EDT URINARY TRACT INFECTION (HTRX) Routine 05/16/2025 9:46 AM EDT POCT URINALYSIS DIPSTICK Routine 05/16/2025 8:43 AM EDT 34 weeks gestation of ([facility]) Third trimester ([facility]) US OB BPP W NON-STRESS 05/10/2025 6:23 PM EDT US OB FOLLOW UP TRANSABDOMINAL APPROACH Routine 05/10/2025 8:32 AM EDT Insulin controlled gestational diabetes mellitus (GDM) during , antepartum ([facility]) Gestational diabetes mellitus (GDM), antepartum, gestational diabetes method of control unspecified ([facility]) US OB BPP W NON-STRESS 05/04/2025 7:58 AM EDT POCT URINALYSIS DIPSTICK Routine 05/03/2025 9:11 AM EDT Third trimester ([facility]) US OB BPP W NON-STRESS 04/27/2025 8:07 [...] 04/18/2025 9:05 PM EDT TB[facility] UA (CLEAN/CATCH) ASSEMBLER FILTERS/MICRO IF IND. Routine 04/18/2025 9:05 PM EDT POCT URINALYSIS DIPSTICK Routine 04/18/2025 10:40 AM EDT Third trimester ([facility]) TBH TOTAL PROTEIN 24 HOUR URINE Routine [...] 9:08 AM EDT 23 weeks gestation of ([facility]) Second trimester ([facility]) PAP SMEAR Routine 01/20/2025 12:00 AM EDT [...] - Positive Urine 05/26/2025 8:59 AM EDT us Christy MCKOY POINT OF CARE TEST ENTER/EDIT OR DERABLES Final Result * US OB BPP W NON-STRESS (05/24/2025 9:55 PM EDT) Only the most recent of8 resultswithin the time period is included. Anatomical Region Laterality Modality Other 05/24/2025 9:55 PM EDT Narrative 05/24/2025 9:57 [place] [address] Ultrasound Report Signed Patient: KEVIN WHITE MR#: [id number] : 1995 Acct:[id number] Age/Sex: 29 / F ADM Date: 05/24/25 Loc: US Attending Dr: Belgica Scherer Ordering Physician: Belgica Scherer Date of Service: 05/24/25 Procedure(s): US OB BPP w non-stress Accession Number(s): [id number] cc: Belgica Scherer; Alfredo Donaldson D.O. [place] [id number] Patient Name: KEVIN WHITE MRN: [id number] date: 1995 Sex: F Assigned Patient Location: [facility] Current Patient Location: Accession/Order Number: [id number] Exam Date: 05/24/2025 21:54 Report Date: 05/24/2025 [...] Steen M.D. 05/24/2025 9:55 PM Dictation Location: [employer] Electronically authenticated by: [id number] Y Date: 05/24/2025 21:55 Dictated By: Zion Steen D.O. Signed By: 05/24/252156 DD/ 54 TD/TT: Analytical Lab Analyst: Procedure Note Radiology, Radiologist, - 05/24/2025 [place] [address] Ultrasound Report Signed Patient: KEVIN WHITE TMR#: [id number] : 1995Acct:[id number] Age/Sex: 29 / FADM Date: 05/24/25 Loc: US Attending Dr: Belgica Scherer Ordering Physician: Belgica Scherer Date of Service: 05/24/25 Procedure(s): US OB BPP w non-stress Accession Number(s): [id number] cc: Belgica Scherer; Alfredo Donaldson D.O. [address] [place] [address] Patient Name: KEVIN WHITE MRN: [id number] date: 1995 Sex: F Assigned Patient Location: [facility] Current Patient Location: Accession/Order Number: [id number] Exam Date: 05/24/2025 21:54 Report Date: 05/24/2025 [...] Steen M.D. 05/24/2025 9:55 PM Dictation Location: [place] [address] Electronically authenticated by: [id number] Y Date: 1:55 Dictated By: Zion Steen D.O. Signed By:05/24/252156 DD/ 54 TD/TT: Analytical Lab Analyst: Belgica Scherer NP [facility] Final Resul t * URINARY TRACT INFECTION (HTRX) (05/16/2025 9:46 AM EDT) [facility] ACINETOBACTER BAUMANII 0 19.961 - 24.689 ppm 05/17/2025 7:54 AM EDT [facility] ACINETOBACTER BAUMANII Not Detected 19.961 - 24.689 ppm 05/17/2025 7:54 AM EDT [facility] CITROBACTER FREUNDII 0 23.000 - 32.015 ppm 05/17/2025 7:54 AM EDT [facility] CITROBACTER FREUNDII Not Detected 23.000 - 32.015 ppm 05/17/2025 7:54 AM EDT [facility] ENTEROBACTER AEROGENES, CLOACAE 0 23.000 - 32.290 ppm 05/17/2025 7:54 AM EDT [facility] ENTEROBACTER AEROGENES, CLOACAE Not Detected 23.000 - 32.290 ppm 05/17/2025 7:54 AM EDT [facility] ENTEROCOCCUS FAECALIS, FAECIUM 0 26.000 - 33.043 ppm 05/17/2025 7:54 AM EDT [facility] ENTEROCOCCUS FAECALIS, FAECIUM Not Detected 26.000 - 33.043 ppm 05/17/2025 7:54 AM EDT [facility] ESCHERICHIA COLI 0 23.000 - 28.500 ppm 05/17/2025 7:54 AM EDT [facility] ESCHERICHIA COLI Not Detected 23.000 - 28.500 ppm 05/17/2025 7:54 AM EDT [facility] KLEBSIELLA PNEUMONIAE, OXYTOCA 0 23.000 - 31.865 ppm 05/17/2025 7:54 AM EDT [facility] KLEBSIELLA PNEUMONIAE, OXYTOCA Not Detected 23.000 - 31.865 ppm 05/17/2025 7:54 AM EDT [facility] MORGANELLA MORGANII 0 19.961 - 24.689 ppm 05/17/2025 7:54 AM EDT [facility] MORGANELLA MORGANII Not Detected 19.961 - 24.689 ppm 05/17/2025 7:54 AM EDT [facility] PROTEUS MIRABILIS, VULGARIS 0 23.000 - 28.500 ppm 05/17/2025 7:54 AM EDT [facility] PROTEUS MIRABILIS, VULGARIS Not Detected 23.000 - 28.500 ppm 05/17/2025 7:54 AM EDT [facility] PSEUDOMONAS AERUGINOSA 0 23.000 - 31.801 ppm 05/17/2025 7:54 AM EDT [facility] PSEUDOMONAS AERUGINOSA Not Detected 23.000 - 31.801 ppm 05/17/2025 7:54 AM EDT [facility] STAPHYLOCOCCUS AUREUS 0 26.000 - 31.595 ppm 05/17/2025 7:54 AM EDT [facility] STAPHYLOCOCCUS AUREUS Not Detected 26.000 - 31.595 ppm 05/17/2025 7:54 AM EDT [facility] STREPTOCOCCUS AGALACTIAE (GROUP B STREP) 0 26.000 - 32.435 ppm 05/17/2025 7:54 AM EDT [facility] STREPTOCOCCUS AGALACTIAE (GROUP B STREP) Not Detected 26.000 - 32.435 ppm 05/17/2025 7:54 AM EDT [facility] DEAN ALBICANS, PARAPSILOSIS, TROPICALIS 0 23.000 - 30.347 ppm 05/17/2025 7:54 AM EDT [facility] DEAN ALBICANS, PARAPSILOSIS, TROPICALIS Not Detected 23.000 - 30.347 ppm 05/17/2025 7:54 AM EDT [facility] DEAN GLABRATA 0 23.000 - 31.618 ppm 05/17/2025 7:54 AM EDT [facility] DEAN GLABRATA Not Detected 23.000 - 31.618 ppm 05/17/2025 7:54 AM EDT [facility] DEAN KRUSEI 0 23.000 - 30.873 ppm 05/17/2025 7:54 AM EDT [facility] DEAN KRUSEI Not Detected 23.000 - 30.873 ppm 05/17/2025 7:54 AM EDT [facility] SERRATIA MARCESCENS 0 23.000 - 31.581 ppm 05/17/2025 7:54 AM EDT [facility] SERRATIA MARCESCENS Not Detected 23.000 - 31.581 ppm 05/17/2025 7:54 AM EDT [facility] STREPTOCOCCUS PYOGENES (GROUP A STREP) 0 19.961 - 24.689 ppm 05/17/2025 7:54 AM EDT [facility] STREPTOCOCCUS PYOGENES (GROUP A STREP) Not Detected 19.961 - 24.689 ppm 05/17/2025 7:54 AM EDT [facility] STAPHYLOCOCCUS EPIDERMIDIS, HAEMOLYTICUS, LUGDUNENSIS, SAPROPHYTICUS (URINA 0 19.961 - 24.689 ppm 05/17/2025 7:54 AM EDT [facility] STAPHYLOCOCCUS EPIDERMIDIS, HAEMOLYTICUS, LUGDUNENSIS, SAPROPHYTICUS (URINA Not Detected 19.961 - 24.689 ppm 05/17/2025 7:54 AM EDT [facility] STAPHYLOCOCCUS EPIDERMIDIS, HAEMOLYTICUS, LUGDUNENSIS, SAPROPHYTICUS (URINA 0 19.961 - 24.689 ppm 05/17/2025 7:54 AM EDT [facility] STAPHYLOCOCCUS EPIDERMIDIS, HAEMOLYTICUS, LUGDUNENSIS, SAPROPHYTICUS (URINA Not Detected 19.961 - 24.689 ppm 05/17/2025 7:54 AM EDT [facility] Urine 05/16/2025 9:46 AM EDT 05/17/2025 2:09 AM EDT us Alfredo Donaldson DO LAB BLOOD ORDERABLES Final Resul t [facility] [address] [place] [id number] * US OB follow up transabdominal approach [...] AM EDT Narrative 04/19/2025 8:52 [place] [address] Ultrasound Report Signed Patient: KEVIN WHITE MR#: [id number] : 1995 Acct:[id number] Age/Sex: 29 / F ADM Date: Loc: [facility] 254- Attending Dr: Alfredo Donaldson D.O. Ordering Physician: Alfredo Donaldson D.O. Date of Service: 04/19/25 Procedure(s): US renal BI Accession Number(s): [id number] cc: Alfredo Donaldson D.O. [address] [address] Patient Name: KEVIN WHITE MRN: [id number] date: 1995 Sex: F Assigned Patient Location: LAB Current Patient Location: Accession/Order Number: [id number] Exam Date: 04/19/2025 08:46 Report Date: 04/19/2025 [...] Munson M.D. 04/19/2025 8:49 AM Dictation Location: [place] [address] Electronically authenticated by: [id number] Y Date: 04/19/2025 08:49 Dictated By: Justina Munson M.D. Signed By: 04/19/25 0852 DD/ 0849 TD/TT: Analytical Lab Analyst: Procedure Note Radiology, Radiologist, MD - 04/19/2025 [place] [address] Ultrasound Report Signed Patient: KEVIN WHITEMR#: [id number] : 1995Acct:[id number] Age/Sex: Date: Loc: [facility] 254-[address]: Alfredo Donaldson D.O. Ordering Physician: Alfredo Donaldson D.O. Date of Service: 04/19/25 Procedure(s): US renal BI Accession Number(s): [id number] cc: Alfredo Donaldson D.O. [address] [place] [id number] Patient Name: KEVIN WHITE MRN: [id number] date: 1995 Sex: F Assigned Patient Location: LAB Current Patient Location: Accession/Order Number: [id number] Exam Date: 04/19/2025 08:46 Report Date: 04/19/2025 [...] Munson M.D. 04/19/2025 8:49 AM Dictation Location: [place] [address] Electronically authenticated by: [id number] Y Date: 508:49 Dictated By: Justina Munson M.D. Signed By:04/19/25 0852 DD/ 0849 TD/TT: Analytical Lab Analyst: Alfredo Mendoza DO [facility] Final Result * (ABNORMAL) [facility] GLUCOSE BLOOD (04/18/2025 11:43 PM EDT) GLUCOSE 108(H) 74 - 106 mg/dL [facility] 04/18/2025 11:4 3 PM EDT 04/19/2025 12:07 AM EDT Narrative CLINIS[facility] - 04/19/2025 12:15 AM EDT Alfredo Mendoza DO CLINISYNC Final Result [facility] * (ABNORMAL) TBH CREATININE (04/18/2025 11:43 PM EDT) Only the most recent of2 resultswithin the time period is included. CREATININE 0.44(L) 0.55 - 1.02 mg/dL TBH TBH EGFR-AF PUERTO RICAN >60 >=60 mL/min/1.7 3m 2 TBH TBH EGFR-NON AF PUERTO RICAN >60 >=60 mL/min/1.7 3m 2 [facility] 04/18/2025 11:4 3 PM EDT 04/19/2025 12:48 AM EDT Narrative CLINISYNC - 04/19/2025 12:56 AM EDT us Alfredo Donaldson DO CLINISYNC Final Result [facility]INIS[facility]NC TB [...] EDT Alfredo Mendoza DO [facility] Final [facility] * ALL BUN (04/18/2025 11:43 PM EDT) Only the most recent of2 resultswithin the time period is included. BLOOD UREA NITROGEN 13.0 7.0 - 18.0 mg/dL [facility] 04/18/2025 11:4 3 PM EDT 04/18/2025 11:53 PM EDT [facility] CLINISYNC - 04/19/2025 12:04 AM EDT Alfredo Mendoza CLINISYNC Final Result Performing Organization Address City/[facility]/ZIP Co de Phone Number [facility] * (ABNORMAL) [facility] URINE MICROSCOPIC ONLY [...] CLINISYNC [facility] * (ABNORMAL) [facility] UA (CLEAN/CATCH) ASSEMBLER FILTERS/MICRO IF IND. (04/18/2025 9:05 PM EDT) COLOR [...] DO CLINISYNC Final Result Performing Organization Address [facility]/ZIP Co de Phone Number CLINMAXIMINONC [facility] * [facility]H CREATININE URINE (04/18/2025 9:05 [...] Narrative CLINISYNC - 04/18/2025 10:45 AM EDT [employer] DO CLINISYNC Final Result Performing Organization Address [facility] Co de Phone Number [facility] * SRMCOH PROTHROMBIN TIME INR W/O [...] DO CLINISYNC Final Result Performing Organization Address City/[facility]/ZIP Co de Phone Number [facility] * (ABNORMAL) [facility] AST (04/11/2025 4:52 PM EDT) ASPARTATE AMINO TRANSFERASE 11(L) 15 - 37 U/L TB 04/11/2025 4:52 PM EDT 04/11/2025 4:56 PM EDT Narrative CLINISYNC - 04/11/2025 5:52 PM EDT [employer] DO CLINISYNC Final Result Performing Organization Address City/[facility]/ZIP Co de Phone Number [facility] * [facility] APTT (04/11/2025 4:52 PM EDT) PARTIAL THROMBOPLASTIN TIME 27.3 22.3 - 36.2 sec [facility] 04/11/2025 4:52 PM EDT 04/11/2025 4:56 PM EDT Narrative CLINISYNC - 04/11/2025 5:57 PM EDT us Alfredo Mendoza DO CLINIS[facility]NC Final Result Performing Organization Address [facility] Co de Phone Number [facility] * ALL URIC ACID (04/11/2025 4:52 PM EDT) URIC ACID 2.8 2.6 - 6.0 mg/dL [facility] 04/11/2025 4:52 PM EDT 04/11/2025 4:56 PM EDT Narrative CLINISYNC - 04/11/2025 5:52 PM EDT us Alfredo Mendoza DO CLINISYNC Final Result Performing Organization Address [facility] de Phone Number [facility] * ALL LDH (04/11/2025 4:52 PM EDT) LACTATE DEHYDROGENASE 153 81 - 234 U/L [facility] 04/11/2025 4:52 PM EDT 04/11/2025 4:56 PM EDT Narrative CLINISYNC - 04/11/2025 5:52 PM EDT Alfredo Mendoza DO CLINISYNC Final Result Performing Organization Address [facility] Co de Phone Number [facility] * Pap Smear (01/20/2025 12:00 AM EDT) Swab Cervical swab / Unknown Mendoza Nurse [facility] Ob LAB CYTOLOGY ORDERABLES Final Result Performing Organization Address [facility]/ZIP Co de Phone Number EXTERNAL LAB from Last 3 Months or Most Recently Relevant to Health Maintenance Additional Health Concerns Active Problems Noted Date Diagnosed Date OB Reminders 11/26/2024 Insurance [facility]
--- OUTSIDE RECORDS SUMMARY | 2025-05-27 17:03 | XMS_ITS | Encounter Summary ---
Author Organization [facility] Address [address] [place] [address] Care Team Providers Care Court Operations Clerk Name Role Phone Unavailable Primary Care Provider Unavailabl e Encounter Details Date Type Department Care Team (Late st Contact Info) Description 01/10/2025 Abstract [facility] [address] [place] [address] [place] [address] Cain Donaldson DO [address] [place] [address] Christo Prieto, [facility] Social History Tobacco Use Types Packs/Day [...] 8:30 AM EDT Routine [facility]bie [facility] [address] [facility] [place] [address] Cain Donaldson DO [facility] Inocencia Prieto, [facility] 06/06/2025 8:40 AM EDT Routine [facility] [place] [address] Christy Schwartz PA [address] [facility] [place] [address] 06/13/2025 8:30 AM EDT Routine [facility] [address] [facility] [place] [phone] Christy Schwartz PA [address] [place], [place] [id number] documented as of this encounter Goals Goal Patient Goal Type Associated Problems Recent Progress Patient-Stated? Author Reminders Care Plan OB Reminders No Open Scheduling, Background documented as of this encounter Visit Diagnoses Not on filedocumented in this encounter Additional Health Concerns Active Problems Noted Date Diagnosed Date OB Reminders 11/26/2024 documented as of this encounter
[2025-05-27 17:07] VITALS: BP 130/73; PULSE 75
== END 2025-05-27 17:38 | disposition home or self-care (01) ==
LOC: FBCO 17:00 → FBC 17:04
PROVIDERS: PCP Obstetrics & Gynecology; Visit Provider Obstetrics & Gynecology
DX: O24.419 Gestational diabetes mellitus in pregnancy, unspecified control (principal); Z3A.36 36 weeks gestation of pregnancy
CPT/HCPCS: 59025

== ENCOUNTER 2025-06-07 17:00 | Outpatient (OUT) | payer BC, SELFPAY ==
--- NOTE | 2025-06-07 17:04 | US_ITS ---
[address] [address] Patient Name: FANNIE WHITE MRN: [facility]:[id number] date: 1995 Sex: F Assigned Patient Location: [facility] Current Patient Location: Accession/Order Number: [id number] Exam Date: 06/08/2025 09:04 Report Date: 06/08/2025 09:04 At the request of: GEORGE HALE Procedure: US OB BPP w non-stress Biophysical profile. Reason for exam: Gestational diabetes. COMPARISON: 05/24/2025 TECHNIQUE: Transabdominal imaging of the gravid uterus was obtained. FINDINGS: The automatic fabric cutter reports a BPP of 8 out of 8. ZITA is normal at 15.1 cm. heart rate 157 bpm. US/US OB BPP w non-stress IMPRESSION: BPP 8 out of 8. Impression dictated by: Mike Huerta Jr., D.O. 06/08/2025 9:04 AM Dictation Location: [place] [address] Electronically authenticated by: [id number] Y Date: 06/08/2025 09:04
[2025-06-07 18:02] VITALS: BP 132/63; PULSE 71
== END 2025-06-07 18:22 | disposition home or self-care (01) ==
LOC: US 17:00 → FBC 17:03
PROVIDERS: PCP Obstetrics & Gynecology; Visit Provider Nurse Practitioner Family
DX: O24.419 Gestational diabetes mellitus in pregnancy, unspecified control (principal)
CPT/HCPCS: 76818

== ENCOUNTER 2025-06-14 16:56 | Outpatient (OUT) | payer BC, SELFPAY ==
--- NOTE | 2025-06-14 17:01 | US_ITS ---
The [address] [address] Patient Name: FANNIE WHITE MRN: [id number] date: 1995 Sex: F Assigned Patient Location: US Current Patient Location: Accession/Order Number: [id number] Exam Date: 06/14/2025 23:22 Report Date: 06/14/2025 23:24 At the request of: GEORGE HALE Procedure: US OB BPP w non-stress Ultrasound biophysical profile HISTORY: Gestational diabetes Adequate breathing movement, gross body movement, tone and amniotic fluid volume for total score of 8 out of 8. The amniotic fluid index is 11.7 cm within normal limits. The heart rate 129 bpm. US/US OB BPP w non-stress IMPRESSION: Adequate ultrasound biophysical profile Impression dictated by: Zion Steen M.D. 06/14/2025 11:24 PM Dictation Location: [facility] Electronically authenticated by: [id number] Y Date: 06/14/2025 23:24
--- OUTSIDE RECORDS SUMMARY | 2025-06-14 17:24 | XMS_ITS | CCD ---
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 Name Role Phone Unavailable Primary Care Provider Unavailabl e NO FAMILY, PHYSICIAN Primary Care Provider Unava LINDSAY Duckworth Attending Provider Renita Fu Attending Unavailable Renita Fu Admitting Unavailable NO FAMILY, PHYSICIAN Primary Care Unavailable Unavailable Primary Care Provider Unavailabl e Unavailable Primary Care Provider Unavailabl e Unavailable Primary Care Provider Unavailabl e Unavailable Primary Care Provider Unavailabl e ZOLVASYL JOSE R Referring Unavailable ZOLTONTAYLORJOSE Nicholas Referring Unavailable MENDOZA, CAIN DAVE Referring Unavailable CHRISTY SCHWARTZ Referring Unavailable MENDOZA, CANI R Referring Unavailable KENZIE DOTSON Attending Unavailable MENDOZA, CAIN R Referring Unavailable LORIAPOLLO Attending Unavailable MENDOZA, CAIN R Referring Unavailable MENDOZA, CAIN R Referring Unavailable JAIDA CHADWICK Attending Unavailable MENDOZA, CAIN R Referring Unavailable LORIAPOLLO Attending Unavailable MENDOZA, CAIN R Referring Unavailable MENDOZA, CAIN R Referring Unavailable LORIAPOLLO Attending Unavailable MENDOZA, CAIN R Referring Unavailable LAVOY, DEVIKA Jalen Attending Unavailable MENDOZA, CAIN R Referring Unavailable LAVOY, DEVIKA Jalen Attending Unavailable MENDOZA, CAIN R Referring Unavailable MENDOZA, Cain R Primary Care Physician [phone] Aissatou Castillo Attending Unavailable MENDOZA, Cain R Referring Unavailable Aissatou Castillo Admitting Unavailable Aissatou Castillo Attending Unavailable MESSI MCKNIGHT Attending Unavail able MENDOZA, Cain R Referring Unavailable Aissatou Castillo Attending Unavailable HOLGER DONALDSONY Attending Unavailable CHRISTY SCHWARTZ Attending Unavailable MENDOZAHOLGERY Attending Unavailable EFREN CHRISTY Attending Unavailable MENDOZA, CAIN Attending Unavailable EFREN CHRISTY Attending Unavailable EFREN, CHRISTY Referring Unavailable CAIN DONALDSON Attending Unavailable EFREN, CHRISTY Attending Unavailable CAIN DONALDSON Attending Unavailable EFREN, CHRISTY Attending Unavailable EFREN, CHRISTY Attending Unavailable Medications Current Medications Medication Drug Class(es) [...] tablet 05/16/2025 05/23/2025 Active aspirin 81 mg delayed release oral tablet (20 sources) Platelet Aggregation Inhibitor, Nonsteroidal Anti-inflammatory Drug Start: 05-27-2025 take 1 tablet by mouth once daily aspirin 81 mg Oral EC Tab = 1 tab(s), Oral, Daily, Refills(s) 0 Start Date: 05/27/25 Status: Ordered Repeat number: 1 aspirin 81 mg ch ewable tablet Chew 1 tablet (81 mg total) and swallow in the morning. Active Blood Glucose Monitoring Sup pl (D-Care Glucometer) w/Device kit (20 sources) Start: 12-23-2024 End: 12-23-[address] (D-Care Glucometer) w/Device kit Indications: Elevated glucose tolerance test , resulting from in vitro fertilization, antepartum ([facility]) 1 kit Daily Use four times daily [...] 1 hour after each meal. Active cholecalciferol 0.05 mg oral tablet (20 sources) Vitamin D Start: 05-27-2025 take 1 tablet by mouth once daily cholecalciferol 2000 intl units oral tablet (Vitamin D3) 1,000 mg, Oral, Daily, Refills(s) 0 Start Date: 05/27/25 Status: Ordered Repeat number: 1 take 1 tablet by mouth in the mo rning cholecalciferol 1,000 units tablet Take 1 tablet (1,000 Units total) by mouth in the morning. Active 3 ml insulin glargine 100 unt/ml pen injector (20 sources) Insulin Analog Start: 06-07-2025 insulin glargi ne (LANTUS SOLOSTAR U-100 INSULIN) 100 unit/mL (3 mL) insulin pen Indications: Insulin controlled gestational diabetes mellitus (GDM) in second trimester , Prediabetes in mother during Inject 29 units subcutaneously in abdomen every evening 15 mL 3 06/07/2025 Active Start: 05-27-2025 Lantus Solosta r Pen 100 units/mL subcutaneous solution 25 unit(s), SubCutaneous, Once a day (at bedtime), Refills(s) 0 Start Date: 05/27/25 Status: Ordered Repeat number: 1 Start: 04-11-2025 End: 06-07-2025 insulin glargine (LANTUS CHUY OSTAR U-100 INSULIN) 100 unit/mL (3 mL) insulin pen Indications: Insulin controlled gestational diabetes mellitus (GDM) in second trimester , Prediabetes in mother during Inject 25 units subcutaneously in abdomen every evening 15 mL 3 04/11/2025 06/07/2025 Discontinued Start: 03-30-2025 End: 04-11-2025 insulin glargine (LANTUS [...] glargine (Lantus SoloStar) 100 UNIT/ML pen Inject 29 Units under the skin at bedtime Active insulin glargine (Lantus SoloStar) 100 UNIT/ML [...] , resulting from in vitro fertilization, antepartum ([facility]) Apply 1 Pad topically Daily Use four [...] (Glucophage) 250 MG split tablet 12/23/2024 Discontinued multivitamin, (1 source) Start: 05-27-2025 take 2 tablets by mouth once daily multivitamin, 2 tab(s), Oral, Daily, Refill(s) 0 Start Date: 05/27/25 Status: Ordered Repeat number: 1 ofloxacin 3 mg/ml otic solution (6 sources) Quinolone Antimicrobial Start: 05-30-2025 End: 06-09-2025 ofloxacin (Floxin) 0.3 % otic solution Indications: Right otitis media, unspecified otitis media type Administer 5 drops into the right ear Daily for 10 days 10 mL 05/30/2025 06/09/2025 Active PNV no.153/FA/om3/dha/e pa/fish ( GUMMIES ORAL) (20 sources) take 2 tablets by mouth in the morning PNV no.153/FA/om3/dha/ epa/fish ( GUMMIES ORAL) Take 2 tablets by [...] Problem Classification Problem Date Documented Date Episodic/Chronic Calculus of urinary tract (3 sources) Kidney stone; Translations: [Calculus of kidney] Onset: 05-27-2025 Episodic Coagulation and hemorrhagic disorders (12 sources) Heterozygous Factor V Leiden mutation; Translations: [...] second trimester] 02-08-2025 Episodic Other complications of (2 sources) size does not accord with dates; Translations: [Uterine size-date discrepancy, unspecified trimester] 05-03-2025 Episodic Other complications of (2 sources) Excessive growth affecting management of mother; Translations: [Maternal care for excessive growth, third trimester, not applicable or unspecified] 06-13-2025 Episodic Other female genital disorders (2 sources) [...] unspecified, unspecified trimester] Onset: 10-20-2024 11-25-2024 Episodic Otitis media and related conditions (4 sources) Acute non-suppurative otitis media - serous; [...] of ] 03-30-2025 Episodic Residual codes; unclassified (8 sources) Conceived by in vitro fertilization; Translations: [Other specified health status] 03-30-2025 Episodic Residual codes; unclassified (2 sources) Gestation period, 30 weeks; Translations: [30 weeks gestation of ] 04-18-2025 Episodic Residual codes; unclassified (2 sources) Gestation period, 32 weeks; Translations: [32 weeks gestation of ] 05-03-2025 Episodic Residual codes; unclassified (2 sources) Gestation period, 34 weeks; Translations: [34 weeks gestation of ] 05-16-2025 Episodic Residual codes; unclassified (4 sources) Gestation period, 36 weeks; Translations: [36 weeks gestation of ] 05-26-2025 Episodic Residual codes; unclassified (2 sources) Gestation period, 37 weeks; Translations: [37 weeks gestation of ] 06-06-2025 Episodic Residual codes; unclassified (2 sources) Gestation period, 38 weeks; Translations: [38 weeks gestation of ] 06-13-2025 Episodic Superficial injury; contusion (1 source) Contusion [...] sources) Mood disorders Onset: 07-03-2016 07-03-2016 Other complications of (1 source) Other diseases of the blood and blood-forming organs and certain disorders involving the immune mechanism complicating , second trimester; Translations: [Other diseases of the blood and blood-forming organs and certain disorders involving the immune mechanism complicating , second trimester] Onset: 02-08-2025 Episodic Other screening for suspected conditions (not mental disorders or infectious disease) (4 sources) Encounter for test, result unknown; Translations: [Encounter for other screening follow-up] Onset: 10-18-2024 Episodic Other upper respiratory infections (20 sources) Viral upper respiratory tract infection; Translations: [Acute upper respiratory infection, unspecified] Onset: 09-25-2016 09-25-2016 Episodic Residual codes; unclassified (1 source) 20 weeks gestation of ; Translations: [20 weeks gestation of ] Onset: 02-08-2025 Episodic Unclassified (2 sources) Prediabetes in mother during 03-30-2025 Results Test Name Value Interpretation Reference Range Facil ity Urinalysis macro (dipstick) panel (U)on 06-13-2025 Bilirubin, UA Negative Negative - 4(70) +++ mg/dL [facility] Blood, UA Negative Negative - 50 Warren/mcL [facility] Clarity, UA Cloudy [facility] Color, UA Renita [facility] Glucose, UA Negative Negative - 1999(110) ++++ mg/dL [facility] Interpretation and review of laboratory results Abnormal [facility] Ketones, UA Negative Negative - 160(16) ++++ mg/dL [facility] Leukocytes, UA Positive Negative - 500+++ Malick/mcL [facility] Comment on above: 3+ Nitrite, UA Negative Negative - Positive [facility] pH, UA 6.5 5 - 9 [facility] Protein, UA Positive Negative - 1999(20) ++++ mg/dL [facility] Spec Grav, UA 1.015 1 - 1.03 [facility] Urobilinogen, UA 1.0 0.2 - 12 mg/dL [facility] US OB BPP W NON-STRESS on 06-08-2025 [place] [address] Ultrasound Report Signed Patient: FANNIE CONLEY MR#: [id number] : 1995 Acct:[id number] Age/Sex: 29 / F ADM Date: 06/07/25 Loc: US Attending Dr: George Scherer Ordering Physician: George Scherer Date of Service: 06/07/25 Procedure(s): US OB BPP w non-stress Accession Number(s): [id number] cc: George Scherer; Cain Donaldson D.O. [address] [address] Patient Name: FANNIE CONLEY MRN: [id number] date: 1995 Sex: F Assigned Patient Location: [facility] Current Patient Location: Accession/Order Number: [id number] Exam Date: 06/08/2025 09:04 Report Date: 06/08/2025 09:04 At the request of: GEORGE SCHERER Procedure: US OB BPP w non-stress Biophysical profile. Reason for exam: Gestational diabetes. COMPARISON: 05/24/2025 TECHNIQUE: Transabdominal imaging of the gravid uterus was obtained. FINDINGS: The sales vice president reports a BPP of 8 out of 8. ZITA is normal at 15.1 cm. heart rate 157 bpm. US/US OB BPP w non-stress IMPRESSION: BPP 8 out of 8. Impression dictated by: Mike Huerta Jr., D.O. 06/08/2025 9:04 AM Dictation Location: [place] [address] Electronically authenticated by: [id number] Y Date: 06/08/2025 09:04 Dictated By: Mike Huerta M.D. Signed By: 06/08/25906 DD/ 3 TD/TT: Catalyst Recovery Operator: [facility] Radiology, Radiologist, MD - 06/08/2025 [place] [address] Ultrasound Report Signed Patient: FANNIE CONLEY MR#: [id number] : 1995 Acct:[id number] Age/Sex: 29 / F ADM Date: 06/07/25 Loc: US Attending Dr: George Scherer Ordering Physician: George Scherer Date of Service: 06/07/25 Procedure(s): US OB BPP w non-stress Accession Number(s): [id number] cc: George Scherer; Cain Donaldson D.O. The [address] [address] Patient Name: FANNIE CONLEY MRN: [facility]:[id number] date: 1995 Sex: F Assigned Patient Location: [facility] Current Patient Location: Accession/Order Number: [id number] Exam Date: 06/08/2025 09:04 Report Date: 06/08/2025 09:04 At the request of: GEORGE SCHERER Procedure: US OB BPP w non-stress Biophysical profile. Reason for exam: Gestational diabetes. COMPARISON: 05/24/2025 TECHNIQUE: Transabdominal imaging of the gravid uterus was obtained. FINDINGS: The sales vice president reports a BPP of 8 out of 8. ZITA is normal at 15.1 cm. heart rate 157 bpm. US/US OB BPP w non-stress IMPRESSION: BPP 8 out of 8. Impression dictated by: Mike Huerta Jr., D.O. 06/08/2025 9:04 AM Dictation Location: [place] [address] Electronically authenticated by: [id number] Y Date: 06/08/2025 09:04 Dictated By: Mike Huerta M.D. Signed By: 06/08/25906 DD/ 3 TD/TT: Catalyst Recovery Operator: [facility] Radiology Study observation (narrative) [facility] US OB BPP W NON-STRESS Ordered By: Radiologist Radiology on 06-08-2025 [facility] Work Phone: Urinalysis macro (dipstick) panel (U)on 05-30-2025 Bilirubin, UA Negative Negative - 4(70) +++ [...] ++++ mg/dL [facility] Leukocytes, UA Moderate Negative - 500+++ Malick/mcL [facility] Nitrite, UA Negative Negative - Positive [facility] pH, UA 6.5 5 - 9 [facility] Protein, UA Negative Negative - 2000(20) ++++ mg/dL [facility] Spec Grav, UA 1.015 1 - 1.03 [facility] Urobilinogen, UA 0.2 0.2 - 12 mg/dL [facility] C Urineon 05-29-2025 Bacteria identified Cx Nom (U) Microbiology PROCEDURE: Urine Culture [R1] SOURCE: U Random BODY SITE: COLLECTED DATE/TIME: 05/27/2025 10:11 EDT RECEIVED DATE/TIME: 05/27/2025 17:02 EDT START DATE/TIME: 05/27/2025 17:02 EDT FREE TEXT SOURCE: Jonathan GORE, Aissatou Castillo MD, Aissatou Nguyen FINAL REPORTS Final Report [] Verified Date/Time: 05/29/2025 07:20 EDT 800 cfu/ml Mixed skin contaminants Performing Locations R1: This test was performed at: [facility], [address] [place] [address], [address] , , [facility] Comment on above: Performed By: #### [id number] #### [facility] [address] [place] [address] Ambulatory Visit Summaryon 0 05-27-2025 Ambulatory Visit Summary Ambulatory Visit Summary FANNIE CONLEY :1995 Visit Date:05/27/2025 Ambulatory Visit Instructions Your Diagnosis Kidney stones Tests Performed CT Abdomen/Pelvis w/o Contrast -- Results Pending -- Please visit your patient portal for your results or contact your primary care physician. Your Care Team Attending Physician - Aissatou Castillo MD Primary Care Physician - Cain DONALDSON DO Referring Physician - Cain DONALDSON DO This Is Your Medications List Contact prescribing physician if questions or concerns aspirin (aspirin 81 mg Oral EC Tab) cholecalciferol (cholecalciferol 2000 intl units oral tablet (Vitamin D3)) insulin glargine (Lantus Solostar Pen 100 units/mL subcutaneous solution) multivitamin, Discharge Vitals Heart Rate (Peripheral) 81 Blood Pressure 133/88 Height 158 cm Height 62 in Weight 106.9 kg Weight 235.674 lb BMI 42.82 What to do next Scheduled Follow-Up Appointments Friday2025 9:00 AM EST With: Aissatou Castillo MD Where: [facility] [place] [address] [place] [address]- You Need to Schedule the Following Appointments Follow Up with Jonathan GORE, ONEIDA Navarro, URO When: Where: Medications What How Much When Instructions Unchanged aspirin (aspirin 81 mg Oral EC Tab) 1 Tablets By Mouth Every day Contact prescribing physician if questions or concerns Unchanged cholecalciferol (cholecalciferol 2000 intl units oral tablet (Vitamin D3)) 1,000 Milligram By Mouth Every day Contact prescribing physician if questions or concerns Unchanged insulin glargine (Lantus Solostar Pen 100 units/ mL subcutaneous solution) 25 Units Subcutaneous Once a day (at bedtime) Contact prescribing physician if questions or concerns Unchanged multivitamin, 2 Tablets By Mouth Every day Contact prescribing physician if questions or concerns Allergies No Known Allergies Problems Ongoing - Any problem that you are currently receiving treatment for. Factor 5 Leiden mutation, heterozygous Gestational diabetes mellitus Kidney stone Kidney stones Morbid obesity with BMI of 40.0-44.9, adult Patient Survey You may receive a survey via text or e-mail asking about your office visit. Please share your experience with us by completing your survey. We appreciate your feedback and thank you for choosing us for your care. Education Materials Dietary Guidelines to Help Prevent Kidney Stones Kidney stones are deposits of minerals and salts that form inside your kidneys. Your risk of developing kidney stones may be greater depending on your diet, your lifestyle, the medicines you take, and whether you have certain medical conditions. Most people can lower their risks of developing kidney stones by following these dietary guidelines. Your dietitian may give you more specific instructions depending on your overall health and the type of kidney stones you tend to develop. What are tips for following this plan? Reading food labels ??? Choose foods with no salt added or low-salt labels. Limit your salt (sodium) intake to less than 1,500 mg a day. ??? Choose foods with calcium for each meal and snack. Try to eat about 300 mg of calcium at each meal. Foods that contain 200???500 mg of calcium a serving include: ? 8 oz (237 mL) of milk, calcium-fortifiednon- dairy milk, and calcium-fortifiedfrui t juice. Calcium-fortified means that calcium has been added to these drinks. ? 8 oz (237 mL) of kefir, yogurt, and soy yogurt. ? 4 oz (114 g) of tofu. ? 1 oz (28 g) of cheese. ? 1 cup (150 g) of dried figs. ? 1 cup (91 g) of cooked broccoli. ? One 3 oz (85 g) can of sardines or mackerel. Most people need 1,000???1,500 mg of calcium a day. Talk to your dietitian about how much calcium is recommended for you. Shopping ??? Buy plenty of fresh fruits and vegetables. Most people do not need to avoid fruits and vegetables, even if these foods contain nutrients that may contribute to kidney stones. ??? When shopping for convenience foods, choose: ? Whole pieces of fruit. ? Pre-made salads with dressing on the side. ? Low-fat fruit and yogurt smoothies. ??? Avoid buying frozen meals or prepared deli foods. These can be high in sodium. ??? Look for foods with live cultures, such as yogurt and kefir. ??? Choose high-fiber grains, such as whole-wheat breads, oat bran, and wheat cereals. Cooking ??? Do not add salt to food when cooking. Place a salt shaker on the table and allow each person to add their own salt to taste. ??? Use vegetable protein, such as beans, textured vegetable protein (TVP), or tofu, instead of meat in pasta, casseroles, and soups. Meal planning ??? Eat less salt, if told by your dietitian. To do this: ? Avoid eating processed or pre-made food. ? Avoid eating fast food. ??? E (more content not included)... Normal [facility] Reminderson 05-27-2025 Reminders Reminders From: Jacqueline Rascon To: MICHAEL Castillo; Sent: 05/27/2025 10:10:01 EDT Show up: 10/27/2025 09:09:00 EST Subject: [address] Due Date/Time: 11/27/2025 09:09:00 EST Reminder Message Please Remember to: Please call pt to [place] [address] [place] [facility] Order in 05/27/25 encounter. Thanks! Normal [facility] Urology Office/Clinic Noteon 05-27-2025 Urology Office/Clinic Note Urology Office/Clinic Note Chief Complaint new patient HPI Staff 29 year old female presents for new pt referral for kidney stones, R pelviectasis, [address] Donaldson. Patient denies any dysuria or gross hematuria. Denies any flank or abdomen pain. no symptoms History of Present Illness Tests reviewed: UA, external referral records including [facility] I have reviewed the previous health record information and history for this patient from external provider. I have reviewed and verified the staff HPI to be accurate for this encounter. Review of Systems PHQ Score Initial Depression Screen Score: 0 SCORE ROS - Provider Constitutional: denies weight loss, denies hot flashes. Eyes: denies eye problems. Gastrointestinal: denies nausea, denies vomiting. Cardiovascular: denies chest pain or angina. Integumentary: no dryness Musculoskeletal: denies musculoskeletal symptoms. ENMT: denies otolaryngeal symptoms. Respiratory: no shortness of breath. Heme/Lymph: denies easy bleeding tendency, denies easy bruising tendency. Psychiatric: no confusion, no anxiety. Genitourinary: See HPI. Physical Exam Vitals & Measurements HR: 81(Peripheral) BP: 133/88 HT: 62 in HT: 158 cm WT: 235.674 lb WT: 106.9 kg BMI: 42.82 General Appearance: alert, no distress, well nourished, well developed adult. Assessment/Plan Fannie is a 29 yo F new pt referred by Dr Donaldson for kidney stones and R pelviectasis at 36 weeks gestation. Pt does have gestational diabetes. 1. Kidney stones (N20.0: Calculus of kidney) [facility] 04/19/25 [facility] - An almost 1 cm focus RIP, stone is suspected. Also suspected stones on the L up to 6 mm. No L hydro however R pelviectasis. *ordered d/t R flank pain and microhematuria UA shows small leuks. Asx. Will send for ucx since and treat if positive. Reviewed imaging with pt. US tend to overestimate stone size so stones likely smaller than measured. May be possible to pass stones on the L but not on the R. R pelviectasis more common during d/t baby's location. Not too concerned about this since pt is not currently having pain. No prior hx of kidney stones. No fam hx of stones. No hx of other urinary issues/infections. Educated pt on dietary modifications and fluid intake for general stone prevention. Since pt is likely delivering soon, options include cysto, stent placement vs prior to delivery- risk of labor vs laser litho after delivery. Pt elects to cont to monitor. Recommend treating prior to next planned (IVF). Follow up [address] AP wo con or sooner if needed. Pt understands and agrees with plan. -Send urine for cx, treat if positive -Goal 90 oz fluid daily (add 1/4 cup lemon/[place] daily) -Diet mods (more fruits/veg, limit animal protein and salt) Follow-up With When Contact Information Jonathan GORE, Aissatou Nguyen, URL, URO Additional Instructions: [address] [place] Patient Education Dietary Guidelines to Help Prevent Kidney Stones IJacqueline, personally scribed for Dr. Castillo on 05/27/2025 10:08:43. . Documentation recorded by the scribe, Jacqueline Rascon, accurately reflects the services(s) I performed and decisions made by me. Authenticated by Dr. Castillo on 05/27/2025 10:29:05. Problem List/Past Medical History Ongoing Factor 5 Leiden mutation, heterozygous Gestational diabetes mellitus Kidney stone Kidney stones Morbid obesity with BMI of 40.0-44.9, adult Historical No qualifying data Medications aspirin 81 mg Oral EC Tab, 1 tab(s), Oral, Daily cholecalciferol 2000 intl units oral tablet (Vitamin D3), 1000 mg, Oral, Daily Lantus Solostar Pen 100 units/mL subcutaneous solution, 25 unit(s), SubCutaneous, Once a day (at bedtime) multivitamin, , 2 tab(s), Oral, Daily Allergies No Known Allergies Social History Alcohol Past. Beer. 1-2 times per month., 05/24/2025 Substance Abuse Never., 05/24/2025 Tobacco Former smoker, quit more than 30 days ago Tobacco Use:., 05/27/2025 Lab Results Ambulatory Point of Care Results Bilirubin Urine Dipstick: Negative (05/27/25 09:35:00) Blood Urine Dipstick: Negative (05/27/25 09:35:00) Glucose Urine Dipstick: Negative (05/27/25 09:35:00) Ketones Urine Dipstick: Negative (05/27/25 09:35:00) Leukocytes Urine Dipstick: 1+ Small (05/27/25 09:35:00) Nitrite Urine Dipstick: Negative (05/27/25 09:35:00) Protein Urine Dipstick: Negative (05/27/25 09:35:00) Specific [place] Urine Dipstick: 1.020 (05/27/25 09:35:00) Urine Appearance Urine Dipstick: Clear (05/27/25 09:35:00) Urine Color Urine Dipstick: Yellow (05/27/25 09:35:00) Urobilinogen Urine Dipstick: Normal 0.2-1 EU/dl (05/27/25 09:35:00) pH Urine Dipstick: 7 (05/27/25 09:35:00) Normal [facility] Comment on above: Result Comment: Elec tronically Signed By: Jonathan GORE, Aissatou Nguyen\.br\Date and Time Signed: 05/27/25 10:29 EDT\.br\Electronically Co-Signed By: Jacqueline Rascon\.br\Date and Time Co-Signed: 05/27/25 10:09 EDT Urinalysis macro (dipstick) panel (U)on 05-26-2025 Bilirubin, UA Negative Negative - 4(70) +++ mg/dL [facility] Blood, UA Positive Negative - 50 Warren/mcL [facility] Comment on above: Small Clarity, UA Clear [facility] Color, [...] - Positive [facility] pH, UA 6.5 5 - 9 [facility] Protein, UA Negative Negative - 1999(20) ++++ mg/dL [facility] Spec Grav, UA 1.01 1 - 1.03 [facility] Urobilinogen, UA 0.2 0.2 - 12 mg/dL [facility] US OB BPP W NON-STRESS on 05-24-2025 [place] [id number] Ultrasound Report Signed Patient: FANNIE CONLEY MR#: [id number] : 1995 Acct:[id number] Age/Sex: 29 / F ADM Date: 05/24/25 Loc: US Attending Dr: George Scherer Ordering Physician: George Scherer Date of Service: 05/24/25 Procedure(s): US OB BPP w non-stress Accession Number(s): [id number] cc: George Scherer; Cain Donaldson D.O. [place] [id number] Patient Name: FANNIE CONLEY MRN: [facility]:[id number] date: 1995 Sex: F Assigned Patient Location: [facility] Current Patient Location: Accession/Order Number: [id number] Exam Date: 05/24/2025 21:54 Report Date: 05/24/2025 [...] Steen M.D. 05/24/2025 9:55 PM Dictation Location: [place] [address] Electronically authenticated by: [id number] Y Date: 05/24/2025 21:55 Dictated By: Zion Steen D.O. Signed By: 05/24/252156 DD/ 54 TD/TT: Catalyst Recovery Operator: [facility] Radiology, Radiologist, - 05/24/2025 [place] [address] Ultrasound Report Signed Patient: FANNIE CONLEY MR#: [id number] : 1995 Acct:[id number] Age/Sex: 29 / F ADM Date: 05/24/25 Loc: US Attending Dr: George Scherer Ordering Physician: George Scherer Date of Service: 05/24/25 Procedure(s): US OB BPP w non-stress Accession Number(s): [id number] cc: George Scherer; Cain Donaldson D.O. The [place] [address] Patient Name: FANNIE CONLEY MRN: [facility]:[id number] date: 1995 Sex: F Assigned Patient Location: [facility] Current Patient Location: Accession/Order Number: [id number] Exam Date: 05/24/2025 21:54 Report Date: 05/24/2025 [...] Steen M.D. 05/24/2025 9:55 PM Dictation Location: [place] [address] Electronically authenticated by: [id number] Y Date: 05/24/2025 21:55 Dictated By: Zion Steen D.O. Signed By: 05/24/252156 DD/ 54 TD/TT: Catalyst Recovery Operator: [facility] Radiology Study observation (narrative) [facility] US OB BPP W NON-STRESS Ordered By: Radiologist Radiology on 05-24-2025 [facility] Work Phone: US OB BPP W NON-STRESS on 05-17-2025 [place] [address] Ultrasound Report Signed Patient: FANNIE CONLEY MR#: [id number] : 1995 Acct:[id number] Age/Sex: 29 / F ADM Date: 05/16/25 Loc: US Attending Dr: George Scherer Ordering Physician: George Scherer Date of Service: 05/16/25 Procedure(s): US OB BPP w non-stress Accession Number(s): [id number] cc: George Scherer; Cain Donaldson D.O. [place] [id number] Patient Name: FANNIE CONLEY MRN: [facility]:[id number] date: 1995 Sex: F Assigned Patient Location: US Current Patient Location: Accession/Order Number: [id number] Exam Date: 05/17/2025 08:06 Report Date: 05/17/2025 [...] Munson M.D. 05/17/2025 8:07 AM Dictation Location: [place] [address] Electronically authenticated by: [id number] Y Date: 05/17/2025 08:07 Dictated By: Justina Munson M.D. Signed By: 05/17/25808 DD/ 6 TD/TT: Catalyst Recovery Operator: [facility] Radiology, Radiologist, - 05/17/2025 [place] [address] Ultrasound Report Signed Patient: FANNIE CONLEY MR#: [id number] : 1995 Acct:[id number] Age/Sex: 29 / F ADM Date: 05/16/25 Loc: US Attending Dr: George Scherer Ordering Physician: George Scherer Date of Service: 05/16/25 Procedure(s): US OB BPP w non-stress Accession Number(s): [id number] cc: George Scherer; Cain Donaldson D.O. The [place] [address] Patient Name: FANNIE CONLEY MRN: [facility]:[id number] date: 1995 Sex: F Assigned Patient Location: US Current Patient Location: Accession/Order Number: [id number] Exam Date: 05/17/2025 08:06 Report Date: 05/17/2025 [...] Munson M.D. 05/17/2025 8:07 AM Dictation Location: [place] [address] Electronically authenticated by: [id number] Y Date: 05/17/2025 08:07 Dictated By: Justina Munson M.D. Signed By: 05/17/25808 DD/ 6 TD/TT: Catalyst Recovery Operator: [facility] Radiology Study observation (narrative) [facility] US OB BPP W NON-STRESS Ordered By: Radiologist Radiology on 05-17-2025 [facility] Work Phone: Urinalysis macro (dipstick) panel (U)on 05-16-2025 Bilirubin, UA Negative Negative - 4(70) +++ mg/dL [facility] Blood, UA Positive Negative - 50 Warren/mcL [facility] Comment on above: trace-intact Clarity, UA Clear [facility] Color, UA Yellow [facility] Glucose, UA Negative Negative - 2000(110) ++++ mg/dL [facility] Interpretation and review of laboratory results Abnormal [facility] Ketones, UA Negative Negative - 160(16) ++++ mg/dL [facility] Leukocytes, UA Moderate Negative - 500+++ Malick/mcL [facility] Nitrite, UA Negative Negative - Positive [facility] pH, UA 7 5 - 9 [facility] Protein, UA Negative Negative - 2000(20) ++++ mg/dL [facility] Spec Grav, UA 1.02 1 - 1.03 [facility] Urobilinogen, UA 0.2 0.2 - 12 mg/dL [facility] US OB BPP W NON-STRESS on 05-10-[address] [address] Ultrasound Report Signed Patient: FANNIE CONLEY MR#: [id number] : 1995 Acct:[id number] Age/Sex: 29 / F ADM Date: 05/10/25 Loc: US Attending Dr: George Scherer Ordering Physician: George Scherer Date of Service: 05/10/25 Procedure(s): US OB BPP w non-stress Accession Number(s): [id number] cc: George Scherer; Cain Donaldson D.O. The [place] [id number] Patient Name: FANNIE CONLEY MRN: [facility]:[id number] date: 1995 Sex: F Assigned Patient Location: [facility] Current Patient Location: Accession/Order Number: [id number] Exam Date: 05/10/2025 18:22 Report Date: 05/10/2025 [...] Epperson M.D. 05/10/2025 6:23 PM Dictation Location: [place] [address] Electronically authenticated by: [id number] Y Date: 05/10/2025 18:23 Dictated By: Larry Epperson M.D. Signed By: 05/10/251825 DD/ 22 TD/TT: Catalyst Recovery Operator: [facility] Radiology, Radiologist, MD - 05/10/2025 The [place] [id number] Ultrasound Report Signed Patient: FANNIE CONLEY MR#: [id number] : 1995 Acct:[id number] Age/Sex: 29 / F ADM Date: 05/10/25 Loc: US Attending Dr: George Scherer Ordering Physician: George Scherer Date of Service: 05/10/25 Procedure(s): US OB BPP w non-stress Accession Number(s): [id number] cc: George Scherer; Cain Donaldson D.O. [place] [id number] Patient Name: FANNIE CONLEY MRN: [id number] date: 1995 Sex: F Assigned Patient Location: [facility] Current Patient Location: Accession/Order Number: [id number] Exam Date: 05/10/2025 18:22 Report Date: 05/10/2025 [...] Epperson M.D. 05/10/2025 6:23 PM Dictation Location: [place] [address] Electronically authenticated by: [id number] Y Date: 05/10/2025 18:23 Dictated By: Larry Epperson M.D. Signed By: 05/10/251825 DD/ 22 TD/TT: Catalyst Recovery Operator: [facility] Radiology Study observation (narrative) [facility] US OB BPP W NON-STRESS Ordered By: Radiologist Radiology on 05-10-2025 [facility] Work Phone: US OB FOLLOW UP TRANSABDOMIN AL APPROACHon 05-10-2025 [...] US OB BPP W NON-STRESS on 05-04-2025 [place] [address] Ultrasound Report Signed Patient: FANNIE CONLEY MR#: [id number] : 1995 Acct:[id number] Age/Sex: 29 / F ADM Date: 05/03/25 Loc: US Attending Dr: George Scherer Ordering Physician: George Scherer Date of Service: 05/03/25 Procedure(s): US OB BPP w non-stress Accession Number(s): [id number] cc: George Scherer; Cain Donaldson D.O. The [place] [id number] Patient Name: FANNIE CONLEY MRN: [id number]:[id number] date: 1995 Sex: F Assigned Patient Location: US Current Patient Location: Accession/Order Number: [id number] Exam Date: 05/04/2025 07:57 Report Date: 05/04/2025 [...] Munson M.D. 05/04/2025 7:58 AM Dictation Location: [place] [address] Electronically authenticated by: [id number] Y Date: 05/04/2025 07:58 Dictated By: Justina Munson M.D. Signed By: 05/04/25 0946 DD/ 0758 TD/TT: Catalyst Recovery Operator: [facility] Radiology, Radiologist, MD - 05/04/2025 [place] [address] Ultrasound Report Signed Patient: FANNIE CONLEY MR#: [id number] : 1995 Acct:[id number] Age/Sex: 29 / F ADM Date: 05/03/25 Loc: US Attending Dr: George Scherer Ordering Physician: George Scherer Date of Service: 05/03/25 Procedure(s): US OB BPP w non-stress Accession Number(s): [id number] cc: George Scherer; Cain Donaldson D.O. The [place] [id number] Patient Name: FANNIE CONLEY MRN: [facility]:[id number] date: 1995 Sex: F Assigned Patient Location: US Current Patient Location: Accession/Order Number: [id number] Exam Date: 05/04/2025 07:57 Report Date: 05/04/2025 [...] Munson M.D. 05/04/2025 7:58 AM Dictation Location: [place] [address] Electronically authenticated by: [id number] Y Date: 05/04/2025 07:58 Dictated By: Justina Munson M.D. Signed By: 05/04/25 0946 DD/ 0758 TD/TT: Catalyst Recovery Operator: [facility] Radiology Study observation (narrative) [facility] US OB BPP W NON-STRESS Ordered By: Radiologist Radiology on 05-04-2025 [facility] Work Phone: Urinalysis macro (dipstick) panel (U)on 05-03-2025 Bilirubin, UA Negative Negative - 4(70) +++ mg/dL [facility] Blood, UA Positive Negative - 50 Warren/mcL [facility] Comment on above: small Clarity, UA Clear [facility] Color, [...] Urobilinogen, UA 0.2 0.2 - 12 mg/dL [facility]ending [facility] to [facility] OB BPP W NON-STRESS on 04-27-2025 [place] [address] Ultrasound Report Signed Patient: FANNIE CONLEY MR#: [id number] : 1995 Acct:[id number] Age/Sex: 29 / F ADM Date: 04/26/25 Loc: US Attending Dr: George Scherer Ordering Physician: George Scherer Date of Service: 04/26/25 Procedure(s): US OB BPP w non-stress Accession Number(s): [id number] cc: George Scherer; Cain Donaldson D.O. [place] [id number] Patient Name: FANNIE CONLEY MRN: [facility]:[id number] date: 1995 Sex: F Assigned Patient Location: [facility] Current Patient Location: Accession/Order Number: [id number] Exam Date: 04/27/2025 08:06 Report Date: 04/27/2025 [...] Munson M.D. 04/27/2025 8:07 AM Dictation Location: [place] [address] Electronically authenticated by: [id number] Y Date: 04/27/2025 08:07 Dictated By: Justina Munson M.D. Signed By: 04/27/25 0810 DD/ 08 TD/TT: Catalyst Recovery Operator: [facility] Radiology, Radiologist, - 04/27/2025 [place] [address] Ultrasound Report Signed Patient: FANNIE CONLEY MR#: [id number] : 1995 Acct:[id number] Age/Sex: 29 / F ADM Date: 04/26/25 Loc: US Attending Dr: George Scherer Ordering Physician: George Scherer Date of Service: 04/26/25 Procedure(s): US OB BPP w non-stress Accession Number(s): [id number] cc: George Scherer; Cain Donaldson D.O. The [address] [address] Patient Name: FANNIE CONLEY MRN: [facility]:[id number] date: 1995 Sex: F Assigned Patient Location: [facility] Current Patient Location: Accession/Order Number: [id number] Exam Date: 04/27/2025 08:06 Report Date: 04/27/2025 [...] Munson M.D. 04/27/2025 8:07 AM Dictation Location: [place] [address] Electronically authenticated by: [id number] Y Date: 04/27/2025 08:07 Dictated By: Justina Munson M.D. Signed By: 04/27/25809 DD/ 6 TD/TT: Catalyst Recovery Operator: [facility] Radiology Study observation (narrative) [facility] US OB BPP W NON-STRESS Ordered By: Radiologist Radiology on 04-27-2025 [facility] [employer] Work Phone: US OB BPP W NON-STRESS on 04-19-2025 [place] [address] Ultrasound Report Signed Patient: FANNIE COLNEY MR#: [id number] : 1995 Acct:[id number] Age/Sex: 29 / F ADM Date: Loc: [facility] [address]: Cain Donaldson D.O. Ordering Physician: Cain Donaldson D.O. Date of Service: 04/19/25 Procedure(s): US OB BPP w non-stress Accession Number(s): [id number] cc: Cain Donaldson D.O. [place] [phone] Patient Name: FANNIE CONLEY MRN: [id number] date: 1995 Sex: F Assigned Patient Location: LAB Current Patient Location: Accession/Order Number: [id number] Exam Date: 04/19/2025 09:00 Report Date: 04/19/2025 [...] Munson M.D. 04/19/2025 9:04 AM Dictation Location: [place] [address] Electronically authenticated by: [id number] Y Date: 04/19/2025 09:04 Dictated By: Justina Munson M.D. Signed By: 04/19/25905 DD/ 3 TD/TT: Catalyst Recovery Operator: [facility] Radiology, Radiologist, - 04/19/2025 [place] [address] Ultrasound Report Signed Patient: FANNIE CONLEY MR#: [id number] : 1995 Acct:[id number] Age/Sex: 29 / F ADM Date: Loc: [facility] 254-[address]: Cain Donaldson D.O. Ordering Physician: Cain Donaldson D.O. Date of Service: 04/19/25 Procedure(s): US OB BPP w non-stress Accession Number(s): [id number] cc: Cain Donaldson D.O. [place] [id number] Patient Name: FANNIE CONLEY MRN: [facility]:[id number] date: 1995 Sex: F Assigned Patient Location: LAB Current Patient Location: Accession/Order Number: [id number] Exam Date: 04/19/2025 09:00 Report Date: 04/19/2025 [...] Munson M.D. 04/19/2025 9:04 AM Dictation Location: [place] [address] Electronically authenticated by: [id number] Y Date: 04/19/2025 09:04 Dictated By: Justina Munson M.D. Signed By: 04/19/25905 DD/ 3 TD/TT: Catalyst Recovery Operator: [facility] Radiology Study observation (narrative) [facility] US OB BPP W NON-STRESS Ordered By: Radiologist Radiology on 04-19-2025 [facility] Work Phone: US RENAL BIon 04-19-2025 [place] [address] Ultrasound Report Signed Patient: FANNIE CONLEY MR#: [id number] : 1995 Acct:[id number] Age/Sex: 29 / F ADM Date: Loc: [facility] 254-[address]: Cain Donaldson D.O. Ordering Physician: Cain Donaldson D.O. Date of Service: 04/19/25 Procedure(s): US renal BI Accession Number(s): [id number] cc: Cain Donaldson D.O. [place] [id number] Patient Name: FANNIE CONLEY MRN: [facility]:[id number] date: 1995 Sex: F Assigned Patient Location: LAB Current Patient Location: Accession/Order Number: [id number] Exam Date: 04/19/2025 08:46 Report Date: 04/19/2025 [...] Munson M.D. 04/19/2025 8:49 AM Dictation Location: [place] [address] Electronically authenticated by: [id number] Y Date: 04/19/2025 08:49 Dictated By: Justina Munson M.D. Signed By: 04/19/25 0852 DD/ 0849 TD/TT: Catalyst Recovery Operator: [facility] Radiology, Radiologist, - 04/19/[address] [address] Ultrasound Report Signed Patient: FANNIE CONLEY MR#: [id number] : 1995 Acct:[id number] Age/Sex: 29 / F ADM Date: Loc: [facility] 254-[address]: Cain Donaldson D.O. Ordering Physician: Cain Donaldson D.O. Date of Service: 04/19/25 Procedure(s): US renal BI Accession Number(s): [id number] cc: Cain Donaldson D.O. The [place] [id number] Patient Name: FANNIE CONLEY MRN: [id number]:[id number] date: 1995 Sex: F Assigned Patient Location: LAB Current Patient Location: Accession/Order Number: [id number] Exam Date: 04/19/2025 08:46 Report Date: 04/19/2025 [...] Munson M.D. 04/19/2025 8:49 AM Dictation Location: [place] [address] Electronically authenticated by: [id number] Y Date: 04/19/2025 08:49 Dictated By: Justina Munson M.D. Signed By: 04/19/25 0852 DD/ 0849 TD/TT: Catalyst Recovery Operator: [facility] Radiology Study observation (narrative) [facility] US RENAL BIOrdered By: Radio logist Radiology on 04-19-2025 [facility] Work Phone: TB TOTAL PROTEIN 24 HOUR UR INEon 04-18-2025 Interpretation and review of laboratory results Abnormal [facility] Protein (U) [Mass/Vol] 9.5 mg/dL NINF - 11.9 mg/dL [facility] TOTAL PROTEIN 24 HOUR URINE 285 High NINF [facility] TOTAL VOLUME 24 HOUR URINE 3000 mL/24hr [facility] UA (CLEAN/CATCH) SPEECH COACH/BHAVIN RO IF IND.on 04-18-2025 BILIRUBIN URINE Negative [...] 0.2 EU/dL 0.2 - 1.0 EU/dL N [facility] CLINISYNC [facility] Urinalysis macro (dipstick) panel (U)on [...] Urobilinogen, UA 0.2 0.2 - 12 mg/dL [facility] ALL BUNon 04-11-2025 Urea nitrogen [Mass/Vol] 11 [...] [facility] TBH EO # 0.1 [facility] PLT 193 [facility] RBC 3.64 Low [facility] WBC 7.3 [facility] ALL LDHon 04-11-2025 LDH [Catalytic activity/Vol] 153 U/L 81 - 234 U/L [facility] ALL URIC ACIDon 04-11-2025 Urate [Mass/Vol] 2.8 mg/dL 2.6 - 6.0 mg/dL [facility] 04-11-2025 AST [Catalytic activity/Vol] 11 U/L Low 15 - 37 U/L [facility] No Panel Informationon 04-11 Interpretation and review of laboratory results Abnormal [facility] CREATININEon 04-11-2025 Creatinine [Mass/Vol] 0.36 mg/dL Low 0.55 - 1.02 mg/dL [facility] GFR/1.73 sq M.predicted CKD-EPI (S/P/Bld) [Vol rate/Area] >60 >=60 mL/min/1.73m 2 [facility] EGFR-NON AF GEORGIAN >60 >=60 mL/min/1.73m 2 [facility] US OB BPP W NON-STRESS on 04-11-2025 [place] [address] Ultrasound Report Signed Patient: FANNIE CONLEY MR#: [id number] : 1995 Acct:[id number] Age/Sex: 29 / F ADM Date: 04/11/25 Loc: US Attending Dr: George Scherer Ordering Physician: Cain Donaldson D.O. Date of Service: 04/11/25 Procedure(s): US OB BPP w non-stress Accession Number(s): [id number] cc: Cain Donaldson D.O. [address] [address] Patient Name: FANNIE CONLEY MRN: [facility]:[id number] date: 1995 Sex: F Assigned Patient Location: [facility] Current Patient Location: Accession/Order Number: [id number] Exam Date: 04/11/2025 19:33 Report Date: 04/11/2025 19:34 At the request of: CAIN DOANLDSON DO Procedure: US OB BPP w non-stress [...] Steen M.D. 04/11/2025 7:34 PM Dictation Location: [place] Electronically authenticated by: [id number] Y Date: 04/11/2025 19:34 Dictated By: Zion Steen D.O. Signed By: 04/11/251935 DD/ 33 TD/TT: Catalyst Recovery Operator: [facility] Radiology, Radiologist, - 04/11/2025 [place] [address] Ultrasound Report Signed Patient: FANNIE CONLEY MR#: [id number] : 1995 Acct:[id number] Age/Sex: 29 / F ADM Date: 04/11/25 Loc: US Attending Dr: George Scherer Ordering Physician: Cain Donaldson D.O. Date of Service: 04/11/25 Procedure(s): US OB BPP w non-stress Accession Number(s): [id number] cc: Cain Donaldson D.O. The [place] [address] Patient Name: FANNIE CONLEY MRN: [facility]:[id number] date: 1995 Sex: F Assigned Patient Location: [facility] Current Patient Location: Accession/Order Number: [id number] Exam Date: 04/11/2025 19:33 Report Date: 04/11/2025 [...] Steen M.D. 04/11/2025 7:34 PM [facility]ictation [facility] Electron[facility] authenticated by: [id number] Y Date: 04/11/2025 19:34 Dictated By: Zion Steen D.O. Signed By: 04/11/251935 DD/ 33 TD/TT: Catalyst Recovery Operator: [facility] Radiology Study observation (narrative) [facility] US OB BPP W NON-STRESS Ordered By: Radiologist Radiology on 04-11-2025 [facility] Work Phone: US OB BPP W NON-STRESS on 04-05-2025 [place] [address] Ultrasound Report Signed Patient: FANNIE CONLEY MR#: [id number] : 1995 Acct:[id number] Age/Sex: 29 / F ADM Date: 04/05/25 Loc: [place] [address]: George Scherer Ordering Physician: Cain Donaldson D.O. Date of Service: 04/05/25 Procedure(s): US OB BPP w non-stress Accession Number(s): [id number] cc: Cain Donaldson D.O. [place] [address] Patient Name: FANNIE CONLEY MRN: [id number]:[id number] date: 1995 Sex: F Assigned Patient Location: [facility] Current Patient Location: [facility] Accession/Order Number: [id number] Exam Date: 04/05/2025 17:57 Report Date: 04/05/2025 [...] Steen M.D. 04/05/2025 5:58 PM Dictation Location: [place] [address] Electronically authenticated by: [id number] Y Date: 04/05/2025 17:58 Dictated By: Zion Steen D.O. Signed By: 04/05/25 180 DD/ 1758 TD/TT: Catalyst Recovery Operator: [facility] Radiology, Radiologist, - 04/05/2025 [place] [address] Ultrasound Report Signed Patient: FANNIE CONLEY MR#: [id number] : 1995 Acct:[id number] Age/Sex: 29 / F ADM Date: 04/05/25 Loc: [place] [address]- Attending Dr: George Scherer Ordering Physician: Cain Donaldson D.O. Date of Service: 04/05/25 Procedure(s): US OB BPP w non-stress Accession Number(s): [id number] cc: Cain Donaldson D.O. The [place] [address] Patient Name: FANNIE CONLEY MRN: [facility]:[id number] date: 1995 Sex: F Assigned Patient Location: [facility] Current Patient Location: [facility] Accession/Order Number: [id number] Exam Date: 04/05/2025 17:57 Report Date: 04/05/2025 [...] Steen M.D. 04/05/2025 5:58 PM Dictation Location: [place] [address] Electronically authenticated by: [id number] Y Date: 04/05/2025 17:58 Dictated By: Zion Steen D.O. Signed By: 04/05/25 1809 DD/ 57 TD/TT: Catalyst Recovery Operator: [facility] Radiology Study observation (narrative) [...] Urobilinogen, UA 0.2 0.2 - 12 mg/dL [facility] AFP, Maternalon 02-11-2025 Determined by Other Normal [facility] Comment on above: Performed By: #### A AFPM #### [facility] [address] [place] [address] Date Pitter: Kenneth Krishna MD Due Date SEE NOTE [facility] Comment on above: Result Comment: Resu lts for Estimated Due Date: 06 24 25 Performed By: #### A AFPM #### [facility] [address] [place] [address] Date Pitter: Kenneth Krishna MD Family History No [facility] Comment on above: Performed By: #### A AFPM #### [facility] [address], [place] [address] Date Pitter: Kenneth Krishna MD Gestat Age (exact) 20 wks, 4 days Normal [facility] Comment on above: Performed By: #### A AFPM #### [facility] [address] [place] [address] Date Pitter: Kenneth Krishna MD Ins Req Matern Diab [facility] Comment on above: Performed By: #### A AFPM #### [facility] [address] [place] [address] Date Pitter: Kenneth Krishna MD Interpretation Screen Neg [facility] Comment on above: Result Comment: (NOT E) INTERPRETATION: SCREEN NEGATIVE for open spina bifida Neural Tube Defects (NTD) Negative Pre-Test Post-Test Cutoff Neural Tube Defects Risks 1:1030 < 1:03629 1:250 Comments: The risk of an open neural tube defect is less than the screening cut-off. This test was developed and its performance characteristics determined by [employer]. It has not been cleared or approved by the [place] Food and Drug Administration. This test was performed in a CLIA certified laboratory and is intended for clinical purposes. Performed By: #### A AFPM #### [facility] [address] [place] [address] Date Pitter: Kenneth Krishna MD [age] [facility] Comment on above: Performed By: #### A AFPM #### [facility] [address] [place] [address] Date Pitter: Kenneth Krishna MD Maternal Race Nonblack [facility] Comment on above: Performed By: #### A AFPM #### [facility] [address] [place] [address] Date Pitter: Kenneth Krishna MD Maternal Weight 231.0 lbs. Normal [facility] Comment on above: Performed By: #### A AFPM #### [facility] [address] [place] [address] Date Pitter: Kenneth Krishna MD MoM for AFP 0.85 [facility] Comment on above: Performed By: #### A AFPM #### [facility] [address] [place] [address] Date Pitter: Kenneth Krishna MD Number of Fetuses [place] Normal [facility] Comment on above: Performed By: #### A AFPM #### [facility] [address] [place] [address] Date Pitter: Kenneth Krishna MD Patient's AFP 41 ng/mL [facility] Comment on above: Performed By: #### A AFPM #### [facility] [address] [place] [address] Date Pitter: Kenneth Krishna MD Smoking No [facility] Comment on above: Performed By: #### A AFPM #### [facility] [address] [place] [address] Date Pitter: Kenneth Krishna MD Specimen See Note [facility] Comment on above: Result Comment: (NOT E) Initial sample Performed By: [facility] [address] [place] [address] Film Writer: Jose Joseph MD, PhD CLIA Number: [id number] Performed By: #### A AFPM #### [facility] [address] [place] [address] Date Pitter: Kenneth Krishna MD Urinalysis macro (dipstick) panel (U)on 01-20-2025 Bilirubin, UA Negative Negative - 4(70) +++ mg/dL [facility] Blood, UA Negative Negative - 50 Warren/mcL [facility] Comment on above: trace Clarity, UA Clear [facility] Color, UA Ren[facility] Glucose, UA Negative Negative [facility] Protein, UA Trace Negative - 1999(20) ++++ mg/dL [facility] Spec Grav, UA 1.02 1 - 1.03 [facility] Urobilinogen, UA 1.0 0.2 - 12 mg/dL [facility] Cult,Urineon 12-24-2024 Cult,Urine Specimen Description .URINE Culture NO GROWTH Report Status FINAL 12/24/2024 Normal [facility] Comment on above: Performed By: #### U RC #### [address] [id number] Date Pitter: Jason Rodriguez MD [facility] [address] [place] [address] Date Pitter: Sherwin Elam MD HIV Ag/Abon 12-24-2024 HIV Ag/Ab Non-Reactive Normal [facility] Comment on above: Result Comment: No l aboratory evidence of HIV infection. If acute HIV infection is suspected, consider testing for HIV-1 RNA. Performed By: #### R UBI, HBS, TREP, AHCV, HIVCMB, GLYHGB #### [id number] [place], [place] [id number] Date Pitter: Jason Rodriguez MD #### CDP, SIDNEY #### [facility] [address] [place] [address] Date Pitter: Sherwin Elam MD Hemoglobin A1Con 12-24-2024 Glucose [Mass/Vol] 94 mg/dL [facility] Comment on above: Result Comment: The ADA and AACC recommend providing the estimated average glucose result to permit better patient understanding of their HBA1c result. Performed By: #### R UBI, HBS, TREP, AHCV, HIVCMB, GLYHGB #### [address] [id number] Date Pitter: Jason Rodriguez MD #### CDP, SIDNEY #### [facility] [address] [place], [place] [id number] Date Pitter: Sherwin Elam MD HbA1c (Bld) [Mass fraction] 4.9 % Normal 4.0-6.0 [facility] Comment on above: Performed By: #### R UBI, HBS, TREP, AHCV, HIVCMB, GLYHGB #### [address] [id number] Date Pitter: Jason Rodriguez MD #### CDP, SIDNEY #### [facility] [address] [place] [address] Date Pitter: Sherwin Elam MD Hep B Surf Agon 12-24-2024 Hep B Surf Ag Non-Reactive Normal NR [facility] Comment on above: Performed By: #### R UBI, HBS, TREP, AHCV, HIVCMB, GLYHGB #### [address] [id number] Date Pitter: Jason Rodriguez MD #### CDP, SIDNEY #### [facility] [address] [place] [address] Date Pitter: Sherwin Elam MD Hep C Abon 12-24-2024 Hep C Ab Non-Reactive Normal NR [facility] Comment on above: Result Comment: The [...] UBI, HBS, TREP, AHCV, HIVCMB, GLYHGB #### [address] [id number] Date Pitter: Jason Rodriguez MD #### SIDNEY ZENG #### [facility] [address] [place] [address] Date Pitter: Sherwin Elam MD Rubella Ab, IgGon 12-24-2024 Rubella Ab, IgG 78.0 IU/mL Normal [facility] Comment on above: Result Comment: <10 NON REACTIVE Negative for Anti-Rubella IgG >=10 REACTIVE Positive for Anti Rubella IgG The presence of IgG antibody to Rubella virus is an indication of previous exposure either by prior infection or vaccination. Performed By: #### R UBI, HBS, TREP, AHCV, HIVCMB, GLYHGB #### [address] [id number] Date Pitter: Jason Rodriguez MD #### SIDNEY ZENG #### [facility] [address] [place] [address] Date Pitter: Sherwin Elam MD T.pallidum Ab Screenon 12-24 T.pallidum Ab Screen Non-Reactive Normal [facility] Comment on above: Result Comment: T. pallidum antibodies are not detected. There is no serological evidence of infection with T. pallidum (early primary syphilis cannot be excluded). Retest in 2-4 weeks if syphilis is clinically suspect. Performed By: #### R UBI, HBS, TREP, AHCV, HIVCMB, GLYHGB #### [address] [id number] Date Pitter: Jason Rodriguez MD #### SIDNEY ZENG #### [facility] [address] [place] [address] Date Pitter: Sherwin Elam MD CBC with Auto Differentialon 12-23-2024 Basophils (Bld) [#/Vol] 0.02 10*3/uL [facility] Basophils/100 WBC (Bld) 0 % 0 - 2 % [facility] Eosinophils (Bld) [#/Vol] 0.13 10*3/uL [facility] Eosinophils/100 WBC (Bld) 2 % 0 - 5 % [facility] Erythrocyte distribution width (RBC) [Ratio] 12.5 % 12.1 - 15.2 % [facility] Hematocrit (Bld) [Volume fraction] 35.9 % Low 36.0 - 46.0 % [facility] Hemoglobin (Bld) [Mass/Vol] 12.5 g/dL 12.0 - 16.0 g/dL [facility] Immature granulocytes (Bld) [#/Vol] 0.02 10*3/uL [facility] Immature granulocytes/100 WBC (Bld) 0 % 0 - 5 % [facility] Interpretation and review of laboratory results Abnormal [facility] Lymphocytes/100 WBC (Bld) 21 % 15 - 40 % [facility] Lymphocytes/100 WBC (Bld) 1.55 % [facility] MCH (RBC) [Entitic mass] 29.6 pg 26.0 - 34.0 pg [facility] MCHC (RBC) [Mass/Vol] 34.8 g/dL 31.0 - 37.0 g/dL [facility] MCV (RBC) [Entitic vol] 84.9 fL 80.0 - 100.0 fL [facility] Monocytes/100 WBC (Bld) 9 % High 4 - 8 % [facility] Monocytes/100 WBC (Bld) 0.65 % [facility] Neutrophils/100 WBC (Bld) 68 % 47 - 75 % [facility] Platelet mean volume (Bld) [Entitic vol] 9.9 fL 6.0 - 12.0 fL [facility] Platelets (Bld) [#/Vol] 238 10*3/uL [facility] RBC (Bld) [#/Vol] 4.23 10*6/uL 4.00 - 5.2 0 m/uL [facility] Segmented neutrophils/100 WBC (Bld) 4.87 % [facility] WBC other (Bld) [#/Vol] 7.2 [facility] CBC with Diffon 12-23-2024 Abs. Basophil 0.02 k/uL Normal 0.00-0.20 [facility] Comment on above: Performed By: #### R UBI, HBS, TREP, AHCV, HIVCMB, GLYHGB #### [address] [address] Date Pitter: Jason Rodriguez MD #### SIDNEY ZENG #### [facility] [address] [id number] ( Date Pitter: Sherwin Elam MD Abs.Imm.Granulocyte 0.02 k/uL Normal 0.00-0.30 [facility] Comment on above: Performed By: #### R UBI, HBS, TREP, AHCV, HIVCMB, GLYHGB #### [place] [address] Date Pitter: Jason Rodriguez MD #### SIDNEY ZENG #### [facility] [address] [id number] Date Pitter: Sherwin Elam MD Abs.Neutrophil (Seg) 4.87 k/uL Normal 2.5-7.0 [facility] Comment on above: Performed By: #### R UBI, HBS, TREP, AHCV, HIVCMB, GLYHGB #### [place] [address] Date Pitter: Jason Rodriguez MD #### KARRI SIDNEY #### [facility] [address] [id number] Date Pitter: Sherwin Elam MD Basophils/100 WBC (Bld) 0 % Normal 0-2 [facility] Comment on above: Performed By: #### R UBI, HBS, TREP, AHCV, HIVCMB, GLYHGB #### [address] [id number] Date Pitter: Jason Rodriguez MD #### CDP, SIDNEY #### [facility] [address] [place] [address] Date Pitter: Sherwin Elam MD Eosinophils (Bld) [#/Vol] 0.13 10*3/uL Normal 0.00-0.40 [facility] Comment on above: Performed By: #### R UBI, HBS, TREP, AHCV, HIVCMB, GLYHGB #### [address] [id number] Date Pitter: Jason Rodriguez MD #### CDP, SIDNEY #### [facility] [address] [place] [address] Date Pitter: Sherwin Elam MD Eosinophils/100 WBC (Bld) 2 % Normal 0-5 [facility] Comment on above: Performed By: #### R UBI, HBS, TREP, AHCV, HIVCMB, GLYHGB #### [place] [address] Date Pitter: Jason Rodriguez MD #### CDP, SIDNEY #### [facility] [address] [place] [address] Date Pitter: Sherwin Elam MD Erythrocyte distribution width (RBC) [Ratio] 12.5 % Normal 12.1-15.2 [facility] Comment on above: Performed By: #### R UBI, HBS, TREP, AHCV, HIVCMB, GLYHGB #### [address] [id number] Date Pitter: Jason Rodriguez MD #### CDP, SIDNEY #### [facility] [address] [place] [id number] Date Pitter: Sherwin Elam MD Hematocrit (Bld) [Volume fraction] 35.9 % Low 36.0-46.0 [facility] Comment on above: Performed By: #### R UBI, HBS, TREP, AHCV, HIVCMB, GLYHGB #### [address] [id number] Date Pitter: Jason Rodriguez MD #### CDP, SIDNEY #### [facility] [address] [place] [id number] Date Pitter: Sherwin Elam MD Hemoglobin (Bld) [Mass/Vol] 12.5 g/dL Normal 12.0-16.0 [facility] Comment on above: Performed By: #### R UBI, HBS, TREP, AHCV, HIVCMB, GLYHGB #### [address] [id number] Date Pitter: Jason Rodriguez MD #### KARRI, SIDNEY #### [facility] [address] [place] [address] Date Pitter: Sherwin Elam MD Immature granulocytes/100 WBC (Bld) 0 % Normal 0-5 [facility] Comment on above: Performed By: #### R UBI, HBS, TREP, AHCV, HIVCMB, GLYHGB #### [address] [id number] Date Pitter: Jason Rodriguez MD #### KARRI, SIDNEY #### [facility] [address] [place] [id number] ( Date Pitter: Sherwin Elam MD Lymphocytes (Bld) [#/Vol] 1.55 10*3/uL Normal 1.00-4.80 [facility] Comment on above: Performed By: #### R UBI, HBS, TREP, AHCV, HIVCMB, GLYHGB #### [address] [id number] Date Pitter: Jason Rodriguez MD #### CDP, SIDNEY #### [facility] [address] [place] [address] Date Pitter: Sherwin Elam MD Lymphocytes/100 WBC (Bld) 21 % Normal 15-40 [facility] Comment on above: Performed By: #### R UBI, HBS, TREP, AHCV, HIVCMB, GLYHGB #### [address] [id number] Date Pitter: Jason Rodriguez MD #### CDP, SIDNEY #### [facility] [address] [place] [address] Date Pitter: Sherwin Elam MD MCH (RBC) [Entitic mass] 29.6 pg Normal 26.0-34.0 [facility] Comment on above: Performed By: #### R UBI, HBS, TREP, AHCV, HIVCMB, GLYHGB #### [address] [id number] Date Pitter: Jason Rodriguez MD #### KARRI, SIDNEY #### [facility] [address] [place] [address] Date Pitter: Sherwin Elam MD MCHC (RBC) [Mass/Vol] 34.8 g/dL Normal 31.0-37.0 [facility] Comment on above: Performed By: #### R UBI, HBS, TREP, AHCV, HIVCMB, GLYHGB #### [address] [id number] Date Pitter: Jason Rodriguez MD #### KARRI, SIDNEY #### [facility] [address] [place] [address] Date Pitter: Sherwin Elam MD MCV (RBC) [Entitic vol] 84.9 fL Normal 80.0-100.0 [facility] Comment on above: Performed By: #### R UBI, HBS, TREP, AHCV, HIVCMB, GLYHGB #### [address] [id number] Date Pitter: Jason Rodriguez MD #### CDP, SIDNEY #### [facility] [address] [place], [place] [id number] Date Pitter: Sherwin Elam MD Monocytes (Bld) [#/Vol] 0.65 10*3/uL Normal 0.00-1.00 [facility] Comment on above: Performed By: #### R UBI, HBS, TREP, AHCV, HIVCMB, GLYHGB #### [place] [address] Date Pitter: Jason Rodriguez MD #### CDP, SIDNEY #### [facility] [address] [id number] ( Date Pitter: Sherwin Elam MD Monocytes/100 WBC (Bld) 9 % High 4-8 [facility] Comment on above: Performed By: #### R UBI, HBS, TREP, AHCV, HIVCMB, GLYHGB #### [place] [address] Date Pitter: Jason Rodriguez MD #### CDP, SIDNEY #### [facility] [address] [place] [id number] Date Pitter: Sherwin Elam MD Neutrophil (Seg) 68 % Normal 47-75 [facility] Comment on above: Performed By: #### R UBI, HBS, TREP, AHCV, HIVCMB, GLYHGB #### [address] [id number] Date Pitter: Jason Rodriguez MD #### CDP, SIDNEY #### [facility] [address] [place] [address] Date Pitter: Sherwin Elam MD Platelet mean volume (Bld) [Entitic vol] 9.9 fL Normal 6.0-12.0 [facility] Comment on above: Performed By: #### R UBI, HBS, TREP, AHCV, HIVCMB, GLYHGB #### [address] [address] Date Pitter: Jason Rodriguez MD #### SIDNEY ZENG #### [facility] [address] [place], [place] [id number] Date Pitter: Sherwin Elam MD Platelets (Bld) [#/Vol] 238 10*3/uL Normal 140-450 [facility] Comment on above: Performed By: #### R UBI, HBS, TREP, AHCV, HIVCMB, GLYHGB #### [address] [address] Date Pitter: Jason Rodriguez MD #### SIDNEY ZENG #### [facility] [address] [place], [place] [id number] Date Pitter: Sherwin Elam MD RBC (Bld) [#/Vol] 4.23 10*6/uL Normal 4.00-5.20 [facility] Comment on above: Performed By: #### R UBI, HBS, TREP, AHCV, HIVCMB, GLYHGB #### [address] [address] Date Pitter: Jason Rodriguez MD #### KARRI, SIDNEY #### [facility] [address] [place], [place] 6980090 Date Pitter: Sherwin Elam MD WBC (Bld) [#/Vol] 7.2 10*3/uL Normal 3.5-11.0 [facility] Comment on above: Performed By: #### R UBI, HBS, TREP, AHCV, HIVCMB, GLYHGB #### [address] [id number] Date Pitter: Jason Rodriguez MD #### CDP, SIDNEY #### [facility] [address] [place], [place] [id number] Date Pitter: Sherwin Elam MD Drug Scr, Abuse, Uron 2024 Amphetamine(s),Ur Negative Normal NEG [facility] Comment on above: Result Comment: Cuto ff: 1000 ng/mL Performed By: #### R UBI, HBS, TREP, AHCV, HIVCMB, GLYHGB #### [address] [id number] Date Pitter: Jason Rodriguez MD #### CDP, SIDNEY #### [facility] [address] [place], [place] [id number] Date Pitter: Sherwin Elam MD Barbiturate(s),Ur Negative Normal NEG [facility] Comment on above: Result Comment: Cuto ff: 200 ng/ml Performed By: #### R UBI, HBS, TREP, AHCV, HIVCMB, GLYHGB #### [address] [id number] Date Pitter: Jason Rodriguez MD #### CDP, SIDNEY #### [facility] [address] [place], [place] [id number] Date Pitter: Sherwin Elam MD Benzodiazepine(s) Negative Normal NEG [facility] Comment on above: Result Comment: Cuto ff: 200 ng/ml Performed By: #### R UBI, HBS, TREP, AHCV, HIVCMB, GLYHGB #### [address] [id number] Date Pitter: Jason Rodriguez MD #### CDP, SIDNEY #### [facility] [address] [place], [place] [phone] Date Pitter: Sherwin Elam MD Cannabinoid(s),Ur Negative Normal NEG [facility] Comment on above: Result Comment: Cuto ff: 50 ng/ml Performed By: #### R UBI, HBS, TREP, AHCV, HIVCMB, GLYHGB #### [address] [address] Date Pitter: Jason Rodriguez MD #### CDP, SIDNEY #### [facility] [address] [place] [address] Date Pitter: Sherwin Elam MD Fentanyl, Urine Negative Normal NEG [facility] Comment on above: Result Comment: Cuto ff: 5 ng/ml Performed By: #### R UBI, HBS, TREP, AHCV, HIVCMB, GLYHGB #### [address] [address] Date Pitter: Jason Rodriguez MD #### CDP, SIDNEY #### [facility] [address] [place] [address] Date Pitter: Sherwin Elam MD Methadone Ql (U) Negative Normal NEG [facility] Comment on above: Result Comment: Cuto ff: 300 ng/ml Performed By: #### R UBI, HBS, TREP, AHCV, HIVCMB, GLYHGB #### [address] [address] Date Pitter: Jason Rodriguez MD #### CDP, SIDNEY #### [facility] [address] [place] [address] Date Pitter: Sherwin Elam MD Opiate(s), Ur Negative Normal NEG [facility] Comment on above: Result Comment: Cuto ff: 300 ng/ml Performed By: #### R UBI, HBS, TREP, AHCV, HIVCMB, GLYHGB #### [address] [address] Date Pitter: Jason Rodriguez MD #### CDP, SIDNEY #### [facility] [address] [place] [address] Date Pitter: Sherwin Elam MD Oxycodone, Urine Negative Normal NEG [facility] Comment on above: Result Comment: Cuto ff: 100 ng/ml Performed By: #### R UBI, HBS, TREP, AHCV, HIVCMB, GLYHGB #### [address] [address] Date Pitter: Jason Rodriguez MD #### CDP, SIDNEY #### [facility] [address] [place] [address] Date Pitter: Sherwin Elam MD Phencyclidine, Ur Negative Normal NEG [facility] Comment on above: Result Comment: Cuto ff: 25 ng/ml Performed By: #### R UBI, HBS, TREP, AHCV, HIVCMB, GLYHGB #### [address] [address] Date Pitter: Jason Rodriguez MD #### CDP, SIDNEY #### [facility] [address] [place] [address] Date Pitter: Sherwin Elam MD Interpretive Info This method is a screening test to detect only these drug classes as part of a Normal [facility] Comment on above: Result Comment: medi luis workup. Confirmatory testing by another method should be ordered if clinically indicated. Performed By: #### R UBI, HBS, TREP, AHCV, HIVCMB, GLYHGB #### [address] [place] [address] Date Pitter: Jason Rodriguez MD #### CDP, SIDNEY #### [facility] [address] [place] [address] Date Pitter: Sherwin Elam MD Drug Scr, Abuse, UrOrdered B y: Janay Vázquez on 12-23-2024 Cocaine Metabolite Negative Normal NEG [facility] Comment on above: Result Comment: Cuto ff: 300 ng/ml Performed By: #### R UBI, HBS, TREP, AHCV, HIVCMB, GLYHGB #### [facility] [employer] [address] [place] [address] Date Pitter: Jason Rodriguez MD #### CDP, SIDNEY #### [facility] [address] [place] [address] Date Pitter: Sherwin Elam MD Drug Screen, UrineOrdered By : Janay Vázquez on 12-23-2024 Amphetamine/Methamph etamine Negative [facility] Barbiturates Negative [facility] Benzodiazepines Negative [facility] Ecstasy Negative [facility] Methadone Negative [facility] Opiates Negative [facility] Oxycodone Negative [facility] Phencyclidine Negative [facility] Thc Marijuana, Urine Negative [facility] HIV 1&2 AB/AG Screen (P24 AG )on 12-23-2024 HIV 1&2 AB/AG Non-Reactive [facility] Hemoglobin A1con 12-23-2024 HbA1c (Bld) [Mass fraction] 4.9 % 4.0 - 6.0 % [facility] Hepatitis B surface antigeno n 12-23-2024 Hepatitis B Surface Antigen Non-Reactive [facility] Hepatitis C(HCV) Ab w/ Refle x to PCRon 12-23-2024 HCV Ab Ql (S) Non-Reactive [facility] MHPT CBC WITH DIFFon 025 Basophils/100 WBC (Bld) 0 % 0 - 2 % [facility] Eosinophils/100 WBC (Bld) 2 % [...] [facility].13 [facility] LYMPH 1.55 [facility]. MONOCYTE 0.65 [facility] ABS.IMM.GRANULOCYTE 0.02 [facility].NEUTROPHIL (SEG) 4.87 [facility] 238 [facility] MHPT [...] [facility], [facility]BUSE, URon 0 12-23-2024 PT AMPHETAMINE(S),UR Negative NEG [facility] Comment on above: Cutoff: 1000 ng/mL MHPT BARBITURATE(S),UR Negative NEG [facility] Comment on above: Cutoff: 200 ng/ml MHPT BENZODIAZEPINE(S) Negative NEG [facility] Comment on above: Cutoff: 200 ng/ml PT CANNABINOID(S),UR Negative NEG [facility] Comment on above: Cutoff: 50 ng/ml MHPT COCAINE METABOLITE Negative NEG [facility] Comment on above: Cutoff: 300 ng/ml MHPT FENTANYL, URINE Negative NEG [facility] Comment on above: Cutoff: 5 ng/ml MHPT INTERPRETIVE INFO This method is a screening test to detect only these drug classes as part of a [facility] Comment on above: medical workup. Conf irmatory testing by another method should be ordered if clinically indicated. MHPT METHADONE Negative NEG [facility] Comment on [...] Nom (Bld) Blood group B Rh(D) positive [facility] Blood group antibodies identified Nom Negative [facility] Type + Scrnon 12-23 Type + Scrn Negative Normal [facility] Comment on above: Performed By: #### R UBI, HBS, TREP, AHCV, HIVCMB, GLYHGB #### [facility] [employer] [address] [place] [address] Date Pitter: Jason Rodriguez MD #### CDP, SIDNEY #### [facility] [address] [place] [address] Date Pitter: Sherwin Elam MD Type and screenon 12-23-2024 Abo/Rh(D) Positive [facility] Urinalysis macro (dipstick) panel (U)on 12-23-2024 [...] 12-23-19 25 Amphetamines Ql (U) Negative NEGATIVE [facility] [facility] Comment on above: Cutoff: 1000 ng/mL Barbiturates Screen Ql (U) Negative NEGATIVE [facility] Comment on above: Cutoff: 200 ng/ml Benzodiazepines Ql (U) Negative NEGATIVE [facility] Comment on above: Cutoff: 200 ng/ml Cannabinoids Screen Ql (U) Negative NEGATIVE [facility] Comment on above: Cutoff: 50 ng/ml Cocaine Ql (U) Negative NEGATIVE [facility] Comment on above: Cutoff: 300 ng/ml fentaNYL Ql (U) Negative NEGATIVE [facility] Comment on above: Cutoff: 5 ng/ml Methadone Ql (U) Negative NEGATIVE [facility] Comment on above: Cutoff: 300 ng/ml Opiates Screen Ql (U) Negative NEGATIVE [facility] Comment on above: Cutoff: 300 ng/ml oxyCODONE Ql (U) Negative NEGATIVE [facility] Comment on above: Cutoff: 100 ng/ml Phencyclidine Ql (U) Negative NEGATIVE [facility] Comment on above: Cutoff: 25 ng/ml Test Information This method is a screening test to detect only these drug classes as part of a medical workup. Confirmatory testing by another method should be ordered if clinically indicated. [facility] HCG ( test) Ql (U)o n 11-25-2024 Interpretation and review of laboratory results Abnormal [facility] Preg Test, Ur Positive Negative [facility] US OB TRANSVAGINALon 025 US OB TRANSVAGINAL [...] Urobilinogen, UA 0.2 0.2 - 12 mg/dL [facility] HCG, Quanton 10-20-2024 HCG, Quant 812.4 mIU/mL High <5 [facility] Comment on above: Result Comment: Non-preg premeno <=5 Postmeno <=8 Male <=3 If HCG results do not concur with clinical observations, additional testing to confirm results is recommended. Performed By: #### R UBI, HBS, TREP, AHCV, HIVCMB, GLYHGB #### [facility] [employer] [address] [place] [address] Date Pitter: Jason Rodriguez MD #### CDP, SIDNEY #### [facility] [address] [place] [address] Date Pitter: Sherwin Elam MD HCG, Quantitative, on 10-20-2024 HCG.beta subunit Qn 812.4 m[IU]/mL High NINF B on [facility] Comment on above: Non-preg premeno <=5 Postmeno <=8 Male <=3 If HCG results do not concur with clinical observations, additional testing to confirm results is recommended. Interpretation and review of laboratory results Abnormal [facility] HCG, Quanton 10-18-2024 HCG, Quant 293.1 mIU/mL High <5 [facility] Comment on above: Result Comment: Non-preg premeno <=5 Postmeno <=8 Male <=3 If HCG results do not concur with clinical observations, additional testing to confirm results is recommended. Performed By: #### R UBI, HBS, TREP, AHCV, HIVCMB, GLYHGB #### [facility] [employer] [facility] [place] [address] Date Pitter: Jason Rodriguez MD #### CDP, SIDNEY #### [facility] [address] [place] [address] Date Pitter: Sherwin Elam MD HCG, Quantitative, on 10-18-2024 HCG.beta subunit Qn 293.1 m[IU]/mL High NINF B on [facility] Comment on above: Non-preg premeno <=5 Postmeno <=8 Male <=3 If HCG results do not concur with clinical observations, additional testing to confirm results is recommended. Interpretation and review of laboratory results Abnormal [facility] XR knee RT 4V*on 04-06-2024 XR knee RT 4V* [facility] [place] [address] [place] [id number] XRay Report Signed Patient: Fannie Mckeon MR#: [id number] : 1995 Acct:[id number] Age/Sex: 28 / F ADM Date: 04/06/24 Loc: [id number] Room: Type: [facility] Attending Dr: Renita Fu [facility]- Copies to: [facility]- Ordering Provider: Renita Fu APRN Date of [...] Justina Munson M.D.04/06/2024 12:42 PM Dictation Location: [place] [address] Transcribed By: [facility] 04/06/24 1242 Dictated By: Justina Munsno MD 04/06/24 1240 Signed By: 04/06/24 1242 Normal [facility] Estradiolon 04-15-2022 Estradiol 257.1 pg/mL 27 - 314 pg/mL [facility] Comment on above: FEMALES: Normally menstruating Luteal phase 33-298 Follicular phase 27-156 Midcycle phase 48-314 Postmenopausal (untreated) 5-50 Fulvestrant treatment will show an increased estradiol concentration with this methodology. Alternate methodologies are available upon request. No Panel Informationon 04-15 [facility] [employer] Progesteroneon 04-15-2022 Progesterone 39.8 ng/mL [facility] [employer] [facility] Comment on above: FEMALE (healthy): Follicular phase 0.06-0.89 Ovulation phase 0.12-12.00 Luteal phase 1.83-23.90 Postmenopausal <0.13 HCG, Quantitative, on 02-08-2022 hCG Quant <1 <5 mIU/mL [employer] Comment on above: Non-preg premeno <=5 Postmeno <=8 Male <=3 If HCG results do not concur with clinical observations, additional testing to confirm results is recommended. Elevated results not associated with may be found in patients with other diseases such as tumors of the germ cells (testis, ovaries, etc.), bladder, pancreas, stomach, lungs, and liver. [facility] TSHon 02-08-2022 TSH Qn 1.05 m[IU]/L [facility] Estradiolon 01-14-2022 Estradiol 326 pg/mL High 27 - 314 pg/mL [facility] Comment on above: FEMALES: Normally menstruating Luteal phase 33-298 Follicular phase 27-156 Midcycle phase 48-314 Postmenopausal (untreated) 5-50 Fulvestrant treatment will show an increased estradiol concentration with this methodology. Alternate methodologies are available upon request. Interpretation and review of laboratory results Abnormal [facility] HCG, Quantitative, on 01-14-2022 hCG Quant <1 <5 IU/L [facility] Comment on above: Non-preg premeno <=5 Postmeno <=8 Male <=3 If HCG results do not concur with clinical observations, additional testing to confirm results is recommended. Elevated results not associated with may be found in patients with other diseases such as tumors of the germ cells (testis, ovaries, etc.), bladder, pancreas, stomach, lungs, and liver. [facility] No Panel Informationon 01-14 [facility] Progesteroneon 01-14-2022 Progesterone 47.49 ng/mL [facility] Comment on above: FEMALE (healthy): Follicular phase 0.06-0.89 Ovulation phase 0.12-12.00 Luteal phase 1.83-23.90 Postmenopausal <0.13 Estradiolon 01-08-2022 Estradiol 251 pg/mL 27 - 314 pg/mL [facility] Comment on above: FEMALES: Normally menstruating Luteal phase 33-298 Follicular phase 27-156 Midcycle phase 48-314 Postmenopausal (untreated) 5-50 Fulvestrant treatment will show an increased estradiol concentration with this methodology. Alternate methodologies are available upon request. No Panel Informationon 01-08 [employer] Progesteroneon 01-08-2022 Progesterone 50.58 ng/mL [facility] Comment on above: FEMALE (healthy): Follicular phase 0.06-0.89 Ovulation phase 0.12-12.00 Luteal phase 1.83-23.90 Postmenopausal <0.13 HCG, Quantitative, on 12-10-2021 hCG Quant <1 <5 IU/L [facility] Comment on above: Non-preg premeno <=5 Postmeno <=8 Male <=3 If HCG results do not concur with clinical observations, additional testing to confirm results is recommended. Elevated results not associated with may be found in patients with other diseases such as tumors of the germ cells (testis, ovaries, etc.), bladder, pancreas, stomach, lungs, and liver. [employer] Estradiolon 09-26-2021 Estradiol 434 pg/mL High 27 - 314 pg/mL [facility] Comment on above: FEMALES: Normally menstruating Luteal phase 33-298 Follicular phase 27-156 Midcycle phase 48-314 Postmenopausal (untreated) 5-50 Fulvestrant treatment will show an increased estradiol concentration with this methodology. Alternate methodologies are available upon request. Interpretation and review of laboratory results Abnormal [facility] HCG, Quantitative, on 09-26-2021 hCG Quant 652 High <5 IU/L [facility] Comment on above: Non-preg premeno <=5 Postmeno <=8 Male <=3 If HCG results do not concur with clinical observations, additional testing to confirm results is recommended. Elevated results not associated with may be found in patients with other diseases such as tumors of the germ cells (testis, ovaries, etc.), bladder, pancreas, stomach, lungs, and liver. Interpretation and review of laboratory results Abnormal [employer] No Panel Informationon 09-26 [facility] Progesteroneon 09-26-2021 Progesterone 45.63 ng/mL Cardiovascular [facility] Comment on above: FEMALE (healthy): Follicular phase 0.06-0.89 Ovulation phase 0.12-12.00 Luteal phase 1.83-23.90 Postmenopausal <0.13 Estradiolon 09-17-2021 Estradiol 389 pg/mL High 27 - 314 pg/mL [facility] Comment on above: FEMALES: Normally menstruating Luteal phase 33-298 Follicular phase 27-156 Midcycle phase 48-314 Postmenopausal (untreated) 5-50 Fulvestrant treatment will show an increased estradiol concentration with this methodology. Alternate methodologies are available upon request. Interpretation and review of laboratory results Abnormal [facility] No Panel Informationon 09-17 [facility] Progesteroneon 09-17-2021 Progesterone 15.02 ng/mL [facility] Comment on above: FEMALE (healthy): Follicular phase 0.06-0.89 Ovulation phase 0.12-12.00 Luteal phase 1.83-23.90 Postmenopausal <0.13 TSH without ReflexOrdered By : Pedro Luis Dorantes on 06-25-2021 TSH Qn 1.08 m[IU]/L [employer] Phone: [employer] Phone: HCG, Quantitative, on 02-15-2021 hCG Quant <1 <5 IU/L [employer] Phone: Comment on above: Non-preg premeno <=5 [...] Estradiol 66 pg/mL 27 - 314 pg/mL [employer] Phone: Comment on above: FEMALES: Normally menstruating Luteal phase 33-298 Follicular phase 27-156 Midcycle phase 48-314 Postmenopausal (untreated) 5-50 Fulvestrant treatment will show an increased estradiol concentration with this methodology. Alternate methodologies are available upon request. Follicle Stimulating Hormone on 01-12-2021 FSH 5.3 U/L 1.7 - 21.5 U/L [employer] Phone: Comment on above: Reference Range: Male: 1.5-12.4 Ovulating Female: Follicular Phase 3.5-12.5 Ovulation Phase 4.7-21.5 Luteal Phase 1.7-7.7 Postmenopausal Female: 25.8-134.8 HIV Screenon 01-12-2021 HIV Ag/Ab NONREACTIVE NONREACTIVE [employer] Phone: Comment on above: No laboratory eviden ce of HIV infection. If acute HIV infection is suspected, consider testing for HIV-1 RNA. Hepatitis B Core Antibody, T nadia 01-12-2021 Hep B Core Total Ab NONREACTIVE NONREACTIVE [facility] Phone: Hepatitis B Surface Antigeno n 01-12-2021 Hepatitis B Surface Ag NONREACTIVE NONREACTIVE [employer] Phone: Hepatitis C Antibodyon 01-12 Hepatitis C Ab NONREACTIVE NONREACTIVE [employer] Work Phone: Comment on above: The hepatitis [...] LH 10.8 U/L 1.0 - 95.6 U/L [employer] Phone: Comment on above: Reference Range: Male: 1.7-8.6 Ovulating Female: Follicular Phase 2.4-12.6 Ovulation Phase 14.0-95.6 Luteal Phase 1.0-11.4 Postmenopausal Female: 7.7-58.5 Progesteroneon 01-12-2021 Progesterone 0.13 ng/mL [employer] Phone: Comment on above: FEMALE (healthy): Follicular phase 0.06-0.89 Ovulation phase 0.12-12.00 Luteal phase 1.83-23.90 Postmenopausal <0.13 Prolactinon 01-12-2021 Prolactin 7.58 ug/L 4.79 - 23.30 ug/L [employer] Phone: Comment on above: The presence of macr oprolactin may cause interference in female patients with various endocrinological diseases or during . Rubella antibody, IgGon 01-01 Rubella virus IgG Ql (S) 52.4 IU/mL [employer] Phone: Comment on above: REFERENCE RANGE: <5.0 NON-REACTIVE (non-immune) 5.0 TO 9.9 EQUIVOCAL >=10.0 REACTIVE (immune) HCG, Quantitative, on 01-11-2021 hCG Quant <1 <5 IU/L [employer] Phone: Comment on above: Non-preg premeno <=5 [...] without Reflexon 021 TSH Qn 1.08 m[IU]/L [employer] Work Phone: TYPE AND SCREENon 01-11-2021 ABO/Rh Positive [employer] Work Phone: Arm Band Number NOT REPORTED [employer] Work Phone: Expiration Date 01/14/2021,2359 [employer] Work Phone: Vital Signs Date Time Vital Sign Value Performing Clinician Facility 06-13-2025 08:39-0400 Body mass index (BMI) [Ratio] 43.9 kg/m2 Christy Schwartz PA Work Phone: [facility] 06-13-2025 08:39-0400 Body weight 108.86 kg Christy Efren PA Work Phone: [facility] 06-13-2025 08:39-0400 Diastolic blood pressure 78 mm[Hg] Christy Schwartz PA Work Phone: [facility] 06-13-2025 08:39-0400 Systolic blood pressure 120 mm[Hg] Christy Schwartz PA Work Phone: [facility] 06-06-2025 08:50-0400 Body mass index (BMI) [Ratio] 43.86 kg/m2 Christy Efren PA Work Phone: [facility] 06-06-2025 08:50-0400 Body weight 108.77 kg Christy Schwartz PA Work Phone: [facility] 06-06-2025 08:50-0400 Diastolic blood pressure 78 mm[Hg] Christy Schwartz PA Work Phone: [facility] 06-06-2025 08:50-0400 Systolic blood pressure 124 mm[Hg] Christy Efren PA Work Phone: [facility] 05-30-2025 08:35-0400 Body mass index (BMI) [Ratio] 43.16 kg/m2 Cain Mendoza DO Work Phone: [facility] 05-30-2025 08:35-0400 Body weight 107.05 kg Cain Mendoza DO Work Phone: [facility] 05-30-2025 08:35-0400 Diastolic blood pressure 82 mm[Hg] Cain Mendoza DO Work Phone: [facility] 05-30-2025 08:35-0400 Systolic blood pressure 130 mm[Hg] Cain Mendoza DO Work Phone: [facility] 05-26-2025 08:55-0400 Body mass index (BMI) [Ratio] 43.07 kg/m2 Christy MCKOY Work Phone: [facility] 05-26-2025 08:55-0400 Body weight 106.82 kg Christy MCKOY Work Phone: [facility] 05-26-2025 08:55-0400 Diastolic blood pressure 84 mm[Hg] Christy MCKOY Work Phone: [facility] 05-26-2025 08:55-0400 Systolic blood pressure 130 mm[Hg] Christy MCKOY Work Phone: [facility] 05-16-2025 08:37-0400 Body mass index (BMI) [Ratio] 43.71 kg/m2 Cain Mendoza DO Work Phone: [facility] 05-16-2025 08:37-0400 Body weight 108.41 kg Cain Mendoza DO Work Phone: [facility] 05-16-2025 08:37-0400 Diastolic blood pressure 70 mm[Hg] Cain Mendoza DO Work Phone: [facility] 05-16-2025 08:37-0400 Systolic blood pressure 120 mm[Hg] Cain Mendoza DO Work Phone: [facility] 05-03-2025 09:06-0400 Body mass index (BMI) [Ratio] 43.99 kg/m2 Christy Efren PA Work Phone: [facility] 05-03-2025 09:06-0400 Body weight 109.09 kg Christy Efren PA Work Phone: [facility] 05-03-2025 09:06-0400 Diastolic blood pressure 86 mm[Hg] Christy [place] PA Work Phone: [facility] 05-03-2025 09:06-0400 Systolic blood pressure 130 mm[Hg] Christy Efren PA Work Phone: [facility] 04-18-2025 10:40-0400 Body mass index (BMI) [Ratio] 43.16 kg/m2 Cain Mendoza DO Work Phone: [facility] 04-18-2025 10:40-0400 Body weight 107.05 kg Cain Mendoza DO Work Phone: [facility] 04-18-2025 10:40-0400 Diastolic blood pressure 72 mm[Hg] Cain Mendoza DO Work Phone: [facility] 04-18-2025 10:40-0400 Systolic blood pressure 120 mm[Hg] Cain Mendoza DO Work Phone: [facility] 04-18-2025 10:34-0400 Body height 157.5 cm Cain Mendoza DO Work Phone: [facility] 03-30-2025 09:26-0400 Body weight 103.87 kg Christy Efren PA Work Phone: [facility] 03-30-2025 09:26-0400 Diastolic blood pressure 80 mm[Hg] Christy [place] PA Work Phone: [facility] 03-30-2025 09:26-0400 Systolic blood pressure 122 mm[Hg] Christy [place] PA Work Phone: [facility] 03-03-2025 09:00-0400 Body weight 105.14 kg Cain Mendoza DO Work Phone: [facility] 03-03-2025 09:00-0400 Diastolic blood pressure 80 mm[Hg] Cain Mendoza DO Work Phone: [facility] 03-03-2025 09:00-0400 Systolic blood pressure 120 mm[Hg] Cain Mendoza DO Work Phone: [facility] 02-08-2025 09:34-0400 Body height 157.5 cm Jaida Chadwick MD Work Phone: [facility] 02-08-2025 09:34-0400 Body mass index (BMI) [Ratio] 42.24 kg/m2 Jaida Chadwick MD Work Phone: [facility] 02-08-2025 09:34-0400 Body weight 104.78 kg Jaida Chdawick MD Work Phone: [facility] 02-08-2025 09:34-0400 Diastolic blood pressure 80 mm[Hg] Jaida Chadwick MD Work Phone: [facility] 02-08-2025 09:34-0400 Heart rate 95 /min Jaida Chadwick MD Work Phone: [facility] 02-08-2025 09:34-0400 Systolic blood pressure 125 mm[Hg] Jaida Chadwick MD Work Phone: [facility] 01-26-2025 14:44-0400 Body height 157.5 cm Apollo Martinez PHARMACY CLINICAL COORDINATOR-[employer] SUPERVISOR Work Phone: [facility] 01-26-2025 14:44-0400 Body mass index (BMI) [Ratio] 41.88 kg/m2 Apollo Martinez PHARMACY CLINICAL COORDINATOR-[employer] MAKER SUPERVISOR Work Phone: [facility] 01-26-2025 14:44-0400 Body weight 103.87 kg Apollo Martinez PHARMACY CLINICAL COORDINATOR-[employer]TERN [employer]KER SUPERVISOR Work Phone: [facility] 01-26-2025 14:44-0400 Diastolic blood pressure 60 mm[Hg] Apollo Martinez PHARMACY CLINICAL COORDINATOR-[employer]TERN [employer] MAKER SUPERVISOR Work Phone: [facility] 01-26-2025 14:44-0400 Heart rate 87 /min Apollo Martinez PHARMACY CLINICAL COORDINATOR-[employer]TERN CH[employer] MAKER SUPERVISOR Work Phone: [facility] 01-26-2025 14:44-0400 Systolic blood pressure 115 mm[Hg] Apollo Martinez PHARMACY CLINICAL COORDINATOR-PATTERN CH[employer] MAKER SUPERVISOR Work Phone: [facility] 01-26-2025 14:25-0400 Body mass index (BMI) [Ratio] 41.87 kg/m2 [facility] 01-26-2025 14:25-0400 Body weight 103.87 kg [facility] 01-20-2025 08:42-0400 Body weight 103.87 kg Christy MCKOY Work Phone: [facility] 01-20-2025 08:42-0400 Diastolic blood pressure 70 mm[Hg] Christy MCKOY Work Phone: [facility] 01-20-2025 08:42-0400 Systolic blood pressure 120 mm[Hg] Christy Schwartz PA Work Phone: [facility] 12-30-2024 10:57-0500 Body height 157.5 cm Jaida Chadwick MD Work Phone: [facility] 11-25-2024 15:25-0500 Body weight 105.23 kg Noms Nurse [facility] 11-25-2024 15:25-0500 Diastolic blood pressure 72 mm[Hg] Noms Nurse [facility] 11-25-2024 15:25-0500 Systolic blood pressure 124 mm[Hg] Noms Nurse [facility] 04-06-2024 12:06-0400 Body height 157.48 cm PHYSICIAN [facility] 04-06-2024 12:06-0400 Body mass index (BMI) [Ratio] 42 kg/m2 PHYSICIAN [facility] 04-06-2024 12:06-0400 Body weight 104.32 kg PHYSICIAN [facility] 04-06-2024 12:06-0400 Diastolic blood pressure 80 mm[Hg] PHYSICIAN [facility] 04-06-2024 12:06-0400 Heart rate 80 /min PHYSICIAN NO [facility] 04-06-2024 12:06-0400 Respiratory rate 20 /min PHYSICIAN NO [facility] 04-06-2024 12:06-0400 SaO2% (BldA) [Mass fraction] 99 % PHYSICIAN NO [facility] 04-06-2024 12:06-0400 Systolic blood pressure 124 mm[Hg] PHYSICIAN NO [facility] Encounters Encounter Date Encounter Type Care Provider Facility Start: 11-25-2025 ambulatory Aissatou BinghamJaved Jonathan Facility:[facility] Start: 06-13-2025 End: 06-13-2025 Bamboo flowsheet Christy MCKOY Work Phone: [facility] Start: 06-13-2025 End: 06-13-2025 Bamboo flowsheet Christy MCKOY Work Phone: [facility] Start: 06-13-2025 End: 06-13-2025 Telephone encounter Sonya Lomax RN [facility] Start: 06-13-2025 End: 06-13-2025 ambulatory CHRISTY SCHWARTZ Not Available Start: 06-13-2025 End: 06-13-2025 flow sheet Christy MCKOY Work Phone: [facility] Comment on above: Excessive grow th affecting management of in third trimester, single or unspecified fetus ([facility]) (Primary Dx); 38 weeks gestation of ([facility]); Third trimester ([facility]); Conceived by in vitro fertilization; Factor 5 Leiden mutation, heterozygous ([facility]); Insulin controlled gestational diabetes mellitus (GDM) during , antepartum ([facility]) Start: 06-10-2025 End: 06-10-2025 Telephone encounter Naomy Thompson RN Work Phone: [facility] Start: 06-08-2025 End: 06-08-2025 Clinisync Result Encounter George Scherer POSITION DESCRIPTION MANAGER Work Phone: [facility] External Department Unsolicited Start: 06-08-2025 End: 06-08-2025 Clinisync Result Encounter George Scherer POSITION DESCRIPTION MANAGER Work Phone: [facility] External Department Unsolicited Start: 06-07-2025 End: 06-07-2025 Orders Only Eva Mccann PHARMACY CLINICAL COORDINATOR-[facility] Work Phone: [facility] Comment on above: Insulin controlled g estational diabetes mellitus (GDM) in second trimester; Prediabetes in mother during Start: 06-06-2025 End: 06-06-2025 Bamboo flowsheet Christy MCKOY Work Phone: [facility] Start: 06-06-2025 End: 06-06-2025 Bamboo flowsheet Christy MCKOY Work Phone: [facility] Start: 06-06-2025 End: 06-06-2025 flow sheet Christy MCKOY Work Phone: [facility] Comment on above: Third trimester preg selene ([facility]); 37 weeks gestation of ([facility]) Start: 06-06-2025 End: 06-06-2025 ambulatory CHRISTY SCHWARTZ Not Available Start: 05-30-2025 End: 05-30-2025 Bamboo flowsheet Cain Mendoza DO Work Phone: [facility] Start: 05-30-2025 End: 05-30-2025 Bamboo flowsheet Cain Mendoza DO Work Phone: [facility] Start: 05-30-2025 End: 06-07-2025 Telephone encounter Sonya Lomax RN [facility] Start: 05-30-2025 End: 05-30-2025 flow sheet Cain Mendoza DO Work Phone: [facility] Comment on above: Right otitis media, unspecified otitis media type (Primary Dx); Third trimester ([facility]); 36 weeks gestation of ([facility]) Start: 05-30-2025 End: 05-30-2025 ambulatory CAIN DONALDSON Not Available Start: 05-27-2025 End: 05-27-2025 ambulatory Aissatou Castillo Facility:[facility] Start: 05-27-2025 End: 05-27-2025 Patient encounter procedure Aissatou Castillo [facility] Start: 05-26-2025 End: 05-26-2025 Bamboo flowsheet Christy MCKOY Work Phone: [facility] Start: 05-26-2025 End: 05-26-2025 Bamboo flowsheet Christy MCKOY Work Phone: [facility] Start: 05-26-2025 End: 05-26-2025 flow sheet Christy MCKOY Work Phone: [facility] Comment on above: Third trimester preg selene ([facility]); 36 weeks gestation of ([facility]) Start: 05-26-2025 End: 05-26-2025 ambulatory CHRISTY SCHWARTZ Not Available Start: 05-24-2025 End: 05-24-2025 Clinisync Result Encounter George Scherer NP Work Phone: [facility] Unsolicited Start: 05-24-2025 End: 05-24-2025 Clinisync Result Encounter George Scherer NP Work Phone: [facility] Unsolicited Start: 05-23-2025 End: 05-23-2025 Office outpatient visit 25 minutes Devika Luu PA-C Work Phone: [facility] Comment on above: Insulin controlled g estational diabetes mellitus (GDM) in third trimester (Primary Dx) Start: 05-23-2025 End: 05-23-2025 ambulatory DEVIKA LUU [facility] Start: 05-19-2025 ambulatory MESSIKEVIN MCKNIGHT Facility:[facility] Start: 05-17-2025 End: 05-17-2025 Clinisync Result Encounter George Scherer NP Work Phone: [facility] Unsolicited Start: 05-17-2025 End: 05-17-2025 Clinisync Result Encounter George Scherer NP Work Phone: [facility] Unsolicited Start: 05-17-2025 End: 05-17-2025 Telephone encounter Sonya Lomax RN [facility] Start: 05-16-2025 End: 05-16-2025 Bamboo flowsheet Cain Mendoza DO Work Phone: [facility] Start: 05-16-2025 End: 05-16-2025 Bamboo flowsheet Cain Mendoza DO Work Phone: [facility] Start: 05-16-2025 End: 05-16-2025 ambulatory CAIN MENDOZA Not Available Start: 05-16-2025 End: 05-16-2025 flow sheet Cain Mendoza DO Work Phone: [facility] Comment on above: 34 weeks gestation o f ([facility]); Third trimester ([facility]); Conceived by in vitro fertilization; Factor 5 Leiden mutation, heterozygous ([facility]); Insulin controlled gestational diabetes mellitus (GDM) during , antepartum ([facility]); Non-recurrent acute serous otitis media of left ear Start: 05-11-2025 End: 05-11-2025 Telephone encounter Belen BRYANT [facility] Start: 05-10-2025 End: 05-10-2025 Clinisync Result Encounter George Scherer NP Work Phone: [facility] Unsolicited Start: 05-10-2025 End: 05-10-2025 Clinisync Result Encounter George Scherer NP Work Phone: [facility] Unsolicited Start: 05-10-2025 End: 05-10-2025 ambulatory CHRISTY EFREN Not Available Start: 05-04-2025 End: 05-04-2025 Clinisync [...] Start: 05-03-2025 End: 05-03-2025 Telephone encounter Shoshana BRYANT Work Phone: [facility] Start: 05-03-2025 End: 05-03-2025 flow sheet Christy MCKOY Work Phone: [facility] Comment on above: size inconsist ent with dates ([facility]) (Primary Dx); Third trimester ([facility]); 32 weeks gestation of ([facility]); Conceived by in vitro fertilization; Factor 5 Leiden mutation, heterozygous ([facility]); Insulin controlled gestational diabetes mellitus (GDM) during , antepartum ([facility] [facility] Start: 05-03-2025 End: 05-03-2025 ambulatory CHRISTY SCHWARTZ Not Available Start: 04-27-2025 ambulatory Aissatou Castillo Facility:[facility] Start: 04-27-2025 End: 04-27-2025 Clinisync Result Encounter George Scherer NP Work Phone: [facility] External Department Unsolicited Start: 04-27-2025 End: 04-27-2025 Clinisync Result Encounter George Scherer NP Work Phone: [facility] External Department Unsolicited Start: 04-25-2025 End: 04-25-2025 Telephone encounter Giselle Cheng [facility] Start: 04-25-2025 End: 04-25-2025 ambulatory DEVIKA LUU [facility] Start: 04-25-2025 End: 04-25-2025 Office outpatient visit 25 minutes Devika Luu PA-C Work Phone: [facility] Comment on above: Insulin controlled g estational diabetes mellitus (GDM) in third trimester (Primary Dx) Start: 04-20-2025 End: 04-20-2025 Telephone encounter Aissatou Stoner RN [facility] Start: 04-19-2025 End: 04-19-2025 Clinisync Result Encounter [...] Comment on above: Third trimester preg selene ([facility]); 30 weeks gestation of ([facility]) Start: 04-17-2025 End: 04-18-2025 Clinisync Result Encounter Cain Mendoza DO Work Phone: [facility] External Department Unsolicited Start: 04-17-2025 End: 04-18-2025 Clinisync Result Encounter Cain Mendoza DO Work Phone: [facility] External Department Unsolicited Start: 04-14-2025 End: 04-14-2025 ambulatory [facility] Start: 04-12-2025 End: 04-12-2025 Telephone encounter Sonya Lomax RN [facility] Start: 04-11-2025 End: 04-11-2025 ambulatory Devika Luu PA-C Work Phone: [facility]- [facility] at [facility] Comment on above: Insulin controlled g estational diabetes mellitus (GDM) in second trimester; Prediabetes in mother during Start: 04-11-2025 End: 04-11-2025 Clinisync Result Encounter Cain Mendoza DO Work Phone: [facility] External Department Unsolicited Start: 04-11-2025 End: 04-11-2025 Clinisync Result Encounter Cain Mendoza DO Work Phone: [facility] External Department Unsolicited Start: 04-11-2025 End: 04-11-2025 Orders Only Devika Luu PA-C Work Phone: [facility] Start: 04-05-2025 End: 04-05-2025 Clinisync Result Encounter [...] Office outpatient visit 25 minutes Apollo Martinez PHARMACY CLINICAL COORDINATOR-PATTERN CHAIN MAKER SUPERVISOR Work Phone: [facility]- [facility] at [facility] Comment on above: Insulin controlled g estational diabetes mellitus (GDM) in second trimester (Primary Dx); Recurrent major depressive disorder, in partial remission; Prediabetes in mother during Start: 03-30-2025 End: 03-30-2025 ambulatory APOLLO MARTINEZ [facility] Start: 03-30-2025 End: 03-30-2025 flow sheet Christy MCKOY Work Phone: [facility] Comment on above: Second trimester pre gnancy; 27 weeks gestation of ; Gestational diabetes mellitus (GDM), antepartum, gestational diabetes method of control unspecified; Factor 5 Leiden mutation, heterozygous (CMS/HCC); Conceived by in vitro fertilization Start: 03-30-2025 End: 03-30-2025 ambulatory CHRISTY SCHWARTZ Not Available Start: 03-22-2025 End: 03-22-2025 Telephone encounter Sonya Lomax RN [facility] Start: 03-16-2025 End: 03-16-2025 Telephone encounter Sonya Lomax RN [facility] Start: 03-16-2025 End: 03-16-2025 ambulatory [facility] Start: 03-11-2025 End: 03-11-2025 Telephone encounter Naomy Thompson RN Work Phone: [facility] Start: 03-07-2025 End: 03-07-2025 Orders Only Cole Wade MD Work Phone: [facility] Comment on above: Insulin controlled g estational [...] antepartum Start: 03-03-2025 End: 03-03-2025 ambulatory CAIN YATESO Not Available Start: 03-01-2025 End: 03-01-2025 Telephone encounter Valerie Le RN [facility] Start: 02-28-2025 End: 02-28-2025 Orders Only Devika Luu PA-C Work Phone: [facility] Comment on above: Insulin controlled g estational diabetes mellitus (GDM) in second trimester; Prediabetes in mother during Start: 02-24-2025 End: 02-24-2025 Office outpatient visit 25 minutes Apollo LAWRENCE Work Phone: [facility] Comment on above: Insulin controlled g estational diabetes mellitus (GDM) in second trimester (Primary Dx); Recurrent major depressive disorder, in partial remission; Bipolar 1 disorder ([facility]); Prediabetes in mother during Start: 02-24-2025 End: 02-24-2025 ambulatory APOLLO LORI [facility] Start: 02-17-2025 End: 02-17-2025 Telephone encounter Christy Prado LPN [facility] Start: 02-15-2025 End: 02-15-2025 Telephone encounter Valerie Le RN [facility] Start: 02-08-2025 End: 02-08-2025 Office consultation new/estab patient 60 min Jaida Chadwick MD Work Phone: [facility] Comment on above: Insulin controlled g estational diabetes mellitus (GDM) in second trimester (Primary Dx); Prediabetes in mother during ; 20 weeks gestation of ; Choroid plexus cyst of fetus affecting care of mother, antepartum, single or unspecified fetus; Heterozygous factor V Leiden affecting in second trimester, antepartum; Severe obesity due to excess calories affecting , antepartum ([facility]); Bipolar disorder, in full remission, most recent episode depressed Start: 02-08-2025 End: 02-08-2025 Orders Only Christy Prado LPN [facility] Comment on above: Insulin controlled g estational diabetes mellitus (GDM) in second trimester (Primary Dx); Choroid plexus cyst of fetus affecting care of mother, antepartum, single or unspecified fetus; Heterozygous factor V Leiden affecting in second trimester, antepartum; Severe obesity due to excess calories affecting , antepartum ([facility]) Start: 02-03-2025 End: 02-03-2025 Telephone encounter Christy Prado LPN [facility] Start: 01-27-2025 End: 01-27-2025 Orders Only Apollo LAWRENCE Work Phone: [facility] Start: 01-26-2025 End: 01-26-2025 Office outpatient new 45 minutes Apollo LAWRENCE Work Phone: [facility] Comment on above: Insulin controlled g estational diabetes mellitus (GDM) in second trimester (Primary Dx) Start: 01-26-2025 End: 01-27-2025 Refill Apollo LAWRENCE Work Phone: [facility] Start: 01-26-2025 End: 01-26-[address] Work Phone: [facility] Comment on above: Insulin controlled g estational [...] discharge Start: 01-20-2025 End: 01-20-2025 ambulatory CHRISTY SCHWARTZ Not Available Start: 01-13-2025 End: 01-13-2025 Chart abstracting Scanning Provider External [facility] Start: 12-30-2024 End: 12-30-2024 Chart abstracting Jaida Chadwick MD Work Phone: [facility] Start: 12-29-2024 End: 12-29-2024 Telephone encounter Claudine Hawthorne [facility] Start: 12-23-2024 End: 12-23-2024 ambulatory CAIN DONALDSON [facility] Start: 12-23-2024 End: 12-23-2024 Subsequent hospital visit [...] 11-25-2024 End: 11-25-2024 ambulatory [facility] [place] Nurse [facility] Comment on above: GA: [id number] Start: 10-20-2024 End: 10-20-2024 ambulatory JOSE Peterson ILDEFONSOVASYL [facility] Start: 10-20-2024 End: 10-20-2024 Subsequent hospital visit by physician [facility] Start: 10-18-2024 End: 10-18-2024 ambulatory JOSE Nicholas EULOGIO [facility] Start: 10-18-2024 End: 10-18-2024 Subsequent hospital visit by physician [facility] Start: 04-06-2024 End: 04-06-2024 ambulatory PHYSICIAN TWIN [facility] Work Phone: Start: 04-06-2024 End: 04-06-2024 Patient encounter procedure PHYSICIAN TWIN [facility] [place] Work Phone: Start: 04-15-2022 End: 04-15-2022 Subsequent [...] End: 09-17-2021 Subsequent hospital visit by physician [facility] Start: 06-25-2021 End: 06-25-2021 Subsequent hospital visit by physician [facility] Start: 02-15-2021 End: 02-15-2021 Subsequent hospital visit by physician [facility] Covid19 Pat Screening Schedule [facility] Comment on above: Arrived Start: 01-11-2021 End: 01-11-2021 Subsequent hospital visit by physician [facility] Procedures Date Procedure Procedure Detail Performing Clinician Start: 06-13-2025 Urnls dip stick/tabl et rgnt non-auto w/o micrscp Christy MCKOY Work Phone: Start: 06-08-2025 US OB BPP W NON-STRESS George Gilmer POSITION DESCRIPTION MANAGER Work Phone: Start: 05-30-2025 Urnls dip stick/tabl et rgnt non-auto w/o micrscp Cain Mendoza DO Work Phone: Start: 05-26-2025 Urnls dip stick/tabl et rgnt non-auto w/o micrscp Christy MCKOY Work Phone: Start: 05-24-2025 US OB BPP W NON-STRESS George Gilmer POSITION DESCRIPTION MANAGER Work Phone: Start: 05-17-2025 US OB BPP W NON-STRESS George Gilmer POSITION DESCRIPTION MANAGER Work Phone: Start: 05-16-2025 Urnls dip stick/tabl et rgnt non-auto w/o micrscp Cain Mendoza DO Work Phone: Start: 05-10-2025 US OB BPP W NON-STRESS George Gilmer POSITION DESCRIPTION MANAGER Work Phone: Start: 05-04-2025 US OB BPP W NON-STRESS George Gilmer POSITION DESCRIPTION MANAGER Work Phone: Start: 05-03-2025 Urnls dip stick/tabl et rgnt non-auto w/o micrscp Christy MCKOY Work Phone: Start: 04-27-2025 US OB BPP W NON-STRESS George Gilmer POSITION DESCRIPTION MANAGER Work Phone: Start: 04-19-2025 US OB BPP W NON-STRESS Cain Mendoza DO Work Phone: Start: 04-19-2025 US RENAL BI Cain Fazi o DO Work Phone: Start: 04-18-2025 [facility] UA (CLEAN/CATCH) SPEECH COACH/MICRO IF IND. Cain Mendoza DO Work Phone: Start: 04-18-2025 Urnls dip stick/tabl et rgnt non-auto w/o micrscp Cain Mendoza DO Work Phone: Start: 04-17-2025 [facility] TOTAL PROTEIN 24 HOUR URINE Cain Mendoza DO Work Phone: Start: 04-11-2025 OB BPP W NON-STRESS Cain Mendoza DO [...] Blood count complete auto&auto difrntl wbc Cain Dave Donaldson MD Work Phone: Start: 12-23-2024 End: [...] Phone: Start: 01-11-2021 Assay of progesterone F vick Cecilio Dorantes Work Phone: Start: 01-11-2021 Assay of prolactin Summer Dorantes Work Phone: Start: 01-11-2021 Assay of thyroid stimulating hormone tsh Pedro Luis Dorantes Work Phone: Start: 01-11-2021 Blood typing serologic abo Pedro Luis Dornates Work Phone: Start: 01-11-2021 Gonadotropin chorion ic [...] Td Vaccines (2 - Td or Tdap) [facility] Start: 01-21-2028 Screening for malign ant neoplasm of cervix [facility] Start: 02-08-2026 Adult BMI Screening Adult BMI Screen ing [facility] Start: 02-08-2026 Tobacco Screening Tobacco Screening [facility] Start: 01-26-2026 Adult BMI Screening Adult BMI Screen ing [facility] Start: 01-26-2026 Tobacco Screening Tobacco Screening [facility] Start: 07-04-2025 Influenza vaccination [facility] Start: 06-16-2025 End: 06-16-2025 Professional / ancillary services management 06/16/2025 8:00 AM EDT Ancillary Procedure [facility] [address] [place] [address] [place] [id number] [facility] Start: 06-13-2025 End: 10-13-2025 US for US OB follow up transabdominal approach Imaging Routine Excessive growth affecting management of in third trimester, single or unspecified fetus ([facility]) Expected: 06/13/2025, Expires: 10/13/2025 [facility] Work Phone: Comment on above: Expected: 06/13/2025 , Expires: 10/13/2025 Start: 06-13-2025 End: 06-13-2025 Patient encounter procedure [facility] Start: 06-06-2025 End: 06-06-2025 Patient encounter procedure [facility] Comment on above: Arrived Start: 06-03-2025 Influenza vaccination Flu vacc ine (Season Ended) [facility] Start: 05-30-2025 End: 05-30-2025 Patient encounter procedure [facility] Comment on above: Arrived Start: 05-26-2025 End: 05-26-2026 CULTURE, GROUP B STREP WITH SUSCEPTIBLITY CULTURE, GROUP B STREP WITH SUSCEPTIBLITY Lab Routine Third trimester ([facility]) Expected: 05/26/2025, Expires: 05/26/2026 [facility] Work Phone: Comment on above: Expected: 05/26/2025 , Expires: 05/26/2026 Start: 05-26-2025 End: 05-26-2025 Patient encounter procedure [facility] Comment on above: Arrived Start: 05-23-2025 End: 05-23-2025 Telemedicine consultation with patient 05/23/2025 1:30 PM EDT Telemedicine [facility] [address] [place] [phone] Devika Luu, JASON [address] [address] [facility] Start: 05-16-2025 End: 05-16-2025 Patient encounter procedure 05/16/2025 8:30 AM EDT Routine [facility] [address] [place] [id number] Cain Donaldson DO [address] [place] [address] [facility] Start: 05-12-2025 End: 05-12-2025 Patient encounter procedure 05/12/2025 8:00 AM EDT Appointment [facility] [address] [place] [address] [facility] [place] Start: 05-10-2025 End: 05-10-2025 Professional / ancillary services management 05/10/2025 8:00 AM EDT Ancillary Procedure [facility] [address] [place] [address] [facility] Start: 05-03-2025 End: 09-03-2025 US for US OB follow up transabdominal approach Imaging Routine size inconsistent with dates ([facility]) Expected: 05/03/2025, Expires: 09/03/2025 [facility] Work Phone: Comment on above: Expected: 05/03/2025 , Expires: 09/03/2025 Start: 05-03-2025 End: 05-03-2025 Patient encounter procedure [facility] Comment on above: Arrived Start: 04-25-2025 End: 04-25-2025 Telemedicine consultation with patient 04/25/2025 11:30 AM EDT Telemedicine [facility] [address] [place] [phone] Devika Luu, JASON [address] [facility] [address] [address] [facility] Start: 04-18-2025 End: 04-18-2025 Patient encounter procedure 04/18/2025 10:10 AM EDT Routine [facility] [address] [place] [phone] Cain Donaldson, [address] [place] [address] [facility] Start: 04-14-2025 End: 04-14-2025 Patient encounter procedure 04/14/2025 8:00 AM EDT Appointment [facility] [place] [address] [place] [address] [facility] [place] Start: 03-30-2025 End: 09-30-2025 US biophysical profile w non stress test US biophysical profile w non stress test Imaging Routine Gestational diabetes mellitus (GDM), antepartum, gestational diabetes method of control unspecified Factor 5 Leiden mutation, heterozygous (CMS/HCC) Conceived by in vitro fertilization Expected: 03/30/2025 (Approximate), Expires: 09/30/2025 [facility] Comment on above: Expected: 03/30/2025 (Approximate), Expires: 09/30/2025 Start: 03-30-2025 End: 07-31-2025 US for US OB follow up transabdominal approach Imaging Routine Gestational diabetes mellitus (GDM), antepartum, gestational diabetes method of control unspecified Factor 5 Leiden mutation, heterozygous (CMS/HCC) Conceived by in vitro fertilization Expected: 03/30/2025, Expires: 07/31/2025 [facility] Work Phone: Comment on above: Expected: 03/30/2025 , Expires: 07/31/2025 Start: 03-30-2025 End: 03-30-2025 Telemedicine consultation with patient 03/30/2025 1:30 PM EDT Telemedicine [facility] [address] [place] [phone] Apollo Martinez, PHARMACY CLINICAL COORDINATOR-PATTERN CHAIN MAKER SUPERVISOR [address] [place] [address] [facility] Start: 03-30-2025 End: 03-30-2025 Patient encounter procedure [facility] Comment on above: Arrived Start: 03-16-2025 End: 03-16-2025 Patient encounter procedure 03/16/2025 8:00 AM EDT Appointment [facility] [address] [place] [address] [facility] Start: 03-03-2025 End: 03-03-2026 Alanine [...] induced hypertension, antepartum Expected: 03/03/2025, Expires: 03/03/2026 [facility] Comment on above: Expected: 03/03/2025 , Expires: 03/03/2026 Start: 03-03-2025 End: 03-03-2026 Urate [Mass/volume] in Serum or Plasma Uric acid Lab Routine 23 weeks gestation of induced hypertension, antepartum Expected: 03/03/2025 (Approximate), Expires: 03/03/2026 [facility] Comment on above: Expected: 03/03/2025 (Approximate), Expires: 03/03/2026 Start: 03-03-2025 End: 03-03-2026 Urea nitrogen [Mass/volume] in Serum or Plasma BUN Lab Routine 23 weeks gestation of induced hypertension, antepartum Expected: 03/03/2025, Expires: 03/03/2026 [facility] Comment on above: Expected: 03/03/2025 , Expires: 03/03/2026 Start: 03-03-2025 End: 03-03-2025 Patient encounter procedure 03/03/2025 8:40 AM EDT Routine [facility] [address] [facility] [place] [phone] Cain Donaldson DO [address] [place] [address] Arrived [facility] Comment on above: Arrived Start: 02-24-2025 End: 02-24-2025 Patient encounter procedure 02/24/2025 1:00 PM EDT Office Visit [facility] [address] [place] [address] Apollo Martinez APRN-CNP [address] [place] [address] [facility] Start: 02-08-2025 End: 02-08-2026 US MFM with or without consult US MFM with or without consult Imaging Routine Insulin controlled gestational diabetes mellitus (GDM) in second trimester Choroid plexus cyst of fetus affecting care of mother, antepartum, single or unspecified fetus Heterozygous factor V Leiden affecting in second trimester, antepartum Severe obesity due to excess calories affecting , antepartum ([facility]) Expected: 02/08/2025, Expires: 02/08/2026 [facility] Work Phone: Comment on above: Expected: 02/08/2025 , Expires: 02/08/2026 Start: 02-08-2025 End: 02-08-2025 Patient encounter procedure [facility] Start: 01-26-2025 End: 01-26-2025 Patient encounter procedure 01/26/2025 3:30 PM EDT Office Visit [facility] [address] [place] [address] Apollo Martinez, KRISTALPATTERN CHAIN MAKER SUPERVISOR [address] [place] [address] [facility] Start: 01-26-2025 End: 01-26-2025 ambulatory 01/26/2025 1:30 PM EDT Support Visit [facility] at [facility] [address] [place] [address] Kenzie Dotson, RD [address] [place] [address] [facility] Start: 01-20-2025 End: 02-20-2025 Alpha fetoprotein, maternal [...] first trimester Expected: 11/25/2024 (Approximate), Expires: 11/25/2025 [facility] Comment on above: Expected: 11/25/2024 (Approximate), Expires: 11/25/2025 Start: 07-04-2024 COVID-19 Vaccine () COVID-19 Vaccine () [facility] Start: 07-04-2024 COVID-19 Vaccine () COVID-19 Vaccine (2023- season) [facility] Start: 07-04-2024 Influenza vaccination Influenza Vacc ine [facility] Start: 06-03-2024 Influenza vaccination Flu vaccine (# 1) [facility] Start: 11-24-2023 Screening for malign ant neoplasm of cervix Pap Smear [facility] Start: 2023 Screening for malign ant neoplasm of cervix [facility] Start: 07-04-2022 Influenza vaccination Flu vacc ine (Season Ended) [facility] Start: 07-04-2021 Influenza vaccination [facility] Start: 07-04-2020 Influenza vaccination Flu vaccine (# 1) [facility] [employer] Phone: Start: 07-03-2015 DTaP,Tdap and Td Vac cines (2 - Tdap) DTaP,Tdap and Td Vaccines (2 - Tdap) [facility] Start: 2014 Screening for malign ant neoplasm of cervix [facility] Start: 2012 DTaP/Tdap/Td vaccine (1 - Tdap) DTaP/Tdap/Td vaccine (1 - Tdap) [facility] Start: 2012 Hepatitis B vaccine (1 of 3 - 19+ 3-dose series) Hepatitis B vaccine (1 of 3 - 19+ 3-dose series) [facility] Start: 2011 Adult BMI Follow Up Plan Adult BMI Follow Up Plan [facility] Start: 2011 Adult BMI Screening Adult BMI Screen ing [facility] Start: 2009 COVID-19 Vaccine (1) COVID-19 Vaccin e (1) [facility] Work Phone: Start: 2006 Varicella vaccine (1 of 2 - 13+ 2-dose series) Varicella vaccine (1 of 2 - 13+ 2-dose series) [facility] Start: 2005 COVID-19 Vaccine (1) COVID-19 Vaccin e (1) [facility] Start: 2005 Depression Screen Depression Screen [facility] Start: 2005 Depression Screening Depression Scre ening [facility] Start: 2005 Tobacco Screening Tobacco Screening [facility] Start: 1998 COVID-19 Vaccine (1) COVID-19 Vaccin e (1) [facility] Start: 1994 Varicella vaccine (1 of 2 - 2-dose childhood series) Varicella vaccine (1 of 2 - 2-dose childhood series) [facility] End: 02-08-2025 Alpha Fetoprotein, Maternal [facility] [employer] Phone: Comment on above: Once for 1 Occurrenc es starting 02/08/2025 until 02/08/2025 End: 01-11-2021 Anti Mullerian Hormone Anti Mullerian Hormone Lab Routine Once for 1 Occurrences starting 01/11/2021 until 01/11/2021 [employer] Phone: Comment on above: Once for 1 Occurrenc es starting 01/11/2021 until 01/11/2021 Anti Mullerian Hormone Anti Keeley erian Hormone Lab Routine 01/11/2021 1:58 PM [employer] Phone: Bacteria identified in Urine by Culture Urine culture Microbiology Routine Missed menses Ordered: 11/25/2024 [facility] Comment on above: Ordered: 11/25/2024 Bacteria identified in Urine by Culture Urine culture Microbiology Routine 34 weeks gestation of ([facility]) Conceived by in vitro fertilization Ordered: 05/16/2025 [employer] Work Phone: Comment on above: Ordered: 05/16/2025 End: 01-11-2021 C.trachomatis N.gonorrhoeae DNA, Urine C.trachomatis N.gonorrhoeae DNA, Urine Microbiology Routine Once for 1 Occurrences starting 01/11/2021 until 01/11/2021 [employer] Phone: Comment on above: Once for 1 Occurrenc es starting 01/11/2021 until 01/11/2021 C.trachomatis N.gonorrhoeae DNA, Urine C.trachomatis N.gonorrhoeae DNA, Urine Microbiology Routine 01/11/2021 2:29 PM [employer] Phone: CBC W Auto Different ial panel [...] for 1 Occurrences starting 02/15/2021 until 02/15/2021 [employer] Phone: Comment on above: Once for 1 Occurrenc es starting 02/15/2021 until 02/15/2021 COVID-19 COVID-19 Lab Rou linda 02/15/2021 3:10 PM EDT [employer] Phone: End: 12-23-2024 Culture, Urine [facility] [employer] Comment on above: Once for 1 Occurrenc es starting 12/23/2024 until 12/23/2024 Cytology Cervical or vaginal smear or scraping study Pap Smear Pathology and Cytology Routine Well woman exam with routine gynecological exam Ordered: 01/20/2025 [facility] Comment on above: Ordered: 01/20/2025 End: 01-11-2021 Factor 5 Leiden Factor 5 Leiden Lab Routine Once for 1 Occurrences starting 01/11/2021 until 01/11/2021 [employer] Phone: Comment on above: Once for 1 Occurrenc es starting 01/11/2021 until 01/11/2021 Factor 5 Leiden Factor 5 Leiden Lab Routine 01/11/2021 1:58 PM [employer] Phone: End: 01-11-2021 HbA1c (Bld) [Mass fraction] Hemoglobin A1C Lab Routine Once for 1 Occurrences starting 01/11/2021 until 01/11/2021 [employer] Phone: Comment on above: Once for 1 Occurrenc es starting 01/11/2021 until 01/11/2021 HbA1c (Bld) [Mass fraction] Hemoglobin A1C Lab Routine 01/11/2021 1:58 PM [employer] Phone: Hemoglobin A1c/Hemoglobin.total in Blood Hemoglobin A1c Lab Routine Missed menses , unspecified gestational age Ordered: 11/25/2024 [facility] Comment on above: Ordered: 11/25/2024 End: 12-23-2024 Hemoglobin A1c/Hemoglobin.total in Blood [facility] [employer] Comment on above: Once for 1 Occurrenc es starting 12/23/2024 until 12/23/2024 End: 12-23-2024 Hepatitis B Surface Antigen [facility] [employer] Comment on above: Once for 1 Occurrenc es starting 12/23/2024 until 12/23/2024 Hepatitis B virus urbano rface Ag [Presence] in Serum or Plasma by Immunoassay Hepatitis B surface antigen Lab Routine Missed menses , unspecified gestational age Ordered: 11/25/2024 [facility] Comment on above: Ordered: 11/25/2024 End: 12-23-2024 Hepatitis C Antibody [facility] [employer] Work Phone: Comment on above: Once for 1 Occurrenc es starting 12/23/2024 until 12/23/2024 Hepatitis C virus Ab [Presence] in Serum or Plasma by Immunoassay Hepatitis C antibody Lab Routine Missed menses , unspecified gestational age Ordered: 11/25/2024 [facility] Comment on above: Ordered: 11/25/2024 End: 12-23-2024 HIV Screen [facility] [employer] Comment on above: Once for 1 Occurrenc [...] for 1 Occurrences starting 01/11/2021 until 01/11/2021 [employer] Phone: Comment on above: Once for 1 Occurrenc es starting 01/11/2021 until 01/11/2021 Prothrombin Gene Mutation Prothr ombin Gene Mutation Lab Routine 01/11/2021 1:58 PM [employer] Phone: Reagin Ab [Presence] in Serum by RPR RPR Lab Routine Missed menses , unspecified gestational age Ordered: 11/25/2024 [facility] [employer] Comment on above: Ordered: 11/25/2024 Rubella antibody, IgG Rubella an tibody, IgG Lab Routine Missed menses , unspecified gestational age Ordered: 11/25/2024 [facility] Comment on above: Ordered: 11/25/2024 End: 12-23-2024 Rubella antibody, IgG [employer] Comment on above: Once for 1 Occurrenc es starting 12/23/2024 until 12/23/2024 SURESWAB(R) ADVANCED VAGINITIS PLUS, TMA SURESWAB(R) ADVANCED VAGINITIS PLUS, TMA Pathology and Cytology Routine Vaginal discharge Ordered: 01/20/2025 [facility] [employer] Comment on above: Ordered: 01/20/2025 End: 01-11-2021 T. pallidum Ab T. pallidum Ab Lab Routine Once for 1 Occurrences starting 01/11/2021 until 01/11/2021 [employer] Phone: Comment on above: Once for 1 Occurrenc es starting 01/11/2021 until 01/11/2021 T. pallidum Ab T. pallidum Ab L ab Routine 01/11/2021 1:58 PM [employer] Phone: End: 12-23-2024 T. pallidum Ab [facility] [employer] Comment on above: Once for 1 Occurrenc [...] due to excess calories affecting , antepartum ([facility]) Bipolar disorder, in full remission, most recent episode depressed 1 Occurrences starting 02/08/2025 until 02/08/2026 [employer] Work Phone: Comment on above: 1 Occurrences starti ng 02/08/2025 until 02/08/2026 End: 01-11-2021 Varicella Zoster Antibody, IgG Varicella Zoster Antibody, IgG Lab Routine Once for 1 Occurrences starting 01/11/2021 until 01/11/2021 [employer] Work Phone: Comment on above: Once for 1 Occurrenc es starting 01/11/2021 until 01/11/2021 Varicella Zoster Ant ibody, IgG Varicella Zoster Antibody, IgG Lab Routine 01/11/2021 1:58 PM EST [employer] Work Phone: End: 01-11-2021 Vitamin D 25 Hydroxy Vitamin D 25 Hydroxy Lab Routine Once for 1 Occurrences starting 01/11/2021 until 01/11/2021 [employer] Work Phone: Comment on above: Once for 1 Occurrenc es starting 01/11/2021 until 01/11/2021 Vitamin D 25 Hydroxy [facility] Work Phone: End: 06-25-2021 Vitamin D 25 Hydroxy Vitamin D 25 Hydroxy Lab Routine Once for 1 Occurrences starting 06/25/2021 until 06/25/2021 [employer] Work Phone: Comment on above: Once for 1 Occurrenc es starting 06/25/2021 until 06/25/2021 Immunizations Immunization Date Immunization Notes Care Provider [facility] 08-03-2024 influenza virus vaccine, unspecified formulation Christy Prado LPN [employer] 09-08-2023 influenza virus vaccine, unspecified formulation Jaida Chadwick MD Work Phone: [employer] Payers Date Payer Category Payer [facility] BCBS [id number] 2024 Self-pay 2020 Blue Cross Blue [facility] [employer] - Other [id number] 2014 Unknown [id number] [id number]. 2.7.3.724147.315 1993 Unknown [id number] 2.16840.1.322235.3.579. 2.174 1993 Unknown [id number] 2.16840.1.393782.3.579. 2.174 1993 Unknown [id number] 2.16840.1.608394.3.579. 2.174 1993 Unknown [id number] 2.16840.1.277779.3.579. 2.174 1993 Unknown [id number] 2.16840.1.286336.3.579. 2.1286 1993 Unknown [id number] 2.16840.1.718513.3.579. 2.1286 1993 Unknown [id number] 2.16.840.1.025645.3.579. 2.1286 1993 Unknown [id number] 2.16840.1.475817.3.579. 2.128 1993 Unknown [id number] 2.16.840.1.621493.3.579. 2.1285 1993 Unknown [id number] 2.16.840.1.751554.3.579. 2.1285 1993 Unknown [id number] 2.16.840.1.933328.3.579. 2.1285 1993 Unknown [id number] 2.16.840.1.004572.3.579. 2.1285 1993 Unknown [id number] 2.16.840.1.711133.3.579. 2.1285 1993 Unknown [id number] 2.16.840.1.131659.3.579. 2.1285 1993 Unknown [id number] 2.16.840.1.163992.3.579. 2. 1993 Unknown [id number] 2.16.840.1.344603.3.579. 2. 1993 Unknown [id number] 2.16.840.1.507503.3.579. 2. 1993 Unknown [id number] 2.16.840.1.228776.3.579. 2. 1993 Unknown [id number] 2.16.840.1.872026.3.579. 2.1258 1993 Unknown [id number] 2.16.840.1.483508.3.579. 2.1258 1993 Unknown [id number] 2.16.840.1.277838.3.579. 2.1258 1993 Unknown [id number] 2.16.840.1.146809.3.579. 2.1258 1993 Unknown [id number] 2.16.840.1.812765.3.579. 2.1258 1993 Unknown [id number] 2.16.840.1.821682.3.579. 2.9 1993 Unknown [id number] 2.16.840.1.663232.3.579. 2.1258 1993 Unknown [id number] 2.16.840.1.912686.3.579. 2.9 1993 Unknown [id number] 2.16.840.1.199770.3.579. 2.1258 1993 Unknown [id number] 2.16.840.1.873517.3.579. 2.1258 1993 Unknown [id number] 2.16.840.1.732007.3.579. 2.1258 1993 Unknown [id number] 2.16.840.1.277865.3.579. 2.1258 1993 Unknown [id number] 2.16.840.1.302442.3.579. 2.1258 1993 Unknown [id number] 2.16.840.1.950547.3.579. 2.1259 Private Health Insurance [id number] Unknown [id number] 2.16.840.1.327138.3.579. 2.531 Social History Date Type Detail Facility Tobacco smoking stat [facility] Unknown if ever smoked [employer] Phone: Start: 1995 Sex Assigned At Not on file [employer] [facility] Start: 1995 Sex Assigned At Female F [facility] Start: 02-20-2013 End: 11-15-2020 History of Social function [employer] Start: 02-20-2013 End: 11-15-2020 [facility] Start: 11-24-2024 Gender identity Identifies as female gender (finding) [facility] Start: 06-06-2015 End: 12-29-2024 Sex Female (finding) [facility] Start: 11-24-2020 End: 02-08-2025 Tobacco smoking status NHIS Ex-smoker [facility] Start: 11-03-2020 End: 11-03-2010 History of tobacco use Current smoker [facility] Start: 11-03-2020 End: 11-03-2010 History of tobacco use Cigarette Smoker [facility] Start: 11-24-2020 End: 02-08-2025 Tobacco use and exposure Smokeless tobacco non-user [facility] Start: 12-30-2024 End: 02-08-2025 Alcoholic beverage intake Ex-drinker (finding) [facility] Childcare Unknown [facility] Sexual Orientation [facility] Medical Equipment Procedure Code Equipment Code Equipment Origin al Text Equipment Identifier Dates [id number] Start: 12-23-2024 End: 01-22-2025 1 each by In Vit ro route Daily Use to check FSBS four times daily [id number] Start: 12-23-2024 End: 01-22-2025 Use 2 syringes i n the morning for insulin dosage and 2 syringes in the Evening for insulin dosage. Total of 4 syringes daily needed. [id number] Start: 01-07-2025 Goals Date Patient Goal Desired Activity /State Personal health goal Clinical Notes 11-25-2024 to 06-13-2025 Telephone Encounter - Sonya Lomax RN - 06/13/2025 1:25 PM EDTTelephone Encounter - Sonya Lomax RN - 06/13/2025 1:25 PM LEELEE Solis - 06/13/2025 8:30 AM LEELEE Solis - 06/06/2025 8:40 AM EDT Note Date & Type Note Facility 06-13-2025 Miscellaneous Notes Called pt and dicussed her blood sugars and she has all been in target since 2 days after her last adjustment on the . She will be induced on Friday night the . Fasting this morning was 85. [facility]-13-2025 Telephone encounter Note Called pt and dicussed her blood sugars and she has all been in target since 2 days after her last adjustment on the . She will be induced on Friday night the . [facility] [employer] [facility] [employer] 06-13-2025 History of Present illness Narrative Reason for Appointment: Patient ID: Fannie Conley is a 29 y.o. female who presents for No chief complaint on file. Patient presents today for Return OB appointment. MEDICATIONS Current Outpatient Medications Medication Instructions Alcohol Swabs (Alcohol Prep Pad) 70 % pads 1 Pad, Topical, Daily, Use four times daily to check FSBS. Blood Glucose Monitoring Suppl (D-Futon Glucometer) w/Device kit 1 kit, Does not [...] Medical History: Diagnosis Date SAB (spontaneous ) ([facility]) 10/2021 HISTORY PAST MEDICAL HISTORY SOCIAL HISTORY Past Medical History: Diagnosis Date SAB (spontaneous ) ([facility]) 10/2021 Social History Tobacco Use Smoking [...] Vitals: Estimated body mass index is 43.9 kg/m as calculated from the following: Height as of 04/18/25: 5' 2 . Weight as of this encounter: 240 lb. BP: 120/78 No LMP recorded. Patient is . ASSESSMENT & PLAN ICD-10-CM 1. Excessive growth affecting management of in third trimester, single or unspecified fetus ([facility]) O36.63X0 US OB follow up transabdominal approach 2. 38 weeks gestation of ([facility]) Z3A.38 POCT urinalysis dipstick manually resulted 3. Third trimester ([facility]) Z34.93 POCT urinalysis dipstick manually resulted 4. Conceived by in vitro fertilization Z78.9 POCT urinalysis dipstick manually resulted 5. Factor 5 Leiden mutation, heterozygous ([facility]) D68.51 POCT urinalysis dipstick manually resulted 6. Insulin controlled gestational diabetes mellitus (GDM) during , antepartum ([facility]) O24.414 POCT urinalysis dipstick manually resulted Return [...] documented in this encounter [facility] 06-10-2025 Miscellaneous Notes Summary: MFM Blood Glucose Log & Insulin Dose Change Called. No answer. Message left inquiring whether received message earlier this week regarding Eva Mccann CNM reviewed blood glucose log and increased Lantus evening dose to 29 Units daily. Requested return call or message to confirm received this insulin dose change. MyChart message also sent. documented in this encounter [facility] 06-10-2025 Telephone encounter Note Summary: MFM Blood Glucose Log & Insulin Dose Change Called. No answer. Message left inquiring whether received message earlier this week regarding Eva Mccann CNM reviewed blood glucose log and increased Lantus evening dose to 29 Units daily. Requested return call or message to confirm received this insulin dose change. MyChart message also sent. [facility] 06-07-2025 Miscellaneous Notes Called pt to discuss her insulin change for this week and received voicemail. Left her a message that Eva Mccann reviewed her blood sugars and would like her to increase her lantus in the evening to 29 units. Asked her to please call back to verify that she got this new insulin change for this week. documented in this encounter [facility] 06-07-2025 Telephone encounter Note Called pt to discuss her insulin change for this week and received voicemail. Left her a message that Eva Mccann reviewed her blood sugars and would like her to increase her lantus in the evening to 29 units. Asked her to please call back to verify that she got this new insulin change for this week. [facility] 06-06-2025 History of Present illness Narrative Reason for Appointment: Patient ID: Fannie Conley is a 29 y.o. female who presents for Routine Visit Patient presents today for Return OB appointment. MEDICATIONS Current Outpatient Medications Medication Instructions Alcohol Swabs (Alcohol Prep Pad) 70 % pads 1 Pad, Topical, Daily, Use four times daily to check FSBS. Blood Glucose Monitoring Suppl ([employer]-Futon Glucometer) w/Device kit 1 kit, Does not [...] Medical History: Diagnosis Date SAB (spontaneous ) ([facility]) 10/2021 HISTORY PAST MEDICAL HISTORY SOCIAL HISTORY Past Medical History: Diagnosis Date SAB (spontaneous ) ([facility]) 10/2021 Social History Tobacco Use Smoking [...] Vitals: Estimated body mass index is 43.86 kg/m as calculated from the following: Height as of 04/18/25: 5' 2 . Weight as of this encounter: 239 lb 12.8 oz. BP: 124/78 No LMP recorded. Patient is . ASSESSMENT & PLAN ICD-10-CM 1. Third trimester ([facility]) Z34.93 2. 37 weeks gestation of ([facility]) Z3A.37 Return OB: Patient presents today for [...] documented in this encounter [facility] 05-30-2025 Miscellaneous Notes Called pt due to 3 elevations. Received voicemail. Left her a message that her numbers looked good. She had 3 elevations no pattern noted and one night she forgot her insulin. No change for this week and she will send in new blood sugars next week. documented in this encounter [facility] [employer] 05-30-2025 Telephone encounter Note Called pt due to 3 elevations. Received voicemail. Left her a message that her numbers looked good. She had 3 elevations no pattern noted and one night she forgot her insulin. No change for this week and she will send in new blood sugars next week. [facility] 05-30-2025 History of Present illness Narrative Reason for Appointment: Patient ID: Fannie Conley is a 29 y.o. female who presents for Routine Visit Patient presents today for Return OB appointment. MEDICATIONS Current Outpatient Medications Medication Instructions Alcohol Swabs (Alcohol Prep Pad) 70 % pads 1 Pad, Topical, Daily, Use four times daily to check FSBS. Blood Glucose Monitoring Suppl ([employer]-Futon Glucometer) w/Device kit 1 kit, Does not [...] Medical History: Diagnosis Date SAB (spontaneous ) ([facility]) 10/2021 HISTORY PAST MEDICAL HISTORY SOCIAL HISTORY Past Medical History: Diagnosis Date SAB (spontaneous ) ([facility]) 10/2021 Social History Tobacco Use Smoking status: Not on file Smokeless tobacco: Not on file Substance Use Topics Alcohol use: Not on file Drug use: Not on file FAMILY HISTORY No family history on file. SURGICAL HISTORY No past surgical history on file. REVIEW OF SYSTEMS Review of Systems: Review of Systems HENT: Right ear with hearing loss; no longer with complaints of pain and has completed oral antibiotic OBJECTIVE Objective: Physical Exam Constitutional: Appearance: Normal appearance. She is well-developed. HENT: Head: Comments: Right ear effusion Cardiovascular: Rate and Rhythm: Normal rate and [...] nursing note reviewed. Exam conducted with a oreman present. Vitals: Estimated body mass index is 43.16 kg/m as calculated from the following: Height as of 04/18/25: 5' 2 . Weight as of this encounter: 236 lb. BP: 130/82 No LMP recorded. Patient is . ASSESSMENT & PLAN ICD-10-CM 1. Right otitis media, unspecified otitis media type H66.91 ofloxacin (Floxin) 0.3 % otic solution 2. Third trimester ([facility]) Z34.93 POCT urinalysis dipstick manually resulted CANCELED: CULTURE, GROUP B STREP WITH SUSCEPTIBLITY CANCELED: CULTURE, GROUP B STREP WITH SUSCEPTIBLITY 3. 36 weeks gestation of ([facility]) Z3A.36 Return OB: Patient presents today for a routine obstetrics appointment. Patient is currently 36w3d . Patient states she is doing well but has complaints of being tired due to current . Patient has verbalizes frequent movement. labor precautions was discussed/given and patient was instructed to perform kick counts three times a day. Orders Placed This Encounter Procedures POCT urinalysis dipstick manually resulted Follow Up: Patient is to return to office in 1 week for routine OB appointment. Patient with right ear effusion will send antibiotic drops to pharmacy. She continues with NST and BPP and doing well. Continues to transmit glucose to [facility] and no need for change in Insulin at this time. Documented by George Scherer NP on behalf of: Cain Donaldson DO documented in this encounter [facility] 05-27-2025 Hospital Discharge instructions Patient Education 05/27/2025 09:59:28 Dietary Guidelines to Help Prevent Kidney Stones Dietary Guidelines to Help Prevent Kidney Stones Kidney stones are deposits of minerals and salts that form inside your kidneys. Your risk of developing kidney stones may be greater depending on your diet, your lifestyle, the medicines you take, and whether you have certain medical conditions. Most people can lower their risks of developing kidney stones by following these dietary guidelines. Your dietitian may give you more specific instructions depending on your overall health and the type of kidney stones you tend to develop. What are tips for following this plan? Reading food labels Choose foods with no salt added or low-salt labels. Limit your salt (sodium) intake to less than 1,500 mg a day. Choose foods with calcium for each meal and snack. Try to eat about 300 mg of calcium at each meal. Foods that contain 200 500 mg of calcium a serving include: ?8 oz (237 mL) of milk, lcdjouk-moxsbicxiyjb-gcxgy milk, and calcium-fortifiedfruit juice. Calcium-fortified means that calcium has been added to these drinks. ?8 oz (237 mL) of kefir, yogurt, and soy yogurt. ?4 oz (114 g) of tofu. ?1 oz (28 g) of cheese. ?1 cup (150 g) of dried figs. ?1 cup (91 g) of cooked broccoli. ?One 3 oz (85 g) can of sardines or mackerel. Most people need 1,000 1,500 mg of calcium a day. Talk to your dietitian about how much calcium is recommended for you. Shopping Buy plenty of fresh fruits and vegetables. Most people do not need to avoid fruits and vegetables, even if these foods contain nutrients that may contribute to kidney stones. When shopping for convenience foods, choose: ?Whole pieces of fruit. ?Pre-made salads with dressing on the side. ?Low-fat fruit and yogurt smoothies. Avoid buying frozen meals or prepared deli foods. These can be high in sodium. Look for foods with live cultures, such as yogurt and kefir. Choose high-fiber grains, such as whole-wheat breads, oat bran, and wheat cereals. Cooking Do not add salt to food when cooking. Place a salt shaker on the table and allow each person to add their own salt to taste. Use vegetable protein, such as beans, textured vegetable protein (TVP), or tofu, instead of meat in pasta, casseroles, and soups. Meal planning Eat less salt, if told by your dietitian. To do this: ?Avoid eating processed or pre-made food. ?Avoid eating fast food. Eat less animal protein, including cheese, meat, poultry, or fish, if told by your dietitian. To do this: ?Limit the number of times you have meat, poultry, fish, or cheese each week. Eat a diet free of meat at least 2 days a week. ?Eat only one serving each day of meat, poultry, fish, or seafood. ?When you prepare animal proteins, cut pieces into small portion sizes. For most meat and fish, one serving is about the size of the palm of your hand. Eat at least five servings of fresh fruits and vegetables each day. To do this: ?Keep fruits and vegetables on hand for snacks. ?Eat one piece of fruit or a handful of berries with breakfast. ?Have a salad and fruit at lunch. ?Have two kinds of vegetables at dinner. You may be told to limit foods that are high in a substance called oxalate. These include: ?Spinach (cooked), rhubarb, beets, sweet potatoes, and Palestinian chard. ?Peanuts. ?Potato chips, gambian fries, and baked potatoes with skin on. ?Nuts and nut products. ?Chocolate. If you regularly take a diuretic medicine, make sure to eat at least 1 or 2 servings of fruits or vegetables that are high in potassium each day. These include: ?Avocado. ?Banana. ?[place], prune, carrot, or tomato juice. ?Baked potato. ?Cabbage. ?Beans and split peas. Lifestyle Drink enough fluid to keep your urine pale yellow. This is the most important thing you can do. Spread your fluid intake throughout the day. If you drink alcohol: ?Limit how much you have to: ?0 1 drink a day for women who are not . ?0 2 drinks a day for men. ?Know how much alcohol is in your drink. In the [place] one drink equals one 12 oz bottle of beer (355 mL), one 5 oz glass of wine (148 mL), or one 1 oz glass of hard liquor (44 mL). Lose weight if told by your health care provider. Work with your dietitian to find an eating plan and weight loss strategies that work best for you. General information Talk to your health care provider and dietitian about taking daily supplements. Depending on your health and the cause of your kidney stones, you may be told: ?Do not take high-dose supplements of vitamin C (1,000 mg a day or more). ?To take a calcium supplement. ?To take a daily probiotic supplement. ?To take other supplements such as magnesium, fish oil, or vitamin B6. Take pirm-zef-bjjfmvb and prescription medicines only as told by your health care provider. These include supplements. What foods should I limit? Limit your intake of the following foods, or eat them as told by your dietitian. Vegetables Spinach. Rhubarb. Beets. Canned vegetables. Pickles. Olives. Baked potatoes with skin. Grains Wheat bran. Baked goods. Salted crackers. Cereals high in sugar. Meats and other proteins Nuts. Nut butters. Large portions of meat, poultry, or fish. Salted, precooked, or cured meats, such as sausages, meat loaves, and hot dogs. Dairy Cheeses. Beverages Regular soft drinks. Regular vegetable juice. Seasonings and condiments Seasoning blends with salt. Salad dressings. Soy sauce. Ketchup. Barbecue sauce. Other foods Canned soups. Canned pasta sauce. Casseroles. Pizza. Lasagna. Frozen meals. Potato chips. [place] Islander fries. The items listed above may not be a complete list of foods and beverages you should limit. Contact a dietitian for more information. What foods should I avoid? Talk to your dietitian about specific foods you should avoid based on the type of kidney stones you have and your overall health. Fruits Grapefruit. The item listed above may not be a complete list of foods and beverages you should avoid. Contact a dietitian for more information. Summary Kidney stones are deposits of minerals and salts that form inside your kidneys. You can lower your risk of kidney stones by making changes to your diet. The most important thing you can do is drink enough fluid. Drink enough fluid to keep your urine pale yellow. Talk to your dietitian about how much calcium you should have each day, and eat less salt and animal protein as told by your dietitian. This information is not intended to replace advice given to you by your health care provider. Make sure you discuss any questions you have with your health care provider. Document Revised: 01/30/2023 Document Reviewed: 01/30/2023 Elsevier Patient Education 2023 [employer]!. Follow [facility] 05/16/2025 14:17:00 With:Jonathan GORE, ONEIDA Navarro, URO Address: When: Unknown [facility] 05-27-2025 Note Patient Education Nephrology Dietary Guidelines to Help Prevent Kidney Stones Kidney stones are deposits of minerals and salts that form inside your kidneys. Your risk of developing kidney stones may be greater depending on your diet, your lifestyle, the medicines you take, and whether you have certain medical conditions. Most people can lower their risks of developing kidney stones by following these dietary guidelines. Your dietitian may give you more specific instructions depending on your overall health and the type of kidney stones you tend to develop. What are tips for following this plan? Reading food labels ??? Choose foods with no salt added or low-salt labels. Limit your salt (sodium) intake to less than 1,500 mg a day. ??? Choose foods with calcium for each meal and snack. Try to eat about 300 mg of calcium at each meal. Foods that contain 200?500 mg of calcium a serving include: ? 8 oz (237 mL) of milk, vdoexmi-cxmmoqdmuowo-hjykg milk, and calcium-fortifiedfruit juice. Calcium-fortified means that calcium has been added to these drinks. ? 8 oz (237 mL) of kefir, yogurt, and soy yogurt. ? 4 oz (114 g) of tofu. ? 1 oz (28 g) of cheese. ? 1 cup (150 g) of dried figs. ? 1 cup (91 g) of cooked broccoli. ? One 3 oz (85 g) can of sardines or mackerel. Most people need 1,000?1,500 mg of calcium a day. Talk to your dietitian about how much calcium is recommended for you. Shopping ??? Buy plenty of fresh fruits and vegetables. Most people do not need to avoid fruits and vegetables, even if these foods contain nutrients that may contribute to kidney stones. ??? When shopping for convenience foods, choose: ? Whole pieces of fruit. ? Pre-made salads with dressing on the side. ? Low-fat fruit and yogurt smoothies. ??? Avoid buying frozen meals or prepared deli foods. These can be high in sodium. ??? Look for foods with live cultures, such as yogurt and kefir. ??? Choose high-fiber grains, such as whole-wheat breads, oat bran, and wheat cereals. Cooking ??? Do not add salt to food when cooking. Place a salt shaker on the table and allow each person to add their own salt to taste. ??? Use vegetable protein, such as beans, textured vegetable protein (TVP), or tofu, instead of meat in pasta, casseroles, and soups. Meal planning ??? Eat less salt, if told by your dietitian. To do this: ? Avoid eating processed or pre-made food. ? Avoid eating fast food. ??? Eat less animal protein, including cheese, meat, poultry, or fish, if told by your dietitian. To do this: ? Limit the number of times you have meat, poultry, fish, or cheese each week. Eat a diet free of meat at least 2 days a week. ? Eat only one serving each day of meat, poultry, fish, or seafood. ? When you prepare animal proteins, cut pieces into small portion sizes. For most meat and fish, one serving is about the size of the palm of your hand. ??? Eat at least five servings of fresh fruits and vegetables each day. To do this: ? Keep fruits and vegetables on hand for snacks. ? Eat one piece of fruit or a handful of berries with breakfast. ? Have a salad and fruit at lunch. ? Have two kinds of vegetables at dinner. ??? You may be told to limit foods that are high in a substance called oxalate. These include: ? Spinach (cooked), rhubarb, beets, sweet potatoes, and Palestinian chard. ? Peanuts. ? Potato chips, gambian fries, and baked potatoes with skin on. ? Nuts and nut products. ? Chocolate. ??? If you regularly take a diuretic medicine, make sure to eat at least 1 or 2 servings of fruits or vegetables that are high in potassium each day. These include: ? Avocado. ? Banana. ? [place], prune, carrot, or tomato juice. ? Baked potato. ? Cabbage. ? Beans and split peas. Lifestyle ??? Drink enough fluid to keep your urine pale yellow. This is the most important thing you can do. Spread your fluid intake throughout the day. ??? If you drink alcohol: ? Limit how much you have to: ? 0?1 drink a day for women who are not . ? 0?2 drinks a day for men. ? Know how much alcohol is in your drink. In the [place] one drink equals one 12 oz bottle of beer (355 mL), one 5 oz glass of wine (148 mL), or one 1? oz glass of hard liquor (44 mL). ??? Lose weight if told by your health care provider. Work with your dietitian to find an eating plan and weight loss strategies that work best for you. General information ??? Talk to your health care provider and dietitian about taking daily supplements. Depending on your health and the cause of your kidney stones, you may be told: ? Do not take high-dose supplements of vitamin C (1,000 mg a day or more). ? To take a calcium supplement. ? To take a daily probiotic supplement. ? To take other supplements such as magnesium, fish oil, or vitamin B6. ??? Take iebi-jbv-fsehhqe and prescription medicines only as told by your health (more content not included)... [facility] 05-26-2025 History of Present illness Narrative Reason for Appointment: Patient ID: Fannie Conley is a 29 y.o. female who [...] Medical History: Diagnosis Date SAB (spontaneous ) ([facility]) 10/2021 HISTORY PAST MEDICAL HISTORY SOCIAL HISTORY Past Medical History: Diagnosis Date SAB (spontaneous ) ([facility]) 10/2021 Social History Tobacco Use Smoking [...] Vitals: Estimated body mass index is 43.07 kg/m as calculated from the following: Height as of 04/18/25: 5' 2 . Weight as of this encounter: 235 lb 8 oz. BP: 130/84 No LMP recorded. Patient is . ASSESSMENT & PLAN ICD-10-CM 1. Third trimester ([facility]) Z34.93 CULTURE, GROUP B STREP WITH SUSCEPTIBLITY CULTURE, GROUP B STREP WITH SUSCEPTIBLITY POCT urinalysis dipstick manually resulted 2. 36 weeks gestation of ([facility]) Z3A.36 Return OB: Patient presents today for [...] routine OB appointment. documented in this encounter [facility] 05-23-2025 History of Present illness Narrative Maternal- Medicine Consultation VIDEO Patient is present at home, provider present at [facility] HISTORY OF PRESENT ILLNESS: Fannie Conley is a 29 y.o. female at 35w2d due on Estimated Date of Delivery: 06/25/25 complicated by prediabetes with early onset GDM, PCOS, Heterozygous Factor V Leiden, h/o bipolar, IVF . Patient is feeling well today. She denies contractions, vaginal bleeding, leaking fluid. She appreciates movement. Patient denies headache, visual symptoms, right upper abdominal pain, increase in edema, SOB, chest pain. BG log review: [...] each meal., Disp: , Rfl: blood-glucose meter [facility], 4 (four) times a day. Use to [...] route., Disp: , Rfl: lancets (LANCETS,ULTRA THIN) [facility], Use to check blood sugar 4 times daily. Fasting in the morning, and 1 hour after each meal., Disp: , Rfl: PNV no.153/FA/om3/dha/epa/fish ( GUMMIES ORAL), Take 2 tablets by mouth in the morning., Disp: , Rfl: LABS: Lab Results Component Value Date TSH 3.31 11/24/2020 No components found for: [facility] Lab Results Component Value Date CREATININE [...] Delivery recommendations : - Recommend delivery at [id number] - Discuss delivery if estimated weight is [...] values to us weekly by e-mail to: [email or web address] or by fax to: [phone] Devika Luu PA-C Maternal- Medicine Office phone: [phone] Devika Luu PA-C 05/23/25 9592 documented in this encounter [facility] 05-17-2025 Miscellaneous Notes Called pt to let her know that Devika Luu reviewed her blood sugars and did not want to make any changes for this week there was not pattern to change. She will stay on her 25 units of lantus in the evening for this week. Pt to send in new blood sugars next week. documented in this encounter [facility] 05-17-2025 Telephone encounter Note Called pt to let her know that Devika Luu reviewed her blood sugars and did not want to make any changes for this week there was not pattern to change. She will stay on her 25 units of lantus in the evening for this week. Pt to send in new blood sugars next week. [facility] 05-16-2025 History of Present illness Narrative Reason for Appointment: Patient ID: Fannie Conley is a 29 y.o. female who presents for Routine Visit Patient presents today for Return OB appointment. MEDICATIONS Current Outpatient Medications Medication Instructions Alcohol Swabs (Alcohol Prep Pad) 70 % pads 1 Pad, Topical, Daily, Use four times daily to check FSBS. Blood Glucose Monitoring Suppl ([employer] Glucometer) w/Device kit 1 kit, Does not [...] Medical History: Diagnosis Date SAB (spontaneous ) ([facility]) 10/2021 HISTORY PAST MEDICAL HISTORY SOCIAL HISTORY Past Medical History: Diagnosis Date SAB (spontaneous ) ([facility]) 10/2021 Social History Tobacco Use Smoking [...] nursing note reviewed. Exam conducted with a oreman present. Vitals: Estimated body mass index is 43.71 kg/m as calculated from the following: Height as of 04/18/25: 5' 2 . Weight as of this encounter: 239 lb. BP: 120/70 No LMP recorded. Patient is . ASSESSMENT & PLAN ICD-10-CM 1. 34 weeks gestation of ([facility]) Z3A.34 POCT urinalysis dipstick manually resulted Urine culture 2. Third trimester ([facility]) Z34.93 POCT urinalysis dipstick manually resulted 3. Conceived by in vitro fertilization Z78.9 Urine culture 4. Factor 5 Leiden mutation, heterozygous ([facility]) D68.51 5. Insulin controlled gestational diabetes mellitus (GDM) during , antepartum ([facility]) O24.414 Patient presents today for a routine [...] documented in this encounter [facility] 05-11-2025 Miscellaneous Notes Left a voicemail regarding her blood sugar log from 05/02/25 to 05/08/25. Dr. Askew reviewed it, and there are no medication changes this week. Continue 25 units of lantus in the evening. Patient to continue sending weekly BG logs. Will send MyChart as well. [facility] Telephone encounter Note Left a voicemail regarding her blood sugar log from 05/02/25 to 05/08/25. Dr. Askew reviewed it, and there are no medication changes this week. Continue 25 units of lantus in the evening. Patient to continue sending weekly BG logs. Will send MyChart as well. [facility] 05[facility]03[facility]25 Miscellaneous Notes Called regarding blood sugar logs from 04/25/2025-05/01/2025, she had one elevated fasting blood sugar and two elevated blood sugars after lunch. Fannie could account for why her blood sugars were elevated after her meals. Provided encouragement. Continue to monitor carbohydrates and blood sugars. documented in this encounter [facility] 05-03-2025 Telephone encounter Note Called regarding blood sugar logs from 04/25/2025-05/01/2025, she had one elevated fasting blood sugar and two elevated blood sugars after lunch. Fannie could account for why her blood sugars were elevated after her meals. Provided encouragement. Continue to monitor carbohydrates and blood sugars. [facility] 05-03-2025 History of Present illness Narrative Reason for Appointment: Patient ID: Fannie Conley is a 29 y.o. female who [...] Medical History: Diagnosis Date SAB (spontaneous ) ([facility]) 10/2021 HISTORY PAST MEDICAL HISTORY SOCIAL HISTORY Past Medical History: Diagnosis Date SAB (spontaneous ) ([facility]) 10/2021 Social History Tobacco Use Smoking [...] PLAN ICD-10-CM 1. size inconsistent with dates ([facility]) O26.849 US OB follow up transabdominal approach 2. Third trimester ([facility]) Z34.93 POCT urinalysis dipstick manually resulted 3. 32 weeks gestation of ([facility]) Z3A.32 4. Conceived by in vitro fertilization Z78.9 5. Factor 5 Leiden mutation, heterozygous ([facility]) D68.51 6. Insulin controlled gestational diabetes mellitus (GDM) during , antepartum ([facility]) O24.414 Return OB: Patient presents today for [...] documented in this encounter [facility] 04-25-2025 History of Present illness Narrative Maternal- Medicine Consultation VIDEO Patient is present at home, provider present at [facility] HISTORY OF PRESENT ILLNESS: Fannie Conley is a 29 y.o. female at [...] on right. She is following urology through [facility]. Her pain and symptoms have improved, are [...] each meal., Disp: , Rfl: blood-glucose meter [facility], 4 (four) times a day. Use to [...] route., Disp: , Rfl: lancets (LANCETS,ULTRA THIN) [facility], Use to check blood sugar 4 times daily. Fasting in the morning, and 1 hour after each meal., Disp: , Rfl: PNV no.153/FA/om3/dha/epa/fish ( GUMMIES ORAL), Take 2 tablets by mouth in the morning., Disp: , Rfl: LABS: Lab Results Component Value Date TSH 3.31 11/24/2020 No components found for: [facility] Lab Results Component Value Date CREATININE [...] hypoglycemia, and examples of treatment of hypoglycemia (15 rule). Discussed her current diet and her [...] Delivery recommendations : - Recommend delivery at [id number] - Discuss delivery if estimated weight is [...] values to us weekly by e-mail to: [email or web address] or by fax to: [phone] Devika Luu PA-C Maternal- Medicine Office phone: [phone] Devika Luu PA-C 04/25/25 1140 documented in this encounter [facility] 04-25-2025 Miscellaneous Notes EMBOSSED OR IMPRESSED LETTERING PAINTER CALLED PATIENT. NO ANSWER. LEFT VM ASKING THE PATIENT TO EMAIL US HER BLOOD GLUCOSE LOGS FOR HER UPCOMING APPOINTMENT WITH DEVIKA MARTINEZ. documented in this encounter [facility] 04-25-2025 Telephone encounter Note EMBOSSED OR IMPRESSED LETTERING PAINTER CALLED PATIENT. NO ANSWER. LEFT VM ASKING THE PATIENT TO EMAIL US HER BLOOD GLUCOSE LOGS FOR HER UPCOMING APPOINTMENT WITH DEVIKA MARTINEZ. [facility] 04-20-2025 Miscellaneous Notes Left message for patient that MFM provider reviewed blood sugar logs and no changes are needed at this time. Call back number provided. documented in this encounter [facility] 04-20-2025 Telephone encounter Note Left message for patient that MFM provider reviewed blood sugar logs and no changes are needed at this time. Call back number provided. [facility] 04-18-2025 History of Present illness Narrative Reason for Appointment: Patient ID: Fannie Conley is a 29 y.o. female who presents for Routine Visit Patient presents today for Return OB appointment. MEDICATIONS Current Outpatient Medications Medication Instructions Alcohol Swabs (Alcohol Prep Pad) 70 % pads 1 Pad, Topical, Daily, Use four times daily to check FSBS. Blood Glucose Monitoring Suppl ([employer] ([employer] Glucometer) w/Device kit 1 kit, Does not [...] Medical History: Diagnosis Date SAB (spontaneous ) ([facility]) 10/2021 HISTORY PAST MEDICAL HISTORY SOCIAL HISTORY Past Medical History: Diagnosis Date SAB (spontaneous ) ([facility]) 10/2021 Social History Tobacco Use Smoking [...] nursing note reviewed. Exam conducted with a oreman present. Vitals: There is no height or weight on file to calculate BMI. BP: No LMP recorded. Patient is . ASSESSMENT & PLAN ICD-10-CM 1. Third trimester ([facility]) Z34.93 2. 30 weeks gestation of ([facility]) Z3A.30 Return OB: Patient presents today [...] pt to discuss her insulin change. Devika Luu reviewed her blood sugars and would like her to increase her lantus in the evening to 25 units. Pt verbalized understanding and will start tonight. She will send in new blood sugars next week. documented in this encounter [facility] 04-12-2025 Telephone encounter Note Called pt to discuss her insulin change. Devika Luu reviewed her blood sugars and would like her to increase her lantus in the evening to 25 units. Pt verbalized understanding and will start tonight. She will send in new blood sugars next week. [facility] 04-11-2025 History of Present illness Narrative BG levels evaluated - insulin adjusted Devika Luu PA-C 04/11/25 1234 documented in this encounter [facility] 03-30-2025 History of Present illness Narrative REASON FOR OFFICE VISIT: Video Visit via Real-time Synchronous Audiovisual Provider Location: [facility] AT [address] [address] Patient Location: Patient's home Video [...] that there are some limitations compared to pjdv-pd-kgnc evaluations. The patient consented to the presence [...] before transfer HISTORY OF PRESENT ILLNESS: Fannie Conley is a pleasant 29 y.o. at 27w4d due on Estimated Date of Delivery: 06/25/25. Currently the patient has no complaints. The patient denies MATA, nausea, vomiting, abdominal pain, vaginal bleeding, contractions, leaking fluid or chest pain. +FM. She is being followed at [facility] due to GDMA2. States she is [...] each meal., Disp: , Rfl: blood-glucose meter [facility], 4 (four) times a day. Use to [...] route., Disp: , Rfl: lancets (LANCETS,ULTRA THIN) [facility], Use to check blood sugar 4 times daily. Fasting in the morning, and 1 hour after each meal., Disp: , Rfl: PNV no.153/FA/om3/dha/epa/fish ( GUMMIES ORAL), Take 2 tablets by mouth in the morning., Disp: , Rfl: LABS: Lab Results Component Value Date CREATININE 0.73 01/06/2016 Lab Results Component Value Date TSH 3.31 11/24/2020 No results found for: [id number] Lab Results Component Value Date CREATININE 0.73 [...] by e-mail to: or by fax to: [phone] TIME OF CONSULTATION: 15 minutes with the patient, >50% in discussion and counseling, coordination of care which was [id number], review of records and communication back to referring provider. HOWARD Whitman 03/30/25 1344 documented in this encounter [facility] [employer] 03-30-2025 History of Present illness Narrative Reason for Appointment: Patient ID: Fannie Conley is a 29 y.o. female who presents for Routine Visit Patient presents today for Return OB appointment. MEDICATIONS Current Outpatient Medications Medication Instructions Alcohol Swabs (Alcohol Prep Pad) 70 % pads 1 Pad, Topical, Daily, Use four times daily to check FSBS. Blood Glucose Monitoring Suppl ([employer] Glucometer) w/Device kit 1 kit, Does not [...] test 4. Factor 5 Leiden mutation, heterozygous ([facility] D68.51 US OB follow up transabdominal approach [...] sugars next week. [facility] Telephone encounter Note Called pt and [...] send in new blood sugars next week. [facility] 03-16-2025 Miscellaneous Notes Received BG results and all but 4 are in target range. No pattern noted. Called and left message of praise for all efforts and to call if questions. To send next week again. No changes. Continue your current insulin dose for this week. documented in this encounter [facility] 03-16-2025 Telephone encounter Note Received BG results and all but 4 are in target range. No pattern noted. Called and left message of praise for all efforts and to call if questions. To send next week again. No changes. Continue your current insulin dose for this week. [facility] 03-11-2025 Miscellaneous Notes Summary: MFM Blood Glucose Log & Insulin Dose Change Called and spoke with Merna who did receive message from early this week about BG log reviewed and increased Lantus evening dose to 19 Units daily. Apologized for not returning call noting life has been busy, hectic with foster placement. Denied any questions. documented in this encounter [facility] 03-11-2025 Telephone encounter Note Summary: MFM Blood Glucose Log & Insulin Dose Change Called and spoke with Merna who did receive message from early this week about BG log reviewed and increased Lantus evening dose to 19 Units daily. Apologized for not returning call noting life has been busy, hectic with foster placement. Denied any questions. [facility] Work Phone: 03-07-2025 Miscellaneous Notes Called pt [...] for this week. [facility] 03-07-2025 Telephone encounter Note Called pt to discuss her insulin change for this week and received voicemail. Left her a message that Dr Wade reviewed her blood sugars and would like her to increase her lantus in the evening to 19 units. Asked her to please call back to verify she got this new insulin change for this week. [facility] 03-03-2025 History of Present illness Narrative Reason for Appointment: Patient ID: Fannie Conley is a 29 y.o. female who [...] urine order. Patient is currently also seeing [facility], which are also managing Gestational Diabetes. [...] Patient verbalized understanding. documented in this encounter [facility] 03-01-2025 Telephone encounter Note Called and notified patient that Pat MCKOY reviewed her blood sugar log and would like her to increase her Lantus to 17 units in the evening. Encouraged patient to write down what she is eating when having elevations greater than 140. Patient verbalized understanding. [facility] 02-24-2025 History of Present illness Narrative REASON FOR OFFICE VISIT: Video Visit via Real-time Synchronous Audiovisual Provider Location: [facility] AT [address] [id number] Patient Location: Patient's home Video [...] that there are some limitations compared to [id number] evaluations. The patient consented to the presence [...] before transfer HISTORY OF PRESENT ILLNESS: Fannie Conley is a pleasant 29 y.o. at 22w5d due on Estimated Date of Delivery: 06/25/25. Currently the patient has no complaints. The patient denies MATA, nausea, vomiting, abdominal pain, vaginal bleeding, contractions, leaking fluid or chest pain. She is being followed at [facility] due to GDMA2. States she is [...] each meal., Disp: , Rfl: blood-glucose meter [facility], 4 (four) times a day. Use to [...] route., Disp: , Rfl: lancets (LANCETS,ULTRA THIN) [facility], Use to check blood sugar 4 times daily. Fasting in the morning, and 1 hour after each meal., Disp: , Rfl: PNV no.153/FA/om3/dha/epa/fish ( GUMMIES ORAL), Take 2 tablets by mouth in the morning., Disp: , Rfl: LABS: Lab Results Component Value Date CREATININE 0.73 01/06/2016 Lab Results Component Value Date TSH 3.31 11/24/2020 No results found for: [id number] Lab Results Component Value Date CREATININE 0.73 [...] values to us weekly by e-mail to: [email or web address] or by fax to: [phone] TIME OF CONSULTATION: 25 minutes with the patient, >50% in discussion and counseling, coordination of care which was [id number], review of records and communication back to referring provider. HOWARD Whitman 02/24/25 2336 documented in this encounter [facility] 02-17-2025 Miscellaneous Notes Notified patient by phone of low risk CFDNA results. My direct phone number was given in case any questions arise. documented in this encounter [facility] 02-17-2025 Telephone encounter Note Notified patient by phone of low risk CFDNA results. My direct phone number was given in case any questions arise. [facility] 02-15-2025 Miscellaneous Notes Called and spoke with patient regarding blood sugar log. Noted 6 elevations after insulin change to Lantus last week- 3 fastings and 3 PP (1 was 140). Patient reports last 2 days fasting was 85 and 93. Continues to try dietary changes. Encouraged patient to send in another log next week. documented in this encounter [facility] 02-15-2025 Telephone encounter Note Called and spoke with patient regarding blood sugar log. Noted 6 elevations after insulin change to Lantus last week- 3 fastings and 3 PP (1 was 140). Patient reports last 2 days fasting was 85 and 93. Continues to try dietary changes. Encouraged patient to send in another log next week. [facility] 02-08-2025 History of Present illness Narrative [...] clinic Have you been seen here at [facility] in a previous ? No Recent ER visits or hospitalizations? No Bring blood sugar log or meter with you today? (Please bring them with you for every visit at [facility]) N/A Flu vaccine (Sep-January)? Any concerns that you would like me to mention to the provider today? Does not want to know gender REASON FOR CONSULTATION: GDM A2, IVF factor 5 heterozygote HISTORY OF PRESENT ILLNESS: Fannie Conley is a pleasant 29 y.o. at 20w4d due on Estimated Date of Delivery: 06/24/25. complicated by: IVF with partner egg and donor sperm, dated by 5day embryo transfer on 10/07/2024, JANIYA 06/25/2025. DIRECTOR CHANNEL , no genetic testing Prediabetes (A1c 5.9% [...] Medical History: Diagnosis Date Depression Gestational diabetes [place] product of in vitro fertilization (IVF) 2024 [place]GICAL HISTORY: Past Surgical History: Procedure Laterality [...] route., Disp: , Rfl: lancets (LANCETS,ULTRA THIN[place] [facility], Use to check blood sugar 4 times [...] TESTS AND ULTRASOUND REPORTS: Referral records and [facility] chart were reviewed Pertinent Ultrasound findings are see formal ultrasound report. PHYSICAL EXAMINATION: BP 125/80 (BP Site: Right Arm, BP Postition: Sitting) Pulse 95 Ht 157.5 cm (5' 2.01 ) Wt 104.8 kg (231 lb) BMI 42.24 kg/m Well-appearing in no distress. Respirations not labored, speaking comfortably in full sentences Gravid abdomen OVERALL ASSESSMENT -Fannie Conley is a pleasant 29 y.o. at 20w4d -IVF -choroid plexus cyst -GDM A2 with prediabetes prior to -factor 5 Leiden heterozygous -Obesity in COUNSELING IVF In a systematic review, pregnancies achieved with IVF or ICSI are associated with higher rates of total congenital heart disease that in those pregnancies occurring naturally (1.3% vs 0.7%). FM suggest that echocardiogram be offered to patients [...] overall, although a single choroid plexus cyst (DIRECT[employer] CHANNEL) is visualized. We discussed this finding. CPCs [...] send in blood glucose logs weekly to [facility] Recommend baseline HELLP labs including CBC, CMP, urine protein creatinine ratio, through primary OB Incomplete level 2 anatomy ultrasound echocardiogram, attempt completion in 4 weeks with MFM Recommend growth ultrasounds every 4 weeks following completion of level 2 anatomy ultrasound, through primary OB Recommend twice weekly testing starting at 32 weeks gestation, through primary OB Delivery recommendations : Recommend delivery at [id number] Discuss delivery if estimated weight is >4500g [...] developing diabetes later on. Monitor for depression MFM office follow up already scheduled in 3 weeks DISPOSITION: At this point the patient is in complete care of her coal getter. Patient does have ultrasound and office visit scheduled with us. Thank you for allowing me to participate in the care of Fannie Conley. If there any questions please do not hesitate to contact us. Total time spent was 42 minutes: Preparing to see the patient (e.g., review of tests) Obtaining and/or reviewing separately obtained history Performing a medically appropriate examination and/or evaluation Counseling and educating the patient/family/caregiver Ordering medications, tests, or procedures Referring and communicating with other health ocular care technician (not separately reported) Documenting clinical information in the electronic or other health record Jaida Chadwick MD Maternal- Medicine [facility] [address] [place] [address] [facility], the CDC, and other organizations representing maternal and public health professionals recommend that , , and lactating people and those considering receive the COVID-19 vaccination. Vaccination is the best method to reduce maternal and complications of SARS-CoV-2 infection. This document was created with [employer] technology. Though I make every effort to review the dictation as it is transcribed, on occasion the spoken word can be misinterpreted by the technology leading to inappropriate words, phrases, or sentences. This note is addressed to the requesting provider as a consultation for clinical guidance. Specific medical abbreviations are occasionally used and those are generally approved by the [place]?Board of?Obstetrics and?Gynecology?as well as?Shaji s abbreviations. The above plan of care was based solely on the diagnoses for which a consultation was requested. ?More frequent testing may be indicated based on her other medical/obstetrical conditions. The management of other or medical conditions is beyond the scope of requested consultation and will continue to be followed by the primary coal getter or primary care provider. Note to patient: [...] Patient tolerated well. documented in this encounter [facility] 02-03-2025 Miscellaneous Notes Received call from Nurse at Dr Donaldson's office who states they do not have any records of genetic testing. Vegetable Worker places call to Dr Pena's office at [facility] to inquire if they have any records of genetic testing for this - they also do not have any record of genetic testing. documented in this encounter [facility] 02-03-2025 Telephone encounter Note Received call from Nurse at Dr Donaldson's office who states they do not have any records of genetic testing. Vegetable Worker places call to Dr Pena's office at [facility] to inquire if they have any records of genetic testing for this - they also do not have any record of genetic testing. [facility] 02-03-2025 Miscellaneous Notes Left voicemail for BELA Gamboa at Dr Donaldson's office requesting genetic testing that was completed prior to IVF be faxed over to my attention. documented in this encounter [facility] 02-03-2025 Telephone encounter Note Left voicemail for BELA Gamboa at Dr Donaldson's office requesting genetic testing that was completed prior to IVF be faxed over to my attention. [facility] 01-26-2025 History of Present illness Narrative [...] YES Have you been seen here at [facility] in a previous ? NO Recent ER visits or hospitalizations? NO Bring blood sugar log or meter with you today? (Please bring them with you for every visit at [facility]) YES, SEE LOGS. Flu vaccine (Sep-January)? [...] before transfer HISTORY OF PRESENT ILLNESS: Fannie Conley is a pleasant 29 y.o. at 18w5d due on Estimated Date of Delivery: 06/24/25. Currently the patient has no complaints. The patient denies MATA, nausea, vomiting, abdominal pain, vaginal bleeding, contractions, leaking fluid or chest pain. +FM. She is being followed at [facility] due to GDMA2. States she [...] each meal., Disp: , Rfl: blood-glucose meter [facility], 4 (four) times a day. Use to [...] route., Disp: , Rfl: lancets (LANCETS,ULTRA THIN) [facility] [place], Use to check blood sugar 4 times [...] TSH 3.31 11/24/2020 No results found for: [id number] Lab Results Component Value Date CREATININE 0.73 [...] baby. Little research has been done on mcfp effects of Metformin exposure to the fetus. [...] 6% has the lowest risk for LGA ACOG ASA 81 mg PO daily recommendation [...] by e-mail to: or by fax to: [phone] TIME OF CONSULTATION: 35 minutes with the patient, >50% in discussion and counseling, coordination of care which was [id number], review of records and communication back to referring provider. 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 Current Exercise program walking Who prepares the meal pt Who purchase food at your home? pt Equipment use for cooking/food storage has all Food Assistance(Ex.WIC, [employer]) knows about Dining out Yes 1-2 times [...] Fried rice Chicken Snack Snack Time Fannie Conley presents for diet instruction per doctor order [...] care for you: OB Provider Family Doctor Sem Manager Name: Mendoza Name: No primary care provider [...] demonstration Is there anything about your culture, druze, or personal beliefs we need to know about to care for you: none Primary Language spoken: Moroccan [22] Primary Language for learning: Moroccan Are you currently in a relationship where you are physically hurt, threatened or made to fee afraid? [] Yes [x] No Human Resources Professional needed? [] Yes [x] No Marital status/Living [...] If yes, where: On thge following scale, mechoopda the number, which describes your current level [...] to treat your low blood sugars? Xuan orozco Fannie Warren Clopton was seen today and diabetes education was [...] was 60min. . [facility] Instructions Sonya Lomax RN - 01/26/2025 [...] HOURS WHILE AWAKE documented [facility] this [facility] 01-20-2025 History of Present illness Narrative Reason for Appointment: Patient ID: Fannie Conley is a 29 y.o. female who [...] nursing note reviewed. Exam conducted with a oreman present. Vitals: There is no height or [...] for routine OB appointment. Documented by LEELEE Kieta on behalf of: LEELEE Keita documented in this encounter [facility] 12-29-2024 Miscellaneous Notes I left a message for pt to call to schedule her us/ and consult, I will call her again documented in this encounter [facility] 12-29-2024 Telephone encounter Note I left a message for pt to call to schedule her us/ and consult, I will call her again [facility] 12-23-2024 History of Present illness Narrative Reason for Appointment: Patient ID: Fannie Conley is a 29 y.o. female who [...] nursing note reviewed. Exam conducted with a oreman present. Vitals: There is no height or [...] or undercooked meat, and stay away from [facility]. Patient has been consulted regarding any further do's and don'ts of . Patient voiced understanding and all questions and concerns were answered. Patient has done 4 rounds of invitro to conceive this . 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 Patient will be referred to [facility] and can discuss medication at that [...] Narrative Reason for Appointment: Patient ID: Fannie Conley is a 29 y.o. female who [...] or undercooked meat, and stay away from [facility]. Patient has also been advised to not change litter boxes and eat 6 small meals a day. Patient has been consulted regarding the do's and don'ts of . Patient was given labs and all questions and concerns were answered. Pt declined the [employer] gender/genetics form. Pt did state she is [...] Colette Zamarripa MA documented in this encounter [facility] Healthcare Evaluation + Plan note Future Appointments Appointment Date:11/25/2025 09:00:00 AM Scheduled Provider:Aissatou Castillo MD Location[facility] hospital Appointment Type:URO Office Visit [facility] Evaluation note No assessment inform ation available [facility] Work Phone: Evaluation note Diagnosis Missed menses 9 weeks gestation of , unspecified gestational age Encounter for supervision of normal first in first trimester documented in this encounter [facility] HealthcareEvaluation note* Diagnosis Second trimester state, [...] specified as infective [facility] Diagnosis Insulin controlled gestational diabetes mellitus (GDM) in second trimester- Primary documented in this encounter [facility]* Diagnosis Insulin controlled gestational diabetes mellitus (GDM) in second trimester documented in this encounter [facility]* Diagnosis Insulin controlled gestational diabetes mellitus (GDM) in second trimester- Primary Prediabetes in mother during 20 weeks gestation of Choroid plexus cyst of fetus affecting care of mother, antepartum, single or unspecified fetus Heterozygous factor V Leiden affecting in second trimester, antepartum Severe obesity due to excess calories affecting , antepartum ([facility]) Bipolar disorder, in full remission, most recent episode depressed documented in this encounter [facility]* Diagnosis Insulin controlled gestational diabetes mellitus (GDM) in second trimester- Primary Choroid plexus cyst of fetus affecting care of mother, antepartum, single or unspecified fetus Heterozygous factor V Leiden affecting in second trimester, antepartum Severe obesity due to excess calories affecting , antepartum ([facility]) documented in this encounter [facility]* Diagnosis Insulin controlled gestational diabetes mellitus (GDM) in second trimester- Primary Recurrent major depressive disorder, in partial remission Bipolar 1 disorder ([facility]) Prediabetes in mother during documented in this encounter [facility]* Diagnosis Insulin controlled gestational diabetes mellitus (GDM) in second trimester Prediabetes in mother during documented in this encounter [facility]* Diagnosis 23 weeks gestation of Second trimester state, incidental induced hypertension, antepartum Transient hypertension of , antepartum Insulin controlled gestational diabetes mellitus (GDM) during , antepartum documented in this encounter [facility]* Diagnosis Second trimester state, incidental 27 weeks gestation of Gestational diabetes mellitus (GDM), antepartum, gestational diabetes method of control unspecified Factor 5 Leiden mutation, heterozygous (CMS/HCC) Conceived by in vitro fertilization documented in this encounter [facility]* Diagnosis Insulin controlled gestational diabetes mellitus (GDM) in second trimester- Primary Recurrent major depressive disorder, in partial remission Prediabetes in mother during documented in this encounter [facility]* Diagnosis Insulin controlled gestational diabetes mellitus (GDM) in second trimester Prediabetes in mother during documented in this encounter [facility]* Diagnosis Third trimester (HHS-HCC) state, incidental 30 weeks gestation of (HHS-HCC) [facility] Diagnosis Insulin controlled gestational diabetes mellitus (GDM) in third trimester- Primary [facility]* Diagnosis size inconsistent with dates (HHS-HCC)- Primary Third trimester (HHS-HCC) state, incidental 32 weeks gestation of (HHS-HCC) Conceived by in vitro fertilization Factor 5 Leiden mutation, heterozygous (HHS-HCC) Insulin controlled gestational diabetes mellitus (GDM) during , antepartum (HHS-HCC) [facility] Diagnosis Insulin controlled gestational diabetes mellitus (GDM) in second trimester- Primary [facility] Diagnosis Insulin controlled gestational diabetes mellitus (GDM) in second trimester- Primary documented in this encounter [facility]* Diagnosis 34 weeks gestation of (HHS-HCC) Third trimester (HHS-HCC) state, incidental Conceived by in vitro fertilization Factor 5 Leiden mutation, heterozygous (HHS-HCC) Insulin controlled gestational diabetes mellitus (GDM) during , antepartum (HHS-HCC) Non-recurrent acute serous otitis media of left ear [facility] Diagnosis Insulin controlled gestational diabetes mellitus (GDM) in third trimester- Primary documented in this encounter [facility]* Diagnosis Third trimester (HHS-HCC) state, incidental 36 weeks gestation of (HHS-HCC) [facility]* Diagnosis Right otitis media, unspecified otitis media type- Primary Third trimester (HHS-HCC) state, incidental 36 weeks gestation of (HHS-HCC) [facility]* Diagnosis Third trimester (HHS-HCC) state, incidental 37 weeks gestation of (HHS-HCC) [facility]* Diagnosis Insulin controlled gestational diabetes mellitus (GDM) in second trimester Prediabetes in mother during [facility]* Diagnosis Insulin controlled gestational diabetes mellitus (GDM) in second trimester- Primary [facility]* Diagnosis Insulin controlled gestational diabetes mellitus (GDM) in second trimester- Primary [facility] Diagnosis Excessive growth affecting management of in third trimester, single or unspecified fetus (HHS-HCC)- Primary 38 weeks gestation of (HHS-HCC) Third trimester (HHS-HCC) state, incidental Conceived by in vitro fertilization Factor 5 Leiden mutation, heterozygous (HHS-HCC) Insulin controlled gestational diabetes mellitus (GDM) during , antepartum (HHS-HCC) [facility] Narrative No data available for this section [facility] InstructionsNot on filedocumented in this encounter [facility] [...] on filedocumented in this encounter [facility] No data available for this section [facility] Chief Complaint and Reason for Visit Chief Complaint right knee injury Advance Directives No Advanced Directives Records Found Advance Directive Response Recorded Date/ Time Advance Directives No April 06 4 12:03pm Summary Purpose Family History No Family History Records FoundNo Family History Records FoundNo Family History Records FoundNo Family History Records Found No data available for this section No Family History Records FoundNo Family History [...] Care Provider Active Start: April 06, 2024 Renita Fu , METEOROLOGIST LIAISON-BC Attending Provider Active Start: April 06, 2024 Team Status: Inactive Member Role Status Dates PHYSICIAN NO FAMILY Primary Care Provider Active Start: April 06, 2024 End: April 06, 2024 Renita Fu , METEOROLOGIST LIAISON-BC Attending Provider Active Start: April 06, 2024 [...] encounterNot on filedocumented as of this encounter No data available for this sectionNot on filedocumented as of this encounterNot on filedocumented as of this encounterNot on filedocumented as of this encounterNot on filedocumented as of this encounterNot on filedocumented as of this encounter INFORMATION SOURCE (unrecogn ized section and content) DATE CREATED AUTHOR 04/18/2024 [facility] DATE CREATED AUTHOR AUTHOR'S ORGANIZ ATION 03/11/2025 [facility] DATE CREATED AUTHOR AUTHOR'S ORGANIZ ATION 04/16/2025 [facility] DATE CREATED AUTHOR AUTHOR'S ORGANIZ ATION 05/25/2025 [facility] DATE CREATED AUTHOR AUTHOR'S ORGANIZ ATION 05/29/2025 [facility] DATE CREATED AUTHOR AUTHOR'S ORGANIZ ATION 06/05/2025 [facility] DATE CREATED AUTHOR AUTHOR'S ORGANIZ ATION 06/13/2025 [facility] EPIC Reason for Visit (unrecogniz ed section and content) Reason Comments Amenorrhea Reason Comments Routine Visit Reason Comments Gestational Diabetes Specialty Diagnoses / Procedures Referred By Contac t Referred To Contact Maternal and Medicine Diagnoses Insulin controlled gestational diabetes mellitus (GDM) in second trimester Cain Donalsdon DO Phone: tel: fax: [facility]- Medicine at [facility] [address] [place] [address] Phone: tel: fax: Referral ID Status Reason Start Date Expiration Date Visits Requested Visits Authorized [id number] Pending Review Specialty Services Required 01/11/2025 01/11/2026 [...] BE BASED ON THE PRIMARY CLINICAL RECORDS. [facility]. provides no warranty or guarantee of the accuracy or completeness of information in this document.
[2025-06-14 17:25] VITALS: BP 131/74; PULSE 81
== END 2025-06-14 17:50 | disposition home or self-care (01) ==
LOC: US 16:56 → FBC 17:05
PROVIDERS: PCP Obstetrics & Gynecology; Visit Provider Nurse Practitioner Family
DX: O24.419 Gestational diabetes mellitus in pregnancy, unspecified control (principal); Z3A.38 38 weeks gestation of pregnancy
CPT/HCPCS: 76818

== ENCOUNTER 2025-06-17 17:04 | Outpatient (OUT) | payer BC, SELFPAY ==
--- OUTSIDE RECORDS SUMMARY | 2025-01-21 11:10 | XMS_ITS | Continuity of Care Document ---
Author Organization [facility] Address [address] [place] [address] Phone Care Team Providers Care Typing Section Chief Name Role Phone Miguel Rios Unavailable Unavailable [...] Diagnoses Date Provider Providers Copied on Encounter [facility], [address] [place] [address], [id number] , [place] tel: [phone] [facility] No Information 5 Visci DO Rivera. [address] [place] [address], [id number] , [place]. tel: [phone] [facility], [address] [place] [address], [id number] , [place] tel: [phone] [facility] Encounter for screening for respiratory tuberculosis 5 Visci DO Miguel. [address] [place] [address], [id number] , [place]. tel:[phone] [facility], [address] [place] [address], [id number] , [place] tel: [phone] [facility] No Information 4 Visci DO Miguel. [address] [place] [address], [id number] , [place]. tel: [phone] [facility], [address] [place] [address], [id number] , [place] tel:+ [phone] [facility] Lab Draw (chief complaint) Other specified disorders of pancreatic internal secretionSubclinical iodine-deficiency hypothyroidismEncount er for screening for other viral diseasesEncounter for screening for other infectious disease 4 Cynthia White. [address] [place], [place], 392326284 , [place]. tel: [phone] [facility], [address] [place], 134344218 , [place] tel: [phone] [facility] lab draw (chief complaint) Encounter for screening for other viral diseases 4 Cynthia White. [address] [place], [place], 559500246 , [place]. tel: [phone] [facility], [address] [place], [place], 618151559 , [place] tel: [phone] [facility] No Information 4 Cynthia White. [address] [place], 388466977 , [place]. tel: [phone] [facility], [address] [place], 056384502 , [place] tel: [phone] [facility] Encounter for screening for respiratory tuberculosis 4 Cynthia White. [address] [place], 285019791 , [place]. tel: [phone] [facility], [address] [place], 383628615 , [place] tel: [phone] [facility] Lab draw (chief complaint) Blood test prior to procedure 4 Cynthia White. [address] [place], [place], 016036876 , [place]. tel: [phone] Referring Provider: Tenisha Leon PR. [facility], [address] [place], [place], 258106319 , [place] tel: [phone] [facility] No Information 3 Cynthia White. [address] [place], [place], 541936172 , [place]. tel: [phone] [facility], [address] [place], 740892090 , [place] tel: [phone] [facility] COVID Test (chief complaint) Encounter for screening for COVID-19 3 Cynthia White. [address] [place], 103263424 , [place]. tel: [phone] [facility], [address] [place], 794438959 , [place] tel: [phone] [facility] Lab Draw (chief complaint) Encounter for antibody response examination 3 Cynthia White. [address] [place], [place], 754696837 , [place]. tel: [phone] [facility], [address] [place] [address], [id number] , [place] tel: [phone] [facility] lab (chief complaint) Other specified disorders of pancreatic internal secretion 3 Cynthia White. [address] [place], 016752328 , [place]. tel: [phone] [facility], [address] [place] [address], [id number] , [place] tel: [phone] [facility] Lab draw (chief complaint) Blood test prior to procedure 3 Cynthia White. [address] [place], 148394302 , [place]. tel: [phone] [facility], [address] [place] [address], [id number] , [place] tel: [phone] [facility] lab draw (chief complaint) Endocrine disorder 3 Cynthia White. [address] [place], 543751461 , [place]. tel: [phone] [facility], [address] [place] [address], [id number] , [place] tel: [phone] [facility] Encounter for screening for COVID-19 3 Visci DO Miguel. [address] [place], 467114657 , [place]. tel: [phone] [facility], [address] [place], 874978721 , [place] tel: [phone] [facility] Lab draw (chief complaint) Blood test prior to procedureEncounter for screening for COVID-19 3 Visci DO Miguel. [address] [place], 651544230 , [place]. tel: [phone] [facility], [address] [place], 933999414 , [place] tel: [phone] [facility] No Information 3 Visci DO Miguel. [address] [place], [place], 535346623 , [place]. tel: [phone] [facility], [address] [place], 570501735 , [place] tel: [phone] [facility] No Information 3 Visci DO Miguel. [address] [place], [place], 495113402 , [place]. tel: [phone] [facility], [address] [place], 531530025 , [place] tel: [phone] [facility] No Information 2 Visci DO Miguel. [address] [place], 679931735 , [place]. tel: [phone] [facility], [address] [place], 686819098 , [place] tel: [phone] [facility] No Information 2 Visci DO Miguel. [address] [place], [place], 288637686 , [place]. tel: [phone] [facility], [address] [place], 241723801 , [place] tel: [phone] [facility] No Information 2 Visci DO Miguel. [address] [place], 029350070 , [place]. tel: [phone] [facility], [address] [place], 709333211 , [place] tel: [phone] [facility] Encounter for screening for respiratory tuberculosis 2 Visci DO Miguel. [address] [place], [place], 820546095 , [place]. tel: [phone] [facility], [address] [place], 409606252 , [place] tel: [phone] [facility] Encounter for screening for respiratory tuberculosis 2 Visci DO Miguel. [address] [place], 289519896 , [place]. tel: [phone] [facility], [address] [place], 484415527 , [place] tel: [phone] [facility] Encounter for screening for respiratory tuberculosis 2 Visci DO Miguel. [address] [place], 258584447 , [place]. tel: [phone] [facility], [address] [place], 557431960 , [place] tel: [phone] [facility] No Information 1 Visci DO Miguel. [address] [place], 024406741 , [place]. tel: [phone] [facility], [address] [place], 567541297 , [place] tel: [phone] [facility] No Information 1 Visci DO Miguel. [address] [place], 034911323 , [place]. tel: [phone] [facility], [address] [place], 929059223 , [place] tel: [phone] [facility] No Information 1 Visci DO Miguel. [address] [place], 042869559 , [place]. tel:[phone] Family History Family Member Type Diagnosis Age [...] Insurance type Covered democrat ID Authoriza tion(s) [place] [employer] [id number] [place] [employer] [id number] [place] [employer] [id number] [place] [employer] [id number] [place] [employer] [id number] [place] [employer] [id number] [place] [employer] [id number] Social History Type Description Quantity Date Captured [...] e Goal HPV. Due on due Goal Unhealthy [...] du e Goal Influenza vaccine. Due on [place] due Goal Unhealthy drug use screening . [...] on due Goal Influenza vaccine. Due on [place] due Goal PRAPARE ASSESSMENT. Due on due [...]
--- OUTSIDE RECORDS SUMMARY | 2025-06-06 08:40 | XMS_ITS | Encounter Summary ---
Author Organization [facility] Address [address] [place] [address] Care Team Providers Care Driver/Sales Workers Name Role Phone Unavailable Primary Care Provider Unavailabl e Reason for Visit * Reason Comments Routine Visit Encounter Details Date Type Department Care Team (Late st Contact Info) Description 06/06/2025 8:40 AM EDT Routine [facility] [address] [place] [phone] Christy Schwartz PA [address] [place] [id number] Third trimester ([facility]); 37 weeks gestation of ([facility]) Social History Tobacco Use Types Packs/Day Years [...] Sign Reading Time Taken Comments Blood Pressure 124/78 06/06/2025 8:50 AM EDT Pulse - - Temperature - - Respiratory Rate - - Oxygen Saturation - - Inhaled Oxygen Concentration - - Weight 109 kg (239 lb 12.8 oz) 06/06/2025 8:50 A M EDT Height - - Body Mass Index 43.86 04/18/2025 10:34 AM EDT documented in this encounter Progress Notes * LEELEE Keita - 06/06/2025 8:40 AM EDT Reason for Appointment: Patient ID: Kevin Conley is a 29 y.o. female who presents for Routine Visit Patient presents today for Return OB appointment. MEDICATIONS Current Outpatient Medications Medication Instructions Alcohol Swabs (Alcohol Prep Pad) 70 % pads 1 Pad, Topical, Daily, Use four times daily to check FSBS. Blood Glucose Monitoring Suppl ([employer] Glucometer) w/Device kit 1 kit, Does not [...] dosage. Total of 4 syringes daily needed. ofloxacin (Floxin) 0.3 % otic solution 5 drops, Right Ear, Daily ALLERGIES No Known Allergies PROBLEMS Active Ambulatory Problems Diagnosis Date Noted No Active Ambulatory Problems Resolved Ambulatory Problems Diagnosis Date Noted No Resolved Ambulatory Problems Past Medical History: Diagnosis Date SAB (spontaneous ) ([facility]) 10/2021 HISTORY PAST MEDICAL HISTORY SOCIAL HISTORY Past Medical History: Diagnosis Date SAB (spontaneous ) ([facility]) 10/2021 Social History Tobacco Use Smoking status: [...] reviewed. Vitals: Estimated body mass index is 43.86 kg/m?? as calculated from the following: Height as of 04/18/25: 5' 2 . Weight as of this encounter: 239 lb 12.8 oz. BP: 124/78 No LMP recorded. Patient is . ASSESSMENT & PLAN ICD-10-CM 1. Third trimester ([facility]) Z34.93 2. 37 weeks gestation of ([facility]) Z3A.37 Return OB: Patient presents today for a routine obstetrics appointment. Patient is currently 37w3d . Patient states she is doing well but has complaints of being tired due to current . Patient has verbalizes frequent movement. labor precautions was discussed/given and patient was instructed to perform kick counts three times a day. No orders of the defined types were placed in this encounter. Follow Up: Patient is to return to office in 1 week for routine OB appointment. Documented by LEELEE Keita on behalf of: LEELEE Keita documented in this encounter Plan of Treatment Not on file documented as of this encounter Goals Goal Patient Goal Type Associated Problems Recent Progress Patient-Stated? Author Reminders Care Plan OB Reminders No Open Scheduling, Background documented as of this encounter Visit Diagnoses Diagnosis Third trimester ([facility]) state, incidental 37 weeks gestation of ([facility]) documented in this encounter Additional Health Concerns Active Problems Noted Date Diagnosed Date OB Reminders 11/26/2024 documented as of this encounter
--- OUTSIDE RECORDS SUMMARY | 2025-06-13 08:30 | XMS_ITS | Encounter Summary ---
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 Name Role Phone Unavailable Primary Care Provider Unavailabl e Encounter Details Date Type Department Care Team (Latest Contact Info) Description 06/13/2025 8:30 AM EDT Routine [facility] [address] [place] [address] Christy Schwartz PA [address] [place], [facility] Excessive growth affecting management of in third trimester, single or unspecified fetus ([facility]) (Primary Dx); 38 weeks gestation of ([facility]); Third trimester ([facility]); Conceived by in vitro fertilization; Factor 5 Leiden mutation, heterozygous ([facility]); Insulin controlled gestational diabetes mellitus (GDM) during , antepartum ([facility]) Social History Tobacco Use Types Packs/Day Years [...] Sign Reading Time Taken Comments Blood Pressure 120/78 06/13/2025 8:39 AM EDT Pulse - - Temperature - - Respiratory Rate - - Oxygen Saturation - - Inhaled Oxygen Concentration - - Weight 109 kg (240 lb) 06/13/2025 8:39 AM EDT Height - - Body Mass Index 43.9 04/18/2025 10:34 AM EDT documented in this encounter Progress Notes * LEELEE Keita - 06/13/2025 8:30 AM EDT Reason for Appointment: Patient ID: Kevin Conley is a 29 y.o. female who presents for No chief complaint on file. Patient presents today for Return OB appointment. MEDICATIONS Current Outpatient Medications Medication Instructions Alcohol Swabs (Alcohol Prep Pad) 70 % pads 1 Pad, Topical, Daily, Use four times daily to check FSBS. Blood Glucose Monitoring Suppl ([employer] Glucometer) w/Device kit 1 kit, Does not [...] of 4 syringes daily needed. Lantus SoloStar 29 Units, Subcutaneous, Nightly ALLERGIES No Known Allergies PROBLEMS Active Ambulatory Problems Diagnosis Date Noted No Active Ambulatory Problems Resolved Ambulatory Problems Diagnosis Date Noted No Resolved Ambulatory Problems Past Medical History: Diagnosis Date SAB (spontaneous ) ([facility]) 10/2021 HISTORY PAST MEDICAL HISTORY SOCIAL HISTORY Past Medical History: Diagnosis Date SAB (spontaneous ) ([facility]) 10/2021 Social History Tobacco Use Smoking [...] reviewed. Vitals: Estimated body mass index is 43.9 kg/m?? as calculated from the following: Height as of 04/18/25: 5' 2 . Weight as of this encounter: 240 lb. BP: 120/78 No LMP recorded. Patient is . ASSESSMENT & PLAN ICD-10-CM 1. Excessive growth affecting management of in third trimester, single or unspecified fetus ([facility]) O36.63X0 US OB follow up transabdominal approach 2. 38 weeks gestation of ([facility]) Z3A.38 POCT urinalysis dipstick manually resulted 3. Third trimester ([facility]) Z34.93 POCT urinalysis dipstick manually resulted 4. Conceived by in vitro fertilization Z78.9 POCT urinalysis dipstick manually resulted 5. Factor 5 Leiden mutation, heterozygous ([facility]) D68.51 POCT urinalysis dipstick manually resulted 6. Insulin controlled gestational diabetes mellitus (GDM) during , antepartum ([facility]) O24.414 POCT urinalysis dipstick manually resulted Return OB: Patient presents today for a routine obstetrics appointment. Patient is currently 38w3d . Patient states she is doing well [...] documented in this encounter Plan of Treatment Pending Results Name Type Priority Associated Diagnoses Date /Time US OB follow up transabdominal approach Imaging Routine Excessive growth affecting management of in third trimester, single or unspecified fetus ([facility]) 06/16/2025 8:23 AM EDT Scheduled Orders Name Type Priority Associated Diagnoses Orde r Schedule US OB follow up transabdominal approach Imaging Routine Excessive growth affecting management of in third trimester, single or unspecified fetus ([facility]) Expected: 06/13/2025, Expires: 10/13/2025 documented as of this encounter Goals Goal Patient Goal Type Associated Problems Recent Progress Patient-Stated? Author Reminders Care Plan OB Reminders No Open Scheduling, Background documented as of this encounter Procedures Procedure Name Priority Date/Time Associated Diagnosis Comments POCT URINALYSIS DIPSTICK Routine 06/13/2025 8:45 AM EDT 38 weeks gestation of ([facility]) Third trimester ([facility]) Conceived by in vitro fertilization Factor 5 Leiden mutation, heterozygous ([facility]) Insulin controlled gestational diabetes mellitus (GDM) during , antepartum ([facility]) documented in this encounter Results * (ABNORMAL) POCT urinalysis dipstick manually resulted (06/13/2025 8:45 AM EDT) Color, UA Renita Clarity, UA Cloudy Glucose, UA Negative Negative - 2000(110) ++++ mg/dL Bilirubin, UA Negative Negative - 4(70) +++ mg/dL Ketones, UA Negative Negative - 160(16) ++++ mg/dL Spec Grav, UA 1.015 1 - 1.03 Blood, UA Negative Negative - 50 Warren/mcL pH, UA 6.5 5 - 9 Protein, UA Positive Negative - 2000(20) ++++ mg/dL Urobilinogen, UA 1.0 0.2 - 12 mg/dL Leukocytes, UA Positive Negative - 500+++ Malick/mcL Comment:3+ Nitrite, UA Negative Negative - Positive Urine 06/13/2025 8:45 AM EDT Christy MCKOY POINT OF CARE TEST ENTER/EDIT OR DERABLES Final Result documented in this encounter Visit Diagnoses Diagnosis Excessive growth affecting management of in third trimester, single or unspecified fetus ([facility])- Primary 38 weeks gestation of ([facility]) Third trimester ([facility]) state, incidental Conceived by in vitro fertilization Factor 5 Leiden mutation, heterozygous ([facility]) Insulin controlled gestational diabetes mellitus (GDM) during , antepartum ([facility]) documented in this encounter Additional Health Concerns Active Problems Noted Date Diagnosed Date OB Reminders 11/26/2024 documented as of this encounter
--- OUTSIDE RECORDS SUMMARY | 2025-06-16 08:00 | XMS_ITS | Encounter Summary ---
Author Organization [facility] Address [address] [place] [address] Care Team Providers Care [employer] Senior Officer Name Role Phone Unavailable Primary Care Provider Unavailabl e Encounter Details Date Type Department Care Team (Latest Contact Info) Description 06/16/2025 8:00 AM EDT Ancillary Procedure [facility] [address] [place] [address] [place] [address] Excessive growth affecting management of in third trimester, single or unspecified fetus ([facility]) Social History Tobacco Use Types Packs/Day Years [...] as of this encounter Plan of Treatment Pending Results Name Type Priority Associated Diagnoses Date /Time OB follow up transabdominal approach Imaging Routine Excessive growth affecting management of in third trimester, single or unspecified fetus ([facility]HS-HCC) 06/16/2025 8:23 AM EDT documented as of this encounter Goals Goal Patient Goal Type Associated Problems Recent Progress Patient-Stated? Author Reminders Care Plan OB Reminders No Open Scheduling, Background documented as of this encounter Visit Diagnoses Diagnosis Excessive growth affecting management of in third trimester, single or unspecified fetus (HHS-HCC) documented in this encounter Additional Health Concerns Active Problems Noted Date Diagnosed Date OB Reminders 11/26/2024 documented as of this encounter
--- OUTSIDE RECORDS SUMMARY | 2025-06-17 17:07 | XMS_ITS | Encounter Summary ---
Author Organization [facility] Address [address] [place] [address] Care Team Providers Care Drawer Hardware Worker Name Role Phone Unavailable Primary Care Provider Unavailabl e Encounter Details Date Type Department Care Team (Late st Contact Info) Description 04/19/2025 Results Follow-Up [facility] [address] [place] [address] Mary Thorpe LPN [address] Residence [employer] [facility] [place] [phone] US RENAL BI Social History Tobacco Use Types Packs/Day Years [...]
--- OUTSIDE RECORDS SUMMARY | 2025-06-17 17:07 | XMS_ITS | Clinical Summary ---
Author Organization [employer] Address [id number] [address] [place] [address] Care Team Providers Care Transitions Manager Name Role Phone Unavailable Primary Care [...] second trimester,Pred iabetes in mother during Inject 29 units subcutaneously [...] Encounters Date Type Department Care Team Description 06/13/2025 Telephone Maternal- Medicine at [facility] [address] [place] [address] Sonya Lomax, NARESH 06/10/2025 Telephone Maternal- Medicine at [facility] [address] [place] [address] Naomy Thompson RN 06/07/2025 Telephone Maternal- Medicine at [facility] [address] [place] [address] Sonya Lomax, NARESH 06/07/2025 Orders Only [facility] US Imaging [address] [place] [address] Eva Mccann, INFIRMARY ATTENDANT-CNM Insulin controlled gestational diabetes mellitus (GDM) in second trimester; Prediabetes in mother during 05/30/2025 Telephone Maternal- Medicine at [facility] [address] [place] [address] Sonya Lomax, NARESH 05/23/2025 1:30 PM EDT Telemedicine Maternal- Medicine at [facility] [address] [facility] [place] [address] Devika Pulido PA-C Insulin controlled gestational diabetes mellitus (GDM) in third trimester (Primary Dx) 05/23/2025 Travel 05/17/2025 Telephone Maternal- Medicine at [facility] [address] [facility] [place] [address] Sonya Lomax, RN 05/11/2025 Telephone Maternal- Medicine at [facility] [address] [facility] [place] [address] Belen Fowler, LD 05/03/2025 Telephone Maternal- Medicine at [facility] [address] [facility] [place] [address] Shoshana Berger, LD 04/25/2025 11:30 AM EDT Telemedicine Maternal- Medicine at [facility] [address] [facility] [place] [address] Devika Pulido, PA-C Insulin controlled gestational diabetes mellitus (GDM) in third trimester (Primary Dx) 04/25/2025 Travel 04/25/2025 Telephone Maternal- Medicine at [facility] [address] [facility] [place] [address] Giselle Cheng, ERI 04/20/2025 Telephone Maternal- Medicine at [facility] [address] [facility] [place] [address] Aissatou Stoner, NARESH 04/14/2025 Travel 04/12/2025 Telephone Maternal- Medicine at [facility] [address] [facility] [place] [address] Sonya Lomax, NARESH 04/11/2025 Orders Only Maternal- Medicine at [facility] [address] [facility] [place] [address] Devika Pulido PA-C 04/11/2025 Remote Patient Monitoring Maternal- Medicine at [facility] [address] [place] [address] Devika Pulido PA-C Insulin controlled gestational diabetes mellitus (GDM) in second trimester; Prediabetes in mother during 03/30/2025 1:30 PM EDT Telemedicine Maternal- Medicine at [facility] [address] [place] [address] Sintia Martinez, INFIRMARY ATTENDANT-RHONDA Insulin controlled gestational diabetes mellitus (GDM) in second trimester (Primary Dx); Recurrent major depressive disorder, in partial remission; Prediabetes in mother during 03/30/2025 Travel 03/22/2025 Telephone Maternal- Medicine at [facility] [address] [place] [address] Sonya Lomax RN from Last 3 Months Family History Medical History Relation Name Comments Hearing loss Maternal Grandmother Depression Mother Autism Neg Hx Bleeding Disorder Neg Hx Developmental delay Neg Hx Down syndrome Neg Hx Heart defect Neg Hx Sudden Neg Hx Relation Name Status Comments Maternal Grandmother Mother Social History Tobacco Use Types Packs/Day Years Used Date Smoking Tobacco: Former Cigarettes 2010 Smokeless Tobacco: Never Tobacco Cessation:Counseling Given: [...] AM EDT Encounter for other screening follow-up PAP SMEAR Routine 11/24/2020 6:26 AM EST Encounter for gynecological examination without abnormal finding from Last 3 Months or Most Recently Relevant to Health Maintenance Results * US MFM OB FOLLOW-UP, 1 FETUS (04/14/2025 9:05 AM EDT) Anatomical Region Laterality Modality OB-PER DIEM PHYSICAL THERAPIST Ultrasound 04/14/2025 8:07 AM EDT Narrative 04/14/2025 1:39 PM EDT NAME: CINDY GRECO : 1995 SEX: F Accession Number: [id number] ORDERING PHYSICIAN: JAIDA CHADWICK REFERRING PHYSICIAN: ALFREDO PROCTOR Coding ----- --------- Procedures 16072: Follow-up Ultrasound, per fetus Indication ----- --------- Screening for follow-up survey, Screening for congenital cardiac abnormality, resulting from assisted reproductive technology, Gestational diabetes, Obesity in , Depression, Supervision of high risk (LT Choroid plexus cyst)-resolved History ----- --------- OB History 2. Para 0 [id number] Maternal Assessment ----- --------- Physical Exam Height [...] EFW (oz) 6 oz EFW by: Hadlock ([id number]) Extended Tibia 47.6 mm 28w 6d 23% Padmini Grade Tamper 3.1 mm CM 10.2 mm 99% Nicolaides [...] Thorax RVOT view. LVOT view. 3-vessel view. 9-oyssgm-wwqwfzm view. Right lung. Left lung. Abdomen Right [...] view documented previously 3-vessel view documented previously 6-hnrwhq-iwyeurd view documented previously Aortic arch view documented [...] 6.5 cm. Recommendations ----- --------- Please see [facility] recommendations from prior clinical and/or ultrasound report documentation. The patient is scheduled in four weeks to complete anatomic survey and echocardiogram. Continue testing as previously recommended. Subsequent follow up or other follow up as clinically determined by primary OB provider unless otherwise specified by [facility]. Results forwarded to ordering provider so they can follow up with the patient as necessary. Procedure Note Jaida Chadwick MD - 04/14/2025 NAME: CINDY GRECO : 1995 SEX: F Accession Number: [id number] ORDERING PHYSICIAN: JAIDA CHADWICK REFERRING PHYSICIAN: ALFREDO PROCTOR Coding ----- --------- Procedures 40896: Follow-up Ultrasound, per fetus Indication ----- --------- Screening for follow-up survey, Screening for congenital cardiacabnormality, resulting from assisted reproductive technology, Gestational diabetes, Obesity in , Depression,Supervision of high risk (LT Choroid plexus cyst)-resolved History ----- --------- OB History 2. Para 0 [id number] Maternal Assessment ----- --------- Physical Exam Height [...] Cerebellum tr 36.1 mm 29w 6d 49% [place] AC 264.0 mm 30w 4d 69% Hadlock Femur 54.3 mm 28w 5d 12% Hadlock Humerus 49.8 mm 29w 1d 35% Padmini HC / AC 1.11 EFW 1,528 g 54% Hadlock EFW (lb) 3 lb EFW (oz) 6 oz EFW by: Hadlock ([id number]) Extended Tibia 47.6 mm 28w 6d 23% Padmini Grade Tamper 3.1 mm CM 10.2 mm 99% Nicolaides [...] Thorax RVOT view. LVOT view. 3-vessel view. 1-crvbiu-jkhzihhduhm. Right lung. Left lung. Abdomen Right renal [...] view documented previously 3-vessel view documented previously 3-vaeqqm-urnoomd view documented previously Aortic arch view documented [...] 6.5 cm. Recommendations ----- --------- Please see [facility] recommendations from prior clinical and/or ultrasoundreport documentation. The patient is scheduled in four weeks to complete anatomic survey andfetal echocardiogram. Continue testing as previously recommended. Subsequent follow up or other follow up as clinically determined byprimary OB provider unless otherwise specified by [facility]. Results forwarded to ordering provider so they can follow up with thepatient as necessary. us Jaida Chadwick MD [facility] ORDERABLES Final Result * Pap Smear (11/24/2020 6:26 AM EST) 11/24/2020 6:26 AM EST 11/24/2020 6:35 AM EST Narrative COPATH - 11/28/2020 11:50 AM EST [facility] [address] [place] [address] Gynecologic Cytology Consultation Patient Name: KEVIN MOORE : 1995 (Age: 25) Gender: F Taken: 11/24/2020 Reported: 11/28/2020 Physician(s): Al Orr M.D. ( ) Copy To: [facility]. Rec. #: [id number] Acct: # [id number] Final Cytologic Interpretation ThinPrep Pap Test (Cervical): Satisfactory for evaluation. A transformation zone component was not noted. NEGATIVE FOR INTRAEPITHELIAL LESION OR MALIGNANCY. [facility] [place]28/2020 Interpretation performed at [facility], [address] [place] [address], License number: [id number]. Electronically Signed Out By PAUL Lopez(ASCP) Date of Last Menstrual Period: 09/12/2020 Other Clinical Conditions: Z01.419 Machine Cleaner exam wo/abn findings Source of Specimen ThinPrep Pap Test (Cervical) Thin Prep Pap (PER DIEM PHYSICAL THERAPIST) Fee Code(s): G0145 The Pap test is a screening test with an inherent, but low, probability of error. The Pap test is primarily effective for the diagnosis and prevention of squamous cell carcinoma. Regular screening is critical for prevention. ThinPrep liquid-based slides, which meet the Emergency Department Manager criteria for automated screening, have been screened by the ThinPrep Imaging System (as of 07/20/07) along with an additional manual rescreening by a wax bleacher and, if indicated, by a pathologist. Al Orr MD PATHOLOGY/CYTOLOGY ORDERABLE S Final Result COPATH from Last 3 Months or Most Recently Relevant to Health Maintenance Insurance [employer]
--- OUTSIDE RECORDS SUMMARY | 2025-06-17 17:07 | XMS_ITS | Encounter Summary ---
Author Organization [facility] Address [address] [place] [address] Care Team Providers Care Tone Regulator Name Role Phone Unavailable Primary Care Provider Unavailabl e Encounter Details Date Type Department Care Team (Late st Contact Info) Description 12/27/2024 Abstract [facility] [address] [place] [address] Cain Donaldson DO [address] [facility] [place] [address] Social History Tobacco Use Types Packs/Day Years [...]
--- OUTSIDE RECORDS SUMMARY | 2025-06-17 17:07 | XMS_ITS | Clinical Summary ---
Author Organization [facility] Address [address] [facility], [address] [place] [address] Care Team Providers Care Fry Cook Name Role Phone Unavailable Primary Care Provider [...] - 2023-2 5 season) 2024 Flu vaccine (#1) 06/03/2025 09/08/2023 HIV screen Completed 12/23/2024, 01/11/2021 Hepatitis C screen Completed 12/23/2024, 01/11/2021 HPV vaccine (No Doses Required) Completed Hepatitis A vaccine Aged Out No longe [...] Ab NONREACTIVE NONREACTIVE 12/23/19 6:10 PM EST [facility] Comment: The hepatitis C procedure used in [...] ORDERABLES Fin al Result Performing Organization Address City/State/[facility] Co de Phone Number [facility] [address] [facility] [place] [address], [facility] [phone] [place] [address], [facility] [phone] * HIV Screen (12/23/2024 6:10 PM EST) HIV Ag/Ab NONREACTIVE NONREACTIVE 12/23/2024 6:10 PM EST [facility] Comment: No laboratory evidence of HIV infection. If acute HIV infection is suspected, consider testing for HIV-1 RNA. 12/23/2024 6:10 PM EST 12/23/2024 6:12 PM EST Cain Donaldson MD IMMUNOLOGY ORDERABLES Fin al Result [facility] [address] [place] [address], [facility] [phone] [facility] [address] [place] [address], [facility] [phone] from Last 3 Months or Most Recently Relevant to Health Maintenance Insurance
--- OUTSIDE RECORDS SUMMARY | 2025-06-17 17:07 | XMS_ITS | Encounter Summary ---
Author Organization [facility] Address [address] [place] [address] Care Team Providers Care Water Conservation Specialist Name Role Phone Unavailable Primary Care Provider Unavailabl e Encounter Details Date Type Department Care Team (Late st Contact Info) Description 11/12/2024 Abstract [facility] [address] [facility] [place] [phone] Cain Donaldson DO [address] [facility] [place] [address] Social History Tobacco Use Types Packs/Day Years [...]
--- OUTSIDE RECORDS SUMMARY | 2025-06-17 17:07 | XMS_ITS | Encounter Summary ---
Author Organization [facility] Address [address] [place] [address] Care Team Providers Care Fun House Operator Name Role Phone Unavailable Primary Care Provider Unavailabl e Encounter Details Date Type Department Care Team (Late st Contact Info) Description 12/24/2024 Abstract [facility] [address] [place] [address] Cain Donaldson DO [address] [facility] [place] [address] Social History Tobacco Use Types Packs/Day Years [...]
--- OUTSIDE RECORDS SUMMARY | 2025-06-17 17:07 | XMS_ITS | Encounter Summary ---
Author Organization [facility] Address [address] [place] [address] Care Team Providers Care Oracle Solutions Architect Name Role Phone Unavailable Primary Care Provider Unavailabl e Encounter Details Date Type Department Care Team (Late st Contact Info) Description 11/26/2024 Abstract [facility] [address] [facility] [place] [address] Cain Donaldson DO [address] [facility] [place] [address] Social History Tobacco Use Types Packs/Day Years [...]
--- OUTSIDE RECORDS SUMMARY | 2025-06-17 17:07 | XMS_ITS | Clinical Summary ---
Author Organization [facility] Address [address] [place] [address] Care Team Providers Care Facilities Maintenance Worker Name Role Phone Unavailable Primary Care Provider Unavailabl e Allergies No known active allergies Medications Alcohol Swabs (Alcohol Prep Pad) 70 % padsIndications: Elevated glucose tolerance test, resulting from in vitro fertilization, antepartum ([facility]) Apply 1 Pad topically Daily Use four times daily to check FSBS. 150 each 3 5 Active Blood Glucose Monitoring Suppl (D-Care Glucometer) w/Device kitIndications:E levated glucose tolerance test, resulting from in vitro fertilization, antepartum ([facility]) 1 kit Daily Use four times daily to check FSBS. In the morning prior to breakfast & 1 hour after each meal for a total of 4times daily. 1 kit 5 12/23/19 26 Active insulin syringe 29G X 1/2 0.5 mL miscIndications: Gestational diabetes mellitus (GDM), antepartum, gestational diabetes method of control unspecified ([facility]) Use 2 syringes in the morning for insulin dosage and 2 syringes in the Evening for insulin dosage. Total of 4 syringes daily needed. 120 each 5 5 Active insulin glargine (Lantus SoloStar) 100 UNIT/ML pen Inject 29 Units under the skin at bedtime Active amoxicillin (Amoxil) 500 MG tabletIndication s:Non-recurrent acute serous otitis media of left ear Take 1 tablet (500 mg) by mouth in the morning and 1 tablet (500 mg) in the evening and 1 tablet (500 mg) before bedtime. Do all this for 7 days. 21 tablet 5 05/23/20 25 ofloxacin (Floxin) 0.3 % otic solutionIndicati ons:Right otitis media, unspecified otitis media type Administer 5 drops into the right ear Daily for 10 days 10 mL 5 06/09/20 25 Encounters Date Type Department Care Team Description 06/16/2025 8:00 AM EDT Ancillary Procedure [facility] [address] [place] [address] Excessive growth affecting management of in third trimester, single or unspecified fetus ([facility]) 06/14/2025 Clinisync Result Encounter [facility] External Department Unsolicited Belgica Scherer NP 06/13/2025 8:30 AM EDT Routine [facility] [place] [place] [address] Christy Schwartz PA Excessive growth affecting management of in third trimester, single or unspecified fetus ([facility]) (Primary Dx); 38 weeks gestation of ([facility]); Third trimester ([facility]); Conceived by in vitro fertilization; Factor 5 Leiden mutation, heterozygous ([facility]); Insulin controlled gestational diabetes mellitus (GDM) during , antepartum ([facility]) 06/13/2025 Bamboo flowsheet [facility] [address] [place] [address] [place] [address] Christy Schwartz PA 06/08/2025 Clinisync Result Encounter [facility]OM[facility] External Department Unsolicited Belgica Scherer NP 06/06/2025 8:40 AM EDT Routine [facility] [address] [address] [place] [address] Christy Schwartz PA Third trimester ([facility]); 37 weeks gestation of ([facility]) 06/06/2025 Bamboo flowsheet [facility] [address] [place] [address] Christy Schwartz PA 05/30/2025 8:30 AM EDT Routine [facility] [address] [place] [address] Alfredo Donaldson DO Right otitis media, unspecified otitis media type (Primary Dx); Third trimester ([facility]); 36 weeks gestation of ([facility]) 05/30/2025 Bamboo flowsheet [facility] [address] [place] [address] Alfredo Donaldson, 05/26/2025 8:50 AM EDT Routine [facility] [address] [place] [address] Christy Schwartz PA Third trimester ([facility]); 36 weeks gestation of ([facility]) 05/26/2025 Bamboo flowsheet [facility] [address] [place] [address] Christy Schwartz PA 05/26/2025 Travel 05/24/2025 Clinisync Result Encounter [facility] External Department Unsolicited Belgica Scherer NP 05/17/2025 Clinisync Result Encounter [facility]OMS External Department Unsolicited Belgica Scherer, LEEANN 05/16/2025 8:30 AM EDT Routine [facility] [address] [place] [address] Alfredo Donaldson DO 34 weeks gestation of ([facility]); Third trimester ([facility]); Conceived by in vitro fertilization; Factor 5 Leiden mutation, heterozygous ([facility]); Insulin controlled gestational diabetes mellitus (GDM) during , antepartum ([facility]); Non-recurrent acute serous otitis media of left ear 05/16/2025 Bamboo flowsheet [facility] [address] [place] [address] Alfredo Donaldson, 05/10/2025 8:00 AM EDT Ancillary Procedure [facility] [place] [address] Insulin controlled gestational diabetes mellitus (GDM) during , antepartum ([facility]); Gestational diabetes mellitus (GDM), antepartum, gestational diabetes method of control unspecified ([facility]) 05/10/2025 Clinisync Result Encounter [facility]OM[facility] External Department Unsolicited Belgica Scherer NP 05/09/2025 Travel 05/04/2025 Clinisync Result Encounter [facility]OM[facility] External Department Unsolicited Belgica Scherer NP 05/03/2025 8:50 [place] [address] Christy Schwartz PA Gestational diabetes mellitus (GDM), antepartum, gestational diabetes method of control unspecified ([facility]) (Primary Dx); Third trimester ([facility]); 32 weeks gestation of ([facility]); Conceived by in vitro fertilization; Factor 5 Leiden mutation, heterozygous ([facility]); Insulin controlled gestational diabetes mellitus (GDM) during , antepartum ([facility]); size inconsistent with dates ([facility]) 05/03/2025 Bamboo flowsheet [facility] [place] [address] Christy Schwartz PA 04/27/2025 Clinisync Result Encounter NOMS External Department Unsolicited Belgica Scherer NP 04/26/2025 Travel 04/22/2025 Abstract [facility] [place] [address] Alfredo Donaldson, DO 04/19/2025 [place] [address] Mary Thorpe LPN US RENAL BI 04/19/2025 Clinisync Result Encounter [facility]OM[facility] External Department Unsolicited Alfredo Donaldson, DO 04/19/2025 Clinisync Result Encounter NOMS External Department Unsolicited Alfredo Donaldson, DO 04/18/2025 10:10 AM [place] [address] Alfredo Donaldson, DO Third trimester ([facility]); 30 weeks gestation of ([facility]) 04/18/2025 Clinisync Result Encounter [facility]OMS External Department Unsolicited Alfredo Donaldson, DO 04/18/2025 Bamboo flowsheet [facility] [address] Alfredo Donaldson, DO 04/17/2025 Clinisync Result Encounter NOMS External Department Unsolicited Alfredo Donaldson, DO 04/14/2025 Abstract [facility] [place] [address] Yue Dumont MA 04/11/2025 Clinisync Result Encounter [facility]OM[facility] External Department Unsolicited Alfredo Donaldson, DO 04/11/2025 Clinisync Result Encounter NOMS External Department Unsolicited Alrfedo Donaldson, DO 04/05/2025 Clinisync Result Encounter [facility]OM[facility] External Department Unsolicited Alfredo Donaldson, DO 03/30/2025 8:50 AM EDT Routine [facility] [place] [address] Christy Schwartz PA Second trimester ([facility]); 27 weeks gestation of ([facility]); Gestational diabetes mellitus (GDM), antepartum, gestational diabetes method of control unspecified ([facility]); Factor 5 Leiden mutation, heterozygous ([facility]); Conceived by in vitro fertilization 03/30/2025 [place] [address] Christy Schwartz PA 03/30/2025 Travel 03/18/2025 [place] [address] Yue Dumont MA from Last 3 Months Social History Tobacco [...] (240 lb) 06/13/2025 8:39 AM EDT Height 157.5 cm (5' 2 ) 04/18/2025 10:34 AM EDT Body Mass Index 43.9 04/18/2025 10:34 AM EDT Plan of Treatment Health Maintenance Due Date Last Done Comments HPV/Cotest 2023 Influenza Vaccine (#1) 2025 08/03/2024, 2022, 10/07/2022 Cervical Cancer Screening 01/21/2028 Pap Smear 01/21/2028 01/20/2025 Goals Goal Patient Goal Type Associated Problems Recent Progress Patient-Stated? Author Reminders Care Plan OB Reminders No Open Scheduling, Background Procedures Procedure Name Priority Date/Time Associated Diagnosis Comments US OB BPP W NON-STRESS 06/14/2025 11:24 PM EDT POCT URINALYSIS DIPSTICK Routine 06/13/2025 8:45 AM EDT 38 weeks gestation of ([facility]) Third trimester ([facility]) Conceived by in vitro fertilization Factor 5 Leiden mutation, heterozygous ([facility]) Insulin controlled gestational diabetes mellitus (GDM) during , antepartum ([facility]) US OB BPP W NON-STRESS 06/08/2025 9:04 AM EDT POCT URINALYSIS DIPSTICK Routine 05/30/2025 8:39 AM EDT Third trimester ([facility]) POCT URINALYSIS DIPSTICK Routine 05/26/2025 8:59 AM EDT Third trimester ([facility]) US OB BPP W NON-STRESS 05/24/2025 9:55 PM EDT US OB BPP W NON-STRESS 05/17/2025 8:07 AM EDT URINARY TRACT INFECTION (HTRX) Routine 05/16/2025 9:46 AM EDT POCT URINALYSIS DIPSTICK Routine 05/16/2025 8:43 AM EDT 34 weeks gestation of ([facility]) Third trimester ([facility]) US OB BPP W NON-STRESS 05/10/2025 6:23 PM EDT US OB FOLLOW UP TRANSABDOMINAL APPROACH Routine 05/10/2025 8:32 AM EDT Insulin controlled gestational diabetes mellitus (GDM) during , antepartum ([facility]) Gestational diabetes mellitus (GDM), antepartum, gestational diabetes method of control unspecified ([facility]) US OB BPP W NON-STRESS 05/04/2025 7:58 AM EDT POCT URINALYSIS DIPSTICK Routine 05/03/2025 9:11 AM EDT Third trimester ([facility]) US OB BPP W NON-STRESS 04/27/2025 8:07 [...] 04/18/2025 9:05 PM EDT TBH UA (CLEAN/CATCH) BELT DRESSER/MICRO IF IND. Routine 04/18/2025 9:05 PM EDT POCT URINALYSIS DIPSTICK Routine 04/18/2025 10:40 AM EDT Third trimester ([facility]) TBH TOTAL PROTEIN 24 HOUR URINE Routine [...] BPP W NON-STRESS 04/05/2025 5:58 PM EDT PAP SMEAR Routine 01/20/2025 12:00 AM EDT from Last 3 Months or Most Recently Relevant to Health Maintenance Results * US OB BPP W NON-STRESS (06/14/2025 11:24 PM EDT) Only the most recent of10 resultswithin the time period is included. Anatomical Region Laterality Modality Other 06/14/2025 11:2 4 PM EDT Narrative 06/14/2025 11:26 [place] [address] Ultrasound Report Signed Patient: KEVIN WHITE MR#: [id number] : 1995 Acct:[id number] Age/Sex: 29 / F ADM Date: 06/14/25 Loc: US Attending Dr: Belgica Scherer Ordering Physician: Belgica Scherer Date of Service: 06/14/25 Procedure(s): US OB BPP w non-stress Accession Number(s): [id number] cc: Belgica Scherer; Alfredo Donaldson D.O. The [place] [id number] Patient Name: KEVIN WHITE MRN: [id number] date: 1995 Sex: F Assigned Patient Location: US Current Patient Location: Accession/Order Number: [id number] Exam Date: 06/14/2025 23:22 Report Date: 06/14/2025 23:24 At the request of: BELGICA SCHERER Procedure: US OB BPP w non-stress Ultrasound biophysical profile HISTORY: Gestational diabetes Adequate breathing movement, gross body movement, tone and amniotic fluid volume for total score of 8 out of 8. The amniotic fluid index is 11.7 cm within normal limits. The heart rate 129 bpm. US/US OB BPP w non-stress IMPRESSION: Adequate ultrasound biophysical profile Impression dictated by: Zion Steen M.D. 06/14/2025 11:24 PM Dictation Location: [place] [address] Electronically authenticated by: [id number] Y Date: 06/14/2025 23:24 Dictated By: Zion Steen D.O. Signed By: 06/14/252325 DD/ 23 TD/TT: As400 Developer: Procedure Note Radiology, Radiologist, MD - 06/14/2025 [place] [address] Ultrasound Report Signed Patient: KEVIN WHITE TMR#: [id number] : 1995Acct:[id number] Age/Sex: 29 / FADM Date: 06/14/25 Loc: US Attending Dr: Belgica Scherer Ordering Physician: Belgica Scherer Date of Service: 06/14/25 Procedure(s): US OB BPP w non-stress Accession Number(s): [id number] cc: Belgica Scherer; Alfredo Donaldson D.O. The [address] [address] Patient Name: KEVIN WHITE MRN: [id number] date: 1995 Sex: F Assigned Patient Location: Current Patient Location: Accession/Order Number: [id number] Exam Date: 06/14/2025 23:22 Report Date: 06/14/2025 23:24 At the request of: BELGICA SCHERER Procedure: US OB BPP w non-stress Ultrasound biophysical profile HISTORY: Gestational diabetes Adequate breathing movement, gross body movement, tone and amniotic fluid volume for total score of 8 out of 8. The amniotic fluidindex is 11.7 cm within normal limits. The heart rate 129 bpm. US/US OB BPP w non-stress IMPRESSION: Adequate ultrasound biophysical profile Impression dictated by: Zion Steen M.D. 06/14/2025 11:24 PM Dictation Location: [place] [address] Electronically authenticated by: [id number] Y Date: 3:24 Dictated By: Zion Steen D.O. Signed By:06/14/252325 DD/ 23 TD/TT: As400 Developer: us Belgica Scherer NP [facility] Final Resul t * (ABNORMAL) POCT urinalysis dipstick manually resulted (06/13/2025 8:45 AM EDT) Only the most recent of6 resultswithin the time period is included. Color, UA Renita Clarity, UA Cloudy Glucose, [...] TEST ENTER/EDIT OR DERABLES Final Result * URINARY TRACT INFECTION (HTRX) (05/16/2025 9:46 AM EDT) ACINETOBACTER BAUMANII 0 19.961 - 24.689 ppm 05/17/2025 7:54 AM EDT [facility] ACINETOBACTER BAUMANII Not Detected 19.961 - 24.689 ppm 05/17/2025 7:54 AM EDT [facility] CITROBACTER FREUNDII 0 23.000 - 32.015 ppm 05/17/2025 7:54 AM EDT [facility] CITROBACTER FREUNDII Not Detected 23.000 - 32.015 ppm 05/17/2025 7:54 AM EDT [facility] ENTEROBACTER AEROGENES, CLOACAE 0 23.000 - 32.290 ppm 05/17/2025 7:54 AM EDT [facility] ENTEROBACTER AEROGENES, CLOACAE Not Detected 23.000 - 32.290 ppm 05/17/2025 7:54 AM EDT [facility] ENTEROCOCCUS FAECALIS, FAECIUM 0 26.000 - 33.043 ppm 05/17/2025 7:54 AM EDT [facility] ENTEROCOCCUS FAECALIS, FAECIUM Not Detected 26.000 - 33.043 ppm 05/17/2025 7:54 AM EDT [facility] ESCHERICHIA COLI 0 23.000 - 28.500 ppm 05/17/2025 7:54 AM EDT [facility] ESCHERICHIA COLI Not Detected 23.000 - 28.500 ppm 05/17/2025 7:54 AM EDT [facility] KLEBSIELLA PNEUMONIAE, OXYTOCA 0 23.000 - 31.865 ppm 05/17/2025 7:54 AM EDT [facility] KLEBSIELLA PNEUMONIAE, OXYTOCA Not Detected 23.000 - 31.865 ppm 05/17/2025 7:54 AM EDT [facility] MORGANELLA MORGANII 0 19.961 - 24.689 ppm 05/17/2025 7:54 AM EDT [facility] MORGANELLA MORGANII Not Detected 19.961 - 24.689 ppm 05/17/2025 7:54 AM EDT [facility] PROTEUS MIRABILIS, VULGARIS 0 23.000 - 28.500 ppm 05/17/2025 7:54 AM EDT [facility] PROTEUS MIRABILIS, VULGARIS Not Detected 23.000 - 28.500 ppm 05/17/2025 7:54 AM EDT [facility] PSEUDOMONAS AERUGINOSA 0 23.000 - 31.801 ppm 05/17/2025 7:54 AM EDT [facility] PSEUDOMONAS AERUGINOSA Not Detected 23.000 - 31.801 ppm 05/17/2025 7:54 AM EDT [facility] STAPHYLOCOCCUS AUREUS 0 26.000 - 31.595 ppm 05/17/2025 7:54 AM EDT [facility] STAPHYLOCOCCUS AUREUS Not Detected 26.000 - 31.595 ppm 05/17/2025 7:54 AM EDT [facility] STREPTOCOCCUS AGALACTIAE (GROUP B STREP) 0 26.000 - 32.435 ppm 05/17/2025 7:54 AM EDT [facility] STREPTOCOCCUS AGALACTIAE (GROUP B STREP) Not Detected 26.000 - 32.435 ppm 05/17/2025 7:54 AM EDT [facility] DEAN ALBICANS, PARAPSILOSIS, TROPICALIS 0 23.000 - 30.347 ppm 05/17/2025 7:54 AM EDT [facility] DEAN ALBICANS, PARAPSILOSIS, TROPICALIS Not Detected 23.000 - 30.347 ppm 05/17/2025 7:54 AM EDT [facility] DEAN GLABRATA 0 23.000 - 31.618 ppm 05/17/2025 7:54 AM EDT [facility] DEAN GLABRATA Not Detected 23.000 - 31.618 ppm 05/17/2025 7:54 AM EDT [facility] DEAN KRUSEI 0 23.000 - 30.873 ppm 05/17/2025 7:54 AM EDT [facility] DEAN KRUSEI Not Detected 23.000 - 30.873 ppm 05/17/2025 7:54 AM EDT [facility] SERRATIA MARCESCENS 0 23.000 - 31.581 ppm 05/17/2025 7:54 AM EDT [facility] SERRATIA MARCESCENS Not Detected 23.000 - 31.581 ppm 05/17/2025 7:54 AM EDT [facility] STREPTOCOCCUS PYOGENES (GROUP A STREP) 0 19.961 - 24.689 ppm 05/17/2025 7:54 AM EDT [facility] STREPTOCOCCUS PYOGENES (GROUP A STREP) Not Detected 19.961 - 24.689 ppm 05/17/2025 7:54 AM EDT [facility] STAPHYLOCOCCUS EPIDERMIDIS, HAEMOLYTICUS, LUGDUNENSIS, SAPROPHYTICUS (URINA 0 19.961 - 24.689 ppm 05/17/2025 7:54 AM EDT [facility] STAPHYLOCOCCUS EPIDERMIDIS, HAEMOLYTICUS, LUGDUNENSIS, SAPROPHYTICUS (URINA Not Detected 19.961 - 24.689 ppm 05/17/2025 7:54 AM EDT [facility] STAPHYLOCOCCUS EPIDERMIDIS, HAEMOLYTICUS, LUGDUNENSIS, SAPROPHYTICUS (URINA 0 19.961 - 24.689 ppm 05/17/2025 7:54 AM EDT [facility] STAPHYLOCOCCUS EPIDERMIDIS, HAEMOLYTICUS, LUGDUNENSIS, SAPROPHYTICUS (URINA Not Detected 19.961 - 24.689 ppm 05/17/2025 7:54 AM EDT [facility] Urine 05/16/2025 9:46 AM EDT 05/17/2025 2:09 AM EDT us Alfredo Donaldson DO LAB BLOOD ORDERABLES Final Resul t [facility] [address] [place] [id number] * US OB follow up transabdominal approach [...] AM EDT Narrative 04/19/2025 8:52 AM EDT [address] [address] Ultrasound Report Signed Patient: KEVIN WHITE MR#: [id number] : 1995 Acct:[id number] Age/Sex: 29 / F ADM Date: Loc: [facility] 254-[address]: Alfreod Donaldson D.O. Ordering Physician: Alfredo Donaldson D.O. Date of Service: 04/19/25 Procedure(s): US renal BI Accession Number(s): [id number] cc: Alfredo Donaldson D.O. [address] [address] Patient Name: KEVIN WHITE MRN: [id number] date: 1995 Sex: F Assigned Patient Location: LAB Current Patient Location: Accession/Order Number: [id number] Exam Date: 04/19/2025 08:46 Report Date: 04/19/2025 [...] 04/19/2025 8:49 AM Dictation Location: [place] [address] Electronically authenticated by: [id number] Y Date: 04/19/2025 08:49 Dictated By: Justina Munson M.D. Signed By: 04/19/25 0852 DD/ TD/TT: As400 Developer: Procedure Note Radiology, Radiologist, - 04/19/2025 [place] [address] Ultrasound Report Signed Patient: KEVIN WHITEMR#: [id number] : 1995Acct:[id number] Age/Sex: Date: Loc: [facility] 254-[address]: Alfredo Donaldson D.O. Ordering Physician: Alfredo Donaldson D.O. Date of Service: 04/19/25 Procedure(s): US renal BI Accession Number(s): [id number] cc: Alfredo Donaldson D.O. The [place] [address] Patient Name: KEVIN WHITE MRN: [id number] date: 1995 Sex: F Assigned Patient Location: LAB Current Patient Location: Accession/Order Number: [id number] Exam Date: 04/19/2025 08:46 Report Date: 04/19/2025 [...] 04/19/2025 8:49 AM Dictation Location: [place] [address] Electronically authenticated by: [id number] Y Date: 508:49 Dictated By: Justina Munson M.D. Signed By:04/19/25 0852 DD/ 0849 TD/TT: As400 Developer: Alfredo Mendoza DO [facility] Final Result * (ABNORMAL) TBH GLUCOSE BLOOD (04/18/2025 11:43 PM EDT) GLUCOSE 108(H) 74 - 106 mg/dL TBH 04/18/2025 11:4 3 PM EDT 04/19/2025 12:07 AM EDT Narrative CLINISYNC - 04/19/2025 12:15 AM EDT Alfredo Mendoza DO CLIN[facility] Final Result Performing Organization Address [facility] Co de Phone Number [facility] * (ABNORMAL) TBH CREATININE (04/18/2025 11:43 PM EDT) Only the most recent of2 resultswithin the time period is included. CREATININE 0.44(L) 0.55 - 1.02 mg/dL TBH TBH EGFR-AF SAUDI ARABIAN >60 >=60 mL/min/1.7 3m 2 TBH TBH EGFR-NON AF SAUDI ARABIAN >60 >=60 mL/min/1.7 3m 2 TBH 04/18/2025 11:4 3 PM EDT 04/19/2025 12:48 AM EDT Narrative CLINISYNC - 04/19/2025 12:56 AM EDT Alfredo [facility]endoza DO [facility] Final Result [facility] * (ABNORMAL) ALL CBC WITH AUTO DIFF (04/18/2025 11:43 PM EDT) Only the most recent of2 resultswithin the time period is included. [facility] TB WBC 8.0 4.0 - 11.0 10 [...] - 04/18/2025 11:57 PM EDT us Alfredo Veeo DO CLINISYNC Final Result CLINMAXIMINOOR TB * ALL BUN (04/18/2025 11:43 PM EDT) Only the most recent of2 resultswithin the time period is included. BLOOD UREA NITROGEN 13.0 7.0 - 18.0 mg/dL TBH 04/18/2025 11:4 3 PM EDT 04/18/2025 11:53 PM EDT Narrative CLINISYNC - 04/19/2025 12:04 AM EDT us Alfredo Mendoza DO CLINISYNC Final Result CLINMAXIMINOOR TB * (ABNORMAL) TBH URINE MICROSCOPIC ONLY (04/18/2025 9:05 PM EDT) Pathologist [facility] TBH WBC 5-10(A) NONE SEEN #/HPF TBH [...] us Alfredo Mendoza DO CLINISYNC Final Result CLINMAXIMINOOR TB * (ABNORMAL) TBH UA (CLEAN/CATCH) BELT DRESSER/MICRO IF IND. (04/18/2025 9:05 PM EDT) COLOR [...] CLINISYNC Final Result Performing Organization Address [facility] Co de Phone Number CLINISYNC TBH * TBH CREATININE URINE (04/18/2025 9:05 PM EDT) CREATININE URINE RANDOM 84.16 20.00 - 300.00 mg/dL TBH 04/18/2025 9:05 PM EDT 04/18/2025 10:44 PM EDT Narrative CLINISYNC - 04/18/2025 10:51 PM EDT [employer] DO CLINISYNC Final Result Performing Organization Address [facility] de Phone Number CLINIS[facility]NC TBH * (ABNORMAL) TBH TOTAL PROTEIN [...] CLINISYNC Final Result Performing Organization Address [facility]/State/ZIP Co de Phone Number [facility] * SRMCOH PROTHROMBIN TIME INR W/O [...] CLINISYNC Final Result Performing Organization Address [facility] Co de Phone Number [facility] * (ABNORMAL) [facility] AST (04/11/2025 4:52 PM EDT) ASPARTATE AMINO TRANSFERASE 11(L) 15 - 37 U/L TB 04/11/2025 4:52 PM EDT 04/11/2025 4:56 PM EDT Narrative CLINISYNC - 04/11/2025 5:52 PM EDT Alfredo Mendoza DO CLINISYNC Final Result Performing Organization Address [facility]/ZIP Co de Phone Number [facility] * [facility] APTT (04/11/2025 4:52 PM EDT) PARTIAL THROMBOPLASTIN TIME 27.3 22.3 - 36.2 sec TB 04/11/2025 4:52 PM EDT 04/11/2025 4:56 PM EDT Narrative CLINISYNC - 04/11/2025 5:57 PM EDT Alfredo Mendoza DO CLINISYNC Final Result Performing Organization Address [facility]/ZIP Co de Phone Number [facility] * ALL URIC ACID (04/11/2025 4:52 PM EDT) URIC ACID 2.8 2.6 - 6.0 mg/dL TB 04/11/2025 4:52 PM EDT 04/11/2025 4:56 PM EDT Narrative CLINISYNC - 04/11/2025 5:52 PM EDT Alfredo Mendoza DO CLINISYNC Final Result Performing Organization Address [facility] de Phone Number CLINISYNC [facility] * ALL LDH (04/11/2025 4:52 PM EDT) LACTATE DEHYDROGENASE 153 81 - 234 U/L TB 04/11/2025 4:52 PM EDT 04/11/2025 4:56 PM EDT Narrative CLINISYNC - 04/11/2025 5:52 PM EDT [facility] Mendoza DO CLINISYNC Final Result Performing Organization Address [facility] de Phone Number CL[facility]NC [facility] * Pap Smear (01/20/2025 12:00 AM EDT) Swab Cervical swab / Unknown Mendoza Nurse [facility] Ob LAB CYTOLOGY ORDERABLES Final Result Performing Organization Address [facility] de Phone Number EXTERNAL LAB from Last 3 Months or Most Recently Relevant to Health Maintenance Additional Health Concerns Active Problems Noted Date Diagnosed Date OB Reminders 11/26/2024 Insurance [facility] Member Subscriber Plan / Payer (Ef fective 2024-Present) Name:Kevin White Relation to Subscriber:Spouse Name:CRISTINA WHITE Date of :1990 Address: [address] [place], [place] [id number] Payer ID:Not on file Type:Not on file Address: [address] [place] [address]
--- OUTSIDE RECORDS SUMMARY | 2025-06-17 17:07 | XMS_ITS | Encounter Summary ---
Author Organization [facility] Address [address] [place] [address] Care Team Providers Care Modular Home Crew Member Name Role Phone Unavailable Primary Care Provider Unavailabl e Encounter Details Date Type Department Care Team (Late st Contact Info) Description 01/27/2025 Orders Only [facility] [address] [place] [phone] Damaris Lopez LPN [address] [place] [id number] Social History Tobacco Use Types Packs/Day Years [...]
--- OUTSIDE RECORDS SUMMARY | 2025-06-17 17:07 | XMS_ITS | Encounter Summary ---
Author Organization [facility] Address [address] [place] [address] Care Team Providers Care Pot Annealer Name Role Phone Unavailable Primary Care Provider Unavailabl e Encounter Details Date Type Department Care Team (Late st Contact Info) Description 03/18/2025 Abstract [facility] [address] [place] [phone] Yue Dumont MA Social History Tobacco Use [...]
--- OUTSIDE RECORDS SUMMARY | 2025-06-17 17:07 | XMS_ITS | Encounter Summary ---
Author Organization [facility] Address [address] [place] [address] Care Team Providers Care Parts Data Writer Name Role Phone Unavailable Primary Care Provider Unavailabl e Encounter Details Date Type Department Care Team (Late st Contact Info) Description 01/10/2025 Abstract [facility] [address] [place] [phone] Cain Donaldson DO [address] [place] [address] Social History Tobacco Use Types Packs/Day Years [...]
--- OUTSIDE RECORDS SUMMARY | 2025-06-17 17:07 | XMS_ITS | Encounter Summary ---
Author Organization [facility] Address [address] [place] [address] Care Team Providers Care Hydraulic Press In Operator Name Role Phone Unavailable Primary Care Provider Unavailabl e Encounter Details Date Type Department Care Team (Late st Contact Info) Description 04/14/2025 Abstract [facility] [address] [place] [phone] Yue Dumont MA Social History Tobacco Use [...]
--- OUTSIDE RECORDS SUMMARY | 2025-06-17 17:08 | XMS_ITS | Encounter Summary ---
Author Organization [facility] tem Address [facility]-[id number] [address] [place] [address] Care Team Providers Care Cage Maker Machine Name Role Phone Unavailable Primary Care Provider Unavailabl e Encounter Details Date Type Department Care Team (Late st Contact Info) Description 12/30/2024 Orders Only Maternal- Medicine at [facility] [address] [place] [address] Ref Prov, [place] [address] Social History Tobacco Use Types Packs/Day Years [...]
--- OUTSIDE RECORDS SUMMARY | 2025-06-17 17:08 | XMS_ITS | Encounter Summary ---
Author Organization [facility] tem Address [facility]-[id number] [address] [place] [address] Care Team Providers Care Inspector Machine Parts Name Role Phone Unavailable Primary Care Provider Unavailabl e Encounter Details Date Type Department Care Team (Late st Contact Info) Description 02/17/2025 Orders Only Maternal- Medicine at [facility] [address] [place] [phone] Christy Prado LPN Insulin controlled gestational diabetes [...] calories affecting , antepartum ([facility]) Bipolar disorder, in full remission, most recent episode depressed documented in this encounter Results * Unlisted Lab Test (02/08/2025) 02/08/2025 us Gricelda Chadwick MD LAB BLOOD ORDERABLES Final Resul t SUNManaged by Q documented in this encounter Visit Diagnoses Diagnosis [...]
--- OUTSIDE RECORDS SUMMARY | 2025-06-17 17:08 | XMS_ITS | Encounter Summary ---
Author Organization [facility] Address [address] [place] [address] Care Team Providers Care Machine Folder Name Role Phone Unavailable Primary Care Provider Unavailabl e Encounter Details Date Type Department Care Team (Late st Contact Info) Description 06/08/2025 Clinisync Result Encounter [facility] External Department Unsolicited Belgica Scherer, LEEANN [address] [facility] [place] [address] Social History Tobacco Use Types Packs/Day [...] Diagnosis Comments US OB BPP W NON-STRESS 06/08/2025 9:04 AM EDT documented in this encounter Results * US OB BPP W NON-STRESS (06/08/2025 9:04 AM EDT) Anatomical Region Laterality Modality Other 06/08/2025 9:04 AM EDT Narrative 06/08/2025 9:07 AM EDT The [place] [id number] Ultrasound Report Signed Patient: FANNIE WHITE MR#: [id number] : 1995 Acct:[id number] Age/Sex: 29 / F ADM Date: 06/07/25 Loc: US Attending Dr: Belgica Scherer Ordering Physician: Belgica Scherer Date of Service: 06/07/25 Procedure(s): US OB BPP w non-stress Accession Number(s): [id number] cc: Belgica Scherer; Cain Donaldson D.O. The [address] [address] Patient Name: FANNIE WHITE MRN: [id number] date: 1995 Sex: F Assigned Patient Location: [facility] Current Patient Location: Accession/Order Number: [id number] Exam Date: 06/08/2025 09:04 Report Date: 06/08/2025 09:04 At the request of: BELGICA SCHERER Procedure: US OB BPP w non-stress Biophysical profile. Reason for exam: Gestational diabetes. COMPARISON: 05/24/2025 TECHNIQUE: Transabdominal imaging of the gravid uterus was obtained. FINDINGS: The sorter pricer reports a BPP of 8 out of 8. ZITA is normal at 15.1 cm. heart rate 157 bpm. US/US OB BPP w non-stress IMPRESSION: BPP 8 out of 8. Impression dictated by: Mike Huerta Jr., D.O. 06/08/2025 9:04 AM Dictation Location: [place] [address] Electronically authenticated by: [id number] Y Date: 06/08/2025 09:04 Dictated By: Mike Huerta M.D. Signed By: 06/08/25906 DD/ 3 TD/TT: Computer Customer Support Specialist: Procedure Note Radiology, Radiologist, - 06/08/2025 The [place] [id number] Ultrasound Report Signed Patient: FANNIE WHITE TMR#: [id number] : 1995Acct:[id number] Age/Sex: 29 / FADM Date: 06/07/25 Loc: US Attending Dr: Belgica Scherer Ordering Physician: Belgica Scherer Date of Service: 06/07/25 Procedure(s): US OB BPP w non-stress Accession Number(s): [id number] cc: Belgica Scherer; Cain Donaldson D.O. [place] [id number] Patient Name: FANNIE WHITE MRN: [id number] date: 1995 Sex: F Assigned Patient Location: [facility] Current Patient Location: Accession/Order Number: [id number] Exam Date: 06/08/2025 09:04 Report Date: 06/08/2025 09:04 At the request of: BELGICA SCHERER Procedure: US OB BPP w non-stress Biophysical profile. Reason for exam: Gestational diabetes. COMPARISON: 05/24/2025 TECHNIQUE: Transabdominal imaging of the gravid uterus was obtained. FINDINGS: The sorter pricer reports a BPP of 8 out of 8. ZITA is normal at15.1 cm. heart rate 157 bpm. US/US OB BPP w non-stress IMPRESSION: BPP 8 out of 8. Impression dictated by: Mike Huerta Jr., D.O. 06/08/2025 9:04 AM Dictation Location: [place] [address] Electronically authenticated by: [id number] Y Date: 509:04 Dictated By: Mike Huerta M.D. Signed By:06/08/25906 DD/ 3 TD/TT: Computer Customer Support Specialist: Belgica Scherer FREIGHT REPRESENTATIVE [facility] Final Resul t documented in this encounter Visit Diagnoses Not on filedocumented in this encounter Additional Health Concerns Active Problems Noted Date Diagnosed Date OB Reminders 11/26/2024 documented as of this encounter
--- OUTSIDE RECORDS SUMMARY | 2025-06-17 17:08 | XMS_ITS | Encounter Summary ---
Author Organization [facility] Address [address] [place] [address] Care Team Providers Care Oracle Fusion Developer Name Role Phone Unavailable Primary Care Provider Unavailabl e Encounter Details Date Type Department Care Team (Late st Contact Info) Description 06/14/2025 Clinisync Result Encounter [facility]OMS External Department Unsolicited George Scherer, LEEANN [address] [facility] [place] [address] Social History Tobacco Use Types [...] BPP W NON-STRESS 06/14/2025 11:24 PM EDT documented in this encounter Results * US OB BPP W NON-STRESS (06/14/2025 11:24 PM EDT) Anatomical Region Laterality Modality Other 06/14/2025 11:2 4 PM EDT Narrative 06/14/2025 11:26 PM EDT The [place] [id number] Ultrasound Report Signed Patient: FANNIE WHITE MR#: [id number] : 1995 Acct:[id number] Age/Sex: 29 / F ADM Date: 06/14/25 Loc: US Attending Dr: George Scherer Ordering Physician: George Scherer Date of Service: 06/14/25 Procedure(s): US OB BPP w non-stress Accession Number(s): [id number] cc: George Scherer; Cain Donaldson D.O. The [address] [address] Patient Name: FANNIE WHITE MRN: [id number] date: 1995 Sex: F Assigned Patient Location: US Current Patient Location: Accession/Order Number: [id number] Exam Date: 06/14/2025 23:22 Report Date: 06/14/2025 23:24 At the request of: GEORGE SCHERER Procedure: [...] Steen M.D. 06/14/2025 11:24 PM Dictation Location: [place] [address] Electronically authenticated by: [id number] Y Date: 06/14/2025 23:24 Dictated By: Zion Steen D.O. Signed By: 06/14/252325 DD/ 23 TD/TT: Heel Shaper: Procedure Note Radiology, Radiologist, - 06/14/2025 The [place] [id number] Ultrasound Report Signed Patient: FANNIE WHITE TMR#: [id number] : 1995Acct:[id number] Age/Sex: 29 / FADM Date: 06/14/25 Loc: US Attending Dr: George Scherer Ordering Physician: George Scherer Date of Service: 06/14/25 Procedure(s): US OB BPP w non-stress Accession Number(s): [id number] cc: George Scherer; Cain Donaldson D.O. [place] [address] Patient Name: FANNIE WHITE MRN: [id number] date: 1995 Sex: F Assigned Patient Location: US Current Patient Location: Accession/Order Number: [id number] Exam Date: 06/14/2025 23:22 Report Date: 06/14/2025 23:24 At the request of: GEORGE SCHERER Procedure: [...] Steen M.D. 06/14/2025 11:24 PM Dictation Location: [place] [address] Electronically authenticated by: [id number] Y Date: 3:24 Dictated By: Zion Steen D.O. Signed By:06/14/252325 DD/ 23 TD/TT: Heel Shaper: George Scherer MARINE INSURANCE CLAIM EXAMINER [facility] Final Resul t documented in this encounter Visit Diagnoses Not on filedocumented in this encounter Additional Health Concerns Active Problems Noted Date Diagnosed Date OB Reminders 11/26/2024 documented as of this encounter
--- OUTSIDE RECORDS SUMMARY | 2025-06-17 17:08 | XMS_ITS | Encounter Summary ---
Author Organization [facility] tem Address [facility]-W29914 [address] [place] [address] Care Team Providers Care Marker Delivery Name Role Phone Unavailable Primary Care Provider Unavailabl e Encounter Details Date Type Department Care Team (Late st Contact Info) Description 06/07/2025 Telephone Maternal- Medicine at [facility] [address] [place] [phone] Sonya Lomax, RN Social History Tobacco Use [...] Telephone Encounter - Sonya Lomax RN - 06/07/2025 6:21 PM EDT Called pt to discuss her insulin change for this week and received voicemail. Left her a message that Eva Mccann reviewed her blood sugars and would like her to increase her lantus in the evening to 29 units. Asked her to please call back to verify that she got this new insulin change for this week. documented in this encounter Plan of Treatment Not on file documented as of this encounter Visit Diagnoses Diagnosis Insulin controlled gestational diabetes mellitus (GDM) in second trimester- Primary documented in this encounter Additional Health Concerns Assessment Noted Time PHQ-9 Depression Total Score: 2 07/03/20 16 9:00 AM EDT documented as of this encounter
--- OUTSIDE RECORDS SUMMARY | 2025-06-17 17:08 | XMS_ITS | Encounter Summary ---
Author Organization [facility] tem Address [facility]-[id number] [address] [place] [address] Care Team Providers Care Media Theorist And Author Of Name Role Phone Unavailable Primary Care Provider Unavailabl e Encounter Details Date Type Department Care Team (Late st Contact Info) Description 06/13/2025 Telephone Maternal- Medicine at [facility] [address] [place] [phone] Sonya Lomax, RN Social History Tobacco Use [...] Sonya Lomax RN - 06/13/2025 1:25 PM EDT Called pt and dicussed her blood sugars and she has all been in target since 2 days after her last adjustment on the . She will be induced on Friday night the . Fasting this morning was 85. documented in this encounter Plan of Treatment Not on file documented as of this encounter Visit Diagnoses Diagnosis Insulin controlled gestational diabetes mellitus (GDM) in second trimester- Primary documented in this encounter Additional Health Concerns Assessment Noted Time PHQ-9 Depression Total Score: 2 07/03/20 16 9:00 AM EDT documented as of this encounter
--- OUTSIDE RECORDS SUMMARY | 2025-06-17 17:08 | XMS_ITS | Encounter Summary ---
Author Organization [facility] tem Address [id number] [address] [place] [address] Care Team Providers Care Hot Mill Tin Roller Name Role Phone Unavailable Primary Care Provider Unavailabl e Encounter Details Date Type Department Care Team (Late st Contact Info) Description 06/07/2025 Orders Only [facility] [address] [place] [phone] Eva Mccann, SLOT MACHINE [facility] [address] [facility] [address] [place] [address] Insulin controlled gestational diabetes mellitus (GDM) in [...]
--- OUTSIDE RECORDS SUMMARY | 2025-06-17 17:08 | XMS_ITS | Encounter Summary ---
Author Organization [facility] tem Address [facility]-[id number] [address] [place] [address] Care Team Providers Care Painter Sign Maintenance Name Role Phone Unavailable Primary Care Provider Unavailabl e Encounter Details Date Type Department Care Team (Late st Contact Info) Description 01/27/2025 Orders Only Maternal- Medicine at [facility] [address] [place] [phone] Sintia Martinez, MODERN LANGUAGES PROFESSOR-MEASURER [address] [place] [address] Social History Tobacco Use Types Packs/Day Years [...]
--- OUTSIDE RECORDS SUMMARY | 2025-06-17 17:08 | XMS_ITS | Encounter Summary ---
Author Organization [facility] Address [address] [place] [address] Care Team Providers Care Labor Contract Analyst Name Role Phone Unavailable Primary Care Provider Unavailabl e Encounter Details Date Type Department Care Team (Late st Contact Info) Description 06/13/2025 Bamboo flowsheet [facility] [address] [place] [address] Christy Schwartz PA [address] [place], [facility] Social History Tobacco Use Types Packs/Day [...]
--- OUTSIDE RECORDS SUMMARY | 2025-06-17 17:08 | XMS_ITS | Encounter Summary ---
Author Organization [facility] tem Address [facility]-[id number] [address] [place] [address] Care Team Providers Care Supervisor Coal Handling Name Role Phone Unavailable Primary Care Provider Unavailabl e Encounter Details Date Type Department Care Team (Late st Contact Info) Description 06/10/2025 Telephone Maternal- Medicine at [facility] [address] [place] [address] Naomy Thompson RN [address] [address] Social History Tobacco Use Types Packs/Day Years [...] encounter Miscellaneous Notes * Telephone Encounter - Naomy Thompson RN - 06/10/2025 11:34 AM EDTSumkaleb: JENNY Blood Glucose Log & Insulin Dose Change Called. No answer. Message left inquiring whether received message earlier this week regarding Eva Mccann CNM reviewed blood glucose log and increased Lantus evening dose to 29 Units daily. Requestedreturn call or message to confirm received this insulin dose change. Change[employer] message also sent. documented in this encounter Plan of Treatment Not on file documented as of this encounter Visit Diagnoses Diagnosis Insulin controlled gestational diabetes mellitus (GDM) in second trimester- Primary documented in this encounter Additional Health Concerns Assessment Noted Time PHQ-9 Depression Total Score: 2 07/03/20 16 9:00 AM EDT documented as of this encounter
--- OUTSIDE RECORDS SUMMARY | 2025-06-17 17:08 | XMS_ITS | Encounter Summary ---
Author Organization [facility] Address [address] [place] [address] Care Team Providers Care Cardiothoracic Icu Rn Name Role Phone Unavailable Primary Care Provider Unavailabl e Encounter Details Date Type Department Care Team (Late st Contact Info) Description 06/06/2025 Bamboo flowsheet [facility] [address] [place] [phone] Christy Schwartz PA [address] [facility] [address] [place], [facility] Social History Tobacco [...]
--- OUTSIDE RECORDS SUMMARY | 2025-06-17 17:08 | XMS_ITS | Encounter Summary ---
Author Organization [facility] tem Address [facility]-[id number] [address] [place] [address] Care Team Providers Care Biomaterials Engineer Name Role Phone Unavailable Primary Care Provider Unavailabl e Encounter Details Date Type Department Care Team (Late st Contact Info) Description 05/30/2025 Telephone Maternal- Medicine at [facility] [address] [place] [address] Sonya Lomax, RN Social History Tobacco Use [...] Telephone Encounter - Sonya Lomax RN - 05/30/2025 4:01 PM EDT Called pt due to 3 elevations. Received voicemail. Left her a message that her numbers looked good.She had 3 elevations no pattern noted and one night she forgot her insulin. No change for this weekand she will send in new blood sugars [...]
--- OUTSIDE RECORDS SUMMARY | 2025-06-17 17:10 | XMS_ITS | CCD ---
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 Name Role Phone Unavailable Primary Care Provider [...] Referring Unavailable CHRISTY SCHWARTZ Referring Unavailable MENDOZA, CAIN R Referring Unavailable KENZIE DOTSON Attending Unavailable [...] Unavailable MENDOZA, Cain R Primary Care Physician [phone] Aissatou Castillo Attending Unavailable MENDOZA, Cain R [...] , resulting from in vitro fertilization, antepartum ([facility]) 1 kit Daily Use four times daily [...] , resulting from in vitro fertilization, antepartum ([facility]) Apply 1 Pad topically Daily Use four [...] ity US OB BPP W NON-STRESS on 06-14-2025 [place] [address] Ultrasound Report Signed Patient: FANNIE CONLEY MR#: [id number] : 1995 Acct:[id number] Age/Sex: 29 / F ADM Date: 06/14/25 Loc: US Attending Dr: George Scherer Ordering Physician: George Scherer Date of Service: 06/14/25 Procedure(s): US OB BPP w non-stress Accession Number(s): [id number] cc: George Scherer; Cain Donaldson D.O. [place] [address] Patient Name: FANNIE CONLEY MRN: [facility]:[id number] date: 1995 Sex: F Assigned Patient Location: US Current Patient Location: Accession/Order Number: [id number] Exam Date: 06/14/2025 23:22 Report Date: 06/14/2025 [...] Steen M.D. 06/14/2025 11:24 PM [facility]ictation [facility] Electron[facility] authenticated by: [id number] Y Date: 06/14/2025 23:24 Dictated By: Zion Steen D.O. Signed By: 06/14/252325 DD/ 23 TD/TT: Oracle Specialist: [facility] Radiology, Radiologist, - 06/14/2025 [place] [address] Ultrasound Report Signed Patient: FANNIE CONLEY MR#: [id number] : 1995 Acct:[id number] Age/Sex: 29 / F ADM Date: 06/14/25 Loc: US Attending Dr: George Scherer Ordering Physician: George Scherer Date of Service: 06/14/25 Procedure(s): US OB BPP w non-stress Accession Number(s): [id number] cc: George Scherer; Cain Donaldson D.O. The [place] [address] Patient Name: FANNIE CONLEY MRN: [facility]:[id number] date: 1995 Sex: F Assigned Patient Location: US Current Patient Location: Accession/Order Number: [id number] Exam Date: 06/14/2025 23:22 Report Date: 06/14/2025 [...] Steen M.D. 06/14/2025 11:24 PM Dictation Location: [employer] Electronically authenticated by: [id number] Y Date: 06/14/2025 23:24 Dictated By: Zion Steen D.O. Signed By: 06/14/252325 DD/ 23 TD/TT: Oracle Specialist: [facility] Radiology Study observation (narrative) [facility] US OB BPP W NON-STRESS Ordered By: Radiologist Radiology on 06-14-2025 [facility] Work Phone: Urinalysis macro (dipstick) panel (U)on 06-13-2025 Bilirubin, UA Negative Negative - 4(70) +++ mg/dL [facility] Blood, UA Negative Negative - 50 Warren/mcL [facility] Clarity, UA Cloudy [facility] Color, UA Renita [facility] Glucose, UA Negative Negative - 2000(110) ++++ mg/dL [facility] Interpretation and review of laboratory results Abnormal [facility] Ketones, UA Negative Negative - 160(16) ++++ mg/dL [facility] Leukocytes, UA Positive Negative - 500+++ Malick/mcL [facility] Comment on above: 3+ Nitrite, UA Negative Negative - Positive [facility] pH, UA 6.5 5 - 9 [facility] Protein, UA Positive Negative - 2000(20) ++++ mg/dL [facility] Spec Grav, UA 1.015 1 - 1.03 [facility] Urobilinogen, UA 1.0 0.2 - 12 mg/dL [facility] US OB BPP W NON-STRESS on 06-08-2025 [place] [address] Ultrasound Report Signed Patient: FANNIE CONLEY MR#: [id number] : 1995 Acct:[id number] Age/Sex: 29 / F ADM Date: 06/07/25 Loc: Attending Dr: George Scherer Ordering Physician: George Scherer Date of Service: 06/07/25 Procedure(s): US OB BPP w non-stress Accession Number(s): [id number] cc: George Scherer; Cain Donaldson D.O. The [address] [address] Patient Name: FANNIE CONLEY MRN: [facility]:[id number] date: 1995 Sex: F Assigned Patient Location: [facility] Current Patient Location: Accession/Order Number: [id number] Exam Date: 06/08/2025 09:04 Report Date: 06/08/2025 09:04 At the request of: GEORGE SCHERER Procedure: US OB BPP w non-stress Biophysical profile. Reason for exam: Gestational diabetes. COMPARISON: 05/24/2025 TECHNIQUE: Transabdominal imaging of the gravid uterus was obtained. 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 ZITA is normal at 15.1 cm. heart rate 157 bpm. US/US OB BPP w non-stress IMPRESSION: BPP 8 out of 8. Impression dictated by: Mike Huerta Jr., D.O. 06/08/2025 9:04 AM Dictation Location: [place] [address] Electronically authenticated by: [id number] Y Date: 06/08/2025 09:04 Dictated By: Mike Huerta M.D. Signed By: 06/08/25906 DD/ 3 TD/TT: Oracle Specialist: [facility] Radiology, Radiologist, MD - 06/08/2025 [place] [address] Ultrasound Report Signed Patient: FANNIE CONLEY MR#: [id number] : 1995 Acct:[id number] Age/Sex: 29 / F ADM Date: 06/07/25 Loc: US Attending Dr: George Scherer Ordering Physician: George Scherer Date of Service: 06/07/25 Procedure(s): US OB BPP w non-stress Accession Number(s): [id number] cc: George Scherer; Cain Donaldson D.O. The [place] [id number] Patient Name: AFNNIE CONLEY MRN: [facility]:[id number] date: 1995 Sex: F Assigned Patient Location: [facility] Current Patient Location: Accession/Order Number: [id number] Exam Date: 06/08/2025 09:04 Report Date: 06/08/2025 09:04 At the request of: GEORGE SCHERER Procedure: US OB BPP w non-stress Biophysical profile. Reason for exam: Gestational diabetes. COMPARISON: 05/24/2025 TECHNIQUE: Transabdominal imaging of the gravid uterus was obtained. 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 ZITA is normal at 15.1 cm. heart rate 157 bpm. US/US OB BPP w non-stress IMPRESSION: BPP 8 out of 8. Impression dictated by: Mike Huerta Jr. DRufino 06/08/2025 9:04 AM Dictation Location: [place] [address] Electronically authenticated by: [id number] Y Date: 06/08/2025 09:04 Dictated By: Mike Huerta M.D. Signed By: 06/08/25906 DD/ 3 TD/TT: Oracle Specialist: [facility] Radiology Study observation (narrative) [facility] US OB BPP W NON-STRESS Ordered By: Radiologist Radiology on 06-08-2025 [facility] Work Phone: Urinalysis macro (dipstick) panel (U)on 05-30-2025 Bilirubin, UA Negative Negative - 4(70) +++ mg/dL [facility] Blood, UA Negative Negative - 50 Warren/mcL [facility] Clarity, UA Clear [facility] Color, UA Yellow [facility] Glucose, UA Negative Negative - 2000(110) ++++ mg/dL [facility] Interpretation and review of laboratory results Abnormal [facility] Ketones, UA Negative Negative - 160(16) ++++ mg/dL [facility] Leukocytes, UA Moderate Negative - 500+++ Malick/mcL [facility] Nitrite, UA Negative Negative - Positive [facility] pH, UA 6.5 5 - 9 [facility] Protein, UA Negative Negative - 2000(20) ++++ mg/dL [facility] Spec Grav, UA 1.015 1 - 1.03 [facility] Urobilinogen, UA 0.2 0.2 - 12 mg/dL [facility] C Urineon 05-29-2025 Bacteria identified Cx Nom (U) Microbiology PROCEDURE: Urine Culture [R1] SOURCE: U Random BODY SITE: COLLECTED DATE/TIME: 05/27/2025 10:11 EDT RECEIVED DATE/TIME: 05/27/2025 17:02 EDT START DATE/TIME: 05/27/2025 17:02 EDT FREE TEXT SOURCE: Jonathan GORE, Aissatou Yusuf MD FINAL REPORTS Final Report [] Verified Date/Time: 05/29/2025 07:20 EDT 800 cfu/ml Mixed skin contaminants Performing Locations R1: This test was performed at: [facility], [address] [place] [address], [address]- , [place], Normal [facility] Comment on above: Performed By: #### 2 [id number] #### [facility] [address] [place] [address] Ambulatory Visit Summaryon 0 05-27-2025 Ambulatory Visit [...] Aissatou Castillo MD Where: [facility] [address] [place] [address]- You Need to Schedule the Following Appointments Follow Up with Aissatou Castillo MD, URL, URO When: Where: Medications What How Much [...] ??? E (more content not included)... Normal [facility] Reminderson 05-27-2025 Reminders Reminders From: Jacqueline Rascon To: MICHAEL Castillo; Sent: 05/27/2025 10:10:01 EDT Show up: 10/27/2025 09:09:00 EST Subject: [address] Due Date/Time: 11/27/2025 09:09:00 EST Reminder Message Please Remember to: Please call pt to schedule [address] [facility]. Order in 05/27/25 encounter. Thanks! Normal [facility] Urology Office/Clinic Noteon 05-27-2025 Urology Office/Clinic [...] 1. Kidney stones (N20.0: Calculus of kidney) [facility] 04/19/25 [facility] - An almost 1 cm [...] 90 oz fluid daily (add 1/4 cup lemon/oneida daily) -Diet mods (more fruits/veg, limit animal protein and salt) Follow-up With When Contact Information Jonathan GORE, Aissatou Nguyen, URL, URO Additional Instructions: [address] AP wo con ([facility]) Patient Education Dietary Guidelines to Help Prevent [...] Protein Urine Dipstick: Negative (05/27/25 09:35:00) Specific Gooding Urine Dipstick: 1.020 (05/27/25 09:35:00) Urine Appearance Urine Dipstick: Clear (05/27/25 09:35:00) Urine Color Urine Dipstick: Yellow (05/27/25 09:35:00) Urobilinogen Urine Dipstick: Normal 0.2-1 EU/dl (05/27/25 09:35:00) pH Urine Dipstick: 7 (05/27/25 09:35:00) Normal [facility] Comment on above: Result Comment: Elec tronically Signed By: Aissatou Castillo MD\.br\Date and Time Signed: 05/27/25 10:29 EDT\.br\Electronically Co-Signed By: Jacqueline Rascon\.br\Date and Time Co-Signed: 05/27/25 10:09 EDT Urinalysis macro (dipstick) panel (U)on 05-26-2025 Bilirubin, UA Negative Negative - 4(70) +++ mg/dL [facility] Blood, UA Positive Negative - 50 Warren/mcL [facility] Comment on above: Small Clarity, UA Clear [facility] Color, UA Yellow [facility] Glucose, UA Negative Negative - 1999(110) ++++ mg/dL [facility] Interpretation and review of laboratory results Abnormal [facility] Ketones, UA Negative Negative - 160(16) ++++ mg/dL [facility] Leukocytes, UA Positive Negative - 500+++ Malick/mcL [facility] Comment on above: small Nitrite, UA Negative Negative - Positive [facility] pH, UA 6.5 5 - 9 [facility] Protein, UA Negative Negative - 1999(20) ++++ mg/dL [facility] Spec Grav, UA 1.01 1 - 1.03 [facility] Urobilinogen, UA 0.2 0.2 - 12 mg/dL [facility] US OB BPP W NON-STRESS on 05-24-[address] [address] Ultrasound Report Signed Patient: FANNIE CONLEY MR#: [id number] : 1995 Acct:[id number] Age/Sex: 29 / F ADM Date: 05/24/25 Loc: US Attending Dr: George Scherer Ordering Physician: George Scherer Date of Service: 05/24/25 Procedure(s): US OB BPP w non-stress Accession Number(s): [id number] cc: George Scherer; Cain Donaldson D.O. The [place] [id number] Patient Name: FANNIE CONLEY MRN: [facility]:[id number] date: 1995 Sex: F Assigned Patient Location: [facility] Current Patient Location: Accession/Order Number: [id number] Exam Date: 05/24/2025 21:54 Report Date: 05/24/2025 [...] Steen M.D. 05/24/2025 9:55 PM Dictation Location: [place] [address] Electronically authenticated by: [id number] Y Date: 05/24/2025 21:55 Dictated By: Zion Steen D.O. Signed By: 05/24/252156 DD/ 54 TD/TT: Oracle Specialist: [facility] Radiology, Radiologist, MD - 05/24/2025 The [place] [id number] Ultrasound Report Signed Patient: FANNIE CONLEY MR#: [id number] : 1995 Acct:[id number] Age/Sex: 29 / F ADM Date: 05/24/25 Loc: US Attending Dr: George Scherer Ordering Physician: George Scherer Date of Service: 05/24/25 Procedure(s): US OB BPP w non-stress Accession Number(s): [id number] cc: George Scherer; Cain Donaldson D.O. [place] [id number] Patient Name: FANNIE CONLEY MRN: [id number] date: 1995 Sex: F Assigned Patient Location: [facility] Current Patient Location: Accession/Order Number: [id number] Exam Date: 05/24/2025 21:54 Report Date: 05/24/2025 [...] Steen M.D. 05/24/2025 9:55 PM Dictation Location: [place] [address] Electronically authenticated by: [id number] Y Date: 05/24/2025 21:55 Dictated By: Zion Steen D.O. Signed By: 05/24/252156 DD/ 54 TD/TT: Oracle Specialist[facility] Radiology Study observation (narrative) [facility] US OB BPP W NON-STRESS Ordered By: Radiologist Radiology on 05-24-2025 [facility] Work Phone: US OB BPP W NON-STRESS on 05-17-2025 [place] [address] Ultrasound Report Signed Patient: FANNIE CONLEY MR#: [id number] : 1995 Acct:[id number] Age/Sex: 29 / F ADM Date: 05/16/25 Loc: US Attending Dr: George Scherer Ordering Physician: George Scherer Date of Service: 05/16/25 Procedure(s): US OB BPP w non-stress Accession Number(s): [id number] cc: George Scherer; Cain Donaldson D.O. [place] [address] Patient Name: FANNIE CONLEY MRN: [id number] date: 1995 Sex: F Assigned Patient Location: US Current Patient Location: Accession/Order Number: [id number] Exam Date: 05/17/2025 08:06 Report Date: 05/17/2025 [...] Munson M.D. 05/17/2025 8:07 AM Dictation Location: [place] [address] Electronically authenticated by: [id number] Y Date: 05/17/2025 08:07 Dictated By: Justina Munson M.D. Signed By: 05/17/25 0809 DD/ 0807 TD/TT: Oracle Specialist: [facility] Radiology, Radiologist, MD - 05/17/2025 [place] [address] Ultrasound Report Signed Patient: FANNIE CONLEY MR#: [id number] : 1995 Acct:[id number] Age/Sex: 29 / F ADM Date: 05/16/25 Loc: US Attending Dr: George Scherer Ordering Physician: George Scherer Date of Service: 05/16/25 Procedure(s): US OB BPP w non-stress Accession Number(s): [id number] cc: George Scherer; Cain Donaldson D.O. The [place] [id number] Patient Name: FANNIE CONLEY MRN: [facility]:[id number] date: 1995 Sex: F Assigned Patient Location: Current Patient Location: Accession/Order Number: [id number] Exam Date: 05/17/2025 08:06 Report Date: 05/17/2025 [...] Munson M.D. 05/17/2025 8:07 AM Dictation Location: [place] [address] Electronically authenticated by: [id number] Y Date: 05/17/2025 08:07 Dictated By: Justina Munson M.D. Signed By: 05/17/25808 DD/ 6 TD/TT: Oracle Specialist: [facility] Radiology Study observation (narrative) [facility] US OB BPP W NON-STRESS Ordered By: Radiologist Radiology on 05-17-2025 [facility] Work Phone: Urinalysis macro (dipstick) panel (U)on 05-16-2025 Bilirubin, UA Negative Negative - 4(70) +++ mg/dL [facility] Blood, UA Positive Negative - 50 Warren/mcL [facility] Comment on above: trace-intact Clarity, UA Clear [facility] Color, UA Yellow [facility] Glucose, UA Negative Negative - 2000(110) ++++ mg/dL [facility] Interpretation and review of laboratory results Abnormal [facility] Ketones, UA Negative Negative - 160(16) ++++ mg/dL [facility] Leukocytes, UA Moderate Negative - 500+++ Malick/mcL [facility] Nitrite, UA Negative Negative - Positive [facility] pH, UA 7 5 - 9 [facility] Protein, UA Negative Negative - 2000(20) ++++ mg/dL [facility] Spec Grav, UA 1.02 1 - 1.03 [facility] Urobilinogen, UA 0.2 0.2 - 12 mg/dL [facility] US OB BPP W NON-STRESS on 05-10-2025 [place] [address] Ultrasound Report Signed Patient: FANNIE CONLEY MR#: [id number] : 1995 Acct:[id number] Age/Sex: 29 / F ADM Date: 05/10/25 Loc: US Attending Dr: George Scherer Ordering Physician: George Scherer Date of Service: 05/10/25 Procedure(s): US OB BPP w non-stress Accession Number(s): [id number] cc: George Scherer; Cain Donaldson D.O. The [address] [address] Patient Name: FANNIE CONLEY MRN: [facility]:[id number] date: 1995 Sex: F Assigned Patient Location: [facility] Current Patient Location: Accession/Order Number: [id number] Exam Date: 05/10/2025 18:22 Report Date: 05/10/2025 [...] Epperson M.D. 05/10/2025 6:23 PM Dictation Location: [place] [address] Electronically authenticated by: [id number] Y Date: 05/10/2025 18:23 Dictated By: Larry Epperson M.D. Signed By: 05/10/251825 DD/ 22 TD/TT: Oracle Specialist: [facility] Radiology, Radiologist, MD - 05/10/2025 [place] [address] Ultrasound Report Signed Patient: FANNIE CONLEY MR#: [id number] : 1995 Acct:[id number] Age/Sex: 29 / F ADM Date: 05/10/25 Loc: US Attending Dr: George Scherer Ordering Physician: George Scherer Date of Service: 05/10/25 Procedure(s): US OB BPP w non-stress Accession Number(s): [id number] cc: George Scherer; Cain Donaldson D.O. The [address] [address] Patient Name: FANNIE CONLEY MRN: [id number] date: 1995 Sex: F Assigned Patient Location: [facility] Current Patient Location: Accession/Order Number: [id number] Exam Date: 05/10/2025 18:22 Report Date: 05/10/2025 [...] Epperson M.D. 05/10/2025 6:23 PM Dictation Location: [place] [address] Electronically authenticated by: [id number] Y Date: 05/10/2025 18:23 Dictated By: Larry Epperson M.D. Signed By: 05/10/251825 DD/ 22 TD/TT: Oracle Specialist: [facility] Radiology Study observation (narrative) [facility] US OB BPP W NON-STRESS Ordered By: Radiologist Radiology on 05-10-2025 [facility] [employer] Work Phone: OB FOLLOW UP TRANSABDOMIN AL [...] OB BPP W NON-STRESS on 05-04-2025 [place] [address] Ultrasound Report Signed Patient: FANNIE CONLEY MR#: [id number] : 1995 Acct:[id number] Age/Sex: 29 / F ADM Date: 05/03/25 Loc: US Attending Dr: George Scherer Ordering Physician: George Scherer Date of Service: 05/03/25 Procedure(s): US OB BPP w non-stress Accession Number(s): [id number] cc: George Scherer; Cain Donaldson D.O. [place] [id number] Patient Name: FANNIE CONLEY MRN: [id number]:[id number] date: 1995 Sex: F Assigned Patient Location: US Current Patient Location: Accession/Order Number: [id number] Exam Date: 05/04/2025 07:57 Report Date: 05/04/2025 [...] Munson M.D. 05/04/2025 7:58 AM Dictation Location: [place] [address] Electronically authenticated by: [id number] Y Date: 05/04/2025 07:58 Dictated By: Justina Munson M.D. Signed By: 05/04/25 0946 DD/ 0758 TD/TT: Oracle Specialist: [facility] Radiology, Radiologist, - 05/04/2025 [place] [address] Ultrasound Report Signed Patient: FANNIE CONLEY MR#: [id number] : 1995 Acct:[id number] Age/Sex: 29 / F ADM Date: 05/03/25 Loc: US Attending Dr: George Scherer Ordering Physician: George Scherer Date of Service: 05/03/25 Procedure(s): US OB BPP w non-stress Accession Number(s): [id number] cc: George Scherer; Cain Donaldson D.O. The [place] [address] Patient Name: FANNIE CONLEY MRN: [facility]:[id number] date: 1995 Sex: F Assigned Patient Location: US Current Patient Location: Accession/Order Number: [id number] Exam Date: 05/04/2025 07:57 Report Date: 05/04/2025 [...] This is in low-normal range. Total score: 06/10 US/US OB BPP w non-stress IMPRESSION: NORMAL BIOPHYSICAL PROFILE Impression dictated by: Justina Munson M.D. 05/04/2025 7:58 AM Dictation Location: [place] [address] Electronically authenticated by: [id number] Y Date: 05/04/2025 07:58 Dictated By: Justina Munson M.D. Signed By: 05/04/25 0946 DD/ 0758 TD/TT: Oracle Specialist: [facility] Radiology Study observation (narrative) [facility] OB BPP W NON-STRESS Ordered By: Radiologist Radiology on 05-04-2025 [facility] Work Phone: Urinalysis macro (dipstick) panel (U)on 05-03-2025 Bilirubin, UA Negative Negative - 4(70) +++ mg/dL [facility] Blood, UA Positive Negative - 50 Warren/mcL [facility] Comment on above: small Clarity, UA Clear [facility] Color, UA Yellow [facility] Glucose, UA Negative Negative - 1999(110) ++++ mg/dL [facility] Interpretation and review of laboratory results Abnormal [facility] Ketones, UA Negative Negative - 160(16) ++++ mg/dL [facility] Leukocytes, UA Positive Negative - 500+++ Malick/mcL [facility] Comment on above: small Nitrite, UA Negative Negative - Positive [facility] pH, UA 7 5 - 9 [facility] Protein, UA Negative Negative - 1999(20) ++++ mg/dL [facility] Spec Grav, UA 1.015 1 - 1.03 [facility] Urobilinogen, UA 0.2 0.2 - 12 mg/dL [facility] US OB BPP W NON-STRESS on 04-27-2025 [place] [address] Ultrasound Report Signed Patient: FANNIE CONLEY MR#: [id number] : 1995 Acct:[id number] Age/Sex: 29 / F ADM Date: 04/26/25 Loc: US Attending Dr: George Scherer Ordering Physician: George Scherer Date of Service: 04/26/25 Procedure(s): US OB BPP w non-stress Accession Number(s): [id number] cc: eGorge Scherer; Cain Donaldson D.O. [address] [address] Patient Name: FANNIE CONLEY MRN: [id number] date: 1995 Sex: F Assigned Patient Location: [facility] Current Patient Location: Accession/Order Number: [id number] Exam Date: 04/27/2025 08:06 Report Date: 04/27/2025 [...] Munson M.D. 04/27/2025 8:07 AM Dictation Location: [place] [address] Electronically authenticated by: [id number] Y Date: 04/27/2025 08:07 Dictated By: Justina Munson M.D. Signed By: 04/27/25809 DD/ 6 TD/TT: Oracle Specialist: [facility] Radiology, Radiologist, MD - 04/27/2025 [place] [address] Ultrasound Report Signed Patient: FANNIE CONLEY MR#: [id number] : 1995 Acct:[id number] Age/Sex: 29 / F ADM Date: 04/26/25 Loc: Attending Dr: George Scherer Ordering Physician: George Scherer Date of Service: 04/26/25 Procedure(s): US OB BPP w non-stress Accession Number(s): [id number] cc: George Scherer; Cain Donaldson D.O. The [place] [id number] Patient Name: FANNIE CONLEY MRN: [facility]:[id number] date: 1995 Sex: F Assigned Patient Location: [facility] Current Patient Location: Accession/Order Number: [id number] Exam Date: 04/27/2025 08:06 Report Date: 04/27/2025 [...] Munson M.D. 04/27/2025 8:07 AM Dictation Location: [place] [address] Electronically authenticated by: [id number] Y Date: 04/27/2025 08:07 Dictated By: Justina Munson M.D. Signed By: 04/27/25809 DD/ 6 TD/TT: [employer] Specialist: [facility] Radiology Study observation (narrative) [facility] US OB BPP W NON-STRESS Ordered By: Radiologist Radiology on 04-27-2025 [facility] Work Phone: US OB BPP W NON-STRESS on 04-19-2025 [place] [address] Ultrasound Report Signed Patient: FANNIE CONLEY MR#: [id number] : 1995 Acct:[id number] Age/Sex: 29 / F ADM Date: Loc: [facility] 254-[address]: Cain Donaldson D.O. Ordering Physician: Cain Donaldson D.O. Date of Service: 04/19/25 Procedure(s): US OB BPP w non-stress Accession Number(s): [id number] cc: Cain Donaldson D.O. The [place] [address] Patient Name: FANNIE CONLEY MRN: [facility]:[id number] date: 1995 Sex: F Assigned Patient Location: LAB Current Patient Location: Accession/Order Number: [id number] Exam Date: 04/19/2025 09:00 Report Date: 04/19/2025 09:04 At the request of: CAIN MENDOZA DO Procedure: US OB BPP w non-stress [...] Munson M.D. 04/19/2025 9:04 AM Dictation Location: [place] [address] Electronically authenticated by: [id number] Y Date: 04/19/2025 09:04 Dictated By: Justina Munson M.D. Signed By: 04/19/25905 DD/ 3 TD/TT: Oracle Specialist: [facility] Radiology, Radiologist, MD - 04/19/2025 [place] [address] Ultrasound Report Signed Patient: FANNIE CONLEY MR#: [id number] : 1995 Acct:[id number] Age/Sex: 29 / F ADM Date: Loc: [facility] 254-[address]: Cain Donaldson D.O. Ordering Physician: Cain Donaldson D.O. Date of Service: 04/19/25 Procedure(s): US OB BPP w non-stress Accession Number(s): [id number] cc: Cain Donaldson D.O. The [address] [address] Patient Name: FANNIE CONLEY MRN: [facility]:[id number] date: 1995 Sex: F Assigned Patient Location: LAB Current Patient Location: Accession/Order Number: [id number] Exam Date: 04/19/2025 09:00 Report Date: 04/19/2025 [...] Munson M.D. 04/19/2025 9:04 AM Dictation Location: [place] [address] Electronically authenticated by: [id number] Y Date: 04/19/2025 09:04 Dictated By: Justina Munson M.D. Signed By: 04/19/25905 DD/ 3 TD/TT: Oracle Specialist: [facility] Radiology Study observation (narrative) [facility] OB BPP W NON-STRESS Ordered By: Radiologist Radiology on 04-19-2025 [facility] [employer] Work Phone: US RENAL BIon 04-19-2025 [place] [address] Ultrasound Report Signed Patient: FANNIE CONLEY MR#: [id number] : 1995 Acct:[id number] Age/Sex: 29 / F ADM Date: Loc: [facility] 254-[address]: Cain Donaldson D.O. Ordering Physician: Cain Donaldson D.O. Date of Service: 04/19/25 Procedure(s): US renal BI Accession Number(s): [id number] cc: Cain Donaldson D.O. The [place] [address] Patient Name: FANNIE CONLEY MRN: [facility]:[id number] date: 1995 Sex: F Assigned Patient Location: LAB Current Patient Location: Accession/Order Number: [id number] Exam Date: 04/19/2025 08:46 Report Date: 04/19/2025 [...] Munson M.D. 04/19/2025 8:49 AM Dictation Location: [place] [address] Electronically authenticated by: [id number] Y Date: 04/19/2025 08:49 Dictated By: Justina Munson M.D. Signed By: 04/19/25 0852 DD/ TD/TT: Oracle Specialist: [facility] Radiology, Radiologist, - 04/19/[address] [address] Ultrasound Report Signed Patient: FANNIE CONLEY MR#: [id number] : 1995 Acct:[id number] Age/Sex: 29 / F ADM Date: Loc: [facility] 254-[address]: Cain Donaldson D.O. Ordering Physician: Cain Donaldson D.O. Date of Service: 04/19/25 Procedure(s): US renal BI Accession Number(s): [id number] cc: Cain Donaldson D.O. [place] [address] Patient Name: FANNIE CONLEY MRN: [id number] date: 1995 Sex: F Assigned Patient Location: LAB Current Patient Location: Accession/Order Number: [id number] Exam Date: 04/19/2025 08:46 Report Date: 04/19/2025 [...] Munson M.D. 04/19/2025 8:49 AM Dictation Location: [place] [address] Electronically authenticated by: [id number] Y Date: 04/19/2025 08:49 Dictated By: Justina Munson M.D. Signed By: 04/19/25 0852 DD/ TD/TT: [employer] Specialist: [facility] Radiology Study observation (narrative) [facility] US RENAL BIOrdered By: Radio logist Radiology on 04-19-2025 [facility] Work Phone: [facility] TOTAL PROTEIN 24 HOUR UR INEon 04-18-2025 Interpretation and review of laboratory results Abnormal [facility] Protein (U) [Mass/Vol] 9.5 mg/dL NINF - 11.9 mg/dL [facility] TOTAL PROTEIN 24 HOUR URINE 285 High NINF [facility] TOTAL VOLUME 24 HOUR URINE 3000 mL/24hr [facility] ([facility]AN[facility]CATCH[facility] SLUSHER OPERATOR/BHAVIN RO IF IND.on 04-18-2025 BILIRUBIN URINE Negative NEGATIVE [facility] BLOOD URINE MODERATE Abnormal NEGATIVE [facility] Clarity (U) CLEAR CLEAR [facility] Color (U) LT. YELLOW YELLOW [facility] GLUCOSE URINE UA Negative NEGATIVE mg/dL [facility] Interpretation and review of laboratory results Abnormal [facility] Ketones Ql (U) Negative NEGATIVE mg/dL [facility] Leukocyte esterase Test strip Ql (U) SMALL Abnormal NEGATIVE [facility] NITRITE URINE Negative NEGATIVE [facility] pH (U) 6.0 [pH] 5.0 - 9.0 [facility] PROTEIN URINE Negative NEG/TRACE mg/dL [facility] SPECIFIC GRAVITY URINE 1.020 1.005 - 1.025 [facility] URINE MICROSCOPIC INDICATED YES [facility] UROBILINOGEN URINE 0.2 EU/dL 0.2 - 1.0 EU/dL N [facility] Urinalysis macro (dipstick) panel (U)on 04-18-2025 Bilirubin, UA Negative Negative - 4(70) +++ mg/dL [facility] Blood, UA Negative Negative - 50 Warren/mcL [facility] Clarity, UA Clear [facility] Color, UA Yellow [facility] Glucose, UA Negative Negative - 1999(110) ++++ mg/dL [facility] Interpretation and review of laboratory results Normal [facility] Ketones, UA Negative Negative - 160(16) ++++ mg/dL [facility] Leukocytes, UA Positive Negative - 500+++ Malick/mcL [facility] Comment on above: small Nitrite, UA Negative Negative - Positive [facility] pH, UA 7 5 - 9 [facility] Protein, UA Negative Negative - 1999(20) ++++ mg/dL [facility] Spec Grav, UA 1.01 1 - 1.03 [facility] Urobilinogen, UA 0.2 0.2 - 12 mg/dL [facility] ALL BUNon 04-11-2025 Urea nitrogen [Mass/Vol] 11 mg/dL 7.0 - 18.0 mg/dL [facility] ALL CBC WITH AUTO DIFFon BASOPHILS ABSOLUTE AUTO 0 [facility] Basophils/100 WBC (Bld) 0.3 % 0.2 - 2.0 % [facility] Eosinophils/100 WBC (Bld) 1.5 % 0.9 - 7.0 % [facility] Erythrocyte distribution width (RBC) [Ratio] 13.4 % 11.0 - 15.0 % [facility] Hematocrit (Bld) [Volume fraction] 31.7 % Low 36.0 - 48.0 % [facility] Hemoglobin (Bld) [Mass/Vol] 11 g/dL Low 12.0 - 16.0 g/dL [facility] IMMATURE GRANULOCYTES ABS AUTO 0.06 High [facility] Immature granulocytes/100 WBC (Bld) 0.8 % High 0.0 - 0.5 % [facility] Interpretation and review of laboratory results Abnormal [facility] LYMPHOCYTES ABSOLUTE AUTO 1.5 [facility] Lymphocytes/100 WBC (Bld) 20.5 % 20.5 - 60.0 % [facility] MCH (RBC) [Entitic mass] 30.2 pg 26.7 - 34.0 pg [facility] MCHC (RBC) [Mass/Vol] 34.7 g/dL 29.9 - 35.2 g/dL [facility] MCV (RBC) [Entitic vol] 87.1 fL 81.0 - 99.0 fL [facility] MONOCYTES ABSOLUTE AUTO 0.6 [facility] Monocytes/100 WBC (Bld) 7.8 % 1.7 - 12.0 % [facility] NEUTROPHILS ABSOLUTE AUTO 5.1 [facility] Neutrophils/100 WBC (Bld) 69.1 % 43.0 - 75.0 % [facility] Platelet mean volume (Bld) [Entitic vol] 10.6 fL 9.5 - 13.5 fL [facility] TBH EO # 0.1 [facility] TB PLT 193 [facility] TBH RBC 3.64 Low [facility] TB WBC 7.3 [facility]IN[facility] ALL LDHon 06-09-2025 LDH [Catalytic activity/Vol] 153 U/L 81 - 234 U/L [facility] ALL URIC ACIDon 04-11-2025 Urate [Mass/Vol] 2.8 mg/dL 2.6 - 6.0 mg/dL [facility] 04-11-2025 AST [Catalytic activity/Vol] 11 U/L Low 15 - 37 U/L [facility] No Panel Informationon 04-11 Interpretation and review of laboratory results Abnormal [facility] CREATININEon 04-11-2025 Creatinine [Mass/Vol] 0.36 mg/dL Low 0.55 - 1.02 mg/dL [facility] GFR/1.73 sq M.predicted CKD-EPI (S/P/Bld) [Vol rate/Area] >60 >=60 mL/min/1.73m [address] [facility] EGFR-NON AF PERUVIAN >60 >=60 mL/min/1.73m 2 [facility] US OB BPP W NON-STRESS on 04-11-2025 [place] [address] Ultrasound Report Signed Patient: FANNIE CONLEY MR#: [id number] : 1995 Acct:[id number] Age/Sex: 29 / F ADM Date: 04/11/25 Loc: US Attending Dr: George Scherer Ordering Physician: Cain Donaldson D.O. Date of Service: 04/11/25 Procedure(s): US OB BPP w non-stress Accession Number(s): [id number] cc: Cain Donaldson D.O. [place] [address] Patient Name: FANNIE CONLEY MRN: [id number] date: 1995 Sex: F Assigned [facility] Current Patient Location: Accession/Order Number: [id number] Exam Date: 04/11/2025 19:33 Report Date: 04/11/2025 [...] Steen M.D. 04/11/2025 7:34 PM [facility]ation [facility] Electronically authenticated by: [id number] Y Date: 04/11/2025 19:34 Dictated By: Zion Steen D.O. Signed By: 04/11/251935 DD/ 33 TD/TT: Oracle Specialist: [facility] Radiology, Radiologist, - 04/11/2025 [place] [address] Ultrasound Report Signed Patient: FANNIE CONLEY MR#: [id number] : 1995 Acct:[id number] Age/Sex: 29 / F ADM Date: 04/11/25 Loc: US Attending Dr: George Scherer Ordering Physician: Cain Donaldson D.O. Date of Service: 04/11/25 Procedure(s): US OB BPP w non-stress Accession Number(s): [id number] cc: Cain Donaldson D.O. The [place] [id number] Patient Name: FANNIE CONLEY MRN: [facility]:[id number] date: 1995 Sex: F Assigned Patient Location: [facility] Current Patient Location: Accession/Order Number: [id number] Exam Date: 04/11/2025 19:33 Report Date: 04/11/2025 [...] Steen M.D. 04/11/2025 7:34 PM Dictation Location[facility] Electronically authenticated by: [id number] Y Date: 04/11/2025 19:34 Dictated By: Zion Steen D.O. Signed By: 04/11/251935 DD/ 33 TD/TT: Oracle Specialist: [facility] Radiology Study observation (narrative) [facility] US OB BPP W NON-STRESS Ordered By: Radiologist Radiology on 04-11-2025 [facility] [employer] Work Phone: US OB BPP W NON-STRESS on 04-05-2025 [place] [address] Ultrasound Report Signed Patient: FANNIE CONLEY MR#: [id number] : 1995 Acct:[id number] Age/Sex: 29 / F ADM Date: 04/05/25 Loc: [facility] 250- Attending Dr: George Scherer Ordering Physician: Cain Donaldson D.O. Date of Service: 04/05/25 Procedure(s): US OB BPP w non-stress Accession Number(s): [id number] cc: Cain Donaldson D.O. [place] [address] Patient Name: FANNIE CONLEY MRN: [facility]:[id number] date: 1995 Sex: F Assigned Patient Location: [facility] Current Patient Location: [facility] Accession/Order Number: [id number] Exam Date: 04/05/2025 17:57 Report Date: 04/05/2025 [...] Steen M.D. 04/05/2025 5:58 PM Dictation Location: [employer] Electronically authenticated by: [id number] Y Date: 04/05/2025 17:58 Dictated By: Zion Steen D.O. Signed By: 04/05/25 1801 DD/ 175 TD/TT: Oracle Specialist: [facility] Radiology, Radiologist, MD - 04/05/2025 [place] [address] Ultrasound Report Signed Patient: FANNIE CONLEY MR#: [id number] : 1995 Acct:[id number] Age/Sex: 29 / F ADM Date: 04/05/25 Loc: [place] [address]: George Scherer Ordering Physician: Cain Donaldson D.O. Date of Service: 04/05/25 Procedure(s): US OB BPP w non-stress Accession Number(s): [id number] cc: Cain Donaldson D.O. [place] [address] Patient Name: FANNIE CONLEY MRN: [facility]:[id number] date: 1995 Sex: F Assigned Patient Location: [facility] Current Patient Location: [facility] Accession/Order Number: [id number] Exam Date: 04/05/2025 17:57 Report Date: 04/05/2025 [...] Steen M.D. 04/05/2025 5:58 PM Dictation Location: [employer] Electronically authenticated by: [id number] Y Date: 04/05/2025 17:58 Dictated By: Zion Steen D.O. Signed By: 04/05/251800 DD/ 57 TD/TT: Oracle Specialist: [facility] Radiology Study observation (narrative) [facility] US OB BPP W NON-STRESS Ordered By: Radiologist Radiology on 04-05-2025 [facility] Work Phone: Urinalysis macro (dipstick) panel (U)on 03-03-2025 Bilirubin, UA Negative Negative - 4(70) +++ mg/dL [facility] Blood, UA Negative Negative - 50 Warren/mcL [facility] Clarity, UA Clear [facility] Color, UA Yellow [facility] Glucose, UA Negative Negative - 2000(110) ++++ mg/dL [facility] Interpretation and review of laboratory results Abnormal [facility] Ketones, UA Negative Negative - 160(16) ++++ mg/dL [facility] Leukocytes, UA Trace Negative - 500+++ Malick/mcL [facility] Nitrite, UA Negative Negative - Positive [facility] pH, UA 7 5 - 9 [facility] Protein, UA Negative Negative - 2000(20) ++++ mg/dL [facility] Spec Grav, UA 1.015 1 - 1.03 [facility] Urobilinogen, UA 0.2 0.2 - 12 mg/dL [facility] AFP, Maternalon 02-11-2025 Determined by Other Normal [facility] Comment on above: Performed By: #### A AFPM #### [facility] [address] [place] [address] Census Clerk: Kenneth Krishna MD Due Date SEE NOTE Normal [facility] Comment on above: Result Comment: Resu lts for Estimated Due Date: 06 24 25 Performed By: #### A AFPM #### [facility] [address] [place] [address] Census Clerk: Kenneth Krishna MD Family History No Normal [facility] Comment on above: Performed By: #### A AFPM #### [facility] [address] [place] [address] Census Clerk: Kenneth Krishna MD Gestat Age (exact) 20 wks, 4 days [facility] Comment on above: Performed By: #### A AFPM #### [facility] [address] [place] [address] Census Clerk: Kenneth Krishna MD Ins Req Matern Diab No [facility] Comment on above: Performed By: #### A AFPM #### [facility] [address] [place] [address] Census Clerk: Kenneth Krishna MD Interpretation Screen Neg [facility] Comment on above: Result Comment: (NOT E) INTERPRETATION: SCREEN NEGATIVE for open spina bifida Neural Tube Defects (NTD) Negative Pre-Test Post-Test Cutoff Neural Tube Defects Risks 1:1030 < 1:36755 1:250 Comments: The risk of an open neural tube defect is less than the screening cut-off. This test was developed and its performance characteristics determined by [employer]. It has not been cleared or approved by the [place] Food and Drug Administration. This test was performed in a CLIA certified laboratory and is intended for clinical purposes. Performed By: #### A AFPM #### [facility] [address] [place] [address] Census Clerk: Kenneth Krishna MD [age] [facility] Comment on above: Performed By: #### A AFPM #### [facility] [address] [place] [address] Census Clerk: Kenneth Krishna MD Maternal Race Nonblack [facility] Comment on above: Performed By: #### A AFPM #### [facility] [address] [place] [address] Census Clerk: Kenneth Krishna MD Maternal Weight 231.0 lbs. [facility] Comment on above: Performed By: #### A AFPM #### [facility] [address] [place] [address] Census Clerk: Kenneth Krishna MD MoM for AFP 0.85 [facility] Comment on above: Performed By: #### A AFPM #### [facility] [address] [place] [address] Census Clerk: Kenneth Krishna MD Number of Fetuses [place] Normal [facility] Comment on above: Performed By: #### A AFPM #### [facility] [address] [place] [address] Census Clerk: Kenneth Krishna MD Patient's AFP 41 ng/mL [facility] Comment on above: Performed By: #### A AFPM #### [facility] [address] [place] [address] Census Clerk: Kenneth Krishna MD Smoking No [facility] Comment on above: Performed By: #### A AFPM #### [facility] [address] [place] [address] Census Clerk: Kenneth Krishna MD Specimen See Note [facility] Comment on above: Result Comment: (NOT E) Initial sample Performed By: [facility] [address] [place] [address] Tray Delivery Aide: Jose Jsoeph MD, PhD CLIA Number: [id number] Performed By: #### A AFPM #### [facility] [address] [place] [address] Census Clerk: Kenneth Krishna MD Urinalysis macro (dipstick) panel (U)on 01-20-2025 Bilirubin, UA Negative Negative - 4(70) +++ mg/dL [facility] Blood, UA Negative Negative - 50 Warren/mcL [facility] Comment on above: trace Clarity, UA Clear [facility] Color, UA Renita [facility] Glucose, UA Negative Negative - 2000(110) ++++ mg/dL [facility] Interpretation and review of laboratory results Abnormal [facility] Ketones, UA Positive Negative - 160(16) ++++ mg/dL [facility] Leukocytes, UA Trace Negative - 500+++ Malick/mcL [facility] Nitrite, UA Negative Negative - Positive [facility] pH, UA 7 5 - 9 [facility] Protein, UA Trace Negative - 2000(20) ++++ mg/dL [facility] Spec Grav, UA 1.02 1 - 1.03 [facility] Urobilinogen, UA 1.0 0.2 - 12 mg/dL [facility] Cult,Urineon 12-24-2024 Cult,Urine Specimen Description .URINE Culture NO GROWTH Report Status FINAL 12/24/2024 Normal [facility] Comment on above: Performed By: #### U RC #### [address] [id number] Census Clerk: Jason Rodriguez MD [facility] [address] [place] [address] Census Clerk: Sherwin Elam MD HIV Ag/Abon 12-24-2024 HIV Ag/Ab Non-Reactive Normal [facility] Comment on above: Result Comment: No l aboratory evidence of HIV infection. If acute HIV infection is suspected, consider testing for HIV-1 RNA. Performed By: #### R UBI, HBS, TREP, AHCV, HIVCMB, GLYHGB #### [facility] [employer] [address] [place] [address] Census Clerk: Jason Rodriguez MD #### SIDNEY ZENG #### [facility] [address] [place] [address] Census Clerk: Sherwin Elam MD Hemoglobin A1Con 12-24-2024 Glucose [Mass/Vol] 94 mg/dL [facility] Comment on above: Result Comment: The ADA and AACC recommend providing the estimated average glucose result to permit better patient understanding of their HBA1c result. Performed By: #### R UBI, HBS, TREP, AHCV, HIVCMB, GLYHGB #### [facility] [employer] [facility] [place], [place] [id number] Census Clerk: Jason Rodriguez MD #### CDP, SIDNEY #### [facility] [address] [place], [place] [id number] Census Clerk: Sherwin Elam MD HbA1c (Bld) [Mass fraction] 4.9 % Normal 4.0-6.0 [facility] Comment on above: Performed By: #### R UBI, HBS, TREP, AHCV, HIVCMB, GLYHGB #### [address] [id number] Census Clerk: Jason Rodriguez MD #### CDP, SIDNEY #### [facility] [address] [place] [address] Census Clerk: Sherwin Elam MD Hep B Surf Agon 12-242 Hep B Surf Ag Non-Reactive Normal NR [facility] Comment on above: Performed By: #### R UBI, HBS, TREP, AHCV, HIVCMB, GLYHGB #### [address] [address] Census Clerk: Jason Rodriguez MD #### KARRI, SIDNEY #### [facility] [address] [place], [place] [id number] Census Clerk: Sherwin Elam MD Hep C Abon 8 Hep C Ab Non-Reactive Normal NR [facility] Comment on above: Result Comment: The hepatitis [...] UBI, HBS, TREP, AHCV, HIVCMB, GLYHGB #### [address] [id number] Census Clerk: Jason Rodriguez MD #### CDP, SIDNEY #### [facility] [address] [place] [address] Census Clerk: Sherwin Elam MD Rubella Ab, IgGon 12-24-2024 Rubella Ab, IgG 78.0 IU/mL Normal [facility] Comment on above: Result Comment: <10 NON REACTIVE Negative for Anti-Rubella IgG >=10 REACTIVE Positive for Anti Rubella IgG The presence of IgG antibody to Rubella virus is an indication of previous exposure either by prior infection or vaccination. Performed By: #### R UBI, HBS, TREP, AHCV, HIVCMB, GLYHGB #### [address] [id number] Census Clerk: Jason Rodriguez MD #### SIDNEY ZENG #### [facility] [address] [place] [address] Census Clerk: Sherwin Elam MD T.pallidum Ab Screenon 12-24 T.pallidum Ab Screen Non-Reactive Normal [facility] Comment on above: Result Comment: T. pallidum antibodies are not detected. There is no serological evidence of infection with T. pallidum (early primary syphilis cannot be excluded). Retest in 2-4 weeks if syphilis is clinically suspect. Performed By: #### R UBI, HBS, TREP, AHCV, HIVCMB, GLYHGB #### [address] [id number] Census Clerk: Jason Rodriguez MD #### SIDNEY ZENG #### [facility] [address] [place] [address] Census Clerk: Sherwin Elam MD CBC with Auto Differentialon 12-23-2024 Basophils (Bld) [#/Vol] 0.02 10*3/uL [facility] Basophils/100 WBC (Bld) 0 % 0 - 2 % [facility] Eosinophils (Bld) [#/Vol] 0.13 10*3/uL [facility] Eosinophils/100 WBC (Bld) 2 % 0 - 5 % [facility] Erythrocyte distribution width (RBC) [Ratio] 12.5 % 12.1 - 15.2 % [facility] Hematocrit (Bld) [Volume fraction] 35.9 % Low 36.0 - 46.0 % [facility] Hemoglobin (Bld) [Mass/Vol] 12.5 g/dL 12.0 - 16.0 g/dL [facility] Immature granulocytes (Bld) [#/Vol] 0.02 10*3/uL [facility] Immature granulocytes/100 WBC (Bld) 0 % 0 - 5 % [facility] Interpretation and review of laboratory results Abnormal [facility] Lymphocytes/100 WBC (Bld) 21 % 15 - 40 % [facility] Lymphocytes/100 WBC (Bld) 1.55 % [facility] MCH (RBC) [Entitic mass] 29.6 pg 26.0 - 34.0 pg [facility] MCHC (RBC) [Mass/Vol] 34.8 g/dL 31.0 - 37.0 g/dL [facility] MCV (RBC) [Entitic vol] 84.9 fL 80.0 - 100.0 fL [facility] Monocytes/100 WBC (Bld) 9 % High 4 - 8 % [facility] Monocytes/100 WBC (Bld) 0.65 % [facility] Neutrophils/100 WBC (Bld) 68 % 47 - 75 % [facility] Platelet mean volume (Bld) [Entitic vol] 9.9 fL 6.0 - 12.0 fL [facility] Platelets (Bld) [#/Vol] 238 10*3/uL [facility] RBC (Bld) [#/Vol] 4.23 10*6/uL 4.00 - 5.2 0 m/uL [facility] Segmented neutrophils/100 WBC (Bld) 4.87 % [facility] WBC other (Bld) [#/Vol] 7.2 [facility] CBC with Diffon 12-23-2024 Abs. Basophil 0.02 k/uL Normal 0.00-0.20 [facility] Comment on above: Performed By: #### R UBI, HBS, TREP, AHCV, HIVCMB, GLYHGB #### [address] [address] Census Clerk: Jason Rodriguez MD #### KARRI, SIDNEY #### [facility] [address] [phone] Census Clerk: Sherwin Elam MD Abs.Imm.Granulocyte 0.02 k/uL Normal 0.00-0.30 [facility] Comment on above: Performed By: #### R UBI, HBS, TREP, AHCV, HIVCMB, GLYHGB #### [place] [address] Census Clerk: Jason Rodriguez MD #### KARRI, SIDNEY #### [facility] [address] [phone] Census Clerk: Sherwin Elam MD Abs.Neutrophil (Seg) 4.87 k/uL Normal 2.5-7.0 [facility] Comment on above: Performed By: #### R UBI, HBS, TREP, AHCV, HIVCMB, GLYHGB #### [place] [phone] Census Clerk: Jason Rodriguez MD #### KARRI, SIDNEY #### [facility] [address] [phone] Census Clerk: Sherwin Elam MD Basophils/100 WBC (Bld) 0 % Normal 0-2 [facility] Comment on above: Performed By: #### R UBI, HBS, TREP, AHCV, HIVCMB, GLYHGB #### [address] [phone] Census Clerk: Jason Rodriguez MD #### KARRI, SIDNEY #### [facility] [address] [phone] ( Census Clerk: Sherwin Elam MD Eosinophils (Bld) [#/Vol] 0.13 10*3/uL Normal 0.00-0.40 [facility] Comment on above: Performed By: #### R UBI, HBS, TREP, AHCV, HIVCMB, GLYHGB #### [address] [phone] Census Clerk: Jason Rodriguez MD #### CDP, SIDNEY #### [facility] [address] [phone] Census Clerk: Sherwin Elam MD Eosinophils/100 WBC (Bld) 2 % Normal 0-5 [facility] Comment on above: Performed By: #### R UBI, HBS, TREP, AHCV, HIVCMB, GLYHGB #### [place] [phone] Census Clerk: Jason Rodriguez MD #### KARRI, SIDNEY #### [facility] [address] [phone] Census Clerk: Sherwin Elam MD Erythrocyte distribution width (RBC) [Ratio] 12.5 % Normal 12.1-15.2 [facility] Comment on above: Performed By: #### R UBI, HBS, TREP, AHCV, HIVCMB, GLYHGB #### [place] [phone] Census Clerk: Jason Rodriguez MD #### CDP, SIDNEY #### [facility] [address] [address] Census Clerk: Sherwin Elam MD Hematocrit (Bld) [Volume fraction] 35.9 % Low 36.0-46.0 [facility] Comment on above: Performed By: #### R UBI, HBS, TREP, AHCV, HIVCMB, GLYHGB #### [address] [place] [address] Census Clerk: Jason Rodriguez MD #### CDP, SIDNEY #### [facility] [address] [place], [place] [phone] Census Clerk: Sherwin Elam MD Hemoglobin (Bld) [Mass/Vol] 12.5 g/dL Normal 12.0-16.0 [facility] Comment on above: Performed By: #### R UBI, HBS, TREP, AHCV, HIVCMB, GLYHGB #### [address] [address] Census Clerk: Jason Rodriguez MD #### KARRI, SIDNEY #### [facility] [address] [place], [place] [phone] Census Clerk: Sherwin Elam MD Immature granulocytes/100 WBC (Bld) 0 % Normal 0-5 [facility] Comment on above: Performed By: #### R UBI, HBS, TREP, AHCV, HIVCMB, GLYHGB #### [address] [phone] Census Clerk: Jason Rodriguez MD #### KARRI, SIDNEY #### [facility] [address] [place], [place] [phone] Census Clerk: Sherwin Elam MD Lymphocytes (Bld) [#/Vol] 1.55 10*3/uL Normal 1.00-4.80 [facility] Comment on above: Performed By: #### R UBI, HBS, TREP, AHCV, HIVCMB, GLYHGB #### [address] [address] Census Clerk: Jason Rodriguez MD #### CDP, SIDNEY #### [facility] [address] [place], [place] [phone] Census Clerk: Sherwin Elam MD Lymphocytes/100 WBC (Bld) 21 % Normal 15-40 [facility] Comment on above: Performed By: #### R UBI, HBS, TREP, AHCV, HIVCMB, GLYHGB #### [address] [phone] Census Clerk: Jason Rodriguez MD #### CDP, SIDNEY #### [facility] [address] [place] [address] Census Clerk: Sherwin Elam MD MCH (RBC) [Entitic mass] 29.6 pg Normal 26.0-34.0 [facility] Comment on above: Performed By: #### R UBI, HBS, TREP, AHCV, HIVCMB, GLYHGB #### [address] [phone] Census Clerk: Jason Rodriguez MD #### KARRI, SIDNEY #### [facility] [address] [phone] Census Clerk: Sherwin Elam MD MCHC (RBC) [Mass/Vol] 34.8 g/dL Normal 31.0-37.0 [facility] Comment on above: Performed By: #### R UBI, HBS, TREP, AHCV, HIVCMB, GLYHGB #### [address] [phone] Census Clerk: Jason Rodriguez MD #### CDP, SIDNEY #### [facility] [address] [place] [address] Census Clerk: Sherwin Elam MD MCV (RBC) [Entitic vol] 84.9 fL Normal 80.0-100.0 [facility] Comment on above: Performed By: #### R UBI, HBS, TREP, AHCV, HIVCMB, GLYHGB #### [address] [phone] Census Clerk: Jason Rodriguez MD #### CDP, SIDNEY #### [facility] [address] [place] [address] Census Clerk: Sherwin Elam MD Monocytes (Bld) [#/Vol] 0.65 10*3/uL Normal 0.00-1.00 [facility] Comment on above: Performed By: #### R UBI, HBS, TREP, AHCV, HIVCMB, GLYHGB #### [address] [phone] Census Clerk: Jason Rodriguez MD #### CDP, SIDNEY #### [facility] [address] [place] [address] Census Clerk: Sherwin Elam MD Monocytes/100 WBC (Bld) 9 % High 4-8 [facility] Comment on above: Performed By: #### R UBI, HBS, TREP, AHCV, HIVCMB, GLYHGB #### [address] [phone] Census Clerk: Jason Rodriguez MD #### KARRI, SIDNEY #### [facility] [address] [phone] Census Clerk: Sherwin Elam MD Neutrophil (Seg) 68 % Normal 47-75 [facility] Comment on above: Performed By: #### R UBI, HBS, TREP, AHCV, HIVCMB, GLYHGB #### [address] [phone] Census Clerk: Jason Rodriguez MD #### KARRI, SIDNEY #### [facility] [address] [place] [address] Census Clerk: Sherwin Elam MD Platelet mean volume (Bld) [Entitic vol] 9.9 fL Normal 6.0-12.0 [facility] Comment on above: Performed By: #### R UBI, HBS, TREP, AHCV, HIVCMB, GLYHGB #### [facility] [place] [address] Census Clerk: Jason Rodriguez MD #### KARRI, SIDNEY #### [facility] [address] [place] [address] Census Clerk: Sherwin Elam MD Platelets (Bld) [#/Vol] 238 10*3/uL Normal 140-450 [facility] Comment on above: Performed By: #### R UBI, HBS, TREP, AHCV, HIVCMB, GLYHGB #### [address] [address] Census Clerk: Jason Rodriguez MD #### KARRI, SIDNEY #### [facility] [address] [place], [place] [phone] Census Clerk: Sherwin Elam MD RBC (Bld) [#/Vol] 4.23 10*6/uL Normal 4.00-5.20 [facility] Comment on above: Performed By: #### R UBI, HBS, TREP, AHCV, HIVCMB, GLYHGB #### [address] [address] Census Clerk: Jason Rodriguez MD #### KARRI, SIDNEY #### [facility] [address] [place], [place] [phone] Census Clerk: Sherwin Elam MD WBC (Bld) [#/Vol] 7.2 10*3/uL Normal 3.5-11.0 [facility] Comment on above: Performed By: #### R UBI, HBS, TREP, AHCV, HIVCMB, GLYHGB #### [address] [address] Census Clerk: Jason Rodriguez MD #### KARRI, SIDNEY #### [facility] [address] [place], [place] [phone] Census Clerk: Sherwin Elam MD Drug Scr, Abuse, Uron 2024 Amphetamine(s),Ur Negative Normal NEG [facility] Comment on above: Result Comment: Cuto ff: 1000 ng/mL Performed By: #### R UBI, HBS, TREP, AHCV, HIVCMB, GLYHGB #### [address] [phone] Census Clerk: Jason Rodriguez MD #### CDP, SIDNEY #### [facility] [address] [place] [address] Census Clerk: Sherwin Elam MD Barbiturate(s),Ur Negative Normal NEG [facility] Comment on above: Result Comment: Cuto ff: 200 ng/ml Performed By: #### R UBI, HBS, TREP, AHCV, HIVCMB, GLYHGB #### [address] [phone] Census Clerk: Jason Rodriguez MD #### CDP, SIDNEY #### [facility] [address] [place], [place] [phone] Census Clerk: Sherwin Elam MD Benzodiazepine(s) Negative Normal NEG [facility] Comment on above: Result Comment: Cuto ff: 200 ng/ml Performed By: #### R UBI, HBS, TREP, AHCV, HIVCMB, GLYHGB #### [address] [phone] Census Clerk: Jason Rodriguez MD #### CDP, SIDNEY #### [facility] [address] [place] [address] Census Clerk: Sherwin Elam MD Cannabinoid(s),Ur Negative Normal NEG [facility] Comment on above: Result Comment: Cuto ff: 50 ng/ml Performed By: #### R UBI, HBS, TREP, AHCV, HIVCMB, GLYHGB #### [address] [address] Census Clerk: Jason Rodriguez MD #### CDP, SIDNEY #### [facility] [address] [place] [address] Census Clerk: Sherwin Elam MD Fentanyl, Urine Negative Normal NEG [facility] Comment on above: Result Comment: Cuto ff: 5 ng/ml Performed By: #### R UBI, HBS, TREP, AHCV, HIVCMB, GLYHGB #### [address] [address] Census Clerk: Jason Rodriguez MD #### CDP, SIDNEY #### [facility] [address] [place], [place] [phone] Census Clerk: Sherwin Elam MD Methadone Ql (U) Negative Normal NEG [facility] Comment on above: Result Comment: Cuto ff: 300 ng/ml Performed By: #### R UBI, HBS, TREP, AHCV, HIVCMB, GLYHGB #### [address] [address] Census Clerk: Jason Rodriguez MD #### CDP, SIDNEY #### [facility] [address] [place] [address] Census Clerk: Sherwin Elam MD Opiate(s), Ur Negative Normal NEG [facility] Comment on above: Result Comment: Cuto ff: 300 ng/ml Performed By: #### R UBI, HBS, TREP, AHCV, HIVCMB, GLYHGB #### [address] [address] Census Clerk: Jason Rodriguez MD #### CDP, SIDNEY #### [facility] [address] [place], [place] [phone] Census Clerk: Sherwin Elam MD Oxycodone, Urine Negative Normal NEG [facility] Comment on above: Result Comment: Cuto ff: 100 ng/ml Performed By: #### R UBI, HBS, TREP, AHCV, HIVCMB, GLYHGB #### [address] [address] Census Clerk: Jason Rodriguez MD #### CDP, SIDNEY #### [facility] [address] [place], [place] [phone] Census Clerk: Sherwin Elam MD Phencyclidine, Ur Negative Normal NEG [facility] Comment on above: Result Comment: Cuto ff: 25 ng/ml Performed By: #### R UBI, HBS, TREP, AHCV, HIVCMB, GLYHGB #### [address] [phone] Census Clerk: Jason Rodriguez MD #### CDP, SIDNEY #### [facility] [address] [place], [place] [phone] Census Clerk: Sherwin Elam MD Interpretive Info This method is a screening test to detect only these drug classes as part of a Normal [facility] Comment on above: Result Comment: medi luis workup. Confirmatory testing by another method should be ordered if clinically indicated. Performed By: #### R UBI, HBS, TREP, AHCV, HIVCMB, GLYHGB #### [address] [address] Census Clerk: Jason Rodriguez MD #### CDP, SIDNEY #### [facility] [address] [place], [place] [phone] Census Clerk: Sherwin Elam MD Drug Scr, Abuse, UrOrdered B y: Janay Gurpreet on 12-23-2024 Cocaine Metabolite Negative Normal NEG [facility] Comment on above: Result Comment: Cuto ff: 300 ng/ml Performed By: #### R UBI, HBS, TREP, AHCV, HIVCMB, GLYHGB #### [facility] [address] [place] [address] Census Clerk: Jason Rodriguez MD #### CDP, SIDNEY #### [facility] [address] [place] [address] Census Clerk: Sherwin Elam MD Drug Screen, UrineOrdered By : Janay Vázquez on 12-23-2024 Amphetamine/Methamph etamine Negative [facility] Barbiturates Negative [facility] Benzodiazepines Negative [facility] Ecstasy Negative [facility] Methadone Negative [facility] Opiates Negative [facility] Oxycodone Negative [facility] Phencyclidine Negative [facility] Thc Marijuana, Urine Negative [facility] HIV 1&2 AB/AG Screen (P24 AG )on 12-23-2024 HIV 1&2 AB/AG Non-Reactive [facility] Hemoglobin A1con 12-23-2024 HbA1c (Bld) [Mass fraction] 4.9 % 4.0 - 6.0 % [facility] Hepatitis B surface antigeno n 12-23-2024 Hepatitis B Surface Antigen Non-Reactive [facility] Hepatitis C(HCV) Ab w/ Refle x to PCRon 12-23-2024 HCV Ab Ql (S) Non-Reactive [facility]PT CBC WITH DIFFon 025 Basophils/100 WBC (Bld) 0 % 0 - 2 % [facility] Eosinophils/100 WBC (Bld) 2 % 0 - 5 % [facility] Erythrocyte distribution width (RBC) [Ratio] 12.5 % 12.1 - 15.2 % [facility] Hematocrit (Bld) [Volume fraction] 35.9 % Low 36.0 - 46.0 % [facility] Hemoglobin (Bld) [Mass/Vol] 12.5 g/dL 12.0 - 16.0 g/dL [facility] Immature granulocytes/100 WBC (Bld) 0 % 0 - 5 % [facility] Interpretation and review of laboratory results Abnormal [facility] Lymphocytes/100 WBC (Bld) 21 % 15 - 40 % [facility] MCH (RBC) [Entitic mass] 29.6 pg 26.0 - 34.0 pg [facility] MCHC (RBC) [Mass/Vol] 34.8 g/dL 31.0 - 37.0 g/dL [facility] MCV (RBC) [Entitic vol] 84.9 fL 80.0 - 100.0 fL [facility] MHPT ABS. BASOPHIL 0.02 [facility]PT ABS. EOSINOPHIL 0.13 [facility]65 [facility].IMM.GRANULOCYTE 0.02 [facility].NEUTROPHIL (SEG) 4.87 [facility] MHPT PLATELET COUNT 238 [facility] MHPT WBC COUNT 7.2 [facility] Monocytes/100 WBC (Bld) 9 % High 4 - 8 % [facility] Platelet mean volume (Bld) [Entitic vol] 9.9 fL 6.0 - 12.0 fL [facility] RBC (Bld) [#/Vol] 4.23 10*6/uL 4.00 - 5.2 0 m/uL [facility] Segmented neutrophils/100 WBC (Bld) 68 % 47 - 75 % [facility] Original Ordering Provider[facility], ABUSE, URon 0 12-23-2024 MHPT AMPHETAMINE(S),UR Negative NEG [facility] Comment on above: Cutoff: 1000 ng/mL MHPT BARBITURATE(S),UR Negative NEG [facility] Comment on above: Cutoff: 200 ng/ml MHPT BENZODIAZEPINE(S) Negative NEG [facility] Comment on above: Cutoff: 200 ng/ml MHPT CANNABINOID(S),UR Negative NEG [facility] Comment on above: Cutoff: 50 ng/ml MHPT COCAINE METABOLITE Negative NEG [facility] Comment on above: Cutoff: 300 ng/ml MHPT FENTANYL, URINE Negative NEG [facility] Comment on above: Cutoff: 5 ng/ml MHPT INTERPRETIVE INFO This method is a screening test to detect only these drug classes as part of a [facility] Comment on above: medical workup. Conf irmatory testing by another method should be ordered if clinically indicated. [facility]PT METHADONE Negative NEG [facility] Comment on above: Cutoff: 300 ng/ml MHPT OPIATE(S), UR Negative NEG [facility] Comment on above: Cutoff: 300 ng/ml MHPT OXYCODONE, URINE Negative NEG [facility] Comment on above: Cutoff: 100 ng/ml MHPT PHENCYCLIDINE, UR Negative NEG [facility] Comment on above: Cutoff: 25 ng/ml Original Ordering Provider: CAIN ADAN [facility] No Panel Informationon 12-23 [facility] TYPE AND SCREENon 0 12-23-2024 ABO and Rh group Nom (Bld) Blood group B Rh(D) positive [facility] Blood group antibodies identified Nom Negative [facility] Type + Scrnon 12-23 Type + Scrn Negative Normal [facility] Comment on above: Performed By: #### R UBI, HBS, TREP, AHCV, HIVCMB, GLYHGB #### [facility] [employer] [address] [place], [place] [phone] Census Clerk: Jason Rodriguez MD #### CDP, SIDNEY #### [facility] [address] [place] [address] Census Clerk: Sherwin Elam MD Type and screenon 12-23-2024 Abo/Rh(D) Positive [facility] Urinalysis macro (dipstick) panel (U)on 12-23-2024 Bilirubin, UA Negative Negative - 4(70) +++ mg/dL [facility] Blood, UA Negative Negative - 50 Warren/mcL [facility] Clarity, UA Clear [facility] Color, UA Yellow [facility] Glucose, UA Negative Negative - 1999(110) ++++ mg/dL [facility] Interpretation and review of laboratory results Normal [facility] Ketones, UA Negative Negative - 160(16) ++++ mg/dL [facility] Leukocytes, UA Negative Negative - 500+++ Malick/mcL [facility] Nitrite, UA Negative Negative - Positive [facility] pH, UA 7 5 - 9 [facility] Protein, UA Negative Negative - 1999(20) ++++ mg/dL [facility] Spec Grav, UA 1.02 1 - 1.03 [facility] Urobilinogen, UA 1.0 0.2 - 12 mg/dL [facility] Urine Drug Screenon 12-23-19 25 Amphetamines Ql (U) Negative NEGATIVE [employer] [employer] [facility] Comment on above: Cutoff: 1000 ng/mL Barbiturates Screen Ql (U) Negative NEGATIVE [facility] Comment on above: Cutoff: 200 ng/ml Benzodiazepines Ql (U) Negative NEGATIVE [facility] Comment on above: Cutoff: 200 ng/ml Cannabinoids Screen Ql (U) Negative NEGATIVE [facility] [facility] Comment on above: Cutoff: 50 ng/ml Cocaine Ql (U) Negative NEGATIVE [facility] Comment on above: Cutoff: 300 ng/ml fentaNYL Ql (U) Negative NEGATIVE [facility] Comment on above: Cutoff: 5 ng/ml Methadone Ql (U) Negative NEGATIVE [employer] [facility] Comment on above: Cutoff: 300 ng/ml Opiates Screen Ql (U) Negative NEGATIVE [employer] [facility] Comment on above: Cutoff: 300 ng/ml oxyCODONE Ql (U) Negative NEGATIVE [facility] Comment on above: Cutoff: 100 ng/ml Phencyclidine Ql (U) Negative NEGATIVE [facility] Comment on above: Cutoff: 25 ng/ml Test Information This method is a screening test to detect only these drug classes as part of a medical workup. Confirmatory testing by another method should be ordered if clinically indicated. [facility] ( test) Ql (U)o n 11-25-2024 Interpretation and review of laboratory results Abnormal [facility] Preg Test, Ur Positive Negative [facility] US OB TRANSVAGINALon 025 OB TRANSVAGINAL TITLE OF [...] 10 weeks 0 days. Dictated and transcribed 11/26/24/[email or web address] This report has been electronically signed and approved by the interpreting radiologist. Normal Not Available Comment on above: Order Comment: US OB TRANSVAGINAL No LMP recorded. Urinalysis macro (dipstick) panel (U)on 11-25-2024 Bilirubin, UA Negative Negative - 4(70) +++ mg/dL [facility] Blood, UA Negative Negative - 50 Warren/mcL [facility] Clarity, UA Clear [facility] Color, UA Yellow [facility] Glucose, UA Negative Negative - 2000(110) ++++ mg/dL [facility] Interpretation and review of laboratory results Normal [facility] Ketones, UA Negative Negative - 160(16) ++++ mg/dL [facility] Leukocytes, UA Negative Negative - 500+++ Malick/mcL [facility] Nitrite, UA Negative Negative - Positive [facility] pH, UA 6 5 - 9 [facility] Protein, UA Negative Negative - 2000(20) ++++ mg/dL [facility] Spec Grav, UA 1.02 1 - 1.03 [facility] Urobilinogen, UA 0.2 0.2 - 12 mg/dL [facility] HCG, Quanton 10-20-2024 HCG, Quant 812.4 mIU/mL High <5 [facility] Comment on above: Result Comment: Non-preg premeno <=5 Postmeno <=8 Male <=3 If HCG results do not concur with clinical observations, additional testing to confirm results is recommended. Performed By: #### R UBI, HBS, TREP, AHCV, HIVCMB, GLYHGB #### [facility] [employer] [address] [place] [address] Census Clerk: Jason Rodriguez MD #### SIDNEY ZENG #### [facility] [address] [place] [address] Census Clerk: Sherwin Elam MD HCG, Quantitative, on 10-20-2024 HCG.beta subunit Qn 812.4 m[IU]/mL High NINF B on [facility] Comment on above: Non-preg premeno <=5 Postmeno <=8 Male <=3 If HCG results do not concur with clinical observations, additional testing to confirm results is recommended. Interpretation and review of laboratory results Abnormal [facility] HCG, Quanton 10-18-2024 HCG, Quant 293.1 mIU/mL High <5 [facility] Comment on above: Result Comment: Non-preg premeno <=5 Postmeno <=8 Male <=3 If HCG results do not concur with clinical observations, additional testing to confirm results is recommended. Performed By: #### R UBI, HBS, TREP, AHCV, HIVCMB, GLYHGB #### [facility] [employer] [address] [place], [place] [phone] Census Clerk: Jason Rodriguez MD #### CDP, SIDNEY #### [facility] [address] [place] [address] Census Clerk: Sherwin Elam MD HCG, Quantitative, on 10-18-2024 HCG.beta subunit Qn 293.1 m[IU]/mL High NINF B on [facility] Comment on above: Non-preg premeno <=5 Postmeno <=8 Male <=3 If HCG results do not concur with clinical observations, additional testing to confirm results is recommended. Interpretation and review of laboratory results Abnormal [facility] XR knee RT 4V*on 04-06-2024 XR knee RT 4V* [facility] [place] [address] [place] [id number] XRay Report Signed Patient: Fannie Mckeon MR#: [id number] : 1995 Acct:[id number] Age/Sex: 28 / F ADM Date: 04/06/24 Loc: [id number] Room: Type: [facility] Attending Dr: Renita MONTOYA Copies to: UMM Soliz FNP-BC Ordering Provider: Renita Fu APRN Date of Service: 06/04/24 XR/XR knee RT 4V*: [id number] - Injury, [...] Justina Munson M.D.04/06/2024 12:42 PM Dictation Location: [place] [address] Transcribed By: [facility] 04/06/24 1242 Dictated By: Justina Munson MD 04/06/24 1240 Signed By: 04/06/24 1242 Normal [facility] Estradiolon 04-15-2022 Estradiol 257.1 pg/mL 27 - 314 pg/mL [facility] Comment on above: FEMALES: Normally menstruating Luteal phase 33-298 Follicular phase 27-156 Midcycle phase 48-314 Postmenopausal (untreated) 5-50 Fulvestrant treatment will show an increased estradiol concentration with this methodology. Alternate methodologies are available upon request. No Panel Informationon 04-15 [facility] Progesteroneon 04-15-2022 Progesterone 39.8 ng/mL [facility] Comment on above: FEMALE (healthy): Follicular phase 0.06-0.89 Ovulation phase 0.12-12.00 Luteal phase 1.83-23.90 Postmenopausal <0.13 HCG, Quantitative, on 02-08-2022 hCG Quant <1 <5 mIU/mL [facility] Comment on above: Non-preg premeno <=5 Postmeno <=8 Male <=3 If HCG results do not concur with clinical observations, additional testing to confirm results is recommended. Elevated results not associated with may be found in patients with other diseases such as tumors of the germ cells (testis, ovaries, etc.), bladder, pancreas, stomach, lungs, and liver. [employer] TSHon 02-08-2022 TSH Qn 1.05 m[IU]/L [facility] Estradiolon 01-14-2022 Estradiol 326 pg/mL High 27 - 314 pg/mL [facility] Comment on above: FEMALES: Normally menstruating Luteal phase 33-298 Follicular phase 27-156 Midcycle phase 48-314 Postmenopausal (untreated) 5-50 Fulvestrant treatment will show an increased estradiol concentration with this methodology. Alternate methodologies are available upon request. Interpretation and review of laboratory results Abnormal [employer] HCG, Quantitative, on 01-14-2022 hCG Quant <1 <5 IU/L [facility] Comment on above: Non-preg premeno <=5 Postmeno <=8 Male <=3 If HCG results do not concur with clinical observations, additional testing to confirm results is recommended. Elevated results not associated with may be found in patients with other diseases such as tumors of the germ cells (testis, ovaries, etc.), bladder, pancreas, stomach, lungs, and liver. [employer] No Panel Informationon 01-14 [employer] Progesteroneon 01-14-2022 Progesterone 47.49 ng/mL [facility] Comment on above: FEMALE (healthy): Follicular phase 0.06-0.89 Ovulation phase 0.12-12.00 Luteal phase 1.83-23.90 Postmenopausal <0.13 Estradiolon 01-08-2022 Estradiol 251 pg/mL 27 - 314 pg/mL [facility] Comment on above: FEMALES: Normally menstruating Luteal phase 33-298 Follicular phase 27-156 Midcycle phase 48-314 Postmenopausal (untreated) 5-50 Fulvestrant treatment will show an increased estradiol concentration with this methodology. Alternate methodologies are available upon request. No Panel Informationon 01-08 [employer] Progesteroneon 01-08-2022 Progesterone 50.58 ng/mL [facility] Comment on above: FEMALE (healthy): Follicular phase 0.06-0.89 Ovulation phase 0.12-12.00 Luteal phase 1.83-23.90 Postmenopausal <0.13 HCG, Quantitative, on 12-10-2021 hCG Quant <1 <5 IU/L [employer] Comment on above: Non-preg premeno <=5 Postmeno <=8 Male <=3 If HCG results do not concur with clinical observations, additional testing to confirm results is recommended. Elevated results not associated with may be found in patients with other diseases such as tumors of the germ cells (testis, ovaries, etc.), bladder, pancreas, stomach, lungs, and liver. [employer] Estradiolon 09-26-2021 Estradiol 434 pg/mL High 27 - 314 pg/mL [facility] Comment on above: FEMALES: Normally menstruating Luteal phase 33-298 Follicular phase 27-156 Midcycle phase 48-314 Postmenopausal (untreated) 5-50 Fulvestrant treatment will show an increased estradiol concentration with this methodology. Alternate methodologies are available upon request. Interpretation and review of laboratory results Abnormal [facility] HCG, Quantitative, on 09-26-2021 hCG Quant 652 High <5 IU/L [facility] Comment on above: Non-preg premeno <=5 Postmeno <=8 Male <=3 If HCG results do not concur with clinical observations, additional testing to confirm results is recommended. Elevated results not associated with may be found in patients with other diseases such as tumors of the germ cells (testis, ovaries, etc.), bladder, pancreas, stomach, lungs, and liver. Interpretation and review of laboratory results Abnormal [facility] No Panel Informationon 09-26 [employer] Progesteroneon 09-26-2021 Progesterone 45.63 ng/mL [facility] Comment on above: FEMALE (healthy): Follicular phase 0.06-0.89 Ovulation phase 0.12-12.00 Luteal phase 1.83-23.90 Postmenopausal <0.13 Estradiolon 09-17-2021 Estradiol 389 pg/mL High 27 - 314 pg/mL [employer] Comment on above: FEMALES: Normally menstruating Luteal phase 33-298 Follicular phase 27-156 Midcycle phase 48-314 Postmenopausal (untreated) 5-50 Fulvestrant treatment will show an increased estradiol concentration with this methodology. Alternate methodologies are available upon request. Interpretation and review of laboratory results Abnormal [employer] No Panel Informationon 09-17 [employer] Progesteroneon 09-17-2021 Progesterone 15.02 ng/mL [facility] Comment on above: FEMALE (healthy): Follicular phase 0.06-0.89 Ovulation phase 0.12-12.00 Luteal phase 1.83-23.90 Postmenopausal <0.13 TSH without ReflexOrdered By : Pedro Luis Dorantes on 06-25-2021 TSH Qn 1.08 m[IU]/L [employer] Phone: [employer] Phone: HCG, Quantitative, on 02-15-2021 hCG Quant <1 <5 IU/L [employer] Phone: Comment on above: Non-preg premeno <=5 [...] Estradiol 66 pg/mL 27 - 314 pg/mL [employer] Phone: Comment on above: FEMALES: Normally menstruating Luteal phase 33-298 Follicular phase 27-156 Midcycle phase 48-314 Postmenopausal (untreated) 5-50 Fulvestrant treatment will show an increased estradiol concentration with this methodology. Alternate methodologies are available upon request. Follicle Stimulating Hormone on 01-12-2021 FSH 5.3 U/L 1.7 - 21.5 U/L [employer] Phone: Comment on above: Reference Range: Male: 1.5-12.4 Ovulating Female: Follicular Phase 3.5-12.5 Ovulation Phase 4.7-21.5 Luteal Phase 1.7-7.7 Postmenopausal Female: 25.8-134.8 HIV Screenon 01-12-2021 HIV Ag/Ab NONREACTIVE NONREACTIVE [employer] Phone: Comment on above: No laboratory eviden ce of HIV infection. If acute HIV infection is suspected, consider testing for HIV-1 RNA. Hepatitis B Core Antibody, T otalon 01-12-2021 Hep B Core Total Ab NONREACTIVE NONREACTIVE [employer] Work Phone: Hepatitis B Surface Antigeno n 01-12-2021 Hepatitis B Surface Ag NONREACTIVE NONREACTIVE [employer] Phone: Hepatitis C Antibodyon 01-12 Hepatitis C Ab NONREACTIVE NONREACTIVE [facility] Work Phone: Comment on above: The [...] LH 10.8 U/L 1.0 - 95.6 U/L [employer] Phone: Comment on above: Reference Range: Male: 1.7-8.6 Ovulating Female: Follicular Phase 2.4-12.6 Ovulation Phase 14.0-95.6 Luteal Phase 1.0-11.4 Postmenopausal Female: 7.7-58.5 Progesteroneon 01-12-2021 Progesterone 0.13 ng/mL [employer] Phone: Comment on above: FEMALE (healthy): Follicular phase 0.06-0.89 Ovulation phase 0.12-12.00 Luteal phase 1.83-23.90 Postmenopausal <0.13 Prolactinon 01-12-2021 Prolactin 7.58 ug/L 4.79 - 23.30 ug/L [employer] Phone: Comment on above: The presence of macr oprolactin may cause interference in female patients with various endocrinological diseases or during . Rubella antibody, IgGon 01-01 Rubella virus IgG Ql (S) 52.4 IU/mL [employer] Phone: Comment on above: REFERENCE RANGE: <5.0 NON-REACTIVE (non-immune) 5.0 TO 9.9 EQUIVOCAL >=10.0 REACTIVE (immune) HCG, Quantitative, on 01-11-2021 hCG Quant <1 <5 IU/L [employer] Phone: Comment on above: Non-preg premeno <=5 [...] without Reflexon 021 TSH Qn 1.08 m[IU]/L [facility] Work Phone: TYPE AND SCREENon 01-11-2021 ABO/Rh Positive [employer] Work Phone: Arm Band Number NOT REPORTED [facility] Work Phone: Expiration Date 01/14/2021,2359 [employer] Work Phone: Vital Signs Date Time Vital Sign Value Performing Clinician Facility 06-13-2025 08:39-0400 Body mass index (BMI) [Ratio] 43.9 kg/m2 Christy Schwartz PA Work Phone: [facility] 06-13-2025 08:39-0400 Body weight 108.86 kg Christy Schwartz PA Work Phone: [facility] 06-13-2025 08:39-0400 Diastolic blood pressure 78 mm[Hg] Christy Schwartz PA Work Phone: [facility] 06-13-2025 08:39-0400 Systolic blood pressure 120 mm[Hg] Christy Schwartz PA Work Phone: [facility] 06-06-2025 08:50-0400 Body mass index (BMI) [Ratio] 43.86 kg/m2 Christy Schwartz PA Work Phone: [facility] 06-06-2025 08:50-0400 Body weight 108.77 kg Christy Schwartz PA Work Phone: [facility] 06-06-2025 08:50-0400 Diastolic blood pressure 78 mm[Hg] Christy Schwartz PA Work Phone: [facility] 06-06-2025 08:50-0400 Systolic blood pressure 124 mm[Hg] Christy Schwartz PA Work Phone: [facility] 05-30-2025 08:35-0400 Body mass index (BMI) [Ratio] 43.16 kg/m2 Cain Mendoza DO Work Phone: [facility] 05-30-2025 08:35-0400 Body weight 107.05 kg Cain Mendoza DO Work Phone: [facility] 05-30-2025 08:35-0400 Diastolic blood pressure 82 mm[Hg] Cain Mendoza DO Work Phone: [facility] 05-30-2025 08:35-0400 Systolic blood pressure 130 mm[Hg] Cain Mendoza DO Work Phone: [facility] 05-26-2025 08:55-0400 Body mass index (BMI) [Ratio] 43.07 kg/m2 Christy Efren PA Work Phone: [facility] 05-26-2025 08:55-0400 Body weight 106.82 kg Christy Efren PA Work Phone: [facility] 05-26-2025 08:55-0400 Diastolic blood pressure 84 mm[Hg] Christy Efren PA Work Phone: [facility] 05-26-2025 08:55-0400 Systolic blood pressure 130 mm[Hg] Christy Efren PA Work Phone: [facility] 05-16-2025 08:37-0400 Body mass index (BMI) [Ratio] 43.71 kg/m2 Cain Mendoza DO Work Phone: [facility] 05-16-2025 08:37-0400 Body weight 108.41 kg Cain Mendoza DO Work Phone: [facility] 05-16-2025 08:37-0400 Diastolic blood pressure 70 mm[Hg] Cain Mendoza DO Work Phone: [facility] 05-16-2025 08:37-0400 Systolic blood pressure 120 mm[Hg] Cain Mendoza DO Work Phone: [facility] 05-03-2025 09:06-0400 Body mass index (BMI) [Ratio] 43.99 kg/m2 Christy Efren PA Work Phone: [facility] 05-03-2025 09:06-0400 Body weight 109.09 kg Christy MCKOY Work Phone: [facility] 05-03-2025 09:06-0400 Diastolic blood pressure 86 mm[Hg] Christy Schwartz PA Work Phone: [facility] 05-03-2025 09:06-0400 Systolic blood pressure 130 mm[Hg] Christy MCKOY Work Phone: [facility] 04-18-2025 10:40-0400 Body mass index (BMI) [Ratio] 43.16 kg/m2 Cain Mendoza DO Work Phone: [facility] 04-18-2025 10:40-0400 Body weight 107.05 kg Cain Mendoza DO Work Phone: [facility] 04-18-2025 10:40-0400 Diastolic blood pressure 72 mm[Hg] Cain Mendoza DO Work Phone: [facility] 04-18-2025 10:40-0400 Systolic blood pressure 120 mm[Hg] Cain Mendoza DO Work Phone: [facility] 04-18-2025 10:34-0400 Body height 157.5 cm Cain Mendoza DO Work Phone: [facility] 03-30-2025 09:26-0400 Body weight 103.87 kg Christy MCKOY Work Phone: [facility] 03-30-2025 09:26-0400 Diastolic blood pressure 80 mm[Hg] Christy MCKOY Work Phone: [facility] 03-30-2025 09:26-0400 Systolic blood pressure 122 mm[Hg] Christy MCKOY Work Phone: [facility] 03-03-2025 09:00-0400 Body weight 105.14 kg Cain Mendoza DO Work Phone: [facility] 03-03-2025 09:00-0400 Diastolic blood pressure 80 mm[Hg] Cain Mendoza DO Work Phone: [facility] 03-03-2025 09:00-0400 Systolic blood pressure 120 mm[Hg] Cain Donaldson DO Work Phone: [facility] 02-08-2025 09:34-0400 Body height 157.5 cm Jaida Chadwick MD Work Phone: [facility] 02-08-2025 09:34-0400 Body mass index (BMI) [Ratio] 42.24 kg/m2 Jaida Chadwick MD Work Phone: [facility] 02-08-2025 09:34-0400 Body weight 104.78 kg Jaida Chadwick MD Work Phone: [facility] 02-08-2025 09:34-0400 Diastolic blood pressure 80 mm[Hg] Jaida Chadwick MD Work Phone: [facility] 02-08-2025 09:34-0400 Heart rate 95 /min Jaida Chadwick MD Work Phone: [facility] 02-08-2025 09:34-0400 Systolic blood pressure 125 mm[Hg] Jaida Chadwick MD Work Phone: [facility] 01-26-2025 14:44-0400 Body height 157.5 cm Apollo Martinez SAFETY CLOTHING AND EQUIPMENT DEVELOPER-[employer]' BOOKING REPRESENTATIVE Work Phone: [facility] 01-26-2025 14:44-0400 Body mass index (BMI) [Ratio] 41.88 kg/m2 Apollo Martinez SAFETY CLOTHING AND EQUIPMENT DEVELOPER-ARTISTS' BOOKING REPRESENTATIVE Work Phone: [facility] 01-26-2025 14:44-0400 Body weight 103.87 kg Apollo Martinez SAFETY CLOTHING AND EQUIPMENT DEVELOPER-ARTISTS' BOOKING REPRESENTATIVE Work Phone: [facility] 01-26-2025 14:44-0400 Diastolic blood pressure 60 mm[Hg] Apollo Martinez SAFETY CLOTHING AND EQUIPMENT DEVELOPER-ARTISTS' BOOKING REPRESENTATIVE Work Phone: [facility] 01-26-2025 14:44-0400 Heart rate 87 /min Apollo Martinez SAFETY CLOTHING AND EQUIPMENT DEVELOPER-ARTISTS' BOOKING REPRESENTATIVE Work Phone: [facility] 01-26-2025 14:44-0400 Systolic blood pressure 115 mm[Hg] Apollo Martinez SAFETY CLOTHING AND EQUIPMENT DEVELOPER-ARTISTS' BOOKING REPRESENTATIVE Work Phone: [facility] 01-26-2025 14:25-0400 Body mass index (BMI) [Ratio] 41.87 kg/m2 [facility] 01-26-2025 14:25-0400 Body weight 103.87 kg [facility] 01-20-2025 08:42-0400 Body weight 103.87 kg Christy MCKOY Work Phone: [facility] 01-20-2025 08:42-0400 Diastolic blood pressure 70 mm[Hg] Christy MCKOY Work Phone: [facility] 01-20-2025 08:42-0400 Systolic blood pressure 120 mm[Hg] Christy MCKOY Work Phone: [facility] 12-30-2024 10:57-0500 Body height 157.5 cm Jaida Chadwick MD Work Phone: [facility] 11-25-2024 15:25-0500 Body weight 105.23 kg Noms Nurse [facility] 11-25-2024 15:25-0500 Diastolic blood pressure 72 mm[Hg] Noms Nurse [facility] 11-25-2024 15:25-0500 Systolic blood pressure 124 mm[Hg] Noms Nurse [facility] 04-06-2024 12:06-0400 Body height 157.48 cm PHYSICIAN NO [facility] 04-06-2024 12:06-0400 Body mass index (BMI) [Ratio] 42 kg/m2 PHYSICIAN NO [facility] 04-06-2024 12:06-0400 Body weight 104.32 kg PHYSICIAN NO [facility] 04-06-2024 12:06-0400 Diastolic blood pressure 80 mm[Hg] PHYSICIAN NO [facility] 04-06-2024 12:06-0400 Heart rate 80 /min PHYSICIAN NO [facility] 04-06-2024 12:06-0400 Respiratory rate 20 /min PHYSICIAN NO [facility] 04-06-2024 12:06-0400 SaO2% (BldA) [Mass fraction] 99 % PHYSICIAN NO [facility] 04-06-2024 12:06-0400 Systolic blood pressure 124 mm[Hg] PHYSICIAN NO [facility] Encounters Encounter Date Encounter Type Care Provider Facility Start: 11-25-2025 ambulatory Aissatou Castillo Facility:[facility] Start: 06-14-2025 End: 06-14-2025 Clinisync Result Encounter George Scherer NP Work Phone: [facility] External [facility] Unsolicited Start: 06-14-2025 End: 06-14-2025 Clinisync Result Encounter George Scherer NP Work Phone: [facility] External Department Unsolicited Start: 06-13-2025 End: 06-13-2025 Bamboo flowsheet Christy MCKOY Work Phone: [facility] Start: 06-13-2025 End: 06-13-2025 Bamboo flowsheet Christy MCKOY Work Phone: [facility] Start: 06-13-2025 End: 06-13-2025 Telephone encounter Sonya Lomax RN [facility] Start: 06-13-2025 End: 06-13-2025 ambulatory CHRISTY SCHWARTZ Not Available Start: 06-13-2025 End: 06-13-2025 flow sheet Christy MCKOY Work Phone: [facility] Comment on above: Excessive grow th affecting management of in third trimester, single or unspecified fetus (HHS-HCC) (Primary Dx); 38 weeks gestation of (HHS-HCC); Third trimester (HHS-HCC); Conceived by in vitro fertilization; Factor 5 Leiden mutation, heterozygous (HHS-HCC); Insulin controlled gestational diabetes mellitus (GDM) during , antepartum (HHS-HCC) Start: 06-10-2025 End: 06-10-2025 Telephone encounter Naomy Thompson RN Work Phone: [facility] Start: 06-08-2025 End: 06-08-2025 Clinisync Result Encounter George Scherer NP Work Phone: [facility] External Department Unsolicited Start: 06-08-2025 End: 06-08-2025 Clinisync Result Encounter Georgenkechi Scherer CLERICAL SUPPORT Work Phone: [facility] External Department Unsolicited Start: 06-07-2025 End: 06-07-2025 Orders Only Eva Mccann SAFETY CLOTHING AND EQUIPMENT DEVELOPER-[facility] Work Phone: [facility] Comment on above: Insulin controlled g estational diabetes mellitus (GDM) in second trimester; Prediabetes in mother during Start: 06-06-2025 End: 06-06-2025 Bamboo flowsheet Christy MCKOY Work Phone: [facility] Start: 06-06-2025 End: 06-06-2025 Bamboo flowsheet Christy MCKOY Work Phone: [facility] Start: 06-06-2025 End: 06-06-2025 flow sheet Christy MCKOY Work Phone: [facility] Comment on above: Third trimester preg selene ([facility]); 37 weeks gestation of ([facility]) Start: 06-06-2025 End: 06-06-2025 ambulatory CHRISTY SCHWARTZ Not Available Start: 05-30-2025 End: 05-30-2025 Bamboo flowsheet Cain Mendoza DO Work Phone: [facility] Start: 05-30-2025 End: 05-30-2025 Bamboo flowsheet Cain Mendoza DO Work Phone: [facility] Start: 05-30-2025 End: 06-07-2025 Telephone encounter Sonya Lomax RN [facility] Start: 05-30-2025 End: 05-30-2025 flow sheet Cain Mendoza DO Work Phone: [facility] Comment on above: Right otitis media, unspecified otitis media type (Primary Dx); Third trimester ([facility]); 36 weeks gestation of ([facility]) Start: 05-30-2025 End: 05-30-2025 ambulatory CAIN YATESO Not Available Start: 05-27-2025 End: 05-27-2025 ambulatory Aissatou Castillo [place] Start: 05-27-2025 End: 05-27-2025 Patient encounter procedure Aissatou Castillo [facility] Start: 05-26-2025 End: 05-26-2025 Bamboo flowsheet Christy MCKOY Work Phone: [facility] Start: 05-26-2025 End: 05-26-2025 Bamboo flowsheet Christy MCKOY Work Phone: [facility] Start: 05-26-2025 End: 05-26-2025 flow sheet Christy MCKOY Work Phone: [facility] Comment on above: Third trimester preg selene ([facility]); 36 weeks gestation of ([facility]) Start: 05-26-2025 End: 05-26-2025 ambulatory CHRISTY SCHWARTZ Not Available Start: 05-24-2025 End: 05-24-2025 Clinisync Result Encounter George Scherer NP Work Phone: [facility] External Department Unsolicited Start: 05-24-2025 End: 05-24-2025 Clinisync Result Encounter George Scherer NP Work Phone: [facility] External [facility] Unsolicited Start: 05-23-2025 End: 05-23-2025 Office outpatient visit 25 minutes Devika Luu PA-C Work Phone: [facility] Comment on above: Insulin controlled g estational diabetes mellitus (GDM) in third trimester (Primary Dx) Start: 05-23-2025 End: 05-23-2025 ambulatory DEVIKA LUU [facility] Start: 05-19-2025 ambulatory MESSI NKCORBYJEAN-PIERRE [facility] Start: 05-17-2025 End: 05-17-2025 Clinisync Result Encounter George Scherer NP Work Phone: [facility] External [facility] Unsolicited Start: 05-17-2025 End: 05-17-2025 Clinisync Result Encounter George Scherer NP Work Phone: [facility] External [facility] Unsolicited Start: 05-17-2025 End: 05-17-2025 Telephone encounter Sonya Lomax RN [facility] Start: 05-16-2025 End: 05-16-2025 Bamboo flowsheet Cain Mendoza DO Work Phone: [facility] Start: 05-16-2025 End: 05-16-2025 Bamboo flowsheet Cain Mendoza DO Work Phone: [facility] Start: 05-16-2025 End: 05-16-2025 ambulatory CAIN MENDOZA Not Available Start: 05-16-2025 End: 05-16-2025 flow sheet Cain Mendoza DO Work Phone: [facility] Comment on above: 34 weeks gestation o f ([facility]); Third trimester ([facility]); Conceived by in vitro fertilization; Factor 5 Leiden mutation, heterozygous ([facility]); Insulin controlled gestational diabetes mellitus (GDM) during , antepartum ([facility]); Non-recurrent acute serous otitis media of left ear Start: 05-11-2025 End: 05-11-2025 Telephone encounter Belen BRYANT [facility] Start: 05-10-2025 End: 05-10-2025 Clinisync Result Encounter George Scherer NP Work Phone: [facility] External [facility] Unsolicited Start: 05-10-2025 End: 05-10-2025 Clinisync Result Encounter George Scherer NP Work Phone: [facility] External Department Unsolicited Start: 05-10-2025 End: 05-10-2025 ambulatory CHRISTY SCHWARTZ Not Available Start: 05-04-2025 End: 05-04-2025 Clinisync [...] OB Start: 05-03-2025 End: 05-03-2025 Telephone encounter Shoshanagavi BRYANT Work Phone: [facility] Start: 05-03-2025 End: 05-03-2025 flow sheet Christy MCKOY Work Phone: [facility] Comment on above: size inconsist ent with dates ([facility]) (Primary Dx); Third trimester ([facility]); 32 weeks gestation of ([facility]); Conceived by in vitro fertilization; Factor 5 Leiden mutation, heterozygous ([facility]); Insulin controlled gestational diabetes mellitus (GDM) during , antepartum ([facility]) Start: 05-03-2025 End: 05-03-2025 ambulatory CHRISTY SCHWARTZ Not Available Start: 04-27-2025 ambulatory Aissatou Castillo Facility:[facility] Start: 04-27-2025 End: 04-27-2025 Clinisync Result Encounter George Scherer NP Work Phone: [facility] External Department Unsolicited Start: 04-27-2025 End: 04-27-2025 Clinisync Result Encounter George Scherer NP Work Phone: [facility] External [facility] Unsolicited Start: 04-25-2025 End: 04-25-2025 Telephone encounter Giselle Cheng CMA [facility] Start: 04-25-2025 End: 04-25-2025 ambulatory [facility] Start: 04-25-2025 End: 04-25-2025 Office outpatient visit 25 minutes Devika Luu PA-C Work Phone: [facility]aternal- Medicine at [facility] Comment on above: Insulin controlled g estational diabetes mellitus (GDM) in third trimester (Primary Dx) Start: 04-20-2025 End: 04-20-2025 Telephone encounter Aissatou Stoner RN Maternal- Medicine at [facility] Start: 04-19-2025 End: 04-19-2025 Clinisync Result [...] Comment on above: Third trimester preg selene ([facility]); 30 weeks gestation of ([facility]) Start: 04-17-2025 End: 04-18-2025 Clinisync Result Encounter Cain Mendoza DO Work Phone: [facility] Unsolicited Start: 04-17-2025 End: 04-18-2025 Clinisync Result Encounter Cain Mendoza DO Work Phone: [facility] External Department Unsolicited Start: 04-14-2025 End: 04-14-2025 ambulatory [facility] Start: 04-12-2025 End: 04-12-2025 Telephone encounter Sonya Lomax RN Maternal- Medicine at [facility] Start: 04-11-2025 End: 04-11-2025 ambulatory Devika Luu PA-C Work Phone: Maternal- Medicine at [facility] Comment on above: Insulin controlled g [...] Luu PA-C Work Phone: [facility]- Medicine at [facility] Start: 04-05-2025 End: 04-05-2025 Clinisync Result Encounter Cain Mendoza DO Work Phone: [facility] External Department Unsolicited Start: 04-05-2025 End: 04-05-2025 Clinisync Result Encounter Cain Mendoza DO Work Phone: [facility] External Department Unsolicited Start: 03-30-2025 End: 03-30-2025 Bamboo flowsheet Christy MCKOY Work Phone: [facility] Start: 03-30-2025 End: 03-30-2025 Bamboo flowsheet Christy MCKOY Work Phone: [facility] Start: 03-30-2025 End: 03-30-2025 Office outpatient visit 25 minutes Apollo Martinez SAFETY CLOTHING AND EQUIPMENT DEVELOPER-ARTISTS' BOOKING REPRESENTATIVE Work Phone: Maternal- Medicine at [facility] Comment on above: Insulin controlled g estational diabetes mellitus (GDM) in second trimester (Primary Dx); Recurrent major depressive disorder, in partial remission; Prediabetes in mother during Start: 03-30-2025 End: 03-30-2025 ambulatory APOLLO LORI [facility] Start: 03-30-2025 End: 03-30-2025 flow sheet Christy MCKOY Work Phone: [facility] Comment on above: Second trimester pre gnancy; 27 weeks gestation of ; Gestational diabetes mellitus (GDM), antepartum, gestational diabetes method of control unspecified; Factor 5 Leiden mutation, heterozygous (CMS/HCC); Conceived by in vitro fertilization Start: 03-30-2025 End: 03-30-2025 ambulatory CHRISTY SCHWARTZ Not Available Start: 03-22-2025 End: 03-22-2025 Telephone encounter Sonya Lomax RN [facility]- [facility] at [facility] Start: 03-16-2025 End: 03-16-2025 Telephone encounter Sonya Lomax RN [facility]- [facility] at [facility] Start: 03-16-2025 End: 03-16-2025 ambulatory CAIN [facility] Start: 03-11-2025 End: 03-11-2025 Telephone encounter Naomy Thompson RN Work Phone: [facility]- Medicine at [facility] Start: 03-07-2025 End: 03-07-2025 Orders Only Cole Wade MD Work Phone: M[facility]- Medicine at [facility] Comment on above: Insulin controlled g [...] encounter Valerie Le RN M[facility]- Medicine at [facility] Start: 02-28-2025 End: 02-28-2025 Orders Only Devika Luu PA-C Work Phone: [facility]- Medicine at [facility] Comment on above: Insulin controlled g estational diabetes mellitus (GDM) in second trimester; Prediabetes in mother during Start: 02-24-2025 End: 02-24-2025 Office outpatient visit 25 minutes Apollo LAWRENCE Work Phone: M[facility]- Medicine at [facility] Comment on above: Insulin controlled g estational diabetes mellitus (GDM) in second trimester (Primary Dx); Recurrent major depressive disorder, in partial remission; Bipolar 1 disorder ([facility]); Prediabetes in mother during Start: 02-24-2025 End: 02-24-2025 ambulatory APOLLO MARTINEZ [facility] Start: 02-17-2025 End: 02-17-2025 Telephone encounter Christy Prado LPN [facility] at [facility] Start: 02-15-2025 End: 02-15-2025 Telephone encounter Valerie Le RN [facility] at [facility] Start: 02-08-2025 End: 02-08-2025 Office consultation new/estab patient 60 min Jaida Chadwick MD Work Phone: Maternal- Medicine at [facility] Comment on above: Insulin controlled g estational diabetes mellitus (GDM) in second trimester (Primary Dx); Prediabetes in mother during ; 20 weeks gestation of ; Choroid plexus cyst of fetus affecting care of mother, antepartum, single or unspecified fetus; Heterozygous factor V Leiden affecting in second trimester, antepartum; Severe obesity due to excess calories affecting , antepartum ([facility]); Bipolar disorder, in full remission, most recent episode depressed Start: 02-08-2025 End: 02-08-2025 Orders Only Christy Prado LPN M[facility]- Medicine at [facility] Comment on above: Insulin controlled g estational diabetes mellitus (GDM) in second trimester (Primary Dx); Choroid plexus cyst of fetus affecting care of mother, antepartum, single or unspecified fetus; Heterozygous factor V Leiden affecting in second trimester, antepartum; Severe obesity due to excess calories affecting , antepartum ([facility]) Start: 02-03-2025 End: 02-03-2025 Telephone encounter Christy Prado LPN [facility] at [facility] Start: 01-27-2025 End: 01-27-2025 Orders Only Apollo LAWRENEC Work Phone: [facility]- Medicine at [facility] Start: 01-26-2025 End: 01-26-2025 Office outpatient new 45 minutes Apollo LAWRENCE Work Phone: [facility]- Medicine at [facility] Comment on above: Insulin controlled g estational diabetes mellitus (GDM) in second trimester (Primary Dx) Start: 01-26-2025 End: 01-27-2025 Refill Apollo LAWRENCE Work Phone: [facility]- [facility] at [facility] Start: 01-26-2025 End: 01-26-[address] Work Phone: M[facility]- Medicine at [facility] Comment on above: Insulin controlled g [...] abstracting Scanning Provider External [facility]- [facility] at [facility] Start: 12-30-2024 End: 12-30-2024 Chart abstracting Jaida Chadwick MD Work Phone: [facility]- [facility] at [facility] Start: 12-29-2024 End: 12-29-2024 Telephone encounter Claudine Hawthorne M[facility]- Medicine at [facility] Start: 12-23-2024 End: 12-23-2024 ambulatory CAIN DONALDSON [facility] Start: 12-23-2024 End: 12-23-2024 Subsequent hospital visit by physician [facility] Start: 12-23-2024 End: 12-23-2024 Bamboo flowsheet Cain Donaldson DO Work Phone: [facility] Start: 12-23-2024 End: 12-24-2024 Bamboo flowsheet Cain Donaldson DO Work Phone: [facility] Start: 12-23-2024 End: 12-24-2024 Clinisync Result Encounter Cain Donaldson DO Work Phone: [facility] External Department Unsolicited Start: 12-23-2024 End: 12-23-2024 flow sheet Cain Donaldson DO Work Phone: [facility] Comment [...] Start: 04-06-2024 End: 04-06-2024 ambulatory PHYSICIAN TWIN [facility] Work Phone: Start: 04-06-2024 End: 04-06-2024 Patient encounter procedure PHYSICIAN TWIN [facility] [place] Work Phone: Start: 04-15-2022 End: 04-15-2022 Subsequent [...] End: 09-17-2021 Subsequent hospital visit by physician [facility] Start: 06-25-2021 End: 06-25-2021 Subsequent hospital visit by physician [facility] Laboratory Start: 02-15-2021 End: 02-15-2021 Subsequent hospital visit by physician [facility] Covid19 Pat Screening Schedule [facility] Comment on above: Arrived Start: 01-11-2021 End: 01-11-2021 Subsequent hospital visit by physician [facility] Laboratory Procedures Date Procedure Procedure Detail Performing Clinician Start: 06-14-2025 US OB BPP W NON-STRESS George Gilmer [employer]ICAL SUPPORT Work Phone: Start: 06-13-2025 Urnls dip stick/tabl et rgnt non-auto w/o micrscp Christy MCKOY Work Phone: Start: 06-08-2025 OB BPP W NON-STRESS George Gilmer CLERICAL SUPPORT Work Phone: Start: 05-30-2025 Urnls dip stick/tabl et rgnt non-auto w/o micrscp Cain Mendoza DO Work Phone: Start: 05-26-2025 Urnls dip stick/tabl et rgnt non-auto w/o micrscp Christy MCKOY Work Phone: Start: 05-24-2025 OB BPP W NON-STRESS George Gilmer CLERICAL SUPPORT Work Phone: Start: 05-17-2025 US OB BPP W NON-STRESS George Gilmer CLERICAL SUPPORT Work Phone: Start: 05-16-2025 Urnls dip stick/tabl et rgnt non-auto w/o micrscp Cain Mendoza DO Work Phone: Start: 05-10-2025 US OB BPP W NON-STRESS George Gilmer CLERICAL SUPPORT Work Phone: Start: 05-04-2025 US OB BPP W NON-STRESS George Gilmer CLERICAL SUPPORT Work Phone: Start: 05-03-2025 Urnls dip stick/tabl et rgnt non-auto w/o micrscp Christy Schwartz PA Work Phone: Start: 04-27-2025 US OB BPP W NON-STRESS George Gilmer [employer]ERICAL SUPPORT Work Phone: Start: 04-19-2025 US OB BPP W NON-STRESS Cain Mendoza DO Work Phone: Start: 04-19-2025 US RENAL BI Cain Fazi o DO Work Phone: Start: 04-18-2025 [facility] UA (CLEAN/CATCH) SLUSHER OPERATOR/MICRO IF IND. Cain Mendoza DO Work Phone: [...] Phone: Start: 01-11-2021 Assay of progesterone Jovana adameloren Cecilio Dorantes Work Phone: Start: 01-11-2021 Assay [...] Td Vaccines (2 - Td or Tdap) [facility] Start: 01-21-2028 Screening for malign ant neoplasm of cervix [facility] Start: 02-08-2026 Adult BMI Screening Adult BMI Screen ing [facility] Start: 02-08-2026 Tobacco Screening Tobacco Screening [facility] Start: 01-26-2026 Adult BMI Screening Adult BMI Screen ing [facility] Start: 01-26-2026 Tobacco Screening Tobacco Screening [facility] Start: 07-04-2025 Influenza vaccination [facility] Start: 06-16-2025 End: 06-16-2025 Professional / ancillary services management 06/16/2025 8:00 AM EDT Ancillary Procedure [facility] [address] [place] [phone] [facility] Start: 06-13-2025 End: 10-13-2025 US for US OB follow up transabdominal approach Imaging Routine Excessive growth affecting management of in third trimester, single or unspecified fetus ([facility]) Expected: 06/13/2025, Expires: 10/13/2025 [facility] Work Phone: Comment on above: Expected: 06/13/2025 , Expires: 10/13/2025 Start: 06-13-2025 End: 06-13-2025 Patient encounter procedure [facility] Start: 06-06-2025 End: 06-06-2025 Patient encounter procedure [facility] Comment on above: Arrived Start: 06-03-2025 Influenza vaccination Flu vacc ine (Season Ended) [facility] Start: 05-30-2025 End: 05-30-2025 Patient encounter procedure [facility] Comment on above: Arrived Start: 05-26-2025 End: 05-26-2026 CULTURE, GROUP B STREP WITH SUSCEPTIBLITY CULTURE, GROUP B STREP WITH SUSCEPTIBLITY Lab Routine Third trimester ([facility]) Expected: 05/26/2025, Expires: 05/26/2026 [facility] Work Phone: Comment on above: Expected: 05/26/2025 , Expires: 05/26/2026 Start: 05-26-2025 End: 05-26-2025 Patient encounter procedure [facility] Comment on above: Arrived Start: 05-23-2025 End: 05-23-2025 Telemedicine consultation with patient 05/23/2025 1:30 PM EDT Telemedicine Maternal- Medicine at [facility] [address] [place] [phone] Devika Luu PA-C [address] [place] [id number] [facility] at [facility] Start: 05-16-2025 End: 05-16-2025 Patient encounter procedure 05/16/2025 8:30 AM EDT Routine [facility] [address] [place] [phone] Cain Donaldson, DO [address] [place] [address] [facility] Start: 05-12-2025 End: 05-12-2025 Patient encounter procedure 05/12/2025 8:00 AM EDT Appointment [facility] [address] [place] [phone] [facility] Start: 05-10-2025 End: 05-10-2025 Professional / ancillary services management 05/10/2025 8:00 AM EDT Ancillary Procedure [facility] [address] [place] [phone] [facility] Start: 05-03-2025 End: 09-03-2025 US for US OB follow up transabdominal approach Imaging Routine size inconsistent with dates ([facility]) Expected: 05/03/2025, Expires: 09/03/2025 [facility] Work Phone: Comment on above: Expected: 05/03/2025 , Expires: 09/03/2025 Start: 05-03-2025 End: 05-03-2025 Patient encounter procedure [facility] Comment on above: Arrived Start: 04-25-2025 End: 04-25-2025 Telemedicine consultation with patient 04/25/2025 11:30 AM EDT Telemedicine M[facility]- Medicine at [facility] [address] [place] [phone] Devika Luu, PAGian [address] [place] [address], [place] [address] [facility] at [facility] Start: 04-18-2025 End: 04-18-2025 Patient encounter procedure 04/18/2025 10:10 AM EDT Routine [facility] [address] [place] [phone] Cain Donaldson DO [address] [place] [address] [facility] Start: 04-14-2025 End: 04-14-2025 Patient encounter procedure 04/14/2025 8:00 AM EDT Appointment [facility] [address] [place] [phone] [facility] Start: 03-30-2025 End: 09-30-2025 US biophysical profile w non stress test US biophysical profile w non stress test Imaging Routine Gestational diabetes mellitus (GDM), antepartum, gestational diabetes method of control unspecified Factor 5 Leiden mutation, heterozygous (CMS/HCC) Conceived by in vitro fertilization Expected: 03/30/2025 (Approximate), Expires: 09/30/2025 [facility] Comment on above: Expected: 03/30/2025 (Approximate), Expires: 09/30/2025 Start: 03-30-2025 End: 07-31-2025 US for US OB follow up transabdominal approach Imaging Routine Gestational diabetes mellitus (GDM), antepartum, gestational diabetes method of control unspecified Factor 5 Leiden mutation, heterozygous (CMS/HCC) Conceived by in vitro fertilization Expected: 03/30/2025, Expires: 07/31/2025 [facility] Work Phone: Comment on above: Expected: 03/30/2025 , Expires: 07/31/2025 Start: 03-30-2025 End: 03-30-2025 Telemedicine consultation with patient 03/30/2025 1:30 PM EDT Telemedicine [facility]- [facility] at [facility] [address] [place] [phone] Apollo Martinez, SAFETY CLOTHING AND EQUIPMENT DEVELOPER-ARTISTS' BOOKING REPRESENTATIVE [address] [place] [address] [facility] at [facility] Start: 03-30-2025 End: 03-30-2025 Patient encounter procedure [facility] Comment on above: Arrived Start: 03-16-2025 End: 03-16-2025 Patient encounter procedure 03/16/2025 8:00 AM EDT Appointment [facility] [address] [place] [address] [facility] Start: 03-03-2025 End: 03-03-2026 Alanine aminotransferase [Enzymatic activity/volume] in Serum or Plasma ALT Lab Routine 23 weeks gestation of induced hypertension, antepartum Expected: 03/03/2025 (Approximate), Expires: 03/03/2026 [facility] Comment on above: Expected: 03/03/2025 (Approximate), Expires: 03/03/2026 Start: 03-03-2025 End: 03-03-2026 Aspartate aminotransferase [Enzymatic activity/volume] in Serum or Plasma AST Lab Routine 23 weeks gestation of induced hypertension, antepartum Expected: 03/03/2025 (Approximate), Expires: 03/03/2026 [facility] Comment on above: Expected: 03/03/2025 (Approximate), Expires: 03/03/2026 Start: 03-03-2025 End: 03-03-2026 CBC W Auto Differential panel - Blood CBC and differential Lab Routine 23 weeks gestation of induced hypertension, antepartum Expected: 03/03/2025 (Approximate), Expires: 03/03/2026 [facility] Comment on above: Expected: 03/03/2025 (Approximate), Expires: 03/03/2026 Start: 03-03-2025 End: 03-03-2026 Creatinine [Mass/volume] in Serum or Plasma Creatinine Lab Routine 23 weeks gestation of induced hypertension, antepartum Expected: 03/03/2025 (Approximate), Expires: 03/03/2026 [facility] Work Phone: Comment on above: Expected: 03/03/2025 (Approximate), Expires: 03/03/2026 Start: 03-03-2025 End: 03-03-2026 Lactate dehydrogenase [Enzymatic activity/volume] in Serum or Plasma by Lactate to pyruvate reaction Lactate dehydrogenase Lab Routine 23 weeks gestation of induced hypertension, antepartum Expected: 03/03/2025, Expires: 03/03/2026 [facility] Comment on above: Expected: 03/03/2025 , Expires: 03/03/2026 Start: 03-03-2025 End: 03-03-2026 Protein, urine, 24 hour Protein, urine, 24 hour Lab Routine 23 weeks gestation of induced hypertension, antepartum Expected: 03/03/2025 (Approximate), Expires: 03/03/2026 [facility] Comment on above: Expected: 03/03/2025 (Approximate), Expires: 03/03/2026 Start: 03-03-2025 End: 03-03-2026 Pt and ptt Pt and ptt Lab Routine 23 weeks gestation of induced hypertension, antepartum Expected: 03/03/2025, Expires: 03/03/2026 [facility] Comment on above: Expected: 03/03/2025 , Expires: 03/03/2026 Start: 03-03-2025 End: 03-03-2026 Urate [Mass/volume] in Serum or Plasma Uric acid Lab Routine 23 weeks gestation of induced hypertension, antepartum Expected: 03/03/2025 (Approximate), Expires: 03/03/2026 [facility] Comment on above: Expected: 03/03/2025 (Approximate), Expires: 03/03/2026 Start: 03-03-2025 End: 03-03-2026 Urea nitrogen [Mass/volume] in Serum or Plasma BUN Lab Routine 23 weeks gestation of induced hypertension, antepartum Expected: 03/03/2025, Expires: 03/03/2026 [facility] Comment on above: Expected: 03/03/2025 , Expires: 03/03/2026 Start: 03-03-2025 End: 03-03-2025 Patient encounter procedure 03/03/2025 8:40 AM EDT Routine [facility] [address] [place] [phone] Cain Donaldson, DO [address] [place] [address] Arrived [facility] Comment on above: Arrived Start: 02-24-2025 End: 02-24-2025 Patient encounter procedure 02/24/2025 1:00 PM EDT Office Visit [facility] at [facility] [address] [place] [phone] Apollo Martinez APRN-ARTISTS' BOOKING REPRESENTATIVE [address] [place] [address] [facility] Start: 02-08-2025 End: 02-08-2026 US MFM with or without consult US MFM with or without consult Imaging Routine Insulin controlled gestational diabetes mellitus (GDM) in second trimester Choroid plexus cyst of fetus affecting care of mother, antepartum, single or unspecified fetus Heterozygous factor V Leiden affecting in second trimester, antepartum Severe obesity due to excess calories affecting , antepartum ([facility]) Expected: 02/08/2025, Expires: 02/08/2026 [employer] Work Phone: Comment on above: Expected: 02/08/2025 , Expires: 02/08/2026 Start: 02-08-2025 End: 02-08-2025 Patient encounter procedure [facility] - [facility] Start: 01-26-2025 End: 01-26-2025 Patient encounter procedure 01/26/2025 3:30 PM EDT Office Visit [facility] at [facility] [address] [place] [phone] Apollo Martinez APRN-ARTISTS' BOOKING REPRESENTATIVE [address] [place] [address] [facility] Start: 01-26-2025 End: 01-26-2025 ambulatory 01/26/2025 1:30 PM EDT Support Visit [facility] at [facility] [address] [place] [phone] Kenzie Dotson, RD [address] [place] [address] [facility] at [facility] Start: 01-20-2025 End: 02-20-2025 Alpha fetoprotein, [...] gestational age Expected: 11/25/2024 (Approximate), Expires: 11/25/2025 [facility] Comment on above: Expected: 11/25/2024 (Approximate), [...] first trimester Expected: 11/25/2024 (Approximate), Expires: 11/25/2025 [facility] Comment on above: Expected: 11/25/2024 (Approximate), Expires: 11/25/2025 Start: 07-04-2024 COVID-19 Vaccine ( season) COVID-19 Vaccine ( season) [facility] Start: 07-04-2024 COVID-19 Vaccine ( season) COVID-19 Vaccine ( season) [facility] Start: 07-04-2024 Influenza vaccination Influenza Vacc ine [facility] Start: 06-03-2024 Influenza vaccination Flu vaccine (# 1) [facility] Start: 11-24-2023 Screening for malign ant neoplasm of cervix Pap Smear [facility] Start: 2023 Screening for malign ant neoplasm of cervix [facility] Start: 07-04-2022 Influenza vaccination Flu vacc ine (Season Ended) [facility] Start: 07-04-2021 Influenza vaccination [facility] Start: 07-04-2020 Influenza vaccination Flu vaccine (# 1) [facility] [employer] Phone: Start: 07-03-2015 DTaP,Tdap and Td Vac cines (2 - Tdap) DTaP,Tdap and Td Vaccines (2 - Tdap) [facility] Start: 2014 Screening for malign ant neoplasm of cervix [facility] Start: 2012 DTaP/Tdap/Td vaccine (1 - Tdap) DTaP/Tdap/Td vaccine (1 - Tdap) [facility] Start: 2012 Hepatitis B vaccine (1 of 3 - 19+ 3-dose series) Hepatitis B vaccine (1 of 3 - 19+ 3-dose series) [facility] Start: 2011 Adult BMI Follow Up Plan Adult BMI Follow Up Plan [facility] Start: 2011 Adult BMI Screening Adult BMI Screen ing [facility] Start: 2009 COVID-19 Vaccine (1) COVID-19 Vaccin e (1) [facility] [employer] Phone: Start: 2006 Varicella vaccine (1 of 2 - 13+ 2-dose series) Varicella vaccine (1 of 2 - 13+ 2-dose series) [facility] [employer] Start: 2005 COVID-19 Vaccine (1) COVID-19 Vaccin e (1) [facility] [employer] Start: 2005 Depression Screen Depression Screen [facility] Start: 2005 Depression Screening Depression Scre ening [facility] Start: 2005 Tobacco Screening Tobacco Screening [facility] Start: 1998 COVID-19 Vaccine (1) COVID-19 Vaccin e (1) [facility] Start: 1994 Varicella vaccine (1 of 2 - 2-dose childhood series) Varicella vaccine (1 of 2 - 2-dose childhood series) [facility] [employer] End: 02-08-2025 Alpha Fetoprotein, [facility]aternal [facility] Work Phone: Comment on above: Once for 1 Occurrenc es starting 02/08/2025 until 02/08/2025 End: 01-11-2021 Anti Mullerian Hormone Anti Mullerian Hormone Lab Routine Once for 1 Occurrences starting 01/11/2021 until 01/11/2021 [employer] Phone: Comment on above: Once for 1 Occurrenc es starting 01/11/2021 until 01/11/2021 Anti Mullerian Hormone Anti Keeley erian Hormone Lab Routine 01/11/2021 1:58 PM EST [employer] Phone: Bacteria identified in Urine by Culture Urine culture Microbiology Routine Missed menses Ordered: 11/25/2024 [facility] [employer] Comment on above: Ordered: 11/25/2024 Bacteria identified in Urine by Culture Urine culture Microbiology Routine 34 weeks gestation of ([facility]) Conceived by in vitro fertilization Ordered: 05/16/2025 [facility]: Comment on above: Ordered: 05/16/2025 End: 01-11-2021 C.trachomatis N.gonorrhoeae DNA, Urine C.trachomatis N.gonorrhoeae DNA, Urine Microbiology Routine Once for 1 Occurrences starting 01/11/2021 until 01/11/2021 [employer] Phone: Comment on above: Once for 1 Occurrenc es starting 01/11/2021 until 01/11/2021 C.trachomatis N.gonorrhoeae DNA, Urine C.trachomatis N.gonorrhoeae DNA, Urine Microbiology Routine 01/11/2021 2:29 PM EST [employer] Phone: CBC W Auto Different ial panel - Blood CBC and differential Lab Routine Missed menses , unspecified gestational age Ordered: 11/25/2024 [facility] Comment on above: Ordered: 11/25/2024 CHLAMYDIA TRACHOMATI S (GENITO/STI) CHLAMYDIA TRACHOMATIS (GENITO/STI) Lab Routine Exposure to STD Ordered: 01/20/2025 [facility] Comment on above: Ordered: 01/20/2025 End: 02-15-2021 COVID-19 COVID-19 Lab Routine Once for 1 Occurrences starting 02/15/2021 until 02/15/2021 [employer] Phone: Comment on above: Once for 1 Occurrenc es starting 02/15/2021 until 02/15/2021 COVID-19 COVID-19 Lab Rou linda 02/15/2021 3:10 PM EDT [employer] Phone: End: 12-23-2024 Culture, Urine [facility] [employer] Comment on above: Once for 1 Occurrenc es starting 12/23/2024 until 12/23/2024 Cytology Cervical or vaginal smear or scraping study Pap Smear Pathology and Cytology Routine Well woman exam with routine gynecological exam Ordered: 01/20/2025 [facility] Comment on above: Ordered: 01/20/2025 End: 01-11-2021 Factor 5 Leiden Factor 5 Leiden Lab Routine Once for 1 Occurrences starting 01/11/2021 until 01/11/2021 [employer] Phone: Comment on above: Once for 1 Occurrenc es starting 01/11/2021 until 01/11/2021 Factor 5 Leiden Factor 5 Leiden Lab Routine 01/11/2021 1:58 PM [facility] Phone: End: 01-11-2021 HbA1c (Bld) [Mass fraction] Hemoglobin A1C Lab Routine Once for 1 Occurrences starting 01/11/2021 until 01/11/2021 [employer] Phone: Comment on above: Once for 1 Occurrenc es starting 01/11/2021 until 01/11/2021 HbA1c (Bld) [Mass fraction] Hemoglobin A1C Lab Routine 01/11/2021 1:58 PM [facility] [employer] Phone: Hemoglobin A1c/Hemoglobin.total in Blood Hemoglobin A1c Lab Routine Missed menses , unspecified gestational age Ordered: 11/25/2024 [facility] [employer] Comment on above: Ordered: 11/25/2024 End: 12-23-2024 Hemoglobin A1c/Hemoglobin.total in Blood [employer] Comment on above: Once for 1 Occurrenc es starting 12/23/2024 until 12/23/2024 End: 12-23-2024 Hepatitis B Surface Antigen [employer] Comment on above: Once for 1 Occurrenc es starting 12/23/2024 until 12/23/2024 Hepatitis B virus urbano rface Ag [Presence] in Serum or Plasma by Immunoassay Hepatitis B surface antigen Lab Routine Missed menses , unspecified gestational age Ordered: 11/25/2024 [facility] Comment on above: Ordered: 11/25/2024 End: 12-23-2024 Hepatitis C Antibody [employer] Phone: Comment on above: Once for 1 Occurrenc es starting 12/23/2024 until 12/23/2024 Hepatitis C virus Ab [Presence] in Serum or Plasma by Immunoassay Hepatitis C antibody Lab Routine Missed menses , unspecified gestational age Ordered: 11/25/2024 [facility] Comment on above: Ordered: 11/25/2024 End: 12-23-2024 HIV Screen [employer] Comment on above: Once for 1 Occurrenc es starting 12/23/2024 until 12/23/2024 HIV-1/HIV-2 antigen/antibody combination immunoassay HIV-1 and HIV-2 antibodies Lab Routine Missed menses , unspecified gestational age Ordered: 11/25/2024 [facility] Comment on above: Ordered: 11/25/2024 Human papilloma viru s DNA [Presence] in Unspecified specimen by Probe with amplification HPV DNA probe, amplified Microbiology Routine Well woman exam with routine gynecological exam Ordered: 01/20/2025 [facility] Comment on above: Ordered: 01/20/2025 Neisseria gonorrhoea e DNA [Presence] in Unspecified specimen by JOSELYN with probe detection Neisseria gonorrhea DNA probe, direct Lab Routine Exposure to STD Ordered: 01/20/2025 [facility] Comment on above: Ordered: 01/20/2025 End: 01-11-2021 Prothrombin Gene Mutation Prothrombin Gene Mutation Lab Routine Once for 1 Occurrences starting 01/11/2021 until 01/11/2021 [employer] Phone: Comment on above: Once for 1 Occurrenc es starting 01/11/2021 until 01/11/2021 Prothrombin Gene Mutation Prothr ombin Gene Mutation Lab Routine 01/11/2021 1:58 PM [facility] Phone: Reagin Ab [Presence] in Serum by RPR RPR Lab Routine Missed menses , unspecified gestational age Ordered: 11/25/2024 [facility] Comment on above: Ordered: 11/25/2024 Rubella antibody, IgG Rubella an tibody, IgG Lab Routine Missed menses , unspecified gestational age Ordered: 11/25/2024 [facility] Comment on above: Ordered: 11/25/2024 End: 12-23-2024 Rubella antibody, IgG [facility] [employer] Comment on above: Once for 1 Occurrenc es starting 12/23/2024 until 12/23/2024 SURESWAB(R) ADVANCED VAGINITIS PLUS, TMA SURESWAB(R) ADVANCED VAGINITIS PLUS, TMA Pathology and Cytology Routine Vaginal discharge Ordered: 01/20/2025 [facility] Comment on above: Ordered: 01/20/2025 End: 01-11-2021 T. pallidum Ab T. pallidum Ab Lab Routine Once for 1 Occurrences starting 01/11/2021 until 01/11/2021 [employer] Phone: Comment on above: Once for 1 Occurrenc es starting 01/11/2021 until 01/11/2021 T. pallidum Ab T. pallidum Ab L ab Routine 01/11/2021 1:58 PM [facility] Phone: End: 12-23-2024 Yu Currie [facility] [employer] Comment on above: Once for 1 Occurrenc [...] due to excess calories affecting , antepartum ([facility]) Bipolar disorder, in full remission, most recent episode depressed 1 Occurrences starting 02/08/2025 until 02/08/2026 [employer] Work Phone: Comment on above: 1 Occurrences starti ng 02/08/2025 until 02/08/2026 End: 01-11-2021 Varicella Zoster Antibody, IgG Varicella Zoster Antibody, IgG Lab Routine Once for 1 Occurrences starting 01/11/2021 until 01/11/2021 [employer] [employer] Phone: Comment on above: Once for 1 Occurrenc es starting 01/11/2021 until 01/11/2021 Varicella Zoster Ant ibody, IgG Varicella Zoster Antibody, IgG Lab Routine 01/11/2021 1:58 PM EST [employer] [employer] Phone: End: 01-11-2021 Vitamin D 25 Hydroxy Vitamin D 25 Hydroxy Lab Routine Once for 1 Occurrences starting 01/11/2021 until 01/11/2021 [employer] Phone: Comment on above: Once for 1 Occurrenc es starting 01/11/2021 until 01/11/2021 Vitamin D 25 Hydroxy [employer] Work Phone: End: 06-25-2021 Vitamin D 25 Hydroxy Vitamin D 25 Hydroxy Lab Routine Once for 1 Occurrences starting 06/25/2021 until 06/25/2021 [employer] Work Phone: Comment on above: Once for 1 Occurrenc es starting 06/25/2021 until 06/25/2021 Immunizations Immunization Date Immunization Notes Care Provider Jeevan calderon 08-03-2024 influenza virus vaccine, unspecified formulation Christy Prado LPN [facility] 09-08-2023 influenza virus vaccine, unspecified formulation Jaida Chadwick MD Work Phone: [facility] Payers Date Payer Category Payer [facility] BCBS [id number] 2024 Self-pay 2020 [facility] [employer] - Other [id number] 2014 Unknown [id number] [id number]. 2.7.3.819938.315 1993 Unknown [id number] 2.16.840.1.782932.3.579. 2.174 1993 Unknown [id number] 2.16.840.1.796668.3.579. 2.174 1993 Unknown [id number] 2.16.840.1.647240.3.579. 2.174 1993 Unknown [id number] 2.16.840.1.872342.3.579. 2.174 1993 Unknown [id number] 2.16.840.1.024868.3.579. 2.1286 1993 Unknown [id number] 2.16.840.1.853889.3.579. 2.1285 1993 Unknown [id number] 2.16.840.1.769307.3.579. 2.1285 1993 Unknown [id number] 2.16.840.1.345582.3.579. 2.1285 1993 Unknown [id number] 2.16.840.1.610194.3.579. 2.1285 1993 Unknown [id number] 2.16.840.1.931837.3.579. 2.1285 1993 Unknown [id number] 2.16.840.1.456369.3.579. 2.1285 1993 Unknown [id number] 2.16.840.1.666353.3.579. 2.1285 1993 Unknown [id number] 2.16.840.1.244472.3.579. 2.1285 1993 Unknown [id number] 2.16.840.1.591110.3.579. 2.1285 1993 Unknown [id number] 2.16.840.1.636111.3.579. 2. 1993 Unknown [id number] 2.16.840.1.353394.3.579. 2. 1993 Unknown [id number] 2.16.840.1.661907.3.579. 2. 1993 Unknown [id number] 2.16.840.1.741984.3.579. 2. 1993 Unknown [id number] 2.16.840.1.096861.3.579. 2.1258 1993 Unknown [id number] 2.16.840.1.252845.3.579. 2.1258 1993 Unknown [id number] 2.16.840.1.114305.3.579. 2.1258 1993 Unknown [id number] 2.16.840.1.163992.3.579. 2.1258 1993 Unknown [id number] 2.16.840.1.639865.3.579. 2.1258 1993 Unknown [id number] 2.16.840.1.932495.3.579. 2.1258 1993 Unknown [id number] 2.16.840.1.148256.3.579. 2.1258 1993 Unknown [id number] 2.16.840.1.936916.3.579. 2.1258 1993 Unknown [id number] 2.16840.1.164264.3.579. 2.1258 1993 Unknown [id number] 2.16840.1.008043.3.579. 2.1258 1993 Unknown [id number] 2.16840.1.297533.3.579. 2.1258 1993 Unknown [id number] 2.16.840.1.860548.3.579. 2.1258 1993 Unknown [id number] 2.16840.1.553468.3.579. 2.1258 1993 Unknown [id number] 2.16840.1.037522.3.579. 2.1259 Private Health Insurance [id number] Unknown [id number] 2.16840.1.474439.3.579. 2.531 Social History Date Type Detail Facility Tobacco smoking stat [facility] Unknown if ever smoked [facility] Work Phone: Start: 1993 Sex Assigned At Not on file [employer] Work Phone: Tobacco smoking stat [facility] Tobacco smoking consumption unknown [facility] Start: 1993 Sex Assigned At Female [facility] Start: 02-20-2013 End: 11-15-2020 History of Social function [facility] Start: 02-20-2013 End: 11-15-2020 Tobacco use panel [facility] Start: 10-01-2024 [facility] Start: 11-24-2024 Gender identity Identifies as female gender (finding) [facility] Start: 06-06-2015 End: 12-29-2024 Sex Female (finding) [facility] Start: 11-24-2020 End: 02-08-2025 Tobacco smoking status NHIS Ex-smoker [facility] Start: 11-03-2020 End: 11-03-2010 History of tobacco use Current smoker [facility] Start: 11-03-2020 End: 11-03-2010 History of tobacco use Cigarette Smoker [facility] Start: 11-24-2020 End: 02-08-2025 Tobacco use and exposure Smokeless tobacco non-user [facility] Start: 12-30-2024 End: 02-08-2025 Alcoholic beverage intake Ex-drinker (finding) [facility] Childcare Unknown [facility] Sexual Orientation [facility] Medical Equipment Procedure Code Equipment Code Equipment Origin al Text Equipment Identifier Dates [id number] Start: 12-23-2024 End: 01-22-2025 1 each by In Vit ro route Daily Use to check FSBS four times daily [id number] Start: 12-23-2024 End: 01-22-2025 Use 2 syringes i n the morning for insulin dosage and 2 syringes in the Evening for insulin dosage. Total of 4 syringes daily needed. [id number] Start: 01-07-2025 Goals Date Patient Goal Desired [...] morning was 85. documented in this encounter [facility] 06-13-2025 Telephone encounter Note Called pt and dicussed her blood sugars and she has all been in target since 2 days after her last adjustment on the . She will be induced on Friday night the . Fasting this morning was 85. [facility] 06-13-2025 History of Present illness Narrative Reason [...] Diagnosis Date SAB (spontaneous ) ([facility]) 10/2021 HISTORY PAST MEDICAL HISTORY SOCIAL HISTORY Past Medical History: Diagnosis Date SAB (spontaneous ) ([facility]) 10/2021 Social History Tobacco Use Smoking status: [...] in third trimester, single or unspecified fetus ([facility]) O36.63X0 US OB follow up transabdominal approach 2. 38 weeks gestation of ([facility]) Z3A.38 POCT urinalysis dipstick manually resulted 3. Third trimester ([facility]) Z34.93 POCT urinalysis dipstick manually resulted 4. Conceived by in vitro fertilization Z78.9 POCT urinalysis dipstick manually resulted 5. Factor 5 Leiden mutation, heterozygous ([facility]) D68.51 POCT urinalysis dipstick manually resulted 6. Insulin controlled gestational diabetes mellitus (GDM) during , antepartum ([facility]) O24.414 POCT urinalysis dipstick manually resulted Return [...] of: LEELEE Keita documented in this encounter [facility] 06-10-2025 Miscellaneous Notes Summary: [facility] Blood Glucose Log & Insulin Dose Change Called. No answer. Message left inquiring whether received message earlier this week regarding Eva Mccann CNM reviewed blood glucose log and increased Lantus evening dose to 29 Units daily. Requested return call or message to confirm received this insulin dose change. MyChart message also sent. documented in this encounter [facility] 06-10-2025 Telephone encounter Note Summary: [facility] Blood Glucose Log & Insulin Dose Change Called. No answer. Message left inquiring whether received message earlier this week regarding Eva Mccann CNM reviewed blood glucose log and increased Lantus evening dose to 29 Units daily. Requested return call or message to confirm received this insulin dose change. MyChart message also sent. [facility] 06-07-2025 Miscellaneous Notes Called pt to [...] for this week. documented in this encounter [facility] 06-07-2025 Telephone encounter Note Called pt to discuss her insulin change for this week and received voicemail. Left her a message that Eva Mccann reviewed her blood sugars and would like her to increase her lantus in the evening to 29 units. Asked her to please call back to verify that she got this new insulin change for this week. [facility] 06-06-2025 History of Present illness Narrative Reason for Appointment: Patient ID: Fannie Conley is a 29 y.o. female who presents for Routine Visit Patient presents today for Return OB appointment. MEDICATIONS Current Outpatient Medications Medication Instructions Alcohol Swabs (Alcohol Prep Pad) 70 % pads 1 Pad, Topical, Daily, Use four times daily to check FSBS. Blood Glucose Monitoring Suppl ([employer] Glucometer) w/Device kit 1 kit, Does not [...] Diagnosis Date SAB (spontaneous ) ([facility]) 10/2021 HISTORY PAST MEDICAL HISTORY SOCIAL HISTORY Past Medical History: Diagnosis Date SAB (spontaneous ) ([facility]) 10/2021 Social History Tobacco Use Smoking status: [...] ASSESSMENT & PLAN ICD-10-CM 1. Third trimester ([facility] Z34.93 2. 37 weeks gestation of ([facility]) Z3A.37 Return OB: Patient presents today for [...] of: LEELEE Keita documented in this encounter [facility] 05-30-2025 Miscellaneous Notes Called pt due to 3 elevations. Received voicemail. Left her a message that her numbers looked good. She had 3 elevations no pattern noted and one night she forgot her insulin. No change for this week and she will send in new blood sugars next week. [facility] Telephone encounter Note Called pt due to 3 elevations. Received voicemail. Left her a message that her numbers looked good. She had 3 elevations no pattern noted and one night she forgot her insulin. No change for this week and she will send in new blood sugars next week. [facility] 05-30-2025 History of Present illness Narrative Reason for Appointment: Patient ID: Fannie Conley is a 29 y.o. female who presents for Routine Visit Patient presents today for Return OB appointment. MEDICATIONS Current Outpatient Medications Medication Instructions Alcohol Swabs (Alcohol Prep Pad) 70 % pads 1 Pad, Topical, Daily, Use four times daily to check FSBS. Blood Glucose Monitoring Suppl ([employer] Glucometer) w/Device kit 1 kit, Does not [...] Diagnosis Date SAB (spontaneous ) ([facility]) 10/2021 HISTORY PAST MEDICAL HISTORY SOCIAL HISTORY Past Medical History: Diagnosis Date SAB (spontaneous ) ([facility]) 10/2021 Social History Tobacco Use Smoking status: [...] nursing note reviewed. Exam conducted with a manager skilled present. Vitals: Estimated body mass index is 43.16 kg/m as calculated from the following: Height as of 04/18/25: 5' 2 . Weight as of this encounter: 236 lb. BP: 130/82 No LMP recorded. Patient is . ASSESSMENT & PLAN ICD-10-CM 1. Right otitis media, unspecified otitis media type H66.91 ofloxacin (Floxin) 0.3 % otic solution 2. Third trimester ([facility]) Z34.93 POCT urinalysis dipstick manually resulted CANCELED: CULTURE, GROUP B STREP WITH SUSCEPTIBLITY CANCELED: CULTURE, GROUP B STREP WITH SUSCEPTIBLITY 3. 36 weeks gestation of ([facility]) Z3A.36 Return OB: Patient presents today for [...] doing well. Continues to transmit glucose to [facility] and no need for change in Insulin at this time. Documented by George Scherer NP on behalf of: Cain Donaldson DO documented in this encounter [facility] 05-27-2025 Hospital Discharge instructions Patient Education 05/27/2025 [...] include: ?8 oz (237 mL) of milk, rgimleq-praezoxebyqj-pcybj milk, and calcium-fortifiedfruit juice. Calcium-fortified means that [...] ?Spinach (cooked), rhubarb, beets, sweet potatoes, and Monegasque chard. ?Peanuts. ?Potato chips, kyrgyz fries, and baked potatoes with skin on. ?Nuts and nut products. ?Chocolate. If you regularly take a diuretic medicine, make sure to eat at least 1 or 2 servings of fruits or vegetables that are high in potassium each day. These include: ?Avocado. ?Banana. ?[place], prune, carrot, or tomato juice. ?Baked potato. [...] magnesium, fish oil, or vitamin B6. Take mzgu-xmq-lcsfvzw and prescription medicines only as told by [...] Casseroles. Pizza. Lasagna. Frozen meals. Potato chips. [place] Verdean fries. The items listed above may not [...] provider. Document Revised: 01/30/2023 Document Reviewed: 01/30/2023 [employer] Patient Education 2023 [employer]. Follow Up Care 05/16/2025 14:17:00 With:Jonathan GORE, ONEIDA Navarro, URO Address: When: Unknown [facility] 05-27-2025 Note Patient Education Nephrology [...] ? 8 oz (237 mL) of milk, gnxsxce-omzkrxuwneuu-ajvbj milk, and calcium-fortifiedfruit juice. Calcium-fortified means that [...] Spinach (cooked), rhubarb, beets, sweet potatoes, and Monegasque chard. ? Peanuts. ? Potato chips, kyrgyz fries, and baked potatoes with skin on. ? Nuts and nut products. ? Chocolate. ??? If you regularly take a diuretic medicine, make sure to eat at least 1 or 2 servings of fruits or vegetables that are high in potassium each day. These include: ? Avocado. ? Banana. ? [place], prune, carrot, or tomato juice. ? Baked [...] fish oil, or vitamin B6. ??? Take ezmx-qbg-ncgzlqt and prescription medicines only as told by your health (more content not included)... [facility] 05-26-2025 History of Present illness Narrative Reason [...] Diagnosis Date SAB (spontaneous ) ([facility]) 10/2021 HISTORY PAST MEDICAL HISTORY SOCIAL HISTORY Past Medical History: Diagnosis Date SAB (spontaneous ) ([facility]) 10/2021 Social History Tobacco Use Smoking status: [...] PLAN ICD-10-CM 1. Third trimester ([facility]) Z34.93 CULTURE, GROUP B STREP WITH SUSCEPTIBLITY CULTURE, GROUP B STREP WITH SUSCEPTIBLITY POCT urinalysis dipstick manually resulted 2. 36 weeks gestation of ([facility]) Z3A.36 Return OB: Patient presents today for [...] routine OB appointment. documented in this encounter [facility] 05-23-2025 History of Present illness Narrative Maternal- Medicine Consultation VIDEO Patient is present at home, provider present at [facility] HISTORY OF PRESENT ILLNESS: Fannie Conley is [...] Delivery recommendations : - Recommend delivery at [id number] - Discuss delivery if estimated weight is [...] values to us weekly by e-mail to: [email or web address] or by fax to: [phone] Devika Luu PA-C Maternal- Medicine Office phone: [phone] Devika Luu PA-C 05/23/25 [id number] documented in this encounter [facility] 05-17-2025 Miscellaneous Notes Called pt to let her know that Devika Onofrerenetta reviewed her blood sugars and did not want to make any changes for this week there was not pattern to change. She will stay on her 25 units of lantus in the evening for this week. Pt to send in new blood sugars next week. documented in this encounter [facility] 05-17-2025 Telephone encounter Note Called pt to let her know that Devika Luu reviewed her blood sugars and did not want to make any changes for this week there was not pattern to change. She will stay on her 25 units of lantus in the evening for this week. Pt to send in new blood sugars next week. [facility] 05-16-2025 History of Present illness Narrative Reason for Appointment: Patient ID: Fannie Conley is a 29 y.o. female who presents for Routine Visit Patient presents today for Return OB appointment. MEDICATIONS Current Outpatient Medications Medication Instructions Alcohol Swabs (Alcohol Prep Pad) 70 % pads 1 Pad, Topical, Daily, Use four times daily to check FSBS. Blood Glucose Monitoring Suppl ([employer] Glucometer) w/Device kit 1 kit, Does not [...] Diagnosis Date SAB (spontaneous ) ([facility]) 10/2021 HISTORY PAST MEDICAL HISTORY SOCIAL HISTORY Past Medical History: Diagnosis Date SAB (spontaneous ) ([facility]) 10/2021 Social History Tobacco Use Smoking status: [...] nursing note reviewed. Exam conducted with a manager skilled present. Vitals: Estimated body mass index is 43.71 kg/m as calculated from the following: Height as of 04/18/25: 5' 2 . Weight as of this encounter: 239 lb. BP: 120/70 No LMP recorded. Patient is . ASSESSMENT & PLAN ICD-10-CM 1. 34 weeks gestation of ([facility]) Z3A.34 POCT urinalysis dipstick manually resulted Urine culture 2. Third trimester ([facility]) Z34.93 POCT urinalysis dipstick manually resulted 3. Conceived by in vitro fertilization Z78.9 Urine culture 4. Factor 5 Leiden mutation, heterozygous ([facility]) D68.51 5. Insulin controlled gestational diabetes mellitus (GDM) during , antepartum ([facility]) O24.414 Patient presents today for a routine [...] Cain Donaldson DO documented in this encounter [facility] 05-11-2025 Miscellaneous Notes Left a voicemail regarding her blood sugar log from 05/02/25 to 05/08/25. Dr. Askew reviewed it, and there are no medication changes this week. Continue 25 units of lantus in the evening. Patient to continue sending weekly BG logs. Will send MyChart as well. documented in this encounter [facility] 05-11-2025 Telephone encounter Note Left a voicemail regarding her blood sugar log from 05/02/25 to 05/08/25. Dr. Askew reviewed it, and there are no medication changes this week. Continue 25 units of lantus in the evening. Patient to continue sending weekly BG logs. Will send MyChart as well. [facility] 05-03-2025 Miscellaneous Notes Called regarding blood sugar logs from 04/25/2025-05/01/2025, she had one elevated fasting blood sugar and two elevated blood sugars after lunch. Ashlynd could account for why her blood sugars were elevated after her meals. Provided encouragement. Continue to monitor carbohydrates and blood sugars. documented in this encounter [facility] 05-03-2025 Telephone encounter Note Called regarding blood sugar logs from 04/25/2025-05/01/2025, she had one elevated fasting blood sugar and two elevated blood sugars after lunch. Ashlynd could account for why her blood sugars were elevated after her meals. Provided encouragement. Continue to monitor carbohydrates and blood sugars. [facility] 05-03-2025 History of Present illness Narrative Reason [...] Diagnosis Date SAB (spontaneous ) ([facility]) 10/2021 HISTORY PAST MEDICAL HISTORY SOCIAL HISTORY Past Medical History: Diagnosis Date SAB (spontaneous ) ([facility]) 10/2021 Social History Tobacco Use Smoking status: [...] 1. size inconsistent with dates ([facility]) O26.849 US OB follow up transabdominal approach 2. Third trimester ([facility]) Z34.93 POCT urinalysis dipstick manually resulted 3. 32 weeks gestation of ([facility]) Z3A.32 4. Conceived by in vitro fertilization Z78.9 5. Factor 5 Leiden mutation, heterozygous ([facility]) D68.51 6. Insulin controlled gestational diabetes mellitus (GDM) during , antepartum ([facility]) O24.414 Return OB: Patient presents today for [...] of: LEELEE Keita documented in this encounter [facility] 04-25-2025 History of Present illness Narrative Maternal- Medicine Consultation VIDEO Patient is present at home, provider present at [facility] HISTORY OF PRESENT ILLNESS: Fannie Conley is [...] on right. She is following urology through [facility]. Her pain and symptoms have improved, are [...] TSH 3.31 11/24/2020 No components found for: PSYCHIATRIC Lab Results Component Value Date CREATININE 0.73 [...] Delivery recommendations : - Recommend delivery at [id number] - Discuss delivery if estimated weight is [...] values to us weekly by e-mail to: [email or web address] or by fax to: [phone] Devika Luu PA-C Maternal- Medicine Office phone: [phone] Devika Luu PA-C 04/25/25 1140 documented in this encounter [facility] 04-25-2025 Miscellaneous Notes TRUCK DRIVER HEAVY CALLED PATIENT. NO ANSWER. LEFT VM ASKING THE PATIENT TO EMAIL US HER BLOOD GLUCOSE LOGS FOR HER UPCOMING APPOINTMENT WITH DEVIKA MARTINEZ. documented in this encounter [facility] 04-25-2025 Telephone encounter Note TRUCK DRIVER HEAVY CALLED PATIENT. NO ANSWER. LEFT VM ASKING THE PATIENT TO EMAIL US HER BLOOD GLUCOSE LOGS FOR HER UPCOMING APPOINTMENT WITH DEVIKA MARTINEZ. [facility] 04-20-2025 Miscellaneous Notes Left message for patient that MFM provider reviewed blood sugar logs and no changes are needed at this time. Call back number provided. documented in this encounter [facility] 04-20-2025 Telephone encounter Note Left message for patient that M provider reviewed blood sugar logs and no changes are needed at this time. Call back number provided. [facility] History of Present illness Narrative Reason for Appointment: Patient ID: Fannie Conley is a 29 y.o. female who presents for Routine Visit Patient presents today for Return OB appointment. MEDICATIONS Current Outpatient Medications Medication Instructions Alcohol Swabs (Alcohol Prep Pad) 70 % pads 1 Pad, Topical, Daily, Use four times daily to check FSBS. Blood Glucose Monitoring Suppl ([employer] Glucometer) w/Device kit 1 kit, Does not [...] Diagnosis Date SAB (spontaneous ) ([facility]) 10/2021 HISTORY PAST MEDICAL HISTORY SOCIAL HISTORY Past Medical History: Diagnosis Date SAB (spontaneous ) ([facility]) 10/2021 Social History Tobacco Use Smoking status: [...] nursing note reviewed. Exam conducted with a manager skilled present. Vitals: There is no height or weight on file to calculate BMI. BP: No LMP recorded. Patient is . ASSESSMENT & PLAN ICD-10-CM 1. Third trimester ([facility]) Z34.93 2. 30 weeks gestation of ([facility]) Z3A.30 Return OB: Patient presents today for [...] Cain Donaldson DO documented in this encounter [facility] 04-12-2025 Miscellaneous Notes Called pt to discuss her insulin change. Devika Luu reviewed her blood sugars and would like her to increase her lantus in the evening to 25 units. Pt verbalized understanding and will start tonight. She will send in new blood sugars next week. documented in this encounter [facility] 04-12-2025 Telephone encounter Note Called pt to discuss her insulin change. Devika Tess reviewed her blood sugars and would like her to increase her lantus in the evening to 25 units. Pt verbalized understanding and will start tonight. She will send in new blood sugars next week. [facility] 04-11-2025 History of Present illness Narrative BG levels evaluated - insulin adjusted Devika Luu PA-C 04/11/25 1234 documented in this encounter [facility] 03-30-2025 History of Present illness Narrative REASON FOR OFFICE VISIT: Video Visit via Real-time Synchronous Audiovisual Provider Location: [facility]- [facility]INE AT [address] [address] Patient Location: Patient's home Video [...] that there are some limitations compared to [id number] evaluations. The patient consented to the presence [...] pain. +FM. She is being followed at [facility] due to GDMA2. States she is [...] TSH 3.31 11/24/2020 No results found for: [id number] Lab Results Component Value Date CREATININE 0.73 [...] values to us weekly by e-mail to: [email or web address] or by fax to: [phone] TIME OF CONSULTATION: 15 minutes with the patient, >50% in discussion and counseling, coordination of care which was [id number], review of records and communication back to referring provider. HOWARD Whitman 03/30/25 1344 documented in this encounter [facility] 03-30-2025 History of Present illness Narrative Reason [...] appointment. Patient continues to follow closely with [facility] and has telehealth visit today to review glucose logs. She continues on Lantus and doing well. No complaints today. Given orders for NST/BPP and has scheduled growth ultrasound with [facility]. Will obtain Hgb / hematocrit and platelets today. Documented by George Scherer NP on behalf of: George Scherer NP documented in this encounter [facility] 03-22-2025 Miscellaneous Notes Called pt and left [...] sugars next week. [facility] Telephone encounter Note Called pt and [...] send in new blood sugars next week. [facility] 03-16-2025 Miscellaneous Notes Received BG results and all but 4 are in target range. No pattern noted. Called and left message of praise for all efforts and to call if questions. To send next week again. No changes. Continue your current insulin dose for this week. documented in this encounter [facility] 03-16-2025 Telephone encounter Note Received BG results and all but 4 are in target range. No pattern noted. Called and left message of praise for all efforts and to call if questions. To send next week again. No changes. Continue your current insulin dose for this week. [facility] 03-11-2025 Miscellaneous Notes Summary: [facility] Blood Glucose Log & Insulin Dose Change Called and spoke with Merna who did receive message from early this week about BG log reviewed and increased Lantus evening dose to 19 Units daily. Apologized for not returning call noting life has been busy, hectic with foster placement. Denied any questions. documented in this encounter [facility] 03-11-2025 Telephone encounter Note Summary: [facility] Blood Glucose Log & Insulin Dose Change Called and spoke with Merna who did receive message from early this week about BG log reviewed and increased Lantus evening dose to 19 Units daily. Apologized for not returning call noting life has been busy, hectic with foster placement. Denied any questions. [email or web address] Work Phone: 03-07-2025 Miscellaneous Notes Called pt [...] for this week. documented in this encounter [email or web address] 03-07-2025 Telephone encounter Note Called pt to discuss her insulin change for this week and received voicemail. Left her a message that Dr Wade reviewed her blood sugars and would like her to increase her lantus in the evening to 19 units. Asked her to please call back to verify she got this new insulin change for this week. [email or web address] 03-03-2025 History of Present illness Narrative Reason [...] urine order. Patient is currently also seeing [facility], which are also managing Gestational Diabetes. Patient voiced that insulin was just increased to 17 units at HS yesterday. Patient to return to clinic 4 weeks for routine OB. Documented by Bee Parkinson LPN on behalf of: Cain Donaldson DO documented in this encounter [facility] 03-01-2025 Miscellaneous Notes Called and notified patient that Pat MCKOY reviewed her blood sugar log and would like her to increase her Lantus to 17 units in the evening. Encouraged patient to write down what she is eating when having elevations greater than 140. Patient verbalized understanding. documented in this encounter [facility] 03-01-2025 Telephone encounter Note Called and notified patient that Pat MCKOY reviewed her blood sugar log and would like her to increase her Lantus to 17 units in the evening. Encouraged patient to write down what she is eating when having elevations greater than 140. Patient verbalized understanding. [facility] 02-24-2025 History of Present illness Narrative REASON FOR OFFICE VISIT: Video Visit via Real-time Synchronous Audiovisual Provider Location: [facility]- [facility]ICINE AT [address] [address] Patient Location: Patient's home Video [...] that there are some limitations compared to [id number]-qs-[id number] evaluations. The patient consented to the presence [...] chest pain. She is being followed at [facility] due to GDMA2. States she is following [...] TSH 3.31 11/24/2020 No results found for: [id number] Lab Results Component Value Date CREATININE 0.73 [...] values to us weekly by e-mail to: [email or web address] or by fax to: [phone] TIME OF CONSULTATION: 25 minutes with the patient, >50% in discussion and counseling, coordination of care which was [id number], review of records and communication back to referring provider. HOWARD Whitman 02/24/25 1333 documented in this encounter [facility] 02-17-2025 Miscellaneous Notes Notified patient by phone of low risk CFDNA results. My direct phone number was given in case any questions arise. documented in this encounter [facility] 02-17-2025 Telephone encounter Note Notified patient by phone of low risk CFDNA results. My direct phone number was given in case any questions arise. [facility] 02-15-2025 Miscellaneous Notes Called and spoke with patient regarding blood sugar log. Noted 6 elevations after insulin change to Lantus last week- 3 fastings and 3 PP (1 was 140). Patient reports last 2 days fasting was 85 and 93. Continues to try dietary changes. Encouraged patient to send in another log next week. documented in this encounter [facility] 02-15-2025 Telephone encounter Note Called and spoke with patient regarding blood sugar log. Noted 6 elevations after insulin change to Lantus last week- 3 fastings and 3 PP (1 was 140). Patient reports last 2 days fasting was 85 and 93. Continues to try dietary changes. Encouraged patient to send in another log next week. [facility] 02-08-2025 History of Present illness Narrative [...] clinic Have you been seen here at [facility] in a previous ? No Recent ER visits or hospitalizations? No Bring blood sugar log or meter with you today? (Please bring them with you for every visit at [facility]) N/A Flu vaccine (Sep-January)? Any concerns that [...] 5day embryo transfer on 10/07/2024, JANIYA 06/25/2025. [employer]IL[employer] T[employer]ER , no genetic testing Prediabetes (A1c 5.9% [...] Medical History: Diagnosis Date Depression Gestational diabetes [place] product of in vitro fertilization (IVF) 2024 Suicide attempt ([facility]) SURGICAL HISTORY: Past Surgical History: Procedure Laterality [...] overall, although a single choroid plexus cyst ([employer]) is visualized. We discussed this finding. CPCs [...] send in blood glucose logs weekly to [facility] Recommend baseline HELLP labs including CBC, CMP, urine protein creatinine ratio, through primary OB Incomplete level 2 anatomy ultrasound echocardiogram, attempt completion in 4 weeks with [facility] Recommend growth ultrasounds every 4 weeks following completion of level 2 anatomy ultrasound, through primary OB Recommend twice weekly testing starting at 32 weeks gestation, through primary OB Delivery recommendations : Recommend delivery at [id number]-34a2i Discuss delivery if estimated weight is >4500g [...] developing diabetes later on. Monitor for depression [facility] office follow up already scheduled in 3 weeks DISPOSITION: At this point the patient is in complete care of her minor league baseball player. Patient does have ultrasound and office visit [...] Referring and communicating with other health healthcare representative (not separately reported) Documenting clinical information in the electronic or other health record Jaida Chadwick MD Maternal- Medicine [facility] [address] [facility] [address] [place] [address] [facility], the CDC, and other organizations representing maternal and public health professionals recommend that , , and lactating people and those considering receive the COVID-19 vaccination. Vaccination is the best method to reduce maternal and complications of SARS-CoV-2 infection. This document was created with [employer] technology. Though I make every effort to review the dictation as it is transcribed, on occasion the spoken word can be misinterpreted by the technology leading to inappropriate words, phrases, or sentences. This note is addressed to the requesting provider as a consultation for clinical guidance. Specific medical abbreviations are occasionally used and those are generally approved by the [place]?Board of?Obstetrics and?Gynecology?as well as?Shaji hutchinson abbreviations. The above plan of care was based solely on the diagnoses for which a consultation was requested. ?More frequent testing may be indicated based on her other medical/obstetrical conditions. The management of other or medical conditions is beyond the scope of requested consultation and will continue to be followed by the primary minor league baseball player or primary care provider. Note to patient: [...] Patient tolerated well. documented in this encounter [email or web address] 02-03-2025 Miscellaneous Notes Received call from Nurse at Dr Donaldson's office who states they do not have any records of genetic testing. Public Relations Director places call to Dr Pena's office at [facility] to inquire if they have any records of genetic testing for this - they also do not have any record of genetic testing. documented in this encounter [facility] 02-03-2025 Telephone encounter Note Received call from Nurse at Dr Donaldson's office who states they do not have any records of genetic testing. Public Relations Director places call to Dr Pena's office at [facility] to inquire if they have any records of genetic testing for this - they also do not have any record of genetic testing. [facility] 02-03-2025 Miscellaneous Notes Left voicemail for BELA Gamboa at Dr Donaldson's office requesting genetic testing that was completed prior to IVF be faxed over to my attention. documented in this encounter [facility] 02-03-2025 Telephone encounter Note Left voicemail for BELA Gamboa at Dr Donaldson's office requesting genetic testing that was completed prior to IVF be faxed over to my attention. [facility] 01-26-2025 History of Present illness Narrative [...] YES Have you been seen here at [facility] in a previous ? NO Recent ER visits or hospitalizations? NO Bring blood sugar log or meter with you today? (Please bring them with you for every visit at [facility]) YES, SEE LOGS. Flu vaccine (Sep-January)? YES [...] pain. +FM. She is being followed at [facility] due to GDMA2. States she is [...] TSH 3.31 11/24/2020 No results found for: [id number] Lab Results Component Value Date CREATININE 0.73 [...] baby. Little research has been done on long term care social worker effects of Metformin exposure to the fetus. [...] values to us weekly by e-mail to: [email or web address] or by fax to: [phone] TIME OF CONSULTATION: 35 minutes with the patient, >50% in discussion and counseling, coordination of care which was [id number], review of records and communication back to referring provider. 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 Current Exercise program walking Who prepares the meal pt Who purchase food at your home? pt Equipment use for cooking/food storage has all Food Assistance(Ex.WIC, [employer] [place]) knows about Dining out Yes 1-2 times [...] Fried rice Chicken Snack Snack Time Fannie Herrerayer presents for diet instruction per doctor order [...] care for you: OB Provider Family Doctor [facility] Nurse Name: Mendoza Name: No primary care provider [...] demonstration Is there anything about your culture, gnosticism, or personal beliefs we need to know about to care for you: none Primary Language spoken: Portuguese [22] Primary Language for learning: Portuguese Are you currently in a relationship where you are physically hurt, threatened or made to fee afraid? [] Yes [x] No Feather Curling Machine Operator needed? [] Yes [x] No Marital status/Living [...] If yes, where: On thge following scale, [place] the number, which describes your current level [...] was 60min. . documented in this encounter [facility] 01-26-2025 Instructions Sonya Lomax RN - [...] HOURS WHILE AWAKE documented in this encounter [facility] 01-20-2025 History of Present illness Narrative [...] nursing note reviewed. Exam conducted with a manager skilled present. Vitals: There is no height or [...] of: LEELEE Keita documented in this encounter [facility] 12-29-2024 Miscellaneous Notes I left a message for pt to call to schedule her us/ and consult, I will call her again documented [facility] 12-29-2024 Telephone encounter Note I left a message for pt to call to schedule her us/ and consult, I will call her again [facility] 12-23-2024 History of Present illness Narrative [...] nursing note reviewed. Exam conducted with a manager skilled present. Vitals: There is no height or [...] or undercooked meat, and stay away from [facility]. Patient has been consulted regarding any further do's and don'ts of . Patient voiced understanding and all questions and concerns were answered. Patient has done 4 rounds of invitro to conceive this . 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 Patient will be referred to [facility] and can discuss medication at that time [...] Cain Donaldson DO documented in this encounter [facility] 11-25-2024 History of Present illness Narrative Reason [...] or undercooked meat, and stay away from [facility]. Patient has also been advised to not change litter boxes and eat 6 small meals a day. Patient has been consulted regarding the do's and don'ts of . Patient was given labs and all questions and concerns were answered. Pt declined the [employer] gender/genetics form. Pt did state she is [...] documented in this encounter [facility] Evaluation + Plan note Future Appointments Appointment Date:11/25/2025 09:00:00 AM Scheduled Provider:Aissatou Castillo MD Location:[facility] Appointment Type:URO Office Visit [facility] Evaluation note No assessment inform ation available [facility] Work Phone: Evaluation note Diagnosis Missed [...] vitro fertilization, antepartum documented in this encounter [facility]* Diagnosis Well woman exam with routine gynecological exam Routine gynecological examination 17 weeks gestation of Second trimester state, incidental Exposure to STD Vaginal discharge Leukorrhea, not specified as infective documented in this encounter [facility] Healthcare[facility] note* Diagnosis Insulin controlled gestational diabetes mellitus (GDM) in second trimester- Primary documented in this encounter [facility]* Diagnosis Insulin controlled gestational diabetes mellitus (GDM) in second trimester documented in this encounter [facility]* Diagnosis Insulin controlled [...] recent episode depressed documented in this encounter [facility]* Diagnosis Insulin controlled gestational diabetes mellitus (GDM) in second trimester- Primary Choroid plexus cyst of fetus affecting care of mother, antepartum, single or unspecified fetus Heterozygous factor V Leiden affecting in second trimester, antepartum Severe obesity due to excess calories affecting , antepartum (CMS-HCC) documented in this encounter [facility]* Diagnosis Insulin controlled gestational diabetes mellitus (GDM) in second trimester- Primary Recurrent major depressive disorder, in partial remission Bipolar 1 disorder (CMS-HCC) Prediabetes in mother during documented in this encounter [facility]* Diagnosis Insulin controlled gestational diabetes mellitus (GDM) in second trimester Prediabetes in mother during documented in this encounter [facility]* Diagnosis 23 weeks gestation of Second trimester state, incidental induced hypertension, antepartum Transient hypertension of , antepartum Insulin controlled gestational diabetes mellitus (GDM) during , antepartum documented in this encounter [facility] Healthcare[facility] note* Diagnosis Second trimester state, incidental 27 weeks gestation of Gestational diabetes mellitus (GDM), antepartum, gestational diabetes method of control unspecified Factor 5 Leiden mutation, heterozygous (CMS/HCC) Conceived by in vitro fertilization documented in this encounter [facility] Healthcare[facility] note* Diagnosis Insulin controlled gestational diabetes mellitus (GDM) in second trimester- Primary Recurrent major depressive disorder, in partial remission Prediabetes in mother during documented in this encounter [facility] SystemEvaluation note* Diagnosis Insulin controlled gestational diabetes mellitus (GDM) in second trimester Prediabetes in mother during documented in this encounter [facility] System[facility] note* Diagnosis Third trimester (HHS-HCC) state, incidental 30 weeks gestation of (HHS-HCC) documented in this encounter [facility] Diagnosis Insulin controlled gestational diabetes mellitus (GDM) in third trimester- Primary documented in this encounter [facility] System[facility] note* Diagnosis size inconsistent with dates (HHS-HCC)- Primary Third trimester (HHS-HCC) state, incidental 32 weeks gestation of (HHS-HCC) Conceived by in vitro fertilization Factor 5 Leiden mutation, heterozygous (HHS-HCC) Insulin controlled gestational diabetes mellitus (GDM) during , antepartum (HHS-HCC) documented in this encounter [facility]* Diagnosis Insulin controlled gestational diabetes mellitus (GDM) in second trimester- Primary documented in this encounter [facility] System[facility] note* Diagnosis Insulin controlled gestational diabetes mellitus (GDM) in second trimester- Primary documented in this encounter [facility] SystemEvaluation note* Diagnosis 34 weeks [...] third trimester- Primary documented in this encounter [facility] SystemEvaluation note* Diagnosis Third trimester [...] available for this section [facility] InstructionsNot on filedocumented in this encounter [facility] [...] available for this section [facility] [employer] Chief Complaint and Reason for Visit Chief [...] and content) DATE CREATED AUTHOR 04/18/2024 [facility] DATE CREATED AUTHOR AUTHOR'S ORGANIZ ATION 03/11/2025 [facility] DATE CREATED AUTHOR AUTHOR'S ORGANIZ ATION 04/16/2025 [facility] DATE CREATED AUTHOR AUTHOR'S ORGANIZ ATION 05/25/2025 [facility] DATE CREATED AUTHOR AUTHOR'S ORGANIZ ATION 05/29/2025 [facility] DATE CREATED AUTHOR AUTHOR'S ORGANIZ ATION 06/05/2025 [facility] DATE CREATED AUTHOR AUTHOR'S ORGANIZ ATION 06/13/2025 [facility]IC Reason for Visit (unrecogniz ed section and content) Reason Comments Amenorrhea Reason Comments Routine Visit Reason Comments Gestational Diabetes Specialty Diagnoses / Procedures Referred By Otis t Referred To Contact Maternal and Medicine Diagnoses Insulin controlled gestational diabetes mellitus (GDM) in second trimester Cain Donaldson DO Phone: tel: fax: [facility] [address] [place] [address] Phone: tel: fax: Referral ID Status Reason Start Date Expiration Date Visits Requested Visits Authorized [id number] Pending Review Specialty Services Required 01/11/2025 01/11/2026 [...] BE BASED ON THE PRIMARY CLINICAL RECORDS. [facility] [employer] [facility]. provides no warranty or guarantee of the accuracy or completeness of information in this document.
[2025-06-17 17:12] VITALS: BP 132/72; PULSE 82
== END 2025-06-17 17:34 | disposition home or self-care (01) ==
LOC: FBCO 17:05 → FBC 17:06
PROVIDERS: PCP Obstetrics & Gynecology; Visit Provider Obstetrics & Gynecology
DX: O24.419 Gestational diabetes mellitus in pregnancy, unspecified control (principal)
CPT/HCPCS: 59025

== ENCOUNTER 2025-06-21 05:14 | Inpatient (IN) | payer BC, SELFPAY ==
[2025-06-21] VITALS (69 sets, daily range): BP systolic 108–153; BP diastolic 54–95; PULSE 61–110; TEMP 36.6–37
--- OUTSIDE RECORDS SUMMARY | 2025-06-21 05:18 | XMS_ITS | CCD ---
Author Organization [facility] Care Team Providers Care Drip Molder Name Role Phone Unavailable Primary Care Provider Unavailabl e NO FAMILY, PHYSICIAN Primary Care Provider Unava LINDSAY Duckworth Attending Provider Renita Fu Attending Unavailable Renita Fu Admitting Unavailable NO FAMILY, PHYSICIAN Primary Care Unavailable Unavailable Primary Care Provider Unavailabl e Unavailable Primary Care Provider Unavailabl e Unavailable Primary Care Provider Unavailabl e Unavailable Primary Care Provider Unavailabl e TAYLOR KRISHNANSSICA Nicholas Referring Unavailable ZOLTONTAYLORJOSE Nicholas Referring Unavailable MENDOZA, [...] MENDOZA, CAIN R Referring Unavailable LAVOY, DEVIKA E Attending Unavailable MENDOZA, CAIN R Referring Unavailable LAVOY, DEVIKA E Attending Unavailable MENDOZA, CAIN R Referring Unavailable MENDOZA, Cain R Primary Care Physician Aissatou Castillo Attending Unavailable MENDOZA, Cain R Referring Unavailable Aissatou Castillo Admitting Unavailable Aissatou Castillo Attending Unavailable EMSSI MCKNIGHT Attending Unavail able MENDOZA, Cain R Referring Unavailable Aissatou Castillo Attending Unavailable HOLGER DONALDSONY Attending Unavailable CHRISTY SCHWARTZ Attending Unavailable MENDOZA, CAIN Attending Unavailable CHRISTY SCHWARTZ Attending Unavailable MENDOZA, CAIN Attending Unavailable EFREN, CHRISTY Attending Unavailable EFREN, CHRISTY Referring Unavailable CAIN DONALDSON Attending Unavailable EFREN, CHRISTY Attending Unavailable CAIN DONALDSON Attending Unavailable EFREN, CHRISTY Attending Unavailable EFREN, CHRISTY Attending Unavailable EFREN, CHRISTY Referring Unavailable Medications Current Medications Medication Drug [...] , resulting from in vitro fertilization, antepartum ([facility]) 1 kit Daily Use four times [...] , resulting from in vitro fertilization, antepartum ([facility]) Apply 1 Pad topically Daily Use [...] OB BPP W NON-STRESS on 06-14-2025 [place] [address] Ultrasound Report Signed Patient: FANNIE CONLEY MR#: [id number] : 1995 Acct:[id number] Age/Sex: 29 / F ADM Date: 06/14/25 Loc: US Attending Dr: George Scherer Ordering Physician: George Scherer Date of Service: 06/14/25 Procedure(s): US OB BPP w non-stress Accession Number(s): [id number] cc: George Scherer; Cain Donaldson D.O. [place] [address] Patient Name: FANNIE CONLEY MRN: [id number] date: 1995 Sex: F Assigned Patient Location: US Current Patient Location: Accession/Order Number: [id number] Exam Date: 06/14/2025 23:22 Report Date: 06/14/2025 [...] Steen M.D. 06/14/2025 11:24 PM Dictation Location: [place] [address] Electronically authenticated by: [id number] Y Date: 06/14/2025 23:24 Dictated By: Zion Steen D.O. Signed By: 06/14/252325 DD/ 23 TD/TT: District Agent: [facility] Radiology, Radiologist, - 06/14/2025 [place] [address] Ultrasound Report Signed Patient: FANNIE CONLEY MR#: [id number] : 1995 Acct:[id number] Age/Sex: 29 / F ADM Date: 06/14/25 Loc: US Attending Dr: George Scherer Ordering Physician: George Scherer Date of Service: 06/14/25 Procedure(s): US OB BPP w non-stress Accession Number(s): [id number] cc: George Scherer; Cain Donaldson D.O. The [place] [address] Patient Name: FANNIE CONLEY MRN: [facility]:[id number] date: 1995 Sex: F Assigned Patient Location: Current Patient Location: Accession/Order Number: [id number] Exam Date: 06/14/2025 23:22 Report Date: 06/14/2025 [...] Steen M.D. 06/14/2025 11:24 PM Dictation Location: [place] [address] Electronically authenticated by: [id number] Y Date: 06/14/2025 23:24 Dictated By: Zion Steen D.O. Signed By: 06/14/252325 DD/ 23 TD/TT: District Agent: [facility] Radiology Study observation (narrative) [facility] US OB BPP W NON-STRESS Ordered By: Radiologist Radiology on 06-14-2025 [facility] Work Phone: Urinalysis macro (dipstick) panel (U)on 06-13-2025 Bilirubin, UA Negative Negative - 4(70) +++ mg/dL [facility] Blood, UA Negative Negative - 50 Warren/mcL [facility] Clarity, UA Cloudy [facility] Color, UA Renita [facility] Glucose, UA Negative Negative - 2000(110) ++++ mg/dL [facility] Interpretation and review of laboratory results Abnormal [facility] Ketones, UA Negative Negative - 160(16) ++++ mg/dL [facility] Leukocytes, UA Positive Negative - 500+++ Malick/mcL [facility] Comment on above: 3+ Nitrite, UA Negative Negative - Positive [facility] pH, UA 6.5 5 - 9 [facility] Protein, UA Positive Negative - 2000(20) ++++ mg/dL [facility] Spec Grav, UA 1.015 1 - 1.03 [facility] Urobilinogen, UA 1.0 0.2 - 12 mg/dL [facility] US OB BPP W NON-STRESS on 06-08-2025 [place] [address] Ultrasound Report Signed Patient: FANNIE CONLEY MR#: [id number] : 1995 Acct:[id number] Age/Sex: 29 / F ADM Date: 06/07/25 Loc: US Attending Dr: George Scherer Ordering Physician: George Scherer Date of Service: 06/07/25 Procedure(s): US OB BPP w non-stress Accession Number(s): [id number] cc: George Scherer; Cain Donaldson D.O. The [address] [address] Patient Name: FANNIE CONLEY MRN: [id number]:[id number] date: 1995 Sex: F Assigned Patient Location: [facility] Current Patient Location: Accession/Order Number: [id number] Exam Date: 06/08/2025 09:04 Report Date: 06/08/2025 09:04 At the request of: GEORGE SCHERER Procedure: US OB BPP w non-stress Biophysical profile. Reason for exam: Gestational diabetes. COMPARISON: 05/24/2025 TECHNIQUE: Transabdominal imaging of the gravid uterus was obtained. FINDINGS: The vessel master reports a BPP of 8 out of 8. ZITA is normal at 15.1 cm. heart rate 157 bpm. US/US OB BPP w non-stress IMPRESSION: BPP 8 out of 8. Impression dictated by: Mike Huerta Jr., D.O. 06/08/2025 9:04 AM Dictation Location: [place] [address] Electronically authenticated by: [id number] Y Date: 06/08/2025 09:04 Dictated By: Mike Huerta M.D. Signed By: 06/08/25906 DD/ 3 TD/TT: District Agent: [facility] Radiology, Radiologist, MD - 06/08/2025 [place] [address] Ultrasound Report Signed Patient: FANNIE CONLEY MR#: [id number] : 1995 Acct:[id number] Age/Sex: 29 / F ADM Date: 06/07/25 Loc: US Attending Dr: George Scherer Ordering Physician: George Scherer Date of Service: 06/07/25 Procedure(s): US OB BPP w non-stress Accession Number(s): [id number] cc: George Scherer; Cain Donaldson D.O. The [address] [address] Patient Name: FANNIE CONLEY MRN: [facility]:[id number] date: 1995 Sex: F Assigned Patient Location: [facility] Current Patient Location: Accession/Order Number: [id number] Exam Date: 06/08/2025 09:04 Report Date: 06/08/2025 09:04 At the request of: GEORGE GILMER Procedure: US OB BPP w non-stress Biophysical profile. Reason for exam: Gestational diabetes. COMPARISON: 05/24/2025 TECHNIQUE: Transabdominal imaging of the gravid uterus was obtained. FINDINGS: The vessel master reports a BPP of 8 out of 8. ZITA is normal at 15.1 cm. heart rate 157 bpm. US/US OB BPP w non-stress IMPRESSION: BPP 8 out of 8. Impression dictated by: Mike Huerta Jr., D.O. 06/08/2025 9:04 AM Dictation Location: [employer] Electronically authenticated by: [id number] Y Date: 06/08/2025 09:04 Dictated By: Mike Huerta M.D. Signed By: 06/08/25906 DD/ 3 TD/TT: District Agent: [facility] Radiology Study observation (narrative) [facility] US OB BPP W NON-STRESS Ordered By: Radiologist Radiology on 06-08-2025 [facility] Work Phone: Urinalysis macro (dipstick) panel (U)on 05-30-2025 Bilirubin, UA Negative Negative - 4(70) +++ mg/dL [facility] Blood, UA Negative Negative - 50 Warren/mcL [facility] Clarity, UA Clear [facility] Color, UA Yellow [facility] Glucose, UA Negative Negative - 2000(110) ++++ mg/dL [facility] Interpretation and review of laboratory results Abnormal [facility] Ketones, UA Negative Negative - 160(16) ++++ mg/dL [facility] Leukocytes, UA Moderate Negative - 500+++ Malick/mcL [facility] Nitrite, UA Negative Negative - Positive [facility] pH, UA 6.5 5 - 9 [facility] Protein, UA Negative Negative - 2000(20) ++++ mg/dL [facility] Spec Grav, UA 1.015 1 - 1.03 [facility] Urobilinogen, UA 0.2 0.2 - 12 mg/dL [facility] C Urineon 05-29-2025 Bacteria identified Cx [facility] (U) Microbiology PROCEDURE: Urine Culture [R1] SOURCE: U Random BODY SITE: COLLECTED DATE/TIME: 05/27/2025 10:11 EDT RECEIVED DATE/TIME: 05/27/2025 17:02 EDT START DATE/TIME: 05/27/2025 17:02 EDT FREE TEXT SOURCE: Jonathan GORE, Aissatou Castillo MD, Aissatou Nguyen FINAL REPORTS Final Report [] Verified Date/Time: 05/29/2025 07:20 EDT 800 cfu/ml Mixed skin contaminants Performing Locations R1: This test was performed at: [facility], [address] [place] [address], [address]- , [place], Normal [facility] Comment on above: Performed By: #### 2 [id number] #### [facility] [address] [place] [address] Ambulatory Visit Summaryon 0 05-27-2025 Ambulatory Visit [...] Castillo MD Where: [facility] [address] [place] [address]- You Need to Schedule the Following Appointments Follow Up with Lue MD, ONEIDA Navarro, URO When: Where: Medications What [...] ??? E (more content not included)... Normal [facility] Reminderson 05-27-2025 Reminders Reminders From: Jacqueline Rascon To: EU - Recalls Lujalen; Sent: 05/27/2025 10:10:01 EDT Show up: 10/27/2025 09:09:00 EST Subject: [address] Due Date/Time: 11/27/2025 09:09:00 EST Reminder Message Please Remember to: Please call pt to schedule [address] [facility]. Order in 05/27/25 encounter. Thanks! Normal [facility] Urology Office/Clinic Noteon 05-27-2025 Urology [...] 1. Kidney stones (N20.0: Calculus of kidney) BERRY 04/19/25 [facility] - An almost 1 cm [...] 90 oz fluid daily (add 1/4 cup lemon/flandreau daily) -Diet mods (more fruits/veg, limit animal protein and salt) Follow-up With When Contact Information Jonathan GORE, Aissatou Nguyen, URL, URO Additional Instructions: [address] AP wo con ([facility]) Patient Education Dietary Guidelines to Help [...] Protein Urine Dipstick: Negative (05/27/25 09:35:00) Specific [place] Urine Dipstick: 1.020 (05/27/25 09:35:00) Urine Appearance Urine Dipstick: Clear (05/27/25 09:35:00) Urine Color Urine Dipstick: Yellow (05/27/25 09:35:00) Urobilinogen Urine Dipstick: Normal 0.2-1 EU/dl (05/27/25 09:35:00) pH Urine Dipstick: 7 (05/27/25 09:35:00) Normal [facility] Comment on above: Result Comment: Elec tronically Signed By: Aissatou Castillo MD\.br\Date and Time Signed: 05/27/25 10:29 EDT\.br\Electronically Co-Signed By: Jacqueline Racson\.br\Date and Time Co-Signed: 05/27/25 10:09 EDT Urinalysis macro (dipstick) panel (U)on 05-26-2025 Bilirubin, UA Negative Negative - 4(70) +++ mg/dL [facility] Blood, UA Positive Negative - 50 Warren/mcL [facility] Comment on above: Small Clarity, UA Clear [facility] Color, UA Yellow [facility] Glucose, UA Negative Negative - 1999(110) ++++ mg/dL [facility] Interpretation and review of laboratory results Abnormal [facility] Ketones, UA Negative Negative - 160(16) ++++ mg/dL [facility] Leukocytes, UA Positive Negative - 500+++ Malick/mcL [facility] Comment on above: small Nitrite, UA Negative Negative - Positive [facility] pH, UA 6.5 5 - 9 [facility] Protein, UA Negative Negative - 1999(20) ++++ mg/dL [facility] Spec Grav, UA 1.01 1 - 1.03 [facility] Urobilinogen, UA 0.2 0.2 - 12 mg/dL [facility] US OB BPP W NON-STRESS on 05-24-2025 The [place] [id number] Ultrasound Report Signed Patient: FANNIE CONLEY MR#: [id number] : 1995 Acct:[id number] Age/Sex: 29 / F ADM Date: 05/24/25 Loc: US Attending Dr: George Scherer Ordering Physician: George Scherer Date of Service: 05/24/25 Procedure(s): US OB BPP w non-stress Accession Number(s): [id number] cc: George Scherer; Cain Donaldson D.O. The [place] [id number] Patient Name: FANNIE CONLEY MRN: [facility]:[id number] date: 1995 Sex: F Assigned Patient Location: [facility] Current Patient Location: Accession/Order Number: [id number] Exam Date: 05/24/2025 21:54 Report Date: 05/24/2025 [...] Steen M.D. 05/24/2025 9:55 PM [facility] Electronically authenticated by: [id number] Y Date: 05/24/2025 21:55 Dictated By: Zion Steen D.O. Signed By: 05/24/252156 DD/ 54 TD/TT: District Agent: [facility] Radiology, Radiologist, - 05/24/[address] [address] Ultrasound Report Signed Patient: FANNIE CONLEY MR#: [id number] : 1995 Acct:[id number] Age/Sex: 29 / F ADM Date: 05/24/25 Loc: US Attending Dr: George Scherer Ordering Physician: George Scherer Date of Service: 05/24/25 Procedure(s): US OB BPP w non-stress Accession Number(s): [id number] cc: George Scherer; Cain Donaldson D.O. The [place] [id number] Patient Name: FANNIE CONLEY MRN: [id number] date: 1995 Sex: F Assigned Patient Location: [facility] Current Patient Location: Accession/Order Number: [id number] Exam Date: 05/24/2025 21:54 Report Date: 05/24/2025 [...] Steen M.D. 05/24/2025 9:55 PM Dictation Location: [place] [address] Electronically authenticated by: [id number] Y Date: 05/24/2025 21:55 Dictated By: Zion Steen D.O. Signed By: 05/24/252156 DD/ 54 TD/TT: District Agent: [facility] Radiology Study observation (narrative) [facility] US OB BPP W NON-STRESS Ordered By: Radiologist Radiology on 05-24-2025 [facility] Work Phone: US OB BPP W NON-STRESS on 05-17-2025 [place] [address] Ultrasound Report Signed Patient: FANNIE CONLEY MR#: [id number] : 1995 Acct:[id number] Age/Sex: 29 / F ADM Date: 05/16/25 Loc: US Attending Dr: George Scherer Ordering Physician: George Scherer Date of Service: 05/16/25 Procedure(s): US OB BPP w non-stress Accession Number(s): [id number] cc: George Scherer; Cain Donaldson D.O. [place] [address] Patient Name: FANNIE CONLEY MRN: [id number] date: 1995 Sex: F Assigned Patient Location: US Current Patient Location: Accession/Order Number: [id number] Exam Date: 05/17/2025 08:06 Report Date: 05/17/2025 [...] Munson M.D. 05/17/2025 8:07 AM Dictation Location: [place] [address] Electronically authenticated by: [id number] Y Date: 05/17/2025 08:07 Dictated By: Justina Munson M.D. Signed By: 05/17/2509 DD/ 6 TD/TT: District Agent: [facility] Radiology, Radiologist, - 05/17/2025 [place] [address] Ultrasound Report Signed Patient: FANNIE CONLEY MR#: [id number] : 1995 Acct:[id number] Age/Sex: 29 / F ADM Date: 05/16/25 Loc: US Attending Dr: George Scherer Ordering Physician: George Scherer Date of Service: 05/16/25 Procedure(s): US OB BPP w non-stress Accession Number(s): [id number] cc: George Scherer; Cain Donaldson D.O. The [place] [id number] Patient Name: FANNIE CONLEY MRN: [facility]:[id number] date: 1995 Sex: F Assigned Patient Location: Current Patient Location: Accession/Order Number: [id number] Exam Date: 05/17/2025 08:06 Report Date: 05/17/2025 [...] This is in normal range. Total score: 8 US/US OB BPP w non-stress IMPRESSION: NORMAL BIOPHYSICAL PROFILE Impression dictated by: Justina Munson M.D. 05/17/2025 8:07 AM Dictation Location: [place] [address] Electronically authenticated by: [id number] Y Date: 05/17/2025 08:07 Dictated By: Justina Munson M.D. Signed By: 05/17/25808 DD/ 6 TD/TT: District Agent: [facility] Radiology Study observation (narrative) [facility] US OB BPP W NON-STRESS Ordered By: Radiologist Radiology on 05-17-2025 [facility] Work Phone: Urinalysis macro (dipstick) panel (U)on 05-16-2025 Bilirubin, UA Negative Negative - 4(70) +++ mg/dL [facility] Blood, UA Positive Negative - 50 Warren/mcL [facility] Comment on above: trace-intact Clarity, UA Clear [facility] Color, UA Yellow [facility] Glucose, UA Negative Negative - 2000(110) ++++ mg/dL [facility] Interpretation and review of laboratory results Abnormal [facility] Ketones, UA Negative Negative - 160(16) ++++ mg/dL [facility] Leukocytes, UA Moderate Negative - 500+++ Malick/mcL [facility] Nitrite, UA Negative Negative - Positive [facility] pH, UA 7 5 - 9 [facility] Protein, UA Negative Negative - 2000(20) ++++ mg/dL [facility] Spec Grav, UA 1.02 1 - 1.03 [facility] Urobilinogen, UA 0.2 0.2 - 12 mg/dL [facility] US OB BPP W NON-STRESS on 05-10-2025 [place] [address] Ultrasound Report Signed Patient: FANNIE CONLEY MR#: [id number] : 1995 Acct:[id number] Age/Sex: 29 / F ADM Date: 05/10/25 Loc: US Attending Dr: George Scherer Ordering Physician: George Scherer Date of Service: 05/10/25 Procedure(s): US OB BPP w non-stress Accession Number(s): [id number] cc: George Scherer; Cain Donaldson D.O. The [address] [address] Patient Name: FANNIE CONLEY MRN: [facility]:[id number] date: 1995 Sex: F Assigned Patient Location: [facility] Current Patient Location: Accession/Order Number: [id number] Exam Date: 05/10/2025 18:22 Report Date: 05/10/2025 [...] Epperson M.D. 05/10/2025 6:23 PM Dictation Location: [place] [address] Electronically authenticated by: [id number] Y Date: 05/10/2025 18:23 Dictated By: Larry Epperson M.D. Signed By: 05/10/251825 DD/ 22 TD/TT: District Agent: [facility] Radiology, Radiologist, MD - 05/10/2025 [place] [address] Ultrasound Report Signed Patient: FANNIE CONLEY MR#: [id number] : 1995 Acct:[id number] Age/Sex: 29 / F ADM Date: 05/10/25 Loc: US Attending Dr: George Scherer Ordering Physician: George Scherer Date of Service: 05/10/25 Procedure(s): US OB BPP w non-stress Accession Number(s): [id number] cc: George Scherer; Cain Donaldson D.O. The [address] [address] Patient Name: FANNIE CONLEY MRN: [facility]:[id number] date: 1995 Sex: F Assigned Patient Location: [facility] Current Patient Location: Accession/Order Number: [id number] Exam Date: 05/10/2025 18:22 Report Date: 05/10/2025 [...] Epperson M.D. 05/10/2025 6:23 PM Dictation Location: [place] [address] Electronically authenticated by: [id number] Y Date: 05/10/2025 18:23 Dictated By: Larry Epperson M.D. Signed By: 05/10/251825 DD/ 22 TD/TT: District Agent: [facility] Radiology Study observation (narrative) [facility] OB BPP W NON-STRESS Ordered By: Radiologist Radiology on 05-10-2025 [facility] Work Phone: OB FOLLOW UP TRANSABDOMIN AL APPROACHon 05-10-2025 OB FOLLOW UP TRANSABDOMINAL APPROACH FINDINGS: A [...] OB BPP W NON-STRESS on 05-04-2025 [place] [address] Ultrasound Report Signed Patient: FANNIE CONLEY MR#: [id number] : 1995 Acct:[id number] Age/Sex: 29 / F ADM Date: 05/03/25 Loc: US Attending Dr: George Scherer Ordering Physician: George Scherer Date of Service: 05/03/25 Procedure(s): US OB BPP w non-stress Accession Number(s): [id number] cc: George Scherer; Cain Donaldson D.O. [place] [id number] Patient Name: FANNIE CONLEY MRN: [facility]:[id number] date: 1995 Sex: F Assigned Patient Location: US Current Patient Location: Accession/Order Number: [id number] Exam Date: 05/04/2025 07:57 Report Date: 05/04/2025 [...] Munson M.D. 05/04/2025 7:58 AM Dictation Location: [place] [address] Electronically authenticated by: [id number] Y Date: 05/04/2025 07:58 Dictated By: Justina Munson M.D. Signed By: 05/04/25 0946 DD/ 0758 TD/TT: District Agent: [facility] Radiology, Radiologist, MD - 05/04/2025 [place] [address] Ultrasound Report Signed Patient: FANNIE CONLEY MR#: [id number] : 1995 Acct:[id number] Age/Sex: 29 / F ADM Date: 05/03/25 Loc: US Attending Dr: George Scherer Ordering Physician: George Scherer Date of Service: 05/03/25 Procedure(s): US OB BPP w non-stress Accession Number(s): [id number] cc: George Scherer; Cain Donaldson D.O. The [place] [id number] Patient Name: FANNIE CONLEY MRN: [facility]:[id number] date: 1995 Sex: F Assigned Patient Location: US Current Patient Location: Accession/Order Number: [id number] Exam Date: 05/04/2025 07:57 Report Date: 05/04/2025 [...] Munson M.D. 05/04/2025 7:58 AM Dictation Location: [place] [address] Electronically authenticated by: [id number] Y Date: 05/04/2025 07:58 Dictated By: Justina Munson M.D. Signed By: 05/04/25 0946 DD/ 0758 TD/TT: District Agent: [facility] Radiology Study observation (narrative) [facility] OB BPP W NON-STRESS Ordered By: Radiologist Radiology on 05-04-2025 [facility] Work Phone: Urinalysis macro (dipstick) panel (U)on 05-03-2025 Bilirubin, UA Negative Negative - 4(70) +++ mg/dL [facility] Blood, UA Positive Negative - 50 Warren/mcL [facility] Comment on above: small Clarity, UA Clear [facility] Color, UA Yellow [facility] Glucose, UA Negative Negative - 2000(110) ++++ mg/dL [facility] Interpretation and review of laboratory results Abnormal [facility] Ketones, UA Negative Negative - 160(16) ++++ mg/dL [facility] Leukocytes, UA Positive Negative - 500+++ Malick/mcL [facility] Comment on above: small Nitrite, UA Negative Negative - Positive [facility] pH, UA 7 5 - 9 [facility] Protein, UA Negative Negative - 1999(20) ++++ mg/dL [facility] Spec Grav, UA 1.015 1 - 1.03 [facility] Urobilinogen, UA 0.2 0.2 - 12 mg/dL [facility] US OB BPP W NON-STRESS on 04-27-2025 [place] [address] Ultrasound Report Signed Patient: FANNIE CONLEY MR#: [id number] : 1995 Acct:[id number] Age/Sex: 29 / F ADM Date: 04/26/25 Loc: Attending Dr: George Scherer Ordering Physician: George Scherer Date of Service: 04/26/25 Procedure(s): US OB BPP w non-stress Accession Number(s): [id number] cc: George Scherer; Cain Donaldson D.O. The [place] [id number] Patient Name: FANNIE CONLEY MRN: [facility]:[id number] date: 1995 Sex: F Assigned Patient Location: [facility] Current Patient Location: Accession/Order Number: [id number] Exam Date: 04/27/2025 08:06 Report Date: 04/27/2025 [...] Munson M.D. 04/27/2025 8:07 AM Dictation Location: [place] [address] Electronically authenticated by: [id number] Y Date: 04/27/2025 08:07 Dictated By: Justina Munson M.D. Signed By: 04/27/25 08 DD/ 08 TD/TT: District Agent: [facility] Radiology, Radiologist, MD - 04/27/2025 [place] [address] Ultrasound Report Signed Patient: FANNIE CONLEY MR#: [id number] : 1995 Acct:[id number] Age/Sex: 29 / F ADM Date: 04/26/25 Loc: US Attending Dr: George Scherer Ordering Physician: George Scherer Date of Service: 04/26/25 Procedure(s): US OB BPP w non-stress Accession Number(s): [id number] cc: George Scherer; Cain Donaldson D.O. The [place] [id number] Patient Name: FANNIE CONLEY MRN: [facility]:[id number] date: 1995 Sex: F Assigned Patient Location: [facility] Current Patient Location: Accession/Order Number: [id number] Exam Date: 04/27/2025 08:06 Report Date: 04/27/2025 [...] Munson M.D. 04/27/2025 8:07 AM Dictation Location: [place] [address] Electronically authenticated by: [id number] Y Date: 04/27/2025 08:07 Dictated By: Justina Munson M.D. Signed By: 04/27/2510 DD/ 6 TD/TT: District Agent: [facility] Radiology Study observation (narrative) [facility] US OB BPP W NON-STRESS Ordered By: Radiologist Radiology on 04-27-2025 [facility] Work Phone: US OB BPP W NON-STRESS on 04-19-2025 [place] [address] Ultrasound Report Signed Patient: FANNIE CONLEY MR#: [id number] : 1995 Acct:[id number] Age/Sex: 29 / F ADM Date: Loc: [facility] [address]: Cain Donaldson D.O. Ordering Physician: Cain Donaldson D.O. Date of Service: 04/19/25 Procedure(s): US OB BPP w non-stress Accession Number(s): [id number] cc: Cain Donaldson D.O. The [place] [id number] Patient Name: FANNIE CONLEY MRN: [facility]:[id number] date: 1995 Sex: F Assigned Patient Location: LAB Current Patient Location: Accession/Order Number: [id number] Exam Date: 04/19/2025 09:00 Report Date: 04/19/2025 [...] Munson M.D. 04/19/2025 9:04 AM Dictation Location: [place] [address] Electronically authenticated by: [id number] Y Date: 04/19/2025 09:04 Dictated By: Justina Munson M.D. Signed By: 04/19/25905 DD/ 3 TD/TT: District Agent: [facility] Radiology, Radiologist, - 04/19/2025 [place] [address] Ultrasound Report Signed Patient: FANNIE CONLEY MR#: [id number] : 1995 Acct:[id number] Age/Sex: 29 / F ADM Date: Loc: [facility] 254-[address]: Cain Donaldson D.O. Ordering Physician: Cain Donaldson D.O. Date of Service: 04/19/25 Procedure(s): US OB BPP w non-stress Accession Number(s): [id number] cc: Cain Donaldson D.O. The [address] [address] Patient Name: FANNIE CONLEY MRN: [facility]:[id number] date: 1995 Sex: F Assigned Patient Location: LAB Current Patient Location: Accession/Order Number: [id number] Exam Date: 04/19/2025 09:00 Report Date: 04/19/2025 [...] Munson M.D. 04/19/2025 9:04 AM Dictation Location: [place] [address] Electronically authenticated by: [id number] Y Date: 04/19/2025 09:04 Dictated By: Justina Munson M.D. Signed By: 04/19/25905 DD/ 3 TD/TT: District Agent: [facility] Radiology Study observation (narrative) [facility] US OB BPP W NON-STRESS Ordered By: Radiologist Radiology on 04-19-2025 [facility] Work Phone: US RENAL BIon 04-19-[address] [address] Ultrasound Report Signed Patient: FANNIE CONLEY MR#: [id number] : 1995 Acct:[id number] Age/Sex: 29 / F ADM Date: Loc: [facility] 254-[address]: Cain Donaldson D.O. Ordering Physician: Cain Donaldson D.O. Date of Service: 04/19/25 Procedure(s): US renal BI Accession Number(s): [id number] cc: Cain Donaldson D.O. The [place] [address] Patient Name: FANNIE CONLEY MRN: [facility]:[id number] date: 1995 Sex: F Assigned Patient Location: LAB Current Patient Location: Accession/Order Number: [id number] Exam Date: 04/19/2025 08:46 Report Date: 04/19/2025 [...] Munson M.D. 04/19/2025 8:49 AM Dictation Location: [place] [address] Electronically authenticated by: [id number] Y Date: 04/19/2025 08:49 Dictated By: Justina Munson M.D. Signed By: 04/19/25 0852 DD/ 0849 TD/TT: District Agent: [facility] Radiology, Radiologist, - 04/19/2025 [place] [address] Ultrasound Report Signed Patient: FANNIE CONLEY MR#: [id number] : 1995 Acct:[id number] Age/Sex: 29 / F ADM Date: Loc: [facility] 254- Attending Dr: Cain Donaldson D.O. Ordering Physician: Cain Donaldson D.O. Date of Service: 04/19/25 Procedure(s): US renal BI Accession Number(s): [id number] cc: Cain Donaldson D.O. [address] [address] Patient Name: FANNIE CONLEY MRN: [id number] date: 1995 Sex: F Assigned Patient Location: LAB Current Patient Location: Accession/Order Number: [id number] Exam Date: 04/19/2025 08:46 Report Date: 04/19/2025 [...] Munson M.D. 04/19/2025 8:49 AM Dictation Location: [place] [address] Electronically authenticated by: [id number] Y Date: 04/19/2025 08:49 Dictated By: Justina Munson M.D. Signed By: 04/19/25 0852 DD/ TD/TT: District Agent: [facility] Radiology Study observation (narrative) [facility] US RENAL BIOrdered By: Radio logist Radiology on 04-19-2025 [facility] Work Phone: TB TOTAL PROTEIN 24 HOUR UR INEon 04-18-2025 Interpretation and review of laboratory results Abnormal [facility] Protein (U) [Mass/Vol] 9.5 mg/dL NINF - 11.9 mg/dL [facility] TB TOTAL PROTEIN 24 HOUR URINE 285 High NINF [facility] TOTAL VOLUME 24 HOUR URINE 3000 mL/24hr [facility]A (CLEAN/CATCH) LIVESTOCK RANCH HAND/BHAVIN RO IF IND.on 04-18-2025 BILIRUBIN URINE Negative NEGATIVE [facility] BLOOD URINE MODERATE Abnormal NEGATIVE [facility] Clarity (U) CLEAR CLEAR [facility] Color (U) LT. YELLOW YELLOW [facility] GLUCOSE URINE UA Negative NEGATIVE mg/dL [facility] Interpretation and review of laboratory results Abnormal [facility] Ketones Ql (U) Negative NEGATIVE mg/dL [facility] Leukocyte esterase Test strip Ql (U) SMALL Abnormal NEGATIVE [facility] NITRITE URINE Negative NEGATIVE [facility] pH (U) 6.0 [pH] 5.0 - 9.0 [facility] PROTEIN URINE Negative NEG/TRACE mg/dL [facility] SPECIFIC GRAVITY URINE 1.020 1.005 - 1.025 [facility] URINE MICROSCOPIC INDICATED YES [facility] UROBILINOGEN URINE 0.2 EU/dL 0.2 - 1.0 EU/dL N [facility] Urinalysis macro (dipstick) panel (U)on 04-18-2025 Bilirubin, UA Negative Negative - 4(70) +++ mg/dL [facility] Blood, UA Negative Negative - 50 Warren/mcL [facility] Clarity, UA Clear [facility] Color, UA Yellow [facility] Glucose, UA Negative Negative - 1999(110) ++++ mg/dL [facility] Interpretation and review of laboratory results Normal [facility] Ketones, UA Negative Negative - 160(16) ++++ mg/dL [facility] Leukocytes, UA Positive Negative - 500+++ Malick/mcL [facility] Comment on above: small Nitrite, UA Negative Negative - Positive [facility] pH, UA 7 5 - 9 [facility] Protein, UA Negative Negative - 1999(20) ++++ mg/dL [facility] Spec Grav, UA 1.01 1 - 1.03 [facility] Urobilinogen, UA 0.2 0.2 - 12 mg/dL [facility] ALL BUNon 04-11-2025 Urea nitrogen [Mass/Vol] 11 mg/dL 7.0 - 18.0 mg/dL [facility] ALL CBC WITH AUTO DIFFon BASOPHILS ABSOLUTE AUTO 0 [facility] Basophils/100 WBC (Bld) 0.3 % 0.2 - 2.0 % [facility] Eosinophils/100 WBC (Bld) 1.5 % 0.9 - 7.0 % [facility] Erythrocyte distribution width (RBC) [Ratio] 13.4 % 11.0 - 15.0 % [facility] Hematocrit (Bld) [Volume fraction] 31.7 % Low 36.0 - 48.0 % [facility] Hemoglobin (Bld) [Mass/Vol] 11 g/dL Low 12.0 - 16.0 g/dL [facility] IMMATURE GRANULOCYTES ABS AUTO 0.06 High [facility] Immature granulocytes/100 WBC (Bld) 0.8 % High 0.0 - 0.5 % [facility] Interpretation and review of laboratory results Abnormal [facility] LYMPHOCYTES ABSOLUTE AUTO 1.5 [facility] Lymphocytes/100 WBC (Bld) 20.5 % 20.5 - 60.0 % [facility] MCH (RBC) [Entitic mass] 30.2 pg 26.7 - 34.0 pg [facility] MCHC (RBC) [Mass/Vol] 34.7 g/dL 29.9 - 35.2 g/dL [facility] MCV (RBC) [Entitic vol] 87.1 fL 81.0 - 99.0 fL [facility] MONOCYTES ABSOLUTE AUTO 0.6 [facility] Monocytes/100 WBC (Bld) 7.8 % 1.7 - 12.0 % [facility] NEUTROPHILS ABSOLUTE AUTO 5.1 [facility] Neutrophils/100 WBC (Bld) 69.1 % 43.0 - 75.0 % [facility] Platelet mean volume (Bld) [Entitic vol] 10.6 fL 9.5 - 13.5 fL [facility] TBH EO # 0.1 [facility] TBH PLT 193 [facility] TB RBC 3.64 Low [facility] TB WBC 7.3 [facility] ALL LDHon 04-11-2025 LDH [Catalytic activity/Vol] 153 U/L 81 - 234 U/L [facility] ALL URIC ACIDon 04-11-2025 Urate [Mass/Vol] 2.8 mg/dL 2.6 - 6.0 mg/dL [facility] 04-11-2025 AST [Catalytic activity/Vol] 11 U/L Low 15 - 37 U/L [facility] No Panel Informationon 04-11 Interpretation and review of laboratory results Abnormal [facility] CREATININEon 04-11-2025 Creatinine [Mass/Vol] 0.36 mg/dL Low 0.55 - 1.02 mg/dL [facility] GFR/1.73 sq M.predicted CKD-EPI (S/P/Bld) [Vol rate/Area] >60 >=60 mL/min/1.73m 2 [facility] EGFR-NON AF HAITIAN >60 >=60 mL/min/1.73m 2 [facility] US OB BPP W NON-STRESS on 04-11-2025 [place] [address] Ultrasound Report Signed Patient: FANNIE CONLEY MR#: [id number] : 1995 Acct:[id number] Age/Sex: 29 / F ADM Date: 04/11/25 Loc: US Attending Dr: George Scherer Ordering Physician: Cain Donaldson D.O. Date of Service: 04/11/25 Procedure(s): US OB BPP w non-stress Accession Number(s): [id number] cc: Cain Donaldson D.O. [place] [id number] Patient Name: FANNIE CONLEY MRN: [facility]:[id number] date: 1995 Sex: F Assigned Patient Location: [facility] Current Patient Location: Accession/Order Number: [id number] Exam Date: 04/11/2025 19:33 Report Date: 04/11/2025 [...] Steen M.D. 04/11/2025 7:34 PM Dictation Location[facility] Electronically authenticated by: [id number] Y Date: 04/11/2025 19:34 Dictated By: Zion Steen D.O. Signed By: 04/11/251935 DD/ 33 TD/TT: District Agent: [facility] Radiology, Radiologist, MD - 04/11/2025 [place] [address] Ultrasound Report Signed Patient: FANNIE CONLEY MR#: [id number] : 1995 Acct:[id number] Age/Sex: 29 / F ADM Date: 04/11/25 Loc: US Attending Dr: George Scherer Ordering Physician: Cain Donaldson D.O. Date of Service: 04/11/25 Procedure(s): US OB BPP w non-stress Accession Number(s): [id number] cc: Cain Donaldson D.O. The [place] [id number] Patient Name: FANNIE CONLEY MRN: [facility]:[id number] date: 1995 Sex: F Assigned Patient Location: [facility] Current Patient Location: Accession/Order Number: [id number] Exam Date: 04/11/2025 19:33 Report Date: 04/11/2025 [...] Steen M.D. 04/11/2025 7:34 PM Dictation Location: [place] [address] Electronically authenticated by: [id number] Y Date: 04/11/2025 19:34 Dictated By: Zion Steen D.O. Signed By: 04/11/251935 DD/ 33 TD/TT: District Agent: [facility] [employer] Radiology Study observation (narrative) [facility] US OB BPP W NON-STRESS Ordered By: Radiologist Radiology on 04-11-2025 [facility] [employer] Work Phone: US OB BPP W NON-STRESS on 04-05-2025 [place] [address] Ultrasound Report Signed Patient: FANNIE CONLEY MR#: [id number] : 1995 Acct:[id number] Age/Sex: 29 / F ADM Date: 04/05/25 Loc: [place] [address]: George Scherer Ordering Physician: Cain Donaldson D.O. Date of Service: 04/05/25 Procedure(s): US OB BPP w non-stress Accession Number(s): [id number] cc: Cain Donaldson D.O. The [place] [address] Patient Name: FANNIE CONLEY MRN: [id number] date: 1995 Sex: F Assigned Patient Location: [facility] Current Patient Location: [facility] Accession/Order Number: [id number] Exam Date: 04/05/2025 17:57 Report Date: 04/05/2025 [...] Steen M.D. 04/05/2025 5:58 PM Dictation Location: [place] [address] Electronically authenticated by: [id number] Y Date: 04/05/2025 17:58 Dictated By: Zion Steen D.O. Signed By: 04/05/25 180 DD/ 175 TD/TT: District Agent: [facility] Radiology, Radiologist, MD - 04/05/2025 [place] [address] Ultrasound Report Signed Patient: FANNIE CONLEY MR#: [id number] : 1995 Acct:[id number] Age/Sex: 29 / F ADM Date: 04/05/25 Loc: [place] [address]: George Scherer Ordering Physician: Cain Donaldson D.O. Date of Service: 04/05/25 Procedure(s): US OB BPP w non-stress Accession Number(s): [id number] cc: Cain Donaldson D.O. The [place] [address] Patient Name: FANNIE CONLEY MRN: [facility]:[id number] date: 1995 Sex: F Assigned Patient Location: [facility] Current Patient Location: [facility] Accession/Order Number: [id number] Exam Date: 04/05/2025 17:57 Report Date: 04/05/2025 [...] Steen M.D. 04/05/2025 5:58 PM Dictation Location: [place] [address] Electronically authenticated by: [id number] Y Date: 04/05/2025 17:58 Dictated By: Zion Steen D.O. Signed By: 04/05/254 DD/ 57 TD/TT: District Agent: [facility] Radiology Study observation (narrative) [facility] US OB BPP W NON-STRESS Ordered By: Radiologist Radiology on 04-05-2025 [facility] Work Phone: Urinalysis macro (dipstick) panel (U)on 03-03-2025 Bilirubin, UA Negative Negative - 4(70) +++ mg/dL [facility] Blood, UA Negative Negative - 50 Warren/mcL [facility] Clarity, UA Clear [facility] Color, UA Yellow [facility] Glucose, UA Negative Negative - 2000(110) ++++ mg/dL [facility] Interpretation and review of laboratory results Abnormal [facility] Ketones, UA Negative Negative - 160(16) ++++ mg/dL [facility] Leukocytes, UA Trace Negative - 500+++ Malick/mcL [facility] Nitrite, UA Negative Negative - Positive [facility] pH, UA 7 5 - 9 [facility] Protein, UA Negative Negative - 2000(20) ++++ mg/dL [facility] Spec Grav, UA 1.015 1 - 1.03 [facility] Urobilinogen, UA 0.2 0.2 - 12 mg/dL [facility] AFP, Maternalon 02-11-2025 Determined by Other Normal [facility] Comment on above: Performed By: #### A AFPM #### [facility] [address] [place] [address] Cartridge Loading Operator: Kenneth Krishna MD Due Date SEE NOTE [facility] Comment on above: Result Comment: Resu lts for Estimated Due Date: 06 24 25 Performed By: #### A AFPM #### [facility] [address] [place] [address] Cartridge Loading Operator: Kenneth Krishna MD Family History No [facility] Comment on above: Performed By: #### A AFPM #### [facility] [address] [place] [address] Cartridge Loading Operator: Kenneth Krishna MD Gestat Age (exact) 20 wks, 4 days [facility] Comment on above: Performed By: #### A AFPM #### [facility] [address] [place], [place] [id number] Cartridge Loading Operator: Kenneth Krishna MD Ins Req Matern Diab No [facility] Comment on above: Performed By: #### A AFPM #### [facility] [address] [place] [address] Cartridge Loading Operator: Kenneth Krishna MD Interpretation Screen Neg [facility] Comment on above: Result Comment: (NOT E) INTERPRETATION: SCREEN NEGATIVE for open spina bifida Neural Tube Defects (NTD) Negative Pre-Test Post-Test Cutoff Neural Tube Defects Risks 1:1030 < 1:79149 1:250 Comments: The risk of an open neural tube defect is less than the screening cut-off. This test was developed and its performance characteristics determined by [employer] [facility]. It has not been cleared or approved by the [place] Food and Drug Administration. This test was performed in a CLIA certified laboratory and is intended for clinical purposes. Performed By: #### A AFPM #### [facility] [address] [place] [address] Cartridge Loading Operator: Kenneth Krishna MD [age] [facility] Comment on above: Performed By: #### A AFPM #### [facility] [address] [place] [address] Cartridge Loading Operator: Kenneth Krishna MD Maternal Race Nonblack [facility] Comment on above: Performed By: #### A AFPM #### [facility] [address] [place] [address] Cartridge Loading Operator: Kenneth rKishna MD Maternal Weight 231.0 lbs. [facility] Comment on above: Performed By: #### A AFPM #### [facility] [address] [place] [address] Cartridge Loading Operator: Kenneth Krishna MD MoM for AFP 0.85 [facility] Comment on above: Performed By: #### A AFPM #### [facility] [address] [place] [address] Cartridge Loading Operator: Kenneth Krishna MD Number of Fetuses [place] Normal [facility] Comment on above: Performed By: #### A AFPM #### [facility] [address] [place] [address] Cartridge Loading Operator: Kenneth Krishna MD Patient's AFP 41 ng/mL [facility] Comment on above: Performed By: #### A AFPM #### [facility] [address] [place] [address] Cartridge Loading Operator: Kenneth Krishna MD Smoking No [facility] Comment on above: Performed By: #### A AFPM #### [facility] [address] [place] [address] Cartridge Loading Operator: Kenneth Krishna MD Specimen See Note [facility] Comment on above: Result Comment: (NOT E) Initial sample Performed By: [facility] [address] [place] [address] Strip Cutting Machine Operator: Jose Joseph MD, PhD CLIA Number: [id number] Performed By: #### A AFPM #### [facility] [address] [place] [address] Cartridge Loading Operator: Kenneth Krishna MD Urinalysis macro (dipstick) panel (U)on 01-20-2025 Bilirubin, UA Negative Negative - 4(70) +++ mg/dL [facility] Blood, UA Negative Negative - 50 Warren/mcL [facility] Comment on above: trace Clarity, UA Clear [facility] Color, UA Renita [facility] Glucose, UA Negative Negative - 2000(110) ++++ mg/dL [facility] Interpretation and review of laboratory results Abnormal [facility] Ketones, UA Positive Negative - 160(16) ++++ mg/dL [facility] Leukocytes, UA Trace Negative - 500+++ Malick/mcL [facility] Nitrite, UA Negative Negative - Positive [facility] pH, UA 7 5 - 9 [facility] Protein, UA Trace Negative - 2000(20) ++++ mg/dL [facility] Spec Grav, UA 1.02 1 - 1.03 [facility] Urobilinogen, UA 1.0 0.2 - 12 mg/dL [facility] Cult,Urineon 12-24-2024 Cult,Urine Specimen Description .URINE Culture NO GROWTH Report Status FINAL 12/24/2024 Normal [facility] Comment on above: Performed By: #### U RC #### [address] [id number] Cartridge Loading Operator: Jason Rodriguez MD [facility] [address] [place], [place] [id number] Cartridge Loading Operator: Sherwin Elam MD HIV Ag/Abon 12-24-2024 HIV Ag/Ab Non-Reactive Normal NR [facility] Comment on above: Result Comment: No l aboratory evidence of HIV infection. If acute HIV infection is suspected, consider testing for HIV-1 RNA. Performed By: #### R UBI, HBS, TREP, AHCV, HIVCMB, GLYHGB #### [address] [id number] Cartridge Loading Operator: Jason Rodriguez MD #### CDP, SIDNEY #### [facility] [address] [place], [place] [id number] Cartridge Loading Operator: Sherwin Elam MD Hemoglobin A1Con 12-24-2024 Glucose [Mass/Vol] 94 mg/dL [facility] Comment on above: Result Comment: The ADA and AACC recommend providing the estimated average glucose result to permit better patient understanding of their HBA1c result. Performed By: #### R UBI, HBS, TREP, AHCV, HIVCMB, GLYHGB #### [facility] [address] [place] [id number] Cartridge Loading Operator: Jason Rodriguez MD #### CDP, SIDNEY #### [facility] [address] [place] [address] Cartridge Loading Operator: Sherwin Elam MD HbA1c (Bld) [Mass fraction] 4.9 % Normal 4.0-6.0 [facility] Comment on above: Performed By: #### R UBI, HBS, TREP, AHCV, HIVCMB, GLYHGB #### [address] [id number] Cartridge Loading Operator: Jason Rodriguez MD #### CDP, SIDNEY #### [facility] [address] [place] [address] Cartridge Loading Operator: Sherwin Elam MD Hep B Surf Agon 12-243 Hep B Surf Ag Non-Reactive Normal NR [facility] Comment on above: Performed By: #### R UBI, HBS, TREP, AHCV, HIVCMB, GLYHGB #### [address] [id number] Cartridge Loading Operator: Jason Rodriguze MD #### CDP, SIDNEY #### [facility] [address] [place] [address] Cartridge Loading Operator: Sherwin Elam MD Hep C Abon 8 Hep C Ab Non-Reactive Normal NR [facility] Comment on above: Result Comment: The [...] UBI, HBS, TREP, AHCV, HIVCMB, GLYHGB #### [address] [id number] Cartridge Loading Operator: Jason Rodriguez MD #### CDP, SIDNEY #### [facility] [address] [place] [address] Cartridge Loading Operator: Sherwin Elam MD Rubella Ab, IgGon 12-24-2024 Rubella Ab, IgG 78.0 IU/mL Normal [facility] Comment on above: Result Comment: <10 NON REACTIVE Negative for Anti-Rubella IgG >=10 REACTIVE Positive for Anti Rubella IgG The presence of IgG antibody to Rubella virus is an indication of previous exposure either by prior infection or vaccination. Performed By: #### R UBI, HBS, TREP, AHCV, HIVCMB, GLYHGB #### [address] [id number] Cartridge Loading Operator: Jason Rodriguez MD #### KARRI, SIDNEY #### [facility] [address] [place] [address] Cartridge Loading Operator: Sherwin Elam MD T.pallidum Ab Screenon 12-24 T.pallidum Ab Screen Non-Reactive Normal [facility] Comment on above: Result Comment: T. pallidum antibodies are not detected. There is no serological evidence of infection with T. pallidum (early primary syphilis cannot be excluded). Retest in 2-4 weeks if syphilis is clinically suspect. Performed By: #### R UBI, HBS, TREP, AHCV, HIVCMB, GLYHGB #### [address] [id number] Cartridge Loading Operator: Jason Rodriguez MD #### KARRI, SIDNEY #### [facility] [address] [place] [address] Cartridge Loading Operator: Sherwin Elam MD CBC with Auto Differentialon 12-23-2024 Basophils (Bld) [#/Vol] 0.02 10*3/uL [facility] Basophils/100 WBC (Bld) 0 % 0 - 2 % [facility] Eosinophils (Bld) [#/Vol] 0.13 10*3/uL [facility] Eosinophils/100 WBC (Bld) 2 % 0 - 5 % [facility] Erythrocyte distribution width (RBC) [Ratio] 12.5 % 12.1 - 15.2 % [facility] Hematocrit (Bld) [Volume fraction] 35.9 % Low 36.0 - 46.0 % [facility] Hemoglobin (Bld) [Mass/Vol] 12.5 g/dL 12.0 - 16.0 g/dL [facility] Immature granulocytes (Bld) [#/Vol] 0.02 10*3/uL [facility] Immature granulocytes/100 WBC (Bld) 0 % 0 - 5 % [facility] Interpretation and review of laboratory results Abnormal [facility] Lymphocytes/100 WBC (Bld) 21 % 15 - 40 % [facility] Lymphocytes/100 WBC (Bld) 1.55 % [facility] MCH (RBC) [Entitic mass] 29.6 pg 26.0 - 34.0 pg [facility] MCHC (RBC) [Mass/Vol] 34.8 g/dL 31.0 - 37.0 g/dL [facility] MCV (RBC) [Entitic vol] 84.9 fL 80.0 - 100.0 fL [facility] Monocytes/100 WBC (Bld) 9 % High 4 - 8 % [facility] Monocytes/100 WBC (Bld) 0.65 % [facility] Neutrophils/100 WBC (Bld) 68 % 47 - 75 % [facility] Platelet mean volume (Bld) [Entitic vol] 9.9 fL 6.0 - 12.0 fL [facility] Platelets (Bld) [#/Vol] 238 10*3/uL [facility] RBC (Bld) [#/Vol] 4.23 10*6/uL 4.00 - 5.2 0 m/uL [facility] Segmented neutrophils/100 WBC (Bld) 4.87 % [facility] WBC other (Bld) [#/Vol] 7.2 [facility] CBC with Diffon 12-23-2024 Abs. Basophil 0.02 k/uL Normal 0.00-0.20 [facility] Comment on above: Performed By: #### R UBI, HBS, TREP, AHCV, HIVCMB, GLYHGB #### [address] [address] Cartridge Loading Operator: Jason Rodriguez MD #### CDP, SIDNEY #### [facility] [address] [place] [id number] ( Cartridge Loading Operator: Sherwin Elam MD Abs.Imm.Granulocyte 0.02 k/uL Normal 0.00-0.30 [facility] Comment on above: Performed By: #### R UBI, HBS, TREP, AHCV, HIVCMB, GLYHGB #### [place] [address] Cartridge Loading Operator: Jason Rodriguez MD #### KARRI, SIDNEY #### [facility] [address] [place] [address] Cartridge Loading Operator: Sherwin Elam MD Abs.Neutrophil (Seg) 4.87 k/uL Normal 2.5-7.0 [facility] Comment on above: Performed By: #### R UBI, HBS, TREP, AHCV, HIVCMB, GLYHGB #### [place] [id number] Cartridge Loading Operator: Jason Rodriguez MD #### KARRI, SIDNEY #### [facility] [address] [id number] Cartridge Loading Operator: Sherwin Elam MD Basophils/100 WBC (Bld) 0 % Normal 0-2 [facility] Comment on above: Performed By: #### R UBI, HBS, TREP, AHCV, HIVCMB, GLYHGB #### [place] [id number] Cartridge Loading Operator: Jason Rodriguez MD #### CDP, SIDNEY #### [facility] [address] [id number] Cartridge Loading Operator: Sherwin Elam MD Eosinophils (Bld) [#/Vol] 0.13 10*3/uL Normal 0.00-0.40 [facility] Comment on above: Performed By: #### R UBI, HBS, TREP, AHCV, HIVCMB, GLYHGB #### [address] [phone] Cartridge Loading Operator: Jason Rodriguez MD #### KARRI SIDNEY #### [facility] [address] [phone] Cartridge Loading Operator: Sherwin Elam MD Eosinophils/100 WBC (Bld) 2 % Normal 0-5 [facility] Comment on above: Performed By: #### R UBI, HBS, TREP, AHCV, HIVCMB, GLYHGB #### [place] [phone] Cartridge Loading Operator: Jason Rodriguez MD #### SIDNEY ZENG #### [facility] [address] [place] [address] Cartridge Loading Operator: Sherwin Elam MD Erythrocyte distribution width (RBC) [Ratio] 12.5 % Normal 12.1-15.2 [facility] Comment on above: Performed By: #### R UBI, HBS, TREP, AHCV, HIVCMB, GLYHGB #### [address] [phone] Cartridge Loading Operator: Jason Rodriguez MD #### KARRI SIDNEY #### [facility] [address] [place] [phone] Cartridge Loading Operator: Sherwin Elam MD Hematocrit (Bld) [Volume fraction] 35.9 % Low 36.0-46.0 [facility] Comment on above: Performed By: #### R UBI, HBS, TREP, AHCV, HIVCMB, GLYHGB #### [address] [phone] Cartridge Loading Operator: Jason Rodriguez MD #### CDP, SIDNEY #### [facility] [address] [place], [place] [phone] Cartridge Loading Operator: Sherwin Elam MD Hemoglobin (Bld) [Mass/Vol] 12.5 g/dL Normal 12.0-16.0 [facility] Comment on above: Performed By: #### R UBI, HBS, TREP, AHCV, HIVCMB, GLYHGB #### [address] [id number] Cartridge Loading Operator: Jason Rodriguez MD #### KARRI, SIDNEY #### [facility] [address] [place] [address] Cartridge Loading Operator: Sherwin Elam MD Immature granulocytes/100 WBC (Bld) 0 % Normal 0-5 [facility] Comment on above: Performed By: #### R UBI, HBS, TREP, AHCV, HIVCMB, GLYHGB #### [address] [phone] Cartridge Loading Operator: Jason Rodriguez MD #### KARRI, SIDNEY #### [facility] [address] [place] [phone] Cartridge Loading Operator: Sherwin Elam MD Lymphocytes (Bld) [#/Vol] 1.55 10*3/uL Normal 1.00-4.80 [facility] Comment on above: Performed By: #### R UBI, HBS, TREP, AHCV, HIVCMB, GLYHGB #### [address] [phone] Cartridge Loading Operator: Jason Rodriguez MD #### CDP, SIDNEY #### [facility] [address] [place] [phone] Cartridge Loading Operator: Sherwin Elam MD Lymphocytes/100 WBC (Bld) 21 % Normal 15-40 [facility] Comment on above: Performed By: #### R UBI, HBS, TREP, AHCV, HIVCMB, GLYHGB #### [address] [id number] Cartridge Loading Operator: Jason Rodriguez MD #### KARRI, SIDNEY #### [facility] [address] [place], [place] [phone] Cartridge Loading Operator: Sherwin Elam MD MCH (RBC) [Entitic mass] 29.6 pg Normal 26.0-34.0 [facility] Comment on above: Performed By: #### R UBI, HBS, TREP, AHCV, HIVCMB, GLYHGB #### [address] [phone] Cartridge Loading Operator: Jason Rodriguez MD #### KARRI, SIDNEY #### [facility] [address] [place], [place] [phone] Cartridge Loading Operator: Sherwin Elam MD MCHC (RBC) [Mass/Vol] 34.8 g/dL Normal 31.0-37.0 [facility] Comment on above: Performed By: #### R UBI, HBS, TREP, AHCV, HIVCMB, GLYHGB #### [address] [id number] Cartridge Loading Operator: Jason Rodriguez MD #### KARRI, SIDNEY #### [facility] [address] [place], [place] [phone] Cartridge Loading Operator: Sherwin Elam MD MCV (RBC) [Entitic vol] 84.9 fL Normal 80.0-100.0 [facility] Comment on above: Performed By: #### R UBI, HBS, TREP, AHCV, HIVCMB, GLYHGB #### [address] [phone] Cartridge Loading Operator: Jason Rodriguez MD #### CDP, SIDNEY #### [facility] [address] [place], [place] 2646390 Cartridge Loading Operator: Sherwin Elam MD Monocytes (Bld) [#/Vol] 0.65 10*3/uL Normal 0.00-1.00 [facility] Comment on above: Performed By: #### R UBI, HBS, TREP, AHCV, HIVCMB, GLYHGB #### [address] [phone] Cartridge Loading Operator: Jason Rodriguez MD #### KARRI, SIDNEY #### [facility] [address] [place], [place] [phone] Cartridge Loading Operator: Sherwin Elam MD Monocytes/100 WBC (Bld) 9 % High 4-8 [facility] Comment on above: Performed By: #### R UBI, HBS, TREP, AHCV, HIVCMB, GLYHGB #### [address] [phone] Cartridge Loading Operator: Jason Rodriguez MD #### CDP, SIDNEY #### [facility] [address] [place], [place] [phone] Cartridge Loading Operator: Sherwin Elam MD Neutrophil (Seg) 68 % Normal 47-75 [facility] Comment on above: Performed By: #### R UBI, HBS, TREP, AHCV, HIVCMB, GLYHGB #### [address] [id number] Cartridge Loading Operator: Jason Rodriguez MD #### CDP, SIDNEY #### [facility] [address] [place], [place] [phone] Cartridge Loading Operator: Sherwin Elam MD Platelet mean volume (Bld) [Entitic vol] 9.9 fL Normal 6.0-12.0 [facility] Comment on above: Performed By: #### R UBI, HBS, TREP, AHCV, HIVCMB, GLYHGB #### [facility] [address] [place] [address] Cartridge Loading Operator: Jason Rodriguez MD #### KARRI, SIDNEY #### [facility] [address] [place], [place] [phone] Cartridge Loading Operator: Sherwin Elam MD Platelets (Bld) [#/Vol] 238 10*3/uL Normal 140-450 [facility] Comment on above: Performed By: #### R UBI, HBS, TREP, AHCV, HIVCMB, GLYHGB #### [address] [address] Cartridge Loading Operator: Jason Rodriguez MD #### KARRI, SIDNEY #### [facility] [address] [place] [address] Cartridge Loading Operator: Sherwin Elam MD RBC (Bld) [#/Vol] 4.23 10*6/uL Normal 4.00-5.20 [facility] Comment on above: Performed By: #### R UBI, HBS, TREP, AHCV, HIVCMB, GLYHGB #### [address] [address] Cartridge Loading Operator: Jason Rodriguez MD #### KARRI, SIDNEY #### [facility] [address] [place] [address] Cartridge Loading Operator: Sherwin Elam MD WBC (Bld) [#/Vol] 7.2 10*3/uL Normal 3.5-11.0 [facility] Comment on above: Performed By: #### R UBI, HBS, TREP, AHCV, HIVCMB, GLYHGB #### [address] [address] Cartridge Loading Operator: Jason Rodriguez MD #### CDP, SIDNEY #### [facility] [address] [place], [place] [phone] Cartridge Loading Operator: Sherwin Elam MD Drug Scr, Abuse, Uron 2024 Amphetamine(s),Ur Negative Normal NEG [facility] Comment on above: Result Comment: Cuto ff: 1000 ng/mL Performed By: #### R UBI, HBS, TREP, AHCV, HIVCMB, GLYHGB #### [address] [phone] Cartridge Loading Operator: Jason Rodriguez MD #### CDP, SIDNEY #### [facility] [address] [place], [place] [phone] Cartridge Loading Operator: Sherwin Elam MD Barbiturate(s),Ur Negative Normal NEG [facility] Comment on above: Result Comment: Cuto ff: 200 ng/ml Performed By: #### R UBI, HBS, TREP, AHCV, HIVCMB, GLYHGB #### [address] [address] Cartridge Loading Operator: Jason Rodriguez MD #### CDP, SIDNEY #### [facility] [address] [place], [place] [phone] Cartridge Loading Operator: Sherwin Elam MD Benzodiazepine(s) Negative Normal NEG [facility] Comment on above: Result Comment: Cuto ff: 200 ng/ml Performed By: #### R UBI, HBS, TREP, AHCV, HIVCMB, GLYHGB #### [address] [address] Cartridge Loading Operator: Jason Rodriguez MD #### CDP, SIDNEY #### [facility] [address] [place], [place] [phone] Cartridge Loading Operator: Sherwin Elam MD Cannabinoid(s),Ur Negative Normal NEG [facility] Comment on above: Result Comment: Cuto ff: 50 ng/ml Performed By: #### R UBI, HBS, TREP, AHCV, HIVCMB, GLYHGB #### [address] [address] Cartridge Loading Operator: Jason Rodriguez MD #### CDP, SIDNEY #### [facility] [address] [place] [address] Cartridge Loading Operator: Sherwin Elam MD Fentanyl, Urine Negative Normal NEG [facility] Comment on above: Result Comment: Cuto ff: 5 ng/ml Performed By: #### R UBI, HBS, TREP, AHCV, HIVCMB, GLYHGB #### [address] [address] Cartridge Loading Operator: Jason Rodriguez MD #### CDP, SIDNEY #### [facility] [address] [place], [place] [phone] Cartridge Loading Operator: Sherwin Elam MD Methadone Ql (U) Negative Normal NEG [facility] Comment on above: Result Comment: Cuto ff: 300 ng/ml Performed By: #### R UBI, HBS, TREP, AHCV, HIVCMB, GLYHGB #### [address] [address] Cartridge Loading Operator: Jason Rodriguez MD #### CDP, SIDNEY #### [facility] [address] [place] [address] Cartridge Loading Operator: Sherwin Elam MD Opiate(s), Ur Negative Normal NEG [facility] Comment on above: Result Comment: Cuto ff: 300 ng/ml Performed By: #### R UBI, HBS, TREP, AHCV, HIVCMB, GLYHGB #### [address] [address] Cartridge Loading Operator: Jason Rodriguez MD #### CDP, SIDNEY #### [facility] [address] [place], [place] [phone] Cartridge Loading Operator: Sherwin Elam MD Oxycodone, Urine Negative Normal NEG [facility] Comment on above: Result Comment: Cuto ff: 100 ng/ml Performed By: #### R UBI, HBS, TREP, AHCV, HIVCMB, GLYHGB #### [address] [phone] Cartridge Loading Operator: Jason Rodriguez MD #### CDP, SIDNEY #### [facility] [address] [place], [place] [phone] Cartridge Loading Operator: Sherwin Elam MD Phencyclidine, Ur Negative Normal NEG [facility] Comment on above: Result Comment: Cuto ff: 25 ng/ml Performed By: #### R UBI, HBS, TREP, AHCV, HIVCMB, GLYHGB #### [address] [phone] Cartridge Loading Operator: Jason Rodriguez MD #### CDP, SIDNEY #### [facility] [address] [place], [place] 1569190 Cartridge Loading Operator: Sherwin Elam MD Interpretive Info This method is a screening test to detect only these drug classes as part of a Normal [facility] Comment on above: Result Comment: medi luis workup. Confirmatory testing by another method should be ordered if clinically indicated. Performed By: #### R UBI, HBS, TREP, AHCV, HIVCMB, GLYHGB #### [address] [phone] Cartridge Loading Operator: Jason Rodriguez MD #### CDP, SIDNEY #### [facility] [address] [place], [place] [phone] Cartridge Loading Operator: Sherwin Elam MD Drug Scr, Abuse, UrOrdered B y: Janay Vázquez on 12-23-2024 Cocaine Metabolite Negative Normal NEG [facility] Comment on above: Result Comment: Cuto ff: 300 ng/ml Performed By: #### R UBI, HBS, TREP, AHCV, HIVCMB, GLYHGB #### [facility] [address] [place] [address] Cartridge Loading Operator: Jason Rodriguez MD #### CDP, SIDNEY #### [facility] [address] [place] [address] Cartridge Loading Operator: Sherwin Elam MD Drug Screen, UrineOrdered By : Janay Vázquez on 12-23-2024 Amphetamine/Methamph etamine Negative [facility] Barbiturates Negative [facility] Benzodiazepines Negative [facility] Ecstasy Negative [facility] Methadone Negative [facility] Opiates Negative [facility] Oxycodone Negative [facility] Phencyclidine Negative [facility] Thc Marijuana, Urine Negative [facility] HIV 1&2 AB/AG Screen (P24 AG )on 12-23-2024 HIV 1&2 AB/AG Non-Reactive [facility] Hemoglobin A1con 12-23-2024 HbA1c (Bld) [Mass fraction] 4.9 % 4.0 - 6.0 % [facility] Hepatitis B surface antigeno n 12-23-2024 Hepatitis B Surface Antigen Non-Reactive [facility] Hepatitis C(HCV) Ab w/ Refle x to PCRon 12-23-2024 HCV Ab Ql (S) Non-Reactive [facility] MHPT CBC WITH DIFFon 025 Basophils/100 WBC (Bld) 0 % 0 - 2 % [facility] Eosinophils/100 WBC (Bld) 2 % 0 - 5 % [facility] Erythrocyte distribution width (RBC) [Ratio] 12.5 % 12.1 - 15.2 % [facility] Hematocrit (Bld) [Volume fraction] 35.9 % Low 36.0 - 46.0 % [facility] Hemoglobin (Bld) [Mass/Vol] 12.5 g/dL 12.0 - 16.0 g/dL [facility] Immature granulocytes/100 WBC (Bld) 0 % 0 - 5 % [facility] Interpretation and review of laboratory results Abnormal [facility] Lymphocytes/100 WBC (Bld) 21 % 15 - 40 % [facility] MCH (RBC) [Entitic mass] 29.6 pg 26.0 - 34.0 pg [facility] MCHC (RBC) [Mass/Vol] 34.8 g/dL 31.0 - 37.0 g/dL [facility] MCV (RBC) [Entitic vol] 84.9 fL 80.0 - 100.0 fL [facility] MHPT ABS. BASOPHIL 0.02 [facility] ABS. EOSINOPHIL 0.13 [facility] ABS. LYMPH 1.55 [facility]. MONOCYTE 0.65 [facility] ABS.IMM.GRANULOCYTE 0.02 [facility] ABS.NEUTROPHIL (SEG) 4.87 [facility] PLATELET COUNT 238 [facility]PT WBC COUNT 7.2 [facility] Monocytes/100 WBC (Bld) 9 % High 4 - 8 % [facility] Platelet mean volume (Bld) [Entitic vol] 9.9 fL 6.0 - 12.0 fL [facility] RBC (Bld) [#/Vol] 4.23 10*6/uL 4.00 - 5.2 0 m/uL [facility] Segmented neutrophils/100 WBC (Bld) 68 % 47 - 75 % [facility] Original Ordering Provider: [facility], ABUSE, URon 0 12-23-2024 PT AMPHETAMINE(S),UR Negative NEG [facility] Comment on above: Cutoff: 1000 ng/mL MHPT BARBITURATE(S),UR Negative NEG [facility] Comment on above: Cutoff: 200 ng/ml MHPT BENZODIAZEPINE(S) Negative NEG [facility] Comment on above: Cutoff: 200 ng/ml MH[facility] CANNABINOID(S),UR Negative NEG [facility] Comment on above: Cutoff: 50 ng/ml [facility] COCAINE METABOLITE Negative NEG [facility] Comment on above: Cutoff: 300 ng/ml [facility] FENTANYL, URINE Negative NEG [facility] Comment on above: Cutoff: 5 ng/ml MHPT INTERPRETIVE INFO This method is a screening test to detect only these drug classes as part of a [facility] Comment on above: medical workup. Conf irmatory testing by another method should be ordered if clinically indicated. [facility] METHADONE Negative NEG [facility] Comment on above: Cutoff: 300 ng/ml MHPT OPIATE(S), UR Negative NEG [facility] Comment on above: Cutoff: 300 ng/ml MHPT OXYCODONE, URINE Negative NEG [facility] Comment on above: Cutoff: 100 ng/ml MHPT PHENCYCLIDINE, UR Negative NEG [facility] Comment on above: Cutoff: 25 ng/ml Original Ordering Provider: CAIN ADAN [facility] No Panel Informationon 12-23 [facility] TYPE AND SCREENon 0 12-23-2024 ABO and Rh group Nom (Bld) Blood group B Rh(D) positive [facility] Blood group antibodies identified Nom Negative [facility] Type + Scrnon 12-23 Type + Scrn Negative Normal [facility] Comment on above: Performed By: #### R UBI, HBS, TREP, AHCV, HIVCMB, GLYHGB #### [facility] [address], [place] [phone] Cartridge Loading Operator: Jason Rodriguez MD #### CDP, SIDNEY #### [facility] [address] [place] [address] Cartridge Loading Operator: Sherwin Elam MD Type and screenon 12-23-2024 Abo/Rh(D) Positive [facility] Urinalysis macro (dipstick) panel (U)on 12-23-2024 Bilirubin, UA Negative Negative - 4(70) +++ mg/dL [facility] Blood, UA Negative Negative - 50 Warren/mcL [facility] Clarity, UA Clear [facility] Color, UA Yellow [facility] Glucose, UA Negative Negative - 1999(110) ++++ mg/dL [facility] Interpretation and review of laboratory results Normal [facility] Ketones, UA Negative Negative - 160(16) ++++ mg/dL [facility] Leukocytes, UA Negative Negative - 500+++ Malick/mcL [facility] Nitrite, UA Negative Negative - Positive [facility] pH, UA 7 5 - 9 [facility] Protein, UA Negative Negative - 1999(20) ++++ mg/dL [facility] Spec Grav, UA 1.02 1 - 1.03 [facility] Urobilinogen, UA 1.0 0.2 - 12 mg/dL [facility] Urine Drug Screenon 12-23-19 25 Amphetamines Ql (U) Negative NEGATIVE [employer] Comment on above: Cutoff: 1000 ng/mL Barbiturates Screen Ql (U) Negative NEGATIVE [employer] [facility] Comment on above: Cutoff: 200 ng/ml Benzodiazepines Ql (U) Negative NEGATIVE [employer] [facility] Comment on above: Cutoff: 200 ng/ml Cannabinoids Screen Ql (U) Negative NEGATIVE [employer] [facility] Comment on above: Cutoff: 50 ng/ml Cocaine Ql (U) Negative NEGATIVE [place] [facility] Comment on above: Cutoff: 300 ng/ml fentaNYL Ql (U) Negative NEGATIVE [employer] Comment on above: Cutoff: 5 ng/ml Methadone Ql (U) Negative NEGATIVE [employer] [facility] [employer] Comment on above: Cutoff: 300 ng/ml Opiates Screen Ql (U) Negative NEGATIVE [employer] Comment on above: Cutoff: 300 ng/ml oxyCODONE Ql (U) Negative NEGATIVE Dr[employer] Comment on above: Cutoff: 100 ng/ml Phencyclidine Ql (U) Negative NEGATIVE [employer] Comment on above: Cutoff: 25 ng/ml Test Information This method is a screening test to detect only these drug classes as part of a medical workup. Confirmatory testing by another method should be ordered if clinically indicated. [employer] HCG ( test) Ql (U)o n 11-25-2024 Interpretation and review of laboratory results Abnormal [facility] Preg Test, Ur Positive Negative [facility] OB TRANSVAGINALon 025 OB TRANSVAGINAL TITLE OF [...] UA Negative Negative - 4(70) +++ mg/dL [facility] Blood, UA Negative Negative - 50 Warren/mcL [facility] Clarity, UA Clear [facility] Color, UA Yellow [facility] Glucose, UA Negative Negative - 2000(110) ++++ mg/dL [facility] Interpretation and review of laboratory results Normal [facility] Ketones, UA Negative Negative - 160(16) ++++ mg/dL [facility] Leukocytes, UA Negative Negative - 500+++ Malick/mcL [facility] Nitrite, UA Negative Negative - Positive [facility] pH, UA 6 5 - 9 [facility] Protein, UA Negative Negative - 2000(20) ++++ mg/dL [facility] Spec Grav, UA 1.02 1 - 1.03 [facility] Urobilinogen, UA 0.2 0.2 - 12 mg/dL [facility] HCG, Quanton 10-20-2024 HCG, Quant 812.4 mIU/mL High <5 [facility] Comment on above: Result Comment: Non-preg premeno <=5 Postmeno <=8 Male <=3 If HCG results do not concur with clinical observations, additional testing to confirm results is recommended. Performed By: #### R UBI, HBS, TREP, AHCV, HIVCMB, GLYHGB #### [facility] [address] [place] [address] Cartridge Loading Operator: Jason Rodriguez MD #### CDP, SIDNEY #### [facility] [address] [place] [address] Cartridge Loading Operator: Sherwin Elam MD HCG, Quantitative, on 10-20-2024 HCG.beta subunit Qn 812.4 m[IU]/mL High NINF B on [facility] Comment on above: Non-preg premeno <=5 Postmeno <=8 Male <=3 If HCG results do not concur with clinical observations, additional testing to confirm results is recommended. Interpretation and review of laboratory results Abnormal [facility] HCG, Quanton 10-18-2024 HCG, Quant 293.1 mIU/mL High <5 [facility] Comment on above: Result Comment: Non-preg premeno <=5 Postmeno <=8 Male <=3 If HCG results do not concur with clinical observations, additional testing to confirm results is recommended. Performed By: #### R UBI, HBS, TREP, AHCV, HIVCMB, GLYHGB #### [facility] [address], [place] [id number] Cartridge Loading Operator: Jason Rodriguez MD #### CDP, SIDNEY #### [facility] [address] [place] [address] Cartridge Loading Operator: Sherwin Elam MD HCG, Quantitative, on 10-18-2024 HCG.beta subunit Qn 293.1 m[IU]/mL High NINF B on [facility] Comment on above: Non-preg premeno <=5 Postmeno <=8 Male <=3 If HCG results do not concur with clinical observations, additional testing to confirm results is recommended. Interpretation and review of laboratory results Abnormal [facility] XR knee RT 4V*on 04-06-2024 XR knee RT 4V* [facility] Main [address] [address] XRay Report Signed Patient: Fannie Mckeon MR#: [id number] : 1995 Acct:[id number] Age/Sex: 28 / F ADM Date: 04/06/24 Loc: [id number] Room: Type: [facility] Attending Dr: Renita MONTOYA Copies to: UMM Soliz FNP-BC Ordering Provider: Renita L Fu, METAL WINDOW SCREEN ASSEMBLER Date of Service: 04/06/24 XR/XR knee RT [...] Justina Munson M.D.04/06/2024 12:42 PM Dictation Location: [place] [address] Transcribed By: [facility] 04/06/24 1242 Dictated By: Justina Munson MD 04/06/24 1240 Signed By: 04/06/24 1242 Normal [facility] Estradiolon 04-15-2022 Estradiol 257.1 pg/mL 27 - 314 pg/mL [facility] Comment on above: FEMALES: Normally menstruating Luteal phase 33-298 Follicular phase 27-156 Midcycle phase 48-314 Postmenopausal (untreated) 5-50 Fulvestrant treatment will show an increased estradiol concentration with this methodology. Alternate methodologies are available upon request. No Panel Informationon 04-15 [facility] Progesteroneon 04-15-2022 Progesterone 39.8 ng/mL [facility] Comment on above: FEMALE (healthy): Follicular phase 0.06-0.89 Ovulation phase 0.12-12.00 Luteal phase 1.83-23.90 Postmenopausal <0.13 HCG, Quantitative, on 02-08-2022 hCG Quant <1 <5 mIU/mL [facility] Comment on above: Non-preg premeno <=5 Postmeno <=8 Male <=3 If HCG results do not concur with clinical observations, additional testing to confirm results is recommended. Elevated results not associated with may be found in patients with other diseases such as tumors of the germ cells (testis, ovaries, etc.), bladder, pancreas, stomach, lungs, and liver. datango [facility] TSHon 02-08-2022 TSH Qn 1.05 m[IU]/L [facility] Estradiolon 01-14-2022 Estradiol 326 pg/mL High 27 - 314 pg/mL [facility] Comment on above: FEMALES: Normally menstruating Luteal phase 33-298 Follicular phase 27-156 Midcycle phase 48-314 Postmenopausal (untreated) 5-50 Fulvestrant treatment will show an increased estradiol concentration with this methodology. Alternate methodologies are available upon request. Interpretation and review of laboratory results Abnormal [facility] HCG, Quantitative, on 01-14-2022 hCG Quant <1 <5 IU/L [facility] Comment on above: Non-preg premeno <=5 Postmeno <=8 Male <=3 If HCG results do not concur with clinical observations, additional testing to confirm results is recommended. Elevated results not associated with may be found in patients with other diseases such as tumors of the germ cells (testis, ovaries, etc.), bladder, pancreas, stomach, lungs, and liver. [facility] No Panel Informationon 01-14 [facility] Progesteroneon 01-14-2022 Progesterone 47.49 ng/mL [facility] Comment on above: FEMALE (healthy): Follicular phase 0.06-0.89 Ovulation phase 0.12-12.00 Luteal phase 1.83-23.90 Postmenopausal <0.13 Estradiolon 01-08-2022 Estradiol 251 pg/mL 27 - 314 pg/mL [facility] Comment on above: FEMALES: Normally menstruating Luteal phase 33-298 Follicular phase 27-156 Midcycle phase 48-314 Postmenopausal (untreated) 5-50 Fulvestrant treatment will show an increased estradiol concentration with this methodology. Alternate methodologies are available upon request. No Panel Informationon 01-08 [facility] Progesteroneon 01-08-2022 Progesterone 50.58 ng/mL [facility] Comment on above: FEMALE (healthy): Follicular phase 0.06-0.89 Ovulation phase 0.12-12.00 Luteal phase 1.83-23.90 Postmenopausal <0.13 HCG, Quantitative, on 12-10-2021 hCG Quant <1 <5 IU/L [facility] Comment on above: Non-preg premeno <=5 Postmeno <=8 Male <=3 If HCG results do not concur with clinical observations, additional testing to confirm results is recommended. Elevated results not associated with may be found in patients with other diseases such as tumors of the germ cells (testis, ovaries, etc.), bladder, pancreas, stomach, lungs, and liver. [facility] Estradiolon 09-26-2021 Estradiol 434 pg/mL High 27 - 314 pg/mL [facility] Comment on above: FEMALES: Normally menstruating Luteal phase 33-298 Follicular phase 27-156 Midcycle phase 48-314 Postmenopausal (untreated) 5-50 Fulvestrant treatment will show an increased estradiol concentration with this methodology. Alternate methodologies are available upon request. Interpretation and review of laboratory results Abnormal [facility] HCG, Quantitative, on 09-26-2021 hCG Quant 652 High <5 IU/L [facility] Comment on above: Non-preg premeno <=5 Postmeno <=8 Male <=3 If HCG results do not concur with clinical observations, additional testing to confirm results is recommended. Elevated results not associated with may be found in patients with other diseases such as tumors of the germ cells (testis, ovaries, etc.), bladder, pancreas, stomach, lungs, and liver. Interpretation and review of laboratory results Abnormal [employer] No Panel Informationon 09-26 [facility] Progesteroneon 09-26-2021 Progesterone 45.63 ng/mL [employer] Comment on above: FEMALE (healthy): Follicular phase 0.06-0.89 Ovulation phase 0.12-12.00 Luteal phase 1.83-23.90 Postmenopausal <0.13 Estradiolon 09-17-2021 Estradiol 389 pg/mL High 27 - 314 pg/mL [facility] Comment on above: FEMALES: Normally menstruating Luteal phase 33-298 Follicular phase 27-156 Midcycle phase 48-314 Postmenopausal (untreated) 5-50 Fulvestrant treatment will show an increased estradiol concentration with this methodology. Alternate methodologies are available upon request. Interpretation and review of laboratory results Abnormal [facility] No Panel Informationon 09-17 [facility] Progesteroneon 09-17-2021 Progesterone 15.02 ng/mL [facility] Comment on above: FEMALE (healthy): Follicular phase 0.06-0.89 Ovulation phase 0.12-12.00 Luteal phase 1.83-23.90 Postmenopausal <0.13 TSH without ReflexOrdered By : Pedro Luis Dorantes on 06-25-2021 TSH Qn 1.08 m[IU]/L [facility] Phone: [employer] Phone: HCG, Quantitative, on 02-15-2021 hCG Quant <1 <5 IU/L [employer] Phone: Comment on above: Non-preg premeno <=5 [...] Estradiol 66 pg/mL 27 - 314 pg/mL [employer] Phone: Comment on above: FEMALES: Normally menstruating Luteal phase 33-298 Follicular phase 27-156 Midcycle phase 48-314 Postmenopausal (untreated) 5-50 Fulvestrant treatment will show an increased estradiol concentration with this methodology. Alternate methodologies are available upon request. Follicle Stimulating Hormone on 01-12-2021 FSH 5.3 U/L 1.7 - 21.5 U/L [employer] Phone: Comment on above: Reference Range: Male: 1.5-12.4 Ovulating Female: Follicular Phase 3.5-12.5 Ovulation Phase 4.7-21.5 Luteal Phase 1.7-7.7 Postmenopausal Female: 25.8-134.8 HIV Screenon 01-12-2021 HIV Ag/Ab NONREACTIVE NONREACTIVE [employer] Phone: Comment on above: No laboratory eviden ce of HIV infection. If acute HIV infection is suspected, consider testing for HIV-1 RNA. Hepatitis B Core Antibody, T nadia 01-12-2021 Hep B Core Total Ab NONREACTIVE NONREACTIVE [employer] Phone: Hepatitis B Surface Antigeno n 01-12-2021 Hepatitis B Surface Ag NONREACTIVE NONREACTIVE [employer] Phone: Hepatitis C Antibodyon 01-12 Hepatitis C Ab NONREACTIVE NONREACTIVE [employer] [facility] [employer] Phone: Comment on above: The hepatitis C [...] LH 10.8 U/L 1.0 - 95.6 U/L [employer] Phone: Comment on above: Reference Range: Male: 1.7-8.6 Ovulating Female: Follicular Phase 2.4-12.6 Ovulation Phase 14.0-95.6 Luteal Phase 1.0-11.4 Postmenopausal Female: 7.7-58.5 Progesteroneon 01-12-2021 Progesterone 0.13 ng/mL [employer] Phone: Comment on above: FEMALE (healthy): Follicular phase 0.06-0.89 Ovulation phase 0.12-12.00 Luteal phase 1.83-23.90 Postmenopausal <0.13 Prolactinon 01-12-2021 Prolactin 7.58 ug/L 4.79 - 23.30 ug/L [employer] Phone: Comment on above: The presence of macr oprolactin may cause interference in female patients with various endocrinological diseases or during . Rubella antibody, IgGon 01-01 Rubella virus IgG Ql (S) 52.4 IU/mL [employer] Phone: Comment on above: REFERENCE RANGE: <5.0 NON-REACTIVE (non-immune) 5.0 TO 9.9 EQUIVOCAL >=10.0 REACTIVE (immune) HCG, Quantitative, on 01-11-2021 hCG Quant <1 <5 IU/L [employer] Phone: Comment on above: Non-preg premeno <=5 [...] without Reflexon 021 TSH Qn 1.08 m[IU]/L [facility] Work Phone: TYPE AND SCREENon 01-11-2021 ABO/Rh Positive [employer] Work Phone: Arm Band [facility] Work Phone: Expiration Date 01/14/2021,2359 [employer] Work Phone: Vital Signs Date Time Vital Sign Value Performing Clinician Facility 06-13-2025 08:39-0400 Body mass index (BMI) [Ratio] 43.9 kg/m2 Christy Schwartz PA Work Phone: [facility] 06-13-2025 08:39-0400 Body weight 108.86 kg Christy Schwartz PA Work Phone: [facility] 06-13-2025 08:39-0400 Diastolic blood pressure 78 mm[Hg] Christy Efren PA Work Phone: [facility] 06-13-2025 08:39-0400 Systolic blood pressure 120 mm[Hg] Christy Temple PA Work Phone: [facility] 06-06-2025 08:50-0400 Body mass index (BMI) [Ratio] 43.86 kg/m2 Christy Efren PA Work Phone: [facility] 06-06-2025 08:50-0400 Body weight 108.77 kg Christy Temple PA Work Phone: [facility] 06-06-2025 08:50-0400 Diastolic blood pressure 78 mm[Hg] Christy Temple PA Work Phone: [facility] 06-06-2025 08:50-0400 Systolic blood pressure 124 mm[Hg] Christy Schwartz PA Work Phone: [facility] 05-30-2025 08:35-0400 Body mass index (BMI) [Ratio] 43.16 kg/m2 Cain Mendoza DO Work Phone: [facility] 05-30-2025 08:35-0400 Body weight 107.05 kg Cain Mendoza DO Work Phone: [facility] 05-30-2025 08:35-0400 Diastolic blood pressure 82 mm[Hg] Cain Mendoza DO Work Phone: [facility] 05-30-2025 08:35-0400 Systolic blood pressure 130 mm[Hg] Cain Mendoza DO Work Phone: [facility] 05-26-2025 08:55-0400 Body mass index (BMI) [Ratio] 43.07 kg/m2 Christy MCKOY Work Phone: [facility] 05-26-2025 08:55-0400 Body weight 106.82 kg Christy MCKOY Work Phone: [facility] 05-26-2025 08:55-0400 Diastolic blood pressure 84 mm[Hg] Christy MCKOY Work Phone: [facility] 05-26-2025 08:55-0400 Systolic blood pressure 130 mm[Hg] Christy MCKOY Work Phone: [facility] 05-16-2025 08:37-0400 Body mass index (BMI) [Ratio] 43.71 kg/m2 Cain Mendoza DO Work Phone: [facility] 05-16-2025 08:37-0400 Body weight 108.41 kg Cain Mendoza DO Work Phone: [facility] 05-16-2025 08:37-0400 Diastolic blood pressure 70 mm[Hg] Cain Mendoza DO Work Phone: [facility] 05-16-2025 08:37-0400 Systolic blood pressure 120 mm[Hg] Cain Mendoza DO Work Phone: [facility] 05-03-2025 09:06-0400 Body mass index (BMI) [Ratio] 43.99 kg/m2 Christy Efren PA Work Phone: [facility] 05-03-2025 09:06-0400 Body weight 109.09 kg Christy Efren PA Work Phone: [facility] 05-03-2025 09:06-0400 Diastolic blood pressure 86 mm[Hg] Christy Efren PA Work Phone: [facility] 05-03-2025 09:06-0400 Systolic blood pressure 130 mm[Hg] Christy Schwartz PA Work Phone: [facility] 04-18-2025 10:40-0400 Body mass index (BMI) [Ratio] 43.16 kg/m2 Cain Mendoza DO Work Phone: [facility] 04-18-2025 10:40-0400 Body weight 107.05 kg Cain Mendoza DO Work Phone: [facility] 04-18-2025 10:40-0400 Diastolic blood pressure 72 mm[Hg] Cain Mendoza DO Work Phone: [facility] 04-18-2025 10:40-0400 Systolic blood pressure 120 mm[Hg] Cain Mendoza DO Work Phone: [facility] 04-18-2025 10:34-0400 Body height 157.5 cm Cain Mendoza DO Work Phone: [facility] 03-30-2025 09:26-0400 Body weight 103.87 kg Christy Schwartz PA Work Phone: [facility] 03-30-2025 09:26-0400 Diastolic blood pressure 80 mm[Hg] Christy Efren PA Work Phone: [facility] 03-30-2025 09:26-0400 Systolic blood pressure 122 mm[Hg] Christy Schwartz PA Work Phone: [facility] 03-03-2025 09:00-0400 Body weight 105.14 kg Cain Mendoza DO Work Phone: [facility] 03-03-2025 09:00-0400 Diastolic blood pressure 80 mm[Hg] Cain Mendoza DO Work Phone: [facility] 03-03-2025 09:00-0400 Systolic blood pressure 120 mm[Hg] Cain Mendoza DO Work Phone: [facility] 02-08-2025 09:34-0400 Body height 157.5 cm Jaida Chadwick MD Work Phone: [facility] 02-08-2025 09:34-0400 Body mass index (BMI) [Ratio] 42.24 kg/m2 Jaida Chadwick MD Work Phone: [facility] 02-08-2025 09:34-0400 Body weight 104.78 kg Jaida Chadwick MD Work Phone: [facility] 02-08-2025 09:34-0400 Diastolic blood pressure 80 mm[Hg] Jaida Chadwick MD Work Phone: [facility] 02-08-2025 09:34-0400 Heart rate 95 /min Jaida Chadwick MD Work Phone: [facility] 02-08-2025 09:34-0400 Systolic blood pressure 125 mm[Hg] Jaida Chadwick MD Work Phone: [facility] 01-26-2025 14:44-0400 Body height 157.5 cm Apollo Martinez METAL WINDOW SCREEN ASSEMBLER-TRANSITION TEACHER Work Phone: [facility] 01-26-2025 14:44-0400 Body mass index (BMI) [Ratio] 41.88 kg/m2 Apollo Martinez METAL WINDOW SCREEN ASSEMBLER-TRANSITION TEACHER Work Phone: [facility] 01-26-2025 14:44-0400 Body weight 103.87 kg Apollo Martinez METAL WINDOW SCREEN ASSEMBLER-TRANSITION TEACHER Work Phone: [facility] 01-26-2025 14:44-0400 Diastolic blood pressure 60 mm[Hg] Apollo Martinez METAL WINDOW SCREEN ASSEMBLER-TRANSITION TEACHER Work Phone: [facility] 01-26-2025 14:44-0400 Heart rate 87 /min Apollo Martinez METAL WINDOW SCREEN ASSEMBLER-TRANSITION TEACHER Work Phone: [facility] 01-26-2025 14:44-0400 Systolic blood pressure 115 mm[Hg] Apollo Guptaleatha SALOMON-TRANSITION TEACHER Work Phone: [facility] 01-26-2025 14:25-0400 Body mass index (BMI) [Ratio] 41.87 kg/m2 [facility] Ed [facility] 01-26-2025 14:25-0400 Body weight 103.87 kg [facility] 01-20-2025 08:42-0400 Body weight 103.87 kg Christy MCKOY Work Phone: [facility] 01-20-2025 08:42-0400 Diastolic blood pressure 70 mm[Hg] Christy MCKOY Work Phone: [facility] 01-20-2025 08:42-0400 Systolic blood pressure 120 mm[Hg] Christy MCKOY Work Phone: [facility] 12-30-2024 10:57-0500 Body height 157.5 cm Jaida Chadwick MD Work Phone: [facility] 11-25-2024 15:25-0500 Body weight 105.23 kg Noms Nurse [facility] 11-25-2024 15:25-0500 Diastolic blood pressure 72 mm[Hg] Noms Nurse [facility] 11-25-2024 15:25-0500 Systolic blood pressure 124 mm[Hg] Noms Nurse [facility] 04-06-2024 12:06-0400 Body height 157.48 cm PHYSICIAN NO [facility] 04-06-2024 12:06-0400 Body mass index (BMI) [Ratio] 42 kg/m2 PHYSICIAN NO [facility] 04-06-2024 12:06-0400 Body weight 104.32 kg PHYSICIAN NO [facility] 04-06-2024 12:06-0400 Diastolic blood pressure 80 mm[Hg] PHYSICIAN NO [facility] 04-06-2024 12:06-0400 Heart rate 80 /min PHYSICIAN NO [facility] 04-06-2024 12:06-0400 Respiratory rate 20 /min PHYSICIAN NO [facility] 04-06-2024 12:06-0400 SaO2% (BldA) [Mass fraction] 99 % PHYSICIAN NO [facility] 04-06-2024 12:06-0400 Systolic blood pressure 124 mm[Hg] PHYSICIAN NO [facility] Encounters Encounter Date Encounter Type Care Provider Facility Start: 11-25-2025 ambulatory Aissatou Castillo Facility:[facility] Start: 06-16-2025 End: 06-16-2025 ambulatory CHRISTY SCHWARTZ Not Available Start: 06-14-2025 End: 06-14-2025 Clinisync Result Encounter George Scherer NP Work Phone: [facility] Unsolicited Start: 06-14-2025 End: 06-14-2025 Clinisync Result Encounter George Scherer NP Work Phone: [facility] External [facility] Unsolicited Start: 06-13-2025 End: 06-13-2025 Bamboo flowsheet Christy MCKOY Work Phone: [facility] OBPETER Start: 06-13-2025 End: 06-13-2025 Bamboo flowsheet Christy MCKOY Work Phone: [facility] Start: 06-13-2025 End: 06-13-2025 Telephone encounter Sonya Lomax RN [facility] Start: 06-13-2025 End: 06-13-2025 ambulatory CHRISTY [...] Thompson RN Work Phone: [facility] Start: 06-08-2025 End: 06-08-2025 Clinisync Result Encounter George Scherer NP Work Phone: [facility] External Department Unsolicited Start: 06-08-2025 End: 06-08-2025 Clinisync Result Encounter George Scherer WHEEL ROLLER Work Phone: [facility] External Department Unsolicited Start: 06-07-2025 End: 06-07-2025 Orders Only Eva Mccann METAL WINDOW SCREEN ASSEMBLER[facility] Work Phone: [facility] Comment on above: Insulin controlled g estational diabetes mellitus (GDM) in second trimester; Prediabetes in mother during Start: 06-06-2025 End: 06-06-2025 Bamboo flowsheet Christy MCKOY Work Phone: [facility] Start: 06-06-2025 End: 06-06-2025 Bamboo flowsheet Christy MCKOY Work Phone: [facility] Start: 06-06-2025 End: 06-06-2025 flow sheet Christy MCKOY Work Phone: [facility] Comment on above: Third trimester preg selene ([facility]); 37 weeks gestation of ([facility]) Start: 06-06-2025 End: 06-06-2025 ambulatory CHRISTY SCHWARTZ Not Available Start: 05-30-2025 End: 05-30-2025 Bamboo flowsheet Cain Mendoza DO Work Phone: [facility] Start: 05-30-2025 End: 05-30-2025 Bamboo flowsheet Cain Mendoza DO Work Phone: [facility] Start: 05-30-2025 End: 06-07-2025 Telephone encounter Sonya Lomax RN [facility] at [facility] Start: 05-30-2025 End: 05-30-2025 flow sheet Cain Donaldson DO Work Phone: [facility] Comment on above: Right otitis media, unspecified otitis media type (Primary Dx); Third trimester ([facility]); 36 weeks gestation of ([facility]) Start: 05-30-2025 End: 05-30-2025 ambulatory CAIN DONALDSON Not Available Start: 05-27-2025 End: 05-27-2025 ambulatory Aissatou Castillo Facility:[facility] [place] [place] Start: 05-27-2025 End: 05-27-2025 Patient encounter procedure Aissatou Castillo [facility] Start: 05-26-2025 End: 05-26-2025 Bamboo flowsheet Christy MCKOY Work Phone: [facility] Start: 05-26-2025 End: 05-26-2025 Bamboo flowsheet Christy MCKOY Work Phone: [facility] Start: 05-26-2025 End: 05-26-2025 flow sheet Christy MCKOY Work Phone: [facility] Comment on above: Third trimester preg selene ([facility]); 36 weeks gestation of ([facility]) Start: 05-26-2025 End: 05-26-2025 ambulatory CHRISTY SCHWARTZ Not Available Start: 05-24-2025 End: 05-24-2025 Clinisync Result Encounter George Scherer NP Work Phone: [facility] Unsolicited Start: 05-24-2025 End: 05-24-2025 Clinisync Result Encounter George Scherer NP Work Phone: [facility] Unsolicited Start: 05-23-2025 End: 05-23-2025 Office outpatient visit 25 minutes Devika Luu PA-C Work Phone: [facility] Comment on above: Insulin controlled g estational diabetes mellitus (GDM) in third trimester (Primary Dx) Start: 05-23-2025 End: 05-23-2025 ambulatory DEVIKA LUU [facility] Start: 05-19-2025 ambulatory MESSI LUEVANOGREY Facility: [place] Start: 05-17-2025 End: 05-17-2025 Clinisync Result Encounter George Scherer NP Work Phone: [facility] Unsolicited Start: 05-17-2025 End: 05-17-2025 Clinisync Result Encounter George Scherer NP Work Phone: [facility] Unsolicited Start: 05-17-2025 End: 05-17-2025 Telephone encounter Sonya Lomax RN [facility] at [facility] Start: 05-16-2025 End: 05-16-2025 Bamboo flowsheet Cain Mendoza DO Work Phone: [facility] Start: 05-16-2025 End: 05-16-2025 Bamboo flowsheet Cain Mendoza DO Work Phone: [facility] Start: 05-16-2025 End: 05-16-2025 ambulatory CAIN MENDOZA Not Available Start: 05-16-2025 End: 05-16-2025 flow sheet Cain Mendoza DO Work Phone: [facility] Comment on above: 34 weeks gestation o f ([facility]); Third trimester ([facility]); Conceived by in vitro fertilization; Factor 5 Leiden mutation, heterozygous ([facility]); Insulin controlled gestational diabetes mellitus (GDM) during , antepartum ([facility]); Non-recurrent acute serous otitis media of left ear Start: 05-11-2025 End: 05-11-2025 Telephone encounter Belen BRYANT [facility] Start: 05-10-2025 End: 05-10-2025 Clinisync Result Encounter George Scherer NP Work Phone: [facility] Unsolicited Start: 05-10-2025 End: 05-10-2025 Clinisync Result Encounter George Gilmer BRADSHAW Work Phone: [facility] Unsolicited Start: 05-10-2025 End: 05-10-2025 ambulatory CHRISTY SCHWARTZ Not Available Start: 05-04-2025 End: 05-04-2025 Clinisync Result Encounter George Gilmer BRADSHAW Work Phone: [facility] Unsolicited Start: 05-04-2025 End: 05-04-2025 Clinisync Result Encounter George Scherer NP Work Phone: [facility] Unsolicited Start: 05-03-2025 End: 05-03-2025 Bamboo flowsheet Christy MCKOY Work Phone: [facility] Start: 05-03-2025 End: 05-03-2025 Bamboo flowsheet Christy MCKOY Work Phone: [facility] Start: 05-03-2025 End: 05-03-2025 Telephone encounter Shoshana BRYANT Work Phone: [facility] Start: 05-03-2025 End: 05-03-2025 flow sheet Christy MCKOY Work Phone: [facility] Comment on above: size inconsist ent with dates ([facility]) (Primary Dx); Third trimester ([facility]); 32 weeks gestation of ([facility]); Conceived by in vitro fertilization; Factor 5 Leiden mutation, heterozygous ([facility]); Insulin controlled gestational diabetes mellitus (GDM) during , antepartum ([facility]) Start: 05-03-2025 End: 05-03-2025 ambulatory CHRISTY SCHWARTZ Not Available Start: 04-27-2025 ambulatory Aissatou Castillo Facility:[facility] Start: 04-27-2025 End: 04-27-2025 Clinisync Result Encounter George Scherer NP Work Phone: [facility] Unsolicited Start: 04-27-2025 End: 04-27-2025 Clinisync Result Encounter George Lamerly WHEEL ROLLER Work Phone: [facility] External Department Unsolicited Start: 04-25-2025 End: 04-25-2025 Telephone encounter Giselle Cheng CMA Maternal- Medicine at [facility] Start: 04-25-2025 End: 04-25-2025 ambulatory [facility] [place]alen LUU [facility] Start: 04-25-2025 End: 04-25-2025 Office outpatient visit 25 minutes [facility] Jalen Luu PAGian Work Phone: Maternal- Medicine at [facility] Comment on above: Insulin controlled g estational diabetes mellitus (GDM) in third trimester (Primary Dx) Start: 04-20-2025 End: 04-20-2025 Telephone encounter Aissatou Stoner RN Maternal- Medicine at [facility] Start: 04-19-2025 End: 04-19-2025 Clinisync Result [...] Comment on above: Third trimester preg selene ([facility]); 30 weeks gestation of ([facility]) Start: 04-17-2025 End: 04-18-2025 Clinisync Result Encounter Cain Mendoza DO Work Phone: [facility] External Department Unsolicited Start: 04-17-2025 End: 04-18-2025 Clinisync Result Encounter Cain Mendoza DO Work Phone: [facility] External Department Unsolicited Start: 04-14-2025 End: 04-14-2025 ambulatory CAIN R [facility] Start: 04-12-2025 End: 04-12-2025 Telephone encounter Sonya Lomax RN Maternal- Medicine at [facility] Start: 04-11-2025 End: 04-11-2025 ambulatory Devika Luu PA-C Work Phone: Maternal- Medicine at [facility] Comment on above: Insulin controlled g [...] Luu PA-C Work Phone: Maternal- Medicine at [facility] Start: 04-05-2025 End: 04-05-2025 Clinisync Result [...] 03-30-2025 Office outpatient visit 25 minutes Apollo Guptagan [facility] WINDOW [facility]CREEN [facility] Work Phone: M[facility]- Medicine at [facility] Comment on above: Insulin controlled g estational diabetes mellitus (GDM) in second trimester (Primary Dx); Recurrent major depressive disorder, in partial remission; Prediabetes in mother during Start: 03-30-2025 End: 03-30-2025 ambulatory [facility] Start: 03-30-2025 End: 03-30-2025 flow sheet Christy MCKOY Work Phone: [facility] Comment on above: Second trimester pre gnancy; 27 weeks gestation of ; Gestational diabetes mellitus (GDM), antepartum, gestational diabetes method of control unspecified; Factor 5 Leiden mutation, heterozygous (CMS/HCC); Conceived by in vitro fertilization Start: 03-30-2025 End: 03-30-2025 ambulatory CHRISTY SCHWARTZ Not Available Start: 03-22-2025 End: 03-22-2025 Telephone encounter Sonya Lomax RN Maternal- Medicine at [facility] Start: 03-16-2025 End: 03-16-2025 Telephone encounter Sonya Lomax RN Maternal- Medicine at [facility] Start: 03-16-2025 End: 03-16-2025 [facility] Start: 03-11-2025 End: 03-11-2025 Telephone encounter Naomy Thompson RN Work Phone: Maternal- Medicine at [facility] Start: 03-07-2025 End: 03-07-2025 Orders Only Cole Wade MD Work Phone: Maternal- Medicine at [facility] Comment on above: Insulin controlled g [...] encounter Valerie Le RN Maternal- Medicine at [facility] Start: 02-28-2025 End: 02-28-2025 Orders Only Devika Luu PA-C Work Phone: Maternal- Medicine at [facility] Comment on above: Insulin controlled g estational diabetes mellitus (GDM) in second trimester; Prediabetes in mother during Start: 02-24-2025 End: 02-24-2025 Office outpatient visit 25 minutes Apollo LAWRENCE Work Phone: Maternal- Medicine at [facility] Comment on above: Insulin controlled g estational diabetes mellitus (GDM) in second trimester (Primary Dx); Recurrent major depressive disorder, in partial remission; Bipolar 1 disorder ([facility]); Prediabetes in mother during Start: 02-24-2025 End: 02-24-2025 ambulatory APOLLO LORI [facility] Start: 02-17-2025 End: 02-17-2025 Telephone encounter Christy Prado LPN M[facility]- Medicine at [facility] Start: 02-15-2025 End: 02-15-2025 Telephone encounter Valerie Le RN M[facility]- Medicine at [facility] Start: 02-08-2025 End: 02-08-2025 Office consultation new/estab patient 60 min Jaida Chadwick MD Work Phone: Maternal- Medicine at [facility] Comment on above: Insulin controlled g estational diabetes mellitus (GDM) in second trimester (Primary Dx); Prediabetes in mother during ; 20 weeks gestation of ; Choroid plexus cyst of fetus affecting care of mother, antepartum, single or unspecified fetus; Heterozygous factor V Leiden affecting in second trimester, antepartum; Severe obesity due to excess calories affecting , antepartum ([facility]); Bipolar disorder, in full remission, most recent episode depressed Start: 02-08-2025 End: 02-08-2025 Orders Only Christy Prado LPN Maternal- Medicine at [facility] Comment on above: Insulin controlled g estational diabetes mellitus (GDM) in second trimester (Primary Dx); Choroid plexus cyst of fetus affecting care of mother, antepartum, single or unspecified fetus; Heterozygous factor V Leiden affecting in second trimester, antepartum; Severe obesity due to excess calories affecting , antepartum ([facility]) Start: 02-03-2025 End: 02-03-2025 Telephone encounter Christy Prado LPN M[facility]- Medicine at [facility] Start: 01-27-2025 End: 01-27-2025 Orders Only Apollo Martinez APRN-TRANSITION TEACHER Work Phone: Maternal- Medicine at [facility] Start: 01-26-2025 End: 01-26-2025 Office outpatient new 45 minutes Apollo Martinez METAL WINDOW SCREEN ASSEMBLER-TRANSITION TEACHER Work Phone: Maternal- Medicine at [facility] Comment on above: Insulin controlled g estational diabetes mellitus (GDM) in second trimester (Primary Dx) Start: 01-26-2025 End: 01-27-2025 Refill Apollo Martinez METAL WINDOW SCREEN ASSEMBLER-TRANSITION TEACHER Work Phone: Maternal- Medicine at [facility] Start: 01-26-2025 End: 01-26-[address] Work Phone: Maternal- Medicine at [facility] Comment on above: Insulin controlled g [...] abstracting Scanning Provider External Maternal- Medicine at [facility] Start: 12-30-2024 End: 12-30-2024 Chart abstracting Jaida Chadwick MD Work Phone: Maternal- Medicine at [facility] Start: 12-29-2024 End: 12-29-2024 Telephone encounter Claudine Hawthorne Maternal- Medicine at [facility] Start: 12-23-2024 End: 12-23-2024 ambulatory CAIN DONALDSON [facility] Start: 12-23-2024 End: 12-23-2024 Subsequent hospital visit by physician [facility] Start: 12-23-2024 End: 12-23-2024 Bamboo flowsheet Cain Donaldson DO Work Phone: [facility] Start: 12-23-2024 End: 12-24-2024 Bamboo flowsheet Cain Donaldson DO Work Phone: [facility] Start: 12-23-2024 End: 12-24-2024 Clinisync Result Encounter Cain Donaldson DO Work Phone: [facility] External Department Unsolicited Start: 12-23-2024 End: 12-23-2024 flow sheet Cain Veeo DO Work Phone: [facility] Comment on above: Second trimester pre gnancy; 13 weeks gestation of ; Gestational diabetes mellitus (GDM), antepartum, gestational diabetes method of control unspecified; Elevated glucose tolerance test; resulting from in vitro fertilization, antepartum Start: 12-23-2024 End: 12-23-2024 ambulatory CAIN VEEO Not Available Start: 11-25-2024 End: 11-25-2024 ambulatory [facility] Mendoza Nurse [facility] Comment on above: GA: [id number] Start: 10-20-2024 End: 10-20-2024 ambulatory [facility] Start: 10-20-2024 End: 10-20-2024 Subsequent hospital visit by physician [facility] Start: 10-18-2024 End: 10-18-2024 ambulatory [facility] Start: 10-18-2024 End: 10-18-2024 Subsequent hospital visit by physician [facility] Start: 04-06-2024 End: 04-06-2024 ambulatory PHYSICIAN TWIN [facility] Work Phone: Start: 04-06-2024 End: 04-06-2024 Patient encounter procedure PHYSICIAN TWIN [facility] [place] Work Phone: Start: 04-15-2022 End: 04-15-2022 Subsequent hospital visit by physician [facility] Start: 02-08-2022 End: 02-08-2022 Subsequent hospital visit by physician [facility] Start: 01-14-2022 End: 01-14-2022 Subsequent hospital visit by physician [facility] Start: 01-07-2022 End: 01-07-2022 Subsequent hospital visit by physician [facility] Start: 12-10-2021 End: 12-10-2021 Subsequent hospital visit by physician [facility] Start: 09-26-2021 End: 09-26-2021 Subsequent hospital visit by physician [facility] Start: 09-17-2021 End: 09-17-2021 Subsequent hospital visit by physician [facility] Start: 06-25-2021 End: 06-25-2021 Subsequent hospital visit by physician [facility] Start: 02-15-2021 End: 02-15-2021 Subsequent hospital visit by physician [facility] Covid19 Pat Screening Schedule [facility] Comment on above: Arrived Start: 01-11-2021 End: 01-11-2021 Subsequent hospital visit by physician [facility] Procedures Date Procedure Procedure Detail Performing Clinician Start: 06-14-2025 OB BPP W NON-STRESS George Gilmer WHEEL ROLLER Work Phone: Start: 06-13-2025 Urnls dip stick/tabl et rgnt non-auto w/o micrscp Christy MCKOY Work Phone: Start: 06-08-2025 US OB BPP W NON-STRESS George Gilmer WHEEL ROLLER Work Phone: Start: 05-30-2025 Urnls dip stick/tabl et rgnt non-auto w/o micrscp Cain Mendoza DO Work Phone: Start: 05-26-2025 Urnls dip stick/tabl et rgnt non-auto w/o micrscp Christy MCKOY Work Phone: Start: 05-24-2025 OB BPP W NON-STRESS George Gilmer WHEEL ROLLER Work Phone: Start: 05-17-2025 US OB BPP W NON-STRESS George Gilmer WHEEL ROLLER Work Phone: Start: 05-16-2025 Urnls dip stick/tabl et rgnt non-auto w/o micrscp Cain Mendoza DO Work Phone: Start: 05-10-2025 US OB BPP W NON-STRESS George Gilmer WHEEL ROLLER Work Phone: Start: 05-04-2025 US OB BPP W NON-STRESS George Scherer WHEEL ROLLER Work Phone: Start: 05-03-2025 Urnls dip stick/tabl et rgnt non-auto w/o micrscp Christy Schwartz PA Work Phone: Start: 04-27-2025 US OB BPP W NON-STRESS George Gilmer WHEEL ROLLER Work Phone: Start: 04-19-2025 US OB BPP W NON-STRESS Cain Mendoza DO Work Phone: Start: 04-19-2025 US RENAL BI Cain Fazi o DO Work Phone: Start: 04-18-2025 TBH UA (CLEAN/CATCH) LIVESTOCK RANCH HAND/MICRO IF IND. Cain Mendoza DO Work Phone: [...] Start: 04-06-2024 X-ray of right knee PHY SICRANJIT NO FAMILY Start: 04-15-2022 Assay of estradiol [...] 01-11-2021 Antibody hiv-1&hiv-2 single result Pedro Luis Doranets Work Phone: Start: 01-11-2021 Antibody rubella Pedro Luis Dorantes Work Phone: Start: 01-11-2021 Assay of estradiol Summer Dorantes Work Phone: Start: 01-11-2021 Assay of progesterone F vick Dorantes Work Phone: Start: 01-11-2021 Assay of [...] Td Vaccines (2 - Td or Tdap) [facility] Start: 01-21-2028 Screening for malign ant neoplasm of cervix [facility] Start: 02-08-2026 Adult BMI Screening Adult BMI Screen ing [facility] Start: 02-08-2026 Tobacco Screening Tobacco Screening [facility] Start: 01-26-2026 Adult BMI Screening Adult BMI Screen ing [facility] Start: 01-26-2026 Tobacco Screening Tobacco Screening [facility] Start: 07-04-2025 [facility] Start: 06-16-2025 End: 06-16-2025 Professional / ancillary services management 06/16/2025 8:00 AM EDT Ancillary Procedure [facility] [address] [place] [phone] [facility] Start: 06-13-2025 End: 10-13-2025 US for US OB follow up transabdominal approach Imaging Routine Excessive growth affecting management of in third trimester, single or unspecified fetus ([facility]) Expected: 06/13/2025, Expires: 10/13/2025 [facility] Work Phone: Comment on above: Expected: 06/13/2025 , Expires: 10/13/2025 Start: 06-13-2025 End: 06-13-2025 Patient encounter procedure [facility] Start: 06-06-2025 End: 06-06-2025 Patient encounter procedure [facility] Comment on above: Arrived Start: 06-03-2025 Influenza vaccination Flu vacc ine (Season Ended) [facility] Start: 05-30-2025 End: 05-30-2025 Patient encounter procedure [facility] Comment on above: Arrived Start: 05-26-2025 End: 05-26-2026 CULTURE, GROUP B STREP WITH SUSCEPTIBLITY CULTURE, GROUP B STREP WITH SUSCEPTIBLITY Lab Routine Third trimester ([facility]) Expected: 05/26/2025, Expires: 05/26/2026 [facility] Work Phone: Comment on above: Expected: 05/26/2025 , Expires: 05/26/2026 Start: 05-26-2025 End: 05-26-2025 Patient encounter procedure [facility] Comment on above: Arrived Start: 05-23-2025 End: 05-23-2025 Telemedicine consultation with patient 05/23/2025 1:30 PM EDT Telemedicine Maternal- Medicine at [facility] [address] [place] [address] Devika Luu, PAMoniqueC [address] [facility] [address] [address] Maternal- Medicine at [facility] Start: 05-16-2025 End: 05-16-2025 Patient encounter procedure 05/16/2025 8:30 AM EDT Routine [facility] [address] [place] [address] Cain Donaldson, [address] [place] [address] [facility] Start: 05-12-2025 End: 05-12-2025 Patient encounter procedure 05/12/2025 8:00 AM EDT Appointment [facility] [place] [address] [place] [phone] [facility] [place] Start: 05-10-2025 End: 05-10-2025 Professional / ancillary services management 05/10/2025 8:00 AM EDT Ancillary Procedure [facility] [address] [place] [address] [facility] Start: 05-03-2025 End: 09-03-2025 US for US OB follow up transabdominal approach Imaging Routine size inconsistent with dates ([facility]) Expected: 05/03/2025, Expires: 09/03/2025 [facility] Work Phone: Comment on above: Expected: 05/03/2025 , Expires: 09/03/2025 Start: 05-03-2025 End: 05-03-2025 Patient encounter procedure [facility] Comment on above: Arrived Start: 04-25-2025 End: 04-25-2025 Telemedicine consultation with patient 04/25/2025 11:30 AM EDT Telemedicine Maternal- Medicine at [facility] [address] [place] [phone] Devika Luu, PAMoniqueC [address] [place] [id number] [facility]- Medicine at [facility] Start: 04-18-2025 End: 04-18-2025 Patient encounter procedure 04/18/2025 10:10 AM EDT Routine [facility] [address] [place] [address] Cain Donaldson, [address] [facility] [place] [address] [facility] Start: 04-14-2025 End: 04-14-2025 Patient encounter procedure 04/14/2025 8:00 AM EDT Appointment [facility] [place] [address] [place] [phone] [facility] [place] Start: 03-30-2025 End: 09-30-2025 US biophysical profile w non stress test US biophysical profile w non stress test Imaging Routine Gestational diabetes mellitus (GDM), antepartum, gestational diabetes method of control unspecified Factor 5 Leiden mutation, heterozygous (CMS/HCC) Conceived by in vitro fertilization Expected: 03/30/2025 (Approximate), Expires: 09/30/2025 [facility] Comment on above: Expected: 03/30/2025 (Approximate), Expires: 09/30/2025 Start: 03-30-2025 End: 07-31-2025 US for US OB follow up transabdominal approach Imaging Routine Gestational diabetes mellitus (GDM), antepartum, gestational diabetes method of control unspecified Factor 5 Leiden mutation, heterozygous (CMS/HCC) Conceived by in vitro fertilization Expected: 03/30/2025, Expires: 07/31/2025 [facility] Work Phone: Comment on above: Expected: 03/30/2025 , Expires: 07/31/2025 Start: 03-30-2025 End: 03-30-2025 Telemedicine consultation with patient 03/30/2025 1:30 PM EDT Telemedicine Maternal- Medicine at [facility] [address] [place] [phone] Apollo Martinez, METAL WINDOW SCREEN ASSEMBLER-TRANSITION TEACHER [address] [place] [address] M[facility]- Medicine at [facility] Start: 03-30-2025 End: 03-30-2025 Patient encounter procedure [facility] Comment on above: Arrived Start: 03-16-2025 End: 03-16-2025 Patient encounter procedure 03/16/2025 8:00 AM EDT Appointment [facility] [address] [place] [phone] [facility] Start: 03-03-2025 End: 03-03-2026 Alanine aminotransferase [Enzymatic activity/volume] in Serum or Plasma ALT Lab Routine 23 weeks gestation of induced hypertension, antepartum Expected: 03/03/2025 (Approximate), Expires: 03/03/2026 [facility] Comment on above: Expected: 03/03/2025 (Approximate), Expires: 03/03/2026 Start: 03-03-2025 End: 03-03-2026 Aspartate aminotransferase [Enzymatic activity/volume] in Serum or Plasma AST Lab Routine 23 weeks gestation of induced hypertension, antepartum Expected: 03/03/2025 (Approximate), Expires: 03/03/2026 [facility] Comment on above: Expected: 03/03/2025 (Approximate), Expires: 03/03/2026 Start: 03-03-2025 End: 03-03-2026 CBC W Auto Differential panel - Blood CBC and differential Lab Routine 23 weeks gestation of induced hypertension, antepartum Expected: 03/03/2025 (Approximate), Expires: 03/03/2026 [facility] Comment on above: Expected: 03/03/2025 (Approximate), Expires: 03/03/2026 Start: 03-03-2025 End: 03-03-2026 Creatinine [Mass/volume] in Serum or Plasma Creatinine Lab Routine 23 weeks gestation of induced hypertension, antepartum Expected: 03/03/2025 (Approximate), Expires: 03/03/2026 [facility] Work Phone: Comment on above: Expected: 03/03/2025 (Approximate), Expires: 03/03/2026 Start: 03-03-2025 End: 03-03-2026 Lactate dehydrogenase [Enzymatic activity/volume] in Serum or Plasma by Lactate to pyruvate reaction Lactate dehydrogenase Lab Routine 23 weeks gestation of induced hypertension, antepartum Expected: 03/03/2025, Expires: 03/03/2026 [facility] Comment on above: Expected: 03/03/2025 , Expires: 03/03/2026 Start: 03-03-2025 End: 03-03-2026 Protein, urine, 24 hour Protein, urine, 24 hour Lab Routine 23 weeks gestation of induced hypertension, antepartum Expected: 03/03/2025 (Approximate), Expires: 03/03/2026 [facility] Comment on above: Expected: 03/03/2025 (Approximate), Expires: 03/03/2026 Start: 03-03-2025 End: 03-03-2026 Pt and ptt Pt and ptt Lab Routine 23 weeks gestation of induced hypertension, antepartum Expected: 03/03/2025, Expires: 03/03/2026 [facility] Comment on above: Expected: 03/03/2025 , Expires: 03/03/2026 Start: 03-03-2025 End: 03-03-2026 Urate [Mass/volume] in Serum or Plasma Uric acid Lab Routine 23 weeks gestation of induced hypertension, antepartum Expected: 03/03/2025 (Approximate), Expires: 03/03/2026 [facility] Comment on above: Expected: 03/03/2025 (Approximate), Expires: 03/03/2026 Start: 03-03-2025 End: 03-03-2026 Urea nitrogen [Mass/volume] in Serum or Plasma BUN Lab Routine 23 weeks gestation of induced hypertension, antepartum Expected: 03/03/2025, Expires: 03/03/2026 [facility] Comment on above: Expected: 03/03/2025 , Expires: 03/03/2026 Start: 03-03-2025 End: 03-03-2025 Patient encounter procedure 03/03/2025 8:40 AM EDT Routine [facility] [address] [address] Cain Donaldson DO [address] [place] [address] Arrived [facility] Comment on above: Arrived Start: 02-24-2025 End: 02-24-2025 Patient encounter procedure 02/24/2025 1:00 PM EDT Office Visit Maternal- Medicine at [facility] [address] [place] [phone] Apollo Martinez, METAL WINDOW SCREEN ASSEMBLER-TRANSITION TEACHER [address] [place] [address] Maternal- Medicine at [facility] Start: 02-08-2025 End: 02-08-2026 US MFM with or without consult US MFM with or without consult Imaging Routine Insulin controlled gestational diabetes mellitus (GDM) in second trimester Choroid plexus cyst of fetus affecting care of mother, antepartum, single or unspecified fetus Heterozygous factor V Leiden affecting in second trimester, antepartum Severe obesity due to excess calories affecting , antepartum ([facility]) Expected: 02/08/2025, Expires: 02/08/2026 [facility] Work Phone: Comment on above: Expected: 02/08/2025 , Expires: 02/08/2026 Start: 02-08-2025 End: 02-08-2025 Patient encounter procedure [facility] - [facility] Start: 01-26-2025 End: 01-26-2025 Patient encounter procedure 01/26/2025 3:30 PM EDT Office Visit Maternal- Medicine at [facility] [address] [place] [phone] Apollo Martinez, METAL WINDOW SCREEN ASSEMBLER-TRANSITION TEACHER [address] [place] [address] Maternal- Medicine at [facility] Start: 01-26-2025 End: 01-26-2025 ambulatory 01/26/2025 1:30 PM EDT Support Visit Maternal- Medicine at [facility] [address] [place] [phone] Kenzie Dotson, RD [address] [place] [address] Maternal- Medicine at [facility] Start: 01-20-2025 End: 02-20-2025 Alpha fetoprotein, [...] first trimester Expected: 11/25/2024 (Approximate), Expires: 11/25/2025 [facility] Comment on above: Expected: 11/25/2024 (Approximate), Expires: 11/25/2025 Start: 07-04-2024 COVID-19 Vaccine ( season) COVID-19 Vaccine ( season) [facility] Start: 07-04-2024 COVID-19 Vaccine ( season) COVID-19 Vaccine ( season) [facility] Start: 07-04-2024 Influenza vaccination Influenza Vacc ine [facility] Start: 06-03-2024 Influenza vaccination Flu vaccine (# 1) [facility] Start: 11-24-2023 Screening for malign ant neoplasm of cervix Pap Smear [facility] Start: 2023 Screening for malign ant neoplasm of cervix [facility] Start: 07-04-2022 Influenza vaccination Flu vacc ine (Season Ended) [facility] Start: 07-04-2021 Influenza vaccination [facility] Start: 07-04-2020 Influenza vaccination Flu vaccine (# 1) [facility] [employer] Phone: Start: 07-03-2015 DTaP,Tdap and Td Vac cines (2 - Tdap) DTaP,Tdap and Td Vaccines (2 - Tdap) [facility] Start: 2014 Screening for malign ant neoplasm of cervix [facility] Start: 2012 DTaP/Tdap/Td vaccine (1 - Tdap) DTaP/Tdap/Td vaccine (1 - Tdap) [facility] Start: 2012 Hepatitis B vaccine (1 of 3 - 19+ 3-dose series) Hepatitis B vaccine (1 of 3 - 19+ 3-dose series) [facility] Start: 2011 Adult BMI Follow Up Plan Adult BMI Follow Up Plan [facility] Start: 2011 Adult BMI Screening Adult BMI Screen ing [facility] Start: 2009 COVID-19 Vaccine (1) COVID-19 Vaccin e (1) [facility] Work Phone: Start: 2006 Varicella vaccine (1 of 2 - 13+ 2-dose series) Varicella vaccine (1 of 2 - 13+ 2-dose series) [facility] Start: 2005 COVID-19 Vaccine (1) COVID-19 Vaccin e (1) [facility] Start: 2005 Depression Screen Depression Screen [facility] Start: 2005 Depression Screening Depression Scre ening [facility] Start: 2005 Tobacco Screening Tobacco Screening [facility] Start: 1998 COVID-19 Vaccine (1) COVID-19 Vaccin e (1) [facility] Start: 1994 Varicella vaccine (1 of 2 - 2-dose childhood series) Varicella vaccine (1 of 2 - 2-dose childhood series) [facility] End: 02-08-2025 Alpha Fetoprotein, [facility]: Comment on above: Once for 1 Occurrenc es starting 02/08/2025 until 02/08/2025 End: 01-11-2021 Anti Mullerian Hormone Anti Mullerian Hormone Lab Routine Once for 1 Occurrences starting 01/11/2021 until 01/11/2021 [employer] Phone: Comment on above: Once for 1 Occurrenc es starting 01/11/2021 until 01/11/2021 Anti Mullerian Hormone Anti Keeley erian Hormone Lab Routine 01/11/2021 1:58 PM EST [employer] Phone: Bacteria identified in Urine by Culture Urine culture Microbiology Routine Missed menses Ordered: 11/25/2024 [facility] [employer] Comment on above: Ordered: 11/25/2024 Bacteria identified in Urine by Culture Urine culture Microbiology Routine 34 weeks gestation of ([facility]) Conceived by in vitro fertilization Ordered: 05/16/2025 [employer] Work Phone: Comment on above: Ordered: 05/16/2025 End: 01-11-2021 C.trachomatis N.gonorrhoeae DNA, Urine C.trachomatis N.gonorrhoeae DNA, Urine Microbiology Routine Once for 1 Occurrences starting 01/11/2021 until 01/11/2021 [employer] Phone: Comment on above: Once for 1 Occurrenc es starting 01/11/2021 until 01/11/2021 C.trachomatis N.gonorrhoeae DNA, Urine C.trachomatis N.gonorrhoeae DNA, Urine Microbiology Routine 01/11/2021 2:29 PM EST [employer] Phone: CBC W Auto Different ial panel - Blood CBC and differential Lab Routine Missed menses , unspecified gestational age Ordered: 11/25/2024 [facility] Comment on above: Ordered: 11/25/2024 CHLAMYDIA TRACHOMATI S (GENITO/STI) CHLAMYDIA TRACHOMATIS (GENITO/STI) Lab Routine Exposure to STD Ordered: 01/20/2025 [employer] Comment on above: Ordered: 01/20/2025 End: 02-15-2021 COVID-19 COVID-19 Lab Routine Once for 1 Occurrences starting 02/15/2021 until 02/15/2021 [employer] Phone: Comment on above: Once for 1 Occurrenc es starting 02/15/2021 until 02/15/2021 COVID-19 COVID-19 Lab Rou linda 02/15/2021 3:10 PM EDT [employer] Phone: End: 12-23-2024 Culture, Urine Bon [facility] [employer] Comment on above: Once for 1 Occurrenc es starting 12/23/2024 until 12/23/2024 Cytology Cervical or vaginal smear or scraping study Pap Smear Pathology and Cytology Routine Well woman exam with routine gynecological exam Or[facility]: [facility]20/2025 [facility] Comment on above: Ordered: 01/20/2025 End: 01-11-2021 Factor 5 Leiden Factor 5 Leiden Lab Routine Once for 1 Occurrences starting 01/11/2021 until 01/11/2021 [employer] Phone: Comment on above: Once for 1 Occurrenc es starting 01/11/2021 until 01/11/2021 Factor 5 Leiden Factor 5 Leiden Lab Routine 01/11/2021 1:58 PM [facility] Phone: End: 01-11-2021 HbA1c (Bld) [Mass fraction] Hemoglobin A1C Lab Routine Once for 1 Occurrences starting 01/11/2021 until 01/11/2021 [employer] Phone: Comment on above: Once for 1 Occurrenc es starting 01/11/2021 until 01/11/2021 HbA1c (Bld) [Mass fraction] Hemoglobin A1C Lab Routine 01/11/2021 1:58 PM [facility] [employer] Phone: Hemoglobin A1c/Hemoglobin.total in Blood Hemoglobin A1c Lab Routine Missed menses , unspecified gestational age Ordered: 11/25/2024 [facility] [employer] Comment on above: Ordered: 11/25/2024 End: 12-23-2024 Hemoglobin A1c/Hemoglobin.total in Blood [facility] [employer] Comment on above: Once for 1 Occurrenc es starting 12/23/2024 until 12/23/2024 End: 12-23-2024 Hepatitis B Surface Antigen [employer] Comment on above: Once for 1 Occurrenc es starting 12/23/2024 until 12/23/2024 Hepatitis B virus urbano rface Ag [Presence] in Serum or Plasma by Immunoassay Hepatitis B surface antigen Lab Routine Missed menses , unspecified gestational age Ordered: 11/25/2024 [facility] [employer] Comment on above: Ordered: 11/25/2024 End: 12-23-2024 Hepatitis C Antibody [employer] Phone: Comment on above: Once for 1 Occurrenc es starting 12/23/2024 until 12/23/2024 Hepatitis C virus Ab [Presence] in Serum or Plasma by Immunoassay Hepatitis C antibody Lab Routine Missed menses , unspecified gestational age Ordered: 11/25/2024 [facility] [employer] Comment on above: Ordered: 11/25/2024 End: 12-23-2024 HIV Screen [employer] Comment on above: Once for 1 Occurrenc es starting 12/23/2024 until 12/23/2024 HIV-1/HIV-2 antigen/antibody combination immunoassay HIV-1 and HIV-2 antibodies Lab Routine Missed menses , unspecified gestational age Ordered: 11/25/2024 [facility] Comment on above: Ordered: 11/25/2024 Human papilloma viru s DNA [Presence] in Unspecified specimen by Probe with amplification HPV DNA probe, amplified Microbiology Routine Well woman exam with routine gynecological exam Ordered: 01/20/2025 [facility] Comment on above: Ordered: 01/20/2025 Neisseria gonorrhoea e DNA [Presence] in Unspecified specimen by JOSELYN with probe detection Neisseria gonorrhea DNA probe, direct Lab Routine Exposure to STD Ordered: 01/20/2025 [facility] Comment on above: Ordered: 01/20/2025 End: 01-11-2021 Prothrombin Gene Mutation Prothrombin Gene Mutation Lab Routine Once for 1 Occurrences starting 01/11/2021 until 01/11/2021 [employer] Phone: Comment on above: Once for 1 Occurrenc es starting 01/11/2021 until 01/11/2021 Prothrombin Gene Mutation Prothr ombin Gene Mutation Lab Routine 01/11/2021 1:58 PM EST [employer] Phone: Reagin Ab [Presence] in Serum by RPR RPR Lab Routine Missed menses , unspecified gestational age Ordered: 11/25/2024 [facility] Comment on above: Ordered: 11/25/2024 Rubella antibody, IgG Rubella an tibody, IgG Lab Routine Missed menses , unspecified gestational age Ordered: 11/25/2024 [facility] Comment on above: Ordered: 11/25/2024 End: 12-23-2024 Rubella antibody, IgG [facility] [employer] Comment on above: Once for 1 Occurrenc es starting 12/23/2024 until 12/23/2024 SURESWAB(R) ADVANCED VAGINITIS PLUS, TMA SURESWAB(R) ADVANCED VAGINITIS PLUS, TMA Pathology and Cytology Routine Vaginal discharge Ordered: 01/20/2025 [facility] Comment on above: Ordered: 01/20/2025 End: 01-11-2021 T. pallidum Ab T. pallidum Ab Lab Routine Once for 1 Occurrences starting 01/11/2021 until 01/11/2021 [employer] Phone: Comment on above: Once for 1 Occurrenc es starting 01/11/2021 until 01/11/2021 T. pallidum Ab T. pallidum Ab L ab Routine 01/11/2021 1:58 PM [facility] Work Phone: End: 12-23-2024 T. pallidum Ab [facility] [employer] Comment on above: Once for 1 Occurrenc [...] due to excess calories affecting , antepartum ([facility] Bipolar disorder, in full remission, most recent episode depressed 1 Occurrences starting 02/08/2025 until 02/08/2026 [employer] Work Phone: Comment on above: 1 Occurrences starti ng 02/08/2025 until 02/08/2026 End: 01-11-2021 Varicella Zoster Antibody, IgG Varicella Zoster Antibody, IgG Lab Routine Once for 1 Occurrences starting 01/11/2021 until 01/11/2021 [employer] Work Phone: Comment on above: Once for 1 Occurrenc es starting 01/11/2021 until 01/11/2021 Varicella Zoster Ant ibody, IgG Varicella Zoster Antibody, IgG Lab Routine 01/11/2021 1:58 PM [facility] Work Phone: End: 01-11-2021 Vitamin D 25 Hydroxy Vitamin D 25 Hydroxy Lab Routine Once for 1 Occurrences starting 01/11/2021 until 01/11/2021 [employer] Work Phone: Comment on above: Once for 1 Occurrenc es starting 01/11/2021 until 01/11/2021 [facility] Work Phone: End: 06-25-2021 Vitamin D 25 Hydroxy Vitamin D 25 Hydroxy Lab Routine Once for 1 Occurrences starting 06/25/2021 until 06/25/2021 [employer] Work Phone: Comment on above: Once for 1 Occurrenc es starting 06/25/2021 until 06/25/2021 Immunizations Immunization Date Immunization Notes Care Provider Jeevan calderon 08-03-2024 influenza virus vaccine, unspecified formulation Christy Prado LPN [facility] 09-08-2023 influenza virus vaccine, unspecified formulation Jaida Chadwick MD Work Phone: [employer] [facility] Payers Date Payer Category Payer [facility] BCBS [id number] 2024 Self-pay 2020 [facility] Managed Care - Other [id number] 2014 Unknown [id number] [id number]. 2.7.3.188602.315 1993 Unknown [id number] 2.16.840.1.478823.3.579. 2.174 1993 Unknown [id number] 2.16.840.1.353582.3.579. 2.174 1993 Unknown [id number] 2.16.840.1.390425.3.579. 2.174 1993 Unknown [id number] 2.16.840.1.829593.3.579. 2.174 1993 Unknown [id number] 2.16.840.1.705882.3.579. 2.1285 1993 Unknown [id number] 2.16.840.1.687049.3.579. 2.1285 1993 Unknown [id number] 2.16.840.1.590665.3.579. 2.1285 1993 Unknown [id number] 2.16.840.1.849493.3.579. 2.1285 1993 Unknown [id number] 2.16.840.1.516727.3.579. 2.1285 1993 Unknown [id number] 2.16.840.1.953838.3.579. 2.1285 1993 Unknown [id number] 2.16.840.1.849590.3.579. 2.1285 1993 Unknown [id number] 2.16.840.1.271384.3.579. 2.1285 1993 Unknown [id number] 2.16.840.1.039675.3.579. 2.1285 1993 Unknown [id number] 2.16.840.1.810670.3.579. 2.1285 1993 Unknown [id number] 2.16.840.1.652665.3.579. 2. 1993 Unknown [id number] 2.16.840.1.803906.3.579. 2. 1993 Unknown [id number] 2.16.840.1.647352.3.579. 2. 1993 Unknown [id number] 2.16.840.1.096772.3.579. 2. 1993 Unknown [id number] 2.16.840.1.385197.3.579. 2.1258 1993 Unknown [id number] 2.16.840.1.955584.3.579. 2.1258 1993 Unknown [id number] 2.16840.1.564023.3.579. 2.1258 1993 Unknown [id number] 2.16840.1.740834.3.579. 2.1258 1993 Unknown [id number] 2.16840.1.260589.3.579. 2.1258 1993 Unknown [id number] 2.16840.1.032973.3.579. 2.1258 1993 Unknown [id number] 2.16840.1.502630.3.579. 2.1258 1993 Unknown [id number] 2.16840.1.537492.3.579. 2.1258 1993 Unknown [id number] 2.840.1.067291.3.579. 2.1258 1993 Unknown [id number] 2.0.1.412709.3.579. 2.1258 1993 Unknown [id number] 2.840.1.071739.3.579. 2.1258 1993 Unknown [id number] 2.16840.1.701493.3.579. 2.1258 1993 Unknown [id number] 2.840.1.917030.3.579. 2.1258 1993 Unknown [id number] 2.840.1.152072.3.579. 2.1258 1993 Unknown [id number] 2.840.1.899579.3.579. 2.1259 Private Health Insurance [id number] Unknown [id number] 2.840.1.641942.3.579. 2.531 Social History Date Type Detail Facility Tobacco smoking stat [facility] Unknown if ever smoked [employer] Phone: Start: 1993 Sex Assigned At Not on file [facility] Work Phone: Tobacco smoking stat [facility] Tobacco smoking consumption unknown [facility] Start: 1993 Sex Assigned At Female F [facility] Start: 02-20-2013 End: 11-15-2020 History of Social function [facility] Start: 02-20-2013 End: 11-15-2020 Tobacco use panel [facility] Start: 10-01-2024 [facility] Start: 11-24-2024 Gender identity Identifies as female gender (finding) [facility] Start: 06-06-2015 End: 12-29-2024 Sex Female (finding) [facility] Start: 11-24-2020 End: 02-08-2025 Tobacco smoking status [facility] Ex-smoker [facility] Start: 11-03-2020 End: 11-03-2010 History of tobacco use Current smoker [facility] Start: 11-03-2020 End: 11-03-2010 History of tobacco use Cigarette Smoker [facility] Start: 11-24-2020 End: 02-08-2025 Tobacco use and exposure Smokeless tobacco non-user [facility] Start: 12-30-2024 End: 02-08-2025 Alcoholic beverage intake Ex-drinker (finding) [facility] Childcare Unknown [facility] Sexual Orientation [facility] [place] Medical Equipment Procedure Code Equipment Code Equipment Origin al Text Equipment Identifier Dates [id number] Start: 12-23-2024 End: 01-22-2025 1 each by In Vit ro route Daily Use to check FSBS four times daily [id number] Start: 12-23-2024 End: 01-22-2025 Use 2 syringes i n the morning for insulin dosage and 2 syringes in the Evening for insulin dosage. Total of 4 syringes daily needed. [id number] Start: 01-07-2025 Goals Date Patient Goal Desired [...] . She will be induced on Friday the . Fasting this morning was 85. documented in this encounter [facility] 06-13-2025 Telephone encounter Note Called pt and dicussed her blood sugars and she has all been in target since 2 days after her last adjustment on the . She will be induced on Friday the . Fasting this morning was 85. [facility] 06-13-2025 History of Present illness Narrative [...] insulin syringe 29G X 1/2 0.5 mL mis Use 2 syringes in the morning for insulin dosage and 2 syringes in the Evening for insulin dosage. Total of 4 syringes daily needed. Lantus SoloStar 29 Units, Subcutaneous, Nightly ALLERGIES No Known Allergies PROBLEMS Active Ambulatory Problems Diagnosis Date Noted No Active Ambulatory Problems Resolved Ambulatory Problems Diagnosis Date Noted No Resolved Ambulatory Problems Past Medical History: Diagnosis Date SAB (spontaneous ) ([facility]) 10/2021 HISTORY PAST MEDICAL HISTORY SOCIAL HISTORY Past Medical History: Diagnosis Date SAB (spontaneous ) ([facility]) 10/2021 Social History Tobacco Use Smoking [...] in third trimester, single or unspecified fetus ([facility]) O36.63X0 US OB follow up transabdominal approach 2. 38 weeks gestation of ([facility]) Z3A.38 POCT urinalysis dipstick manually resulted 3. Third trimester ([facility]) Z34.93 POCT urinalysis dipstick manually resulted 4. Conceived by in vitro fertilization Z78.9 POCT urinalysis dipstick manually resulted 5. Factor 5 Leiden mutation, heterozygous ([facility]) D68.51 POCT urinalysis dipstick manually resulted 6. Insulin controlled gestational diabetes mellitus (GDM) during , antepartum ([facility]) O24.414 POCT urinalysis dipstick manually resulted [...] of: LEELEE Keita documented in this encounter [facility] 06-10-2025 Miscellaneous Notes Summary: [facility] Blood Glucose Log & Insulin Dose Change Called. No answer. Message left inquiring whether received message earlier this week regarding Eva Mccann CNM reviewed blood glucose log and increased Lantus evening dose to 29 Units daily. Requested return call or message to confirm received this insulin dose change. MyChart message also sent. documented in this encounter [facility] 06-10-2025 Telephone encounter Note Summary: [facility] Blood Glucose Log & Insulin Dose Change Called. No answer. Message left inquiring whether received message earlier this week regarding Eva Mccann CNM reviewed blood glucose log and increased Lantus evening dose to 29 Units daily. Requested return call or message to confirm received this insulin dose change. MyChart message also sent. [facility] 06-07-2025 Miscellaneous Notes Called pt to [...] for this week. documented [facility]25 Telephone encounter Note Called pt to discuss her insulin change for this week and received voicemail. Left her a message that Eva Mccann reviewed her blood sugars and would like her to increase her lantus in the evening to 29 units. Asked her to please call back to verify that she got this new insulin change for this week. [facility] 06-06-2025 History of Present illness Narrative Reason [...] Medical History: Diagnosis Date SAB (spontaneous ) ([facility]) 10/2021 HISTORY PAST MEDICAL HISTORY SOCIAL HISTORY Past Medical History: Diagnosis Date SAB (spontaneous ) ([facility]) 10/2021 Social History Tobacco Use Smoking [...] ASSESSMENT & PLAN ICD-10-CM 1. Third trimester ([facility]) Z34.93 2. 37 weeks gestation of ([facility]) Z3A.37 Return OB: Patient presents today for [...] of: LEELEE Keita documented in this encounter [facility] 05-30-2025 Miscellaneous Notes Called pt due to 3 elevations. Received voicemail. Left her a message that her numbers looked good. She had 3 elevations no pattern noted and one night she forgot her insulin. No change for this week and she will send in new blood sugars next week. [facility] 05-30-2025 Telephone encounter Note Called pt due to 3 elevations. Received voicemail. Left her a message that her numbers looked good. She had 3 elevations no pattern noted and one night she forgot her insulin. No change for this week and she will send in new blood sugars next week. [facility] 05-30-2025 History of Present illness Narrative Reason [...] Medical History: Diagnosis Date SAB (spontaneous ) ([facility]) 10/2021 HISTORY PAST MEDICAL HISTORY SOCIAL HISTORY Past Medical History: Diagnosis Date SAB (spontaneous ) ([facility]) 10/2021 Social History Tobacco Use Smoking [...] nursing note reviewed. Exam conducted with a head pumper present. Vitals: Estimated body mass index is 43.16 kg/m as calculated from the following: Height as of 04/18/25: 5' 2 . Weight as of this encounter: 236 lb. BP: 130/82 No LMP recorded. Patient is . ASSESSMENT & PLAN ICD-10-CM 1. Right otitis media, unspecified otitis media type H66.91 ofloxacin (Floxin) 0.3 % otic solution 2. Third trimester ([facility]) Z34.93 POCT urinalysis dipstick manually resulted CANCELED: CULTURE, GROUP B STREP WITH SUSCEPTIBLITY CANCELED: CULTURE, GROUP B STREP WITH SUSCEPTIBLITY 3. 36 weeks gestation of ([facility]) Z3A.36 Return OB: Patient presents today [...] doing well. Continues to transmit glucose to [facility] and no need for change in Insulin at this time. Documented by George Scherer NP on behalf of: Cain Donaldson DO documented in this encounter [facility] 05-27-2025 Hospital Discharge instructions Patient Education 05/27/2025 [...] include: ?8 oz (237 mL) of milk, ppeqanf-fwfpdcescjkv-jarps milk, and calcium-fortifiedfruit juice. Calcium-fortified means that [...] ?Spinach (cooked), rhubarb, beets, sweet potatoes, and [place] chard. ?Peanuts. ?Potato chips, syriac fries, and baked potatoes with skin on. ?Nuts and nut products. ?Chocolate. If you regularly take a diuretic medicine, make sure to eat at least 1 or 2 servings of fruits or vegetables that are high in potassium each day. These include: ?Avocado. ?Banana. ?[place], prune, carrot, or tomato juice. ?Baked potato. [...] magnesium, fish oil, or vitamin B6. Take ddrf-zda-yetvkow and prescription medicines only as told by [...] Casseroles. Pizza. Lasagna. Frozen meals. Potato chips. Kazakh fries. The items listed above may not [...] provider. Document Revised: 01/30/2023 Document Reviewed: 01/30/2023 [employer] Patient Education 2023 [employer]. Follow Up Care 05/16/2025 14:17:00 With:Jonathan GORE, ONEIDA Navarro, URO Address: When: Unknown [facility] 05-27-2025 Note Patient Education Nephrology Dietary Guidelines [...] ? 8 oz (237 mL) of milk, wvhyhhx-cyeturielkih-xnewh milk, and calcium-fortifiedfruit juice. Calcium-fortified means that [...] Spinach (cooked), rhubarb, beets, sweet potatoes, and [place] chard. ? Peanuts. ? Potato chips, syriac fries, and baked potatoes with skin on. ? Nuts and nut products. ? Chocolate. ??? If you regularly take a diuretic medicine, make sure to eat at least 1 or 2 servings of fruits or vegetables that are high in potassium each day. These include: ? Avocado. ? Banana. ? [place], prune, carrot, or tomato juice. ? Baked [...] fish oil, or vitamin B6. ??? Take iuut-gva-birrnpr and prescription medicines only as told by your health (more content not included)... [facility] 05-26-2025 History of Present illness Narrative Reason for Appointment: Patient ID: Fannie Conley is a 29 y.o. female who presents for Routine Visit Patient presents today for Return OB appointment. MEDICATIONS Current Outpatient Medications Medication Instructions Alcohol Swabs (Alcohol Prep Pad) 70 % pads 1 Pad, Topical, Daily, Use four times daily to check FSBS. Blood Glucose Monitoring Suppl ([employer] Glucometer) w/Device kit 1 kit, Does not [...] Medical History: Diagnosis Date SAB (spontaneous ) ([facility]) 10/2021 HISTORY PAST MEDICAL HISTORY SOCIAL HISTORY Past Medical History: Diagnosis Date SAB (spontaneous ) ([facility]) 10/2021 Social History Tobacco Use Smoking [...] ASSESSMENT & PLAN ICD-10-CM 1. Third trimester ([facility]) Z34.93 CULTURE, GROUP B STREP WITH SUSCEPTIBLITY CULTURE, GROUP B STREP WITH SUSCEPTIBLITY POCT urinalysis dipstick manually resulted 2. 36 weeks gestation of ([facility]) Z3A.36 Return OB: Patient presents today [...] routine OB appointment. documented in this encounter [facility] 05-23-2025 History of Present illness Narrative Maternal- Medicine Consultation VIDEO Patient is present at home, provider present at [facility] HISTORY OF PRESENT ILLNESS: Fannie Conley is [...] each meal., Disp: , Rfl: blood-glucose meter [facility], 4 (four) times a day. Use [...] route., Disp: , Rfl: lancets (LANCETS,ULTRA THIN) [facility], Use to check blood sugar 4 times daily. Fasting in the morning, and 1 hour after each meal., Disp: , Rfl: PNV no.153/FA/om3/dha/epa/fish ( [employer]ES ORAL), Take 2 tablets by mouth in the morning., Disp: , Rfl: LABS: Lab Results Component Value Date TSH 3.31 11/24/2020 No components found for: [facility] Lab Results Component Value Date CREATININE 0.73 [...] Delivery recommendations : - Recommend delivery at [id number] - Discuss delivery if estimated weight is [...] values to us weekly by e-mail to: [email or web address] or by fax to: [phone] Devika Luu PA-C Maternal- Medicine Office phone: [phone] Devika Luu PA-C 05/23/25 [id number] documented in this encounter [facility] 05-17-2025 Miscellaneous Notes Called pt to let her know that Devika Luu reviewed her blood sugars and did not want to make any changes for this week there was not pattern to change. She will stay on her 25 units of lantus in the evening for this week. Pt to send in new blood sugars next week. documented in this encounter [facility] 05-17-2025 Telephone encounter Note Called pt to let her know that Devika Lavoy reviewed her blood sugars and did not want to make any changes for this week there was not pattern to change. She will stay on her 25 units of lantus in the evening for this week. Pt to send in new blood sugars next week. [facility] 05-16-2025 History of Present illness Narrative Reason for Appointment: Patient ID: Fannie Conley is a 29 y.o. female who presents for Routine Visit Patient presents today for Return OB appointment. MEDICATIONS Current Outpatient Medications Medication Instructions Alcohol Swabs (Alcohol Prep Pad) 70 % pads 1 Pad, Topical, Daily, Use four times daily to check FSBS. Blood Glucose Monitoring Suppl ([employer] Glucometer) w/Device kit 1 kit, Does not [...] Medical History: Diagnosis Date SAB (spontaneous ) ([facility]) 10/2021 HISTORY PAST MEDICAL HISTORY SOCIAL HISTORY Past Medical History: Diagnosis Date SAB (spontaneous ) ([facility]) 10/2021 Social History Tobacco Use Smoking [...] nursing note reviewed. Exam conducted with a head pumper present. Vitals: Estimated body mass index is 43.71 kg/m as calculated from the following: Height as of 04/18/25: 5' 2 . Weight as of this encounter: 239 lb. BP: 120/70 No LMP recorded. Patient is . ASSESSMENT & PLAN ICD-10-CM 1. 34 weeks gestation of ([facility]) Z3A.34 POCT urinalysis dipstick manually resulted Urine culture 2. Third trimester ([facility]) Z34.93 POCT urinalysis dipstick manually resulted 3. Conceived by in vitro fertilization Z78.9 Urine culture 4. Factor 5 Leiden mutation, heterozygous ([facility]) D68.51 5. Insulin controlled gestational diabetes mellitus (GDM) during , antepartum ([facility]) O24.414 Patient presents today for a [...] Cain Donaldson DO documented in this encounter [facility] 05-11-2025 Miscellaneous Notes Left a voicemail regarding her blood sugar log from 05/02/25 to 05/08/25. Dr. Askew reviewed it, and there are no medication changes this week. Continue 25 units of lantus in the evening. Patient to continue sending weekly BG logs. Will send MyChart as well. documented in this encounter [facility] 05-11-2025 Telephone encounter Note Left a voicemail regarding her blood sugar log from 05/02/25 to 05/08/25. Dr. Askew reviewed it, and there are no medication changes this week. Continue 25 units of lantus in the evening. Patient to continue sending weekly BG logs. Will send MyChart as well. [facility] 05-03-2025 Miscellaneous Notes Called regarding blood sugar logs from 04/25/2025-05/01/2025, she had one elevated fasting blood sugar and two elevated blood sugars after lunch. Fannie could account for why her blood sugars were elevated after her meals. Provided encouragement. Continue to monitor carbohydrates and blood sugars. documented in this encounter [facility] 05-03-2025 Telephone encounter Note Called regarding blood sugar logs from 04/25/2025-05/01/2025, she had one elevated fasting blood sugar and two elevated blood sugars after lunch. Ashlynd could account for why her blood sugars were elevated after her meals. Provided encouragement. Continue to monitor carbohydrates and blood sugars. [facility] 05-03-2025 History of Present illness Narrative Reason for Appointment: Patient ID: Fannie Conley is a 29 y.o. female who presents for Routine Visit Patient presents today for Return OB appointment. MEDICATIONS Current Outpatient Medications Medication Instructions Alcohol Swabs (Alcohol Prep Pad) 70 % pads 1 Pad, Topical, Daily, Use four times daily to check FSBS. Blood Glucose Monitoring Suppl ([employer] Glucometer) w/Device kit 1 kit, Does not [...] Medical History: Diagnosis Date SAB (spontaneous ) ([facility]) 10/2021 HISTORY PAST MEDICAL HISTORY SOCIAL HISTORY Past Medical History: Diagnosis Date SAB (spontaneous ) ([facility]) 10/2021 Social History Tobacco Use Smoking [...] PLAN ICD-10-CM 1. size inconsistent with dates ([facility]) O26.849 US OB follow up transabdominal approach 2. Third trimester ([facility]) Z34.93 POCT urinalysis dipstick manually resulted 3. 32 weeks gestation of ([facility]) Z3A.32 4. Conceived by in vitro fertilization Z78.9 5. Factor 5 Leiden mutation, heterozygous ([facility]) D68.51 6. Insulin controlled gestational diabetes mellitus (GDM) during , antepartum ([facility]) O24.414 Return OB: Patient presents today [...] of: LEELEE Keita documented in this encounter [facility] 04-25-2025 History of Present illness Narrative Maternal- Medicine Consultation VIDEO Patient is present at home, provider present at [facility] HISTORY OF PRESENT ILLNESS: Fannie Conley is [...] on right. She is following urology through [facility]. Her pain and symptoms have improved, are [...] each meal., Disp: , Rfl: blood-glucose meter [facility], 4 (four) times a day. Use [...] route., Disp: , Rfl: lancets (LANCETS,ULTRA THIN) [facility], Use to check blood sugar 4 times daily. Fasting in the morning, and 1 hour after each meal., Disp: , Rfl: PNV no.153/FA/om3/dha/epa/fish ( GUMMIES ORAL), Take 2 tablets by mouth in the morning., Disp: , Rfl: LABS: Lab Results Component Value Date TSH 3.31 11/24/2020 No components found for: [facility] Lab Results Component Value Date CREATININE 0.73 [...] hypoglycemia, and examples of treatment of hypoglycemia (/15 rule). Discussed her current diet and her [...] Delivery recommendations : - Recommend delivery at [id number] - Discuss delivery if estimated weight is [...] values to us weekly by e-mail to: [email or web address] or by fax to: [phone] Devika Luu PA-C Maternal- Medicine Office phone: [phone] Devika Luu PA-C 04/25/25 1145 documented in this encounter [facility] 04-25-2025 Miscellaneous Notes WET ROOM SUPERVISOR CALLED PATIENT. NO ANSWER. LEFT VM ASKING THE PATIENT TO EMAIL US HER BLOOD GLUCOSE LOGS FOR HER UPCOMING APPOINTMENT WITH DEVIKA MARTINEZ. documented in this encounter [facility] 04-25-2025 Telephone encounter Note WET ROOM SUPERVISOR CALLED PATIENT. NO ANSWER. LEFT VM ASKING THE PATIENT TO EMAIL US HER BLOOD GLUCOSE LOGS FOR HER UPCOMING APPOINTMENT WITH DEVIKA TODAY. [facility] 04-20-2025 Miscellaneous Notes Left message for patient that M provider reviewed blood sugar logs and no changes are needed at this time. Call back number provided. documented in this encounter [facility] 04-20-2025 Telephone encounter Note Left message for patient that [facility] provider reviewed blood sugar logs and no changes are needed at this time. Call back number provided. [facility] 04-18-2025 History of Present illness Narrative [...] insulin syringe 29G X 1/2 0.5 mL mis Use 2 syringes in the morning for insulin dosage and 2 syringes in the Evening for insulin dosage. Total of 4 syringes daily needed. ALLERGIES No Known Allergies PROBLEMS Active Ambulatory Problems Diagnosis Date Noted No Active Ambulatory Problems Resolved Ambulatory Problems Diagnosis Date Noted No Resolved Ambulatory Problems Past Medical History: Diagnosis Date SAB (spontaneous ) ([facility]) 10/2021 HISTORY PAST MEDICAL HISTORY SOCIAL HISTORY Past Medical History: Diagnosis Date SAB (spontaneous ) ([facility]) 10/2021 Social History Tobacco Use Smoking [...] nursing note reviewed. Exam conducted with a head pumper present. Vitals: There is no height or weight on file to calculate BMI. BP: No LMP recorded. Patient is . ASSESSMENT & PLAN ICD-10-CM 1. Third trimester ([facility]) Z34.93 2. 30 weeks gestation of ([facility]) Z3A.30 Return OB: Patient presents today [...] Cain Donaldson DO documented in this encounter [facility] 04-12-2025 Miscellaneous Notes Called pt to discuss her insulin change. Devika Luu reviewed her blood sugars and would like her to increase her lantus in the evening to 25 units. Pt verbalized understanding and will start tonight. She will send in new blood sugars next week. documented in this encounter [facility] 04-12-2025 Telephone encounter Note Called pt to discuss her insulin change. Devika Luu reviewed her blood sugars and would like her to increase her lantus in the evening to 25 units. Pt verbalized understanding and will start tonight. She will send in new blood sugars next week. [facility] 04-11-2025 History of Present illness Narrative BG levels evaluated - insulin adjusted Devika Luu PA-C 04/11/25 1234 documented in this encounter [facility] 03-30-2025 History of Present illness Narrative REASON FOR OFFICE VISIT: Video Visit via Real-time Synchronous Audiovisual Provider Location: [facility] AT [address] [address] Patient Location: Patient's home Video [...] that there are some limitations compared to [id number]-tw-[id number] evaluations. The patient consented to the presence [...] pain. +FM. She is being followed at [facility] due to GDMA2. States she [...] each meal., Disp: , Rfl: blood-glucose meter [facility], 4 (four) times a day. Use [...] TSH 3.31 11/24/2020 No results found for: [id number] Lab Results Component Value Date CREATININE 0.73 [...] values to us weekly by e-mail to: [email or web address] or by fax to: [phone] TIME OF CONSULTATION: 15 minutes with the patient, >50% in discussion and counseling, coordination of care which was [id number], review of records and communication back to referring provider. HOWARD Whitman 03/30/25 1344 documented in this encounter [facility] 03-30-2025 History of Present illness Narrative [...] appointment. Patient continues to follow closely with [facility] and has telehealth visit today to review glucose logs. She continues on Lantus and doing well. No complaints today. Given orders for NST/BPP and has scheduled growth ultrasound with [facility]. Will obtain Hgb / hematocrit and platelets today. Documented by George Scherer NP on behalf of: George Scherer NP documented in this encounter [facility] 03-22-2025 Miscellaneous Notes Called pt and left [...] sugars next week. documented in this encounter [facility] 03-22-2025 Telephone encounter Note Called pt [...] send in new blood sugars next week. [facility] 03-16-2025 Miscellaneous Notes Received BG results and all but 4 are in target range. No pattern noted. Called and left message of praise for all efforts and to call if questions. To send next week again. No changes. Continue your current insulin dose for this week. documented in this encounter [facility] 03-16-2025 Telephone encounter Note Received BG results and all but 4 are in target range. No pattern noted. Called and left message of praise for all efforts and to call if questions. To send next week again. No changes. Continue your current insulin dose for this week. [facility] 03-11-2025 Miscellaneous Notes Summary: [facility] Blood Glucose Log & Insulin Dose Change Called and spoke with Merna who did receive message from early this week about BG log reviewed and increased Lantus evening dose to 19 Units daily. Apologized for not returning call noting life has been busy, hectic with foster placement. Denied any questions. documented in this encounter [facility] 03-11-2025 Telephone encounter Note Summary: [facility] Blood Glucose Log & Insulin Dose Change Called and spoke with Merna who did receive message from early this week about BG log reviewed and increased Lantus evening dose to 19 Units daily. Apologized for not returning call noting life has been busy, hectic with foster infant placement. Denied any questions. [facility] Work Phone: 03-07-2025 Miscellaneous Notes Called pt [...] for this week. documented in this encounter [facility] 03-07-2025 Telephone encounter Note Called pt to discuss her insulin change for this week and received voicemail. Left her a message that Dr Wade reviewed her blood sugars and would like her to increase her lantus in the evening to 19 units. Asked her to please call back to verify she got this new insulin change for this week. [facility] History of Present illness Narrative Reason [...] urine order. [facility]. Patient voiced that insulin was just increased to 17 units at [facility] yesterday. Patient to return to clinic 4 weeks for routine OB. Documented by Bee Parkinson LPN on behalf of: Cain Donaldson DO documented in this encounter [facility] 03-01-2025 Miscellaneous Notes Called and notified patient that Pat MCKOY reviewed her blood sugar log and would like her to increase her Lantus to 17 units in the evening. Encouraged patient to write down what she is eating when having elevations greater than 140. Patient verbalized understanding. documented in this encounter [facility] 03-01-2025 Telephone encounter Note Called and notified patient that Pat MCKOY reviewed her blood sugar log and would like her to increase her Lantus to 17 units in the evening. Encouraged patient to write down what she is eating when having elevations greater than 140. Patient verbalized understanding. [facility] 02-24-2025 History of Present illness Narrative REASON FOR OFFICE VISIT: Video Visit via Real-time Synchronous Audiovisual Provider Location: [facility] AT [address] [id number] Patient Location: Patient's home Video Visit Consent [...] that there are some limitations compared to [id number] evaluations. The patient consented to the presence [...] chest pain. She is being followed at [facility] due to GDMA2. States she is following [...] each meal., Disp: , Rfl: blood-glucose meter [facility], 4 (four) times a day. Use [...] route., Disp: , Rfl: lancets (LANCETS,ULTRA THIN) [facility], Use to check blood sugar 4 times daily. Fasting in the morning, and 1 hour after each meal., Disp: , Rfl: PNV no.153/FA/om3/dha/epa/fish ( GUMMIES ORAL), Take 2 tablets by mouth in the morning., Disp: , Rfl: LABS: Lab Results Component Value Date CREATININE 0.73 01/06/2016 Lab Results Component Value Date TSH 3.31 11/24/2020 No results found for: [id number] Lab Results Component Value Date CREATININE 0.73 [...] values to us weekly by e-mail to: [email or web address] or by fax to: [phone] TIME OF CONSULTATION: 25 minutes with the patient, >50% in discussion and counseling, coordination of care which was [id number], review of records and communication back to referring provider. HOWARD Whitman 02/24/25 1333 [facility] 02-17-2025 Miscellaneous Notes Notified patient by phone of low risk CFDNA results. My direct phone number was given in case any questions arise. documented in this encounter [facility] 02-17-2025 Telephone encounter Note Notified patient by phone of low risk CFDNA results. My direct phone number was given in case any questions arise. [facility] 02-15-2025 Miscellaneous Notes Called and spoke with patient regarding blood sugar log. Noted 6 elevations after insulin change to Lantus last week- 3 fastings and 3 PP (1 was 140). Patient reports last 2 days fasting was 85 and 93. Continues to try dietary changes. Encouraged patient to send in another log next week. documented in this encounter [facility] 02-15-2025 Telephone encounter Note Called and spoke with patient regarding blood sugar log. Noted 6 elevations after insulin change to Lantus last week- 3 fastings and 3 PP (1 was 140). Patient reports last 2 days fasting was 85 and 93. Continues to try dietary changes. Encouraged patient to send in another log next week. [facility] 02-08-2025 History of Present illness Narrative [...] clinic Have you been seen here at [facility] in a previous ? No Recent ER visits or hospitalizations? No Bring blood sugar log or meter with you today? (Please bring them with you for every visit at [facility]) N/A Flu vaccine (Sep-January)? Any concerns [...] 5day embryo transfer on 10/07/2024, JANIYA 06/25/2025. 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) SURGICAL HISTORY: Past Surgical History: Procedure [...] each meal., Disp: , Rfl: blood-glucose meter [facility], 4 (four) times a day. Use [...] route., Disp: , Rfl: lancets (LANCETS,ULTRA THIN) [facility], Use to check blood sugar 4 [...] TESTS AND ULTRASOUND REPORTS: Referral records and [facility] chart were reviewed Pertinent Ultrasound findings [...] overall, although a single choroid plexus cyst (WIRELINE OPERATOR) is visualized. We discussed this finding. [...] send in blood glucose logs weekly to [facility] Recommend baseline HELLP labs including CBC, CMP, urine protein creatinine ratio, through primary OB Incomplete level 2 anatomy ultrasound echocardiogram, attempt completion in 4 weeks with [facility] Recommend growth ultrasounds every 4 weeks following completion of level 2 anatomy ultrasound, through primary OB Recommend twice weekly testing starting at 32 weeks gestation, through primary OB Delivery recommendations : Recommend delivery at [id number] Discuss delivery if estimated weight is >4500g [...] developing diabetes later on. Monitor for depression [facility] office follow up already scheduled in 3 weeks DISPOSITION: At this point the patient is in complete care of her caretaker grounds. Patient does have ultrasound and office visit [...] Referring and communicating with other health healthcare applications analyst (not separately reported) Documenting clinical information in the electronic or other health record Jaida Chadwick MD Maternal- Medicine [facility] [address] [place] [address] [facility], the CDC, and other organizations representing maternal and public health professionals recommend that , , and lactating people and those considering receive the COVID-19 vaccination. Vaccination is the best method to reduce maternal and complications of SARS-CoV-2 infection. This document was created with [employer] technology. Though I make every effort to review the dictation as it is transcribed, on occasion the spoken word can be misinterpreted by the technology leading to inappropriate words, phrases, or sentences. This note is addressed to the requesting provider as a consultation for clinical guidance. Specific medical abbreviations are occasionally used and those are generally approved by the [place]?Board of?Obstetrics and?Gynecology?as well as?Shaji s abbreviations. The above plan of care was based solely on the diagnoses for which a consultation was requested. ?More frequent testing may be indicated based on her other medical/obstetrical conditions. The management of other or medical conditions is beyond the scope of requested consultation and will continue to be followed by the primary caretaker grounds or primary care provider. Note to patient: [...] Patient tolerated well. documented in this encounter [facility] 02-03-2025 Miscellaneous Notes Received call from Nurse at Dr Donaldson's office who states they do not have any records of genetic testing. Cylinder Tester places call to Dr Krishnan's office at [facility] to inquire if they have any records of genetic testing for this - they also do not have any record of genetic testing. documented in this encounter [facility] 02-03-2025 Telephone encounter Note Received call from Nurse at Dr Donaldson's office who states they do not have any records of genetic testing. Cylinder Tester places call to Dr Krishnan's office at [facility] to inquire if they have any records of genetic testing for this - they also do not have any record of genetic testing. [facility] 02-03-2025 Miscellaneous Notes Left voicemail for BELA Gamboa at Dr Donaldson's office requesting genetic testing that was completed prior to IVF be faxed over to my attention. documented in this encounter [facility] 02-03-2025 Telephone encounter Note Left voicemail for BELA Gamboa at Dr Donaldson's office requesting genetic testing that was completed prior to IVF be faxed over to my attention. [facility] 01-26-2025 History of Present illness Narrative [...] YES Have you been seen here at [facility] in a previous ? NO Recent ER visits or hospitalizations? NO Bring blood sugar log or meter with you today? (Please bring them with you for every visit at [facility]) YES, SEE LOGS. Flu vaccine (Sep-January)? [...] pain. +FM. She is being followed at [facility] due to GDMA2. States she [...] each meal., Disp: , Rfl: blood-glucose meter mis, 4 (four) times a day. Use to [...] TSH 3.31 11/24/2020 No results found for: [id number] Lab Results Component Value Date CREATININE 0.73 [...] baby. Little research has been done on fpc effects of Metformin exposure to the fetus. [...] values to us weekly by e-mail to: [email or web address] or by fax to: [phone] TIME OF CONSULTATION: 35 minutes with the patient, >50% in discussion and counseling, coordination of care which was [id number], review of records and communication back to referring provider. HOWARD Whitman 01/26/25 1606 documented in this encounter [facility] 01-26-2025 History of Present illness Narrative Nutritional Assessment Form Date: 01/26/2025 JANIYA: Estimated Date of Delivery: 06/24/25 EGA: 18w5d Past Medical History: Diagnosis Date Depression [place] product of in vitro fertilization (IVF) 2024 Suicide attempt (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 Current Exercise program walking Who prepares the meal pt Who purchase food at your home? pt Equipment use for cooking/food storage has all Food Assistance(Ex.WIC, Food [place]) knows about Dining out Yes 1-2 times [...] care for you: OB Provider Family Doctor Electric Arc Furnace Operator Name: Mendoza Name: No primary care provider [...] syringe by miscellaneous route. lancets ([facility]ANCETS,ULTRA THIN) [facility] Use to check blood sugar 4 times [...] demonstration Is there anything about your culture, nondenominational, or personal beliefs we need to know about to care for you: none Primary Language spoken: Cuban [22] Primary Language for learning: Cuban Are you currently in a relationship where you are physically hurt, threatened or made to fee afraid? [] Yes [x] No Salesperson [employer] needed? [] Yes [x] No Marital status/Living [...] If yes, where: On thge following scale, tolowa dee-ni' the number, which describes your current level [...] use to treat your low blood sugars? Protein pam Conley was seen today and diabetes education was [...] was 60min. . documented in this encounter [facility] 01-26-2025 Instructions Sonya Lomax RN - [...] HOURS WHILE AWAKE documented in this encounter [facility] 01-20-2025 History of Present illness Narrative Reason for Appointment: Patient ID: Fannie Conley is a 29 y.o. female who presents for Routine Visit Patient presents today for Return OB appointment. MEDICATIONS Current Outpatient Medications Medication Instructions Alcohol Swabs (Alcohol Prep Pad) 70 % pads 1 Pad, Topical, Daily, Use four times daily to check FSBS. Blood Glucose Monitoring Suppl ([employer] Glucometer) w/Device kit 1 kit, Does not [...] nursing note reviewed. Exam conducted with a head pumper present. Vitals: There is no height or [...] of: LEELEE Keita documented in this encounter [facility] 12-29-2024 Miscellaneous Notes I left a message for pt to call to schedule her us/ and consult, I will call her again documented in this encounter [facility] 12-29-2024 Telephone encounter Note I left a message for pt to call to schedule her us/ and consult, I will call her again [facility] [employer] [facility] 12-23-2024 History of Present illness Narrative [...] nursing note reviewed. Exam conducted with a head pumper present. Vitals: There is no height or [...] or undercooked meat, and stay away from [facility]. Patient has been consulted regarding any further do's and don'ts of . Patient voiced understanding and all questions and concerns were answered. Patient has done 4 rounds of invitro to conceive this . 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 Patient will be referred to [facility] and can discuss medication at that [...] Cain Donaldson DO documented in this encounter [facility] 11-25-2024 History of Present illness Narrative Reason [...] or undercooked meat, and stay away from [facility]. Patient has also been advised to not change litter boxes and eat 6 small meals a day. Patient has been consulted regarding the do's and don'ts of . Patient was given labs and all questions and concerns were answered. Pt declined the [employer] gender/genetics form. Pt did state she is [...] Date:11/25/2025 09:00:00 AM Scheduled Provider:Aissatou Castillo MD Location:[facility] Appointment Type:URO Office Visit [facility] Evaluation note No assessment inform ation available [facility] Work Phone: Evaluation note Diagnosis Missed menses 9 weeks gestation of , unspecified gestational age Encounter for supervision of normal first in first trimester documented in this encounter [facility] HealthcareEvaluation note* Diagnosis Second trimester state, incidental 13 weeks gestation of Gestational diabetes mellitus (GDM), antepartum, gestational diabetes method of control unspecified Elevated glucose tolerance test Impaired glucose tolerance test resulting from in vitro fertilization, antepartum documented in this encounter [facility] HealthcareEvaluation note* Diagnosis Well woman exam with routine gynecological exam Routine gynecological examination 17 weeks gestation of Second trimester state, incidental Exposure to STD Vaginal discharge Leukorrhea, not specified as infective documented in this encounter [facility] HealthcareEvaluation note* Diagnosis Insulin controlled gestational diabetes mellitus (GDM) in second trimester- Primary documented in this encounter [facility]* Diagnosis Insulin controlled gestational diabetes mellitus (GDM) in second trimester documented in this encounter [facility]* Diagnosis Insulin controlled gestational diabetes mellitus (GDM) in second trimester- Primary Prediabetes in mother during 20 weeks gestation of Choroid plexus cyst of fetus affecting care of mother, antepartum, single or unspecified fetus Heterozygous factor V Leiden affecting in second trimester, antepartum Severe obesity due to excess calories affecting , antepartum ([facility]) Bipolar disorder, in full remission, most recent episode depressed documented in this encounter [facility]* Diagnosis Insulin controlled gestational diabetes mellitus (GDM) in second trimester- Primary Choroid plexus cyst of fetus affecting care of mother, antepartum, single or unspecified fetus Heterozygous factor V Leiden affecting in second trimester, antepartum Severe obesity due to excess calories affecting , antepartum ([facility]) documented in this encounter [facility]* Diagnosis Insulin controlled gestational diabetes mellitus (GDM) in second trimester- Primary Recurrent major depressive disorder, in partial remission Bipolar 1 disorder ([facility]) Prediabetes in mother during documented in this encounter [facility]* Diagnosis Insulin controlled gestational diabetes mellitus (GDM) in second trimester Prediabetes in mother during documented in this encounter [facility]* Diagnosis 23 weeks gestation of Second trimester state, incidental induced hypertension, antepartum Transient hypertension of , antepartum Insulin controlled gestational diabetes mellitus (GDM) during , antepartum [facility] [...] in mother during documented in this encounter [facility]* Diagnosis Insulin controlled gestational diabetes mellitus (GDM) in second trimester Prediabetes in mother during [facility]* Diagnosis Third trimester (HHS-HCC) state, incidental 30 weeks gestation of (HHS-HCC) [facility]* Diagnosis Insulin controlled gestational diabetes mellitus (GDM) in third trimester- Primary documented in this encounter [facility]* Diagnosis size inconsistent with dates (HHS-HCC)- Primary Third trimester (HHS-HCC) state, incidental 32 weeks gestation of (HHS-HCC) Conceived by in vitro fertilization Factor 5 Leiden mutation, heterozygous (HHS-HCC) Insulin controlled gestational diabetes mellitus (GDM) during , antepartum (HHS-HCC) [facility] Diagnosis Insulin controlled gestational diabetes mellitus (GDM) in second trimester- Primary documented in this encounter [facility]* Diagnosis Insulin controlled gestational diabetes mellitus (GDM) in second trimester- Primary documented in this encounter [facility]* Diagnosis 34 weeks gestation of [...] third trimester- Primary documented in this encounter [facility]* Diagnosis Third trimester (HHS-HCC) state, [...] available for this section [facility] InstructionsNot on filedocumented in this encounter [facility] Health SystemInstructionsNot on filedocumented in this encounter [facility] note No data available for this section [facility] Chief Complaint and Reason for Visit Chief [...] and content) DATE CREATED AUTHOR 04/18/2024 [facility] DATE CREATED AUTHOR AUTHOR'S ORGANIZ ATION 03/11/2025 [facility] DATE CREATED AUTHOR AUTHOR'S ORGANIZ ATION 04/16/2025 [facility] DATE CREATED AUTHOR AUTHOR'S ORGANIZ ATION 05/25/[address] [facility] DATE CREATED AUTHOR AUTHOR'S ORGANIZ ATION 05/29/2025 [facility] DATE CREATED AUTHOR AUTHOR'S ORGANIZ ATION 06/05/2025 [facility] DATE CREATED AUTHOR AUTHOR'S ORGANIZ ATION 06/17/2025 [facility] EPIC Reason for Visit (unrecogniz ed section and content) Reason Comments Amenorrhea Reason Comments Routine Visit Reason Comments Gestational Diabetes Specialty Diagnoses / Procedures Referred By Otis may Referred To Contact Maternal and Medicine Diagnoses Insulin controlled gestational diabetes mellitus (GDM) in second trimester Cain Donaldson DO Phone: tel: fax: [facility] [address] [place] [address] Phone: tel: fax: Referral ID Status Reason Start Date Expiration Date Visits Requested Visits Authorized [id number] Pending Review Specialty Services Required 01/11/2025 01/11/2026 [...] BE BASED ON THE PRIMARY CLINICAL RECORDS. [facility]. provides no warranty or guarantee of the accuracy or completeness of information in this document.
[2025-06-21 05:56] LABS: Hematocrit 31.7 % (36.0-48.0); Hemoglobin 10.8 g/dL (12.0-16.0); Mean Corpuscular HGB Conc 34.1 g/dL (29.9-35.2); Mean Corpuscular Hemoglobin 28.6 pg (26.7-34.0); Mean Corpuscular Volume 84.1 fL (81.0-99.0); Platelet Count 161 10^3/uL (150-450); Red Blood Count 3.77 10^6/uL (4.20-5.40); White Blood Count 6.8 10^3/uL (4.0-11.0)
[2025-06-21] MEDS: 0.9 % SODIUM CHLORIDE 1,000 ML 125 ML IV ×3 (06:09→16:07)
[2025-06-21 06:11] LABS: Cannabinoid Screen Urine NEGATIVE (NEGATIVE); Methamphetamines Screen Urine NEGATIVE (NEGATIVE); Tricyclic Antidepressant Urine NEGATIVE (NEGATIVE)
[2025-06-21] MEDS: OXYTOCIN/0.9 % SODIUM CHLORIDE 10 UNITS/500 ML PLAST..BAG 6 UNIT IV (07:00)
[2025-06-21] MEDS: ROPIVACAINE HCL/PF 400 MG/200 ML PREMIX 10 MG EPIDURAL (15:45)
[2025-06-21] MEDS: OXYTOCIN/0.9 % SODIUM CHLORIDE 10 UNITS/500 ML PLAST..BAG 60 UNIT IV (18:21)
[2025-06-22] VITALS (104 sets, daily range): BP systolic 110–180; BP diastolic 46–95; PULSE 77–122; TEMP 36.2–37.2; O2SAT 97–99
[2025-06-22] MEDS: 0.9 % SODIUM CHLORIDE 1,000 ML 125 ML IV ×2 (00:16→13:24)
[2025-06-22] MEDS: OXYTOCIN/0.9 % SODIUM CHLORIDE 10 UNITS/500 ML PLAST..BAG 60 UNIT IV ×2 (02:50→11:35)
[2025-06-22] MEDS: ROPIVACAINE HCL/PF 400 MG/200 ML PREMIX 10 MG EPIDURAL (04:29)
[2025-06-22] MEDS: AMPICILLIN SODIUM 2,000 MG in 0.9 % SODIUM CHLORIDE 100 ML 200 MG IV (09:55)
[2025-06-22] MEDS: FAMOTIDINE/PF 20 MG/2 ML VIAL IV (13:24)
[2025-06-22] MEDS: CITRIC ACID/SODIUM CITRATE 30 ML SOLUTION ORACIT SHOHL'S SOLN PO (13:24)
[2025-06-22] MEDS: CEFAZOLIN SODIUM/DEXTROSE,ISO 2 GM/50 ML PIGGYBACK IV ×2 (13:24→18:42)
[2025-06-22] MEDS: METOCLOPRAMIDE HCL 10 MG/2 ML VIAL IVP (13:24)
--- NOTE | 2025-06-22 14:34 | P.ON_ITS ---
Brief Operative Note Date of procedure: 06/22/25 Pre-op diagnosis general: iup at term gestation, failure to descend, gdma2 Post-op diagnosis: same as pre-op Procedure: NAME OF PROCEDURE: [ section ] PROCEDURE: Patient was taken back to the Operating Room where she was given a spinal anesthesia with Duramorph without difficulty. She was prepped and draped in the normal sterile fashion. A Pfannenstiel skin incision was then made 2 cm above the symphysis pubis and carried down to underlying rectus fascia using a Bovie. The fascia was incised in the midline and extended laterally using Albarran scissors. Two Antoine clamps were placed on the superior aspect of the fascia and dissected off the underlying rectus muscles. The same was performed on the inferior aspect as well. The muscles were then in the midline. Pe ritoneum was identified and entered bluntly. The peritoneum was then extended superiorly and inferiorly with good visualization of the bladder. The bladder blade was inserted. A low transverse incision was made on the patient's uterus and extended laterally digitally. The was then delivered atraumatically after the bladder blade was removed in the cephalic position. The cord was clamped and cut. Cord blood was obtained. The infant was handed off to awaiting team. The patient's placenta was spontaneously delivered. The uterus was then exteriorized. The uterus was cleared of all clots and debris. The bladder blade was reinserted. The patient's uterine incision was closed using #0 Vicryl in a running lock fashion. Excellent hemostasis was assured. The uterus was then returned to the patient's abdomen. The patient's abdomen was copiously irrigated using warm saline. Peritoneal gutters were cleared of all clots and debris. Again excellent hemostasis was assured. The patient's peritoneum was closed using 3-0 Vicryl in a running fashion. The patient's fascia was closed using #0 Vicryl in a running fashion. The patient's skin was closed using 4-0 Vicryl subcuticularly. The patient tolerated the procedure well. Sponge, lap, and needle counts were correct x2. The patient was taken to the Recovery Room in stable condition. Anesthesia: epidural Surgeon: Cain Donaldson Narrow Gauge Engineer: Mary Cohen Estimated blood loss (mL): 575 Pathology: none sent Condition: stable Disposition: floor Urinary Catheter Management Urinary Catheter Management Urethral: Cath placed during this visit: no
--- NOTE | 2025-06-22 14:34 | PM.OBPRCCS ---
Procedure Pre-op/Post-op diagnoses: Pre-Op/Post-Op Diagnoses Operation Date: 06/22/25 13:30 <No data on this case meets the specified criteria> Procedure: Procedures Operation Date: 06/22/25 13:30 Actual Procedure Side Surgeon p Not Applicable Cain Donaldson DO Electrocardiographic Technician: Mary Cohen Estimated blood loss (mL): 575 Disposition: floor Anesthesia type: Epidural
[2025-06-22] MEDS: KETOROLAC TROMETHAMINE 30 MG/ML VIAL IVP (20:59)
[2025-06-23] VITALS (8 sets, daily range): BP systolic 121–139; BP diastolic 67–74; PULSE 83–96; TEMP 36.1–37; O2SAT 97
[2025-06-23] MEDS: ENOXAPARIN SODIUM 40 MG/0.4 ML SYRINGE SUBQ (01:49)
[2025-06-23] MEDS: KETOROLAC TROMETHAMINE 30 MG/ML VIAL IVP ×3 (05:12→18:05)
[2025-06-23 06:18] LABS: Hematocrit 24.5 % (36.0-48.0); Hemoglobin 8.3 g/dL (12.0-16.0); Immature Granulocytes Abs Auto 0.05 10^3/uL (0.00-0.03); Immature Granulocytes Pct Auto 0.5 % (0.0-0.5); Lymphocytes Absolute Auto 1.1 10^3/uL (1.2-3.8); Mean Corpuscular HGB Conc 33.9 g/dL (29.9-35.2); Mean Corpuscular Hemoglobin 29.0 pg (26.7-34.0); Mean Corpuscular Volume 85.7 fL (81.0-99.0); Platelet Count 141 10^3/uL (150-450); Red Blood Count 2.86 10^6/uL (4.20-5.40); White Blood Count 10.2 10^3/uL (4.0-11.0)
--- NOTE | 2025-06-23 09:03 | PM.OBPN ---
OB - PN: Subj Subjective Patient comments: no complaints Ignacio status: doing well Ignacio feeding status: exclusively Exam Constitutional Vital Signs, click to edit/add: Last Vital Signs Temp 98.5 F 06/23/25 05:15 Pulse 96 H 06/23/25 07:30 Resp 16 06/23/25 05:15 BP 139/74 06/23/25 07:30 Pulse Ox 97 06/23/25 05:15 O2 Del Method Room Air 06/23/25 07:48 Common normals: no apparent distress Orientation/consciousness: Yes awake, Yes oriented to person, Yes oriented to place and Yes oriented to time HENMT Common normals: normocephalic Eye Common normals: EOMs intact bilaterally Neck & C-Spine Common normals: full ROM Lymph Lymphatic: no lymphadenopathy noted Chest Common normals: inspection of chest normal Respiratory Common normals: normal respiratory effort Effort & inspection: able to speak in complete sentences Auscultation: clear to auscultation bilaterally Cardio Common normals: regular rate and regular rhythm Rate: regular rate Rhythm: regular rhythm GI Inspection: normal to inspection Auscultation: normoactive bowel sounds Palpation: soft Common normals: no CVA tenderness Back & Pelvis Common normals: no CVA tenderness Extremity Common normals: normal to inspection Neuro Common normals: oriented x3 Sensorium/orientation: awake, alert, oriented to person, oriented to place and oriented to time Psych Common normals: mental status grossly normal, thought process normal, cooperative, affect normal, speech normal, activity/motor behavior normal, denies hallucinations, denies homicidal ideation and denies suicidal ideation Attitude: calm Results Labs Labs: Short CBC 06/23/25 Range/Units 06:04 WBC 10.2 (4.0-11.0) 10^3/uL Hgb 8.3 L (12.0-16.0) g/dL Hct 24.5 L (36.0-48.0) % Plt Count 141 L (150-450) 10^3/uL Urinary Catheter Management Urinary Catheter Management Urethral: Cath placed during this visit: yes, but has since been removed by the nurse Urethral indwelling: No Removal date: 06/23/25 Removal time: 01:45 OB - PN: A/P Assessment and Plan (1) Term : Plan - Plan: routine postop care Plan - Vaginal Delivery day: 1 Plan: routine care Time Spent with Patient Time: Total time spent is greater than 50% in coordination of care (as documented) at patient's floor/unit and/or counseling patient: Total time spent with greater than 50% in coordination of care (as documented) at patient's floor/unit and/or counseling patient: less than 15 minutes
[2025-06-23] MEDS: DOCUSATE SODIUM 100 MG CAPSULE PO (11:59)
[2025-06-24] VITALS (7 sets, daily range): BP systolic 150–177; BP diastolic 71–87; PULSE 68–80; TEMP 36.7–36.8
[2025-06-24] MEDS: KETOROLAC TROMETHAMINE 30 MG/ML VIAL IVP ×2 (00:40→08:12)
[2025-06-24] MEDS: ENOXAPARIN SODIUM 40 MG/0.4 ML SYRINGE SUBQ (03:33)
[2025-06-24] MEDS: DOCUSATE SODIUM 100 MG CAPSULE PO (08:12)
--- NOTE | 2025-06-24 10:41 | P.OBPN_ITS ---
OB - PN: Subj Subjective Patient comments: no complaints and pain well controlled [place] status: doing well Exam Constitutional Vital Signs, click to edit/add: Last Vital Signs Temp 98.2 F 06/24/25 08:15 Pulse 68 06/24/25 08:39 Resp 18 06/24/25 08:15 BP 156/80 H 06/24/25 08:39 Pulse Ox 97 06/23/25 16:10 O2 Del Method Room Air 06/24/25 08:15 Documenting provider has reviewed patient's vital signs: yes Common normals: no apparent distress Respiratory Common normals: normal respiratory effort and clear to auscultation bilaterally Cardio Common normals: regular rate and regular rhythm GI Common normals: Normal to inspection, nondistended, normoactive bowel sounds present Extremity Common normals: no clubbing, cyanosis or edema and no calf tenderness Urinary Catheter Management Urinary Catheter Management Urethral: Cath placed during this visit: yes, but has since been removed by the nurse Urethral indwelling: No Removal date: 06/23/25 Removal time: 01:45 OB - PN: A/P Assessment and Plan (1) Term : Plan - day: 2 Plan: routine postop care Time Spent with Patient Time: Total time spent is greater than 50% in coordination of care (as documented) at patient's floor/unit and/or counseling patient: Total time spent with greater than 50% in coordination of care (as documented) at patient's floor/unit and/or counseling patient: less than 15 minutes
[2025-06-24] MEDS: LABETALOL HCL 100 MG TABLET 200 MG PO (11:23)
--- NOTE | 2025-06-25 12:40 | PC.NURSE ---
pt present for repeat BP after starting Labetalol 200mg po BID. Pt states she currently took at 0900 today. BP 151/93 P 73pt denies any MATA, visual changes or disturbances, abdominal pain, SOB. pt states she feels fine and just wants to go home. Dr Donaldson notified of pts BP and that it is close to what her BP's where at discharge. Dr donaldson calling in a prescription to pts pharmacy for and additional 100mg Labetalol po for pt to add to te current 200mg po LABETALOL dose and take BID. pt and spouse educated and verbalize understanding, pt to return on Friday at 1530 for follow up and to have BP checked. pt and spouse educated if any concerns or not feeling well to return to hospital for care.
== END 2025-06-24 15:20 | disposition home or self-care (01) | DRG 787 ==
PROVIDERS: Admitting Provider Obstetrics & Gynecology; Visit Provider Obstetrics & Gynecology
PROC: 10D00Z1 Extraction of Products of Conception, Low, Open Approach (ICD-10-PCS; CPT 59514; principal; 2025-06-22 13:30)
DX: O24.424 Gestational diabetes mellitus in childbirth, insulin controlled (principal); D68.51 Activated protein C resistance; O99.12 Other diseases of the blood and blood-forming organs and certain disorders involving the immune mechanism complicating childbirth; O32.4XX0 Maternal care for high head at term, not applicable or unspecified; Z3A.39 39 weeks gestation of pregnancy; Z37.0 Single live birth
CPT/HCPCS: 36415; 51702; 59050; 59410; 80307; 82948; 85025; 85027; 86850; 86900; 86901; 88307; 94667; J0290; J0665; J0690; J1650; J1885; J2274; J2405; J2590; J2765; J2795; J3010; J3490

== ENCOUNTER 2025-06-27 08:30 | Outpatient (OUT) | payer BC, SELFPAY ==
--- OUTSIDE RECORDS SUMMARY | 2025-01-21 11:10 | XMS_ITS | Continuity of Care Document ---
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 [address] [place] [address], [id number] , [place]. tel: [phone] [facility], [address] [place] [address], [id number] , [place] tel: [phone] [facility] Encounter for screening for respiratory tuberculosis 5 Visci DO Miguel. [address] [place] [address], [id number] , [place]. tel:[phone] [facility], [address] [place] [address], [id number] , [place] tel: [phone] [facility] No Information 4 Visci DO Miguel. [address] [place] [address], [id number] , [place]. tel: [phone] [facility], [address] [place] [address], [id number] , [place] tel:+ [phone] [facility] Lab Draw (chief complaint) Other specified disorders of pancreatic internal secretionSubclinical iodine-deficiency hypothyroidismEncount er for screening for other viral diseasesEncounter for screening for other infectious disease 4 Cynthia White. [address], [place], 889336133 , [place]. tel: [phone] [facility], [address], [place], 564454960 , [place] tel: [phone] [facility] lab draw (chief complaint) Encounter for screening for other viral diseases 4 Cynthia White. [address], [place], 988934087 , [place]. tel: [phone] [facility], [address], [place], 356577613 , [place] tel: [phone] [facility] No Information 4 Cynthia White. [address], [place], 449790856 , [place]. tel: [phone] [facility], [address], 466847156 , [place] tel: [phone] [facility] Encounter for screening for respiratory tuberculosis 4 Cynthia White. [address], [place], 145964295 , [place]. tel: [phone] [facility], [address], [place], 109227388 , [place] tel: [phone] [facility] Lab draw (chief complaint) Blood test prior to procedure 4 Cynthia White. [address], [place], 735716616 , [place]. tel: [phone] Referring Provider: Tenisha Leon MA. [facility], [address], [place], 710858977 , [place] tel: [phone] [facility] No Information 3 Cynthia White. [address], [place], 503141882 , [place]. tel: [phone] [facility], [address], [place], 615078664 , [place] tel: [phone] [facility] COVID Test (chief complaint) Encounter for screening for COVID-19 3 Cynthia White. [address], [place], 774612690 , [place]. tel: [phone] [facility], [address], [place], 253226631 , [place] tel: [phone] [facility] Lab Draw (chief complaint) Encounter for antibody response examination 3 Cynthia White. [address], [place], [id number] , [place]. tel: [phone] [facility], [address] [place] [address], [id number] , [place] tel: [phone] [facility] lab (chief complaint) Other specified disorders of pancreatic internal secretion 3 Cynthia White. [address], [place], 694965719 , [place]. tel: [phone] [facility], [address] [place] [address], [id number] , [place] tel: [phone] [facility] Lab draw (chief complaint) Blood test prior to procedure 3 Cynthia White. [address], [place], 026826511 , [place]. tel: [phone] [facility], [address] [place] [address], [id number] , [place] tel: [phone] [facility] lab draw (chief complaint) Endocrine disorder 3 Cynthia White. [address], [place], 353981364 , [place]. tel: [phone] [facility], [address] [place] [address], [id number] , [place] tel: [phone] [facility] Encounter for screening for COVID-19 3 Visci DO Miguel. [address], [place], 415284447 , [place]. tel: [phone] [facility], [address], [place], 389833775 , [place] tel: [phone] [facility] Lab draw (chief complaint) Blood test prior to procedureEncounter for screening for COVID-19 3 Visci DO Miguel. [address], [place], 270412724 , [place]. tel: [phone] [facility], [address], [place], 767360806 , [place] tel: [phone] [facility] No Information 3 Visci DO Miguel. [address], [place], 301551655 , [place]. tel: [phone] [facility], [address], [place], 539952806 , [place] tel: [phone] [facility] No Information 3 Visci DO Miguel. [address], [place], 477016998 , [place]. tel: [phone] [facility], [address], [place], 279445909 , [place] tel: [phone] [facility] No Information 2 Visci DO Miguel. [address], [place], 048978314 , [place]. tel: [phone] [facility], [address], [place], 071834202 , [place] tel: [phone] [facility] No Information 2 Visci DO Miguel. [address], [place], 894408134 , [place]. tel: [phone] [facility], [address], [place], 934771231 , [place] tel: [phone] [facility] No Information 2 Visci DO Miguel. [address], [place], 481030306 , [place]. tel: [phone] [facility], [address], [place], 544579778 , [place] tel: [phone] [facility] Encounter for screening for respiratory tuberculosis 2 Visci DO Miguel. [address], [place], 504959626 , [place]. tel: [phone] [facility], [address], [place], 283747246 , [place] tel: [phone] [facility] Encounter for screening for respiratory tuberculosis 2 Visci DO Miguel. [address], [place], 426606359 , [place]. tel: [phone] [facility], [address], [place], 616862487 , [place] tel: [phone] [facility] Encounter for screening for respiratory tuberculosis 2 Visci DO Miguel. [address], [place], 231271440 , [place]. tel: [phone] [facility], [address], [place], 514803329 , [place] tel: [phone] [facility] No Information 1 Visci DO Miguel. [address], [place], 566554475 , [place]. tel: [phone] [facility], [address], [place], 254250892 , [place] tel: [phone] [facility] No Information 1 Visci DO Miguel. [address], [place], 690055756 , [place]. tel: [phone] [facility], [address], [place], 464521931 , [place] tel: [phone] [facility] No Information 1 Visci DO Miguel. [address], 396993993 , [place]. tel:[phone] Family History Family Member Type Diagnosis Age [...] type Covered green party ID Authoriza tion(s) [place] [id number] [place] [id number] [place] [id number] [place] [id number] [place] [id number] [place] [id number] [place] [id number] Social History Type Description Quantity Date Captured [...] screening . Due on due Goal Tdap due Goal PRAPARE ASSESSMENT. Due on M due Goal HPV. Due on due Goal Tdap [...] Goal Depression screening. Due on due Goal Unhealthy drug use screening . Due on due Goal HPV. Due on due Goal Influenza vaccine. Due on due Goal RLP. Due on due Goal Hep A. Due on du e Goal PRAPARE ASSESSMENT. Due on A due Goal Hepatitis C screening. Due o n due Goal Tdap Vaccine. Due on 2031 due Goal Tdap due Goal HPV. Due [...] 2031 due Goal Influenza vaccine. Due on Or due Goal Tdap due Goal RLP. Due on due Goal Hep A. Due on du e Goal Influenza vaccine. Due on Or due Goal Unhealthy drug use screening . Due on due Goal Depression screening. Due on due Goal PRAPARE ASSESSMENT. Due on due Goal Tdap Vaccine. Due on 2031 due Goal HPV. Due on due Goal Hepatitis C screening. Due o n due Goal Hep A. Due on du e Goal HPV. Due on due Goal Depression screening. Due on due Goal Tdap due Goal Unhealthy drug use screening . Due on due Goal Influenza vaccine. Due on Or due Goal PRAPARE ASSESSMENT. Due on due Goal Hepatitis C screening. Due o n due Goal Tdap Vaccine. Due on 2031 [...] on due Goal PRAPARE ASSESSMENT. Due on N [...] on du e Goal Tdap due Goal PAP. Due on due Goal RLP. Due on due Goal Influenza vaccine. Due on Ma due Goal Tdap due Goal Depression screening. Due on due Goal Tdap Vaccine. Due on 2031 due Goal Hep A. Due on du e Goal PRAPARE ASSESSMENT. Due on M due Goal Depression screening. Due on due Goal Hep A. Due on du e Goal PRAPARE ASSESSMENT. Due on M due Goal Influenza vaccine. Due on Or due Goal RLP. Due on due Goal Tdap Vaccine. Due on 2031 due Goal Tdap due Goal PAP. Due on due Goal PAP. Due on due Goal Influenza vaccine. Due on Or r due Goal Depression screening. Due on due Goal Tdap due Goal PRAPARE ASSESSMENT. Due on M due Goal Hep A. Due on du e Goal RLP. Due on due Goal Tdap Vaccine. Due on 2031 due Goal Influenza vaccine. Due on Or due Goal Tdap due Goal PRAPARE ASSESSMENT. [...]
--- OUTSIDE RECORDS SUMMARY | 2025-06-13 08:30 | XMS_ITS | Encounter Summary ---
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 Blood Glucose Monitoring Suppl ([employer] Glucometer) w/Device kit 1 kit, Does not [...] Medical History: Diagnosis Date SAB (spontaneous ) ([facility]) 10/2021 HISTORY PAST MEDICAL HISTORY SOCIAL HISTORY Past Medical History: Diagnosis Date SAB (spontaneous ) ([facility]) 10/2021 Social History Tobacco Use Smoking status: [...] in third trimester, single or unspecified fetus ([facility]) O36.63X0 US OB follow up transabdominal approach 2. 38 weeks gestation of ([facility]) Z3A.38 POCT urinalysis dipstick manually resulted 3. Third trimester ([facility]) Z34.93 POCT urinalysis dipstick manually resulted 4. Conceived by in vitro fertilization Z78.9 POCT urinalysis dipstick manually resulted 5. Factor 5 Leiden mutation, heterozygous ([facility]) D68.51 POCT urinalysis dipstick manually resulted 6. Insulin controlled gestational diabetes mellitus (GDM) during , antepartum ([facility]) O24.414 POCT urinalysis dipstick manually resulted Return [...] 8:45 AM EDT 38 weeks gestation of ([facility]) Third trimester ([facility]) Conceived by in vitro fertilization Factor 5 Leiden mutation, heterozygous ([facility]) Insulin controlled gestational diabetes mellitus (GDM) during , antepartum ([facility]) documented in this encounter Results * US OB follow up transabdominal approach (06/16/2025 8:23 AM EDT) Anatomical Region Laterality Modality Body Ultrasound 06/20/2025 1:38 PM EDT Impressions 06/21/2025 8:33 AM EDT 1. Single, live intrauterine , current sonographic age of weeks and days, with an estimated date of delivery of 2. Prior examination of May 10, 2025 delivery date at that time was June 19, 2025 and weight was 46.9% * Estimated Weight (g) by Percentile is based upon an accurate estimated age based on last menstrual period. TRANSCRIBED BY: ELECTRONICALLY SIGNED BY: Mike Lucero MD Narrative 06/21/2025 8:33 AM EDT FINDINGS: A single, live intrauterine is present with normal cardiac rate of 120 beats per minute. Normal activity and amniotic fluid volume. Morphology is grossly normal. The cervix not seen due to positioning. The current sonographic age is 39 weeks and 3 days, based on the following measurements: BPD 9.8 cm (40 weeks, 1 days) Head Circumference 34.8cm (40 weeks, 3 days) Abdominal Circumference 36.2cm ( 40 weeks,0 days) Femur Length 7.3cm (37 weeks, 3 days) Presentation Cephalic Weight (g) by Percentile 83.7% * These measurements result in an estimated date of delivery of June 20, 2025. The current estimated weight is 3822 +/*- 573 grams ( 8 pound, 7 ounces). Procedure Note Mike Lucero MD - 06/21/2025 FINDINGS: A single, live intrauterine is present with normal cardiacrate of 120 beats per minute. Normal activity and amniotic fluidvolume. Morphology is grossly normal. The cervix not seen due to fetalpositioning. The current sonographic age is 39 weeks and 3 days, based onthe following measurements: BPD 9.8 cm (40 weeks, 1 days) Head Circumference 34.8cm (40 weeks, 3 days) Abdominal Circumference 36.2cm ( 40 weeks,0 days) Femur Length 7.3cm (37 weeks, 3 days) Presentation Cephalic Weight (g) by Percentile 83.7% * These measurements result in an estimated date of delivery of June. The current estimated weight is 3822 +/*- 573 grams ( 8pound, 7 ounces). IMPRESSION: 1. Single, live intrauterine , current sonographic age ofweeks and days, with an estimated date of delivery of 2. Prior examination of May 10, 2025 delivery date at that time [id number] and weight was 46.9% * Estimated Weight (g) by Percentile is [...] diabetes mellitus (GDM) during , antepartum ([facility]) Excessive growth affecting management of in third trimester, single or unspecified fetus ([facility]) documented in this encounter Additional Health Concerns Active Problems Noted Date Diagnosed Date OB Reminders 11/26/2024 documented as of this encounter
--- OUTSIDE RECORDS SUMMARY | 2025-06-16 08:00 | XMS_ITS | Encounter Summary ---
Author Organization [facility] Address [address] [place] [address] Care Team Providers Care Boat Canvas Installer Name Role Phone Unavailable Primary Care Provider Unavailabl e Encounter Details Date Type Department Care Team (Latest Contact Info) Description 06/16/2025 8:00 AM EDT Ancillary Procedure [facility] [address] [place] [address] [place] [address] Excessive growth affecting management of in third trimester, single or unspecified fetus ([facility]) Social History Tobacco Use Types Packs/Day [...] US OB FOLLOW UP TRANSABDOMINAL APPROACH Routine 06/16/2025 8:23 AM EDT Excessive growth affecting management of in third trimester, single or unspecified fetus ([facility]) documented in this encounter Results * [...] IMGeorgina OB US PROCEDURES Final Resul t documented in this encounter Visit Diagnoses Diagnosis Excessive growth affecting management of in third trimester, single or unspecified fetus ([facility]) documented in this encounter Additional Health Concerns Active Problems Noted Date Diagnosed Date OB Reminders 11/26/2024 documented as of this encounter
--- OUTSIDE RECORDS SUMMARY | 2025-06-23 20:31 | XMS_ITS | Continuity of Care Document ---
Author Organization [facility] Address [address] [place] [address] Phone Care Team Providers Care Associate Professor Of History Name Role Phone Cain Donaldson DO Attending Provider [phone] Care Teams Patient Care Team Team Status: Inactive Member Role Status Dates Cain Donaldson DO Attending Provider Active Start : June 22, 2025 End: June 22, 2025 Chief Complaint and Reason for Visit Chief Complaint Admit Date Unknown June 22, 2025 2: 39pm Allergies, Adverse Reactions, Alerts Allergen Type Severity Reaction Last Updated Verified Status No Known Allergies Allergy Unknown April 06, 2024 12:06p m Yes Active Social History Smoking Status Unknown if ever smoked Observation Status Observation Response Date of Response Legal Sex Female (finding) Sex Assigned At Female 1995 Medications Medication Status Dose Units Route Directions Qty Days St art Date Stop Date End Date Instructions Adherence Metformin 500 mg tablet Active 500 MG PO Twice daily with meals April 06, 2024 12:00a m Unknown Advance Directives Advance Directive Response Recorded Date/ Time Advance Directives No April 06 12:03pm Insurance Providers Guarantor Kevin Conley Address [address] [place] [id number] Contact Info. Home Phone: Payer Policy Id Subscriber's Name Subscriber Id Effectiv e Date Expiration Date [facility] [id number] Kevin Conley [id number] Encounters Encounter Location(s) Arrival/Admit Date Discharge/Depart Date Provider(s) Departed Referred -[facility] June 22, 2025 2:39pm June 22, 2025 2:40pm Cain Donaldson
--- OUTSIDE RECORDS SUMMARY | 2025-06-27 08:37 | XMS_ITS | Encounter Summary ---
Author Organization [facility] Address [address] [place] [address] Care Team Providers Care Detonator Assembler Name Role Phone Unavailable Primary Care Provider Unavailabl e Encounter Details Date Type Department Care Team (Late st Contact Info) Description 11/26/2024 [facility] [address] [place] [id number] Cain Donaldson DO [address] [place] [address] Social History Tobacco Use Types Packs/Day Years [...]
--- OUTSIDE RECORDS SUMMARY | 2025-06-27 08:37 | XMS_ITS | Clinical Summary ---
Author Organization [employer] tem Address [id number] [address] [place] [address] Care Team Providers Care Contact Lens Polisher Name Role Phone Unavailable Primary Care Provider [...] Team Description 06/13/2025 Telephone Maternal- Medicine at [facility] [address] [place] [address] Sonya Lomax, NARESH 06/10/2025 Telephone Maternal- Medicine at [facility] [address] [place] [address] Naomy Thompson RN 06/07/2025 Telephone Maternal- Medicine at [facility] [address] [place] [address] Sonya Lomax, NARESH 06/07/2025 Orders Only [facility] - [facility] US Imaging [address] [place] [address] Eva Mccann, TERRAZZO TILE SETTER-CNM Insulin controlled gestational diabetes mellitus (GDM) in second trimester; Prediabetes in mother during 05/30/2025 Telephone Maternal- Medicine at [facility] [address] [place] [address] Sonya Lomax, NARESH 05/23/2025 1:30 PM EDT Telemedicine Maternal- Medicine at [facility] [address] [place] [address] Devika Pulido PA-C Insulin controlled gestational diabetes mellitus (GDM) in third trimester (Primary Dx) 05/23/2025 Travel 05/17/2025 Telephone Maternal- Medicine at [facility] [address] [place] [address] Sonya Lomax, RN 05/11/2025 Telephone Maternal- Medicine at [facility] [address] [place] [address] Belen Fowler, LD 05/03/2025 Telephone Maternal- Medicine at [facility] [address] [place] [address] Shoshana Berger, LD 04/25/2025 11:30 AM EDT Telemedicine Maternal- Medicine at [facility] [address] [place] [address] Devika Pulido, PA-C Insulin controlled gestational diabetes mellitus (GDM) in third trimester (Primary Dx) 04/25/2025 Travel 04/25/2025 Telephone Maternal- Medicine at [facility] [address] [place] [address] Giselle Cheng, ERI 04/20/2025 Telephone Maternal- Medicine at [facility] [address] [place] [address] Aissatou Stoner, NARESH 04/14/2025 Travel 04/12/2025 Telephone Maternal- Medicine at [facility] [address] [place] [address] Sonya Lomax, NARESH 04/11/2025 Orders Only Maternal- Medicine at [facility] [address] [place] [address] Devika Pulido PA-C 04/11/2025 Remote Patient Monitoring Maternal- Medicine at [facility] [address] [place] [address] Devika Pulido PA-C Insulin controlled gestational diabetes mellitus (GDM) in second trimester; Prediabetes in mother during 03/30/2025 1:30 PM EDT Telemedicine Maternal- Medicine at [facility] [address] [place] [address] Sintia Martinez, UMM-RHONDA Insulin controlled gestational diabetes mellitus (GDM) in second trimester (Primary Dx); Recurrent major depressive disorder, in partial remission; Prediabetes in mother during 03/30/2025 Travel from Last 3 Months Family History [...] 9:05 AM EDT) Anatomical Region Laterality Modality OB-DOG WALKER Ultrasound 04/14/2025 8:07 AM EDT Narrative 04/14/2025 1:39 PM EDT NAME: CINDY GRECO : 1995 SEX: F Accession Number: [id number] ORDERING PHYSICIAN: JAIDA CHADWICK REFERRING PHYSICIAN: ALFREDO PROCTOR Coding ----- --------- Procedures 11022: Follow-up Ultrasound, per fetus Indication ----- --------- Screening for follow-up survey, Screening for congenital cardiac abnormality, resulting from assisted reproductive technology, Gestational diabetes, Obesity in , Depression, Supervision of high risk (LT Choroid plexus cyst)-resolved History ----- --------- OB History 2. Para 0 [id number] Maternal Assessment ----- --------- Physical Exam Height [...] EFW (oz) 6 oz EFW by: Hadlock ([id number]-FL) Extended Tibia 47.6 mm 28w 6d 23% Padmini Assembler Convertible Top 3.1 mm CM 10.2 mm 99% Nicolaides [...] Thorax RVOT view. LVOT view. 3-vessel view. 4-ahekey-zyaoviw view. Right lung. Left lung. Abdomen Right [...] view documented previously 3-vessel view documented previously 9-kmhfcg-jjldhiw view documented previously Aortic arch view documented [...] 6.5 cm. Recommendations ----- --------- Please see [facility] recommendations from prior clinical and/or ultrasound [...] GRECO : 1995 SEX: F Accession Number: [id number] ORDERING PHYSICIAN: JAIDA CHADWIKC REFERRING PHYSICIAN: ALFREDO PROCTOR Coding ----- --------- Procedures 94498: Follow-up Ultrasound, per fetus Indication ----- --------- Screening for follow-up survey, Screening for congenital cardiacabnormality, resulting from assisted reproductive technology, Gestational diabetes, Obesity in , Depression,Supervision of high risk (LT Choroid plexus cyst)-resolved History ----- --------- OB History 2. Para 0 [id number] Maternal Assessment ----- --------- Physical Exam Height [...] GA 29 w + 5 d Assigned JANIAY: 06/25/2025 General Evaluation ----- --------- Cardiac activity [...] EFW (oz) 6 oz EFW by: Hadlock (MGG-OP-[id number]-FL) Extended Tibia 47.6 mm 28w 6d 23% Padmini Assembler Convertible Top 3.1 mm CM 10.2 mm 99% Nicolaides [...] Thorax RVOT view. LVOT view. 3-vessel view. 2-tqweli-cqlwdzjsmwe. Right lung. Left lung. Abdomen Right renal [...] view documented previously 3-vessel view documented previously 3-upatlc-qjakwhq view documented previously Aortic arch view documented [...] 6.5 cm. Recommendations ----- --------- Please see [facility] recommendations from prior clinical and/or ultrasoundreport documentation. The patient is scheduled in four weeks to complete anatomic survey andfetal echocardiogram. Continue testing as previously recommended. Subsequent follow up or other follow up as clinically determined byprimary OB provider unless otherwise specified by [facility]. Results forwarded to ordering provider so they can follow up with thepatient as necessary. us Jaida Chadwick MD [facility] US ORDERABLES Final Result * Pap Smear (11/24/2020 6:26 AM EST) 11/24/2020 6:26 AM EST 11/24/2020 6:35 AM EST Narrative COPATH - 11/28/2020 11:50 AM EST [facility] [address] [place] [address] Gynecologic Cytology Consultation Patient Name: KEVIN MOORE : 1995 (Age: 25) Gender: F Taken: 11/24/2020 Reported: 11/28/2020 Physician(s): Al Orr M.D. ( ) Copy To: [facility]. Rec. #: [id number] Acct: # [id number] Final Cytologic Interpretation ThinPrep Pap Test (Cervical): Satisfactory for evaluation. A transformation zone component was not noted. NEGATIVE FOR INTRAEPITHELIAL LESION OR MALIGNANCY. [facility] [place]/11/28/2020 Interpretation performed [place] [address], License number: [id number]. Electronically Signed Out By PAUL Lopez(ASCP) Date of Last Menstrual Period: 09/12/2020 Other Clinical Conditions: Z01.419 Accounting Machine Mechanic exam wo/abn findings Source of Specimen ThinPrep Pap Test (Cervical) Thin Prep Pap (DOG WALKER) Fee Code(s): G0145 The Pap test is a screening test with an inherent, but low, probability of error. The Pap test is primarily effective for the diagnosis and prevention of squamous cell carcinoma. Regular screening is critical for prevention. ThinPrep liquid-based slides, which meet the Enamel Drier criteria for automated screening, have been screened by the ThinPrep Imaging System (as of 07/20/07) along with an additional manual rescreening by a child adolescent psychiatrist and, if indicated, by a pathologist. Al Orr MD PATHOLOGY/CYTOLOGY ORDERABLE S Final Result COPATH from Last 3 Months or Most Recently Relevant to Health Maintenance Insurance ANTHEM ANTHEM
--- OUTSIDE RECORDS SUMMARY | 2025-06-27 08:37 | XMS_ITS | Encounter Summary ---
Author Organization [facility] Address [address] [place] [address] Care Team Providers Care Assistant Food Service Manager Name Role Phone Unavailable Primary Care Provider Unavailabl e Encounter Details Date Type Department Care Team (Late st Contact Info) Description 01/27/2025 Orders Only [facility] [address] [place] [phone] Damaris Lopez LPN [address] [place] [id number] Social History Tobacco Use Types Packs/Day Years [...]
--- OUTSIDE RECORDS SUMMARY | 2025-06-27 08:37 | XMS_ITS | Clinical Summary ---
Author Organization [facility] Address [address], [address] [place] [address] Care Team Providers Care Community Cultural Development Officer Name Role Phone Unavailable Primary Care [...] Ab NONREACTIVE NONREACTIVE 12/23/19 6:10 PM EST [facility] Comment: The hepatitis C procedure used in [...] ORDERABLES Fin al Result Performing Organization Address City/State/[facility] Co de Phone Number [facility] [address] [place] [address], [facility] [phone] [place] [address], [facility] [phone] * HIV Screen (12/23/2024 6:10 PM EST) HIV Ag/Ab NONREACTIVE NONREACTIVE 12/23/2024 6:10 PM EST [facility] Comment: No laboratory evidence of HIV infection. If acute HIV infection is suspected, consider testing for HIV-1 RNA. 12/23/2024 6:10 PM EST 12/23/2024 6:12 PM EST Cain Donaldson MD IMMUNOLOGY ORDERABLES Fin al Result [facility] [address] [place] [address], [facility] [phone] [facility] [address] [place] [address], [facility] [phone] from Last 3 Months or Most Recently Relevant to Health Maintenance Insurance
--- OUTSIDE RECORDS SUMMARY | 2025-06-27 08:37 | XMS_ITS | Encounter Summary ---
Author Organization [facility] Address [address] [place] [address] Care Team Providers Care Repairer Welding Systems And Equipment Name Role Phone Unavailable Primary Care Provider Unavailabl e Encounter Details Date Type Department Care Team (Late st Contact Info) Description 01/10/2025 Abstract [facility] [address] [address] Cain Donaldson DO [address] [place] [address] Social History Tobacco Use Types Packs/Day Years [...]
--- OUTSIDE RECORDS SUMMARY | 2025-06-27 08:37 | XMS_ITS | Encounter Summary ---
Author Organization [facility] Address [address] [place] [address] Care Team Providers Care Abalone Fisherman Name Role Phone Unavailable Primary Care Provider Unavailabl e Encounter Details Date Type Department Care Team (Late st Contact Info) Description 04/22/2025 Abstract [facility] [address] [place] [address] Cain Donaldson DO [address] [place] [address] Social History Tobacco Use Types Packs/Day Years [...]
--- OUTSIDE RECORDS SUMMARY | 2025-06-27 08:37 | XMS_ITS | Encounter Summary ---
Author Organization [facility] Address [address] [place] [address] Care Team Providers Care Clinical Psychologist Name Role Phone Unavailable Primary Care Provider Unavailabl e Encounter Details Date Type Department Care Team (Late st Contact Info) Description 12/24/2024 Abstract [facility] [address] [place] [address] Cain Donaldson DO [address] [facility] [place] [address] Social History Tobacco Use Types Packs/Day Years [...]
--- OUTSIDE RECORDS SUMMARY | 2025-06-27 08:37 | XMS_ITS | Encounter Summary ---
Author Organization [facility] Address [address] [place] [address] Care Team Providers Care Speaker Mounter Name Role Phone Unavailable Primary Care Provider Unavailabl e Encounter Details Date Type Department Care Team (Late st Contact Info) Description 12/27/2024 Abstract [facility] [address] [address] Cain Donaldson DO [address] [place] [address] Social History Tobacco Use Types Packs/Day Years [...]
--- OUTSIDE RECORDS SUMMARY | 2025-06-27 08:37 | XMS_ITS | Encounter Summary ---
Author Organization [facility] Address [address] [place] [address] Care Team Providers Care Sales Intern Name Role Phone Unavailable Primary Care Provider Unavailabl e Encounter Details Date Type Department Care Team (Late st Contact Info) Description 11/12/2024 Abstract [facility] [address] [place] [phone] Cain Donaldson DO [address] [place] [address] Social History Tobacco Use Types Packs/Day Years [...]
--- OUTSIDE RECORDS SUMMARY | 2025-06-27 08:37 | XMS_ITS | Encounter Summary ---
Author Organization [facility] Address [address] [place] [address] Care Team Providers Care Stave Block Splitter Name Role Phone Unavailable Primary Care Provider Unavailabl e Encounter Details Date Type Department Care Team (Late st Contact Info) Description 04/19/2025 Results Follow-Up [facility] [address] [place] [address] Mary Thorpe LPN [address] [place] [phone] [place] RENAL BI Social History Tobacco Use [...]
--- OUTSIDE RECORDS SUMMARY | 2025-06-27 08:37 | XMS_ITS | Encounter Summary ---
Author Organization [facility] Address [address] [place] [address] Care Team Providers Care Family Coach Name Role Phone Unavailable Primary Care Provider Unavailabl e Encounter Details Date Type Department Care Team (Late st Contact Info) Description 03/18/2025 Abstract [facility] [address] [phone] Yue Dumont MA Social History Tobacco Use [...]
--- OUTSIDE RECORDS SUMMARY | 2025-06-27 08:38 | XMS_ITS | Encounter Summary ---
Author Organization [facility] Address [address] [place] [address] Care Team Providers Care Business Systems Developer Name Role Phone Unavailable Primary Care Provider Unavailabl e Encounter Details Date Type Department Care Team (Late st Contact Info) Description 06/23/2025 Clinisync Result Encounter [facility] External Department Unsolicited Cain Donaldson, DO [address] [facility] [address] [facility] [address] [place] [phone] Social History Tobacco Use Types Packs/Day Years [...] Procedure Name Priority Date/Time Associated Diagnosis Comments ALL CBC WITH AUTO DIFF Routine 06/23/2025 6:04 AM EDT documented in this encounter Results * (ABNORMAL) ALL CBC WITH AUTO DIFF (06/23/2025 6:04 AM EDT) [facility] WBC 10.2 4.0 - 11.0 10 3/uL TBH TBH RBC 2.86(L) 4.20 - 5.40 10 6/uL TBH TBH HGB 8.3(L) 12.0 - 16.0 g/dL TBH TBH HCT 24.5(L) 36.0 - 48.0 % TBH TBH MCV 85.7 81.0 - 99.0 fL TBH TBH MCH 29.0 26.7 - 34.0 pg TBH TBH MCHC 33.9 29.9 - 35.2 g/dL TBH TBH RDW 14.7 11.0 - 15.0 % TBH TBH PLT 141(L) 150 - 450 10 3/uL TBH TBH MPV 10.4 9.5 - 13.5 fL TBH NEUTROPHILS PERCENT AUTO 77.4(H) 43.0 - 75.0 % TBH LYMPHOCYTES PERCENT AUTO 11.2(L) 20.5 - 60.0 % TBH MONOCYTES PERCENT AUTO 9.8 1.7 - 12.0 % TBH TBH EO % 0.8(L) 0.9 - 7.0 % TBH BASOPHILS PERCENT AUTO 0.3 0.2 - 2.0 % TBH IMMATURE GRANULOCYTES PCT AUTO 0.5 0.0 - 0.5 % TBH NEUTROPHILS ABSOLUTE AUTO 7.9(H) 1.4 - 6.5 10 3/uL TBH LYMPHOCYTES ABSOLUTE AUTO 1.1(L) 1.2 - 3.8 10 3/uL TB[facility] MONOCYTES ABSOLUTE AUTO 1.0(H) 0.3 - 0.8 10 3/uL TBH TBH EO # 0.1 0.0 - 0.7 10 3/uL TBH BASOPHILS ABSOLUTE AUTO 0.0 0.0 - 0.1 10 3/uL TBH IMMATURE GRANULOCYTES ABS AUTO 0.05(H) 0.00 - 0.03 10 3/uL TBH 06/23/2025 6:04 AM EDT 06/23/2025 6:14 AM EDT Narrative [facility] - 06/23/2025 6:20 AM EDT us Cain Mendoza DO [facility] Final Result [facility] documented in this encounter Visit Diagnoses Not on filedocumented in this encounter Additional Health Concerns Active Problems Noted Date Diagnosed Date OB Reminders 11/26/2024 documented as of this encounter
--- OUTSIDE RECORDS SUMMARY | 2025-06-27 08:38 | XMS_ITS | Encounter Summary ---
Author Organization [facility] Address [address] [place] [address] Care Team Providers Care Fish Roe Technician Name Role Phone Unavailable Primary Care Provider Unavailabl e Encounter Details Date Type Department Care Team (Late st Contact Info) Description 06/13/2025 Bamboo flowsheet [facility] [address] [address] Christy Schwartz PA [address] [place], [facility] Social History Tobacco Use Types [...]
--- OUTSIDE RECORDS SUMMARY | 2025-06-27 08:38 | XMS_ITS | Encounter Summary ---
Author Organization [facility] Address [address] [facility] [place] [address] Care Team Providers Care Camera Technician Name Role Phone Unavailable Primary Care Provider Unavailabl e Reason for Visit * Reason Onset Date Comments Med Refill 06/24/2025 Encounter Details Date Type Department Care Team (Late st Contact Info) Description 06/24/2025 Refill [facility] [address] [place] [address] [place] [address] Bee Parkinson LPN Factor 5 Leiden mutation, heterozygous (HHS-HCC); S/P section Social History Tobacco Use Types Packs/Day Years [...] encounter Miscellaneous Notes * Telephone Encounter - Bee Parkinson LPN - 06/24/2025 10:38 AM EDT Verbal orders to send medication to patients pharmacy per Dr. Mendoza DO documented in this encounter Plan of Treatment Not on file documented as of this encounter Goals Goal Patient Goal Type Associated Problems Recent Progress Patient-Stated? Author Reminders Care Plan OB Reminders No Open Scheduling, Background documented as of this encounter Visit Diagnoses Diagnosis Factor 5 Leiden mutation, heterozygous (HHS-HCC) S/P section Other postprocedural status documented in this encounter Additional Health Concerns Active Problems Noted Date Diagnosed Date OB Reminders 11/26/2024 documented as of this encounter
--- OUTSIDE RECORDS SUMMARY | 2025-06-27 08:38 | XMS_ITS | Encounter Summary ---
Author Organization [facility] tem Address [id number] [address] [place] [address] Care Team Providers Care Powder Operator Name Role Phone Unavailable Primary Care Provider Unavailabl e Encounter Details Date Type Department Care Team (Late st Contact Info) Description 01/27/2025 Orders Only Maternal- Medicine at [facility] [address] [place] [phone] Sintia Martinez, DOZER OPERATOR-REHAB DIRECTOR OCCUPATIONAL THERAPIST [address] [place] [address] Social History Tobacco Use Types Packs/Day Years [...]
--- OUTSIDE RECORDS SUMMARY | 2025-06-27 08:38 | XMS_ITS | Encounter Summary ---
Author Organization [facility] tem Address [id number] [address] [place] [address] Care Team Providers Care Senior Interactive Producer Name Role Phone Unavailable Primary Care Provider Unavailabl e Encounter Details Date Type Department Care Team (Late st Contact Info) Description 06/13/2025 Telephone Maternal- Medicine at [facility] [address] [place] [address] Sonya Lomax, RN Social History Tobacco Use [...]
--- OUTSIDE RECORDS SUMMARY | 2025-06-27 08:38 | XMS_ITS | Encounter Summary ---
Author Organization [facility] Address [address] [place] [address] Care Team Providers Care Senior Software Analyst Name Role Phone Unavailable Primary Care Provider Unavailabl e Encounter Details Date Type Department Care Team (Late st Contact Info) Description 06/14/2025 Clinisync Result Encounter [facility] External Department Unsolicited George Scherer, LEEANN [address] [facility] [place] [address] Social History Tobacco Use Types [...] EDT Narrative 06/14/2025 11:26 PM EDT The [place] [id number] Ultrasound Report Signed Patient: FANNIE WHITE MR#: [id number] : 1995 Acct:[id number] Age/Sex: 29 / F ADM Date: 06/14/25 Loc: US Attending Dr: George Scherer Ordering Physician: George Scherer Date of Service: 06/14/25 Procedure(s): US OB BPP w non-stress Accession Number(s): [id number] cc: George Scherer; Cain Donaldson D.O. The [address] [address] Patient Name: FANNIE WHITE MRN: [id number] date: 1995 Sex: F Assigned Patient Location: US Current Patient Location: Accession/Order Number: [id number] Exam Date: 06/14/2025 23:22 Report Date: 06/14/2025 [...] Steen M.D. 06/14/2025 11:24 PM Dictation Location: [place] [address] Electronically authenticated by: [id number] Y Date: 06/14/2025 23:24 Dictated By: Zion Steen D.O. Signed By: 06/14/252325 DD/ 23 TD/TT: Kelly Machine Operator: Procedure Note Radiology, Radiologist, - 06/14/2025 [facility] [place] [id number] Ultrasound Report Signed Patient: FANNIE WHITE TMR#: [id number] : 1995Acct:[id number] Age/Sex: 29 / FADM Date: 06/14/25 Loc: US Attending Dr: George Scherer Ordering Physician: George Scherer Date of Service: 06/14/25 Procedure(s): US OB BPP w non-stress Accession Number(s): [id number] cc: George Scherer; Cain Donaldson D.O. [place] [address] Patient Name: FANNIE WHITE MRN: [id number] date: 1995 Sex: F Assigned Patient Location: US Current Patient Location: Accession/Order Number: [id number] Exam Date: 06/14/2025 23:22 Report Date: 06/14/2025 [...] Steen M.D. 06/14/2025 11:24 PM Dictation Location: [place] [address] Electronically authenticated by: [id number] Y Date: 3:24 Dictated By: Zion Steen D.O. Signed By:06/14/252325 DD/ 23 TD/TT: Kelly Machine Operator: George Scherer [facility] Final Resul t documented in this encounter Visit Diagnoses Not on filedocumented in this encounter Additional Health Concerns Active Problems Noted Date Diagnosed Date OB Reminders 11/26/2024 documented as of this encounter
--- OUTSIDE RECORDS SUMMARY | 2025-06-27 08:38 | XMS_ITS | Encounter Summary ---
Author Organization [facility] tem Address [id number] [address] [place] [address] Care Team Providers Care Pipe Line Maintenance Supervisor Name Role Phone Unavailable Primary Care Provider Unavailabl e Encounter Details Date Type Department Care Team (Late st Contact Info) Description 02/17/2025 Orders Only Maternal- Medicine at [facility] [address] [place] [id number] Christy Prado LPN Insulin controlled gestational diabetes mellitus (GDM) in second trimester; Prediabetes in mother during ; 20 weeks gestation of ; Choroid plexus cyst of fetus affecting care of mother, antepartum, single or unspecified fetus; Heterozygous factor V Leiden affecting in second trimester, antepartum; Severe obesity due to excess calories affecting , antepartum ([facility]); Bipolar disorder, in full remission, most [...] due to excess calories affecting , antepartum ([facility]) Bipolar disorder, in full remission, most recent episode depressed documented in this encounter Results * Unlisted Lab Test (02/08/2025) 02/08/2025 us Gricelda Chadwick MD LAB BLOOD ORDERABLES Final Resul t [facility] documented in this encounter Visit Diagnoses Diagnosis Insulin controlled gestational diabetes mellitus (GDM) in second trimester Prediabetes in mother during 20 weeks gestation of Choroid plexus cyst of fetus affecting care of mother, antepartum, single or unspecified fetus Heterozygous factor V Leiden affecting in second trimester, antepartum Severe obesity due to excess calories affecting , antepartum ([facility]) Bipolar disorder, in full remission, most recent episode depressed documented in this encounter Additional Health Concerns Assessment Noted Time PHQ-9 Depression Total Score: 2 07/03/20 16 9:00 AM EDT documented as of this encounter
--- OUTSIDE RECORDS SUMMARY | 2025-06-27 08:38 | XMS_ITS | Encounter Summary ---
Author Organization [facility] Address [address] [place] [address] Care Team Providers Care A&P Mechanic Name Role Phone Unavailable Primary Care Provider Unavailabl e Encounter Details Date Type Department Care Team (Late st Contact Info) Description 06/21/2025 Clinisync Result Encounter [facility] External Department Unsolicited Cain Donaldson, DO [address] [place] [address] Social History Tobacco Use Types Packs/Day Years [...] Procedure Name Priority Date/Time Associated Diagnosis Comments [facility] CBC WITH PLATELET NO DIFFERENTIAL Routine 06/21/2025 5:35 AM EDT [facility] DRUG SCREEN RAPID (URINE) Routine 06/21/2025 5:25 AM EDT documented in this encounter Results * (ABNORMAL) [facility] CBC WITH PLATELET NO DIFFERENTIAL (06/21/2025 5:35 AM EDT) [facility] WBC 6.8 4.0 - 11.0 10 3/uL [facility] RBC 3.77(L) 4.20 - 5.40 10 6/uL [facility] HGB 10.8(L) 12.0 - 16.0 g/dL [facility] HCT 31.7(L) 36.0 - 48.0 % [facility] MCV 84.1 81.0 - 99.0 fL [facility]H [facility] MCH 28.6 26.7 - 34.0 pg [facility]H [facility] MCHC 34.1 29.9 - 35.2 g/dL [facility] RDW 14.2 11.0 - 15.0 % [facility] PLT 161 150 - 450 10 3/uL [facility]H MPV 10.9 9.5 - 13.5 fL [facility] 06/21/2025 5:35 AM EDT 06/21/2025 5:53 AM EDT Narrative [facility] - 06/21/2025 6:01 AM EDT Cain Donaldson DO CLINISYNC Final Result [facility] DRUG SCREEN RAPID (URINE) (06/21/2025 5:25 AM EDT) CANNABINOID SCREEN URINE NEGATIVE NEGATIVE TBH PHENCYCLIDINE SCREEN URINE NEGATIVE NEGATIVE TBH COCAINE SCREEN URINE NEGATIVE NEGATIVE TBH METHAMPHETAMINES SCREEN URINE NEGATIVE NEGATIVE TBH OPIATE SCREEN URINE NEGATIVE NEGATIVE TBH AMPHETAMINE SCREEN URINE NEGATIVE NEGATIVE TBH BENZODIAZEPINES SCREEN URINE NEGATIVE NEGATIVE TBH TRICYCLIC ANTIDEPRESSANT URINE NEGATIVE NEGATIVE TBH METHADONE SCREEN URINE NEGATIVE NEGATIVE TBH BARBITURATES SCREEN URINE NEGATIVE NEGATIVE TBH OXYCODONE SCREEN URINE NEGATIVE NEGATIVE TBH BUPRENORPHINE SCREEN URINE NEGATIVE NEGATIVE TB[facility] Comment: DRUG CLASS TEST SYSTEM CUT-OFF CONCENTRATIONS ARE FOLLOWS: AMP (Amphetamine): 500 ng/mL BAR (Barbiturates): 200 ng/mL BZO (Benzodiazepines): 150 ng/mL BUP (Buprenorphine): 10 ng/mL BETTE (Cocaine): 150 ng/mL mAMP (Methamphetamine): 500 ng/mL MTD (Methadone): 200 ng/mL OPI (Opiates): 100 ng/mL OXY (Oxycodone): 100 ng/mL PCP (Phencyclidine): 25 ng/mL THC (Cannabinoids): 50 ng/mL TCA (Trycyclic Antidepressants): 300 ng/mL 06/21/2025 5:25 AM EDT 06/21/2025 5:53 AM EDT Narrative CLINISYNC - 06/21/2025 6:11 AM EDT us Cain Donaldson DO CLINISYNC Final [facility] documented in this encounter Visit Diagnoses Not on filedocumented in this encounter Additional Health Concerns Active Problems Noted Date Diagnosed Date OB Reminders 11/26/2024 documented as of this encounter
--- OUTSIDE RECORDS SUMMARY | 2025-06-27 08:38 | XMS_ITS | Encounter Summary ---
Author Organization [facility] Address [address] [place] [address] Care Team Providers Care Grocery Store Bagger Name Role Phone Unavailable Primary Care Provider Unavailabl e Encounter Details Date Type Department Care Team (Late st Contact Info) Description 04/14/2025 Abstract [facility] [address] [place] [phone] Yue Dumont MA Social History Tobacco Use [...]
--- OUTSIDE RECORDS SUMMARY | 2025-06-27 08:38 | XMS_ITS | Encounter Summary ---
Author Organization [facility] Address [address] [place] [address] Care Team Providers Care Pathology Manager Name Role Phone Unavailable Primary Care Provider Unavailabl e Encounter Details Date Type Department Care Team (Late st Contact Info) Description 06/23/2025 Abstract [facility] [address] [place] [id number] Amy Montanez, BRANDT [address] [place] [address] Social History Tobacco Use Types Packs/Day Years [...]
--- OUTSIDE RECORDS SUMMARY | 2025-06-27 08:38 | XMS_ITS | Clinical Summary ---
Author Organization [facility] Address [address] [place] [address] Care Team Providers Care Associate Merchandiser Name Role Phone Unavailable Primary Care Provider Unavailabl e Allergies No known active allergies Medications Alcohol Swabs (Alcohol Prep Pad) 70 % padsIndications: Elevated glucose tolerance test, resulting from in vitro fertilization, antepartum ([facility]) Apply 1 Pad topically Daily Use four times daily to check FSBS. 150 each 3 5 Active Blood Glucose Monitoring Suppl (D-Care Glucometer) w/Device kitIndications:E levated glucose tolerance test, resulting from in vitro fertilization, antepartum ([facility]) 1 kit Daily Use four times daily to check FSBS. In the morning prior to breakfast & 1 hour after each meal for a total of 4times daily. 1 kit 5 12/23/19 26 Active insulin syringe 29G X 1/2 0.5 mL miscIndications: Gestational diabetes mellitus (GDM), antepartum, gestational diabetes method of control unspecified ([facility]) Use 2 syringes in the morning for insulin dosage and 2 syringes in the Evening for insulin dosage. Total of 4 syringes daily needed. 120 each 5 5 Active insulin glargine (Lantus SoloStar) 100 UNIT/ML pen Inject 29 Units under the skin at bedtime Active Enoxaparin Sodium (Lovenox) 40 MG/0.4ML solution prefilled syringeIndicatio ns:Factor 5 Leiden mutation, heterozygous ([facility]),S/P section Inject 0.4 mL as directed Daily for 42 doses 16.8 mL 5 08/05/20 25 Active ofloxacin (Floxin) 0.3 % otic solutionIndicati ons:Right otitis media, unspecified otitis media type Administer 5 drops into the right ear Daily for 10 days 10 mL 5 06/09/20 25 Encounters Date Type Department Care Team Description 06/24/2025 Refill [facility] [address] [facility] [place] [address] Bee Parkinson LPN Factor 5 Leiden mutation, heterozygous ([facility]); S/P section 06/23/2025 Abstract [facility] [address] [place] [address] Aym Montanez CNM 06/23/2025 Clinisync Result Encounter NOM[facility] External Department Unsolicited Alfredo Donaldson, DO 06/21/2025 Clinisync Result Encounter NOMS External Department Unsolicited Alfredo Donaldson, DO 06/16/2025 8:00 AM EDT Ancillary Procedure [facility] [address] [place] [address] Excessive growth affecting management of in third trimester, single or unspecified fetus ([facility]) 06/14/2025 Clinisync Result Encounter [facility]OM[facility] External Department Unsolicited Belgica Scherer NP 06/13/2025 8:30 AM EDT Routine [facility] [address] [facility] [place] [address] Christy Schwartz PA Excessive growth affecting management of in third trimester, single or unspecified fetus ([facility]) (Primary Dx); 38 weeks gestation of ([facility]); Third trimester ([facility]); Conceived by in vitro fertilization; Factor 5 Leiden mutation, heterozygous ([facility]); Insulin controlled gestational diabetes mellitus (GDM) during , antepartum ([facility]) 06/13/2025 Bamboo flowsheet [facility] [address] [facility] [place] [address] Christy Schwartz PA 06/08/2025 Clinisync Result Encounter NOMS External Department Unsolicited Belgica Scherer NP 06/06/2025 8:40 AM EDT Routine [facility] [address] [address] Christy Schwartz PA Third trimester ([facility]); 37 weeks gestation of ([facility]) 06/06/2025 Bamboo flowsheet [facility] [address] [address] Christy Schwartz PA 05/30/2025 8:30 AM EDT Routine [facility] [address] [address] Alfredo Donaldson DO Right otitis media, unspecified otitis media type (Primary Dx); Third trimester ([facility]); 36 weeks gestation of ([facility]) 05/30/2025 Bamboo flowsheet [facility] [address] [address] Alfredo Donaldson DO 05/26/2025 8:50 AM EDT Routine [facility] [address] [place] [address] Christy Schwartz PA Third trimester ([facility]); 36 weeks gestation of ([facility]) 05/26/2025 Bamboo flowsheet [facility] [address] [address] Christy Schwartz PA 05/26/2025 Travel 05/24/2025 Clinisync Result Encounter [facility]OMS External Department Unsolicited Belgica Scherer NP 05/17/2025 Clinisync Result Encounter NOMS External Department Unsolicited Belgica Scherer NP 05/16/2025 8:30 AM EDT Routine [facility] [address] [place] [address] Alfredo Donaldson, 34 weeks gestation of ([facility]); Third trimester ([facility]); Conceived by in vitro fertilization; Factor 5 Leiden mutation, heterozygous ([facility]); Insulin controlled gestational diabetes mellitus (GDM) during , antepartum ([facility]); Non-recurrent acute serous otitis media of left ear 05/16/2025 Bamboo flowsheet [facility] [address] [place] [address] [place] [address] Alfredo Donaldson, 05/10/2025 8:00 AM EDT Ancillary Procedure [facility] [place] [phone] Insulin controlled gestational diabetes mellitus (GDM) during , antepartum ([facility]); Gestational diabetes mellitus (GDM), antepartum, gestational diabetes method of control unspecified ([facility]) 05/10/2025 Clinisync Result Encounter [facility]OM[facility] External Department Unsolicited Belgica Scherer NP 05/09/2025 Travel 05/04/2025 Clinisync Result Encounter NOMS External Department Unsolicited Belgica Scherer NP 05/03/2025 8:50 AM EDT Routine [facility] [address] [place] [address] [place] [address] Christy Schwartz PA Gestational diabetes mellitus (GDM), antepartum, gestational diabetes method of control unspecified ([facility]) (Primary Dx); Third trimester ([facility]); 32 weeks gestation of ([facility]); Conceived by in vitro fertilization; Factor 5 Leiden mutation, heterozygous ([facility]); Insulin controlled gestational diabetes mellitus (GDM) during , antepartum ([facility]); size inconsistent with dates ([facility]) 05/03/2025 Bamboo flowsheet [facility] [address] [place] [address] [place] [address] Christy Schwartz PA 04/27/2025 Clinisync Result Encounter NOMS External Department Unsolicited Belgica Scherer, LEEANN 04/26/2025 Travel 04/22/2025 [place] [address] Alfredo Donaldson, DO 04/19/2025 [place] [address] Mary Thorpe, TABLE LEVER OPERATOR US RENAL BI 04/19/2025 Clinisync Result Encounter NOMS External Department Unsolicited Alfredo Donaldson, DO 04/19/2025 Clinisync Result Encounter NOMS External Department Unsolicited Alfredo Donaldson, DO 04/18/2025 10:10 AM [place] [address] Alfredo Donaldson, DO Third trimester ([facility]); 30 weeks gestation of ([facility]) 04/18/2025 Clinisync Result Encounter NOMS External Department Unsolicited Alfredo Donaldson, DO 04/18/2025 Bamboo flowsheet [place] [address] Alfredo Donaldson, DO 04/17/2025 Clinisync Result Encounter NOMS External Department Unsolicited Alfredo Donaldson, DO 04/14/2025 [place] [address] Yue Dumont MA 04/11/2025 Clinisync Result Encounter NOMS External Department Unsolicited Alfredo Donaldson, DO 04/11/2025 Clinisync Result Encounter NOMS External Department Unsolicited Alfredo Donaldson, DO 04/05/2025 Clinisync Result Encounter NOMS External Department Unsolicited Alfredo Donaldson, DO 03/30/2025 8:50 [place] [address] Christy Schwartz PA Second trimester ([facility]); 27 weeks gestation of ([facility]); Gestational diabetes mellitus (GDM), antepartum, gestational diabetes method of control unspecified ([facility]); Factor 5 Leiden mutation, heterozygous ([facility]); Conceived by in vitro fertilization 03/30/2025 Bamboo flowsheet [facility] [address] [address] Christy Schwartz PA 03/30/2025 Travel from Last 3 Months Social History [...] Comments ALL CBC WITH AUTO DIFF Routine 6:04 AM EDT [facility] CBC WITH PLATELET NO DIFFERENTIAL Routine 06/21/2025 5:35 AM EDT TBH DRUG SCREEN RAPID (URINE) Routine 06/21/2025 5:25 AM EDT US OB FOLLOW UP TRANSABDOMINAL APPROACH Routine 06/16/2025 8:23 AM EDT Excessive growth affecting management of in third trimester, single or unspecified fetus ([facility]) US OB BPP W NON-STRESS 06/14/2025 11:24 PM EDT POCT URINALYSIS DIPSTICK Routine 06/13/2025 8:45 AM EDT 38 weeks gestation of ([facility]) Third trimester ([facility]) Conceived by in vitro fertilization Factor 5 Leiden mutation, heterozygous ([facility]) Insulin controlled gestational diabetes mellitus (GDM) during , antepartum ([facility]) US OB BPP W NON-STRESS 06/08/2025 9:04 AM EDT POCT URINALYSIS DIPSTICK Routine 05/30/2025 8:39 AM EDT Third trimester ([facility]) POCT URINALYSIS DIPSTICK Routine 05/26/2025 8:59 AM EDT Third trimester ([facility]) US OB BPP W NON-STRESS 05/24/2025 9:55 PM EDT US OB BPP W NON-STRESS 05/17/2025 8:07 AM EDT URINARY TRACT INFECTION (HTRX) Routine 05/16/2025 9:46 AM EDT POCT URINALYSIS DIPSTICK Routine 05/16/2025 8:43 AM EDT 34 weeks gestation of ([facility]) Third trimester ([facility]) US OB BPP W NON-STRESS 05/10/2025 6:23 PM EDT US OB FOLLOW UP TRANSABDOMINAL APPROACH Routine 05/10/2025 8:32 AM EDT Insulin controlled gestational diabetes mellitus (GDM) during , antepartum ([facility]) Gestational diabetes mellitus (GDM), antepartum, gestational diabetes method of control unspecified ([facility]) US OB BPP W NON-STRESS 05/04/2025 7:58 AM EDT POCT URINALYSIS DIPSTICK Routine 05/03/2025 9:11 AM EDT Third trimester ([facility]) US OB BPP W NON-STRESS 04/27/2025 8:07 [...] 04/18/2025 9:05 PM EDT TBH UA (CLEAN/CATCH) EHS SPECIALIST/MICRO IF IND. Routine 04/18/2025 9:05 PM EDT POCT URINALYSIS DIPSTICK Routine 04/18/2025 10:40 AM EDT Third trimester ([facility]) TBH TOTAL PROTEIN 24 HOUR URINE Routine [...] Relevant to Health Maintenance Results * (ABNORMAL) ALL CBC WITH AUTO DIFF (06/23/2025 6:04 AM EDT) Only the most recent of3 resultswithin the time period is included. TBH WBC 10.2 4.0 - 11.0 10 [...] CLINISYNC - 06/23/2025 6:20 AM EDT us Alfredo Mendoza DO CLINISYNC Final Result [facility] * (ABNORMAL) [facility] CBC WITH PLATELET NO DIFFERENTIAL (06/21/2025 5:35 AM EDT) Pathologist [facility] TB WBC 6.8 4.0 - 11.0 10 3/uL [...] TBH MPV 10.9 9.5 - 13.5 fL TB 06/21/2025 5:35 AM EDT 06/21/2025 5:53 AM EDT Narrative CLINISYNC - 06/21/2025 6:01 AM EDT Alfredo Mendoza DO CLINISYNC Final Result [facility] * TB DRUG SCREEN RAPID (URINE) (06/21/2025 5:25 AM [...] CLINISYNC - 06/21/2025 6:11 AM EDT us Alfredo Donaldson DO CLINISYVANESSA Final Result [facility] * US OB follow up transabdominal approach (06/16/2025 8:23 AM EDT) Only the most recent of2 resultswithin the time period is included. Anatomical Region Laterality Modality Body Ultrasound 06/20/2025 [...] US PROCEDURES Final Resul t * US OB BPP W NON-STRESS (06/14/2025 11:24 PM EDT) Only the most recent of10 resultswithin the time period is included. Anatomical Region Laterality Modality Other 06/14/2025 11:2 4 PM EDT Narrative 06/14/2025 11:26 [place] [address] Ultrasound Report Signed Patient: KEVIN WHITE MR#: [id number] : 1995 Acct:[id number] Age/Sex: 29 / F ADM Date: 06/14/25 Loc: US Attending Dr: Belgica Scherer Ordering Physician: Belgica Scherer Date of Service: 06/14/25 Procedure(s): US OB BPP w non-stress Accession Number(s): [id number] cc: Belgica Scherer; Alfredo Donaldson D.O. The [address] [address] Patient Name: KEVIN WHITE MRN: [id number] date: 1995 Sex: F Assigned Patient Location: US Current Patient Location: Accession/Order Number: [id number] Exam Date: 06/14/2025 23:22 Report Date: 06/14/2025 [...] Steen M.D. 06/14/2025 11:24 PM Dictation Location: [place] [address] Electronically authenticated by: [id number] Y Date: 06/14/2025 23:24 Dictated By: Zion Steen D.O. Signed By: 06/14/252325 DD/ 23 TD/TT: Claims Agent Right Of Way: Procedure Note Radiology, Radiologist, MD - 06/14/2025 [place] [address] Ultrasound Report Signed Patient: KEVIN WHITE TMR#: [id number] : 1995Acct:[id number] Age/Sex: 29 / FADM Date: 06/14/25 Loc: US Attending Dr: Belgica Scherer Ordering Physician: Belgica Scherer Date of Service: 06/14/25 Procedure(s): US OB BPP w non-stress Accession Number(s): [id number] cc: Belgica Scherer; Alfredo Donaldson D.O. The [address] [address] Patient Name: KEVIN WHITE MRN: [facility]:[id number] date: 1995 Sex: F Assigned Patient Location: Current Patient Location: Accession/Order Number: [id number] Exam Date: 06/14/2025 23:22 Report Date: 06/14/2025 [...] Steen M.D. 06/14/2025 11:24 PM Dictation [facility] Electronically authenticated by: [id number] Y Date: 3:24 Dictated By: Zion Steen D.O. Signed By:06/14/252325 DD/ 23 TD/TT: Claims Agent Right Of Way: us Belgica Scherer CARDIAC CARE NURSE [facility]IN[facility] IMAGING Final Resul t * (ABNORMAL) POCT urinalysis dipstick manually resulted (06/13/2025 8:45 AM EDT) Only the most recent of6 resultswithin the time period is included. Color, UA Renita Clarity, UA Cloudy Glucose, UA Negative Negative - 1999(110) ++++ mg/dL Bilirubin, UA Negative Negative - 4(70) +++ mg/dL Ketones, UA Negative Negative - 160(16) ++++ mg/dL Spec Grav, UA 1.015 1 - 1.03 Blood, UA Negative Negative - 50 Warren/mcL pH, UA 6.5 5 - 9 Protein, UA Positive Negative - 1999(20) ++++ mg/dL Urobilinogen, UA 1.0 0.2 - 12 mg/dL Leukocytes, UA Positive Negative - 500+++ Malick/mcL Comment:3+ Nitrite, UA Negative Negative - Positive Urine 06/13/2025 8:45 AM EDT Christy MCKOY POINT OF CARE TEST ENTER/EDIT OR DERABLES Final Result * URINARY TRACT INFECTION (HTRX) (05/16/2025 9:46 AM EDT) [facility] ACINETOBACTER BAUMANII 0 19.961 - 24.689 ppm 05/17/2025 7:54 AM EDT [facility] ACINETOBACTER BAUMANII Not Detected 19.961 - 24.689 ppm 05/17/2025 7:54 AM EDT [facility] CITROBACTER FREUNDII 0 23.000 - 32.015 ppm 05/17/2025 7:54 AM EDT [facility] CITROBACTER FREUNDII Not Detected 23.000 - 32.015 ppm 05/17/2025 7:54 AM EDT [facility] ENTEROBACTER AEROGENES, CLOACAE 0 23.000 - 32.290 ppm 05/17/2025 7:54 AM EDT [facility] ENTEROBACTER AEROGENES, CLOACAE Not Detected 23.000 - 32.290 ppm 05/17/2025 7:54 AM EDT [facility] ENTEROCOCCUS FAECALIS, FAECIUM 0 26.000 - 33.043 ppm 05/17/2025 7:54 AM EDT [facility] ENTEROCOCCUS FAECALIS, FAECIUM Not Detected 26.000 - 33.043 ppm 05/17/2025 7:54 AM EDT [facility] ESCHERICHIA COLI 0 23.000 - 28.500 ppm 05/17/2025 7:54 AM EDT [facility] ESCHERICHIA COLI Not Detected 23.000 - 28.500 ppm 05/17/2025 7:54 AM EDT [facility] KLEBSIELLA PNEUMONIAE, OXYTOCA 0 23.000 - 31.865 ppm 05/17/2025 7:54 AM EDT [facility] KLEBSIELLA PNEUMONIAE, OXYTOCA Not Detected 23.000 - 31.865 ppm 05/17/2025 7:54 AM EDT [facility] MORGANELLA MORGANII 0 19.961 - 24.689 ppm 05/17/2025 7:54 AM EDT [facility] MORGANELLA MORGANII Not Detected 19.961 - 24.689 ppm 05/17/2025 7:54 AM EDT [facility] PROTEUS MIRABILIS, VULGARIS 0 23.000 - 28.500 ppm 05/17/2025 7:54 AM EDT [facility] PROTEUS MIRABILIS, VULGARIS Not Detected 23.000 - 28.500 ppm 05/17/2025 7:54 AM EDT [facility] PSEUDOMONAS AERUGINOSA 0 23.000 - 31.801 ppm 05/17/2025 7:54 AM EDT [facility] PSEUDOMONAS AERUGINOSA Not Detected 23.000 - 31.801 ppm 05/17/2025 7:54 AM EDT [facility] STAPHYLOCOCCUS AUREUS 0 26.000 - 31.595 ppm 05/17/2025 7:54 AM EDT [facility] STAPHYLOCOCCUS AUREUS Not Detected 26.000 - 31.595 ppm 05/17/2025 7:54 AM EDT [facility] STREPTOCOCCUS AGALACTIAE (GROUP B STREP) 0 26.000 - 32.435 ppm 05/17/2025 7:54 AM EDT [facility] STREPTOCOCCUS AGALACTIAE (GROUP B STREP) Not Detected 26.000 - 32.435 ppm 05/17/2025 7:54 AM EDT [facility] DEAN ALBICANS, PARAPSILOSIS, TROPICALIS 0 23.000 - 30.347 ppm 05/17/2025 7:54 AM EDT [facility] DEAN ALBICANS, PARAPSILOSIS, TROPICALIS Not Detected 23.000 - 30.347 ppm 05/17/2025 7:54 AM EDT [facility] DEAN GLABRATA 0 23.000 - 31.618 ppm 05/17/2025 7:54 AM EDT [facility] DEAN GLABRATA Not Detected 23.000 - 31.618 ppm 05/17/2025 7:54 AM EDT [facility] DEAN KRUSEI 0 23.000 - 30.873 ppm 05/17/2025 7:54 AM EDT [facility] DEAN KRUSEI Not Detected 23.000 - 30.873 ppm 05/17/2025 7:54 AM EDT [facility] SERRATIA MARCESCENS 0 23.000 - 31.581 ppm 05/17/2025 7:54 AM EDT [facility] SERRATIA MARCESCENS Not Detected 23.000 - 31.581 ppm 05/17/2025 7:54 AM EDT [facility] STREPTOCOCCUS PYOGENES (GROUP A STREP) 0 19.961 - 24.689 ppm 05/17/2025 7:54 AM EDT [facility] STREPTOCOCCUS PYOGENES (GROUP A STREP) Not Detected 19.961 - 24.689 ppm 05/17/2025 7:54 AM EDT [facility] STAPHYLOCOCCUS EPIDERMIDIS, HAEMOLYTICUS, LUGDUNENSIS, SAPROPHYTICUS (URINA 0 19.961 - 24.689 ppm 05/17/2025 7:54 AM EDT [facility] STAPHYLOCOCCUS EPIDERMIDIS, HAEMOLYTICUS, LUGDUNENSIS, SAPROPHYTICUS (URINA Not Detected 19.961 - 24.689 ppm 05/17/2025 7:54 AM EDT [facility] STAPHYLOCOCCUS EPIDERMIDIS, HAEMOLYTICUS, LUGDUNENSIS, SAPROPHYTICUS (URINA 0 19.961 - 24.689 ppm 05/17/2025 7:54 AM EDT [facility] STAPHYLOCOCCUS EPIDERMIDIS, HAEMOLYTICUS, LUGDUNENSIS, SAPROPHYTICUS (URINA Not Detected 19.961 - 24.689 ppm 05/17/2025 7:54 AM EDT [facility] Urine 05/16/2025 9:46 AM EDT 05/17/2025 2:09 AM EDT us Alfredo Donaldson DO LAB BLOOD ORDERABLES Final Resul t [facility] [address] [address] * US RENAL BI (04/19/2025 8:49 AM EDT) Anatomical Region Laterality Modality Other 04/19/2025 8:49 AM EDT Narrative 04/19/2025 8:52 AM EDT [address] [address] Ultrasound Report Signed Patient: KEVIN WHITE MR#: [id number] : 1995 Acct:[id number] Age/Sex: 29 / F ADM Date: Loc: [facility] 254- Attending Dr: Alfredo Donaldson D.O. Ordering Physician: Alfredo Donaldson D.O. Date of Service: 04/19/25 Procedure(s): US renal BI Accession Number(s): [id number] cc: Alfredo Donaldson D.O. [address] [address] Patient Name: KEVIN WHITE MRN: [id number] date: 1995 Sex: F Assigned Patient Location: LAB Current Patient Location: Accession/Order Number: [id number] Exam Date: 04/19/2025 08:46 Report Date: 04/19/2025 [...] Munson M.D. 04/19/2025 8:49 AM Dictation Location: [place] [address] Electronically authenticated by: [id number] Y Date: 04/19/2025 08:49 Dictated By: Justina Munson M.D. Signed By: 04/19/25 0852 DD/ TD/TT: Claims Agent Right Of Way: Procedure Note Radiology, Radiologist, MD - 04/19/2025 [place] [address] Ultrasound Report Signed Patient: KEVIN WHITEMR#: [id number] : 1995Acct:[id number] Age/Sex: Date: Loc: [facility]-[address]: Alfredo Donaldson D.O. Ordering Physician: Alfredo Donaldson D.O. Date of Service: 04/19/25 Procedure(s): US renal BI Accession Number(s): [id number] cc: Alfredo Donaldson D.O. The [place] [address] Patient Name: KEVIN WHITE MRN: [id number]:[id number] date: 1995 Sex: F Assigned Patient Location: [facility] Current Patient Location: Accession/Order Number: [id number] Exam Date: 04/19/2025 08:46 Report Date: 04/19/2025 [...] Munson M.D. 04/19/2025 8:49 AM Dictation Location: [place] [address] Electronically authenticated by: [id number] Y Date: 508:49 Dictated By: Justina Munson M.D. Signed By:04/19/25 0852 DD/ 0849 TD/TT: Claims Agent Right Of Way: us Alfredo Mendoza DO [facility] IMAGING Final Result * (ABNORMAL) TBH GLUCOSE BLOOD (04/18/2025 11:43 PM EDT) GLUCOSE 108(H) 74 - 106 mg/dL TBH 04/18/2025 11:4 3 PM EDT 04/19/2025 12:07 AM EDT Narrative CLINISYNC - 04/19/2025 12:15 AM EDT us Alfredo Mendoza DO CLINISYNC Final Result [facility] * (ABNORMAL) TBH CREATININE (04/18/2025 11:43 PM EDT) Only the most recent of2 resultswithin the time period is included. CREATININE 0.44(L) 0.55 - 1.02 mg/dL TBH TBH EGFR-AF LIBYAN >60 >=60 mL/min/1.7 3m 2 TBH TBH EGFR-NON AF LIBYAN >60 >=60 mL/min/1.7 3m 2 TBH 04/18/2025 11:4 3 PM EDT 04/19/2025 12:48 AM EDT Narrative CLINISYNC - 04/19/2025 12:56 AM EDT us Alfredo Mendoza DO CLINISYNC Final Result [facility] * ALL BUN (04/18/2025 11:43 PM EDT) Only the most recent of2 resultswithin the time period is included. BLOOD UREA NITROGEN 13.0 7.0 - 18.0 mg/dL TBH 04/18/2025 11:4 3 PM EDT 04/18/2025 11:53 PM EDT Narrative CLINISYNC - 04/19/2025 12:04 AM EDT Alfredo Mendoza DO CLINISYNC Final Result [facility] * (ABNORMAL) TBH URINE MICROSCOPIC ONLY (04/18/2025 9:05 PM EDT) Pathologist [facility] TBH WBC 5-10(A) NONE SEEN #/HPF TBH [...] CLINISYNC [facility] * (ABNORMAL) TBH UA (CLEAN/CATCH) EHS SPECIALIST/MICRO IF IND. (04/18/2025 9:05 PM EDT) COLOR [...] DO CLINISYNC Final Result Performing Organization Address [facility] Co de Phone Number CLINISYNC TB [...] DO CLINISYNC Final Result [facility] * [facility] PROTHROMBIN TIME INR W/O COUM (04/11/2025 4:52 PM EDT) PROTHROMBIN TIME 9.9 9.0 - 11.6 sec TB TB INR 0.93 [facility] Comment: DESIRED INR: 2.0-3.0 CONDITIONS NOT LISTED BELOW 2.5-3.5 FOR PROSTHETIC HEART VALVE REPLACEMENT 2.5-3.5 RECURRENT THROMBOSIS 04/11/2025 4:52 PM EDT 04/11/2025 4:56 PM EDT Narrative CLINISYNC - 04/11/2025 5:57 PM EDT [employer] [facility] DO CLINISYNC Final Result [facility] * (ABNORMAL) [facility] AST (04/11/2025 4:52 PM EDT) [employer]ART[employer] AMINO TRANSFERASE 11(L) 15 - 37 U/L [facility] 04/11/2025 4:52 PM EDT 04/11/2025 4:56 PM EDT Narrative CLINISYNC - 04/11/2025 5:52 PM EDT [facility] DO CLINISYNC Final Result Performing Organization Address [facility]/ZIP Co de Phone Number [facility] * [facility] APTT (04/11/2025 4:52 PM EDT) PARTIAL THROMBOPLASTIN TIME 27.3 22.3 - 36.2 sec [facility] 04/11/2025 4:52 PM EDT 04/11/2025 4:56 PM EDT Narrative CLINISYNC - 04/11/2025 5:57 PM EDT Alfredo Mendoza DO CLINISYNC Final Result Performing Organization Address [facility]/ZIP Co de Phone Number [facility] * ALL URIC ACID (04/11/2025 4:52 PM EDT) URIC ACID 2.8 2.6 - 6.0 mg/dL [facility] 04/11/2025 4:52 PM EDT 04/11/2025 4:56 PM EDT Narrative CLINISYNC - 04/11/2025 5:52 PM EDT Alfredo Mendoza DO CLINISYNC Final Result Performing Organization Address [facility] de Phone Number CLINISYNC TB * ALL LDH (04/11/2025 4:52 PM EDT) LACTATE DEHYDROGENASE 153 81 - 234 U/L [facility] 04/11/2025 4:52 PM EDT 04/11/2025 4:56 PM EDT Narrative CLINISYNC - 04/11/2025 5:52 PM EDT Alfredo Mendoza DO CLINISYNC Final Result Performing Organization Address [facility] Co de Phone Number CLINISYNC TB * Pap Smear (01/20/2025 12:00 AM EDT) Swab Cervical swab / Unknown [facility] CYTOLOGY ORDERABLES Final Result Performing Organization Address City/[facility] Co de Phone Number EXTERNAL LAB from Last 3 Months or Most Recently Relevant to Health Maintenance Additional Health Concerns Active Problems Noted Date Diagnosed Date OB Reminders 11/26/2024 Insurance [facility]
--- OUTSIDE RECORDS SUMMARY | 2025-06-27 08:38 | XMS_ITS | Encounter Summary ---
Author Organization [facility] tem Address [id number] [address] [place] [address] Care Team Providers Care Software Database Architect Name Role Phone Unavailable Primary Care Provider Unavailabl e Encounter Details Date Type Department Care Team (Late st Contact Info) Description 12/30/2024 Orders Only Maternal- Medicine at [facility] [address] [place] [address] Ref Prov, [place] [address] Social History Tobacco Use Types Packs/Day Years [...]
--- OUTSIDE RECORDS SUMMARY | 2025-06-27 08:49 | XMS_ITS | CCD ---
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 Role Phone Unavailable Primary Care Provider Unavailabl e NO FAMILY, PHYSICIAN Primary Care Provider Unava LINDSAY Duckworth Attending Provider Unavailable Primary Care Provider Unavailabl e Unavailable Primary Care Provider Unavailabl e Unavailable Primary Care Provider Unavailabl e Unavailable Primary Care Provider Unavailabl e ZOLTON, JOSE R Referring Unavailable ZOLTON, JOSE R Referring Unavailable MENDOZA, CAIN DAVE Referring Unavailable CHRISTY SCHWARTZ L Referring Unavailable MENDOZA, CAIN R Referring Unavailable [...] R Referring Unavailable Aissatou Castillo Attending Unavailable MENDOZAHOLGERY Attending Unavailable EFREN, CHRISTY Attending Unavailable MENDOZA, CAIN Attending Unavailable EFREN, CHRISTY Attending Unavailable MENDOZACAIN Attending Unavailable EFREN, CHRISTY Attending Unavailable EFREN, CHRISTY Referring Unavailable MENDOZA, CAIN Attending Unavailable EFREN, CHRISTY Attending Unavailable MENDOZA, CAIN Attending Unavailable CHRISTY SCHWARTZ Attending Unavailable CHRISTY SCHWARTZ Attending Unavailable CHRISTY SCHWARTZ Referring Unavailable Cain Donaldson DO Attending Provider [phone] Cain Donaldson Attending Unavailable Cain Donaldson Admitting Unavailable Medications Current Medications Medication Drug Class(es) [...] , resulting from in vitro fertilization, antepartum ([facility]) 1 kit Daily Use four [...] , resulting from in vitro fertilization, antepartum ([facility]) Apply 1 Pad topically Daily Use four times daily to check FSBS. 150 each 3 12/23/2024 Active 24 hr metFORMIN hydrochloride 500 mg extended release oral tablet (16 sources) Biguanide Start: 12-20-2024 End: 03-03-2025 metFORMIN XR (Glucophage-XR) 500 MG 24 hr tablet 12/20/2024 03/03/2025 Discontinued Start: 04-06-2024 take 1 tablet by danay th twice daily at mealtime End: 01-26-2025 take 1 tablet by mouth [...] [38 weeks gestation of ] 06-13-2025 Episodic Unclassified (20 sources) OB Reminders Onset: [...] Name Value Interpretation Reference Range Facil ity ALL CBC WITH AUTO DIFFon BASOPHILS ABSOLUTE AUTO 0 [facility] Basophils/100 WBC (Bld) 0.3 % 0.2 - 2.0 % [facility] Eosinophils/100 WBC (Bld) 0.8 % Low 0.9 - 7.0 % [facility] Erythrocyte distribution width (RBC) [Ratio] 14.7 % 11.0 - 15.0 % [facility] Hematocrit (Bld) [Volume fraction] 24.5 % Low 36.0 - 48.0 % [facility] Hemoglobin (Bld) [Mass/Vol] 8.3 g/dL Low 12.0 - 16.0 g/dL [facility] IMMATURE GRANULOCYTES ABS AUTO 0.05 High [facility] Immature granulocytes/100 WBC (Bld) 0.5 % 0.0 - 0.5 % [facility] Interpretation and review of laboratory results Abnormal [facility] LYMPHOCYTES ABSOLUTE AUTO 1.1 Low [facility] Lymphocytes/100 WBC (Bld) 11.2 % Low 20.5 - 60.0 % [facility] MCH (RBC) [Entitic mass] 29 pg 26.7 - 34.0 pg [facility] MCHC (RBC) [Mass/Vol] 33.9 g/dL 29.9 - 35.2 g/dL [facility] MCV (RBC) [Entitic vol] 85.7 fL 81.0 - 99.0 fL [facility] MONOCYTES ABSOLUTE AUTO 1 High [facility] Monocytes/100 WBC (Bld) 9.8 % 1.7 - 12.0 % [facility] NEUTROPHILS ABSOLUTE AUTO 7.9 High [facility] Neutrophils/100 WBC (Bld) 77.4 % High 43.0 - 75.0 % [facility] Platelet mean volume (Bld) [Entitic vol] 10.4 fL 9.5 - 13.5 fL [facility] TBH EO # 0.1 [facility] TBH PLT 141 Low [facility] TB RBC 2.86 Low [facility] TB WBC 10.2 [facility] HMHP CBC WITH PLATELET NO DI FFERENTIALon 06-21-2025 Erythrocyte distribution width (RBC) [Ratio] 14.2 % 11.0 - 15.0 % [facility] Hematocrit (Bld) [Volume fraction] 31.7 % Low 36.0 - 48.0 % [facility] Hemoglobin (Bld) [Mass/Vol] 10.8 g/dL Low 12.0 - 16.0 g/dL [facility] Interpretation and review of laboratory results Abnormal [facility] MCH (RBC) [Entitic mass] 28.6 pg 26.7 - 34.0 pg [facility] MCHC (RBC) [Mass/Vol] 34.1 g/dL 29.9 - 35.2 g/dL [facility] MCV (RBC) [Entitic vol] 84.1 fL 81.0 - 99.0 fL [facility] Platelet mean volume (Bld) [Entitic vol] 10.9 fL 9.5 - 13.5 fL [facility] TBH PLT 161 [facility] TBH RBC 3.77 Low [facility] WBC 6.8 [facility] US OB FOLLOW UP TRANSABDOMIN AL APPROACHon 06-16-2025 US OB FOLLOW UP TRANSABDOMINAL APPROACH FINDINGS: [...] 573 grams ( 8 pound, 7 ounces). IMPRESSION: 1. Single, live intrauterine [...] of Delivery: 06/24/25 Gestational Age as of 06/13/2025: 38w3d US OB BPP W NON-STRESS on 06-14-[address] [address] Ultrasound Report Signed Patient: FANNIE CONLEY MR#: [id number] : 1995 Acct:[id number] Age/Sex: 29 / F ADM Date: 06/14/25 Loc: US Attending Dr: George Scherer Ordering Physician: George Scherer Date of Service: 06/14/25 Procedure(s): US OB BPP w non-stress Accession Number(s): [id number] cc: George Scherer; Cain Donaldson D.O. The [address] [address] Patient Name: FANNIE CONLEY MRN: [facility]:[id number] date: 1995 Sex: F Assigned Patient Location: US Current Patient Location: Accession/Order Number: [id number] Exam Date: 06/14/2025 23:22 Report Date: 06/14/2025 [...] Steen M.D. 06/14/2025 11:24 PM Dictation Location: [place] [address] Electronically authenticated by: [id number] Y Date: 06/14/2025 23:24 Dictated By: Zion Steen D.O. Signed By: 06/14/252325 DD/ 23 TD/TT: Dramatic Reader: [facility] Radiology, Radiologist, - 06/14/[address] [address] Ultrasound Report Signed Patient: FANNIE CONLEY MR#: [id number] : 1995 Acct:[id number] Age/Sex: 29 / F ADM Date: 06/14/25 Loc: US Attending Dr: George Scherer Ordering Physician: George Scherer Date of Service: 06/14/25 Procedure(s): US OB BPP w non-stress Accession Number(s): [id number] cc: George Scherer; Cain Donaldson D.O. The [place] [address] Patient Name: FANNIE CONLEY MRN: [id number]:[id number] date: 1995 Sex: F Assigned Patient Location: US Current Patient Location: Accession/Order Number: [id number] Exam Date: 06/14/2025 23:22 Report Date: 06/14/2025 [...] Steen M.D. 06/14/2025 11:24 PM Dictation Location: [place] [address] Electronically authenticated by: [id number] Y Date: 06/14/2025 23:24 Dictated By: Zion Steen D.O. Signed By: 06/14/252325 DD/ 23 TD/TT: Dramatic Reader: [facility] Radiology Study observation (narrative) [facility] US OB BPP W NON-STRESS Ordered By: Radiologist Radiology on 06-14-2025 [facility] Work Phone: Urinalysis macro (dipstick) panel (U)on 06-13-2025 Bilirubin, UA Negative Negative - 4(70) +++ mg/dL [facility] Blood, UA Negative Negative - 50 Warren/mcL [facility] Clarity, UA Cloudy [facility] Color, UA Renita [facility] Glucose, UA Negative Negative - 2000(110) ++++ mg/dL [facility] Interpretation and review of laboratory results Abnormal [facility] Ketones, UA Negative Negative - 160(16) ++++ mg/dL [facility] Leukocytes, UA Positive Negative - 500+++ Malick/mcL [facility] Comment on above: 3+ Nitrite, UA Negative Negative - Positive [facility] pH, UA 6.5 5 - 9 [facility] Protein, UA Positive Negative - 2000(20) ++++ mg/dL [facility] Spec Grav, UA 1.015 1 - 1.03 [facility] Urobilinogen, UA 1.0 0.2 - 12 mg/dL [facility] US OB BPP W NON-STRESS on 06-08-2025 [place] [address] Ultrasound Report Signed Patient: FANNIE CONLEY MR#: [id number] : 1995 Acct:[id number] Age/Sex: 29 / F ADM Date: 06/07/25 Loc: US Attending Dr: George Scherer Ordering Physician: George Scherer Date of Service: 06/07/25 Procedure(s): US OB BPP w non-stress Accession Number(s): [id number] cc: George Scherer; Cain Donaldson D.O. [place] [address] Patient Name: FANNIE CONLEY MRN: [id number]:[id number] date: 1995 Sex: F Assigned Patient Location: [facility] Current Patient Location: Accession/Order Number: [id number] Exam Date: 06/08/2025 09:04 Report Date: 06/08/2025 09:04 At the request of: GEORGE SCHERER Procedure: US OB BPP w non-stress Biophysical profile. Reason for exam: Gestational diabetes. COMPARISON: 05/24/2025 TECHNIQUE: Transabdominal imaging of the gravid uterus was obtained. FINDINGS: The mexican food cook reports a BPP of 8 out of 8. ZITA is normal at 15.1 cm. heart rate 157 bpm. US/US OB BPP w non-stress IMPRESSION: BPP 8 out of 8. Impression dictated by: Mike Huerta Jr., D.O. 06/08/2025 9:04 AM Dictation Location: [place] [address] Electronically authenticated by: [id number] Y Date: 06/08/2025 09:04 Dictated By: Mike Huerta M.D. Signed By: 06/08/25906 DD/ 3 TD/TT: Dramatic Reader: [facility] Radiology, Radiologist, MD - 06/08/2025 [place] [address] Ultrasound Report Signed Patient: FANNIE CONLEY MR#: [id number] : 1995 Acct:[id number] Age/Sex: 29 / F ADM Date: 06/07/25 Loc: US Attending Dr: George Scherer Ordering Physician: George Scherer Date of Service: 06/07/25 Procedure(s): US OB BPP w non-stress Accession Number(s): [id number] cc: George Scherer; Cain Donaldson D.O. The [place] [address] Patient Name: FANNIE CONLEY MRN: [facility]:[id number] date: 1995 Sex: F Assigned Patient Location: [facility] Current Patient Location: Accession/Order Number: [id number] Exam Date: 06/08/2025 09:04 Report Date: 06/08/2025 09:04 At the request of: GEORGE SCHERER Procedure: US OB BPP w non-stress Biophysical profile. Reason for exam: Gestational diabetes. COMPARISON: 05/24/2025 TECHNIQUE: Transabdominal imaging of the gravid uterus was obtained. FINDINGS: The mexican food cook reports a BPP of 8 out of 8. ZITA is normal at 15.1 cm. heart rate 157 bpm. US/US OB BPP w non-stress IMPRESSION: BPP 8 out of 8. Impression dictated by: Mike Huerta Jr., D.O. 06/08/2025 9:04 AM Dictation Location: [place] [address] Electronically authenticated by: [id number] Y Date: 06/08/2025 09:04 Dictated By: Mike Huerta M.D. Signed By: 06/08/25906 DD/ 3 TD/TT: Dramatic Reader: [facility] Radiology Study observation (narrative) [facility] US OB BPP W NON-STRESS Ordered By: Radiologist Radiology on 06-08-2025 [facility] Work Phone: Urinalysis macro (dipstick) panel (U)on 05-30-2025 Bilirubin, UA Negative Negative - 4(70) +++ mg/dL [facility] Blood, UA Negative Negative - 50 Warren/mcL [facility] Clarity, UA Clear [facility] Color, UA Yellow [facility] Glucose, UA Negative Negative - 1999(110) ++++ mg/dL [facility] Interpretation and review of laboratory results Abnormal [facility] Ketones, UA Negative Negative - 160(16) ++++ mg/dL [facility] Leukocytes, UA Moderate Negative - 500+++ Malick/mcL [facility] Nitrite, UA Negative Negative - Positive [facility] pH, UA 6.5 5 - 9 [facility] Protein, UA Negative Negative - 2000(20) ++++ mg/dL [facility] Spec Grav, UA 1.015 1 - 1.03 [facility] Urobilinogen, UA 0.2 0.2 - 12 mg/dL [facility] C Urineon 05-29-2025 Bacteria identified Cx [facility] (U) Microbiology PROCEDURE: Urine Culture [R1] SOURCE: U Random BODY SITE: COLLECTED DATE/TIME: 05/27/2025 10:11 EDT RECEIVED DATE/TIME: 05/27/2025 17:02 EDT START DATE/TIME: 05/27/2025 17:02 EDT FREE TEXT SOURCE: Aissatou Castillo MD, MD, Aissatou Nguyen FINAL REPORTS Final Report [] Verified Date/Time: 05/29/2025 07:20 EDT 800 cfu/ml Mixed skin contaminants Performing Locations R1: This test was performed at: [facility], [address] [place] [address], [address]- , [place], Normal [facility] Comment on above: Performed By: #### [id number] #### [facility] [address] [place] [id number] Ambulatory Visit Summaryon 0 05-27-2025 Ambulatory Visit [...] Appointments Friday2025 9:00 AM EST With: Aissatou Catsillo MD Where: [facility] [address] [place] [address]- You Need to Schedule the Following Appointments [...] ??? E (more content not included)... Normal [facility] Reminderson 05-27-2025 Reminders Reminders From: Jacqueline Rascon To: MICHAEL Castillo; Sent: 05/27/2025 10:10:01 EDT Show up: 10/27/2025 09:09:00 EST Subject: [address] Due Date/Time: 11/27/2025 09:09:00 EST Reminder Message Please Remember to: Please call pt to schedule [address] [facility]. Order in 05/27/25 encounter. Thanks! Normal [facility] Urology Office/Clinic Noteon 05-27-2025 Urology Office/Clinic Note [...] 1. Kidney stones (N20.0: Calculus of kidney) [facility] 04/19/25 [facility] - An almost 1 cm [...] 90 oz fluid daily (add 1/4 cup lemon/[place] daily) -Diet mods (more fruits/veg, limit animal protein and salt) Follow-up With When Contact Information Jonathan GORE, Aissatou Nguyen, URL, URO Additional Instructions: [address] AP wo con ([facility]) Patient Education Dietary Guidelines to Help Prevent Kidney Stones I, Jacqueline Rascon, personally scribed for Dr. Castillo on 05/27/2025 [...] Protein Urine Dipstick: Negative (05/27/25 09:35:00) Specific [place] Urine Dipstick: 1.020 (05/27/25 09:35:00) Urine Appearance Urine Dipstick: Clear (05/27/25 09:35:00) Urine Color Urine Dipstick: Yellow (05/27/25 09:35:00) Urobilinogen Urine Dipstick: Normal 0.2-1 EU/dl (05/27/25 09:35:00) pH Urine Dipstick: 7 (05/27/25 09:35:00) Normal [facility] Comment on above: Result Comment: Elec tronically Signed By: Jonathan GORE, Aissatou Nguyen\.br\Date and Time Signed: 05/27/25 10:29 EDT\.br\Electronically Co-Signed By: Jacqueline Rascon\.br\Date and Time Co-Signed: 05/27/25 10:09 EDT Urinalysis macro (dipstick) panel (U)on 05-26-2025 Bilirubin, UA Negative Negative - 4(70) +++ mg/dL [facility] Blood, UA Positive Negative - 50 Warren/mcL [facility] Comment on above: Small Clarity, UA Clear [facility] Color, UA Yellow [facility] Glucose, UA Negative Negative - 1999(110) ++++ mg/dL [facility] Interpretation and review of laboratory results Abnormal [facility] Ketones, UA Negative Negative - 160(16) ++++ mg/dL [facility] Leukocytes, UA Positive Negative - 500+++ Malick/mcL [facility] Comment on above: small Nitrite, UA Negative Negative - Positive [facility] pH, UA 6.5 5 - 9 [facility] Protein, UA Negative Negative - 1999(20) ++++ mg/dL [facility] Spec Grav, UA 1.01 1 - 1.03 [facility] Urobilinogen, UA 0.2 0.2 - 12 mg/dL [facility] US OB BPP W NON-STRESS on 05-24-[address] [address] Ultrasound Report Signed Patient: FANNIE CONLEY MR#: [id number] : 1995 Acct:[id number] Age/Sex: 29 / F ADM Date: 05/24/25 Loc: US Attending Dr: George Scherer Ordering Physician: George Scherer Date of Service: 05/24/25 Procedure(s): US OB BPP w non-stress Accession Number(s): [id number] cc: George Scherer; Cain Donaldson D.O. The [place] [id number] Patient Name: FANNIE CONLEY MRN: [facility]:[id number] date: 1995 Sex: F Assigned Patient Location: [facility] Current Patient Location: Accession/Order Number: [id number] Exam Date: 05/24/2025 21:54 Report Date: 05/24/2025 [...] Steen M.D. 05/24/2025 9:55 PM Dictation Location: [place] [address] Electronically authenticated by: [id number] Y Date: 05/24/2025 21:55 Dictated By: Zion Steen D.O. Signed By: 05/24/252156 DD/ 54 TD/TT: Dramatic Reader: [facility] Radiology, Radiologist, - 05/24/2025 The [place] [id number] Ultrasound Report Signed Patient: FANNIE CONLEY MR#: [id number] : 1995 Acct:[id number] Age/Sex: 29 / F ADM Date: 05/24/25 Loc: US Attending Dr: George Scherer Ordering Physician: George Scherer Date of Service: 05/24/25 Procedure(s): US OB BPP w non-stress Accession Number(s): [id number] cc: George Scherer; Cain Donaldson D.O. The [place] [id number] Patient Name: FANNIE CONLEY MRN: [facility]:[id number] date: 1995 Sex: F Assigned Patient Location: [facility] Current Patient Location: Accession/Order Number: [id number] Exam Date: 05/24/2025 21:54 Report Date: 05/24/2025 [...] Steen M.D. 05/24/2025 9:55 PM Dictation Location: [place] [address] Electronically authenticated by: [id number] Y Date: 05/24/2025 21:55 Dictated By: Zion Steen D.O. Signed By: 05/24/252156 DD/ 54 TD/TT: Dramatic Reader: [facility] Radiology Study observation (narrative) [facility] US OB BPP W NON-STRESS Ordered By: Radiologist Radiology on 05-24-2025 [facility] [employer] Work Phone: US OB BPP W NON-STRESS on 05-17-2025 [place] [address] Ultrasound Report Signed Patient: FANNIE CONLEY MR#: [id number] : 1995 Acct:[id number] Age/Sex: 29 / F ADM Date: 05/16/25 Loc: Attending Dr: George Scherer Ordering Physician: George Scherer Date of Service: 05/16/25 Procedure(s): US OB BPP w non-stress Accession Number(s): [id number] cc: George Scherer; Cain Donaldson D.O. [place] [id number] Patient Name: FANNIE CONLEY MRN: [facility]:[id number] date: 1995 Sex: F Assigned Patient Location: Current Patient Location: Accession/Order Number: [id number] Exam Date: 05/17/2025 08:06 Report Date: 05/17/2025 [...] 05/17/2025 8:07 AM Dictation Location: [place] [address] Electronically authenticated by: [id number] Y Date: 05/17/2025 08:07 Dictated By: Justina Munson M.D. Signed By: 05/17/25 0809 DD/ 6 TD/TT: Dramatic Reader: [facility] Radiology, Radiologist, - 05/17/2025 The [place] [id number] Ultrasound Report Signed Patient: FANNIE CONLEY MR#: [id number] : 1995 Acct:[id number] Age/Sex: 29 / F ADM Date: 05/16/25 Loc: Attending Dr: George Scherer Ordering Physician: George Scherer Date of Service: 05/16/25 Procedure(s): US OB BPP w non-stress Accession Number(s): [id number] cc: George Scherer; Cain Donaldson D.O. The [place] [address] Patient Name: FANNIE CONLEY MRN: [id number] date: 1995 Sex: F Assigned Patient Location: US Current Patient Location: Accession/Order Number: [id number] Exam Date: 05/17/2025 08:06 Report Date: 05/17/2025 [...] 05/17/2025 8:07 AM Dictation Location: [place] [address] Electronically authenticated by: [id number] Y Date: 05/17/2025 08:07 Dictated By: Justina Munson M.D. Signed By: 05/17/25808 DD/ 6 TD/TT: Dramatic Reader: [facility] Radiology Study observation (narrative) [facility] US OB BPP W NON-STRESS Ordered By: Radiologist Radiology on 05-17-2025 [facility] Work Phone: Urinalysis macro (dipstick) panel (U)on 05-16-2025 Bilirubin, UA Negative Negative - 4(70) +++ mg/dL [facility] Blood, UA Positive Negative - 50 Warren/mcL [facility] Comment on above: trace-intact Clarity, UA Clear [facility] Color, UA Yellow [facility] Glucose, UA Negative Negative - 2000(110) ++++ mg/dL [facility] Interpretation and review of laboratory results Abnormal [facility] Ketones, UA Negative Negative - 160(16) ++++ mg/dL [facility] Leukocytes, UA Moderate Negative - 500+++ Malick/mcL [facility] Nitrite, UA Negative Negative - Positive [facility] pH, UA 7 5 - 9 [facility] Protein, UA Negative Negative - 2000(20) ++++ mg/dL [facility] Spec Grav, UA 1.02 1 - 1.03 [facility] Urobilinogen, UA 0.2 0.2 - 12 mg/dL [facility] US OB BPP W NON-STRESS on 05-10-2025 [place] [address] Ultrasound Report Signed Patient: AFNNIE CONLEY MR#: [id number] : 1995 Acct:[id number] Age/Sex: 29 / F ADM Date: 05/10/25 Loc: US Attending Dr: George Scherer Ordering Physician: George Scherer Date of Service: 05/10/25 Procedure(s): US OB BPP w non-stress Accession Number(s): [id number] cc: George Scherer; Cain Donaldson D.O. The [place] [id number] Patient Name: FANNIE CONLEY MRN: [facility]:[id number] date: 1995 Sex: F Assigned Patient Location: [facility] Current Patient Location: Accession/Order Number: [id number] Exam Date: 05/10/2025 18:22 Report Date: 05/10/2025 [...] Epperson M.D. 05/10/2025 6:23 PM Dictation Location: [place] [address] Electronically authenticated by: [id number] Y Date: 05/10/2025 18:23 Dictated By: Larry Epperson M.D. Signed By: 05/10/251825 DD/ 22 TD/TT: Dramatic Reader: [facility] Radiology, Radiologist, MD - 05/10/2025 [place] [address] Ultrasound Report Signed Patient: FANNIE CONLEY MR#: [id number] : 1995 Acct:[id number] Age/Sex: 29 / F ADM Date: 05/10/25 Loc: US Attending Dr: George Scherer Ordering Physician: George Scherer Date of Service: 05/10/25 Procedure(s): US OB BPP w non-stress Accession Number(s): [id number] cc: George Scherer; Cain Donaldson D.O. The [address] [address] Patient Name: FANNIE CONLEY MRN: [facility]:[id number] date: 1995 Sex: F Assigned Patient Location: [facility] Current Patient Location: Accession/Order Number: [id number] Exam Date: 05/10/2025 18:22 Report Date: 05/10/2025 [...] Epperson M.D. 05/10/2025 6:23 PM Dictation [facility] Electronically authenticated by: [id number] Y Date: 05/10/2025 18:23 Dictated By: Larry Epperson M.D. Signed By: 05/10/251825 DD/ 22 TD/TT: Dramatic Reader: [facility] [employer] Radiology Study observation (narrative) [facility] US OB BPP W NON-STRESS Ordered By: Radiologist Radiology on 05-10-2025 [facility] [employer] Work Phone: OB FOLLOW UP TRANSABDOMIN AL [...] OB BPP W NON-STRESS on 05-04-2025 [place] [address] Ultrasound Report Signed Patient: FANNIE CONLEY MR#: [id number] : 1995 Acct:[id number] Age/Sex: 29 / F ADM Date: 05/03/25 Loc: US Attending Dr: George Scherer Ordering Physician: George Scherer Date of Service: 05/03/25 Procedure(s): US OB BPP w non-stress Accession Number(s): [id number] cc: George Scherer; Cain Donaldson D.O. [place] [address] Patient Name: FANNIE CONLEY MRN: [id number] date: 1995 Sex: F Assigned Patient Location: US Current Patient Location: Accession/Order Number: [id number] Exam Date: 05/04/2025 07:57 Report Date: 05/04/2025 [...] Munson M.D. 05/04/2025 7:58 AM Dictation Location: [place] [address] Electronically authenticated by: [id number] Y Date: 05/04/2025 07:58 Dictated By: Justina Munson M.D. Signed By: 05/04/25 0946 DD/ 0758 TD/TT: Dramatic Reader: [facility] Radiology, Radiologist, - 05/04/2025 [place] [address] Ultrasound Report Signed Patient: FANNIE CONLEY MR#: [id number] : 1995 Acct:[id number] Age/Sex: 29 / F ADM Date: 05/03/25 Loc: US Attending Dr: George Scherer Ordering Physician: George Scherer Date of Service: 05/03/25 Procedure(s): US OB BPP w non-stress Accession Number(s): [id number] cc: George Scherer; Cain Donaldson D.O. The [address] [id number] Patient Name: FANNIE CONLEY MRN: [facility]:[id number] date: 1995 Sex: F Assigned Patient Location: Current Patient Location: Accession/Order Number: [id number] Exam Date: 05/04/2025 07:57 Report Date: 05/04/2025 [...] Munson M.D. 05/04/2025 7:58 AM Dictation Location: [place] [address] Electronically authenticated by: [id number] Y Date: 05/04/2025 07:58 Dictated By: Justina Munson M.D. Signed By: 05/04/25 0946 DD/ 0758 TD/TT: Dramatic Reader: [facility] Radiology Study observation (narrative) [facility] US OB BPP W NON-STRESS Ordered By: Radiologist Radiology on 05-04-2025 [facility] Work Phone: Urinalysis macro (dipstick) panel (U)on 05-03-2025 Bilirubin, UA Negative Negative - 4(70) +++ mg/dL [facility] Blood, UA Positive Negative - 50 Warren/mcL [facility] Comment on above: small Clarity, UA Clear [facility] Color, UA Yellow [facility] Glucose, UA Negative Negative - 1999(110) ++++ mg/dL [facility] Interpretation and review of laboratory results Abnormal [facility] Ketones, UA Negative Negative - 160(16) ++++ mg/dL [facility] Leukocytes, UA Positive Negative - 500+++ Malick/mcL [facility] Comment on above: small Nitrite, UA Negative Negative - Positive [facility] pH, UA 7 5 - 9 [facility] Protein, UA Negative Negative - 1999(20) ++++ mg/dL [facility] Spec Grav, UA 1.015 1 - 1.03 [facility] Urobilinogen, UA 0.2 0.2 - 12 mg/dL [facility] OB BPP W NON-STRESS on 04-27-2025 [place] [address] Ultrasound Report Signed Patient: FANNIE CONLEY MR#: [id number] : 1995 Acct:[id number] Age/Sex: 29 / F ADM Date: 04/26/25 Loc: US Attending Dr: George Scherer Ordering Physician: George Scherer Date of Service: 04/26/25 Procedure(s): US OB BPP w non-stress Accession Number(s): [id number] cc: George Scherer; Cain Donaldson D.O. [place] [id number] Patient Name: FANNIE CONLEY MRN: [facility]:[id number] date: 1995 Sex: F Assigned Patient Location: [facility] Current Patient Location: Accession/Order Number: [id number] Exam Date: 04/27/2025 08:06 Report Date: 04/27/2025 [...] Munson M.D. 04/27/2025 8:07 AM Dictation Location: [place] [address] Electronically authenticated by: [id number] Y Date: 04/27/2025 08:07 Dictated By: Justina Munson M.D. Signed By: 04/27/25809 DD/ 6 TD/TT: Dramatic Reader: [facility] Radiology, Radiologist, - 04/27/2025 [place] [address] Ultrasound Report Signed Patient: FANNIE CONLEY MR#: [id number] : 1995 Acct:[id number] Age/Sex: 29 / F ADM Date: 04/26/25 Loc: US Attending Dr: George Scherer Ordering Physician: George Scherer Date of Service: 04/26/25 Procedure(s): US OB BPP w non-stress Accession Number(s): [id number] cc: George Scherer; Cain Donaldson D.O. The [address] [address] Patient Name: FANNIE CONLEY MRN: [facility]:[id number] date: 1995 Sex: F Assigned Patient Location: [facility] Current Patient Location: Accession/Order Number: [id number] Exam Date: 04/27/2025 08:06 Report Date: 04/27/2025 [...] Munson M.D. 04/27/2025 8:07 AM Dictation Location: [place] [address] Electronically authenticated by: [id number] Y Date: 04/27/2025 08:07 Dictated By: Justina Munson M.D. Signed By: 04/27/25 0810 DD/ 0807 TD/TT: Dramatic Reader: [facility] Radiology Study observation (narrative) [facility] US OB BPP W NON-STRESS Ordered By: Radiologist Radiology on 04-27-2025 [facility] Work Phone: US OB BPP W NON-STRESS on 04-19-2025 [place] [address] Ultrasound Report Signed Patient: FANNIE CONLEY MR#: [id number] : 1995 Acct:[id number] Age/Sex: 29 / F ADM Date: Loc: [facility] [address]: Cain Donaldson D.O. Ordering Physician: Cain Donaldson D.O. Date of Service: 04/19/25 Procedure(s): US OB BPP w non-stress Accession Number(s): [id number] cc: Cain Donaldson D.O. The [place] [address] Patient Name: FANNIE CONLEY MRN: [id number]:[id number] date: 1995 Sex: F Assigned Patient Location: LAB Current Patient Location: Accession/Order Number: [id number] Exam Date: 04/19/2025 09:00 Report Date: 04/19/2025 [...] 14.2 cm. This is normal. Total score: 8/ US/US OB BPP w non-stress IMPRESSION: NORMAL BIOPHYSICAL PROFILE. Impression dictated by: Jutsina Munson M.D. 04/19/2025 9:04 AM Dictation Location: [place] [address] Electronically authenticated by: [id number] Y Date: 04/19/2025 09:04 Dictated By: Justina Munson M.D. Signed By: 04/19/25905 DD/ 3 TD/TT: Dramatic Reader: [facility] Radiology, Radiologist, MD - 04/19/2025 [place] [address] Ultrasound Report Signed Patient: FANNIE CONLEY MR#: [id number] : 1995 Acct:[id number] Age/Sex: 29 / F ADM Date: Loc: [facility] [address]: Cain Donaldson D.O. Ordering Physician: Cain Donaldson D.O. Date of Service: 04/19/25 Procedure(s): US OB BPP w non-stress Accession Number(s): [id number] cc: Cain Donaldson D.O. The [address] [address] Patient Name: FANNIE CONLEY MRN: [facility]:[id number] date: 1995 Sex: F Assigned Patient Location: LAB Current Patient Location: Accession/Order Number: [id number] Exam Date: 04/19/2025 09:00 Report Date: 04/19/2025 [...] Munson M.D. 04/19/2025 9:04 AM Dictation Location: [place] [address] Electronically authenticated by: [id number] Y Date: 04/19/2025 09:04 Dictated By: Justina Munson M.D. Signed By: 04/19/25905 DD/ 3 TD/TT: Dramatic Reader: [facility] Radiology Study observation (narrative) [facility] US OB BPP W NON-STRESS Ordered By: Radiologist Radiology on 04-19-2025 [facility] Work Phone: US RENAL BIon 04-19-2025 [place] [address] Ultrasound Report Signed Patient: FANNIE CONLEY MR#: [id number] : 1995 Acct:[id number] Age/Sex: 29 / F ADM Date: Loc: [facility] 254-[address]: Cain Donaldson D.O. Ordering Physician: Cain Donaldson D.O. Date of Service: 04/19/25 Procedure(s): US renal BI Accession Number(s): [id number] cc: Cain Donaldson D.O. The [place] [id number] Patient Name: FANNIE CONLEY MRN: [facility]:[id number] date: 1995 Sex: F Assigned Patient Location: LAB Current Patient Location: Accession/Order Number: [id number] Exam Date: 04/19/2025 08:46 Report Date: 04/19/2025 [...] Munson M.D. 04/19/2025 8:49 AM Dictation Location: [place] [address] Electronically authenticated by: [id number] Y Date: 04/19/2025 08:49 Dictated By: Justina Munson M.D. Signed By: 04/19/25 0852 DD/ 0849 TD/TT: Dramatic Reader: [facility] Radiology, Radiologist, - 04/19/2025 The [place] [id number] Ultrasound Report Signed Patient: FANNIE CONLEY MR#: [id number] : 1995 Acct:[id number] Age/Sex: 29 / F ADM Date: Loc: [facility] 254-[address]: Cain Donaldson D.O. Ordering Physician: Cain Donaldson D.O. Date of Service: 04/19/25 Procedure(s): US renal BI Accession Number(s): [id number] cc: Cain Donaldson D.O. [address] [address] Patient Name: FANNIE CONLEY MRN: [facility]:[id number] date: 1995 Sex: F Assigned Patient Location: LAB Current Patient Location: Accession/Order Number: [id number] Exam Date: 04/19/2025 08:46 Report Date: 04/19/2025 [...] Munson M.D. 04/19/2025 8:49 AM Dictation Location: [place] [address] Electronically authenticated by: [id number] Y Date: 04/19/2025 08:49 Dictated By: Justina Munson M.D. Signed By: 04/19/25 0852 DD/ TD/TT: Dramatic Reader: [facility] Radiology Study observation (narrative) [facility] RENAL BIOrdered By: [employer] Radiology on 04-19-2025 [facility] [employer] Work Phone: [facility] TOTAL PROTEIN 24 HOUR UR INEon 04-18-2025 Interpretation and review of laboratory results Abnormal [facility] Protein (U) [Mass/Vol] 9.5 mg/dL NINF - 11.9 mg/dL [facility] TOTAL PROTEIN 24 HOUR URINE 285 High NINF [facility] TOTAL VOLUME 24 HOUR URINE 3000 mL/24hr [facility] ([facility]ATCH) DRAINAGE DESIGN COORDINATOR/BHAVIN RO IF IND.on 04-18-2025 BILIRUBIN URINE Negative NEGATIVE [facility] BLOOD URINE MODERATE Abnormal NEGATIVE [facility] Clarity (U) CLEAR CLEAR [facility] Color (U) LT. YELLOW YELLOW [facility] GLUCOSE URINE UA Negative NEGATIVE mg/dL [facility] Interpretation and review of laboratory results Abnormal [facility] Ketones Ql (U) Negative NEGATIVE mg/dL [facility] Leukocyte esterase Test strip Ql (U) SMALL Abnormal NEGATIVE [facility] NITRITE URINE Negative NEGATIVE [facility] pH (U) 6.0 [pH] 5.0 - 9.0 [facility] PROTEIN URINE Negative NEG/TRACE mg/dL [facility] SPECIFIC GRAVITY URINE 1.020 1.005 - 1.025 [facility] URINE MICROSCOPIC INDICATED YES [facility] UROBILINOGEN URINE 0.2 EU/dL 0.2 - 1.0 EU/dL N [facility]inalysis macro (dipstick) panel (U)on 04-18-2025 Bilirubin, UA Negative Negative - 4(70) +++ mg/dL [facility] Blood, UA Negative Negative - 50 Warren/mcL [facility] Clarity, UA Clear [facility] Color, UA Yellow [facility] Glucose, UA Negative Negative - 1999(110) ++++ mg/dL [facility] Interpretation and review of laboratory results Normal [facility] Ketones, UA Negative Negative - 160(16) ++++ mg/dL [facility] Leukocytes, UA Positive Negative - 500+++ Malick/mcL [facility] Comment on above: small Nitrite, UA Negative Negative - Positive [facility] pH, UA 7 5 - 9 [facility] Protein, UA Negative Negative - 1999(20) ++++ mg/dL [facility] Spec Grav, UA 1.01 1 - 1.03 [facility] Urobilinogen, UA 0.2 0.2 - 12 mg/dL [facility] ALL BUNon 04-11-2025 Urea nitrogen [Mass/Vol] 11 mg/dL 7.0 - 18.0 mg/dL [facility] ALL CBC WITH AUTO DIFFon BASOPHILS ABSOLUTE AUTO 0 [facility] Basophils/100 WBC (Bld) 0.3 % 0.2 - 2.0 % [facility] Eosinophils/100 WBC (Bld) 1.5 % 0.9 - 7.0 % [facility] Erythrocyte distribution width (RBC) [Ratio] 13.4 % 11.0 - 15.0 % [facility] Hematocrit (Bld) [Volume fraction] 31.7 % Low 36.0 - 48.0 % [facility] Hemoglobin (Bld) [Mass/Vol] 11 g/dL Low 12.0 - 16.0 g/dL [facility] IMMATURE GRANULOCYTES ABS AUTO 0.06 High [facility] Immature granulocytes/100 WBC (Bld) 0.8 % High 0.0 - 0.5 % [facility] Interpretation and review of laboratory results Abnormal [facility] LYMPHOCYTES ABSOLUTE AUTO 1.5 [facility] Lymphocytes/100 WBC (Bld) 20.5 % 20.5 - 60.0 % [facility] MCH (RBC) [Entitic mass] 30.2 pg 26.7 - 34.0 pg [facility] MCHC (RBC) [Mass/Vol] 34.7 g/dL 29.9 - 35.2 g/dL [facility] MCV (RBC) [Entitic vol] 87.1 fL 81.0 - 99.0 fL [facility] MONOCYTES ABSOLUTE AUTO 0.6 [facility] Monocytes/100 WBC (Bld) 7.8 % 1.7 - 12.0 % [facility] NEUTROPHILS ABSOLUTE AUTO 5.1 [facility] Neutrophils/100 WBC (Bld) 69.1 % 43.0 - 75.0 % [facility] Platelet mean volume (Bld) [Entitic vol] 10.6 fL 9.5 - 13.5 fL [facility] TBH EO # 0.1 [facility] TBH PLT 193 [facility] TB RBC 3.64 Low [facility] TB WBC 7.3 [facility] ALL LDHon 04-11-2025 LDH [Catalytic activity/Vol] 153 U/L 81 - 234 U/L [facility] ALL URIC ACIDon 04-11-2025 Urate [Mass/Vol] 2.8 mg/dL 2.6 - 6.0 mg/dL [facility] 04-11-2025 AST [Catalytic activity/Vol] 11 U/L Low 15 - 37 U/L [facility] No Panel Informationon 04-11 Interpretation and review of laboratory results Abnormal [facility] TBH CREATININEon 04-11-2025 Creatinine [Mass/Vol] 0.36 mg/dL Low 0.55 - 1.02 mg/dL [facility] GFR/1.73 sq M.predicted CKD-EPI (S/P/Bld) [Vol rate/Area] >60 >=60 mL/min/1.73m 2 [facility] EGFR-NON AF CYMRO >60 >=60 mL/min/1.73m 2 [facility] US OB BPP W NON-STRESS on 04-11-2025 [place] [address] Ultrasound Report Signed Patient: FANNIE CONLEY MR#: [id number] : 1995 Acct:[id number] Age/Sex: 29 / F ADM Date: 04/11/25 Loc: US Attending Dr: George Scherer Ordering Physician: Cain Donaldson D.O. Date of Service: 04/11/25 Procedure(s): US OB BPP w non-stress Accession Number(s): [id number] cc: Cain Donaldson D.O. The [place] [id number] Patient Name: FANNIE CONLEY MRN: [id number] date: 1995 Sex: F Assigned Patient Location: [facility] Current Patient Location: Accession/Order Number: [id number] Exam Date: 04/11/2025 19:33 Report Date: 04/11/2025 [...] Steen M.D. 04/11/2025 7:34 PM Dictation [facility] Electronically authenticated by: [id number] Y Date: 04/11/2025 19:34 Dictated By: Zion Steen D.O. Signed By: 04/11/251935 DD/ 33 TD/TT: Dramatic Reader: [facility] Radiology, Radiologist, MD - 04/11/2025 [place] [address] Ultrasound Report Signed Patient: FANNIE CONLEY MR#: [id number] : 1995 Acct:[id number] Age/Sex: 29 / F ADM Date: 04/11/25 Loc: US Attending Dr: George Scherer Ordering Physician: Cain Donaldson D.O. Date of Service: 04/11/25 Procedure(s): US OB BPP w non-stress Accession Number(s): [id number] cc: Cain Donaldson D.O. The [place] [id number] Patient Name: FANNIE CONLEY MRN: [facility]:[id number] date: 1995 Sex: F Assigned Patient Location: [facility] Current Patient Location: Accession/Order Number: [id number] Exam Date: 04/11/2025 19:33 Report Date: 04/11/2025 [...] Steen M.D. 04/11/2025 7:34 PM Dictation Location: [address] Electronically authenticated by: [id number] Y Date: 04/11/2025 19:34 Dictated By: Zion Steen D.O. Signed By: 04/11/251935 DD/ 33 TD/TT: Dramatic Reader: [facility] Radiology Study observation (narrative) [facility] US OB BPP W NON-STRESS Ordered By: Radiologist Radiology on 04-11-2025 [facility] Work Phone: US OB BPP W NON-STRESS on 04-05-2025 [place] [address] Ultrasound Report Signed Patient: FANNIE CONLEY MR#: [id number] : 1995 Acct:[id number] Age/Sex: 29 / F ADM Date: 04/05/25 Loc: [facility] 250-[address]: George Scherer Ordering Physician: Cain Donaldson D.O. Date of Service: 04/05/25 Procedure(s): US OB BPP w non-stress Accession Number(s): [id number] cc: Cain Donaldson D.O. [place] [address] Patient Name: FANNIE CONLEY MRN: [id number]:[id number] date: 1995 Sex: F Assigned Patient Location: [facility] Current Patient Location: [facility] Accession/Order Number: [id number] Exam Date: 04/05/2025 17:57 Report Date: 04/05/2025 [...] Steen M.D. 04/05/2025 5:58 PM Dictation Location: [place]-[facility] Electronically authenticated by: [id number] Y Date: 04/05/2025 17:58 Dictated By: Zion Steen D.O. Signed By: 04/05/251800 DD/ 57 TD/TT: Dramatic Reader: [facility] Radiology, Radiologist, - 04/05/2025 [place] [address] Ultrasound Report Signed Patient: FANNIE CONLEY MR#: [id number] : 1995 Acct:[id number] Age/Sex: 29 / F ADM Date: 04/05/25 Loc: [place] [address]: George Scherer Ordering Physician: Cain Donaldson D.O. Date of Service: 04/05/25 Procedure(s): US OB BPP w non-stress Accession Number(s): [id number] cc: Cain Donaldson D.O. The [place] [address] Patient Name: FANNIE CONLEY MRN: [facility]:[id number] date: 1995 Sex: F Assigned Patient Location: [facility] Current Patient Location: [facility] Accession/Order Number: [id number] Exam Date: 04/05/2025 17:57 Report Date: 04/05/2025 [...] Steen M.D. 04/05/2025 5:58 PM Dictation Location: [address] Electronically authenticated by: [id number] Y Date: 04/05/2025 17:58 Dictated By: Zion Steen D.O. Signed By: 04/05/25 3302 DD/ 3366 TD/TT: Dramatic Reader: [facility] Radiology Study observation (narrative) [facility] US OB BPP W NON-STRESS Ordered By: Radiologist Radiology on 04-05-2025 [facility] Work Phone: Urinalysis macro (dipstick) panel (U)on 03-03-2025 Bilirubin, UA Negative Negative - 4(70) +++ mg/dL [facility] Blood, UA Negative Negative - 50 Warren/mcL [facility] Clarity, UA Clear [facility] Color, UA Yellow [facility] Glucose, UA Negative Negative - 2000(110) ++++ mg/dL [facility] Interpretation and review of laboratory results Abnormal [facility] Ketones, UA Negative Negative - 160(16) ++++ mg/dL [facility] Leukocytes, UA Trace Negative - 500+++ Malick/mcL [facility] Nitrite, UA Negative Negative - Positive [facility] pH, UA 7 5 - 9 [facility] Protein, UA Negative Negative - 2000(20) ++++ mg/dL [facility] Spec Grav, UA 1.015 1 - 1.03 [facility] Urobilinogen, UA 0.2 0.2 - 12 mg/dL [facility] AFP, Maternalon 02-11-2025 Determined by Other Normal [facility] Comment on above: Performed By: #### A AFPM #### [facility] [address] [place] [address] Personal Care Attendant: Kenneth Krishna MD Due Date SEE NOTE [facility] Comment on above: Result Comment: Resu lts for Estimated Due Date: 06 24 25 Performed By: #### A AFPM #### [facility] [address] [place] [address] Personal Care Attendant: Kenneth Krishna MD Family History No [facility] Comment on above: Performed By: #### A AFPM #### [facility] [address] [place] [address] Personal Care Attendant: Kenneth Krishna MD Gestat Age (exact) 20 wks, 4 days Normal [facility] Comment on above: Performed By: #### A AFPM #### [facility] [address] [place] [address] Personal Care Attendant: Kenneth Krishna MD Ins Req Matern Diab No [facility] Comment on above: Performed By: #### A AFPM #### [facility] [address] [place] [address] Personal Care Attendant: Kenneth Krishna MD Interpretation Screen Neg [facility] Comment on above: Result Comment: (NOT E) INTERPRETATION: SCREEN NEGATIVE for open spina bifida Neural Tube Defects (NTD) Negative Pre-Test Post-Test Cutoff Neural Tube Defects Risks 1:1030 < 1:52966 1:250 Comments: The risk of an open neural tube defect is less than the screening cut-off. This test was developed and its performance characteristics determined by [employer]. It has not been cleared or approved by the [place] Food and Drug Administration. This test was performed in a CLIA certified laboratory and is intended for clinical purposes. Performed By: #### A AFPM #### [facility] [address] [place] [address] Personal Care Attendant: Kenneth Krishna MD [age] [facility] Comment on above: Performed By: #### A AFPM #### [facility] [address] [place] [address] Personal Care Attendant: Kenneth Krishna MD Maternal Race Nonblack [facility] Comment on above: Performed By: #### A AFPM #### [facility] [address] [place] [address] Personal Care Attendant: Kenneth Krishna MD Maternal Weight 231.0 lbs. [facility] Comment on above: Performed By: #### A AFPM #### [facility] [address] [place] [address] Personal Care Attendant: Kenneth Krishna MD MoM for AFP 0.85 [facility] Comment on above: Performed By: #### A AFPM #### [facility] [address] [place] [address] Personal Care Attendant: Kenneth Krishna MD Number of Fetuses [place] [facility] Comment on above: Performed By: #### A AFPM #### [facility] [address] [place] [address] Personal Care Attendant: Kenneth Krishna MD Patient's AFP 41 ng/mL [facility] Comment on above: Performed By: #### A AFPM #### [facility] [address] [place] [address] Personal Care Attendant: Kenneth Krishna MD Smoking No [facility] Comment on above: Performed By: #### A AFPM #### [facility] [address] [place] [address] Personal Care Attendant: Kenneth Krishna MD Specimen See Note [facility] Comment on above: Result Comment: (NOT E) Initial sample Performed By: [facility] [address] [place] [address] Almond Grinder: Jose Joseph MD, PhD CLIA Number: [id number] Performed By: #### A AFPM #### [facility] [address] [place] [address] Personal Care Attendant: Kenneth Krishna MD Urinalysis macro (dipstick) panel (U)on 01-20-2025 Bilirubin, UA Negative Negative - 4(70) +++ mg/dL [facility] Blood, UA Negative Negative - 50 Warren/mcL [facility] Healthcare Comment on above: trace Clarity, UA Clear [facility] Color, UA Renita [facility] Glucose, UA Negative Negative - 2000(110) ++++ mg/dL [facility] Interpretation and review of laboratory results Abnormal [facility] Ketones, UA Positive Negative - 160(16) ++++ mg/dL [facility] Leukocytes, UA Trace Negative - 500+++ Malick/mcL [facility] Nitrite, UA Negative Negative - Positive [facility] Healthcare pH, UA 7 5 - 9 [facility] Protein, UA Trace Negative - 2000(20) ++++ mg/dL [facility] Spec Grav, UA 1.02 1 - 1.03 [facility] Urobilinogen, UA 1.0 0.2 - 12 mg/dL [facility] Cult,Urineon 12-24-2024 Cult,Urine Specimen Description .URINE Culture NO GROWTH Report Status FINAL 12/24/2024 Normal [facility] Comment on above: Performed By: #### U RC #### [facility] [address] [place] [address] Personal Care Attendant: Jason Rodriguez MD [facility] [address] [place], [place] [id number] Personal Care Attendant: Sherwin Elam MD HIV Ag/Abon 12-24-2024 HIV Ag/Ab Non-Reactive Normal [facility] Comment on above: Result Comment: No l aboratory evidence of HIV infection. If acute HIV infection is suspected, consider testing for HIV-1 RNA. Performed By: #### R UBI, HBS, TREP, AHCV, HIVCMB, GLYHGB #### [place] [id number] [place] [address] Personal Care Attendant: Jason Rodriguez MD #### SIDNEY ZENG #### [facility] [address], [place] [id number] Personal Care Attendant: Sherwin Elam MD Hemoglobin A1Con 12-24-2024 Glucose [Mass/Vol] 94 mg/dL Normal [facility] Comment on above: Result Comment: The ADA and AACC recommend providing the estimated average glucose result to permit better patient understanding of their HBA1c result. Performed By: #### R UBI, HBS, TREP, AHCV, HIVCMB, GLYHGB #### [address] [address] Personal Care Attendant: Jason Rodriguez MD #### CDP SIDNEY #### [facility] [address] [place], [place] [id number] Personal Care Attendant: Sherwin Elam MD HbA1c (Bld) [Mass fraction] 4.9 % Normal 4.0-6.0 [facility] Comment on above: Performed By: #### R UBI, HBS, TREP, AHCV, HIVCMB, GLYHGB #### [id number] [place] [address] Personal Care Attendant: Jason Rodriguez MD #### CDP, SIDNEY #### [facility] [address], [place] [id number] Personal Care Attendant: Sherwin Elam MD Hep B Surf Agon 12-24-2024 Hep B Surf Ag Non-Reactive Normal NR [facility] Comment on above: Performed By: #### R UBI, HBS, TREP, AHCV, HIVCMB, GLYHGB #### [address] [address] Personal Care Attendant: Jason Rodriguez MD #### KARRI, SIDNEY #### [facility] [address] [place] [address] Personal Care Attendant: Sherwin Elam MD Hep C Abon 12-24-2024 Hep C Ab Non-Reactive Normal NR [facility] [...] UBI, HBS, TREP, AHCV, HIVCMB, GLYHGB #### [address] [address] Personal Care Attendant: Jason Rodriguez MD #### CDP, SIDNEY #### [facility] [address], [place] [id number] Personal Care Attendant: Sherwin Elam MD Rubella Ab, IgGon 12-24-2024 Rubella Ab, IgG 78.0 IU/mL Normal [facility] Comment on above: Result Comment: <10 NON REACTIVE Negative for Anti-Rubella IgG >=10 REACTIVE Positive for Anti Rubella IgG The presence of IgG antibody to Rubella virus is an indication of previous exposure either by prior infection or vaccination. Performed By: #### R UBI, HBS, TREP, AHCV, HIVCMB, GLYHGB #### [facility] [place], [place] [id number] Personal Care Attendant: Jason Rodriguez MD #### KARRI, SIDNEY #### [facility] [address] [place] [address] Personal Care Attendant: Sherwin Elam MD T.pallidum Ab Screenon 12-24 T.pallidum Ab Screen Non-Reactive Normal [facility] Comment on above: Result Comment: T. pallidum antibodies are not detected. There is no serological evidence of infection with T. pallidum (early primary syphilis cannot be excluded). Retest in 2-4 weeks if syphilis is clinically suspect. Performed By: #### R UBI, HBS, TREP, AHCV, HIVCMB, GLYHGB #### [address] [phone] Personal Care Attendant: Jason Rodriguez MD #### KARRI, SIDNEY #### [facility] [address] [place] [address] Personal Care Attendant: Sherwin Elam MD CBC with Auto Differentialon 12-23-2024 Basophils (Bld) [#/Vol] 0.02 10*3/uL [facility] Basophils/100 WBC (Bld) 0 % 0 - 2 % [facility] Eosinophils (Bld) [#/Vol] 0.13 10*3/uL [facility] Eosinophils/100 WBC (Bld) 2 % 0 - 5 % [facility] Erythrocyte distribution width (RBC) [Ratio] 12.5 % 12.1 - 15.2 % [facility] Hematocrit (Bld) [Volume fraction] 35.9 % Low 36.0 - 46.0 % [facility] Hemoglobin (Bld) [Mass/Vol] 12.5 g/dL 12.0 - 16.0 g/dL [facility] Immature granulocytes (Bld) [#/Vol] 0.02 10*3/uL [facility] Immature granulocytes/100 WBC (Bld) 0 % 0 - 5 % [facility] Interpretation and review of laboratory results Abnormal [facility] Lymphocytes/100 WBC (Bld) 21 % 15 - 40 % [facility] Lymphocytes/100 WBC (Bld) 1.55 % [facility] MCH (RBC) [Entitic mass] 29.6 pg 26.0 - 34.0 pg [facility] MCHC (RBC) [Mass/Vol] 34.8 g/dL 31.0 - 37.0 g/dL [facility] MCV (RBC) [Entitic vol] 84.9 fL 80.0 - 100.0 fL [facility] Monocytes/100 WBC (Bld) 9 % High 4 - 8 % [facility] Monocytes/100 WBC (Bld) 0.65 % [facility] Neutrophils/100 WBC (Bld) 68 % 47 - 75 % [facility] Platelet mean volume (Bld) [Entitic vol] 9.9 fL 6.0 - 12.0 fL [facility] Platelets (Bld) [#/Vol] 238 10*3/uL [facility] RBC (Bld) [#/Vol] 4.23 10*6/uL 4.00 - 5.2 0 m/uL [facility] Segmented neutrophils/100 WBC (Bld) 4.87 % [facility] WBC other (Bld) [#/Vol] 7.2 [facility] CBC with Diffon 12-23-2024 Abs. Basophil 0.02 k/uL Normal 0.00-0.20 [facility] Comment on above: Performed By: #### R UBI, HBS, TREP, AHCV, HIVCMB, GLYHGB #### [address] [phone] Personal Care Attendant: Jason Rodriguez MD #### KARRI, SIDNEY #### [facility] [address] [place] [address] Personal Care Attendant: Sherwin Elam MD Abs.Imm.Granulocyte 0.02 k/uL Normal 0.00-0.30 [facility] Comment on above: Performed By: #### R UBI, HBS, TREP, AHCV, HIVCMB, GLYHGB #### [address] [phone] Personal Care Attendant: Jason Rodriguez MD #### KARRI, SIDNEY #### [facility] [address] [place] [address] Personal Care Attendant: Sherwin Elam MD Abs.Neutrophil (Seg) 4.87 k/uL Normal 2.5-7.0 [facility] Comment on above: Performed By: #### R UBI, HBS, TREP, AHCV, HIVCMB, GLYHGB #### [place] [address] Personal Care Attendant: Jason Rodriguez MD #### KARRI, SIDNEY #### [facility] [address] [phone] Personal Care Attendant: Sherwin Elam MD Basophils/100 WBC (Bld) 0 % Normal 0-2 [facility] Comment on above: Performed By: #### R UBI, HBS, TREP, AHCV, HIVCMB, GLYHGB #### [address] [phone] Personal Care Attendant: Jason Rodriguez MD #### CDP, SIDNEY #### [facility] [address] [place], [place] [phone] Personal Care Attendant: Sherwin Elam MD Eosinophils (Bld) [#/Vol] 0.13 10*3/uL Normal 0.00-0.40 [facility] Comment on above: Performed By: #### R UBI, HBS, TREP, AHCV, HIVCMB, GLYHGB #### [address] [phone] Personal Care Attendant: Jason Rodriguez MD #### KARRI, SIDNEY #### [facility] [address] [phone] Personal Care Attendant: Sherwin Elam MD Eosinophils/100 WBC (Bld) 2 % Normal 0-5 [facility] Comment on above: Performed By: #### R UBI, HBS, TREP, AHCV, HIVCMB, GLYHGB #### [address] [phone] Personal Care Attendant: Jason Rodriguez MD #### KARRI, SIDNEY #### [facility] [address] [phone] Personal Care Attendant: Sherwin Elam MD Erythrocyte distribution width (RBC) [Ratio] 12.5 % Normal 12.1-15.2 [facility] Comment on above: Performed By: #### R UBI, HBS, TREP, AHCV, HIVCMB, GLYHGB #### [id number] Personal Care Attendant: Jason Rodriguez MD #### KARRI, SIDNEY #### [facility] [address] [phone] Personal Care Attendant: Sherwin Elam MD Hematocrit (Bld) [Volume fraction] 35.9 % Low 36.0-46.0 [facility] Comment on above: Performed By: #### R UBI, HBS, TREP, AHCV, HIVCMB, GLYHGB #### [address] [phone] Personal Care Attendant: Jason Rodriguez MD #### CDP, SIDNEY #### [facility] [address] [place], [place] [phone] Personal Care Attendant: Sherwin Elam MD Hemoglobin (Bld) [Mass/Vol] 12.5 g/dL Normal 12.0-16.0 [facility] Comment on above: Performed By: #### R UBI, HBS, TREP, AHCV, HIVCMB, GLYHGB #### [address] [phone] Personal Care Attendant: Jason Rodriguez MD #### KARRI, SIDNEY #### [facility] [address] [place] [address] Personal Care Attendant: Sherwin Elam MD Immature granulocytes/100 WBC (Bld) 0 % Normal 0-5 [facility] Comment on above: Performed By: #### R UBI, HBS, TREP, AHCV, HIVCMB, GLYHGB #### [address] [phone] Personal Care Attendant: Jason Rodriguez MD #### KARRI, SIDNEY #### [facility] [address] [place] [address] Personal Care Attendant: Sherwin Elam MD Lymphocytes (Bld) [#/Vol] 1.55 10*3/uL Normal 1.00-4.80 [facility] Comment on above: Performed By: #### R UBI, HBS, TREP, AHCV, HIVCMB, GLYHGB #### [address] [phone] Personal Care Attendant: Jason Rodriguez MD #### KARRI, SIDNEY #### [facility] [address] [place] [address] Personal Care Attendant: Sherwin Elam MD Lymphocytes/100 WBC (Bld) 21 % Normal 15-40 [facility] Comment on above: Performed By: #### R UBI, HBS, TREP, AHCV, HIVCMB, GLYHGB #### [address] [phone] Personal Care Attendant: Jason Rodriguez MD #### CDP, SIDNEY #### [facility] [address], [place] [phone] Personal Care Attendant: Sherwin Elam MD MCH (RBC) [Entitic mass] 29.6 pg Normal 26.0-34.0 [facility] Comment on above: Performed By: #### R UBI, HBS, TREP, AHCV, HIVCMB, GLYHGB #### [address] [id number] Personal Care Attendant: Jason Rodriguez MD #### KARRI, SIDNEY #### [facility] [address] [place] [address] Personal Care Attendant: Sherwin Elam MD MCHC (RBC) [Mass/Vol] 34.8 g/dL Normal 31.0-37.0 [facility] Comment on above: Performed By: #### R UBI, HBS, TREP, AHCV, HIVCMB, GLYHGB #### [address] [phone] Personal Care Attendant: Jason Rodriguez MD #### KARRI, SIDNEY #### [facility] [address], [place] [phone] Personal Care Attendant: Sherwin Elam MD MCV (RBC) [Entitic vol] 84.9 fL Normal 80.0-100.0 [facility] Comment on above: Performed By: #### R UBI, HBS, TREP, AHCV, HIVCMB, GLYHGB #### [address] [phone] Personal Care Attendant: Jason Rodriguez MD #### CDP, SIDNEY #### [facility] [address] [place] [address] Personal Care Attendant: Sherwin Elam MD Monocytes (Bld) [#/Vol] 0.65 10*3/uL Normal 0.00-1.00 [facility] Comment on above: Performed By: #### R UBI, HBS, TREP, AHCV, HIVCMB, GLYHGB #### [address] [phone] Personal Care Attendant: Jason Rodriguez MD #### KARRI, SIDNEY #### [facility] [address], [place] 2015690 Personal Care Attendant: Sherwin Elam MD Monocytes/100 WBC (Bld) 9 % High 4-8 [facility] Comment on above: Performed By: #### R UBI, HBS, TREP, AHCV, HIVCMB, GLYHGB #### [address] [phone] Personal Care Attendant: Jason Rodriguez MD #### KARRI, SIDNEY #### [facility] [address], [place] [phone] Personal Care Attendant: Sherwin Elam MD Neutrophil (Seg) 68 % Normal 47-75 [facility] Comment on above: Performed By: #### R UBI, HBS, TREP, AHCV, HIVCMB, GLYHGB #### [address] [phone] Personal Care Attendant: Jason Rodriguez MD #### KARRI, SIDNEY #### [facility] [address], [place] [phone] Personal Care Attendant: Sherwin Elam MD Platelet mean volume (Bld) [Entitic vol] 9.9 fL Normal 6.0-12.0 [facility] Comment on above: Performed By: #### R UBI, HBS, TREP, AHCV, HIVCMB, GLYHGB #### [address] [phone] Personal Care Attendant: Jason Rodriguez MD #### CDP, SIDNEY #### [facility] [address], [place] [phone] Personal Care Attendant: Sherwin Elam MD Platelets (Bld) [#/Vol] 238 10*3/uL Normal 140-450 [facility] Comment on above: Performed By: #### R UBI, HBS, TREP, AHCV, HIVCMB, GLYHGB #### [facility] [address] [place] [address] [phone] Personal Care Attendant: Jason Rodriguez MD #### CDP, SIDNEY #### [facility] [address], [place] [phone] Personal Care Attendant: Sherwin Elam MD RBC (Bld) [#/Vol] 4.23 10*6/uL Normal 4.00-5.20 [facility] Comment on above: Performed By: #### R UBI, HBS, TREP, AHCV, HIVCMB, GLYHGB #### [address] [phone] Personal Care Attendant: Jason Rodriguez MD #### CDP, SIDNEY #### [facility] [address], [place] [phone] Personal Care Attendant: Sherwin Elam MD WBC (Bld) [#/Vol] 7.2 10*3/uL Normal 3.5-11.0 [facility] Comment on above: Performed By: #### R UBI, HBS, TREP, AHCV, HIVCMB, GLYHGB #### [facility] [address] [place] [phone] Personal Care Attendant: Jason Rodriguez MD #### CDP, SIDNEY #### [facility] [address], [place] [phone] Personal Care Attendant: Sherwin Elam MD Drug Scr, Abuse, Uron 2024 Amphetamine(s),Ur Negative Normal NEG [facility] Comment on above: Result Comment: Cuto ff: 1000 ng/mL Performed By: #### R UBI, HBS, TREP, AHCV, HIVCMB, GLYHGB #### [address] [address] Personal Care Attendant: Jason Rodriguez MD #### CDP, SIDNEY #### [facility] [address] [place] [address] Personal Care Attendant: Sherwin Elam MD Barbiturate(s),Ur Negative Normal NEG [facility] Comment on above: Result Comment: Cuto ff: 200 ng/ml Performed By: #### R UBI, HBS, TREP, AHCV, HIVCMB, GLYHGB #### [address] [address] Personal Care Attendant: Jason Rodriguez MD #### KARRI, SIDNEY #### [facility] [address] [place] [address] Personal Care Attendant: Sherwin Elam MD Benzodiazepine(s) Negative Normal NEG [facility] Comment on above: Result Comment: Cuto ff: 200 ng/ml Performed By: #### R UBI, HBS, TREP, AHCV, HIVCMB, GLYHGB #### [address] [address] Personal Care Attendant: Jason Rodriguez MD #### CDP, SIDNEY #### [facility] [address] [place] [address] Personal Care Attendant: Sherwin Elam MD Cannabinoid(s),Ur Negative Normal NEG [facility] Comment on above: Result Comment: Cuto ff: 50 ng/ml Performed By: #### R UBI, HBS, TREP, AHCV, HIVCMB, GLYHGB #### [address] [address] Personal Care Attendant: Jason Rodriguez MD #### CDP, SIDNEY #### [facility] [address] [place] [address] Personal Care Attendant: Sherwin Elam MD Fentanyl, Urine Negative Normal NEG [facility] Comment on above: Result Comment: Cuto ff: 5 ng/ml Performed By: #### R UBI, HBS, TREP, AHCV, HIVCMB, GLYHGB #### [address] [address] Personal Care Attendant: Jason Rodriguez MD #### CDP, SIDNEY #### [facility] [address] [place] [address] Personal Care Attendant: Sherwin Elam MD Methadone Ql (U) Negative Normal NEG [facility] Comment on above: Result Comment: Cuto ff: 300 ng/ml Performed By: #### R UBI, HBS, TREP, AHCV, HIVCMB, GLYHGB #### [address] [address] Personal Care Attendant: Jason Rodriguez MD #### CDP, SIDNEY #### [facility] [address] [place] [address] Personal Care Attendant: Sherwin Elam MD Opiate(s), Ur Negative Normal NEG [facility] Comment on above: Result Comment: Cuto ff: 300 ng/ml Performed By: #### R UBI, HBS, TREP, AHCV, HIVCMB, GLYHGB #### [address] [address] Personal Care Attendant: Jason Rodriguez MD #### CDP, SIDNEY #### [facility] [address] [place] [address] Personal Care Attendant: Sherwin Elam MD Oxycodone, Urine Negative Normal NEG [facility] Comment on above: Result Comment: Cuto ff: 100 ng/ml Performed By: #### R UBI, HBS, TREP, AHCV, HIVCMB, GLYHGB #### [address] [address] Personal Care Attendant: Jason Rodriguez MD #### CDP, SIDNEY #### [facility] [address], [place] [id number] Personal Care Attendant: Sherwin Elam MD Phencyclidine, Ur Negative Normal NEG [facility] Comment on above: Result Comment: Cuto ff: 25 ng/ml Performed By: #### R UBI, HBS, TREP, AHCV, HIVCMB, GLYHGB #### [address] [address] Personal Care Attendant: Jason Rodriguez MD #### CDP, SIDNEY #### [facility] [address], [place] [phone] Personal Care Attendant: Sherwin Elam MD Interpretive Info This method is a screening test to detect only these drug classes as part of a Normal [facility] Comment on above: Result Comment: medi luis workup. Confirmatory testing by another method should be ordered if clinically indicated. Performed By: #### R UBI, HBS, TREP, AHCV, HIVCMB, GLYHGB #### [address] [address] Personal Care Attendant: Jason Rodriguez MD #### CDP, SIDNEY #### [facility] [address], [place] [phone] Personal Care Attendant: Sherwin Elam MD Drug Scr, Abuse, UrOrdered B y: Janay Vázquez on 12-23-2024 Cocaine Metabolite Negative Normal NEG [facility] Comment on above: Result Comment: Cuto ff: 300 ng/ml Performed By: #### R UBI, HBS, TREP, AHCV, HIVCMB, GLYHGB #### [address] [address] Personal Care Attendant: Jason Rodriguez MD #### CDP, SIDNEY #### [facility] [address] [place] [address] Personal Care Attendant: Sherwin Elam MD Drug Screen, UrineOrdered By : Janay Vázquez on 12-23-2024 Amphetamine/Methamph etamine Negative [facility] Barbiturates Negative [facility] Benzodiazepines Negative [facility] Ecstasy Negative [facility] Methadone Negative [facility] Opiates Negative [facility] Oxycodone Negative [facility] Phencyclidine Negative [facility] Thc Marijuana, Urine Negative [facility] HIV 1&2 AB/AG Screen (P24 AG )on 12-23-2024 HIV 1&2 AB/AG Non-Reactive [facility] Hemoglobin A1con 12-23-2024 HbA1c (Bld) [Mass fraction] 4.9 % 4.0 - 6.0 % [facility] Hepatitis B surface antigeno n 12-23-2024 Hepatitis B Surface Antigen Non-Reactive [facility] Hepatitis C(HCV) Ab w/ Refle x to PCRon 12-23-2024 HCV Ab Ql (S) Non-Reactive [facility] MHPT CBC WITH DIFFon 025 Basophils/100 WBC (Bld) 0 % 0 - 2 % [facility] Eosinophils/100 WBC (Bld) 2 % 0 - 5 % [facility] Erythrocyte distribution width (RBC) [Ratio] 12.5 % 12.1 - 15.2 % [facility] Hematocrit (Bld) [Volume fraction] 35.9 % Low 36.0 - 46.0 % [facility] Hemoglobin (Bld) [Mass/Vol] 12.5 g/dL 12.0 - 16.0 g/dL [facility] Immature granulocytes/100 WBC (Bld) 0 % 0 - 5 % [facility] Interpretation and review of laboratory results Abnormal [facility] Lymphocytes/100 WBC (Bld) 21 % 15 - 40 % [facility] MCH (RBC) [Entitic mass] 29.6 pg 26.0 - 34.0 pg [facility] MCHC (RBC) [Mass/Vol] 34.8 g/dL 31.0 - 37.0 g/dL [facility] MCV (RBC) [Entitic vol] 84.9 fL 80.0 - 100.0 fL [facility] MHPT ABS. BASOPHIL 0.02 [facility]PT ABS. EOSINOPHIL 0.13 [facility] LY[facility] 1.55 [facility]. MONOCYTE 0.65 [facility] ABS.IMM.GRANULOCYTE 0.02 [facility].NEUTROPHIL (SEG) 4.87 [facility] 238 [facility] MHPT WBC COUNT 7.2 [facility] Monocytes/100 WBC (Bld) 9 % High 4 - 8 % [facility] Platelet mean volume (Bld) [Entitic vol] 9.9 fL 6.0 - 12.0 fL [facility] RBC (Bld) [#/Vol] 4.23 10*6/uL 4.00 - 5.2 0 m/uL [facility] Segmented neutrophils/100 WBC (Bld) 68 % 47 - 75 % [facility] Original Ordering Provider: CAIN ADAN [facility], [facility]BUSE, URon 0 12-23-2024 MHPT [...] 300 ng/ml MHPT FENTANYL, URINE Negative NEG [facility] Comment on above: Cutoff: 5 ng/ml MHPT INTERPRETIVE INFO This method is a screening test to detect only these drug classes as part of a [facility] Comment on above: medical workup. Conf irmatory testing by another method should be ordered if clinically indicated. MHPT METHADONE Negative NEG [facility] Comment on above: Cutoff: 300 ng/ml MHPT OPIATE(S), UR Negative NEG [facility] Comment on above: Cutoff: 300 ng/ml MHPT OXYCODONE, URINE Negative NEG [facility] Comment on above: Cutoff: 100 ng/ml MHPT PHENCYCLIDINE, UR Negative NEG [facility] Comment on above: Cutoff: 25 ng/ml Original Ordering Provider: CAIN ADAN [facility] No Panel Informationon 12-23 [facility] TYPE AND SCREENon 0 12-23-2024 ABO and Rh group Nom (Bld) Blood group B Rh(D) positive [facility] Blood group antibodies identified Nom Negative [facility] Type + Scrnon 12-23 Type + Scrn Negative Normal [facility] Comment on above: Performed By: #### R UBI, HBS, TREP, AHCV, HIVCMB, GLYHGB #### [facility] [address] [place] [address] Personal Care Attendant: Jason Rodriguez MD #### CDP, SIDNEY #### [facility] [address] [place] [address] Personal Care Attendant: Sherwin Elam MD Type and screenon 12-23-2024 Abo/Rh(D) Positive [facility] Urinalysis macro (dipstick) panel (U)on 12-23-2024 Bilirubin, UA Negative Negative - 4(70) +++ mg/dL [facility] Blood, UA Negative Negative - 50 Warren/mcL [facility] Clarity, UA Clear [facility] Color, UA Yellow [facility] Glucose, UA Negative Negative - 1999(110) ++++ mg/dL [facility] Interpretation and review of laboratory results Normal [facility] Ketones, UA Negative Negative - 160(16) ++++ mg/dL [facility] Leukocytes, UA Negative Negative - 500+++ Malick/mcL [facility] Nitrite, UA Negative Negative - Positive [facility] pH, UA 7 5 - 9 [facility] Protein, UA Negative Negative - 1999(20) ++++ mg/dL [facility] Spec Grav, UA 1.02 1 - 1.03 [facility] Urobilinogen, UA 1.0 0.2 - 12 mg/dL [facility] Urine Drug Screenon 12-23-19 25 Amphetamines Ql (U) Negative NEGATIVE [facility] Comment on above: Cutoff: 1000 ng/mL Barbiturates Screen Ql (U) Negative NEGATIVE [facility] Comment on above: Cutoff: 200 ng/ml Benzodiazepines Ql (U) Negative NEGATIVE [facility] Comment on above: Cutoff: 200 ng/ml Cannabinoids Screen Ql (U) Negative NEGATIVE [facility] Comment on above: Cutoff: 50 ng/ml Cocaine Ql (U) Negative NEGATIVE [facility] Comment on above: Cutoff: 300 ng/ml fentaNYL Ql (U) Negative NEGATIVE [facility] Comment on above: Cutoff: 5 ng/ml Methadone Ql (U) Negative NEGATIVE [facility] Comment on above: Cutoff: 300 ng/ml Opiates Screen Ql (U) Negative NEGATIVE [facility] Comment on above: Cutoff: 300 ng/ml oxyCODONE Ql (U) Negative NEGATIVE [facility] Comment on above: Cutoff: 100 ng/ml Phencyclidine Ql (U) Negative NEGATIVE [facility] Comment on above: Cutoff: 25 ng/ml Test Information This method is a screening test to detect only these drug classes as part of a medical workup. Confirmatory testing by another method should be ordered if clinically indicated. silkfred HCG ( test) Ql (U)o n 11-25-2024 Interpretation and review of laboratory results Abnormal [facility] Preg Test, Ur Positive Negative [facility] OB TRANSVAGINALon 025 OB TRANSVAGINAL TITLE OF [...] 10 weeks 0 days. Dictated and transcribed 11/26/24/sara This report has been electronically signed and approved by the interpreting radiologist. Normal Not Available Comment on above: Order Comment: US OB TRANSVAGINAL No LMP recorded. Urinalysis macro (dipstick) panel (U)on 11-25-2024 Bilirubin, UA Negative Negative - 4(70) +++ mg/dL [facility] Blood, UA Negative Negative - 50 Warren/mcL [facility] Clarity, UA Clear [facility] Color, UA Yellow [facility] Glucose, UA Negative Negative - 2000(110) ++++ mg/dL [facility] Interpretation and review of laboratory results Normal [facility] Ketones, UA Negative Negative - 160(16) ++++ mg/dL [facility] Leukocytes, UA Negative Negative - 500+++ Malick/mcL [facility] Nitrite, UA Negative Negative - Positive [facility] pH, UA 6 5 - 9 [facility] Protein, UA Negative Negative - 2000(20) ++++ mg/dL [facility] Spec Grav, UA 1.02 1 - 1.03 [facility] Urobilinogen, UA 0.2 0.2 - 12 mg/dL [facility] HCG, Quanton 10-20-2024 HCG, Quant 812.4 mIU/mL High <5 [facility] Comment on above: Result Comment: Non-preg premeno <=5 Postmeno <=8 Male <=3 If HCG results do not concur with clinical observations, additional testing to confirm results is recommended. Performed By: #### R UBI, HBS, TREP, AHCV, HIVCMB, GLYHGB #### [facility] [employer] [address] [place] [address] Personal Care Attendant: Jason Rodriguez MD #### CDP, SIDNEY #### [facility] [address] [place] [address] Personal Care Attendant: Sherwin Elam MD HCG, Quantitative, on 10-20-2024 HCG.beta subunit Qn 812.4 m[IU]/mL High NINF B on [facility] Comment on above: Non-preg premeno <=5 Postmeno <=8 Male <=3 If HCG results do not concur with clinical observations, additional testing to confirm results is recommended. Interpretation and review of laboratory results Abnormal [facility] HCG, Quanton 10-18-2024 HCG, Quant 293.1 mIU/mL High <5 [facility] Comment on above: Result Comment: Non-preg premeno <=5 Postmeno <=8 Male <=3 If HCG results do not concur with clinical observations, additional testing to confirm results is recommended. Performed By: #### R UBI, HBS, TREP, AHCV, HIVCMB, GLYHGB #### [facility] [employer] [address], [place] [id number] Personal Care Attendant: Jason Rodriguez MD #### CDP, SIDNEY #### [facility] [address] [place] [address] Personal Care Attendant: Sherwin Elam MD HCG, Quantitative, on 10-18-2024 HCG.beta subunit Qn 293.1 m[IU]/mL High NINF B [facility] Comment on above: Non-preg premeno <=5 Postmeno <=8 Male <=3 If HCG results do not concur with clinical observations, additional testing to confirm results is recommended. Interpretation and review of laboratory results Abnormal [facility] Estradiolon 04-15-2022 Estradiol 257.1 pg/mL 27 - 314 pg/mL [facility] Comment on above: FEMALES: Normally menstruating Luteal phase 33-298 Follicular phase 27-156 Midcycle phase 48-314 Postmenopausal (untreated) 5-50 Fulvestrant treatment will show an increased estradiol concentration with this methodology. Alternate methodologies are available upon request. No Panel Informationon 04-15 [facility] Progesteroneon 04-15-2022 Progesterone 39.8 ng/mL [facility] Comment on above: FEMALE (healthy): Follicular phase 0.06-0.89 Ovulation phase 0.12-12.00 Luteal phase 1.83-23.90 Postmenopausal <0.13 HCG, Quantitative, on 02-08-2022 hCG Quant <1 <5 mIU/mL [facility] Comment on above: Non-preg premeno <=5 Postmeno <=8 Male <=3 If HCG results do not concur with clinical observations, additional testing to confirm results is recommended. Elevated results not associated with may be found in patients with other diseases such as tumors of the germ cells (testis, ovaries, etc.), bladder, pancreas, stomach, lungs, and liver. [employer] TSHon 02-08-2022 TSH Qn 1.05 m[IU]/L [facility] [facility] Estradiolon 01-14-2022 Estradiol 326 pg/mL High 27 - 314 pg/mL [facility] Comment on above: FEMALES: Normally menstruating Luteal phase 33-298 Follicular phase 27-156 Midcycle phase 48-314 Postmenopausal (untreated) 5-50 Fulvestrant treatment will show an increased estradiol concentration with this methodology. Alternate methodologies are available upon request. Interpretation and review of laboratory results Abnormal [facility] HCG, Quantitative, on 01-14-2022 hCG Quant <1 <5 IU/L [facility] [employer] Comment on above: Non-preg premeno <=5 Postmeno <=8 Male <=3 If HCG results do not concur with clinical observations, additional testing to confirm results is recommended. Elevated results not associated with may be found in patients with other diseases such as tumors of the germ cells (testis, ovaries, etc.), bladder, pancreas, stomach, lungs, and liver. [employer] No Panel Informationon 01-14 [employer] Progesteroneon 01-14-2022 Progesterone 47.49 ng/mL [facility] Comment on above: FEMALE (healthy): Follicular phase 0.06-0.89 Ovulation phase 0.12-12.00 Luteal phase 1.83-23.90 Postmenopausal <0.13 Estradiolon 01-08-2022 Estradiol 251 pg/mL 27 - 314 pg/mL [facility] Comment on above: FEMALES: Normally menstruating Luteal phase 33-298 Follicular phase 27-156 Midcycle phase 48-314 Postmenopausal (untreated) 5-50 Fulvestrant treatment will show an increased estradiol concentration with this methodology. Alternate methodologies are available upon request. No Panel Informationon 01-08 [employer] Progesteroneon 01-08-2022 Progesterone 50.58 ng/mL [facility] Comment on above: FEMALE (healthy): Follicular phase 0.06-0.89 Ovulation phase 0.12-12.00 Luteal phase 1.83-23.90 Postmenopausal <0.13 HCG, Quantitative, on 12-10-2021 hCG Quant <1 <5 IU/L [employer] Comment on above: Non-preg premeno <=5 Postmeno <=8 Male <=3 If HCG results do not concur with clinical observations, additional testing to confirm results is recommended. Elevated results not associated with may be found in patients with other diseases such as tumors of the germ cells (testis, ovaries, etc.), bladder, pancreas, stomach, lungs, and liver. [employer] Estradiolon 09-26-2021 Estradiol 434 pg/mL High 27 - 314 pg/mL [facility] Comment on above: FEMALES: Normally menstruating Luteal phase 33-298 Follicular phase 27-156 Midcycle phase 48-314 Postmenopausal (untreated) 5-50 Fulvestrant treatment will show an increased estradiol concentration with this methodology. Alternate methodologies are available upon request. Interpretation and review of laboratory results Abnormal [employer] HCG, Quantitative, on 09-26-2021 hCG Quant 652 High <5 IU/L [employer] Comment on above: Non-preg premeno <=5 Postmeno <=8 Male <=3 If HCG results do not concur with clinical observations, additional testing to confirm results is recommended. Elevated results not associated with may be found in patients with other diseases such as tumors of the germ cells (testis, ovaries, etc.), bladder, pancreas, stomach, lungs, and liver. Interpretation and review of laboratory results Abnormal [employer] No Panel Informationon 09-26 [employer] Progesteroneon 09-26-2021 Progesterone 45.63 ng/mL [facility] Comment on above: FEMALE (healthy): Follicular phase 0.06-0.89 Ovulation phase 0.12-12.00 Luteal phase 1.83-23.90 Postmenopausal <0.13 Estradiolon 09-17-2021 Estradiol 389 pg/mL High 27 - 314 pg/mL [facility] Comment on above: FEMALES: Normally menstruating Luteal phase 33-298 Follicular phase 27-156 Midcycle phase 48-314 Postmenopausal (untreated) 5-50 Fulvestrant treatment will show an increased estradiol concentration with this methodology. Alternate methodologies are available upon request. Interpretation and review of laboratory results Abnormal [employer] No Panel Informationon 09-17 [employer] Progesteroneon 09-17-2021 Progesterone 15.02 ng/mL [employer] Comment on above: FEMALE (healthy): Follicular phase 0.06-0.89 Ovulation phase 0.12-12.00 Luteal phase 1.83-23.90 Postmenopausal <0.13 TSH without ReflexOrdered By : Pedro Luis Dorantes on 06-25-2021 TSH Qn 1.08 m[IU]/L [employer] Work Phone: [facility] Phone: HCG, Quantitative, on 02-15-2021 hCG Quant <1 <5 IU/L [facility]: Comment on above: Non-preg premeno <=5 [...] Estradiol 66 pg/mL 27 - 314 pg/mL [employer] Phone: Comment on above: FEMALES: Normally menstruating Luteal phase 33-298 Follicular phase 27-156 Midcycle phase 48-314 Postmenopausal (untreated) 5-50 Fulvestrant treatment will show an increased estradiol concentration with this methodology. Alternate methodologies are available upon request. Follicle Stimulating Hormone on 01-12-2021 FSH 5.3 U/L 1.7 - 21.5 U/L [employer] Phone: Comment on above: Reference Range: Male: 1.5-12.4 Ovulating Female: Follicular Phase 3.5-12.5 Ovulation Phase 4.7-21.5 Luteal Phase 1.7-7.7 Postmenopausal Female: 25.8-134.8 HIV Screenon 01-12-2021 HIV Ag/Ab NONREACTIVE NONREACTIVE [facility]: Comment on above: No laboratory eviden ce of HIV infection. If acute HIV infection is suspected, consider testing for HIV-1 RNA. Hepatitis B Core Antibody, T otalon 01-12-2021 Hep B Core Total Ab NONREACTIVE NONREACTIVE [employer] [facility] Work Phone: Hepatitis B Surface Antigeno n 01-12-2021 Hepatitis B Surface Ag NONREACTIVE NONREACTIVE [employer] Work Phone: Hepatitis C Antibodyon 01-12 Hepatitis C Ab NONREACTIVE NONREACTIVE RO[facility] Work Phone: Comment on above: The [...] LH 10.8 U/L 1.0 - 95.6 U/L [employer] Work Phone: Comment on above: Reference Range: Male: 1.7-8.6 Ovulating Female: Follicular Phase 2.4-12.6 Ovulation Phase 14.0-95.6 Luteal Phase 1.0-11.4 Postmenopausal Female: 7.7-58.5 Progesteroneon 01-12-2021 Progesterone 0.13 ng/mL [facility]: Comment on above: FEMALE (healthy): Follicular phase 0.06-0.89 Ovulation phase 0.12-12.00 Luteal phase 1.83-23.90 Postmenopausal <0.13 Prolactinon 01-12-2021 Prolactin 7.58 ug/L 4.79 - 23.30 ug/L [facility]: Comment on above: The presence of macr oprolactin may cause interference in female patients with various endocrinological diseases or during . Rubella antibody, IgGon 01-01 Rubella virus IgG Ql (S) 52.4 IU/mL [facility]: Comment on above: REFERENCE RANGE: <5.0 NON-REACTIVE (non-immune) 5.0 TO 9.9 EQUIVOCAL >=10.0 REACTIVE (immune) HCG, Quantitative, on 01-11-2021 hCG Quant <1 <5 IU/L [facility]: Comment on above: Non-preg premeno <=5 [...] without Reflexon 021 TSH Qn 1.08 m[IU]/L [employer] Work Phone: TYPE AND SCREENon 01-11-2021 ABO/Rh Positive [facility] Phone: Arm Band Number NOT REPORTED [employer] Work Phone: Expiration Date 01/14/2021,2359 [employer] Work Phone: Vital Signs Date Time Vital Sign Value Performing Clinician Facility 06-13-2025 08:39-0400 Body mass index (BMI) [Ratio] 43.9 kg/m2 Christy MCKOY Work Phone: [facility] 06-13-2025 08:39-0400 Body weight 108.86 kg Christy MCKOY Work Phone: [facility] 06-13-2025 08:39-0400 Diastolic blood pressure 78 mm[Hg] Christy MCKOY Work Phone: [facility] 06-13-2025 08:39-0400 Systolic blood pressure 120 mm[Hg] Christy MCKOY Work Phone: [facility] 06-06-2025 08:50-0400 Body mass index (BMI) [Ratio] 43.86 kg/m2 Christy MCKOY Work Phone: [facility] 06-06-2025 08:50-0400 Body weight 108.77 kg Christy Prescott PA Work Phone: [facility] 06-06-2025 08:50-0400 Diastolic blood pressure 78 mm[Hg] Christy Efren PA Work Phone: [facility] 06-06-2025 08:50-0400 Systolic blood pressure 124 mm[Hg] Christy Prescott PA Work Phone: [facility] 05-30-2025 08:35-0400 Body mass index (BMI) [Ratio] 43.16 kg/m2 Cain Mendoza DO Work Phone: [facility] 05-30-2025 08:35-0400 Body weight 107.05 kg Cain Mendoza DO Work Phone: [facility] 05-30-2025 08:35-0400 Diastolic blood pressure 82 mm[Hg] Cain Mendoza DO Work Phone: [facility] 05-30-2025 08:35-0400 Systolic blood pressure 130 mm[Hg] Cain Mendoza DO Work Phone: [facility] 05-26-2025 08:55-0400 Body mass index (BMI) [Ratio] 43.07 kg/m2 Christy Efren PA Work Phone: [facility] 05-26-2025 08:55-0400 Body weight 106.82 kg Christy Prescott PA Work Phone: [facility] 05-26-2025 08:55-0400 Diastolic blood pressure 84 mm[Hg] Christy Efren PA Work Phone: [facility] 05-26-2025 08:55-0400 Systolic blood pressure 130 mm[Hg] Christy Prescott PA Work Phone: [facility] 05-16-2025 08:37-0400 Body mass index (BMI) [Ratio] 43.71 kg/m2 Cain Mendoza DO Work Phone: [facility] 05-16-2025 08:37-0400 Body weight 108.41 kg Cain Mendoza DO Work Phone: [facility] 05-16-2025 08:37-0400 Diastolic blood pressure 70 mm[Hg] Cain Mendoza DO Work Phone: [facility] 05-16-2025 08:37-0400 Systolic blood pressure 120 mm[Hg] Cain Mendoza DO Work Phone: [facility] 05-03-2025 09:06-0400 Body mass index (BMI) [Ratio] 43.99 kg/m2 Christy Efren PA Work Phone: [facility] 05-03-2025 09:06-0400 Body weight 109.09 kg Christy Efren PA Work Phone: [facility] 05-03-2025 09:06-0400 Diastolic blood pressure 86 mm[Hg] Christy Efren PA Work Phone: [facility] 05-03-2025 09:06-0400 Systolic blood pressure 130 mm[Hg] Christy Schwartz PA Work Phone: [facility] 04-18-2025 10:40-0400 Body mass index (BMI) [Ratio] 43.16 kg/m2 Cain Mendoza DO Work Phone: [facility] 04-18-2025 10:40-0400 Body weight 107.05 kg Cain Mendoza DO Work Phone: [facility] 04-18-2025 10:40-0400 Diastolic blood pressure 72 mm[Hg] Cain Mendoza DO Work Phone: [facility] 04-18-2025 10:40-0400 Systolic blood pressure 120 mm[Hg] Cain Mendoza DO Work Phone: [facility] 04-18-2025 10:34-0400 Body height 157.5 cm Cain Mendoza DO Work Phone: [facility] 03-30-2025 09:26-0400 Body weight 103.87 kg Christy Efren PA Work Phone: [facility] 03-30-2025 09:26-0400 Diastolic blood pressure 80 mm[Hg] Christy Prescott PA Work Phone: [facility] 03-30-2025 09:26-0400 Systolic blood pressure 122 mm[Hg] Christy MCKOY Work Phone: [facility] 03-03-2025 09:00-0400 Body weight 105.14 kg Cain Mendoza DO Work Phone: [facility] 03-03-2025 09:00-0400 Diastolic blood pressure 80 mm[Hg] Cain Mendoza DO Work Phone: [facility] 03-03-2025 09:00-0400 Systolic blood pressure 120 mm[Hg] Cain Mendoza DO Work Phone: [facility] 02-08-2025 09:34-0400 Body height 157.5 cm Jaida Chadwick MD Work Phone: [facility] 02-08-2025 09:34-0400 Body mass index (BMI) [Ratio] 42.24 kg/m2 Jaida Chadwick MD Work Phone: [facility] 02-08-2025 09:34-0400 Body weight 104.78 kg Jaida Chadwick MD Work Phone: [facility] 02-08-2025 09:34-0400 Diastolic blood pressure 80 mm[Hg] Jaida Chadwick MD Work Phone: [facility] 02-08-2025 09:34-0400 Heart rate 95 /min Jaida Chadwick MD Work Phone: [facility] 02-08-2025 09:34-0400 Systolic blood pressure 125 mm[Hg] Jaida Chadwick MD Work Phone: [facility] 01-26-2025 14:44-0400 Body height 157.5 cm Apollo LAWRENCE Work Phone: [facility] 01-26-2025 14:44-0400 Body mass index (BMI) [Ratio] 41.88 kg/m2 Apollo Martinez APRN-SKEIN WINDER Work Phone: [facility] 01-26-2025 14:44-0400 Body weight 103.87 kg Apollo Martinez COMMISSIONED SALES ASSOCIATE-[employer] Work Phone: [facility] 01-26-2025 14:44-0400 Diastolic blood pressure 60 mm[Hg] Apollo Martinez COMMISSIONED SALES ASSOCIATE-[employer] WINDER Work Phone: [facility] 01-26-2025 14:44-0400 Heart rate 87 /min Apollo Martinez COMMISSIONED SALES ASSOCIATE-[employer]IN WINDER Work Phone: [facility] 01-26-2025 14:44-0400 Systolic blood pressure 115 mm[Hg] Apollo Martinez COMMISSIONED SALES ASSOCIATE-[employer]IN WINDER Work Phone: [facility] 01-26-2025 14:25-0400 Body mass index (BMI) [Ratio] 41.87 kg/m2 [facility] 01-26-2025 14:25-0400 Body weight 103.87 kg [facility] 01-20-2025 08:42-0400 Body weight 103.87 kg Christy MCKOY Work Phone: [facility] 01-20-2025 08:42-0400 Diastolic blood pressure 70 mm[Hg] Christy MCKOY Work Phone: [facility] 01-20-2025 08:42-0400 Systolic blood pressure 120 mm[Hg] Christy MCKOY Work Phone: [facility] 12-30-2024 10:57-0500 Body height 157.5 cm Jaida Chadwick MD Work Phone: [facility] 11-25-2024 15:25-0500 Body weight 105.23 kg [facility] Nurse [facility] 11-25-2024 15:25-0500 Diastolic blood pressure 72 mm[Hg] [facility] Nurse [facility] 11-25-2024 15:25-0500 Systolic blood pressure 124 mm[Hg] [facility] Nurse [facility] 04-06-2024 12:06-0400 Body height 157.48 cm PHYSICIAN [facility] 04-06-2024 12:06-0400 Body mass index (BMI) [Ratio] 42 kg/m2 PHYSICIAN NO [facility] 04-06-2024 12:06-0400 Body weight 104.32 kg PHYSICIAN NO [facility] 04-06-2024 12:06-0400 Diastolic blood pressure 80 mm[Hg] PHYSICIAN NO [facility] 04-06-2024 12:06-0400 Heart rate 80 /min PHYSICIAN NO [facility] 04-06-2024 12:06-0400 Respiratory rate 20 /min PHYSICIAN NO [facility] 04-06-2024 12:06-0400 SaO2% (BldA) [Mass fraction] 99 % PHYSICIAN NO [facility] 04-06-2024 12:06-0400 Systolic blood pressure 124 mm[Hg] PHYSICIAN NO [facility] Encounters Encounter Date Encounter Type Care Provider Facility Start: 11-25-2025 ambulatory Aissatou Castillo Facility:[facility] Start: 06-23-2025 End: 06-23-2025 Clinisync Result Encounter Cain Mendoza DO Work Phone: [facility] Unsolicited Start: 06-23-2025 End: 06-23-2025 Clinisync Result Encounter Cain Mendoza DO Work Phone: [facility] External Department Unsolicited Start: 06-22-2025 End: 06-22-2025 [facility] Start: 06-22-2025 End: 06-22-2025 Departed Referred Cain Mendoza -[facility] Start: 06-21-2025 End: 06-21-2025 Clinisync Result Encounter Cain Mendoza DO Work Phone: [facility] External Department Unsolicited Start: 06-21-2025 End: 06-21-2025 Clinisync Result Encounter Cain Mendoza DO Work Phone: [facility] External Department Unsolicited Start: 06-16-2025 End: 06-16-2025 ambulatory CHRISTY SCHWARTZ Not Available Start: 06-14-2025 End: 06-14-2025 Clinisync Result Encounter George Scherer NP Work Phone: [facility] External [facility] Unsolicited Start: 06-14-2025 End: 06-14-2025 Clinisync Result Encounter George Scherer NP Work Phone: [facility] External [facility] Unsolicited Start: 06-13-2025 End: 06-13-2025 Bamboo flowsheet Christy MCKOY Work Phone: [facility] Start: 06-13-2025 End: 06-13-2025 Bamboo flowsheet Christy MCKOY Work Phone: [facility]BP[facility] Start: 06-13-2025 End: 06-13-2025 Telephone encounter Sonya Lomax RN [facility] Start: 06-13-2025 End: 06-13-2025 ambulatory CHRISTY [...] Thompson RN Work Phone: [facility] Start: 06-08-2025 End: 06-08-2025 Clinisync Result Encounter George Scherer NP Work Phone: [facility] External Department Unsolicited Start: 06-08-2025 End: 06-08-2025 Clinisync Result Encounter George Scherer NP Work Phone: [facility] External Department Unsolicited Start: 06-07-2025 End: 06-07-2025 Orders Only Eva Mccann COMMISSIONED SALES ASSOCIATE-CN Work Phone: [facility] Comment on above: Insulin controlled g estational diabetes mellitus (GDM) in second trimester; Prediabetes in mother during Start: 06-06-2025 End: 06-06-2025 Bamboo flowsheet Christy MCKOY Work Phone: [facility] Start: 06-06-2025 End: 06-06-2025 Bamboo flowsheet Christy MCKOY Work Phone: [facility] Start: 06-06-2025 End: 06-06-2025 flow sheet Christy MCKOY Work Phone: [facility] Comment on above: Third trimester preg selene ([facility]); 37 weeks gestation of ([facility]) Start: 06-06-2025 End: 06-06-2025 ambulatory CHRISTY SCHWARTZ Not Available Start: 05-30-2025 End: 05-30-2025 Bamboo flowsheet Cain Mendoza DO Work Phone: [facility] Start: 05-30-2025 End: 05-30-2025 Bamboo flowsheet Cain Mendoza DO Work Phone: [facility] Start: 05-30-2025 End: 06-07-2025 Telephone encounter Sonya Lomax RN [facility] Start: 05-30-2025 End: 05-30-2025 flow sheet Cain Mendoza DO Work Phone: [facility] Comment on above: Right otitis media, unspecified otitis media type (Primary Dx); Third trimester ([facility]); 36 weeks gestation of ([facility]) Start: 05-30-2025 End: 05-30-2025 ambulatory CAIN MENDOZA Not Available Start: 05-27-2025 End: 05-27-2025 ambulatory Aissatou Castillo Facility:[facility] Start: 05-27-2025 End: 05-27-2025 Patient encounter procedure Aissatou BinghamJaved Martinjalen [facility] Start: 05-26-2025 End: 05-26-2025 Bamboo flowsheet Christy MCKOY Work Phone: [facility] Start: 05-26-2025 End: 05-26-2025 Bamboo flowsheet Christy MCKOY Work Phone: [facility] Start: 05-26-2025 End: 05-26-2025 flow sheet Christy MCKOY Work Phone: [facility] Comment on above: Third trimester preg selene ([facility]); 36 weeks gestation of ([facility]) Start: 05-26-2025 End: 05-26-2025 ambulatory CHRISTY SHCWARTZ Not Available Start: 05-24-2025 End: 05-24-2025 Clinisync Result Encounter George Scherer NP Work Phone: [facility] Unsolicited Start: 05-24-2025 End: 05-24-2025 Clinisync Result Encounter George Scherer NP Work Phone: [facility] Unsolicited Start: 05-23-2025 End: 05-23-2025 Office outpatient visit 25 minutes Devika Luu PA-C Work Phone: [facility] Comment on above: Insulin controlled g estational diabetes mellitus (GDM) in third trimester (Primary Dx) Start: 05-23-2025 End: 05-23-2025 ambulatory DEVIKA LUU [facility] Start: 05-19-2025 ambulatory MESSI MCKNIGHT Facility:[facility] Start: 05-17-2025 End: 05-17-2025 Clinisync Result Encounter George Scherer NP Work Phone: [facility] External [facility] Unsolicited Start: 05-17-2025 End: 05-17-2025 Clinisync Result Encounter George Scherer NP Work Phone: [facility] External [facility] Unsolicited Start: 05-17-2025 End: 05-17-2025 Telephone encounter Sonya Lomax RN [facility] Start: 05-16-2025 End: 05-16-2025 Bamboo flowsheet Cain Mendoza DO Work Phone: [facility] Start: 05-16-2025 End: 05-16-2025 Bamboo flowsheet Cain Mendoza DO Work Phone: [facility] Start: 05-16-2025 End: 05-16-2025 ambulatory CAIN MENDOZA Not Available Start: 05-16-2025 End: 05-16-2025 flow sheet Cain Mendoza DO Work Phone: [facility] Comment on above: 34 weeks gestation o f ([facility]); Third trimester ([facility]); Conceived by in vitro fertilization; Factor 5 Leiden mutation, heterozygous ([facility]); Insulin controlled gestational diabetes mellitus (GDM) during , antepartum ([facility]); Non-recurrent acute serous otitis media of left ear Start: 05-11-2025 End: 05-11-2025 Telephone encounter Belen BRYANT [facility]- [facility] at [facility] Start: 05-10-2025 End: 05-10-2025 Clinisync Result [...] Start: 05-03-2025 End: 05-03-2025 Telephone encounter Shoshana Ab BRYANT Work Phone: [facility]aternal- Medicine at [facility] Start: 05-03-2025 End: 05-03-2025 flow sheet Christy MCKOY Work Phone: [facility] Comment on above: size inconsist ent with dates ([facility]) (Primary Dx); Third trimester ([facility]); 32 weeks gestation of ([facility]); Conceived by in vitro fertilization; Factor 5 Leiden mutation, heterozygous ([facility]); Insulin controlled gestational diabetes mellitus (GDM) during , antepartum ([facility]) Start: 05-03-2025 End: 05-03-2025 ambulatory CHRISTY SCHWARTZ Not Available Start: 04-27-2025 ambulatory Aissatou Castillo Facility:[facility] Start: 04-27-2025 End: 04-27-2025 Clinisync Result Encounter George Scherer NP Work Phone: [facility] External Department Unsolicited Start: 04-27-2025 End: 04-27-2025 Clinisync Result Encounter George Scherer NP Work Phone: [facility] External Department Unsolicited Start: 04-25-2025 End: 04-25-2025 Telephone encounter Giselle Cheng CMA [facility] at [facility] Start: 04-25-2025 End: 04-25-2025 ambulatory [facility] Start: 04-25-2025 End: 04-25-2025 Office outpatient visit 25 minutes Devika Luu PA-C Work Phone: [facility]- Medicine at [facility] Comment on above: Insulin controlled g estational diabetes mellitus (GDM) in third trimester (Primary Dx) Start: 04-20-2025 End: 04-20-2025 Telephone encounter Aissatou Stoner RN [facility] at [facility] Start: 04-19-2025 End: 04-19-2025 Clinisync Result [...] Comment on above: Third trimester preg selene ([facility]); 30 weeks gestation of ([facility]) Start: 04-17-2025 End: 04-18-2025 Clinisync Result Encounter Cain Mendoza DO Work Phone: [facility] External Department Unsolicited Start: 04-17-2025 End: 04-18-2025 Clinisync Result Encounter Cain Mendoza DO Work Phone: [facility] External Department Unsolicited Start: 04-14-2025 End: 04-14-2025 ambulatory CAIN R MENDOZA [facility] Start: 04-12-2025 End: 04-12-2025 Telephone encounter Sonya Lomax RN [facility] at [facility] Start: 04-11-2025 End: 04-11-2025 ambulatory Devika Luu PA-C Work Phone: [facility] at [facility] Comment on above: Insulin controlled g [...] Luu PA-C Work Phone: [facility] at [facility] Start: 04-05-2025 End: 04-05-2025 Clinisync Result [...] Apollo LAWRENCE Work Phone: [facility]- [facility] at [facility] Comment on above: Insulin controlled g estational diabetes mellitus (GDM) in second trimester (Primary Dx); Recurrent major depressive disorder, in partial remission; Prediabetes in mother during Start: 03-30-2025 End: 03-30-2025 ambulatory APOLLO MARTINEZ [facility] Start: 03-30-2025 End: 03-30-2025 flow sheet [...] encounter Sonya Lomax RN [facility] Start: 03-16-2025 End: 03-16-2025 Telephone encounter Sonya Lomax RN [facility] Start: 03-16-2025 End: 03-16-2025 ambulatory [facility] Start: 03-11-2025 End: 03-11-2025 Telephone encounter Naomy Thompson RN Work Phone: [facility] at [facility] Start: 03-07-2025 End: 03-07-2025 Orders Only Cole Wade MD Work Phone: [facility] at [facility] Comment on above: Insulin controlled g estational diabetes mellitus (GDM) in second trimester; Prediabetes in mother during Start: 03-03-2025 End: 03-03-2025 Bamboo flowsheet Cain Mendoza DO Work Phone: [facility] Start: 03-03-2025 End: 03-03-2025 Bamboo flowsheet Cain Mendoza DO Work Phone: [facility] Start: 03-03-2025 End: 03-03-2025 flow sheet Cain Mendoza DO Work Phone: [facility] Comment on above: 23 weeks gestation o f ; Second trimester ; induced hypertension, antepartum; Insulin controlled gestational diabetes mellitus (GDM) during , antepartum Start: 03-03-2025 End: 03-03-2025 ambulatory CAIN DONALDSON Not Available Start: 03-01-2025 End: 03-01-2025 Telephone encounter Valerie Le RN [facility] at [facility] Start: 02-28-2025 End: 02-28-2025 Orders Only Devika Luu PA-C Work Phone: [facility] at [facility] Comment on above: Insulin controlled g estational diabetes mellitus (GDM) in second trimester; Prediabetes in mother during Start: 02-24-2025 End: 02-24-2025 Office outpatient visit 25 minutes Apollo LAWRENCE Work Phone: [facility]- [facility] at [facility] Comment on above: Insulin controlled g estational diabetes mellitus (GDM) in second trimester (Primary Dx); Recurrent major depressive disorder, in partial remission; Bipolar 1 disorder ([facility]); Prediabetes in mother during Start: 02-24-2025 End: 02-24-2025 [facility] Start: 02-17-2025 End: 02-17-2025 Telephone encounter Christy Prado LPN [facility] Start: 02-15-2025 End: 02-15-2025 Telephone encounter Valerie Le RN [facility] Start: 02-08-2025 End: 02-08-2025 Office consultation new/estab patient 60 min Jaida Chadwick MD Work Phone: [facility] at [facility] Comment on above: Insulin controlled g estational diabetes mellitus (GDM) in second trimester (Primary Dx); Prediabetes in mother during ; 20 weeks gestation of ; Choroid plexus cyst of fetus affecting care of mother, antepartum, single or unspecified fetus; Heterozygous factor V Leiden affecting in second trimester, antepartum; Severe obesity due to excess calories affecting , antepartum ([facility]); Bipolar disorder, in full remission, most recent episode depressed Start: 02-08-2025 End: 02-08-2025 Orders Only Christy Prado LPN [facility] Comment on above: Insulin controlled g estational diabetes mellitus (GDM) in second trimester (Primary Dx); Choroid plexus cyst of fetus affecting care of mother, antepartum, single or unspecified fetus; Heterozygous factor V Leiden affecting in second trimester, antepartum; Severe obesity due to excess calories affecting , antepartum ([facility]) Start: 02-03-2025 End: 02-03-2025 Telephone encounter Christy Prado LPN [facility] Start: 01-27-2025 End: 01-27-2025 Orders Only Apollo Martinez APRNweeSPIN Work Phone: [facility] at [facility] Start: 01-26-2025 End: 01-26-2025 Office outpatient new 45 minutes Apollo Martinez APRNweeSPIN Work Phone: [facility] at [facility] Comment on above: Insulin controlled g estational diabetes mellitus (GDM) in second trimester (Primary Dx) Start: 01-26-2025 End: 01-27-2025 Refill Apollo Martinez APRNweeSPIN Work Phone: [facility] at [facility] Start: 01-26-2025 End: 01-26-[address] Work Phone: [facility] at [facility] Comment on above: Insulin controlled g estational diabetes mellitus (GDM) in second trimester Start: 01-20-2025 End: 01-20-2025 Bamboo flowsheet Christy MCKOY Work Phone: [facility] Start: 01-20-2025 End: 01-20-2025 Bamboo flowsheet Christy MCKOY Work Phone: [facility] Start: 01-20-2025 End: 01-20-2025 Patient encounter procedure Christy MCKOY Work Phone: [facility] Work Phone: Start: 01-20-2025 End: 01-20-2025 flow sheet Christy MCKOY Work Phone: [facility] Comment on above: Well woman exam with routine gynecological exam; 17 weeks gestation of ; Second trimester ; Exposure to STD; Vaginal discharge Start: 01-20-2025 End: 01-20-2025 ambulatory CHRISTY SCHWARTZ Not Available Start: 01-13-2025 End: 01-13-2025 Chart abstracting Scanning Provider External [facility] Start: 12-30-2024 End: 12-30-2024 Chart abstracting Jaida Chadwick MD Work Phone: [facility] Start: 12-29-2024 End: 12-29-2024 Telephone encounter Claudine Hawthorne [facility] at [facility] Start: 12-23-2024 End: 12-23-[address] [facility] Start: 12-23-2024 End: 12-23-2024 Subsequent hospital visit by physician [facility] Start: 12-23-2024 End: 12-23-2024 Bamboo flowsheet Cain Chewzio DO Work Phone: [facility] Start: 12-23-2024 End: 12-24-2024 Bamboo flowsheet Cain Mendoza DO Work Phone: [facility] Start: 12-23-2024 End: 12-24-2024 Clinisync Result Encounter Cain Mendoza DO Work Phone: [facility] External Department Unsolicited Start: 12-23-2024 End: 12-23-2024 flow sheet Cain Mendoza DO Work Phone: [facility] Comment on above: Second trimester [...] End: 10-20-2024 Subsequent hospital visit by physician [facility] Start: 10-18-2024 End: 10-18-2024 ambulatory [facility] Start: 10-18-2024 End: 10-18-2024 Subsequent hospital visit by physician [facility] Start: 04-06-2024 End: 04-06-2024 ambulatory PHYSICIAN TWIN [facility] Work Phone: Start: 04-06-2024 End: 04-06-2024 Patient encounter procedure PHYSICIAN TWIN [facility] [place] Work Phone: Start: 04-15-2022 End: 04-15-2022 Subsequent hospital visit by physician MARIA [facility] Start: 02-08-2022 End: 02-08-2022 Subsequent hospital visit by physician [facility] Start: 01-14-2022 End: 01-14-2022 Subsequent hospital visit by physician [facility] Start: 01-07-2022 End: 01-07-2022 Subsequent hospital visit by physician [facility]IA [facility] Start: 12-10-2021 End: 12-10-2021 Subsequent hospital visit by physician [facility] Start: 09-26-2021 End: 09-26-2021 Subsequent hospital visit by physician [facility] Start: 09-17-2021 End: 09-17-2021 Subsequent hospital visit by physician [facility] Start: 06-25-2021 End: 06-25-2021 Subsequent hospital visit by physician [facility] Start: 02-15-2021 End: 02-15-2021 Subsequent hospital visit by physician Maria D Covid19 Pat Screening Schedule [facility] Comment on above: Arrived Start: 01-11-2021 End: 01-11-2021 Subsequent hospital visit by physician [facility] Procedures Date Procedure Procedure Detail Performing Clinician Start: 06-23-2025 ALL CBC WITH AUTO DIFF Cain Mendoza DO Work Phone: Start: 06-21-2025 [facility] CBC WITH PLATEL ET NO DIFFERENTIAL Cain Mendoza DO Work Phone: Start: 06-14-2025 US OB BPP W NON-STRESS George Gilmer DEVELOPMENT PROFESSIONAL Work Phone: Start: 06-13-2025 Urnls dip stick/tabl et rgnt non-auto w/o micrscp Christy MCKOY Work Phone: Start: 06-08-2025 US OB BPP W NON-STRESS George Gilmer DEVELOPMENT PROFESSIONAL Work Phone: Start: 05-30-2025 Urnls dip stick/tabl et rgnt non-auto w/o micrscp Cain Mendoza DO Work Phone: Start: 05-26-2025 Urnls dip stick/tabl et rgnt non-auto w/o micrscp Christy MCKOY Work Phone: Start: 05-24-2025 US OB BPP W NON-STRESS George Gilmer DEVELOPMENT PROFESSIONAL Work Phone: Start: 05-17-2025 US OB BPP W NON-STRESS George Gilmer DEVELOPMENT PROFESSIONAL Work Phone: Start: 05-16-2025 Urnls dip stick/tabl et rgnt non-auto w/o micrscp Cain Mendoza DO Work Phone: Start: 05-10-2025 US OB BPP W NON-STRESS George Gilmer DEVELOPMENT PROFESSIONAL Work Phone: Start: 05-04-2025 US OB BPP W NON-STRESS George Gilmer DEVELOPMENT PROFESSIONAL Work Phone: Start: 05-03-2025 Urnls dip stick/tabl et rgnt non-auto w/o micrscp Christy MCKOY Work Phone: Start: 04-27-2025 US OB BPP W NON-STRESS George Scherer DEVELOPMENT PROFESSIONAL Work Phone: Start: 04-19-2025 US OB BPP W NON-STRESS Cain Mendoza DO Work Phone: Start: 04-19-2025 US RENAL BI Cain Fazi o DO Work Phone: Start: 04-18-2025 [facility] UA (CLEAN/CATCH) DRAINAGE DESIGN COORDINATOR/MICRO IF IND. Cain Mendoza DO Work Phone: [...] Td Vaccines (2 - Td or Tdap) [facility] Start: 01-21-2028 Screening for malign ant neoplasm of cervix [facility] Start: 02-08-2026 Adult BMI Screening Adult BMI Screen ing [facility] Start: 02-08-2026 Tobacco Screening Tobacco Screening [facility] Start: 01-26-2026 Adult BMI Screening Adult BMI Screen ing [facility] Start: 01-26-2026 Tobacco Screening Tobacco Screening [facility] Start: 07-04-2025 Influenza vaccination [facility] Start: 06-16-2025 End: 06-16-2025 Professional / ancillary services management 06/16/2025 8:00 AM EDT Ancillary Procedure [facility] [address] [place] [address] [place] [address] [facility] Start: 06-13-2025 End: 10-13-2025 US for US OB follow up transabdominal approach Imaging Routine Excessive growth affecting management of in third trimester, single or unspecified fetus ([facility]) Expected: 06/13/2025, Expires: 10/13/2025 [facility] Work Phone: Comment on above: Expected: 06/13/2025 , Expires: 10/13/2025 Start: 06-13-2025 End: 06-13-2025 Patient encounter procedure [facility] Start: 06-06-2025 End: 06-06-2025 Patient encounter procedure [facility] Comment on above: Arrived Start: 06-03-2025 Influenza vaccination Flu vacc ine (Season Ended) [facility] Start: 05-30-2025 End: 05-30-2025 Patient encounter procedure [facility] Comment on above: Arrived Start: 05-26-2025 End: 05-26-2026 CULTURE, GROUP B STREP WITH SUSCEPTIBLITY CULTURE, GROUP B STREP WITH SUSCEPTIBLITY Lab Routine Third trimester ([facility]) Expected: 05/26/2025, Expires: 05/26/2026 [facility] Work Phone: Comment on above: Expected: 05/26/2025 , Expires: 05/26/2026 Start: 05-26-2025 End: 05-26-2025 Patient encounter procedure [facility] Comment on above: Arrived Start: 05-23-2025 End: 05-23-2025 Telemedicine consultation with patient 05/23/2025 1:30 PM EDT Telemedicine [facility] at [facility] [address] [place] [phone] Devika Luu PA-C [address] [address] [facility] Start: 05-16-2025 End: 05-16-2025 Patient encounter procedure 05/16/2025 8:30 AM EDT Routine [facility] [address] [place] [phone] Cain Donaldson, DO [address] [place] [address] [facility] Start: 05-12-2025 End: 05-12-2025 Patient encounter procedure 05/12/2025 8:00 AM EDT Appointment [facility] [place] [address] [facility] [address] [place] [phone] [facility] [place] Start: 05-10-2025 End: 05-10-2025 Professional / ancillary services management 05/10/2025 8:00 AM EDT Ancillary Procedure [facility] [address] [place] [address] [facility] Start: 05-03-2025 End: 09-03-2025 US for US OB follow up transabdominal approach Imaging Routine size inconsistent with dates ([facility]) Expected: 05/03/2025, Expires: 09/03/2025 [facility] Work Phone: Comment on above: Expected: 05/03/2025 , Expires: 09/03/2025 Start: 05-03-2025 End: 05-03-2025 Patient encounter procedure [facility] Comment on above: Arrived Start: 04-25-2025 End: 04-25-2025 Telemedicine consultation with patient 04/25/2025 11:30 AM EDT Telemedicine [facility] at [facility] [address] [place] [phone] Devika Luu PA-C [address] [place] [address] [facility] Start: 04-18-2025 End: 04-18-2025 Patient encounter procedure 04/18/2025 10:10 AM EDT Routine [facility] [address] [place] [address] Cain Donaldson, [address] [place] [address] [facility] Start: 04-14-2025 End: 04-14-2025 Patient encounter procedure 04/14/2025 8:00 AM EDT Appointment [facility] [place] [address] [place] [address] [facility] [place] Start: 03-30-2025 End: 09-30-2025 US biophysical profile w non stress test US biophysical profile w non stress test Imaging Routine Gestational diabetes mellitus (GDM), antepartum, gestational diabetes method of control unspecified Factor 5 Leiden mutation, heterozygous (CMS/HCC) Conceived by in vitro fertilization Expected: 03/30/2025 (Approximate), Expires: 09/30/2025 [facility] Healthcare Comment on above: Expected: 03/30/2025 (Approximate), Expires: 09/30/2025 Start: 03-30-2025 End: 07-31-2025 US for US OB follow up transabdominal approach Imaging Routine Gestational diabetes mellitus (GDM), antepartum, gestational diabetes method of control unspecified Factor 5 Leiden mutation, heterozygous (CMS/HCC) Conceived by in vitro fertilization Expected: 03/30/2025, Expires: 07/31/2025 [facility] Healthcare Work Phone: Comment on above: Expected: 03/30/2025 , Expires: 07/31/2025 Start: 03-30-2025 End: 03-30-2025 Telemedicine consultation with patient 03/30/2025 1:30 PM EDT Telemedicine [facility]- [facility] at [facility] [address] [place] [phone] Apollo Martinez, UMM-SKEIN WINDER [address] [place] [address] [facility] Start: 03-30-2025 End: 03-30-2025 Patient encounter procedure [facility] Comment on above: Arrived Start: 03-16-2025 End: 03-16-2025 Patient encounter procedure 03/16/2025 8:00 AM EDT Appointment [facility] [address] [place] [phone] [facility] Start: 03-03-2025 End: 03-03-2026 Alanine aminotransferase [Enzymatic activity/volume] in Serum or Plasma ALT Lab Routine 23 weeks gestation of induced hypertension, antepartum Expected: 03/03/2025 (Approximate), Expires: 03/03/2026 [facility] Comment on above: Expected: 03/03/2025 (Approximate), Expires: 03/03/2026 Start: 03-03-2025 End: 03-03-2026 Aspartate aminotransferase [Enzymatic activity/volume] in Serum or Plasma AST Lab Routine 23 weeks gestation of induced hypertension, antepartum Expected: 03/03/2025 (Approximate), Expires: 03/03/2026 [facility] Comment on above: Expected: 03/03/2025 (Approximate), Expires: 03/03/2026 Start: 03-03-2025 End: 03-03-2026 CBC W Auto Differential panel - Blood CBC and differential Lab Routine 23 weeks gestation of induced hypertension, antepartum Expected: 03/03/2025 (Approximate), Expires: 03/03/2026 [facility] Comment on above: Expected: 03/03/2025 (Approximate), Expires: 03/03/2026 Start: 03-03-2025 End: 03-03-2026 Creatinine [Mass/volume] in Serum or Plasma Creatinine Lab Routine 23 weeks gestation of induced hypertension, antepartum Expected: 03/03/2025 (Approximate), Expires: 03/03/2026 [facility] Work Phone: Comment on above: Expected: 03/03/2025 (Approximate), Expires: 03/03/2026 Start: 03-03-2025 End: 03-03-2026 Lactate dehydrogenase [Enzymatic activity/volume] in Serum or Plasma by Lactate to pyruvate reaction Lactate dehydrogenase Lab Routine 23 weeks gestation of induced hypertension, antepartum Expected: 03/03/2025, Expires: 03/03/2026 [facility] Healthcare Comment on above: Expected: 03/03/2025 , [...] induced hypertension, antepartum Expected: 03/03/2025, Expires: 03/03/2026 [facility] Healthcare Comment on above: Expected: 03/03/2025 , Expires: 03/03/2026 Start: 03-03-2025 End: 03-03-2026 Urate [Mass/volume] in Serum or Plasma Uric acid Lab Routine 23 weeks gestation of induced hypertension, antepartum Expected: 03/03/2025 (Approximate), Expires: 03/03/2026 [facility] Healthcare Comment on above: Expected: 03/03/2025 (Approximate), Expires: 03/03/2026 Start: 03-03-2025 End: 03-03-2026 Urea nitrogen [Mass/volume] in Serum or Plasma BUN Lab Routine 23 weeks gestation of induced hypertension, antepartum Expected: 03/03/2025, Expires: 03/03/2026 [facility] Healthcare Comment on above: Expected: 03/03/2025 , Expires: 03/03/2026 Start: 03-03-2025 End: 03-03-2025 Patient encounter procedure 03/03/2025 8:40 AM EDT Routine [facility] [address] [place] [phone] Cain Donaldson DO [address] [place] [address] Arrived [facility] Comment on above: Arrived Start: 02-24-2025 End: 02-24-2025 Patient encounter procedure 02/24/2025 1:00 PM EDT Office Visit Maternal- Medicine at [facility] [address] [place] [address] Apollo Martinez, COMMISSIONED SALES ASSOCIATE-[employer]KEIN WINDER [address] [place] [address] [facility] at [facility] Start: 02-08-2025 End: 02-08-2026 US MFM with or without consult US MFM with or without consult Imaging Routine Insulin controlled gestational diabetes mellitus (GDM) in second trimester Choroid plexus cyst of fetus affecting care of mother, antepartum, single or unspecified fetus Heterozygous factor V Leiden affecting in second trimester, antepartum Severe obesity due to excess calories affecting , antepartum ([facility]) Expected: 02/08/2025, Expires: 02/08/2026 [facility] Work Phone: Comment on above: Expected: 02/08/2025 , Expires: 02/08/2026 Start: 02-08-2025 End: 02-08-2025 Patient encounter procedure [facility] Start: 01-26-2025 End: 01-26-2025 Patient encounter procedure 01/26/2025 3:30 PM EDT Office Visit Maternal- Medicine at [facility] [address] [place] [address] Apollo Martinez, COMMISSIONED SALES ASSOCIATE-[employer]KEIN WINDER [address] [place] [address] [facility] at [facility] Start: 01-26-2025 End: 01-26-2025 ambulatory 01/26/2025 1:30 PM EDT Support Visit [facility]- Medicine at [facility] [address] [place] [address] Kenzie Dotosn, RD [address] [place] [address] [facility]- [facility] at [facility] Start: 01-20-2025 End: 02-20-2025 Alpha fetoprotein, [...] Start: 07-04-2024 COVID-19 Vaccine () COVID-19 Vaccine ( season) [facility] Start: 07-04-2024 COVID-19 Vaccine ( season) COVID-19 Vaccine ( season) [facility] Start: 07-04-2024 Influenza vaccination Influenza Vacc ine [facility] Start: 06-03-2024 Influenza vaccination Flu vaccine (# 1) [facility] Start: 11-24-2023 Screening for malign ant neoplasm of cervix Pap Smear [facility] Start: 2023 Screening for malign ant neoplasm of cervix [facility] Start: 07-04-2022 Influenza vaccination Flu vacc ine (Season Ended) [facility] Start: 07-04-2021 Influenza vaccination [facility] Start: 07-04-2020 Influenza vaccination Flu vaccine (# 1) [facility] Work Phone: Start: 07-03-2015 DTaP,Tdap and Td Vac cines (2 - Tdap) DTaP,Tdap and Td Vaccines (2 - Tdap) [facility] Start: 2014 Screening for malign ant neoplasm of cervix [facility] Start: 2012 DTaP/Tdap/Td vaccine (1 - Tdap) DTaP/Tdap/Td vaccine (1 - Tdap) [facility] Start: 2012 Hepatitis B vaccine (1 of 3 - 19+ 3-dose series) Hepatitis B vaccine (1 of 3 - 19+ 3-dose series) [facility] Start: 2011 Adult BMI Follow Up Plan Adult BMI Follow Up Plan [facility] Start: 2011 Adult BMI Screening Adult BMI Screen ing [facility] Start: 2009 COVID-19 Vaccine (1) COVID-19 Vaccin e (1) [facility] Work Phone: Start: 2006 Varicella vaccine (1 of 2 - 13+ 2-dose series) Varicella vaccine (1 of 2 - 13+ 2-dose series) [facility] Start: 2005 COVID-19 Vaccine (1) COVID-19 Vaccin e (1) [facility] Start: 2005 Depression Screen Depression Screen [facility] Start: 2005 Depression Screening Depression Scre ening [facility] Start: 2005 Tobacco Screening Tobacco Screening [facility] Start: 1998 COVID-19 Vaccine (1) COVID-19 Vaccin e (1) [facility] Start: 1994 Varicella vaccine (1 of 2 - 2-dose childhood series) Varicella vaccine (1 of 2 - 2-dose childhood series) [facility] End: 02-08-2025 Alpha Fetoprotein, Maternal [facility] [employer] Work Phone: Comment on above: Once for 1 Occurrenc es starting 02/08/2025 until 02/08/2025 End: 01-11-2021 Anti Mullerian Hormone Anti Mullerian Hormone Lab Routine Once for 1 Occurrences starting 01/11/2021 until 01/11/2021 [facility] Phone: Comment on above: Once for 1 Occurrenc es starting 01/11/2021 until 01/11/2021 Anti Mullerian Hormone Anti Keeley erian Hormone Lab Routine 01/11/2021 1:58 PM [facility] Phone: Bacteria identified in Urine by Culture Urine culture Microbiology Routine Missed menses Ordered: 11/25/2024 [facility] [employer] Comment on above: Ordered: 11/25/2024 Bacteria identified in Urine by Culture Urine culture Microbiology Routine 34 weeks gestation of ([facility]) Conceived by in vitro fertilization Ordered: 05/16/2025 [employer] Work Phone: Comment on above: Ordered: 05/16/2025 End: 01-11-2021 C.trachomatis N.gonorrhoeae DNA, Urine C.trachomatis N.gonorrhoeae DNA, Urine Microbiology Routine Once for 1 Occurrences starting 01/11/2021 until 01/11/2021 [facility] Phone: Comment on above: Once for 1 Occurrenc es starting 01/11/2021 until 01/11/2021 C.trachomatis N.gonorrhoeae DNA, Urine C.trachomatis N.gonorrhoeae DNA, Urine Microbiology Routine 01/11/2021 2:29 PM [facility] Phone: CBC W Auto Different ial panel - Blood CBC and differential Lab Routine Missed menses , unspecified gestational age Ordered: 11/25/2024 [facility] Comment on above: Ordered: 11/25/2024 CHLAMYDIA TRACHOMATI S (GENITO/STI) CHLAMYDIA TRACHOMATIS (GENITO/STI) Lab Routine Exposure to STD Ordered: 01/20/2025 [facility] Comment on above: Ordered: 01/20/2025 End: 02-15-2021 COVID-19 COVID-19 Lab Routine Once for 1 Occurrences starting 02/15/2021 until 02/15/2021 [facility] Phone: Comment on above: Once for 1 Occurrenc es starting 02/15/2021 until 02/15/2021 COVID-19 COVID-19 Lab Rou linda 02/15/2021 3:10 PM EDT [facility] Phone: End: 12-23-2024 Culture, Urine Bon [facility] [employer] Comment on above: Once for 1 Occurrenc es starting 12/23/2024 until 12/23/2024 Cytology Cervical or vaginal smear or scraping study Pap Smear Pathology and Cytology Routine Well woman exam with routine gynecological exam Ordered: 01/20/2025 [facility] Comment on above: Ordered: 01/20/2025 End: 01-11-2021 Factor 5 Leiden Factor 5 Leiden Lab Routine Once for 1 Occurrences starting 01/11/2021 until 01/11/2021 [facility] Phone: Comment on above: Once for 1 Occurrenc es starting 01/11/2021 until 01/11/2021 Factor 5 Leiden Factor 5 Leiden Lab Routine 01/11/2021 1:58 PM [facility] Phone: End: 01-11-2021 HbA1c (Bld) [Mass fraction] Hemoglobin A1C Lab Routine Once for 1 Occurrences starting 01/11/2021 until 01/11/2021 [facility] Phone: Comment on above: Once for 1 Occurrenc es starting 01/11/2021 until 01/11/2021 HbA1c (Bld) [Mass fraction] Hemoglobin A1C Lab Routine 01/11/2021 1:58 PM [facility] Phone: Hemoglobin A1c/Hemoglobin.total in Blood Hemoglobin A1c Lab Routine Missed menses , unspecified gestational age Ordered: 11/25/2024 [facility] Comment on above: Ordered: 11/25/2024 End: 12-23-2024 Hemoglobin A1c/Hemoglobin.total in Blood [employer] Comment on above: Once for 1 Occurrenc es starting 12/23/2024 until 12/23/2024 End: 12-23-2024 Hepatitis B Surface Antigen [employer] Comment on above: Once for 1 Occurrenc es starting 12/23/2024 until 12/23/2024 Hepatitis B virus urbano rface Ag [Presence] in Serum or Plasma by Immunoassay Hepatitis B surface antigen Lab Routine Missed menses , unspecified gestational age Ordered: 11/25/2024 [facility] Comment on above: Ordered: 11/25/2024 End: 12-23-2024 Hepatitis C Antibody [place] Phone: Comment on above: Once for 1 Occurrenc es starting 12/23/2024 until 12/23/2024 Hepatitis C virus Ab [Presence] in Serum or Plasma by Immunoassay Hepatitis C antibody Lab Routine Missed menses , unspecified gestational age Ordered: 11/25/2024 [facility] Comment on above: Ordered: 11/25/2024 End: 12-23-2024 HIV Screen [employer] Comment on above: Once for 1 Occurrenc es starting 12/23/2024 until 12/23/2024 HIV-1/HIV-2 antigen/antibody combination immunoassay HIV-1 and HIV-2 antibodies Lab Routine Missed menses , unspecified gestational age Ordered: 11/25/2024 [facility] Comment on above: Ordered: 11/25/2024 Human papilloma viru s DNA [Presence] in Unspecified specimen by Probe with amplification HPV DNA probe, amplified Microbiology Routine Well woman exam with routine gynecological exam Ordered: 01/20/2025 [facility] Comment on above: Ordered: 01/20/2025 Neisseria gonorrhoea e DNA [Presence] in Unspecified specimen by JOSELYN with probe detection Neisseria gonorrhea DNA probe, direct Lab Routine Exposure to STD Ordered: 01/20/2025 [facility] Comment on above: Ordered: 01/20/2025 End: 01-11-2021 Prothrombin Gene Mutation Prothrombin Gene Mutation Lab Routine Once for 1 Occurrences starting 01/11/2021 until 01/11/2021 [facility] Phone: Comment on above: Once for 1 Occurrenc es starting 01/11/2021 until 01/11/2021 Prothrombin Gene Mutation Prothr ombin Gene Mutation Lab Routine 01/11/2021 1:58 PM [facility] Phone: Reagin Ab [Presence] in Serum by RPR RPR Lab Routine Missed menses , unspecified gestational age Ordered: 11/25/2024 [facility] Comment on above: Ordered: 11/25/2024 Rubella antibody, IgG Rubella an tibody, IgG Lab Routine Missed menses , unspecified gestational age Ordered: 11/25/2024 [facility] Comment on above: Ordered: 11/25/2024 End: 12-23-2024 Rubella antibody, IgG [employer] Comment on above: Once for 1 Occurrenc es starting 12/23/2024 until 12/23/2024 SURESWAB(R) ADVANCED VAGINITIS PLUS, TMA SURESWAB(R) ADVANCED VAGINITIS PLUS, TMA Pathology and Cytology Routine Vaginal discharge Ordered: 01/20/2025 [facility] Comment on above: Ordered: 01/20/2025 End: 01-11-2021 T. pallidum Ab T. pallidum Ab Lab Routine Once for 1 Occurrences starting 01/11/2021 until 01/11/2021 [facility] Phone: Comment on above: Once for 1 Occurrenc es starting 01/11/2021 until 01/11/2021 T. pallidum Ab T. pallidum Ab L ab Routine 01/11/2021 1:58 PM [facility] Phone: End: 12-23-2024 T. pallidum Ab [employer] Comment on above: Once for 1 Occurrenc [...] due to excess calories affecting , antepartum ([facility]) Bipolar disorder, in full remission, most recent episode depressed 1 Occurrences starting 02/08/2025 until 02/08/2026 [employer] Work Phone: Comment on above: 1 Occurrences starti ng 02/08/2025 until 02/08/2026 End: 01-11-2021 Varicella Zoster Antibody, IgG Varicella Zoster Antibody, IgG Lab Routine Once for 1 Occurrences starting 01/11/2021 until 01/11/2021 [employer] Work Phone: Comment on above: Once for 1 Occurrenc es starting 01/11/2021 until 01/11/2021 Varicella Zoster Ant ibody, IgG Varicella Zoster Antibody, IgG Lab Routine 01/11/2021 1:58 PM EST [employer] Work Phone: End: 01-11-2021 Vitamin D 25 Hydroxy Vitamin D 25 Hydroxy Lab Routine Once for 1 Occurrences starting 01/11/2021 until 01/11/2021 [employer] Work Phone: Comment on above: Once for 1 Occurrenc es starting 01/11/2021 until 01/11/2021 Vitamin D 25 Hydroxy [facility] Work Phone: End: 06-25-2021 Vitamin D 25 Hydroxy Vitamin D 25 Hydroxy Lab Routine Once for 1 Occurrences starting 06/25/2021 until 06/25/2021 [employer] Work Phone: Comment on above: Once for 1 Occurrenc es starting 06/25/2021 until 06/25/2021 Immunizations Immunization Date Immunization Notes Care Provider Fa [facility] 08-03-2024 influenza virus vaccine, unspecified formulation Christy Prado LPN [facility] [employer] [facility] 09-08-2023 influenza virus vaccine, unspecified formulation Jaida Chadwick MD Work Phone: [facility] Payers Date Payer Category Payer Self-pay 2024 [employer] Blue [facility] [id number] 2020 [facility] Managed Care - Other [id number] 2014 Unknown [id number] 1.2.840.853582.1.13.239. 2.7.3.015340.315 1993 Unknown [id number] 2.16.840.1.477163.3.579. 2.174 1993 Unknown [id number] 2.16.840.1.605762.3.579. 2.174 1993 Unknown [id number] 2.16840.1.207659.3.579. 2.174 1993 Unknown [id number] 2.16.840.1.338382.3.579. 2.174 1993 Unknown [id number] 2.16.840.1.486494.3.579. 2.1286 1993 Unknown [id number] 2.16.840.1.008542.3.579. 2.1286 1993 Unknown [id number] 2.16.840.1.380041.3.579. 2.128 1993 Unknown [id number] 2.16.840.1.420578.3.579. 2.1285 1993 Unknown [id number] 2.16.840.1.246092.3.579. 2.1285 1993 Unknown [id number] 2.16.840.1.447859.3.579. 2.1285 1993 Unknown [id number] 2.16.840.1.056433.3.579. 2.1285 1993 Unknown [id number] 2.16.840.1.917982.3.579. 2.1285 1993 Unknown [id number] 2.16840.1.477049.3.579. 2.1285 1993 Unknown [id number] 2.16840.1.859544.3.579. 2.1285 1993 Unknown [id number] 2.16840.1.516432.3.579. 2. 1993 Unknown [id number] 2.16840.1.438751.3.579. 2. 1993 Unknown [id number] 2.16840.1.172301.3.579. 2. 1993 Unknown [id number] 2.16840.1.868202.3.579. 2. 1993 Unknown [id number] 2.16.840.1.212399.3.579. 2.1258 1993 Unknown [id number] 2.16.840.1.882923.3.579. 2.1258 1993 Unknown [id number] 2.16.840.1.256430.3.579. 2.1258 1993 Unknown [id number] 2.16840.1.814701.3.579. 2.1258 1993 Unknown [id number] 2.16.840.1.223786.3.579. 2.1258 1993 Unknown [id number] 2.16.840.1.501387.3.579. 2.1258 1993 Unknown [id number] 2.16.840.1.749740.3.579. 2.1258 1993 Unknown [id number] 2.16.840.1.647313.3.579. 2.1258 1993 Unknown [id number] 2.16.840.1.460079.3.579. 2.1258 1993 Unknown [id number] 2.16.840.1.703997.3.579. 2.1258 1993 Unknown [id number] 2.16.840.1.015376.3.579. 2.1258 1993 Unknown [id number] 2.16.840.1.851465.3.579. 2.1258 1993 Unknown [id number] 2.16.840.1.729107.3.579. 2.1258 1993 Unknown [id number] 2.16.840.1.451828.3.579. 2.1258 1993 Unknown [id number] 2.16.840.1.000759.3.579. 2.1259 Private Health Insurance [id number] Unknown [employer] [id number] Unknown [id number] 2.16.840.1.045453.3.579. 2.531 Social History Date Type Detail Facility Tobacco smoking stat [facility] Unknown if ever smoked [facility] Phone: Start: 1993 Sex Assigned At Not on file [facility] [employer] Phone: Tobacco smoking stat [facility] Tobacco smoking consumption unknown [facility] Start: 1993 Sex Assigned At Female F [facility] Start: 02-20-2013 End: 11-15-2020 History of Social function [facility] Start: 02-20-2013 End: 11-15-2020 Tobacco use panel [facility] Start: 10-01-2024 [facility] Start: 11-24-2024 Gender identity Identifies as female gender (finding) [facility] Start: 06-06-2015 End: 12-29-2024 Sex Female (finding) [facility] Start: 11-24-2020 End: 02-08-2025 Tobacco smoking status NHIS Ex-smoker [facility] Start: 11-03-2020 End: 11-03-2010 History of tobacco use Current smoker [facility] Start: 11-03-2020 End: 11-03-2010 History of tobacco use Cigarette Smoker [facility] Start: 11-24-2020 End: 02-08-2025 Tobacco use and exposure Smokeless tobacco non-user [facility] Start: 12-30-2024 End: 02-08-2025 Alcoholic beverage intake Ex-drinker (finding) [facility] Childcare Unknown [facility] Sexual Orientation [facility] Medical Equipment Procedure Code Equipment Code Equipment Origin al Text Equipment Identifier Dates [id number] Start: 12-23-2024 End: 01-22-2025 1 each by In Vit ro route Daily Use to check FSBS four times daily [id number] Start: 12-23-2024 End: 01-22-2025 Use 2 syringes i n the morning for insulin dosage and 2 syringes in the Evening for insulin dosage. Total of 4 syringes daily needed. [id number] Start: 01-07-2025 Goals Date Patient Goal Desired [...] morning was 85. documented in this encounter [facility] 06-13-2025 Telephone encounter Note Called pt and dicussed her blood sugars and she has all been in target since 2 days after her last adjustment on the . She will be induced on Friday the . Fasting this morning was 85. [facility] 06-13-2025 History of Present illness Narrative [...] insulin syringe 29G X 1/2 0.5 mL [facility] Use 2 syringes in the morning for insulin dosage and 2 syringes in the Evening for insulin dosage. Total of 4 syringes daily needed. Lantus SoloStar 29 Units, Subcutaneous, Nightly ALLERGIES No Known Allergies PROBLEMS Active Ambulatory Problems Diagnosis Date Noted No Active Ambulatory Problems Resolved Ambulatory Problems Diagnosis Date Noted No Resolved Ambulatory Problems Past Medical History: Diagnosis Date SAB (spontaneous ) ([facility]) 10/2021 HISTORY PAST MEDICAL HISTORY SOCIAL HISTORY Past Medical History: Diagnosis Date SAB (spontaneous ) ([facility]) 10/2021 Social History Tobacco Use Smoking [...] in third trimester, single or unspecified fetus ([facility]) O36.63X0 US OB follow up transabdominal approach 2. 38 weeks gestation of ([facility]) Z3A.38 POCT urinalysis dipstick manually resulted 3. Third trimester ([facility]) Z34.93 POCT urinalysis dipstick manually resulted 4. Conceived by in vitro fertilization Z78.9 POCT urinalysis dipstick manually resulted 5. Factor 5 Leiden mutation, heterozygous ([facility]) D68.51 POCT urinalysis dipstick manually resulted 6. Insulin controlled gestational diabetes mellitus (GDM) during , antepartum ([facility]) O24.414 POCT urinalysis dipstick manually resulted [...] of: LEELEE Keita documented in this encounter [facility] 06-10-2025 Miscellaneous Notes Summary: [facility] Blood Glucose Log & Insulin Dose Change Called. No answer. Message left inquiring whether received message earlier this week regarding Eva Mccann CNM reviewed blood glucose log and increased Lantus evening dose to 29 Units daily. Requested return call or message to confirm received this insulin dose change. Ecalt message also sent. documented in this encounter [facility] 06-10-2025 Telephone encounter Note Summary: [facility] Blood Glucose Log & Insulin Dose Change Called. No answer. Message left inquiring whether received message earlier this week regarding Eva Mccann CNM reviewed blood glucose log and increased Lantus evening dose to 29 Units daily. Requested return call or message to confirm received this insulin dose change. Ecalt message also sent. [facility] 06-07-2025 Miscellaneous Notes Called pt to [...] for this week. documented in this encounter [facility] 06-07-2025 Telephone encounter Note Called pt to discuss her insulin change for this week and received voicemail. Left her a message that Eva Ramy reviewed her blood sugars and would like her to increase her lantus in the evening to 29 units. Asked her to please call back to verify that she got this new insulin change for this week. [facility] 06-06-2025 History of Present illness Narrative Reason [...] Medical History: Diagnosis Date SAB (spontaneous ) ([facility]) 10/2021 HISTORY PAST MEDICAL HISTORY SOCIAL HISTORY Past Medical History: Diagnosis Date SAB (spontaneous ) ([facility]) 10/2021 Social History Tobacco Use Smoking [...] ASSESSMENT & PLAN ICD-10-CM 1. Third trimester ([facility]) Z34.93 2. 37 weeks gestation of ([facility]) Z3A.37 Return OB: Patient presents today for [...] of: LEELEE Keita documented in this encounter [facility] 05-30-2025 Miscellaneous Notes Called pt due to 3 elevations. Received voicemail. Left her a message that her numbers looked good. She had 3 elevations no pattern noted and one night she forgot her insulin. No change for this week and she will send in new blood sugars next week. [facility] 05-30-2025 Telephone encounter Note Called pt due to 3 elevations. Received voicemail. Left her a message that her numbers looked good. She had 3 elevations no pattern noted and one night she forgot her insulin. No change for this week and she will send in new blood sugars next week. [facility] 05-30-2025 History of Present illness Narrative Reason for Appointment: Patient ID: Fannie Conley is a 29 y.o. female who presents for Routine Visit Patient presents today for Return OB appointment. MEDICATIONS Current Outpatient Medications Medication Instructions Alcohol Swabs (Alcohol Prep Pad) 70 % pads 1 Pad, Topical, Daily, Use four times daily to check FSBS. Blood Glucose Monitoring Suppl (D-Tabber Glucometer) w/Device kit 1 kit, Does not [...] Medical History: Diagnosis Date SAB (spontaneous ) ([facility]) 10/2021 HISTORY PAST MEDICAL HISTORY SOCIAL HISTORY Past Medical History: Diagnosis Date SAB (spontaneous ) ([facility]) 10/2021 Social History Tobacco Use Smoking [...] nursing note reviewed. Exam conducted with a animal taxonomist present. Vitals: Estimated body mass index is 43.16 kg/m as calculated from the following: Height as of 04/18/25: 5' 2 . Weight as of this encounter: 236 lb. BP: 130/82 No LMP recorded. Patient is . ASSESSMENT & PLAN ICD-10-CM 1. Right otitis media, unspecified otitis media type H66.91 ofloxacin (Floxin) 0.3 % otic solution 2. Third trimester ([facility]) Z34.93 POCT urinalysis dipstick manually resulted CANCELED: CULTURE, GROUP B STREP WITH SUSCEPTIBLITY CANCELED: CULTURE, GROUP B STREP WITH SUSCEPTIBLITY 3. 36 weeks gestation of ([facility]) Z3A.36 Return OB: Patient presents today [...] doing well. Continues to transmit glucose to [facility] and no need for change in Insulin at this time. Documented by George Scherer NP on behalf of: Cain Donaldson DO documented in this encounter [facility] 05-27-2025 Hospital Discharge instructions Patient Education [...] include: ?8 oz (237 mL) of milk, wjddiin-aqjhzxfswiqg-avzqe milk, and calcium-fortifiedfruit juice. Calcium-fortified means that [...] ?Spinach (cooked), rhubarb, beets, sweet potatoes, and [place] chard. ?Peanuts. ?Potato chips, afghan fries, and baked potatoes with skin on. ?Nuts and nut products. ?Chocolate. If you regularly take a diuretic medicine, make sure to eat at least 1 or 2 servings of fruits or vegetables that are high in potassium each day. These include: ?Avocado. ?Banana. ?[place], prune, carrot, or tomato juice. ?Baked potato. [...] magnesium, fish oil, or vitamin B6. Take kogk-yit-noolodg and prescription medicines only as told by [...] Casseroles. Pizza. Lasagna. Frozen meals. Potato chips. Dutch fries. The items listed above may not [...] provider. Document Revised: 01/30/2023 Document Reviewed: 01/30/2023 [employer] Patient Education 2023 [employer]. Follow Up Care 05/16/2025 14:17:00 With:Jonathan GORE, ONEIDA Navarro, URO Address: When: Unknown [facility] 05-27-2025 Note Patient Education Nephrology Dietary Guidelines [...] ? 8 oz (237 mL) of milk, sldprzy-bewbsqafvlpg-owkki milk, and calcium-fortifiedfruit juice. Calcium-fortified means that [...] Spinach (cooked), rhubarb, beets, sweet potatoes, and [place] chard. ? Peanuts. ? Potato chips, afghan fries, and baked potatoes with skin on. ? Nuts and nut products. ? Chocolate. ??? If you regularly take a diuretic medicine, make sure to eat at least 1 or 2 servings of fruits or vegetables that are high in potassium each day. These include: ? Avocado. ? Banana. ? [place], prune, carrot, or tomato juice. ? Baked [...] fish oil, or vitamin B6. ??? Take djrm-mej-sgsbjwd and prescription medicines only as told by your health (more content not included)... [facility] 05-26-2025 History of Present illness Narrative Reason [...] Medical History: Diagnosis Date SAB (spontaneous ) ([facility]) 10/2021 HISTORY PAST MEDICAL HISTORY SOCIAL HISTORY Past Medical History: Diagnosis Date SAB (spontaneous ) ([facility]) 10/2021 Social History Tobacco Use Smoking [...] ASSESSMENT & PLAN ICD-10-CM 1. Third trimester ([facility]) Z34.93 CULTURE, GROUP B STREP WITH SUSCEPTIBLITY CULTURE, GROUP B STREP WITH SUSCEPTIBLITY POCT urinalysis dipstick manually resulted 2. 36 weeks gestation of ([facility]) Z3A.36 Return OB: Patient presents today [...] routine OB appointment. documented in this encounter [facility] 05-23-2025 History of Present illness Narrative Maternal- Medicine Consultation VIDEO Patient is present at home, provider present at [facility] HISTORY OF PRESENT ILLNESS: Fannie Conley [...] each meal., Disp: , Rfl: blood-glucose meter [facility], 4 (four) times a day. Use to [...] route., Disp: , Rfl: lancets (LANCETS,ULTRA THIN) [facility], Use to check blood sugar 4 times [...] hypoglycemia, and examples of treatment of hypoglycemia (1515 rule). Discussed her current diet and her [...] urine P/C ratio - Anatomy survey with M - views remain incomplete - growth ultrasounds [...] Delivery recommendations : - Recommend delivery at [id number] - Discuss delivery if estimated weight is [...] values to us weekly by e-mail to: [email or web address] or by fax to: [phone] Devika Luu PA-C Maternal- Medicine Office phone: [phone] Devika Luu PA-C 05/23/25 [id number] documented in this encounter [facility] 05-17-2025 Miscellaneous Notes Called pt to let her know that Devika Luu reviewed her blood sugars and did not want to make any changes for this week there was not pattern to change. She will stay on her 25 units of lantus in the evening for this week. Pt to send in new blood sugars next week. documented in this encounter [facility] 05-17-2025 Telephone encounter Note Called pt to let her know that Devika Luu reviewed her blood sugars and did not want to make any changes for this week there was not pattern to change. She will stay on her 25 units of lantus in the evening for this week. Pt to send in new blood sugars next week. [facility] 05-16-2025 History of Present illness Narrative Reason for Appointment: Patient ID: Fannie Conley is a 29 y.o. female who presents for Routine Visit Patient presents today for Return OB appointment. MEDICATIONS Current Outpatient Medications Medication Instructions Alcohol Swabs (Alcohol Prep Pad) 70 % pads 1 Pad, Topical, Daily, Use four times daily to check FSBS. Blood Glucose Monitoring Suppl (Favoe-Tabber Glucometer) w/Device kit 1 kit, Does not [...] Medical History: Diagnosis Date SAB (spontaneous ) ([facility]) 10/2021 HISTORY PAST MEDICAL HISTORY SOCIAL HISTORY Past Medical History: Diagnosis Date SAB (spontaneous ) ([facility]) 10/2021 Social History Tobacco Use Smoking [...] nursing note reviewed. Exam conducted with a animal taxonomist present. Vitals: Estimated body mass index is 43.71 kg/m as calculated from the following: Height as of 04/18/25: 5' 2 . Weight as of this encounter: 239 lb. BP: 120/70 No LMP recorded. Patient is . ASSESSMENT & PLAN ICD-10-CM 1. 34 weeks gestation of ([facility]) Z3A.34 POCT urinalysis dipstick manually resulted Urine culture 2. Third trimester ([facility]) Z34.93 POCT urinalysis dipstick manually resulted 3. Conceived by in vitro fertilization Z78.9 Urine culture 4. Factor 5 Leiden mutation, heterozygous ([facility]) D68.51 5. Insulin controlled gestational diabetes mellitus (GDM) during , antepartum ([facility]) O24.414 Patient presents today for a [...] Cain Donaldson DO documented in this encounter [facility] 05-11-2025 Miscellaneous Notes Left a voicemail regarding her blood sugar log from 05/02/25 to 05/08/25. Dr. Askew reviewed it, and there are no medication changes this week. Continue 25 units of lantus in the evening. Patient to continue sending weekly BG logs. Will send MyChart as well. documented in this encounter [facility] 05-11-2025 Telephone encounter Note Left a voicemail regarding her blood sugar log from 05/02/25 to 05/08/25. Dr. Askew reviewed it, and there are no medication changes this week. Continue 25 units of lantus in the evening. Patient to continue sending weekly BG logs. [facility] well[facility] Miscellaneous Notes Called regarding blood sugar logs from 04/25/2025-05/01/2025, she had one elevated fasting blood sugar and two elevated blood sugars after lunch. Fannie could account for why her blood sugars were elevated after her meals. Provided encouragement. Continue to monitor carbohydrates and blood sugars. [facility]-03-2025 Telephone encounter Note Called regarding blood sugar logs from 04/25/2025-05/01/2025, she had one elevated fasting blood sugar and two elevated blood sugars after lunch. Ashlynd could account for why her blood sugars were elevated after her meals. Provided encouragement. Continue to monitor carbohydrates and blood sugars. [facility] History of Present illness Narrative [...] Medical History: Diagnosis Date SAB (spontaneous ) ([facility]) 10/2021 HISTORY PAST MEDICAL HISTORY SOCIAL HISTORY Past Medical History: Diagnosis Date SAB (spontaneous ) ([facility]) 10/2021 Social History Tobacco Use Smoking [...] PLAN ICD-10-CM 1. size inconsistent with dates ([facility]) O26.849 US OB follow up transabdominal approach 2. Third trimester ([facility]) Z34.93 POCT urinalysis dipstick manually resulted 3. 32 weeks gestation of ([facility]) Z3A.32 4. Conceived by in vitro fertilization Z78.9 5. Factor 5 Leiden mutation, heterozygous ([facility]) D68.51 6. Insulin controlled gestational diabetes mellitus (GDM) during , antepartum ([facility]) O24.414 Return OB: Patient presents today [...] of: LEELEE Keita documented in this encounter [facility] 04-25-2025 History of Present illness Narrative Maternal- Medicine Consultation VIDEO Patient is present at home, provider present at [facility] HISTORY OF PRESENT ILLNESS: Fannie Conley [...] on right. She is following urology through [facility]. Her pain and symptoms have improved, are [...] each meal., Disp: , Rfl: blood-glucose meter [facility], 4 (four) times a day. Use to [...] route., Disp: , Rfl: lancets (LANCETS,ULTRA THIN) [facility], Use to check blood sugar 4 times [...] Delivery recommendations : - Recommend delivery at [id number] - Discuss delivery if estimated weight is [...] values to us weekly by e-mail to: [email or web address] or by fax to: [phone] Devika Luu PA-C Maternal- Medicine Office phone: [phone] Devika Luu PA-C 04/25/25 1145 documented in this encounter [facility] 04-25-2025 Miscellaneous Notes LINING MAKER HAND CALLED PATIENT. NO ANSWER. LEFT VM ASKING THE PATIENT TO EMAIL US HER BLOOD GLUCOSE LOGS FOR HER UPCOMING APPOINTMENT WITH DEVIKA MARTINEZ. documented in this encounter [facility] 04-25-2025 Telephone encounter Note LINING MAKER HAND CALLED PATIENT. NO ANSWER. LEFT VM ASKING THE PATIENT TO EMAIL US HER BLOOD GLUCOSE LOGS FOR HER UPCOMING APPOINTMENT WITH DEVIKA MARTINEZ. [facility] 04-20-2025 Miscellaneous Notes Left message for patient that M provider reviewed blood sugar logs and no changes are needed at this time. Call back number provided. documented in this encounter [facility] 04-20-2025 Telephone encounter Note Left message for patient that MFM provider reviewed blood sugar logs and no changes are needed at this time. Call back number provided. [facility] 04-18-2025 History of Present illness Narrative Reason for Appointment: Patient ID: Fannie Conley is a 29 y.o. female who presents for Routine Visit Patient presents today for Return OB appointment. MEDICATIONS Current Outpatient Medications Medication Instructions Alcohol Swabs (Alcohol Prep Pad) 70 % pads 1 Pad, Topical, Daily, Use four times daily to check FSBS. Blood Glucose Monitoring Suppl (D-Tabber Glucometer) w/Device kit 1 kit, Does not [...] Medical History: Diagnosis Date SAB (spontaneous ) ([facility]) 10/2021 HISTORY PAST MEDICAL HISTORY SOCIAL HISTORY Past Medical History: Diagnosis Date SAB (spontaneous ) ([facility]) 10/2021 Social History Tobacco Use Smoking [...] nursing note reviewed. Exam conducted with a animal taxonomist present. Vitals: There is no height or weight on file to calculate BMI. BP: No LMP recorded. Patient is . ASSESSMENT & PLAN ICD-10-CM 1. Third trimester ([facility]) Z34.93 2. 30 weeks gestation of ([facility]) Z3A.30 Return OB: Patient presents today [...] Cain Donaldson DO documented in this encounter [facility] 04-12-2025 Miscellaneous Notes Called pt to discuss her insulin change. Devika Luu reviewed her blood sugars and would like her to increase her lantus in the evening to 25 units. Pt verbalized understanding and will start tonight. She will send in new blood sugars next week. documented in this encounter [facility] 04-12-2025 Telephone encounter Note Called pt to discuss her insulin change. Devika Luu reviewed her blood sugars and would like her to increase her lantus in the evening to 25 units. Pt verbalized understanding and will start tonight. She will send in new blood sugars next week. [facility] 04-11-2025 History of Present illness Narrative BG levels evaluated - insulin adjusted Devika Luu PA-C 04/11/25 1234 documented in this encounter [facility] 03-30-2025 History of Present illness Narrative REASON FOR OFFICE VISIT: Video Visit via Real-time Synchronous Audiovisual Provider Location: [facility] AT [address] [phone] Patient Location: Patient's home Video Visit Consent [...] that there are some limitations compared to wmuf-hz-sdwg evaluations. The patient consented to the presence [...] pain. +FM. She is being followed at [facility] due to GDMA2. States she is [...] each meal., Disp: , Rfl: blood-glucose meter [facility], 4 (four) times a day. Use to [...] route., Disp: , Rfl: lancets (LANCETS,ULTRA THIN) [facility], Use to check blood sugar 4 times daily. Fasting in the morning, and 1 hour after each meal., Disp: , Rfl: PNV no.153/FA/om3/dha/epa/fish ( GUMMIES ORAL), Take 2 tablets by mouth in the morning., Disp: , Rfl: LABS: Lab Results Component Value Date CREATININE 0.73 01/06/2016 Lab Results Component Value Date TSH 3.31 11/24/2020 No results found for: [id number] Lab Results Component Value Date CREATININE 0.73 [...] values to us weekly by e-mail to: [email or web address] or by fax to: [phone] TIME OF CONSULTATION: 15 minutes with the patient, >50% in discussion and counseling, coordination of care which was [id number], review of records and communication back to referring provider. HOWARD Whitman 03/30/25 1344 documented in this encounter [facility] 03-30-2025 History of Present illness Narrative Reason [...] test 4. Factor 5 Leiden mutation, heterozygous ([facility]) D68.51 US OB follow up transabdominal approach [...] George Scherer NP documented in this encounter [facility] 03-22-2025 Miscellaneous Notes Called [...] sugars next week. documented in this encounter [facility] 03-22-2025 Telephone encounter Note Called pt [...] send in new blood sugars next week. [facility] 03-16-2025 Miscellaneous Notes Received BG results and all but 4 are in target range. No pattern noted. Called and left message of praise for all efforts and to call if questions. To send next week again. No changes. Continue your current insulin dose for this week. documented in this encounter [facility] 03-16-2025 Telephone encounter Note Received BG results and all but 4 are in target range. No pattern noted. Called and left message of praise for all efforts and to call if questions. To send next week again. No changes. Continue your current insulin dose for this week. [facility] 03-11-2025 Miscellaneous Notes Summary: [facility] Blood Glucose Log & Insulin Dose Change Called and spoke with Merna who did receive message from early this week about BG log reviewed and increased Lantus evening dose to 19 Units daily. Apologized for not returning call noting life has been busy, hectic with foster infant placement. Denied any questions. documented in this encounter [facility] 03-11-2025 Telephone encounter Note Summary: [facility] Blood Glucose Log & Insulin Dose Change Called and spoke with Merna who did receive message from early this week about BG log reviewed and increased Lantus evening dose to 19 Units daily. Apologized for not returning call noting life has been busy, hectic with foster placement. Denied any questions. [facility] Work Phone: 03-07-2025 Miscellaneous Notes Called pt [...] for this week. documented in this encounter [facility] 03-07-2025 Telephone encounter Note Called pt to discuss her insulin change for this week and received voicemail. Left her a message that Dr Wade reviewed her blood sugars and would like her to increase her lantus in the evening to 19 units. Asked her to please call back to verify she got this new insulin change for this week. [facility] 03-03-2025 History of Present illness Narrative [...] urine order. [facility]. Patient voiced that insulin was just increased to 17 units at [facility] yesterday. Patient to return to clinic 4 weeks for routine OB. Documented by Bee Parkinson LPN on behalf of: Cain Donaldson DO documented in this encounter [facility] 03-01-2025 Miscellaneous Notes Called and notified patient that Pat MCKOY reviewed her blood sugar log and would like her to increase her Lantus to 17 units in the evening. Encouraged patient to write down what she is eating when having elevations greater than 140. Patient verbalized understanding. documented in this encounter [facility] 03-01-2025 Telephone encounter Note Called and notified patient that Pat MCKOY reviewed her blood sugar log and would like her to increase her Lantus to 17 units in the evening. Encouraged patient to write down what she is eating when having elevations greater than 140. Patient verbalized understanding. [facility] 02-24-2025 History of Present illness Narrative REASON FOR OFFICE VISIT: Video Visit via Real-time Synchronous Audiovisual Provider Location: [facility] AT [address] [phone] Patient Location: Patient's home Video [...] that there are some limitations compared to aecq-eu-dfvp evaluations. The patient consented to the presence [...] chest pain. She is being followed at [facility] [...] each meal., Disp: , Rfl: blood-glucose meter [facility], 4 (four) times a day. Use to [...] route., Disp: , Rfl: lancets (LANCETS,ULTRA THIN) [facility], Use to check blood sugar 4 times daily. Fasting in the morning, and 1 hour after each meal., Disp: , Rfl: PNV no.153/FA/om3/dha/epa/fish ( GUMMIES ORAL), Take 2 tablets by mouth in the morning., Disp: , Rfl: LABS: Lab Results Component Value Date CREATININE 0.73 01/06/2016 Lab Results Component Value Date TSH 3.31 11/24/2020 No results found for: [id number] Lab Results Component Value Date CREATININE 0.73 [...] values to us weekly by e-mail to: [email or web address] or by fax to: [phone] TIME OF CONSULTATION: 25 minutes with the patient, >50% in discussion and counseling, coordination of care which was [id number], review of records and communication back to referring provider. HOWARD Whitman 02/24/25 7409 documented in this encounter [facility] [facility] 02-17-2025 Miscellaneous Notes Notified patient by phone of low risk CFDNA results. My direct phone number was given in case any questions arise. documented in this encounter [facility] 02-17-2025 Telephone encounter Note Notified patient by phone of low risk CFDNA results. My direct phone number was given in case any questions arise. [facility] 02-15-2025 Miscellaneous Notes Called and spoke with patient regarding blood sugar log. Noted 6 elevations after insulin change to Lantus last week- 3 fastings and 3 PP (1 was 140). Patient reports last 2 days fasting was 85 and 93. Continues to try dietary changes. Encouraged patient to send in another log next week. documented in this encounter [facility] 02-15-2025 Telephone encounter Note Called and spoke with patient regarding blood sugar log. Noted 6 elevations after insulin change to Lantus last week- 3 fastings and 3 PP (1 was 140). Patient reports last 2 days fasting was 85 and 93. Continues to try dietary changes. Encouraged patient to send in another log next week. [facility] 02-08-2025 History of Present illness Narrative [...] clinic Have you been seen here at [facility] in a previous ? No Recent ER visits or hospitalizations? No Bring blood sugar log or meter with you today? (Please bring them with you for every visit at [facility]) N/A Flu vaccine (Sep-January)? Any concerns that [...] 5day embryo transfer on 10/07/2024, JANIYA 06/25/2025. SHARED SERVICES AND OUTSOURCING MANAGER , no genetic testing Prediabetes (A1c 5.9% [...] in vitro fertilization (IVF) 2024 Suicide attempt ([facility]) SURGICAL HISTORY: Past Surgical History: Procedure Laterality [...] Types: Cigarettes Start date: 2020 Quit date: 2011 Years since quittin.2 Smokeless tobacco: Never Vaping [...] overall, although a single choroid plexus cyst (SHARED SERVICES AND OUTSOURCING MANAGER) is visualized. We discussed this finding. CPCs [...] send in blood glucose logs weekly to [facility] Recommend baseline HELLP labs including CBC, CMP, urine protein creatinine ratio, through primary OB Incomplete level 2 anatomy ultrasound echocardiogram, attempt completion in 4 weeks with [facility] Recommend growth ultrasounds every 4 weeks following completion of level 2 anatomy ultrasound, through primary OB Recommend twice weekly testing starting at 32 weeks gestation, through primary OB Delivery recommendations : Recommend delivery at [id number] Discuss delivery if estimated weight is >4500g [...] developing diabetes later on. Monitor for depression [facility] office follow up already scheduled in 3 weeks DISPOSITION: At this point the patient is in complete care of her natural history collections curator. Patient does have ultrasound and office visit scheduled with us. Thank you for allowing me to participate in the care of Presleycristinatrace Conley. If there any questions please do not hesitate to contact us. Total time spent was 42 minutes: Preparing to see the patient (e.g., review of tests) Obtaining and/or reviewing separately obtained history Performing a medically appropriate examination and/or evaluation Counseling and educating the patient/family/caregiver Ordering medications, tests, or procedures Referring and communicating with other health clinical care manager (not separately reported) Documenting clinical information in the electronic or other health record Jaida Chadwick, MD Maternal- Medicine [facility] [address] [facility] [address] [place] [address] [facility], the CDC, and other organizations representing maternal and public health professionals recommend that , , and lactating people and those considering receive the COVID-19 vaccination. Vaccination is the best method to reduce maternal and complications of SARS-CoV-2 infection. This document was created with myEDmatch technology. Though I make every effort to review the dictation as it is transcribed, on occasion the spoken word can be misinterpreted by the technology leading to inappropriate words, phrases, or sentences. This note is addressed to the requesting provider as a consultation for clinical guidance. Specific medical abbreviations are occasionally used and those are generally approved by the [place]?Board of?Obstetrics and?Gynecology?as well as?Shaji hutchinson abbreviations. The above plan of care was based solely on the diagnoses for which a consultation was requested. ?More frequent testing may be indicated based on her other medical/obstetrical conditions. The management of other or medical conditions is beyond the scope of requested consultation and will continue to be followed by the primary natural history collections curator or primary care provider. Note to patient: The 21st Century Cures Act makes medical notes like [...] Patient tolerated well. documented in this encounter [facility] 02-03-2025 Miscellaneous Notes Received call from Nurse at Dr Donaldson's office who states they do not have any records of genetic testing. Forest Officer places call to Dr Pena's office at [facility] to inquire if they have any records of genetic testing for this - they also do not have any record of genetic testing. documented in this encounter [facility] 02-03-2025 Telephone encounter Note Received call from Nurse at Dr Donaldson's office who states they do not have any records of genetic testing. Forest Officer places call to Dr Pena's office at [facility] to inquire if they have any records of genetic testing for this - they also do not have any record of genetic testing. [facility] 02-03-2025 Miscellaneous Notes Left voicemail for BELA Gamboa at Dr Donaldson's office requesting genetic testing that was completed prior to IVF be faxed over to my attention. documented in this encounter [facility] 02-03-2025 Telephone encounter Note Left voicemail for BELA Gamboa at Dr Donaldson's office requesting genetic testing that was completed prior to IVF be faxed over to my attention. [facility] 01-26-2025 History of Present illness Narrative [...] YES Have you been seen here at [facility] in a previous ? NO Recent ER visits or hospitalizations? NO Bring blood sugar log or meter with you today? (Please bring them with you for every visit at [facility]) YES, SEE LOGS. Flu vaccine (Sep-January)? YES [...] pain. +FM. She is being followed at [facility] due to GDMA2. States she is [...] mouth daily with breakfast., Disp: , Rfl: [facility] no.153/FA/om3/dha/epa/fish ( GUMMIES ORAL), Take 2 tablets by mouth in the morning., Disp: , Rfl: LABS: Lab Results Component Value Date CREATININE 0.73 01/06/2016 Lab Results Component Value Date TSH 3.31 11/24/2020 No results found for: [id number] Lab Results Component Value Date CREATININE 0.73 [...] baby. Little research has been done on terminologist effects of Metformin exposure to the fetus. [...] values to us weekly by e-mail to: [email or web address] or by fax to: [phone] TIME OF CONSULTATION: 35 minutes with the patient, >50% in discussion and counseling, coordination of care which was [id number], review of records and communication back to referring provider. HOWARD Whitman 01/26/25 1606 documented in this encounter [facility] 01-26-2025 History of Present illness Narrative Nutritional Assessment Form Date: 01/26/2025 JANIYA: Estimated Date of Delivery: 06/24/25 EGA: 18w5d Past Medical History: Diagnosis Date Depression product of in vitro fertilization (IVF) 2024 Suicide attempt ([facility]) OB History 1 Para 0 Term 0 [...] syringe by miscellaneous route. 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 Current Exercise program walking Who prepares the meal pt Who purchase food at your home? pt Equipment use for cooking/food storage has all Food Assistance(Ex.WIC, Food [place]) knows about Dining out Yes 1-2 times [...] care for you: OB Provider Family Doctor Sprinkler Driver Name: Mendoza Name: No primary care provider [...] demonstration Is there anything about your culture, advent, or personal beliefs we need to know about to care for you: none Primary Language spoken: Rwandan [22] Primary Language for learning: Rwandan Are you currently in a relationship where you are physically hurt, threatened or made to fee afraid? [] Yes [x] No Sanitor needed? [] Yes [x] No Marital status/Living [...] If yes, where: On thge following scale, [place] the number, which describes your current level [...] 5.9 and she had a repeat hgba1c 2/20/25 and it was 4.9. random today was [...] was 60min. . [facility] Instructions Sonya Lomax RN - 01/26/2025 [...] HOURS WHILE AWAKE [facility] History of Present illness Narrative Reason [...] nursing note reviewed. Exam conducted with a animal taxonomist present. Vitals: There is no height or [...] of: LEELEE Keita documented in this encounter [facility] 12-29-2024 Miscellaneous Notes I left a message for pt to call to schedule her us/ and consult, I will call her again documented in this encounter [facility] 12-29-2024 Telephone encounter Note I left a message for pt to call to schedule her us/ and consult, I will call her again [facility] 12-23-2024 History of Present illness Narrative [...] nursing note reviewed. Exam conducted with a animal taxonomist present. Vitals: There is no height or [...] undercooked meat, and stay away from [facility]. Patient has been consulted regarding any further do's and don'ts of . Patient voiced understanding and all questions and concerns were answered. Patient has done 4 rounds of invitro to conceive this . 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 Patient will be referred to [facility] and can discuss medication at that time [...] Cain Donaldson DO documented in this encounter [facility] 11-25-2024 History of Present [...] undercooked meat, and stay away from [facility]. Patient has also been advised to not change litter boxes and eat 6 small meals a day. Patient has been consulted regarding the do's and don'ts of . Patient was given labs and all questions and concerns were answered. Pt declined the [employer] gender/genetics form. Pt did state she is [...] Future Appointments Appointment Date:11/25/2025 09:00:00 AM Scheduled Provider:Jonathan GORE, Aissatou Nguyen Location:[facility] [place] Appointment Type:URO Office Visit [facility] [place] Evaluation note No assessment inform ation available [facility] Work Phone: Evaluation note Diagnosis Missed [...] vitro fertilization, antepartum documented in this encounter [facility] HealthcareEvaluation note* Diagnosis Well woman exam with routine gynecological exam Routine gynecological examination 17 weeks gestation of Second trimester state, incidental Exposure to STD Vaginal discharge Leukorrhea, not specified as infective documented in this encounter [facility] HealthcareEvaluation note* Diagnosis Insulin controlled gestational diabetes mellitus (GDM) in second trimester- Primary documented in this encounter [facility] SystemEvaluation note* Diagnosis Insulin controlled gestational diabetes mellitus (GDM) in second trimester documented in this encounter [facility] System[facility] note* Diagnosis Insulin controlled gestational diabetes mellitus (GDM) in second trimester- Primary Prediabetes in mother during 20 weeks gestation of Choroid plexus cyst of fetus affecting care of mother, antepartum, single or unspecified fetus Heterozygous factor V Leiden affecting in second trimester, antepartum Severe obesity due to excess calories affecting , antepartum ([facility]) Bipolar disorder, in full remission, most recent episode depressed documented in this encounter [facility] SystemEvaluation note* Diagnosis Insulin controlled gestational diabetes mellitus (GDM) in second trimester- Primary Choroid plexus cyst of fetus affecting care of mother, antepartum, single or unspecified fetus Heterozygous factor V Leiden affecting in second trimester, antepartum Severe obesity due to excess calories affecting , antepartum ([facility]) documented in this encounter [facility] SystemEvaluation note* Diagnosis Insulin controlled gestational diabetes mellitus (GDM) in second trimester- Primary Recurrent major depressive disorder, in partial remission Bipolar 1 disorder ([facility]) Prediabetes in mother during documented in this encounter [facility] SystemEvaluation note* Diagnosis Insulin controlled gestational diabetes mellitus (GDM) in second trimester Prediabetes in mother during documented in this encounter [facility] SystemEvaluation note* Diagnosis 23 weeks gestation of Second trimester state, incidental induced hypertension, antepartum Transient hypertension of , antepartum Insulin controlled gestational diabetes mellitus (GDM) during , antepartum documented in this encounter [facility] HealthcareEvaluation note* Diagnosis Second trimester [...] in mother during documented in this encounter [facility] System[facility] note* Diagnosis Insulin controlled gestational diabetes mellitus (GDM) in second trimester Prediabetes in mother during documented in this encounter [facility] note* Diagnosis Third trimester (HHS-HCC) state, incidental 30 weeks gestation of (HHS-HCC) documented in this encounter [facility]* Diagnosis Insulin controlled gestational diabetes mellitus (GDM) in third trimester- Primary documented in this encounter [facility] System[facility] note* Diagnosis size inconsistent with dates (HHS-HCC)- Primary Third trimester (HHS-HCC) state, incidental 32 weeks gestation of (HHS-HCC) Conceived by in vitro fertilization Factor 5 Leiden mutation, heterozygous (HHS-HCC) Insulin controlled gestational diabetes mellitus (GDM) during , antepartum (HHS-HCC) documented in this encounter [facility] Healthcare[facility]* Diagnosis Insulin controlled gestational diabetes mellitus (GDM) in second trimester- Primary documented in this encounter [facility]* Diagnosis Insulin controlled gestational diabetes mellitus (GDM) in second trimester- Primary documented in this encounter [facility]* Diagnosis 34 weeks [...] third trimester- Primary documented in this encounter [facility]* Diagnosis Third trimester [...] available for this section [facility] InstructionsNot on filedocumented in this encounter [facility] [...] available for this section [facility] Reason for referral (narrative)No reason for referral [facility] Work Phone: Chief Complaint and Reason for Visit Chief Complaint right knee injury Chief Complaint Admit Date Unknown June 22, 2025 2: 39pm Advance Directives No Advanced Directives Records Found [...] 2024 End: April 06, 2024 Team Status: Inactive Member Role Status Dates Cain Donaldson DO Attending Provider Active Start : June 22, 2025 End: June 22, 2025 Goals (unrecognized section and content) Goals may [...] this encounterNot on filedocumented as of this encounterGoals may be documented in an alternate section Reason for Visit (unrecogniz ed section and content) Reason Comments Amenorrhea Reason Comments Routine Visit Reason Comments Gestational Diabetes Specialty Diagnoses / Procedures Referred By [place] may Referred To Contact [facility]aternal [facility] Medicine Diagnoses Insulin controlled gestational diabetes mellitus (GDM) in second trimester Cain Donaldson DO Phone: tel: fax: [facility]- Medicine at [facility] [address] [place] [address] Phone: tel: fax: Referral ID Status Reason Start Date Expiration Date Visits Requested Visits Authorized [id number] Pending Review Specialty Services Required 01/11/2025 01/11/2026 1 1 Reason Comments Med Change Request Reason Comments GDMA2 Fertility Preservation Factor V Leiden Mutation INFORMATION SOURCE (unrecogn ized section and content) DATE CREATED AUTHOR 03/11/2025 Latrice cedeño DATE CREATED AUTHOR AUTHOR'S ORGANIZ ATION 04/16/2025 [facility] DATE CREATED AUTHOR AUTHOR'S ORGANIZ ATION 05/25/2025 [facility] DATE CREATED AUTHOR AUTHOR'S ORGANIZ ATION 05/29/2025 [facility] DATE CREATED AUTHOR AUTHOR'S ORGANIZ ATION 06/05/2025 [facility] DATE CREATED AUTHOR AUTHOR'S ORGANIZ ATION 06/22/2025 [facility] DATE CREATED AUTHOR AUTHOR'S ORGANIZ ATION 06/25/2025 [facility] FOR RECORDS PERTAINING TO PATIENTS WHO ARE [...] ON THE PRIMARY CLINICAL RECORDS. [facility]ulate [facility]. provides no warranty or guarantee of the accuracy or completeness of information in this document.
--- NOTE | 2025-06-27 17:16 | PC.NURSE ---
Cristina Brown, 5day old daughter Ida, as well as, Vasu 4mo foster child arrive for follow up. Both parents report doing well very busy, but doing well Kevin states feels well, taking 300mg Labetalol BID, No headache, visual disturbance or epigastric discomfort. Has +3, pitting edema to mid thigh, on abdominal apron, as well as breasts. Blood pressure are high, taken X3, 10 min apart. T.C. to Fr Donaldson, returns call within 5 minutes. Given assessment, VS and med taken at 9AM and 9PM. Dr requests pt increase dosing to TID. Labetalol 300mg 9am, 3pm, 9pm. Pt to take extra dose when gets home today and last dose around 10pm. Incision has dressing on it from my insurance company . Not able to view actual incision line. No redness, noted around dressing. (none stick pad, and Opsite dressing for wound healing) was sent to her by insurance [employer] [facility] for post surgical incision care. Baby Ida (Jessica) awake and alert. Color pink, no evidence of high bilirubin, VSS and assessment WNL. Switched to formula feeds as mom's supply has dropped from initial output. Obtaining 1/4 oz combined. Discussed fluid retention, encouraged breast massage and lymphatic massage to aid in removal of edema. Verbalized understanding. Family leaves ambulatory, Kevin to see Dr Donaldson in office in AM as he requested. Stressed importance of knowing S/S of elevated BP, and when to all squad/go to ED for elevated care. Pt and verbalized understanding. Family home.
[2025-06-27 17:17] VITALS: BP 152/102; PULSE 63; TEMP 36.8; O2SAT 98
== END 2025-06-27 17:26 | disposition home or self-care (01) ==
LOC: FBCO 08:33
PROVIDERS: Visit Provider Obstetrics & Gynecology
DX: Z39.1 Encounter for care and examination of lactating mother (principal)